=== PATIENT | male | born 1960 | race Caucasian/White ===

== ENCOUNTER 2017-04-18 15:44 | Outpatient (CLI) | payer MEDICAID | END 2017-04-18 15:45 | disposition critical access hospital (66) | LOC: EMS 15:44 | PROVIDERS: ATTEND Surgery | DX: R41.82 Altered mental status, unspecified (principal); R26.81 Unsteadiness on feet; R47.81 Slurred speech; W18.39XA Other fall on same level, initial encounter; Y92.480 Sidewalk as the place of occurrence of the external cause | CPT/HCPCS: A0425; A0429 ==

== ENCOUNTER 2017-04-18 16:00 | Emergency (ER) | payer MEDICAID ==
--- NOTE | 2017-04-18 16:19 | ED Physician Documentation ---
History of Present Illness - Stated complaint Stated Complaint: FALL/ HEAD INJURY - Chief complaint Chief Complaint: General - History obtained from History obtained from: Patient, EMS, Police - History of Present Illness Timing: Today Pain level max: 0 Pain level now: 0 Improved by: nothing Worsened by: nothing - Additonal information Additional information: Patient was talking to police today and reportedly fell backwards striking his head. He denies any injury at this time and states that his head doesn't hurt. States his buttocks is sore from his new wallet. Drank a 6 pack of beer today. States no nausea or vomiting. HR noted to be 140 with EMS, possible afib. States history of COPD. Patient states that he does have a history of atrial fibrillation in the past. Review of Systems Ten Systems: 10 systems reviewed and negative Constitutional: denies: Fever, Chills Ears: denies: Ear pain Nose: denies: Rhinorrhea / runny nose, Congestion Throat: denies: Sore throat Cardiac: denies: Chest pain / pressure Respiratory: denies: Cough GI: denies: Nausea, Vomiting, Diarrhea Skin: denies: Rash Musculoskeletal: denies: Neck pain, Back pain Neurologic: denies: Headache PD PAST MEDICAL HISTORY - Past Medical History Cardiovascular: Atrial fibrillation Respiratory: Shortness of breath Endocrine/Autoimmune: None GI: None : None Psych: Depression Musculoskeletal: None Derm: None - Past Surgical History HEENT: Tonsil/Adenoidectomy - Present Medications Home Medications: Ambulatory Orders Medication Instructions Recorded Confirmed Citalopram [CeleXA] 20 mg ORAL DAILY 07/11/13 07/11/13 - Allergies Allergies/Adverse Reactions: Allergies Allergy/AdvReac Type Severity Reaction Status Date / Time No Known Drug Allergies Allergy Verified 04/18/17 16:10 PD ED PE NORMAL - Vitals Vital signs reviewed: Yes - General General: Alert and oriented X 3, No acute distress - HEENT HEENT: Atraumatic, PERRL, EOMI, Ears normal, Moist mucous membranes, Other ( glossy eyes) - Neck Neck: Supple, no meningeal sign, No bony TTP - Cardiac Cardiac: Other (tachycardic) - Respiratory Respiratory: No respiratory distress, Other (B wheezing) - Abdomen Abdomen: Soft, Non tender, Non distended - Back Back: No spinal TTP - Derm Derm: Warm and dry - Extremities Extremities: Normal ROM s pain, Other (Normal gait) - Neuro Neuro: Alert and oriented X 3 - Psych Psych: Normal mood, Normal affect Results - Vitals Vitals: Vital Signs - 24 hr 04/18/17 04/18/17 04/18/17 16:08 17:34 17:40 Temperature 36.7 C 37.5 C Heart Rate 66 130 H Respiratory 18 22 Rate Blood Pressure 98/73 127/83 H O2 Saturation 96 94 88 L 04/18/17 04/18/17 17:44 18:40 Temperature 36.5 C Heart Rate 87 91 Respiratory 17 19 Rate Blood Pressure 107/72 100/77 O2 Saturation 95 99 Oxygen O2 Source Nasal cannula - EKG (time done) 1610 Rate: Rate (enter#) (135) Rhythm: Atrial fibrillation [place]: LAD, Anterior hemiblock (LAFB) QRS: Normal - Labs Labs: Laboratory Tests 04/18/17 04/18/17 04/18/17 16:30 16:30 16:30 WBC 11.2 H RBC 4.16 L Hgb 14.4 Hct 41.4 L MCV 99.7 H MCH 34.7 H MCHC 34.8 RDW 14.1 Plt Count 224 MPV 8.7 Neut # 9.0 H Lymph # 1.3 L [place] # 0.9 Eos # 0.1 Baso # 0.0 Absolute Nucleated RBC 0.00 Nucleated RBC % 0.0 Sodium 136 Potassium 3.6 Chloride 99 L Carbon Dioxide 24 Anion Gap 13.0 BUN 13 Creatinine 0.8 Estimated GFR (MDRD) 100 Glucose 100 Calcium 8.2 L Total Bilirubin 0.7 AST 53 H ALT 54 Alkaline Phosphatase 64 Troponin I 0.07 Total Protein 7.4 Albumin 4.1 Globulin 3.3 Albumin/Globulin Ratio 1.2 Lipase 40 Urine Opiates Screen Ur Oxycodone Screen Urine Methadone Screen Ur Propoxyphene Screen Ur Barbiturates Screen Ur Tricyclics Screen Ur Phencyclidine Scrn Ur Amphetamine Screen U Methamphetamines Scrn U Benzodiazepines Scrn Urine Cocaine Screen U Cannabinoids Screen Ethyl Alcohol 408.0 04/18/17 17:53 WBC RBC Hgb Hct MCV MCH MCHC RDW Plt Count MPV Neut # Lymph # [place] # Eos # Baso # Absolute Nucleated RBC Nucleated RBC % Sodium Potassium Chloride Carbon Dioxide Anion Gap BUN Creatinine Estimated GFR (MDRD) Glucose Calcium Total Bilirubin AST ALT Alkaline Phosphatase Troponin I Total Protein Albumin Globulin Albumin/Globulin Ratio Lipase Urine Opiates Screen NEGATIVE Ur Oxycodone Screen NEGATIVE Urine Methadone Screen NEGATIVE Ur Propoxyphene Screen NEGATIVE Ur Barbiturates Screen NEGATIVE Ur Tricyclics Screen NEGATIVE Ur Phencyclidine Scrn NEGATIVE Ur Amphetamine Screen NEGATIVE U Methamphetamines Scrn NEGATIVE U Benzodiazepines Scrn NEGATIVE Urine Cocaine Screen NEGATIVE U Cannabinoids Screen POSITIVE H Ethyl Alcohol PD MEDICAL DECISION MAKING - ED course Complexity details: reviewed results, re-evaluated patient, considered differential, d/w patient, d/w family ED course: Patient is a 57-year-old male who presents to the emergency department after a possible fall earlier today. No scalp hematomas. No headache. No vomiting. GCS 15. He is intoxicated. However he ambulates with a steady gait. He is a chronic alcoholic. Found to be in atrial fibrillation with rapid ventricular response. Symptoms resolved with a dose of Cardizem.Patient states that he will follow-up with his doctor for further care. Does not want to be observed any further and wants to go home at this time. Patient counseled regarding signs and symptoms for which I believe and urgent re-evaluation would be necessary. Patient with good understanding of and agreement to plan and is comfortable going home at this time This document was made in part using voice recognition software. While efforts are made to proofread this document, sound alike and grammatical errors may occur. Departure - Departure Disposition: 01 Home, Self Care Clinical Impression: Alcohol intoxication Qualifiers: Complication of substance-induced condition: uncomplicated Qualified Code(s): F10.920 - Alcohol use, unspecified with intoxication, uncomplicated Afib Qualifiers: Atrial fibrillation type: chronic Qualified Code(s): I48.2 - Chronic atrial fibrillation Condition: Good Instructions: ED Afib, ED Alcohol Intoxication Follow-Up: your,doctor in 1 week [Other] Comments: Return if you worsen. Discharge Date/Time: 04/18/17 18:47
[2017-04-18] MEDS ORDERED: SODIUM CHLORIDE 0.9% 1,000 ML IV ONE (16:20)
[2017-04-18] MEDS ORDERED: diltiaZEM INJ 5 MG/ML VIAL IVP STA (16:44)
[2017-04-18 16:49] LABS: ALBUMIN 4.1 g/dL (3.2-5.5); ALBUMIN/GLOBULIN RATIO 1.2 (1.0-2.2); BILIRUBIN,TOTAL 0.7 mg/dL (0.2-1.0); CALCIUM 8.2 mg/dL (8.5-10.3); CREATININE 0.8 mg/dL (0.6-1.2); TOTAL PROTEIN 7.4 g/dL (6.7-8.2)
[2017-04-18 16:52] LABS: BASOPHILS % (AUTO) 0.4 %; EOSINOPHILS # (AUTO) 0.1 10^3/uL (0.0-0.7); EOSINOPHILS % (AUTO) 0.6 %; HGB - HEMOGLOBIN 14.4 g/dL (14.0-18.0); LYMPHOCYTES # (AUTO) 1.3 10^3/uL (1.5-3.5); LYMPHOCYTES % (AUTO) 11.2 %; MEAN CORPUSCULAR HEMOGLOBIN 34.7 pg (27.0-31.0); MEAN CORPUSCULAR HGB CONC 34.8 g/dL (32.0-36.0); MEAN CORPUSCULAR VOLUME 99.7 fL (80.0-94.0); MEAN PLATELET VOLUME 8.7 fL (7.4-11.4); MONOCYTES # (AUTO) 0.9 10^3/uL (0.0-1.0); MONOCYTES % (AUTO) 7.7 %; NEUTROPHILS % (AUTO) 80.1 %; PLT - PLATELET COUNT 224 10^3/uL (130-450); RED BLOOD COUNT 4.16 10^6/uL (4.70-6.10); RED CELL DISTRIBUTION WIDTH 14.1 % (12.0-15.0); WHITE BLOOD COUNT 11.2 x10^3/uL (4.8-10.8)
[2017-04-18 18:11] LABS: MUDS CUTOFF CONCENTRATIONS CUTOFF CONC BELOW:
[2017-04-18 18:32] LABS: AMPHETAMINE SCREEN,URINE NEGATIVE (NEGATIVE); BENZODIAZEPINES SCREEN, URINE NEGATIVE (NEGATIVE); COCAINE SCREEN URINE NEGATIVE (NEGATIVE); METHADONE SCREEN, URINE NEGATIVE (NEGATIVE); METHAMPHETAMINES SCREEN, URINE NEGATIVE (NEGATIVE); OPIATE SCREEN, URINE NEGATIVE (NEGATIVE); OXYCODONE SCREEN, URINE NEGATIVE (NEGATIVE); PROPOXYPHENE SCREEN, URINE NEGATIVE (NEGATIVE); TRICYCLIC ANTIDEPRESSANT,URINE NEGATIVE (NEGATIVE)
[2017-04-18 18:41] VITALS: BP 100/77
== END 2017-04-18 18:47 | disposition home or self-care (01) ==
LOC: EDUNIT# → ED 16:00
DX: F10.229 Alcohol dependence with intoxication, unspecified (principal); I48.2 Chronic atrial fibrillation
CPT/HCPCS: 36415; 80053; 80306; 80307; 80320; 80329; 83690; 84484; 85025; 93005; 96361; 96374; 99284

== ENCOUNTER 2017-04-22 04:26 | Outpatient (CLI) | payer MEDICAID | END 2017-04-22 04:27 | disposition critical access hospital (66) | LOC: EMS 04:26 | PROVIDERS: ATTEND Surgery | DX: R06.02 Shortness of breath (principal); R05 Cough | CPT/HCPCS: A0425; A0427 ==

== ENCOUNTER 2017-04-22 04:43 | Inpatient (IN) | payer MEDICAID ==
[2017-04-22] MEDS ORDERED: ALBUTEROL NEB 2.5 MG/3 ML INH STA (04:51)
--- NOTE | 2017-04-22 05:55 | ED Physician Documentation ---
PD HPI DYSPNEA - Stated complaint Stated Complaint: RESP DISTRESS - Chief complaint Chief Complaint: Resp - History obtained from History obtained from: Patient, EMS - History of Present Illness Timing - onset: Enter time (01:00), Today Timing - onset during: Rest Timing - details: Abrupt onset Pain level max: 0 Pain level now: 0 Improved by: Rest Worsened by: Exertion, Laying flat, Coughing Associated symptoms: Cough, Bilateral edema, Anxiety. No: Chest pain / discomfort Similar symptoms before: Has not had sx before Recently seen: Emergency Dept (T+R from this ED few days ago for head injury, intoxicated, found to be in [facility] tx. with cardizem) - Additional information Additional information: staying at homeless residential, c/o rapid onset dyspnea at rest but worse with exertion and laying flat, onset 1 AM. denies h/o same Review of Systems Constitutional: reports: Reviewed and negative Eyes: reports: Reviewed and negative Ears: reports: Reviewed and negative Nose: reports: Reviewed and negative Throat: reports: Reviewed and negative Cardiac: reports: Pedal edema. denies: Chest pain / pressure, Palpitations Respiratory: reports: Dyspnea, Cough. denies: Hemoptysis, Wheezing GI: reports: Reviewed and negative : denies: Dysuria, Frequency Skin: reports: Reviewed and negative Musculoskeletal: reports: Extremity swelling. denies: Extremity pain Neurologic: reports: Reviewed and negative PD PAST MEDICAL HISTORY - Past Medical History Cardiovascular: Atrial fibrillation Respiratory: Shortness of breath Endocrine/Autoimmune: None GI: None : None Psych: Depression Musculoskeletal: None Derm: None - Past Surgical History HEENT: Tonsil/Adenoidectomy - Present Medications Home Medications: Ambulatory Orders Medication Instructions Recorded Confirmed Citalopram [CeleXA] 40 mg ORAL DAILY 07/11/13 04/22/17 Albuterol Sulfate [Proair Hfa 2 puffs INH Q4H 04/22/17 04/22/17 Inhaler] - Allergies Allergies/Adverse Reactions: Allergies Allergy/AdvReac Type Severity Reaction Status Date / Time No Known Drug Allergies Allergy Verified 04/22/17 04:50 - Social History Does the pt smoke?: Yes Smoking Status: Current every day smoker Does the pt drink ETOH?: Yes PD ED PE NORMAL - Vitals Vital signs reviewed: Yes - General General: Alert and oriented X 3, Well developed/nourished, Other (appears to be mildly dyspneic, abbreviated sentences in conversing) - HEENT HEENT: PERRL, EOMI, Moist mucous membranes - Neck Neck: Supple, no meningeal sign - Cardiac Cardiac: RRR, No murmur - Abdomen Abdomen: Soft, Non tender - Back Back: No CVA TTP - Derm Derm: No rash - Neuro Neuro: Alert and oriented X 3 PD ED PE EXPANDED - Respiratory Respiratory: Rales, Decreased breath sounds, Other (tachypneic) - Extremities Extremities: Pedal edema bilateral Results - Vitals Vitals: Oxygen O2 Source Nasal cannula Oxygen Flow Rate 3 - EKG (time done) No standard instances Rate: Rate (enter#) (132), Tachy Rhythm: Sinus tachycardia [place]: LAD Intervals: Normal ID QRS: Normal Ischemia: Normal ST segments, Q waves (inferior leads, V1-V4) Other comments: Other comments (1 waves noted on previous visit EKG (new in V4, although this could be due to lead placement)) - Labs Labs: Laboratory Tests 04/22/17 04/22/17 04/22/17 06:35 06:59 06:59 WBC 8.3 RBC 4.35 L Hgb 14.5 Hct 43.9 MCV 100.8 H MCH 33.3 H MCHC 33.0 RDW 13.9 Plt Count 222 MPV 8.5 Neut # 7.0 H Lymph # 0.7 L [place] # 0.6 Eos # 0.0 Baso # 0.1 Absolute Nucleated RBC 0.01 Nucleated RBC % 0.1 Sodium 137 Potassium 4.1 Chloride 102 Carbon Dioxide 23 Anion Gap 12.0 BUN 13 Creatinine 0.7 Estimated GFR (MDRD) 117 Glucose 111 H Calcium 8.6 Troponin I B-Natriuretic Peptide Influenza A (Rapid) Negative Influenza B (Rapid) Negative Influenza Types A,B Ag - 04/22/17 04/22/17 06:59 06:59 WBC RBC Hgb Hct MCV MCH MCHC RDW Plt Count MPV Neut # Lymph # [place] # Eos # Baso # Absolute Nucleated RBC Nucleated RBC % Sodium Potassium Chloride Carbon Dioxide Anion Gap BUN Creatinine Estimated GFR (MDRD) Glucose Calcium Troponin I 0.11 B-Natriuretic Peptide 1629 H Influenza A (Rapid) Influenza B (Rapid) Influenza Types A,B Ag - Rads (name of study) chest xray Radiology: Prelim report reviewed, See rad report PD MEDICAL DECISION MAKING - ED course Complexity details: reviewed results, re-evaluated patient, considered differential, d/w patient Departure - Departure Disposition: 66 [facility] DC/Xfer Clinical Impression: Congestive heart failure Qualifiers: Congestive heart failure type: unspecified Congestive heart failure chronicity : acute Qualified Code(s): I50.9 - Heart failure, unspecified Condition: Stable Discharge Date/Time: 04/22/17 10:35
--- NOTE | 2017-04-22 06:38 | XRAY Report ---
EXAM: CHEST RADIOGRAPHY EXAM DATE: 04/22/2017 06:31 AM. CLINICAL HISTORY: Cough, dyspnea. COMPARISON: None. TECHNIQUE: 2 views. FINDINGS: Lungs/Pleura: Large lung volumes consistent with emphysema. Pulmonary vascular congestion and interst itial edema. No definite pleural effusion. No pneumothorax. Mediastinum: Mild cardiomegaly. Aortic atherosclerosis. Other: None. IMPRESSION: 1. Emphysema and cardiomegaly. 2. Pulmonary vascular congestion and interstitial edema. [facility] Referring Provider Line: [phone] SITE ID: [id number]
--- NOTE | 2017-04-22 06:38 | XRAY Preliminary Report ---
Exam: XR CHEST 2 VIEW X-RAY IMPRESSION: 1. Emphysema and cardiomegaly. 2. Pulmonary vascular congestion and interstitial edema. [facility] SITE ID: [id number]
[2017-04-22 07:04] LABS: BASOPHILS # (AUTO) 0.1 10^3/uL (0.0-0.1); BASOPHILS % (AUTO) 0.6 %; EOSINOPHILS % (AUTO) 0.3 %; HGB - HEMOGLOBIN 14.5 g/dL (14.0-18.0); LYMPHOCYTES # (AUTO) 0.7 10^3/uL (1.5-3.5); LYMPHOCYTES % (AUTO) 7.9 %; MEAN CORPUSCULAR HEMOGLOBIN 33.3 pg (27.0-31.0); MEAN CORPUSCULAR VOLUME 100.8 fL (80.0-94.0); MEAN PLATELET VOLUME 8.5 fL (7.4-11.4); MONOCYTES # (AUTO) 0.6 10^3/uL (0.0-1.0); NEUTROPHILS % (AUTO) 84.2 %; PLT - PLATELET COUNT 222 10^3/uL (130-450); RED BLOOD COUNT 4.35 10^6/uL (4.70-6.10); RED CELL DISTRIBUTION WIDTH 13.9 % (12.0-15.0); WHITE BLOOD COUNT 8.3 x10^3/uL (4.8-10.8)
[2017-04-22 07:12] LABS: CALCIUM 8.6 mg/dL (8.5-10.3); CREATININE 0.7 mg/dL (0.6-1.2)
[2017-04-22] MEDS ORDERED: SODIUM CHLORIDE 0.9% 1,000 ML IV ONE (07:16)
[2017-04-22] MEDS ORDERED: LORazepam 2 MG/ML VIAL IVP STA (07:22)
[2017-04-22] MEDS ORDERED: FUROSEMIDE 40 MG/4 ML VIAL IVP STA (08:00)
[2017-04-22] MEDS ORDERED: TEMAZEPAM 15 MG CAPSULE PO PRN (08:16)
[2017-04-22] MEDS ORDERED: oxyCODONE 5 MG TABLET PO PRN (08:16)
[2017-04-22] MEDS ORDERED: PROCHLORPERAZINE 10 MG/2 ML VIAL IVP PRN (08:16)
[2017-04-22] MEDS ORDERED: NITROGLYCERIN 2% PASTE TOP STA (08:17)
--- NOTE | 2017-04-22 10:32 | HISTORY & PHYSICAL EXAMINATION ---
Chief Complaint - Chief Complaint Chief Complaint: Shortness of breath History of Present Illness - Admitted From Admitted From:: Outside (Pt is homeless) - History Obtained From Records Reviewed: yes History obtained from: Patient, Dr. Harley - History of Present Illness HPI Comment/Other: Mr. João Berry is a 57-year-old gentleman who presented to the [facility] emergency department early this morning with complaints of shortness of breath. He was at the emergency department for 5 days days previously with complaints of shortness of breath and chest pain and was found to be in atrial fibrillation. He was discharged home but unfortunately he has continued to get worse and now is back with severe shortness of breath at rest. At the emergency department a chest x-ray found pulmonary vascular congestion, cardiomegaly, and emphysematous changes. A BNP was found to be 1600 and his initial troponin was 0.11. The patient was given bronchodilators and steroids however remains dyspneic on room air and his oxygen saturation has been able to be raised to the low 90s on 3 L. He is also significantly tachycardic and tachypneic with crackles three quarters of the way up through his lungs.He will therefore be admitted to telemetry bed with the diagnosis of congestive heart failure. History - Past Medical History Cardiovascular: reports: Atrial fibrillation Respiratory: reports: COPD, Shortness of breath Endocrine/Autoimmune: reports: None GI: reports: None : reports: None Psych: reports: Depression Musculoskeletal: reports: None Derm: reports: None - Past Surgical History HEENT: reports: Tonsil/Adenoidectomy - Family & Social History Family History: Other family: Alive and Well (The patient was adopted and has no knowledge of his family's medical history.) Family History Comment/Other: Patient was adopted and has no idea of his family's medical history. Living arrangement: Homeless - Substance History Use: Uses substance without health or social issues: Cannabis Abuse: Recurrent use of substance despite neg consequences: Alcohol Abuse Issues: Intoxication Dependence: Experiences withdrawal or developed tolerances: Tobacco Tobacco Details: Cigarettes - POLST Patient has POLST: No POLST Status: Full Code Meds/Allgy - Home Medications Home Medications: Ambulatory Orders Medication Instructions Recorded Confirmed Citalopram [CeleXA] 40 mg ORAL DAILY 07/11/13 04/22/17 Albuterol Sulfate [Proair Hfa 2 puffs INH Q4H 03/14/18 03/14/18 Inhaler] - Allergies Allergies/Adverse Reactions: Allergies Allergy/AdvReac Type Severity Reaction Status Date / Time No Known Drug Allergies Allergy Verified 04/22/17 04:50 Review of Systems - Constitutional Constitutional: reports: Weakness - Eyes Eyes: denies: Pain, Irritation, Blurred vision, Dipolpia - Ears, Nose & Throat Ears, Nose & Throat: denies: Ear pain, Hearing loss, Hearing aids, Tinnitus, Vertigo, Nasal pain, Nasal discharge - Cardiovascular Cariovascular: reports: Irregular heart rate. denies: Palpitations, Chest pain , Edema, Syncope - Respiratory Respiratory: reports: Cough, Sputum production, Wheezing, SOB at rest, SOB with exertion. denies: Snoring, Hemoptysis, Orthopnea - Gastrointestinal Gastrointestinal: denies: Abdominal pain, Abdominal distention, Constipation, Diarrhea, Change in bowel habits, Rectal bleeding - Genitourinary Genitourinary: denies: Dysuria, Frequency, Urgency, Hematuria - Musculoskeletal Musculoskeletal: denies: Muscle pain, Back pain, Muscle aches, Stiffness - Integumentary Integumentary: denies: Rash, Pruritis, Lesions, Dryness - Neurological Neurological: denies: General weakness, Focal weakness, Headache, Dizziness - Psychiatric Psychiatric: denies: Depression, Anxiety, Suicidal, Hallucinations - Endocrine Endocrine: denies: Polyuria, Polydypsia, Polyphagia - Hematologic/Lymphatic Hematologic/Lymphatic: denies: Anemia, Bruising, Petechiae, Lymphadenopathy - All Other Systems All Other Systems: reports: Reviewed and negative Exam - Vital Signs Reviewed Vital Signs: Yes - Physical Exam General Appearance: positive: No acute distress, Alert Eyes Bilateral: positive: Normal inspection, PERRL, EOMI, No lid inflammation, Conjunctivae nml, No scleral icterus ENT: positive: ENT inspection nml, Pharynx nml, No signs of dehydration Neck: positive: Nml inspection, Thyroid nml, No JVD, Trachea midline. negative : Thyromegaly Respiratory: positive: Chest non-tender, No respiratory distress, Breath sounds nml. negative: Wheezes, Rales, Rhonchi Cardiovascular: positive: Regular rate & rhythm, No murmur, No gallop Peripheral Pulses: positive: 2+ Abdomen: positive: Non-tender, No organomegaly, Nml bowel sounds, No distention. negative: Guarding, Rebound Back: positive: Nml inspection. negative: CVA tenderness (R), CVA tenderness (L ) Skin: positive: Color nml, No rash, Warm, Dry. negative: Cyanosis Extremities: positive: Non-tender, Full ROM, Nml appearance, Pedal edema Neurologic/Psychiatric: positive: Oriented x3, CN's nml (2-12), Motor nml, Sensation nml, Mood/affect nml Conclusion/Plan - Problem List (1) Congestive heart failure Conclusion/Plan: New diagnosis, the patient was recently diagnosed with atrial fibrillation and part of this may be the last of his atrial kick. The patient's BNP is elevated , greater than 1600, and chest x-ray shows pulmonary vascular congestion. We will diurese the patient with Lasix and spironolactone and monitor his troponins and BNP. We will start him on cardizem and a beta-cayden for his tachycardia and CHF. Echocardiogram is ordered. Qualifiers: Congestive heart failure type: unspecified Congestive heart failure chronicity: acute Qualified Code(s): I50.9 - Heart failure, unspecified (2) COPD (chronic obstructive pulmonary disease) with emphysema Conclusion/Plan: The patient has a long history of emphysema, greater than 7 years. This particular hospitalization appears to be more cardiac related however. We will start the patient on bronchodilators and supplemental oxygen as needed. (3) Afib Conclusion/Plan: Newly diagnosed several days ago, will give the patient a dose of Cardizem IV and start him on metoprolol for rate control. Qualifiers: Atrial fibrillation type: chronic Qualified Code(s): I48.2 - Chronic atrial fibrillation - Lab Results Lab results reviewed: Yes [place]: 04/22/17 06:59 04/22/17 06:59 - Diagnostic Imaging Results Diagnostic Imaging Results: positive: Final report reviewed Diagnostic Imaging Results Comments: EXAM: CHEST RADIOGRAPHY EXAM DATE: 04/22/2017 06:31 AM. CLINICAL HISTORY: Cough, dyspnea. COMPARISON: None. TECHNIQUE: 2 views. FINDINGS: Lungs/Pleura: Large lung volumes consistent with emphysema. Pulmonary vascular congestion and interstitial edema. No definite pleural effusion. No pneumothorax. Mediastinum: Mild cardiomegaly. Aortic atherosclerosis. Other: None. IMPRESSION: 1. Emphysema and cardiomegaly. 2. Pulmonary vascular congestion and interstitial edema. - EKG Results EKG Interpreted Independently: Yes Core Measures - Anticipated LOS I expect patient to be DC'd or transferred within 96 hours.: Yes - DVT/VTE - Prophylaxis VTE/DVT Device ordered at admit?: Yes
[2017-04-22] MEDS ORDERED: diltiaZEM INJ 5 MG/ML VIAL IVP STA (11:06)
[2017-04-22] MEDS: POLYETHYLENE GLYCOL 3350 17 GM PACKET PO SCH (11:06)
[2017-04-22] MEDS: CITALOPRAM 10 MG TABLET PO SCH (11:41)
[2017-04-22] MEDS: METOPROLOL TARTRATE 50 MG TABLET PO SCH ×2 (11:42→21:19)
[2017-04-22] MEDS: SODIUM CHLORIDE FLUSH 0.9% 10 ML SYRINGE IVP SCH ×3 (11:43→21:20)
[2017-04-22] MEDS: SPIRONOLACTONE 25 MG TABLET PO SCH (11:43)
[2017-04-22] MEDS: FUROSEMIDE 20 MG TABLET PO SCH (12:08)
[2017-04-22] MEDS: IPRATROPIUM/ALBUTEROL 3 ML NEB INH SCH ×3 (12:38→21:35)
[2017-04-23] MEDS: SODIUM CHLORIDE FLUSH 0.9% 10 ML SYRINGE IVP SCH ×4 (01:00→23:04)
[2017-04-23 05:21] LABS: HGB - HEMOGLOBIN 14.4 g/dL (14.0-18.0); MEAN CORPUSCULAR HEMOGLOBIN 33.3 pg (27.0-31.0); MEAN CORPUSCULAR HGB CONC 33.1 g/dL (32.0-36.0); MEAN CORPUSCULAR VOLUME 100.6 fL (80.0-94.0); RED BLOOD COUNT 4.33 10^6/uL (4.70-6.10); RED CELL DISTRIBUTION WIDTH 14.1 % (12.0-15.0); WHITE BLOOD COUNT 9.3 x10^3/uL (4.8-10.8)
[2017-04-23 05:25] LABS: CALCIUM 8.4 mg/dL (8.5-10.3); CREATININE 0.8 mg/dL (0.6-1.2)
[2017-04-23] MEDS: IPRATROPIUM/ALBUTEROL 3 ML NEB INH SCH ×4 (07:46→20:21)
[2017-04-23] MEDS: CITALOPRAM 10 MG TABLET PO SCH (09:53)
[2017-04-23] MEDS: FUROSEMIDE 20 MG TABLET PO SCH (09:53)
[2017-04-23] MEDS: SPIRONOLACTONE 25 MG TABLET PO SCH (09:54)
[2017-04-23] MEDS: METOPROLOL TARTRATE 50 MG TABLET PO SCH ×2 (09:54→20:18)
[2017-04-23] MEDS: POLYETHYLENE GLYCOL 3350 17 GM PACKET PO SCH (09:56)
--- NOTE | 2017-04-23 12:43 | PROVIDER PROGRESS NOTE ---
Subjective - Prog Note Date Prog Note Date: 04/23/17 Prog Note Time: 11:00 - Subjective Pt reports feeling: Improved (Patient is less short of breath but still does have some chest achiness. He has been eating and moving his bowels, denies any fever or chills.He says he slept poorly last night.) Current Medications - Current Medications Current Medications: Citalopram, furosemide, DuoNeb, metoprolol, oxycodone, polyethylene glycol, Compazine, sodium chloride, spironolactone, temazepam Objective - Vital Signs/Intake & Output Reviewed Vital Signs: Yes Vital Signs: Vital Signs x48h Temp Pulse Pulse Resp BP BP Pulse Ox 04/23/17 11:23 108 H 20 04/23/17 09:54 122/86 H 04/23/17 08:00 36.6 C 95 18 122/86 H 99 04/23/17 07:46 102 H 18 04/23/17 04:44 36.8 C 100 20 117/88 H 98 Intake & Output: Intake & Output 04/20/17 04/21/17 04/22/17 04/23/17 23:59 23:59 23:59 23:59 Intake Total 1120 420 Output Total 1300 Balance -180 420 - Objective General Appearance: positive: No acute distress, Alert Eyes Bilateral: positive: Normal inspection, PERRL, EOMI, No lid inflammation, Conjunctivae nml, No scleral icterus ENT: positive: ENT inspection nml, Pharynx nml, No signs of dehydration Neck: positive: Nml inspection, Thyroid nml, No JVD, Trachea midline. negative : Thyromegaly Respiratory: positive: Chest non-tender, No respiratory distress, Breath sounds nml. negative: Wheezes, Rales, Rhonchi Cardiovascular: positive: Regular rate & rhythm, No murmur, No gallop Abdomen: positive: Non-tender, No organomegaly, Nml bowel sounds, No distention. negative: Guarding, Rebound Back: positive: Nml inspection. negative: CVA tenderness (R), CVA tenderness (L ) Skin: positive: Color nml, No rash, Warm, Dry. negative: Cyanosis Extremities: positive: Non-tender, Full ROM, Nml appearance, No pedal edema Neurologic/Psychiatric: positive: Oriented x3, CN's nml (2-12), Motor nml, Sensation nml, Mood/affect nml - Lab Results [place]: 04/23/17 04:38 04/23/17 04:38 Other Labs: Lab Results x24hrs 04/23/17 04/23/17 04/23/17 Range/Units 04:38 04:38 04:38 WBC 9.3 (4.8-10.8) x10^3/uL RBC 4.33 L (4.70-6.10) 10^6/uL Hgb 14.4 (14.0-18.0) g/dL Hct 43.6 (42.0-52.0) % MCV 100.6 H (80.0-94.0) fL MCH 33.3 H (27.0-31.0) pg MCHC 33.1 (32.0-36.0) g/dL RDW 14.1 (12.0-15.0) % Plt Count 196 (130-450) 10^3/uL MPV 9.0 (7.4-11.4) fL Sodium 135 (135-145) mmol/L Potassium 3.9 (3.5-5.0) mmol/L Chloride 99 L (101-111) mmol/L Carbon Dioxide 25 (21-32) mmol/L Anion Gap 11.0 (6-13) BUN 19 (6-20) mg/dL Creatinine 0.8 (0.6-1.2) mg/dL Estimated GFR (MDRD) 100 (>89) Glucose 105 H (70-100) mg/dL Calcium 8.4 L (8.5-10.3) mg/dL Troponin I (<0.49) ng/mL B-Natriuretic Peptide 6027.0 H (5-100) pg/mL 04/22/17 Range/Units 12:58 WBC (4.8-10.8) x10^3/uL RBC (4.70-6.10) 10^6/uL Hgb (14.0-18.0) g/dL Hct (42.0-52.0) % MCV (80.0-94.0) fL MCH (27.0-31.0) pg MCHC (32.0-36.0) g/dL RDW (12.0-15.0) % Plt Count (130-450) 10^3/uL MPV (7.4-11.4) fL Sodium (135-145) mmol/L Potassium (3.5-5.0) mmol/L Chloride (101-111) mmol/L Carbon Dioxide (21-32) mmol/L Anion Gap (6-13) BUN (6-20) mg/dL Creatinine (0.6-1.2) mg/dL Estimated GFR (MDRD) (>89) Glucose (70-100) mg/dL Calcium (8.5-10.3) mg/dL Troponin I 0.12 (<0.49) ng/mL B-Natriuretic Peptide (5-100) pg/mL - Diagnostic Imaging Diagnostic Imaging Results: positive: Final report reviewed Diagnostic Imaging Comments: EXAM: CHEST RADIOGRAPHY EXAM DATE: 04/22/2017 06:31 AM. CLINICAL HISTORY: Cough, dyspnea. COMPARISON: None. TECHNIQUE: 2 views. FINDINGS: Lungs/Pleura: Large lung volumes consistent with emphysema. Pulmonary vascular congestion and interstitial edema. No definite pleural effusion. No pneumothorax. Mediastinum: Mild cardiomegaly. Aortic atherosclerosis. Other: None. IMPRESSION: 1. Emphysema and cardiomegaly. 2. Pulmonary vascular congestion and interstitial edema. Assessment/Plan - Problem List (1) Congestive heart failure Impression: Newly diagnosed, The patient's BNP went from [id number] overnight. This is most likely due to the patient's significant tachycardia. Troponins were negative. Continue diuresis, await results of echocardiogram. Qualifiers: Congestive heart failure type: unspecified Congestive heart failure chronicity: acute Qualified Code(s): I50.9 - Heart failure, unspecified (2) COPD (chronic obstructive pulmonary disease) with emphysema Impression: Well-managed, no evidence of acute exacerbation at this time. We will give the patient bronchodilators as needed and address any other issues as they arise. Continue supplemental oxygen. (3) Afib Impression: The patient was diagnosed with atrial fibrillation last week in the emergency department. At that time he converted with a dose of diltiazem. He also had atrial fibrillation on presentation to the emergency department during this admission. At this time the patient has converted back to normal sinus rhythm and has not had any new issues on his EKG. Qualifiers: Atrial fibrillation type: chronic Qualified Code(s): I48.2 - Chronic atrial fibrillation
--- NOTE | 2017-04-23 13:29 | XRAY Report ---
TWO VIEW CHEST: 04/23/2017 COMPARISON: Two view chest 04/22/2017. INDICATION: CHF and COPD. TECHNIQUE: Two views. FINDINGS: There are large lung volumes. Stable cardiomegaly. Mild unchanged pulmonary vascular congestion and interstitial edema. No pneumothorax or pleural effusion. IMPRESSION: UNCHANGED APPEARANCE OF THE CHEST. COPD AND MILD CHF. TD: 04/23/2017 13:29 MTDD
[2017-04-23] MEDS: ASPIRIN 325 MG TABLET PO SCH (23:03)
[2017-04-23] MEDS: LISINOPRIL 5 MG TABLET PO SCH (23:04)
[2017-04-23] MEDS: FUROSEMIDE 40 MG/4 ML VIAL IVP SCH (23:04)
[2017-04-24] MEDS: SODIUM CHLORIDE FLUSH 0.9% 10 ML SYRINGE IVP SCH ×3 (00:01→21:44)
[2017-04-24 01:57] LABS: CALCIUM 8.6 mg/dL (8.5-10.3); CREATININE 0.9 mg/dL (0.6-1.2); MAGNESIUM 1.5 mg/dL (1.7-2.8)
[2017-04-24] MEDS ORDERED: MAGNESIUM SULFATE 2 GRAM 2 GM/50 ML BAG IV ONE ×2 (03:07→04:10)
[2017-04-24] MEDS: SODIUM CHLORIDE FLUSH 0.9% 10 ML SYRINGE IVP PRN ×4 (03:38→15:14)
[2017-04-24] MEDS: FUROSEMIDE 40 MG/4 ML VIAL IVP SCH ×2 (05:58→15:12)
[2017-04-24 06:06] LABS: HGB - HEMOGLOBIN 14.6 g/dL (14.0-18.0); MEAN CORPUSCULAR HEMOGLOBIN 33.8 pg (27.0-31.0); MEAN CORPUSCULAR HGB CONC 33.4 g/dL (32.0-36.0); MEAN CORPUSCULAR VOLUME 101.1 fL (80.0-94.0); MEAN PLATELET VOLUME 9.2 fL (7.4-11.4); RED BLOOD COUNT 4.32 10^6/uL (4.70-6.10); RED CELL DISTRIBUTION WIDTH 13.8 % (12.0-15.0); WHITE BLOOD COUNT 9.6 x10^3/uL (4.8-10.8)
[2017-04-24 06:09] LABS: CALCIUM 8.6 mg/dL (8.5-10.3); CREATININE 0.8 mg/dL (0.6-1.2)
[2017-04-24 06:16] LABS: CHOLESTEROL 159 mg/dL; HDL CHOLESTEROL 79 mg/dL; LDL CHOLESTEROL,CALCULATED 64 mg/dL; LDL/HDL RATIO 0.8 (<3.6); VLDL CHOLESTEROL 16 mg/dL
[2017-04-24] MEDS: ASPIRIN 325 MG TABLET PO SCH (11:15)
[2017-04-24] MEDS: CITALOPRAM 10 MG TABLET PO SCH (11:16)
[2017-04-24] MEDS: METOPROLOL TARTRATE 50 MG TABLET PO SCH (11:18)
[2017-04-24] MEDS: LISINOPRIL 5 MG TABLET PO SCH (11:18)
[2017-04-24] MEDS: SPIRONOLACTONE 25 MG TABLET PO SCH (11:19)
[2017-04-24] MEDS: POLYETHYLENE GLYCOL 3350 17 GM PACKET PO SCH (11:20)
[2017-04-24] MEDS: IPRATROPIUM/ALBUTEROL 3 ML NEB INH SCH ×4 (11:41→20:30)
--- NOTE | 2017-04-24 13:07 | PROVIDER PROGRESS NOTE ---
Subjective - Prog Note Date Prog Note Date: 04/24/17 Prog Note Time: 11:20 - Subjective Pt reports feeling: No change (The patient is still having difficulty with breathing off of supplemental oxygen. He needs to go up from 2 L to 4 L yesterday but is back down to 2 L today.He has difficult time sleeping in the hospital because he is interrupted constantly and denies any pain. He also denies any fevers or chills. He has been eating small amounts of food throughout the day and cannot eat a large meal at one sitting.) Current Medications - Current Medications Current Medications: Citalopram, furosemide, DuoNeb, metoprolol, oxycodone, polyethylene glycol, Compazine, sodium chloride, spironolactone, temazepam, Aspirin, magnesium, lisinopril Objective - Vital Signs/Intake & Output Reviewed Vital Signs: Yes Vital Signs: Vital Signs x48h Temp Pulse Pulse Resp BP BP Pulse Ox 04/24/17 11:43 88 18 04/24/17 11:18 107/86 H 04/24/17 08:53 36.5 C 92 18 107/86 H 99 Intake & Output: Intake & Output 04/21/17 04/22/17 04/23/17 04/24/17 23:59 23:59 23:59 23:59 Intake Total 1120 620 220 Output Total 1300 400 500 Balance -180 220 -280 - Objective General Appearance: positive: Alert, Mild distress Eyes Bilateral: positive: Normal inspection, PERRL, EOMI, No lid inflammation, Conjunctivae nml, No scleral icterus ENT: positive: ENT inspection nml, Pharynx nml, No signs of dehydration Neck: positive: Nml inspection, Thyroid nml, No JVD, Trachea midline. negative : Thyromegaly Respiratory: positive: Chest non-tender, No respiratory distress, Breath sounds nml. negative: Wheezes, Rales, Rhonchi Cardiovascular: positive: Regular rate & rhythm, No murmur, No gallop Abdomen: positive: Non-tender, No organomegaly, Nml bowel sounds, No distention. negative: Guarding, Rebound Back: positive: Nml inspection. negative: CVA tenderness (R), CVA tenderness (L ) Skin: positive: Color nml, No rash, Warm, Dry. negative: Cyanosis Extremities: positive: Non-tender, Full ROM, Nml appearance Neurologic/Psychiatric: positive: Oriented x3, CN's nml (2-12), Motor nml, Sensation nml, Mood/affect nml - Lab Results Fish Bones: 04/24/17 05:23 04/24/17 05:23 Other Labs: Lab Results x24hrs 04/24/17 04/24/17 04/24/17 Range/Units 05:23 05:23 05:23 WBC (4.8-10.8) x10^3/uL RBC (4.70-6.10) 10^6/uL Hgb (14.0-18.0) g/dL Hct (42.0-52.0) % MCV (80.0-94.0) fL MCH (27.0-31.0) pg MCHC (32.0-36.0) g/dL RDW (12.0-15.0) % Plt Count (130-450) 10^3/uL MPV (7.4-11.4) fL Sodium 132 L (135-145) mmol/L Potassium 3.5 (3.5-5.0) mmol/L Chloride 93 L (101-111) mmol/L Carbon Dioxide 24 (21-32) mmol/L Anion Gap 15.0 H (6-13) BUN 24 H (6-20) mg/dL Creatinine 0.8 (0.6-1.2) mg/dL Estimated GFR (MDRD) 100 (>89) Glucose 149 H (70-100) mg/dL Calcium 8.6 (8.5-10.3) mg/dL Magnesium (1.7-2.8) mg/dL B-Natriuretic Peptide 6489.0 H (5-100) pg/mL Triglycerides 78 ( - 149) mg/dL Cholesterol 159 ( - 199) mg/dL LDL Cholesterol, Calc 64 ( - 129) mg/dL VLDL Cholesterol 16 mg/dL HDL Cholesterol 79 (60 - ) mg/dL LDL/HDL Ratio 0.8 (<3.6) Cholesterol/HDL Ratio 2.0 (<5.0) 04/24/17 04/24/17 Range/Units 05:23 01:40 WBC 9.6 (4.8-10.8) x10^3/uL RBC 4.32 L (4.70-6.10) 10^6/uL Hgb 14.6 (14.0-18.0) g/dL Hct 43.7 (42.0-52.0) % MCV 101.1 H (80.0-94.0) fL MCH 33.8 H (27.0-31.0) pg MCHC 33.4 (32.0-36.0) g/dL RDW 13.8 (12.0-15.0) % Plt Count 187 (130-450) 10^3/uL MPV 9.2 (7.4-11.4) fL Sodium 133 L (135-145) mmol/L Potassium 3.8 (3.5-5.0) mmol/L Chloride 93 L (101-111) mmol/L Carbon Dioxide 27 (21-32) mmol/L Anion Gap 13.0 (6-13) BUN 24 H (6-20) mg/dL Creatinine 0.9 (0.6-1.2) mg/dL Estimated GFR (MDRD) 87 L (>89) Glucose 170 H (70-100) mg/dL Calcium 8.6 (8.5-10.3) mg/dL Magnesium 1.5 L (1.7-2.8) mg/dL B-Natriuretic Peptide (5-100) pg/mL Triglycerides ( - 149) mg/dL Cholesterol ( - 199) mg/dL LDL Cholesterol, Calc ( - 129) mg/dL VLDL Cholesterol mg/dL HDL Cholesterol (60 - ) mg/dL LDL/HDL Ratio (<3.6) Cholesterol/HDL Ratio (<5.0) - Diagnostic Imaging Diagnostic Imaging Results: positive: Final report reviewed Diagnostic Imaging Comments: EXAM: CHEST RADIOGRAPHY EXAM DATE: 04/22/2017 06:31 AM. CLINICAL HISTORY: Cough, dyspnea. COMPARISON: None. TECHNIQUE: 2 views. FINDINGS: Lungs/Pleura: Large lung volumes consistent with emphysema. Pulmonary vascular congestion and interstitial edema. No definite pleural effusion. No pneumothorax. Mediastinum: Mild cardiomegaly. Aortic atherosclerosis. Other: None. IMPRESSION: 1. Emphysema and cardiomegaly. 2. Pulmonary vascular congestion and interstitial edema. Assessment/Plan - Problem List (1) Congestive heart failure Impression: Newly diagnosed, unsure of etiology but the patient does have a long-standing history of COPD so cor pulmonale may be a component. An echocardiogram showed severe hypokinesis with an ejection fraction estimated to be less than 20%. The patient's BNP continues to rise and is at 6400 today. We have added lisinopril and aspirin to his medication regimen and are correcting his hypomagnesemia but otherwise are monitoring the patient and diuresing him at this time. Qualifiers: Congestive heart failure type: unspecified Congestive heart failure chronicity: acute Qualified Code(s): I50.9 - Heart failure, unspecified (2) COPD (chronic obstructive pulmonary disease) with emphysema Impression: There does not appear to be a COPD component to the patient's current medical issues. Continue duonebs as needed. (3) Afib Impression: The patient was diagnosed with atrial fibrillation last week in the emergency department. At that time he converted with a dose of diltiazem. He also had atrial fibrillation on presentation to the emergency department during this admission. At this time the patient has converted back to normal sinus rhythm and has not had any new issues on his EKG. Qualifiers: Atrial fibrillation type: chronic Qualified Code(s): I48.2 - Chronic atrial fibrillation
[2017-04-24] MEDS: IBUPROFEN 600 MG TABLET PO PRN (21:54)
[2017-04-25] MEDS: FUROSEMIDE 40 MG/4 ML VIAL IVP SCH ×2 (05:37→13:07)
[2017-04-25] MEDS: SODIUM CHLORIDE FLUSH 0.9% 10 ML SYRINGE IVP SCH ×4 (05:38→19:52)
[2017-04-25 06:31] LABS: HGB - HEMOGLOBIN 14.8 g/dL (14.0-18.0); MEAN CORPUSCULAR HEMOGLOBIN 33.4 pg (27.0-31.0); MEAN CORPUSCULAR VOLUME 101.2 fL (80.0-94.0); MEAN PLATELET VOLUME 10.1 fL (7.4-11.4); RED BLOOD COUNT 4.43 10^6/uL (4.70-6.10); RED CELL DISTRIBUTION WIDTH 13.9 % (12.0-15.0); WHITE BLOOD COUNT 13.1 x10^3/uL (4.8-10.8)
[2017-04-25 06:37] LABS: CALCIUM 8.6 mg/dL (8.5-10.3); CREATININE 1.1 mg/dL (0.6-1.2)
[2017-04-25] MEDS: IPRATROPIUM/ALBUTEROL 3 ML NEB INH SCH ×4 (08:25→20:30)
[2017-04-25] MEDS: ASPIRIN 325 MG TABLET PO SCH (08:33)
[2017-04-25] MEDS: CITALOPRAM 10 MG TABLET PO SCH (08:34)
[2017-04-25] MEDS: METOPROLOL SUCCINATE 25 MG TABLET PO SCH (08:34)
[2017-04-25] MEDS: LISINOPRIL 5 MG TABLET PO SCH (08:35)
[2017-04-25] MEDS: POLYETHYLENE GLYCOL 3350 17 GM PACKET PO SCH (08:35)
[2017-04-25] MEDS: SPIRONOLACTONE 25 MG TABLET PO SCH (09:42)
--- NOTE | 2017-04-25 12:21 | PROVIDER PROGRESS NOTE ---
Subjective - Prog Note Date Prog Note Date: 04/25/17 Prog Note Time: 11:00 - Subjective Pt reports feeling: No change (The patient still dyspneic with exertion and requires oxygen at rest. He denies any fevers, chills, new pain, diarrhea or constipation. He is eating small amounts of food with each meal.) Current Medications - Current Medications Current Medications: Citalopram, furosemide, DuoNeb, metoprolol, oxycodone, polyethylene glycol, Compazine, sodium chloride, spironolactone, temazepam, Aspirin, magnesium, lisinopril Objective - Vital Signs/Intake & Output Reviewed Vital Signs: Yes Vital Signs: Vital Signs x48h Temp Pulse Pulse Resp BP Pulse Ox 04/25/17 11:46 36.6 C 72 18 113/79 99 04/25/17 08:25 99 16 04/25/17 08:00 36.7 C 77 16 99/81 H 100 Intake & Output: Intake & Output 04/22/17 04/23/17 04/24/17 04/25/17 23:59 23:59 23:59 23:59 Intake Total 1120 620 745 360 Output Total 4795 212 8709 325 Balance -180 220 -545 35 - Objective General Appearance: positive: No acute distress, Alert Eyes Bilateral: positive: Normal inspection, PERRL, EOMI, No lid inflammation, Conjunctivae nml, No scleral icterus ENT: positive: ENT inspection nml, Pharynx nml, No signs of dehydration Neck: positive: Nml inspection, Thyroid nml, No JVD, Trachea midline. negative : Thyromegaly Respiratory: positive: Chest non-tender, No respiratory distress, Breath sounds nml, Other (Lung sounds are very diminished in all cuello). negative: Wheezes, Rales, Rhonchi Cardiovascular: positive: Regular rate & rhythm, No murmur, No gallop Abdomen: positive: Non-tender, No organomegaly, Nml bowel sounds, No distention. negative: Guarding, Rebound Back: positive: Nml inspection. negative: CVA tenderness (R), CVA tenderness (L ) Skin: positive: Color nml, No rash, Warm, Dry. negative: Cyanosis Extremities: positive: Non-tender, Full ROM, Nml appearance, No pedal edema Neurologic/Psychiatric: positive: Oriented x3, CN's nml (2-12), Motor nml, Sensation nml, Mood/affect nml - Lab Results Fish Bones: 04/25/17 05:41 04/25/17 05:41 Other Labs: Lab Results x24hrs 04/25/17 04/25/17 04/25/17 Range/Units 05:41 05:41 05:41 WBC 13.1 H (4.8-10.8) x10^3/uL RBC 4.43 L (4.70-6.10) 10^6/uL Hgb 14.8 (14.0-18.0) g/dL Hct 44.8 (42.0-52.0) % MCV 101.2 H (80.0-94.0) fL MCH 33.4 H (27.0-31.0) pg MCHC 33.0 (32.0-36.0) g/dL RDW 13.9 (12.0-15.0) % Plt Count 189 (130-450) 10^3/uL MPV 10.1 (7.4-11.4) fL Sodium 131 L (135-145) mmol/L Potassium 3.9 (3.5-5.0) mmol/L Chloride 92 L (101-111) mmol/L Carbon Dioxide 28 (21-32) mmol/L Anion Gap 11.0 (6-13) BUN 35 H (6-20) mg/dL Creatinine 1.1 (0.6-1.2) mg/dL Estimated GFR (MDRD) 69 L (>89) Glucose 104 H (70-100) mg/dL Calcium 8.6 (8.5-10.3) mg/dL B-Natriuretic Peptide 3805 H (5-100) pg/mL - Diagnostic Imaging Diagnostic Imaging Results: positive: Final report reviewed Diagnostic Imaging Comments: EXAM: CHEST RADIOGRAPHY EXAM DATE: 04/22/2017 06:31 AM. CLINICAL HISTORY: Cough, dyspnea. COMPARISON: None. TECHNIQUE: 2 views. FINDINGS: Lungs/Pleura: Large lung volumes consistent with emphysema. Pulmonary vascular congestion and interstitial edema. No definite pleural effusion. No pneumothorax. Mediastinum: Mild cardiomegaly. Aortic atherosclerosis. Other: None. IMPRESSION: 1. Emphysema and cardiomegaly. 2. Pulmonary vascular congestion and interstitial edema. Assessment/Plan - Problem List (1) Congestive heart failure Impression: Newly diagnosed, unsure of etiology but the patient does have a long-standing history of COPD so cor pulmonale may be a component. An echocardiogram showed severe hypokinesis with an ejection fraction estimated to be less than 20%. The patient's BNP Is finally starting to drop and is gone from 6400 yesterday to 3805 today. We have added lisinopril and aspirin to his medication regimen and are correcting his hypomagnesemia but otherwise are monitoring the patient and diuresing him at this time. Qualifiers: Congestive heart failure type: unspecified Congestive heart failure chronicity: acute Qualified Code(s): I50.9 - Heart failure, unspecified (2) COPD (chronic obstructive pulmonary disease) with emphysema Impression: There does not appear to be a COPD component to the patient's current medical issues. Continue duonebs as needed. (3) Afib Impression: The patient was diagnosed with atrial fibrillation last week in the emergency department. At that time he converted with a dose of diltiazem. He also had atrial fibrillation on presentation to the emergency department during this admission. At this time the patient has converted back to normal sinus rhythm and has not had any new episodes of atrial fibrillation. Qualifiers: Atrial fibrillation type: chronic Qualified Code(s): I48.2 - Chronic atrial fibrillation
[2017-04-25] MEDS: IBUPROFEN 600 MG TABLET PO PRN (19:49)
--- NOTE | 2017-04-25 19:55 | XRAY Preliminary Report ---
Exam: XR CHEST 1 VIEW X-RAY IMPRESSION: Moderate cardiomegaly. [facility] SITE ID: [id number]
--- NOTE | 2017-04-25 19:56 | XRAY Report ---
EXAM: CHEST RADIOGRAPHY EXAM DATE: 04/25/2017 01:44 PM. CLINICAL HISTORY: Difficulty breathing, cough, hypoxia COMPARISON: 04/23/2017. TECHNIQUE: 1 view. FINDINGS: Lungs/Pleura: No focal opacities evident. No pleural effusion. No pneumothorax. Mediastinum: Moderate cardiomegaly is present. The mediastinal contour is otherwise normal. Other: None. IMPRESSION: Moderate cardiomegaly. [facility] Referring Provider Line: [phone] SITE ID: [id number]
[2017-04-26] MEDS: SODIUM CHLORIDE FLUSH 0.9% 10 ML SYRINGE IVP SCH ×3 (06:21→18:52)
[2017-04-26 06:48] LABS: HGB - HEMOGLOBIN 14.2 g/dL (14.0-18.0); MEAN CORPUSCULAR HEMOGLOBIN 33.8 pg (27.0-31.0); MEAN CORPUSCULAR HGB CONC 33.5 g/dL (32.0-36.0); MEAN CORPUSCULAR VOLUME 100.8 fL (80.0-94.0); MEAN PLATELET VOLUME 9.8 fL (7.4-11.4); RED BLOOD COUNT 4.21 10^6/uL (4.70-6.10); RED CELL DISTRIBUTION WIDTH 13.6 % (12.0-15.0); WHITE BLOOD COUNT 8.7 x10^3/uL (4.8-10.8)
[2017-04-26 06:55] LABS: CALCIUM 8.4 mg/dL (8.5-10.3); CREATININE 0.7 mg/dL (0.6-1.2); MAGNESIUM 2.1 mg/dL (1.7-2.8)
[2017-04-26] MEDS: IPRATROPIUM/ALBUTEROL 3 ML NEB INH SCH ×4 (08:00→19:50)
[2017-04-26] MEDS: IBUPROFEN 600 MG TABLET PO PRN ×2 (08:41→18:51)
[2017-04-26] MEDS: FUROSEMIDE 20 MG TABLET PO SCH ×2 (08:41→13:17)
[2017-04-26] MEDS: ASPIRIN 325 MG TABLET PO SCH (08:41)
[2017-04-26] MEDS: LISINOPRIL 5 MG TABLET PO SCH (08:41)
[2017-04-26] MEDS: SPIRONOLACTONE 25 MG TABLET PO SCH (08:42)
[2017-04-26] MEDS: CITALOPRAM 10 MG TABLET PO SCH (08:42)
[2017-04-26] MEDS: METOPROLOL SUCCINATE 25 MG TABLET PO SCH (08:42)
[2017-04-26] MEDS: POLYETHYLENE GLYCOL 3350 17 GM PACKET PO SCH (08:44)
--- NOTE | 2017-04-26 10:54 | PROVIDER PROGRESS NOTE ---
Subjective - Prog Note Date Prog Note Date: 04/26/17 Prog Note Time: 10:20 - Subjective Pt reports feeling: Improved (The patient has come off of supplemental oxygen for the first time this morning and his oxygen saturation is in the mid 90s on room air. He is feeling a little more energy but also notes that he gets very dyspneic with exertion. He is eating and moving his bowels, and denies any fever or chills.) Current Medications - Current Medications Current Medications: Citalopram, furosemide, DuoNeb, metoprolol, oxycodone, polyethylene glycol, Compazine, sodium chloride, spironolactone, temazepam, Aspirin, magnesium, lisinopril Objective - Vital Signs/Intake & Output Reviewed Vital Signs: Yes Vital Signs: Vital Signs x48h Temp Pulse Pulse Resp BP Pulse Ox 04/26/17 08:00 36.7 C 78 62 20 118/97 H 99 04/26/17 04:00 36.6 C 95 16 94/79 99 Intake & Output: Intake & Output 04/23/17 04/24/17 04/25/17 04/26/17 23:59 23:59 23:59 23:59 Intake Total 546 222 7743 120 Output Total 400 1290 325 325 Balance 220 -032 945 -205 - Objective General Appearance: positive: No acute distress Eyes Bilateral: positive: Normal inspection, PERRL, EOMI, No lid inflammation, Conjunctivae nml, No scleral icterus ENT: positive: ENT inspection nml, Pharynx nml, No signs of dehydration Neck: positive: Nml inspection, Thyroid nml, No JVD, Trachea midline. negative : Thyromegaly Respiratory: positive: Chest non-tender, No respiratory distress, Breath sounds nml. negative: Wheezes, Rales, Rhonchi Cardiovascular: positive: Regular rate & rhythm, No murmur, No gallop Abdomen: positive: Non-tender, No organomegaly, Nml bowel sounds, No distention. negative: Guarding, Rebound Back: positive: Nml inspection. negative: CVA tenderness (R), CVA tenderness (L ) Skin: positive: Color nml, No rash, Warm, Dry. negative: Cyanosis Extremities: positive: Non-tender, Full ROM, Nml appearance, No pedal edema Neurologic/Psychiatric: positive: Oriented x3, CN's nml (2-12), Motor nml, Sensation nml, Mood/affect nml - Lab Results Fish Bones: 04/26/17 06:05 04/26/17 06:05 Other Labs: Lab Results x24hrs 04/26/17 04/26/17 04/26/17 Range/Units 06:05 06:05 06:05 WBC 8.7 (4.8-10.8) x10^3/uL RBC 4.21 L (4.70-6.10) 10^6/uL Hgb 14.2 (14.0-18.0) g/dL Hct 42.5 (42.0-52.0) % MCV 100.8 H (80.0-94.0) fL MCH 33.8 H (27.0-31.0) pg MCHC 33.5 (32.0-36.0) g/dL RDW 13.6 (12.0-15.0) % Plt Count 174 (130-450) 10^3/uL MPV 9.8 (7.4-11.4) fL Sodium 133 L (135-145) mmol/L Potassium 3.3 L (3.5-5.0) mmol/L Chloride 93 L (101-111) mmol/L Carbon Dioxide 30 (21-32) mmol/L Anion Gap 10.0 (6-13) BUN 35 H (6-20) mg/dL Creatinine 0.7 (0.6-1.2) mg/dL Estimated GFR (MDRD) 117 (>89) Glucose 103 H (70-100) mg/dL Calcium 8.4 L (8.5-10.3) mg/dL Magnesium 2.1 (1.7-2.8) mg/dL B-Natriuretic Peptide 2161 H (5-100) pg/mL - Diagnostic Imaging Diagnostic Imaging Results: positive: Final report reviewed Diagnostic Imaging Comments: EXAM: CHEST RADIOGRAPHY EXAM DATE: 04/25/2017 01:44 PM. CLINICAL HISTORY: Difficulty breathing, cough, hypoxia COMPARISON: 04/23/2017. TECHNIQUE: 1 view. FINDINGS: Lungs/Pleura: No focal opacities evident. No pleural effusion. No pneumothorax. Mediastinum: Moderate cardiomegaly is present. The mediastinal contour is otherwise normal. Other: None. IMPRESSION: Moderate cardiomegaly. Assessment/Plan - Problem List (1) Congestive heart failure Impression: Newly diagnosed, unsure of etiology but the patient does have a long-standing history of COPD so cor pulmonale may be a component. An echocardiogram showed severe hypokinesis with an ejection fraction estimated to be less than 20%. The patient's BNP Is finally starting to drop and is gone from 6489 at its highest to 3805 yesterday to 2161 today. We have added lisinopril and aspirin to his medication regimen and are correcting his hypomagnesemia but otherwise are monitoring the patient and diuresing him at this time. If he remains stable over the next 24 hours we will consider discharge tomorrow. Qualifiers: Congestive heart failure type: unspecified Congestive heart failure chronicity: acute Qualified Code(s): I50.9 - Heart failure, unspecified (2) COPD (chronic obstructive pulmonary disease) with emphysema Impression: There does not appear to be a COPD component to the patient's current medical hospitalization. Continue duo nebs as needed. (3) Afib Impression: The patient was diagnosed with atrial fibrillation last week in the emergency department. At that time he converted with a dose of diltiazem. He also had atrial fibrillation on presentation to the emergency department during this admission. At this time the patient has converted back to normal sinus rhythm and has not had any new episodes of atrial fibrillation. Qualifiers: Atrial fibrillation type: chronic Qualified Code(s): I48.2 - Chronic atrial fibrillation
[2017-04-27] MEDS: SODIUM CHLORIDE FLUSH 0.9% 10 ML SYRINGE IVP SCH ×3 (01:51→17:51)
[2017-04-27] MEDS: IBUPROFEN 600 MG TABLET PO PRN ×3 (02:22→20:56)
[2017-04-27] MEDS: FUROSEMIDE 20 MG TABLET PO SCH ×2 (05:38→13:09)
[2017-04-27] MEDS: POLYETHYLENE GLYCOL 3350 17 GM PACKET PO SCH (08:30)
[2017-04-27 08:34] LABS: HGB - HEMOGLOBIN 15.1 g/dL (14.0-18.0); MEAN CORPUSCULAR HEMOGLOBIN 34.5 pg (27.0-31.0); MEAN CORPUSCULAR HGB CONC 34.1 g/dL (32.0-36.0); MEAN CORPUSCULAR VOLUME 101.4 fL (80.0-94.0); MEAN PLATELET VOLUME 9.6 fL (7.4-11.4); RED BLOOD COUNT 4.36 10^6/uL (4.70-6.10); RED CELL DISTRIBUTION WIDTH 13.9 % (12.0-15.0); WHITE BLOOD COUNT 9.8 x10^3/uL (4.8-10.8)
[2017-04-27] MEDS: LISINOPRIL 5 MG TABLET PO SCH (08:40)
[2017-04-27] MEDS: ASPIRIN 325 MG TABLET PO SCH (08:40)
[2017-04-27] MEDS: CITALOPRAM 10 MG TABLET PO SCH (08:40)
[2017-04-27 08:41] LABS: CALCIUM 8.8 mg/dL (8.5-10.3); CREATININE 0.8 mg/dL (0.6-1.2)
[2017-04-27] MEDS: SPIRONOLACTONE 25 MG TABLET PO SCH (08:41)
[2017-04-27] MEDS: METOPROLOL SUCCINATE 25 MG TABLET PO SCH (08:41)
[2017-04-27] MEDS: IPRATROPIUM/ALBUTEROL 3 ML NEB INH SCH ×5 (09:10→19:07)
--- NOTE | 2017-04-27 14:39 | PROVIDER PROGRESS NOTE ---
Subjective - Prog Note Date Prog Note Date: 04/27/17 Prog Note Time: 12:20 - Subjective Pt reports feeling: Improved Subjective: The patient remains on room air. He is ambulating more and is experiencing more exercise tolerance. He denies any fever or chills. He is eating and moving his bowels. Current Medications - Current Medications Current Medications: Citalopram, furosemide, DuoNeb, metoprolol, oxycodone, polyethylene glycol, Compazine, sodium chloride, spironolactone, temazepam, Aspirin, magnesium, lisinopril Objective - Vital Signs/Intake & Output Reviewed Vital Signs: Yes Vital Signs: Vital Signs x48h Temp Pulse Pulse Resp BP Pulse Ox 04/27/17 13:35 36.5 C 89 19 96/81 H 100 04/27/17 09:10 95 18 04/27/17 08:00 36.7 C 66 18 90/76 100 Intake & Output: Intake & Output 04/24/17 04/25/17 04/26/17 04/27/17 23:59 23:59 23:59 23:59 Intake Total 745 1070 840 836 Output Total 1290 325 325 Balance -545 745 515 836 - Objective General Appearance: positive: No acute distress, Alert Eyes Bilateral: positive: Normal inspection, PERRL, EOMI, No lid inflammation, Conjunctivae nml, No scleral icterus ENT: positive: ENT inspection nml, Pharynx nml, No signs of dehydration Neck: positive: Nml inspection, Thyroid nml, No JVD, Trachea midline. negative : Thyromegaly Respiratory: positive: Chest non-tender, No respiratory distress, Breath sounds nml. negative: Wheezes, Rales, Rhonchi Cardiovascular: positive: Regular rate & rhythm, No murmur, No gallop Abdomen: positive: Non-tender, No organomegaly, Nml bowel sounds, No distention. negative: Guarding, Rebound Back: positive: Nml inspection. negative: CVA tenderness (R), CVA tenderness (L ) Skin: positive: Color nml, No rash, Warm, Dry. negative: Cyanosis Extremities: positive: Non-tender, Full ROM, Nml appearance, No pedal edema Neurologic/Psychiatric: positive: Oriented x3, CN's nml (2-12), Motor nml, Sensation nml, Mood/affect nml - Lab Results Fish Bones: 04/27/17 08:27 04/27/17 08:27 Other Labs: Lab Results x24hrs 04/27/17 04/27/17 04/27/17 Range/Units 08:27 08:27 08:27 WBC 9.8 (4.8-10.8) x10^3/uL RBC 4.36 L (4.70-6.10) 10^6/uL Hgb 15.1 (14.0-18.0) g/dL Hct 44.2 (42.0-52.0) % MCV 101.4 H (80.0-94.0) fL MCH 34.5 H (27.0-31.0) pg MCHC 34.1 (32.0-36.0) g/dL RDW 13.9 (12.0-15.0) % Plt Count 195 (130-450) 10^3/uL MPV 9.6 (7.4-11.4) fL Sodium 133 L (135-145) mmol/L Potassium 4.1 (3.5-5.0) mmol/L Chloride 92 L (101-111) mmol/L Carbon Dioxide 31 (21-32) mmol/L Anion Gap 10.0 (6-13) BUN 31 H (6-20) mg/dL Creatinine 0.8 (0.6-1.2) mg/dL Estimated GFR (MDRD) 100 (>89) Glucose 120 H (70-100) mg/dL Calcium 8.8 (8.5-10.3) mg/dL B-Natriuretic Peptide 2045 H (5-100) pg/mL - Diagnostic Imaging Diagnostic Imaging Results: positive: Final report reviewed Diagnostic Imaging Comments: EXAM: CHEST RADIOGRAPHY EXAM DATE: 04/25/2017 01:44 PM. CLINICAL HISTORY: Difficulty breathing, cough, hypoxia COMPARISON: 04/23/2017. TECHNIQUE: 1 view. FINDINGS: Lungs/Pleura: No focal opacities evident. No pleural effusion. No pneumothorax. Mediastinum: Moderate cardiomegaly is present. The mediastinal contour is otherwise normal. Other: None. IMPRESSION: Moderate cardiomegaly. Assessment/Plan - Problem List (1) Congestive heart failure Impression: Newly diagnosed, unsure of etiology but the patient does have a long-standing history of COPD so cor pulmonale may be a component. An echocardiogram showed severe hypokinesis with an ejection fraction estimated to be less than 20%. The patient's BNP Is finally starting to drop and is gone from 6489 at its highest to 3805 Thursday to 2045 today. We have added lisinopril and aspirin to his medication regimen and are correcting his hypomagnesemia but otherwise are monitoring the patient and diuresing him at this time. If he remains stable over the next 24 hours we will consider discharge tomorrow. Qualifiers: Congestive heart failure type: unspecified Congestive heart failure chronicity: acute Qualified Code(s): I50.9 - Heart failure, unspecified (2) COPD (chronic obstructive pulmonary disease) with emphysema Impression: There does not appear to be a COPD component to the patient's current medical hospitalization. Continue duo nebs as needed. (3) Afib Impression: The patient was diagnosed with atrial fibrillation last week in the emergency department. At that time he converted with a dose of diltiazem. He also had atrial fibrillation on presentation to the emergency department during this admission. At this time the patient has converted back to normal sinus rhythm and has not had any new episodes of atrial fibrillation. Qualifiers: Atrial fibrillation type: chronic Qualified Code(s): I48.2 - Chronic atrial fibrillation
[2017-04-28] MEDS: SODIUM CHLORIDE FLUSH 0.9% 10 ML SYRINGE IVP SCH ×2 (01:16→08:34)
[2017-04-28] MEDS: FUROSEMIDE 20 MG TABLET PO SCH (05:35)
[2017-04-28] MEDS: SPIRONOLACTONE 25 MG TABLET PO SCH (08:33)
[2017-04-28] MEDS: CITALOPRAM 10 MG TABLET PO SCH (08:33)
[2017-04-28] MEDS: LISINOPRIL 5 MG TABLET PO SCH (08:33)
[2017-04-28] MEDS: ASPIRIN 325 MG TABLET PO SCH (08:34)
[2017-04-28] MEDS: POLYETHYLENE GLYCOL 3350 17 GM PACKET PO SCH (08:34)
[2017-04-28] MEDS: METOPROLOL SUCCINATE 25 MG TABLET PO SCH (08:34)
[2017-04-28] MEDS: IPRATROPIUM/ALBUTEROL 3 ML NEB INH SCH (09:10)
--- NOTE | 2017-04-28 10:29 | Discharge Plan ---
Discharge Plan Disposition: Home, Self Care Condition: Fair Prescriptions: Albuterol Sulfate [Proair Hfa Inhaler] 2 puffs INH Q4H #1 hfa.aer.ad Aspirin [Aspirin EC] 81 mg PO DAILY #30 tablet. Citalopram [CeleXA] 40 mg ORAL DAILY #30 tablet Furosemide [Lasix] 20 mg PO BIDDIURETIC #30 tablet Lisinopril [Zestril] 2.5 mg PO DAILY #30 tablet Metoprolol Succinate [Toprol Xl] 25 mg PO DAILY #30 tablet Spironolactone [Aldactone] 50 mg PO DAILY #30 tablet Diet: Low Sodium (Restrict to 2 grams of sodium and 2L of fluid daily) Activity Restrictions: Activity as Tolerated Shower Restrictions: No Driving Restrictions: No Weight Bearing: Full Weight Additional Instructions or Follow Up instructions: Please make an appointment to follow up with Dr Canas within the next week. Please take all medications as prescribed to you. You have a new diagnosis of congestive heart failure and will need a referral to a transportation operations manager. No Smoking: If you smoke, Please STOP! Call for help. Follow-up with: Basilio Canas MD [Credentialed Staff Provider] -
--- NOTE | 2017-04-28 10:37 | DISCHARGE SUMMARY ---
Discharge Summary Admit Date: 04/22/17 Discharge Date: 04/28/17 Discharging Provider: Kevin Shin MD Primary Care Provider: Basilio Canas MD Condition at Discharge: Fair Discharge Disposition: 01 Home, Self Care - DIAGNOSES Admission Diagnoses: 1. Acute congestive heart failure, unspecified 2. Chronic obstructive pulmonary disease with emphysema 3. Atrial fibrillation Discharge Diagnoses with Status of Each Condition: 1. Acute systolic heart failure: Stable 2. Exacerbation of chronic obstructive pulmonary disease with emphysema: Stable 3. Paroxysmal atrial fibrillation: Stable 4. Tobacco abuse: Stable - HPI History of Present Illness: Mr. João Berry is a 57-year-old gentleman who presented to the [facility] emergency department early this morning with complaints of shortness of breath. He was at the emergency department for 5 days days previously with complaints of shortness of breath and chest pain and was found to be in atrial fibrillation. He was discharged home but unfortunately he has continued to get worse and now is back with severe shortness of breath at rest. At the emergency department a chest x-ray found pulmonary vascular congestion, cardiomegaly, and emphysematous changes. A BNP was found to be 1600 and his initial troponin was 0.11. The patient was given bronchodilators and steroids however remains dyspneic on room air and his oxygen saturation has been able to be raised to the low 90s on 3 L. He is also significantly tachycardic and tachypneic with crackles three quarters of the way up through his lungs.He will therefore be admitted to telemetry bed with the diagnosis of congestive heart failure. - HOSPITAL COURSE Hospital Course: On admission to the hospital the patient was started on IV Lasix, spironolactone , Cardizem and metoprolol. The patient's echocardiogram revealed overall left ventricular systolic function of less than 20%. Over the course of the next several days the patient's pulmonary edema improved significantly. The patient' s oxygen requirement decreased and he was back onto room air. Patient was able to ambulate 30-40 feet without any shortness of air. The patient's Lasix was changed to oral and he appeared stable from a congestive heart failure standpoint. Patient was given education on congestive heart failure and advised to follow a low-salt diet with a fluid restriction. The patient's heart rhythm converted to sinus rhythm with IV Cardizem. For the remainder of the hospitalization the patient's heart rate was controlled and he remained in sinus rhythm. Patients rate remained controlled with metoprolol alone and he was started on aspirin for prevention of CVA. He was not placed on anticoagulation as his CHADS2 score was only 1. At the time of discharge the patient was optimized on medical treatment for congestive heart failure with metoprolol, lisinopril, spironolactone and Lasix. The patient appeared stable from a respiratory standpoint. The patient's breathing also seemed to improve with the use of nebulizer treatments. Patient had no further wheezing or crackles on examination. The patient appeared euvolemic at the time of discharge. The patient was advised to follow-up with his primary care physician Dr. Canas within the next week. The patient will also need referral for cardiology as he does need an ischemic workup for his newly diagnosed congestive heart failure. The patient was advised to quit smoking. The patient was given prescriptions for all his new medications as well as for an albuterol inhaler. The patient is homeless and was given resources from social work. The patient was discharged in stable condition. - ALLERGIES Allergies/Adverse Reactions: Allergies Allergy/AdvReac Type Severity Reaction Status Date / Time No Known Drug Allergies Allergy Verified 04/22/17 04:50 - MEDICATIONS Home Medications: Ambulatory Orders Medication Instructions Recorded Confirmed Albuterol Sulfate [Proair Hfa 2 puffs INH Q4H #1 hfa.aer.ad 04/28/17 Inhaler] Aspirin [Aspirin EC] 81 mg PO DAILY #30 tablet. 04/28/17 Citalopram [CeleXA] 40 mg ORAL DAILY #30 tablet 04/28/17 Furosemide [Lasix] 20 mg PO BIDDIURETIC #30 tablet 04/28/17 Lisinopril [Zestril] 2.5 mg PO DAILY #30 tablet 04/28/17 Metoprolol Succinate [Toprol Xl] 25 mg PO DAILY #30 tablet 04/28/17 Spironolactone [Aldactone] 50 mg PO DAILY #30 tablet 04/28/17 - PHYSICAL EXAM AT DISCHARGE General Appearance: positive: No acute distress, Alert Eyes Bilateral: positive: Normal inspection, PERRL, EOMI, No lid inflammation, Conjunctivae nml, No scleral icterus ENT: positive: ENT inspection nml, Pharynx nml, No signs of dehydration. negative: Purulent nasal drainage, Pharyngeal erythema, Oral lesions Neck: positive: Nml inspection, Thyroid nml, No JVD, Trachea midline. negative : Lymphadenopathy (R), Lymphadenopathy (L), Carotid bruit, Tracheal deviation Respiratory: positive: Chest non-tender, No respiratory distress, Wheezes (Mild , scattered). negative: Rales, Rhonchi Cardiovascular: positive: Regular rate & rhythm, No murmur, No gallop, Systolic murmur Peripheral Pulses: positive: 2+ Abdomen: positive: Non-tender, No organomegaly, Nml bowel sounds, No distention. negative: Guarding, Rebound, Hepatomegaly Back: positive: Nml inspection. negative: CVA tenderness (R), CVA tenderness (L ) Skin: positive: Color nml, No rash, Warm Extremities: positive: Non-tender, Full ROM, Nml appearance, No pedal edema Neurologic/Psychiatric: positive: Oriented x3, CN's nml (2-12), Motor nml, Sensation nml, Mood/affect nml - LABS Result Diagrams: 04/27/17 08:27 04/27/17 08:27 Other Lab Results: Laboratory Results WBC 9.8 x10^3/uL (4.8-10.8) 04/27/17 08:27 RBC 4.36 10^6/uL (4.70-6.10) L 04/27/17 08:27 Hgb 15.1 g/dL (14.0-18.0) 04/27/17 08:27 Hct 44.2 % (42.0-52.0) 04/27/17 08:27 MCV 101.4 fL (80.0-94.0) H 04/27/17 08:27 MCH 34.5 pg (27.0-31.0) H 04/27/17 08:27 MCHC 34.1 g/dL (32.0-36.0) 04/27/17 08:27 RDW 13.9 % (12.0-15.0) 04/27/17 08:27 Plt Count 195 10^3/uL (130-450) 04/27/17 08:27 MPV 9.6 fL (7.4-11.4) 04/27/17 08:27 Neut # 7.0 10^3/uL (1.5-6.6) H 04/22/17 06:59 Lymph # 0.7 10^3/uL (1.5-3.5) L 04/22/17 06:59 [place] # 0.6 10^3/uL (0.0-1.0) 04/22/17 06:59 Eos # 0.0 10^3/uL (0.0-0.7) 04/22/17 06:59 Baso # 0.1 10^3/uL (0.0-0.1) 04/22/17 06:59 Absolute Nucleated RBC 0.01 x10^3/uL 04/22/17 06:59 Nucleated RBC % 0.1 /100WBC 04/22/17 06:59 Sodium 133 mmol/L (135-145) L 04/27/17 08:27 Potassium 4.1 mmol/L (3.5-5.0) 04/27/17 08:27 Chloride 92 mmol/L (101-111) L 04/27/17 08:27 Carbon Dioxide 31 mmol/L (21-32) 04/27/17 08:27 Anion Gap 10.0 (6-13) 04/27/17 08:27 BUN 31 mg/dL (6-20) H 04/27/17 08:27 Creatinine 0.8 mg/dL (0.6-1.2) 04/27/17 08:27 Estimated GFR (MDRD) 100 (>89) 04/27/17 08:27 Glucose 120 mg/dL (70-100) H 04/27/17 08:27 Calcium 8.8 mg/dL (8.5-10.3) 04/27/17 08:27 Magnesium 2.1 mg/dL (1.7-2.8) 04/26/17 06:05 Troponin I 0.12 ng/mL (<0.49) 04/22/17 12:58 B-Natriuretic Peptide 2045 pg/mL (5-100) H 04/27/17 08:27 Triglycerides 78 mg/dL (-149) 04/24/17 05:23 Cholesterol 159 mg/dL (-199) 04/24/17 05:23 LDL Cholesterol, Calc 64 mg/dL (-129) 04/24/17 05:23 VLDL Cholesterol 16 mg/dL 04/24/17 05:23 HDL Cholesterol 79 mg/dL (60-) 04/24/17 05:23 LDL/HDL Ratio 0.8 (<3.6) 04/24/17 05:23 Cholesterol/HDL Ratio 2.0 (<5.0) 04/24/17 05:23 Influenza A (Rapid) Negative (Negative) 04/22/17 06:35 Influenza B (Rapid) Negative (Negative) 04/22/17 06:35 Influenza Types A,B Ag - 04/22/17 06:35 - DIAGNOSTIC IMAGING Diagnostic Imaging Results: Final report reviewed Diagnostic Imaging Results Comments: EXAM: CHEST RADIOGRAPHY EXAM DATE: 04/25/2017 01:44 PM. CLINICAL HISTORY: Difficulty breathing, cough, hypoxia COMPARISON: 04/23/2017. TECHNIQUE: 1 view. FINDINGS: Lungs/Pleura: No focal opacities evident. No pleural effusion. No pneumothorax. Mediastinum: Moderate cardiomegaly is present. The mediastinal contour is otherwise normal. Other: None. IMPRESSION: Moderate cardiomegaly. EXAM: [id number] XR/CXR2VW ([id number]) TWO VIEW CHEST: 04/23/2017 COMPARISON: Two view chest 04/22/2017. INDICATION: CHF and COPD. TECHNIQUE: Two views. FINDINGS: There are large lung volumes. Stable cardiomegaly. Mild unchanged pulmonary vascular congestion and interstitial edema. No pneumothorax or pleural effusion. IMPRESSION: UNCHANGED APPEARANCE OF THE CHEST. COPD AND MILD CHF. EXAM: CHEST RADIOGRAPHY EXAM DATE: 04/22/2017 06:31 AM. CLINICAL HISTORY: Cough, dyspnea. COMPARISON: None. TECHNIQUE: 2 views. FINDINGS: Lungs/Pleura: Large lung volumes consistent with emphysema. Pulmonary vascular congestion and interstitial edema. No definite pleural effusion. No pneumothorax. Mediastinum: Mild cardiomegaly. Aortic atherosclerosis. Other: None. IMPRESSION: 1. Emphysema and cardiomegaly. 2. Pulmonary vascular congestion and interstitial edema. Echocardiogram Conclusions: 1. Moderate left ventricular enlargement 2. Overall left ventricular systolic function is severely impaired with an ejection fraction of less than 20% 3. Severe increase in the left atrial volume index 4. Moderate right atrial enlargement 5. There is moderate mitral regurgitation 6. Mild to moderate tricuspid regurgitation 7. Mild abnormal right heart pressures - FOLLOW UP Follow Up: Patient is being discharged with optimal treatment for congestive heart failure including metoprolol, lisinopril, spironolactone and Lasix. The patient was given education on diet and fluid restriction and need for medication compliance and follow-up. Patient was advised to quit smoking. The patient will follow up with his primary care physician in the next week and will need a referral to cardiology for further workup for his congestive heart failure. The patient converted back to sinus rhythm from atrial fibrillation and will be continued on metoprolol for rate control and aspirin but was not started on anticoagulation due to a chads2 score of only 1. - TIME SPENT Time Spent in Discharge (Minutes): 75
[2017-04-28 11:14] VITALS: BP 136/73
== END 2017-04-28 12:00 | disposition home or self-care (01) | DRG 293 ==
LOC: EDUNIT# → ED 04:43 → MS2 08:17
PROVIDERS: ADMIT Hospitalist; ATTEND Internal Medicine
DX: I50.21 Acute systolic (congestive) heart failure (principal); I48.0 Paroxysmal atrial fibrillation; J43.9 Emphysema, unspecified; E83.42 Hypomagnesemia; F17.210 Nicotine dependence, cigarettes, uncomplicated; F10.129 Alcohol abuse with intoxication, unspecified; Z59.0 Homelessness
CPT/HCPCS: 36415; 71045; 71046; 80048; 80061; 83721; 83735; 83880; 84484; 85025; 87275; 87276; 93005; 93306; 94640; 96361; 96374; 99283; 99284; 99285

== ENCOUNTER 2017-04-29 00:14 | Emergency (ER) | payer MEDICAID ==
[2017-04-29] MEDS ORDERED: IPRATROPIUM/ALBUTEROL 3 ML NEB INH STA (00:24)
--- NOTE | 2017-04-29 00:30 | ED Physician Documentation ---
PD HPI DYSPNEA - Stated complaint Stated Complaint: SHORTNESS OF BREATH - History obtained from History obtained from: Patient - History of Present Illness Timing - onset: Today Timing - onset during: Light activity, Exertion Timing - details: Gradual onset, Still present Inciting event(s): Exposure (ie smoke) Improved by: Rest Worsened by: Exertion Associated symptoms: No: Fever, Cough, Hemoptysis, Wheezing Similar symptoms before: Work up / diagnostics, Treatment Recently seen: Admitted - Additional information Additional information: Patient is a 57 year old male with a history of copd and chf (ef 20%) who is presenting to the emergency department for shortness of breath. patient was admitted to the hospital about a week ago for shortness of breath. patient was optimized and discharged today. patient states that he filled his medications [facility] the [facility] because he would not sign a medical release form. Patient states that he got short of breath walking here from the bus stop. Patient did not use his inhaler but he did smoke cigarettes today. Review of Systems Constitutional: denies: Fever, Chills Eyes: reports: Reviewed and negative Ears: reports: Reviewed and negative Nose: reports: Reviewed and negative Throat: reports: Reviewed and negative Cardiac: denies: Chest pain / pressure, Palpitations Respiratory: reports: Dyspnea, Cough, Wheezing GI: denies: Nausea, Vomiting : reports: Reviewed and negative Skin: denies: Rash, Lesions Musculoskeletal: denies: Back pain Neurologic: reports: Reviewed and negative PD PAST MEDICAL HISTORY - Past Medical History Cardiovascular: Atrial fibrillation Respiratory: Shortness of breath Neuro: None Endocrine/Autoimmune: None GI: None : None Psych: Depression Musculoskeletal: None Derm: None - Past Surgical History Past Surgical History: Yes HEENT: Tonsil/Adenoidectomy - Present Medications Home Medications: Ambulatory Orders Medication Instructions Recorded Confirmed Albuterol Sulfate [Proair Hfa 2 puffs INH Q4H #1 hfa.aer.ad 04/28/17 Inhaler] Aspirin [Aspirin EC] 81 mg PO DAILY #30 tablet. 04/28/17 Citalopram [CeleXA] 40 mg ORAL DAILY #30 tablet 04/28/17 Furosemide [Lasix] 20 mg PO BIDDIURETIC #30 tablet 04/28/17 Lisinopril [Zestril] 2.5 mg PO DAILY #30 tablet 04/28/17 Metoprolol Succinate [Toprol Xl] 25 mg PO DAILY #30 tablet 04/28/17 Spironolactone [Aldactone] 50 mg PO DAILY #30 tablet 04/28/17 - Allergies Allergies/Adverse Reactions: Allergies Allergy/AdvReac Type Severity Reaction Status Date / Time No Known Drug Allergies Allergy Verified 04/22/17 04:50 - Social History Does the pt smoke?: Yes Smoking Status: Current every day smoker Does the pt drink ETOH?: Yes Does the pt have substance abuse?: Yes - POLST Patient has POLST: No POLST Status: Full Code PD ED PE NORMAL - Vitals Vital signs reviewed: Yes - General General: Alert and oriented X 3 - HEENT HEENT: Atraumatic - Cardiac Cardiac: RRR, No murmur - Abdomen Abdomen: Soft - Derm Derm: Normal color - Extremities Extremities: No deformity, No edema - Neuro Neuro: Alert and oriented X 3, No motor deficit, Normal speech Eye Opening: Spontaneous Motor: Obeys Commands Verbal: Oriented GCS Score: 15 PD ED PE EXPANDED - General General: Disheveled, poorly kept - HEENT HEENT: Dry mucous membranes - Respiratory Respiratory: Wheezing (minimal wheezing). No: Accessory mm use Results - Vitals Vitals: Vital Signs - 24 hr 04/29/17 04/29/17 04/29/17 00:15 00:43 01:18 Temperature 35.8 C L Heart Rate 93 92 93 Respiratory 17 16 18 Rate Blood Pressure 132/93 H 108/91 H O2 Saturation 100 96 Oxygen O2 Source Room air - EKG (time done) 0029 Rate: Rate (enter#) (90) Rhythm: NSR [place]: LAD QRS: LVH Ischemia: Q waves Compare to prior EKG: Old EKG unavailable - Labs Labs: Laboratory Tests 04/29/17 04/29/17 04/29/17 00:30 00:30 00:30 WBC 11.1 H RBC 4.35 L Hgb 14.8 Hct 43.8 MCV 100.8 H MCH 34.2 H MCHC 33.9 RDW 13.8 Plt Count 248 MPV 9.7 Neut # 8.1 H Lymph # 1.4 L [place] # 1.4 H Eos # 0.1 Baso # 0.1 Absolute Nucleated RBC 0.00 Nucleated RBC % 0.0 Sodium 129 L Potassium 3.9 Chloride 91 L Carbon Dioxide 25 Anion Gap 13.0 BUN 25 H Creatinine 0.8 Estimated GFR (MDRD) 100 Glucose 85 Calcium 8.8 Phosphorus 4.0 Magnesium 2.1 Total Bilirubin 0.3 AST 30 ALT 45 Alkaline Phosphatase 63 Troponin I 0.06 B-Natriuretic Peptide Total Protein 7.8 Albumin 4.2 Globulin 3.6 Albumin/Globulin Ratio 1.2 Lipase 46 Ethyl Alcohol 119.9 04/29/17 00:30 WBC RBC Hgb Hct MCV MCH MCHC RDW Plt Count MPV Neut # Lymph # [place] # Eos # Baso # Absolute Nucleated RBC Nucleated RBC % Sodium Potassium Chloride Carbon Dioxide Anion Gap BUN Creatinine Estimated GFR (MDRD) Glucose Calcium Phosphorus Magnesium Total Bilirubin AST ALT Alkaline Phosphatase Troponin I B-Natriuretic Peptide 2129 H Total Protein Albumin Globulin Albumin/Globulin Ratio Lipase Ethyl Alcohol - Rads (name of study) chest x-ray Radiology: Final report received, EMP read contemporaneously (large lung volumes , peribronchial thickening, possible edema, stable) PD MEDICAL DECISION MAKING - ED course Complexity details: reviewed old records, reviewed results, re-evaluated patient , considered differential, d/w patient ED course: Patient was seen and examined at bedside. patient was minimally short of breath but he had just walked a significant distance. ekg was performed and was unchanged. IV access was gained and labs were drawn. patient was treated with a nebulizer treatment. chest x-ray was performed and showed no signs of overt failure. while patient has many comorbities there was no acute decompensation. patient's presentation was likely more social than medical. patient required no admission at this time and was stable for discharge in the morning when he could take a bus. Departure - Departure Disposition: 01 Home, Self Care Clinical Impression: Congestive heart failure Condition: Good Instructions: Heart Failure Dc Follow-Up: Ranulfo Mccormick PA-C [Primary Care Provider] - Comments: Your diagnostics today, showed no new acute findings. Your multiple conditions seem to be stable. it is important to stay on your medication management as a decompensation of any of your conditions could lead to serious negative outcome. You should follow up with your doctor. you may return to the emergency department at any time for new worsening or uncontrollable symptoms.
[2017-04-29 00:48] LABS: BASOPHILS # (AUTO) 0.1 10^3/uL (0.0-0.1); BASOPHILS % (AUTO) 0.7 %; EOSINOPHILS # (AUTO) 0.1 10^3/uL (0.0-0.7); EOSINOPHILS % (AUTO) 1.3 %; HGB - HEMOGLOBIN 14.8 g/dL (14.0-18.0); LYMPHOCYTES # (AUTO) 1.4 10^3/uL (1.5-3.5); LYMPHOCYTES % (AUTO) 12.6 %; MEAN CORPUSCULAR HEMOGLOBIN 34.2 pg (27.0-31.0); MEAN CORPUSCULAR HGB CONC 33.9 g/dL (32.0-36.0); MEAN CORPUSCULAR VOLUME 100.8 fL (80.0-94.0); MEAN PLATELET VOLUME 9.7 fL (7.4-11.4); MONOCYTES # (AUTO) 1.4 10^3/uL (0.0-1.0); MONOCYTES % (AUTO) 12.2 %; NEUTROPHILS # (AUTO) 8.1 10^3/uL (1.5-6.6); NEUTROPHILS % (AUTO) 73.2 %; PLT - PLATELET COUNT 248 10^3/uL (130-450); RED BLOOD COUNT 4.35 10^6/uL (4.70-6.10); RED CELL DISTRIBUTION WIDTH 13.8 % (12.0-15.0); WHITE BLOOD COUNT 11.1 x10^3/uL (4.8-10.8)
[2017-04-29 00:53] LABS: ALBUMIN 4.2 g/dL (3.2-5.5); ALBUMIN/GLOBULIN RATIO 1.2 (1.0-2.2); BILIRUBIN,TOTAL 0.3 mg/dL (0.2-1.0); CALCIUM 8.8 mg/dL (8.5-10.3); CREATININE 0.8 mg/dL (0.6-1.2); MAGNESIUM 2.1 mg/dL (1.7-2.8); TOTAL PROTEIN 7.8 g/dL (6.7-8.2)
[2017-04-29 01:20] VITALS: BP 108/91
--- NOTE | 2017-04-29 01:26 | XRAY Report ---
EXAM: CHEST RADIOGRAPHY EXAM DATE: 04/29/2017 01:07 AM. CLINICAL HISTORY: Shortness of breath, history of heart failure. COMPARISON: 04/25/2017. TECHNIQUE: 2 views. FINDINGS: Lungs/Pleura: Large lung volumes. Bronchial wall thickening. Possible pulmonary vascular congestion. No pleural effusion seen. No pneumothorax. Mediastinum: Mild to moderate cardiomegaly. Other: None. IMPRESSION: 1. Cardiomegaly with large lung volumes and possible pulmonary vascular congestion. 2. Bronchial wall thickening. This can be seen with bronchitis or reactive airways disease. [facility] Referring Provider Line: [phone] SITE ID: [id number]
--- NOTE | 2017-04-29 01:26 | XRAY Preliminary Report ---
Exam: XR CHEST 2 VIEW X-RAY IMPRESSION: 1. Cardiomegaly with large lung volumes and possible pulmonary vascular congestion. 2. Bronchial wall thickening. This can be seen with bronchitis or reactive airways disease. [facility] SITE ID: [id number]
== END 2017-04-29 01:50 | disposition home or self-care (01) ==
LOC: ED 00:14
DX: I50.9 Heart failure, unspecified (principal); J44.9 Chronic obstructive pulmonary disease, unspecified; R94.31 Abnormal electrocardiogram [ECG] [EKG]; F17.200 Nicotine dependence, unspecified, uncomplicated; Z79.82 Long term (current) use of aspirin; Z59.0 Homelessness
CPT/HCPCS: 36415; 71046; 80053; 80320; 83690; 83735; 83880; 84100; 84484; 85025; 93005; 94640; 99283; 99284

== ENCOUNTER 2017-09-03 09:58 | Outpatient (CLI) | payer MEDICAID | END 2017-09-03 09:59 | LOC: LAB.N 09:58 | PROVIDERS: ATTEND Physician Assistant Medical | DX: Z79.01 Long term (current) use of anticoagulants (principal) | CPT/HCPCS: 85610 ==

== ENCOUNTER 2017-09-08 08:00 | Outpatient (CLI) | payer MEDICAID | END 2017-09-08 08:01 | disposition home or self-care (01) | LOC: LAB.N 08:00 | PROVIDERS: ATTEND Nurse Practitioner Gerontology | DX: Z79.01 Long term (current) use of anticoagulants (principal) | CPT/HCPCS: 85610 ==

== ENCOUNTER 2017-09-11 09:16 | Outpatient (CLI) | payer MEDICAID | END 2017-09-11 09:17 | disposition home or self-care (01) | LOC: LAB.N 09:16 | PROVIDERS: ATTEND Physician Assistant Medical | DX: Z79.01 Long term (current) use of anticoagulants (principal) | CPT/HCPCS: 85610 ==

== ENCOUNTER 2017-09-14 08:00 | Outpatient (CLI) | payer MEDICAID | END 2017-09-14 08:01 | disposition home or self-care (01) | LOC: LAB.N 08:00 | PROVIDERS: ATTEND Physician Assistant Medical | DX: Z79.01 Long term (current) use of anticoagulants (principal) | CPT/HCPCS: 85610 ==

== ENCOUNTER 2017-09-18 08:45 | Outpatient (CLI) | payer MEDICAID | END 2017-09-18 08:46 | disposition home or self-care (01) | LOC: LAB.N 08:45 | PROVIDERS: ATTEND Physician Assistant Medical | DX: Z79.01 Long term (current) use of anticoagulants (principal) | CPT/HCPCS: 85610 ==

== ENCOUNTER 2017-10-04 13:56 | Outpatient (CLI) | payer MEDICAID | END 2017-10-04 13:57 | disposition critical access hospital (66) | LOC: EMS 13:56 | PROVIDERS: ATTEND Surgery | DX: S06.9X1A Unspecified intracranial injury with loss of consciousness of 30 minutes or less, initial encounter (principal); S01.81XA Laceration without foreign body of other part of head, initial encounter; W10.1XXA Fall (on)(from) sidewalk curb, initial encounter; Y93.01 Activity, walking, marching and hiking; Y92.414 Local residential or business street as the place of occurrence of the external cause; Z79.01 Long term (current) use of anticoagulants | CPT/HCPCS: A0425; A0427; A0999 ==

== ENCOUNTER 2017-10-04 14:18 | Inpatient (IN) | payer MEDICAID ==
--- NOTE | 2017-10-04 14:30 | ED Physician Documentation ---
PD HPI MAJOR TRAUMA - Stated complaint Stated Complaint: GLF- LAC - Chief complaint Chief Complaint: Trauma Marc - History obtained from History obtained from: Patient, EMS - History of Present Illness Mechanism of injury: Fell Where injury occurred: Street Timing - onset: How many hours ago (1) Injury(ies) location: Head, Face, Neck Pain level max: 3 Pain level now: 3 Quality of pain: Pain, Aching, Dull Associated symptoms: LOC, Neck pain. No: AMS, Amnesia, Weakness, Paresthesias, Dyspnea, Nausea / vomiting, Hematemesis, Abdominal distension Symptoms improve with: Rest Worsens with: Movement, Palpation Contributing factors: Intoxicated (has been drinking etoh today) Recently seen: Not recently seen - Additional information Additional information: Patient is a 57-year-old male, homeless and a chronic alcoholic. States that he stood up too quickly today he lost his balance and fell, landing on his face. Bystanders state he was unconscious for approximately 30 seconds. He does take warfarin for atrial fibrillation. Also has a history of congestive heart failure and states that his legs are more swollen than they usually are. Denies any chest pain or shortness of breath. Denies any vomiting, abdominal pain, low back pain. No numbness or tingling. Patient states that he had one beer today, but it was "fully loaded". Review of Systems Ten Systems: 10 systems reviewed and negative Constitutional: denies: Fever, Chills Ears: denies: Ear pain Nose: denies: Rhinorrhea / runny nose, Congestion Throat: denies: Sore throat Cardiac: denies: Chest pain / pressure Respiratory: denies: Cough, Wheezing GI: denies: Abdominal Pain, Vomiting, Diarrhea Skin: denies: Rash Musculoskeletal: denies: Back pain Neurologic: denies: Focal weakness, Numbness, Confused, Altered mental status PD PAST MEDICAL HISTORY - Past Medical History Cardiovascular: Atrial fibrillation Respiratory: Shortness of breath Endocrine/Autoimmune: None GI: None : None Psych: Depression Musculoskeletal: None Derm: None - Past Surgical History Past Surgical History: Yes HEENT: Tonsil/Adenoidectomy - Present Medications Home Medications: Ambulatory Orders Medication Instructions Recorded Confirmed Albuterol Sulfate [Proair Hfa 2 puffs INH Q4H #1 hfa.aer.ad 04/28/17 10/04/17 Inhaler] Aspirin [Aspirin EC] 81 mg PO DAILY #30 tablet. 04/28/17 10/04/17 Citalopram [CeleXA] 40 mg ORAL DAILY #30 tablet 04/28/17 Furosemide [Lasix] 20 mg PO BIDDIURETIC #30 tablet 04/28/17 10/04/17 Lisinopril [Zestril] 2.5 mg PO DAILY #30 tablet 04/28/17 10/04/17 Metoprolol Succinate [Toprol Xl] 25 mg PO DAILY #30 tablet 04/28/17 10/04/17 Spironolactone [Aldactone] 50 mg PO DAILY #30 tablet 04/28/17 10/04/17 Warfarin [Coumadin] 5 mg PO DAILY 10/04/17 10/04/17 - Allergies Allergies/Adverse Reactions: Allergies Allergy/AdvReac Type Severity Reaction Status Date / Time No Known Drug Allergies Allergy Verified 10/04/17 14:42 - Social History Does the pt smoke?: Yes Smoking Status: Current every day smoker Does the pt drink ETOH?: Yes Does the pt have substance abuse?: Yes - POLST Patient has POLST: No POLST Status: Full Code PD ED PE NORMAL - Vitals Vital signs reviewed: Yes - General General: Alert and oriented X 3, No acute distress, Well developed/nourished - HEENT HEENT: PERRL, Ears normal, Moist mucous membranes, Pharynx benign, Other ( Abrasions to the forehead and above the left eyebrow. No acute abnormalities in his dentition. Has poor dentition at baseline. No facial tenderness.) - Neck Neck: Other (Mild mid cervical spine tenderness to palpation. No step-off or deformity) - Cardiac Cardiac: Other (Tachycardic) - Respiratory Respiratory: No respiratory distress, Clear bilaterally - Abdomen Abdomen: Soft, Non tender, Non distended - Back Back: No CVA TTP, No spinal TTP - Derm Derm: Warm and dry - Extremities Extremities: Other (2+ bilateral lower extremity edema, pitting) - Neuro Neuro: Alert and oriented X 3, supervisor general 2-12 intact, No motor deficit, No sensory deficit, Normal speech Eye Opening: Spontaneous Motor: Obeys Commands Verbal: Oriented GCS Score: 15 - Psych Psych: Normal mood, Normal affect Results - Vitals Vitals: Vital Signs - 24 hr 10/04/17 10/04/17 14:19 15:14 Temperature 35.8 C L Heart Rate 122 H 64 Respiratory 18 15 Rate Blood Pressure 109/89 H 103/81 H O2 Saturation 95 100 Oxygen O2 Source Room air - EKG (time done) 1425 Rate: Rate (enter#) (128) Rhythm: Sinus tachycardia [place]: Normal Intervals: Normal [place] QRS: Normal, LVH Ischemia: ST elevation c/w repol, Q waves (II, III, aVF, V1-4) - Labs Labs: Laboratory Tests 10/04/17 10/04/17 10/04/17 14:30 14:30 14:30 WBC 8.8 RBC 4.94 Hgb 17.6 Hct 51.6 MCV 104.6 H MCH 35.6 H MCHC 34.0 RDW 13.0 Plt Count 156 MPV 10.3 Neut # (Auto) 7.1 H Lymph # (Auto) 1.1 L [place] # (Auto) 0.6 Eos # (Auto) 0.0 Baso # (Auto) 0.0 Absolute Nucleated RBC 0.01 Nucleated RBC % 0.1 Manual Slide Review Indicated Platelet Estimate NORMAL (130-450,000) Platelet Morphology 1+ LARGE PLATELETS RBC Morph Micro Appear NORMAL APPEARANCE PT 13.9 H INR 1.2 Sodium 127 L Potassium 4.7 Chloride 93 L Carbon Dioxide 24 Anion Gap 10.0 BUN 24 H Creatinine 1.0 Estimated GFR (MDRD) 77 L Glucose 101 H Calcium 8.6 Total Bilirubin 1.8 H AST 27 ALT 25 Alkaline Phosphatase 98 Troponin I B-Natriuretic Peptide Total Protein 6.4 L Albumin 3.9 Globulin 2.5 Albumin/Globulin Ratio 1.6 Lipase 37 10/04/17 10/04/17 14:30 14:30 WBC RBC Hgb Hct MCV MCH MCHC RDW Plt Count MPV Neut # (Auto) Lymph # (Auto) [place] # (Auto) Eos # (Auto) Baso # (Auto) Absolute Nucleated RBC Nucleated RBC % Manual Slide Review Platelet Estimate Platelet Morphology RBC Morph Micro Appear PT INR Sodium Potassium Chloride Carbon Dioxide Anion Gap BUN Creatinine Estimated GFR (MDRD) Glucose Calcium Total Bilirubin AST ALT Alkaline Phosphatase Troponin I 0.05 B-Natriuretic Peptide 6363.00 H Total Protein Albumin Globulin Albumin/Globulin Ratio Lipase - Rads (name of study) cxr Radiology: Prelim report reviewed, EMP read contemporaneously, See rad report ( cardiomegaly, emphysema) Head CT Radiology: Prelim report reviewed, EMP read contemporaneously, See rad report ( no acute abnormality) cervical spine CT Radiology: Prelim report reviewed, EMP read contemporaneously PD MEDICAL DECISION MAKING - ED course Complexity details: reviewed results, re-evaluated patient, considered differential, d/w patient, d/w operational risk consultant ED course: Patient is a 57-year-old male who suffered a ground-level fall today. Has no acute traumatic injuries other than abrasions. Negative CT scans. He does become hypoxic with ambulation, down into the upper 80s. He does feel short of breath when this occurs. Has significant peripheral edema and his BNP is elevated from his baseline of 2000 over 6000 today. Also is more hyponatremic than normal. Given a 500 mL normal saline bolus and given IV Lasix. Discussed the case with the hospitalist, Dr. Shin who accepts. This document was made in part using voice recognition software. While efforts are made to proofread this document, sound alike and grammatical errors may occur. - Sepsis Event Vital Signs: Vital Signs - 24 hr 10/04/17 10/04/17 14:19 15:14 Temperature 35.8 C L Heart Rate 122 H 64 Respiratory 18 15 Rate Blood Pressure 109/89 H 103/81 H O2 Saturation 95 100 Oxygen O2 Source Room air Departure - Departure Disposition: 66 [facility] DC/Xfer Clinical Impression: Peripheral edema, Hypoxia, Hyponatremia CHF exacerbation Qualifiers: Heart failure type: unspecified Qualified Code(s): I50.9 - Heart failure, unspecified COPD (chronic obstructive pulmonary disease) with emphysema Qualifiers: Emphysema type: unspecified Qualified Code(s): J43.9 - Emphysema, unspecified Condition: Stable
[2017-10-04 14:39] LABS: BASOPHILS % (AUTO) 0.4 %; EOSINOPHILS % (AUTO) 0.4 %; HGB - HEMOGLOBIN 17.6 g/dL (14.0-18.0); LYMPHOCYTES # (AUTO) 1.1 10^3/uL (1.5-3.5); LYMPHOCYTES % (AUTO) 12.5 %; MEAN CORPUSCULAR HEMOGLOBIN 35.6 pg (27.0-31.0); MEAN CORPUSCULAR VOLUME 104.6 fL (80.0-94.0); MEAN PLATELET VOLUME 10.3 fL (7.4-11.4); MONOCYTES # (AUTO) 0.6 10^3/uL (0.0-1.0); MONOCYTES % (AUTO) 6.7 %; NEUTROPHILS # (AUTO) 7.1 10^3/uL (1.5-6.6); PLT - PLATELET COUNT 156 10^3/uL (130-450); RED BLOOD COUNT 4.94 10^6/uL (4.70-6.10); WHITE BLOOD COUNT 8.8 x10^3/uL (4.8-10.8)
[2017-10-04] MEDS ORDERED: TETANUS/DIPHTHERIA/PERTUSSIS 0.5 ML SYRINGE IM ONE (14:39)
[2017-10-04 14:51] LABS: ALBUMIN 3.9 g/dL (3.2-5.5); ALBUMIN/GLOBULIN RATIO 1.6 (1.0-2.2); BILIRUBIN,TOTAL 1.8 mg/dL (0.2-1.0); CALCIUM 8.6 mg/dL (8.5-10.3); TOTAL PROTEIN 6.4 g/dL (6.7-8.2)
[2017-10-04 14:52] LABS: INR 1.2 (0.8-1.2); PT - PROTHROMBIN TIME 13.9 secs (9.9-12.6)
[2017-10-04 15:00] LABS: PLATELET MORPHOLOGY 1+ LARGE PLATELETS (NORMAL)
[2017-10-04 15:01] LABS: PLATELET ESTIMATE, MANUAL NORMAL (130-450,000) (NORMAL); RBC MORPHOLOGY (MULTIPLE) NORMAL APPEARANCE (NORMAL)
[2017-10-04] MEDS ORDERED: SODIUM CHLORIDE 0.9% 500 ML IV ONE (15:01)
[2017-10-04] MEDS ORDERED: FUROSEMIDE 40 MG/4 ML VIAL IVP STA (15:01)
--- NOTE | 2017-10-04 15:12 | CT Report ---
Reason: fall, head injury Procedure Date: 10/04/2017 Accession Number: [id number] / [id number] Procedure: CT - Head W/O CPT Code: FULL RESULT: EXAM: CT HEAD EXAM DATE: 10/04/2017 02:54 PM. CLINICAL HISTORY: Trauma, fall, left eye abrasion COMPARISON: CERVICAL SPINE W/O 10/04/2017. TECHNIQUE: Multiaxial CT images were obtained from the foramen magnum to the vertex. Reformats: Sagittal and coronal. IV contrast: None. In accordance with CT protocol optimization, one or more of the following dose reduction techniques were utilized for this exam: automated exposure control, adjustment of mA and/or KV based on patient size, or use of iterative reconstructive technique. FINDINGS: Parenchyma: No intraparenchymal hemorrhage. No evidence of mass, midline shift, or CT findings of infarction. [place]-white differentiation is distinct. Extraaxial Spaces: Normal for age. No subdural or epidural collections identified. Ventricles: Normal in size and position. Sinuses and Orbits: Imaged paranasal sinuses, orbits, and mastoids show no significant abnormality. Bones: No evidence of fracture or calvarial defect. Other: None. IMPRESSION: No acute intracranial abnormality. RADIA
--- NOTE | 2017-10-04 15:13 | XRAY Report ---
Reason: dyspnea Procedure Date: 10/04/2017 Accession Number: [id number] / [id number] Procedure: XR - Chest 1 View X-Ray CPT Code: 16322 FULL RESULT: EXAM: CHEST RADIOGRAPHY EXAM DATE: 10/04/2017 02:58 PM. CLINICAL HISTORY: Loss of consciousness after standing up COMPARISON: CHEST 2 VIEW 04/29/2017 CERVICAL SPINE W/O 10/04/2017. TECHNIQUE: 1 view. FINDINGS: Lungs/Pleura: Hypoventilatory changes at the right lung base. The lungs are otherwise clear. No pleural effusion or pneumothorax. Hyperlucent upper lobes with paucity of vascular markings. Mediastinum: Enlarged cardiac silhouette. Other: None. IMPRESSION: 1. Cardiomegaly. 2. Emphysema. RADIA
--- NOTE | 2017-10-04 15:21 | CT Report ---
Reason: fall, neck pain Procedure Date: 10/04/2017 Accession Number: [id number] / [id number] Procedure: CT - Cervical Spine W/O CPT Code: FULL RESULT: EXAM: CT CERVICAL SPINE WITHOUT CONTRAST DATE: 10/04/2017 02:54 PM. HISTORY: Trauma, fall, left eye abrasion. COMPARISONS: CERVICAL SPINE W/O 10/04/2017. TECHNIQUE: Thin-section axial images were acquired of the cervical spine without contrast. Post-processing: Coronal and sagittal reformats. Other: None. In accordance with CT protocol optimization, one or more of the following dose reduction techniques were utilized for this exam: automated exposure control, adjustment of mA and/or KV based on patient size, or use of iterative reconstructive technique. FINDINGS: Alignment: No scoliosis or spondylolisthesis. Bones: No fracture or bone lesion. Interspace Levels/Facets: C1-C2: Unremarkable. C2-C3: Fusion of the right facet joint. C3-C4: Degenerative bulging disk osteophyte complex resulting in mild left neural foraminal stenosis. C4-C5: Circumferential posterior disk bulging indenting the ventral thecal sac. No significant neural foraminal stenosis. C5-C6: Moderate to severe loss of disk height with posterior bulging disk osteophyte complex in the left facet joint arthropathy resulting in moderate bilateral neural foraminal stenosis. C6-C7: Posterior degenerative disk bulging. C7-T1: Posterior degenerative disk bulging. Musculature: Normal. No fatty atrophy. Other: The paravertebral and prevertebral soft tissues are unremarkable. Emphysematous changes seen at the lung apices. IMPRESSION: 1. No cervical spine fracture or malalignment. 2. Multilevel disk and facet joint related gender changes resulting in variable degrees of neural foraminal stenosis most significant at C5-C6 as detailed above. 3. Emphysema. RADIA
--- NOTE | 2017-10-04 17:29 | HISTORY & PHYSICAL EXAMINATION ---
Chief Complaint - Chief Complaint Chief Complaint: fall with injury History of Present Illness - Admitted From Admitted From:: ED - History Obtained From Records Reviewed: yes History obtained from: chart review, patient Exam Limitations: none - History of Present Illness HPI Comment/Other: João Berry is a 57-year old unkept, male with an extensive past medical history including alcoholism, tobacco dependence, marijuana dependence, depression, homelessness, chronic atrial fibrillation, shortness of breath, COPD, chronic lower extremity edema, CHF, [place], and falls. He presented to the ED today after he stumbled off of a curb while walking on the street via EMS. He states that he has been having a very difficult time finding a place to side down during the day as his energy is very poor due to his legs becoming very heavy and full of fluid. He told the ED staff that he got up too quickly, lost his balance, and fell. He states that he did not become dizzy or diaphoretic prior to the fall and can remember hitting the pavement, but nothing after that until he was in the ambulance. Upon arrival to the ED he is found to have an abrasion to his left upper eye brow, and scattered lacerations to his bilateral hands. He denies recent illness, chest pain, nausea, vomiting, or an increased cough. He states that he has found it more difficult to catch his breath with ambulation or if he goes to lie flat for at least the past week. He also believes that his BLE edema has become worse. Lab results show an astonishing elevation in BNP at 6363, although he has been greater than 6400 in past hospital stays. He is found to have a high MCV at 104.6, normal WBC count, elevated PT at 13.9, sub therapeutic INR at 1.2, low sodium at 127, elevated BUN at 24, normal creatinine at 1.0, decreased GFR at 77, elevated bilirubin at 1.8, a troponin of 0.05. His EKG appears to be unchanged from previous, and is tachycardic with rates in the 130's. He is afebrile, appears hypoxic, but oxygen readings are greater than 92% on room air. Imaging showed no acute fractures or bleeding and a chest xray showed cardiomegaly. He will be admitted to inpatient for further diuresis, and medical management of his RVR. History - Past Medical History Cardiovascular: reports: Congestive heart failure, Hypertension, High cholesterol, Coronary artery disease, Peripheral Vascular Disease, [place], Atrial fibrillation, Murmur, Arrhythmia, Valve disorder Respiratory: reports: COPD, Emphysema, Shortness of breath Neuro: reports: Dementia (mild dementia, short term memory loss), Head injury, Headaches, Peripheral neuropathy Endocrine/Autoimmune: reports: None GI: reports: GERD ADOLESCENT COUNSELOR: reports: None : reports: Benign prostate hypertrophy, Nocturia, Frequency HEENT: reports: Chronic vision loss, Chronic sinusitis Psych: reports: Depression, Anxiety Musculoskeletal: reports: Chronic back pain Derm: reports: None MRSA Hx?: No - Past Surgical History HEENT: reports: Tonsil/Adenoidectomy - Family & Social History Family History: Other family: Alive and Well (The patient was adopted and has no knowledge of his family's medical history.) Family History Comment/Other: Patient was adopted and has no idea of his family's medical history. 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 He has been homeless for the past year as his landlord raised his rent to exceed what his disability check would cover. He appears unkept upon admission and states that he has a difficult time finding food, or a place to clean up or shower daily. He states that he usually has a place to sleep at night using community resources, but struggles during the day to find a place to sit and things to do. He continues to consume around 24 ounces of beer per day, 3-4 "hits of marijuana" daily, and continues to use cigarettes. He states that he has cut back in his use from like long use of 2 PPD, now down to around 1 PPD. He states that he is not ready to , and wishes to be a FULL code. - Substance History Use: Uses substance without health or social issues: Tobacco, Alcohol, Cannabis Use Issues: Anxiety Disorder Abuse: Recurrent use of substance despite neg consequences: Alcohol, Cannabis Abuse Issues: Anxiety Disorder, Mood Disorder Dependence: Experiences withdrawal or developed tolerances: Tobacco, Alcohol, Cannabis Dependence Issues: Intoxication, Anxiety Disorder, Mood Disorder, Dementia Tobacco Details: Cigarettes - POLST Patient has POLST: No POLST Status: Full Code Meds/Allgy - Home Medications Home Medications: Ambulatory Orders Medication Instructions Recorded Confirmed Albuterol Sulfate [Proair Hfa 2 puffs INH Q4H #1 hfa.[email or web address] 04/28/17 10/05/17 Inhaler] Aspirin [Aspirin EC] 81 mg PO DAILY #30 tablet.dr 04/28/17 10/05/17 Citalopram [CeleXA] 40 mg ORAL DAILY #30 tablet 04/28/17 10/05/17 Furosemide [Lasix] 20 mg PO BIDDIURETIC #30 tablet 04/28/17 10/05/17 Lisinopril [Zestril] 2.5 mg PO DAILY #30 tablet 04/28/17 10/05/17 Metoprolol Succinate [Toprol Xl] 25 mg PO DAILY #30 tablet 04/28/17 10/05/17 Spironolactone [Aldactone] 50 mg PO DAILY #30 tablet 04/28/17 10/05/17 Warfarin [Coumadin] 5 mg PO DAILY 10/04/17 10/05/17 - Allergies Allergies/Adverse Reactions: Allergies Allergy/AdvReac Type Severity Reaction Status Date / Time No Known Drug Allergies Allergy Verified 10/04/17 14:42 Review of Systems - Constitutional Constitutional: reports: Fatigue, Weakness, Poor appetite - Eyes Eyes: reports: Vision loss - Ears, Nose & Throat Ears, Nose & Throat: reports: Hearing loss, Nasal discharge, Postnasal drainage - Cardiovascular Cariovascular: reports: Irregular heart rate, Palpitations, Edema, Lightheadedness, Syncope, Decr. exercise tolerance, Orthopnea - Respiratory Respiratory: reports: Cough, Orthopnea, SOB at rest, SOB with exertion - Gastrointestinal Gastrointestinal: reports: Reflux/heartburn, Poor appetite - Genitourinary Genitourinary: reports: Dysuria, Frequency, Nocturia - Musculoskeletal Musculoskeletal: reports: Limited range of motion, Joint swelling - Integumentary Integumentary: reports: Dryness - Neurological Neurological: reports: General weakness, Dizziness, Memory problems, Pre- existing deficit, Abnormal gait, Incoordination - Psychiatric Psychiatric: reports: Depression, Anxiety - Hematologic/Lymphatic Hematologic/Lymphatic: reports: Bruising - All Other Systems All Other Systems: reports: Reviewed and negative Exam - Vital Signs Reviewed Vital Signs: Yes Vital Signs: Vital Signs x48h Pulse Resp BP Pulse Ox 10/04/17 17:16 64 18 102/90 H 98 - Physical Exam General Appearance: positive: Alert, Moderate distress Eyes Bilateral: positive: PERRL, Other (bilateral scleral icterus) ENT: positive: Pharyngeal erythema, Dry mucous membranes Neck: positive: No JVD, Trachea midline, Stiff neck Respiratory: positive: Chest non-tender, No respiratory distress, Rhonchi ( diminished to absent to bilateral lower lobes.) Cardiovascular: positive: Irregularly irregular, Tachycardia, PMI displaced laterally, Systolic murmur, Diastolic murmur, Decreased pulse(s) Peripheral Pulses: positive: 0 Abdomen: positive: Non-tender, No organomegaly, Nml bowel sounds, No distention Back: positive: Nml inspection Skin: positive: No rash, Warm, Dry, Cyanosis, Pallor, Laceration (cm) (1-2 cm, superfiscial. Left eye brow) Extremities: positive: Pedal edema, Joint swelling, Other (profound BLE edema at least +3-4 pitting. Poor sensation, cyanotic, cool.) Neurologic/Psychiatric: positive: Oriented x3, Weakness, Sensory loss, Depressed mood/affect Reflexes: Bicep (R): 2+, Bicep (L): 2+ Conclusion/Plan - Problem List (1) CHF exacerbation Conclusion/Plan: The patient is found to have a remarkable BNP of 6363, and likely has a baseline BNP of ~2000. In April of 2017, his BNP was elevated to over 6400. He was given a one time dose of IV lasix in the ED, but after arriving on the nursing floor has been somewhat hypotensive, so further diuresis is questionable. He has profound pitting BLE edema that appear cyanotic with loss of sensation. His extremities are cool upon exam. He has coarse crackles/ absent lung sound in his bilateral lung bases. Imaging of his lungs do not show pulmonary edema or infiltrates. He has known reduced EF ~20% in April of 2017, but I suspect this may be worsened given his current state. He is very tachycardic with heart rates in the 130's. I have resumed his home metoprolol with parameters, started IV digoxin to hopefully improve his blood pressure by reducing his heart rate. An echocardiogram will be completed in the AM. Expected length of stay is 2-4 days. Plan: Continue to monitor overnight, provide supplemental oxygen, monitor fluid status and consider an indwelling quiles in order to keep good track of I/ Os. Qualifiers: Heart failure type: unspecified Qualified Code(s): I50.9 - Heart failure, unspecified (2) Peripheral edema Conclusion/Plan: The patient has been struggling with increased BLE edema and this has caused him more difficulty with ambulating. He states that since he is homeless, he just tries to find a place to sit down all day since having such profound leg weakness. Upon exam, his bilateral knee caps appear cyanotic and very cool to the touch. He has very little sensation using sharp stimuli. He is prescribed lasix 20 mg PO BID, and states that he has been taking this all at once in the morning. At least +3 pitting edema is appreciated. The patient states that ever since December, this has become much worse and understands it is directly related to his worsening heart function. Plan: SCDs, elevated feet and use AUDELIA wrap for improved circulation. (3) Facial trauma Conclusion/Plan: The patient fell prior to EMS bringing him to the ED. Head imaging notes no acute abnormalities, and he is found to have more superficial abrasions noted above his left eye which did not require stitches and appears to have minimal bloody drainage. Plan: Continue to monitor and keep area clean. Qualifiers: Encounter type: initial encounter Qualified Code(s): S09.93XA - Unspecified injury of face, initial encounter (4) Fall Conclusion/Plan: The patient states that he falls, but usually does not get injured. He is a daily beer drinker, admits to "3 or 4 hits of marijuana" daily, and continues to smoke cigarettes. He states that his fall was caused by his legs becoming too heavy from increased swelling, and as he was attempting to step up onto a curb. He lost his footing leading to a sudden accidental fall in which he reportedly became unconscious, hit his left forehead and bilateral hands on the pavement. The patient states that the next thing he remembers is being in the ambulance. Imaging in the ED was negative for head bleeding, or other abnormalities. Plan: Treat CHF, obtain an echo, and rule out other possible causes. Consider further head imaging for neuro changes. Qualifiers: Encounter type: subsequent encounter Qualified Code(s): W19.XXXD - Unspecified fall, subsequent encounter (5) Alcoholism Conclusion/Plan: The patient admits to years of alcoholism. He reports that his current usage is about 24 ounces of beer daily. He did not appear to be in withdrawal upon exam. Plan: BEER PRN to avoid alcohol withdrawal. (6) Nicotine dependence Conclusion/Plan: The patient states that he began smoking at age 15 and has been a life long smoker. He states that he has cut back to just one PPD, as he has always smoked 2 PPD. He refuses a nicotine patch. 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 Plan: Nicotine patch daily, PRN. Qualifiers: Nicotine product type: cigarettes (7) Homelessness Conclusion/Plan: The patient states that he has been homeless for at least the past year as his landlord raised the rent so much, that his disability would no longer support this. He has community help at [facility] by shelters who allow a soft bed to sleep in each night, and he tries to stay busy during the day. He admits that finding enough to each day is a challenge. Certainly with all of his medical problems this is not a great situation. He states, "I am not ready to ". He request a social service consult. Plan: Consult healthcare social worker for support. (8) Cannabis dependence Conclusion/Plan: The patient admits to "3-4 hits per day of marijuana". Plan: Continue to encourage cessation. (9) COPD (chronic obstructive pulmonary disease) with emphysema Conclusion/Plan: The patient is found to have a barrel shaped chest upon exam. He states that he is not prescribed any inhalers out patient. A chest x-ray showed hypoventilatory changes in the right lung base. He has been a life long tobacco user. He does not appear to be having an exacerbation, and does not require oxygen. Plan: Continue to monitor respiratory status and offer nebulizers if needed. Qualifiers: Emphysema type: unspecified Qualified Code(s): J43.9 - Emphysema, unspecified - Lab Results Lab results reviewed: Yes Fish Bones: 10/05/17 04:50 10/05/17 04:50 - Diagnostic Imaging Results Diagnostic Imaging Results: positive: Prelim report reviewed, Final report reviewed Diagnostic Imaging Results Comments: EXAM: CT HEAD EXAM DATE: 10/04/2017 02:54 PM. IMPRESSION: No acute intracranial abnormality. EXAM: CT CERVICAL SPINE WITHOUT CONTRAST DATE: 10/04/2017 02:54 PM. IMPRESSION: 1. No cervical spine fracture or malalignment. 2. Multilevel disk and facet joint related gender changes resulting in variable degrees of neural foraminal stenosis most significant at C5-C6 as detailed above. 3. Emphysema. EXAM: CHEST RADIOGRAPHY EXAM DATE: 10/04/2017 02:58 PM. IMPRESSION: 1. Cardiomegaly. 2. Emphysema. - EKG Results EKG Interpreted Independently: Yes Core Measures - Anticipated LOS I expect patient to be DC'd or transferred within 96 hours.: Yes - DVT/VTE - Prophylaxis VTE/DVT Device ordered at admit?: Yes VTE/DVT Prophylaxis med ordered at admit?: Yes - Stroke - Rehab Assessment Rehab services assessment to be ordered?: Yes - AMI - Statin at Admit Aspirin Prescribed on Admit: Yes
[2017-10-04] MEDS: SODIUM CHLORIDE FLUSH 0.9% 10 ML SYRINGE IVP SCH (18:05)
[2017-10-04] MEDS ORDERED: BEER 355 ML BOTTLE PO PRN (18:23)
[2017-10-04] MEDS ORDERED: DIGOXIN 500 MCG/2 ML AMP IVP SCH (18:32)
[2017-10-04] MEDS: METOPROLOL SUCCINATE 50 MG TABLET PO SCH (18:40)
[2017-10-04] MEDS: WARFARIN 5 MG TABLET PO SCH (19:04)
[2017-10-04] MEDS: FUROSEMIDE 40 MG/4 ML VIAL IVP SCH (21:18)
[2017-10-05] MEDS: SODIUM CHLORIDE FLUSH 0.9% 10 ML SYRINGE IVP SCH ×4 (00:27→18:01)
[2017-10-05] MEDS ORDERED: DIGOXIN 500 MCG/2 ML AMP IVP SCH (01:00)
[2017-10-05 05:16] LABS: BASOPHILS # (AUTO) 0.1 10^3/uL (0.0-0.1); BASOPHILS % (AUTO) 0.7 %; EOSINOPHILS % (AUTO) 0.5 %; HGB - HEMOGLOBIN 16.1 g/dL (14.0-18.0); LYMPHOCYTES # (AUTO) 0.6 10^3/uL (1.5-3.5); LYMPHOCYTES % (AUTO) 6.6 %; MEAN CORPUSCULAR HEMOGLOBIN 35.5 pg (27.0-31.0); MEAN CORPUSCULAR HGB CONC 34.1 g/dL (32.0-36.0); MEAN CORPUSCULAR VOLUME 104.2 fL (80.0-94.0); MEAN PLATELET VOLUME 10.2 fL (7.4-11.4); MONOCYTES # (AUTO) 0.6 10^3/uL (0.0-1.0); MONOCYTES % (AUTO) 7.1 %; NEUTROPHILS # (AUTO) 7.7 10^3/uL (1.5-6.6); NEUTROPHILS % (AUTO) 85.1 %; PLT - PLATELET COUNT 140 10^3/uL (130-450); RED BLOOD COUNT 4.53 10^6/uL (4.70-6.10); RED CELL DISTRIBUTION WIDTH 13.1 % (12.0-15.0)
[2017-10-05 05:27] LABS: ALBUMIN 3.5 g/dL (3.2-5.5); ALBUMIN/GLOBULIN RATIO 1.5 (1.0-2.2); BILIRUBIN,TOTAL 1.6 mg/dL (0.2-1.0); CALCIUM 8.5 mg/dL (8.5-10.3); TOTAL PROTEIN 5.9 g/dL (6.7-8.2)
[2017-10-05 05:28] LABS: INR 1.3 (0.8-1.2); PT - PROTHROMBIN TIME 14.6 secs (9.9-12.6)
[2017-10-05] MEDS: FUROSEMIDE 40 MG/4 ML VIAL IVP SCH ×2 (05:58→13:27)
[2017-10-05] MEDS ORDERED: BEER 480 ML CAN PO PRN (07:19)
[2017-10-05] MEDS: METOPROLOL SUCCINATE 50 MG TABLET PO SCH ×2 (08:27→22:13)
[2017-10-05] MEDS: SPIRONOLACTONE 25 MG TABLET PO SCH (08:30)
[2017-10-05] MEDS: ASPIRIN EC 81 MG TABLET PO SCH (08:30)
[2017-10-05] MEDS: POLYETHYLENE GLYCOL 3350 17 GM PACKET PO SCH (08:32)
[2017-10-05] MEDS ORDERED: WARFARIN 5 MG TABLET PO SCH (09:00)
--- NOTE | 2017-10-05 11:57 | PROVIDER PROGRESS NOTE ---
Subjective - Prog Note Date Prog Note Date: 10/05/17 Prog Note Time: 11:57 - Subjective Pt reports feeling: Improved Subjective: João complains of mild shortness of breath and is dangling at the time of this exam. He denies any new symptoms such as increased sputum production, nausea, vomiting, or rashes. Objective - Vital Signs/Intake & Output Reviewed Vital Signs: Yes Vital Signs: Vital Signs x48h Temp Pulse Resp BP BP Pulse Ox 10/05/17 08:00 37.1 C 95 20 114/82 H 97 10/05/17 06:00 81 94/75 101/82 H 10/05/17 04:00 36.7 C 87 16 117/89 H 100 Intake & Output: Intake & Output 10/02/17 10/03/17 10/04/17 10/05/17 23:59 23:59 23:59 23:59 Intake Total 600 120 Output Total 100 Balance 600 20 - Objective General Appearance: positive: Alert, Moderate distress, Lethargic Eyes Bilateral: positive: PERRL Eyes: OU Conjunctivae pale, OU Scleral icterus ENT: positive: Purulent nasal drainage, Pharyngeal erythema, 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) Neck: positive: Thyroid nml, No JVD, Stiff neck Respiratory: positive: Chest non-tender, Rhonchi Cardiovascular: positive: No gallop, Irregularly irregular, Systolic murmur, Decreased pulse(s) Peripheral Pulses: 1+ Radial (R), 1+ Radial (L) Abdomen: positive: Non-tender, Nml bowel sounds, No distention Back: positive: Nml inspection Skin: positive: No rash, Warm, Dry, Cyanosis Extremities: positive: Pedal edema (+4 pitting edema), Joint swelling Neurologic/Psychiatric: positive: Oriented x3, CN's nml (2-12), Weakness, Sensory loss, Slurred/abnml speech (sluggish speech), Depressed mood/affect Reflexes: Bicep (R): 2+, Bicep (L): 2+ - Lab Results Fish Bones: 10/06/17 04:51 10/06/17 04:51 Other Labs: Lab Results x24hrs 10/05/17 10/05/17 10/05/17 Range/Units 04:50 04:50 04:50 WBC (4.8-10.8) x10^3/uL RBC (4.70-6.10) 10^6/uL Hgb (14.0-18.0) g/dL Hct (42.0-52.0) % MCV (80.0-94.0) fL MCH (27.0-31.0) pg MCHC (32.0-36.0) g/dL RDW (12.0-15.0) % Plt Count (130-450) 10^3/uL MPV (7.4-11.4) fL Neut # (Auto) (1.5-6.6) 10^3/uL Lymph # (Auto) (1.5-3.5) 10^3/uL Griggs # (Auto) (0.0-1.0) 10^3/uL Eos # (Auto) (0.0-0.7) 10^3/uL Baso # (Auto) (0.0-0.1) 10^3/uL Absolute Nucleated RBC x10^3/uL Nucleated RBC % /100WBC PT 14.6 H (9.9-12.6) secs INR 1.3 H (0.8-1.2) Sodium (135-145) mmol/L Potassium (3.5-5.0) mmol/L Chloride (101-111) mmol/L Carbon Dioxide (21-32) mmol/L Anion Gap (6-13) BUN (6-20) mg/dL Creatinine (0.6-1.2) mg/dL Estimated GFR (MDRD) (>89) Glucose (70-100) mg/dL Calcium (8.5-10.3) mg/dL Total Bilirubin (0.2-1.0) mg/dL AST (10-42) IU/L ALT (10-60) IU/L Alkaline Phosphatase (42-121) IU/L Troponin I 0.05 (<0.49) ng/mL B-Natriuretic Peptide 6752.00 H (5-100) pg/mL Total Protein (6.7-8.2) g/dL Albumin (3.2-5.5) g/dL Globulin (2.1-4.2) g/dL Albumin/Globulin Ratio (1.0-2.2) 10/05/17 10/05/17 Range/Units 04:50 04:50 WBC 9.0 (4.8-10.8) x10^3/uL RBC 4.53 L (4.70-6.10) 10^6/uL Hgb 16.1 (14.0-18.0) g/dL Hct 47.2 (42.0-52.0) % MCV 104.2 H (80.0-94.0) fL MCH 35.5 H (27.0-31.0) pg MCHC 34.1 (32.0-36.0) g/dL RDW 13.1 (12.0-15.0) % Plt Count 140 (130-450) 10^3/uL MPV 10.2 (7.4-11.4) fL Neut # (Auto) 7.7 H (1.5-6.6) 10^3/uL Lymph # (Auto) 0.6 L (1.5-3.5) 10^3/uL Griggs # (Auto) 0.6 (0.0-1.0) 10^3/uL Eos # (Auto) 0.0 (0.0-0.7) 10^3/uL Baso # (Auto) 0.1 (0.0-0.1) 10^3/uL Absolute Nucleated RBC 0.00 x10^3/uL Nucleated RBC % 0.1 /100WBC PT (9.9-12.6) secs INR (0.8-1.2) Sodium 132 L (135-145) mmol/L Potassium 4.3 (3.5-5.0) mmol/L Chloride 96 L (101-111) mmol/L Carbon Dioxide 23 (21-32) mmol/L Anion Gap 13.0 (6-13) BUN 25 H (6-20) mg/dL Creatinine 1.0 (0.6-1.2) mg/dL Estimated GFR (MDRD) 77 L (>89) Glucose 77 (70-100) mg/dL Calcium 8.5 (8.5-10.3) mg/dL Total Bilirubin 1.6 H (0.2-1.0) mg/dL AST 25 (10-42) IU/L ALT 21 (10-60) IU/L Alkaline Phosphatase 87 (42-121) IU/L Troponin I (<0.49) ng/mL B-Natriuretic Peptide (5-100) pg/mL Total Protein 5.9 L (6.7-8.2) g/dL Albumin 3.5 (3.2-5.5) g/dL Globulin 2.4 (2.1-4.2) g/dL Albumin/Globulin Ratio 1.5 (1.0-2.2) ABX Reporting Has patient been on IV antibiotics over the past 48 hours?: No Assessment/Plan - Problem List (1) CHF exacerbation Impression: Today the patient's BNP continues to increase and is 6752. His GFR is fair at 77 toay, so he continues on BID lasix IV. He has profound pitting BLE edema that appear cyanotic with loss of sensation. His extremities are cool upon exam. He has coarse crackles/absent lung sound in his bilateral lung bases. Imaging of his lungs do not show pulmonary edema or infiltrates. An echocardiogram shows a worsening overall heart function with an estimated EF of <20%. Plan: Continue to monitor, provide supplemental oxygen as needed, monitor fluid status. Continue IV lasix providing kidney function remains stable. Qualifiers: Heart failure type: unspecified Qualified Code(s): I50.9 - Heart failure, unspecified (2) Peripheral edema Impression: The patient has been struggling with increased BLE edema and this has caused him more difficulty with ambulating. He states that since he is homeless, he just tries to find a place to sit down all day since having such profound leg weakness. Upon exam, his bilateral knee caps appear cyanotic and very cool to the touch. He has very little sensation using sharp stimuli. At least +3 pitting edema is appreciated. The patient states that ever since December, this has become much worse and understands it is directly related to his worsening heart function. Plan: SCDs, elevated feet and use AUDELIA wrap for improved circulation. (3) Facial trauma Impression: The patient fell prior to EMS bringing him to the ED. Head imaging notes no acute abnormalities, and he is found to have more superficial abrasions noted above his left eye which did not require stitches and appears to have minimal bloody drainage. Plan: Continue to monitor and keep area clean. Qualifiers: Encounter type: initial encounter Qualified Code(s): S09.93XA - Unspecified injury of face, initial encounter (4) Fall Impression: The patient states that he falls, but usually does not get injured. He is a daily beer drinker, admits to "3 or 4 hits of marijuana" daily, and continues to smoke cigarettes. He states that his fall was caused by his legs becoming too heavy from increased swelling, and as he was attempting to step up onto a curb. He lost his footing leading to a sudden accidental fall in which he reportedly became unconscious, hit his left forehead and bilateral hands on the pavement. The patient states that the next thing he remembers is being in the ambulance. Imaging in the ED was negative for head bleeding, or other abnormalities. Plan: Treat CHF, continue daily PT. Consider further head imaging for neuro changes. Qualifiers: Encounter type: subsequent encounter Qualified Code(s): W19.XXXD - Unspecified fall, subsequent encounter (5) Alcoholism Impression: The patient admits to years of alcoholism. He reports that his current usage is about 24 ounces of beer daily. He did not appear to be in withdrawal upon exam. He states that he does not need any BEER while here. Plan: BEER PRN to avoid alcohol withdrawal. (6) Nicotine dependence Impression: The patient states that he began smoking at age 15 and has been a life long smoker. He states that he has cut back to just one PPD, as he has always smoked 2 PPD. He refuses a nicotine patch. His MCV is noted to be elevated at greater than 104, an expected finding of care home tobacco dependence. Plan: Nicotine patch daily, PRN. Qualifiers: Nicotine product type: cigarettes (7) Homelessness Impression: The patient states that he has been homeless for at least the past year as his landlord raised the rent so much, that his disability would no longer support this. He has community help at [facility] by shelters who allow a soft bed to sleep in each night, and he tries to stay busy during the day. He admits that finding enough to each day is a challenge. Certainly with all of his medical problems this is not a great situation. He states, "I am not ready to ". He request a social service consult. Plan: Consult psychiatric social worker supervisor for support. (8) Cannabis dependence Impression: The patient admits to "3-4 hits per day of marijuana". Plan: Continue to encourage cessation. 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 He states that he is not prescribed any inhalers out patient. A chest x-ray showed hypoventilatory changes in the right lung base. He has been a life long tobacco user. He does not appear to be having an exacerbation, and does not require oxygen. Plan: Continue to monitor respiratory status and offer nebulizers if needed. Qualifiers: Emphysema type: unspecified Qualified Code(s): J43.9 - Emphysema, unspecified
[2017-10-05] MEDS: CITALOPRAM 10 MG TABLET PO SCH (13:19)
[2017-10-05] MEDS: WARFARIN 5 MG TABLET PO SCH (13:27)
[2017-10-05] MEDS: ENOXAPARIN 80 MG/0.8 ML SYRINGE SUBQ SCH ×2 (18:01→22:13)
[2017-10-06] MEDS: SODIUM CHLORIDE FLUSH 0.9% 10 ML SYRINGE IVP SCH ×3 (00:14→18:14)
[2017-10-06] MEDS ORDERED: KETOROLAC 15 MG/ML VIAL IVP PRN (03:30)
[2017-10-06] MEDS ORDERED: ACETAMINOPHEN 325 MG TABLET PO PRN (03:30)
[2017-10-06 05:27] LABS: BASOPHILS # (AUTO) 0.1 10^3/uL (0.0-0.1); BASOPHILS % (AUTO) 0.8 %; EOSINOPHILS % (AUTO) 0.5 %; HGB - HEMOGLOBIN 15.6 g/dL (14.0-18.0); LYMPHOCYTES # (AUTO) 0.7 10^3/uL (1.5-3.5); LYMPHOCYTES % (AUTO) 10.2 %; MEAN CORPUSCULAR HEMOGLOBIN 35.7 pg (27.0-31.0); MEAN CORPUSCULAR HGB CONC 34.1 g/dL (32.0-36.0); MEAN CORPUSCULAR VOLUME 104.7 fL (80.0-94.0); MEAN PLATELET VOLUME 9.8 fL (7.4-11.4); MONOCYTES # (AUTO) 0.9 10^3/uL (0.0-1.0); MONOCYTES % (AUTO) 12.9 %; NEUTROPHILS # (AUTO) 5.4 10^3/uL (1.5-6.6); NEUTROPHILS % (AUTO) 75.6 %; PLT - PLATELET COUNT 124 10^3/uL (130-450); RED BLOOD COUNT 4.36 10^6/uL (4.70-6.10); WHITE BLOOD COUNT 7.1 x10^3/uL (4.8-10.8)
[2017-10-06 05:31] LABS: INR 1.5 (0.8-1.2); PT - PROTHROMBIN TIME 16.9 secs (9.9-12.6)
[2017-10-06 05:39] LABS: ALBUMIN 3.1 g/dL (3.2-5.5); ALBUMIN/GLOBULIN RATIO 1.3 (1.0-2.2); BILIRUBIN,TOTAL 2.1 mg/dL (0.2-1.0); CALCIUM 8.2 mg/dL (8.5-10.3); TOTAL PROTEIN 5.4 g/dL (6.7-8.2)
[2017-10-06] MEDS: FUROSEMIDE 40 MG/4 ML VIAL IVP SCH ×3 (06:47→20:45)
[2017-10-06] MEDS: SODIUM CHLORIDE FLUSH 0.9% 10 ML SYRINGE IVP PRN ×3 (06:48→20:59)
[2017-10-06] MEDS: POLYETHYLENE GLYCOL 3350 17 GM PACKET PO SCH (08:53)
[2017-10-06] MEDS: METOPROLOL SUCCINATE 50 MG TABLET PO SCH (09:53)
[2017-10-06] MEDS: CITALOPRAM 10 MG TABLET PO SCH (10:24)
[2017-10-06] MEDS: ASPIRIN EC 81 MG TABLET PO SCH (10:24)
[2017-10-06] MEDS: SPIRONOLACTONE 25 MG TABLET PO SCH (10:24)
[2017-10-06] MEDS: ENOXAPARIN 80 MG/0.8 ML SYRINGE SUBQ SCH ×2 (10:24→20:45)
--- NOTE | 2017-10-06 11:27 | PROVIDER PROGRESS NOTE ---
Subjective - Prog Note Date Prog Note Date: 10/06/17 Prog Note Time: 11:26 - Subjective Pt reports feeling: No change Subjective: João states that he is mostly concerned about us, "kicking him to the curb too soon", and complains about ongoing shortness of breath, especially with exertion. He denies any new headaches, chest pain, nausea, vomiting, or a productive cough. In fact, he states that he is unable to cough anything up, and thinks his lungs feel too full. Objective - Vital Signs/Intake & Output Reviewed Vital Signs: Yes Vital Signs: Vital Signs x48h Temp Pulse Resp BP Pulse Ox 10/06/17 09:03 36.6 C 66 18 101/64 93 10/06/17 06:40 67 102/69 97 Intake & Output: Intake & Output 10/03/17 10/04/17 10/05/17 10/06/17 23:59 23:59 23:59 23:59 Intake Total 600 840 300 Output Total 100 250 Balance 600 740 50 - Objective General Appearance: positive: Alert, Moderate distress, Lethargic Eyes Bilateral: positive: Normal inspection, PERRL Eyes: OU Conjunctivae pale, OU Scleral icterus ENT: positive: ENT inspection nml, Pharyngeal erythema, Oral lesions (very poor dentitian), Dry mucous membranes Neck: positive: Nml inspection, Thyroid nml, No JVD, Trachea midline, Lymphadenopathy (R), Lymphadenopathy (L), Stiff neck Respiratory: positive: Chest non-tender, Rhonchi, Other (tripod positions at time for ease of breathing.) Cardiovascular: positive: No gallop, Irregularly irregular, Systolic murmur, Decreased pulse(s) Peripheral Pulses: 1+ Radial (R), 1+ Radial (L) Abdomen: positive: Non-tender, No organomegaly, Nml bowel sounds Back: positive: Nml inspection Skin: positive: No rash, Warm, Dry, Cyanosis, Pallor, Other Extremities: positive: Pedal edema (+3-4 pitting, with loss of sensation), Joint swelling Neurologic/Psychiatric: positive: Oriented x3, CN's nml (2-12), Weakness, Sensory loss, Slurred/abnml speech (sluggish speech), Depressed mood/affect Reflexes: Bicep (R): 2+, Bicep (L): 2+ - Lab Results Fish Bones: 10/07/17 05:50 10/07/17 05:50 Other Labs: Lab Results x24hrs 10/06/17 10/06/17 10/06/17 Range/Units 04:51 04:51 04:51 WBC (4.8-10.8) x10^3/uL RBC (4.70-6.10) 10^6/uL Hgb (14.0-18.0) g/dL Hct (42.0-52.0) % MCV (80.0-94.0) fL MCH (27.0-31.0) pg MCHC (32.0-36.0) g/dL RDW (12.0-15.0) % Plt Count (130-450) 10^3/uL MPV (7.4-11.4) fL Neut # (Auto) (1.5-6.6) 10^3/uL Lymph # (Auto) (1.5-3.5) 10^3/uL Sawyer # (Auto) (0.0-1.0) 10^3/uL Eos # (Auto) (0.0-0.7) 10^3/uL Baso # (Auto) (0.0-0.1) 10^3/uL Absolute Nucleated RBC x10^3/uL Nucleated RBC % /100WBC PT 16.9 H (9.9-12.6) secs INR 1.5 H (0.8-1.2) Sodium 132 L (135-145) mmol/L Potassium 3.9 (3.5-5.0) mmol/L Chloride 97 L (101-111) mmol/L Carbon Dioxide 27 (21-32) mmol/L Anion Gap 8.0 (6-13) BUN 25 H (6-20) mg/dL Creatinine 1.0 (0.6-1.2) mg/dL Estimated GFR (MDRD) 77 L (>89) Glucose 94 (70-100) mg/dL Calcium 8.2 L (8.5-10.3) mg/dL Total Bilirubin 2.1 H (0.2-1.0) mg/dL AST 21 (10-42) IU/L ALT 18 (10-60) IU/L Alkaline Phosphatase 71 (42-121) IU/L B-Natriuretic Peptide 8241.00 H (5-100) pg/mL Total Protein 5.4 L (6.7-8.2) g/dL Albumin 3.1 L (3.2-5.5) g/dL Globulin 2.3 (2.1-4.2) g/dL Albumin/Globulin Ratio 1.3 (1.0-2.2) 10/06/17 Range/Units 04:51 WBC 7.1 (4.8-10.8) x10^3/uL RBC 4.36 L (4.70-6.10) 10^6/uL Hgb 15.6 (14.0-18.0) g/dL Hct 45.7 (42.0-52.0) % MCV 104.7 H (80.0-94.0) fL MCH 35.7 H (27.0-31.0) pg MCHC 34.1 (32.0-36.0) g/dL RDW 13.0 (12.0-15.0) % Plt Count 124 L (130-450) 10^3/uL MPV 9.8 (7.4-11.4) fL Neut # (Auto) 5.4 (1.5-6.6) 10^3/uL Lymph # (Auto) 0.7 L (1.5-3.5) 10^3/uL Sawyer # (Auto) 0.9 (0.0-1.0) 10^3/uL Eos # (Auto) 0.0 (0.0-0.7) 10^3/uL Baso # (Auto) 0.1 (0.0-0.1) 10^3/uL Absolute Nucleated RBC 0.00 x10^3/uL Nucleated RBC % 0.1 /100WBC PT (9.9-12.6) secs INR (0.8-1.2) Sodium (135-145) mmol/L Potassium (3.5-5.0) mmol/L Chloride (101-111) mmol/L Carbon Dioxide (21-32) mmol/L Anion Gap (6-13) BUN (6-20) mg/dL Creatinine (0.6-1.2) mg/dL Estimated GFR (MDRD) (>89) Glucose (70-100) mg/dL Calcium (8.5-10.3) mg/dL Total Bilirubin (0.2-1.0) mg/dL AST (10-42) IU/L ALT (10-60) IU/L Alkaline Phosphatase (42-121) IU/L B-Natriuretic Peptide (5-100) pg/mL Total Protein (6.7-8.2) g/dL Albumin (3.2-5.5) g/dL Globulin (2.1-4.2) g/dL Albumin/Globulin Ratio (1.0-2.2) ABX Reporting Has patient been on IV antibiotics over the past 48 hours?: No Assessment/Plan - Problem List (1) CHF exacerbation Impression: The patient does not seem to be improving both clinically, and based on I/O weights and most recent labs in which the BNP is now >8700. He has been on IV lasix at 40 mg IV BID, which will be changed to TID. Plan: Insert quiles for more accurate I/Os. Qualifiers: Heart failure type: unspecified Qualified Code(s): I50.9 - Heart failure, unspecified (2) Peripheral edema Impression: The patient has been struggling with increased BLE edema and this has caused him more difficulty with ambulating. He states that since he is homeless, he just tries to find a place to sit down all day since having such profound leg weakness. Upon exam, his bilateral knee caps appear cyanotic and very cool to the touch. He has very little sensation using sharp stimuli. At least +3 pitting edema is appreciated. The patient states that ever since December, this has become much worse and understands it is directly related to his worsening heart function. Plan: SCDs, elevated feet and use AUDELIA wrap for improved circulation. (3) Facial trauma Impression: The patient fell prior to EMS bringing him to the ED. Head imaging notes no acute abnormalities, and he is found to have more superficial abrasions noted above his left eye which did not require stitches and appears to have minimal bloody drainage. Plan: Continue to monitor and keep area clean. Qualifiers: Encounter type: initial encounter Qualified Code(s): S09.93XA - Unspecified injury of face, initial encounter (4) Fall Impression: The patient states that he falls, but usually does not get injured. He is a daily beer drinker, admits to "3 or 4 hits of marijuana" daily, and continues to smoke cigarettes. He states that his fall was caused by his legs becoming too heavy from increased swelling, and as he was attempting to step up onto a curb. He lost his footing leading to a sudden accidental fall in which he reportedly became unconscious, hit his left forehead and bilateral hands on the pavement. The patient states that the next thing he remembers is being in the ambulance. Imaging in the ED was negative for head bleeding, or other abnormalities. Plan: Treat CHF, continue daily PT. Consider further head imaging for neuro changes. Qualifiers: Encounter type: subsequent encounter Qualified Code(s): W19.XXXD - Unspecified fall, subsequent encounter (5) Alcoholism Impression: The patient admits to years of alcoholism. He reports that his current usage is about 24 ounces of beer daily. He did not appear to be in withdrawal upon exam. He states that he does not need any BEER while here. I will discontinue this as it seems to be irritating as the nursing staff asks him periodically. Plan: Monitor for withdrawal. (6) Nicotine dependence Impression: The patient states that he began smoking at age 15 and has been a life long smoker. He states that he has cut back to just one PPD, as he has always smoked 2 PPD. He refuses a nicotine patch. His MCV is noted to be elevated at greater than 104, an expected finding of ratings analyst tobacco dependence. Plan: Nicotine patch daily, PRN. Qualifiers: Nicotine product type: cigarettes (7) Homelessness Impression: The patient states that he has been homeless for at least the past year as his landlord raised the rent so much, that his disability would no longer support this. He has community help at [facility] by shelters who allow a soft bed to sleep in each night, and he tries to stay busy during the day. He admits that finding enough to each day is a challenge. Certainly with all of his medical problems this is not a great situation. He states, "I am not ready to ". He request a social service consult. Plan: Consult social services designee for support. (8) Cannabis dependence Impression: The patient admits to "3-4 hits per day of marijuana". Plan: Continue to encourage cessation. 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 He states that he is not prescribed any inhalers out patient. A chest x-ray showed hypoventilatory changes in the right lung base. He has been a life long tobacco user. He does not appear to be having an exacerbation, and does not require oxygen. The patient continues to be very congested upon exam today with continued bilateral crackles. A follow up x-ray is pending. I have added xopenex nebs and an expectorant in the event this is progressing to pneumonia. Plan: Continue to monitor respiratory status and offer nebulizers if needed. Qualifiers: Emphysema type: unspecified Qualified Code(s): J43.9 - Emphysema, unspecified
[2017-10-06] MEDS ORDERED: LIDOCAINE 2% URO-JET 5 ML SYRINGE UR PRN (12:17)
[2017-10-06] MEDS: WARFARIN 5 MG TABLET PO SCH (14:54)
[2017-10-06] MEDS ORDERED: FUROSEMIDE 40 MG/4 ML VIAL IVP SCH (15:25)
[2017-10-06] MEDS ORDERED: LEVALBUTEROL 1.25 MG/3 ML NEB INH PRN (19:04)
[2017-10-06] MEDS: METOPROLOL SUCCINATE 25 MG TABLET PO SCH (20:45)
[2017-10-06] MEDS: guaiFENesin 600 MG TABLET PO SCH (20:45)
[2017-10-06] MEDS: LEVALBUTEROL 1.25 MG/3 ML NEB INH SCH (20:50)
--- NOTE | 2017-10-06 23:10 | XRAY Report ---
Reason: coarse crackles, shortness of breath Procedure Date: 10/06/2017 Accession Number: [id number] / [id number] Procedure: XR - Chest 1 View X-Ray CPT Code: 30282 FULL RESULT: EXAM: CHEST RADIOGRAPHY EXAM DATE: 10/06/2017 07:46 PM. CLINICAL HISTORY: Crackles, shortness of breath. COMPARISON: Chest 10/04/2017. TECHNIQUE: 1 view. FINDINGS: Stable cardiomegaly. New moderate right lower lung opacification. No pneumothorax. IMPRESSION: Stable cardiomegaly. New moderate right lower lung opacification, could represent consolidated pneumonia. RADIA
[2017-10-07] MEDS: SODIUM CHLORIDE FLUSH 0.9% 10 ML SYRINGE IVP SCH ×3 (00:54→17:54)
[2017-10-07] MEDS: SODIUM CHLORIDE FLUSH 0.9% 10 ML SYRINGE IVP PRN ×4 (05:42→11:42)
[2017-10-07] MEDS: FUROSEMIDE 40 MG/4 ML VIAL IVP SCH ×3 (05:42→17:53)
[2017-10-07 06:06] LABS: INR 1.5 (0.8-1.2); PT - PROTHROMBIN TIME 16.5 secs (9.9-12.6)
[2017-10-07 06:09] LABS: BASOPHILS % (AUTO) 0.5 %; EOSINOPHILS # (AUTO) 0.1 10^3/uL (0.0-0.7); EOSINOPHILS % (AUTO) 0.9 %; HGB - HEMOGLOBIN 15.8 g/dL (14.0-18.0); LYMPHOCYTES # (AUTO) 0.9 10^3/uL (1.5-3.5); LYMPHOCYTES % (AUTO) 13.7 %; MEAN CORPUSCULAR HEMOGLOBIN 35.5 pg (27.0-31.0); MEAN CORPUSCULAR HGB CONC 34.2 g/dL (32.0-36.0); MEAN CORPUSCULAR VOLUME 103.9 fL (80.0-94.0); MEAN PLATELET VOLUME 9.4 fL (7.4-11.4); MONOCYTES # (AUTO) 0.7 10^3/uL (0.0-1.0); MONOCYTES % (AUTO) 11.6 %; NEUTROPHILS # (AUTO) 4.7 10^3/uL (1.5-6.6); NEUTROPHILS % (AUTO) 73.3 %; PLT - PLATELET COUNT 122 10^3/uL (130-450); RED BLOOD COUNT 4.44 10^6/uL (4.70-6.10); RED CELL DISTRIBUTION WIDTH 12.8 % (12.0-15.0); WHITE BLOOD COUNT 6.4 x10^3/uL (4.8-10.8)
[2017-10-07 06:20] LABS: ALBUMIN 3.1 g/dL (3.2-5.5); ALBUMIN/GLOBULIN RATIO 1.3 (1.0-2.2); BILIRUBIN,TOTAL 1.5 mg/dL (0.2-1.0); CALCIUM 7.9 mg/dL (8.5-10.3); CREATININE 0.9 mg/dL (0.6-1.2); TOTAL PROTEIN 5.4 g/dL (6.7-8.2)
[2017-10-07] MEDS: SPIRONOLACTONE 25 MG TABLET PO SCH (08:09)
[2017-10-07] MEDS: ASPIRIN EC 81 MG TABLET PO SCH (08:10)
[2017-10-07] MEDS: METOPROLOL SUCCINATE 25 MG TABLET PO SCH ×2 (08:10→21:59)
[2017-10-07] MEDS: guaiFENesin 600 MG TABLET PO SCH ×2 (08:10→22:36)
[2017-10-07] MEDS: CITALOPRAM 10 MG TABLET PO SCH (08:10)
[2017-10-07] MEDS: POLYETHYLENE GLYCOL 3350 17 GM PACKET PO SCH (08:14)
[2017-10-07] MEDS: ENOXAPARIN 80 MG/0.8 ML SYRINGE SUBQ SCH ×2 (08:17→22:36)
--- NOTE | 2017-10-07 10:14 | PROVIDER PROGRESS NOTE ---
Subjective - Prog Note Date Prog Note Date: 10/07/17 Prog Note Time: 10:15 - Subjective Pt reports feeling: No change Subjective: João complains of ongoing shortness of breath that becomes worse with exertion. He states that his previous chills are only slightly improved. He denies dizziness, nausea, vomiting, or diarrhea. Current Medications - Current Medications Current Medications: Active Medications Acetaminophen (Tylenol) 650 mg PO Q4HR PRN PRN Reason: Pain or Fever > 38C (100.4F) Last Admin: 10/06/17 04:00 Dose: 650 mg Aspirin (Ecotrin) 81 mg PO DAILY [facility] Last Admin: 10/07/17 08:10 Dose: 81 mg Citalopram Hydrobromide (Celexa) 40 mg PO DAILY [facility] Last Admin: 10/07/17 08:10 Dose: 40 mg Enoxaparin Sodium (Lovenox) 80 mg SUBQ BID [facility] Last Admin: 10/07/17 08:17 Dose: 80 mg Furosemide (Lasix Inj 40 Mg Vial) 40 mg IVP 0600,1200,1800 [facility] Last Admin: 10/07/17 05:42 Dose: 40 mg Guaifenesin (Mucinex) 600 mg PO BID [facility] Last Admin: 10/07/17 08:10 Dose: 600 mg Azithromycin 500 mg/ Sodium (Chloride) 250 mls @ 250 mls/hr IV DAILY [facility] Ceftriaxone Sodium 2 gm/ (Sodium Chloride) 100 mls @ 200 mls/hr IV DAILY [facility] Ketorolac Tromethamine (Toradol Inj (15mg)) 15 mg IVP Q6HR PRN PRN Reason: PAIN Stop: 10/11/17 03:29 Levalbuterol HCl (Xopenex) 1.25 mg INH Q4H PRN PRN Reason: Shortness of Air/Wheezing Lidocaine HCl (Xylocaine Uro-Jet 2%) 2.5 ml UR Q6H PRN PRN Reason: PAIN Metoprolol Succinate (Toprol Xl) 12.5 mg PO BID [facility] Last Admin: 10/07/17 08:10 Dose: 12.5 mg Polyethylene Glycol (Miralax) 17 gm PO DAILY [facility] Last Admin: 10/07/17 08:14 Dose: Not Given Sodium Chloride (Normal Saline Flush 0.9%) 10 ml IVP PRN PRN PRN Reason: NEEDED PER PROVIDER ORDERS Last Admin: 10/07/17 05:42 Dose: 10 ml Sodium Chloride (Normal Saline Flush 0.9%) 10 ml IVP 0100,0900,1700 [facility] Last Admin: 10/07/17 08:14 Dose: 10 ml Spironolactone (Aldactone) 50 mg PO DAILY [facility] Last Admin: 10/07/17 08:09 Dose: 50 mg Warfarin Sodium (Coumadin) 5 mg PO QDWARFARIN [facility] Last Admin: 10/06/17 14:54 Dose: 5 mg Warfarin [Coumadin] 5 mg PO DAILY 10/04/17 Objective - Vital Signs/Intake & Output Reviewed Vital Signs: Yes Vital Signs: Vital Signs x48h Temp Pulse Pulse Resp BP BP Pulse Ox 10/07/17 09:27 68 18 10/07/17 08:00 37.0 C 73 16 109/83 H 96 10/07/17 05:41 69 107/73 Intake & Output: Intake & Output 10/04/17 10/05/17 10/06/17 10/07/17 23:59 23:59 23:59 23:59 Intake Total 509 563 3217 610 Output Total 100 2525 1620 Balance 600 740 -975 -1010 - Objective General Appearance: positive: Alert, Moderate distress, Anxious Eyes Bilateral: positive: Normal inspection Eyes: OU Conjunctivae pale, OU Scleral icterus ENT: positive: ENT inspection nml, Pharyngeal erythema, Dry mucous membranes Neck: positive: Nml inspection, Thyroid nml, No JVD Respiratory: positive: Chest non-tender, Rhonchi Cardiovascular: positive: No gallop, Irregularly irregular, Systolic murmur Peripheral Pulses: 1+ Radial (R), 1+ Radial (L) Abdomen: positive: Non-tender, No organomegaly, Nml bowel sounds, No distention Back: positive: Nml inspection, CVA tenderness (R), CVA tenderness (L) Skin: positive: No rash, Warm, Dry, Cyanosis, Pallor Extremities: positive: Non-tender, Pedal edema, Joint swelling, Other (chronic BLE edema-pitting with loss of sensation and discoloration.) Neurologic/Psychiatric: positive: Oriented x3, CN's nml (2-12), Weakness, Sensory loss, Slurred/abnml speech (chronic sluggish speech), Depressed mood/ affect Reflexes: Bicep (R): 2+, Bicep (L): 2+ - Lab Results Fish Bones: 10/07/17 05:50 10/07/17 05:50 Other Labs: Lab Results x24hrs 10/07/17 10/07/17 10/07/17 Range/Units 05:50 05:50 05:50 WBC (4.8-10.8) x10^3/uL RBC (4.70-6.10) 10^6/uL Hgb (14.0-18.0) g/dL Hct (42.0-52.0) % MCV (80.0-94.0) fL MCH (27.0-31.0) pg MCHC (32.0-36.0) g/dL RDW (12.0-15.0) % Plt Count (130-450) 10^3/uL MPV (7.4-11.4) fL Neut # (Auto) (1.5-6.6) 10^3/uL Lymph # (Auto) (1.5-3.5) 10^3/uL Kaufman # (Auto) (0.0-1.0) 10^3/uL Eos # (Auto) (0.0-0.7) 10^3/uL Baso # (Auto) (0.0-0.1) 10^3/uL Absolute Nucleated RBC x10^3/uL Nucleated RBC % /100WBC PT 16.5 H (9.9-12.6) secs INR 1.5 H (0.8-1.2) Sodium 132 L (135-145) mmol/L Potassium 3.3 L (3.5-5.0) mmol/L Chloride 94 L (101-111) mmol/L Carbon Dioxide 29 (21-32) mmol/L Anion Gap 9.0 (6-13) BUN 20 (6-20) mg/dL Creatinine 0.9 (0.6-1.2) mg/dL Estimated GFR (MDRD) 87 L (>89) Glucose 90 (70-100) mg/dL Calcium 7.9 L (8.5-10.3) mg/dL Total Bilirubin 1.5 H (0.2-1.0) mg/dL AST 19 (10-42) IU/L ALT 17 (10-60) IU/L Alkaline Phosphatase 68 (42-121) IU/L B-Natriuretic Peptide 7795.00 H (5-100) pg/mL Total Protein 5.4 L (6.7-8.2) g/dL Albumin 3.1 L (3.2-5.5) g/dL Globulin 2.3 (2.1-4.2) g/dL Albumin/Globulin Ratio 1.3 (1.0-2.2) 10/07/17 Range/Units 05:50 WBC 6.4 (4.8-10.8) x10^3/uL RBC 4.44 L (4.70-6.10) 10^6/uL Hgb 15.8 (14.0-18.0) g/dL Hct 46.2 (42.0-52.0) % MCV 103.9 H (80.0-94.0) fL MCH 35.5 H (27.0-31.0) pg MCHC 34.2 (32.0-36.0) g/dL RDW 12.8 (12.0-15.0) % Plt Count 122 L (130-450) 10^3/uL MPV 9.4 (7.4-11.4) fL Neut # (Auto) 4.7 (1.5-6.6) 10^3/uL Lymph # (Auto) 0.9 L (1.5-3.5) 10^3/uL Kaufman # (Auto) 0.7 (0.0-1.0) 10^3/uL Eos # (Auto) 0.1 (0.0-0.7) 10^3/uL Baso # (Auto) 0.0 (0.0-0.1) 10^3/uL Absolute Nucleated RBC 0.00 x10^3/uL Nucleated RBC % 0.1 /100WBC PT (9.9-12.6) secs INR (0.8-1.2) Sodium (135-145) mmol/L Potassium (3.5-5.0) mmol/L Chloride (101-111) mmol/L Carbon Dioxide (21-32) mmol/L Anion Gap (6-13) BUN (6-20) mg/dL Creatinine (0.6-1.2) mg/dL Estimated GFR (MDRD) (>89) Glucose (70-100) mg/dL Calcium (8.5-10.3) mg/dL Total Bilirubin (0.2-1.0) mg/dL AST (10-42) IU/L ALT (10-60) IU/L Alkaline Phosphatase (42-121) IU/L B-Natriuretic Peptide (5-100) pg/mL Total Protein (6.7-8.2) g/dL Albumin (3.2-5.5) g/dL Globulin (2.1-4.2) g/dL Albumin/Globulin Ratio (1.0-2.2) ABX Reporting Has patient been on IV antibiotics over the past 48 hours?: Yes Assessment/Plan - Problem List (1) CHF exacerbation Impression: The patient does not seem to be improving both clinically, and based on I/O weights and most recent labs in which the BNP is now 7795. He has been on IV lasix at 40 mg IV TID, which continues. He continues to have profound BLE pitting edema which causes difficulty with walking. Plan: Continue aggressive diuresis, monitor daily labs including BNP Qualifiers: Heart failure type: unspecified Qualified Code(s): I50.9 - Heart failure, unspecified (2) Left lower lobe pneumonia Impression: A chest x-ray was obtained last evening due to complaints of chills, and ongoing coarse crackles to bilateral lung cuello. The patient states that he feels as if he just can't cough anything up. Imaging confirms a new left low lobe infiltrate that resembles pneumonia. WBC count is normal today, and there are no reported fevers. I have prescribed xopenex nebs, scheduled and PRN, an expectorant and incentive spirometry. Plan: Start Rocephin and Azithromycin for this illness, continue respiratory care and vital signs. (3) Peripheral edema Impression: The patient has been struggling with increased BLE edema and this has caused him more difficulty with ambulating. He admit to this being a long standing problem for the past several years. He states that since he is homeless, he just tries to find a place to sit down all day since having such profound leg weakness. His BLE appear cyanotic and very cool to the touch. He has very little sensation using sharp stimuli. At least +3-4 pitting edema is appreciated. The patient states that ever since December, this has become much worse and understands it is directly related to his worsening heart function. Plan: SCDs, elevated feet and use AUDELIA wrap for improved circulation. (4) Facial trauma Impression: The patient's facial trauma was superficial and the lesion above his left eye. Plan: Continue to monitor. Qualifiers: Encounter type: initial encounter Qualified Code(s): S09.93XA - Unspecified injury of face, initial encounter (5) Fall Impression: The patient states that he falls, but usually does not get injured. Prior to this admission he admits to being a daily beer drinker, and admits to "3 or 4 hits of marijuana" daily, and continues to smoke cigarettes. He states that his fall was caused by his legs becoming too heavy from increased swelling, and as he was attempting to step up onto a curb. He lost his footing leading to a sudden accidental fall in which he reportedly became unconscious, hit his left forehead and bilateral hands on the pavement. The patient states that the next thing he remembers is being in the ambulance. Imaging in the ED was negative for head bleeding, or other abnormalities. He has no other apparent injuries. While inpatient, he continues to struggle with ambulation and stamina. Physical therapy evaluated and signed of as he is not thought to be at an increased risk for falls. Plan: Treat CHF, continue to encourage ambulation. Consider further head imaging for neuro changes. Qualifiers: Encounter type: subsequent encounter Qualified Code(s): W19.XXXD - Unspecified fall, subsequent encounter (6) Alcoholism Impression: The patient admits to years of alcoholism. He reports that his current usage is about 24 ounces of beer daily. He did not appear to be in withdrawal upon exam. He states that he does not need any BEER while here. I will discontinue this as it seems to be irritating as the nursing staff asks him periodically. Plan: Monitor for withdrawal. (7) Nicotine dependence Impression: The patient states that he began smoking at age 15 and has been a life long smoker. He states that he has cut back to just one PPD, as he has always smoked 2 PPD. He refuses a nicotine patch. His MCV is noted to be elevated at greater than 104, an expected finding of halfway tobacco dependence. Plan: Nicotine patch daily, PRN. Qualifiers: Nicotine product type: cigarettes (8) Homelessness Impression: The patient states that he has been homeless for at least the past year as his landlord raised the rent so much, that his disability would no longer support this. He has community help at [facility] by shelters who allow a soft bed to sleep in each night, and he tries to stay busy during the day. He admits that finding enough to each day is a challenge. Certainly with all of his medical problems this is not a great situation. He states, "I am not ready to ". He request a social service consult. Plan: Consult manager social work for support. (9) Cannabis dependence Impression: The patient admits to "3-4 hits per day of marijuana". Plan: Continue to encourage cessation. 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 He states that he is not prescribed any inhalers out patient. A chest x-ray showed hypoventilatory changes in the right lung base. He has been a life long tobacco user. He does not appear to be having an exacerbation, and does not require oxygen. The patient continues to be very congested upon exam today with continued bilateral crackles. A follow up x-ray shows pneumonia. He continues on xopenex nebs and an expectorant to treat pneumonia. Plan: Continue to monitor respiratory status and offer nebulizers if needed. Qualifiers: Emphysema type: unspecified Qualified Code(s): J43.9 - Emphysema, unspecified
[2017-10-07] MEDS: cefTRIAXone 2 GM in SODIUM CHLORIDE 0.9% MINIBAG 100 ML IV SCH (11:05)
[2017-10-07] MEDS: AZITHROMYCIN INJ 500 MG in SODIUM CHLORIDE 0.9% 250 ML IV SCH (11:36)
[2017-10-07] MEDS: WARFARIN 5 MG TABLET PO SCH (14:07)
[2017-10-08] MEDS: SODIUM CHLORIDE FLUSH 0.9% 10 ML SYRINGE IVP SCH ×3 (01:45→17:42)
[2017-10-08] MEDS: FUROSEMIDE 40 MG/4 ML VIAL IVP SCH ×3 (06:05→17:42)
[2017-10-08] MEDS: SODIUM CHLORIDE FLUSH 0.9% 10 ML SYRINGE IVP PRN ×2 (06:05→11:22)
--- NOTE | 2017-10-08 07:50 | PROVIDER PROGRESS NOTE ---
Subjective - Prog Note Date Prog Note Date: 10/08/17 Prog Note Time: 07:50 - Subjective Pt reports feeling: Improved Subjective: João has no complaints except for some mild left rib pain as he landed on this side when he fell on the pavement prior to EMS. He denies new symptoms such as fever, nausea, vomiting, dizziness, or increased shortness of breath. Current Medications - Current Medications Current Medications: Active Medications Acetaminophen (Tylenol) 650 mg PO Q4HR PRN PRN Reason: Pain or Fever > 38C (100.4F) Last Admin: 10/06/17 04:00 Dose: 650 mg Aspirin (Ecotrin) 81 mg PO DAILY [facility] Last Admin: 10/08/17 09:09 Dose: 81 mg Citalopram Hydrobromide (Celexa) 40 mg PO DAILY [facility] Last Admin: 10/08/17 09:09 Dose: 40 mg Enoxaparin Sodium (Lovenox) 60 mg SUBQ BID [facility] Furosemide (Lasix Inj 40 Mg Vial) 40 mg IVP 0600,1200,1800 [facility] Last Admin: 10/08/17 11:53 Dose: 40 mg Guaifenesin (Mucinex) 600 mg PO BID [facility] Last Admin: 10/08/17 09:09 Dose: 600 mg Azithromycin 500 mg/ Sodium (Chloride) 250 mls @ 250 mls/hr IV Q24H [facility] Last Infusion: 10/08/17 13:05 Dose: Infused Ceftriaxone Sodium 2 gm/ (Sodium Chloride) 100 mls @ 200 mls/hr IV Q24H [facility] Last Infusion: 10/08/17 12:01 Dose: Infused Ketorolac Tromethamine (Toradol Inj (15mg)) 15 mg IVP Q6HR PRN PRN Reason: PAIN Stop: 10/11/17 03:29 Levalbuterol HCl (Xopenex) 1.25 mg INH Q4H PRN PRN Reason: Shortness of Air/Wheezing Lidocaine HCl (Xylocaine Uro-Jet 2%) 2.5 ml UR Q6H PRN PRN Reason: PAIN Magnesium Oxide (Mag Ox) 400 mg PO BIDWM [facility] Metoprolol Succinate (Toprol Xl) 12.5 mg PO BID [facility] Last Admin: 10/08/17 09:09 Dose: 12.5 mg Polyethylene Glycol (Miralax) 17 gm PO DAILY [facility] Last Admin: 10/08/17 09:09 Dose: Not Given Sodium Chloride (Normal Saline Flush 0.9%) 10 ml IVP PRN PRN PRN Reason: NEEDED PER PROVIDER ORDERS Last Admin: 10/08/17 11:22 Dose: 10 ml Sodium Chloride (Normal Saline Flush 0.9%) 10 ml IVP 0100,0900,1700 [facility] Last Admin: 10/08/17 09:09 Dose: 10 ml Spironolactone (Aldactone) 50 mg PO DAILY [facility] Last Admin: 10/08/17 09:09 Dose: 50 mg Warfarin Sodium (Coumadin) 5 mg PO QDWARFARIN [facility] Last Admin: 10/08/17 14:06 Dose: 5 mg Warfarin [Coumadin] 5 mg PO DAILY 10/04/17 Objective - Vital Signs/Intake & Output Reviewed Vital Signs: Yes Vital Signs: Vital Signs x48h Temp Pulse Resp BP Pulse Ox 10/08/17 06:04 36.6 C 73 16 106/62 95 10/07/17 23:59 36.6 C 68 16 100/75 95 Intake & Output: Intake & Output 10/05/17 10/06/17 10/07/17 10/08/17 23:59 23:59 23:59 23:59 Intake Total 840 1550 1680 100 Output Total 100 2525 2295 275 Balance 740 -975 -615 -175 - Objective General Appearance: positive: No acute distress, Alert Eyes Bilateral: positive: Normal inspection, PERRL, No lid inflammation Eyes: OU Other (redness to bilateral conjuctivae) ENT: positive: ENT inspection nml, Pharyngeal erythema, Dry mucous membranes Neck: positive: Nml inspection, Thyroid nml, No JVD, Trachea midline Respiratory: positive: Chest non-tender, No respiratory distress, Rhonchi Cardiovascular: positive: No gallop, Irregularly irregular, Systolic murmur Peripheral Pulses: 2+ Radial (R), 2+ Radial (L) Abdomen: positive: Non-tender, No organomegaly, Nml bowel sounds, No distention Skin: positive: No rash, Warm, Dry, Cyanosis (to BLE) Extremities: positive: Pedal edema (chronic, now worsened BLE, but improved since admission.), Joint swelling Neurologic/Psychiatric: positive: Oriented x3, CN's nml (2-12), Motor nml, Weakness, Sensory loss (loss of sensation to BLEs), Depressed mood/affect Reflexes: Bicep (R): 3+, Bicep (L): 3+ - Lab Results Fish Bones: 10/08/17 11:00 10/08/17 11:00 ABX Reporting Has patient been on IV antibiotics over the past 48 hours?: Yes Assessment/Plan - Problem List (1) CHF exacerbation Impression: The patient is overall improving both clinically, and based on I/O weights and most recent labs in which the BNP is now 7001. He has been on IV lasix at 40 mg IV TID, which continues. He continues to have profound BLE pitting edema which causes difficulty with walking that he states is due to "being weak". Plan: Continue aggressive diuresis, monitor daily labs including BNP Qualifiers: Heart failure type: unspecified Qualified Code(s): I50.9 - Heart failure, unspecified (2) Left lower lobe pneumonia Impression: A repeat chest x-ray was obtained due to complaints of chills, and ongoing coarse crackles to bilateral lung cuello. Imaging confirms a new left low lobe infiltrate that resembles pneumonia. WBC count is normal today, and there are no reported fevers. He continues on xopenex nebs, scheduled and PRN, an expectorant and incentive spirometry, with an added flutter valve today. Plan: Contiue Rocephin and Azithromycin for this illness, continue respiratory care, await a sputum sample, and monitor vital signs. (3) Peripheral edema Impression: The patient has been struggling with increased BLE edema and this has caused him more difficulty with ambulating. He admits to this being a long standing problem for the past several years. He states that since he is homeless, he just tries to find a place to sit down all day since having such profound leg weakness. His BLE appear cyanotic and very cool to the touch. He has very little sensation using sharp stimuli. At least +3-4 pitting edema is appreciated. The patient states that ever since December, this has become much worse and understands it is directly related to his worsening heart function. Plan: SCDs, elevated feet and use AUDELIA wrap for improved circulation. (4) Facial trauma Impression: The patient's facial trauma was superficial and the lesion above his left eye. Today, some discoloration around the left eye is appearing and this is likely related to his original injury (fall). He has bilateral redness noted in his eyes, that is chronic. Plan: Continue to monitor. Qualifiers: Encounter type: initial encounter Qualified Code(s): S09.93XA - Unspecified injury of face, initial encounter (5) Fall Impression: The patient states that he falls, but usually does not get injured. Prior to this admission he admits to being a daily beer drinker, and admits to "3 or 4 hits of marijuana" daily, and continues to smoke cigarettes. He states that his fall was caused by his legs becoming too heavy from increased swelling, and as he was attempting to step up onto a curb. He lost his footing leading to a sudden accidental fall in which he reportedly became unconscious, hit his left forehead and bilateral hands on the pavement. The patient states that the next thing he remembers is being in the ambulance. Imaging in the ED was negative for head bleeding, or other abnormalities. He has no other apparent injuries. While inpatient, he continues to struggle with ambulation and stamina. Physical therapy evaluated and signed of as he is not thought to be at an increased risk for falls. A walker was ordered and the patient is happy as it has been delivered to his room. He has been using it for ambulating to the bathroom and in the halls. Plan: Treat CHF, continue to encourage ambulation. Consider further head imaging for neuro changes. Qualifiers: Encounter type: subsequent encounter Qualified Code(s): W19.XXXD - Unspecified fall, subsequent encounter (6) Alcoholism Impression: The patient admits to years of alcoholism. He reports that his current usage is about 24 ounces of beer daily. He did not appear to be in withdrawal upon exam. He states that he does not need any BEER while here. I will discontinue this as it seems to be irritating as the nursing staff asks him periodically. Plan: Monitor for withdrawal. (7) Nicotine dependence Impression: The patient states that he began smoking at age 15 and has been a life long smoker. He states that he has cut back to just one PPD, as he has always smoked 2 PPD. He refuses a nicotine patch. His MCV is noted to be elevated at greater than 104, an expected finding of halfway tobacco dependence. Plan: Nicotine patch daily, PRN. Qualifiers: Nicotine product type: cigarettes (8) Homelessness Impression: The patient states that he has been homeless for at least the past year as his landlord raised the rent so much, that his disability would no longer support this. He has community help at near by shelters who allow a soft bed to sleep in each night, and he tries to stay busy during the day. He admits that finding enough to each day is a challenge. Certainly with all of his medical problems this is not a great situation. He states, "I am not ready to ". He request a social service consult. Plan: Consult director social welfare for support. (9) Cannabis dependence Impression: The patient admits to "3-4 hits per day of marijuana". Plan: Continue to encourage cessation. 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 He states that he is not prescribed any inhalers out patient. A chest x-ray showed hypoventilatory changes in the right lung base. He has been a life long tobacco user. He does not appear to be having an exacerbation, and does not require oxygen. The patient continues to be very congested upon exam with continued bilateral crackles. A follow up x-ray shows pneumonia. He continues on xopenex nebs, IV antibiotics, and an expectorant to treat pneumonia. Plan: Continue to monitor respiratory status and offer nebulizers if needed. Qualifiers: Emphysema type: unspecified Qualified Code(s): J43.9 - Emphysema, unspecified
[2017-10-08] MEDS: SPIRONOLACTONE 25 MG TABLET PO SCH (09:09)
[2017-10-08] MEDS: CITALOPRAM 10 MG TABLET PO SCH (09:09)
[2017-10-08] MEDS: guaiFENesin 600 MG TABLET PO SCH ×2 (09:09→21:40)
[2017-10-08] MEDS: ASPIRIN EC 81 MG TABLET PO SCH (09:09)
[2017-10-08] MEDS: POLYETHYLENE GLYCOL 3350 17 GM PACKET PO SCH (09:09)
[2017-10-08] MEDS: METOPROLOL SUCCINATE 25 MG TABLET PO SCH ×2 (09:09→21:33)
[2017-10-08] MEDS: ENOXAPARIN 80 MG/0.8 ML SYRINGE SUBQ SCH (10:16)
[2017-10-08 11:12] LABS: BASOPHILS % (AUTO) 0.6 %; EOSINOPHILS % (AUTO) 0.6 %; HGB - HEMOGLOBIN 16.2 g/dL (14.0-18.0); LYMPHOCYTES # (AUTO) 0.9 10^3/uL (1.5-3.5); LYMPHOCYTES % (AUTO) 12.4 %; MEAN CORPUSCULAR HEMOGLOBIN 35.3 pg (27.0-31.0); MEAN CORPUSCULAR HGB CONC 34.2 g/dL (32.0-36.0); MEAN CORPUSCULAR VOLUME 103.3 fL (80.0-94.0); MEAN PLATELET VOLUME 9.5 fL (7.4-11.4); MONOCYTES # (AUTO) 0.7 10^3/uL (0.0-1.0); MONOCYTES % (AUTO) 9.7 %; NEUTROPHILS # (AUTO) 5.6 10^3/uL (1.5-6.6); NEUTROPHILS % (AUTO) 76.7 %; PLT - PLATELET COUNT 149 10^3/uL (130-450); RED BLOOD COUNT 4.59 10^6/uL (4.70-6.10); RED CELL DISTRIBUTION WIDTH 13.1 % (12.0-15.0); WHITE BLOOD COUNT 7.3 x10^3/uL (4.8-10.8)
[2017-10-08] MEDS: cefTRIAXone 2 GM in SODIUM CHLORIDE 0.9% MINIBAG 100 ML IV SCH (11:23)
[2017-10-08 11:25] LABS: ALBUMIN 3.4 g/dL (3.2-5.5); ALBUMIN/GLOBULIN RATIO 1.2 (1.0-2.2); BILIRUBIN,TOTAL 1.3 mg/dL (0.2-1.0); CALCIUM 8.4 mg/dL (8.5-10.3); CREATININE 0.8 mg/dL (0.6-1.2); TOTAL PROTEIN 6.2 g/dL (6.7-8.2)
[2017-10-08 11:27] LABS: INR 1.4 (0.8-1.2); PT - PROTHROMBIN TIME 15.5 secs (9.9-12.6)
[2017-10-08] MEDS: AZITHROMYCIN INJ 500 MG in SODIUM CHLORIDE 0.9% 250 ML IV SCH (11:54)
[2017-10-08] MEDS: WARFARIN 5 MG TABLET PO SCH (14:06)
[2017-10-08] MEDS: MAGNESIUM OXIDE 400 MG TABLET PO SCH (17:41)
[2017-10-08] MEDS: ENOXAPARIN 60 MG/0.6 ML SYRINGE SUBQ SCH (21:40)
[2017-10-09] MEDS: SODIUM CHLORIDE FLUSH 0.9% 10 ML SYRINGE IVP SCH ×3 (01:47→17:12)
[2017-10-09 06:10] LABS: INR 1.4 (0.8-1.2); PT - PROTHROMBIN TIME 16.1 secs (9.9-12.6)
[2017-10-09 06:12] LABS: BASOPHILS # (AUTO) 0.1 10^3/uL (0.0-0.1); BASOPHILS % (AUTO) 0.9 %; EOSINOPHILS # (AUTO) 0.1 10^3/uL (0.0-0.7); EOSINOPHILS % (AUTO) 1.4 %; HGB - HEMOGLOBIN 15.4 g/dL (14.0-18.0); LYMPHOCYTES # (AUTO) 1.1 10^3/uL (1.5-3.5); LYMPHOCYTES % (AUTO) 18.2 %; MEAN CORPUSCULAR HGB CONC 33.6 g/dL (32.0-36.0); MEAN CORPUSCULAR VOLUME 104.1 fL (80.0-94.0); MEAN PLATELET VOLUME 9.6 fL (7.4-11.4); MONOCYTES # (AUTO) 0.7 10^3/uL (0.0-1.0); MONOCYTES % (AUTO) 11.8 %; NEUTROPHILS % (AUTO) 67.7 %; PLT - PLATELET COUNT 135 10^3/uL (130-450); RED BLOOD COUNT 4.39 10^6/uL (4.70-6.10); RED CELL DISTRIBUTION WIDTH 13.2 % (12.0-15.0); WHITE BLOOD COUNT 5.9 x10^3/uL (4.8-10.8)
[2017-10-09 06:17] LABS: ALBUMIN 3.4 g/dL (3.2-5.5); ALBUMIN/GLOBULIN RATIO 1.3 (1.0-2.2); CALCIUM 8.4 mg/dL (8.5-10.3); CREATININE 0.9 mg/dL (0.6-1.2); TOTAL PROTEIN 6.1 g/dL (6.7-8.2)
[2017-10-09] MEDS: FUROSEMIDE 40 MG/4 ML VIAL IVP SCH ×3 (06:20→17:14)
[2017-10-09] MEDS: POLYETHYLENE GLYCOL 3350 17 GM PACKET PO SCH (08:14)
[2017-10-09] MEDS: CITALOPRAM 10 MG TABLET PO SCH (08:46)
[2017-10-09] MEDS: SPIRONOLACTONE 25 MG TABLET PO SCH (08:46)
[2017-10-09] MEDS: guaiFENesin 600 MG TABLET PO SCH ×2 (08:49→22:11)
[2017-10-09] MEDS: ASPIRIN EC 81 MG TABLET PO SCH (08:50)
[2017-10-09] MEDS: METOPROLOL SUCCINATE 25 MG TABLET PO SCH ×2 (08:50→22:11)
[2017-10-09] MEDS: MAGNESIUM OXIDE 400 MG TABLET PO SCH ×2 (08:51→17:12)
[2017-10-09] MEDS: ENOXAPARIN 60 MG/0.6 ML SYRINGE SUBQ SCH (08:51)
[2017-10-09] MEDS ORDERED: cefTRIAXone 2 GM VIAL ONE (11:35)
[2017-10-09] MEDS ORDERED: WARFARIN 5 MG TABLET PO ONE (11:36)
--- NOTE | 2017-10-09 11:38 | PROVIDER PROGRESS NOTE ---
Subjective - Prog Note Date Prog Note Date: 10/09/17 Prog Note Time: 09:00 - Subjective Pt reports feeling: Improved Subjective: João states that he had some mild dizziness with palpitations while in the bathroom. He denies any new symptoms such as nausea, vomiting, increased shortness of breath, an increased cough or headaches. He admits to an overall improvement of his leg edema. Objective - Vital Signs/Intake & Output Reviewed Vital Signs: Yes Vital Signs: Vital Signs x48h Temp Pulse Pulse Resp BP Pulse Ox 10/09/17 10:50 96 20 10/09/17 08:00 36.3 C L 141 H 22 104/80 96 10/09/17 06:05 68 109/85 H Intake & Output: Intake & Output 10/06/17 10/07/17 10/08/17 10/09/17 23:59 23:59 23:59 23:59 Intake Total 1550 1680 1940 720 Output Total 2525 2295 2650 850 Balance -975 -615 -710 -130 - Objective General Appearance: positive: No acute distress, Alert Eyes Bilateral: positive: Normal inspection, PERRL Eyes: OU Conjunctivae pale, OU Scleral icterus ENT: positive: ENT inspection nml, Pharynx nml, Dry mucous membranes Neck: positive: Nml inspection, Thyroid nml, No JVD, Trachea midline Respiratory: positive: Chest non-tender, No respiratory distress, Rhonchi Cardiovascular: positive: No gallop, Irregularly irregular, Tachycardia, Systolic murmur, Decreased pulse(s) Peripheral Pulses: 1+ Radial (R), 1+ Radial (L), 1+ Popliteal (R), 1+ Popliteal (L) (faint) Abdomen: positive: Non-tender, No organomegaly, Nml bowel sounds, No distention Back: positive: Nml inspection Skin: positive: No rash, Warm, Dry, Cyanosis, Other (dusky skin tone at times) Extremities: positive: Non-tender, Pedal edema (reduced by 1/2 since the time of admission.), Joint swelling Neurologic/Psychiatric: positive: Oriented x3, CN's nml (2-12), Motor nml, Sensation nml, Depressed mood/affect Reflexes: Bicep (R): 3+, Bicep (L): 3+ - Lab Results Fish Bones: 10/10/17 05:40 10/10/17 05:40 Other Labs: Lab Results x24hrs 10/09/17 10/09/17 10/09/17 Range/Units 05:15 05:15 05:15 WBC (4.8-10.8) x10^3/uL RBC (4.70-6.10) 10^6/uL Hgb (14.0-18.0) g/dL Hct (42.0-52.0) % MCV (80.0-94.0) fL MCH (27.0-31.0) pg MCHC (32.0-36.0) g/dL RDW (12.0-15.0) % Plt Count (130-450) 10^3/uL MPV (7.4-11.4) fL Neut # (Auto) (1.5-6.6) 10^3/uL Lymph # (Auto) (1.5-3.5) 10^3/uL [place] # (Auto) (0.0-1.0) 10^3/uL Eos # (Auto) (0.0-0.7) 10^3/uL Baso # (Auto) (0.0-0.1) 10^3/uL Absolute Nucleated RBC x10^3/uL Nucleated RBC % /100WBC PT 16.1 H (9.9-12.6) secs INR 1.4 H (0.8-1.2) Sodium 132 L (135-145) mmol/L Potassium 4.0 (3.5-5.0) mmol/L Chloride 93 L (101-111) mmol/L Carbon Dioxide 30 (21-32) mmol/L Anion Gap 9.0 (6-13) BUN 20 (6-20) mg/dL Creatinine 0.9 (0.6-1.2) mg/dL Estimated GFR (MDRD) 87 L (>89) Glucose 94 (70-100) mg/dL Calcium 8.4 L (8.5-10.3) mg/dL Total Bilirubin 1.0 (0.2-1.0) mg/dL AST 24 (10-42) IU/L ALT 21 (10-60) IU/L Alkaline Phosphatase 72 (42-121) IU/L B-Natriuretic Peptide 6963.00 H (5-100) pg/mL Total Protein 6.1 L (6.7-8.2) g/dL Albumin 3.4 (3.2-5.5) g/dL Globulin 2.7 (2.1-4.2) g/dL Albumin/Globulin Ratio 1.3 (1.0-2.2) 10/09/17 10/08/17 Range/Units 05:15 11:00 WBC 5.9 (4.8-10.8) x10^3/uL RBC 4.39 L (4.70-6.10) 10^6/uL Hgb 15.4 (14.0-18.0) g/dL Hct 45.7 (42.0-52.0) % MCV 104.1 H (80.0-94.0) fL MCH 35.0 H (27.0-31.0) pg MCHC 33.6 (32.0-36.0) g/dL RDW 13.2 (12.0-15.0) % Plt Count 135 (130-450) 10^3/uL MPV 9.6 (7.4-11.4) fL Neut # (Auto) 4.0 (1.5-6.6) 10^3/uL Lymph # (Auto) 1.1 L (1.5-3.5) 10^3/uL [place] # (Auto) 0.7 (0.0-1.0) 10^3/uL Eos # (Auto) 0.1 (0.0-0.7) 10^3/uL Baso # (Auto) 0.1 (0.0-0.1) 10^3/uL Absolute Nucleated RBC 0.01 x10^3/uL Nucleated RBC % 0.1 /100WBC PT (9.9-12.6) secs INR (0.8-1.2) Sodium (135-145) mmol/L Potassium (3.5-5.0) mmol/L Chloride (101-111) mmol/L Carbon Dioxide (21-32) mmol/L Anion Gap (6-13) BUN (6-20) mg/dL Creatinine (0.6-1.2) mg/dL Estimated GFR (MDRD) (>89) Glucose (70-100) mg/dL Calcium (8.5-10.3) mg/dL Total Bilirubin (0.2-1.0) mg/dL AST (10-42) IU/L ALT (10-60) IU/L Alkaline Phosphatase (42-121) IU/L B-Natriuretic Peptide 7001.00 H (5-100) pg/mL Total Protein (6.7-8.2) g/dL Albumin (3.2-5.5) g/dL Globulin (2.1-4.2) g/dL Albumin/Globulin Ratio (1.0-2.2) ABX Reporting Has patient been on IV antibiotics over the past 48 hours?: Yes Assessment/Plan - Problem List (1) CHF exacerbation Impression: The patient is overall improving both clinically, and based on I/O weights and most recent labs in which the BNP is now 6963. He has been on IV lasix at 40 mg IV TID, and this will only be given twice today due to RVR. He continues to have BLE pitting edema that is improving slightly each day. The swelling is thought to cause difficulty. He is using AUDELIA wraps rather than FAIZAN hose for comfort. Plan: Start oral lasix in the AM, monitor daily labs including BNP Qualifiers: Heart failure type: unspecified Qualified Code(s): I50.9 - Heart failure, unspecified (2) Left lower lobe pneumonia Impression: A repeat chest x-ray was obtained due to complaints of chills, and ongoing coarse crackles to bilateral lung cuello. Imaging confirms a new left low lobe infiltrate that resembles pneumonia. WBC count is normal today, and there are no reported fevers. He continues on xopenex nebs, scheduled, PRN, an expectorant and incentive spirometry, with an added flutter valve. The Azithromycin has been stopped due to the Warfarin possibly being ineffective. Plan: Continue Rocephin, continue respiratory care, await a sputum sample, and monitor vital signs. (3) Peripheral edema Impression: The patient has been struggling with increased BLE edema and this has caused him more difficulty with ambulating. He admits to this being a long standing problem for the past several years. He states that since he is homeless, he just tries to find a place to sit down all day since having such profound leg weakness. He has very little sensation using sharp stimuli. The patient states that ever since December, this has become much worse and understands it is directly related to his worsening heart function. Today upon exam, the patient has marked improvement with much less edema to his BLE with improved ambulation. Plan: SCDs, elevated feet and use AUDELIA wrap for improved circulation. (4) Facial trauma Impression: The patient's facial trauma was superficial and the lesion above his left eye. Today, some discoloration around the left eye is appearing and this is likely related to his original injury (fall). He has bilateral redness noted in his eyes, that is chronic. Plan: Continue to monitor. Qualifiers: Encounter type: initial encounter Qualified Code(s): S09.93XA - Unspecified injury of face, initial encounter (5) Fall Impression: The patient states that he falls, but usually does not get injured. Prior to this admission he admits to being a daily beer drinker, and admits to "3 or 4 hits of marijuana" daily, and continues to smoke cigarettes. He states that his fall was caused by his legs becoming too heavy from increased swelling, and as he was attempting to step up onto a curb. He lost his footing leading to a sudden accidental fall in which he reportedly became unconscious, hit his left forehead and bilateral hands on the pavement. The patient states that the next thing he remembers is being in the ambulance. Imaging in the ED was negative for head bleeding, or other abnormalities. He has no other apparent injuries. While inpatient, he continues to struggle with ambulation and stamina. Physical therapy evaluated and signed of as he is not thought to be at an increased risk for falls. A walker was ordered and the patient is happy as it has been delivered to his room. He has been using it for ambulating to the bathroom and in the halls. Plan: Treat CHF, continue to encourage ambulation. Consider further head imaging for neuro changes. Qualifiers: Encounter type: subsequent encounter Qualified Code(s): W19.XXXD - Unspecified fall, subsequent encounter (6) Alcoholism Impression: The patient admits to years of alcoholism. He reports that his current usage is about 24 ounces of beer daily. He did not appear to be in withdrawal upon exam. He states that he does not need any BEER while here. I will discontinue this as it seems to be irritating as the nursing staff asks him periodically. Plan: Monitor for withdrawal. (7) Nicotine dependence Impression: The patient states that he began smoking at age 15 and has been a life long smoker. He states that he has cut back to just one PPD, as he has always smoked 2 PPD. He refuses a nicotine patch. 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 Plan: Nicotine patch daily, PRN. Qualifiers: Nicotine product type: cigarettes (8) Homelessness Impression: The patient states that he has been homeless for at least the past year as his landlord raised the rent so much, that his disability would no longer support this. He has community help at near by shelters who allow a soft bed to sleep in each night, and he tries to stay busy during the day. He admits that finding enough to each day is a challenge. Certainly with all of his medical problems this is not a great situation. He states, "I am not ready to ". He request a social service consult. Plan: Consult manager social work for support. (9) Cannabis dependence Impression: The patient admits to "3-4 hits per day of marijuana". Plan: Continue to encourage cessation. 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 He states that he is not prescribed any inhalers out patient. A chest x-ray showed hypoventilatory changes in the right lung base. He has been a life long tobacco user. He does not appear to be having an exacerbation, and does not require oxygen. The patient continues to be very congested upon exam with continued bilateral crackles. A follow up x-ray shows pneumonia. He continues on xopenex nebs, IV antibiotics, and an expectorant to treat pneumonia. Plan: Continue to monitor respiratory status and offer nebulizers if needed. Qualifiers: Emphysema type: unspecified Qualified Code(s): J43.9 - Emphysema, unspecified
[2017-10-09] MEDS: cefTRIAXone 2 GM in SODIUM CHLORIDE 0.9% MINIBAG 100 ML IV SCH (11:49)
[2017-10-09] MEDS ORDERED: SODIUM CHLORIDE FLUSH 0.9% 10 ML SYRINGE ONE (12:14)
[2017-10-09] MEDS: AZITHROMYCIN INJ 500 MG in SODIUM CHLORIDE 0.9% 250 ML IV SCH (12:38)
[2017-10-09] MEDS: PRENATAL VITAMIN TABLET PO SCH (12:42)
[2017-10-09] MEDS: WARFARIN 1 MG TABLET PO SCH (12:44)
[2017-10-09] MEDS: WARFARIN 5 MG TABLET PO SCH (12:46)
[2017-10-09] MEDS: DIGOXIN 500 MCG/2 ML AMP IVP SCH (14:39)
[2017-10-10] MEDS: SODIUM CHLORIDE FLUSH 0.9% 10 ML SYRINGE IVP SCH ×3 (00:57→16:13)
[2017-10-10] MEDS: FUROSEMIDE 40 MG TABLET PO SCH ×2 (05:29→14:17)
[2017-10-10 06:12] LABS: BASOPHILS # (AUTO) 0.1 10^3/uL (0.0-0.1); EOSINOPHILS # (AUTO) 0.1 10^3/uL (0.0-0.7); EOSINOPHILS % (AUTO) 1.4 %; HGB - HEMOGLOBIN 15.1 g/dL (14.0-18.0); LYMPHOCYTES # (AUTO) 1.1 10^3/uL (1.5-3.5); LYMPHOCYTES % (AUTO) 20.2 %; MEAN CORPUSCULAR HEMOGLOBIN 35.2 pg (27.0-31.0); MEAN CORPUSCULAR HGB CONC 33.8 g/dL (32.0-36.0); MEAN PLATELET VOLUME 9.5 fL (7.4-11.4); MONOCYTES # (AUTO) 0.6 10^3/uL (0.0-1.0); MONOCYTES % (AUTO) 11.6 %; NEUTROPHILS # (AUTO) 3.6 10^3/uL (1.5-6.6); NEUTROPHILS % (AUTO) 65.8 %; PLT - PLATELET COUNT 135 10^3/uL (130-450); RED CELL DISTRIBUTION WIDTH 13.1 % (12.0-15.0); WHITE BLOOD COUNT 5.5 x10^3/uL (4.8-10.8)
[2017-10-10 06:22] LABS: ALBUMIN 3.4 g/dL (3.2-5.5); ALBUMIN/GLOBULIN RATIO 1.3 (1.0-2.2); BILIRUBIN,TOTAL 0.9 mg/dL (0.2-1.0); CALCIUM 8.7 mg/dL (8.5-10.3); CREATININE 0.9 mg/dL (0.6-1.2); TOTAL PROTEIN 6.1 g/dL (6.7-8.2)
[2017-10-10 06:40] LABS: INR 1.3 (0.8-1.2); PT - PROTHROMBIN TIME 14.8 secs (9.9-12.6)
[2017-10-10] MEDS: WARFARIN 5 MG TABLET PO SCH (08:23)
[2017-10-10] MEDS: PRENATAL VITAMIN TABLET PO SCH (08:23)
[2017-10-10] MEDS: guaiFENesin 600 MG TABLET PO SCH ×2 (08:24→20:54)
[2017-10-10] MEDS: CITALOPRAM 10 MG TABLET PO SCH (08:24)
[2017-10-10] MEDS: ASPIRIN EC 81 MG TABLET PO SCH (08:24)
[2017-10-10] MEDS: METOPROLOL SUCCINATE 25 MG TABLET PO SCH ×2 (08:24→20:54)
[2017-10-10] MEDS: SPIRONOLACTONE 25 MG TABLET PO SCH (08:24)
[2017-10-10] MEDS: DIGOXIN 500 MCG/2 ML AMP IVP SCH (08:24)
[2017-10-10] MEDS: WARFARIN 1 MG TABLET PO SCH (08:24)
[2017-10-10] MEDS: MAGNESIUM OXIDE 400 MG TABLET PO SCH ×2 (08:24→16:13)
[2017-10-10] MEDS: POLYETHYLENE GLYCOL 3350 17 GM PACKET PO SCH (08:27)
[2017-10-10] MEDS ORDERED: WARFARIN 5 MG TABLET PO SCH (10:00)
--- NOTE | 2017-10-10 10:06 | PROVIDER PROGRESS NOTE ---
Subjective - Prog Note Date Prog Note Date: 10/10/17 Prog Note Time: 10:05 - Subjective Pt reports feeling: Improved Subjective: João has no complaints and is enjoying his food. He denies any new symptoms and is sleeping well. Current Medications - Current Medications Current Medications: Active Medications Acetaminophen (Tylenol) 650 mg PO Q4HR PRN PRN Reason: Pain or Fever > 38C (100.4F) Last Admin: 10/06/17 04:00 Dose: 650 mg Aspirin (Ecotrin) 81 mg PO DAILY [facility] Last Admin: 10/10/17 08:24 Dose: 81 mg Citalopram Hydrobromide (Celexa) 40 mg PO DAILY [facility] Last Admin: 10/10/17 08:24 Dose: 40 mg Furosemide (Lasix) 40 mg PO BIDDIURETIC [facility] Last Admin: 10/10/17 05:29 Dose: 40 mg Guaifenesin (Mucinex) 600 mg PO BID [facility] Last Admin: 10/10/17 08:24 Dose: 600 mg Ceftriaxone Sodium 2 gm/ (Sodium Chloride) 100 mls @ 200 mls/hr IV Q24H [facility] Last Infusion: 10/09/17 12:20 Dose: Infused Ketorolac Tromethamine (Toradol Inj (15mg)) 15 mg IVP Q6HR PRN PRN Reason: PAIN Stop: 10/11/17 03:29 Levalbuterol HCl (Xopenex) 1.25 mg INH Q4H PRN PRN Reason: Shortness of Air/Wheezing Lidocaine HCl (Xylocaine Uro-Jet 2%) 2.5 ml UR Q6H PRN PRN Reason: PAIN Magnesium Oxide (Mag Ox) 400 mg PO BIDWM [facility] Last Admin: 10/10/17 08:24 Dose: 400 mg Metoprolol Succinate (Toprol Xl) 12.5 mg PO BID [facility] Last Admin: 10/10/17 08:24 Dose: 12.5 mg Polyethylene Glycol (Miralax) 17 gm PO DAILY [facility] Last Admin: 10/10/17 08:27 Dose: Not Given Multivit/Folic Acid/Iron (Trinatal Rx 1) 1 tab PO DAILYWM [facility] Last Admin: 10/10/17 08:23 Dose: 1 tab Sodium Chloride (Normal Saline Flush 0.9%) 10 ml IVP PRN PRN PRN Reason: NEEDED PER PROVIDER ORDERS Last Admin: 10/08/17 11:22 Dose: 10 ml Sodium Chloride (Normal Saline Flush 0.9%) 10 ml IVP 0100,0900,1700 [facility] Last Admin: 10/10/17 08:23 Dose: 10 ml Spironolactone (Aldactone) 50 mg PO DAILY [facility] Last Admin: 10/10/17 08:24 Dose: 50 mg Warfarin Sodium (Coumadin) 5 mg PO DAILY [facility] Last Admin: 10/10/17 08:23 Dose: 5 mg Warfarin Sodium (Coumadin) 2 mg PO DAILY [facility] Last Admin: 10/10/17 08:24 Dose: 2 mg Warfarin Sodium (Coumadin) 5 mg PO ONCE ONE Stop: 10/10/17 10:04 Warfarin [Coumadin] 5 mg PO DAILY 10/04/17 Objective - Vital Signs/Intake & Output Reviewed Vital Signs: Yes Vital Signs: Vital Signs x48h Temp Pulse Pulse Pulse Resp BP Pulse Ox 10/10/17 08:24 136 H 10/10/17 07:50 36.9 C 102 H 18 101/76 97 10/10/17 05:00 36.4 C L 90 18 103/76 97 Intake & Output: Intake & Output 10/07/17 10/08/17 10/09/17 10/10/17 23:59 23:59 23:59 23:59 Intake Total 1680 1940 1610 350 Output Total 2295 2650 1925 200 [facility] -[phone] 150 - Objective General Appearance: positive: No acute distress, Alert Eyes Bilateral: positive: Normal inspection, PERRL Eyes: OU Other (bilateral eye redness.) ENT: positive: Pharyngeal erythema, 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), Dry mucous membranes Neck: positive: Thyroid nml, No JVD, Stiff neck Respiratory: positive: Chest non-tender, No respiratory distress, Other ( scattered crackles, shallow breathing) Cardiovascular: positive: No gallop, Irregularly irregular, Systolic murmur Peripheral Pulses: 1+ Radial (R), 1+ Radial (L) Abdomen: positive: Non-tender, No organomegaly, Nml bowel sounds, No distention Back: positive: Nml inspection Skin: positive: No rash, Warm, Dry Extremities: positive: Non-tender, Pedal edema (chronic BLE-improved.), Joint swelling Neurologic/Psychiatric: positive: Oriented x3, CN's nml (2-12), Motor nml, Sensation nml, Weakness, Depressed mood/affect Reflexes: Bicep (R): 3+, Bicep (L): 3+ - Lab Results Fish Bones: 10/10/17 05:40 10/10/17 05:40 Other Labs: Lab Results x24hrs 10/10/17 10/10/17 10/10/17 Range/Units 05:40 05:40 05:40 WBC (4.8-10.8) x10^3/uL RBC (4.70-6.10) 10^6/uL Hgb (14.0-18.0) g/dL Hct (42.0-52.0) % MCV (80.0-94.0) fL MCH (27.0-31.0) pg MCHC (32.0-36.0) g/dL RDW (12.0-15.0) % Plt Count (130-450) 10^3/uL MPV (7.4-11.4) fL Neut # (Auto) (1.5-6.6) 10^3/uL Lymph # (Auto) (1.5-3.5) 10^3/uL [place] # (Auto) (0.0-1.0) 10^3/uL Eos # (Auto) (0.0-0.7) 10^3/uL Baso # (Auto) (0.0-0.1) 10^3/uL Absolute Nucleated RBC x10^3/uL Nucleated RBC % /100WBC PT 14.8 H (9.9-12.6) secs INR 1.3 H (0.8-1.2) Sodium 134 L (135-145) mmol/L Potassium 4.0 (3.5-5.0) mmol/L Chloride 95 L (101-111) mmol/L Carbon Dioxide 29 (21-32) mmol/L Anion Gap 10.0 (6-13) BUN 21 H (6-20) mg/dL Creatinine 0.9 (0.6-1.2) mg/dL Estimated GFR (MDRD) 87 L (>89) Glucose 92 (70-100) mg/dL Calcium 8.7 (8.5-10.3) mg/dL Total Bilirubin 0.9 (0.2-1.0) mg/dL AST 29 (10-42) IU/L ALT 30 (10-60) IU/L Alkaline Phosphatase 81 (42-121) IU/L B-Natriuretic Peptide 6801.00 H (5-100) pg/mL Total Protein 6.1 L (6.7-8.2) g/dL Albumin 3.4 (3.2-5.5) g/dL Globulin 2.7 (2.1-4.2) g/dL Albumin/Globulin Ratio 1.3 (1.0-2.2) 10/10/17 Range/Units 05:40 WBC 5.5 (4.8-10.8) x10^3/uL RBC 4.30 L (4.70-6.10) 10^6/uL Hgb 15.1 (14.0-18.0) g/dL Hct 44.8 (42.0-52.0) % MCV 104.0 H (80.0-94.0) fL MCH 35.2 H (27.0-31.0) pg MCHC 33.8 (32.0-36.0) g/dL RDW 13.1 (12.0-15.0) % Plt Count 135 (130-450) 10^3/uL MPV 9.5 (7.4-11.4) fL Neut # (Auto) 3.6 (1.5-6.6) 10^3/uL Lymph # (Auto) 1.1 L (1.5-3.5) 10^3/uL [place] # (Auto) 0.6 (0.0-1.0) 10^3/uL Eos # (Auto) 0.1 (0.0-0.7) 10^3/uL Baso # (Auto) 0.1 (0.0-0.1) 10^3/uL Absolute Nucleated RBC 0.00 x10^3/uL Nucleated RBC % 0.1 /100WBC PT (9.9-12.6) secs INR (0.8-1.2) Sodium (135-145) mmol/L Potassium (3.5-5.0) mmol/L Chloride (101-111) mmol/L Carbon Dioxide (21-32) mmol/L Anion Gap (6-13) BUN (6-20) mg/dL Creatinine (0.6-1.2) mg/dL Estimated GFR (MDRD) (>89) Glucose (70-100) mg/dL Calcium (8.5-10.3) mg/dL Total Bilirubin (0.2-1.0) mg/dL AST (10-42) IU/L ALT (10-60) IU/L Alkaline Phosphatase (42-121) IU/L B-Natriuretic Peptide (5-100) pg/mL Total Protein (6.7-8.2) g/dL Albumin (3.2-5.5) g/dL Globulin (2.1-4.2) g/dL Albumin/Globulin Ratio (1.0-2.2) ABX Reporting Has patient been on IV antibiotics over the past 48 hours?: Yes Assessment/Plan - Problem List (1) CHF exacerbation Impression: The patient is overall improving both clinically, and based on I/O weights and most recent labs in which the BNP is now 6963. The lasix was changed to an oral form today. He continues to have BLE pitting edema that is improving slightly each day. The swelling is thought to cause difficulty. He is using AUDELIA wraps rather than FAIZAN hose for comfort. Plan: Continue oral lasix, monitor daily labs including BNP. Qualifiers: Heart failure type: unspecified Qualified Code(s): I50.9 - Heart failure, unspecified (2) Left lower lobe pneumonia Impression: A repeat chest x-ray was obtained due to complaints of chills, and ongoing coarse crackles to bilateral lung cuello. Imaging confirms a new left low lobe infiltrate that resembles pneumonia. WBC count is normal today, and there are no reported fevers. He continues on xopenex nebs, scheduled, PRN, an expectorant and incentive spirometry, with an added flutter valve. The Azithromycin has been stopped due to the Warfarin possibly being ineffective. Plan: Continue Rocephin, continue respiratory care, await a sputum sample, and monitor vital signs. (3) Peripheral edema Impression: The patient has been struggling with increased BLE edema and this has caused him more difficulty with ambulating. He admits to this being a long standing problem for the past several years. He states that since he is homeless, he just tries to find a place to sit down all day since having such profound leg weakness. He has very little sensation using sharp stimuli. The patient states that ever since December, this has become much worse and understands it is directly related to his worsening heart function. Today upon exam, the patient has marked improvement with much less edema to his BLE with improved ambulation. Plan: SCDs, elevated feet and use AUDELIA wrap for improved circulation. (4) Facial trauma Impression: The patient's facial trauma was superficial and the lesion above his left eye. There is still some discoloration around the left eye is appearing and this is likely related to his original injury (fall). He has bilateral redness noted in his eyes, that is chronic. Plan: Continue to monitor. Qualifiers: Encounter type: initial encounter Qualified Code(s): S09.93XA - Unspecified injury of face, initial encounter (5) Fall Impression: The patient states that he falls, but usually does not get injured. Prior to this admission he admits to being a daily beer drinker, and admits to "3 or 4 hits of marijuana" daily, and continues to smoke cigarettes. He states that his fall was caused by his legs becoming too heavy from increased swelling, and as he was attempting to step up onto a curb. He lost his footing leading to a sudden accidental fall in which he reportedly became unconscious, hit his left forehead and bilateral hands on the pavement. The patient states that the next thing he remembers is being in the ambulance. Imaging in the ED was negative for head bleeding, or other abnormalities. He has no other apparent injuries. While inpatient, he continues to struggle with ambulation and stamina. Physical therapy evaluated and signed of as he is not thought to be at an increased risk for falls. A walker was ordered and the patient is happy as it has been delivered to his room. He has been using it for ambulating to the bathroom and in the halls. Social work is reaching out to the [employer] for a possible 4-wheeled walker. Plan: Treat CHF, continue to encourage ambulation. Consider further head imaging for neuro changes. Qualifiers: Encounter type: subsequent encounter Qualified Code(s): W19.XXXD - Unspecified fall, subsequent encounter (6) Alcoholism Impression: The patient admits to years of alcoholism. He reports that his current usage is about 24 ounces of beer daily. He did not appear to be in withdrawal upon exam. He states that he does not need any BEER while here. I will discontinue this as it seems to be irritating as the nursing staff asks him periodically. Plan: Monitor for withdrawal. (7) Nicotine dependence Impression: The patient states that he began smoking at age 15 and has been a life long smoker. He states that he has cut back to just one PPD, as he has always smoked 2 PPD. He refuses a nicotine patch. His MCV is noted to be elevated at greater than 104, an expected finding of senior care tobacco dependence. Plan: Nicotine patch daily, PRN Qualifiers: Nicotine product type: cigarettes (8) Homelessness Impression: The patient states that he has been homeless for at least the past year as his landlord raised the rent so much, that his disability would no longer support this. He has community help at [facility] by shelters who allow a soft bed to sleep in each night, and he tries to stay busy during the day. He admits that finding enough to each day is a challenge. Certainly with all of his medical problems this is not a great situation. He states, "I am not ready to ". He request a social service consult. Plan: Consult geriatric social work professor for support. (9) Cannabis dependence Impression: The patient admits to "3-4 hits per day of marijuana". Plan: Continue to encourage cessation. 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 He states that he is not prescribed any inhalers out patient. A chest x-ray showed hypoventilatory changes in the right lung base. He has been a life long tobacco user. He does not appear to be having an exacerbation, and does not require oxygen. The patient continues to be very congested upon exam with continued bilateral crackles. A follow up x-ray shows pneumonia. He continues on xopenex nebs, IV antibiotics, and an expectorant to treat pneumonia. Plan: Continue to monitor respiratory status and offer nebulizers if needed. Qualifiers: Emphysema type: unspecified Qualified Code(s): J43.9 - Emphysema, unspecified
[2017-10-10] MEDS: cefTRIAXone 2 GM in SODIUM CHLORIDE 0.9% MINIBAG 100 ML IV SCH (10:45)
--- NOTE | 2017-10-10 12:19 | XRAY Report ---
Reason: left rib pain, cough Procedure Date: 10/10/2017 Accession Number: [id number] / [id number] Procedure: XR - Chest 1 View X-Ray CPT Code: 39302 FULL RESULT: EXAM: CHEST RADIOGRAPHY EXAM DATE: 10/10/2017 11:59 AM. CLINICAL HISTORY: Left rib pain, cough. COMPARISON: 09/28/2017. TECHNIQUE: Right AP view. FINDINGS: Lungs/Pleura: Mild right basilar lung consolidation, decreased. Left lung clear. No pneumothorax or gross pleural fluid. Mediastinum: Mild cardiomegaly, as before. Other: Bones grossly unremarkable. IMPRESSION: 1. Improved mild right basilar lung consolidation. 2. Left lung clear. 3. Mild cardiomegaly, as before. RADIA
[2017-10-11] MEDS: SODIUM CHLORIDE FLUSH 0.9% 10 ML SYRINGE IVP SCH ×3 (00:43→17:10)
[2017-10-11] MEDS: FUROSEMIDE 40 MG TABLET PO SCH ×2 (05:31→14:49)
--- NOTE | 2017-10-11 08:33 | PROVIDER PROGRESS NOTE ---
Subjective - Prog Note Date Prog Note Date: 10/11/17 Prog Note Time: 08:33 - Subjective Pt reports feeling: Improved Subjective: João states he wishes that he would have skinny legs again. He admits to nausea today and being extra sleepy. He denies new symptoms such as vomiting, dizziness, increased shortness of breath, or a new cough. Objective - Vital Signs/Intake & Output Reviewed Vital Signs: Yes Vital Signs: Vital Signs x48h Temp Pulse Resp BP Pulse Ox 10/11/17 08:24 36.5 C 59 L 18 121/79 97 10/11/17 05:00 36.3 C L 88 16 104/82 H 99 10/11/17 00:43 36.8 C 67 16 92/74 96 Intake & Output: Intake & Output 10/08/17 10/09/17 10/10/17 10/11/17 23:59 23:59 23:59 23:59 Intake Total 1940 1610 1790 Output Total 2650 1925 1100 400 Balance -710 -315 690 -400 - Objective General Appearance: positive: No acute distress, Alert Eyes Bilateral: positive: Normal inspection, PERRL Eyes: OU Conjunctivae pale ENT: positive: ENT inspection nml, Pharyngeal erythema, Dry mucous membranes Neck: positive: Nml inspection, Thyroid nml, No JVD, Trachea midline, Stiff neck Respiratory: positive: Chest non-tender, No respiratory distress, Rhonchi Cardiovascular: positive: No gallop, Irregularly irregular, Tachycardia, Systolic murmur, Decreased pulse(s) Peripheral Pulses: 1+ Radial (R), 1+ Radial (L) Abdomen: positive: Non-tender, No organomegaly, Nml bowel sounds, No distention Back: positive: Nml inspection Skin: positive: No rash, Warm, Dry Extremities: positive: Pedal edema (stable BLE, pitting.), Joint swelling Neurologic/Psychiatric: positive: Oriented x3, CN's nml (2-12), Motor nml, Weakness, Sensory loss, Depressed mood/affect Reflexes: Bicep (R): 2+, Bicep (L): 2+ - Lab Results Fish Bones: 10/12/17 05:40 10/12/17 05:40 ABX Reporting Has patient been on IV antibiotics over the past 48 hours?: Yes Assessment/Plan - Problem List (1) CHF exacerbation Impression: The patient is overall improving both clinically, and based on I/O weights and most recent labs in which the BNP is now worsened at >8000. The lasix was changed to an oral form today. He continues to have BLE pitting edema that is improving slightly each day. The swelling is thought to cause difficulty. He is using AUDELIA wraps rather than FAIZAN hose for comfort. Plan: Continue IV lasix, monitor daily labs including BNP. Qualifiers: Heart failure type: unspecified Qualified Code(s): I50.9 - Heart failure, unspecified (2) Left lower lobe pneumonia Impression: A repeat chest x-ray was obtained due to complaints of chills, and ongoing coarse crackles to bilateral lung cuello. Imaging confirms a new left low lobe infiltrate that resembles pneumonia. WBC count is normal today, and there are no reported fevers. He continues on xopenex nebs, scheduled, PRN, an expectorant and incentive spirometry, with an added flutter valve. The Azithromycin has been stopped due to the Warfarin possibly being ineffective. Plan: Continue Rocephin, continue respiratory care, await a sputum sample, and monitor vital signs. (3) Peripheral edema Impression: The patient has been struggling with increased BLE edema and this has caused him more difficulty with ambulating. He admits to this being a long standing problem for the past several years. He states that since he is homeless, he just tries to find a place to sit down all day since having such profound leg weakness. He has very little sensation using sharp stimuli. The patient states that ever since December, this has become much worse and understands it is directly related to his worsening heart function. Plan: SCDs, elevated feet and use AUDELIA wrap for improved circulation. (4) Facial trauma Impression: The patient's facial trauma was superficial and the lesion above his left eye. There is still some discoloration around the left eye is appearing and this is likely related to his original injury (fall). He has bilateral redness noted in his eyes, that is chronic. Plan: Continue to monitor. Qualifiers: Encounter type: initial encounter Qualified Code(s): S09.93XA - Unspecified injury of face, initial encounter (5) Fall Impression: The patient states that he falls, but usually does not get injured. Prior to this admission he admits to being a daily beer drinker, and admits to "3 or 4 hits of marijuana" daily, and continues to smoke cigarettes. He states that his fall was caused by his legs becoming too heavy from increased swelling, and as he was attempting to step up onto a curb. He lost his footing leading to a sudden accidental fall in which he reportedly became unconscious, hit his left forehead and bilateral hands on the pavement. The patient states that the next thing he remembers is being in the ambulance. Imaging in the ED was negative for head bleeding, or other abnormalities. He has no other apparent injuries. While inpatient, he continues to struggle with ambulation and stamina. Physical therapy evaluated and signed of as he is not thought to be at an increased risk for falls. The patient has been using a -wheeled walker for ambulating to the bathroom and in the halls. Plan: Treat CHF, continue to encourage ambulation. Consider further head imaging for neuro changes. Qualifiers: Encounter type: subsequent encounter Qualified Code(s): W19.XXXD - Unspecified fall, subsequent encounter (6) Alcoholism Impression: The patient admits to years of alcoholism. He reports that his current usage is about 24 ounces of beer daily. He did not appear to be in withdrawal upon exam. He states that he does not need any BEER while here. I will discontinue this as it seems to be irritating as the nursing staff asks him periodically. Plan: Monitor for withdrawal. (7) Nicotine dependence Impression: The patient states that he began smoking at age 15 and has been a life long smoker. He states that he has cut back to just one PPD, as he has always smoked 2 PPD. He refuses a nicotine patch. His MCV is noted to be elevated at greater than 104, an expected finding of [facility] tobacco dependence. Plan: Nicotine patch daily, PRN Qualifiers: Nicotine product type: cigarettes (8) Homelessness Impression: The patient states that he has been homeless for at least the past year as his landlord raised the rent so much, that his disability would no longer support this. He has community help at [facility] by shelters who allow a soft bed to sleep in each night, and he tries to stay busy during the day. He admits that finding enough to each day is a challenge. Certainly with all of his medical problems this is not a great situation. Plan: Consult social worker masters for support. (9) Cannabis dependence Impression: The patient admits to "3-4 hits per day of marijuana". Plan: Continue to encourage cessation. 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 He states that he is not prescribed any inhalers out patient. A chest x-ray showed hypoventilatory changes in the right lung base. He has been a life long tobacco user. He does not appear to be having an exacerbation, and does not require oxygen. The patient continues to be very congested upon exam with continued bilateral crackles. A follow up x-ray shows pneumonia. He continues on xopenex nebs, IV antibiotics, and an expectorant to treat pneumonia. Plan: Continue to monitor respiratory status and offer nebulizers if needed. Qualifiers: Emphysema type: unspecified Qualified Code(s): J43.9 - Emphysema, unspecified
[2017-10-11] MEDS: CITALOPRAM 10 MG TABLET PO SCH (09:00)
[2017-10-11] MEDS: WARFARIN 5 MG TABLET PO SCH (09:00)
[2017-10-11] MEDS: ASPIRIN EC 81 MG TABLET PO SCH (09:00)
[2017-10-11] MEDS: SPIRONOLACTONE 25 MG TABLET PO SCH (09:00)
[2017-10-11] MEDS: METOPROLOL SUCCINATE 25 MG TABLET PO SCH ×3 (09:00→21:11)
[2017-10-11] MEDS: PRENATAL VITAMIN TABLET PO SCH (09:01)
[2017-10-11] MEDS: POLYETHYLENE GLYCOL 3350 17 GM PACKET PO SCH (09:01)
[2017-10-11] MEDS: MAGNESIUM OXIDE 400 MG TABLET PO SCH ×2 (09:01→17:09)
[2017-10-11] MEDS: guaiFENesin 600 MG TABLET PO SCH ×2 (09:01→21:11)
[2017-10-11] MEDS: WARFARIN 1 MG TABLET PO SCH (09:01)
[2017-10-11] MEDS: cefTRIAXone 2 GM in SODIUM CHLORIDE 0.9% MINIBAG 100 ML IV SCH (11:21)
[2017-10-11] MEDS ORDERED: ONDANSETRON ODT 4 MG TABLET TL PRN (16:21)
[2017-10-11 16:38] LABS: BASOPHILS # (AUTO) 0.1 10^3/uL (0.0-0.1); BASOPHILS % (AUTO) 1.2 %; EOSINOPHILS # (AUTO) 0.1 10^3/uL (0.0-0.7); EOSINOPHILS % (AUTO) 1.2 %; HGB - HEMOGLOBIN 15.5 g/dL (14.0-18.0); LYMPHOCYTES # (AUTO) 1.3 10^3/uL (1.5-3.5); LYMPHOCYTES % (AUTO) 17.7 %; MEAN CORPUSCULAR HEMOGLOBIN 35.8 pg (27.0-31.0); MEAN CORPUSCULAR HGB CONC 34.5 g/dL (32.0-36.0); MEAN CORPUSCULAR VOLUME 103.9 fL (80.0-94.0); MEAN PLATELET VOLUME 9.6 fL (7.4-11.4); MONOCYTES # (AUTO) 0.6 10^3/uL (0.0-1.0); MONOCYTES % (AUTO) 8.5 %; NEUTROPHILS # (AUTO) 5.3 10^3/uL (1.5-6.6); NEUTROPHILS % (AUTO) 71.4 %; PLT - PLATELET COUNT 158 10^3/uL (130-450); RED BLOOD COUNT 4.31 10^6/uL (4.70-6.10); RED CELL DISTRIBUTION WIDTH 13.2 % (12.0-15.0); WHITE BLOOD COUNT 7.4 x10^3/uL (4.8-10.8)
[2017-10-11 16:48] LABS: INR 1.7 (0.8-1.2); PT - PROTHROMBIN TIME 18.5 secs (9.9-12.6)
[2017-10-11 16:51] LABS: ALBUMIN 3.6 g/dL (3.2-5.5); ALBUMIN/GLOBULIN RATIO 1.3 (1.0-2.2); BILIRUBIN,TOTAL 0.7 mg/dL (0.2-1.0); CALCIUM 8.7 mg/dL (8.5-10.3); CREATININE 0.9 mg/dL (0.6-1.2); TOTAL PROTEIN 6.4 g/dL (6.7-8.2)
[2017-10-11] MEDS: METOCLOPRAMIDE 10 MG TABLET PO SCH ×2 (17:09→21:11)
[2017-10-11] MEDS: FUROSEMIDE 40 MG/4 ML VIAL IVP SCH (19:35)
[2017-10-11] MEDS: SODIUM CHLORIDE FLUSH 0.9% 10 ML SYRINGE IVP PRN (19:35)
[2017-10-11] MEDS ORDERED: BACITRACIN OINT TOP PRN (21:00)
[2017-10-12] MEDS: SODIUM CHLORIDE FLUSH 0.9% 10 ML SYRINGE IVP SCH ×4 (00:33→16:30)
[2017-10-12] MEDS: METOCLOPRAMIDE 10 MG TABLET PO SCH ×4 (06:08→21:37)
[2017-10-12] MEDS: FUROSEMIDE 40 MG/4 ML VIAL IVP SCH ×2 (06:08→13:41)
[2017-10-12] MEDS: SODIUM CHLORIDE FLUSH 0.9% 10 ML SYRINGE IVP PRN ×2 (06:09→11:38)
[2017-10-12 06:29] LABS: BASOPHILS # (AUTO) 0.1 10^3/uL (0.0-0.1); BASOPHILS % (AUTO) 1.1 %; EOSINOPHILS # (AUTO) 0.1 10^3/uL (0.0-0.7); EOSINOPHILS % (AUTO) 1.1 %; HGB - HEMOGLOBIN 15.9 g/dL (14.0-18.0); LYMPHOCYTES # (AUTO) 1.3 10^3/uL (1.5-3.5); LYMPHOCYTES % (AUTO) 18.5 %; MEAN CORPUSCULAR HEMOGLOBIN 35.2 pg (27.0-31.0); MEAN CORPUSCULAR HGB CONC 33.8 g/dL (32.0-36.0); MEAN CORPUSCULAR VOLUME 104.3 fL (80.0-94.0); MEAN PLATELET VOLUME 9.6 fL (7.4-11.4); MONOCYTES # (AUTO) 0.8 10^3/uL (0.0-1.0); MONOCYTES % (AUTO) 11.3 %; NEUTROPHILS # (AUTO) 4.7 10^3/uL (1.5-6.6); PLT - PLATELET COUNT 135 10^3/uL (130-450); RED BLOOD COUNT 4.52 10^6/uL (4.70-6.10)
[2017-10-12 06:44] LABS: ALBUMIN 3.7 g/dL (3.2-5.5); ALBUMIN/GLOBULIN RATIO 1.3 (1.0-2.2); BILIRUBIN,TOTAL 0.8 mg/dL (0.2-1.0); CALCIUM 8.9 mg/dL (8.5-10.3); TOTAL PROTEIN 6.5 g/dL (6.7-8.2)
[2017-10-12 06:53] LABS: INR 1.6 (0.8-1.2); PT - PROTHROMBIN TIME 18.2 secs (9.9-12.6)
[2017-10-12] MEDS: PRENATAL VITAMIN TABLET PO SCH (08:42)
[2017-10-12] MEDS: METOPROLOL SUCCINATE 25 MG TABLET PO SCH ×2 (08:42→21:37)
[2017-10-12] MEDS: WARFARIN 5 MG TABLET PO SCH (08:43)
[2017-10-12] MEDS: WARFARIN 1 MG TABLET PO SCH (08:43)
[2017-10-12] MEDS: SPIRONOLACTONE 25 MG TABLET PO SCH (08:43)
[2017-10-12] MEDS: MAGNESIUM OXIDE 400 MG TABLET PO SCH ×2 (08:43→16:29)
[2017-10-12] MEDS: ASPIRIN EC 81 MG TABLET PO SCH (08:43)
[2017-10-12] MEDS: CITALOPRAM 10 MG TABLET PO SCH (08:44)
[2017-10-12] MEDS: guaiFENesin 600 MG TABLET PO SCH ×2 (08:44→21:37)
[2017-10-12] MEDS: POLYETHYLENE GLYCOL 3350 17 GM PACKET PO SCH (08:47)
[2017-10-12] MEDS: cefTRIAXone 2 GM in SODIUM CHLORIDE 0.9% MINIBAG 100 ML IV SCH (11:35)
[2017-10-12] MEDS ORDERED: LISINOPRIL 5 MG TABLET PO SCH (16:33)
--- NOTE | 2017-10-12 16:37 | PROVIDER PROGRESS NOTE ---
Subjective - Prog Note Date Prog Note Date: 10/12/17 Prog Note Time: 08:00 - Subjective Pt reports feeling: Improved Subjective: João states that he is sleeping well, eating well and feels generally improved. He has no complaints. He denies increased shortness of breath, nausea, vomiting, dizziness, or chest pain. Current Medications - Current Medications Current Medications: Active Medications Acetaminophen (Tylenol) 650 mg PO Q4HR PRN PRN Reason: Pain or Fever > 38C (100.4F) Last Admin: 10/06/17 04:00 Dose: 650 mg Aspirin (Ecotrin) 81 mg PO DAILY [facility] Last Admin: 10/12/17 08:43 Dose: 81 mg Bacitracin (Bacitracin) 1 packet TOP Q2H PRN PRN Reason: PER PROVIDER ORDERS Last Admin: 10/11/17 21:21 Dose: 1 packet Citalopram Hydrobromide (Celexa) 40 mg PO DAILY [facility] Last Admin: 10/12/17 08:44 Dose: 40 mg Clindamycin HCl (Cleocin) 300 mg PO Q6HR [facility] Furosemide (Lasix Inj 40 Mg Vial) 40 mg IVP BIDDIURETIC [facility] Last Admin: 10/12/17 13:41 Dose: 40 mg Guaifenesin (Mucinex) 600 mg PO BID [facility] Last Admin: 10/12/17 08:44 Dose: 600 mg Levalbuterol HCl (Xopenex) 1.25 mg INH Q4H PRN PRN Reason: Shortness of Air/Wheezing Lidocaine HCl (Xylocaine Uro-Jet 2%) 2.5 ml UR Q6H PRN PRN Reason: PAIN Lisinopril (Zestril) 2.5 mg PO DAILY [facility] Lisinopril (Zestril) 2.5 mg PO ONCE ONE Stop: 10/12/17 16:34 Metoclopramide HCl (Reglan) 10 mg PO ACHS [facility] Last Admin: 10/12/17 16:29 Dose: 10 mg Metoprolol Succinate (Toprol Xl) 25 mg PO BID [facility] Last Admin: 10/12/17 08:42 Dose: 25 mg Ondansetron HCl (Zofran Odt) 4 mg TL Q6HR PRN PRN Reason: Nausea / Vomiting Polyethylene Glycol (Miralax) 17 gm PO DAILY [facility] Last Admin: 10/12/17 08:47 Dose: Not Given Multivit/Folic Acid/Iron (Trinatal Rx 1) 1 tab PO DAILYWM [facility] Last Admin: 10/12/17 08:42 Dose: 1 tab Sodium Chloride (Normal Saline Flush 0.9%) 10 ml IVP PRN PRN PRN Reason: NEEDED PER PROVIDER ORDERS Last Admin: 10/12/17 11:38 Dose: 10 ml Sodium Chloride (Normal Saline Flush 0.9%) 10 ml IVP 0100,0900,1700 [facility] Last Admin: 10/12/17 16:30 Dose: 10 ml Spironolactone (Aldactone) 50 mg PO DAILY [facility] Last Admin: 10/12/17 08:43 Dose: 50 mg Warfarin Sodium (Coumadin) 5 mg PO DAILY [facility] Last Admin: 10/12/17 08:43 Dose: 5 mg Warfarin Sodium (Coumadin) 2 mg PO DAILY [facility] Last Admin: 10/12/17 08:43 Dose: 2 mg Warfarin [Coumadin] 5 mg PO DAILY 10/04/17 Objective - Vital Signs/Intake & Output Reviewed Vital Signs: Yes Vital Signs: Vital Signs x48h Temp Pulse Resp BP Pulse Ox 10/12/17 16:06 36.6 C 91 18 104/79 98 10/12/17 12:56 36.9 C 68 18 101/81 H 95 Intake & Output: Intake & Output 10/09/17 10/10/17 10/11/17 10/12/17 23:59 23:59 23:59 23:59 Intake Total 1610 1790 1760 1340 Output Total 1925 1100 1570 1650 Balance -315 690 190 -310 - Objective General Appearance: positive: No acute distress, Alert Eyes Bilateral: positive: Normal inspection Eyes: OU Conjunctivae pale, OU Scleral icterus, OU Other (bilateral scleral redness) ENT: positive: ENT inspection nml, Pharyngeal erythema, Dry mucous membranes Neck: positive: Nml inspection, Thyroid nml, No JVD, Stiff neck Respiratory: positive: Chest non-tender, No respiratory distress, Other ( shallow breath sounds coarse crackles at times.) Cardiovascular: positive: No gallop, Irregularly irregular, Systolic murmur, Decreased pulse(s) Peripheral Pulses: 1+ Radial (R), 1+ Radial (L) Abdomen: positive: Non-tender, No organomegaly, Nml bowel sounds, No distention Back: positive: Nml inspection Skin: positive: No rash, Warm, Dry, Cyanosis, Pallor Extremities: positive: Non-tender, Pedal edema (moderate BLE edema), Joint swelling Neurologic/Psychiatric: positive: Oriented x3, CN's nml (2-12), Motor nml, Weakness, Sensory loss, Slurred/abnml speech, Depressed mood/affect Reflexes: Bicep (R): 3+, Bicep (L): 3+ - Lab Results Fish Bones: 10/12/17 05:40 10/12/17 05:40 Other Labs: Lab Results x24hrs 10/12/17 10/12/17 10/12/17 Range/Units 05:40 05:40 05:40 WBC (4.8-10.8) x10^3/uL RBC (4.70-6.10) 10^6/uL Hgb (14.0-18.0) g/dL Hct (42.0-52.0) % MCV (80.0-94.0) fL MCH (27.0-31.0) pg MCHC (32.0-36.0) g/dL RDW (12.0-15.0) % Plt Count (130-450) 10^3/uL MPV (7.4-11.4) fL Neut # (Auto) (1.5-6.6) 10^3/uL Lymph # (Auto) (1.5-3.5) 10^3/uL [place] # (Auto) (0.0-1.0) 10^3/uL Eos # (Auto) (0.0-0.7) 10^3/uL Baso # (Auto) (0.0-0.1) 10^3/uL Absolute Nucleated RBC x10^3/uL Nucleated RBC % /100WBC PT 18.2 H (9.9-12.6) secs INR 1.6 H (0.8-1.2) Sodium 134 L (135-145) mmol/L Potassium 4.4 (3.5-5.0) mmol/L Chloride 95 L (101-111) mmol/L Carbon Dioxide 30 (21-32) mmol/L Anion Gap 9.0 (6-13) BUN 21 H (6-20) mg/dL Creatinine 1.0 (0.6-1.2) mg/dL Estimated GFR (MDRD) 77 L (>89) Glucose 92 (70-100) mg/dL Calcium 8.9 (8.5-10.3) mg/dL Magnesium (1.7-2.8) mg/dL Total Bilirubin 0.8 (0.2-1.0) mg/dL AST 28 (10-42) IU/L ALT 32 (10-60) IU/L Alkaline Phosphatase 97 (42-121) IU/L B-Natriuretic Peptide 9001.00 H (5-100) pg/mL Total Protein 6.5 L (6.7-8.2) g/dL Albumin 3.7 (3.2-5.5) g/dL Globulin 2.8 (2.1-4.2) g/dL Albumin/Globulin Ratio 1.3 (1.0-2.2) 10/12/17 10/11/17 10/11/17 Range/Units 05:40 16:32 16:32 WBC 7.0 (4.8-10.8) x10^3/uL RBC 4.52 L (4.70-6.10) 10^6/uL Hgb 15.9 (14.0-18.0) g/dL Hct 47.1 (42.0-52.0) % MCV 104.3 H (80.0-94.0) fL MCH 35.2 H (27.0-31.0) pg MCHC 33.8 (32.0-36.0) g/dL RDW 13.0 (12.0-15.0) % Plt Count 135 (130-450) 10^3/uL MPV 9.6 (7.4-11.4) fL Neut # (Auto) 4.7 (1.5-6.6) 10^3/uL Lymph # (Auto) 1.3 L (1.5-3.5) 10^3/uL [place] # (Auto) 0.8 (0.0-1.0) 10^3/uL Eos # (Auto) 0.1 (0.0-0.7) 10^3/uL Baso # (Auto) 0.1 (0.0-0.1) 10^3/uL Absolute Nucleated RBC 0.00 x10^3/uL Nucleated RBC % 0.0 /100WBC PT 18.5 H (9.9-12.6) secs INR 1.7 H (0.8-1.2) Sodium (135-145) mmol/L Potassium (3.5-5.0) mmol/L Chloride (101-111) mmol/L Carbon Dioxide (21-32) mmol/L Anion Gap (6-13) BUN (6-20) mg/dL Creatinine (0.6-1.2) mg/dL Estimated GFR (MDRD) (>89) Glucose (70-100) mg/dL Calcium (8.5-10.3) mg/dL Magnesium 2.3 (1.7-2.8) mg/dL Total Bilirubin (0.2-1.0) mg/dL AST (10-42) IU/L ALT (10-60) IU/L Alkaline Phosphatase (42-121) IU/L B-Natriuretic Peptide (5-100) pg/mL Total Protein (6.7-8.2) g/dL Albumin (3.2-5.5) g/dL Globulin (2.1-4.2) g/dL Albumin/Globulin Ratio (1.0-2.2) 10/11/17 10/11/17 10/11/17 Range/Units 16:32 16:32 16:32 WBC 7.4 (4.8-10.8) x10^3/uL RBC 4.31 L (4.70-6.10) 10^6/uL Hgb 15.5 (14.0-18.0) g/dL Hct 44.8 (42.0-52.0) % MCV 103.9 H (80.0-94.0) fL MCH 35.8 H (27.0-31.0) pg MCHC 34.5 (32.0-36.0) g/dL RDW 13.2 (12.0-15.0) % Plt Count 158 (130-450) 10^3/uL MPV 9.6 (7.4-11.4) fL Neut # (Auto) 5.3 (1.5-6.6) 10^3/uL Lymph # (Auto) 1.3 L (1.5-3.5) 10^3/uL [place] # (Auto) 0.6 (0.0-1.0) 10^3/uL Eos # (Auto) 0.1 (0.0-0.7) 10^3/uL Baso # (Auto) 0.1 (0.0-0.1) 10^3/uL Absolute Nucleated RBC 0.01 x10^3/uL Nucleated RBC % 0.1 /100WBC PT (9.9-12.6) secs INR (0.8-1.2) Sodium 132 L (135-145) mmol/L Potassium 3.9 (3.5-5.0) mmol/L Chloride 97 L (101-111) mmol/L Carbon Dioxide 23 (21-32) mmol/L Anion Gap 12.0 (6-13) BUN 22 H (6-20) mg/dL Creatinine 0.9 (0.6-1.2) mg/dL Estimated GFR (MDRD) 87 L (>89) Glucose 121 H (70-100) mg/dL Calcium 8.7 (8.5-10.3) mg/dL Magnesium (1.7-2.8) mg/dL Total Bilirubin 0.7 (0.2-1.0) mg/dL AST 32 (10-42) IU/L ALT 31 (10-60) IU/L Alkaline Phosphatase 87 (42-121) IU/L B-Natriuretic Peptide 8067.00 H (5-100) pg/mL Total Protein 6.4 L (6.7-8.2) g/dL Albumin 3.6 (3.2-5.5) g/dL Globulin 2.8 (2.1-4.2) g/dL Albumin/Globulin Ratio 1.3 (1.0-2.2) ABX Reporting Has patient been on IV antibiotics over the past 48 hours?: No Assessment/Plan - Problem List (1) CHF exacerbation Impression: The patient has good reason to be in this condition based on preliminary echo results showing all 4 chamber with severe dysfunction/enlargement and an EF of < 20%. The patient is overall improving both clinically, and based on I/O weights , but despite this has a climbing BNP at 9001 today. He is down about 4KG since admission. Since starting the Rocephin, he has had less noticeable improvement and this may be due to the salt content of the IV antibiotic solution. The lasix is now back to an IV form at 40 mg BID. He continues to have BLE pitting edema that is improving slightly each day. The swelling is thought to cause difficulty. He is using AUDELIA wraps rather than FAIZAN hose for comfort. I have resumed his lisinopril at 2.5 mg PO to help with his overall poor heart function. Plan: Continue IV lasix, monitor daily labs including BNP. Qualifiers: Heart failure type: combined systolic and diastolic Qualified Code(s): I50.43 - Acute on chronic combined systolic (congestive) and diastolic ( congestive) heart failure (2) Left lower lobe pneumonia Impression: A repeat chest x-ray was obtained due to complaints of chills, and ongoing coarse crackles to bilateral lung cuello. Imaging confirms a new left low lobe infiltrate that resembles pneumonia. WBC count is normal today, and there are no reported fevers. He continues on xopenex nebs, scheduled, PRN, an expectorant and incentive spirometry, with an added flutter valve. He will start clindamycin today as he had enough days with IV coverage. He has not been able to produce a sputum sample. Plan: Continue oral antibiotic, continue respiratory care, await a sputum sample , and monitor vital signs. (3) Peripheral edema Impression: The patient has been struggling with increased BLE edema and this has caused him more difficulty with ambulating. He admits to this being a long standing problem for the past several years. He states that since he is homeless, he just tries to find a place to sit down all day since having such profound leg weakness. He has very little sensation using sharp stimuli. The patient states that ever since December, this has become much worse and understands it is directly related to his worsening heart function. Plan: SCDs, elevated feet and use AUDELIA wrap for improved circulation. (4) Facial trauma Impression: The patient's facial trauma was superficial and the lesion above his left eye. There is still some discoloration around the left eye is appearing and this is likely related to his original injury (fall). He has bilateral redness noted in his eyes, that is chronic. Plan: Continue to monitor. Qualifiers: Encounter type: initial encounter Qualified Code(s): S09.93XA - Unspecified injury of face, initial encounter (5) Fall Impression: The patient states that he falls, but usually does not get injured. Prior to this admission he admits to being a daily beer drinker, and admits to "3 or 4 hits of marijuana" daily, and continues to smoke cigarettes. He states that his fall was caused by his legs becoming too heavy from increased swelling, and as he was attempting to step up onto a curb. He lost his footing leading to a sudden accidental fall in which he reportedly became unconscious, hit his left forehead and bilateral hands on the pavement. The patient states that the next thing he remembers is being in the ambulance. Imaging in the ED was negative for head bleeding, or other abnormalities. He has no other apparent injuries. While inpatient, he continues to struggle with ambulation and stamina. Physical therapy evaluated and signed of as he is not thought to be at an increased risk for falls. The patient has been using a -wheeled walker for ambulating to the bathroom and in the halls. Plan: Treat CHF, continue to encourage ambulation. Consider further head imaging for neuro changes. Qualifiers: Encounter type: subsequent encounter Qualified Code(s): W19.XXXD - Unspecified fall, subsequent encounter (6) Alcoholism Impression: The patient admits to years of alcoholism. He reports that his current usage is about 24 ounces of beer daily. He did not appear to be in withdrawal upon exam. He states that he does not need any BEER while here. I will discontinue this as it seems to be irritating as the nursing staff asks him periodically. Plan: Monitor for withdrawal. (7) Nicotine dependence Impression: The patient states that he began smoking at age 15 and has been a life long smoker. He states that he has cut back to just one PPD, as he has always smoked 2 PPD. He refuses a nicotine patch. 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 Plan: Nicotine patch daily, PRN Qualifiers: Nicotine product type: cigarettes (8) Homelessness Impression: The patient states that he has been homeless for at least the past year as his landlord raised the rent so much, that his disability would no longer support this. He has community help at [facility] by shelters who allow a soft bed to sleep in each night, and he tries to stay busy during the day. He admits that finding enough to each day is a challenge. Certainly with all of his medical problems this is not a great situation. Plan: Consult manager social for support. (9) Cannabis dependence Impression: The patient admits to "3-4 hits per day of marijuana". Plan: Continue to encourage cessation. 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 He states that he is not prescribed any inhalers out patient. A chest x-ray showed hypoventilatory changes in the right lung base. He has been a life long tobacco user. He does not appear to be having an exacerbation, and does not require oxygen. The patient continues to be very congested upon exam with continued bilateral crackles. A follow up x-ray shows pneumonia. He continues on xopenex nebs, oral antibiotics, and an expectorant to treat pneumonia. Plan: Continue to monitor respiratory status and offer nebulizers if needed. Qualifiers: Emphysema type: unspecified Qualified Code(s): J43.9 - Emphysema, unspecified
[2017-10-12] MEDS: CLINDAMYCIN 150 MG CAPSULE PO SCH ×2 (18:19→18:20)
[2017-10-13] MEDS: CLINDAMYCIN 150 MG CAPSULE PO SCH ×2 (00:15→06:55)
[2017-10-13] MEDS: SODIUM CHLORIDE FLUSH 0.9% 10 ML SYRINGE IVP SCH ×3 (00:16→16:14)
[2017-10-13 06:20] LABS: INR 1.8 (0.8-1.2); PT - PROTHROMBIN TIME 19.8 secs (9.9-12.6)
[2017-10-13 06:24] LABS: BASOPHILS # (AUTO) 0.2 10^3/uL (0.0-0.1); BASOPHILS % (AUTO) 2.5 %; EOSINOPHILS # (AUTO) 0.1 10^3/uL (0.0-0.7); EOSINOPHILS % (AUTO) 1.5 %; HGB - HEMOGLOBIN 15.3 g/dL (14.0-18.0); MEAN CORPUSCULAR HEMOGLOBIN 35.3 pg (27.0-31.0); MEAN CORPUSCULAR VOLUME 103.8 fL (80.0-94.0); MEAN PLATELET VOLUME 9.3 fL (7.4-11.4); MONOCYTES # (AUTO) 0.7 10^3/uL (0.0-1.0); PLT - PLATELET COUNT 126 10^3/uL (130-450); RED BLOOD COUNT 4.33 10^6/uL (4.70-6.10); RED CELL DISTRIBUTION WIDTH 12.7 % (12.0-15.0)
[2017-10-13 06:28] LABS: ALBUMIN 3.3 g/dL (3.2-5.5); ALBUMIN/GLOBULIN RATIO 1.2 (1.0-2.2); BILIRUBIN,TOTAL 0.8 mg/dL (0.2-1.0); CALCIUM 8.6 mg/dL (8.5-10.3)
[2017-10-13] MEDS: SODIUM CHLORIDE FLUSH 0.9% 10 ML SYRINGE IVP PRN ×2 (06:52→14:43)
[2017-10-13] MEDS: FUROSEMIDE 40 MG/4 ML VIAL IVP SCH ×2 (06:52→14:25)
[2017-10-13] MEDS: METOCLOPRAMIDE 10 MG TABLET PO SCH ×4 (06:52→20:33)
[2017-10-13] MEDS: CITALOPRAM 10 MG TABLET PO SCH (08:42)
[2017-10-13] MEDS: SACCHAROMYCES BOULARDII 250 MG CAPSULE PO SCH ×2 (08:43→16:14)
[2017-10-13] MEDS: POLYETHYLENE GLYCOL 3350 17 GM PACKET PO SCH (08:44)
[2017-10-13] MEDS: WARFARIN 1 MG TABLET PO SCH (08:44)
[2017-10-13] MEDS: WARFARIN 5 MG TABLET PO SCH (08:44)
[2017-10-13] MEDS: SPIRONOLACTONE 25 MG TABLET PO SCH (08:45)
[2017-10-13] MEDS: guaiFENesin 600 MG TABLET PO SCH ×2 (08:45→20:33)
[2017-10-13] MEDS: ASPIRIN EC 81 MG TABLET PO SCH (08:45)
[2017-10-13] MEDS: PRENATAL VITAMIN TABLET PO SCH (08:45)
[2017-10-13] MEDS: METOPROLOL SUCCINATE 25 MG TABLET PO SCH ×2 (08:46→20:33)
[2017-10-13] MEDS ORDERED: LISINOPRIL 5 MG TABLET PO SCH (09:00)
--- NOTE | 2017-10-13 12:40 | PROVIDER PROGRESS NOTE ---
Subjective - Prog Note Date Prog Note Date: 10/13/17 - Subjective Pt reports feeling: Improved Subjective: pt report he feel ok, his leg edema is resolved. pt denies dizziness, palpitation, chest pain, shortness of breath, fever, chill, cough. pt's BP is lower at the morning. Nurse report he had once of four pulse of VT. pt is asymptomatic. pt is on Coumadin, beta-cayden. discuss d/c plan with pt. pt agree to be d/c tomorrow if continue improved Current Medications - Current Medications Current Medications: Active Medications Acetaminophen (Tylenol) 650 mg PO Q4HR PRN PRN Reason: Pain or Fever > 38C (100.4F) Last Admin: 10/06/17 04:00 Dose: 650 mg Aspirin (Ecotrin) 81 mg PO DAILY [facility] Last Admin: 10/13/17 08:45 Dose: 81 mg Bacitracin (Bacitracin) 1 packet TOP Q2H PRN PRN Reason: PER PROVIDER ORDERS Last Admin: 10/11/17 21:21 Dose: 1 packet Cephalexin (Keflex) 250 mg PO Q6HR [facility] Citalopram Hydrobromide (Celexa) 40 mg PO DAILY [facility] Last Admin: 10/13/17 08:42 Dose: 40 mg Furosemide (Lasix Inj 40 Mg Vial) 40 mg IVP BIDDIURETIC [facility] Last Admin: 10/13/17 06:52 Dose: 40 mg Guaifenesin (Mucinex) 600 mg PO BID [facility] Last Admin: 10/13/17 08:45 Dose: 600 mg Levalbuterol HCl (Xopenex) 1.25 mg INH Q4H PRN PRN Reason: Shortness of Air/Wheezing Lidocaine HCl (Xylocaine Uro-Jet 2%) 2.5 ml UR Q6H PRN PRN Reason: PAIN Lisinopril (Zestril) 2.5 mg PO DAILY [facility] Last Admin: 10/13/17 09:27 Dose: Not Given Metoclopramide HCl (Reglan) 10 mg PO ACHS [facility] Last Admin: 10/13/17 11:11 Dose: 10 mg Metoprolol Succinate (Toprol Xl) 25 mg PO BID [facility] Last Admin: 10/13/17 08:46 Dose: 25 mg Ondansetron HCl (Zofran Odt) 4 mg TL Q6HR PRN PRN Reason: Nausea / Vomiting Polyethylene Glycol (Miralax) 17 gm PO DAILY [facility] Last Admin: 10/13/17 08:44 Dose: Not Given Multivit/Folic Acid/Iron (Trinatal Rx 1) 1 tab PO DAILYWM [facility] Last Admin: 10/13/17 08:45 Dose: 1 tab Saccharomyces Boulardii (Florastor) 250 mg PO BIDWM [facility] Last Admin: 10/13/17 08:43 Dose: 250 mg Sodium Chloride (Normal Saline Flush 0.9%) 10 ml IVP PRN PRN PRN Reason: NEEDED PER PROVIDER ORDERS Last Admin: 10/13/17 06:52 Dose: 20 ml Sodium Chloride (Normal Saline Flush 0.9%) 10 ml IVP 0100,0900,1700 [facility] Last Admin: 10/13/17 08:53 Dose: 10 ml Spironolactone (Aldactone) 50 mg PO DAILY [facility] Last Admin: 10/13/17 08:45 Dose: 50 mg Warfarin Sodium (Coumadin) 5 mg PO DAILY [facility] Last Admin: 10/13/17 08:44 Dose: 5 mg Warfarin Sodium (Coumadin) 2 mg PO DAILY [facility] Last Admin: 10/13/17 08:44 Dose: 2 mg Warfarin [Coumadin] 5 mg PO DAILY 10/04/17 Objective - Vital Signs/Intake & Output Reviewed Vital Signs: Yes Vital Signs: Vital Signs x48h Temp Pulse Pulse Resp BP Pulse Ox 10/13/17 08:59 89 100/83 H 10/13/17 07:46 36.6 C 86 18 99/74 100 10/13/17 05:00 36.7 C 71 18 98/75 97 Intake & Output: Intake & Output 10/10/17 10/11/17 10/12/17 10/13/17 23:59 23:59 23:59 23:59 Intake Total 1790 1760 1880 390 Output Total 1100 1570 1850 550 Balance 690 190 30 -160 - Objective General Appearance: positive: No acute distress, Alert. negative: Lethargic Eyes Bilateral: positive: Normal inspection, PERRL, No lid inflammation, Conjunctivae nml ENT: positive: ENT inspection nml, Pharynx nml, No signs of dehydration. negative: Purulent nasal drainage, Pharyngeal erythema, Oral lesions Neck: positive: Nml inspection, Thyroid nml, No JVD, Trachea midline. negative : Thyromegaly, Lymphadenopathy (R), Lymphadenopathy (L), Stiff neck, Swelling/ bruising, Tracheal deviation Respiratory: positive: Chest non-tender, No respiratory distress. negative: Wheezes, Rales, Rhonchi Cardiovascular: positive: Regular rate & rhythm, No murmur, No gallop. negative : Irregularly irregular, Extrasystoles, Tachycardia, Bradycardia, JVD present, Systolic murmur, Diastolic murmur Peripheral Pulses: 2+ Radial (R), 2+ Radial (L), 2+ Dorsalis pedis (R), 2+ Dorsalis pedis (L) Abdomen: positive: Non-tender, No organomegaly, Nml bowel sounds, No distention. negative: Tenderness, Guarding, Rebound Back: positive: Nml inspection. negative: CVA tenderness (R), CVA tenderness (L ) Skin: positive: Color nml, No rash, Warm, Dry. negative: Cyanosis, Diaphoresis , Pallor Extremities: positive: Non-tender, Full ROM, Nml appearance. negative: Calf tenderness, Joint swelling, Tahira's sign/cords Neurologic/Psychiatric: positive: Oriented x3, Motor nml, Sensation nml, Mood/ affect nml. negative: Weakness, Sensory loss, Facial droop, Slurred/abnml speech, Depressed mood/affect - Lab Results Fish Bones: 10/13/17 05:45 10/13/17 05:45 Other Labs: Lab Results x24hrs 10/13/17 10/13/17 10/13/17 Range/Units 05:45 05:45 05:45 WBC 7.0 (4.8-10.8) x10^3/uL RBC 4.33 L (4.70-6.10) 10^6/uL Hgb 15.3 (14.0-18.0) g/dL Hct 45.0 (42.0-52.0) % MCV 103.8 H (80.0-94.0) fL MCH 35.3 H (27.0-31.0) pg MCHC 34.0 (32.0-36.0) g/dL RDW 12.7 (12.0-15.0) % Plt Count 126 L (130-450) 10^3/uL MPV 9.3 (7.4-11.4) fL Neut # (Auto) 5.0 (1.5-6.6) 10^3/uL Lymph # (Auto) 1.0 L (1.5-3.5) 10^3/uL Dunn # (Auto) 0.7 (0.0-1.0) 10^3/uL Eos # (Auto) 0.1 (0.0-0.7) 10^3/uL Baso # (Auto) 0.2 H (0.0-0.1) 10^3/uL Absolute Nucleated RBC 0.00 x10^3/uL Nucleated RBC % 0.1 /100WBC PT 19.8 H (9.9-12.6) secs INR 1.8 H (0.8-1.2) Sodium (135-145) mmol/L Potassium (3.5-5.0) mmol/L Chloride (101-111) mmol/L Carbon Dioxide (21-32) mmol/L Anion Gap (6-13) BUN (6-20) mg/dL Creatinine (0.6-1.2) mg/dL Estimated GFR (MDRD) (>89) Glucose (70-100) mg/dL Calcium (8.5-10.3) mg/dL Total Bilirubin (0.2-1.0) mg/dL AST (10-42) IU/L ALT (10-60) IU/L Alkaline Phosphatase (42-121) IU/L B-Natriuretic Peptide 6607.00 H (5-100) pg/mL Total Protein (6.7-8.2) g/dL Albumin (3.2-5.5) g/dL Globulin (2.1-4.2) g/dL Albumin/Globulin Ratio (1.0-2.2) 10/13/17 Range/Units 05:45 WBC (4.8-10.8) x10^3/uL RBC (4.70-6.10) 10^6/uL Hgb (14.0-18.0) g/dL Hct (42.0-52.0) % MCV (80.0-94.0) fL MCH (27.0-31.0) pg MCHC (32.0-36.0) g/dL RDW (12.0-15.0) % Plt Count (130-450) 10^3/uL MPV (7.4-11.4) fL Neut # (Auto) (1.5-6.6) 10^3/uL Lymph # (Auto) (1.5-3.5) 10^3/uL Dunn # (Auto) (0.0-1.0) 10^3/uL Eos # (Auto) (0.0-0.7) 10^3/uL Baso # (Auto) (0.0-0.1) 10^3/uL Absolute Nucleated RBC x10^3/uL Nucleated RBC % /100WBC PT (9.9-12.6) secs INR (0.8-1.2) Sodium 132 L (135-145) mmol/L Potassium 4.1 (3.5-5.0) mmol/L Chloride 95 L (101-111) mmol/L Carbon Dioxide 29 (21-32) mmol/L Anion Gap 8.0 (6-13) BUN 29 H (6-20) mg/dL Creatinine 1.0 (0.6-1.2) mg/dL Estimated GFR (MDRD) 77 L (>89) Glucose 95 (70-100) mg/dL Calcium 8.6 (8.5-10.3) mg/dL Total Bilirubin 0.8 (0.2-1.0) mg/dL AST 24 (10-42) IU/L ALT 27 (10-60) IU/L Alkaline Phosphatase 87 (42-121) IU/L B-Natriuretic Peptide (5-100) pg/mL Total Protein 6.0 L (6.7-8.2) g/dL Albumin 3.3 (3.2-5.5) g/dL Globulin 2.7 (2.1-4.2) g/dL Albumin/Globulin Ratio 1.2 (1.0-2.2) ABX Reporting Has patient been on IV antibiotics over the past 48 hours?: Yes Assessment/Plan - Problem List (1) CHF exacerbation Impression: Impression: 10/13 fluid restriction daily weight cardiac diet with reduced salt continue Lasix monitor Lab continue tele, monitor order once troponin, since pt had once four pulse of vt, pt is asymptomatic, no chest pain, no cardiac distress. pt has been on Coumadin, and beta-cayden. The patient has good reason to be in this condition based on preliminary echo results showing all 4 chamber with severe dysfunction/enlargement and an EF of < 20%. The patient is overall improving both clinically, and based on I/O weights , but despite this has a climbing BNP at 9001 today. He is down about 4KG since admission. Since starting the Rocephin, he has had less noticeable improvement and this may be due to the salt content of the IV antibiotic solution. The lasix is now back to an IV form at 40 mg BID. He continues to have BLE pitting edema that is improving slightly each day. The swelling is thought to cause difficulty. He is using AUDELIA wraps rather than FAIZAN hose for comfort. I have resumed his lisinopril at 2.5 mg PO to help with his overall poor heart function. Plan: Continue IV lasix, monitor daily labs including BNP. (2) Left lower lobe pneumonia Impression: 10/13 98% Sat on room air, no fever, chill. Normal WBC continue to finish antibiotics course, change to PO antibiotic Keflex A repeat chest x-ray was obtained due to complaints of chills, and ongoing coarse crackles to bilateral lung cuello. Imaging confirms a new left low lobe infiltrate that resembles pneumonia. WBC count is normal today, and there are no reported fevers. He continues on xopenex nebs, scheduled, PRN, an expectorant and incentive spirometry, with an added flutter valve. He will start clindamycin today as he had enough days with IV coverage. He has not been able to produce a sputum sample. Plan: Continue oral antibiotic, continue respiratory care, await a sputum sample , and monitor vital signs. (3) Peripheral edema Impression: resolved as pt's baseline The patient has been struggling with increased BLE edema and this has caused him more difficulty with ambulating. He admits to this being a long standing problem for the past several years. He states that since he is homeless, he just tries to find a place to sit down all day since having such profound leg weakness. He has very little sensation using sharp stimuli. The patient states that ever since December, this has become much worse and understands it is directly related to his worsening heart function. Plan: SCDs, elevated feet and use AUDELIA wrap for improved circulation. (4) Facial trauma Impression: The patient's facial trauma was superficial and the lesion above his left eye. There is still some discoloration around the left eye is appearing and this is likely related to his original injury (fall). He has bilateral redness noted in his eyes, that is chronic. Plan: Continue to monitor. (5) Fall Impression: The patient states that he falls, but usually does not get injured. Prior to this admission he admits to being a daily beer drinker, and admits to "3 or 4 hits of marijuana" daily, and continues to smoke cigarettes. He states that his fall was caused by his legs becoming too heavy from increased swelling, and as he was attempting to step up onto a curb. He lost his footing leading to a sudden accidental fall in which he reportedly became unconscious, hit his left forehead and bilateral hands on the pavement. The patient states that the next thing he remembers is being in the ambulance. Imaging in the ED was negative for head bleeding, or other abnormalities. He has no other apparent injuries. While inpatient, he continues to struggle with ambulation and stamina. Physical therapy evaluated and signed of as he is not thought to be at an increased risk for falls. The patient has been using a -wheeled walker for ambulating to the bathroom and in the halls. Plan: Treat CHF, continue to encourage ambulation. Consider further head imaging for neuro changes. (6) Alcoholism Impression: 10/13 pt state he will quit alcohol The patient admits to years of alcoholism. He reports that his current usage is about 24 ounces of beer daily. He did not appear to be in withdrawal upon exam. He states that he does not need any BEER while here. I will discontinue this as it seems to be irritating as the nursing staff asks him periodically. Plan: Monitor for withdrawal. (7) Nicotine dependence Impression: 10/13 pt state he will quit cigarette smoking. The patient states that he began smoking at age 15 and has been a life long smoker. He states that he has cut back to just one PPD, as he has always smoked 2 PPD. He refuses a nicotine patch. His MCV is noted to be elevated at greater than 104, an expected finding of shelter tobacco dependence. Plan: Nicotine patch daily, PRN (8) Homelessness Impression: The patient states that he has been homeless for at least the past year as his landlord raised the rent so much, that his disability would no longer support this. He has community help at near by shelters who allow a soft bed to sleep in each night, and he tries to stay busy during the day. He admits that finding enough to each day is a challenge. Certainly with all of his medical problems this is not a great situation. Plan: Consult elementary school social worker for support. (9) Cannabis dependence Impression: The patient admits to "3-4 hits per day of marijuana". Plan: Continue to encourage cessation. (10) COPD (chronic obstructive pulmonary disease) with emphysema Impression: 10/13 stable, 98% Sat on room air continue RT treatment The patient is found to have a barrel shaped chest upon exam. He states that he is not prescribed any inhalers out patient. A chest x-ray showed hypoventilatory changes in the right lung base. He has been a life long tobacco user. He does not appear to be having an exacerbation, and does not require oxygen. The patient continues to be very congested upon exam with continued bilateral crackles. A follow up x-ray shows pneumonia. He continues on xopenex nebs, oral antibiotics, and an expectorant to treat pneumonia. Plan: Continue to monitor respiratory status and offer nebulizers if needed. Qualifiers: Heart failure type: combined systolic and diastolic Qualified Code(s): I50.43 - Acute on chronic combined systolic (congestive) and diastolic ( congestive) heart failure
[2017-10-13] MEDS: cephALEXin 250 MG CAPSULE PO SCH (17:32)
[2017-10-14] MEDS: SODIUM CHLORIDE FLUSH 0.9% 10 ML SYRINGE IVP SCH ×2 (01:08→08:29)
[2017-10-14] MEDS: cephALEXin 250 MG CAPSULE PO SCH ×3 (01:11→11:06)
[2017-10-14] MEDS: METOCLOPRAMIDE 10 MG TABLET PO SCH ×2 (06:16→11:06)
[2017-10-14] MEDS: FUROSEMIDE 40 MG/4 ML VIAL IVP SCH (06:16)
[2017-10-14 06:25] LABS: ALBUMIN 3.5 g/dL (3.2-5.5); ALBUMIN/GLOBULIN RATIO 1.3 (1.0-2.2); BILIRUBIN,TOTAL 1.1 mg/dL (0.2-1.0); CALCIUM 9.2 mg/dL (8.5-10.3); CREATININE 0.9 mg/dL (0.6-1.2); INR 1.7 (0.8-1.2); PT - PROTHROMBIN TIME 18.9 secs (9.9-12.6); TOTAL PROTEIN 6.2 g/dL (6.7-8.2)
[2017-10-14] MEDS: WARFARIN 5 MG TABLET PO SCH (08:28)
[2017-10-14] MEDS: CITALOPRAM 10 MG TABLET PO SCH (08:28)
[2017-10-14] MEDS: METOPROLOL SUCCINATE 25 MG TABLET PO SCH (08:28)
[2017-10-14] MEDS: PRENATAL VITAMIN TABLET PO SCH (08:28)
[2017-10-14] MEDS: guaiFENesin 600 MG TABLET PO SCH (08:28)
[2017-10-14] MEDS: WARFARIN 1 MG TABLET PO SCH (08:28)
[2017-10-14] MEDS: SPIRONOLACTONE 25 MG TABLET PO SCH (08:28)
[2017-10-14] MEDS: SACCHAROMYCES BOULARDII 250 MG CAPSULE PO SCH (08:28)
[2017-10-14] MEDS: ASPIRIN EC 81 MG TABLET PO SCH (08:28)
[2017-10-14] MEDS: POLYETHYLENE GLYCOL 3350 17 GM PACKET PO SCH (08:29)
--- NOTE | 2017-10-14 11:19 | Discharge Plan ---
Discharge Plan Disposition: Home, Self Care Condition: Poor Prescriptions: cephALEXin [Keflex] 500 mg PO BID #16 capsule Vitamin [Trinatal Rx 1] 1 tab PO DAILYWM #15 tablet Saccharomyces Boulardii [Florastor] 250 mg PO BID #8 capsule Diet: Cardiac Activity Restrictions: Activity as Tolerated Shower Restrictions: No (fall precaution) Instruction Topics: Heart Failure, Pneumonia, Cephalexin tablets or capsules Additional Instructions or Follow Up instructions: You may follow up your PCP in 3-4 days, follow up your property claim rep in one week. Should your symptoms return or worsen, you may present ER or call 911 for help. No Smoking: If you smoke, Please STOP! Call for help. Follow-up with: Ranulfo Mccormick PA-C [Primary Care Provider] -
--- NOTE | 2017-10-14 11:25 | DISCHARGE SUMMARY ---
Discharge Summary Discharge Date: 10/14/17 Discharging Provider: CALDERÓN Primary Care Provider: debby Ruiz Condition at Discharge: Good Discharge Disposition: 01 Home, Self Care Discharge Facility Name: home - DIAGNOSES Admission Diagnoses: (1) CHF exacerbation (2) Peripheral edema (3) Facial trauma (4) Fall (5) Alcoholism (6) Nicotine dependence (7) Homelessness (8) Cannabis dependence (9) COPD (chronic obstructive pulmonary disease) with emphysema Discharge Diagnoses with Status of Each Condition: (1) CHF exacerbation 98% sats on room air, pt denies SOB when pt walk with his walker. educate pt for med-compliant, and continue home Lasix, bete-cayden, ACEs, Spironolactine. follow up ed transporter as out-pt in one week (2) Left lower lobe pneumonia 98% sats on room air, no cough, fever, chill. Normal WBC. continue to finish the antibiotics course (3) Peripheral edema resolved (4) Facial trauma resolved (5) Fall educate pt for prevention of fall (6) Alcoholism advise pt quit (7) Nicotine dependence advise pt quit, pt state he will quit (8) Homelessness social consult and support (9) Cannabis dependence pt state he will quit (10) COPD (chronic obstructive pulmonary disease) with emphysema stable, 98% sats on room air, no cough (11) Weakness great improvement, after PT/OT evaluation and treatment (12) medical non-compliant pt report he has issue for medical non-compliant. educate pt for medical compliant - HPI History of Present Illness: refer from Ms. Ash's HPI as the following: João Berry is a 57-year old unkept, male with an extensive past medical history including alcoholism, tobacco dependence, marijuana dependence, depression, homelessness, chronic atrial fibrillation, shortness of breath, COPD, chronic lower extremity edema, CHF, LA, and falls. He presented to the ED today after he stumbled off of a curb while walking on the street via EMS. He states that he has been having a very difficult time finding a place to side down during the day as his energy is very poor due to his legs becoming very heavy and full of fluid. He told the ED staff that he got up too quickly, lost his balance, and fell. He states that he did not become dizzy or diaphoretic prior to the fall and can remember hitting the pavement, but nothing after that until he was in the ambulance. Upon arrival to the ED he is found to have an abrasion to his left upper eye brow, and scattered lacerations to his bilateral hands. He denies recent illness, chest pain, nausea, vomiting, or an increased cough. He states that he has found it more difficult to catch his breath with ambulation or if he goes to lie flat for at least the past week. He also believes that his BLE edema has become worse. Lab results show an astonishing elevation in BNP at 6363, although he has been greater than 6400 in past hospital stays. He is found to have a high MCV at 104.6, normal WBC count, elevated PT at 13.9, sub therapeutic INR at 1.2, low sodium at 127, elevated BUN at 24, normal creatinine at 1.0, decreased GFR at 77, elevated bilirubin at 1.8, a troponin of 0.05. His EKG appears to be unchanged from previous, and is tachycardic with rates in the 130's. He is afebrile, appears hypoxic, but oxygen readings are greater than 92% on room air. Imaging showed no acute fractures or bleeding and a chest xray showed cardiomegaly. He will be admitted to inpatient for further diuresis, and medical management of his RVR. - ALLERGIES Allergies/Adverse Reactions: Allergies Allergy/AdvReac Type Severity Reaction Status Date / Time No Known Drug Allergies Allergy Verified 10/04/17 14:42 - MEDICATIONS Home Medications: Ambulatory Orders Medication Instructions Recorded Confirmed Albuterol Sulfate [Proair Hfa 2 puffs INH Q4H #1 hfa.aer.ad 04/28/17 10/05/17 Inhaler] Aspirin [Aspirin EC] 81 mg PO DAILY #30 tablet. 04/28/17 10/05/17 Citalopram [CeleXA] 40 mg ORAL DAILY #30 tablet 04/28/17 10/05/17 Furosemide [Lasix] 20 mg PO BIDDIURETIC #30 tablet 04/28/17 10/05/17 Lisinopril [Zestril] 2.5 mg PO DAILY #30 tablet 04/28/17 10/05/17 Metoprolol Succinate [Toprol Xl] 25 mg PO DAILY #30 tablet 04/28/17 10/05/17 Spironolactone [Aldactone] 50 mg PO DAILY #30 tablet 04/28/17 10/05/17 Warfarin [Coumadin] 5 mg PO DAILY 10/04/17 10/05/17 Vitamin [Trinatal Rx 1] 1 tab PO DAILYWM #15 tablet 10/14/17 Saccharomyces Boulardii [Florastor] 250 mg PO BID #8 capsule 10/14/17 cephALEXin [Keflex] 500 mg PO BID #16 capsule 10/14/17 - PHYSICAL EXAM AT DISCHARGE General Appearance: positive: No acute distress, Alert. negative: Lethargic Eyes Bilateral: positive: Normal inspection, PERRL, No lid inflammation, Conjunctivae nml ENT: positive: ENT inspection nml, Pharynx nml, No signs of dehydration. negative: Purulent nasal drainage, Pharyngeal erythema, Oral lesions Neck: positive: Nml inspection, Thyroid nml, No JVD, Trachea midline. negative : Thyromegaly, Lymphadenopathy (R), Lymphadenopathy (L), Stiff neck, Carotid bruit, Swelling/bruising, Tracheal deviation Respiratory: positive: Chest non-tender, No respiratory distress. negative: Wheezes, Rales, Rhonchi Cardiovascular: positive: Regular rate & rhythm, No murmur, No gallop. negative : Irregularly irregular, Extrasystoles, Tachycardia, Bradycardia, JVD present, Systolic murmur, Diastolic murmur Peripheral Pulses: positive: 2+ Abdomen: positive: Non-tender, No organomegaly, Nml bowel sounds, No distention. negative: Tenderness, Guarding, Rebound Back: positive: Nml inspection. negative: CVA tenderness (R), CVA tenderness (L ) Skin: positive: Color nml, No rash, Warm, Dry. negative: Cyanosis, Diaphoresis , Pallor Extremities: positive: Non-tender, Full ROM, Nml appearance. negative: Calf tenderness, Joint swelling, Tahira's sign/cords Neurologic/Psychiatric: positive: Oriented x3, Motor nml, Sensation nml, Mood/ affect nml. negative: Weakness, Sensory loss, Facial droop, Slurred/abnml speech, Depressed mood/affect - LABS Result Diagrams: 10/13/17 05:45 10/14/17 06:00 - FOLLOW UP Follow Up: You may follow up your PCP in 3-4 days, follow up your ed transporter in one week. Should your symptoms return or worsen, you may present ER or call 911 for help. - TIME SPENT Time Spent in Discharge (Minutes): 55
[2017-10-14 11:42] VITALS: BP 100/87
== END 2017-10-14 14:25 | disposition home or self-care (01) | DRG 291 ==
LOC: ED 14:18 → MS2 16:50
PROVIDERS: ADMIT Nurse Practitioner; ATTEND Nurse Practitioner
DX: I11.0 Hypertensive heart disease with heart failure (principal); J18.1 Lobar pneumonia, unspecified organism; E87.1 Hypo-osmolality and hyponatremia; I50.43 Acute on chronic combined systolic (congestive) and diastolic (congestive) heart failure; F10.229 Alcohol dependence with intoxication, unspecified; F12.20 Cannabis dependence, uncomplicated; F17.210 Nicotine dependence, cigarettes, uncomplicated; J43.9 Emphysema, unspecified; F32.9 Major depressive disorder, single episode, unspecified; Z59.0 Homelessness; I48.2 Chronic atrial fibrillation; S00.212A Abrasion of left eyelid and periocular area, initial encounter; S61.412A Laceration without foreign body of left hand, initial encounter; S61.411A Laceration without foreign body of right hand, initial encounter; W01.0XXA Fall on same level from slipping, tripping and stumbling without subsequent striking against object, initial encounter; E78.00 Pure hypercholesterolemia, unspecified; F03.90 Unspecified dementia, unspecified severity, without behavioral disturbance, psychotic disturbance, mood disturbance, and anxiety; F41.9 Anxiety disorder, unspecified; I73.9 Peripheral vascular disease, unspecified; G62.9 Polyneuropathy, unspecified; N40.1 Benign prostatic hyperplasia with lower urinary tract symptoms; R35.0 Frequency of micturition; R35.1 Nocturia; J32.9 Chronic sinusitis, unspecified; G89.29 Other chronic pain; M54.9 Dorsalgia, unspecified; H91.90 Unspecified hearing loss, unspecified ear; H54.7 Unspecified visual loss; Y92.410 Unspecified street and highway as the place of occurrence of the external cause; Z79.51 Long term (current) use of inhaled steroids; Z79.82 Long term (current) use of aspirin; Z79.01 Long term (current) use of anticoagulants; Z91.19 Patient's noncompliance with other medical treatment and regimen; I25.2 Old myocardial infarction
CPT/HCPCS: 36415; 70450; 71045; 72125; 80053; 83690; 83735; 83880; 84484; 85025; 85610; 90471; 93005; 93306; 96361; 96374; 99284; 99285

== ENCOUNTER 2017-10-26 10:50 | Outpatient (CLI) | payer MEDICAID | END 2017-10-26 10:51 | disposition home or self-care (01) | LOC: LAB.N 10:50 | PROVIDERS: ATTEND Physician Assistant Medical | DX: Z79.01 Long term (current) use of anticoagulants (principal) | CPT/HCPCS: 85610 ==

== ENCOUNTER 2017-10-30 10:06 | Outpatient (CLI) | payer MEDICAID | END 2017-10-30 10:07 | disposition home or self-care (01) | LOC: LAB.N 10:06 | PROVIDERS: ATTEND Physician Assistant Medical | DX: Z79.01 Long term (current) use of anticoagulants (principal) | CPT/HCPCS: 85610 ==

== ENCOUNTER 2017-11-05 01:51 | Outpatient (CLI) | payer MEDICAID | END 2017-11-05 01:52 | disposition critical access hospital (66) | LOC: EMS 01:51 | PROVIDERS: ATTEND Surgery | DX: R06.02 Shortness of breath (principal) | CPT/HCPCS: A0425; A0429; A0999 ==

== ENCOUNTER 2017-11-05 02:10 | Inpatient (IN) | payer MEDICAID ==
[2017-11-05] MEDS ORDERED: FUROSEMIDE 100 MG/10 ML VIAL IVP STA (02:25)
[2017-11-05] MEDS ORDERED: FUROSEMIDE 40 MG/4 ML VIAL ONE (02:33)
--- NOTE | 2017-11-05 02:37 | ED Physician Documentation ---
PD HPI DYSPNEA - Stated complaint Stated Complaint: SOA - Chief complaint Chief Complaint: Resp - History obtained from History obtained from: Patient, EMS - History of Present Illness Timing - onset: Today Timing - onset during: Rest Timing - duration: Hours, Days Timing - details: Gradual onset, Still present, Waxing and waning Inciting event(s): Other Improved by: Sitting up Worsened by: Exertion, Laying flat Associated symptoms: Bilateral edema. No: Fever, Cough, Hemoptysis, Chest pain / discomfort, Palpitations, Diaphoresis Similar symptoms before: Diagnosis (CHF COPD) Recently seen: Admitted - Additional information Additional information: 57 y/o male with a history of CHF, COPD and alcoholism has had 2 admissions this year for CHF and comes to the ED this morning with the chief complaint of shortness of breath that is bad enough that he has not been able to sleep. He reports that he is taking his medications and has profound exertional dyspnea and orthopnea. He reports that his legs are always swollen. He has been anticoagulated with coumadin in anticipation of a cardioversion for aflutter. He was discharged from the hospital 2 weeks ago after a 10 day stay with improvement in all parameters. On this most recent admission his EF was 20% with markedly elevated right heart pressures. Review of Systems Constitutional: denies: Fever Eyes: denies: Decreased vision Ears: denies: Ear pain Nose: denies: Congestion Throat: denies: Sore throat Cardiac: reports: Pedal edema. denies: Chest pain / pressure, Palpitations Respiratory: reports: Dyspnea. denies: Hemoptysis GI: denies: Abdominal Pain, Nausea, Vomiting, Diarrhea : reports: Frequency. denies: Dysuria Skin: denies: Rash Musculoskeletal: reports: Extremity swelling. 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 04/28/17 10/05/17 Citalopram [CeleXA] 40 mg ORAL DAILY #30 tablet 04/28/17 10/05/17 Furosemide [Lasix] 20 mg PO BIDDIURETIC #30 tablet 04/28/17 10/05/17 Lisinopril [Zestril] 2.5 mg PO DAILY #30 tablet 04/28/17 10/05/17 Metoprolol Succinate [Toprol Xl] 25 mg PO DAILY #30 tablet 04/28/17 10/05/17 Spironolactone [Aldactone] 50 mg PO DAILY #30 tablet 04/28/17 11/05/17 Warfarin [Coumadin] 5 mg PO DAILY 10/04/17 11/05/17 - Allergies Allergies/Adverse Reactions: Allergies Allergy/AdvReac Type Severity Reaction Status Date / Time No Known Drug Allergies Allergy Verified 11/05/17 02:16 - Social History Does the pt smoke?: Yes Smoking Status: Current every day smoker Does the pt drink ETOH?: Yes Does the pt have substance abuse?: Yes - Immunizations Immunizations are current?: Yes - POLST Patient has POLST: No POLST Status: Full Code PD ED PE NORMAL - Vitals Vital signs reviewed: Yes (tachy and diastolic hypertension ) - General General: Alert and oriented X 3, Well developed/nourished, Other (tachypnea at rest with O2 in place. ) - HEENT HEENT: Atraumatic, PERRL, EOMI - Neck Neck: Supple, no meningeal sign, No bony TTP - Cardiac Cardiac: Other (tachy to 110 with 2/6 holosytolic murmer at LSB) - Respiratory Respiratory: Other (tachypneic at rest with tiny crackles in the right base ) - Abdomen Abdomen: Soft, Non tender - Back Back: No CVA TTP, No spinal TTP - Derm Derm: Normal color, Warm and dry, No rash - Extremities Extremities: No deformity, Other (There is pitting edema to both LE to the knee) - Neuro Neuro: Alert and oriented X 3, shingle catcher 2-12 intact, No motor deficit, No sensory deficit, Normal speech Eye Opening: Spontaneous Motor: Obeys Commands Verbal: Oriented GCS Score: 15 - Psych Psych: Normal mood, Normal affect Results - Vitals Vitals: Vital Signs - 24 hr 11/05/17 11/05/17 11/05/17 02:12 03:12 04:09 Temperature 36.7 C Heart Rate 121 H 97 100 Respiratory 22 13 19 Rate Blood Pressure 116/92 H 132/103 H 112/91 H O2 Saturation 95 96 99 Oxygen O2 Source Nasal cannula Oxygen Flow Rate 4 - EKG (time done) 0216 Rate: Rate (enter#) (123) Rhythm: Sinus tachycardia [place]: LAD Intervals: Prolonged QT Ischemia: Q waves Compare to prior EKG: Unchanged from prior EKG (SPT 10-04-17 no significant change. ) Computer interpretation: Agree with computer - Labs Labs: Laboratory Tests 11/05/17 11/05/17 11/05/17 02:30 02:30 02:30 WBC 8.3 RBC 4.70 Hgb 16.4 Hct 48.8 MCV 103.8 H MCH 34.9 H MCHC 33.6 RDW 14.7 Plt Count 174 MPV 9.9 Neut # (Auto) 6.5 Lymph # (Auto) 0.9 L [place] # (Auto) 0.8 Eos # (Auto) 0.1 Baso # (Auto) 0.0 Absolute Nucleated RBC 0.01 Nucleated RBC % 0.2 PT 25.9 H INR 2.4 H Sodium 127 L Potassium 4.3 Chloride 91 L Carbon Dioxide 24 Anion Gap 12.0 BUN 35 H Creatinine 1.4 H Estimated GFR (MDRD) 52 L Glucose 120 H Calcium 9.2 Total Bilirubin 1.3 H AST 81 H ALT 128 H Alkaline Phosphatase 181 H Troponin I B-Natriuretic Peptide Total Protein 6.8 Albumin 3.9 Globulin 2.9 Albumin/Globulin Ratio 1.3 Lipase 53 H Urine Color Urine Clarity Urine pH Ur Specific [place] Urine Protein Urine Glucose (UA) Urine Ketones Urine Occult Blood Urine Nitrite Urine Bilirubin Urine Urobilinogen Ur Leukocyte Esterase Ur Microscopic Review Urine Culture Comments Ethyl Alcohol 11/05/17 11/05/17 11/05/17 02:30 02:30 02:35 WBC RBC Hgb Hct MCV MCH MCHC RDW Plt Count MPV Neut # (Auto) Lymph # (Auto) [place] # (Auto) Eos # (Auto) Baso # (Auto) Absolute Nucleated RBC Nucleated RBC % PT INR Sodium Potassium Chloride Carbon Dioxide Anion Gap BUN Creatinine Estimated GFR (MDRD) Glucose Calcium Total Bilirubin AST ALT Alkaline Phosphatase Troponin I 0.07 B-Natriuretic Peptide 4683.00 H Total Protein Albumin Globulin Albumin/Globulin Ratio Lipase Urine Color Urine Clarity Urine pH Ur Specific [place] Urine Protein Urine Glucose (UA) Urine Ketones Urine Occult Blood Urine Nitrite Urine Bilirubin Urine Urobilinogen Ur Leukocyte Esterase Ur Microscopic Review Urine Culture Comments Ethyl Alcohol < 5.0 11/05/17 03:30 WBC RBC Hgb Hct MCV MCH MCHC RDW Plt Count MPV Neut # (Auto) Lymph # (Auto) [place] # (Auto) Eos # (Auto) Baso # (Auto) Absolute Nucleated RBC Nucleated RBC % PT INR Sodium Potassium Chloride Carbon Dioxide Anion Gap BUN Creatinine Estimated GFR (MDRD) Glucose Calcium Total Bilirubin AST ALT Alkaline Phosphatase Troponin I B-Natriuretic Peptide Total Protein Albumin Globulin Albumin/Globulin Ratio Lipase Urine Color YELLOW Urine Clarity CLEAR Urine pH 6.0 Ur Specific [place] 1.015 Urine Protein NEGATIVE Urine Glucose (UA) NEGATIVE Urine Ketones NEGATIVE Urine Occult Blood NEGATIVE Urine Nitrite NEGATIVE Urine Bilirubin NEGATIVE Urine Urobilinogen 0.2 (NORMAL) Ur Leukocyte Esterase NEGATIVE Ur Microscopic Review NOT INDICATED Urine Culture Comments NOT INDICATED Ethyl Alcohol - Rads (name of study) 2 view chest Radiology: Prelim report reviewed (Impression: New small right pleural effusion. Stable cardiomegaly and right basilar airspace disease.), EMP read indepedently, See rad report Procedures - IVC sono (time) 0220 Bedside IVC sono: IVC measures (cm) (2.26), IVC collapsed c insp (cm) (2.26), Collapsibility index (0), High CVP, Fluid overload PD MEDICAL DECISION MAKING - ED course Complexity details: reviewed old records, reviewed results, re-evaluated patient, considered differential, d/w patient ED course: 57 y/o homeless male with a history of CHF and COPD has arrived to the ED early this morning with shortness of breath worse when he tries to lay back. He has adequate O2 sat at rest and clear lungs on exam and his IVC is plethoric and dilated consistent with CHF. He is administered lasix 80mg IVP while his diagnostics are being run. His diagnostics reveal hponatremia and elevation of LFT's consistent with passive liver congestion and this is new for the patient. His BNP is 4683 and the CXR is without evidence of overt failure, with improvement in right lower lobe consolidation but new small pleural effusion. He is decompensated and has progression of disease. Admission is sought. - Sepsis Event Vital Signs: Vital Signs - 24 hr 11/05/17 11/05/17 11/05/17 02:12 03:12 04:09 Temperature 36.7 C Heart Rate 121 H 97 100 Respiratory 22 13 19 Rate Blood Pressure 116/92 H 132/103 H 112/91 H O2 Saturation 95 96 99 Oxygen O2 Source Nasal cannula Oxygen Flow Rate 4 Departure - Departure Disposition: 66 [facility] DC/Xfer Clinical Impression: Hyponatremia Congestive heart failure Qualifiers: Heart failure type: right heart failure due to left heart failure Qualified Code(s): I50.814 - Right heart failure due to left heart failure
[2017-11-05 02:45] LABS: BASOPHILS % (AUTO) 0.2 %; EOSINOPHILS # (AUTO) 0.1 10^3/uL (0.0-0.7); EOSINOPHILS % (AUTO) 0.7 %; HGB - HEMOGLOBIN 16.4 g/dL (14.0-18.0); LYMPHOCYTES # (AUTO) 0.9 10^3/uL (1.5-3.5); LYMPHOCYTES % (AUTO) 11.1 %; MEAN CORPUSCULAR HEMOGLOBIN 34.9 pg (27.0-31.0); MEAN CORPUSCULAR HGB CONC 33.6 g/dL (32.0-36.0); MEAN CORPUSCULAR VOLUME 103.8 fL (80.0-94.0); MEAN PLATELET VOLUME 9.9 fL (7.4-11.4); MONOCYTES # (AUTO) 0.8 10^3/uL (0.0-1.0); MONOCYTES % (AUTO) 9.5 %; NEUTROPHILS # (AUTO) 6.5 10^3/uL (1.5-6.6); NEUTROPHILS % (AUTO) 78.5 %; PLT - PLATELET COUNT 174 10^3/uL (130-450); RED CELL DISTRIBUTION WIDTH 14.7 % (12.0-15.0); WHITE BLOOD COUNT 8.3 x10^3/uL (4.8-10.8)
[2017-11-05 02:48] LABS: INR 2.4 (0.8-1.2); PT - PROTHROMBIN TIME 25.9 secs (9.9-12.6)
[2017-11-05 02:56] LABS: ALBUMIN 3.9 g/dL (3.2-5.5); ALBUMIN/GLOBULIN RATIO 1.3 (1.0-2.2); BILIRUBIN,TOTAL 1.3 mg/dL (0.2-1.0); CALCIUM 9.2 mg/dL (8.5-10.3); CREATININE 1.4 mg/dL (0.6-1.2); TOTAL PROTEIN 6.8 g/dL (6.7-8.2)
--- NOTE | 2017-11-05 03:06 | XRAY Report ---
Reason: soa Procedure Date: 11/05/2017 Accession Number: [id number] / [id number] Procedure: XR - Chest 2 View X-Ray CPT Code: 22294 FULL RESULT: EXAM: CHEST RADIOGRAPHY EXAM DATE: 11/05/2017 02:55 AM. CLINICAL HISTORY: Soa. COMPARISON: CHEST 1 VIEW 10/10/2017 11:52 AM. TECHNIQUE: 2 views. FINDINGS: Lungs/Pleura: Small right effusion, new from previous. Stable right basilar airspace disease. Left lung remains clear. No pneumothorax. Mediastinum: Stable cardiomegaly. Other: None. IMPRESSION: New small right pleural effusion. Stable cardiomegaly and right basilar airspace disease. RADIA
[2017-11-05 03:47] LABS: BILIRUBIN,URINE NEGATIVE (NEGATIVE); GLUCOSE, URINE (UA) NEGATIVE (NEGATIVE); KETONES,URINE (UA) NEGATIVE (NEGATIVE); LEUKOCYTE ESTERASE, URINE NEGATIVE (NEGATIVE); NITRITE,URINE NEGATIVE (NEGATIVE); OCCULT BLOOD,URINE NEGATIVE (NEGATIVE); PROTEIN,URINE NEGATIVE (NEGATIVE); UROBILINOGEN,URINE 0.2 (NORMAL) E.U./dL (NORMAL)
[2017-11-05 04:01] LABS: CLARITY,URINE CLEAR (CLEAR)
[2017-11-05] MEDS ORDERED: ONDANSETRON ODT 4 MG TABLET TL PRN (04:41)
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
[2017-11-05] MEDS: FUROSEMIDE 40 MG/4 ML VIAL IVP SCH ×2 (08:18→14:07)
[2017-11-05] MEDS ORDERED: LISINOPRIL 5 MG TABLET PO SCH (09:00)
[2017-11-05] MEDS ORDERED: SPIRONOLACTONE 25 MG TABLET PO SCH (09:00)
[2017-11-05] MEDS ORDERED: METOPROLOL SUCCINATE 25 MG TABLET PO SCH (09:00)
[2017-11-05] MEDS: ASPIRIN EC 81 MG TABLET PO SCH (09:02)
[2017-11-05 09:04] LABS: MUDS CUTOFF CONCENTRATIONS CUTOFF CONC BELOW:
[2017-11-05] MEDS: CITALOPRAM 10 MG TABLET PO SCH (09:04)
[2017-11-05] MEDS: SODIUM CHLORIDE FLUSH 0.9% 10 ML SYRINGE IVP SCH ×2 (09:04→16:42)
[2017-11-05] MEDS: POLYETHYLENE GLYCOL 3350 17 GM PACKET PO SCH (09:04)
[2017-11-05 09:23] LABS: AMPHETAMINE SCREEN,URINE NEGATIVE (NEGATIVE); BENZODIAZEPINES SCREEN, URINE NEGATIVE (NEGATIVE); COCAINE SCREEN URINE NEGATIVE (NEGATIVE); METHADONE SCREEN, URINE NEGATIVE (NEGATIVE); METHAMPHETAMINES SCREEN, URINE NEGATIVE (NEGATIVE); OPIATE SCREEN, URINE NEGATIVE (NEGATIVE); OXYCODONE SCREEN, URINE NEGATIVE (NEGATIVE); PROPOXYPHENE SCREEN, URINE NEGATIVE (NEGATIVE); TRICYCLIC ANTIDEPRESSANT,URINE NEGATIVE (NEGATIVE)
[2017-11-05] MEDS: AMIODARONE 200 MG TABLET PO SCH (13:05)
[2017-11-05] MEDS: GI COCKTAIL 120 ML BOTTLE PO SCH ×2 (13:05→21:20)
[2017-11-05 13:33] LABS: CREATININE 1.2 mg/dL (0.6-1.2)
[2017-11-05] MEDS: WARFARIN 5 MG TABLET PO SCH (14:07)
[2017-11-05] MEDS: SODIUM CHLORIDE FLUSH 0.9% 10 ML SYRINGE IVP PRN (14:08)
[2017-11-05] MEDS ORDERED: LORazepam 0.5 MG TABLET PO PRN (14:10)
[2017-11-05] MEDS ORDERED: LEVALBUTEROL 1.25 MG/3 ML NEB INH PRN (19:00)
[2017-11-06] MEDS: SODIUM CHLORIDE FLUSH 0.9% 10 ML SYRINGE IVP SCH ×3 (00:03→20:54)
[2017-11-06 05:18] LABS: INR 2.3 (0.8-1.2); PT - PROTHROMBIN TIME 25.1 secs (9.9-12.6)
[2017-11-06 05:22] LABS: ALBUMIN 3.5 g/dL (3.2-5.5); ALBUMIN/GLOBULIN RATIO 1.4 (1.0-2.2); BILIRUBIN,TOTAL 1.9 mg/dL (0.2-1.0); CALCIUM 8.8 mg/dL (8.5-10.3); CREATININE 1.3 mg/dL (0.6-1.2)
[2017-11-06] MEDS: FUROSEMIDE 40 MG/4 ML VIAL IVP SCH ×2 (05:40→16:11)
[2017-11-06] MEDS: SODIUM CHLORIDE FLUSH 0.9% 10 ML SYRINGE IVP PRN ×2 (05:44→05:45)
--- NOTE | 2017-11-06 07:36 | PROVIDER PROGRESS NOTE ---
Subjective - Prog Note Date Prog Note Date: 11/06/17 Prog Note Time: 07:36 - Subjective Pt reports feeling: Improved Subjective: João complains of ongoing activity intolerance. He denies any new symptoms such as headaches, nausea, vomiting, rashes, a productive cough, or diarrhea. Current Medications - Current Medications Current Medications: Active Medications Amiodarone HCl (Pacerone) 200 mg PO DAILY [facility] Last Admin: 11/06/17 09:50 Dose: 200 mg Aspirin (Ecotrin) 81 mg PO DAILY [facility] Last Admin: 11/06/17 09:50 Dose: 81 mg Citalopram Hydrobromide (Celexa) 40 mg PO DAILY [facility] Last Admin: 11/06/17 09:50 Dose: 40 mg Furosemide (Lasix Inj 40 Mg Vial) 40 mg IVP BIDDIURETIC [facility] Last Admin: 11/06/17 16:11 Dose: Not Given Levalbuterol HCl (Xopenex) 1.25 mg INH RTQ4H PRN PRN Reason: Wheezing Levalbuterol HCl (Xopenex) 1.25 mg INH RTTID [facility] Last Admin: 11/06/17 17:12 Dose: 1.25 mg Lisinopril (Zestril) 2.5 mg PO DAILY [facility] Last Admin: 11/06/17 09:51 Dose: 2.5 mg Lorazepam (Ativan) 0.5 mg PO Q6H PRN PRN Reason: Anxiety Metoprolol Succinate (Toprol Xl) 25 mg PO DAILY [facility] Last Admin: 11/06/17 09:50 Dose: 25 mg Morphine Sulfate (Morphine (Carpuject)) 2 mg IVP Q2HR PRN PRN Reason: PAIN Multi-Ingredient Mouthwash/Gargle () 30 ml PO Q6H PRN PRN Reason: Heartburn Multivitamins (Theragran) 1 tab PO DAILY [facility] Last Admin: 11/06/17 09:50 Dose: 1 tab Ondansetron HCl (Zofran Inj) 4 mg IVP Q6HR PRN PRN Reason: Nausea / Vomiting Ondansetron HCl (Zofran Odt) 4 mg TL Q6HR PRN PRN Reason: Nausea / Vomiting Oxycodone HCl (Roxicodone) 5 mg PO Q4HR PRN PRN Reason: Pain 5 to 7 Polyethylene Glycol (Miralax) 17 gm PO DAILY [facility] Last Admin: 11/06/17 09:51 Dose: Not Given Sodium Chloride (Normal Saline Flush 0.9%) 10 ml IVP PRN PRN PRN Reason: NEEDED PER PROVIDER ORDERS Last Admin: 11/06/17 05:45 Dose: 10 ml Sodium Chloride (Normal Saline Flush 0.9%) 10 ml IVP 0100,0900,1700 [facility] Last Admin: 11/06/17 09:51 Dose: 10 ml Spironolactone (Aldactone) 50 mg PO DAILY [facility] Last Admin: 11/06/17 09:50 Dose: 50 mg Warfarin Sodium (Coumadin) 5 mg PO QDWARFARIN [facility] Last Admin: 11/06/17 14:33 Dose: 5 mg Warfarin [Coumadin] 5 mg PO DAILY 10/04/17 Amiodarone HCl 200 mg PO DAILY 11/05/17 Multivitamin [Theragran] 1 tab PO DAILY 11/05/17 Objective - Vital Signs/Intake & Output Reviewed Vital Signs: Yes Vital Signs: Vital Signs x48h Temp Pulse Resp BP BP Pulse Ox 11/06/17 05:47 102/81 H 11/06/17 05:41 98/72 11/06/17 04:39 36.5 C 88 20 108/76 98 11/06/17 00:00 36.3 C L 93 20 91/59 L 98 Intake & Output: Intake & Output 11/03/17 11/04/17 11/05/17 11/06/17 23:59 23:59 23:59 23:59 Intake Total 530 100 Output Total 1450 450 Balance -920 -350 - Objective General Appearance: positive: Alert, Moderate distress Eyes Bilateral: positive: Normal inspection Eyes: OU Conjunctivae pale ENT: positive: Pharyngeal erythema, Dry mucous membranes Neck: positive: Thyroid nml, No JVD, Trachea midline Respiratory: positive: Chest non-tender, No respiratory distress Cardiovascular: positive: No gallop, Irregularly irregular, Tachycardia, Systolic murmur, Diastolic murmur, Decreased pulse(s) Peripheral Pulses: 1+ Radial (R), 1+ Radial (L) Abdomen: positive: Non-tender, Nml bowel sounds Back: positive: Nml inspection Skin: positive: No rash, Warm, Dry Extremities: positive: Pedal edema, Joint swelling Neurologic/Psychiatric: positive: Oriented x3, CN's nml (2-12), Weakness, Se nsory loss, Depressed mood/affect Reflexes: Bicep (R): 3+, Bicep (L): 3+ - Lab Results Fish Bones: 11/05/17 02:30 11/06/17 04:30 Other Labs: Lab Results x24hrs 11/06/17 11/06/17 11/06/17 Range/Units 04:30 04:30 04:30 PT 25.1 H (9.9-12.6) secs INR 2.3 H (0.8-1.2) Sodium 128 L (135-145) mmol/L Potassium 4.8 (3.5-5.0) mmol/L Chloride 92 L (101-111) mmol/L Carbon Dioxide 25 (21-32) mmol/L Anion Gap 11.0 (6-13) BUN 34 H (6-20) mg/dL Creatinine 1.3 H (0.6-1.2) mg/dL Estimated GFR (MDRD) 57 L (>89) Glucose 106 H (70-100) mg/dL Calcium 8.8 (8.5-10.3) mg/dL Magnesium 2.0 (1.7-2.8) mg/dL Total Bilirubin 1.9 H (0.2-1.0) mg/dL AST 64 H (10-42) IU/L ALT 104 H (10-60) IU/L Alkaline Phosphatase 153 H (42-121) IU/L Troponin I (<0.49) ng/mL B-Natriuretic Peptide 7868.00 H (5-100) pg/mL Total Protein 6.0 L (6.7-8.2) g/dL Albumin 3.5 (3.2-5.5) g/dL Globulin 2.5 (2.1-4.2) g/dL Albumin/Globulin Ratio 1.4 (1.0-2.2) Urine Opiates Screen (NEGATIVE) Ur Oxycodone Screen (NEGATIVE) Urine Methadone Screen (NEGATIVE) Ur Propoxyphene Screen (NEGATIVE) Ur Barbiturates Screen (NEGATIVE) Ur Tricyclics Screen (NEGATIVE) Ur Phencyclidine Scrn (NEGATIVE) Ur Amphetamine Screen (NEGATIVE) U Methamphetamines Scrn (NEGATIVE) U Benzodiazepines Scrn (NEGATIVE) Urine Cocaine Screen (NEGATIVE) U Cannabinoids Screen (NEGATIVE) 11/05/17 11/05/17 11/05/17 Range/Units 13:02 13:02 08:35 PT (9.9-12.6) secs INR (0.8-1.2) Sodium 128 L (135-145) mmol/L Potassium 4.1 (3.5-5.0) mmol/L Chloride 91 L (101-111) mmol/L Carbon Dioxide 27 (21-32) mmol/L Anion Gap 10.0 (6-13) BUN 32 H (6-20) mg/dL Creatinine 1.2 (0.6-1.2) mg/dL Estimated GFR (MDRD) 63 L (>89) Glucose 106 H (70-100) mg/dL Calcium 9.0 (8.5-10.3) mg/dL Magnesium (1.7-2.8) mg/dL Total Bilirubin (0.2-1.0) mg/dL AST (10-42) IU/L ALT (10-60) IU/L Alkaline Phosphatase (42-121) IU/L Troponin I 0.07 (<0.49) ng/mL B-Natriuretic Peptide (5-100) pg/mL Total Protein (6.7-8.2) g/dL Albumin (3.2-5.5) g/dL Globulin (2.1-4.2) g/dL Albumin/Globulin Ratio (1.0-2.2) Urine Opiates Screen NEGATIVE (NEGATIVE) Ur Oxycodone Screen NEGATIVE (NEGATIVE) Urine Methadone Screen NEGATIVE (NEGATIVE) Ur Propoxyphene Screen NEGATIVE (NEGATIVE) Ur Barbiturates Screen NEGATIVE (NEGATIVE) Ur Tricyclics Screen NEGATIVE (NEGATIVE) Ur Phencyclidine Scrn NEGATIVE (NEGATIVE) Ur Amphetamine Screen NEGATIVE (NEGATIVE) U Methamphetamines Scrn NEGATIVE (NEGATIVE) U Benzodiazepines Scrn NEGATIVE (NEGATIVE) Urine Cocaine Screen NEGATIVE (NEGATIVE) U Cannabinoids Screen POSITIVE H (NEGATIVE) ABX Reporting Has patient been on IV antibiotics over the past 48 hours?: No Assessment/Plan - Problem List (1) Acute combined systolic and diastolic CHF, NYHA class 3 Impression: The patient's BNP on admission was elevated at 4683, and today continues to climb at 7868. This abnormality is influenced by his kidney function, so it is somewhat expected with the IV lasix that he has been given during this stay. Clinically, the patient appears improved as his BLE edema is reduced, but remains with abdominal edema. He complains of an increasing cough today, but I cannot appreciated crackles upon exam. He has received BID IV lasix at 40mg, bu t today his blood pressure will not allow the second dose. Since his edema is overall less, I recommend holding this. He continues on amioderone and metoprolol. Plan: Continue to monitor fluid status, monitor urine out put, and daily weights. (2) ESTEVAN (acute kidney injury) Impression: The patient has had a steady decline in his kidney function and upon admission was found to have an elevated creatinine of 1.4, that was improved at 1.2 and today is 1.3. The GFR was reduced at 52 upon admission, improved to 63, and is now 57. He is on IV lasix with BID dosing, and his leg edema is much improved today. He appears to be making urine, but I am unsure about the charting. I will write a communication note about Strict I/O charting. Plan: Continue daily labs, weights, and strict I/Os. (3) Atrial fibrillation with RVR Impression: The patient has been in this rhythm for at least the past 2 admissions. His r ates reach 120-150's at times. He recently had a cardiology consult with Dr. Pickett in [place] who plans to do a cardioversion after the patient is anticoagulated for a while. The patient denies palpitations, chest pain or tightness, or profound dizziness. He remains on telemetry and is mildly tach ycardic with heart rates ~90. Plan: Continue rate control meds and monitor on telemetry. (4) Do not resuscitate Impression: The patient states that his admitting MD talked with him about end of life plans and he believes that he may only have 3-5 years left to live. The patient more likely has less than one year to live based on his multi-organ dysfunction and his extremely poor heart function. Plan: Continue DNR code status, and have ongoing conversations, consider palliative care consult. (5) Homelessness Impression: The patient frequently reminds the medical team of this fact and has been set up with community resources when he is not in the hospital. He states that he has been homeless for at least the past year due to rent amounts going too high. Plan: Continue to treat this acute illness, and social work support for upcoming discharge. (6) Elevated LFTs Impression: The patient had very elevated LFTs with an AST/ALT of 128/181, that have improved only slightly today to 104/153. This abnormality was likely a result of CHF congestion. The patient also has an elevated bili of 1.9, up from 1.3, but does not appear jaundice. Plan: Continue to monitor and avoid liver toxic meds. (7) Hyponatremia Impression: The patient was found to have a low sodium level of 127, that is only slightly improved today at 128. This is likely a consequence of his fluid imbalance. The patient is not thought to have altered mental status as compared to previous admissions. Plan: Continue to monitor daily labs.
[2017-11-06] MEDS: CITALOPRAM 10 MG TABLET PO SCH (09:50)
[2017-11-06] MEDS: AMIODARONE 200 MG TABLET PO SCH (09:50)
[2017-11-06] MEDS: MULTIVITAMIN TABLET PO SCH (09:50)
[2017-11-06] MEDS: METOPROLOL SUCCINATE 25 MG TABLET PO SCH (09:50)
[2017-11-06] MEDS: ASPIRIN EC 81 MG TABLET PO SCH (09:50)
[2017-11-06] MEDS: SPIRONOLACTONE 25 MG TABLET PO SCH (09:50)
[2017-11-06] MEDS: POLYETHYLENE GLYCOL 3350 17 GM PACKET PO SCH (09:51)
[2017-11-06] MEDS: LISINOPRIL 5 MG TABLET PO SCH (09:51)
[2017-11-06 13:56] LABS: HEPATITIS A IGM NON-REACTIVE (NON-REACTIVE); HEPATITIS B CORE ANTIBODY IGM NON-REACTIVE (NON-REACTIVE); HEPATITIS B SURFACE ANTIGEN NON-REACTIVE (NON-REACTIVE); HEPATITIS C ANTIBODY REACTIVE (NON-REACTIVE)
[2017-11-06] MEDS: WARFARIN 5 MG TABLET PO SCH (14:33)
[2017-11-06] MEDS: LEVALBUTEROL 1.25 MG/3 ML NEB INH SCH ×2 (17:12→19:58)
[2017-11-07] MEDS: SODIUM CHLORIDE FLUSH 0.9% 10 ML SYRINGE IVP SCH ×3 (01:09→17:25)
[2017-11-07 06:41] LABS: BASOPHILS % (AUTO) 0.2 %; EOSINOPHILS % (AUTO) 0.3 %; HGB - HEMOGLOBIN 15.8 g/dL (14.0-18.0); INR 2.5 (0.8-1.2); LYMPHOCYTES % (AUTO) 13.7 %; MEAN CORPUSCULAR HEMOGLOBIN 34.5 pg (27.0-31.0); MEAN CORPUSCULAR HGB CONC 33.9 g/dL (32.0-36.0); MEAN CORPUSCULAR VOLUME 101.8 fL (80.0-94.0); MEAN PLATELET VOLUME 10.2 fL (7.4-11.4); MONOCYTES # (AUTO) 0.8 10^3/uL (0.0-1.0); MONOCYTES % (AUTO) 10.2 %; NEUTROPHILS # (AUTO) 5.8 10^3/uL (1.5-6.6); NEUTROPHILS % (AUTO) 75.6 %; PLT - PLATELET COUNT 170 10^3/uL (130-450); PT - PROTHROMBIN TIME 27.3 secs (9.9-12.6); RED BLOOD COUNT 4.58 10^6/uL (4.70-6.10); RED CELL DISTRIBUTION WIDTH 14.5 % (12.0-15.0); WHITE BLOOD COUNT 7.6 x10^3/uL (4.8-10.8)
[2017-11-07 06:50] LABS: ALBUMIN 3.5 g/dL (3.2-5.5); ALBUMIN/GLOBULIN RATIO 1.5 (1.0-2.2); BILIRUBIN,TOTAL 1.6 mg/dL (0.2-1.0); CALCIUM 8.5 mg/dL (8.5-10.3); CREATININE 1.3 mg/dL (0.6-1.2); TOTAL PROTEIN 5.8 g/dL (6.7-8.2)
[2017-11-07] MEDS: FUROSEMIDE 40 MG/4 ML VIAL IVP SCH ×2 (07:19→17:25)
[2017-11-07] MEDS: AMIODARONE 200 MG TABLET PO SCH (09:00)
[2017-11-07] MEDS: SPIRONOLACTONE 25 MG TABLET PO SCH (09:00)
[2017-11-07] MEDS: ASPIRIN EC 81 MG TABLET PO SCH (09:00)
[2017-11-07] MEDS: MULTIVITAMIN TABLET PO SCH (09:00)
[2017-11-07] MEDS: LISINOPRIL 5 MG TABLET PO SCH (09:00)
[2017-11-07] MEDS: CITALOPRAM 10 MG TABLET PO SCH (09:00)
[2017-11-07] MEDS: METOPROLOL SUCCINATE 25 MG TABLET PO SCH ×2 (09:00→21:12)
[2017-11-07] MEDS: POLYETHYLENE GLYCOL 3350 17 GM PACKET PO SCH (09:01)
[2017-11-07] MEDS: LEVALBUTEROL 1.25 MG/3 ML NEB INH SCH ×3 (09:15→19:11)
--- NOTE | 2017-11-07 11:58 | PROVIDER PROGRESS NOTE ---
Subjective - Prog Note Date Prog Note Date: 11/07/17 Prog Note Time: 11:57 - Subjective Pt reports feeling: Improved Subjective: João complains of his lack of energy and states that he can only make it to the bathroom and back before becoming short of breath and exhausted. He denies any new symptoms such as headaches, productive cough, rashes, nausea, vomiting or chest pain. Current Medications - Current Medications Current Medications: Active Medications Amiodarone HCl (Pacerone) 200 mg PO DAILY [facility] Last Admin: 11/07/17 09:00 Dose: 200 mg Aspirin (Ecotrin) 81 mg PO DAILY [facility] Last Admin: 11/07/17 09:00 Dose: 81 mg Citalopram Hydrobromide (Celexa) 40 mg PO DAILY [facility] Last Admin: 11/07/17 09:00 Dose: 40 mg Furosemide (Lasix Inj 40 Mg Vial) 40 mg IVP BIDDIURETIC [facility] Last Admin: 11/07/17 07:19 Dose: 40 mg Levalbuterol HCl (Xopenex) 1.25 mg INH RTQ4H PRN PRN Reason: Wheezing Levalbuterol HCl (Xopenex) 1.25 mg INH RTTID [facility] Last Admin: 11/07/17 09:15 Dose: 1.25 mg Lisinopril (Zestril) 2.5 mg PO DAILY [facility] Last Admin: 11/07/17 09:00 Dose: 2.5 mg Lorazepam (Ativan) 0.5 mg PO Q6H PRN PRN Reason: Anxiety Metoprolol Succinate (Toprol Xl) 25 mg PO DAILY [facility] Last Admin: 11/07/17 09:00 Dose: 25 mg Morphine Sulfate (Morphine (Carpuject)) 2 mg IVP Q2HR PRN PRN Reason: PAIN Multi-Ingredient Mouthwash/Gargle () 30 ml PO Q6H PRN PRN Reason: Heartburn Multivitamins (Theragran) 1 tab PO DAILY [facility] Last Admin: 11/07/17 09:00 Dose: 1 tab Ondansetron HCl (Zofran Inj) 4 mg IVP Q6HR PRN PRN Reason: Nausea / Vomiting Ondansetron HCl (Zofran Odt) 4 mg TL Q6HR PRN PRN Reason: Nausea / Vomiting Oxycodone HCl (Roxicodone) 5 mg PO Q4HR PRN PRN Reason: Pain 5 to 7 Polyethylene Glycol (Miralax) 17 gm PO DAILY [facility] Last Admin: 11/07/17 09:01 Dose: Not Given Sodium Chloride (Normal Saline Flush 0.9%) 10 ml IVP PRN PRN PRN Reason: NEEDED PER PROVIDER ORDERS Last Admin: 11/06/17 05:45 Dose: 10 ml Sodium Chloride (Normal Saline Flush 0.9%) 10 ml IVP 0100,0900,1700 [facility] Last Admin: 11/07/17 09:01 Dose: 10 ml Spironolactone (Aldactone) 50 mg PO DAILY [facility] Last Admin: 11/07/17 09:00 Dose: 50 mg Warfarin Sodium (Coumadin) 5 mg PO QDWARFARIN [facility] Last Admin: 11/06/17 14:33 Dose: 5 mg Warfarin [Coumadin] 5 mg PO DAILY 10/04/17 Amiodarone HCl 200 mg PO DAILY 11/05/17 Multivitamin [Theragran] 1 tab PO DAILY 11/05/17 Objective - Vital Signs/Intake & Output Reviewed Vital Signs: Yes Vital Signs: Vital Signs x48h Temp Pulse Pulse Resp BP Pulse Ox 11/07/17 09:15 52 L 16 11/07/17 08:12 36.5 C 117 H 18 94/76 98 11/07/17 05:00 36.3 C L 96 16 92/69 97 Intake & Output: Intake & Output 11/04/17 11/05/17 11/06/17 11/07/17 23:59 23:59 23:59 23:59 Intake Total 530 1230 Output Total 1450 1065 450 Balance -920 165 -450 - Objective General Appearance: positive: Alert, Moderate distress, Anxious Eyes Bilateral: positive: PERRL Eyes: OU Conjunctivae pale, OU Scleral icterus ENT: positive: ENT inspection nml, Pharyngeal erythema, Dry mucous membranes Neck: positive: Thyroid nml, No JVD, Trachea midline, Stiff neck Respiratory: positive: Chest non-tender, No respiratory distress, Other (crackles, diminished throughout both lung bases.) Cardiovascular: positive: No gallop, Irregularly irregular, Tachycardia, Systolic murmur Peripheral Pulses: 1+ Radial (R), 1+ Radial (L) Abdomen: positive: Non-tender, Nml bowel sounds Back: positive: Nml inspection Skin: positive: No rash, Warm, Dry, Other (multiple scattered bruises.) Extremities: positive: Non-tender, Pedal edema (reduced from admission, but still has pitting edema about FAIZAN hose, BLE), Joint swelling Neurologic/Psychiatric: positive: Oriented x3, CN's nml (2-12), Motor nml, Sensation nml, Weakness, Depressed mood/affect Reflexes: Bicep (R): 3+, Bicep (L): 3+ - Lab Results Fish Bones: 11/07/17 05:48 11/07/17 05:48 Other Labs: Lab Results x24hrs 11/07/17 11/07/17 11/07/17 Range/Units 05:48 05:48 05:48 WBC 7.6 (4.8-10.8) x10^3/uL RBC 4.58 L (4.70-6.10) 10^6/uL Hgb 15.8 (14.0-18.0) g/dL Hct 46.6 (42.0-52.0) % MCV 101.8 H (80.0-94.0) fL MCH 34.5 H (27.0-31.0) pg MCHC 33.9 (32.0-36.0) g/dL RDW 14.5 (12.0-15.0) % Plt Count 170 (130-450) 10^3/uL MPV 10.2 (7.4-11.4) fL Neut # (Auto) 5.8 (1.5-6.6) 10^3/uL Lymph # (Auto) 1.0 L (1.5-3.5) 10^3/uL Harris # (Auto) 0.8 (0.0-1.0) 10^3/uL Eos # (Auto) 0.0 (0.0-0.7) 10^3/uL Baso # (Auto) 0.0 (0.0-0.1) 10^3/uL Absolute Nucleated RBC 0.02 x10^3/uL Nucleated RBC % 0.3 /100WBC PT 27.3 H (9.9-12.6) secs INR 2.5 H (0.8-1.2) Sodium (135-145) mmol/L Potassium (3.5-5.0) mmol/L Chloride (101-111) mmol/L Carbon Dioxide (21-32) mmol/L Anion Gap (6-13) BUN (6-20) mg/dL Creatinine (0.6-1.2) mg/dL Estimated GFR (MDRD) (>89) Glucose (70-100) mg/dL Calcium (8.5-10.3) mg/dL Magnesium (1.7-2.8) mg/dL Total Bilirubin (0.2-1.0) mg/dL AST (10-42) IU/L ALT (10-60) IU/L Alkaline Phosphatase (42-121) IU/L B-Natriuretic Peptide 7399.00 H (5-100) pg/mL Total Protein (6.7-8.2) g/dL Albumin (3.2-5.5) g/dL Globulin (2.1-4.2) g/dL Albumin/Globulin Ratio (1.0-2.2) Hepatitis A IgM Ab (NON-REACTIVE) Hep Bs Antigen (NON-REACTIVE) Hep B Core IgM Ab (NON-REACTIVE) Hepatitis C Antibody (NON-REACTIVE) Hep C Ab Signal/Cutoff (<1.00) 11/07/17 11/05/17 Range/Units 05:48 13:02 WBC (4.8-10.8) x10^3/uL RBC (4.70-6.10) 10^6/uL Hgb (14.0-18.0) g/dL Hct (42.0-52.0) % MCV (80.0-94.0) fL MCH (27.0-31.0) pg MCHC (32.0-36.0) g/dL RDW (12.0-15.0) % Plt Count (130-450) 10^3/uL MPV (7.4-11.4) fL Neut # (Auto) (1.5-6.6) 10^3/uL Lymph # (Auto) (1.5-3.5) 10^3/uL Harris # (Auto) (0.0-1.0) 10^3/uL Eos # (Auto) (0.0-0.7) 10^3/uL Baso # (Auto) (0.0-0.1) 10^3/uL Absolute Nucleated RBC x10^3/uL Nucleated RBC % /100WBC PT (9.9-12.6) secs INR (0.8-1.2) Sodium 124 L (135-145) mmol/L Potassium 4.2 (3.5-5.0) mmol/L Chloride 91 L (101-111) mmol/L Carbon Dioxide 22 (21-32) mmol/L Anion Gap 11.0 (6-13) BUN 36 H (6-20) mg/dL Creatinine 1.3 H (0.6-1.2) mg/dL Estimated GFR (MDRD) 57 L (>89) Glucose 107 H (70-100) mg/dL Calcium 8.5 (8.5-10.3) mg/dL Magnesium 2.0 (1.7-2.8) mg/dL Total Bilirubin 1.6 H (0.2-1.0) mg/dL AST 48 H (10-42) IU/L ALT 86 H (10-60) IU/L Alkaline Phosphatase 139 H (42-121) IU/L B-Natriuretic Peptide (5-100) pg/mL Total Protein 5.8 L (6.7-8.2) g/dL Albumin 3.5 (3.2-5.5) g/dL Globulin 2.3 (2.1-4.2) g/dL Albumin/Globulin Ratio 1.5 (1.0-2.2) Hepatitis A IgM Ab NON-REACTIVE (NON-REACTIVE) Hep Bs Antigen NON-REACTIVE (NON-REACTIVE) Hep B Core IgM Ab NON-REACTIVE (NON-REACTIVE) Hepatitis C Antibody REACTIVE A (NON-REACTIVE) Hep C Ab Signal/Cutoff 10.00 H (<1.00) ABX Reporting Has patient been on IV antibiotics over the past 48 hours?: No Assessment/Plan - Problem List (1) Acute combined systolic and diastolic CHF, NYHA class 3 Impression: The patient's BNP on admission was elevated at 4683, and remains elevated at 7399. This abnormality is influenced by his kidney function, so it is somewhat expected with the IV lasix that he has been given during this stay. Clinically, the patient appears improved as his BLE edema is reduced, but remains with abdominal edema and crackles in his lungs with oxygen requirements. He states that his cough is improved from yesterday after adding scheduled nebs. He continues on BID IV lasix at 40mg. He continues on amioderone and metoprolol. Plan: Continue to monitor fluid status, monitor urine out put, and daily weig hts. (2) ESTEVAN (acute kidney injury) Impression: The patient has had a steady decline in his kidney function and upon admission was found to have an elevated creatinine of 1.4, that was improved at 1.2 and is now 1.3. The GFR was reduced at 52 upon admission, improved to 63, and is now 57. He continues on IV lasix with BID dosing, and his leg edema is much improved. Urine output has been charted today at 450ml. Plan: Continue daily labs, weights, and strict I/Os. (3) Atrial fibrillation with RVR Impression: The patient has been in this rhythm for at least the past 2 admissions. His rates reach 120-150's at times. He recently had a cardiology consult with Dr. Pickett in [place] who plans to do a cardioversion after the patient is anticoagulated for a while. The patient denies palpitations, chest pain or ti ghtness, or profound dizziness. He remains on telemetry and is tachycardic with heart rates in the 100's. Plan: Continue rate control meds and monitor on telemetry. (4) Do not resuscitate Impression: The patient states that his admitting MD talked with him about end of life plans and he believes that he may only have 3-5 years left to live. The patient more likely has less than one year to live based on his multi-organ dysfunction and his extremely poor heart function. Plan: Continue DNR code status, and have ongoing conversations, consider palliative care consult. (5) Homelessness Impression: The patient frequently reminds the medical team of this fact and has been set up with community resources when he is not in the hospital. He states that he has been homeless for at least the past year due to rent amounts going too high. Plan: Continue to treat this acute illness, and social work support for upcoming discharge. (6) Elevated LFTs Impression: The patient had very elevated LFTs with an AST/ALT of 128/181, that have improved to 48/86 today. This abnormality was likely a result of CHF congestion. The patient also has an elevated bili of 1.9, up from 1.3, but does not appear jaundice. I have ordered an abdominal US, and he is found to be Hep C+. Plan: Continue to monitor, await abdominal US, and avoid liver toxic meds. (7) Hyponatremia Impression: The patient was found to have a low sodium level of 127, that is now worse at 124. This is likely a consequence of his fluid imbalance. The patient is not thought to have altered mental status as compared to previous admissions. Plan: Continue to monitor daily labs. (8) Chronic anticoagulation Impression: The patient is on Warfarin at 5mg PO daily. Today his INR is 2.5, which is within the range of therapy needed. The patient believes if he stays on anticoagulation, he will get a cardioversion for his atrial fibrillation as per Dr. Pickett who has recently had a clinic visit with him. Plan: Continue daily INRs, daily Coumadin. (9) Hepatitis C Impression: Blood testing including Hep C antibody and AB signal cutoff, show +disease. The patient had very elevated LFTs upon admission, which are gradually improved each day. It is recommended that if someone tests positive for Hep C, they should also undergo testing for HIV. The patient was surprised to hear that he is Hep C positive and states that he has never injected drugs and has not had a sexual partner in several years. I will recommend that the patient be referred for further hepatology testing via PCP. I have ordered an abdominal US. Plan: Provide education, await abdominal US results, and monitor LFTs. Qualifiers: Viral hepatitis chronicity: chronic
[2017-11-07] MEDS: WARFARIN 5 MG TABLET PO SCH (14:34)
[2017-11-08] MEDS: SODIUM CHLORIDE FLUSH 0.9% 10 ML SYRINGE IVP SCH ×3 (01:01→16:23)
[2017-11-08] MEDS: SODIUM CHLORIDE FLUSH 0.9% 10 ML SYRINGE IVP PRN (06:39)
[2017-11-08] MEDS: FUROSEMIDE 40 MG/4 ML VIAL IVP SCH ×2 (06:39→14:07)
[2017-11-08 06:44] LABS: INR 2.4 (0.8-1.2); PT - PROTHROMBIN TIME 26.7 secs (9.9-12.6)
[2017-11-08 06:45] LABS: BASOPHILS % (AUTO) 0.5 %; EOSINOPHILS % (AUTO) 0.5 %; LYMPHOCYTES # (AUTO) 1.1 10^3/uL (1.5-3.5); LYMPHOCYTES % (AUTO) 13.8 %; MEAN CORPUSCULAR HEMOGLOBIN 34.5 pg (27.0-31.0); MEAN CORPUSCULAR HGB CONC 34.2 g/dL (32.0-36.0); MEAN PLATELET VOLUME 10.1 fL (7.4-11.4); MONOCYTES # (AUTO) 0.8 10^3/uL (0.0-1.0); MONOCYTES % (AUTO) 10.4 %; NEUTROPHILS # (AUTO) 5.9 10^3/uL (1.5-6.6); NEUTROPHILS % (AUTO) 74.8 %; PLT - PLATELET COUNT 169 10^3/uL (130-450); RED BLOOD COUNT 4.64 10^6/uL (4.70-6.10); RED CELL DISTRIBUTION WIDTH 14.4 % (12.0-15.0); WHITE BLOOD COUNT 7.9 x10^3/uL (4.8-10.8)
[2017-11-08 06:58] LABS: ALBUMIN 3.4 g/dL (3.2-5.5); ALBUMIN/GLOBULIN RATIO 1.4 (1.0-2.2); BILIRUBIN,TOTAL 1.5 mg/dL (0.2-1.0); CALCIUM 8.6 mg/dL (8.5-10.3); CREATININE 1.2 mg/dL (0.6-1.2); TOTAL PROTEIN 5.9 g/dL (6.7-8.2)
--- NOTE | 2017-11-08 07:40 | PROVIDER PROGRESS NOTE ---
Subjective - Prog Note Date Prog Note Date: 11/08/17 Prog Note Time: 07:39 - Subjective Pt reports feeling: No change Subjective: João complains of very poor energy today, continues to have increased shortness of breath, and now has mid abdominal pain. He denies chest pain, rashes, syncope, or a new productive cough. Current Medications - Current Medications Current Medications: Active Medications Amiodarone HCl (Pacerone) 200 mg PO DAILY [facility] Last Admin: 11/08/17 09:42 Dose: 200 mg Aspirin (Ecotrin) 81 mg PO DAILY [facility] Last Admin: 11/08/17 09:42 Dose: 81 mg Citalopram Hydrobromide (Celexa) 40 mg PO DAILY [facility] Last Admin: 11/08/17 09:42 Dose: 40 mg Furosemide (Lasix) 40 mg PO DAILY [facility] Piperacillin Sod/Tazobactam (Sod 4.5 gm/ Sodium Chloride) 100 mls @ 200 mls/hr IV Q6H [facility] Last Admin: 11/08/17 17:35 Dose: 200 mls/hr Levalbuterol HCl (Xopenex) 1.25 mg INH RTQ4H PRN PRN Reason: Wheezing Levalbuterol HCl (Xopenex) 1.25 mg INH RTTID [facility] Last Admin: 11/08/17 14:30 Dose: 1.25 mg Lisinopril (Zestril) 1.25 mg PO DAILY [facility] Lorazepam (Ativan) 0.5 mg PO Q6H PRN PRN Reason: Anxiety Metoprolol Succinate (Toprol Xl) 50 mg PO BID [facility] Last Admin: 11/08/17 09:42 Dose: 50 mg Midodrine () 2.5 mg PO TIDWM [facility] Last Admin: 11/08/17 16:23 Dose: 2.5 mg Morphine Sulfate (Morphine (Carpuject)) 2 mg IVP Q2HR PRN PRN Reason: PAIN Multi-Ingredient Mouthwash/Gargle () 30 ml PO Q6H PRN PRN Reason: Heartburn Multivitamins (Theragran) 1 tab PO DAILY [facility] Last Admin: 11/08/17 09:42 Dose: 1 tab Ondansetron HCl (Zofran Inj) 4 mg IVP Q6HR PRN PRN Reason: Nausea / Vomiting Ondansetron HCl (Zofran Odt) 4 mg TL Q6HR PRN PRN Reason: Nausea / Vomiting Oxycodone HCl (Roxicodone) 5 mg PO Q4HR PRN PRN Reason: Pain 5 to 7 Polyethylene Glycol (Miralax) 17 gm PO DAILY [facility] Last Admin: 11/08/17 07:43 Dose: Not Given Pred[facility] ([facility]eltasone) [facility] [place]odium Chloride (Normal Saline Flush 0.9%) 10 ml IVP PRN PRN PRN Reason: NEEDED PER PROVIDER ORDERS Last Admin: 11/08/17 06:39 Dose: 10 ml Sodium Chloride (Normal Saline Flush 0.9%) 10 ml IVP 0100,0900,1700 [facility] Last Admin: 11/08/17 16:23 Dose: 10 ml Spironolactone (Aldactone) 50 mg PO DAILY [facility] Last Admin: 11/08/17 08:18 Dose: Not Given Warfarin Sodium (Coumadin) 5 mg PO QDWARFARIN [facility] Last Admin: 11/08/17 14:12 Dose: 5 mg Warfarin [Coumadin] 5 mg PO DAILY 10/04/17 Amiodarone HCl 200 mg PO DAILY 11/05/17 Multivitamin [Theragran] 1 tab PO DAILY 11/05/17 Objective - Vital Signs/Intake & Output Reviewed Vital Signs: Yes Vital Signs: Vital Signs x48h Temp Pulse Pulse Resp BP BP Pulse Ox 11/08/17 06:28 60 92/70 11/08/17 05:34 92 84/46 L 11/08/17 00:00 36.3 C L 100 16 101/65 97 Intake & Output: Intake & Output 11/05/17 11/06/17 11/07/17 11/08/17 23:59 23:59 23:59 23:59 Intake Total 530 1230 520 150 Output Total 1450 1065 670 150 Balance -920 165 -150 0 - Objective General Appearance: positive: Alert, Moderate distress Eyes Bilateral: positive: PERRL Eyes: OU Conjunctivae pale, OU Scleral icterus ENT: positive: Pharyngeal erythema, Dry mucous membranes Neck: positive: No JVD, Stiff neck Respiratory: positive: Other (coarse crackles throughout, bilaterally) Cardiovascular: positive: Irregularly irregular, Tachycardia, Systolic murmur, Diastolic murmur Peripheral Pulses: 1+ Radial (R), 1+ Radial (L) Abdomen: positive: Nml bowel sounds, Tenderness, Hepatomegaly, Other (rounded, increased abdominal girth) Back: positive: Nml inspection Skin: positive: No rash, Warm, Dry, Pallor, Other (darkened skin tone.) Extremities: positive: Non-tender, Pedal edema, Joint swelling Neurologic/Psychiatric: positive: Oriented x3, CN's nml (2-12), Weakness, Sensory loss, Depressed mood/affect Reflexes: Bicep (R): 2+, Bicep (L): 2+ - Lab Results Fish Bones: 11/08/17 06:15 11/08/17 06:15 Other Labs: Lab Results x24hrs 11/08/17 11/08/17 11/08/17 Range/Units 06:15 06:15 06:15 WBC 7.9 (4.8-10.8) x10^3/uL RBC 4.64 L (4.70-6.10) 10^6/uL Hgb 16.0 (14.0-18.0) g/dL Hct 46.8 (42.0-52.0) % MCV 101.0 H (80.0-94.0) fL MCH 34.5 H (27.0-31.0) pg MCHC 34.2 (32.0-36.0) g/dL RDW 14.4 (12.0-15.0) % Plt Count 169 (130-450) 10^3/uL MPV 10.1 (7.4-11.4) fL Neut # (Auto) 5.9 (1.5-6.6) 10^3/uL Lymph # (Auto) 1.1 L (1.5-3.5) 10^3/uL Mills # (Auto) 0.8 (0.0-1.0) 10^3/uL Eos # (Auto) 0.0 (0.0-0.7) 10^3/uL Baso # (Auto) 0.0 (0.0-0.1) 10^3/uL Absolute Nucleated RBC 0.02 x10^3/uL Nucleated RBC % 0.2 /100WBC PT 26.7 H (9.9-12.6) secs INR 2.4 H (0.8-1.2) Sodium (135-145) mmol/L Potassium (3.5-5.0) mmol/L Chloride (101-111) mmol/L Carbon Dioxide (21-32) mmol/L Anion Gap (6-13) BUN (6-20) mg/dL Creatinine (0.6-1.2) mg/dL Estimated GFR (MDRD) (>89) Glucose (70-100) mg/dL Calcium (8.5-10.3) mg/dL Magnesium (1.7-2.8) mg/dL Total Bilirubin (0.2-1.0) mg/dL AST (10-42) IU/L ALT (10-60) IU/L Alkaline Phosphatase (42-121) IU/L B-Natriuretic Peptide 6998.00 H (5-100) pg/mL Total Protein (6.7-8.2) g/dL Albumin (3.2-5.5) g/dL Globulin (2.1-4.2) g/dL Albumin/Globulin Ratio (1.0-2.2) 11/08/17 Range/Units 06:15 WBC (4.8-10.8) x10^3/uL RBC (4.70-6.10) 10^6/uL Hgb (14.0-18.0) g/dL Hct (42.0-52.0) % MCV (80.0-94.0) fL MCH (27.0-31.0) pg MCHC (32.0-36.0) g/dL RDW (12.0-15.0) % Plt Count (130-450) 10^3/uL MPV (7.4-11.4) fL Neut # (Auto) (1.5-6.6) 10^3/uL Lymph # (Auto) (1.5-3.5) 10^3/uL Mills # (Auto) (0.0-1.0) 10^3/uL Eos # (Auto) (0.0-0.7) 10^3/uL Baso # (Auto) (0.0-0.1) 10^3/uL Absolute Nucleated RBC x10^3/uL Nucleated RBC % /100WBC PT (9.9-12.6) secs INR (0.8-1.2) Sodium 126 L (135-145) mmol/L Potassium 4.1 (3.5-5.0) mmol/L Chloride 92 L (101-111) mmol/L Carbon Dioxide 22 (21-32) mmol/L Anion Gap 12.0 (6-13) BUN 39 H (6-20) mg/dL Creatinine 1.2 (0.6-1.2) mg/dL Estimated GFR (MDRD) 63 L (>89) Glucose 105 H (70-100) mg/dL Calcium 8.6 (8.5-10.3) mg/dL Magnesium 2.0 (1.7-2.8) mg/dL Total Bilirubin 1.5 H (0.2-1.0) mg/dL AST 37 (10-42) IU/L ALT 72 H (10-60) IU/L Alkaline Phosphatase 135 H (42-121) IU/L B-Natriuretic Peptide (5-100) pg/mL Total Protein 5.9 L (6.7-8.2) g/dL Albumin 3.4 (3.2-5.5) g/dL Globulin 2.5 (2.1-4.2) g/dL Albumin/Globulin Ratio 1.4 (1.0-2.2) - Diagnostic Imaging Diagnostic Imaging Results: positive: Final report reviewed Diagnostic Imaging Comments: EXAM: CHEST RADIOGRAPHY EXAM DATE: 11/08/2017 03:56 PM. IMPRESSION: 1. Unchanged cardiomegaly. 2. Interval slightly increased size of small right pleural effusion with increased adjacent right basilar airspace opacity representing worsening infection and/or atelectasis. ABX Reporting Has patient been on IV antibiotics over the past 48 hours?: Yes Assessment/Plan - Problem List (1) Right lower lobe pneumonia Impression: The patient began at least 24 hours ago with a cough, increased breathing efforts, and overall fatigue. Today on exam, the patient complained of slight nausea and dizziness. He continues to have coarse crackles that are not clearing with incentive spirometer or new xopenex nebs, despite being on BID IV lasix. Imaging was ordered and confirms a new right low lobe pneumonia with pleural effusions. He has been afebrile, but certainly is feeling worse dary red to 24 hours ago. Plan: Continue respiratory care, start Zosyn IV, and monitor for improvement. (2) Hypotension Impression: The patient is now symptomatic with his hypotension and has a baseline systolic blood pressure in the 90's. After a further review of his chart and medications, we will add Midodrine 2.5mg TID with meals to help with this. I anne ve ordered a chest x-ray to rule out infection and his IV furosemide has been changed to oral starting in the AM and no further doses today. Plan: Continue to monitor vital signs and await chest x-ray. Qualifiers: Hypotension type: other hypotension type Qualified Code(s): I95.89 - Other hypotension (3) Acute combined systolic and diastolic CHF, NYHA class 3 Impression: The patient's BNP on admission was elevated at 4683, and remains elevated at 6998. This abnormality is influenced by his kidney function, so it is somewhat expected with the IV lasix that he has been given during this stay. Clinically, the patient appears improved as his BLE edema is reduced, but remains with abdominal edema and crackles in his lungs with oxygen requirements. Today, his abdominal edema is slightly worse. He is more hypoxic, has increased breathing efforts, mildly nauseated and has increased fatigue. He continues on BID IV lasix at 40mg. He continues on amioderone and metoprolol, which was increased from 25 to 50mg. Plan: Continue to monitor fluid status, monitor urine out put, and daily devon ghts. Await chest x-ray results. (4) ESTEVAN (acute kidney injury) Impression: The patient has had a steady decline in his kidney function and upon admission was found to have an elevated creatinine of 1.4, that was improved at 1.2. The GFR was reduced at 52 upon admission, improved to 63. He continues on IV lasix with BID dosing, and his leg edema is much improved. Urine output has been charted today at 350ml since midnight. Plan: Continue daily labs, weights, and strict I/Os. (5) Atrial fibrillation with RVR Impression: The patient has been in this rhythm for at least the past 2 admissions. His rates reach 120-150's at times. He recently had a cardiology consult with Dr. Pickett in [place] who plans to do a cardioversion after the patient is anticoagulated for a while. The patient denies palpitations, chest pain or tightness. He remains on telemetry and is tachycardic with heart rates in the 90's. His metoprolol dose was increased from 20 to 50mg, and now the patient has symptomatic hypotension. Plan: Continue rate control meds and monitor on telemetry. (6) Do not resuscitate Impression: The patient states that his admitting MD talked with him about end of life plans and he believes that he may only have 3-5 years left to live. The patient more likely has less than one year to live based on his multi-organ dysfunction and his extremely poor heart function. Plan: Continue DNR code status, and have ongoing conversations, consider palliative care consult. (7) Homelessness Impression: The patient frequently reminds the medical team of this fact and has been set up with community resources when he is not in the hospital. He states that he has been homeless for at least the past year due to rent amounts going too high. Plan: Continue to treat this acute illness, and social work support for upcoming discharge. (8) Elevated LFTs Impression: The patient had very elevated LFTs with an AST/ALT of 128/181, that have improved to 37/72, a bili of 1.5 today. This abnormality was likely a result of CHF congestion. The patient does not appear jaundice. An abdominal US was ordered yesterday and shows moderate ascities, hepatomegaly with mildly contour and imhomogeneous echotexture, without any focal liver lesions. Plan: Continue to monitor, and avoid liver toxic meds. HIV test is pending. (9) Hyponatremia Impression: The patient was found to have a low sodium level of 127, that is now worse at 126. This is likely a consequence of his fluid imbalance. The patient is not thought to have altered mental status as compared to previous admissions. He continues on his IV lasix BID. Plan: Continue to monitor daily labs. (10) Chronic anticoagulation Impression: The patient is on Warfarin at 5mg PO daily. Today his INR is 2.4, which is within the range of therapy needed. The patient believes if he stays on anticoagulation, he will get a cardioversion for his atrial fibrillation as per Dr. Pickett who has recently had a clinic visit with him. Plan: Continue daily INRs, daily Coumadin. (11) Hepatitis C Impression: Blood testing including Hep C antibody and AB signal cutoff, show +disease. The patient had very elevated LFTs upon admission, which are gradually improved each day. It is recommended that if someone tests positive for Hep C, they should also undergo testing for HIV. The patient was surprised to hear that he is Hep C positive and states that he has never injected drugs and has not had a sexual partner in several years. I will recommend that the patient be referred for further hepatology testing via PCP. Plan: Provide education, await HIV lab in the morning, and monitor LFTs. Qualifiers: Viral hepatitis chronicity: chronic
[2017-11-08] MEDS: POLYETHYLENE GLYCOL 3350 17 GM PACKET PO SCH (07:43)
[2017-11-08] MEDS: SPIRONOLACTONE 25 MG TABLET PO SCH (08:18)
--- NOTE | 2017-11-08 08:25 | Ultrasound Report ---
Reason: elevated LFTs, Hep C Procedure Date: 11/08/2017 Accession Number: [id number] / [id number] Procedure: US - Abdomen Complete CPT Code: FULL RESULT: EXAM: ABDOMEN ULTRASOUND EXAM DATE: 11/08/2017 08:14 AM. CLINICAL HISTORY: Elevated LFTs, Hep C. COMPARISON: Abdominal ultrasound 06/07/2013. TECHNIQUE: Real-time scanning was performed with static images obtained. FINDINGS: Liver: Mildly inhomogeneous, increased echogenicity with mildly nodular contour.No focal lesion. Liver measures 18.2 cm craniocaudally. Main portal vein flow: Hepatopetal. Gallbladder: Gallbladder wall thickness is normal.There is a 2 mm mobile gallstone.Sonographic Shah sign is absent, per technologist's notes. Biliary System: Common bile duct measures 3.9 mm. No intrahepatic ductal dilatation. Pancreas: Visualized portion is unremarkable. Kidneys: Right: 9.6 cm longitudinally. Mildly echogenic.No hydronephrosis.No contour-deforming mass.No calculus. Left: 9.5 cm longitudinally. Mildly echogenic.No hydronephrosis.No contour-deforming mass.No calculus. Small renal cortical cyst. Spleen: 7.8 cm. No focal lesion. Aorta and Inferior Vena Cava: Unremarkable. Moderate ascites. Bilateral pleural effusions. IMPRESSION: 1. Hepatomegaly with mildly nodular contour and inhomogeneous echotexture. No focal liver lesion. 2. Moderate ascites. Bilateral pleural effusions. 3. Echogenic kidneys may reflect medical renal disease. 4. Cholelithiasis. RADIA
[2017-11-08] MEDS: LEVALBUTEROL 1.25 MG/3 ML NEB INH SCH ×3 (08:29→20:05)
[2017-11-08] MEDS ORDERED: FUROSEMIDE 40 MG/4 ML VIAL IVP SCH (09:00)
[2017-11-08] MEDS ORDERED: AMIODARONE 200 MG TABLET PO SCH (09:00)
[2017-11-08] MEDS ORDERED: LISINOPRIL 5 MG TABLET PO SCH (09:00)
[2017-11-08] MEDS: METOPROLOL SUCCINATE 25 MG TABLET PO SCH ×2 (09:42→21:37)
[2017-11-08] MEDS: MULTIVITAMIN TABLET PO SCH (09:42)
[2017-11-08] MEDS: CITALOPRAM 10 MG TABLET PO SCH (09:42)
[2017-11-08] MEDS: ASPIRIN EC 81 MG TABLET PO SCH (09:42)
[2017-11-08] MEDS: WARFARIN 5 MG TABLET PO SCH (14:12)
--- NOTE | 2017-11-08 16:16 | XRAY Report ---
Reason: shortness of breath, hypoxia Procedure Date: 11/08/2017 Accession Number: [id number] / [id number] Procedure: XR - Chest 1 View X-Ray CPT Code: 88972 FULL RESULT: EXAM: CHEST RADIOGRAPHY EXAM DATE: 11/08/2017 03:56 PM. CLINICAL HISTORY: Shortness of breath. Hypoxia. COMPARISON: CHEST 2 VIEW 11/05/2017 2:44 AM. TECHNIQUE: 1 view. FINDINGS: Lungs/Pleura: Interval slightly increased size of small right pleural effusion with increased adjacent right basilar airspace opacity. Mediastinum: Unchanged cardiomegaly. Other: None. IMPRESSION: 1. Unchanged cardiomegaly. 2. Interval slightly increased size of small right pleural effusion with increased adjacent right basilar airspace opacity representing worsening infection and/or atelectasis. RADIA
[2017-11-08] MEDS: MIDODRINE 2.5 MG TABLET PO SCH (16:23)
[2017-11-08] MEDS: PIPERACILLIN/TAZOBACTAM 4.5 GM in SODIUM CHLORIDE 0.9% MINIBAG 100 ML IV SCH ×2 (17:35→23:04)
[2017-11-08] MEDS: predniSONE 20 MG TABLET PO SCH (18:08)
[2017-11-09] MEDS: SODIUM CHLORIDE FLUSH 0.9% 10 ML SYRINGE IVP SCH ×3 (01:57→16:56)
[2017-11-09] MEDS: PIPERACILLIN/TAZOBACTAM 4.5 GM in SODIUM CHLORIDE 0.9% MINIBAG 100 ML IV SCH ×2 (05:47→11:26)
[2017-11-09] MEDS: SODIUM CHLORIDE FLUSH 0.9% 10 ML SYRINGE IVP PRN ×3 (05:51→13:12)
[2017-11-09 06:09] LABS: BASOPHILS % (AUTO) 0.5 %; HGB - HEMOGLOBIN 16.8 g/dL (14.0-18.0); LYMPHOCYTES # (AUTO) 0.8 10^3/uL (1.5-3.5); LYMPHOCYTES % (AUTO) 10.4 %; MEAN CORPUSCULAR HEMOGLOBIN 34.9 pg (27.0-31.0); MEAN CORPUSCULAR HGB CONC 34.3 g/dL (32.0-36.0); MEAN CORPUSCULAR VOLUME 101.8 fL (80.0-94.0); MEAN PLATELET VOLUME 10.1 fL (7.4-11.4); MONOCYTES # (AUTO) 0.4 10^3/uL (0.0-1.0); MONOCYTES % (AUTO) 5.2 %; NEUTROPHILS # (AUTO) 6.8 10^3/uL (1.5-6.6); NEUTROPHILS % (AUTO) 83.9 %; PLT - PLATELET COUNT 183 10^3/uL (130-450); RED CELL DISTRIBUTION WIDTH 14.2 % (12.0-15.0); WHITE BLOOD COUNT 8.1 x10^3/uL (4.8-10.8)
[2017-11-09 06:13] LABS: INR 3.3 (0.8-1.2); PT - PROTHROMBIN TIME 35.5 secs (9.9-12.6)
[2017-11-09 06:18] LABS: ALBUMIN 3.6 g/dL (3.2-5.5); ALBUMIN/GLOBULIN RATIO 1.4 (1.0-2.2); BILIRUBIN,TOTAL 1.8 mg/dL (0.2-1.0); CALCIUM 8.8 mg/dL (8.5-10.3); CREATININE 1.4 mg/dL (0.6-1.2); TOTAL PROTEIN 6.2 g/dL (6.7-8.2)
[2017-11-09] MEDS: LEVALBUTEROL 1.25 MG/3 ML NEB INH SCH ×3 (07:30→19:53)
[2017-11-09] MEDS: METOPROLOL SUCCINATE 25 MG TABLET PO SCH ×2 (08:54→22:48)
[2017-11-09] MEDS: FUROSEMIDE 40 MG/4 ML VIAL IVP SCH ×2 (08:54→13:55)
[2017-11-09] MEDS: predniSONE 20 MG TABLET PO SCH (08:55)
[2017-11-09] MEDS: LISINOPRIL 5 MG TABLET PO SCH (08:55)
[2017-11-09] MEDS: MULTIVITAMIN TABLET PO SCH (08:55)
[2017-11-09] MEDS: CITALOPRAM 10 MG TABLET PO SCH (08:55)
[2017-11-09] MEDS: POLYETHYLENE GLYCOL 3350 17 GM PACKET PO SCH (08:56)
[2017-11-09] MEDS: SPIRONOLACTONE 25 MG TABLET PO SCH (08:56)
[2017-11-09] MEDS: MIDODRINE 2.5 MG TABLET PO SCH ×3 (08:57→16:56)
[2017-11-09] MEDS ORDERED: FUROSEMIDE 40 MG TABLET PO SCH (09:00)
[2017-11-09] MEDS: ASPIRIN EC 81 MG TABLET PO SCH (09:02)
--- NOTE | 2017-11-09 11:05 | ADVANCE CARE PLANNING NOTE ---
Advance Care Planning - Date/Time Date: 11/09/17 Time: 11:04 - Purpose of encounter Text: Life expectancy being 6 months to 1 year at the most. - Parties in attendance Parties in attendance: João Berry, and myself, MARIA ELENA Bella - Decisional capacity Decisional capacity of: Fully capable of making own choices. - Subjective/Patient's story Subjective/Patient's story: The patient was surprised to hear that his life expectancy is now less than first predicted. He states that he does not have a as his girlfriend of 12 years a few years ago from alcoholism. He states that he has never had any children. He was very close to his mother, [place] Her 1/2 brother, Esteban Finch who lives in [facility] took over her estate and the patient states that he just "got shut out". His last wish is to make contact with his uncle, Esteban as this would be his only living relative remaining. He states that at the end of his life he just wants to be alone and "smoke pot". He believes that he has a plot already at [facility]. He understands that he has liver disease, but his advanced heart disease will be his demise. He wants to attend an upcoming cardiology appointment with Dr. Pickett in [facility] the cardioversion will work, despite my efforts of explaining how diseased his heart really is. - Objective/Medical story Objective/Medical Story: The patient has an EF of less than 20%, which will be the reason that he will in the next 6 months to 1 year. He has decreased liver function and was found to be hepatitis C positive, which is new for him. He has little success with maintaining his fluid levels due to multi-organ system failure. He has a recurrent pneumonia, and his activity tolerance is very poor. He has chronic kidney disease as a consequence of his life long alcoholism and advanced heart failure. He is currently dependent on oxygen, which is a new problem on this admission. His heart rates have been very difficult to manage because of his blood pressure being low, so we are trying to maintain a higher pressure using a new medication, Midodrine, to achieve better heart rate control. He has social difficulties with being homeless, making these illnesses nearly impossible to manage, thus leading to repeat hospital/ED stays. He was agreeable to being a DNR on this stay, and is willing to have a Palliative care consult. - Goals of Care Goals of care determinations: Keep heart rates low with the right combination of medications. Maintain fluid balance using diuretics to prevent BLE gross edema. Treat acute pneumonia. Obtain home oxygen. Control ongoing abdominal discomfort/pain. Find a place to live so that these medical treatments are possible. Palliative care. - Plan Plan: Treat this PNA Continue to monitor labs, I/O's, and medications Palliative care consult Placement - Code Status Code Status: Do Not Attempt Resuscitation - Time Spent on Advance Care Planning Time spent on advance care plannin
--- NOTE | 2017-11-09 11:05 | PROVIDER PROGRESS NOTE ---
Subjective - Prog Note Date Prog Note Date: 11/09/17 Prog Note Time: 11:05 - Subjective Pt reports feeling: No change Subjective: João continues to complain of very low tolerance of any activity and has mid abdominal fullness and pain. He complains of a poor appetite, poor sleep. He denies any new chest pain, fevers, chills, vomiting, rashes, or an increased cough. Current Medications - Current Medications Current Medications: Active Medications Aspirin (Ecotrin) 81 mg PO DAILY [facility] Last Admin: 11/09/17 09:02 Dose: 81 mg Citalopram Hydrobromide (Celexa) 40 mg PO DAILY [facility] Last Admin: 11/09/17 08:55 Dose: 40 mg Furosemide (Lasix Inj 40 Mg Vial) 40 mg IVP BIDDIURETIC [facility] Last Admin: 11/09/17 13:55 Dose: 40 mg Ceftriaxone Sodium 2 gm/ (Sodium Chloride) 100 mls @ 200 mls/hr IV Q24H [facility] Last Admin: 11/09/17 13:11 Dose: 200 mls/hr Levalbuterol HCl (Xopenex) 1.25 mg INH RTQ4H PRN PRN Reason: Wheezing Levalbuterol HCl (Xopenex) 1.25 mg INH RTTID [facility] Last Admin: 11/09/17 13:05 Dose: 1.25 mg Lisinopril (Zestril) 1.25 mg PO DAILY [facility] Last Admin: 11/09/17 08:55 Dose: 1.25 mg Lorazepam (Ativan) 1 mg PO Q4H PRN PRN Reason: Anxiety Metoprolol Succinate (Toprol Xl) 50 mg PO BID [facility] Last Admin: 11/09/17 08:54 Dose: Not Given Midodrine () 2.5 mg PO TIDWM [facility] Last Admin: 11/09/17 11:37 Dose: 2.5 mg Morphine Sulfate (Morphine (Carpuject)) 2 mg IVP Q2HR PRN PRN Reason: PAIN Morphine Sulfate (Roxanol) 10 mg PO Q2HR PRN PRN Reason: PAIN Last Admin: 11/09/17 11:45 Dose: 10 mg Multi-Ingredient Mouthwash/Gargle () 30 ml PO Q6H PRN PRN Reason: Heartburn Multivitamins (Theragran) 1 tab PO DAILY [facility] Last Admin: 11/09/17 08:55 Dose: 1 tab Ondansetron HCl (Zofran Inj) 4 mg IVP Q6HR PRN PRN Reason: Nausea / Vomiting Ondansetron HCl (Zofran Odt) 4 mg TL Q6HR PRN PRN Reason: Nausea / Vomiting Oxycodone HCl (Roxicodone) 5 mg PO Q4HR PRN PRN Reason: Pain 5 to 7 Polyethylene Glycol (Miralax) 17 gm PO DAILY [facility] Last Admin: 11/09/17 08:56 Dose: Not Given Prednisone (Deltasone) 20 mg PO DAILYWM [facility] Last Admin: 11/09/17 08:55 Dose: 20 mg Sodium Chloride (Normal Saline Flush 0.9%) 10 ml IVP PRN PRN PRN Reason: NEEDED PER PROVIDER ORDERS Last Admin: 11/09/17 13:12 Dose: 10 ml Sodium Chloride (Normal Saline Flush 0.9%) 10 ml IVP 0100,0900,1700 [facility] Last Admin: 11/09/17 08:56 Dose: 10 ml Spironolactone (Aldactone) 50 mg PO DAILY [facility] Last Admin: 11/09/17 08:56 Dose: 50 mg Warfarin [Coumadin] 5 mg PO DAILY 10/04/17 Amiodarone HCl 200 mg PO DAILY 11/05/17 Multivitamin [Theragran] 1 tab PO DAILY 11/05/17 Objective - Vital Signs/Intake & Output Reviewed Vital Signs: Yes Vital Signs: Vital Signs x48h Temp Pulse Pulse Resp BP Pulse Ox 11/09/17 08:50 109 H 93/68 11/09/17 07:34 36.5 C 52 L 18 92/71 100 11/09/17 05:00 36.1 C L 94 16 97/77 97 Intake & Output: Intake & Output 11/06/17 11/07/17 11/08/17 11/09/17 23:59 23:59 23:59 23:59 Intake Total 1230 520 970 100 Output Total 1065 670 550 Balance 165 -150 420 100 - Objective General Appearance: positive: Alert, Moderate distress, Anxious Eyes Bilateral: positive: PERRL Eyes: OU Conjunctivae pale, OU Scleral icterus ENT: positive: Pharyngeal erythema, Dry mucous membranes Neck: positive: Thyroid nml, No JVD, Stiff neck Respiratory: positive: Chest non-tender, No respiratory distress, Rhonchi, Other Cardiovascular: positive: Irregularly irregular, Tachycardia, Systolic murmur, Diastolic murmur, Decreased pulse(s) Peripheral Pulses: 1+ Radial (R), 1+ Radial (L) Abdomen: positive: Tenderness, Guarding, Hepatomegaly, Abnml bowel sounds Back: positive: Nml inspection Skin: positive: No rash, Warm, Dry, Cyanosis, Laceration (cm), Other (bronze appearance to skin, scattered bruises and scabbed areas.) Extremities: positive: Pedal edema, Joint swelling Neurologic/Psychiatric: positive: Oriented x3, CN's nml (2-12), Weakness, Sensory loss, Slurred/abnml speech, Depressed mood/affect Reflexes: Bicep (R): 2+, Bicep (L): 2+ - Lab Results Fish Bones: 11/09/17 05:30 11/09/17 05:30 Other Labs: Lab Results x24hrs 11/09/17 11/09/17 11/09/17 Range/Units 05:30 05:30 05:30 WBC (4.8-10.8) x10^3/uL RBC (4.70-6.10) 10^6/uL Hgb (14.0-18.0) g/dL Hct (42.0-52.0) % MCV (80.0-94.0) fL MCH (27.0-31.0) pg MCHC (32.0-36.0) g/dL RDW (12.0-15.0) % Plt Count (130-450) 10^3/uL MPV (7.4-11.4) fL Neut # (Auto) (1.5-6.6) 10^3/uL Lymph # (Auto) (1.5-3.5) 10^3/uL [place] # (Auto) (0.0-1.0) 10^3/uL Eos # (Auto) (0.0-0.7) 10^3/uL Baso # (Auto) (0.0-0.1) 10^3/uL Absolute Nucleated RBC x10^3/uL Nucleated RBC % /100WBC PT 35.5 H (9.9-12.6) secs INR 3.3 H (0.8-1.2) Sodium 126 L (135-145) mmol/L Potassium 4.6 (3.5-5.0) mmol/L Chloride 91 L (101-111) mmol/L Carbon Dioxide 20 L (21-32) mmol/L Anion Gap 15.0 H (6-13) BUN 42 H (6-20) mg/dL Creatinine 1.4 H (0.6-1.2) mg/dL Estimated GFR (MDRD) 52 L (>89) Glucose 138 H (70-100) mg/dL Calcium 8.8 (8.5-10.3) mg/dL Total Bilirubin 1.8 H (0.2-1.0) mg/dL AST 44 H (10-42) IU/L ALT 72 H (10-60) IU/L Alkaline Phosphatase 159 H (42-121) IU/L B-Natriuretic Peptide 8966.00 H (5-100) pg/mL Total Protein 6.2 L (6.7-8.2) g/dL Albumin 3.6 (3.2-5.5) g/dL Globulin 2.6 (2.1-4.2) g/dL Albumin/Globulin Ratio 1.4 (1.0-2.2) 11/09/17 Range/Units 05:30 WBC 8.1 (4.8-10.8) x10^3/uL RBC 4.80 (4.70-6.10) 10^6/uL Hgb 16.8 (14.0-18.0) g/dL Hct 48.9 (42.0-52.0) % MCV 101.8 H (80.0-94.0) fL MCH 34.9 H (27.0-31.0) pg MCHC 34.3 (32.0-36.0) g/dL RDW 14.2 (12.0-15.0) % Plt Count 183 (130-450) 10^3/uL MPV 10.1 (7.4-11.4) fL Neut # (Auto) 6.8 H (1.5-6.6) 10^3/uL Lymph # (Auto) 0.8 L (1.5-3.5) 10^3/uL [place] # (Auto) 0.4 (0.0-1.0) 10^3/uL Eos # (Auto) 0.0 (0.0-0.7) 10^3/uL Baso # (Auto) 0.0 (0.0-0.1) 10^3/uL Absolute Nucleated RBC 0.00 x10^3/uL Nucleated RBC % 0.0 /100WBC PT (9.9-12.6) secs INR (0.8-1.2) Sodium (135-145) mmol/L Potassium (3.5-5.0) mmol/L Chloride (101-111) mmol/L Carbon Dioxide (21-32) mmol/L Anion Gap (6-13) BUN (6-20) mg/dL Creatinine (0.6-1.2) mg/dL Estimated GFR (MDRD) (>89) Glucose (70-100) mg/dL Calcium (8.5-10.3) mg/dL Total Bilirubin (0.2-1.0) mg/dL AST (10-42) IU/L ALT (10-60) IU/L Alkaline Phosphatase (42-121) IU/L B-Natriuretic Peptide (5-100) pg/mL Total Protein (6.7-8.2) g/dL Albumin (3.2-5.5) g/dL Globulin (2.1-4.2) g/dL Albumin/Globulin Ratio (1.0-2.2) ABX Reporting Has patient been on IV antibiotics over the past 48 hours?: Yes Assessment/Plan - Problem List (1) Right lower lobe pneumonia Impression: The patient began at least 48 hours ago with a cough, increased breathing efforts, and overall fatigue. The patient complained of slight nausea and dizziness. He continues to have coarse crackles that are not clearing with incentive spirometer or new xopenex nebs, despite being on BID IV lasix. Imaging was ordered and confirms a new right low lobe pneumonia with pleural effusions. He has been afebrile, but certainly is feeling worse, which is only slightly improved today. Due to his worsening ESTEVAN, the patient was changed from Zosyn to Rocephin. Plan: Continue respiratory care, start Rocephin IV, and monitor for improvement. (2) Hypotension Impression: The patient is now symptomatic with his hypotension and has a baseline systolic blood pressure in the 90's. After a further review of his chart and medications, we have added Midodrine 2.5mg TID with meals to help with this. Plan: Continue to monitor vital signs and await chest x-ray. Qualifiers: Hypotension type: other hypotension type Qualified Code(s): I95.89 - Other hypotension (3) Acute combined systolic and diastolic CHF, NYHA class 3 Impression: The patient's BNP on admission was elevated at 4683, and remains elevated at ~8966. This abnormality is influenced by his kidney function, so it is somewhat expected with the IV lasix that he has been given during this stay. Clinically, the patient appears improved as his BLE edema is reduced, but remains with abdominal edema and crackles in his lungs with oxygen requirements. His abdominal edema is slightly worse each day. He is more hypoxic, has increased breathing efforts, mildly nauseated and has increased fatigue. He continues on BID IV lasix at 40mg. He continues on metoprolol, which was increased from 25 to 50mg. Amioderone was discontinued as this would be useful to keep him in a sinus rhythm, but not to attempt to convert him out of atrial fibrillation. Plan: Continue to monitor fluid status, monitor urine out put, and daily weights. (4) ESTEVAN (acute kidney injury) Impression: The patient has had a steady decline in his kidney function and upon admission was found to have an elevated creatinine of 1.4, that is worse at 1.4. The GFR was reduced at 52. He continues on IV lasix with BID dosing, and his leg edema is much improved. Urine output has been charted today at 700ml since midnight. Antibiotic choice was changed to avoid further ESTEVAN. Plan: Continue daily labs, weights, and strict I/Os. (5) Atrial fibrillation with RVR Impression: The patient has been in this rhythm for at least the past 2 admissions. His rates reach 120-150's at times. He recently had a cardiology consult with Dr. Pickett in [place] who plans to do a cardioversion after the patient is anticoagulated for a while. The patient denies palpitations, chest pain or tightness. He remains on telemetry and is tachycardic with heart rates in the 90's. His metoprolol dose was increased from 20 to 50mg, and the patient had symptomatic hypotension and was started on Midodrine. Despite my advanced care planning talk with the patient, he still wishes for us to call Dr. Pickett prior to discharge to see about his upcoming cardioversion. Plan: Continue rate control meds. (6) Do not resuscitate Impression: The patient was informed today that he more likely has less than one year to live based on his multi-organ dysfunction and his extremely poor heart function. Plan: Continue DNR code status, and have ongoing conversations, consider palliative care consult. (7) Homelessness Impression: The patient frequently reminds the medical team of this fact and has been set up with community resources when he is not in the hospital. He states that he has been homeless for at least the past year due to rent amounts going too high. Plan: Continue to treat this acute illness, and social work support for upcom ing discharge. (8) Elevated LFTs Impression: The patient had very elevated LFTs with an AST/ALT of 128/181, that have improved. This abnormality was likely a result of his newly diagnosed Hep C. The patient does not appear jaundice, but does have bronze skin tone. An abdominal US was ordered and shows moderate ascities, hepatomegaly with mildly contour and imhomogeneous echotexture, without any focal liver lesions. Plan: Continue to monitor, and avoid liver toxic meds. HIV test is pending. (9) Hyponatremia Impression: The patient was found to have a low sodium level of 127, that remains the same at 126. This is likely a consequence of his fluid imbalance. The patient is not thought to have altered mental status as compared to previous admissions. He continues on his IV lasix BID. Plan: Continue to monitor daily labs. (10) Chronic anticoagulation Impression: The patient is on Warfarin at 5mg PO daily, but was placed on hold today for an INR of 3.3. The patient believes if he stays on anticoagulation, he will get a cardioversion for his atrial fibrillation as per Dr. Pickett who has recently had a clinic visit with him. Plan: Continue daily INRs, and resume daily Coumadin as per daily INR results. (11) Hepatitis C Impression: Blood testing including Hep C antibody and AB signal cutoff, show +disease. The patient had very elevated LFTs upon admission, which are gradually improved each day. It is recommended that if someone tests positive for Hep C, they should also undergo testing for HIV. The patient was surprised to hear that he is Hep C positive and states that he has never injected drugs and has not had a sexual partner in several years. I will recommend that the patient be referred for further hepatology testing via PCP, unless he chooses a path of Palliative/Hospice care. Plan: Provide education, await HIV lab, and monitor LFTs. Qualifiers: Viral hepatitis chronicity: chronic
[2017-11-09] MEDS: MORPHINE SOL 10 MG/0.5 ML SYRINGE PO PRN (11:45)
[2017-11-09] MEDS ORDERED: LORazepam 0.5 MG TABLET PO PRN (12:18)
[2017-11-09] MEDS ORDERED: cefTRIAXone 2 GM VIAL IVP SCH (13:00)
[2017-11-09] MEDS: cefTRIAXone 2 GM in SODIUM CHLORIDE 0.9% MINIBAG 100 ML IV SCH (13:11)
[2017-11-10] MEDS: SODIUM CHLORIDE FLUSH 0.9% 10 ML SYRINGE IVP SCH ×3 (01:31→16:34)
[2017-11-10] MEDS: SODIUM CHLORIDE FLUSH 0.9% 10 ML SYRINGE IVP PRN ×3 (05:31→13:04)
[2017-11-10] MEDS: FUROSEMIDE 40 MG/4 ML VIAL IVP SCH ×2 (05:31→13:04)
[2017-11-10 06:58] LABS: ALBUMIN 3.6 g/dL (3.2-5.5); ALBUMIN/GLOBULIN RATIO 1.3 (1.0-2.2); BILIRUBIN,TOTAL 1.7 mg/dL (0.2-1.0); CREATININE 1.6 mg/dL (0.6-1.2); TOTAL PROTEIN 6.3 g/dL (6.7-8.2)
[2017-11-10 07:00] LABS: INR 4.3 (0.8-1.2); PT - PROTHROMBIN TIME 45.6 secs (9.9-12.6)
[2017-11-10] MEDS: LEVALBUTEROL 1.25 MG/3 ML NEB INH SCH ×2 (08:29→19:45)
[2017-11-10] MEDS: CITALOPRAM 10 MG TABLET PO SCH (08:33)
[2017-11-10] MEDS: predniSONE 20 MG TABLET PO SCH (08:34)
[2017-11-10] MEDS: POLYETHYLENE GLYCOL 3350 17 GM PACKET PO SCH (08:34)
[2017-11-10] MEDS: SPIRONOLACTONE 25 MG TABLET PO SCH (08:34)
[2017-11-10] MEDS: ASPIRIN EC 81 MG TABLET PO SCH (08:35)
[2017-11-10] MEDS: LISINOPRIL 5 MG TABLET PO SCH (08:35)
[2017-11-10] MEDS: MULTIVITAMIN TABLET PO SCH (08:35)
[2017-11-10] MEDS: METOPROLOL SUCCINATE 25 MG TABLET PO SCH ×2 (08:35→20:49)
[2017-11-10] MEDS: MIDODRINE 2.5 MG TABLET PO SCH ×3 (08:37→16:34)
[2017-11-10] MEDS: cefTRIAXone 2 GM in SODIUM CHLORIDE 0.9% MINIBAG 100 ML IV SCH (12:31)
[2017-11-10 14:22] LABS: HIV AG/AB 4TH GEN NON-REACTIVE (NON-REACTIVE)
--- NOTE | 2017-11-10 14:27 | PROVIDER PROGRESS NOTE ---
Subjective - Prog Note Date Prog Note Date: 11/10/17 - Subjective Pt reports feeling: No change Subjective: pt denies fever, chill, chest pain. pt did report he recognize his severe illness and request palliative, possible hospice care as well " I am open mind to accept the any discharge plan, hope to pass through this cold winter." Current Medications - Current Medications Current Medications: Active Medications Aspirin (Ecotrin) 81 mg PO DAILY [facility] Last Admin: 11/10/17 08:35 Dose: 81 mg Citalopram Hydrobromide (Celexa) 40 mg PO DAILY [facility] Last Admin: 11/10/17 08:33 Dose: 40 mg Furosemide (Lasix Inj 40 Mg Vial) 40 mg IVP BIDDIURETIC [facility] Last Admin: 11/10/17 13:04 Dose: 40 mg Ceftriaxone Sodium 2 gm/ (Sodium Chloride) 100 mls @ 200 mls/hr IV Q24H [facility] Last Admin: 11/10/17 12:31 Dose: 200 mls/hr Levalbuterol HCl (Xopenex) 1.25 mg INH RTQ4H PRN PRN Reason: Wheezing Levalbuterol HCl (Xopenex) 1.25 mg INH RTTID [facility] Last Admin: 11/10/17 08:29 Dose: 1.25 mg Lisinopril (Zestril) 1.25 mg PO DAILY [facility] Last Admin: 11/10/17 08:35 Dose: 1.25 mg Lorazepam (Ativan) 1 mg PO Q4H PRN PRN Reason: Anxiety Metoprolol Succinate (Toprol Xl) 50 mg PO BID [facility] Last Admin: 11/10/17 08:35 Dose: Not Given Midodrine () 2.5 mg PO TIDWM [facility] Last Admin: 11/10/17 12:31 Dose: 2.5 mg Morphine Sulfate (Morphine (Carpuject)) 2 mg IVP Q2HR PRN PRN Reason: PAIN Morphine Sulfate (Roxanol) 10 mg PO Q2HR PRN PRN Reason: PAIN Last Admin: 11/09/17 11:45 Dose: 10 mg Multi-Ingredient Mouthwash/Gargle () 30 ml PO Q6H PRN PRN Reason: Heartburn Multivitamins (Theragran) 1 tab PO DAILY [facility] Last Admin: 11/10/17 08:35 Dose: 1 tab Ondansetron HCl (Zofran Inj) 4 mg IVP Q6HR PRN PRN Reason: Nausea / Vomiting Ondansetron HCl (Zofran Odt) 4 mg TL Q6HR PRN PRN Reason: Nausea / Vomiting Oxycodone HCl (Roxicodone) 5 mg PO Q4HR PRN PRN Reason: Pain 5 to 7 Polyethylene Glycol (Miralax) 17 gm PO DAILY [facility] Last Admin: 11/10/17 08:34 Dose: Not Given Prednisone (Deltasone) 20 mg PO DAILYWM [facility] Last Admin: 11/10/17 08:34 Dose: 20 mg Sodium Chloride (Normal Saline Flush 0.9%) 10 ml IVP PRN PRN PRN Reason: NEEDED PER PROVIDER ORDERS Last Admin: 11/10/17 13:04 Dose: 10 ml Sodium Chloride (Normal Saline Flush 0.9%) 10 ml IVP 0100,0900,1700 [facility] Last Admin: 11/10/17 08:36 Dose: 10 ml Spironolactone (Aldactone) 50 mg PO DAILY [facility] Last Admin: 11/10/17 08:34 Dose: 50 mg Warfarin [Coumadin] 5 mg PO DAILY 10/04/17 Amiodarone HCl 200 mg PO DAILY 11/05/17 Multivitamin [Theragran] 1 tab PO DAILY 11/05/17 Objective - Vital Signs/Intake & Output Reviewed Vital Signs: Yes Vital Signs: Vital Signs x48h Temp Pulse Pulse Resp BP Pulse Ox 11/10/17 13:13 110 H 20 11/10/17 13:00 36.4 C L 45 L 19 87/68 L 98 11/10/17 08:31 36.2 C L 106 H 20 90/76 99 11/10/17 08:29 114 H 24 11/10/17 08:01 36.4 C L 91 18 85/68 L 100 Intake & Output: Intake & Output 11/07/17 11/08/17 11/09/17 11/10/17 23:59 23:59 23:59 23:59 Intake Total 520 970 740 495 Output Total 742 132 7512 1000 Balance -150 420 -410 -505 - Objective General Appearance: positive: No acute distress, Alert. negative: Lethargic Eyes Bilateral: positive: Normal inspection, PERRL, No lid inflammation, Conjunctivae nml ENT: positive: ENT inspection nml, Pharynx nml, No signs of dehydration. negative: Purulent nasal drainage, Pharyngeal erythema, Oral lesions, Dry mucous membranes Neck: positive: Nml inspection, Thyroid nml, No JVD, Trachea midline. negative: Thyromegaly, Lymphadenopathy (R), Lymphadenopathy (L), Stiff neck, Swelling/bruising, Tracheal deviation Respiratory: positive: Chest non-tender, No respiratory distress, Breath sounds nml. negative: Wheezes, Rales, Rhonchi Cardiovascular: positive: Regular rate & rhythm, No murmur, No gallop, Tachycardia. negative: Irregularly irregular, Extrasystoles, Bradycardia, JVD present, Systolic murmur, Diastolic murmur Peripheral Pulses: 2+ Radial (R), 2+ Radial (L), 2+ Dorsalis pedis (R), 2+ Dorsalis pedis (L) Abdomen: positive: Non-tender, No organomegaly, Nml bowel sounds, No distention. negative: Tenderness, Guarding, Rebound Back: positive: Nml inspection. negative: CVA tenderness (R), CVA tenderness (L) Skin: positive: Color nml, No rash, Warm, Dry. negative: Cyanosis, Diaphoresis, Pallor Extremities: positive: Non-tender, Full ROM, Nml appearance. negative: Calf tenderness, Joint swelling, Tahira's sign/cords Neurologic/Psychiatric: positive: Sensation nml, Mood/affect nml. negative: Weakness, Sensory loss, Facial droop, Slurred/abnml speech, Depressed mood/affect - Lab Results Fish Bones: 11/09/17 05:30 11/10/17 06:00 Other Labs: Lab Results x24hrs 11/10/17 11/10/17 11/10/17 Range/Units 06:48 06:00 06:00 PT 45.6 H (9.9-12.6) secs INR 4.3 H (0.8-1.2) Sodium 128 L (135-145) mmol/L Potassium 4.5 (3.5-5.0) mmol/L Chloride 90 L (101-111) mmol/L Carbon Dioxide 21 (21-32) mmol/L Anion Gap 17.0 H (6-13) BUN 43 H (6-20) mg/dL Creatinine 1.6 H (0.6-1.2) mg/dL Estimated GFR (MDRD) 45 L (>89) Glucose 118 H (70-100) mg/dL Calcium 9.0 (8.5-10.3) mg/dL Total Bilirubin 1.7 H (0.2-1.0) mg/dL AST 51 H (10-42) IU/L ALT 77 H (10-60) IU/L Alkaline Phosphatase 132 H (42-121) IU/L B-Natriuretic Peptide 8591.00 H (5-100) pg/mL Total Protein 6.3 L (6.7-8.2) g/dL Albumin 3.6 (3.2-5.5) g/dL Globulin 2.7 (2.1-4.2) g/dL Albumin/Globulin Ratio 1.3 (1.0-2.2) HIV 1&2 Ag/Ab, 4th Gen (NON-REACTIVE) 11/09/17 Range/Units 05:30 PT (9.9-12.6) secs INR (0.8-1.2) Sodium (135-145) mmol/L Potassium (3.5-5.0) mmol/L Chloride (101-111) mmol/L Carbon Dioxide (21-32) mmol/L Anion Gap (6-13) BUN (6-20) mg/dL Creatinine (0.6-1.2) mg/dL Estimated GFR (MDRD) (>89) Glucose (70-100) mg/dL Calcium (8.5-10.3) mg/dL Total Bilirubin (0.2-1.0) mg/dL AST (10-42) IU/L ALT (10-60) IU/L Alkaline Phosphatase (42-121) IU/L B-Natriuretic Peptide (5-100) pg/mL Total Protein (6.7-8.2) g/dL Albumin (3.2-5.5) g/dL Globulin (2.1-4.2) g/dL Albumin/Globulin Ratio (1.0-2.2) HIV 1&2 Ag/Ab, 4th Gen NON-REACTIVE (NON-REACTIVE) ABX Reporting Has patient been on IV antibiotics over the past 48 hours?: Yes Assessment/Plan - Problem List (1) Right lower lobe pneumonia Impression: Impression: 11/10 pt's WBC is normal, 98% sats at 1 liter of O2, no fever, chill, cough. may switch to PO antibiotics, if continue improved The patient began at least 48 hours ago with a cough, increased breathing efforts, and overall fatigue. The patient complained of slight nausea and dizziness. He continues to have coarse crackles that are not clearing with i ncentive spirometer or new xopenex nebs, despite being on BID IV lasix. Imaging was ordered and confirms a new right low lobe pneumonia with pleural effusions. He has been afebrile, but certainly is feeling worse, which is only slightly improved today. Due to his worsening ESTEVAN, the patient was changed from Zosyn to Rocephin. Plan: Continue respiratory care, start Rocephin IV, and monitor for improvement. (2) Hypotension Impression: pt's EF <20%, SBP is around at 90 as his baseline The patient is now symptomatic with his hypotension and has a baseline systolic blood pressure in the 90's. After a further review of his chart and medications, we have added Midodrine 2.5mg TID with meals to help with this. Plan: Continue to monitor vital signs and await chest x-ray. (3) Acute combined systolic and diastolic CHF, NYHA class 3 Impression: 11/10 EF less 20%, poor response to diuretic and other treatment treatment, and with acute on chronic renal insufficiency. pt seek palliative care, will support The patient's BNP on admission was elevated at 4683, and remains elevated at ~8966. This abnormality is influenced by his kidney function, so it is somewhat expected with the IV lasix that he has been given during this stay. Clinically, the patient appears improved as his BLE edema is reduced, but remains with abdominal edema and crackles in his lungs with oxygen requirements. His abdominal edema is slightly worse each day. He is more hypoxic, has increased breathing efforts, mildly nauseated and has increased fatigue. He continues on BID IV lasix at 40mg. He continues on metoprolol, which was increased from 25 to 50mg. Amioderone was discontinued as this would be useful to keep him in a sinus rhythm, but not to attempt to convert him out of atrial fibrillation. Plan: Continue to monitor fluid status, monitor urine out put, and daily weights. (4) ESTEVAN (acute kidney injury) Impression: slight increase of creatinine because of the distress of diuretics. will hold diuretics as pt's fluid overload is controlled. The patient has had a steady decline in his kidney function and upon admission was found to have an elevated creatinine of 1.4, that is worse at 1.4. The GFR was reduced at 52. He continues on IV lasix with BID dosing, and his leg edema is much improved. Urine output has been charted today at 700ml since midnight. Antibiotic choice was changed to avoid further ESTEVAN. Plan: Continue daily labs, weights, and strict I/Os. (5) Atrial fibrillation with RVR Impression: on and off, intermittent afib with RVR. continue beta-cayden, continue monitor The patient has been in this rhythm for at least the past 2 admissions. His rates reach 120-150's at times. He recently had a cardiology consult with Dr. Pickett in [place] who plans to do a cardioversion after the patient is anti coagulated for a while. The patient denies palpitations, chest pain or tightness. He remains on telemetry and is tachycardic with heart rates in the 90's. His metoprolol dose was increased from 20 to 50mg, and the patient had symptomatic hypotension and was started on Midodrine. Despite my advanced care planning talk with the patient, he still wishes for us to call Dr. Pickett prior to discharge to see about his upcoming cardioversion. Plan: Continue rate control meds. (6) Do not resuscitate Impression: The patient was informed today that he more likely has less than one year to live based on his multi-organ dysfunction and his extremely poor heart function. Plan: Continue DNR code status, and have ongoing conversations, consider palliative care consult. (7) Homelessness Impression: The patient frequently reminds the medical team of this fact and has been set up with community resources when he is not in the hospital. He states that he has been homeless for at least the past year due to rent amounts going too high. Plan: Continue to treat this acute illness, and social work support for upcoming discharge. (8) Elevated LFTs Impression: The patient had very elevated LFTs with an AST/ALT of 128/181, that have improved. This abnormality was likely a result of his newly diagnosed Hep C. The patient does not appear jaundice, but does have bronze skin tone. An abdominal US was ordered and shows moderate ascities, hepatomegaly with mildly contour and imhomogeneous echotexture, without any focal liver lesions. Plan: Continue to monitor, and avoid liver toxic meds. HIV test is pending. (9) Hyponatremia Impression: 11/10, chronic lower of Na, continue to support. chronic hyponatremia indicates poor prognosis as well. The patient was found to have a low sodium level of 127, that remains the same at 126. This is likely a consequence of his fluid imbalance. The patient is not thought to have altered mental status as compared to previous admissions. He continues on his IV lasix BID. Plan: Continue to monitor daily labs. (10) Chronic anticoagulation Impression: 11/10 hold Coumadin now. INR is 4.3 today. Hold coumadin The patient is on Warfarin at 5mg PO daily, but was placed on hold today for an INR of 3.3. The patient believes if he stays on anticoagulation, he will get a cardioversion for his atrial fibrillation as per Dr. Pickett who has recently had a [facility]] visit with him. Plan: Continue daily INRs, and resume daily Coumadin as per daily INR results. (11) Hepatitis C Impression: continue support Blood testing including Hep C antibody and AB signal cutoff, show +disease. The patient had very elevated LFTs upon admission, which are gradually improved each day. It is recommended that if someone tests positive for Hep C, they should also undergo testing for HIV. The patient was surprised to hear that he is Hep C positive and states that he has never injected drugs and has not had a sexual partner in several years. I will recommend that the patient be referred for further hepatology testing via PCP, unless he chooses a path of Palliative/Hospice care. Plan: Provide education, await HIV lab, and monitor LFTs.
[2017-11-11] MEDS: LEVALBUTEROL 1.25 MG/3 ML NEB INH SCH ×2 (00:19→05:33)
[2017-11-11] MEDS: SODIUM CHLORIDE FLUSH 0.9% 10 ML SYRINGE IVP SCH ×3 (00:22→17:39)
[2017-11-11] MEDS: SODIUM CHLORIDE FLUSH 0.9% 10 ML SYRINGE IVP PRN ×2 (05:30→14:16)
[2017-11-11] MEDS: FUROSEMIDE 40 MG/4 ML VIAL IVP SCH ×2 (05:30→14:16)
[2017-11-11 05:45] LABS: INR 3.3 (0.8-1.2); PT - PROTHROMBIN TIME 35.2 secs (9.9-12.6)
[2017-11-11 05:47] LABS: BASOPHILS % (AUTO) 0.2 %; EOSINOPHILS % (AUTO) 0.2 %; HGB - HEMOGLOBIN 16.1 g/dL (14.0-18.0); LYMPHOCYTES # (AUTO) 0.8 10^3/uL (1.5-3.5); LYMPHOCYTES % (AUTO) 9.2 %; MEAN CORPUSCULAR HEMOGLOBIN 34.5 pg (27.0-31.0); MEAN CORPUSCULAR HGB CONC 33.6 g/dL (32.0-36.0); MEAN CORPUSCULAR VOLUME 102.4 fL (80.0-94.0); MEAN PLATELET VOLUME 10.2 fL (7.4-11.4); MONOCYTES % (AUTO) 10.7 %; NEUTROPHILS # (AUTO) 7.2 10^3/uL (1.5-6.6); NEUTROPHILS % (AUTO) 79.7 %; PLT - PLATELET COUNT 192 10^3/uL (130-450); RED BLOOD COUNT 4.67 10^6/uL (4.70-6.10); RED CELL DISTRIBUTION WIDTH 14.7 % (12.0-15.0)
[2017-11-11 05:56] LABS: ALBUMIN 3.4 g/dL (3.2-5.5); ALBUMIN/GLOBULIN RATIO 1.3 (1.0-2.2); BILIRUBIN,TOTAL 1.2 mg/dL (0.2-1.0); CALCIUM 8.7 mg/dL (8.5-10.3); CREATININE 1.4 mg/dL (0.6-1.2)
[2017-11-11] MEDS: MIDODRINE 2.5 MG TABLET PO SCH ×3 (09:23→17:37)
[2017-11-11] MEDS: LISINOPRIL 5 MG TABLET PO SCH (09:23)
[2017-11-11] MEDS: MULTIVITAMIN TABLET PO SCH (09:24)
[2017-11-11] MEDS: ASPIRIN EC 81 MG TABLET PO SCH (09:24)
[2017-11-11] MEDS: METOPROLOL SUCCINATE 25 MG TABLET PO SCH ×2 (09:24→21:22)
[2017-11-11] MEDS: CITALOPRAM 10 MG TABLET PO SCH (09:25)
[2017-11-11] MEDS: predniSONE 20 MG TABLET PO SCH (09:25)
[2017-11-11] MEDS: POLYETHYLENE GLYCOL 3350 17 GM PACKET PO SCH (09:25)
[2017-11-11] MEDS: SPIRONOLACTONE 25 MG TABLET PO SCH (09:25)
[2017-11-11] MEDS: cefTRIAXone 2 GM in SODIUM CHLORIDE 0.9% MINIBAG 100 ML IV SCH (12:43)
--- NOTE | 2017-11-11 13:55 | CONSULTATION NOTE ---
Palliative Care Consultation - Referral Referring Provider: Hong ARREDONDO Time of Visit: [id number] Referral setting: Hospitalized patient Referral Reason: Heart failure/Failure to thrive/Goals of Care - Information Sources Records reviewed: RN notes reviewed, Previous records reviewed History/Review of Systems obtained from: Patient Exam limitations: Clinical condition (patient with some recall with ROS/History; able to converse and be in the moment) - History of Present Illness Brief History of Present Illness: This is a 57-year-old gentleman who presents with a fairly complex history influenced by multiple factors. Patient currently homeless, this is added to the complexity of his care, he was originally diagnosed with congestive heart failure actually in April of this year on his initial admit to [facility], at that point in time also noted to have atrial fib, has been followed by the [facility], as well as his cdl instructor who first met him in August, Farhana Sadler MD, in [facility]. He had another admission 10/04- 10/14 for acute chronic systolic heart failure, with ejection fraction at that time of found to be 20%, and bilateral valve regurgitation. He has continue to struggle with ongoing progressive shortness of breath, intermittent exacerbations, and increased lower extremity swelling and weight gain. He was admitted 11/05 this most recent admit now worth worse sitting heart failure, with ejection fraction of less than 20%, moderate left ventricular enlargement and severe right ventricular enlargement. Is continued to struggle to find a balance with his m edications, and in this context also developed liver congestion, which further explored has shown he is positive for hepatitis C. Currently his lower extremity edema has improved, he has diuresed, he continues difficulty with hypotension, but his BNP is finally improving. He has very poor activity tolerance, is unable to lay flat secondary to orthopnea, has severe GERD with intermittent gagging, has breathlessness with any kind of activity though does not present with hypoxia, and most significant symptom is actually his overwhelming fatigue.He reports he has been client compliant with his m edications, he has some understanding of his disease, has been told the severity of his illness gives him limited prognosis. He reports his understanding of his last stay it was 3-5 years, his understands currently it may be 6 [id number]. He has found this somewhat overwhelming to absorb this information. Has minimal social support, nor financial resources. In the context of this. Patient has some understanding of his disease process, does recognize he is seriously ill, but is most overwhelmed by his current situation of homelessness particularly in the face of his high symptom burden. Palliative care has been asked to meet with patient regarding goals of care, and evaluate for hospice appropriateness. 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 Is estranged from what other family he may have. He was raised in the area, lived on mother's estate until about a year ago, she of "old age" about 5 years ago. 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 Reports has had a fairly complicated life, including drug and alcoholism, and has alienated most of his friends and/or support network. Family History - Family History Family History: Mother: (adopted), Father: Medications/Allergies - Medications Active Medication List: Active Medications Aspirin (Ecotrin) 81 mg PO DAILY [facility] Last Admin: 11/11/17 09:24 Dose: 81 mg Citalopram Hydrobromide (Celexa) 40 mg PO DAILY [facility] Last Admin: 11/11/17 09:25 Dose: 40 mg Furosemide (Lasix Inj 40 Mg Vial) 40 mg IVP BIDDIURETIC [facility] Last Admin: 11/11/17 05:30 Dose: 40 mg Ceftriaxone Sodium 2 gm/ (Sodium Chloride) 100 mls @ 200 mls/hr IV Q24H [facility] Last Infusion: 11/11/17 13:15 Dose: Infused Levalbuterol HCl (Xopenex) 1.25 mg INH RTQ4H PRN PRN Reason: Wheezing Lisinopril (Zestril) 1.25 mg PO DAILY [facility] Last Admin: 11/11/17 09:23 Dose: 1.25 mg Lorazepam (Ativan) 1 mg PO Q4H PRN PRN Reason: Anxiety Metoprolol Succinate (Toprol Xl) 50 mg PO BID [facility] Last Admin: 11/11/17 09:24 Dose: 50 mg Midodrine () 2.5 mg PO TIDWM [facility] Last Admin: 11/11/17 12:42 Dose: 2.5 mg Morphine Sulfate (Morphine (Carpuject)) 2 mg IVP Q2HR PRN PRN Reason: PAIN Morphine Sulfate (Roxanol) 10 mg PO Q2HR PRN PRN Reason: PAIN Last Admin: 11/09/17 11:45 Dose: 10 mg Multi-Ingredient Mouthwash/Gargle () 30 ml PO Q6H PRN PRN Reason: Heartburn Multivitamins (Theragran) 1 tab PO DAILY [facility] Last Admin: 11/11/17 09:24 Dose: 1 tab Ondansetron HCl (Zofran Inj) 4 mg IVP Q6HR PRN PRN Reason: Nausea / Vomiting Ondansetron HCl (Zofran Odt) 4 mg TL Q6HR PRN PRN Reason: Nausea / Vomiting Last Admin: 11/10/17 16:34 Dose: 4 mg Oxycodone HCl (Roxicodone) 5 mg PO Q4HR PRN PRN Reason: Pain 5 to 7 Polyethylene Glycol (Miralax) 17 gm PO DAILY [facility] Last Admin: 11/11/17 09:25 Dose: Not Given Prednisone (Deltasone) 20 mg PO DAILYWM [facility] Last Admin: 11/11/17 09:25 Dose: 20 mg Sodium Chloride (Normal Saline Flush 0.9%) 10 ml IVP PRN PRN PRN Reason: NEEDED PER PROVIDER ORDERS Last Admin: 11/11/17 05:30 Dose: 10 ml Sodium Chloride (Normal Saline Flush 0.9%) 10 ml IVP 0100,0900,1700 [facility] Last Admin: 11/11/17 09:25 Dose: 10 ml Spironolactone (Aldactone) 50 mg PO DAILY [facility] Last Admin: 11/11/17 09:25 Dose: 50 mg Warfarin [Coumadin] 5 mg PO DAILY 10/04/17 Amiodarone HCl 200 mg PO DAILY 11/05/17 Multivitamin [Theragran] 1 tab PO DAILY 11/05/17 - Allergies Allergies/Adverse Reactions: Allergies Allergy/AdvReac Type Severity Reaction Status Date / Time No Known Drug Allergies Allergy Verified 11/05/17 02:16 Review of Systems - Constitutional Constitutional: reports: Fatigue (reports this continues to escalate and most impactful on QOL), Weight gain (fluid; appears cachetic) - Eyes Eyes: reports: Vision loss - Ears, Nose & Throat Ears, Nose & Throat: reports: Hearing loss, Vertigo, Nasal congestion, Dental decay - Cardiovascular Cardiovascular: reports: Irregular heart rate, Edema, Exertional dyspnea, Decr. exercise tolerance, Orthopnea - Respiratory Respiratory: reports: Cough, Sputum production, Orthopnea, SOB at rest, SOB with exertion - Gastrointestinal Gastrointestinal: reports: Nausea, Reflux/heartburn, Bloating, Poor appetite, Early satiety, Other (severe hiccups) - Genitourinary Genitourinary: reports: Frequency, Urgency - Musculoskeletal Musculoskeletal: reports: Muscle pain, Back pain, Muscle aches, Stiffness, Limited range of motion, Muscle weakness - Integumentary Integumentary: reports: Dryness - Neurological Neurological: reports: General weakness, Memory problems, Incoordination - Psychiatric Psychiatric: reports: Depression, Anxiety - Endocrine Endocrine: reports: Intolerance to cold - Hematologic/Lymphatic Hematologic/Lymphatic: reports: Anemia, Bruising, Recurrent infections - All Other Systems All Other Systems: reports: Reviewed and negative Physical Exam - Vital Signs Vital Signs: Vital Signs x48h Temp Pulse Pulse Resp BP BP Pulse Ox 11/11/17 12:39 36.5 C 86 16 78/54 L 95 11/11/17 08:56 36.6 C 76 18 89/65 L 95 - Physical Exam General Appearance: positive: Moderate distress (abdominal discomfort with burping/air trapping) Eyes Bilateral: positive: Other (conjuntivae reddened) ENT: positive: Other (poor dentition) Neck: positive: No JVD, Trachea midline Cardiovascular: positive: Irregularly irregular Respiratory: positive: Diminished in bases, Rhonchi (scattered /clear with coughing) Abdomen: positive: Soft, Abnml bowel sounds (distant), Distended, Taut Skin: positive: Mottled, Pallor, Dryness, Bruising Extremities: positive: Pedal edema (has FAIZAN on 1-2+) Neurologic/Psychiatric: positive: Disoriented to time, Weakness, Depressed mood/ affect, Flat affect Palliative Care - POLST Patient has POLST: Yes POLST Status: DNR, Selective Treatment (completed at visit) Pain: Pain worsening, Location (Patient complains of most severe as gastric, reports hiccups exacerbate pain, has severe sharp shooting pains in his abdomen particularly with eating. Patient also complains of overall pain related to his osteoarthritis, reports he has been hard on his body, has joint pain muscle pain and back pain. Has "beaten himself up". Patient reports he always lives with some level of discomfort.) Tiredness/Fatigue: Severe (7-10) (Patient reports most overwhelming symptom is actually his fatigue, his poor activity tolerance, breathless with any kind of activity. Needs to pace himself, has been quite limiting, and this is been most progressive over the last several days to weeks) Drowsiness/Sedation: Moderate (4-6) Nausea: Moderate (4-6), With vomiting (dry heaves "mostly") Depression: Moderate (4-6) Anxiety: Severe (7-10), Comment (He is overwhelmed at the thought of returning back to the streets, managing with his current high symptom burden, and his level of discomfort. Is hoping to be able to find a place to be safe) Dyspnea: Severe (7-10) Anorexia: Moderate (4-6) Sleep: Variable sleep pattern Performance Status: Patient only able to ambulate short distances secondary to dyspnea and usually lower extremity edema. He reports it is like "walking with a couple of hands" when his edema exacerbates. He has been unable to find a place to be able to elevate his legs, this is made his situation worsened. He is hopeful to find a place where he can elevate his legs, and just relax. - Palliative Care Discussion: Patient is quite cooperative, able to converse, making good eye contact. Patient is very pleasant in demeanor during visit, when discussed what his goals are met things that are most important to him regarding the seriousness of his illness, is he would just "not like to be living on the streets". His idea of the ideal end-of-life situation, is just having a place to put his feet up, be able to watch TV, and feel safe and less anxious. In discussing the context of how he is feeling related to this. He feels like he is definitely overwhelmed, he is quite surprised at the rapid decline in his health he has experienced over the last few months. He describes high symptom burden of fatigue, anxiety, depression, pain, and anorexia. He does report he has been compliant with his meds, though the severity of his exacerbations certainly brings this into question. He does understand he has a serious illness, that his life is limited, but is somewhat perseverative on this "cardioversion", with the hope that would improve his quantity and quality of life. I suspect that this point he may not even be a candidate, and review of his records his last visit with Dr. Kamara on 10/23 was to be anticoagulated for a month then schedule procedure, this was done with the reference point of unknown point of dx of atrial flutter, but in his records shows had atrial fib on 04/28/2017 admit. In reviewing the continuum of care, including hospice, as far as a layer of support, and not a place. He currently would still continue to look at interventions including rehospitalization. He does want to be comfortable, is definitely clear he does not want to be ventilated or resuscitated, but is not at a place to consider no treatment or comfort measures only. He would most likely meet hospice criteria, given his ejection fraction of less than 20%, maximally managed on his cardiac meds, and fairly rapid decline regarding his multiorgan failure. He also functionally is dyspneic at rest, has severe fatigue, and particularly if does not change his current living situation most likely is unlikely to improve his cardiac status. [facility] form was reviewed and completed. Discussed the need to have patient's goals documented in his medical record particularly since he is unable to identify a durable power of Cashier Host/Hostess for healthcare. He would want not to be more dependent, who is an awake decisions for himself he would want to focus on comfort unless there were a chance he might come out of this to be able to be independent again. He does not want to have extended suffering and is hopeful to have an end-of-life event outside of the hospital. The reality of congestive heart failure is that it does have an unpredictable course, it is difficult to prognosticate, but known with NYHA Class IV with severe symptoms, based on the [facility] study 1 year mortality estimates are 30-40%. General predictors of shorter prognosis include cardiac hospitalizations, elevated BUN greater or equal to 1.4 mg, systolic Blood pressure less than 100, decreased left ventricular ejection fraction, hyponatremia less than 135, cachexia, reduced functional capacity, and comorbidities of COPD, cirrhosis, and depression. Results - Lab Results Lab results reviewed: Yes Fish Bones: 11/11/17 05:10 11/11/17 05:10 Lab and Imaging Results: Lab Results x24hrs 11/11/17 11/11/17 11/11/17 Range/Units 05:10 05:10 05:10 WBC 9.0 (4.8-10.8) x10^3/uL RBC 4.67 L (4.70-6.10) 10^6/uL Hgb 16.1 (14.0-18.0) g/dL Hct 47.8 (42.0-52.0) % MCV 102.4 H (80.0-94.0) fL MCH 34.5 H (27.0-31.0) pg MCHC 33.6 (32.0-36.0) g/dL RDW 14.7 (12.0-15.0) % Plt Count 192 (130-450) 10^3/uL MPV 10.2 (7.4-11.4) fL Neut # (Auto) 7.2 H (1.5-6.6) 10^3/uL Lymph # (Auto) 0.8 L (1.5-3.5) 10^3/uL [place] # (Auto) 1.0 (0.0-1.0) 10^3/uL Eos # (Auto) 0.0 (0.0-0.7) 10^3/uL Baso # (Auto) 0.0 (0.0-0.1) 10^3/uL Absolute Nucleated RBC 0.01 x10^3/uL Nucleated RBC % 0.1 /100WBC PT 35.2 H (9.9-12.6) secs INR 3.3 H (0.8-1.2) Sodium (135-145) mmol/L Potassium (3.5-5.0) mmol/L Chloride (101-111) mmol/L Carbon Dioxide (21-32) mmol/L Anion Gap (6-13) BUN (6-20) mg/dL Creatinine (0.6-1.2) mg/dL Estimated GFR (MDRD) (>89) Glucose (70-100) mg/dL Calcium (8.5-10.3) mg/dL Total Bilirubin (0.2-1.0) mg/dL AST (10-42) IU/L ALT (10-60) IU/L Alkaline Phosphatase (42-121) IU/L B-Natriuretic Peptide 6479.00 H (5-100) pg/mL Total Protein (6.7-8.2) g/dL Albumin (3.2-5.5) g/dL Globulin (2.1-4.2) g/dL Albumin/Globulin Ratio (1.0-2.2) HIV 1&2 Ag/Ab, 4th Gen (NON-REACTIVE) 11/11/17 11/09/17 Range/Units 05:10 05:30 WBC (4.8-10.8) x10^3/uL RBC (4.70-6.10) 10^6/uL Hgb (14.0-18.0) g/dL Hct (42.0-52.0) % MCV (80.0-94.0) fL MCH (27.0-31.0) pg MCHC (32.0-36.0) g/dL RDW (12.0-15.0) % Plt Count (130-450) 10^3/uL MPV (7.4-11.4) fL Neut # (Auto) (1.5-6.6) 10^3/uL Lymph # (Auto) (1.5-3.5) 10^3/uL [place] # (Auto) (0.0-1.0) 10^3/uL Eos # (Auto) (0.0-0.7) 10^3/uL Baso # (Auto) (0.0-0.1) 10^3/uL Absolute Nucleated RBC x10^3/uL Nucleated RBC % /100WBC PT (9.9-12.6) secs INR (0.8-1.2) Sodium 127 L (135-145) mmol/L Potassium 4.1 (3.5-5.0) mmol/L Chloride 90 L (101-111) mmol/L Carbon Dioxide 24 (21-32) mmol/L Anion Gap 13.0 (6-13) BUN 41 H (6-20) mg/dL Creatinine 1.4 H (0.6-1.2) mg/dL Estimated GFR (MDRD) 52 L (>89) Glucose 107 H (70-100) mg/dL Calcium 8.7 (8.5-10.3) mg/dL Total Bilirubin 1.2 H (0.2-1.0) mg/dL AST 39 (10-42) IU/L ALT 66 H (10-60) IU/L Alkaline Phosphatase 138 H (42-121) IU/L B-Natriuretic Peptide (5-100) pg/mL Total Protein 6.0 L (6.7-8.2) g/dL Albumin 3.4 (3.2-5.5) g/dL Globulin 2.6 (2.1-4.2) g/dL Albumin/Globulin Ratio 1.3 (1.0-2.2) HIV 1&2 Ag/Ab, 4th Gen NON-REACTIVE (NON-REACTIVE) Impression and Recommendations - Palliative Care Impression: This is a 57-year-old gentleman with NYHA Class IV Heart Failure, ejection fraction Less than 20, functional decline, now on third hospitalization for CHF and complications, and newly with elevated hepatic enzymes, high symptom burden, and complicated social situation, facing serious illness with with little social support and hx of substance abuse disorders. Patient's current quality of life significantly impacted by social situation, has had rapid decline was cornell lara influenced by this is well, and very much wants to focus on quality of life recognizing his quantity of life is limited. Palliative care providing support regarding defining goals of care, and support for serious illness. Recommendations/Counseling Done: 1. GI distress. Patient does have some effectiveness with his GI cocktail, would recommend though longer term intervention of H2 cayden or PPI. Patient's most distressful symptom on outpatient side has been nausea/GERD as well as hiccups. Has limited ability to eat and tolerate increase caloric intake. Has stopped drinking because of the severity of his GI distress with ETOH consumption. 2.Congestive heart failure. Patient is working with hospitalist to maximize medication management, patient is quite focused on cardioversion. If this is not realistic or of benefit at this point, might be of help to have this information for advanced care planning. In records from Dr. Kamara, was planned for one month after 10/23 appointment. No prognostic information included in note. Would recommend hospitalist follow up if this is patient's goal to move forward with more aggressive intervention to consult [facility] numbers listed [phone]. 3. Advanced care planning. [facility] was reviewed and filled out as a DNAR/Allow natural , Is able to recount understanding that he would have a poor prognosis if he were to have an arrest. He is also not interested in having ventilation or ventilatory support and intubation. At this point though he understands his prognosis is poor, he would accept rehospitalization, antibiotics and further intervention to improve both his quality and quantity of life. He does understand unless he finds a stable situation, and makes better choices as far as being compliant with his medication regimen and decrease his substance abuse at this possibility of further quantity of life will be limited. It is also unclear given his increased liver enzymes and new hep C positive, what implications these are going to have for his long-term prognostic variables. Patient's greatest goal is to find stabilization in a safe place, and his homelessness situation. Depending on where he is finally placed, he would benefit from ongoing palliative care support to assist with negotiating his serious illness and concern for his poor prognosis and trajectory Time Spent: 60 minutes with greater than 50% of this done in counseling regarding goals of care, advanced care planning. Review of current understanding of the illness. Coordination of care with psychosocial rehabilitation counselor and hospitalist. Provided 5 wishes, completed [facility] form, and recommended considering if there is any when his support network her for DPO A, form provided.
[2017-11-11] MEDS: GI COCKTAIL 120 ML BOTTLE PO PRN (15:22)
--- NOTE | 2017-11-11 15:23 | PROVIDER PROGRESS NOTE ---
Subjective - Prog Note Date Prog Note Date: 11/11/17 - Subjective Pt reports feeling: No change Subjective: pt report he feels the same, no acute complaints. discussed with Ms. Lashawn Acevedolly for pt's advance care plan. pt report he did see his internal communications writer in [facility] about two weeks ago. his internal communications writer plan to do cardiac conversion to him for his afib per pt's report. I tried to reach pt's internal communications writer at [phone] but nobody picked up the phone. Current Medications - Current Medications Current Medications: Active Medications Aspirin (Ecotrin) 81 mg PO DAILY [facility] Last Admin: 11/11/17 09:24 Dose: 81 mg Citalopram Hydrobromide (Celexa) 40 mg PO DAILY [facility] Last Admin: 11/11/17 09:25 Dose: 40 mg Furosemide (Lasix Inj 40 Mg Vial) 40 mg IVP DAILY [facility] Ceftriaxone Sodium 2 gm/ (Sodium Chloride) 100 mls @ 200 mls/hr IV Q24H [facility] Last Infusion: 11/11/17 13:15 Dose: Infused Levalbuterol HCl (Xopenex) 1.25 mg INH RTQ4H PRN PRN Reason: Wheezing Lorazepam (Ativan) 1 mg PO Q4H PRN PRN Reason: Anxiety Metoprolol Succinate (Toprol Xl) 50 mg PO BID [facility] Last Admin: 11/11/17 09:24 Dose: 50 mg Midodrine () 2.5 mg PO TIDWM [facility] Last Admin: 11/11/17 12:42 Dose: 2.5 mg Morphine Sulfate (Morphine (Carpuject)) 2 mg IVP Q2HR PRN PRN Reason: PAIN Morphine Sulfate (Roxanol) 10 mg PO Q2HR PRN PRN Reason: PAIN Last Admin: 11/09/17 11:45 Dose: 10 mg Multi-Ingredient Mouthwash/Gargle () 30 ml PO Q6H PRN PRN Reason: Heartburn Last Admin: 11/11/17 15:22 Dose: 30 ml Multivitamins (Theragran) 1 tab PO DAILY [facility] Last Admin: 11/11/17 09:24 Dose: 1 tab Ondansetron HCl (Zofran Inj) 4 mg IVP Q6HR PRN PRN Reason: Nausea / Vomiting Ondansetron HCl (Zofran Odt) 4 mg TL Q6HR PRN PRN Reason: Nausea / Vomiting Last Admin: 11/10/17 16:34 Dose: 4 mg Oxycodone HCl (Roxicodone) 5 mg PO Q4HR PRN PRN Reason: Pain 5 to 7 Polyethylene Glycol (Miralax) 17 gm PO DAILY [facility] Last Admin: 11/11/17 09:25 Dose: Not Given Prednisone (Deltasone) 20 mg PO DAILYWM [facility] Last Admin: 11/11/17 09:25 Dose: 20 mg Sodium Chloride (Normal Saline Flush 0.9%) 10 ml IVP PRN PRN PRN Reason: NEEDED PER PROVIDER ORDERS Last Admin: 11/11/17 14:16 Dose: 10 ml Sodium Chloride (Normal Saline Flush 0.9%) 10 ml IVP 0100,0900,1700 [facility] Last Admin: 11/11/17 09:25 Dose: 10 ml Spironolactone (Aldactone) 50 mg PO DAILY [facility] Last Admin: 11/11/17 09:25 Dose: 50 mg Warfarin [Coumadin] 5 mg PO DAILY 10/04/17 Amiodarone HCl 200 mg PO DAILY 11/05/17 Multivitamin [Theragran] 1 tab PO DAILY 11/05/17 Objective - Vital Signs/Intake & Output Reviewed Vital Signs: Yes Vital Signs: Vital Signs x48h Temp Pulse Pulse Resp BP BP Pulse Ox 11/11/17 13:00 36.5 C 95 16 78/64 L 92 11/11/17 12:39 36.5 C 86 16 78/54 L 95 11/11/17 08:56 36.6 C 76 18 89/65 L 95 Intake & Output: Intake & Output 11/08/17 11/09/17 11/10/17 11/11/17 23:59 23:59 23:59 23:59 Intake Total 129 082 7336 520 Output Total 550 1150 1600 1350 Balance 085 -410 -375 -830 - Objective General Appearance: positive: No acute distress, Alert. negative: Lethargic Eyes Bilateral: positive: Normal inspection, PERRL, No lid inflammation, Conjunctivae nml ENT: positive: ENT inspection nml, Pharynx nml, No signs of dehydration. negative: Purulent nasal drainage, Pharyngeal erythema, Oral lesions Neck: positive: Nml inspection, Thyroid nml, No JVD, Trachea midline. negative: Thyromegaly, Lymphadenopathy (R), Lymphadenopathy (L), Stiff neck, Swelling/bruising, Tracheal deviation Respiratory: positive: Chest non-tender, No respiratory distress, Breath sounds nml. negative: Wheezes, Rales, Rhonchi Cardiovascular: positive: Regular rate & rhythm, No murmur, No gallop. negative: Irregularly irregular, Extrasystoles, Tachycardia, Bradycardia, Systolic murmur, Diastolic murmur Peripheral Pulses: 2+ Radial (R), 2+ Radial (L), 2+ Dorsalis pedis (R), 2+ Dorsalis pedis (L) Abdomen: positive: Non-tender, No organomegaly, Nml bowel sounds, No distention. negative: Tenderness, Guarding, Rebound Back: positive: Nml inspection. negative: CVA tenderness (R), CVA tenderness (L) Skin: positive: Color nml, No rash, Warm, Dry. negative: Cyanosis, Diaphoresis, Pallor Extremities: positive: Non-tender, Full ROM, Nml appearance. negative: Calf tenderness, Joint swelling, Tahira's sign/cords Neurologic/Psychiatric: positive: Oriented x3, Motor nml, Sensation nml, Mood/affect nml. negative: Weakness, Sensory loss, Facial droop, Slurred/abnml speech, Depressed mood/affect - Lab Results Fish Bones: 11/11/17 05:10 11/11/17 05:10 Other Labs: Lab Results x24hrs 11/11/17 11/11/17 11/11/17 Range/Units 05:10 05:10 05:10 WBC 9.0 (4.8-10.8) x10^3/uL RBC 4.67 L (4.70-6.10) 10^6/uL Hgb 16.1 (14.0-18.0) g/dL Hct 47.8 (42.0-52.0) % MCV 102.4 H (80.0-94.0) fL MCH 34.5 H (27.0-31.0) pg MCHC 33.6 (32.0-36.0) g/dL RDW 14.7 (12.0-15.0) % Plt Count 192 (130-450) 10^3/uL MPV 10.2 (7.4-11.4) fL Neut # (Auto) 7.2 H (1.5-6.6) 10^3/uL Lymph # (Auto) 0.8 L (1.5-3.5) 10^3/uL Blaine # (Auto) 1.0 (0.0-1.0) 10^3/uL Eos # (Auto) 0.0 (0.0-0.7) 10^3/uL Baso # (Auto) 0.0 (0.0-0.1) 10^3/uL Absolute Nucleated RBC 0.01 x10^3/uL Nucleated RBC % 0.1 /100WBC PT 35.2 H (9.9-12.6) secs INR 3.3 H (0.8-1.2) Sodium (135-145) mmol/L Potassium (3.5-5.0) mmol/L Chloride (101-111) mmol/L Carbon Dioxide (21-32) mmol/L Anion Gap (6-13) BUN (6-20) mg/dL Creatinine (0.6-1.2) mg/dL Estimated GFR (MDRD) (>89) Glucose (70-100) mg/dL Calcium (8.5-10.3) mg/dL Total Bilirubin (0.2-1.0) mg/dL AST (10-42) IU/L ALT (10-60) IU/L Alkaline Phosphatase (42-121) IU/L B-Natriuretic Peptide 6479.00 H (5-100) pg/mL Total Protein (6.7-8.2) g/dL Albumin (3.2-5.5) g/dL Globulin (2.1-4.2) g/dL Albumin/Globulin Ratio (1.0-2.2) 11/11/17 Range/Units 05:10 WBC (4.8-10.8) x10^3/uL RBC (4.70-6.10) 10^6/uL Hgb (14.0-18.0) g/dL Hct (42.0-52.0) % MCV (80.0-94.0) fL MCH (27.0-31.0) pg MCHC (32.0-36.0) g/dL RDW (12.0-15.0) % Plt Count (130-450) 10^3/uL MPV (7.4-11.4) fL Neut # (Auto) (1.5-6.6) 10^3/uL Lymph # (Auto) (1.5-3.5) 10^3/uL Blaine # (Auto) (0.0-1.0) 10^3/uL Eos # (Auto) (0.0-0.7) 10^3/uL Baso # (Auto) (0.0-0.1) 10^3/uL Absolute Nucleated RBC x10^3/uL Nucleated RBC % /100WBC PT (9.9-12.6) secs INR (0.8-1.2) Sodium 127 L (135-145) mmol/L Potassium 4.1 (3.5-5.0) mmol/L Chloride 90 L (101-111) mmol/L Carbon Dioxide 24 (21-32) mmol/L Anion Gap 13.0 (6-13) BUN 41 H (6-20) mg/dL Creatinine 1.4 H (0.6-1.2) mg/dL Estimated GFR (MDRD) 52 L (>89) Glucose 107 H (70-100) mg/dL Calcium 8.7 (8.5-10.3) mg/dL Total Bilirubin 1.2 H (0.2-1.0) mg/dL AST 39 (10-42) IU/L ALT 66 H (10-60) IU/L Alkaline Phosphatase 138 H (42-121) IU/L B-Natriuretic Peptide (5-100) pg/mL Total Protein 6.0 L (6.7-8.2) g/dL Albumin 3.4 (3.2-5.5) g/dL Globulin 2.6 (2.1-4.2) g/dL Albumin/Globulin Ratio 1.3 (1.0-2.2) ABX Reporting Has patient been on IV antibiotics over the past 48 hours?: Yes Assessment/Plan - Problem List (1) Right lower lobe pneumonia Impression: 11/11 95% sat on room air, no fever, chill, WBC is normal. continue antibiotics 11/10 pt's WBC is normal, 98% sats at 1 liter of O2, no fever, chill, cough. may switch to PO antibiotics, if continue improved The patient began at least 48 hours ago with a cough, increased breathing efforts, and overall fatigue. The patient complained of slight nausea and dizziness. He continues to have coarse crackles that are not clearing with incentive spirometer or new xopenex nebs, despite being on BID IV lasix. Imaging was ordered and confirms a new right low lobe pneumonia with pleural effusions. He has been afebrile, but certainly is feeling worse, which is only slightly improved today. Due to his worsening ESTEVAN, the patient was changed from Zosyn to Rocephin. Plan: Continue respiratory care, start Rocephin IV, and monitor for improvement. (2) Hypotension Impression: 11/11, pt's EF <20%, SBP is at 82, SBP around 80-90 are still acceptable as pt is asymptomatic. will hold Lisinopril, and reduce Lasix to 40 mg daily continue vital, tele monitor pt's EF <20%, SBP is around at 90 as his baseline The patient is now symptomatic with his hypotension and has a baseline systolic blood pressure in the 90's. After a further review of his chart and medicat ions, we have added Midodrine 2.5mg TID with meals to help with this. Plan: Continue to monitor vital signs and await chest x-ray. (3) Acute combined systolic and diastolic CHF, NYHA class 3 Impression: tried to reach pt's internal communications writer for advance care plan but could not reach. consult with palliative care per pt's request, will followup 11/10 EF less 20%, poor response to diuretic and other treatment treatment, and with acute on chronic renal insufficiency. pt seek palliative care, will support The patient's BNP on admission was elevated at 4683, and remains elevated at ~8966. This abnormality is influenced by his kidney function, so it is somewhat expected with the IV lasix that he has been given during this stay. Clinically, the patient appears improved as his BLE edema is reduced, but remains with abdominal edema and crackles in his lungs with oxygen requirements. His abdominal edema is slightly worse each day. He is more hypoxic, has increased breathing efforts, mildly nauseated and has increased fatigue. He continues on BID IV lasix at 40mg. He continues on metoprolol, which was increased from 25 to 50mg. Amioderone was discontinued as this would be useful to keep him in a sinus rhythm, but not to attempt to convert him out of atrial fibrillation. Plan: Continue to monitor fluid status, monitor urine out put, and daily weights. (4) ESTEVAN (acute kidney injury) Impression: stable now as the baseline continue lab monitor slight increase of creatinine because of the distress of diuretics. will hold diuretics as pt's fluid overload is controlled. The patient has had a steady decline in his kidney function and upon admission was found to have an elevated creatinine of 1.4, that is worse at 1.4. The GFR was reduced at 52. He continues on IV lasix with BID dosing, and his leg edema is much improved. Urine output has been charted today at 700ml since midnight. Antibiotic choice was changed to avoid further ESTEVAN. Plan: Continue daily labs, weights, and strict I/Os. (5) Atrial fibrillation with RVR Impression: stable on and off, intermittent afib with RVR. continue beta-cayden, continue monitor The patient has been in this rhythm for at least the past 2 admissions. His rates reach 120-150's at times. He recently had a cardiology consult with Dr. Pickett in [place] who plans to do a cardioversion after the patient is anticoagulated for a while. The patient denies palpitations, chest pain or tightness. He remains on telemetry and is tachycardic with heart rates in the 90's. His metoprolol dose was increased from 20 to 50mg, and the patient had symptomatic hypotension and was started on Midodrine. Despite my advanced care planning talk with the patient, he still wishes for us to call Dr. Pickett prior to discharge to see about his upcoming cardioversion. Plan: Continue rate control meds. (6) Do not resuscitate Impression: The patient was informed today that he more likely has less than one year to live based on his multi-organ dysfunction and his extremely poor heart function. Plan: Continue DNR code status, and have ongoing conversations, consider palliative care consult. (7) Homelessness Impression: The patient frequently reminds the medical team of this fact and has been set up with community resources when he is not in the hospital. He states that he has been homeless for at least the past year due to rent amounts going too high. Plan: Continue to treat this acute illness, and social work support for upva sadi discharge. (8) Elevated LFTs Impression: 11/11 stable, pt is Hep C positive, which can cause elevated LFTs The patient had very elevated LFTs with an AST/ALT of 128/181, that have improved. This abnormality was likely a result of his newly diagnosed Hep C. The patient does not appear jaundice, but does have bronze skin tone. An abdominal US was ordered and shows moderate ascities, hepatomegaly with mildly contour and imhomogeneous echotexture, without any focal liver lesions. Plan: Continue to monitor, and avoid liver toxic meds. HIV test is pending. (9) Hyponatremia Impression: 11/10, chronic lower of Na, continue to support. chronic hyponatremia indicates poor prognosis as well. The patient was found to have a low sodium level of 127, that remains the same at 126. This is likely a consequence of his fluid imbalance. The patient is not thought to have altered mental status as compared to previous admissions. He continues on his IV lasix BID. Plan: Continue to monitor daily labs. (10) Chronic anticoagulation Impression: 11/10 hold Coumadin now. INR is 4.3 today. Hold coumadin The patient is on Warfarin at 5mg PO daily, but was placed on hold today for an INR of 3.3. The patient believes if he stays on anticoagulation, he will get a cardioversion for his atrial fibrillation as per Dr. Pickett who has recently had a clinic visit with him. Plan: Continue daily INRs, and resume daily Coumadin as per daily INR results. (11) Hepatitis C Impression: continue support Blood testing including Hep C antibody and AB signal cutoff, show +disease. The patient had very elevated LFTs upon admission, which are gradually improved each day. It is recommended that if someone tests positive for Hep C, they shou ld also undergo testing for HIV. The patient was surprised to hear that he is Hep C positive and states that he has never injected drugs and has not had a sexual partner in several years. I will recommend that the patient be referred for further hepatology testing via PCP, unless he chooses a path of Palliative/Hospice care. Plan: Provide education, await HIV lab, and monitor LFTs.
[2017-11-11] MEDS: MORPHINE SOL 10 MG/0.5 ML SYRINGE PO PRN (21:29)
[2017-11-12] MEDS: SODIUM CHLORIDE FLUSH 0.9% 10 ML SYRINGE IVP SCH ×4 (00:33→23:50)
[2017-11-12 05:24] LABS: BASOPHILS % (AUTO) 0.4 %; EOSINOPHILS % (AUTO) 0.1 %; LYMPHOCYTES # (AUTO) 0.8 10^3/uL (1.5-3.5); LYMPHOCYTES % (AUTO) 10.8 %; MEAN CORPUSCULAR HEMOGLOBIN 34.4 pg (27.0-31.0); MEAN CORPUSCULAR HGB CONC 33.9 g/dL (32.0-36.0); MEAN CORPUSCULAR VOLUME 101.4 fL (80.0-94.0); MONOCYTES # (AUTO) 0.7 10^3/uL (0.0-1.0); MONOCYTES % (AUTO) 9.8 %; NEUTROPHILS # (AUTO) 5.9 10^3/uL (1.5-6.6); NEUTROPHILS % (AUTO) 78.9 %; PLT - PLATELET COUNT 185 10^3/uL (130-450); RED BLOOD COUNT 4.94 10^6/uL (4.70-6.10); RED CELL DISTRIBUTION WIDTH 14.6 % (12.0-15.0); WHITE BLOOD COUNT 7.4 x10^3/uL (4.8-10.8)
[2017-11-12 05:53] LABS: PLATELET ESTIMATE, MANUAL NORMAL (130-450,000) (NORMAL); PLATELET MORPHOLOGY 1+ GIANT PLATELETS (NORMAL)
[2017-11-12] MEDS: ONDANSETRON 4 MG/2 ML VIAL IVP PRN ×2 (08:14→23:50)
[2017-11-12] MEDS: predniSONE 20 MG TABLET PO SCH (08:15)
[2017-11-12] MEDS: CITALOPRAM 10 MG TABLET PO SCH (08:15)
[2017-11-12] MEDS: MIDODRINE 2.5 MG TABLET PO SCH ×3 (08:15→16:22)
[2017-11-12] MEDS: METOPROLOL SUCCINATE 25 MG TABLET PO SCH ×2 (08:15→21:02)
[2017-11-12] MEDS: ASPIRIN EC 81 MG TABLET PO SCH (08:15)
[2017-11-12] MEDS: SPIRONOLACTONE 25 MG TABLET PO SCH (08:15)
[2017-11-12] MEDS: MULTIVITAMIN TABLET PO SCH (08:15)
[2017-11-12] MEDS: POLYETHYLENE GLYCOL 3350 17 GM PACKET PO SCH (08:16)
[2017-11-12 08:23] LABS: ALBUMIN 3.6 g/dL (3.2-5.5); ALBUMIN/GLOBULIN RATIO 1.4 (1.0-2.2); BILIRUBIN,TOTAL 1.4 mg/dL (0.2-1.0); CALCIUM 8.8 mg/dL (8.5-10.3); CREATININE 1.4 mg/dL (0.6-1.2); TOTAL PROTEIN 6.2 g/dL (6.7-8.2)
[2017-11-12] MEDS ORDERED: FUROSEMIDE 40 MG/4 ML VIAL IVP SCH (09:00)
[2017-11-12] MEDS: PANTOPRAZOLE 40 MG TABLET PO SCH (10:38)
[2017-11-12 11:05] LABS: INR 2.5 (0.8-1.2); PT - PROTHROMBIN TIME 27.1 secs (9.9-12.6)
[2017-11-12] MEDS: cefTRIAXone 2 GM in SODIUM CHLORIDE 0.9% MINIBAG 100 ML IV SCH (13:44)
--- NOTE | 2017-11-12 14:22 | PROVIDER PROGRESS NOTE ---
Subjective - Prog Note Date Prog Note Date: 11/12/17 - Subjective Pt reports feeling: Worse Subjective: pt feel some worsening symptoms today, complains of nausea and vomiting, feels fatigue. He denies chest pain, fever, chill. pt is waiting for replacement Current Medications - Current Medications Current Medications: Active Medications Aspirin (Ecotrin) 81 mg PO DAILY [facility] Last Admin: 11/12/17 08:15 Dose: 81 mg Citalopram Hydrobromide (Celexa) 40 mg PO DAILY [facility] Last Admin: 11/12/17 08:15 Dose: 40 mg Furosemide (Lasix Inj 40 Mg Vial) 40 mg IVP BIDDIURETIC [facility] Ceftriaxone Sodium 2 gm/ (Sodium Chloride) 100 mls @ 200 mls/hr IV Q24H [facility] Last Admin: 11/12/17 13:44 Dose: 200 mls/hr Levalbuterol HCl (Xopenex) 1.25 mg INH RTQ4H PRN PRN Reason: Wheezing Lorazepam (Ativan) 1 mg PO Q4H PRN PRN Reason: Anxiety Metoprolol Succinate (Toprol Xl) 50 mg PO BID [facility] Last Admin: 11/12/17 08:15 Dose: 50 mg Midodrine () 2.5 mg PO TIDWM [facility] Last Admin: 11/12/17 11:47 Dose: 2.5 mg Morphine Sulfate (Morphine (Carpuject)) 2 mg IVP Q2HR PRN PRN Reason: PAIN Morphine Sulfate (Roxanol) 10 mg PO Q2HR PRN PRN Reason: PAIN Last Admin: 11/11/17 21:29 Dose: 10 mg Multi-Ingredient Mouthwash/Gargle () 30 ml PO Q6H PRN PRN Reason: Heartburn Last Admin: 11/11/17 15:22 Dose: 30 ml Multivitamins (Theragran) 1 tab PO DAILY [facility] Last Admin: 11/12/17 08:15 Dose: 1 tab Ondansetron HCl (Zofran Inj) 4 mg IVP Q6HR PRN PRN Reason: Nausea / Vomiting Last Admin: 11/12/17 08:14 Dose: 4 mg Ondansetron HCl (Zofran Odt) 4 mg TL Q6HR PRN PRN Reason: Nausea / Vomiting Last Admin: 11/10/17 16:34 Dose: 4 mg Oxycodone HCl (Roxicodone) 5 mg PO Q4HR PRN PRN Reason: Pain 5 to 7 Pantoprazole Sodium (Protonix) 40 mg PO QDAC [facility] Last Admin: 11/12/17 10:38 Dose: 40 mg Polyethylene Glycol (Miralax) 17 gm PO DAILY [facility] Last Admin: 11/12/17 08:16 Dose: Not Given Prednisone (Deltasone) 20 mg PO DAILYWM [facility] Last Admin: 11/12/17 08:15 Dose: 20 mg Sodium Chloride (Normal Saline Flush 0.9%) 10 ml IVP PRN PRN PRN Reason: NEEDED PER PROVIDER ORDERS Last Admin: 11/11/17 14:16 Dose: 10 ml Sodium Chloride (Normal Saline Flush 0.9%) 10 ml IVP 0100,0900,1700 [facility] Last Admin: 11/12/17 08:16 Dose: 10 ml Spironolactone (Aldactone) 50 mg PO DAILY [facility] Last Admin: 11/12/17 08:15 Dose: 50 mg Warfarin [Coumadin] 5 mg PO DAILY 10/04/17 Amiodarone HCl 200 mg PO DAILY 11/05/17 Multivitamin [Theragran] 1 tab PO DAILY 11/05/17 Objective - Vital Signs/Intake & Output Vital Signs: Vital Signs x48h Temp Pulse Pulse Resp BP Pulse Ox 11/12/17 11:10 81 14 11/12/17 08:11 36.2 C L 85 16 93/78 97 Intake & Output: Intake & Output 11/09/17 11/10/17 11/11/17 11/12/17 23:59 23:59 23:59 23:59 Intake Total 740 1225 920 220 Output Total 1150 1600 1750 1180 Balance -410 -375 -830 -960 - Objective General Appearance: positive: Alert, Mild distress. negative: Lethargic Eyes Bilateral: positive: Normal inspection, PERRL, No lid inflammation, Conj unctivae nml ENT: positive: ENT inspection nml, Pharynx nml, No signs of dehydration. negative: Purulent nasal drainage, Pharyngeal erythema, Oral lesions Neck: positive: Nml inspection, Thyroid nml, No JVD, Trachea midline. negative: Thyromegaly, Lymphadenopathy (R), Lymphadenopathy (L), Swelling/bruising, Tracheal deviation Respiratory: positive: Chest non-tender, No respiratory distress, Breath sounds nml. negative: Wheezes, Rales, Rhonchi Cardiovascular: positive: Regular rate & rhythm, No murmur, No gallop. negative: Irregularly irregular, Extrasystoles, Tachycardia, Bradycardia, Syst olic murmur, Diastolic murmur Peripheral Pulses: 2+ Radial (R), 2+ Radial (L), 2+ Dorsalis pedis (R), 2+ Dorsalis pedis (L) Abdomen: positive: Non-tender, No organomegaly, Nml bowel sounds, No distention. negative: Tenderness, Guarding, Rebound Back: positive: Nml inspection. negative: CVA tenderness (R), CVA tenderness ( L) Skin: positive: Color nml, No rash, Warm, Dry. negative: Cyanosis, Diaphoresis, Pallor Extremities: positive: Non-tender, Full ROM, Nml appearance. negative: Calf tenderness, Joint swelling, Tahira's sign/cords Neurologic/Psychiatric: positive: Oriented x3, Motor nml, Sensation nml, Mood/affect nml. negative: Weakness, Sensory loss, Facial droop, Slurred/abnml speech, Depressed mood/affect - Lab Results Fish Bones: 11/12/17 04:45 11/12/17 04:45 Other Labs: Lab Results x24hrs 11/12/17 11/12/17 11/12/17 Range/Units 10:35 04:45 04:45 WBC (4.8-10.8) x10^3/uL RBC (4.70-6.10) 10^6/uL Hgb (14.0-18.0) g/dL Hct (42.0-52.0) % MCV (80.0-94.0) fL MCH (27.0-31.0) pg MCHC (32.0-36.0) g/dL RDW (12.0-15.0) % Plt Count (130-450) 10^3/uL MPV (7.4-11.4) fL Neut # (Auto) (1.5-6.6) 10^3/uL Lymph # (Auto) (1.5-3.5) 10^3/uL [place] # (Auto) (0.0-1.0) 10^3/uL Eos # (Auto) (0.0-0.7) 10^3/uL Baso # (Auto) (0.0-0.1) 10^3/uL Absolute Nucleated RBC x10^3/uL Nucleated RBC % /100WBC Platelet Estimate (NORMAL) Platelet Morphology (NORMAL) PT 27.1 H (9.9-12.6) secs INR 2.5 H (0.8-1.2) Sodium 124 L (135-145) mmol/L Potassium 4.4 (3.5-5.0) mmol/L Chloride 89 L (101-111) mmol/L Carbon Dioxide 23 (21-32) mmol/L Anion Gap 12.0 (6-13) BUN 43 H (6-20) mg/dL Creatinine 1.4 H (0.6-1.2) mg/dL Estimated GFR (MDRD) 52 L (>89) Glucose 107 H (70-100) mg/dL Calcium 8.8 (8.5-10.3) mg/dL Total Bilirubin 1.4 H (0.2-1.0) mg/dL AST 45 H (10-42) IU/L ALT 70 H (10-60) IU/L Alkaline Phosphatase 153 H (42-121) IU/L B-Natriuretic Peptide 9001.00 H (5-100) pg/mL Total Protein 6.2 L (6.7-8.2) g/dL Albumin 3.6 (3.2-5.5) g/dL Globulin 2.6 (2.1-4.2) g/dL Albumin/Globulin Ratio 1.4 (1.0-2.2) 11/12/17 Range/Units 04:45 WBC 7.4 (4.8-10.8) x10^3/uL RBC 4.94 (4.70-6.10) 10^6/uL Hgb 17.0 (14.0-18.0) g/dL Hct 50.1 (42.0-52.0) % MCV 101.4 H (80.0-94.0) fL MCH 34.4 H (27.0-31.0) pg MCHC 33.9 (32.0-36.0) g/dL RDW 14.6 (12.0-15.0) % Plt Count 185 (130-450) 10^3/uL MPV 10.0 (7.4-11.4) fL Neut # (Auto) 5.9 (1.5-6.6) 10^3/uL Lymph # (Auto) 0.8 L (1.5-3.5) 10^3/uL [place] # (Auto) 0.7 (0.0-1.0) 10^3/uL Eos # (Auto) 0.0 (0.0-0.7) 10^3/uL Baso # (Auto) 0.0 (0.0-0.1) 10^3/uL Absolute Nucleated RBC 0.01 x10^3/uL Nucleated RBC % 0.1 /100WBC Platelet Estimate NORMAL (130-450,000) (NORMAL) Platelet Morphology 1+ GIANT PLATELETS (NORMAL) PT (9.9-12.6) secs INR (0.8-1.2) Sodium (135-145) mmol/L Potassium (3.5-5.0) mmol/L Chloride (101-111) mmol/L Carbon Dioxide (21-32) mmol/L Anion Gap (6-13) BUN (6-20) mg/dL Creatinine (0.6-1.2) mg/dL Estimated GFR (MDRD) (>89) Glucose (70-100) mg/dL Calcium (8.5-10.3) mg/dL Total Bilirubin (0.2-1.0) mg/dL AST (10-42) IU/L ALT (10-60) IU/L Alkaline Phosphatase (42-121) IU/L B-Natriuretic Peptide (5-100) pg/mL Total Protein (6.7-8.2) g/dL Albumin (3.2-5.5) g/dL Globulin (2.1-4.2) g/dL Albumin/Globulin Ratio (1.0-2.2) ABX Reporting Has patient been on IV antibiotics over the past 48 hours?: Yes Assessment/Plan - Problem List (1) Right lower lobe pneumonia Impression: 1) Right lower lobe pneumonia Impression: 11/12 continue IV of Rocephin. No fever, chill, WBC is normal 11/11 95% sat on room air, no fever, chill, WBC is normal. continue antibiotics 11/10 pt's WBC is normal, 98% sats at 1 liter of O2, no fever, chill, cough. may switch to PO antibiotics, if continue improved The patient began at least 48 hours ago with a cough, increased breathing efforts, and overall fatigue. The patient complained of slight nausea and dizziness. He continues to have coarse crackles that are not clearing with incentive spirometer or new xopenex nebs, despite being on BID IV lasix. Imaging was ordered and confirms a new right low lobe pneumonia with pleural effusions. He has been afebrile, but certainly is feeling worse, which is only slightly improved today. Due to his worsening ESTEVAN, the patient was changed from Zosyn to Rocephin. Plan: Continue respiratory care, start Rocephin IV, and monitor for improvement. pt is waiting for replacement. It is reason why pt is extended to stay in the hospital. (2) Hypotension Impression: 11/12, a little better, SBP is more than 90 continue vital monitor, hold Lisinopril 11/11, pt's EF <20%, SBP is at 82, SBP around 80-90 are still acceptable as pt is asymptomatic. will hold Lisinopril, and reduce Lasix to 40 mg daily continue vital, tele monitor pt's EF <20%, SBP is around at 90 as his baseline The patient is now symptomatic with his hypotension and has a baseline systolic blood pressure in the 90's. After a further review of his chart and medi cations, we have added Midodrine 2.5mg TID with meals to help with this. Plan: Continue to monitor vital signs and await chest x-ray. 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 consult with palliative care per pt's request, will followup 11/10 EF less 20%, poor response to diuretic and other treatment treatment, and with acute on chronic renal insufficiency. pt seek palliative care, will support The patient's BNP on admission was elevated at 4683, and remains elevated at ~8966. This abnormality is influenced by his kidney function, so it is somewhat expected with the IV lasix that he has been given during this stay. Clinically, the patient appears improved as his BLE edema is reduced, but remains with abdominal edema and crackles in his lungs with oxygen requirements. His abdominal edema is slightly worse each day. He is more hypoxic, has increased breathing efforts, mildly nauseated and has increased fatigue. He continues on BID IV lasix at 40mg. He continues on metoprolol, which was increased from 25 to 50mg. Amioderone was discontinued as this would be useful to keep him in a sinus rhythm, but not to attempt to convert him out of atrial fibrillation. Plan: Continue to monitor fluid status, monitor urine out put, and daily weights. (4) ESTEVAN (acute kidney injury) Impression: improved as base line stable now as the baseline continue lab monitor slight increase of creatinine because of the distress of diuretics. will hold diuretics as pt's fluid overload is controlled. The patient has had a steady decline in his kidney function and upon admission was found to have an elevated creatinine of 1.4, that is worse at 1.4. The GFR was reduced at 52. He continues on IV lasix with BID dosing, and his leg edema is much improved. Urine output has been charted today at 700ml since midnight. Antibiotic choice was changed to avoid further ESTEVAN. Plan: Continue daily labs, weights, and strict I/Os. (5) Atrial fibrillation with RVR Impression: stable on and off, intermittent afib with RVR. continue beta-cayden, continue monitor The patient has been in this rhythm for at least the past 2 admissions. His rates reach 120-150's at times. He recently had a cardiology consult with Dr. Pickett in [place] who plans to do a cardioversion after the patient is anticoagulated for a while. The patient denies palpitations, chest pain or tightness. He remains on telemetry and is tachycardic with heart rates in the 90's. His metoprolol dose was increased from 20 to 50mg, and the patient had symptomatic hypotension and was started on Midodrine. Despite my advanced care planning talk with the patient, he still wishes for us to call Dr. Pickett prior to discharge to see about his upcoming cardioversion. Plan: Continue rate control meds. (6) Do not resuscitate Impression: The patient was informed today that he more likely has less than one year to live based on his multi-organ dysfunction and his extremely poor heart function. Plan: Continue DNR code status, and have ongoing conversations, consider palliative care consult. (7) Homelessness Impression: The patient frequently reminds the medical team of this fact and has been set up with community resources when he is not in the hospital. He states that he has been homeless for at least the past year due to rent amounts going too high. Plan: Continue to treat this acute illness, and social work support for u pcoming discharge. (8) Elevated LFTs Impression: 11/11 stable, pt is Hep C positive, which can cause elevated LFTs The patient had very elevated LFTs with an AST/ALT of 128/181, that have improved. This abnormality was likely a result of his newly diagnosed Hep C. The patient does not appear jaundice, but does have bronze skin tone. An abdominal US was ordered and shows moderate ascities, hepatomegaly with mildly contour and imhomogeneous echotexture, without any focal liver lesions. Plan: Continue to monitor, and avoid liver toxic meds. HIV test is pending. (9) Hyponatremia Impression: 11/10, chronic lower of Na, continue to support. chronic hyponatremia indicates poor prognosis as well. The patient was found to have a low sodium level of 127, that remains the same at 126. This is likely a consequence of his fluid imbalance. The patient is not thought to have altered mental status as compared to previous admissions. He continues on his IV lasix BID. Plan: Continue to monitor daily labs. (10) Chronic anticoagulation Impression: 11/10 hold Coumadin now. INR is 4.3 today. Hold coumadin The patient is on Warfarin at 5mg PO daily, but was placed on hold today for an INR of 3.3. The patient believes if he stays on anticoagulation, he will get a cardioversion for his atrial fibrillation as per Dr. Pickett who has recently had a clinic visit with him. Plan: Continue daily INRs, and resume daily Coumadin as per daily INR results. (11) Hepatitis C Impression: continue support Blood testing including Hep C antibody and AB signal cutoff, show +disease. The patient had very elevated LFTs upon admission, which are gradually improved each day. It is recommended that if someone tests positive for Hep C, they s hould also undergo testing for HIV. The patient was surprised to hear that he is Hep C positive and states that he has never injected drugs and has not had a sexual partner in several years. I will recommend that the patient be referred for further hepatology testing via PCP, unless he chooses a path of Palliative/Hospice care. Plan: Provide education, await HIV lab, and monitor LFTs.
[2017-11-12 14:57] LABS: HCV RNA QNT <1.18 NOT DETECTED Log IU/mL (NOT DETECTED); HCV RNA QUANT RT PCR <15 NOT DETECTED IU/mL (NOT DETECTED)
[2017-11-12] MEDS: FUROSEMIDE 40 MG/4 ML VIAL IVP SCH (16:22)
[2017-11-12] MEDS: MORPHINE 2 MG/ML CARPUJECT IVP PRN ×2 (16:29→23:51)
[2017-11-12] MEDS: SODIUM CHLORIDE FLUSH 0.9% 10 ML SYRINGE IVP PRN ×2 (16:30→23:50)
[2017-11-12] MEDS ORDERED: cephALEXin 250 MG CAPSULE PO SCH (21:00)
[2017-11-13 06:11] LABS: BASOPHILS % (AUTO) 0.3 %; HGB - HEMOGLOBIN 16.8 g/dL (14.0-18.0); LYMPHOCYTES # (AUTO) 1.1 10^3/uL (1.5-3.5); LYMPHOCYTES % (AUTO) 13.6 %; MEAN CORPUSCULAR HEMOGLOBIN 34.2 pg (27.0-31.0); MEAN CORPUSCULAR HGB CONC 33.3 g/dL (32.0-36.0); MEAN CORPUSCULAR VOLUME 102.7 fL (80.0-94.0); MEAN PLATELET VOLUME 10.4 fL (7.4-11.4); MONOCYTES # (AUTO) 0.9 10^3/uL (0.0-1.0); MONOCYTES % (AUTO) 10.5 %; NEUTROPHILS # (AUTO) 6.1 10^3/uL (1.5-6.6); NEUTROPHILS % (AUTO) 75.6 %; PLT - PLATELET COUNT 175 10^3/uL (130-450); RED BLOOD COUNT 4.92 10^6/uL (4.70-6.10); RED CELL DISTRIBUTION WIDTH 14.7 % (12.0-15.0); WHITE BLOOD COUNT 8.1 x10^3/uL (4.8-10.8)
[2017-11-13 06:12] LABS: INR 2.8 (0.8-1.2); PT - PROTHROMBIN TIME 30.4 secs (9.9-12.6)
[2017-11-13] MEDS: FUROSEMIDE 40 MG/4 ML VIAL IVP SCH ×2 (06:16→14:05)
[2017-11-13] MEDS: MORPHINE SOL 10 MG/0.5 ML SYRINGE PO PRN (06:16)
[2017-11-13] MEDS: SODIUM CHLORIDE FLUSH 0.9% 10 ML SYRINGE IVP PRN ×4 (06:16→20:33)
[2017-11-13] MEDS: PANTOPRAZOLE 40 MG TABLET PO SCH (06:16)
[2017-11-13 06:19] LABS: ALBUMIN 3.4 g/dL (3.2-5.5); ALBUMIN/GLOBULIN RATIO 1.4 (1.0-2.2); BILIRUBIN,TOTAL 1.8 mg/dL (0.2-1.0); CALCIUM 8.9 mg/dL (8.5-10.3); CREATININE 1.5 mg/dL (0.6-1.2); TOTAL PROTEIN 5.8 g/dL (6.7-8.2)
[2017-11-13 06:30] LABS: PLATELET ESTIMATE, MANUAL NORMAL (130-450,000) (NORMAL); PLATELET MORPHOLOGY 1+ GIANT PLATELETS (NORMAL)
[2017-11-13] MEDS: MULTIVITAMIN TABLET PO SCH (08:24)
[2017-11-13] MEDS: ASPIRIN EC 81 MG TABLET PO SCH (08:24)
[2017-11-13] MEDS: MIDODRINE 2.5 MG TABLET PO SCH ×3 (08:24→16:52)
[2017-11-13] MEDS: CITALOPRAM 10 MG TABLET PO SCH (08:25)
[2017-11-13] MEDS: DOCUSATE SODIUM 250 MG CAPSULE PO SCH (08:25)
[2017-11-13] MEDS: SPIRONOLACTONE 25 MG TABLET PO SCH (08:25)
[2017-11-13] MEDS: predniSONE 20 MG TABLET PO SCH (08:25)
[2017-11-13] MEDS: SODIUM CHLORIDE FLUSH 0.9% 10 ML SYRINGE IVP SCH ×2 (08:25→15:39)
[2017-11-13] MEDS: POLYETHYLENE GLYCOL 3350 17 GM PACKET PO SCH (08:25)
[2017-11-13] MEDS: METOPROLOL SUCCINATE 25 MG TABLET PO SCH ×3 (08:25→21:43)
[2017-11-13] MEDS: SENNA 8.6 MG TABLET PO SCH (08:25)
[2017-11-13] MEDS: MORPHINE 2 MG/ML CARPUJECT IVP PRN ×3 (11:38→18:56)
[2017-11-13] MEDS: cefTRIAXone 2 GM in SODIUM CHLORIDE 0.9% MINIBAG 100 ML IV SCH (14:00)
--- NOTE | 2017-11-13 14:09 | PROVIDER PROGRESS NOTE ---
Subjective - Prog Note Date Prog Note Date: 11/13/17 - Subjective Pt reports feeling: No change Subjective: pt is waiting for replacement. pt state he feels the same, very fatigue, feel SOB at exertion. pt recognize the severity of his heart medical condition. He denies fever, chill, chest pain. Current Medications - Current Medications Current Medications: Active Medications Aspirin (Ecotrin) 81 mg PO DAILY [facility] Last Admin: 11/13/17 08:24 Dose: 81 mg Citalopram Hydrobromide (Celexa) 40 mg PO DAILY [facility] Last Admin: 11/13/17 08:25 Dose: 40 mg Docusate Sodium (Colace 250mg Capsule) 250 - 500 mg PO DAILY [facility] Last Admin: 11/13/17 08:25 Dose: 500 mg Furosemide (Lasix Inj 40 Mg Vial) 40 mg IVP BIDDIURETIC [facility] Last Admin: 11/13/17 14:05 Dose: 40 mg Ceftriaxone Sodium 2 gm/ (Sodium Chloride) 100 mls @ 200 mls/hr IV Q24H [facility] Last Infusion: 11/13/17 14:05 Dose: Infused Levalbuterol HCl (Xopenex) 1.25 mg INH RTQ4H PRN PRN Reason: Wheezing Lorazepam (Ativan) 1 mg PO Q4H PRN PRN Reason: Anxiety Metoprolol Succinate (Toprol Xl) 50 mg PO BID [facility] Last Admin: 11/13/17 08:25 Dose: 50 mg Midodrine () 2.5 mg PO TIDWM [facility] Last Admin: 11/13/17 11:34 Dose: 2.5 mg Morphine Sulfate (Morphine (Carpuject)) 2 mg IVP Q2HR PRN PRN Reason: PAIN Last Admin: 11/13/17 11:38 Dose: 2 mg Morphine Sulfate (Roxanol) 10 mg PO Q2HR PRN PRN Reason: PAIN Last Admin: 11/13/17 06:16 Dose: 10 mg Multi-Ingredient Mouthwash/Gargle () 30 ml PO Q6H PRN PRN Reason: Heartburn Last Admin: 11/11/17 15:22 Dose: 30 ml Multivitamins (Theragran) 1 tab PO DAILY [facility] Last Admin: 11/13/17 08:24 Dose: 1 tab Ondansetron HCl (Zofran Inj) 4 mg IVP Q6HR PRN PRN Reason: Nausea / Vomiting Last Admin: 11/12/17 23:50 Dose: 4 mg Ondansetron HCl (Zofran Odt) 4 mg TL Q6HR PRN PRN Reason: Nausea / Vomiting Last Admin: 11/10/17 16:34 Dose: 4 mg Oxycodone HCl (Roxicodone) 5 mg PO Q4HR PRN PRN Reason: Pain 5 to 7 Pantoprazole Sodium (Protonix) 40 mg PO QDAC [facility] Last Admin: 11/13/17 06:16 Dose: 40 mg Polyethylene Glycol (Miralax) 17 gm PO DAILY [facility] Last Admin: 11/13/17 08:25 Dose: Not Given Prednisone (Deltasone) 20 mg PO DAILYWM [facility] Last Admin: 11/13/17 08:25 Dose: 20 mg Senna (Senokot) 8.6 - 17.2 mg PO DAILY [facility] Last Admin: 11/13/17 08:25 Dose: 17.2 mg Sodium Chloride (Normal Saline Flush 0.9%) 10 ml IVP PRN PRN PRN Reason: NEEDED PER PROVIDER ORDERS Last Admin: 11/13/17 06:17 Dose: 10 ml Sodium Chloride (Normal Saline Flush 0.9%) 10 ml IVP 0100,0900,1700 [facility] Last Admin: 11/13/17 08:25 Dose: 10 ml Spironolactone (Aldactone) 50 mg PO DAILY [facility] Last Admin: 11/13/17 08:25 Dose: 50 mg Warfarin [Coumadin] 5 mg PO DAILY 10/04/17 Amiodarone HCl 200 mg PO DAILY 11/05/17 Multivitamin [Theragran] 1 tab PO DAILY 11/05/17 Objective - Vital Signs/Intake & Output Reviewed Vital Signs: Yes Vital Signs: Vital Signs x48h Temp Pulse Resp BP Pulse Ox 11/13/17 13:00 36.3 C L 91 20 84/67 L 94 11/13/17 07:53 36.2 C L 84 18 83/63 L 90 L Intake & Output: Intake & Output 11/10/17 11/11/17 11/12/17 11/13/17 23:59 23:59 23:59 23:59 Intake Total 1225 920 670 400 Output Total 1600 1750 1280 550 Balance -375 -830 -610 -150 - Objective General Appearance: positive: No acute distress, Alert. negative: Lethargic Eyes Bilateral: positive: Normal inspection, PERRL, No lid inflammation, Conjunctivae nml ENT: positive: ENT inspection nml, Pharynx nml, No signs of dehydration. nega tive: Purulent nasal drainage Neck: positive: Nml inspection, Thyroid nml, No JVD, Trachea midline. negative: Thyromegaly, Lymphadenopathy (R), Lymphadenopathy (L), Stiff neck, Swelling/bruising, Tracheal deviation Respiratory: positive: Chest non-tender, No respiratory distress, Breath sounds nml. negative: Wheezes, Rales, Rhonchi Cardiovascular: positive: Regular rate & rhythm, No murmur, No gallop. negative: Irregularly irregular, Extrasystoles, Tachycardia, Bradycardia, JVD present, Systolic murmur, Diastolic murmur Peripheral Pulses: 2+ Radial (R), 2+ Radial (L), 2+ Dorsalis pedis (R), 2+ Dorsalis pedis (L) Abdomen: positive: Non-tender, No organomegaly, Nml bowel sounds, No distention. negative: Tenderness, Guarding, Rebound Back: positive: Nml inspection. negative: CVA tenderness (R), CVA tenderness (L) Skin: positive: Color nml, No rash, Warm, Dry. negative: Cyanosis, Diaphoresis, Pallor Extremities: positive: Non-tender, Full ROM, Nml appearance. negative: Calf tenderness, Joint swelling, Tahira's sign/cords Neurologic/Psychiatric: positive: Oriented x3, Motor nml, Sensation nml, Mood/affect nml. negative: Sensory loss, Facial droop, Slurred/abnml speech, Depressed mood/affect - Lab Results Fish Bones: 11/13/17 04:35 11/13/17 04:35 Other Labs: Lab Results x24hrs 11/13/17 11/13/17 11/13/17 Range/Units 04:35 04:35 04:35 WBC (4.8-10.8) x10^3/uL RBC (4.70-6.10) 10^6/uL Hgb (14.0-18.0) g/dL Hct (42.0-52.0) % MCV (80.0-94.0) fL MCH (27.0-31.0) pg MCHC (32.0-36.0) g/dL RDW (12.0-15.0) % Plt Count (130-450) 10^3/uL MPV (7.4-11.4) fL Neut # (Auto) (1.5-6.6) 10^3/uL Lymph # (Auto) (1.5-3.5) 10^3/uL [place] # (Auto) (0.0-1.0) 10^3/uL Eos # (Auto) (0.0-0.7) 10^3/uL Baso # (Auto) (0.0-0.1) 10^3/uL Absolute Nucleated RBC x10^3/uL Nucleated RBC % /100WBC Platelet Estimate (NORMAL) Platelet Morphology (NORMAL) PT 30.4 H (9.9-12.6) secs INR 2.8 H (0.8-1.2) Sodium 127 L (135-145) mmol/L Potassium 4.7 (3.5-5.0) mmol/L Chloride 89 L (101-111) mmol/L Carbon Dioxide 24 (21-32) mmol/L Anion Gap 14.0 H (6-13) BUN 45 H (6-20) mg/dL Creatinine 1.5 H (0.6-1.2) mg/dL Estimated GFR (MDRD) 48 L (>89) Glucose 120 H (70-100) mg/dL Calcium 8.9 (8.5-10.3) mg/dL Total Bilirubin 1.8 H (0.2-1.0) mg/dL AST 45 H (10-42) IU/L ALT 70 H (10-60) IU/L Alkaline Phosphatase 132 H (42-121) IU/L B-Natriuretic Peptide 9001.00 H (5-100) pg/mL Total Protein 5.8 L (6.7-8.2) g/dL Albumin 3.4 (3.2-5.5) g/dL Globulin 2.4 (2.1-4.2) g/dL Albumin/Globulin Ratio 1.4 (1.0-2.2) HCV RNA (PCR) IUs/ml (NOT DETECTED) IU/mL HCV RNA PCR log IUs/ml (NOT DETECTED) Log IU/mL Hepatitis C RNA Comment 11/13/17 11/10/17 Range/Units 04:35 06:00 WBC 8.1 (4.8-10.8) x10^3/uL RBC 4.92 (4.70-6.10) 10^6/uL Hgb 16.8 (14.0-18.0) g/dL Hct 50.6 (42.0-52.0) % MCV 102.7 H (80.0-94.0) fL MCH 34.2 H (27.0-31.0) pg MCHC 33.3 (32.0-36.0) g/dL RDW 14.7 (12.0-15.0) % Plt Count 175 (130-450) 10^3/uL MPV 10.4 (7.4-11.4) fL Neut # (Auto) 6.1 (1.5-6.6) 10^3/uL Lymph # (Auto) 1.1 L (1.5-3.5) 10^3/uL [place] # (Auto) 0.9 (0.0-1.0) 10^3/uL Eos # (Auto) 0.0 (0.0-0.7) 10^3/uL Baso # (Auto) 0.0 (0.0-0.1) 10^3/uL Absolute Nucleated RBC 0.01 x10^3/uL Nucleated RBC % 0.2 /100WBC Platelet Estimate NORMAL (130-450,000) (NORMAL) Platelet Morphology 1+ GIANT PLATELETS (NORMAL) PT (9.9-12.6) secs INR (0.8-1.2) Sodium (135-145) mmol/L Potassium (3.5-5.0) mmol/L Chloride (101-111) mmol/L Carbon Dioxide (21-32) mmol/L Anion Gap (6-13) BUN (6-20) mg/dL Creatinine (0.6-1.2) mg/dL Estimated GFR (MDRD) (>89) Glucose (70-100) mg/dL Calcium (8.5-10.3) mg/dL Total Bilirubin (0.2-1.0) mg/dL AST (10-42) IU/L ALT (10-60) IU/L Alkaline Phosphatase (42-121) IU/L B-Natriuretic Peptide (5-100) pg/mL Total Protein (6.7-8.2) g/dL Albumin (3.2-5.5) g/dL Globulin (2.1-4.2) g/dL Albumin/Globulin Ratio (1.0-2.2) HCV RNA (PCR) IUs/ml <15 NOT DETECTED (NOT DETECTED) IU/mL HCV RNA PCR log IUs/ml <1.18 NOT DETECTED (NOT DETECTED) Log IU/mL Hepatitis C RNA Comment SEE NOTE ABX Reporting Has patient been on IV antibiotics over the past 48 hours?: Yes Assessment/Plan - Problem List (1) Right lower lobe pneumonia Impression: 11/13, CXR indicate right lung pneumonia, un-change change to cefepime 11/12 continue IV of Rocephin. No fever, chill, WBC is normal 11/11 95% sat on room air, no fever, chill, WBC is normal. continue antibiotics 11/10 pt's WBC is normal, 98% sats at 1 liter of O2, no fever, chill, cough. may switch to PO antibiotics, if continue improved The patient began at least 48 hours ago with a cough, increased breathing efforts, and overall fatigue. The patient complained of slight nausea and dizziness. He continues to have coarse crackles that are not clearing with incentive spirometer or new xopenex nebs, despite being on BID IV lasix. Imaging was ordered and confirms a new right low lobe pneumonia with pleural effusions. He has been afebrile, but certainly is feeling worse, which is only slightly improved today. Due to his worsening ESTEVAN, the patient was changed from Zosyn to Rocephin. Plan: Continue respiratory care, start Rocephin IV, and monitor for improvement. pt is waiting for replacement. It is reason why pt is extended to stay in the hospital. (2) Hypotension Impression: 11/13 pt is asymptomatic, pt's SBP is between 80-90. but pt had EF <20% 11/12, a little better, SBP is more than 90 continue vital monitor, hold Lisinopril 11/11, pt's EF <20%, SBP is at 82, SBP around 80-90 are still acceptable as pt is asymptomatic. will hold Lisinopril, and reduce Lasix to 40 mg daily continue vital, tele monitor pt's EF <20%, SBP is around at 90 as his baseline The patient is now symptomatic with his hypotension and has a baseline systolic blood pressure in the 90's. After a further review of his chart and medications, we have added Midodrine 2.5mg TID with meals to help with this. Plan: Continue to monitor vital signs and await chest x-ray. (3) Acute combined systolic and diastolic CHF, NYHA class 3 Impression: 11/13, continue fluid restriction, low sodium diet, daily weight continue lasix IV bid 11/12 BNP increase, continue diuretics Lasic IV 40 mg bid, daily lab monitor tried to reach pt's stopboard assembler for advance care plan but could not reach. consult with palliative care per pt's request, will followup 11/10 EF less 20%, poor response to diuretic and other treatment treatment, and with acute on chronic renal insufficiency. pt seek palliative care, will support The patient's BNP on admission was elevated at 4683, and remains elevated at ~8966. This abnormality is influenced by his kidney function, so it is somewhat expected with the IV lasix that he has been given during this stay. Clinically, the patient appears improved as his BLE edema is reduced, but remains with abdominal edema and crackles in his lungs with oxygen requirements. His abdominal edema is slightly worse each day. He is more hypoxic, has increased breathing efforts, mildly nauseated and has increased fatigue. He continues on BID IV lasix at 40mg. He continues on metoprolol, which was increased from 25 to 50mg. Amioderone was discontinued as this would be useful to keep him in a sinus rhythm, but not to attempt to convert him out of atrial fibrillation. Plan: Continue to monitor fluid status, monitor urine out put, and daily weights. (4) ESTEVAN (acute kidney injury) Impression: improved as base line stable now as the baseline continue lab monitor slight increase of creatinine because of the distress of diuretics. will hold diuretics as pt's fluid overload is controlled. The patient has had a steady decline in his kidney function and upon admission was found to have an elevated creatinine of 1.4, that is worse at 1.4. The GFR was reduced at 52. He continues on IV lasix with BID dosing, and his leg edema is much improved. Urine output has been charted today at 700ml since midnight. Antibiotic choice was changed to avoid further ESTEVAN. Plan: Continue daily labs, weights, and strict I/Os. (5) Atrial fibrillation with RVR Impression: stable on and off, intermittent afib with RVR. continue beta-cayden, continue monitor The patient has been in this rhythm for at least the past 2 admissions. His rates reach 120-150's at times. He recently had a cardiology consult with Dr. Pickett in [place] who plans to do a cardioversion after the patient is a nticoagulated for a while. The patient denies palpitations, chest pain or tightness. He remains on telemetry and is tachycardic with heart rates in the 90's. His metoprolol dose was increased from 20 to 50mg, and the patient had symptomatic hypotension and was started on Midodrine. Despite my advanced care planning talk with the patient, he still wishes for us to call Dr. Pickett prior to discharge to see about his upcoming cardioversion. Plan: Continue rate control meds. (6) Do not resuscitate Impression: The patient was informed today that he more likely has less than one year to live based on his multi-organ dysfunction and his extremely poor heart function. Plan: Continue DNR code status, and have ongoing conversations, consider palliative care consult. (7) Homelessness Impression: The patient frequently reminds the medical team of this fact and has been set up with community resources when he is not in the hospital. He states that he has been homeless for at least the past year due to rent amounts going too high. Plan: Continue to treat this acute illness, and [place] [facility] (8) Elevated LFTs Impression: 11/11 stable, pt is Hep C positive, which can cause elevated LFTs The patient had very elevated LFTs with an AST/ALT of 128/181, that have improved. This abnormality was likely a result of his newly diagnosed Hep C. The patient does not appear jaundice, but does have bronze skin tone. An abdominal US was ordered and shows moderate ascities, hepatomegaly with mildly contour and imhomogeneous echotexture, without any focal liver lesions. Plan: Continue to monitor, and avoid liver toxic meds. HIV test is pending. (9) Hyponatremia Impression: 11/13 Na 127, chronic closely to his baseline 10/2, chronic lower of Na, continue to support. chronic hyponatremia indicates poor prognosis as well. The patient was found to have a low sodium level of 127, that remains the same at 126. This is likely a consequence of his fluid imbalance. The patient is not thought to have altered mental status as compared to previous admissions. He continues on his IV lasix BID. Plan: Continue to monitor daily labs. (10) Chronic anticoagulation Impression: 11/13 daily lab monitor, today INR 2.8, still hold coumadin check daily 11/10 hold Coumadin now. INR is 4.3 today. Hold coumadin The patient is on Warfarin at 5mg PO daily, but was placed on hold today for an INR of 3.3. The patient believes if he stays on anticoagulation, he will get a cardioversion for his atrial fibrillation as per Dr. Pickett who has recently had a clinic visit with him. Plan: Continue daily INRs, and resume daily Coumadin as per daily INR results. (11) Hepatitis C Impression: continue support Blood testing including Hep C antibody and AB signal cutoff, show +disease. The patient had very elevated LFTs upon admission, which are gradually improved each day. It is recommended that if someone tests positive for Hep C, they should also undergo testing for HIV. The patient was surprised to hear that he is Hep C positive and states that he has never injected drugs and has not had a sexual partner in several years. I will recommend that the patient be referred for further hepatology testing via PCP, unless he chooses a path of Palliative/Hospice care. Plan: Provide education, await HIV lab, and monitor LFTs.
--- NOTE | 2017-11-13 14:21 | XRAY Report ---
Reason: SOB Procedure Date: 11/13/2017 Accession Number: [id number] / [id number] Procedure: XR - Chest 1 View X-Ray CPT Code: 47725 FULL RESULT: EXAM: CHEST RADIOGRAPHY EXAM DATE: 11/13/2017 09:38 AM. CLINICAL HISTORY: Shortness of breath. COMPARISON: CHEST 1 VIEW 11/08/2017 3:45 PM. TECHNIQUE: 1 view. FINDINGS: Lungs/Pleura: Redemonstration of right basilar opacities with a component of pleural effusion suspected, accounting for differences in technique similar to 11/08/2017. Mediastinum: Cardiomegaly is redemonstrated, essentially unchanged. Other: None. IMPRESSION: Overall essentially unchanged radiographic appearance. Right lower lung findings are compatible with pneumonia with effusion but not specific for this. [facility]
[2017-11-13] MEDS: CEFEPIME 2 GM in SODIUM CHLORIDE 0.9% MINIBAG 100 ML IV SCH (20:33)
[2017-11-13] MEDS: GI COCKTAIL 120 ML BOTTLE PO PRN (20:34)
[2017-11-14] MEDS: SODIUM CHLORIDE FLUSH 0.9% 10 ML SYRINGE IVP SCH ×4 (00:48→22:07)
[2017-11-14] MEDS: FUROSEMIDE 40 MG/4 ML VIAL IVP SCH (05:49)
[2017-11-14 06:11] LABS: BASOPHILS % (AUTO) 0.2 %; EOSINOPHILS % (AUTO) 0.1 %; HGB - HEMOGLOBIN 17.7 g/dL (14.0-18.0); LYMPHOCYTES # (AUTO) 0.9 10^3/uL (1.5-3.5); LYMPHOCYTES % (AUTO) 10.4 %; MEAN CORPUSCULAR HEMOGLOBIN 34.5 pg (27.0-31.0); MEAN CORPUSCULAR HGB CONC 33.5 g/dL (32.0-36.0); MEAN CORPUSCULAR VOLUME 103.1 fL (80.0-94.0); MEAN PLATELET VOLUME 10.1 fL (7.4-11.4); MONOCYTES # (AUTO) 0.8 10^3/uL (0.0-1.0); MONOCYTES % (AUTO) 8.7 %; NEUTROPHILS % (AUTO) 80.6 %; PLT - PLATELET COUNT 173 10^3/uL (130-450); RED BLOOD COUNT 5.12 10^6/uL (4.70-6.10); RED CELL DISTRIBUTION WIDTH 14.6 % (12.0-15.0); WHITE BLOOD COUNT 8.7 x10^3/uL (4.8-10.8)
[2017-11-14 06:20] LABS: ALBUMIN 3.8 g/dL (3.2-5.5); ALBUMIN/GLOBULIN RATIO 1.4 (1.0-2.2); CALCIUM 9.1 mg/dL (8.5-10.3); CREATININE 1.8 mg/dL (0.6-1.2); TOTAL PROTEIN 6.6 g/dL (6.7-8.2)
[2017-11-14] MEDS: PANTOPRAZOLE 40 MG TABLET PO SCH (06:31)
[2017-11-14] MEDS: MIDODRINE 2.5 MG TABLET PO SCH ×3 (07:58→17:08)
[2017-11-14] MEDS: predniSONE 20 MG TABLET PO SCH (07:59)
[2017-11-14] MEDS ORDERED: FUROSEMIDE 40 MG/4 ML VIAL IVP SCH (09:00)
[2017-11-14] MEDS: MULTIVITAMIN TABLET PO SCH (09:42)
[2017-11-14] MEDS: ASPIRIN EC 81 MG TABLET PO SCH (09:42)
[2017-11-14] MEDS: CITALOPRAM 10 MG TABLET PO SCH (09:42)
[2017-11-14] MEDS: POLYETHYLENE GLYCOL 3350 17 GM PACKET PO SCH (09:43)
[2017-11-14] MEDS: CEFEPIME 2 GM in SODIUM CHLORIDE 0.9% MINIBAG 100 ML IV SCH ×2 (09:43→22:08)
[2017-11-14] MEDS: SENNA 8.6 MG TABLET PO SCH (09:43)
[2017-11-14] MEDS: DOCUSATE SODIUM 250 MG CAPSULE PO SCH (09:43)
[2017-11-14] MEDS: MORPHINE 2 MG/ML CARPUJECT IVP PRN ×2 (10:00→22:56)
[2017-11-14] MEDS: SODIUM CHLORIDE FLUSH 0.9% 10 ML SYRINGE IVP PRN ×3 (10:01→22:56)
[2017-11-14] MEDS: METOPROLOL SUCCINATE 25 MG TABLET PO SCH ×2 (10:17→14:37)
[2017-11-14] MEDS: SPIRONOLACTONE 25 MG TABLET PO SCH (10:17)
--- NOTE | 2017-11-14 13:00 | PROVIDER PROGRESS NOTE ---
Subjective - Prog Note Date Prog Note Date: 11/14/17 - Subjective Pt reports feeling: No change Subjective: pt still complains of SOB on exertion, but the swelling on his bilateral lower extremities were much improved. pt denies fever, chill, CP pt's replacement is still pending. Current Medications - Current Medications Current Medications: Active Medications Aspirin (Ecotrin) 81 mg PO DAILY [facility] Last Admin: 11/14/17 09:42 Dose: 81 mg Citalopram Hydrobromide (Celexa) 40 mg PO DAILY [facility] Last Admin: 11/14/17 09:42 Dose: 40 mg Docusate Sodium (Colace 250mg Capsule) 250 - 500 mg PO DAILY [facility] Last Admin: 11/14/17 09:43 Dose: Not Given Furosemide (Lasix Inj 40 Mg Vial) 40 mg IVP DAILY [facility] Cefepime HCl 2 gm/ Sodium (Chloride) 100 mls @ 200 mls/hr IV BID [facility] Last Infusion: 11/14/17 10:58 Dose: Infused Levalbuterol HCl (Xopenex) 1.25 mg INH RTQ4H PRN PRN Reason: Wheezing Lorazepam (Ativan) 1 mg PO Q4H PRN PRN Reason: Anxiety Metoprolol Succinate (Toprol Xl) 50 mg PO 1400,2200 [facility] Midodrine () 2.5 mg PO TIDWM [facility] Last Admin: 11/14/17 11:46 Dose: 2.5 mg Morphine Sulfate (Morphine (Carpuject)) 2 mg IVP Q2HR PRN PRN Reason: PAIN Last Admin: 11/14/17 10:00 Dose: 2 mg Multi-Ingredient Mouthwash/Gargle () 30 ml PO Q6H PRN PRN Reason: Heartburn Last Admin: 11/13/17 20:34 Dose: 30 ml Multivitamins (Theragran) 1 tab PO DAILY [facility] Last Admin: 11/14/17 09:42 Dose: 1 tab Ondansetron HCl (Zofran Inj) 4 mg IVP Q6HR PRN PRN Reason: Nausea / Vomiting Last Admin: 11/12/17 23:50 Dose: 4 mg Ondansetron HCl (Zofran Odt) 4 mg TL Q6HR PRN PRN Reason: Nausea / Vomiting Last Admin: 11/10/17 16:34 Dose: 4 mg Oxycodone HCl (Roxicodone) 5 mg PO Q4HR PRN PRN Reason: Pain 5 to 7 Pantoprazole Sodium (Protonix) 40 mg PO QDAC [facility] Last Admin: 11/14/17 06:31 Dose: 40 mg Polyethylene Glycol (Miralax) 17 gm PO DAILY [facility] Last Admin: 11/14/17 09:43 Dose: Not Given Prednisone (Deltasone) 20 mg PO DAILYWM [facility] Last Admin: 11/14/17 07:59 Dose: 20 mg Senna (Senokot) 8.6 - 17.2 mg PO DAILY [facility] Last Admin: 11/14/17 09:43 Dose: Not Given Sodium Chloride (Normal Saline Flush 0.9%) 10 ml IVP PRN PRN PRN Reason: NEEDED PER PROVIDER ORDERS Last Admin: 11/14/17 10:01 Dose: 10 ml Sodium Chloride (Normal Saline Flush 0.9%) 10 ml IVP 0100,0900,1700 [facility] Last Admin: 11/14/17 05:51 Dose: 10 ml Spironolactone (Aldactone) 50 mg PO DAILY [facility] Last Admin: 11/14/17 10:17 Dose: 50 mg Torsemide (Torsemide) 20 mg PO DAILY [facility] Warfarin [Coumadin] 5 mg PO DAILY 10/04/17 Amiodarone HCl 200 mg PO DAILY 11/05/17 Multivitamin [Theragran] 1 tab PO DAILY 11/05/17 Objective - Vital Signs/Intake & Output Reviewed Vital Signs: Yes Vital Signs: Vital Signs x48h Temp Pulse Pulse Resp BP BP Pulse Ox 11/14/17 07:56 36.2 C L 87 16 85/60 L 90 L 11/14/17 07:23 78 16 11/14/17 05:48 90/67 11/14/17 05:00 36.2 C L 88 18 91/67 96 Intake & Output: Intake & Output 11/11/17 11/12/17 11/13/17 11/14/17 23:59 23:59 23:59 23:59 Intake Total 920 670 700 400 Output Total 1750 1280 850 200 Balance -830 -610 -150 200 - Objective General Appearance: positive: No acute distress, Alert. negative: Lethargic Eyes Bilateral: positive: Normal inspection, PERRL, Conjunctivae nml ENT: positive: ENT inspection nml, Pharynx nml, No signs of dehydration. negative: Purulent nasal drainage, Pharyngeal erythema, Oral lesions Neck: positive: Nml inspection, Thyroid nml, No JVD, Trachea midline. negative: Thyromegaly, Lymphadenopathy (R), Lymphadenopathy (L), Stiff neck, Swelling/bruising, Tracheal deviation Respiratory: positive: Chest non-tender, No respiratory distress. negative: Wheezes, Rales, Rhonchi Cardiovascular: positive: Irregularly irregular. negative: Regular rate & rhythm, No murmur, Extrasystoles, Tachycardia, Bradycardia, JVD present, Systolic murmur, Diastolic murmur Peripheral Pulses: 2+ Radial (R), 2+ Radial (L), 2+ Dorsalis pedis (R), 2+ Dorsa lis pedis (L) Abdomen: positive: Non-tender, No organomegaly, Nml bowel sounds, No distention. negative: Tenderness, Guarding, Rebound Back: positive: Nml inspection. negative: CVA tenderness (R), CVA tenderness (L) Skin: positive: Color nml, No rash, Warm, Dry. negative: Cyanosis, Diaphoresis, Pallor Extremities: positive: Non-tender, Full ROM, Nml appearance. negative: Calf tenderness, Joint swelling, Tahira's sign/cords Neurologic/Psychiatric: positive: Oriented x3, Motor nml, Sensation nml, Mood/affect nml. negative: Weakness, Sensory loss, Facial droop, Slurred/abnml speech, Depressed mood/affect - Lab Results Fish Bones: 11/14/17 05:40 11/14/17 05:40 Other Labs: Lab Results x24hrs 11/14/17 11/14/17 11/14/17 Range/Units 05:40 05:40 05:40 WBC (4.8-10.8) x10^3/uL RBC (4.70-6.10) 10^6/uL Hgb (14.0-18.0) g/dL Hct (42.0-52.0) % MCV (80.0-94.0) fL MCH (27.0-31.0) pg MCHC (32.0-36.0) g/dL RDW (12.0-15.0) % Plt Count (130-450) 10^3/uL MPV (7.4-11.4) fL Neut # (Auto) (1.5-6.6) 10^3/uL Lymph # (Auto) (1.5-3.5) 10^3/uL Webb # (Auto) (0.0-1.0) 10^3/uL Eos # (Auto) (0.0-0.7) 10^3/uL Baso # (Auto) (0.0-0.1) 10^3/uL Absolute Nucleated RBC x10^3/uL Nucleated RBC % /100WBC PT 33.0 H (9.9-12.6) secs INR 3.0 H (0.8-1.2) Sodium 127 L (135-145) mmol/L Potassium 4.9 (3.5-5.0) mmol/L Chloride 87 L (101-111) mmol/L Carbon Dioxide 28 (21-32) mmol/L Anion Gap 12.0 (6-13) BUN 55 H (6-20) mg/dL Creatinine 1.8 H (0.6-1.2) mg/dL Estimated GFR (MDRD) 39 L (>89) Glucose 96 (70-100) mg/dL Calcium 9.1 (8.5-10.3) mg/dL Total Bilirubin 2.0 H (0.2-1.0) mg/dL AST 51 H (10-42) IU/L ALT 78 H (10-60) IU/L Alkaline Phosphatase 139 H (42-121) IU/L B-Natriuretic Peptide 9001.00 H (5-100) pg/mL Total Protein 6.6 L (6.7-8.2) g/dL Albumin 3.8 (3.2-5.5) g/dL Globulin 2.8 (2.1-4.2) g/dL Albumin/Globulin Ratio 1.4 (1.0-2.2) 11/14/17 Range/Units 05:40 WBC 8.7 (4.8-10.8) x10^3/uL RBC 5.12 (4.70-6.10) 10^6/uL Hgb 17.7 (14.0-18.0) g/dL Hct 52.8 H (42.0-52.0) % MCV 103.1 H (80.0-94.0) fL MCH 34.5 H (27.0-31.0) pg MCHC 33.5 (32.0-36.0) g/dL RDW 14.6 (12.0-15.0) % Plt Count 173 (130-450) 10^3/uL MPV 10.1 (7.4-11.4) fL Neut # (Auto) 7.0 H (1.5-6.6) 10^3/uL Lymph # (Auto) 0.9 L (1.5-3.5) 10^3/uL Webb # (Auto) 0.8 (0.0-1.0) 10^3/uL Eos # (Auto) 0.0 (0.0-0.7) 10^3/uL Baso # (Auto) 0.0 (0.0-0.1) 10^3/uL Absolute Nucleated RBC 0.01 x10^3/uL Nucleated RBC % 0.1 /100WBC PT (9.9-12.6) secs INR (0.8-1.2) Sodium (135-145) mmol/L Potassium (3.5-5.0) mmol/L Chloride (101-111) mmol/L Carbon Dioxide (21-32) mmol/L Anion Gap (6-13) BUN (6-20) mg/dL Creatinine (0.6-1.2) mg/dL Estimated GFR (MDRD) (>89) Glucose (70-100) mg/dL Calcium (8.5-10.3) mg/dL Total Bilirubin (0.2-1.0) mg/dL AST (10-42) IU/L ALT (10-60) IU/L Alkaline Phosphatase (42-121) IU/L B-Natriuretic Peptide (5-100) pg/mL Total Protein (6.7-8.2) g/dL Albumin (3.2-5.5) g/dL Globulin (2.1-4.2) g/dL Albumin/Globulin Ratio (1.0-2.2) ABX Reporting Has patient been on IV antibiotics over the past 48 hours?: Yes Assessment/Plan - Problem List (1) Right lower lobe pneumonia Impression: Impression: 11/14 continue cefepime, yesterday CXR indicates pt still has pneumonia, pt present O2-dependent, cough, SOB 11/13, CXR indicate right lung pneumonia, un-change change to cefepime 11/12 continue IV of Rocephin. No fever, chill, WBC is normal 11/11 95% sat on room air, no fever, chill, WBC is normal. continue antibiotics 11/10 pt's WBC is normal, 98% sats at 1 liter of O2, no fever, chill, cough. may switch to PO antibiotics, if continue improved The patient began at least 48 hours ago with a cough, increased breathing efforts, and overall fatigue. The patient complained of slight nausea and dizziness. He continues to have coarse crackles that are not clearing with incentive spirometer or new xopenex nebs, despite being on BID IV lasix. Imaging was ordered and confirms a new right low lobe pneumonia with pleural effusions. He has been afebrile, but certainly is feeling worse, which is only slightly improved today. Due to his worsening ESTEVAN, the patient was changed from Zosyn to Rocephin. Plan: Continue respiratory care, start Rocephin IV, and monitor for improvement. pt is waiting for replacement. It is reason why pt's d/c is delayed. (2) Hypotension Impression: 11/14 pt's SBP has been around 80--100, pt had Midodrive. but pt has severe sys tolic heart failure. closely monitor his BP, tele monitor. 11/13 pt is asymptomatic, pt's SBP is between 80-90. but pt had EF <20% 11/12, a little better, SBP is more than 90 continue vital monitor, hold Lisinopril 11/11, pt's EF <20%, SBP is at 82, SBP around 80-90 are still acceptable as pt is asymptomatic. will hold Lisinopril, and reduce Lasix to 40 mg daily continue vital, tele monitor pt's EF <20%, SBP is around at 90 as his baseline The patient is now symptomatic with his hypotension and has a baseline systolic blood pressure in the 90's. After a further review of his chart and me dications, we have added Midodrine 2.5mg TID with meals to help with this. Plan: Continue to monitor vital signs and await chest x-ray. (3) Acute combined systolic and diastolic CHF, NYHA class 3 Impression: 11/14 leg edema is much reduced, but SOB at exertion is still present. elevated BNP to 9000 pt has been Lasix for over week, it seems not well pt to response to Lasix, switch to Torsemide, closely monitor pt's BP, and lab monitor follow up palliative and hospice consult 11/13, continue fluid restriction, low sodium diet, daily weight continue lasix IV bid 11/12 BNP increase, continue diuretics Lasic IV 40 mg bid, daily lab monitor tried to reach pt's dragline engineer for advance care plan but could not reach. consult with palliative care per pt's request, will followup 11/10 EF less 20%, poor response to diuretic and other treatment treatment, and with acute on chronic renal insufficiency. pt seek palliative care, will support The patient's BNP on admission was elevated at 4683, and remains elevated at ~8966. This abnormality is influenced by his kidney function, so it is somewhat expected with the IV lasix that he has been given during this stay. Clinically, the patient appears improved as his BLE edema is reduced, but remains with abdominal edema and crackles in his lungs with oxygen requirements. His abdominal edema is slightly worse each day. He is more hypoxic, has increased breathing efforts, mildly nauseated and has increased fatigue. He continues on BID IV lasix at 40mg. He continues on metoprolol, which was incre ased from 25 to 50mg. Amioderone was discontinued as this would be useful to keep him in a sinus rhythm, but not to attempt to convert him out of atrial fibrillation. Plan: Continue to monitor fluid status, monitor urine out put, and daily weights. (4) ESTEVAN (acute kidney injury) Impression: 11/14 worsening than before, but pt is vascular congestion, it is difficult to manage this condition. lab monitor, vital monitor follow up palliative and hospice consult improved as base line stable now as the baseline continue lab monitor slight increase of creatinine because of the distress of diuretics. will hold diuretics as pt's fluid overload is controlled. The patient has had a steady decline in his kidney function and upon admission was found to have an elevated creatinine of 1.4, that is worse at 1.4. The GFR was reduced at 52. He continues on IV lasix with BID dosing, and his leg edema is much improved. Urine output has been charted today at 700ml since midnight. Antibiotic choice was changed to avoid further ESTEVAN. Plan: Continue daily labs, weights, and strict I/Os. (5) Atrial fibrillation with RVR Impression: stable on and off, intermittent afib with RVR. continue beta-cayden, continue monitor The patient has been in this rhythm for at least the past 2 admissions. His rates reach 120-150's at times. He recently had a cardiology consult with Dr. Pickett in [place] who plans to do a cardioversion after the patient is anticoagulated for a while. The patient denies palpitations, chest pain or tightness. He remains on telemetry and is tachycardic with heart rates in the 90's. His metoprolol dose was increased from 20 to 50mg, and the patient had symptomatic hypotension and was started on Midodrine. Despite my advanced care planning talk with the patient, he still wishes for us to call Dr. Pickett prior to discharge to see about his upcoming cardioversion. Plan: Continue rate control meds. (6) Do not resuscitate Impression: The patient was informed today that he more likely has less than one year to live based on his multi-organ dysfunction and his extremely poor heart function. Plan: Continue DNR code status, and have ongoing conversations, consider palliative care consult. (7) Homelessness Impression: 11/14 replacement is pending, social and case management were consulted, follow up The patient frequently reminds the medical team of this fact and has been set up with community resources when he is not in the hospital. He states that he has been homeless for at least the past year due to rent amounts going too high. Plan: Continue to treat this acute illness, and social work support for upcoming discharge. (8) Elevated LFTs Impression: 11/11 stable, pt is Hep C positive, which can cause elevated LFTs The patient had very elevated LFTs with an AST/ALT of 128/181, that have improved. This abnormality was likely a result of his newly diagnosed Hep C. The patient does not appear jaundice, but does have bronze skin tone. An abdom inal US was ordered and shows moderate ascities, hepatomegaly with mildly contour and imhomogeneous echotexture, without any focal liver lesions. Plan: Continue to monitor, and avoid liver toxic meds. HIV test is pending. (9) Hyponatremia Impression: 11/13 Na 127, chronic closely to his baseline 11/10, chronic lower of Na, continue to support. chronic hyponatremia indicates poor prognosis as well. The patient was found to have a low sodium level of 127, that remains the same at 126. This is likely a consequence of his fluid imbalance. The patient is not thought to have altered mental status as compared to previous admissions. He continues on his IV lasix BID. Plan: Continue to monitor daily labs. (10) Chronic anticoagulation Impression: 11/13 daily lab monitor, today INR 2.8, still hold coumadin check daily 11/10 hold Coumadin now. INR is 4.3 today. Hold coumadin The patient is on Warfarin at 5mg PO daily, but was placed on hold today for an INR of 3.3. The patient believes if he stays on anticoagulation, he will get a cardioversion for his atrial fibrillation as per Dr. Pickett who has recently had a clinic visit with him. Plan: Continue daily INRs, and resume daily Coumadin as per daily INR results. (11) Hepatitis C Impression: continue support Blood testing including Hep C antibody and AB signal cutoff, show +disease. The patient had very elevated LFTs upon admission, which are gradually improved each day. It is recommended that if someone tests positive for Hep C, they should also undergo testing for HIV. The patient was surprised to hear that he is Hep C positive and states that he has never injected drugs and has not had a sexual partner in several years. I will recommend that the patient be referred for further hepatology testing via PCP, unless he chooses a path of Palliative/Hospice care. Plan: Provide education, await HIV lab, and monitor LFTs.
[2017-11-14] MEDS: TORSEMIDE 20 MG TABLET PO SCH (13:25)
[2017-11-14] MEDS ORDERED: FUROSEMIDE 40 MG/4 ML VIAL IVP STA (20:24)
[2017-11-15] MEDS: SODIUM CHLORIDE FLUSH 0.9% 10 ML SYRINGE IVP SCH ×3 (01:09→21:19)
[2017-11-15] MEDS: METOPROLOL SUCCINATE 25 MG TABLET PO SCH ×3 (01:16→21:52)
[2017-11-15 05:14] LABS: BASOPHILS % (AUTO) 0.1 %; EOSINOPHILS % (AUTO) 0.1 %; HGB - HEMOGLOBIN 17.7 g/dL (14.0-18.0); LYMPHOCYTES # (AUTO) 0.7 10^3/uL (1.5-3.5); LYMPHOCYTES % (AUTO) 6.4 %; MEAN CORPUSCULAR HEMOGLOBIN 33.9 pg (27.0-31.0); MEAN CORPUSCULAR HGB CONC 33.1 g/dL (32.0-36.0); MEAN CORPUSCULAR VOLUME 102.5 fL (80.0-94.0); MEAN PLATELET VOLUME 10.6 fL (7.4-11.4); MONOCYTES % (AUTO) 8.7 %; NEUTROPHILS # (AUTO) 9.3 10^3/uL (1.5-6.6); NEUTROPHILS % (AUTO) 84.7 %; PLT - PLATELET COUNT 154 10^3/uL (130-450); RED BLOOD COUNT 5.21 10^6/uL (4.70-6.10); RED CELL DISTRIBUTION WIDTH 14.7 % (12.0-15.0)
[2017-11-15 05:23] LABS: ALBUMIN 3.7 g/dL (3.2-5.5); ALBUMIN/GLOBULIN RATIO 1.4 (1.0-2.2); BILIRUBIN,TOTAL 2.4 mg/dL (0.2-1.0); CALCIUM 9.1 mg/dL (8.5-10.3); TOTAL PROTEIN 6.3 g/dL (6.7-8.2)
[2017-11-15 05:26] LABS: PT - PROTHROMBIN TIME 48.6 secs (9.9-12.6)
[2017-11-15 05:33] LABS: INR 4.6 (0.8-1.2)
[2017-11-15] MEDS: PANTOPRAZOLE 40 MG TABLET PO SCH (06:27)
[2017-11-15] MEDS: MULTIVITAMIN TABLET PO SCH (08:36)
[2017-11-15] MEDS: CITALOPRAM 10 MG TABLET PO SCH (08:36)
[2017-11-15] MEDS: MIDODRINE 2.5 MG TABLET PO SCH ×3 (08:36→17:34)
[2017-11-15] MEDS: ASPIRIN EC 81 MG TABLET PO SCH (08:36)
[2017-11-15] MEDS: TORSEMIDE 20 MG TABLET PO SCH (08:36)
[2017-11-15] MEDS: SPIRONOLACTONE 25 MG TABLET PO SCH (08:36)
[2017-11-15] MEDS: POLYETHYLENE GLYCOL 3350 17 GM PACKET PO SCH (08:36)
[2017-11-15] MEDS: SENNA 8.6 MG TABLET PO SCH (08:36)
[2017-11-15] MEDS: DOCUSATE SODIUM 250 MG CAPSULE PO SCH (08:36)
[2017-11-15] MEDS: predniSONE 20 MG TABLET PO SCH (08:36)
[2017-11-15] MEDS ORDERED: FUROSEMIDE 40 MG/4 ML VIAL IVP SCH (09:00)
[2017-11-15] MEDS: CEFEPIME 1 GM in SODIUM CHLORIDE 0.9% MINIBAG 100 ML IV SCH ×2 (09:54→21:18)
--- NOTE | 2017-11-15 12:06 | PROVIDER PROGRESS NOTE ---
Subjective - Prog Note Date Prog Note Date: 11/15/17 - Subjective Pt reports feeling: No change Subjective: pt report he feel the similar, still SOB on exertion. Denies fever, chill, chest pain pt is waiting for replacement. will call pt's geometrician on tomorrow, today is Thursday. After that, if pt change his mind, may contact palliative care and possible hospice care. Current Medications - Current Medications Current Medications: Active Medications Aspirin (Ecotrin) 81 mg PO DAILY [facility] Last Admin: 11/15/17 08:36 Dose: 81 mg Citalopram Hydrobromide (Celexa) 40 mg PO DAILY [facility] Last Admin: 11/15/17 08:36 Dose: 40 mg Docusate Sodium (Colace 250mg Capsule) 250 - 500 mg PO DAILY [facility] Last Admin: 11/15/17 08:36 Dose: 250 mg Cefepime HCl 1 gm/ Sodium (Chloride) 100 mls @ 200 mls/hr IV BID [facility] Last Infusion: 11/15/17 10:25 Dose: Infused Levalbuterol HCl (Xopenex) 1.25 mg INH RTQ4H PRN PRN Reason: Wheezing Lorazepam (Ativan) 1 mg PO Q4H PRN PRN Reason: Anxiety Metoprolol Succinate (Toprol Xl) 25 mg PO 1400,2200 [facility] Midodrine () 2.5 mg PO TIDWM [facility] Last Admin: 11/15/17 08:36 Dose: 2.5 mg Morphine Sulfate (Morphine (Carpuject)) 2 mg IVP Q2HR PRN PRN Reason: PAIN Last Admin: 11/14/17 22:56 Dose: 2 mg Multi-Ingredient Mouthwash/Gargle () 30 ml PO Q6H PRN PRN Reason: Heartburn Last Admin: 11/13/17 20:34 Dose: 30 ml Multivitamins (Theragran) 1 tab PO DAILY [facility] Last Admin: 11/15/17 08:36 Dose: 1 tab Ondansetron HCl (Zofran Inj) 4 mg IVP Q6HR PRN PRN Reason: Nausea / Vomiting Last Admin: 11/12/17 23:50 Dose: 4 mg Ondansetron HCl (Zofran Odt) 4 mg TL Q6HR PRN PRN Reason: Nausea / Vomiting Last Admin: 11/10/17 16:34 Dose: 4 mg Oxycodone HCl (Roxicodone) 5 mg PO Q4HR PRN PRN Reason: Pain 5 to 7 Pantoprazole Sodium (Protonix) 40 mg PO QDAC [facility] Last Admin: 11/15/17 06:27 Dose: 40 mg Polyethylene Glycol (Miralax) 17 gm PO DAILY [facility] Last Admin: 11/15/17 08:36 Dose: 17 gm Prednisone (Deltasone) 20 mg PO DAILYWM [facility] Last Admin: 11/15/17 08:36 Dose: 20 mg Senna (Senokot) 8.6 - 17.2 mg PO DAILY [facility] Last Admin: 11/15/17 08:36 Dose: 8.6 mg Sodium Chloride (Normal Saline Flush 0.9%) 10 ml IVP PRN PRN PRN Reason: NEEDED PER PROVIDER ORDERS Last Admin: 11/14/17 22:56 Dose: 10 ml Sodium Chloride (Normal Saline Flush 0.9%) 10 ml IVP 0100,0900,1700 [facility] Last Admin: 11/15/17 05:34 Dose: 10 ml Spironolactone (Aldactone) 50 mg PO DAILY [facility] Last Admin: 11/15/17 08:36 Dose: 50 mg Torsemide (Torsemide) 20 mg PO DAILY [facility] Last Admin: 11/15/17 08:36 Dose: 20 mg Warfarin [Coumadin] 5 mg PO DAILY 10/04/17 Amiodarone HCl 200 mg PO DAILY 11/05/17 Multivitamin [Theragran] 1 tab PO DAILY 11/05/17 Objective - Vital Signs/Intake & Output Reviewed Vital Signs: Yes Vital Signs: Vital Signs x48h Temp Pulse Pulse Resp BP Pulse Ox 11/15/17 08:04 36.2 C L 85 19 84/53 L 90 L 11/15/17 07:22 73 16 11/15/17 05:00 36.3 C L 68 18 85/71 L 97 Intake & Output: Intake & Output 11/12/17 11/13/17 11/14/17 11/15/17 23:59 23:59 23:59 23:59 Intake Total 670 700 900 350 Output Total 1280 850 600 200 Balance -610 -150 300 150 - Objective General Appearance: positive: No acute distress, Alert. negative: Lethargic Eyes Bilateral: positive: Normal inspection, PERRL, No lid inflammation, Conjunctivae nml ENT: positive: ENT inspection nml, Pharynx nml, No signs of dehydration. negative: Purulent nasal drainage, Pharyngeal erythema, Oral lesions Neck: positive: Nml inspection, Thyroid nml, No JVD, Trachea midline. negative: Thyromegaly, Lymphadenopathy (R), Lymphadenopathy (L), Stiff neck, Swelling/bruising, Tracheal deviation Respiratory: positive: Chest non-tender, No respiratory distress, Breath sounds nml. negative: Wheezes, Rales, Rhonchi Cardiovascular: positive: Regular rate & rhythm, No murmur, No gallop. negative: Irregularly irregular, Extrasystoles, Tachycardia, Bradycardia, JVD present, Systolic murmur, Diastolic murmur Peripheral Pulses: 2+ Radial (R), 2+ Radial (L), 2+ Dorsalis pedis (R), 2+ Dorsalis pedis (L) Abdomen: positive: Non-tender, No organomegaly, Nml bowel sounds, No distention. negative: Tenderness, Guarding, Rebound Back: positive: Nml inspection. negative: CVA tenderness (R), CVA tenderness (L) Skin: positive: Color nml, No rash, Warm, Dry. negative: Cyanosis, Diaphoresis, Pallor Extremities: positive: Non-tender, Full ROM, Nml appearance. negative: Calf tenderness, Joint swelling, Tahira's sign/cords Neurologic/Psychiatric: positive: Oriented x3, Motor nml, Sensation nml, Mood/affect nml. negative: Weakness, Sensory loss, Facial droop, Slurred/abnml speech, Depressed mood/affect - Lab Results Fish Bones: 11/15/17 04:50 11/15/17 04:50 Other Labs: Lab Results x24hrs 11/15/17 11/15/17 11/15/17 Range/Units 04:50 04:50 04:50 WBC 11.0 H (4.8-10.8) x10^3/uL RBC 5.21 (4.70-6.10) 10^6/uL Hgb 17.7 (14.0-18.0) g/dL Hct 53.4 H (42.0-52.0) % MCV 102.5 H (80.0-94.0) fL MCH 33.9 H (27.0-31.0) pg MCHC 33.1 (32.0-36.0) g/dL RDW 14.7 (12.0-15.0) % Plt Count 154 (130-450) 10^3/uL MPV 10.6 (7.4-11.4) fL Neut # (Auto) 9.3 H (1.5-6.6) 10^3/uL Lymph # (Auto) 0.7 L (1.5-3.5) 10^3/uL [place] # (Auto) 1.0 (0.0-1.0) 10^3/uL Eos # (Auto) 0.0 (0.0-0.7) 10^3/uL Baso # (Auto) 0.0 (0.0-0.1) 10^3/uL Absolute Nucleated RBC 0.02 x10^3/uL Nucleated RBC % 0.2 /100WBC PT 48.6 H (9.9-12.6) secs INR 4.6 H* (0.8-1.2) Sodium (135-145) mmol/L Potassium (3.5-5.0) mmol/L Chloride (101-111) mmol/L Carbon Dioxide (21-32) mmol/L Anion Gap (6-13) BUN (6-20) mg/dL Creatinine (0.6-1.2) mg/dL Estimated GFR (MDRD) (>89) Glucose (70-100) mg/dL Calcium (8.5-10.3) mg/dL Total Bilirubin (0.2-1.0) mg/dL AST (10-42) IU/L ALT (10-60) IU/L Alkaline Phosphatase (42-121) IU/L B-Natriuretic Peptide 9001.00 H (5-100) pg/mL Total Protein (6.7-8.2) g/dL Albumin (3.2-5.5) g/dL Globulin (2.1-4.2) g/dL Albumin/Globulin Ratio (1.0-2.2) 11/15/17 Range/Units 04:50 WBC (4.8-10.8) x10^3/uL RBC (4.70-6.10) 10^6/uL Hgb (14.0-18.0) g/dL Hct (42.0-52.0) % MCV (80.0-94.0) fL MCH (27.0-31.0) pg MCHC (32.0-36.0) g/dL RDW (12.0-15.0) % Plt Count (130-450) 10^3/uL MPV (7.4-11.4) fL Neut # (Auto) (1.5-6.6) 10^3/uL Lymph # (Auto) (1.5-3.5) 10^3/uL [place] # (Auto) (0.0-1.0) 10^3/uL Eos # (Auto) (0.0-0.7) 10^3/uL Baso # (Auto) (0.0-0.1) 10^3/uL Absolute Nucleated RBC x10^3/uL Nucleated RBC % /100WBC PT (9.9-12.6) secs INR (0.8-1.2) Sodium 124 L (135-145) mmol/L Potassium 4.9 (3.5-5.0) mmol/L Chloride 84 L (101-111) mmol/L Carbon Dioxide 27 (21-32) mmol/L Anion Gap 13.0 (6-13) BUN 67 H (6-20) mg/dL Creatinine 2.0 H (0.6-1.2) mg/dL Estimated GFR (MDRD) 35 L (>89) Glucose 102 H (70-100) mg/dL Calcium 9.1 (8.5-10.3) mg/dL Total Bilirubin 2.4 H (0.2-1.0) mg/dL AST 95 H (10-42) IU/L ALT 107 H (10-60) IU/L Alkaline Phosphatase 124 H (42-121) IU/L B-Natriuretic Peptide (5-100) pg/mL Total Protein 6.3 L (6.7-8.2) g/dL Albumin 3.7 (3.2-5.5) g/dL Globulin 2.6 (2.1-4.2) g/dL Albumin/Globulin Ratio 1.4 (1.0-2.2) ABX Reporting Has patient been on IV antibiotics over the past 48 hours?: Yes Assessment/Plan - Problem List (1) Right lower lobe pneumonia Impression: Impression: 11/15, pt has slight elevated WBC at 11, but there is no fever/chill, cough or no other clinic symptoms support worsening pneumonia. recently CXR indicate the similar. continue Cefepime continue O2 supplement as needed continue vital and lab monitor 11/14 continue cefepime, yesterday CXR indicates pt still has pneumonia, pt present O2-dependent, cough, SOB 11/13, CXR indicate right lung pneumonia, un-change change to cefepime 11/12 continue IV of Rocephin. No fever, chill, WBC is normal 11/11 95% sat on room air, no fever, chill, WBC is normal. continue antibiotics 11/10 pt's WBC is normal, 98% sats at 1 liter of O2, no fever, chill, cough. may switch to PO antibiotics, if continue improved The patient began at least 48 hours ago with a cough, increased breathing efforts, and overall fatigue. The patient complained of slight nausea and dizziness. He continues to have coarse crackles that are not clearing with incentive spirometer or new xopenex nebs, despite being on BID IV lasix. Imaging was ordered and confirms a new right low lobe pneumonia with pleural effusions. He has been afebrile, but certainly is feeling worse, which is only slightly improved today. Due to his worsening ESTEVAN, the patient was changed from Zosyn to Rocephin. Plan: Continue respiratory care, start Rocephin IV, and monitor for improvement. pt is waiting for replacement. It is reason why pt's d/c is delayed. (2) Hypotension Impression: 11/15 pt still present low BP, reduce metoprolol to 25 mg bid from 50 mg bid, since pt's HR is around 60-70 continue vital monitor 11/14 pt's SBP has been around 80--100, pt had Midodrive. but pt has severe syst olic heart failure. closely monitor his BP, tele monitor. 11/13 pt is asymptomatic, pt's SBP is between 80-90. but pt had EF <20% 11/12, a little better, SBP is more than 90 continue vital monitor, hold Lisinopril 11/11, pt's EF <20%, SBP is at 82, SBP around 80-90 are still acceptable as pt is asymptomatic. will hold Lisinopril, and reduce Lasix to 40 mg daily continue vital, tele monitor pt's EF <20%, SBP is around at 90 as his baseline The patient is now symptomatic with his hypotension and has a baseline systolic blood pressure in the 90's. After a further review of his chart and med ications, we have added Midodrine 2.5mg TID with meals to help with this. Plan: Continue to monitor vital signs and await chest x-ray. (3) Acute combined systolic and diastolic CHF, NYHA class 3 Impression: 11/15 continue metoprolol, spironolactine, hold Lisinopril for his low BP continue Torsemide, since pt is desensitized to other Loop diuretics continue lab and vital monitor 11/14 leg edema is much reduced, but SOB at exertion is still present. elevated BNP to 9000 pt has been Lasix for over week, it seems not well pt to response to Lasix, switch to Torsemide, closely monitor pt's BP, and lab monitor follow up palliative and hospice consult 11/13, continue fluid restriction, low sodium diet, daily weight continue lasix IV bid 11/12 BNP increase, continue diuretics Lasic IV 40 mg bid, daily lab monitor tried to reach pt's geometrician for advance care plan but could not reach. consult with palliative care per pt's request, will followup 11/10 EF less 20%, poor response to diuretic and other treatment treatment, and with acute on chronic renal insufficiency. pt seek palliative care, will support The patient's BNP on admission was elevated at 4683, and remains elevated at ~8966. This abnormality is influenced by his kidney function, so it is somewhat expected with the IV lasix that he has been given during this stay. Clinically, the patient appears improved as his BLE edema is reduced, but remains with abdominal edema and crackles in his lungs with oxygen requirements. His abdominal edema is slightly worse each day. He is more hypoxic, has increased breathing efforts, mildly nauseated and has increased fatigue. He continues on BID IV lasix at 40mg. He continues on metoprolol, which was increased from 25 to 50mg. Amioderone was discontinued as this would be useful to keep him in a sinus rhythm, but not to attempt to convert him out of atrial fibrillation. Plan: Continue to monitor fluid status, monitor urine out put, and daily weights. (4) ESTEVAN (acute kidney injury) Impression: 11/15 slow worsening creatinine slight increase. it is very difficult to manage this condition, cardiorenal syndrom. pt need fluid restrict for cardiac fluid retention but renal need hydration. will balance 11/14 worsening than before, but pt is vascular congestion, it is difficult to manage this condition. lab monitor, vital monitor follow up palliative and hospice consult improved as base line stable now as the baseline continue lab monitor slight increase of creatinine because of the distress of diuretics. will hold diuretics as pt's fluid overload is controlled. The patient has had a steady decline in his kidney function and upon admission was found to have an elevated creatinine of 1.4, that is worse at 1.4. The GFR was reduced at 52. He continues on IV lasix with BID dosing, and his leg edema is much improved. Urine output has been charted today at 700ml since midnight. Antibiotic choice was changed to avoid further ESTEVAN. Plan: Continue daily labs, weights, and strict I/Os. (5) Atrial fibrillation with RVR Impression: 11/15 slight elevated INR even pt did not take Coumadin but pt is on antibiotics and renal function declining some, daily monitor PT/INR, hold coumadin if overtherapeutic INR exist on and off, intermittent afib with RVR. continue beta-cayden, continue monitor The patient has been in this rhythm for at least the past 2 admissions. His rates reach 120-150's at times. He recently had a cardiology consult with Dr. Pickett in [place] who plans to do a cardioversion after the patient is anticoagula marquis for a while. The patient denies palpitations, chest pain or tightness. He remains on telemetry and is tachycardic with heart rates in the 90's. His metoprolol dose was increased from 20 to 50mg, and the patient had symptomatic hypotension and was started on Midodrine. Despite my advanced care planning talk with the patient, he still wishes for us to call Dr. Pickett prior to discharge to see about his upcoming cardioversion. Plan: Continue rate control meds. (6) Do not resuscitate Impression: The patient was informed today that he more likely has less than one year to live based on his multi-organ dysfunction and his extremely poor heart function. Plan: Continue DNR code status, and have ongoing conversations, consider palliative care consult. (7) Homelessness Impression: 11/14 replacement is pending, social and case management were consulted, follow up The patient frequently reminds the medical team of this fact and has been set up with community resources when he is not in the hospital. He states that he has been homeless for at least the past year due to rent amounts going too high. Plan: Continue to treat this acute illness, and social work support for upcoming discharge. (8) Elevated LFTs Impression: 11/15 slight elevated total bili, slight elevated liver enzyme, pt is positive Hep C continue monitor and support hold hepatic toxical agent 11/11 stable, pt is Hep C positive, which can cause elevated LFTs The patient had very elevated LFTs with an AST/ALT of 128/181, that have improved. This abnormality was likely a result of his newly diagnosed Hep C. The patient does not appear jaundice, but does have bronze skin tone. An abdominal US was ordered and shows moderate ascities, hepatomegaly with mildly contour and imhomogeneous echotexture, without any focal liver lesions. Plan: Continue to monitor, and avoid liver toxic meds. HIV test is pending. (9) Hyponatremia Impression: 11/13 Na 127, chronic closely to his baseline 11/10, chronic lower of Na, continue to support. chronic hyponatremia indicates poor prognosis as well. The patient was found to have a low sodium level of 127, that remains the same at 126. This is likely a consequence of his fluid imbalance. The patient is n ot thought to have altered mental status as compared to previous admissions. He continues on his IV lasix BID. Plan: Continue to monitor daily labs. (10) Chronic anticoagulation Impression: 11/13 daily lab monitor, today INR 2.8, still hold coumadin check daily 11/10 hold Coumadin now. INR is 4.3 today. Hold coumadin The patient is on Warfarin at 5mg PO daily, but was placed on hold today for an INR of 3.3. The patient believes if he stays on anticoagulation, he will get a cardioversion for his atrial fibrillation as per Dr. Pickett who has recently had a clinic visit with him. Plan: Continue daily INRs, and resume daily Coumadin as per daily INR results. (11) Hepatitis C Impression: continue support Blood testing including Hep C antibody and AB signal cutoff, show +disease. The patient had very elevated LFTs upon admission, which are gradually improved each day. It is recommended that if someone tests positive for Hep C, they should also undergo testing for HIV. The patient was surprised to hear that he is Hep C positive and states that he has never injected drugs and has not had a sexual partner in several years. I will recommend that the patient be referred for further hepatology testing via PCP, unless he chooses a path of Palliative/Hospice care. Plan: Provide education, await HIV lab, and monitor LFTs.
[2017-11-15] MEDS ORDERED: CEFEPIME 1 GM in SODIUM CHLORIDE 0.9% MINIBAG 100 ML IV SCH (14:00)
[2017-11-15] MEDS ORDERED: SODIUM CHLORIDE FLUSH 0.9% 10 ML SYRINGE ONE (21:14)
[2017-11-15] MEDS: MORPHINE 2 MG/ML CARPUJECT IVP PRN (21:53)
[2017-11-16] MEDS: SODIUM CHLORIDE FLUSH 0.9% 10 ML SYRINGE IVP SCH ×4 (00:02→23:38)
[2017-11-16 05:10] LABS: INR 2.5 (0.8-1.2)
[2017-11-16 05:11] LABS: BASOPHILS % (AUTO) 0.1 %; EOSINOPHILS % (AUTO) 0.1 %; HGB - HEMOGLOBIN 17.1 g/dL (14.0-18.0); LYMPHOCYTES # (AUTO) 0.7 10^3/uL (1.5-3.5); LYMPHOCYTES % (AUTO) 5.7 %; MEAN CORPUSCULAR HEMOGLOBIN 33.9 pg (27.0-31.0); MEAN CORPUSCULAR HGB CONC 33.4 g/dL (32.0-36.0); MEAN CORPUSCULAR VOLUME 101.6 fL (80.0-94.0); MEAN PLATELET VOLUME 10.7 fL (7.4-11.4); MONOCYTES # (AUTO) 0.7 10^3/uL (0.0-1.0); MONOCYTES % (AUTO) 5.7 %; NEUTROPHILS # (AUTO) 10.7 10^3/uL (1.5-6.6); NEUTROPHILS % (AUTO) 88.4 %; PLT - PLATELET COUNT 148 10^3/uL (130-450); RED BLOOD COUNT 5.03 10^6/uL (4.70-6.10); RED CELL DISTRIBUTION WIDTH 14.5 % (12.0-15.0); WHITE BLOOD COUNT 12.1 x10^3/uL (4.8-10.8)
[2017-11-16 05:19] LABS: ALBUMIN 3.4 g/dL (3.2-5.5); ALBUMIN/GLOBULIN RATIO 1.3 (1.0-2.2); BILIRUBIN,TOTAL 2.2 mg/dL (0.2-1.0); CALCIUM 8.7 mg/dL (8.5-10.3); TOTAL PROTEIN 6.1 g/dL (6.7-8.2)
[2017-11-16] MEDS: PANTOPRAZOLE 40 MG TABLET PO SCH (06:30)
[2017-11-16] MEDS: CEFEPIME 2 GM in SODIUM CHLORIDE 0.9% MINIBAG 100 ML IV SCH ×2 (08:57→21:31)
[2017-11-16] MEDS: SPIRONOLACTONE 25 MG TABLET PO SCH (08:58)
[2017-11-16] MEDS: MULTIVITAMIN TABLET PO SCH (08:58)
[2017-11-16] MEDS: POLYETHYLENE GLYCOL 3350 17 GM PACKET PO SCH (08:59)
[2017-11-16] MEDS: ASPIRIN EC 81 MG TABLET PO SCH (08:59)
[2017-11-16] MEDS: SENNA 8.6 MG TABLET PO SCH (08:59)
[2017-11-16] MEDS: MIDODRINE 2.5 MG TABLET PO SCH ×3 (08:59→16:50)
[2017-11-16] MEDS: CITALOPRAM 10 MG TABLET PO SCH (08:59)
[2017-11-16] MEDS: DOCUSATE SODIUM 250 MG CAPSULE PO SCH (08:59)
[2017-11-16] MEDS: oxyCODONE 5 MG TABLET PO PRN (09:10)
[2017-11-16] MEDS: TORSEMIDE 20 MG TABLET PO SCH ×2 (11:05→11:42)
[2017-11-16] MEDS ORDERED: NYSTATIN 500000 UNITS/5 ML UDC PO PRN (13:10)
[2017-11-16] MEDS ORDERED: CEFEPIME 1 GM in SODIUM CHLORIDE 0.9% MINIBAG 100 ML IV SCH (14:00)
[2017-11-16] MEDS: METOPROLOL SUCCINATE 25 MG TABLET PO SCH ×2 (14:49→22:11)
--- NOTE | 2017-11-16 20:35 | CONSULTATION NOTE ---
Palliative Care Follow Up - Referral Referring Provider: Hong ARREDONDO Time of Visit: [id number] Referral setting: Hospitalized patient Referral Reason: CHF/Goals of Care - Information Sources Records reviewed: RN notes reviewed, Previous records reviewed History/Review of Systems obtained from: Patient Exam limitations: Clinical condition (patient more difficulty tracking; poor STM; more confused today) - History of Present Illness Update Brief HPI Update: Please see initial HPI with palliative care on 11/11. This is a 57-year-old gentleman who presents with a very complex history influenced by multiple fact ors, including homelessness, and progressive acute on congestive heart failure. He continues to decline with an ejection fraction of less than 20%, he is continue with hypotension, hyponatremia, progressive functional decline, and today with increased cognitive decline. He has both poor liver and kidney function, poor activity tolerance, and is feeling overwhelmed by his current situation. There is been little forward movement though he has been evaluated by home and community services in finding placement, He has no durable power of health attorney lawyer, has filled out a [facility] with the focus on weighing benefits and burdens of future treatments, and DNA R/allow natural . Social History - Living Situation Living arrangement: Homeless Support System: Patient still awaiting placement, have not been able to find anything locally, will have to per STORY WRITER extend into the [facility]. Patient does appear somewhat despondent. Is not able to identify any persons of support, patient reports he is unable to return to the care home secondary to his immobility and his doing poorly. Medications/Allergies - Medications Active Medication List: Active Medications Aspirin (Ecotrin) 81 mg PO DAILY [facility] Last Admin: 11/16/17 08:59 Dose: 81 mg Citalopram Hydrobromide (Celexa) 40 mg PO DAILY [facility] Last Admin: 11/16/17 08:59 Dose: 40 mg Docusate Sodium (Colace 250mg Capsule) 250 - 500 mg PO DAILY [facility] Last Admin: 11/16/17 08:59 Dose: 250 mg Cefepime HCl 2 gm/ Sodium (Chloride) 100 mls @ 200 mls/hr IV BID [facility] Last Infusion: 11/16/17 10:05 Dose: Infused Levalbuterol HCl (Xopenex) 1.25 mg INH RTQ4H PRN PRN Reason: Wheezing Lorazepam (Ativan) 1 mg PO Q4H PRN PRN Reason: Anxiety Metoprolol Succinate (Toprol Xl) 25 mg PO 1400,2200 [facility] Last Admin: 11/16/17 14:49 Dose: Not Given Midodrine () 2.5 mg PO TIDWM [facility] Last Admin: 11/16/17 16:50 Dose: 2.5 mg Morphine Sulfate (Morphine (Carpuject)) 2 mg IVP Q2HR PRN PRN Reason: PAIN Last Admin: 11/15/17 21:53 Dose: 2 mg Multi-Ingredient Mouthwash/Gargle () 30 ml PO Q6H PRN PRN Reason: Heartburn Last Admin: 11/13/17 20:34 Dose: 30 ml Multivitamins (Theragran) 1 tab PO DAILY [facility] Last Admin: 11/16/17 08:58 Dose: 1 tab Nystatin (Mycostatin) 5 ml PO QID PRN PRN Reason: oral thrush Ondansetron HCl (Zofran Inj) 4 mg IVP Q6HR PRN PRN Reason: Nausea / Vomiting Last Admin: 11/12/17 23:50 Dose: 4 mg Ondansetron HCl (Zofran Odt) 4 mg TL Q6HR PRN PRN Reason: Nausea / Vomiting Last Admin: 11/10/17 16:34 Dose: 4 mg Oxycodone HCl (Roxicodone) 5 mg PO Q4HR PRN PRN Reason: Pain 5 to 7 Last Admin: 11/16/17 09:10 Dose: 5 mg Pantoprazole Sodium (Protonix) 40 mg PO QDAC [facility] Last Admin: 11/16/17 06:30 Dose: 40 mg Polyethylene Glycol (Miralax) 17 gm PO DAILY [facility] Last Admin: 11/16/17 08:59 Dose: 17 gm Senna (Senokot) 8.6 - 17.2 mg PO DAILY [facility] Last Admin: 11/16/17 08:59 Dose: 8.6 mg Sodium Chloride (Normal Saline Flush 0.9%) 10 ml IVP PRN PRN PRN Reason: NEEDED PER PROVIDER ORDERS Last Admin: 11/14/17 22:56 Dose: 10 ml Sodium Chloride (Normal Saline Flush 0.9%) 10 ml IVP 0100,0900,1700 [facility] Last Admin: 11/16/17 16:50 Dose: 10 ml Spironolactone (Aldactone) 50 mg PO DAILY [facility] Last Admin: 11/16/17 08:58 Dose: Not Given Torsemide (Torsemide) 20 mg PO DAILY [facility] Last Admin: 11/16/17 11:42 Dose: 20 mg Warfarin [Coumadin] 5 mg PO DAILY 10/04/17 Amiodarone HCl 200 mg PO DAILY 11/05/17 Multivitamin [Theragran] 1 tab PO DAILY 11/05/17 - Allergies Allergies/Adverse Reactions: Allergies Allergy/AdvReac Type Severity Reaction Status Date / Time No Known Drug Allergies Allergy Verified 11/05/17 02:16 Review of Systems - Constitutional Constitutional: reports: Fatigue, Poor appetite - Ears, Nose & Throat Ears, Nose & Throat: reports: Other (c/o "cotton mouth") - Cardiovascular Cardiovascular: reports: Edema, Lightheadedness, Exertional dyspnea, Decr. exercise tolerance - Respiratory Respiratory: reports: Cough, SOB at rest, SOB with exertion - Gastrointestinal Gastrointestinal: reports: Nausea, Reflux/heartburn, Poor appetite, Early satiety, Other (hiccups) - Genitourinary Genitourinary: reports: Frequency, Urgency - Musculoskeletal Musculoskeletal: reports: Muscle pain, Back pain, Muscle aches, Stiffness, Muscle weakness, Assistive devices (uses walker when remembers) - Integumentary Integumentary: reports: Dryness - Neurological Neurological: reports: General weakness, Dizziness, Memory problems - Psychiatric Psychiatric: reports: Depression, Anxiety - Endocrine Endocrine: reports: Intolerance to cold - Hematologic/Lymphatic Hematologic/Lymphatic: reports: Recurrent infections (currently being treated for pneumonia with increasing WBC) - All Other Systems All Other Systems: reports: Reviewed and negative Physical Exam - Vital Signs Vital Signs: Vital Signs x48h Temp Pulse Pulse Resp BP BP Pulse Ox 11/16/17 19:21 35.6 C L 63 16 88/52 L 11/16/17 15:55 36.3 C L 68 18 87/71 L 95 11/16/17 14:49 109 H 87/51 L - Physical Exam General Appearance: positive: Moderate distress, Anxious, Lethargic, Cachetic Eyes Bilateral: positive: Normal inspection ENT: positive: Other (patient with white patches on tongue / buccal) Neck: positive: Trachea midline (JVD noted) Cardiovascular: positive: Irregular Respiratory: positive: Rales (crackles in bases), Other (moist cough) Abdomen: positive: Soft Skin: positive: Dryness, Bruising Extremities: positive: Pedal edema (2-3 + up to knees with FAIZAN hose on) Neurologic/Psychiatric: positive: Disoriented to place, Disoriented to time, Weakness, Slurred/abnml speech, Depressed mood/affect, Flat affect Palliative Care - POLST Patient has POLST: Yes POLST Status: DNR, Selective Treatment Pain: Location ("all over" most severe in "gut" worsens with eating and hiccups) Tiredness/Fatigue: Severe (7-10) Drowsiness/Sedation: Severe (7-10) Nausea: Mild (1-3) Depression: Severe (7-10) Anxiety: Severe (7-10) Dyspnea: Moderate (4-6) Anorexia: Severe (7-10) Sleep: Variable sleep pattern Feelings of wellbeing/Perceived Quality of Life: Poor, Worsening Performance Status: Patient able to ambulate short distances but has poor activity tolerance able to ambulate to the bathroom with walker and standby assist for safety. Does have some difficulty getting from sitting to standing, has had no recent falls. - Palliative Care Discussion: Patient's perception is he is not "doing good". Having difficulty secondary to he is feeling worse, does admit to increased confusion, more difficulty tracking and is feeling quite exhausted and worried. He is feeling quite hopeless, is never been this sick before, does not know how to "straighten it out". He was hoping to start feeling better, just does not know what to say, is very worried about what is going to happen to him particularly in the context of his declining status. Results - Lab Results Lab results reviewed: Yes Fish Bones: 11/16/17 04:51 11/16/17 04:51 Lab and Imaging Results: Lab Results x24hrs 11/16/17 11/16/17 11/16/17 Range/Units 04:51 04:51 04:51 WBC 12.1 H (4.8-10.8) x10^3/uL RBC 5.03 (4.70-6.10) 10^6/uL Hgb 17.1 (14.0-18.0) g/dL Hct 51.1 (42.0-52.0) % MCV 101.6 H (80.0-94.0) fL MCH 33.9 H (27.0-31.0) pg MCHC 33.4 (32.0-36.0) g/dL RDW 14.5 (12.0-15.0) % Plt Count 148 (130-450) 10^3/uL MPV 10.7 (7.4-11.4) fL Neut # (Auto) 10.7 H (1.5-6.6) 10^3/uL Lymph # (Auto) 0.7 L (1.5-3.5) 10^3/uL [place] # (Auto) 0.7 (0.0-1.0) 10^3/uL Eos # (Auto) 0.0 (0.0-0.7) 10^3/uL Baso # (Auto) 0.0 (0.0-0.1) 10^3/uL Absolute Nucleated RBC 0.01 x10^3/uL Nucleated RBC % 0.1 /100WBC PT 27.0 H (9.9-12.6) secs INR 2.5 H (0.8-1.2) Sodium (135-145) mmol/L Potassium (3.5-5.0) mmol/L Chloride (101-111) mmol/L Carbon Dioxide (21-32) mmol/L Anion Gap (6-13) BUN (6-20) mg/dL Creatinine (0.6-1.2) mg/dL Estimated GFR (MDRD) (>89) Glucose (70-100) mg/dL Calcium (8.5-10.3) mg/dL Total Bilirubin (0.2-1.0) mg/dL AST (10-42) IU/L ALT (10-60) IU/L Alkaline Phosphatase (42-121) IU/L B-Natriuretic Peptide 9001.00 H (5-100) pg/mL Total Protein (6.7-8.2) g/dL Albumin (3.2-5.5) g/dL Globulin (2.1-4.2) g/dL Albumin/Globulin Ratio (1.0-2.2) 11/16/17 Range/Units 04:51 WBC (4.8-10.8) x10^3/uL RBC (4.70-6.10) 10^6/uL Hgb (14.0-18.0) g/dL Hct (42.0-52.0) % MCV (80.0-94.0) fL MCH (27.0-31.0) pg MCHC (32.0-36.0) g/dL RDW (12.0-15.0) % Plt Count (130-450) 10^3/uL MPV (7.4-11.4) fL Neut # (Auto) (1.5-6.6) 10^3/uL Lymph # (Auto) (1.5-3.5) 10^3/uL [place] # (Auto) (0.0-1.0) 10^3/uL Eos # (Auto) (0.0-0.7) 10^3/uL Baso # (Auto) (0.0-0.1) 10^3/uL Absolute Nucleated RBC x10^3/uL Nucleated RBC % /100WBC PT (9.9-12.6) secs INR (0.8-1.2) Sodium 123 L (135-145) mmol/L Potassium 4.3 (3.5-5.0) mmol/L Chloride 84 L (101-111) mmol/L Carbon Dioxide 27 (21-32) mmol/L Anion Gap 12.0 (6-13) BUN 69 H (6-20) mg/dL Creatinine 2.0 H (0.6-1.2) mg/dL Estimated GFR (MDRD) 35 L (>89) Glucose 88 (70-100) mg/dL Calcium 8.7 (8.5-10.3) mg/dL Total Bilirubin 2.2 H (0.2-1.0) mg/dL AST 60 H (10-42) IU/L ALT 94 H (10-60) IU/L Alkaline Phosphatase 128 H (42-121) IU/L B-Natriuretic Peptide (5-100) pg/mL Total Protein 6.1 L (6.7-8.2) g/dL Albumin 3.4 (3.2-5.5) g/dL Globulin 2.7 (2.1-4.2) g/dL Albumin/Globulin Ratio 1.3 (1.0-2.2) Impression and Recommendations - Palliative Care Impression: This is a 57-year-old gentleman who presents with acute on chronic congestive heart failure, with continued high symptom burden and ongoing functional and cognitive decline. Currently adding to patient's complexity is his homelessness, currently awaiting placement. Given patient's his ongoing hypotension, kidney failure, hyponatremia, poor ejection fraction, multiple co- morbidities, with functional and cognitive decline would meet hospice criteria i f it were in alignment of patient's goals. Patient currently more worried about his homelessness, presents with some increased confusion, and does not present with ability to make this decision or focus on this goal at this time to weigh the implications of this decision for the future. Palliative care to continue to follow patient, awaiting final disposition, to assist with ongoing definition of goals. Recommendations/Counseling Done: 1. Oral candidiasis. Would recommend patient be started on nystatin 100,000 units per male 5 mils 4 times daily swish and swallow. Patient on antibiotics/prednisone recently depressed immune system at high risk for occurence. 2. Acute on chronic congestive heart failure. Patient continue to work with hospitalist to maximize medication management. Feeling quite overwhelmed and discouraged as his continued decline, does understand he is getting worse, he is quite exhausted and worried. 3. Advanced care planning. Patient would in discussion with Hospital medical billing and coding instructor, meet current Hospice criteria, but would need to be in alignment with goals of care. Patient's feeling quite overwhelmed and most focused on finding a safe place for him to "land". He does appear much more confused today, unable to further explore goals of care or consider hospice support.Patient at high risk for continued decline, fortunately has made known that he is to be a do not attempt resuscitation, will need to continue to weigh benefits of burdens interventions and treatment decisions of moving forward, if patient unable to participate further in decision-making. His ultimate goal is to find a safe place, where he can live about the last of his days watching TV and comfortable Time Spent: 30 minutes with greater than 50% of this done in counseling and coordination of care with hospitalist, spanish medical interpreter, am concerned patient continues to decline how further to define decision-making moving forward in the context of goals of care if patient not able to participate.
[2017-11-17 05:53] LABS: BASOPHILS % (AUTO) 0.1 %; EOSINOPHILS # (AUTO) 0.1 10^3/uL (0.0-0.7); EOSINOPHILS % (AUTO) 0.6 %; HGB - HEMOGLOBIN 16.6 g/dL (14.0-18.0); LYMPHOCYTES # (AUTO) 0.7 10^3/uL (1.5-3.5); LYMPHOCYTES % (AUTO) 6.7 %; MEAN CORPUSCULAR HGB CONC 33.7 g/dL (32.0-36.0); MEAN CORPUSCULAR VOLUME 100.9 fL (80.0-94.0); MEAN PLATELET VOLUME 9.9 fL (7.4-11.4); MONOCYTES # (AUTO) 0.7 10^3/uL (0.0-1.0); NEUTROPHILS # (AUTO) 8.8 10^3/uL (1.5-6.6); NEUTROPHILS % (AUTO) 85.6 %; PLT - PLATELET COUNT 138 10^3/uL (130-450); RED BLOOD COUNT 4.88 10^6/uL (4.70-6.10); RED CELL DISTRIBUTION WIDTH 14.8 % (12.0-15.0); WHITE BLOOD COUNT 10.3 x10^3/uL (4.8-10.8)
[2017-11-17 05:59] LABS: INR 1.9 (0.8-1.2); PT - PROTHROMBIN TIME 20.8 secs (9.9-12.6)
[2017-11-17] MEDS: PANTOPRAZOLE 40 MG TABLET PO SCH (06:08)
[2017-11-17 06:10] LABS: ALBUMIN 3.1 g/dL (3.2-5.5); ALBUMIN/GLOBULIN RATIO 1.2 (1.0-2.2); BILIRUBIN,TOTAL 2.1 mg/dL (0.2-1.0); CALCIUM 8.4 mg/dL (8.5-10.3); CREATININE 1.6 mg/dL (0.6-1.2); TOTAL PROTEIN 5.6 g/dL (6.7-8.2)
[2017-11-17] MEDS: CEFEPIME 2 GM in SODIUM CHLORIDE 0.9% MINIBAG 100 ML IV SCH ×2 (08:30→21:42)
[2017-11-17] MEDS: SODIUM CHLORIDE FLUSH 0.9% 10 ML SYRINGE IVP SCH ×3 (08:31→16:01)
[2017-11-17] MEDS: TORSEMIDE 20 MG TABLET PO SCH (09:18)
[2017-11-17] MEDS: DOCUSATE SODIUM 250 MG CAPSULE PO SCH (09:18)
[2017-11-17] MEDS: ASPIRIN EC 81 MG TABLET PO SCH (09:18)
[2017-11-17] MEDS: CITALOPRAM 10 MG TABLET PO SCH (09:18)
[2017-11-17] MEDS: SENNA 8.6 MG TABLET PO SCH (09:19)
[2017-11-17] MEDS: SPIRONOLACTONE 25 MG TABLET PO SCH (09:19)
[2017-11-17] MEDS: MIDODRINE 2.5 MG TABLET PO SCH ×3 (09:19→15:57)
[2017-11-17] MEDS: MULTIVITAMIN TABLET PO SCH (09:19)
[2017-11-17] MEDS: POLYETHYLENE GLYCOL 3350 17 GM PACKET PO SCH (09:20)
[2017-11-17] MEDS: METOPROLOL SUCCINATE 25 MG TABLET PO SCH ×2 (14:16→21:47)
[2017-11-17] MEDS: MORPHINE 2 MG/ML CARPUJECT IVP PRN (16:01)
--- NOTE | 2017-11-17 16:03 | PROVIDER PROGRESS NOTE ---
Subjective - Prog Note Date Prog Note Date: 11/17/17 Prog Note Time: 16:00 - Subjective Pt reports feeling: No change Subjective: The patient complains of "low energy" and believes that he will never be able to live alone or carry his heavy back pack again. He denies any new symptoms such as chest pain, nausea, vomiting, rashes, a new cough or new dizziness. Current Medications - Current Medications Current Medications: Active Medications Aspirin (Ecotrin) 81 mg PO DAILY [facility] Last Admin: 11/17/17 09:18 Dose: 81 mg Citalopram Hydrobromide (Celexa) 40 mg PO DAILY [facility] Last Admin: 11/17/17 09:18 Dose: 40 mg Docusate Sodium (Colace 250mg Capsule) 250 - 500 mg PO DAILY [facility] Last Admin: 11/17/17 09:18 Dose: 250 mg Cefepime HCl 2 gm/ Sodium (Chloride) 100 mls @ 200 mls/hr IV BID [facility] Last Infusion: 11/17/17 22:12 Dose: Infused Levalbuterol HCl (Xopenex) 1.25 mg INH RTQ4H PRN PRN Reason: Wheezing Lorazepam (Ativan) 1 mg PO Q4H PRN PRN Reason: Anxiety Metoprolol Succinate (Toprol Xl) 25 mg PO 1400,2200 [facility] Last Admin: 11/17/17 21:47 Dose: Not Given Midodrine () 2.5 mg PO TIDWM [facility] Last Admin: 11/17/17 15:57 Dose: 2.5 mg Morphine Sulfate (Morphine (Carpuject)) 2 mg IVP Q2HR PRN PRN Reason: PAIN Last Admin: 11/17/17 16:01 Dose: 2 mg Multi-Ingredient Mouthwash/Gargle () 30 ml PO Q6H PRN PRN Reason: Heartburn Last Admin: 11/13/17 20:34 Dose: 30 ml Multivitamins (Theragran) 1 tab PO DAILY [facility] Last Admin: 11/17/17 09:19 Dose: 1 tab Nystatin (Mycostatin) 5 ml PO QID PRN PRN Reason: oral thrush Ondansetron HCl (Zofran Inj) 4 mg IVP Q6HR PRN PRN Reason: Nausea / Vomiting Last Admin: 11/12/17 23:50 Dose: 4 mg Ondansetron HCl (Zofran Odt) 4 mg TL Q6HR PRN PRN Reason: Nausea / Vomiting Last Admin: 11/10/17 16:34 Dose: 4 mg Oxycodone HCl (Roxicodone) 5 mg PO Q4HR PRN PRN Reason: Pain 5 to 7 Last Admin: 11/18/17 06:12 Dose: 5 mg Pantoprazole Sodium (Protonix) 40 mg PO QDAC [facility] Last Admin: 11/18/17 06:06 Dose: 40 mg Polyethylene Glycol (Miralax) 17 gm PO DAILY [facility] Last Admin: 11/17/17 09:20 Dose: 17 gm Senna (Senokot) 8.6 - 17.2 mg PO DAILY [facility] Last Admin: 11/17/17 09:19 Dose: 8.6 mg Sodium Chloride (Normal Saline Flush 0.9%) 10 ml IVP PRN PRN PRN Reason: NEEDED PER PROVIDER ORDERS Last Admin: 11/14/17 22:56 Dose: 10 ml Sodium Chloride (Normal Saline Flush 0.9%) 10 ml IVP 0100,0900,1700 [facility] Last Admin: 11/18/17 01:22 Dose: 10 ml Spironolactone (Aldactone) 50 mg PO DAILY [facility] Last Admin: 11/17/17 09:19 Dose: 50 mg Torsemide (Torsemide) 20 mg PO DAILY [facility] Last Admin: 11/17/17 09:18 Dose: 20 mg Warfarin [Coumadin] 5 mg PO DAILY 10/04/17 Amiodarone HCl 200 mg PO DAILY 11/05/17 Multivitamin [Theragran] 1 tab PO DAILY 11/05/17 Objective - Vital Signs/Intake & Output Reviewed Vital Signs: Yes Vital Signs: Vital Signs x48h Temp Pulse Pulse Resp BP Pulse Ox 11/17/17 15:52 36.1 C L 45 L 16 91/65 11/17/17 14:11 72 93/68 11/17/17 12:04 36.5 C 94 16 91/73 93 11/17/17 08:37 36.3 C L 98 16 86/67 L 97 Intake & Output: Intake & Output 11/14/17 11/15/17 11/16/17 11/17/17 23:59 23:59 23:59 23:59 Intake Total 900 1000 1095 600 Output Total 600 6291 136 5422 Balance 300 -350 295 -1450 - Objective General Appearance: positive: Alert, Moderate distress, Anxious Eyes Bilateral: positive: PERRL Eyes: OU Conjunctivae pale, OU Scleral icterus ENT: positive: Pharyngeal erythema, Dry mucous membranes Neck: positive: Thyroid nml, No JVD, Trachea midline, Lymphadenopathy (R), Lymphadenopathy (L), Stiff neck Respiratory: positive: Chest non-tender, No respiratory distress, Other (bilateral scattered crackles.) Cardiovascular: positive: Irregularly irregular, Systolic murmur, Diastolic murmur, Decreased pulse(s) Peripheral Pulses: 1+ Radial (R), 1+ Radial (L) Abdomen: positive: Non-tender, Nml bowel sounds, Other (rounded, soft) Back: positive: Nml inspection Skin: positive: No rash, Warm, Dry Extremities: positive: Pedal edema Neurologic/Psychiatric: positive: Oriented x3, Weakness, Sensory loss, Slurred/abnml speech Reflexes: Bicep (R): 2+, Bicep (L): 2+ - Lab Results Fish Bones: 11/18/17 05:34 11/17/17 05:35 Other Labs: Lab Results x24hrs 11/17/17 11/17/17 11/17/17 Range/Units 06:40 05:35 05:35 WBC 10.3 (4.8-10.8) x10^3/uL RBC 4.88 (4.70-6.10) 10^6/uL Hgb 16.6 (14.0-18.0) g/dL Hct 49.2 (42.0-52.0) % MCV 100.9 H (80.0-94.0) fL MCH 34.0 H (27.0-31.0) pg MCHC 33.7 (32.0-36.0) g/dL RDW 14.8 (12.0-15.0) % Plt Count 138 (130-450) 10^3/uL MPV 9.9 (7.4-11.4) fL Neut # (Auto) 8.8 H (1.5-6.6) 10^3/uL Lymph # (Auto) 0.7 L (1.5-3.5) 10^3/uL [place] # (Auto) 0.7 (0.0-1.0) 10^3/uL Eos # (Auto) 0.1 (0.0-0.7) 10^3/uL Baso # (Auto) 0.0 (0.0-0.1) 10^3/uL Absolute Nucleated RBC 0.01 x10^3/uL Nucleated RBC % 0.1 /100WBC PT (9.9-12.6) secs INR (0.8-1.2) Sodium (135-145) mmol/L Potassium (3.5-5.0) mmol/L Chloride (101-111) mmol/L Carbon Dioxide (21-32) mmol/L Anion Gap (6-13) BUN (6-20) mg/dL Creatinine (0.6-1.2) mg/dL Estimated GFR (MDRD) (>89) Glucose (70-100) mg/dL POC Whole Bld Glucose 111 H (70 - 100) mg/dL Calcium (8.5-10.3) mg/dL Total Bilirubin (0.2-1.0) mg/dL AST (10-42) IU/L ALT (10-60) IU/L Alkaline Phosphatase (42-121) IU/L Ammonia < 10.0 (7-35) umol/L B-Natriuretic Peptide (5-100) pg/mL Total Protein (6.7-8.2) g/dL Albumin (3.2-5.5) g/dL Globulin (2.1-4.2) g/dL Albumin/Globulin Ratio (1.0-2.2) 11/17/17 11/17/17 11/17/17 Range/Units 05:35 05:35 05:35 WBC (4.8-10.8) x10^3/uL RBC (4.70-6.10) 10^6/uL Hgb (14.0-18.0) g/dL Hct (42.0-52.0) % MCV (80.0-94.0) fL MCH (27.0-31.0) pg MCHC (32.0-36.0) g/dL RDW (12.0-15.0) % Plt Count (130-450) 10^3/uL MPV (7.4-11.4) fL Neut # (Auto) (1.5-6.6) 10^3/uL Lymph # (Auto) (1.5-3.5) 10^3/uL [place] # (Auto) (0.0-1.0) 10^3/uL Eos # (Auto) (0.0-0.7) 10^3/uL Baso # (Auto) (0.0-0.1) 10^3/uL Absolute Nucleated RBC x10^3/uL Nucleated RBC % /100WBC PT 20.8 H (9.9-12.6) secs INR 1.9 H (0.8-1.2) Sodium 127 L (135-145) mmol/L Potassium 3.5 (3.5-5.0) mmol/L Chloride 84 L (101-111) mmol/L Carbon Dioxide 30 (21-32) mmol/L Anion Gap 13.0 (6-13) BUN 66 H (6-20) mg/dL Creatinine 1.6 H (0.6-1.2) mg/dL Estimated GFR (MDRD) 45 L (>89) Glucose 60 L* (70-100) mg/dL POC Whole Bld Glucose (70 - 100) mg/dL Calcium 8.4 L (8.5-10.3) mg/dL Total Bilirubin 2.1 H (0.2-1.0) mg/dL AST 54 H (10-42) IU/L ALT 76 H (10-60) IU/L Alkaline Phosphatase 116 (42-121) IU/L Ammonia (7-35) umol/L B-Natriuretic Peptide 7952.00 H (5-100) pg/mL Total Protein 5.6 L (6.7-8.2) g/dL Albumin 3.1 L (3.2-5.5) g/dL Globulin 2.5 (2.1-4.2) g/dL Albumin/Globulin Ratio 1.2 (1.0-2.2) ABX Reporting Has patient been on IV antibiotics over the past 48 hours?: No Assessment/Plan - Problem List (1) Acute on chronic systolic and diastolic heart failure, NYHA class 4 Impression: The patient's BNP today continues to be elevated at 7952, down from a few days ago when it was 9001. This abnormality may be influenced by his kidney function, so it is somewhat expected with the IV lasix that he has been given during this stay. Clinically, the patient appears stable, but has dependent BLE pitting edema, discolored, cyanotic BLEs, less abdominal girth. The patient complains of ongoing fatigue. He continues on torsemide and daily spironolactone, on metoprolol at 25mg. Admission weight was 70.3kg and today his weight has been recorded as 70.5kg. Plan: Continue to monitor fluid status, monitor urine out put, and daily weights. (2) ESTEVAN (acute kidney injury) Impression: The patient has had a steady decline in his kidney function and upon admission was found to have an elevated creatinine of 1.4, that soon worsened to over 2.0, and today is much improved after switching from lasix to torsemide. Plan: Continue daily labs, weights, and strict I/Os. (3) Atrial fibrillation with RVR Impression: The patient has been in this rhythm for at least the past 2 admissions. His rates reach 120-150's at times. He recently had a cardiology consult with Dr. Pickett in [place] who plans to do a cardioversion after the patient is anti coagulated for a while. The patient denies palpitations, chest pain or tightness. He remains on telemetry and is tachycardic with heart rates in the 90's. His metoprolol dose remains at 25mg, and the patient continues to have symptomatic hypotension so was started on Midodrine. Despite my advanced care planning talk with the patient, he still wishes for us to call Dr. Pickett prior to discharge to see about his upcoming cardioversion. Plan: Continue rate control meds. (4) Chronic anticoagulation Impression: The patient is on Warfarin at 5mg PO daily, but was placed on hold for an elevated INR of 4.6, and today it was reduced to 1.9. The patient remains on anticoagulation in hopes to get a cardioversion for his atrial fibrillation as per Dr. Pickett who has recently had a clinic visit with him. Plan: Continue daily INRs, and resume daily Coumadin as per daily INR results. (5) Hypotension Impression: The patient is now symptomatic with his hypotension and has a baseline systolic blood pressure in the 90's. He continues on Midodrine 2.5mg TID with meals to help with this. Plan: Continue to monitor vital signs. Qualifiers: Hypotension type: other hypotension type Qualified Code(s): I95.89 - Other hypotension (6) Elevated LFTs Impression: The patient had very elevated LFTs with an AST/ALT of 128/181, that have improved. The patient does not appear jaundice, but does have bronze skin tone. An abdominal US was ordered and shows moderate ascities, hepatomegaly with mildly contour and imhomogeneous echotexture, without any focal liver lesions. Plan: Continue to monitor, and avoid liver toxic meds. (7) Hepatitis C Impression: Blood testing including Hep C antibody and AB signal cutoff, show +disease. The patient had very elevated LFTs upon admission, which are gradually improved each day. An HIV test was negative. The patient was surprised to hear that he is Hep C positive and states that he has never injected drugs and has not had a sexual partner in several years. Continue advancement toward Palliative/Hospice care. Plan: Provide education and monitor LFTs. Qualifiers: Viral hepatitis chronicity: chronic (8) Do not resuscitate Impression: The patient was informed that he more likely has less than one year to live based on his multi-organ dysfunction and his extremely poor heart function. Plan: Continue DNR code status, and have ongoing conversations, consider palliative care consult. (9) Homelessness Impression: He states that he has been homeless for at least the past year due to rent amounts going too high. Plan: Continue care and await placement.
[2017-11-18] MEDS: oxyCODONE 5 MG TABLET PO PRN ×4 (01:12→17:23)
[2017-11-18] MEDS: SODIUM CHLORIDE FLUSH 0.9% 10 ML SYRINGE IVP SCH ×4 (01:22→23:57)
[2017-11-18 06:01] LABS: BASOPHILS % (AUTO) 0.1 %; EOSINOPHILS # (AUTO) 0.1 10^3/uL (0.0-0.7); EOSINOPHILS % (AUTO) 0.6 %; HGB - HEMOGLOBIN 17.2 g/dL (14.0-18.0); LYMPHOCYTES # (AUTO) 0.7 10^3/uL (1.5-3.5); LYMPHOCYTES % (AUTO) 6.9 %; MEAN CORPUSCULAR HGB CONC 33.5 g/dL (32.0-36.0); MEAN CORPUSCULAR VOLUME 101.7 fL (80.0-94.0); MEAN PLATELET VOLUME 9.7 fL (7.4-11.4); MONOCYTES # (AUTO) 0.6 10^3/uL (0.0-1.0); MONOCYTES % (AUTO) 5.7 %; NEUTROPHILS # (AUTO) 8.7 10^3/uL (1.5-6.6); NEUTROPHILS % (AUTO) 86.7 %; PLT - PLATELET COUNT 154 10^3/uL (130-450); RED BLOOD COUNT 5.04 10^6/uL (4.70-6.10); RED CELL DISTRIBUTION WIDTH 14.5 % (12.0-15.0)
[2017-11-18] MEDS: PANTOPRAZOLE 40 MG TABLET PO SCH (06:06)
[2017-11-18] MEDS: MORPHINE 2 MG/ML CARPUJECT IVP PRN ×2 (08:51→12:34)
[2017-11-18] MEDS: CEFEPIME 2 GM in SODIUM CHLORIDE 0.9% MINIBAG 100 ML IV SCH ×2 (08:56→20:10)
[2017-11-18] MEDS: SPIRONOLACTONE 25 MG TABLET PO SCH (08:56)
[2017-11-18] MEDS: ASPIRIN EC 81 MG TABLET PO SCH (08:57)
[2017-11-18] MEDS: MIDODRINE 2.5 MG TABLET PO SCH ×3 (08:57→17:23)
[2017-11-18] MEDS: TORSEMIDE 20 MG TABLET PO SCH (08:57)
[2017-11-18] MEDS: CITALOPRAM 10 MG TABLET PO SCH (08:57)
[2017-11-18] MEDS: DOCUSATE SODIUM 250 MG CAPSULE PO SCH (08:57)
[2017-11-18] MEDS: MULTIVITAMIN TABLET PO SCH (08:57)
[2017-11-18] MEDS: POLYETHYLENE GLYCOL 3350 17 GM PACKET PO SCH (08:57)
[2017-11-18] MEDS: SENNA 8.6 MG TABLET PO SCH (08:58)
[2017-11-18] MEDS: SACCHAROMYCES BOULARDII 250 MG CAPSULE PO SCH ×2 (09:33→17:23)
[2017-11-18] MEDS: SODIUM CHLORIDE FLUSH 0.9% 10 ML SYRINGE IVP PRN ×2 (12:36→20:10)
[2017-11-18] MEDS: GABAPENTIN 100 MG CAPSULE PO SCH ×2 (13:59→21:48)
[2017-11-18] MEDS: METOPROLOL SUCCINATE 25 MG TABLET PO SCH ×2 (13:59→21:33)
[2017-11-18] MEDS ORDERED: WARFARIN 5 MG TABLET PO SCH (19:18)
--- NOTE | 2017-11-18 19:18 | PROVIDER PROGRESS NOTE ---
Subjective - Prog Note Date Prog Note Date: 11/18/17 Prog Note Time: 19:17 - Subjective Pt reports feeling: No change Subjective: João complains of BLE pain in his feet due to increased edema. He denies chest pain, nausea, vomiting, rashes, problems breathing or a new cough. He continues to struggle with a poor appetite and very poor activity tolerance. Current Medications - Current Medications Current Medications: Active Medications Aspirin (Ecotrin) 81 mg PO DAILY [facility] Last Admin: 11/18/17 08:57 Dose: 81 mg Citalopram Hydrobromide (Celexa) 40 mg PO DAILY [facility] Last Admin: 11/18/17 08:57 Dose: 40 mg Docusate Sodium (Colace 250mg Capsule) 250 - 500 mg PO DAILY [facility] Last Admin: 11/18/17 08:57 Dose: 250 mg Gabapentin (Neurontin) 100 mg PO TID [facility] Last Admin: 11/18/17 13:59 Dose: 100 mg Cefepime HCl 2 gm/ Sodium (Chloride) 100 mls @ 200 mls/hr IV BID [facility] Last Infusion: 11/18/17 09:30 Dose: Infused Levalbuterol HCl (Xopenex) 1.25 mg INH RTQ4H PRN PRN Reason: Wheezing Lorazepam (Ativan) 1 mg PO Q4H PRN PRN Reason: Anxiety Metoprolol Succinate (Toprol Xl) 25 mg PO 1400,2200 [facility] Last Admin: 11/18/17 13:59 Dose: 25 mg Midodrine () 2.5 mg PO TIDWM [facility] Last Admin: 11/18/17 17:23 Dose: 2.5 mg Morphine Sulfate (Morphine (Carpuject)) 2 mg IVP Q2HR PRN PRN Reason: PAIN Last Admin: 11/18/17 12:34 Dose: 2 mg Multi-Ingredient Mouthwash/Gargle () 30 ml PO Q6H PRN PRN Reason: Heartburn Last Admin: 11/13/17 20:34 Dose: 30 ml Multivitamins (Theragran) 1 tab PO DAILY [facility] Last Admin: 11/18/17 08:57 Dose: 1 tab Nystatin (Mycostatin) 5 ml PO QID PRN PRN Reason: oral thrush Ondansetron HCl (Zofran Inj) 4 mg IVP Q6HR PRN PRN Reason: Nausea / Vomiting Last Admin: 11/12/17 23:50 Dose: 4 mg Ondansetron HCl (Zofran Odt) 4 mg TL Q6HR PRN PRN Reason: Nausea / Vomiting Last Admin: 11/10/17 16:34 Dose: 4 mg Oxycodone HCl (Roxicodone) 5 mg PO Q4HR PRN PRN Reason: Pain 5 to 7 Last Admin: 11/18/17 17:23 Dose: 5 mg Pantoprazole Sodium (Protonix) 40 mg PO QDAC [facility] Last Admin: 11/18/17 06:06 Dose: 40 mg Polyethylene Glycol (Miralax) 17 gm PO DAILY [facility] Last Admin: 11/18/17 08:57 Dose: Not Given Saccharomyces Boulardii (Florastor) 250 mg PO BIDWM [facility] Last Admin: 11/18/17 17:23 Dose: 250 mg Senna (Senokot) 8.6 - 17.2 mg PO DAILY [facility] Last Admin: 11/18/17 08:58 Dose: Not Given Sodium Chloride (Normal Saline Flush 0.9%) 10 ml IVP PRN PRN PRN Reason: NEEDED PER PROVIDER ORDERS Last Admin: 11/18/17 12:36 Dose: 10 ml Sodium Chloride (Normal Saline Flush 0.9%) 10 ml IVP 0100,0900,1700 [facility] Last Admin: 11/18/17 17:24 Dose: Not Given Spironolactone (Aldactone) 50 mg PO DAILY [facility] Last Admin: 11/18/17 08:56 Dose: 50 mg Torsemide (Torsemide) 20 mg PO DAILY [facility] Last Admin: 11/18/17 08:57 Dose: 20 mg Warfarin Sodium (Coumadin) 5 mg PO ONCE ONE Stop: 11/18/17 19:19 Warfarin Sodium (Coumadin) 5 mg PO QDWARFARIN [facility] Warfarin [Coumadin] 5 mg PO DAILY 10/04/17 Amiodarone HCl 200 mg PO DAILY 11/05/17 Multivitamin [Theragran] 1 tab PO DAILY 11/05/17 Objective - Vital Signs/Intake & Output Reviewed Vital Signs: Yes Vital Signs: Vital Signs x48h Temp Pulse Resp BP Pulse Ox 11/18/17 16:31 36.5 C 119 H 15 91/73 94 11/18/17 12:48 35.7 C L 71 16 98/87 H 96 Intake & Output: Intake & Output 11/15/17 11/16/17 11/17/17 11/18/17 23:59 23:59 23:59 23:59 Intake Total 1000 1095 960 440 Output Total 6963 021 9422 500 Balance -350 077 -9620 -60 - Objective General Appearance: positive: Alert, Moderate distress, Anxious, Lethargic Eyes: OU Conjunctivae pale, OU Scleral icterus ENT: positive: Dry mucous membranes Neck: positive: No JVD, Trachea midline, Stiff neck Respiratory: positive: Chest non-tender, No respiratory distress, Rhonchi Cardiovascular: positive: Irregularly irregular, Systolic murmur, Diastolic murmur, Decreased pulse(s) Peripheral Pulses: 1+ Radial (R), 1+ Radial (L) Abdomen: positive: Non-tender, Nml bowel sounds Back: positive: Nml inspection Skin: positive: No rash, Warm, Dry, Cyanosis, Pallor Extremities: positive: Pedal edema, Joint swelling Neurologic/Psychiatric: positive: Sensory loss, Slurred/abnml speech, Depressed mood/affect, Other (slight confusion at times today.) Reflexes: Bicep (R): 2+, Bicep (L): 2+ - Lab Results Fish Bones: 11/19/17 04:40 11/19/17 04:40 Other Labs: Lab Results x24hrs 11/18/17 11/18/17 11/18/17 Range/Units 11:13 07:50 05:34 WBC 10.0 (4.8-10.8) x10^3/uL RBC 5.04 (4.70-6.10) 10^6/uL Hgb 17.2 (14.0-18.0) g/dL Hct 51.3 (42.0-52.0) % MCV 101.7 H (80.0-94.0) fL MCH 34.0 H (27.0-31.0) pg MCHC 33.5 (32.0-36.0) g/dL RDW 14.5 (12.0-15.0) % Plt Count 154 (130-450) 10^3/uL MPV 9.7 (7.4-11.4) fL Neut # (Auto) 8.7 H (1.5-6.6) 10^3/uL Lymph # (Auto) 0.7 L (1.5-3.5) 10^3/uL Richardson # (Auto) 0.6 (0.0-1.0) 10^3/uL Eos # (Auto) 0.1 (0.0-0.7) 10^3/uL Baso # (Auto) 0.0 (0.0-0.1) 10^3/uL Absolute Nucleated RBC 0.01 x10^3/uL Nucleated RBC % 0.1 /100WBC POC Whole Bld Glucose 93 82 (70 - 100) mg/dL B-Natriuretic Peptide (5-100) pg/mL 11/18/17 Range/Units 05:34 WBC (4.8-10.8) x10^3/uL RBC (4.70-6.10) 10^6/uL Hgb (14.0-18.0) g/dL Hct (42.0-52.0) % MCV (80.0-94.0) fL MCH (27.0-31.0) pg MCHC (32.0-36.0) g/dL RDW (12.0-15.0) % Plt Count (130-450) 10^3/uL MPV (7.4-11.4) fL Neut # (Auto) (1.5-6.6) 10^3/uL Lymph # (Auto) (1.5-3.5) 10^3/uL Richardson # (Auto) (0.0-1.0) 10^3/uL Eos # (Auto) (0.0-0.7) 10^3/uL Baso # (Auto) (0.0-0.1) 10^3/uL Absolute Nucleated RBC x10^3/uL Nucleated RBC % /100WBC POC Whole Bld Glucose (70 - 100) mg/dL B-Natriuretic Peptide 7687.00 H (5-100) pg/mL ABX Reporting Has patient been on IV antibiotics over the past 48 hours?: No Assessment/Plan - Problem List (1) Acute on chronic systolic and diastolic heart failure, NYHA class 4 Impression: The patient's BNP today continues to be elevated at 7952, down from a few days ago when it was 9001. This abnormality may be influenced by his kidney function, so it is somewhat expected with the IV lasix that he has been given during this stay. Clinically, the patient appears stable, but has dependent BLE pitting edema, discolored, cyanotic BLEs, less abdominal girth. The patient complains of ongoing fatigue. He continues on torsemide and daily spironolactone, on metoprolol at 25mg. Admission weight was 70.3kg and today his weight has been recorded as 68.5kg. A wound consult was made to assist with management of his chronic BLE edema. Plan: Continue to monitor fluid status, monitor urine out put, and daily weights. (2) ESTEVAN (acute kidney injury) Impression: The patient has had a steady decline in his kidney function and upon admission was found to have an elevated creatinine of 1.4, that soon worsened to over 2.0, and is much improved after switching from lasix to torsemide. No chemistry labs were checked today, so I will add them for the AM. Plan: Continue daily labs, weights, and strict I/Os. (3) Atrial fibrillation with RVR Impression: The patient has been in this rhythm for at least the past 2 admissions. His rates reach 120-150's at times. He recently had a cardiology consult with Dr. Pickett in [place] who plans to do a cardioversion after the patient is anticoagulated for a while. The patient denies palpitations, chest pain or tightness. He remains on telemetry and is tachycardic with heart rates in the 90's. His metoprolol dose remains at 25mg, and the patient continues to have symptomatic hypotension so was started on Midodrine. Despite my advanced care planning talk with the patient, he still wishes for us to call Dr. Pickett prior to discharge to see about his upcoming cardioversion. Plan: Continue rate control meds. (4) Chronic anticoagulation Impression: The patient is on Warfarin at 5mg PO daily, but was placed on hold for an elevated INR of 4.6, and today it was reduced to 1.9. The patient remains on anticoagulation in hopes to get a cardioversion for his atrial fibrillation as per Dr. Pickett who has recently had a clinic visit with him. I have added an INR as a daily lab and resumed his daily coumadin at 5mg PO. Plan: Continue daily INRs, and continue daily Coumadin as per daily INR results. (5) Hypotension Impression: The patient is now symptomatic with his hypotension and has a baseline systolic blood pressure in the 90's. He continues on Midodrine 2.5mg TID with meals to help with this. Plan: Continue to monitor vital signs. Qualifiers: Hypotension type: other hypotension type Qualified Code(s): I95.89 - Other hypotension (6) Elevated LFTs Impression: The patient had very elevated LFTs with an AST/ALT of 128/181, that have improved. The patient does not appear jaundice, but does have bronze skin tone. An abdominal US was ordered and shows moderate ascities, hepatomegaly with mildly contour and imhomogeneous echotexture, without any focal liver lesions. Plan: Continue to monitor, and avoid liver toxic meds. (7) Hepatitis C Impression: Blood testing including Hep C antibody and AB signal cutoff, show +disease. The patient had very elevated LFTs upon admission, which are gradually improved each day. An HIV test was negative. The patient was surprised to hear that he is Hep C positive and states that he has never injected drugs and has not had a sexual partner in several years. Continue advancement toward Palliative/Hospice care. Plan: Provide education and monitor LFTs. Qualifiers: Viral hepatitis chronicity: chronic (8) Do not resuscitate Impression: The patient was informed that he more likely has less than one year to live based on his multi-organ dysfunction and his extremely poor heart function. Plan: Continue DNR code status, and have ongoing conversations, consider palliative care consult. (9) Homelessness Impression: He states that he has been homeless for at least the past year due to rent amounts going too high. Plan: Continue care and await placement.
[2017-11-19] MEDS: oxyCODONE 5 MG TABLET PO PRN ×3 (04:37→23:41)
[2017-11-19 05:13] LABS: BASOPHILS % (AUTO) 0.3 %; EOSINOPHILS # (AUTO) 0.1 10^3/uL (0.0-0.7); EOSINOPHILS % (AUTO) 0.9 %; HGB - HEMOGLOBIN 16.7 g/dL (14.0-18.0); LYMPHOCYTES # (AUTO) 0.5 10^3/uL (1.5-3.5); LYMPHOCYTES % (AUTO) 4.7 %; MEAN CORPUSCULAR HEMOGLOBIN 33.8 pg (27.0-31.0); MEAN CORPUSCULAR HGB CONC 33.4 g/dL (32.0-36.0); MEAN CORPUSCULAR VOLUME 101.2 fL (80.0-94.0); MEAN PLATELET VOLUME 9.7 fL (7.4-11.4); MONOCYTES # (AUTO) 0.7 10^3/uL (0.0-1.0); MONOCYTES % (AUTO) 6.8 %; NEUTROPHILS # (AUTO) 9.1 10^3/uL (1.5-6.6); NEUTROPHILS % (AUTO) 87.3 %; PLT - PLATELET COUNT 132 10^3/uL (130-450); RED BLOOD COUNT 4.94 10^6/uL (4.70-6.10); RED CELL DISTRIBUTION WIDTH 14.9 % (12.0-15.0); WHITE BLOOD COUNT 10.4 x10^3/uL (4.8-10.8)
[2017-11-19 05:19] LABS: INR 1.3 (0.8-1.2); PT - PROTHROMBIN TIME 14.4 secs (9.9-12.6)
[2017-11-19 05:42] LABS: ALBUMIN 3.5 g/dL (3.2-5.5); ALBUMIN/GLOBULIN RATIO 1.3 (1.0-2.2); BILIRUBIN,TOTAL 2.6 mg/dL (0.2-1.0); CALCIUM 8.3 mg/dL (8.5-10.3); CREATININE 1.1 mg/dL (0.6-1.2); TOTAL PROTEIN 6.3 g/dL (6.7-8.2)
[2017-11-19] MEDS: GABAPENTIN 100 MG CAPSULE PO SCH ×2 (06:56→14:05)
[2017-11-19] MEDS: PANTOPRAZOLE 40 MG TABLET PO SCH (07:02)
[2017-11-19] MEDS: SPIRONOLACTONE 25 MG TABLET PO SCH (08:58)
[2017-11-19] MEDS: CITALOPRAM 10 MG TABLET PO SCH (08:58)
[2017-11-19] MEDS: POLYETHYLENE GLYCOL 3350 17 GM PACKET PO SCH (08:58)
[2017-11-19] MEDS: MULTIVITAMIN TABLET PO SCH (08:58)
[2017-11-19] MEDS: ASPIRIN EC 81 MG TABLET PO SCH (08:58)
[2017-11-19] MEDS: TORSEMIDE 20 MG TABLET PO SCH (08:58)
[2017-11-19] MEDS: SACCHAROMYCES BOULARDII 250 MG CAPSULE PO SCH ×2 (08:58→18:02)
[2017-11-19] MEDS: MIDODRINE 2.5 MG TABLET PO SCH ×3 (08:58→18:02)
[2017-11-19] MEDS: DOCUSATE SODIUM 250 MG CAPSULE PO SCH (08:58)
[2017-11-19] MEDS: SENNA 8.6 MG TABLET PO SCH (08:59)
[2017-11-19] MEDS: SODIUM CHLORIDE FLUSH 0.9% 10 ML SYRINGE IVP SCH ×3 (08:59→23:41)
[2017-11-19] MEDS: CEFEPIME 2 GM in SODIUM CHLORIDE 0.9% MINIBAG 100 ML IV SCH (08:59)
[2017-11-19] MEDS ORDERED: WARFARIN 1 MG TABLET PO SCH (09:10)
[2017-11-19] MEDS ORDERED: WARFARIN 5 MG TABLET PO SCH (14:00)
[2017-11-19] MEDS: METOPROLOL SUCCINATE 25 MG TABLET PO SCH ×3 (14:05→20:32)
--- NOTE | 2017-11-19 15:13 | PROVIDER PROGRESS NOTE ---
Subjective - Prog Note Date Prog Note Date: 11/19/17 Prog Note Time: 15:21 - Subjective Pt reports feeling: No change Subjective: João appears confused and complains of "just wanting a cigarette", otherwise still complains of BLE pain. He denies chest pain, nausea, vomiting, rashes, bleeding, or a new cough. Current Medications - Current Medications Current Medications: Active Medications Aspirin (Ecotrin) 81 mg PO DAILY [facility] Last Admin: 11/19/17 08:58 Dose: 81 mg Citalopram Hydrobromide (Celexa) 40 mg PO DAILY [facility] Last Admin: 11/19/17 08:58 Dose: 40 mg Levalbuterol HCl (Xopenex) 1.25 mg INH RTQ4H PRN PRN Reason: Wheezing Levofloxacin (Levaquin) 750 mg PO DAILY [facility] Lorazepam (Ativan) 1 mg PO Q4H PRN PRN Reason: Anxiety Metoprolol Succinate (Toprol Xl) 25 mg PO 0800,1700 [facility] Midodrine () 2.5 mg PO TIDWM [facility] Last Admin: 11/19/17 14:04 Dose: 2.5 mg Morphine Sulfate (Roxanol) 10 mg PO Q2HR PRN PRN Reason: PAIN Multi-Ingredient Mouthwash/Gargle () 30 ml PO Q6H PRN PRN Reason: Heartburn Last Admin: 11/13/17 20:34 Dose: 30 ml Multivitamins (Theragran) 1 tab PO DAILY [facility] Last Admin: 11/19/17 08:58 Dose: 1 tab Nicotine (Nicoderm) 1 patch TOP DAILY [facility] Nystatin (Mycostatin) 5 ml PO QID PRN PRN Reason: oral thrush Ondansetron HCl (Zofran Odt) 4 mg TL Q6HR PRN PRN Reason: Nausea / Vomiting Last Admin: 11/10/17 16:34 Dose: 4 mg Oxycodone HCl (Roxicodone) 5 mg PO Q4HR PRN PRN Reason: Pain 5 to 7 Last Admin: 11/19/17 10:19 Dose: 5 mg Pantoprazole Sodium (Protonix) 40 mg PO QDAC [facility] Last Admin: 11/19/17 07:02 Dose: 40 mg Polyethylene Glycol (Miralax) 17 gm PO DAILY [facility] Last Admin: 11/19/17 08:58 Dose: Not Given Saccharomyces Boulardii (Florastor) 250 mg PO BIDWM [facility] Last Admin: 11/19/17 08:58 Dose: 250 mg Senna (Senokot) 8.6 - 17.2 mg PO DAILY [facility] Last Admin: 11/19/17 08:59 Dose: Not Given Sodium Chloride (Normal Saline Flush 0.9%) 10 ml IVP PRN PRN PRN Reason: NEEDED PER PROVIDER ORDERS Last Admin: 11/18/17 20:10 Dose: 10 ml Sodium Chloride (Normal Saline Flush 0.9%) 10 ml IVP 0100,0900,1700 [facility] Last Admin: 11/19/17 08:59 Dose: 10 ml Spironolactone (Aldactone) 50 mg PO DAILY [facility] Last Admin: 11/19/17 08:58 Dose: 50 mg Torsemide (Torsemide) 20 mg PO DAILY [facility] Last Admin: 11/19/17 08:58 Dose: 20 mg Warfarin [Coumadin] 5 mg PO DAILY 10/04/17 Amiodarone HCl 200 mg PO DAILY 11/05/17 Multivitamin [Theragran] 1 tab PO DAILY 11/05/17 Objective - Vital Signs/Intake & Output Reviewed Vital Signs: Yes Vital Signs: Vital Signs x48h Temp Pulse Resp BP Pulse Ox 11/19/17 13:00 36.3 C L 63 19 76/59 L 89 L 11/19/17 07:40 36.2 C L 64 19 93/72 90 L Intake & Output: Intake & Output 11/16/17 11/17/17 11/18/17 11/19/17 23:59 23:59 23:59 23:59 Intake Total 1466 996 0655 1300 Output Total 800 2450 500 1300 Balance 295 -1490 580 0 - Objective General Appearance: positive: Alert, Moderate distress, Anxious Eyes Bilateral: positive: No lid inflammation Eyes: OU Conjunctivae pale, OU Scleral icterus ENT: positive: Pharyngeal erythema, Dry mucous membranes Neck: positive: No JVD, Lymphadenopathy (R), Lymphadenopathy (L), Stiff neck Respiratory: positive: Chest non-tender, Wheezes, Rhonchi Cardiovascular: positive: Tachycardia, Systolic murmur, Diastolic murmur, Decreased pulse(s) Peripheral Pulses: 1+ Radial (R), 1+ Radial (L) Abdomen: positive: Non-tender, Nml bowel sounds, Other (rounded, firm) Back: positive: Nml inspection Skin: positive: No rash, Warm, Dry, Cyanosis, Pallor Extremities: positive: Pedal edema, Joint swelling, Other (BLEs with pitting edema, discoloration, and cyanosis.) Neurologic/Psychiatric: positive: Disoriented to time, Weakness, Sensory loss, Slurred/abnml speech, Depressed mood/affect Reflexes: Bicep (R): 2+, Bicep (L): 2+ - Lab Results Fish Bones: 11/19/17 04:40 11/19/17 04:40 Other Labs: Lab Results x24hrs 11/19/17 11/19/17 11/19/17 Range/Units 07:27 04:40 04:40 WBC (4.8-10.8) x10^3/uL RBC (4.70-6.10) 10^6/uL Hgb (14.0-18.0) g/dL Hct (42.0-52.0) % MCV (80.0-94.0) fL MCH (27.0-31.0) pg MCHC (32.0-36.0) g/dL RDW (12.0-15.0) % Plt Count (130-450) 10^3/uL MPV (7.4-11.4) fL Neut # (Auto) (1.5-6.6) 10^3/uL Lymph # (Auto) (1.5-3.5) 10^3/uL Stone # (Auto) (0.0-1.0) 10^3/uL Eos # (Auto) (0.0-0.7) 10^3/uL Baso # (Auto) (0.0-0.1) 10^3/uL Absolute Nucleated RBC x10^3/uL Nucleated RBC % /100WBC PT 14.4 H (9.9-12.6) secs INR 1.3 H (0.8-1.2) Sodium 127 L (135-145) mmol/L Potassium 3.1 L (3.5-5.0) mmol/L Chloride 83 L (101-111) mmol/L Carbon Dioxide 31 (21-32) mmol/L Anion Gap 13.0 (6-13) BUN 45 H (6-20) mg/dL Creatinine 1.1 (0.6-1.2) mg/dL Estimated GFR (MDRD) 69 L (>89) Glucose 89 (70-100) mg/dL POC Whole Bld Glucose 70 (70 - 100) mg/dL Calcium 8.3 L (8.5-10.3) mg/dL Total Bilirubin 2.6 H (0.2-1.0) mg/dL AST 43 H (10-42) IU/L ALT 62 H (10-60) IU/L Alkaline Phosphatase 115 (42-121) IU/L B-Natriuretic Peptide (5-100) pg/mL Total Protein 6.3 L (6.7-8.2) g/dL Albumin 3.5 (3.2-5.5) g/dL Globulin 2.8 (2.1-4.2) g/dL Albumin/Globulin Ratio 1.3 (1.0-2.2) 11/19/17 11/19/17 Range/Units 04:40 04:40 WBC 10.4 (4.8-10.8) x10^3/uL RBC 4.94 (4.70-6.10) 10^6/uL Hgb 16.7 (14.0-18.0) g/dL Hct 50.0 (42.0-52.0) % MCV 101.2 H (80.0-94.0) fL MCH 33.8 H (27.0-31.0) pg MCHC 33.4 (32.0-36.0) g/dL RDW 14.9 (12.0-15.0) % Plt Count 132 (130-450) 10^3/uL MPV 9.7 (7.4-11.4) fL Neut # (Auto) 9.1 H (1.5-6.6) 10^3/uL Lymph # (Auto) 0.5 L (1.5-3.5) 10^3/uL Stone # (Auto) 0.7 (0.0-1.0) 10^3/uL Eos # (Auto) 0.1 (0.0-0.7) 10^3/uL Baso # (Auto) 0.0 (0.0-0.1) 10^3/uL Absolute Nucleated RBC 0.00 x10^3/uL Nucleated RBC % 0.0 /100WBC PT (9.9-12.6) secs INR (0.8-1.2) Sodium (135-145) mmol/L Potassium (3.5-5.0) mmol/L Chloride (101-111) mmol/L Carbon Dioxide (21-32) mmol/L Anion Gap (6-13) BUN (6-20) mg/dL Creatinine (0.6-1.2) mg/dL Estimated GFR (MDRD) (>89) Glucose (70-100) mg/dL POC Whole Bld Glucose (70 - 100) mg/dL Calcium (8.5-10.3) mg/dL Total Bilirubin (0.2-1.0) mg/dL AST (10-42) IU/L ALT (10-60) IU/L Alkaline Phosphatase (42-121) IU/L B-Natriuretic Peptide 8843.00 H (5-100) pg/mL Total Protein (6.7-8.2) g/dL Albumin (3.2-5.5) g/dL Globulin (2.1-4.2) g/dL Albumin/Globulin Ratio (1.0-2.2) ABX Reporting Has patient been on IV antibiotics over the past 48 hours?: Yes Assessment/Plan - Problem List (1) Confusion Impression: João had been very sharp without evidence of memory impairment, but for the past several days has been notably more confused and is found without his oxygen. He continues to be treated for his pneumonia with IV cefepime, and yesterday was started on gabapentin for his BLE foot pain. Today, in attempts to update him on his Cardioversion question, he claims that he was just at [facility] yesterday to see Dr. Hughes. There are several reasons that he could be more confused including the addition of gabapentin, prolonged electrolyte abnormalities or hypoxia. Plan: Continue to monitor, d/c gabapentin, change IV antibiotic to oral. (2) Hypoxia Impression: The patient has dusky, bronze skin tone with cyanotic areas to all of his extremities, to his nose, around his mouth and his nail beds upon exam. He is encouraged to continue to wear his oxygen, but is found without it. I have asked nursing to please ensure that João wears his oxygen for comfort and to reduce his confusion. Plan: Orders for continuous oxygen, respiratory care. (3) Acute on chronic systolic and diastolic heart failure, NYHA class 4 Impression: The patient's BNP today is up to 8843 from 7952 yesterday. His weight is recorded as 66kg down from 68.5kg yesterday. He continues on a fluid restriction of 1800ml/day. Clinically, the patient appears stable, but has dependent BLE pitting edema, discolored, cyanotic BLEs, stable abdominal girth. The patient complains of ongoing fatigue and is now showing signs of increased confusion. He continues on torsemide, spironolactone, on metoprolol at 25mg. Plan: Continue to monitor fluid status, monitor urine out put, and daily weig hts. (4) ESTEVAN (acute kidney injury) Impression: The patient has had a steady decline in his kidney function and upon admission was found to have an elevated creatinine of 1.4, that soon worsened to over 2.0, and is much improved after switching from lasix to torsemide. Today the patient's creatinine is the best that it has been for quite some time at 1.1. Plan: Continue daily labs, weights, and strict I/Os. (5) Atrial fibrillation with RVR Impression: The patient has been in this rhythm for at least the past 2 admissions. His rates reach 120-150's at times. He recently had a cardiology consult with Dr. San, which I spoke with today. He states that the cardioversion was really a "last ditch effort", as he had nothing else to offer him due to his profoundly poor heart function. This was relayed to João today, and I also left him a note to remind him that the Cardioversion is no longer an option. The patient denies palpitations, chest pain or tightness. His metoprolol dose remains at 25mg, and the patient continues to have symptomatic hypotension so he continues on Midodrine. Plan: Continue rate control meds, and discontinue Warfarin as a cardioversion will not be done. (6) Chronic anticoagulation Impression: The patient was on Warfarin at 5mg PO daily, but today, this was discontinued after a discussion with Dr. San, Cardiology. There is no longer a need to keep him anticoagulated as it will not prolong his life and is likely adding to his discomfort. After today, this diagnosis is resolved. Plan: Monitor for bleeding. (7) Hypotension Impression: The patient is now symptomatic with his hypotension and has a baseline systolic blood pressure in the 90's. He continues on Midodrine 2.5mg TID with meals to help with this. Plan: Continue to monitor vital signs. Qualifiers: Hypotension type: other hypotension type Qualified Code(s): I95.89 - Other hypotension (8) Do not resuscitate Impression: The patient was informed that he more likely has less than one year to live ba sed on his multi-organ dysfunction and his extremely poor heart function. Palliative care is following and we are awaiting placement with Hospice care. Plan: Continue DNR code status, and have ongoing conversations, consider palliative care consult.
--- NOTE | 2017-11-19 17:16 | CONSULTATION NOTE ---
Palliative Care Follow Up - Referral Referring Provider: Hong ARREDONDO Time of Visit: [id number] Referral setting: Hospitalized patient Referral Reason: CHF/Goals of care - Information Sources Records reviewed: RN notes reviewed, Previous records reviewed History/Review of Systems obtained from: Patient, Nursing Exam limitations: Clinical condition (patient with fluctuating mental status) - History of Present Illness Update Brief HPI Update: This is a 57-year-old gentleman who presents with a fairly complex history influenced by multiple factors. Patient is currently homeless, this is added to the complexity of his care, he was actually originally diagnosed with congestive heart failure in April 2017, on his initial admit was noted to have atrial fib, followed by the [facility] as well as new bottle tester. He had another admission 10/04-10/14 for acute on chronic systolic heart failure, with an ejection fraction at that time found to be 20%, bilateral valve regurgitation. He has continued to struggle with ongoing progressive shortness of breath, intermittent exacerbations and increased lower extremity swelling. He was admitted this episode 11/05 with yet again worsening heart failure, with an ejection fraction of less than 20%, it has been very complicated to find balance for him as far as diuretics, kidney failure, liver congestion, found positive for hepatitis C, and has continued to have fluctuating BNP as well as severe hypotension. Patient also was treated for pneumonia, now transitioned over to oral antibiotics. Palliative care meeting with patient regarding goals of care, patient is getting somewhat impatient with the process. He does understand the seriousness of his illness, limited life expectancy, and does not want to " on the streets". Was assessed by [facility], but unable to find placement through Medicaid, currently awaiting to see if "friends" able to find placement for private pay and funding. Social History - Living Situation Living arrangement: Homeless Living Situation: Alone Medications/Allergies - Medications Active Medication List: Active Medications Aspirin (Ecotrin) 81 mg PO DAILY [facility] Last Admin: 11/19/17 08:58 Dose: 81 mg Citalopram Hydrobromide (Celexa) 40 mg PO DAILY [facility] Last Admin: 11/19/17 08:58 Dose: 40 mg Levalbuterol HCl (Xopenex) 1.25 mg INH RTQ4H PRN PRN Reason: Wheezing Levofloxacin (Levaquin) 750 mg PO DAILY [facility] Lorazepam (Ativan) 1 mg PO Q4H PRN PRN Reason: Anxiety Metoprolol Succinate (Toprol Xl) 25 mg PO 0800,1700 [facility] Midodrine () 2.5 mg PO TIDWM [facility] Last Admin: 11/19/17 14:04 Dose: 2.5 mg Morphine Sulfate (Roxanol) 10 mg PO Q2HR PRN PRN Reason: PAIN Multi-Ingredient Mouthwash/Gargle () 30 ml PO Q6H PRN PRN Reason: Heartburn Last Admin: 11/13/17 20:34 Dose: 30 ml Multivitamins (Theragran) 1 tab PO DAILY [facility] Last Admin: 11/19/17 08:58 Dose: 1 tab Nicotine (Nicoderm) 1 patch TOP DAILY [facility] Nystatin (Mycostatin) 5 ml PO QID PRN PRN Reason: oral thrush Ondansetron HCl (Zofran Odt) 4 mg TL Q6HR PRN PRN Reason: Nausea / Vomiting Last Admin: 11/10/17 16:34 Dose: 4 mg Oxycodone HCl (Roxicodone) 5 mg PO Q4HR PRN PRN Reason: Pain 5 to 7 Last Admin: 11/19/17 10:19 Dose: 5 mg Pantoprazole Sodium (Protonix) 40 mg PO QDAC [facility] Last Admin: 11/19/17 07:02 Dose: 40 mg Polyethylene Glycol (Miralax) 17 gm PO DAILY [facility] Last Admin: 11/19/17 08:58 Dose: Not Given Saccharomyces Boulardii (Florastor) 250 mg PO BIDWM [facility] Last Admin: 11/19/17 08:58 Dose: 250 mg Senna (Senokot) 8.6 - 17.2 mg PO DAILY [facility] Last Admin: 11/19/17 08:59 Dose: Not Given Sodium Chloride (Normal Saline Flush 0.9%) 10 ml IVP PRN PRN PRN Reason: NEEDED PER PROVIDER ORDERS Last Admin: 11/18/17 20:10 Dose: 10 ml Sodium Chloride (Normal Saline Flush 0.9%) 10 ml IVP 0100,0900,1700 [facility] Last Admin: 11/19/17 08:59 Dose: 10 ml Spironolactone (Aldactone) 50 mg PO DAILY [facility] Last Admin: 11/19/17 08:58 Dose: 50 mg Torsemide (Torsemide) 20 mg PO DAILY [facility] Last Admin: 11/19/17 08:58 Dose: 20 mg Warfarin [Coumadin] 5 mg PO DAILY 10/04/17 Amiodarone HCl 200 mg PO DAILY 11/05/17 Multivitamin [Theragran] 1 tab PO DAILY 11/05/17 - Allergies Allergies/Adverse Reactions: Allergies Allergy/AdvReac Type Severity Reaction Status Date / Time No Known Drug Allergies Allergy Verified 11/05/17 02:16 Review of Systems - Constitutional Constitutional: reports: Fatigue, Chills, Poor appetite, Weight loss - Eyes Eyes: reports: Vision loss - Ears, Nose & Throat Ears, Nose & Throat: reports: Hearing loss (mild), Postnasal drainage, Other (poor dentition) - Cardiovascular Cardiovascular: reports: Edema, Exertional dyspnea, Decr. exercise tolerance, Orthopnea. denies: Chest pain - Respiratory Respiratory: reports: Cough, Orthopnea, SOB at rest, SOB with exertion, Other (hypoxic) - Gastrointestinal Gastrointestinal: reports: Abdominal distention, Nausea, Reflux/heartburn, Bloating, Poor appetite, Early satiety, Other (hiccups) - Genitourinary Genitourinary: reports: Frequency, Urgency - Musculoskeletal Musculoskeletal: reports: Muscle pain, Muscle aches, Stiffness, Limited range of motion, Muscle weakness, Assistive devices (has 4WW; not always compliant) - Integumentary Integumentary: reports: Dryness, Other (wounds on feet) - Neurological Neurological: reports: General weakness, Dizziness, Memory problems, Abnormal gait - Psychiatric Psychiatric: reports: Depression, Anxiety. denies: Suicidal - Endocrine Endocrine: reports: Intolerance to cold - Hematologic/Lymphatic Hematologic/Lymphatic: reports: Bruising, Bleeding tendencies - All Other Systems All Other Systems: reports: Reviewed and negative Physical Exam - Vital Signs Vital Signs: Vital Signs x48h Temp Pulse Resp BP BP Pulse Ox 11/19/17 16:24 36.8 C 107 H 18 70/50 L 89 L 11/19/17 13:00 36.3 C L 63 19 76/59 L 89 L - Physical Exam General Appearance: positive: Mild distress, Anxious ENT: negative: Oral lesions Neck: positive: No JVD, Trachea midline Cardiovascular: positive: Tachycardia Respiratory: positive: Diminished throughout Abdomen: positive: Soft, Distended Skin: positive: Wound (with dressings on feet), Other (feet bright red with dependence; toes on left foot dusky;) Extremities: positive: Pedal edema (bilat 2-3+ up to knees; improved from baseline) Neurologic/Psychiatric: positive: Disoriented to time, Weakness, Depressed m ood/affect, Flat affect Palliative Care - POLST Patient has POLST: Yes POLST Status: DNR, Selective Treatment (Discussed transitioning goals to comfort focused; patient in agreement for hospice support) Pain: Pain worsening, Location (LE; overall general aches/pains from living the "hard life"; started on gabapentin for sharp shooting LE pain) Tiredness/Fatigue: Severe (7-10) Drowsiness/Sedation: Moderate (4-6) Nausea: Mild (1-3) Depression: Moderate (4-6) Anxiety: Severe (7-10) Dyspnea: Severe (7-10) Anorexia: Moderate (4-6) Sleep: Variable sleep pattern Constipation: No Feelings of wellbeing/Perceived Quality of Life: Poor, Worsening Performance Status: Patient spending most of his time in bed and/or recliner. Able to walk short distance to the bathroom, reports severe dyspnea with this and difficulty with lower extremity weakness and activity intolerance. Would put him at a PPS of 50% - Palliative Care Discussion: Patient in our previous meetings, had expressed his goals were to have a safe place, able to keep his feet up, and watch TV. He did not want anything fancy. One of the barriers to moving on to hospice, was he was holding on to the hope of cardioversion was going to provide him extended quantity of life. Caroline ARREDONDO, did make contact with the bottle tester, at this point in time with his continued deterioration and long-term atrial fib, it would not be recommended to proceed and was in agreement for hospice care and support. 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 Ebenezer Palomo [phone] first and Rosemary Pierre [phone] second. The story he relays his they did find his uncle, who has since last month. But there are some resources/trust available to be able to access to pay for placement. This is all via patient, there was some family drama at the time of his parents . Given his substance abuse, he had to leave the setting. Patient still somewhat unclear on details, is somewhat curious about how and where estate has gone, does express regret for not having pursued this earlier. This does sound like a process over several years. I have agreed to be his medical DURABLE POWER OF ACADEMIC SUPPORT ASSISTANT, he feels quite competent in their ability to speak or act on his behalf. Will obtain document both for hospice and medical record. Patient does present with understanding he is not going to get better, that he has was told he has "6 months to live". He though under the best circumstances here has continued to deteriorate, presents with hypotension, fluctuating cognitive status, severe dyspnea with any activity, and oxygen dependence which is new. He has expressed goals to want to just focus on comfort, no further hospitalizations, and find some place to "end of story". Patient cannot i dentify anything else as far as end-of-life needs, contacts, or follow-up feels urgently needs to address. He is getting bored here at the hospital, is hoping to find a place soon, understands as he left now #1 he probably cannot leave on his own steam and #2 he would probably on the streets within a couple days. Results - Lab Results Lab results reviewed: Yes Fish Bones: 11/19/17 04:40 11/19/17 04:40 Lab and Imaging Results: Lab Results x24hrs 11/19/17 11/19/17 11/19/17 Range/Units 07:27 04:40 04:40 WBC (4.8-10.8) x10^3/uL RBC (4.70-6.10) 10^6/uL Hgb (14.0-18.0) g/dL Hct (42.0-52.0) % MCV (80.0-94.0) fL MCH (27.0-31.0) pg MCHC (32.0-36.0) g/dL RDW (12.0-15.0) % Plt Count (130-450) 10^3/uL MPV (7.4-11.4) fL Neut # (Auto) (1.5-6.6) 10^3/uL Lymph # (Auto) (1.5-3.5) 10^3/uL Garfield # (Auto) (0.0-1.0) 10^3/uL Eos # (Auto) (0.0-0.7) 10^3/uL Baso # (Auto) (0.0-0.1) 10^3/uL Absolute Nucleated RBC x10^3/uL Nucleated RBC % /100WBC PT 14.4 H (9.9-12.6) secs INR 1.3 H (0.8-1.2) Sodium 127 L (135-145) mmol/L Potassium 3.1 L (3.5-5.0) mmol/L Chloride 83 L (101-111) mmol/L Carbon Dioxide 31 (21-32) mmol/L Anion Gap 13.0 (6-13) BUN 45 H (6-20) mg/dL Creatinine 1.1 (0.6-1.2) mg/dL Estimated GFR (MDRD) 69 L (>89) Glucose 89 (70-100) mg/dL POC Whole Bld Glucose 70 (70 - 100) mg/dL Calcium 8.3 L (8.5-10.3) mg/dL Total Bilirubin 2.6 H (0.2-1.0) mg/dL AST 43 H (10-42) IU/L ALT 62 H (10-60) IU/L Alkaline Phosphatase 115 (42-121) IU/L B-Natriuretic Peptide (5-100) pg/mL Total Protein 6.3 L (6.7-8.2) g/dL Albumin 3.5 (3.2-5.5) g/dL Globulin 2.8 (2.1-4.2) g/dL Albumin/Globulin Ratio 1.3 (1.0-2.2) 11/19/17 11/19/17 Range/Units 04:40 04:40 WBC 10.4 (4.8-10.8) x10^3/uL RBC 4.94 (4.70-6.10) 10^6/uL Hgb 16.7 (14.0-18.0) g/dL Hct 50.0 (42.0-52.0) % MCV 101.2 H (80.0-94.0) fL MCH 33.8 H (27.0-31.0) pg MCHC 33.4 (32.0-36.0) g/dL RDW 14.9 (12.0-15.0) % Plt Count 132 (130-450) 10^3/uL MPV 9.7 (7.4-11.4) fL Neut # (Auto) 9.1 H (1.5-6.6) 10^3/uL Lymph # (Auto) 0.5 L (1.5-3.5) 10^3/uL Garfield # (Auto) 0.7 (0.0-1.0) 10^3/uL Eos # (Auto) 0.1 (0.0-0.7) 10^3/uL Baso # (Auto) 0.0 (0.0-0.1) 10^3/uL Absolute Nucleated RBC 0.00 x10^3/uL Nucleated RBC % 0.0 /100WBC PT (9.9-12.6) secs INR (0.8-1.2) Sodium (135-145) mmol/L Potassium (3.5-5.0) mmol/L Chloride (101-111) mmol/L Carbon Dioxide (21-32) mmol/L Anion Gap (6-13) BUN (6-20) mg/dL Creatinine (0.6-1.2) mg/dL Estimated GFR (MDRD) (>89) Glucose (70-100) mg/dL POC Whole Bld Glucose (70 - 100) mg/dL Calcium (8.5-10.3) mg/dL Total Bilirubin (0.2-1.0) mg/dL AST (10-42) IU/L ALT (10-60) IU/L Alkaline Phosphatase (42-121) IU/L B-Natriuretic Peptide 8843.00 H (5-100) pg/mL Total Protein (6.7-8.2) g/dL Albumin (3.2-5.5) g/dL Globulin (2.1-4.2) g/dL Albumin/Globulin Ratio (1.0-2.2) Impression and Recommendations - Palliative Care Impression: This is a 57-year-old gentleman with NYHA class IV heart failure, severe symptoms, with breathlessness at rest. Patient continues with hypotension, hypoxia, hyponatremia, fluctuating cognitive status, declining functional status, and comorbidities of atrial fib with RVR, hep C, COPD, BPH, depression, and chronic back pain. He remains quite fragile, has been waiting for placement, even with frequent medical oversight has not made significant improvements, and has continued to deteriorate. His underlying history of substance abuse disorder, depression, anxiety, and homelessness have added to the complexity of his overall picture. Palliative care providing support regarding transition to hospice and anticipatory guidance through this process. Recommendations/Counseling Done: 1. Acute on chronic heart failure NYHA class IV, ejection fraction less than 20. Patient does meet hospice criteria, given patient's ongoing decline, has come to the understanding given his current declining health and goals to focus on comfort, finding a safe place to live out his final days, hospice would be a good option to help meet these goals and to support his friends who are supporting him. 2.Depression. Patient expressing normal feelings of grief and loss, fears about dying, feeling very much alone in the context of minimal social support. Counseling provided regarding resources of the hospice team, including aids social worker and medical secretary as well as the goals to provide a layer of support. 3. Advanced care planning. Patient at this point has no final discharge disposition. Would suggest in the context of patient's complex history, friends who are serving as D POA, schedule family meeting to review goals of care, hospice support, anticipatory guidance, as well as set parameters for new setting.. Time Spent: 45 minutes with greater than 50% Done in counseling regarding goals of care, hospice and hospice support, normalizing fears and feelings regarding impending decline, as well as coordination of care with hospice and hospitalist
[2017-11-19] MEDS: NICOTINE 14 MG PATCH TOP SCH (18:02)
[2017-11-19] MEDS: MORPHINE SOL 10 MG/0.5 ML SYRINGE PO PRN (18:03)
[2017-11-20] MEDS: oxyCODONE 5 MG TABLET PO PRN ×2 (05:35→19:29)
[2017-11-20 06:02] LABS: ALBUMIN 3.4 g/dL (3.2-5.5); ALBUMIN/GLOBULIN RATIO 1.3 (1.0-2.2); BILIRUBIN,TOTAL 1.6 mg/dL (0.2-1.0); CALCIUM 8.5 mg/dL (8.5-10.3); CREATININE 1.2 mg/dL (0.6-1.2); TOTAL PROTEIN 6.1 g/dL (6.7-8.2)
[2017-11-20] MEDS: PANTOPRAZOLE 40 MG TABLET PO SCH (06:34)
[2017-11-20] MEDS: SACCHAROMYCES BOULARDII 250 MG CAPSULE PO SCH ×2 (08:59→16:55)
[2017-11-20] MEDS: POLYETHYLENE GLYCOL 3350 17 GM PACKET PO SCH (09:00)
[2017-11-20] MEDS: SENNA 8.6 MG TABLET PO SCH (09:00)
[2017-11-20] MEDS: ASPIRIN EC 81 MG TABLET PO SCH (09:00)
[2017-11-20] MEDS: MIDODRINE 2.5 MG TABLET PO SCH ×3 (09:00→16:55)
[2017-11-20] MEDS: SPIRONOLACTONE 25 MG TABLET PO SCH (09:00)
[2017-11-20] MEDS: TORSEMIDE 20 MG TABLET PO SCH (09:00)
[2017-11-20] MEDS: METOPROLOL SUCCINATE 25 MG TABLET PO SCH ×2 (09:00→18:54)
[2017-11-20] MEDS: levoFLOXacin 250 MG TABLET PO SCH (09:00)
[2017-11-20] MEDS: MULTIVITAMIN TABLET PO SCH (09:00)
[2017-11-20] MEDS: CITALOPRAM 10 MG TABLET PO SCH (09:00)
[2017-11-20] MEDS: MORPHINE SOL 10 MG/0.5 ML SYRINGE PO PRN ×2 (09:01→16:52)
[2017-11-20] MEDS: SODIUM CHLORIDE FLUSH 0.9% 10 ML SYRINGE IVP SCH (09:01)
[2017-11-20] MEDS: NICOTINE 14 MG PATCH TOP SCH (09:02)
--- NOTE | 2017-11-20 11:01 | PROVIDER PROGRESS NOTE ---
Subjective - Prog Note Date Prog Note Date: 11/20/17 Prog Note Time: 10:58 - Subjective Pt reports feeling: No change Subjective: João complains of "I'm sick and tired of being sick and tired". He states that wishes not be be poked with needles any longer. He denies any new symptoms such as chest pain or pressure, vomiting, rashes, or a new, productive cough. Current Medications - Current Medications Current Medications: Active Medications Aspirin (Ecotrin) 81 mg PO DAILY [facility] Last Admin: 11/20/17 09:00 Dose: 81 mg Citalopram Hydrobromide (Celexa) 40 mg PO DAILY [facility] Last Admin: 11/20/17 09:00 Dose: 40 mg Levalbuterol HCl (Xopenex) 1.25 mg INH RTQ4H PRN PRN Reason: Wheezing Levofloxacin (Levaquin) 750 mg PO DAILY [facility] Last Admin: 11/20/17 09:00 Dose: 750 mg Lorazepam (Ativan) 1 mg PO Q4H PRN PRN Reason: Anxiety Metoprolol Succinate (Toprol Xl) 25 mg PO 0800,1700 [facility] Last Admin: 11/20/17 09:00 Dose: 25 mg Midodrine () 2.5 mg PO TIDWM [facility] Last Admin: 11/20/17 09:00 Dose: 2.5 mg Morphine Sulfate (Roxanol) 10 mg PO Q2HR PRN PRN Reason: PAIN Last Admin: 11/20/17 09:01 Dose: 10 mg Multi-Ingredient Mouthwash/Gargle () 30 ml PO Q6H PRN PRN Reason: Heartburn Last Admin: 11/13/17 20:34 Dose: 30 ml Nicotine (Nicoderm) 1 patch TOP DAILY [facility] Last Admin: 11/20/17 09:02 Dose: 1 patch Nystatin (Mycostatin) 5 ml PO QID PRN PRN Reason: oral thrush Ondansetron HCl (Zofran Odt) 4 mg TL Q6HR PRN PRN Reason: Nausea / Vomiting Last Admin: 11/10/17 16:34 Dose: 4 mg Oxycodone HCl (Roxicodone) 5 mg PO Q4HR PRN PRN Reason: Pain 5 to 7 Last Admin: 11/20/17 05:35 Dose: 5 mg Pantoprazole Sodium (Protonix) 40 mg PO QDAC [facility] Last Admin: 11/20/17 06:34 Dose: 40 mg Polyethylene Glycol (Miralax) 17 gm PO DAILY [facility] Last Admin: 11/20/17 09:00 Dose: Not Given Saccharomyces Boulardii (Florastor) 250 mg PO BIDWM [facility] Last Admin: 11/20/17 08:59 Dose: 250 mg Senna (Senokot) 8.6 - 17.2 mg PO DAILY [facility] Last Admin: 11/20/17 09:00 Dose: 8.6 mg Spironolactone (Aldactone) 50 mg PO DAILY [facility] Last Admin: 11/20/17 09:00 Dose: 50 mg Torsemide (Torsemide) 20 mg PO DAILY [facility] Last Admin: 11/20/17 09:00 Dose: 20 mg Warfarin [Coumadin] 5 mg PO DAILY 10/04/17 Amiodarone HCl 200 mg PO DAILY 11/05/17 Multivitamin [Theragran] 1 tab PO DAILY 11/05/17 Objective - Vital Signs/Intake & Output Reviewed Vital Signs: Yes Vital Signs: Vital Signs x48h Temp Pulse Resp BP Pulse Ox 11/20/17 08:11 36.4 C L 94 18 86/64 L 91 L Intake & Output: Intake & Output 11/17/17 11/18/17 11/19/17 11/20/17 23:59 23:59 23:59 23:59 Intake Total 960 1080 1500 Output Total 2450 500 1300 Balance -1490 580 200 - Objective General Appearance: positive: Alert, Mild distress Eyes Bilateral: positive: No lid inflammation Eyes: OU Conjunctivae pale, OU Scleral icterus ENT: positive: Pharynx nml, Dry mucous membranes Neck: positive: Thyroid nml, No JVD, Trachea midline Respiratory: positive: Chest non-tender, Rhonchi Cardiovascular: positive: Regular rate & rhythm, Systolic murmur, Diastolic murmur, Decreased pulse(s) Peripheral Pulses: 1+ Radial (R), 1+ Radial (L) Abdomen: positive: Non-tender, Nml bowel sounds, Other (rounded, soft) Back: positive: Nml inspection Skin: positive: No rash, Warm, Dry, Other (overall bronze appearance to the skin.) Extremities: positive: Pedal edema, Joint swelling, Other (discoloration, cynaotic BLE, chronic dependent edema with BLE wounds.) Neurologic/Psychiatric: positive: Oriented x3, CN's nml (2-12), Motor nml, Weakness, Sensory loss, Depressed mood/affect Reflexes: Bicep (R): 3+, Bicep (L): 3+ - Lab Results Fish Bones: 11/19/17 04:40 11/20/17 05:37 Other Labs: Lab Results x24hrs 11/20/17 Range/Units 05:37 Sodium 130 L (135-145) mmol/L Potassium 3.6 (3.5-5.0) mmol/L Chloride 88 L (101-111) mmol/L Carbon Dioxide 31 (21-32) mmol/L Anion Gap 11.0 (6-13) BUN 43 H (6-20) mg/dL Creatinine 1.2 (0.6-1.2) mg/dL Estimated GFR (MDRD) 63 L (>89) Glucose 73 (70-100) mg/dL Calcium 8.5 (8.5-10.3) mg/dL Total Bilirubin 1.6 H (0.2-1.0) mg/dL AST 36 (10-42) IU/L ALT 49 (10-60) IU/L Alkaline Phosphatase 99 (42-121) IU/L Total Protein 6.1 L (6.7-8.2) g/dL Albumin 3.4 (3.2-5.5) g/dL Globulin 2.7 (2.1-4.2) g/dL Albumin/Globulin Ratio 1.3 (1.0-2.2) ABX Reporting Has patient been on IV antibiotics over the past 48 hours?: No Assessment/Plan - Problem List (1) Confusion Impression: João had been very sharp without evidence of memory impairment, but for the past several days has been notably more confused and is found without his oxygen at times. He states that he feels depressed today and admits to not being "as sharp" as he used to be. Plan: Continue to monitor and continue fall precautions. (2) Hypoxia Impression: The patient has dusky, bronze skin tone with cyanotic areas to all of his extremities, to his nose, around his mouth and his nail beds upon exam. He is encouraged to continue to wear his oxygen, but is found without it. He has continuous oxygen ordered for comfort and to reduce his confusion. Plan: Orders for continuous oxygen, respiratory care. (3) Acute on chronic systolic and diastolic heart failure, NYHA class 4 Impression: The patient's last BNP was 8843. His weight is recorded as 67kg today. He is no longer on a fluid restriction. Clinically, the patient appears stable, but has dependent BLE pitting edema, discolored, cyanotic BLEs, stable abdominal girth. The patient complains of ongoing fatigue and is now showing signs of increased confusion at times. He continues on torsemide, spironolactone, and metoprolol at 25mg. Plan: Continue medications, stop all labs, daily weights and his diet has been changed to a regular diet with NO fluid restriction for comfort. (4) ESTEVAN (acute kidney injury) Impression: The patient has had a steady decline in his kidney function and upon admission was found to have an elevated creatinine of 1.4, that soon worsened to over 2.0, and is much improved after switching from lasix to torsemide. Today the patient's creatinine is the best that it has been for quite some time at 1.2. Plan: Continue to monitor based on clinical appearance. Stop all labs, and invasive testing. (5) Atrial fibrillation with RVR Impression: The patient has been in this rhythm for at least the past [address] San, cardiology has signed off as the patient is seeking Hospice care. His metoprolol dose remains at 25mg, and the patient continues to have symptomatic hypotension so he continues on Midodrine. Plan: Continue rate control meds, and discontinue Warfarin as a cardioversion will not be done. (6) Chronic anticoagulation Impression: The patient was on Warfarin at 5mg PO daily, but this was discontinued after a discussion with Dr. San, Cardiology. There is no longer a need to keep him anticoagulated as it will not prolong his life and is likely adding to his discomfort. This diagnosis is resolved. Plan: Monitor for bleeding. (7) Hypotension Impression: The patient is now symptomatic with his hypotension and has a baseline systolic blood pressure in the 90's. He continues on Midodrine 2.5mg TID with meals to help with this. Plan: Continue to monitor vital signs. Qualifiers: Hypotension type: other hypotension type Qualified Code(s): I95.89 - Other hypotension (8) Do not resuscitate Impression: The patient was informed that he more likely has less than one year to live based on his multi-organ dysfunction and his extremely poor heart function. Palliative care is following and we are awaiting placement with Hospice care. Plan: Continue DNR code status, and have ongoing conversations, await Hospice consult.
[2017-11-21] MEDS: oxyCODONE 5 MG TABLET PO PRN ×4 (00:58→23:49)
[2017-11-21] MEDS: MORPHINE SOL 10 MG/0.5 ML SYRINGE PO PRN ×6 (02:00→20:06)
[2017-11-21] MEDS: PANTOPRAZOLE 40 MG TABLET PO SCH (06:43)
[2017-11-21] MEDS: NICOTINE 14 MG PATCH TOP SCH (09:04)
[2017-11-21] MEDS: SACCHAROMYCES BOULARDII 250 MG CAPSULE PO SCH ×2 (09:05→17:43)
[2017-11-21] MEDS: METOPROLOL SUCCINATE 25 MG TABLET PO SCH ×2 (09:05→17:49)
[2017-11-21] MEDS: ASPIRIN EC 81 MG TABLET PO SCH (09:05)
[2017-11-21] MEDS: SENNA 8.6 MG TABLET PO SCH (09:05)
[2017-11-21] MEDS: MIDODRINE 2.5 MG TABLET PO SCH ×3 (09:05→17:43)
[2017-11-21] MEDS: POLYETHYLENE GLYCOL 3350 17 GM PACKET PO SCH (09:06)
[2017-11-21] MEDS: CITALOPRAM 10 MG TABLET PO SCH (09:06)
[2017-11-21] MEDS: levoFLOXacin 250 MG TABLET PO SCH (09:06)
[2017-11-21] MEDS: TORSEMIDE 20 MG TABLET PO SCH (09:06)
[2017-11-21] MEDS: SPIRONOLACTONE 25 MG TABLET PO SCH (09:06)
--- NOTE | 2017-11-21 13:28 | PROVIDER PROGRESS NOTE ---
Subjective - Prog Note Date Prog Note Date: 11/21/17 Prog Note Time: 13:26 - Subjective Pt reports feeling: No change Subjective: João states that he has found happiness in all of his visitors today. He states that he is encouraged that he may have a place to stay in the near future. He states that he loves his food and his appetite is much improved. He denies any new symptoms such as chest pain, increased shortness of breath, rashes, or a new cough. He points out that his feet have started to "leak" and there is liquid u nder his feet on exam. Current Medications - Current Medications Current Medications: Active Medications Aspirin (Ecotrin) 81 mg PO DAILY [facility] Last Admin: 11/21/17 09:05 Dose: 81 mg Citalopram Hydrobromide (Celexa) 40 mg PO DAILY [facility] Last Admin: 11/21/17 09:06 Dose: 40 mg Levalbuterol HCl (Xopenex) 1.25 mg INH RTQ4H PRN PRN Reason: Wheezing Levofloxacin (Levaquin) 750 mg PO DAILY [facility] Last Admin: 11/21/17 09:06 Dose: 750 mg Lorazepam (Ativan) 1 mg PO Q4H PRN PRN Reason: Anxiety Metoprolol Succinate (Toprol Xl) 25 mg PO 0800,1700 [facility] Last Admin: 11/21/17 09:05 Dose: 25 mg Midodrine () 2.5 mg PO TIDWM [facility] Last Admin: 11/21/17 12:05 Dose: 2.5 mg Morphine Sulfate (Roxanol) 10 mg PO Q2HR PRN PRN Reason: PAIN Last Admin: 11/21/17 13:18 Dose: 10 mg Multi-Ingredient Mouthwash/Gargle () 30 ml PO Q6H PRN PRN Reason: Heartburn Last Admin: 11/13/17 20:34 Dose: 30 ml Nicotine (Nicoderm) 1 patch TOP DAILY [facility] Last Admin: 11/21/17 09:04 Dose: 1 patch Nystatin (Mycostatin) 5 ml PO QID PRN PRN Reason: oral thrush Ondansetron HCl (Zofran Odt) 4 mg TL Q6HR PRN PRN Reason: Nausea / Vomiting Last Admin: 11/10/17 16:34 Dose: 4 mg Oxycodone HCl (Roxicodone) 5 mg PO Q4HR PRN PRN Reason: Pain 5 to 7 Last Admin: 11/21/17 06:43 Dose: 5 mg Pantoprazole Sodium (Protonix) 40 mg PO QDAC [facility] Last Admin: 11/21/17 06:43 Dose: 40 mg Polyethylene Glycol (Miralax) 17 gm PO DAILY [facility] Last Admin: 11/21/17 09:06 Dose: Not Given Saccharomyces Boulardii (Florastor) 250 mg PO BIDWM [facility] Last Admin: 11/21/17 09:05 Dose: 250 mg Senna (Senokot) 8.6 - 17.2 mg PO DAILY [facility] Last Admin: 11/21/17 09:05 Dose: 8.6 mg Spironolactone (Aldactone) 50 mg PO DAILY [facility] Last Admin: 11/21/17 09:06 Dose: 50 mg Torsemide (Torsemide) 20 mg PO DAILY [facility] Last Admin: 11/21/17 09:06 Dose: 20 mg Warfarin [Coumadin] 5 mg PO DAILY 10/04/17 Amiodarone HCl 200 mg PO DAILY 11/05/17 Multivitamin [Theragran] 1 tab PO DAILY 11/05/17 Objective - Vital Signs/Intake & Output Reviewed Vital Signs: Yes Intake & Output: Intake & Output 11/18/17 11/19/17 11/20/17 11/21/17 23:59 23:59 23:59 23:59 Intake Total 1080 1500 450 550 Output Total 500 1300 Balance 580 200 450 550 - Objective General Appearance: positive: Alert, Mild distress, Anxious Eyes Bilateral: positive: PERRL Eyes: OU Conjunctivae pale, OU Scleral icterus ENT: positive: No signs of dehydration, Pharyngeal erythema Neck: positive: Thyroid nml, No JVD, Trachea midline Respiratory: positive: Chest non-tender, No respiratory distress, Wheezes, Rhon chi Cardiovascular: positive: Irregularly irregular, Systolic murmur, Diastolic murmur, Decreased pulse(s) Peripheral Pulses: 1+ Radial (R), 1+ Radial (L) Abdomen: positive: Nml bowel sounds, Tenderness, Guarding, Other (rounded, soft) Back: positive: Nml inspection Skin: positive: No rash, Warm, Dry, Cyanosis, Pallor Extremities: positive: Pedal edema, Joint swelling, Other (cyanotic BLEs) Neurologic/Psychiatric: positive: Oriented x3, CN's nml (2-12), Motor nml, Weakness, Sensory loss, Depressed mood/affect Reflexes: Bicep (R): 2+, Bicep (L): 2+ - Lab Results Fish Bones: 11/19/17 04:40 11/20/17 05:37 ABX Reporting Has patient been on IV antibiotics over the past 48 hours?: No Assessment/Plan - Problem List (1) Confusion Impression: João shows some improvement from his previous confusion and describes his condition accurately. He states that he has ongoing depressed and admits to not being "as sharp" as he used to be. His confusion and sluggish speech becomes worse without oxygen. Plan: Continue to monitor and continue fall precautions. (2) Hypoxia Impression: The patient has dusky, bronze skin tone with cyanotic areas to all of his extremities, to his nose, around his mouth and his nail beds upon exam. He is encouraged to continue to wear his oxygen, but is found without it. He has continuous oxygen ordered for comfort and to reduce his confusion. Plan: Orders for continuous oxygen, respiratory care. (3) Acute on chronic systolic and diastolic heart failure, NYHA class 4 Impression: The patient's last BNP was 8843, but all labs have been discontinued. He is no longer on a fluid restriction. Clinically, the patient appears stable, but has dependent BLE pitting edema with weeping noted, discolored, cyanotic BLEs, st able abdominal girth. The patient complains of ongoing fatigue and is now showing signs of increased confusion at times depending on his oxygen use. He continues on torsemide, spironolactone, and metoprolol at 25mg. Plan: Continue medications, stop all labs, daily weights and his diet has been changed to a regular diet with NO fluid restriction for comfort. (4) ESTEVAN (acute kidney injury) Impression: The patient has had a steady decline in his kidney function and is much improved after switching from lasix to torsemide. Labs are no longer ordered, but yesterday, the patient's creatinine was stable at 1.2. Plan: Continue to monitor based on clinical appearance. Stop all labs, and invasive testing. (5) Atrial fibrillation with RVR Impression: Dr. San, cardiology has signed off as the patient is seeking Hospice care. His metoprolol dose remains at 25mg, and Midodrine for symptomatic hypot ension. Plan: Continue rate control meds and take vital signs for symptoms or for change of status. (6) Chronic anticoagulation Impression: The patient was on Warfarin, but this was discontinued after a discussion with Dr. San, Cardiology. There is no longer a need to keep him anticoagulated as it will not prolong his life and is likely adding to his discomfort. This diagnosis is resolved. Plan: Monitor for bleeding. (7) Hypotension Impression: The patient is now symptomatic at times with his hypotension and has a baseline systolic blood pressure in the 90's. He continues on Midodrine 2.5mg TID with meals to help with this. Plan: Continue to monitor vital signs for a change in status or as needed. Qualifiers: Hypotension type: other hypotension type Qualified Code(s): I95.89 - Other hypotension (8) Do not resuscitate Impression: The patient was informed that he more likely has less than one year to live based on his multi-organ dysfunction and his extremely poor heart function. Pal liative care is following and we are awaiting placement with Hospice care. Plan: Continue DNR code status, and have ongoing conversations, await Hospice consult.
[2017-11-22] MEDS: MORPHINE SOL 10 MG/0.5 ML SYRINGE PO PRN ×5 (02:32→16:02)
[2017-11-22] MEDS: PANTOPRAZOLE 40 MG TABLET PO SCH (06:06)
[2017-11-22] MEDS: SACCHAROMYCES BOULARDII 250 MG CAPSULE PO SCH ×2 (09:03→19:28)
[2017-11-22] MEDS: MIDODRINE 2.5 MG TABLET PO SCH ×3 (09:03→19:28)
[2017-11-22] MEDS: SPIRONOLACTONE 25 MG TABLET PO SCH (09:03)
[2017-11-22] MEDS: TORSEMIDE 20 MG TABLET PO SCH (09:03)
[2017-11-22] MEDS: oxyCODONE 5 MG TABLET PO PRN ×3 (09:03→20:45)
[2017-11-22] MEDS: SENNA 8.6 MG TABLET PO SCH (09:03)
[2017-11-22] MEDS: ASPIRIN EC 81 MG TABLET PO SCH (09:03)
[2017-11-22] MEDS: CITALOPRAM 10 MG TABLET PO SCH (09:03)
[2017-11-22] MEDS: levoFLOXacin 250 MG TABLET PO SCH (09:03)
[2017-11-22] MEDS: METOPROLOL SUCCINATE 25 MG TABLET PO SCH ×2 (09:03→19:28)
[2017-11-22] MEDS: NICOTINE 14 MG PATCH TOP SCH (09:10)
[2017-11-22] MEDS: POLYETHYLENE GLYCOL 3350 17 GM PACKET PO SCH (09:11)
--- NOTE | 2017-11-22 14:07 | PROVIDER PROGRESS NOTE ---
Subjective - Prog Note Date Prog Note Date: 11/22/17 Prog Note Time: 13:58 - Subjective Pt reports feeling: No change Subjective: João was able to take a shower today and complains of ongoing BLE pain. He denies increased SOB, chest pain, a new productive cough or a rash. He continues to enjoy his food since being changed to a regular diet without a fluid restriction. Placement is still the barrier to discharge. Current Medications - Current Medications Current Medications: Active Medications Aspirin (Ecotrin) 81 mg PO DAILY [facility] Last Admin: 11/22/17 09:03 Dose: 81 mg Citalopram Hydrobromide (Celexa) 40 mg PO DAILY [facility] Last Admin: 11/22/17 09:03 Dose: 40 mg Levalbuterol HCl (Xopenex) 1.25 mg INH RTQ4H PRN PRN Reason: Wheezing Levofloxacin (Levaquin) 750 mg PO DAILY [facility] Last Admin: 11/22/17 09:03 Dose: 750 mg Lorazepam (Ativan) 1 mg PO Q4H PRN PRN Reason: Anxiety Metoprolol Succinate (Toprol Xl) 25 mg PO 0800,1700 [facility] Last Admin: 11/22/17 09:03 Dose: 25 mg Midodrine () 2.5 mg PO TIDWM [facility] Last Admin: 11/22/17 13:40 Dose: 2.5 mg Morphine Sulfate (Roxanol) 10 mg PO Q2HR PRN PRN Reason: PAIN Last Admin: 11/22/17 13:40 Dose: 10 mg Multi-Ingredient Mouthwash/Gargle () 30 ml PO Q6H PRN PRN Reason: Heartburn Last Admin: 11/13/17 20:34 Dose: 30 ml Nicotine (Nicoderm) 1 patch TOP DAILY [facility] Last Admin: 11/22/17 09:10 Dose: 1 patch Nystatin (Mycostatin) 5 ml PO QID PRN PRN Reason: oral thrush Ondansetron HCl (Zofran Odt) 4 mg TL Q6HR PRN PRN Reason: Nausea / Vomiting Last Admin: 11/10/17 16:34 Dose: 4 mg Oxycodone HCl (Roxicodone) 5 mg PO Q4HR PRN PRN Reason: Pain 5 to 7 Last Admin: 11/22/17 09:03 Dose: 5 mg Pantoprazole Sodium (Protonix) 40 mg PO QDAC [facility] Last Admin: 11/22/17 06:06 Dose: 40 mg Polyethylene Glycol (Miralax) 17 gm PO DAILY [facility] Last Admin: 11/22/17 09:11 Dose: Not Given Saccharomyces Boulardii (Florastor) 250 mg PO BIDWM [facility] Last Admin: 11/22/17 09:03 Dose: 250 mg Senna (Senokot) 8.6 - 17.2 mg PO DAILY [facility] Last Admin: 11/22/17 09:03 Dose: 8.6 mg Spironolactone (Aldactone) 50 mg PO DAILY [facility] Last Admin: 11/22/17 09:03 Dose: 50 mg Torsemide (Torsemide) 20 mg PO DAILY [facility] Last Admin: 11/22/17 09:03 Dose: 20 mg Warfarin [Coumadin] 5 mg PO DAILY 10/04/17 Amiodarone HCl 200 mg PO DAILY 11/05/17 Multivitamin [Theragran] 1 tab PO DAILY 11/05/17 Objective - Vital Signs/Intake & Output Reviewed Vital Signs: Yes Vital Signs: Vital Signs x48h Pulse Resp 11/22/17 13:15 56 L 16 Intake & Output: Intake & Output 11/19/17 11/20/17 11/21/17 11/22/17 23:59 23:59 23:59 23:59 Intake Total 3040 354 6926 450 Output Total 1300 Balance 038 819 9713 450 - Objective General Appearance: positive: Alert, Moderate distress Eyes: OU Conjunctivae pale, OU Scleral icterus ENT: positive: Pharynx nml, Dry mucous membranes Neck: positive: Thyroid nml, No JVD, Trachea midline Respiratory: positive: Chest non-tender, No respiratory distress, Rhonchi Cardiovascular: positive: Irregularly irregular, Systolic murmur Peripheral Pulses: 1+ Radial (R), 1+ Radial (L) Abdomen: positive: Non-tender, Nml bowel sounds, Other (rounded, soft) Back: positive: Nml inspection Skin: positive: No rash, Warm, Dry Extremities: positive: Pedal edema, Joint swelling, Other (weeping edema with BLE blisters, cyanotic) Neurologic/Psychiatric: positive: Oriented x3, Motor nml, Weakness, Sensory loss, Slurred/abnml speech, Depressed mood/affect, Other (less confusion) Reflexes: Bicep (R): 2+, Bicep (L): 2+ - Lab Results Fish Bones: 11/19/17 04:40 11/20/17 05:37 ABX Reporting Has patient been on IV antibiotics over the past 48 hours?: No Assessment/Plan - Problem List (1) Confusion Impression: João shows some improvement from his previous confusion and describes his condition accurately. He states that he has ongoing depressed and admits to not being "as sharp" as he used to be. His confusion and sluggish speech becomes worse without oxygen. He was in the shower today without oxygen, became weak, disorientated, and had a fall without injury. Plan: Continue to monitor and continue fall precautions. (2) Fall Impression: The patient had an accidental fall today while in the shower. He was not wearing his oxygen as per his choice. He denies any injuries, and it appears as though he did not hit his head. He has been off the blood thinner for at least the past 4 days. His BLEs appear to be in good alignment. Plan: Continue fall precautions. Qualifiers: Encounter type: subsequent encounter Qualified Code(s): W19.XXXD - Unspecified fall, subsequent encounter (3) Hypoxia Impression: The patient has dusky, bronze skin tone with cyanotic areas to all of his extremities, to his nose, around his mouth and his nail beds upon exam. He is encouraged to continue to wear his oxygen, but is found without it. He has continuous oxygen ordered for comfort and to reduce his confusion. Plan: Orders for continuous oxygen, respiratory care. (4) Chronic atrial fibrillation Impression: Dr. San, cardiology has signed off as the patient is seeking Hospice care. His metoprolol dose remains at 25mg, and Midodrine for symptomatic hypotension. Plan: Continue rate control meds and take vital signs for symptoms or for change of status. (5) Acute on chronic systolic and diastolic heart failure, NYHA class 4 Impression: The patient's last BNP was 8843, but all labs have been discontinued. He is no longer on a fluid restriction. Clinically, the patient appears stable, but has dependent BLE pitting edema with weeping noted, discolored, cyanotic BLEs, stable abdominal girth. The patient complains of ongoing fatigue and is now showing signs of increased confusion at times depending on his oxygen use. He continues on torsemide, spironolactone, and metoprolol at 25mg. Plan: Continue medications, stop all labs, daily weights and his diet has been changed to a regular diet with NO fluid restriction for comfort. (6) ESTEVAN (acute kidney injury) Impression: The patient has had a steady decline in his kidney function and is much improved after switching from lasix to torsemide. Labs are no longer ordered, but the patient's creatinine was last stable at 1.2. Plan: Continue to monitor based on clinical appearance. Stop all labs, and invasive testing. (7) Hypotension Impression: The patient is now symptomatic at times with his hypotension and has a baseline systolic blood pressure in the 90's. He continues on Midodrine 2.5mg TID with meals to help with this. Plan: Continue to monitor vital signs for a change in status or as needed. Qualifiers: Hypotension type: other hypotension type Qualified Code(s): I95.89 - Other hypotension (8) Do not resuscitate Impression: The patient was informed that he more likely has less than one year to live based on his multi-organ dysfunction and his extremely poor heart function. Palliative care is following and we are awaiting placement with Hospice care. The cardioversion has been taken out of this equation. Plan: Continue DNR code status, and have ongoing conversations, await Hospice consult.
[2017-11-23] MEDS: MORPHINE SOL 10 MG/0.5 ML SYRINGE PO PRN ×6 (00:43→20:14)
[2017-11-23] MEDS: PANTOPRAZOLE 40 MG TABLET PO SCH (06:38)
[2017-11-23] MEDS: SACCHAROMYCES BOULARDII 250 MG CAPSULE PO SCH ×2 (07:46→16:20)
[2017-11-23] MEDS: METOPROLOL SUCCINATE 25 MG TABLET PO SCH ×2 (07:46→16:20)
[2017-11-23] MEDS: MIDODRINE 2.5 MG TABLET PO SCH ×3 (07:47→16:20)
[2017-11-23] MEDS: levoFLOXacin 250 MG TABLET PO SCH (09:44)
[2017-11-23] MEDS: NICOTINE 14 MG PATCH TOP SCH (09:44)
[2017-11-23] MEDS: CITALOPRAM 10 MG TABLET PO SCH (09:44)
[2017-11-23] MEDS: SPIRONOLACTONE 25 MG TABLET PO SCH (09:44)
[2017-11-23] MEDS: TORSEMIDE 20 MG TABLET PO SCH (09:44)
[2017-11-23] MEDS: POLYETHYLENE GLYCOL 3350 17 GM PACKET PO SCH ×2 (09:46→09:54)
[2017-11-23] MEDS: ASPIRIN EC 81 MG TABLET PO SCH (09:50)
[2017-11-23] MEDS: SENNA 8.6 MG TABLET PO SCH (09:55)
--- NOTE | 2017-11-23 11:14 | PROVIDER PROGRESS NOTE ---
Subjective - Prog Note Date Prog Note Date: 11/23/17 Prog Note Time: 11:12 - Subjective Pt reports feeling: Worse Subjective: João complains of new left wrist pain that began hurting after his fall in the bathroom yesterday. He continues to have BLE foot pain, swelling, nausea, weakness, ongoing shortness of breath, and dizziness at times. He denies chest pain. His discharge is delayed due to lack of placement. Current Medications - Current Medications Current Medications: Active Medications Aspirin (Ecotrin) 81 mg PO DAILY [facility] Last Admin: 11/23/17 09:50 Dose: 81 mg Citalopram Hydrobromide (Celexa) 40 mg PO DAILY [facility] Last Admin: 11/23/17 09:44 Dose: 40 mg Levalbuterol HCl (Xopenex) 1.25 mg INH RTQ4H PRN PRN Reason: Wheezing Levofloxacin (Levaquin) 750 mg PO DAILY [facility] Last Admin: 11/23/17 09:44 Dose: 750 mg Lorazepam (Ativan) 1 mg PO Q4H PRN PRN Reason: Anxiety Metoprolol Succinate (Toprol Xl) 25 mg PO 0800,1700 [facility] Last Admin: 11/23/17 07:46 Dose: 25 mg Midodrine () 2.5 mg PO TIDWM [facility] Last Admin: 11/23/17 07:47 Dose: 2.5 mg Morphine Sulfate (Roxanol) 10 mg PO Q2HR PRN PRN Reason: PAIN Last Admin: 11/23/17 10:24 Dose: 10 mg Multi-Ingredient Mouthwash/Gargle () 30 ml PO Q6H PRN PRN Reason: Heartburn Last Admin: 11/13/17 20:34 Dose: 30 ml Nicotine (Nicoderm) 1 patch TOP DAILY [facility] Last Admin: 11/23/17 09:44 Dose: 1 patch Nystatin (Mycostatin) 5 ml PO QID PRN PRN Reason: oral thrush Ondansetron HCl (Zofran Odt) 4 mg TL Q6HR PRN PRN Reason: Nausea / Vomiting Last Admin: 11/10/17 16:34 Dose: 4 mg Oxycodone HCl (Roxicodone) 5 mg PO Q4HR PRN PRN Reason: Pain 5 to 7 Last Admin: 11/22/17 20:45 Dose: 5 mg Pantoprazole Sodium (Protonix) 40 mg PO QDAC [facility] Last Admin: 11/23/17 06:38 Dose: 40 mg Polyethylene Glycol (Miralax) 17 gm PO DAILY [facility] Last Admin: 11/23/17 09:54 Dose: Not Given Saccharomyces Boulardii (Florastor) 250 mg PO BIDWM [facility] Last Admin: 11/23/17 07:46 Dose: 250 mg Senna (Senokot) 8.6 - 17.2 mg PO DAILY [facility] Last Admin: 11/23/17 09:55 Dose: Not Given Spironolactone (Aldactone) 50 mg PO DAILY [facility] Last Admin: 11/23/17 09:44 Dose: 50 mg Torsemide (Torsemide) 20 mg PO DAILY [facility] Last Admin: 11/23/17 09:44 Dose: 20 mg Warfarin [Coumadin] 5 mg PO DAILY 10/04/17 Amiodarone HCl 200 mg PO DAILY 11/05/17 Multivitamin [Theragran] 1 tab PO DAILY 11/05/17 Objective - Vital Signs/Intake & Output Reviewed Vital Signs: Yes Vital Signs: Vital Signs x48h Temp Pulse Pulse Resp BP Pulse Ox 11/23/17 08:10 79 18 11/23/17 07:51 36.7 C 85 19 99/70 93 Intake & Output: Intake & Output 11/20/17 11/21/17 11/22/17 11/23/17 23:59 23:59 23:59 23:59 Intake Total 450 1390 550 Output Total 300 Balance 450 1390 250 - Objective General Appearance: positive: Alert, Moderate distress, Anxious Eyes: OU Conjunctivae pale, OU Scleral icterus ENT: positive: Pharyngeal erythema, Dry mucous membranes Neck: positive: Thyroid nml, No JVD, Trachea midline Respiratory: positive: Chest non-tender, No respiratory distress, Rhonchi Cardiovascular: positive: Irregularly irregular, Systolic murmur, Diastolic mur mur, Decreased pulse(s) Peripheral Pulses: 1+ Radial (R), 1+ Radial (L) Abdomen: positive: Non-tender, Nml bowel sounds, Other (rounded, soft) Back: positive: Nml inspection Skin: positive: No rash, Warm, Dry, Cyanosis, Pallor, Other (bronze tone) Extremities: positive: Pedal edema, Joint swelling, Other (weeping, cynanotic BLEs, scattered brusing covering much of his body. New left wrist swelling, redness and tenderness-imaging confirms no fracture.) Neurologic/Psychiatric: positive: Disoriented to time, Weakness, Sensory loss, Slurred/abnml speech, Depressed mood/affect Reflexes: Bicep (R): 2+, Bicep (L): 2+ - Lab Results Fish Bones: 11/19/17 04:40 11/20/17 05:37 ABX Reporting Has patient been on IV antibiotics over the past 48 hours?: No Assessment/Plan - Problem List (1) Left wrist pain Impression: The patient noticed left wrist pain sometime overnight and on exam he has an inability to use it, swelling, and increased redness. Left wrist 3-view shows no fractures. Plan: AUDELIA wrap for comfort, give plenty of morphine in the meantime. Possible ortho consult if there is a fracture. (2) Confusion Impression: João shows some improvement from his previous confusion and describes his condition accurately. He states that he has ongoing depressed and admits to not being "as sharp" as he used to be. His confusion and sluggish speech becomes worse without oxygen. Yesterday he had a fall in the shower with injury to his left wrist, that is not fractured. Plan: Continue to monitor and continue fall precautions. (3) Fall Impression: The patient had an accidental fall yesterday while in the shower, and sustained a left wrist injury without fracture. He was not wearing his oxygen as per his choice. It appears as though he did not hit his head. He has been off the blood thinner for the past week. His BLEs appear to be in good alignment. Plan: Continue fall precautions. Qualifiers: Encounter type: subsequent encounter Qualified Code(s): W19.XXXD - Unspecified fall, subsequent encounter (4) Hypoxia Impression: The patient has dusky, bronze skin tone with cyanotic areas to all of his extremities, to his nose, around his mouth and his nail beds upon exam. He is encouraged to continue to wear his oxygen, but is found without it. He has continuous oxygen ordered for comfort and to reduce his confusion. Plan: Orders for continuous oxygen, respiratory care. (5) Chronic atrial fibrillation Impression: Dr. San, cardiology has signed off as the patient is seeking Hospice care. His metoprolol dose remains at 25mg, and Midodrine for symptomatic hypotension. Plan: Continue rate control meds and take vital signs ONLY for symptoms or for change of status. (6) Acute on chronic systolic and diastolic heart failure, NYHA class 4 Impression: The patient's last BNP was 8843, but all labs have been discontinued. He is no longer on a fluid restriction. Clinically, the patient appears stable, but has dependent BLE pitting edema with weeping noted, discolored, cyanotic BLEs, stable abdominal girth. He had a very impressive fluid filled blister on his left anterior foot, that has burst. The patient complains of ongoing fatigue and is now showing signs of increased confusion at times depending on his oxygen use. He continues on torsemide, spironolactone, and metoprolol at 25mg. Plan: Continue medications, stop all labs, daily weights and his diet has been changed to a regular diet with NO fluid restriction for comfort. (7) ESTEVAN (acute kidney injury) Impression: The patient has had a steady decline in his kidney function and is much improved after switching from lasix to torsemide. Labs are no longer ordered, but the patient's creatinine was last stable at 1.2. As per nursing, he continues to urinate. Plan: Continue to monitor based on clinical appearance. Stop all labs, and invasive testing. (8) Hypotension Impression: The patient is now symptomatic at times with his hypotension and has a baseline systolic blood pressure in the 90's. He continues on Midodrine 2.5mg TID with meals to help with this. Plan: Continue to monitor vital signs for a change in status or as needed. Qualifiers: Hypotension type: other hypotension type Qualified Code(s): I95.89 - Other hypotension (9) Do not resuscitate Impression: The patient was informed that he more likely has less than one year to live based on his multi-organ dysfunction and his extremely poor heart function. Palliative care is following and we are awaiting placement with Hospice care. The cardioversion has been taken out of this equation. Plan: Continue DNR code status, and have ongoing conversations, await Hospice consult.
--- NOTE | 2017-11-23 12:17 | XRAY Report ---
Reason: fall, left wrist pain Procedure Date: 11/23/2017 Accession Number: [id number] / [id number] Procedure: XR - Wrist 3 View LT CPT Code: FULL RESULT: EXAM: LEFT WRIST RADIOGRAPHY EXAM DATE: 11/23/2017 11:57 AM. CLINICAL HISTORY: Fall, left wrist pain. COMPARISON: None. TECHNIQUE: 3 views. FINDINGS: Bones: Scaphoid cyst. No fractures or bone lesions. Joints: Normal. No subluxations. Soft Tissues: Soft tissue swelling. IMPRESSION: Normal wrist radiography. [facility]
[2017-11-23] MEDS: oxyCODONE 5 MG TABLET PO PRN ×2 (16:20→20:18)
[2017-11-24] MEDS: oxyCODONE 5 MG TABLET PO PRN ×2 (00:16→21:06)
[2017-11-24] MEDS: MORPHINE SOL 10 MG/0.5 ML SYRINGE PO PRN ×5 (05:30→21:06)
[2017-11-24] MEDS: PANTOPRAZOLE 40 MG TABLET PO SCH (06:14)
[2017-11-24] MEDS: SENNA 8.6 MG TABLET PO SCH (08:57)
[2017-11-24] MEDS: MIDODRINE 2.5 MG TABLET PO SCH ×3 (08:57→17:03)
[2017-11-24] MEDS: SPIRONOLACTONE 25 MG TABLET PO SCH ×2 (08:59→15:30)
[2017-11-24] MEDS: METOPROLOL SUCCINATE 25 MG TABLET PO SCH ×2 (08:59→17:03)
[2017-11-24] MEDS: TORSEMIDE 20 MG TABLET PO SCH (08:59)
[2017-11-24] MEDS: SACCHAROMYCES BOULARDII 250 MG CAPSULE PO SCH ×2 (08:59→17:03)
[2017-11-24] MEDS: levoFLOXacin 250 MG TABLET PO SCH (08:59)
[2017-11-24] MEDS: CITALOPRAM 10 MG TABLET PO SCH (09:01)
--- NOTE | 2017-11-24 12:45 | PROVIDER PROGRESS NOTE ---
Subjective - Prog Note Date Prog Note Date: 11/24/17 - Subjective Pt reports feeling: Improved Subjective: pt state he feel fine, ate his breakfast comfortably. pt is alert and better oriented. Current Medications - Current Medications Current Medications: Active Medications Citalopram Hydrobromide (Celexa) 40 mg PO DAILY [facility] Last Admin: 11/24/17 09:01 Dose: 40 mg Levalbuterol HCl (Xopenex) 1.25 mg INH RTQ4H PRN PRN Reason: Wheezing Last Admin: 11/24/17 09:30 Dose: 1.25 mg Levofloxacin (Levaquin) 750 mg PO DAILY [facility] Last Admin: 11/24/17 08:59 Dose: 750 mg Lorazepam (Ativan) 1 mg PO Q4H PRN PRN Reason: Anxiety Metoprolol Succinate (Toprol Xl) 25 mg PO 0800,1700 [facility] Last Admin: 11/24/17 08:59 Dose: Not Given Midodrine () 2.5 mg PO TIDWM [facility] Last Admin: 11/24/17 08:57 Dose: 2.5 mg Morphine Sulfate (Roxanol) 10 mg PO Q2HR PRN PRN Reason: PAIN Last Admin: 11/24/17 10:46 Dose: 10 mg Multi-Ingredient Mouthwash/Gargle () 30 ml PO Q6H PRN PRN Reason: Heartburn Last Admin: 11/13/17 20:34 Dose: 30 ml Nystatin (Mycostatin) 5 ml PO QID PRN PRN Reason: oral thrush Ondansetron HCl (Zofran Odt) 4 mg TL Q6HR PRN PRN Reason: Nausea / Vomiting Last Admin: 11/10/17 16:34 Dose: 4 mg Oxycodone HCl (Roxicodone) 5 mg PO Q4HR PRN PRN Reason: Pain 5 to 7 Last Admin: 11/24/17 00:16 Dose: 5 mg Pantoprazole Sodium (Protonix) 40 mg PO QDAC [facility] Last Admin: 11/24/17 06:14 Dose: 40 mg Saccharomyces Boulardii (Florastor) 250 mg PO BIDWM [facility] Last Admin: 11/24/17 08:59 Dose: 250 mg Senna (Senokot) 8.6 - 17.2 mg PO DAILY [facility] Last Admin: 11/24/17 08:57 Dose: 8.6 mg Spironolactone (Aldactone) 50 mg PO DAILY [facility] Last Admin: 11/24/17 08:59 Dose: 50 mg Torsemide (Torsemide) 20 mg PO DAILY [facility] Last Admin: 11/24/17 08:59 Dose: 20 mg Warfarin [Coumadin] 5 mg PO DAILY 10/04/17 Amiodarone HCl 200 mg PO DAILY 11/05/17 Multivitamin [Theragran] 1 tab PO DAILY 11/05/17 Objective - Vital Signs/Intake & Output Reviewed Vital Signs: Yes Vital Signs: Vital Signs x48h Temp Pulse Pulse Resp BP Pulse Ox 11/24/17 09:30 56 L 16 11/24/17 09:28 36.8 C 78 18 82/58 L 96 Intake & Output: Intake & Output 11/21/17 11/22/17 11/23/17 11/24/17 23:59 23:59 23:59 23:59 Intake Total 1390 550 750 440 Output Total 300 100 300 Balance 1390 250 650 140 - Objective General Appearance: positive: No acute distress, Alert. negative: Lethargic Eyes Bilateral: positive: Normal inspection, PERRL, No lid inflammation, Conjunctivae nml ENT: positive: ENT inspection nml, Pharynx nml, No signs of dehydration. negative: Purulent nasal drainage, Pharyngeal erythema, Oral lesions Neck: positive: Nml inspection, Thyroid nml, No JVD, Trachea midline. negative: Thyromegaly, Lymphadenopathy (R), Lymphadenopathy (L), Stiff neck Respiratory: positive: Chest non-tender, No respiratory distress, Breath sounds nml. negative: Wheezes, Rales, Rhonchi Cardiovascular: positive: Irregularly irregular, JVD present, Systolic murmur. negative: Extrasystoles, Bradycardia, Diastolic murmur Peripheral Pulses: 2+ Radial (R), 2+ Radial (L) Abdomen: positive: Non-tender, No organomegaly, Nml bowel sounds, No distention. negative: Tenderness, Guarding, Rebound Back: positive: Nml inspection. negative: CVA tenderness (R), CVA tenderness (L) Skin: positive: Skin rash, Other (blaster located bilateral lower extremities) Extremities: negative: Calf tenderness, Joint swelling, Tahira's sign/cords Neurologic/Psychiatric: positive: Oriented x3, Sensation nml, Mood/affect nml, Weakness. negative: Sensory loss, Facial droop, Slurred/abnml speech, Depressed mood/affect - Lab Results Fish Bones: 11/19/17 04:40 11/20/17 05:37 ABX Reporting Has patient been on IV antibiotics over the past 48 hours?: Yes Assessment/Plan - Problem List (1) Confusion Impression: (1) Confusion Impression: 11/24 pt is alert and oriented today continue support and orient to pt continue fall precaution João shows some improvement from his previous confusion and describes his condition accurately. He states that he has ongoing depressed and admits to not being "as sharp" as he used to be. His confusion and sluggish speech becomes worse without oxygen. He was in the shower today without oxygen, became weak, disorientated, and had a fall without injury. Plan: Continue to monitor and continue fall precautions. (2) Fall Impression: 11/24 stable, continue fall precaution The patient had an accidental fall today while in the shower. He was not wearing his oxygen as per his choice. He denies any injuries, and it appears as though he did not hit his head. He has been off the blood thinner for at least the past 4 days. His BLEs appear to be in good alignment. Plan: Continue fall precautions. (3) Hypoxia Impression: 11/24 stable, 96% sats on 2 liter of O2 continue O2 supplement as needed The patient has dusky, bronze skin tone with cyanotic areas to all of his extremities, to his nose, around his mouth and his nail beds upon exam. He is encouraged to continue to wear his oxygen, but is found without it. He has continuous oxygen ordered for comfort and to reduce his confusion. Plan: Orders for continuous oxygen, respiratory care. (4) Chronic atrial fibrillation Impression: 11/24 HR 78 stable, continue monitor pt and current regime for pt Dr. San, cardiology has signed off as the patient is seeking Hospice care. His metoprolol dose remains at 25mg, and Midodrine for symptomatic hypotension. Plan: Continue rate control meds and take vital signs for symptoms or for change of status. (5) Acute on chronic systolic and diastolic heart failure, NYHA class 4 Impression: 11/24 continue support and monitor pt, pt was consulted with palliative care, and plan to be d/c to hospice care per pt request. The patient's last BNP was 8843, but all labs have been discontinued. He is no longer on a fluid restriction. Clinically, the patient appears stable, but has dependent BLE pitting edema with weeping noted, discolored, cyanotic BLEs, stable abdominal girth. The patient complains of ongoing fatigue and is now showing signs of increased confusion at times depending on his oxygen use. He continues on torsemide, spironolactone, and metoprolol at 25mg. Plan: Continue medications, stop all labs, daily weights and his diet has been changed to a regular diet with NO fluid restriction for comfort. (6) ESTEVAN (acute kidney injury) Impression: stable, continue support The patient has had a steady decline in his kidney function and is much improved after switching from lasix to torsemide. Labs are no longer ordered, but the patient's creatinine was last stable at 1.2. Plan: Continue to monitor based on clinical appearance. Stop all labs, and invasive testing. (7) Hypotension Impression: 11/24 pt's SBP is around 80, continue midodrine and monitor, plan to d/c with hospice care when replacement is found for pt The patient is now symptomatic at times with his hypotension and has a baseline systolic blood pressure in the 90's. He continues on Midodrine 2.5mg TID with meals to help with this. Plan: Continue to monitor vital signs for a change in status or as needed. (8) bilateral lower extremities edema with infection 11/24 bilateral lower extremities edema, drainage and infection elevate lower extremities continue MAC wound care continue antibiotics Levaquin continue support, plan to d/c with palliative and hospice care per pt request (9) Do not resuscitate Impression: The patient was informed that he more likely has less than one year to live based on his multi-organ dysfunction and his extremely poor heart function. Palliative care is following and we are awaiting placement with Hospice care. The cardioversion has been taken out of this equation. Plan: Continue DNR code status, and have ongoing conversations, await Hospice consult.
[2017-11-25] MEDS: MORPHINE SOL 10 MG/0.5 ML SYRINGE PO PRN ×6 (00:16→22:58)
[2017-11-25] MEDS: oxyCODONE 5 MG TABLET PO PRN ×3 (04:48→23:42)
[2017-11-25] MEDS: PANTOPRAZOLE 40 MG TABLET PO SCH (06:18)
[2017-11-25] MEDS: SACCHAROMYCES BOULARDII 250 MG CAPSULE PO SCH ×2 (08:29→16:33)
[2017-11-25] MEDS: TORSEMIDE 20 MG TABLET PO SCH (08:29)
[2017-11-25] MEDS: CITALOPRAM 10 MG TABLET PO SCH (08:30)
[2017-11-25] MEDS: MIDODRINE 2.5 MG TABLET PO SCH ×3 (08:30→16:33)
[2017-11-25] MEDS: SENNA 8.6 MG TABLET PO SCH (08:30)
[2017-11-25] MEDS: levoFLOXacin 250 MG TABLET PO SCH (08:30)
[2017-11-25] MEDS: METOPROLOL SUCCINATE 25 MG TABLET PO SCH ×2 (08:31→16:34)
[2017-11-25] MEDS: SPIRONOLACTONE 25 MG TABLET PO SCH (08:31)
[2017-11-25] MEDS ORDERED: SPIRONOLACTONE 25 MG TABLET PO SCH (14:20)
--- NOTE | 2017-11-25 14:38 | PROVIDER PROGRESS NOTE ---
Subjective - Prog Note Date Prog Note Date: 11/25/17 - Subjective Pt reports feeling: No change Subjective: pt report he feels fatigue all the time, denies fever, chill, chest pain. pt report he ate his whole breakfast as well. Current Medications - Current Medications Current Medications: Active Medications Citalopram Hydrobromide (Celexa) 40 mg PO DAILY [facility] Last Admin: 11/25/17 08:30 Dose: 40 mg Levalbuterol HCl (Xopenex) 1.25 mg INH RTQ4H PRN PRN Reason: Wheezing Last Admin: 11/24/17 09:30 Dose: 1.25 mg Levofloxacin (Levaquin) 750 mg PO DAILY [facility] Last Admin: 11/25/17 08:30 Dose: 750 mg Lorazepam (Ativan) 1 mg PO Q4H PRN PRN Reason: Anxiety Metoprolol Succinate (Toprol Xl) 25 mg PO 0800,1700 [facility] Last Admin: 11/25/17 08:31 Dose: Not Given Midodrine () 2.5 mg PO TIDWM [facility] Last Admin: 11/25/17 12:33 Dose: 2.5 mg Morphine Sulfate (Roxanol) 10 mg PO Q2HR PRN PRN Reason: PAIN Last Admin: 11/25/17 12:33 Dose: 10 mg Multi-Ingredient Mouthwash/Gargle () 30 ml PO Q6H PRN PRN Reason: Heartburn Last Admin: 11/13/17 20:34 Dose: 30 ml Nystatin (Mycostatin) 5 ml PO QID PRN PRN Reason: oral thrush Ondansetron HCl (Zofran Odt) 4 mg TL Q6HR PRN PRN Reason: Nausea / Vomiting Last Admin: 11/10/17 16:34 Dose: 4 mg Oxycodone HCl (Roxicodone) 5 mg PO Q4HR PRN PRN Reason: Pain 5 to 7 Last Admin: 11/25/17 04:48 Dose: 5 mg Pantoprazole Sodium (Protonix) 40 mg PO QDAC [facility] Last Admin: 11/25/17 06:18 Dose: 40 mg Saccharomyces Boulardii (Florastor) 250 mg PO BIDWM [facility] Last Admin: 11/25/17 08:29 Dose: 250 mg Senna (Senokot) 8.6 - 17.2 mg PO DAILY [facility] Last Admin: 11/25/17 08:30 Dose: 8.6 mg Spironolactone (Aldactone) 50 mg PO DAILY [facility] Torsemide (Torsemide) 20 mg PO DAILY [facility] Last Admin: 11/25/17 08:29 Dose: 20 mg Warfarin [Coumadin] 5 mg PO DAILY 10/04/17 Amiodarone HCl 200 mg PO DAILY 11/05/17 Multivitamin [Theragran] 1 tab PO DAILY 11/05/17 Objective - Vital Signs/Intake & Output Reviewed Vital Signs: Yes Vital Signs: Vital Signs x48h Temp Pulse Resp BP Pulse Ox 11/25/17 10:00 36.5 C 52 L 16 80/64 L 94 Intake & Output: Intake & Output 11/22/17 11/23/17 11/24/17 11/25/17 23:59 23:59 23:59 23:59 Intake Total 583 413 9764 890 Output Total 300 100 300 Balance 905 451 9861 890 - Objective General Appearance: positive: No acute distress, Alert. negative: Lethargic Eyes Bilateral: positive: Normal inspection, PERRL, No lid inflammation, Conjunctivae nml ENT: positive: ENT inspection nml, Pharynx nml, No signs of dehydration. negative: Purulent nasal drainage, Pharyngeal erythema, Oral lesions Neck: positive: Nml inspection, Thyroid nml, No JVD, Trachea midline. negative: Thyromegaly, Lymphadenopathy (R), Lymphadenopathy (L), Stiff neck, Swelling/bruising, Tracheal deviation Respiratory: positive: Chest non-tender, No respiratory distress, Breath sounds nml. negative: Wheezes, Rales, Rhonchi Cardiovascular: positive: Regular rate & rhythm, No murmur, No gallop, Irr egularly irregular. negative: Extrasystoles, Tachycardia, Bradycardia, JVD present, Systolic murmur, Diastolic murmur Peripheral Pulses: 2+ Radial (R), 2+ Radial (L), 2+ Popliteal (R), 2+ Popliteal (L) Abdomen: positive: Non-tender, No organomegaly, Nml bowel sounds, No distention. negative: Tenderness, Guarding, Rebound Back: positive: Nml inspection. negative: CVA tenderness (R), CVA tenderness (L) Skin: positive: Dry. negative: Cyanosis, Diaphoresis, Pallor Extremities: negative: Calf tenderness, Joint swelling, Tahira's sign/cords Neurologic/Psychiatric: positive: Oriented x3, Sensation nml, Mood/affect nml. negative: Sensory loss, Facial droop, Slurred/abnml speech, Depressed mood/affect - Lab Results Fish Bones: 11/19/17 04:40 11/20/17 05:37 ABX Reporting Has patient been on IV antibiotics over the past 48 hours?: Yes Assessment/Plan - Problem List (1) Confusion Impression: Impression: 11/25 resolved 11/24 pt is alert and oriented today continue support and orient to pt continue fall precaution PT IS WAITING FOR REPLACEMENT, PT IS EXTENDED INPT. (2) Fall Impression: 11/25 resolved, continue fall precaution 11/24 stable, continue fall precaution (3) Hypoxia Impression: 11/25, stable 94% sats on room air continue RT treatment PRN 11/24 stable, 96% sats on 2 liter of O2 continue O2 supplement as needed (4) Chronic atrial fibrillation Impression: 11/25 stable 11/24 HR 78 stable, continue monitor pt and current regime for pt (5) Acute on chronic systolic and diastolic heart failure, NYHA class 4 Impression: 11/25, stable, continue support 11/24 continue support and monitor pt, pt was consulted with palliative care, and plan to be d/c to hospice care per pt request. (6) ESTEVAN (acute kidney injury) Impression: stable, continue support (7) Hypotension Impression: 11/25 continue midodrine and monitor vital, 11/24 pt's SBP is around 80, continue midodrine and monitor, plan to d/c with hospice care when replacement is found for pt (8) bilateral lower extremities edema with infection 11/25 stable, continue elevate lower extremities continue MAC wound care continue antibiotics Levaquin continue forsemide and spironolactine 11/24 bilateral lower extremities edema, drainage and infection elevate lower extremities continue MAC wound care continue antibiotics Levaquin continue support, plan to d/c with palliative and hospice care per pt request (9) Do not resuscitate pt request
[2017-11-26] MEDS: MORPHINE SOL 10 MG/0.5 ML SYRINGE PO PRN ×4 (01:35→12:08)
[2017-11-26] MEDS: oxyCODONE 5 MG TABLET PO PRN ×2 (07:01→13:13)
[2017-11-26] MEDS: PANTOPRAZOLE 40 MG TABLET PO SCH (07:02)
[2017-11-26] MEDS: SACCHAROMYCES BOULARDII 250 MG CAPSULE PO SCH (08:00)
[2017-11-26] MEDS: levoFLOXacin 250 MG TABLET PO SCH (08:00)
[2017-11-26] MEDS: SENNA 8.6 MG TABLET PO SCH (08:00)
[2017-11-26] MEDS: TORSEMIDE 20 MG TABLET PO SCH (08:01)
[2017-11-26] MEDS: MIDODRINE 2.5 MG TABLET PO SCH ×2 (08:01→12:07)
[2017-11-26] MEDS: CITALOPRAM 10 MG TABLET PO SCH (08:01)
[2017-11-26] MEDS: METOPROLOL SUCCINATE 25 MG TABLET PO SCH (08:02)
[2017-11-26 08:26] VITALS: BP 82/56
--- NOTE | 2017-11-26 11:11 | Discharge Plan ---
"Discharge Plan for SNF / [facility] - Discharge Plan And Transition Orders Disposition: 50 Hospice/Home DC/Xfer Condition: Poor Allergies and Adverse Reactions: Allergies Allergy/AdvReac Type Severity Reaction Status Date / Time No Known Drug Allergies Allergy Verified 11/05/17 02:16 - SNF / [facility] Transition Orders Admit to (Facility): [facility] Under the care of (Name): hospice team, Dr. Ott Discharge Diagnosis: systolic heart fail, stage4, bilateral edema with drainage, hypotension, CKD, home O2 dependence, malnutrition. Medicare Certification Statement: I do not certify that [facility] is medically necessary on a continuing basis for any of the conditions for which she/he is receiving care during hospitalization. Notify PCP of admission and forward orders to primary provider for signature. Other Notification Orders: Call PCP immediately if patient develops dyspnea, chest pain/tightness or edema. Additional Bowel Program Orders: If no BM after 2 days, nurse may give M.O.M. 30ml PO PRN and/or ducolax Supp 1 SD and/or SOO 250mg P.O., and/or senna 1-2 tabs PO. On day 3 nurse may give repeat above order until residents constipation is resolved. Treatments & Other Orders: pt may follow up hospice team care after pt is arrival to [facility] Medication Orders: PLEASE REFER TO THE DISCHARGE MEDICATION LIST. Insulin Orders?: No - Medications New Prescriptions: LORazepam [Ativan] 0.5 mg PO Q6H PRN #15 tablet PRN Reason: Anxiety Midodrine 2.5 mg PO TIDWM #15 tablet Morphine Sulfate [Morphine Sulf Oral (Roxanol)] 5 mg PO Q4H PRN #30 ml PRN Reason: Pain/Dyspnea Pantoprazole [Protonix] 40 mg PO QDAC #10 tablet Torsemide 20 mg PO DAILY #5 tablet - Diet Type: Geriatric Texture: Regular Liquids: Thin May have monthly special meal: Yes - Therapies | Activity Additional Instructions: followup hospice care Follow Up: followup hospice care"
--- NOTE | 2017-11-26 11:43 | DISCHARGE SUMMARY ---
"Discharge Summary Discharge Date: 11/26/17 Discharging Provider: CALDERÓN Primary Care Provider: Ranulfo Kelley Condition at Discharge: Poor Discharge Disposition: 50 Hospice/Home DC/Xfer Discharge Facility Name: [facility] - DIAGNOSES Admission Diagnoses: (1) Acute on chronic systolic and diastolic heart failure, NYHA class 4 (2) ESTEVAN (acute kidney injury) (3) COPD (chronic obstructive pulmonary disease) with emphysema (4) Atrial fibrillation with RVR (5) Homelessness (6) Hyponatremia (7) Elevated LFTs Discharge Diagnoses with Status of Each Condition: (1) Acute on chronic systolic and diastolic heart failure, NYHA class 4 pt's EF is less than 20%, pt desires to have hospice care, follow up hospice care (2) ESTEVAN (acute kidney injury) improved, follow up hospice care (3) COPD (chronic obstructive pulmonary disease) with emphysema stable, (4) Atrial fibrillation with RVR stable (5) Homelessness d/c to [facility] with hospice care (6) Hyponatremia chronic and stable (7) Elevated LFTs positive HepC, stable, follow up hospice care (8) bilateral edema with drainage follow up hospice care - HPI History of Present Illness: refer from Dr. Thomason's HPI on 11/05/17 for pt as the following: He is an unfortunate man with an EF of 20% and atrial fib on anticoagulation. He was just admitted 10/04-10/14 for acute chronic systolic CHF with an EF of 20% and bilateral valve regurgitation, and severe right ventricular dysfunction. He came in 65.5 Kg of weight and after diuresis left at 63 Kg. He was able to walk from here to the bus stop in front of the hospital with his walker. He has been compliant with his medications. No recreational substance abuse. [facility] but during the day goes to [employer] or rides the bus. At first he was stable but over the last few days more and more garibay on already shorted endurance was creeping in. He can't walk 5 feet and is sob at rest, talking. His advocate says he turns harris and ashen with walking and has to sit down for 15-20 minutes before he recovers but he can't go far once he gets up. His legs are not as bad as they can usually get but edema is worse. He could lay down uncomfortably bc of orthopnea when he got out of the hospital but in the last week, has to sit upright. One of the [facility] advocates brings him in tonight and Dr. Dobbs finds clear lungs, but orthopnea, garibay (talking), passive liver congestion, and 2+ leg edema (left >right). O2 sat is 93% RA. He will now be admitted for progression of his heart failure with more symptoms of right than left. - CONSULTS | PROCEDURES Consultations: palliative and hospice care - ALLERGIES Allergies/Adverse Reactions: Allergies Allergy/AdvReac Type Severity Reaction Status Date / Time No Known Drug Allergies Allergy Verified 11/05/17 02:16 - MEDICATIONS Home Medications: Ambulatory Orders Medication Instructions Recorded Confirmed Albuterol Sulfate [Proair Hfa 2 puffs INH Q4H #1 hfa.aer.ad 04/28/17 11/05/17 Inhaler] Aspirin [Aspirin EC] 81 mg PO DAILY #30 tablet. 04/28/17 11/05/17 Citalopram [CeleXA] 40 mg ORAL DAILY #30 tablet 04/28/17 11/05/17 Metoprolol Succinate [Toprol Xl] 25 mg PO DAILY #30 tablet 04/28/17 11/05/17 Spironolactone [Aldactone] 50 mg PO DAILY #30 tablet 04/28/17 11/05/17 Amiodarone HCl 200 mg PO DAILY 11/05/17 11/05/17 Multivitamin [Theragran] 1 tab PO DAILY 11/05/17 11/05/17 LORazepam [Ativan] 0.5 mg PO Q6H PRN #15 tablet 11/26/17 Midodrine 2.5 mg PO TIDWM #15 tablet 11/26/17 Morphine Sulfate [Morphine Sulf 5 mg PO Q4H PRN #30 ml 11/26/17 Oral (Roxanol)] Pantoprazole [Protonix] 40 mg PO QDAC #10 tablet 11/26/17 Torsemide 20 mg PO DAILY #5 tablet 11/26/17 - PHYSICAL EXAM AT DISCHARGE General Appearance: positive: No acute distress, Alert. negative: Lethargic Eyes Bilateral: positive: Normal inspection, PERRL, No lid inflammation, Conjunctivae nml ENT: positive: ENT inspection nml, Pharynx nml, No signs of dehydration. negative: Purulent nasal drainage, Pharyngeal erythema, Oral lesions Neck: positive: Nml inspection, Thyroid nml, No JVD, Trachea midline. negative: Thyromegaly, Lymphadenopathy (R), Lymphadenopathy (L), Stiff neck, Swelling/br uising, Tracheal deviation Respiratory: positive: Chest non-tender, No respiratory distress, Breath sounds nml. negative: Wheezes, Rales, Rhonchi Cardiovascular: positive: Regular rate & rhythm, No murmur, No gallop. negative: Irregularly irregular, Extrasystoles, Tachycardia, Bradycardia, JVD present, Systolic murmur, Diastolic murmur Peripheral Pulses: positive: 2+ Abdomen: positive: Non-tender, No organomegaly, Nml bowel sounds, No distention. negative: Tenderness, Guarding, Rebound Back: positive: Nml inspection. negative: CVA tenderness (R), CVA tenderness (L) Skin: positive: Dry, Skin rash Extremities: negative: Tahira's sign/cords Neurologic/Psychiatric: positive: Oriented x3, Mood/affect nml, Weakness. negative: Sensory loss, Facial droop, Slurred/abnml speech, Depressed mood/a ffect - LABS Result Diagrams: 11/19/17 04:40 11/20/17 05:37 - FOLLOW UP Follow Up: follow up hospice care after arrival to [facility] - TIME SPENT Time Spent in Discharge (Minutes): 50"
== END 2017-11-26 13:30 | disposition hospice, home (50) | DRG 291 ==
LOC: EDUNIT# → ED 02:10 → MS2 04:41 → MS3 11-12 00:01 → UNDODISIN 11-26 13:30
PROVIDERS: ADMIT Specialist; ATTEND Nurse Practitioner
DX: I11.0 Hypertensive heart disease with heart failure (principal); J18.1 Lobar pneumonia, unspecified organism; N17.9 Acute kidney failure, unspecified; E87.1 Hypo-osmolality and hyponatremia; B37.0 Candidal stomatitis; I50.43 Acute on chronic combined systolic (congestive) and diastolic (congestive) heart failure; I48.2 Chronic atrial fibrillation; I95.89 Other hypotension; B19.20 Unspecified viral hepatitis C without hepatic coma; F10.11 Alcohol abuse, in remission; R09.02 Hypoxemia; J43.9 Emphysema, unspecified; Z59.0 Homelessness; F32.9 Major depressive disorder, single episode, unspecified; F41.9 Anxiety disorder, unspecified; E78.00 Pure hypercholesterolemia, unspecified; I25.10 Atherosclerotic heart disease of native coronary artery without angina pectoris; I73.9 Peripheral vascular disease, unspecified; Z99.81 Dependence on supplemental oxygen; F17.210 Nicotine dependence, cigarettes, uncomplicated; F03.90 Unspecified dementia, unspecified severity, without behavioral disturbance, psychotic disturbance, mood disturbance, and anxiety; K21.9 Gastro-esophageal reflux disease without esophagitis; N40.1 Benign prostatic hyperplasia with lower urinary tract symptoms; R35.0 Frequency of micturition; R35.1 Nocturia; H54.7 Unspecified visual loss; J32.9 Chronic sinusitis, unspecified; G89.29 Other chronic pain; M54.9 Dorsalgia, unspecified; Z66 Do not resuscitate; Z51.5 Encounter for palliative care; R41.0 Disorientation, unspecified; Z74.2 Need for assistance at home and no other household member able to render care; M25.532 Pain in left wrist; W18.30XA Fall on same level, unspecified, initial encounter; Y93.E1 Activity, personal bathing and showering; Y92.231 Patient bathroom in hospital as the place of occurrence of the external cause; Z91.19 Patient's noncompliance with other medical treatment and regimen; Z72.89 Other problems related to lifestyle; Z79.01 Long term (current) use of anticoagulants; Z79.51 Long term (current) use of inhaled steroids; Z79.82 Long term (current) use of aspirin; Z79.891 Long term (current) use of opiate analgesic; Z79.899 Other long term (current) drug therapy; I25.2 Old myocardial infarction; Z91.81 History of falling
CPT/HCPCS: 36415; 71045; 71046; 76700; 80048; 80053; 80074; 80306; 80320; 81001; 81003; 82140; 83690; 83735; 83880; 84484; 85025; 85610; 87070; 87086; 87205; 87389; 87522; 93005; 93306; 94640; 96374; 99222; 99232; 99233; 99283; 99284

== ENCOUNTER 2017-11-26 13:26 | Outpatient (CLI) | payer MEDICAID | END 2017-11-26 13:27 | disposition home or self-care (01) | LOC: EMS 13:26 | PROVIDERS: ATTEND Surgery | DX: I50.9 Heart failure, unspecified (principal); I48.91 Unspecified atrial fibrillation; R60.0 Localized edema; Z74.01 Bed confinement status | CPT/HCPCS: A0425; A0428; A0999 ==

== ENCOUNTER 2018-03-20 12:29 | Outpatient (CLI) | payer MEDICAID | END 2018-03-20 12:30 | disposition critical access hospital (66) | LOC: EMS 12:29 | PROVIDERS: ATTEND Surgery | DX: S69.90XA Unspecified injury of unspecified wrist, hand and finger(s), initial encounter (principal); W18.30XA Fall on same level, unspecified, initial encounter; Y93.01 Activity, walking, marching and hiking; Y92.199 Unspecified place in other specified residential institution as the place of occurrence of the external cause | CPT/HCPCS: A0425; A0429; A0999 ==

== ENCOUNTER 2018-03-20 12:47 | Emergency (ER) | payer MEDICAID ==
--- NOTE | 2018-03-20 12:54 | ED Physician Documentation ---
PD HPI Fall - Stated complaint Stated Complaint: GLF - History obtained from History obtained from: Patient, EMS - History of Present Illness Mechanism of injury: Lost balance (This is a 57-year-old gentleman who is a resident of a local assisted living center. He is on hospice for end-stage CHF and alcoholism. He had a dizzy episode today and fell and suffered a skin tear on the back of the left hand and a puncture wound on the left forehead. No other injuries. He denies headache. There is no pain anywhere. Hospice nurse called me prior to arrival and recommended against advanced imaging or anything other than wound care given his goals of care.) Review of Systems Constitutional: denies: Fever, Chills, Fatigue Respiratory: denies: Dyspnea, Cough GI: denies: Abdominal Pain, Nausea, Vomiting PD PAST MEDICAL HISTORY - Past Medical History Cardiovascular: Congestive heart failure, Hypertension, High cholesterol, Coronary artery disease, Peripheral Vascular Disease, [place], Atrial fibrillation, Murmur, Arrhythmia, Valve disorder Respiratory: COPD, Emphysema, Shortness of breath Neuro: Head injury, Headaches, Peripheral neuropathy Endocrine/Autoimmune: None GI: GERD 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 04/28/17 11/05/17 Citalopram [CeleXA] 40 mg ORAL DAILY #30 tablet 04/28/17 11/05/17 Metoprolol Succinate [Toprol Xl] 25 mg PO DAILY #30 tablet 04/28/17 11/05/17 Spironolactone [Aldactone] 50 mg PO DAILY #30 tablet 04/28/17 11/05/17 Amiodarone HCl 200 mg PO DAILY 11/05/17 11/05/17 Multivitamin [Theragran] 1 tab PO DAILY 11/05/17 11/05/17 LORazepam [Ativan] 0.5 mg PO Q6H PRN #15 tablet 11/26/17 Pantoprazole [Protonix] 40 mg PO QDAC #10 tablet 11/26/17 Morphine Sulfate [Morphine Sulf 10 mg PO Q4H PRN 03/20/18 Oral (Roxanol)] - Allergies Allergies/Adverse Reactions: Allergies Allergy/AdvReac Type Severity Reaction Status Date / Time No Known Drug Allergies Allergy Verified 03/20/18 12:55 - Social History Does the pt smoke?: Yes Smoking Status: Current every day smoker Does the pt drink ETOH?: Yes Does the pt have substance abuse?: Yes - Immunizations Immunizations are current?: Yes - POLST Patient has POLST: Yes POLST Status: DNR PD ED PE NORMAL - Vitals Vital signs reviewed: Yes - General General: Alert and oriented X 3, No acute distress - HEENT HEENT: PERRL, EOMI - Neck Neck: Supple, no meningeal sign, No bony TTP, Other (Tiny lac Left synagogue, shallow) - Back Back: No CVA TTP, No spinal TTP - Derm Derm: No rash - Extremities Extremities: No edema, No calf tenderness / cord, Other (Lg but shallow skin tear sorsal Left Hand, without TTP or limited ROM) - Neuro Neuro: Alert and oriented X 3, Normal speech Eye Opening: Spontaneous Motor: Obeys Commands Verbal: Oriented GCS Score: 15 Results - Vitals Vitals: Vital Signs - 24 hr 03/20/18 12:49 Temperature 36.2 C L Heart Rate 72 Respiratory 15 Rate Blood Pressure 108/88 H Oxygen O2 Source Room air Procedures - Laceration (location) Left hand Length in cm: 3 Wound type: Flap, Superficial Wound Preparation: Irrigated copiously NS Skin layer closure: Steri strips Other: Tetanus UTD Complexity: Simple Left forehead Length in cm: 0.3 Wound Preparation: Irrigated copiously NS Skin layer closure: Dermabond Complexity: Simple Departure - Departure Disposition: 01 Home, Self Care Clinical Impression: Fall, Skin tear of hand without complication, Facial laceration Condition: Stable Record reviewed to determine appropriate education?: Yes Instructions: ED Laceration Hand Comments: Call your doctor to arrange a follow-up appointment, make the next available appointment. In the interim, return anytime if worse or if new symptoms develop.
[2018-03-20 12:56] VITALS: BP 108/88
[2018-03-20] MEDS ORDERED: MORPHINE SOL 10 MG/0.5 ML SYRINGE PO STA (13:44)
== END 2018-03-20 14:35 | disposition home or self-care (01) ==
LOC: EDUNIT# → EDBD → ED 12:47
DX: S01.81XA Laceration without foreign body of other part of head, initial encounter (principal); S61.412A Laceration without foreign body of left hand, initial encounter; W18.30XA Fall on same level, unspecified, initial encounter; Y92.099 Unspecified place in other non-institutional residence as the place of occurrence of the external cause; I11.0 Hypertensive heart disease with heart failure; I50.9 Heart failure, unspecified; I25.10 Atherosclerotic heart disease of native coronary artery without angina pectoris; E78.00 Pure hypercholesterolemia, unspecified; I25.2 Old myocardial infarction; I73.9 Peripheral vascular disease, unspecified; Z79.82 Long term (current) use of aspirin; F17.200 Nicotine dependence, unspecified, uncomplicated
CPT/HCPCS: 12002; 12011; 99282; 99283; A9270; 12013; 12055

== ENCOUNTER 2018-08-07 09:05 | Outpatient (CLI) | payer MEDICAID | END 2018-08-07 09:06 | disposition critical access hospital (66) | LOC: EMS 09:05 | PROVIDERS: ATTEND Surgery | DX: S51.811A Laceration without foreign body of right forearm, initial encounter (principal); W01.0XXA Fall on same level from slipping, tripping and stumbling without subsequent striking against object, initial encounter; Y92.008 Other place in unspecified non-institutional (private) residence as the place of occurrence of the external cause | CPT/HCPCS: A0425; A0429; A0999 ==

== ENCOUNTER 2018-08-07 10:01 | Emergency (ER) | payer MEDICAID ==
[2018-08-07 10:09] VITALS: BP 119/85
--- NOTE | 2018-08-07 10:34 | ED Physician Documentation ---
PD HPI UPPER EXT INJURY - Stated complaint Stated Complaint: HBD - Chief complaint Chief Complaint: Laceration - History obtained from History obtained from: Patient - History of Present Illness Location: Right, Forearm Type of injury: Fall Where injury occurred: Street Timing - onset: Today Timing - duration: Minutes Timing - details: Abrupt onset, Still present Improved by: Rest, Immobilization Worsened by: Moving, Palpating Similar symptoms before: Diagnosis (laceration) Recently seen: Not recently seen - Additonal information Additional information: 58-year-old male who is intoxicated had a fall today in town and was brought to the emergency department for evaluation of skin tears. He does not otherwise have injuries. 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 : Benign prostate hypertrophy, Nocturia, Frequency HEENT: Chronic vision loss, Chronic sinusitis Psych: Depression, Anxiety, Other Musculoskeletal: Chronic back pain Derm: None - Past Surgical History Past Surgical History: Yes HEENT: Tonsil/Adenoidectomy - Present Medications Home Medications: Ambulatory Orders Medication Instructions Recorded Confirmed Albuterol Sulfate [Proair Hfa 2 puffs INH Q4H #1 hfa.aer.ad 04/28/17 11/05/17 Inhaler] Citalopram [CeleXA] 40 mg ORAL DAILY #30 tablet 04/28/17 03/20/18 Metoprolol Succinate [Toprol Xl] 25 mg PO DAILY #30 tablet 04/28/17 03/20/18 Spironolactone [Aldactone] 50 mg PO DAILY #30 tablet 04/28/17 03/20/18 Multivitamin [Theragran] 1 tab PO DAILY 11/05/17 11/05/17 Pantoprazole [Protonix] 40 mg PO QDAC #10 tablet 11/26/17 03/20/18 Acetaminophen 650 mg RC Q6HR PRN 03/20/18 03/20/18 Bisacodyl Supp [Dulcolax Supp] 1 supp MD AC PRN 03/20/18 03/20/18 Haloperidol Oral Soln [Haldol Oral 1 mg PO DAILY PM 03/20/18 03/20/18 Soln] Hyoscyamine Sulfate 0.25 mg PO Q4H 03/20/18 03/20/18 LORazepam [Ativan] 1 tab PO Q6H PRN 03/20/18 03/20/18 Lactulose 10 gm PO DAILY 03/20/18 03/20/18 Morphine Sulfate [Morphine Sulf 5 mg PO Q4H PRN 03/20/18 03/20/18 Oral (Roxanol)] Morphine Sulfate [Morphine Sulf 10 mg PO Q4H PRN 03/20/18 03/20/18 Oral (Roxanol)] Senna [Senokot] 8.6 mg PO BID 03/20/18 03/20/18 - Allergies Allergies/Adverse Reactions: Allergies Allergy/AdvReac Type Severity Reaction Status Date / Time No Known Drug Allergies Allergy Verified 08/07/18 10:09 - Social History Does the pt smoke?: Yes Smoking Status: Current every day smoker Does the pt drink ETOH?: Yes Does the pt have substance abuse?: Yes - Immunizations Immunizations are current?: Yes - POLST Patient has POLST: Yes POLST Status: DNR PD ED PE NORMAL - Vitals Vital signs reviewed: Yes (hypertensive) - General General: Alert and oriented X 3, No acute distress, Well developed/nourished - HEENT HEENT: Atraumatic, PERRL, EOMI - Neck Neck: Supple, no meningeal sign - Respiratory Respiratory: No respiratory distress - Derm Derm: Normal color, Warm and dry, No rash - Extremities Extremities: Other (over the dorsal surface of the right forearm there are 2 thin skin flaps that cover the defect. ) - Neuro Neuro: Alert and oriented X 3, transcription coordinator 2-12 intact, No motor deficit, No sensory deficit, Normal speech Eye Opening: Spontaneous Motor: Obeys Commands Verbal: Oriented GCS Score: 15 - Psych Psych: Normal mood, Normal affect Results - Vitals Vitals: Vital Signs - 24 hr 08/07/18 10:07 Temperature 36.7 C Heart Rate 86 Respiratory 20 Rate Blood Pressure 119/85 H O2 Saturation 98 Oxygen O2 Source Room air PD MEDICAL DECISION MAKING - ED course Complexity details: considered differential, d/w patient ED course: 58-year-old male with thin skin flaps that are cleaned and closed with Steri- Strips and dressing. Departure - Departure Disposition: 01 Home, Self Care Clinical Impression: Alcohol intoxication Qualifiers: Complication of substance-induced condition: uncomplicated Qualified Code(s): F10.920 - Alcohol use, unspecified with intoxication, uncomplicated Avulsion of skin of forearm Qualifiers: Encounter type: initial encounter Laterality: right Qualified Code(s): S51.801A - Unspecified open wound of right forearm, initial encounter Condition: Stable Instructions: ED Laceration Ext Sutr Stap Tape, ED Avulsion Dermal Follow-Up: Ranulfo Mccormick PA-C [Primary Care Provider] - Discharge Date/Time: 08/07/18 10:44
== END 2018-08-07 10:44 | disposition home or self-care (01) ==
LOC: EDUNIT# → ED 10:01
DX: S51.811A Laceration without foreign body of right forearm, initial encounter (principal); W18.30XA Fall on same level, unspecified, initial encounter; Y92.410 Unspecified street and highway as the place of occurrence of the external cause; F10.920 Alcohol use, unspecified with intoxication, uncomplicated; I10 Essential (primary) hypertension; F17.200 Nicotine dependence, unspecified, uncomplicated; Z66 Do not resuscitate
CPT/HCPCS: 99283

== ENCOUNTER 2018-08-10 18:19 | Emergency (ER) | payer MEDICAID ==
[2018-08-10 18:27] VITALS: BP 138/91
[2018-08-10] MEDS ORDERED: BACITRACIN OINT TOP STA (18:49)
--- NOTE | 2018-08-10 18:51 | ED Physician Documentation ---
History of Present Illness - Stated complaint Stated Complaint: DRESSING CHANGE R ARM - Chief complaint Chief Complaint: General - History obtained from History obtained from: Patient - History of Present Illness Timing: How many weeks ago (1) Pain level max: 0 Pain level now: 0 - Additonal information Additional information: Skin tear to the right forearm a week ago. Repaired with Steri-Strips and Tegaderm. Has not changed the bandage. Here for repeat evaluation. No fevers. No redness. No swelling. 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 : Benign prostate hypertrophy, Nocturia, Frequency HEENT: Chronic vision loss, Chronic sinusitis Psych: Depression, Anxiety, Other Musculoskeletal: Chronic back pain Derm: None - Past Surgical History Past Surgical History: Yes HEENT: Tonsil/Adenoidectomy - Present Medications Home Medications: Ambulatory Orders Medication Instructions Recorded Confirmed Albuterol Sulfate [Proair Hfa 2 puffs INH Q4H #1 hfa.aer.ad 04/28/17 11/05/17 Inhaler] Citalopram [CeleXA] 40 mg ORAL DAILY #30 tablet 04/28/17 03/20/18 Metoprolol Succinate [Toprol Xl] 25 mg PO DAILY #30 tablet 04/28/17 03/20/18 Spironolactone [Aldactone] 50 mg PO DAILY #30 tablet 04/28/17 03/20/18 Multivitamin [Theragran] 1 tab PO DAILY 11/05/17 11/05/17 Pantoprazole [Protonix] 40 mg PO QDAC #10 tablet 11/26/17 03/20/18 Acetaminophen 650 mg RC Q6HR PRN 03/20/18 03/20/18 Bisacodyl Supp [Dulcolax Supp] 1 supp [place] AC PRN 03/20/18 03/20/18 Haloperidol Oral Soln [Haldol Oral 1 mg PO DAILY PM 03/20/18 03/20/18 Soln] Hyoscyamine Sulfate 0.25 mg PO Q4H 03/20/18 03/20/18 LORazepam [Ativan] 1 tab PO Q6H PRN 03/20/18 03/20/18 Lactulose 10 gm PO DAILY 03/20/18 03/20/18 Morphine Sulfate [Morphine Sulf 5 mg PO Q4H PRN 03/20/18 03/20/18 Oral (Roxanol)] Morphine Sulfate [Morphine Sulf 10 mg PO Q4H PRN 03/20/18 03/20/18 Oral (Roxanol)] Senna [Senokot] 8.6 mg PO BID 03/20/18 03/20/18 - Allergies Allergies/Adverse Reactions: Allergies Allergy/AdvReac Type Severity Reaction Status Date / Time No Known Drug Allergies Allergy Verified 08/10/18 18:25 - Social History Does the pt smoke?: Yes Smoking Status: Current every day smoker Does the pt drink ETOH?: Yes Does the pt have substance abuse?: Yes Substance Use and Type: Marijuana - Immunizations Immunizations are current?: Yes - POLST Patient has POLST: Yes POLST Status: DNR PD ED PE NORMAL - Vitals Vital signs reviewed: Yes - General General: Alert and oriented X 3 - HEENT HEENT: Moist mucous membranes - Derm Derm: Warm and dry - Extremities Extremities: Other (2 small skin tears to the right forearm. No signs of infection. Neurovascular intact) - Neuro Neuro: Alert and oriented X 3 Results - Vitals Vitals: Vital Signs - 24 hr 08/10/18 18:21 Temperature 37.2 C Heart Rate 115 H Respiratory 14 Rate Blood Pressure 138/91 H O2 Saturation 98 Oxygen O2 Source Room air PD MEDICAL DECISION MAKING - ED course Complexity details: considered differential, d/w patient ED course: Old dressing was removed. Mepitel was placed and Kerlix lightly wrapped around it. No evidence of infection. Warnings of infection and instructions on wound care given at bedside. Also counseled on how to minimize scarring. Patient counseled regarding signs and symptoms for which I believe and urgent re- evaluation would be necessary. Patient with good understanding of and agreement to plan and is comfortable going home at this time This document was made in part using voice recognition software. While efforts are made to proofread this document, sound alike and grammatical errors may occur. Departure - Departure Disposition: 01 Home, Self Care Clinical Impression: Skin tear Condition: Good Instructions: ED Laceration All Follow-Up: Ranulfo Mccormick PA-C [Primary Care Provider] - Within 1 week Comments: Leave the Mepitel in place for approximately 10 to 14 days. It can be removed after that time. This should allow the wound times to heal. You can cover it with gauze to keep it clean. You can remove the Kerlix tomorrow. You can apply antibiotic ointment over the Mepitel as well. Return if you notice redness, swelling or drainage from the wound Discharge Date/Time: 08/10/18 18:57
== END 2018-08-10 18:57 | disposition home or self-care (01) ==
LOC: ED 18:19
DX: S51.811A Laceration without foreign body of right forearm, initial encounter (principal); W19.XXXA Unspecified fall, initial encounter; Z48.00 Encounter for change or removal of nonsurgical wound dressing; I10 Essential (primary) hypertension; F17.200 Nicotine dependence, unspecified, uncomplicated
CPT/HCPCS: 99282; 99283; A9270

== ENCOUNTER 2019-01-21 13:02 | Outpatient (CLI) | payer MEDICAID | END 2019-01-21 13:03 | disposition short-term general hospital (02) | LOC: EMS 13:02 | PROVIDERS: ATTEND Surgery | DX: F10.129 Alcohol abuse with intoxication, unspecified (principal) | CPT/HCPCS: A0425; A0429 ==

== ENCOUNTER 2019-01-21 13:18 | Emergency (ER) | payer MEDICAID ==
--- NOTE | 2019-01-21 13:44 | ED Physician Documentation ---
PD HPI ALTERED MENTAL STATUS - Stated complaint Stated Complaint: ETOH - Chief complaint Chief Complaint: General - History obtained from History obtained from: Patient, EMS - History of Present Illness Timing - onset: Today (Paramedics were called to a hotel room because of another person's trauma, he was there and just drunk. He has no complaints, [place] [employer] wanted him to come to the emergency department. He declines any medical evaluation. Admits to drinking today.) Review of Systems Constitutional: denies: Fever, Chills Nose: denies: Rhinorrhea / runny nose, Congestion Throat: denies: Sore throat Cardiac: denies: Chest pain / pressure, Palpitations Respiratory: denies: Dyspnea PD PAST MEDICAL HISTORY - Past Medical History Cardiovascular: Congestive heart failure, Hypertension, High cholesterol, Coronary artery disease, Peripheral Vascular Disease, [place], Atrial fibrillation, Murmur, Arrhythmia, Valve disorder Respiratory: COPD, Emphysema, Shortness of breath Neuro: Head injury, Headaches, Peripheral neuropathy Endocrine/Autoimmune: None GI: GERD 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 : Benign prostate hypertrophy, Nocturia, Frequency HEENT: Chronic vision loss, Chronic sinusitis Psych: Depression, Anxiety, Other Musculoskeletal: Chronic back pain Derm: None - Past Surgical History Past Surgical History: Yes HEENT: Tonsil/Adenoidectomy - Present Medications Home Medications: Ambulatory Orders Medication Instructions Recorded Confirmed Albuterol Sulfate [Proair Hfa 2 puffs INH Q4H #1 hfa.aer.ad 04/28/17 11/05/17 Inhaler] Citalopram [CeleXA] 40 mg ORAL DAILY #30 tablet 04/28/17 03/20/18 Metoprolol Succinate [Toprol Xl] 25 mg PO DAILY #30 tablet 04/28/17 03/20/18 Spironolactone [Aldactone] 50 mg PO DAILY #30 tablet 04/28/17 03/20/18 Multivitamin [Theragran] 1 tab PO DAILY 11/05/17 11/05/17 Pantoprazole [Protonix] 40 mg PO QDAC #10 tablet 11/26/17 03/20/18 Acetaminophen 650 mg RC Q6HR PRN 03/20/18 03/20/18 Bisacodyl Supp [Dulcolax Supp] 1 supp [place] AC PRN 03/20/18 03/20/18 Haloperidol Oral Soln [Haldol Oral 1 mg PO DAILY PM 03/20/18 03/20/18 Soln] Hyoscyamine Sulfate 0.25 mg PO Q4H 03/20/18 03/20/18 LORazepam [Ativan] 1 tab PO Q6H PRN 03/20/18 03/20/18 Lactulose 10 gm PO DAILY 03/20/18 03/20/18 Morphine Sulfate [Morphine Sulf 5 mg PO Q4H PRN 03/20/18 03/20/18 Oral (Roxanol)] Morphine Sulfate [Morphine Sulf 10 mg PO Q4H PRN 03/20/18 03/20/18 Oral (Roxanol)] Senna [Senokot] 8.6 mg PO BID 03/20/18 03/20/18 - Allergies Allergies/Adverse Reactions: Allergies Allergy/AdvReac Type Severity Reaction Status Date / Time No Known Drug Allergies Allergy Verified 01/21/19 13:21 - Social History Does the pt smoke?: Yes Smoking Status: Current every day smoker Does the pt drink ETOH?: Yes Does the pt have substance abuse?: Yes - Immunizations Immunizations are current?: Yes - POLST Patient has POLST: Yes POLST Status: DNR PD ED PE NORMAL - Vitals Vital signs reviewed: Yes - General General: Alert and oriented X 3, No acute distress, Other (Slow slurred speech but pleasant and cooperative) - HEENT HEENT: PERRL - Neck Neck: Supple, no meningeal sign, No bony TTP - Cardiac Cardiac: RRR, No murmur - Respiratory Respiratory: No respiratory distress, Clear bilaterally - Abdomen Abdomen: Non tender - Back Back: No spinal TTP - Derm Derm: Normal color, Warm and dry - Extremities Extremities: No deformity, No tenderness to palpate - Neuro Neuro: Alert and oriented X 3, Normal speech Results - Vitals Vitals: Vital Signs - 24 hr 01/21/19 01/21/19 01/21/19 13:21 13:54 14:40 Temperature 36.2 C L Heart Rate 78 84 85 Respiratory 18 18 18 Rate Blood Pressure 140/99 H 149/96 H 129/71 O2 Saturation 96 95 92 01/21/19 15:16 Temperature Heart Rate 88 Respiratory 18 Rate Blood Pressure 127/89 H O2 Saturation 94 Oxygen O2 Source Room air PD MEDICAL DECISION MAKING - ED course ED course: This is a 58-year-old gentleman who [facility] He has no medical complaints and declines evaluation. He does seem drunk. We will observe him until it is appropriate to discharge him. He was checked on several times over the next few hours with clinical improvement. Steady gait and ambulatory in the [place] and requesting discharge to the bus. Departure - Departure Disposition: 01 Home, Self Care Clinical Impression: Alcohol intoxication Qualifiers: Complication of substance-induced condition: uncomplicated Qualified Code(s): F10.920 - Alcohol use, unspecified with intoxication, uncomplicated Condition: Good Record reviewed to determine appropriate education?: Yes Instructions: ED Alcohol Intoxication Comments: Try to cut back on your alcohol intake. Return for new or worsening symptoms. Follow-up with your primary care physician, next available appointment.
[2019-01-21 15:17] VITALS: BP 127/89
== END 2019-01-21 16:25 | disposition home or self-care (01) ==
LOC: EDUNIT# → ED 13:18
DX: F10.920 Alcohol use, unspecified with intoxication, uncomplicated (principal); F17.200 Nicotine dependence, unspecified, uncomplicated; I10 Essential (primary) hypertension
CPT/HCPCS: 99283

== ENCOUNTER 2019-02-12 18:58 | Outpatient (CLI) | payer MEDICAID | END 2019-02-12 18:59 | disposition critical access hospital (66) | LOC: EMS 18:58 | PROVIDERS: ATTEND Surgery | DX: R06.02 Shortness of breath (principal); R07.9 Chest pain, unspecified; R53.1 Weakness | CPT/HCPCS: A0425; A0429; A0999 ==

== ENCOUNTER 2019-02-12 19:15 | Emergency (ER) | payer MEDICAID ==
[2019-02-12] MEDS ORDERED: IPRATROPIUM/ALBUTEROL 3 ML NEB INH STA (19:22)
--- NOTE | 2019-02-12 19:31 | ED Physician Documentation ---
History of Present Illness - Stated complaint Stated Complaint: SOA - Chief complaint Chief Complaint: Resp - History obtained from History obtained from: Patient, EMS - History of Present Illness Timing: Today Pain level max: 0 Pain level now: 0 - Additonal information Additional information: 58-year-old male has not been taking his medications for the past several days. He was walking outside in the cold today when he began to feel short of breath. Has not used his inhaler for several days. Called 911 and EMS gave him an albuterol nebulizer treatment. This resolved his symptoms and he now feels normal. No fevers. Mild dry cough. No chest pain. Worse with walking and better with rest. Review of Systems Ten Systems: 10 systems reviewed and negative Constitutional: denies: Fever, Chills Throat: denies: Sore throat Cardiac: denies: Chest pain / pressure Respiratory: reports: Dyspnea, Cough, Wheezing GI: denies: Nausea, Vomiting, Diarrhea Skin: denies: Rash Musculoskeletal: denies: Neck pain, Back pain Neurologic: denies: Focal weakness, Numbness, Headache PD PAST MEDICAL HISTORY - Past Medical History Cardiovascular: Congestive heart failure, Hypertension, High cholesterol, Coronary artery disease, Peripheral Vascular Disease, [place], Atrial fibrillation, Murmur, Arrhythmia, Valve disorder Respiratory: COPD, Emphysema, Shortness of breath Neuro: Head injury, Headaches, Peripheral neuropathy Endocrine/Autoimmune: None GI: GERD 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 : Benign prostate hypertrophy, Nocturia, Frequency HEENT: Chronic vision loss, Chronic sinusitis Psych: Depression, Anxiety, Other Musculoskeletal: Chronic back pain Derm: None - Past Surgical History Past Surgical History: Yes HEENT: Tonsil/Adenoidectomy - Present Medications Home Medications: Ambulatory Orders Medication Instructions Recorded Confirmed Citalopram [CeleXA] 40 mg ORAL DAILY #30 tablet 04/28/17 02/12/19 Metoprolol Succinate [Toprol Xl] 25 mg PO DAILY #30 tablet 04/28/17 02/12/19 Spironolactone [Aldactone] 50 mg PO DAILY #30 tablet 04/28/17 02/12/19 Pantoprazole [Protonix] 40 mg PO QDAC #10 tablet 11/26/17 02/12/19 Haloperidol Oral Soln [Haldol Oral 1 mg PO DAILY PM 03/20/18 02/12/19 Soln] Hyoscyamine Sulfate 0.25 mg PO Q4H 03/20/18 03/20/18 Albuterol Sulf [Ventolin Hfa 1 - 2 puffs INH Q4HR PRN #1 inhaler 02/12/19 Inhaler] Torsemide 20 mg PO DAILY 02/12/19 02/12/19 hydrOXYzine HCL [Hydroxyzine HCl] 50 mg PO QPM 02/12/19 02/12/19 predniSONE [Deltasone] 10 mg PO [id number] #42 tab 02/12/19 - Allergies Allergies/Adverse Reactions: Allergies Allergy/AdvReac Type Severity Reaction Status Date / Time No Known Drug Allergies Allergy Verified 02/12/19 20:38 - Social History Does the pt smoke?: Yes Smoking Status: Current every day smoker Does the pt drink ETOH?: Yes Does the pt have substance abuse?: Yes - Immunizations Immunizations are current?: Yes - POLST Patient has POLST: Yes POLST Status: DNR PD ED PE NORMAL - Vitals Vital signs reviewed: Yes - General General: Alert and oriented X 3, No acute distress - HEENT HEENT: PERRL, Ears normal, Moist mucous membranes, Pharynx benign - Neck Neck: Supple, no meningeal sign, No adenopathy - Cardiac Cardiac: RRR - Respiratory Respiratory: No respiratory distress, Other (Very diminished breath sounds bilaterally with wheezing.) - Abdomen Abdomen: Soft, Non tender, Non distended - Derm Derm: Warm and dry - Extremities Extremities: No edema - Neuro Neuro: Alert and oriented X 3 - Psych Psych: Normal mood, Normal affect Results - Vitals Vitals: Vital Signs - 24 hr 02/12/19 02/12/19 02/12/19 19:15 19:36 19:43 Temperature 36.7 C Heart Rate 99 88 82 Respiratory 16 19 16 Rate Blood Pressure 151/88 H 151/90 H O2 Saturation 97 97 02/12/19 02/12/19 02/12/19 20:07 20:37 22:08 Temperature 98.6 C H Heart Rate 100 98 111 H Respiratory 20 19 16 Rate Blood Pressure 136/100 H 140/75 H 130/73 O2 Saturation 99 96 94 02/12/19 02/12/19 22:17 22:20 Temperature 36.9 C Heart Rate 110 H 107 H Respiratory 24 18 Rate Blood Pressure 130/73 O2 Saturation 94 Oxygen O2 Source Room air - EKG (time done) 192 Rate: Rate (enter#) (84) Rhythm: NSR [place]: Anterior hemiblock (LAFB) Intervals: Normal SD QRS: Normal Ischemia: Normal ST segments, Q waves (V1-3) - Labs Labs: Laboratory Tests 02/12/19 02/12/19 02/12/19 19:30 19:30 19:30 WBC 11.7 H RBC 3.99 L Hgb 13.8 L Hct 40.8 L MCV 102.3 H MCH 34.6 H MCHC 33.8 RDW 14.1 Plt Count 326 MPV 9.3 Neut # (Auto) 8.8 H Lymph # (Auto) 1.7 Barren # (Auto) 1.0 Eos # (Auto) 0.1 Baso # (Auto) 0.1 Absolute Nucleated RBC 0.00 Nucleated RBC % 0.0 Sodium 149 H Potassium 3.8 Chloride 108 Carbon Dioxide 31 Anion Gap 10.0 BUN 9 Creatinine 0.9 Estimated GFR (MDRD) 87 L Glucose 110 H Calcium 8.5 Total Bilirubin 0.6 AST 26 ALT 15 Alkaline Phosphatase 67 Troponin I High Sens 25.4 H* Total Protein 7.2 Albumin 3.9 Globulin 3.3 Albumin/Globulin Ratio 1.2 Lipase 42 02/12/19 21:30 WBC RBC Hgb Hct MCV MCH MCHC RDW Plt Count MPV Neut # (Auto) Lymph # (Auto) Bar[place] # (Auto) Eos # (Auto) Baso # (Auto) Absolute Nucleated RBC Nucleated RBC % Sodium Potassium Chloride Carbon Dioxide Anion Gap BUN Creatinine Estimated GFR (MDRD) Glucose Calcium Total Bilirubin AST ALT Alkaline Phosphatase Troponin I High Sens 27.6 H* Total Protein Albumin Globulin Albumin/Globulin Ratio Lipase - Rads (name of study) cxr Radiology: Prelim report reviewed, EMP read contemporaneously, See rad report (1. Atelectatic changes. 2. No acute pulmonary process. ) PD MEDICAL DECISION MAKING - ED course Complexity details: reviewed results, re-evaluated patient, considered differential, d/w patient ED course: 58-year-old male with what appears to be a COPD exacerbation. Feels better after nebulizer treatment. He is well-appearing, nontoxic. Afebrile. No evidence of acute CO. No change in the delta troponin. He is well-appearing, nontoxic. No acute findings on EKG or chest x-ray. We will prescribe steroids for home. Patient counseled regarding signs and symptoms for which I believe and urgent re-evaluation would be necessary. Patient with good understanding of and agreement to plan and is comfortable going home at this time This document was made in part using voice recognition software. While efforts are made to proofread this document, sound alike and grammatical errors may occur. Departure - Departure Disposition: Home, Self Care Clinical Impression: COPD (chronic obstructive pulmonary disease) with emphysema Qualifiers: Emphysema type: unspecified Qualified Code(s): J43.9 - Emphysema, unspecified Condition: Good Instructions: ED COPD Flare Follow-Up: Ranulfo Mccormick PA-C [Primary Care Provider] - Within 1 week Prescriptions: Albuterol Sulf [Ventolin Hfa Inhaler] 1 - 2 puffs INH Q4HR PRN #1 inhaler PRN Reason: Shortness Of Air/Wheezing predniSONE [Deltasone] 10 mg PO [id number] #42 tab Comments: Return if you worsen. continue your medications at home.
[2019-02-12 19:35] LABS: BASOPHILS # (AUTO) 0.1 10^3/uL (0.0-0.1); BASOPHILS % (AUTO) 0.7 %; EOSINOPHILS # (AUTO) 0.1 10^3/uL (0.0-0.7); EOSINOPHILS % (AUTO) 0.8 %; HGB - HEMOGLOBIN 13.8 g/dL (14.0-18.0); LYMPHOCYTES # (AUTO) 1.7 10^3/uL (1.5-3.5); LYMPHOCYTES % (AUTO) 14.2 %; MEAN CORPUSCULAR HEMOGLOBIN 34.6 pg (27.0-31.0); MEAN CORPUSCULAR HGB CONC 33.8 g/dL (32.0-36.0); MEAN CORPUSCULAR VOLUME 102.3 fL (80.0-94.0); MEAN PLATELET VOLUME 9.3 fL (7.4-11.4); MONOCYTES % (AUTO) 8.5 %; NEUTROPHILS # (AUTO) 8.8 10^3/uL (1.5-6.6); NEUTROPHILS % (AUTO) 75.3 %; PLT - PLATELET COUNT 326 10^3/uL (130-450); RED BLOOD COUNT 3.99 10^6/uL (4.70-6.10); RED CELL DISTRIBUTION WIDTH 14.1 % (12.0-15.0); WHITE BLOOD COUNT 11.7 x10^3/uL (4.8-10.8)
[2019-02-12 19:50] LABS: ALBUMIN 3.9 g/dL (3.2-5.5); ALBUMIN/GLOBULIN RATIO 1.2 (1.0-2.2); BILIRUBIN,TOTAL 0.6 mg/dL (0.2-1.0); CALCIUM 8.5 mg/dL (8.5-10.3); CREATININE 0.9 mg/dL (0.6-1.2); TOTAL PROTEIN 7.2 g/dL (6.7-8.2)
--- NOTE | 2019-02-12 20:28 | XRAY Report ---
Reason: Chest Pain Procedure Date: 02/12/2019 Accession Number: [id number] / [id number] Procedure: XR - Chest 1 View X-Ray CPT Code: 51183 Final Report FULL RESULT: EXAM: CHEST RADIOGRAPHY EXAM DATE: 02/12/2019 07:36 PM. CLINICAL HISTORY: Chest Pain. COMPARISON: CHEST 1 VIEW 11/13/2017 9:26 AM. TECHNIQUE: 1 view. FINDINGS: Lungs/Pleura: Mildly elevated right hemidiaphragm with patchy right basilar opacities. No effusions or pneumothorax. Mediastinum: Stable cardiomediastinal silhouette. Atheromatous disease is noted in the thoracic aorta. EKG leads overlie the chest. Other: None. IMPRESSION: 1. Atelectatic changes. 2. No acute pulmonary process. RADIA
[2019-02-12] MEDS ORDERED: ALBUTEROL NEB 2.5 MG/3 ML INH STA (22:01)
[2019-02-12 23:16] VITALS: BP 138/86
== END 2019-02-12 22:40 | disposition home or self-care (01) ==
LOC: EDUNIT# → ED 19:15
DX: J43.9 Emphysema, unspecified (principal); I10 Essential (primary) hypertension; F17.200 Nicotine dependence, unspecified, uncomplicated
CPT/HCPCS: 36415; 71045; 80053; 83690; 84484; 85025; 93005; 94640; 99284

== ENCOUNTER 2019-02-21 09:08 | Emergency (ER) | payer MEDICAID ==
[2019-02-21 09:18] VITALS: BP 143/87
[2019-02-21] MEDS ORDERED: CLINDAMYCIN 150 MG CAPSULE PO STA (10:06)
--- NOTE | 2019-02-21 10:12 | ED Physician Documentation ---
History of Present Illness - Stated complaint Stated Complaint: SORES ALL OVER - Chief complaint Chief Complaint: Wound - History obtained from History obtained from: Patient - History of Present Illness Timing: How many weeks ago (1) Pain level max: 0 Pain level now: 0 - Additonal information Additional information: 58-year-old male presents the emergency department stating that he has sores all over his body. This been ongoing for the past week or so. No fevers. No vomiting. Has a history of MRSA. Nothing makes it better or worse. 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 : Benign prostate hypertrophy, Nocturia, Frequency HEENT: Chronic vision loss, Chronic sinusitis Psych: Depression, Anxiety, Other Musculoskeletal: Chronic back pain Derm: None - Past Surgical History Past Surgical History: Yes HEENT: Tonsil/Adenoidectomy - Present Medications Home Medications: Ambulatory Orders Medication Instructions Recorded Confirmed Citalopram [CeleXA] 40 mg ORAL DAILY #30 tablet 04/28/17 02/12/19 Metoprolol Succinate [Toprol Xl] 25 mg PO DAILY #30 tablet 04/28/17 02/12/19 Spironolactone [Aldactone] 50 mg PO DAILY #30 tablet 04/28/17 02/12/19 Pantoprazole [Protonix] 40 mg PO QDAC #10 tablet 11/26/17 02/12/19 Haloperidol Oral Soln [Haldol Oral 1 mg PO DAILY PM 03/20/18 02/12/19 Soln] Hyoscyamine Sulfate 0.25 mg PO Q4H 03/20/18 03/20/18 Albuterol Sulf [Ventolin Hfa 1 - 2 puffs INH Q4HR PRN #1 inhaler 02/12/19 Inhaler] Torsemide 20 mg PO DAILY 02/12/19 02/12/19 hydrOXYzine HCL [Hydroxyzine HCl] 50 mg PO QPM 02/12/19 02/12/19 predniSONE [Deltasone] 10 mg PO [id number] #42 tab 02/12/19 Clindamycin HCl [Clindamycin 300MG 300 mg PO Q6H #40 capsule 02/21/19 CAP] - Allergies Allergies/Adverse Reactions: Allergies Allergy/AdvReac Type Severity Reaction Status Date / Time No Known Drug Allergies Allergy Verified 02/21/19 09:18 - Social History Does the pt smoke?: Yes Smoking Status: Current every day smoker Does the pt drink ETOH?: Yes Does the pt have substance abuse?: Yes - Immunizations Immunizations are current?: Yes - POLST Patient has POLST: Yes POLST Status: DNR PD ED PE NORMAL - Vitals Vital signs reviewed: Yes - General General: Alert and oriented X 3, No acute distress - HEENT HEENT: Moist mucous membranes - Neck Neck: Supple, no meningeal sign - Cardiac Cardiac: RRR - Respiratory Respiratory: No respiratory distress, Clear bilaterally - Derm Derm: Warm and dry, Other (Small areas of open sores on the left upper back and bilateral thighs. No drainable abscesses.) - Neuro Neuro: Alert and oriented X 3 Results - Vitals Vitals: Vital Signs - 24 hr 02/21/19 09:16 Temperature 36.7 C Heart Rate 57 L Respiratory 20 Rate Blood Pressure 143/87 H O2 Saturation 95 Oxygen O2 Source Room air PD MEDICAL DECISION MAKING - ED course Complexity details: considered differential, d/w patient ED course: Patient appears to have a staph infection of the skin in multiple areas. We will place on antibiotics for home. No drainable abscesses. No fevers. No evidence of sepsis. Patient counseled regarding signs and symptoms for which I believe and urgent re-evaluation would be necessary. Patient with good understanding of and agreement to plan and is comfortable going home at this time This document was made in part using voice recognition software. While efforts are made to proofread this document, sound alike and grammatical errors may occur. Departure - Departure Disposition: 01 Home, Self Care Clinical Impression: Cellulitis Qualifiers: Site of cellulitis: unspecified site Qualified Code(s): L03.90 - Cellulitis, unspecified Condition: Good Instructions: ED Infec Skin Cellulitis Follow-Up: Ranulfo Mccormick PA-C [Primary Care Provider] - Within 1 week Prescriptions: Clindamycin HCl [Clindamycin 300MG CAP] 300 mg PO Q6H #40 capsule Comments: Take all antibiotics until gone. Return if you worsen. Follow-up with your doctor for repeat evaluation within the next week.
== END 2019-02-21 10:33 | disposition home or self-care (01) ==
LOC: ED 09:08
DX: L03.312 Cellulitis of back [any part except buttock and flank] (principal); L03.116 Cellulitis of left lower limb; L03.115 Cellulitis of right lower limb; Z86.14 Personal history of Methicillin resistant Staphylococcus aureus infection; I10 Essential (primary) hypertension; J43.9 Emphysema, unspecified; F17.200 Nicotine dependence, unspecified, uncomplicated; Z66 Do not resuscitate
CPT/HCPCS: 99283; 99284; A9270

== ENCOUNTER 2019-03-29 09:22 | Outpatient (CLI) | payer MEDICAID ==
[2019-03-29 11:54] LABS: BASOPHILS # (AUTO) 0.1 10^3/uL (0.0-0.1); BASOPHILS % (AUTO) 0.6 %; EOSINOPHILS # (AUTO) 0.3 10^3/uL (0.0-0.7); EOSINOPHILS % (AUTO) 3.9 %; HGB - HEMOGLOBIN 13.2 g/dL (14.0-18.0); LYMPHOCYTES # (AUTO) 0.9 10^3/uL (1.5-3.5); LYMPHOCYTES % (AUTO) 11.6 %; MEAN CORPUSCULAR HGB CONC 33.2 g/dL (32.0-36.0); MEAN CORPUSCULAR VOLUME 102.3 fL (80.0-94.0); MEAN PLATELET VOLUME 10.2 fL (7.4-11.4); MONOCYTES # (AUTO) 1.1 10^3/uL (0.0-1.0); MONOCYTES % (AUTO) 13.9 %; NEUTROPHILS # (AUTO) 5.4 10^3/uL (1.5-6.6); NEUTROPHILS % (AUTO) 69.5 %; PLT - PLATELET COUNT 225 10^3/uL (130-450); RED BLOOD COUNT 3.88 10^6/uL (4.70-6.10); RED CELL DISTRIBUTION WIDTH 13.8 % (12.0-15.0); WHITE BLOOD COUNT 7.8 x10^3/uL (4.8-10.8)
[2019-03-29 12:07] LABS: ALBUMIN 4.1 g/dL (3.2-5.5); ALBUMIN/GLOBULIN RATIO 1.2 (1.0-2.2); CALCIUM 8.5 mg/dL (8.5-10.3); CREATININE 0.9 mg/dL (0.6-1.2); TOTAL PROTEIN 7.4 g/dL (6.7-8.2)
== END 2019-03-29 23:59 | disposition home or self-care (01) ==
LOC: LAB.N 09:22
PROVIDERS: ATTEND Physician Assistant Medical
DX: F10.10 Alcohol abuse, uncomplicated (principal)
CPT/HCPCS: 36415; 80053; 85025

== ENCOUNTER 2019-03-31 09:58 | Outpatient (CLI) | payer MEDICAID ==
--- NOTE | 2019-04-01 01:06 | XRAY Report ---
Reason: PAIN IN RIGHT HAND Procedure Date: 03/31/2019 Accession Number: [id number] / [id number] Procedure: XR - Hand 3 View RT CPT Code: Final Report FULL RESULT: EXAM: RIGHT HAND RADIOGRAPHY EXAM DATE: 03/31/2019 10:16 AM. CLINICAL HISTORY: PAIN IN RIGHT HAND. COMPARISON: WRIST 3 VIEW LT 11/23/2017 11:41 AM. TECHNIQUE: 3 views. FINDINGS: Bones: Angulated, intra-articular fracture of the base of the proximal phalanx of the fifth finger. 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 Soft Tissues: Soft tissue swelling. IMPRESSION: Angulated intra-articular fracture of the base of the proximal phalanx of the fifth finger. RADIA
== END 2019-03-31 09:59 | disposition home or self-care (01) ==
LOC: DI 09:58
PROVIDERS: ATTEND Physician Assistant Medical
DX: S62.616A Displaced fracture of proximal phalanx of right little finger, initial encounter for closed fracture (principal)

== ENCOUNTER 2019-04-22 08:50 | Outpatient (CLI) | payer MEDICAID ==
[2019-04-22 12:45] LABS: CALCIUM 8.5 mg/dL (8.5-10.3); CREATININE 0.8 mg/dL (0.6-1.2)
== END 2019-04-22 23:59 | disposition home or self-care (01) ==
LOC: LAB.N 08:50
PROVIDERS: ATTEND Physician Assistant Medical
DX: E87.6 Hypokalemia (principal)
CPT/HCPCS: 36415; 80048

== ENCOUNTER 2019-05-14 18:50 | Outpatient (CLI) | payer MEDICAID | END 2019-05-14 18:51 | disposition critical access hospital (66) | LOC: EMS 18:50 | PROVIDERS: ATTEND Surgery | DX: R05 Cough (principal); R50.9 Fever, unspecified; R06.02 Shortness of breath; R07.9 Chest pain, unspecified; Z59.0 Homelessness | CPT/HCPCS: A0425; A0427; A0999 ==

== ENCOUNTER 2019-05-14 19:06 | Inpatient (IN) | payer MEDICAID ==
[2019-05-14] MEDS ORDERED: ACETAMINOPHEN 325 MG TABLET PO STA (19:16)
--- NOTE | 2019-05-14 19:18 | ED Physician Documentation ---
PD HPI CHEST PAIN - Stated complaint Stated Complaint: SOA, FEVER - History obtained from History obtained from: Patient, EMS - History of Present Illness Timing - onset: Other (59-year-old gentleman with history of alcoholic cirrhosis, CHF, and I think COPD presents with 3 days of a productive cough and today has fever and some shortness of breath and some high right-sided chest pain. Temp was 101 for the paramedics. Sat was 94% on room air. He comes from a homeless nursing home. 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 : Benign prostate hypertrophy, Nocturia, Frequency HEENT: Chronic vision loss, Chronic sinusitis Psych: Depression, Anxiety, Other Musculoskeletal: Chronic back pain Derm: None - Past Surgical History Past Surgical History: Yes HEENT: Tonsil/Adenoidectomy - Present Medications Home Medications: Ambulatory Orders Medication Instructions Recorded Confirmed Citalopram [CeleXA] 40 mg ORAL DAILY #30 tablet 04/28/17 02/12/19 Metoprolol Succinate [Toprol Xl] 25 mg PO DAILY #30 tablet 04/28/17 02/12/19 Spironolactone [Aldactone] 50 mg PO DAILY #30 tablet 04/28/17 02/12/19 Pantoprazole [Protonix] 40 mg PO QDAC #10 tablet 11/26/17 02/12/19 Haloperidol Oral Soln [Haldol Oral 1 mg PO DAILY PM 03/20/18 02/12/19 Soln] Hyoscyamine Sulfate 0.25 mg PO Q4H 03/20/18 03/20/18 Albuterol Sulf [Ventolin Hfa 1 - 2 puffs INH Q4HR PRN #1 inhaler 02/12/19 Inhaler] Torsemide 20 mg PO DAILY 02/12/19 02/12/19 hydrOXYzine HCL [Hydroxyzine HCl] 50 mg PO QPM 02/12/19 02/12/19 predniSONE [Deltasone] 10 mg PO [id number] #42 tab 02/12/19 Clindamycin HCl [Clindamycin 300MG 300 mg PO Q6H #40 capsule 02/21/19 CAP] - Allergies Allergies/Adverse Reactions: Allergies Allergy/AdvReac Type Severity Reaction Status Date / Time No Known Drug Allergies Allergy Verified 02/21/19 09:18 - Social History Does the pt smoke?: Yes Smoking Status: Current every day smoker Does the pt drink ETOH?: Yes Does the pt have substance abuse?: Yes - Immunizations Immunizations are current?: Yes - POLST Patient has POLST: Yes POLST Status: DNR PD ED PE NORMAL - Vitals Vital signs reviewed: Yes - General General: Alert and oriented X 3, No acute distress - HEENT HEENT: PERRL, Pharynx benign - Neck Neck: Supple, no meningeal sign, No bony TTP - Cardiac Cardiac: No murmur, Other (Modest tachycardia) - Respiratory Respiratory: No respiratory distress, Clear bilaterally - Abdomen Abdomen: Normal bowel sounds, Soft, Non tender - Derm Derm: Normal color, Warm and dry, No rash - Extremities Extremities: No edema, No calf tenderness / cord - Neuro Neuro: Alert and oriented X 3, Normal speech, Other (No clinical evidence of intoxication) Results - Vitals Vitals: Vital Signs - 24 hr 05/14/19 05/14/19 19:25 20:47 Temperature 37.7 C H 36.6 C Heart Rate 107 H 109 H Respiratory 22 20 Rate Blood Pressure 107/83 H 110/75 O2 Saturation 94 95 Oxygen O2 Source Room air - Labs Labs: Laboratory Tests 05/14/19 05/14/19 05/14/19 19:30 19:30 19:30 WBC 17.8 H RBC 3.83 L Hgb 13.4 L Hct 38.5 L MCV 100.5 H MCH 35.0 H MCHC 34.8 RDW 13.5 Plt Count 227 MPV 10.6 Neut # (Auto) Not Reportable Lymph # (Auto) Not Reportable [place] # (Auto) Not Reportable Eos # (Auto) Not Reportable Baso # (Auto) Not Reportable Absolute Nucleated RBC Not Reportable Total Counted 100 Band Neuts % (Manual) 3 Abnorm Lymph % (Manual) 0 Nucleated RBC % Not Reportable Neutrophils # (Manual) 16.7 H Lymphocytes # (Manual) 0.4 L Monocytes # (Manual) 0.7 Eosinophils # (Manual) 0.0 Basophils # (Manual) 0.0 Differential Comment MANUAL DIFFERENTIAL Manual Slide Review Indicated WBC Morphology NORMAL APPEARANCE Platelet Estimate NORMAL (130-450,000) Platelet Morphology NORMAL APPEARANCE RBC Morph Micro Appear 1+ MACROCYTOSIS Sodium 132 L Potassium 3.7 Chloride 98 L Carbon Dioxide 21 Anion Gap 13.0 BUN 15 Creatinine 0.7 Estimated GFR (MDRD) 116 Glucose 83 Lactic Acid 2.3 H Calcium 8.2 L Total Bilirubin 1.4 H AST 21 ALT 16 Alkaline Phosphatase 61 Total Protein 7.0 Albumin 3.3 Globulin 3.7 Albumin/Globulin Ratio 0.9 L Lipase 23 PD MEDICAL DECISION MAKING - ED course ED course: 59-year-old gentleman presents from homeless nursing home. His comorbidities include CHF COPD and alcoholic cirrhosis. He does have an atypical pneumonia but also significant leukocytosis with lymphopenia. He was administered Rocephin and Zithromax after blood cultures. Coronavirus testing is pending. His pneumonia severity index score is [address] Samsonsef will observe him. Departure - Departure Disposition: ED Place in Observation Clinical Impression: Pneumonia Qualifiers: Pneumonia type: due to unspecified organism Laterality: bilateral Lung location: unspecified part of lung Qualified Code(s): J18.9 - Pneumonia, unspecified organism Condition: Serious Discharge Date/Time: 05/14/19 22:10
[2019-05-14 19:44] LABS: BASOPHILS % (AUTO) 0.2 %; HGB - HEMOGLOBIN 13.4 g/dL (14.0-18.0); MEAN CORPUSCULAR HGB CONC 34.8 g/dL (32.0-36.0); MEAN CORPUSCULAR VOLUME 100.5 fL (80.0-94.0); MEAN PLATELET VOLUME 10.6 fL (7.4-11.4); MONOCYTES % (AUTO) 6.4 %; NEUTROPHILS % (AUTO) 89.3 %; PLT - PLATELET COUNT 227 10^3/uL (130-450); RED BLOOD COUNT 3.83 10^6/uL (4.70-6.10); RED CELL DISTRIBUTION WIDTH 13.5 % (12.0-15.0); WHITE BLOOD COUNT 17.8 x10^3/uL (4.8-10.8)
[2019-05-14 19:48] LABS: ABNORMAL LYMPHS % (MANUAL) 0 %
[2019-05-14 19:54] LABS: ALBUMIN 3.3 g/dL (3.2-5.5); ALBUMIN/GLOBULIN RATIO 0.9 (1.0-2.2); BILIRUBIN,TOTAL 1.4 mg/dL (0.2-1.0); CALCIUM 8.2 mg/dL (8.5-10.3); CREATININE 0.7 mg/dL (0.6-1.2)
[2019-05-14 20:04] LABS: BAND NEUTROPHILS % (MANUAL) 3 %; DIFFERENTIAL COMMENT MANUAL DIFFERENTIAL; LYMPHOCYTES # (MANUAL) 0.4 10^3/uL (1.5-3.5); LYMPHOCYTES % (MANUAL) 2 %; MONOCYTES # (MANUAL) 0.7 10^3/uL (0.0-1.0); PLATELET ESTIMATE, MANUAL NORMAL (130-450,000) (NORMAL); PLATELET MORPHOLOGY NORMAL APPEARANCE (NORMAL); RBC MORPHOLOGY (MULTIPLE) 1+ MACROCYTOSIS (NORMAL)
--- NOTE | 2019-05-14 20:41 | XRAY Report ---
Reason: cough fever Procedure Date: 05/14/2019 Accession Number: [id number] / [id number] Procedure: XR - Chest 1 View X-Ray CPT Code: 83520 Final Report FULL RESULT: EXAM: CHEST RADIOGRAPHY EXAM DATE: 05/14/2019 08:05 PM. CLINICAL HISTORY: Cough and fever. COMPARISON: CHEST 1 VIEW 02/12/2019 7:20 PM. TECHNIQUE: 1 view. FINDINGS: Lungs/Pleura: Mildly prominent interstitial opacities in the mid and lower lung cuello bilaterally. No lobar consolidation. No pleural effusions or pneumothorax. Mediastinum: Heart size within normal limits. No pulmonary vascular congestion. Osseous structures: No significant focal osseous lesions. IMPRESSION: 1. Mildly prominent interstitial opacities in the mid and lower lung cuello bilaterally concerning for atypical infection. 2. No other acute cardiopulmonary process identified radiographically. RADIA
[2019-05-14] MEDS ORDERED: AZITHROMYCIN INJ 500 MG in SODIUM CHLORIDE 0.9% 250 ML IV STA (20:43)
[2019-05-14] MEDS ORDERED: cefTRIAXone 2 GM in SODIUM CHLORIDE 0.9% MINIBAG 100 ML IV STA (20:43)
--- NOTE | 2019-05-14 21:07 | HISTORY & PHYSICAL EXAMINATION ---
Chief Complaint - Chief Complaint Chief Complaint: Shortness of breath and fever History of Present Illness - Admitted From Admitted From:: [facility] - History Obtained From Records Reviewed: Yes History obtained from: Patient, ER Physician, EMR - History of Present Illness HPI Comment/Other: This is a 59-year-old gentleman with a past medical history significant for chronic systolic heart failure with an ejection fraction less than 20%, COPD not on home oxygen, paroxysmal atrial fibrillation, history of alcoholism and possible liver disease who presents today from a homeless senior care complaining of worsening shortness of breath, cough, and fever for the past week to week and a half. He states his symptoms have progressed. He has had chills, malaise, myalgias and a productive cough. He also reported pleuritic chest pain that is most prominent when he coughs and takes deep breaths. Is located on the right side of his chest. The pain is sharp in nature. He reports no nausea, vomiting, abdominal pain. He denies hematuria, dysuria, urgency. He reports numbness in his lower extremities which is chronic. He denies any headache or blurry vision. He did not have a flu vaccine this year. He reports that people at the homeless senior care have been coughing and there have been cases of bronchitis over the past few weeks otherwise he reports no sick contacts. He denies any history of IV drug use. He no longer drinks alcohol. With regards to his cardiac history, he states he is compliant with his home medications. He does not have a defibrillator in place. He states he no longer follows up with a lens inserter. He states the plan in the past was to cardiovert him but they cannot get his blood thin enough. Upon EMS arrival, he had a temperature of 101 F. He did receive 500 cc normal saline in route to the emergency department. In the emerge department, he had a temperature of 37.7 C. He was tachycardic with a heart rate in the 100s. Pressure was 107/83. He was tachypneic in the low 20s but saturating mid 90s on room air. Labs are significant for a white count of 17.8 with a left shift and 3% bands. Sodium was decreased at 132. Lactic acid was slightly elevated at 2.3. Influenza was negative. He was screened for novel coronavirus. Chest x-ray showed mild bilateral mid and lower lung opacities concerning for atypical infection. Given his pneumonia severity index score of 88 and the concern for sepsis possibly worsening decline his respiratory status given his heart failure, Medicine was consulted for observation. I did discuss goals of care with the patient and he would like to be a DNR. He would not want to be intubated if his respiratory status were to decline. History - Past Medical History Cardiovascular: reports: Congestive heart failure, Hypertension, High cholesterol, Coronary artery disease, Peripheral Vascular Disease, ID, Atrial fibrillation, Murmur, Arrhythmia, Valve disorder Respiratory: reports: COPD, Emphysema Neuro: reports: Head injury, Headaches, Peripheral neuropathy Endocrine/Autoimmune: reports: None GI: reports: GERD OFFICE AIDE: reports: None : reports: Benign prostate hypertrophy, Nocturia, Frequency HEENT: reports: Chronic vision loss, Chronic sinusitis Psych: reports: Depression, Anxiety Musculoskeletal: reports: Chronic back pain Derm: reports: None MRSA Hx?: No - Past Surgical History HEENT: reports: Tonsil/Adenoidectomy - Family & Social History Family History Comment/Other: Patient is adopted and so he does not know his family history. 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 He is now living at a homeless senior care. States his alcohol consumption is decreased he now drinks a couple of beers 2-3 times a week compared to heavy alcohol use is on a daily basis in the past. He denies any drug use. He continues to smoke a pack per day and has been smoking for 30 years. - Substance History Use: Uses substance without health or social issues: Tobacco, Alcohol - POLST Patient has POLST: Yes POLST Status: DNR Meds/Allgy - Home Medications Home Medications: Ambulatory Orders Medication Instructions Recorded Confirmed Citalopram [CeleXA] 40 mg ORAL DAILY #30 tablet 04/28/17 02/12/19 Metoprolol Succinate [Toprol Xl] 25 mg PO DAILY #30 tablet 04/28/17 02/12/19 Spironolactone [Aldactone] 50 mg PO DAILY #30 tablet 04/28/17 02/12/19 Pantoprazole [Protonix] 40 mg PO QDAC #10 tablet 11/26/17 02/12/19 Haloperidol Oral Soln [Haldol Oral 1 mg PO DAILY PM 02/09/19 01/04/20 Soln] Hyoscyamine Sulfate 0.25 mg PO Q4H 03/20/18 03/20/18 Albuterol Sulf [Ventolin Hfa 1 - 2 puffs INH Q4HR PRN #1 inhaler 02/12/19 Inhaler] Torsemide 20 mg PO DAILY 02/12/19 02/12/19 hydrOXYzine HCL [Hydroxyzine HCl] 50 mg PO QPM 02/12/19 02/12/19 predniSONE [Deltasone] 10 mg PO [id number] #42 tab 02/12/19 Clindamycin HCl [Clindamycin 300MG 300 mg PO Q6H #40 capsule 02/21/19 CAP] - Allergies Allergies/Adverse Reactions: Allergies Allergy/AdvReac Type Severity Reaction Status Date / Time No Known Drug Allergies Allergy Verified 02/21/19 09:18 Review of Systems - Constitutional Constitutional: reports: Fatigue, Fever, Weakness - Eyes Eyes: denies: Blurred vision - Cardiovascular Cariovascular: reports: Chest pain, Exertional dyspnea, Decr. exercise tolerance. denies: Edema - Respiratory Respiratory: reports: Cough, Sputum production, SOB at rest, SOB with exertion - Gastrointestinal Gastrointestinal: denies: Abdominal pain, Nausea, Vomiting - Genitourinary Genitourinary: denies: Dysuria, Frequency, Urgency - Musculoskeletal Musculoskeletal: reports: Muscle aches. denies: Muscle weakness - Integumentary Integumentary: denies: Rash - Neurological Neurological: reports: General weakness, Numbness. denies: Focal weakness, Headache - All Other Systems All Other Systems: reports: Reviewed and negative Prior Level of Functionality: He is independent with his ADLs. Exam - Vital Signs Reviewed Vital Signs: Yes Vital Signs: Vital Signs x48h Temp Pulse Resp BP Pulse Ox 05/14/19 20:47 36.6 C 109 H 20 110/75 95 05/14/19 19:25 37.7 C H 107 H 22 107/83 H 94 - Physical Exam General Appearance: positive: No acute distress, Alert Eyes Bilateral: positive: Normal inspection, Conjunctivae nml ENT: positive: ENT inspection nml Neck: positive: Nml inspection Respiratory: positive: No respiratory distress, Other (Diminished breath sounds bilaterally). negative: Wheezes, Rales Cardiovascular: positive: Regular rate & rhythm. negative: Tachycardia, B radycardia, Systolic murmur Abdomen: positive: Non-tender, No distention. negative: Tenderness, Guarding, Rebound Skin: positive: No rash, Warm, Dry Extremities: positive: Full ROM, No pedal edema Neurologic/Psychiatric: positive: Oriented x3, Motor nml. negative: Disoriented to person, Disoriented to place, Disoriented to time Sepsis Event Note (H) - Evaluation Current Stage of Sepsis: Sepsis Possible source of Sepsis: positive: Pulmonary - Sepsis Criteria Sepsis Criteria: Recorded Temperature greater than 38.3C or Less than 36C, Recorded Heart Rate greater than 90 bpm, Recorded Respiratory Rate greater than 20, WBC count greater than 12,000 or less than 4000, Metabolic: lactate > 2 mmol/L Conclusion/Plan - Problem List (1) Sepsis Conclusion/Plan: This appears secondary to community-acquired pneumonia. He has a fever with elevated white count and a left shift. Also has slightly elevated bands and lactic acid of 2.3. Wound to be ruled out for novel coronavirus. Influenza is negative. Will place him on IV antibiotics for community-acquired pneumonia. Follow-up blood cultures. Trend white count. Recheck lactic acid. We will gently hydrate him given his history of heart failure. (2) Community acquired pneumonia Conclusion/Plan: He has bilateral opacities on chest x-ray in the mid and lower lungs concerning for atypical infection and suspected pneumonia. This appears to be a cause of his sepsis. We will place him on doxycycline and ceftriaxone IV while he is hospitalized. His pneumonia severity index is 88. Fortunately is not hypoxic but he is slightly tachypneic. We will monitor him overnight. Rule out novel coronavirus. Obtain lower respiratory cultures. (3) Chronic HFrEF (heart failure with reduced ejection fraction) Conclusion/Plan: Last echocardiogram revealed ejection fraction of 20%. He has significant valvular disease as well as and right heart failure. He is on appropriate medical therapy present have an ICD in place. He states he no longer follows with a lens inserter. We will resume his Toprol but hold Aldactone and Torsemide as we will gently hydrate him given the sepsis. Monitor on telemetry. (4) Paroxysmal atrial fibrillation Conclusion/Plan: She tachycardic but is now rate controlled. We will resume his home Toprol. Monitor on telemetry. He is on anticoagulation for unclear reasons. (5) Homelessness Conclusion/Plan: Is currently homeless and is staying at a senior care. If he is positive for novel coronavirus, this may make his disposition difficult. - Lab Results Lab results reviewed: Yes Fish Bones: 05/14/19 19:30 05/14/19 19:30 - Diagnostic Imaging Results Diagnostic Imaging Results: positive: Final report reviewed Core Measures - Anticipated LOS I expect patient to be DC'd or transferred within 96 hours.: Yes - Issues Hospital Issues and Management Plan: 59-year-old male admitted for sepsis secondary to pneumonia. We will rule him out for novel coronavirus. He is not hypoxic and slightly tachypneic. Will place in observation for IV antibiotics given his pneumonia severity index score and his comorbidities. - DVT/VTE - Prophylaxis VTE/DVT Device ordered at admit?: Yes VTE/DVT Prophylaxis med ordered at admit?: Yes
[2019-05-14] MEDS ORDERED: LACTATED RINGERS 1,000 ML IV SCH (23:45)
[2019-05-15] MEDS: SODIUM CHLORIDE FLUSH 0.9% 10 ML SYRINGE IVP SCH ×3 (01:26→16:08)
[2019-05-15 06:18] LABS: BASOPHILS # (AUTO) 0.1 10^3/uL (0.0-0.1); BASOPHILS % (AUTO) 0.3 %; HGB - HEMOGLOBIN 14.1 g/dL (14.0-18.0); LYMPHOCYTES # (AUTO) 0.5 10^3/uL (1.5-3.5); LYMPHOCYTES % (AUTO) 2.7 %; MEAN CORPUSCULAR HEMOGLOBIN 33.6 pg (27.0-31.0); MEAN CORPUSCULAR HGB CONC 33.7 g/dL (32.0-36.0); MEAN CORPUSCULAR VOLUME 99.5 fL (80.0-94.0); MONOCYTES # (AUTO) 1.4 10^3/uL (0.0-1.0); NEUTROPHILS # (AUTO) 17.6 10^3/uL (1.5-6.6); NEUTROPHILS % (AUTO) 86.8 %; PLT - PLATELET COUNT 244 10^3/uL (130-450); RED CELL DISTRIBUTION WIDTH 13.4 % (12.0-15.0); WHITE BLOOD COUNT 20.3 x10^3/uL (4.8-10.8)
[2019-05-15 06:31] LABS: CALCIUM 8.1 mg/dL (8.5-10.3); CREATININE 0.7 mg/dL (0.6-1.2); MAGNESIUM 1.6 mg/dL (1.7-2.8); PHOSPHORUS 2.9 mg/dL (2.5-4.6)
[2019-05-15] MEDS: PANTOPRAZOLE 40 MG TABLET PO SCH (07:03)
--- NOTE | 2019-05-15 07:15 | PHARMACY PROGRESS NOTE ---
- Best Possible Medication History Admit Date and Time: 05/14/192051 Processed by: Pharmacy Medication History completed: Yes Secondary Source(s): Physician records, Pharmacy records, Insurance records As the person ultimately responsible for medication therapy, providers are able to order a medication from an existing home medication list in [facility] via the "Reconcile Routine" prior to Confirmation of that medication by sales support rep. Such practice is discouraged except when the physician, in their clinical judgment, deems that a medical need exists for a medication without regard to previous use.
[2019-05-15] MEDS ORDERED: LACTATED RINGERS 1,000 ML IV SCH (07:54)
[2019-05-15] MEDS ORDERED: MAGNESIUM OXIDE 400 MG TABLET PO ONE (08:00)
[2019-05-15] MEDS: polyethylene glycoL 3350 17 GM PACKET PO SCH (08:21)
[2019-05-15] MEDS: METOPROLOL SUCCINATE 25 MG TABLET PO SCH (08:21)
[2019-05-15] MEDS: CITALOPRAM HYDROBROMIDE 20 MG TABLET PO SCH (08:22)
[2019-05-15] MEDS: ENOXAPARIN 40 MG/0.4 ML SYRINGE SUBQ SCH (08:23)
[2019-05-15] MEDS ORDERED: cefTRIAXone 1 GM in SODIUM CHLORIDE 0.9% MINIBAG 100 ML IV SCH (09:00)
[2019-05-15] MEDS: DOXYCYCLINE INJ 100 MG in SODIUM CHLORIDE 0.9% MINIBAG 100 ML IV SCH ×2 (10:00→21:13)
[2019-05-15] MEDS: cefTRIAXone 2 GM in SODIUM CHLORIDE 0.9% MINIBAG 100 ML IV SCH (12:16)
[2019-05-15] MEDS: SODIUM CHLORIDE FLUSH 0.9% 10 ML SYRINGE IVP PRN (13:10)
[2019-05-15] MEDS: MORPHINE 2 MG/ML CARPUJECT IVP PRN ×2 (16:06→21:11)
[2019-05-15] MEDS ORDERED: ONDANSETRON 4 MG/2 ML VIAL IVP PRN (16:07)
[2019-05-15] MEDS ORDERED: LORazepam 2 MG/ML VIAL IVP PRN (16:10)
--- NOTE | 2019-05-15 16:13 | PROVIDER PROGRESS NOTE ---
Assessment/Plan - Problem List (1) Sepsis Assessment/Plan: 4/5 pt's WBC is running up to 20 from 18 on yesterday. pt has 94% sats on room air now. today he is no fever. blood culture is pending. COVID 19 test is pending. Lactic acid is normal now. continue Doxycycline and Rocephin continue supplement of O2 as needed. continue gently IVF due to pt's severe systolic heart failure (2) Community acquired pneumonia Conclusion/Plan: 4/5 pt's CXR reveals bilateral opacities on chest x-ray in the mid and lower lungs concerning for atypical infection and suspected pneumonia. continue doxycycline and ceftriaxone IV while he is hospitalized. Rule out novel coronavirus. (3) Chronic HFrEF (heart failure with reduced ejection fraction) Conclusion/Plan: 4/5 pt's Last echocardiogram revealed ejection fraction less than 20% and He has significant valvular disease as well as and right heart failure. He is on appropriate medical therapy present have an ICD in place. continue Toprol but hold Aldactone given the sepsis. Monitor on telemetry. (4) Paroxysmal atrial fibrillation Conclusion/Plan: 4/5 HR rate controlled at 100-110. continue Toprol. Monitor on telemetry. (5) Homelessness 4/5 consult with social sciences department chair for safely d/c plan, and support (6)hx of alcohol abuse 4/5 pt hs hx of alcohol. add CIWA, and and Vitamin B1 - Current Meds Current Meds: Current Medications Generic Name Dose Route Start Last Admin Trade Name Freq PRN Reason Stop Dose Admin Citalopram Hydrobromide 40 mg 05/15/19 09:00 05/15/19 08:22 Celexa PO 40 mg DAILY YONATHAN Administration Enoxaparin Sodium 40 mg 05/15/19 09:00 05/15/19 08:23 Lovenox SUBQ 40 mg DAILY YONATHAN Administration Doxycycline Hyclate 100 mg/ 100 mls @ 100 mls/hr 05/15/19 09:00 05/15/19 13:11 Sodium Chloride IV Infused BID YONATHAN Infusion Ceftriaxone Sodium 2 gm/ 100 mls @ 200 mls/hr 05/15/19 10:00 05/15/19 13:09 Sodium Chloride IV 05/18/19 10:29 Infused Q24H YONATHAN Infusion Lactated Ringer's 1,000 mls @ 75 mls/hr 05/15/19 07:54 05/15/19 15:42 Lr IV 05/15/19 21:13 75 mls/hr .[id number] YONATHAN Infusion Metoprolol Succinate 25 mg 05/15/19 09:00 05/15/19 08:21 Toprol Xl PO 25 mg DAILY YONATHAN Administration Morphine Sulfate 0.5 mg 05/15/19 07:26 05/15/19 16:06 Morphine (Carpuject) IVP 0.5 mg Q2HR PRN Administration PAIN Pantoprazole Sodium 40 mg 05/15/19 07:00 05/15/19 07:03 Protonix PO 40 mg QDAC YONATHAN Administration Polyethylene Glycol 17 gm 05/15/19 09:00 05/15/19 08:21 Miralax PO 17 gm DAILY YONATHAN Administration Sodium Chloride 10 ml 05/14/19 20:52 05/15/19 13:10 Normal Saline Flush 0.9% IVP 10 ml PRN PRN Administration NEEDED PER PROVIDER ORDERS Sodium Chloride 10 ml 05/15/19 01:00 05/15/19 16:08 Normal Saline Flush 0.9% IVP 10 ml 0100,0900,1700 YONATHAN Administration - Lab Result Fish Bone Diagrams: 05/15/19 05:18 05/15/19 05:18 - Additional Planning My Orders: My Active Orders 05/15/19 MUDDS [DRUG SCREEN MEDICAL (MUDS)] [URIN] Urgent 05/15/19 07:54 Lactated Ringers [Lr] 1,000 ml IV 75 mls/hr 05/15/19 10:00 cefTRIAXone [Rocephin] 2 gm Sodium Chloride 0.9% Minibag [Normal Saline 0.9% Minibag] 100 ml IV Q24H 05/15/19 16:07 Ondansetron Inj [Zofran Inj] 4 mg IVP Q4HR PRN 05/15/19 16:10 CIWA - AR Score Card [RC] Routine Routine Neuro Check [RC] Routine Routine Social Work Consult [CONS] Routine LORazepam INJ [Ativan Inj (Vial)] 0.5 mg IVP Q2H PRN 05/16/19 05:00 PT WITH INR [COAG] DAILYLAB 05/16/19 09:00 Vitamin [Trinatal Rx 1] 1 tab PO DAILY Thiamine [Vitamin B-1] 100 mg PO DAILY Subjective - Subjective Patient Reports: Feeling Better Objective Vital Signs: Vital Signs - 24 hr 05/14/19 05/14/19 05/14/19 19:25 20:47 22:03 Temperature 37.7 C H 36.6 C 36.7 C Heart Rate 107 H 109 H Heart Rate [ 55 L Brachial] Respiratory 22 20 24 Rate Blood Pressure 107/83 H 110/75 Blood Pressure 115/91 H [Right Brachial artery] O2 Saturation 94 95 99 05/15/19 05/15/19 05/15/19 01:20 01:30 05:00 Temperature 37.9 C H 37.3 C Heart Rate Heart Rate [ 124 H 119 H Brachial] Respiratory 28 H 24 24 Rate Blood Pressure Blood Pressure 159/93 H 120/68 106/71 [Right Brachial artery] O2 Saturation 94 95 95 05/15/19 05/15/19 05/15/19 08:33 13:00 16:00 Temperature 36.7 C 36.7 C 36.8 C Heart Rate Heart Rate [ 108 H 106 H 107 H Brachial] Respiratory 22 18 18 Rate Blood Pressure Blood Pressure 118/83 H 116/75 139/94 H [Right Brachial artery] O2 Saturation 95 97 94 Oxygen O2 Source Room air I&O (Last 24 Hrs): Intake and Output Totals x24h 05/13/19 05/14/19 05/15/19 23:59 23:59 23:59 Intake Total 350 1505.55 Output Total 100 Balance 350 1405.55 General: Alert, Mild distress HEENT: Atraumatic Neck: Supple Lymphatic: no adenopathy Neuro: Alert, Non Focal Cardiovascular: Regular rate, Normal S1, Normal S2 Respiratory: Chest non-tender Abdomen: Normal bowel sounds, Soft Extremities: Normal pulses - Results Results: Laboratory Results WBC 20.3 x10^3/uL (4.8-10.8) H 05/15/19 05:18 RBC 4.20 10^6/uL (4.70-6.10) L 05/15/19 05:18 Hgb 14.1 g/dL (14.0-18.0) 05/15/19 05:18 Hct 41.8 % (42.0-52.0) L 05/15/19 05:18 MCV 99.5 fL (80.0-94.0) H 05/15/19 05:18 MCH 33.6 pg (27.0-31.0) H 05/15/19 05:18 MCHC 33.7 g/dL (32.0-36.0) 05/15/19 05:18 RDW 13.4 % (12.0-15.0) 05/15/19 05:18 Plt Count 244 10^3/uL (130-450) 05/15/19 05:18 MPV 11.0 fL (7.4-11.4) 05/15/19 05:18 Neut # (Auto) 17.6 10^3/uL (1.5-6.6) H 05/15/19 05:18 Lymph # (Auto) 0.5 10^3/uL (1.5-3.5) L 05/15/19 05:18 [place] # (Auto) 1.4 10^3/uL (0.0-1.0) H 05/15/19 05:18 Eos # (Auto) 0.0 10^3/uL (0.0-0.7) 05/15/19 05:18 Baso # (Auto) 0.1 10^3/uL (0.0-0.1) 05/15/19 05:18 Absolute Nucleated RBC 0.00 x10^3/uL 05/15/19 05:18 Total Counted 100 05/14/19 19:30 Band Neuts % (Manual) 3 % (0-10) 05/14/19 19:30 Abnorm Lymph % (Manual) 0 % 05/14/19 19:30 Nucleated RBC % 0.0 /100WBC 05/15/19 05:18 Neutrophils # (Manual) 16.7 10^3/uL (1.5-6.6) H 05/14/19 19:30 Lymphocytes # (Manual) 0.4 10^3/uL (1.5-3.5) L 05/14/19 19:30 Monocytes # (Manual) 0.7 10^3/uL (0.0-1.0) 05/14/19 19:30 Eosinophils # (Manual) 0.0 10^3/uL (0-0.7) 05/14/19 19:30 Basophils # (Manual) 0.0 10^3/uL (0-0.1) 05/14/19 19:30 Differential Comment MANUAL DIFFERENTIAL 05/14/19 19:30 Manual Slide Review Indicated 05/14/19 19:30 WBC Morphology NORMAL APPEARANCE (NORMAL) 05/14/19 19:30 Platelet Estimate NORMAL (130-450,000) (NORMAL) 05/14/19 19:30 Platelet Morphology NORMAL APPEARANCE (NORMAL) 05/14/19 19:30 RBC Morph Micro Appear 1+ MACROCYTOSIS (NORMAL) 05/14/19 19:30 Sodium 134 mmol/L (135-145) L 05/15/19 05:18 Potassium 3.8 mmol/L (3.5-5.0) 05/15/19 05:18 Chloride 99 mmol/L (101-111) L 05/15/19 05:18 Carbon Dioxide 23 mmol/L (21-32) 05/15/19 05:18 Anion Gap 12.0 (6-13) 05/15/19 05:18 BUN 13 mg/dL (6-20) 05/15/19 05:18 Creatinine 0.7 mg/dL (0.6-1.2) 05/15/19 05:18 Estimated GFR (MDRD) 116 (>89) 05/15/19 05:18 Glucose 74 mg/dL (70-100) 05/15/19 05:18 Lactic Acid 2.0 mmol/L (0.5-2.2) 05/15/19 08:02 Calcium 8.1 mg/dL (8.5-10.3) L 05/15/19 05:18 Phosphorus 2.9 mg/dL (2.5-4.6) 05/15/19 05:18 Magnesium 1.6 mg/dL (1.7-2.8) L 05/15/19 05:18 Total Bilirubin 1.4 mg/dL (0.2-1.0) H 05/14/19 19:30 AST 21 IU/L (10-42) 05/14/19 19:30 ALT 16 IU/L (10-60) 05/14/19 19:30 Alkaline Phosphatase 61 IU/L (42-121) 05/14/19 19:30 Total Protein 7.0 g/dL (6.7-8.2) 05/14/19 19:30 Albumin 3.3 g/dL (3.2-5.5) 05/14/19 19:30 Globulin 3.7 g/dL (2.1-4.2) 05/14/19 19:30 Albumin/Globulin Ratio 0.9 (1.0-2.2) L 05/14/19 19:30 Lipase 23 U/L (22-51) 05/14/19 19:30 Influenza A (Rapid) Negative (Negative) 05/14/19 22:00 Influenza B (Rapid) Negative (Negative) 05/14/19 22:00 - Procedures Procedures: Procedures COLONOSCOPY (08/16/13) Sepsis Event Note (H) - Evaluation Current Stage of Sepsis: Sepsis Possible source of Sepsis: positive: Pulmonary - Sepsis Criteria Sepsis Criteria: Recorded Temperature greater than 38.3C or Less than 36C, Recorded Heart Rate greater than 90 bpm, Recorded Respiratory Rate greater than 20, WBC count greater than 12,000 or less than 4000, Metabolic: lactate > 2 mmol/L ABX Reporting Has patient been on IV antibiotics over the past 48 hours?: Yes Current Medications - Current Medications Current Medications: Active Medications Acetaminophen (Tylenol) 650 mg PO Q6HR PRN PRN Reason: Pain or Fever > 38C (100.4F) Benzonatate (Tessalon) 100 mg PO TID PRN PRN Reason: Cough Last Admin: 05/15/19 16:16 Dose: 100 mg Citalopram Hydrobromide (Celexa) 40 mg PO DAILY [facility] Last Admin: 05/15/19 08:22 Dose: 40 mg Enoxaparin Sodium (Lovenox) 40 mg SUBQ DAILY [facility] Last Admin: 05/15/19 08:23 Dose: 40 mg Doxycycline Hyclate 100 mg/ (Sodium Chloride) 100 mls @ 100 mls/hr IV BID [facility] Last Infusion: 05/15/19 13:11 Dose: Infused Ceftriaxone Sodium 2 gm/ (Sodium Chloride) 100 mls @ 200 mls/hr IV Q24H [facility] Stop: 05/18/19 10:29 Last Infusion: 05/15/19 13:09 Dose: Infused Lactated Ringer's (Lr) 1,000 mls @ 75 mls/hr IV .[id number] [facility] Stop: 05/15/19 21:13 Last Infusion: 05/15/19 15:42 Dose: 75 mls/hr Lorazepam (Ativan Inj (Vial)) 0.5 mg IVP Q2H PRN; Protocol PRN Reason: CIWA >8 Metoprolol Succinate (Toprol Xl) 25 mg PO DAILY [facility] Last Admin: 05/15/19 08:21 Dose: 25 mg Morphine Sulfate (Morphine (Carpuject)) 0.5 mg IVP Q2HR PRN PRN Reason: PAIN Last Admin: 05/15/19 16:06 Dose: 0.5 mg Non-Formulary Medication (Hydroxyzine Hcl [Hydroxyzine Hcl]) 50 mg PO QPM [facility] Ondansetron HCl (Zofran Inj) 4 mg IVP Q4HR PRN PRN Reason: Nausea / Vomiting Last Admin: 05/15/19 16:18 Dose: 4 mg Pantoprazole Sodium (Protonix) 40 mg PO QDAC [facility] Last Admin: 05/15/19 07:03 Dose: 40 mg Polyethylene Glycol (Miralax) 17 gm PO DAILY [facility] Last Admin: 05/15/19 08:21 Dose: 17 gm Multivit/Folic Acid/Iron (Trinatal Rx 1) 1 tab PO DAILY [facility] Sodium Chloride (Normal Saline Flush 0.9%) 10 ml IVP PRN PRN PRN Reason: NEEDED PER PROVIDER ORDERS Last Admin: 05/15/19 13:10 Dose: 10 ml Sodium Chloride (Normal Saline Flush 0.9%) 10 ml IVP 0100,0900,1700 [facility] Last Admin: 05/15/19 16:08 Dose: 10 ml Thiamine HCl (Vitamin B-1) 100 mg PO DAILY [facility] hydrOXYzine HCL [Hydroxyzine HCl] 50 mg PO QPM 02/12/19 Potassium Chloride 10 meq PO DAILY 05/15/19
[2019-05-15] MEDS: BENZONATATE 100 MG CAPSULE PO PRN (16:16)
[2019-05-15 16:31] LABS: MUDS CUTOFF CONCENTRATIONS CUTOFF CONC BELOW:
[2019-05-15] MEDS ORDERED: CITALOPRAM 10 MG TABLET PO SCH (16:37)
[2019-05-15 16:46] LABS: AMPHETAMINE SCREEN,URINE NEGATIVE (NEGATIVE); BENZODIAZEPINES SCREEN, URINE NEGATIVE (NEGATIVE); COCAINE SCREEN URINE NEGATIVE (NEGATIVE); METHADONE SCREEN, URINE NEGATIVE (NEGATIVE); METHAMPHETAMINES SCREEN, URINE NEGATIVE (NEGATIVE); OPIATE SCREEN, URINE NEGATIVE (NEGATIVE); OXYCODONE SCREEN, URINE NEGATIVE (NEGATIVE); PROPOXYPHENE SCREEN, URINE NEGATIVE (NEGATIVE); TRICYCLIC ANTIDEPRESSANT,URINE NEGATIVE (NEGATIVE)
[2019-05-15] MEDS: hydrOXYzine PAMOATE 25 MG CAPSULE PO SCH (21:13)
[2019-05-16] MEDS: MORPHINE 2 MG/ML CARPUJECT IVP PRN ×3 (01:42→11:35)
[2019-05-16] MEDS: BENZONATATE 100 MG CAPSULE PO PRN (01:42)
[2019-05-16] MEDS: SODIUM CHLORIDE FLUSH 0.9% 10 ML SYRINGE IVP PRN ×3 (01:45→11:35)
[2019-05-16] MEDS: SODIUM CHLORIDE FLUSH 0.9% 10 ML SYRINGE IVP SCH ×3 (01:45→16:46)
[2019-05-16 05:23] LABS: BASOPHILS % (AUTO) 0.3 %; EOSINOPHILS # (AUTO) 0.2 10^3/uL (0.0-0.7); EOSINOPHILS % (AUTO) 1.6 %; HGB - HEMOGLOBIN 12.9 g/dL (14.0-18.0); LYMPHOCYTES # (AUTO) 0.9 10^3/uL (1.5-3.5); LYMPHOCYTES % (AUTO) 8.9 %; MEAN CORPUSCULAR HEMOGLOBIN 34.8 pg (27.0-31.0); MEAN CORPUSCULAR HGB CONC 34.3 g/dL (32.0-36.0); MEAN CORPUSCULAR VOLUME 101.3 fL (80.0-94.0); MEAN PLATELET VOLUME 10.6 fL (7.4-11.4); MONOCYTES % (AUTO) 9.9 %; NEUTROPHILS # (AUTO) 8.3 10^3/uL (1.5-6.6); NEUTROPHILS % (AUTO) 78.6 %; PLT - PLATELET COUNT 217 10^3/uL (130-450); RED BLOOD COUNT 3.71 10^6/uL (4.70-6.10); RED CELL DISTRIBUTION WIDTH 13.4 % (12.0-15.0); WHITE BLOOD COUNT 10.5 x10^3/uL (4.8-10.8)
[2019-05-16 05:31] LABS: PT - PROTHROMBIN TIME 11.7 secs (9.9-12.6)
[2019-05-16 05:41] LABS: CREATININE 0.7 mg/dL (0.6-1.2); MAGNESIUM 1.7 mg/dL (1.7-2.8)
[2019-05-16] MEDS: PANTOPRAZOLE 40 MG TABLET PO SCH (06:20)
[2019-05-16] MEDS ORDERED: POTASSIUM CHLORIDE 20 MEQ TABLET PO ONE (06:55)
[2019-05-16] MEDS ORDERED: PRENATAL VITAMIN TABLET PO SCH (09:00)
[2019-05-16] MEDS: THIAMINE 100 MG TABLET PO SCH (10:30)
[2019-05-16] MEDS: CITALOPRAM HYDROBROMIDE 20 MG TABLET PO SCH (10:30)
[2019-05-16] MEDS: METOPROLOL SUCCINATE 25 MG TABLET PO SCH (10:31)
[2019-05-16] MEDS: ENOXAPARIN 40 MG/0.4 ML SYRINGE SUBQ SCH (10:31)
[2019-05-16] MEDS: polyethylene glycoL 3350 17 GM PACKET PO SCH (10:32)
[2019-05-16] MEDS: DOXYCYCLINE INJ 100 MG in SODIUM CHLORIDE 0.9% MINIBAG 100 ML IV SCH (10:32)
[2019-05-16] MEDS: cefTRIAXone 2 GM in SODIUM CHLORIDE 0.9% MINIBAG 100 ML IV SCH (11:34)
[2019-05-16] MEDS ORDERED: oxyCODONE 5 MG TABLET PO PRN (12:10)
[2019-05-16] MEDS ORDERED: LORazepam 0.5 MG TABLET PO PRN (12:11)
[2019-05-16] MEDS ORDERED: ONDANSETRON ODT 4 MG TABLET TL PRN (12:14)
--- NOTE | 2019-05-16 12:17 | PROVIDER PROGRESS NOTE ---
Subjective - Prog Note Date Prog Note Date: 05/16/19 Prog Note Time: 12:15 - Subjective Pt reports feeling: Improved (Denies chest pain, SOB improved. Still c/o leg pain, which is chronic) Current Medications - Current Medications Current Medications: Active Medications Acetaminophen (Tylenol) 650 mg PO Q6HR PRN PRN Reason: Pain or Fever > 38C (100.4F) Benzonatate (Tessalon) 100 mg PO TID PRN PRN Reason: Cough Last Admin: 05/16/19 01:42 Dose: 100 mg Cefuroxime Axetil (Vantin) 100 mg PO BID [facility] Citalopram Hydrobromide (Celexa) 40 mg PO DAILY [facility] Last Admin: 05/16/19 10:30 Dose: 40 mg Doxycycline Hyclate (Vibramycin) 100 mg PO BID [facility] Enoxaparin Sodium (Lovenox) 40 mg SUBQ DAILY [facility] Last Admin: 05/16/19 10:31 Dose: 40 mg Gabapentin (Neurontin) 300 mg PO BID [facility] Hydroxyzine Pamoate (Vistaril) 50 mg PO QPM [facility] Last Admin: 05/15/19 21:13 Dose: 50 mg Lorazepam (Ativan) 0.5 mg PO Q6H PRN PRN Reason: Anxiety Metoprolol Succinate (Toprol Xl) 25 mg PO DAILY [facility] Last Admin: 05/16/19 10:31 Dose: 25 mg Ondansetron HCl (Zofran Odt) 4 mg TL Q6HR PRN PRN Reason: Nausea / Vomiting Oxycodone HCl (Roxicodone) 0 mg PO Q4HR PRN PRN Reason: PAIN Pantoprazole Sodium (Protonix) 40 mg PO QDAC [facility] Last Admin: 05/16/19 06:20 Dose: 40 mg Polyethylene Glycol (Miralax) 17 gm PO DAILY [facility] Last Admin: 05/16/19 10:32 Dose: Not Given Multivit/Folic Acid/Iron (Trinatal Rx 1) 1 tab PO DAILY [facility] Last Admin: 05/16/19 10:30 Dose: 1 tab Sodium Chloride (Normal Saline Flush 0.9%) 10 ml IVP PRN PRN PRN Reason: NEEDED PER PROVIDER ORDERS Last Admin: 05/16/19 11:35 Dose: 10 ml Sodium Chloride (Normal Saline Flush 0.9%) 10 ml IVP 0100,0900,1700 [facility] Last Admin: 05/16/19 10:31 Dose: 10 ml Thiamine HCl (Vitamin B-1) 100 mg PO DAILY [facility] Last Admin: 05/16/19 10:30 Dose: 100 mg hydrOXYzine HCL [Hydroxyzine HCl] 50 mg PO QPM 02/12/19 Potassium Chloride 10 meq PO DAILY 05/15/19 Objective - Vital Signs/Intake & Output Reviewed Vital Signs: Yes Vital Signs: Vital Signs x48h Temp Pulse Resp BP Pulse Ox 05/16/19 07:58 36.6 C 88 16 135/94 H 94 05/16/19 05:00 36.9 C 83 16 130/90 H 93 Intake & Output: Intake & Output 05/13/19 05/14/19 05/15/19 05/16/19 23:59 23:59 23:59 23:59 Intake Total 350 2511.80 656.25 Output Total 400 125 Balance 350 2111.80 531.25 - Objective General Appearance: positive: No acute distress Eyes Bilateral: positive: Normal inspection ENT: positive: ENT inspection nml, No signs of dehydration Neck: positive: Nml inspection Respiratory: positive: Chest non-tender, No respiratory distress, Breath sounds nml Cardiovascular: positive: Regular rate & rhythm, No murmur, No gallop Peripheral Pulses: 2+ Radial (R), 2+ Radial (L) Abdomen: positive: Non-tender, No organomegaly, Nml bowel sounds, No distention. negative: Hepatomegaly, Splenomegaly Skin: positive: Other (Few excoriated lesions over the abdomen) Extremities: positive: No pedal edema Neurologic/Psychiatric: positive: Oriented x3, CN's nml (2-12), Motor nml, Other (No tremor or asterexis) - Lab Results Fish Bones: 05/16/19 05:14 05/16/19 05:14 Other Labs: Lab Results x24hrs 05/16/19 05/16/19 05/16/19 Range/Units 05:14 05:14 05:14 WBC 10.5 (4.8-10.8) x10^3/uL RBC 3.71 L (4.70-6.10) 10^6/uL Hgb 12.9 L (14.0-18.0) g/dL Hct 37.6 L (42.0-52.0) % MCV 101.3 H (80.0-94.0) fL MCH 34.8 H (27.0-31.0) pg MCHC 34.3 (32.0-36.0) g/dL RDW 13.4 (12.0-15.0) % Plt Count 217 (130-450) 10^3/uL MPV 10.6 (7.4-11.4) fL Neut # (Auto) 8.3 H (1.5-6.6) 10^3/uL Lymph # (Auto) 0.9 L (1.5-3.5) 10^3/uL [place] # (Auto) 1.0 (0.0-1.0) 10^3/uL Eos # (Auto) 0.2 (0.0-0.7) 10^3/uL Baso # (Auto) 0.0 (0.0-0.1) 10^3/uL Absolute Nucleated RBC 0.00 x10^3/uL Nucleated RBC % 0.0 /100WBC PT 11.7 (9.9-12.6) secs INR 1.0 (0.8-1.2) Sodium 135 (135-145) mmol/L Potassium 3.5 (3.5-5.0) mmol/L Chloride 102 (101-111) mmol/L Carbon Dioxide 25 (21-32) mmol/L Anion Gap 8.0 (6-13) BUN 18 (6-20) mg/dL Creatinine 0.7 (0.6-1.2) mg/dL Estimated GFR (MDRD) 116 (>89) Glucose 95 (70-100) mg/dL Calcium 8.0 L (8.5-10.3) mg/dL Phosphorus 3.0 (2.5-4.6) mg/dL Magnesium 1.7 (1.7-2.8) mg/dL Urine Opiates Screen (NEGATIVE) Ur Oxycodone Screen (NEGATIVE) Urine Methadone Screen (NEGATIVE) Ur Propoxyphene Screen (NEGATIVE) Ur Barbiturates Screen (NEGATIVE) Ur Tricyclics Screen (NEGATIVE) Ur Phencyclidine Scrn (NEGATIVE) Ur Amphetamine Screen (NEGATIVE) U Methamphetamines Scrn (NEGATIVE) U Benzodiazepines Scrn (NEGATIVE) Urine Cocaine Screen (NEGATIVE) U Cannabinoids Screen (NEGATIVE) 05/15/19 Range/Units 16:20 WBC (4.8-10.8) x10^3/uL RBC (4.70-6.10) 10^6/uL Hgb (14.0-18.0) g/dL Hct (42.0-52.0) % MCV (80.0-94.0) fL MCH (27.0-31.0) pg MCHC (32.0-36.0) g/dL RDW (12.0-15.0) % Plt Count (130-450) 10^3/uL MPV (7.4-11.4) fL Neut # (Auto) (1.5-6.6) 10^3/uL Lymph # (Auto) (1.5-3.5) 10^3/uL [place] # (Auto) (0.0-1.0) 10^3/uL Eos # (Auto) (0.0-0.7) 10^3/uL Baso # (Auto) (0.0-0.1) 10^3/uL Absolute Nucleated RBC x10^3/uL Nucleated RBC % /100WBC PT (9.9-12.6) secs INR (0.8-1.2) Sodium (135-145) mmol/L Potassium (3.5-5.0) mmol/L Chloride (101-111) mmol/L Carbon Dioxide (21-32) mmol/L Anion Gap (6-13) BUN (6-20) mg/dL Creatinine (0.6-1.2) mg/dL Estimated GFR (MDRD) (>89) Glucose (70-100) mg/dL Calcium (8.5-10.3) mg/dL Phosphorus (2.5-4.6) mg/dL Magnesium (1.7-2.8) mg/dL Urine Opiates Screen NEGATIVE (NEGATIVE) Ur Oxycodone Screen NEGATIVE (NEGATIVE) Urine Methadone Screen NEGATIVE (NEGATIVE) Ur Propoxyphene Screen NEGATIVE (NEGATIVE) Ur Barbiturates Screen NEGATIVE (NEGATIVE) Ur Tricyclics Screen NEGATIVE (NEGATIVE) Ur Phencyclidine Scrn NEGATIVE (NEGATIVE) Ur Amphetamine Screen NEGATIVE (NEGATIVE) U Methamphetamines Scrn NEGATIVE (NEGATIVE) U Benzodiazepines Scrn NEGATIVE (NEGATIVE) Urine Cocaine Screen NEGATIVE (NEGATIVE) U Cannabinoids Screen POSITIVE H (NEGATIVE) - Diagnostic Imaging Diagnostic Imaging Results: positive: Final report reviewed ABX Reporting Has patient been on IV antibiotics over the past 48 hours?: Yes Sepsis Event Note (H) - Evaluation Current Stage of Sepsis: Resolved Possible source of Sepsis: positive: Pulmonary - Sepsis Criteria Sepsis Criteria: Recorded Temperature greater than 38.3C or Less than 36C, Recorded Heart Rate greater than 90 bpm, Recorded Respiratory Rate greater than 20, WBC count greater than 12,000 or less than 4000, Metabolic: lactate > 2 mmol/L Assessment/Plan - Problem List (1) Sepsis Impression: Present on admission, 2/ to presumed community acquired PNA - final respiratory culture pending. * On Room air * Afebrile * WBC improved from 20k to 10k Qualifiers: Sepsis type: sepsis due to unspecified organism Sepsis acute organ dysfunction status: without acute organ dysfunction Qualified Code(s): A41.9 - Sepsis, unspecified organism (2) Community acquired pneumonia Impression: Improving * Sepsis resolved * Resp Cx prelim shows gram + cocci, few gram - rods * Switch IV meds to oral doxycycline and vantin * If WBC normal and afebrile tomorrow, likely can d/c on 05/16 * Covid-19 testing is pending, but as long as pt is stable, no hypoxic, can d/c regardess of outcome but may need isolation, and given homeless status could complicate picture (3) Paroxysmal atrial fibrillation Impression: Rate controlled Not anticoagulated prior to admit, likely due to poor ability to f/u and fall risk Cont tele monitoring (4) ESTEVAN (acute kidney injury) Impression: Resolved (5) Acute combined systolic and diastolic CHF, NYHA class 3 Impression: Stable, no edema, no hypoxia. Cont home meds (6) Alcoholism Impression: No Si of W/D at this point. However, last drink was 2-3 days ago now, so will watch for W/D and start CIWA protocol if appropriate.
[2019-05-16] MEDS: GABAPENTIN 300 MG CAPSULE PO SCH (16:47)
[2019-05-16] MEDS: hydrOXYzine PAMOATE 25 MG CAPSULE PO SCH (20:52)
[2019-05-16] MEDS: DOXYCYCLINE 100 MG TABLET PO SCH (20:53)
[2019-05-16] MEDS: CEFPODOXIME PROXETIL 100 MG TABLET PO SCH (20:53)
[2019-05-16] MEDS: oxyCODONE 5 MG TABLET PO PRN (22:15)
[2019-05-17] MEDS: SODIUM CHLORIDE FLUSH 0.9% 10 ML SYRINGE IVP SCH ×3 (01:10→16:44)
[2019-05-17 06:03] LABS: BASOPHILS % (AUTO) 0.4 %; EOSINOPHILS # (AUTO) 0.3 10^3/uL (0.0-0.7); EOSINOPHILS % (AUTO) 3.8 %; HGB - HEMOGLOBIN 14.1 g/dL (14.0-18.0); LYMPHOCYTES % (AUTO) 12.2 %; MEAN CORPUSCULAR HEMOGLOBIN 34.6 pg (27.0-31.0); MEAN CORPUSCULAR HGB CONC 34.1 g/dL (32.0-36.0); MEAN CORPUSCULAR VOLUME 101.7 fL (80.0-94.0); MEAN PLATELET VOLUME 10.7 fL (7.4-11.4); MONOCYTES # (AUTO) 0.9 10^3/uL (0.0-1.0); MONOCYTES % (AUTO) 10.6 %; NEUTROPHILS # (AUTO) 5.9 10^3/uL (1.5-6.6); NEUTROPHILS % (AUTO) 71.9 %; PLT - PLATELET COUNT 232 10^3/uL (130-450); RED BLOOD COUNT 4.07 10^6/uL (4.70-6.10); RED CELL DISTRIBUTION WIDTH 13.2 % (12.0-15.0); WHITE BLOOD COUNT 8.1 x10^3/uL (4.8-10.8)
[2019-05-17 06:11] LABS: CALCIUM 8.2 mg/dL (8.5-10.3); CREATININE 0.7 mg/dL (0.6-1.2)
[2019-05-17] MEDS: oxyCODONE 5 MG TABLET PO PRN ×3 (06:17→21:20)
[2019-05-17] MEDS: PANTOPRAZOLE 40 MG TABLET PO SCH (06:18)
[2019-05-17] MEDS: CITALOPRAM HYDROBROMIDE 20 MG TABLET PO SCH (08:46)
[2019-05-17] MEDS: THIAMINE 100 MG TABLET PO SCH (08:46)
[2019-05-17] MEDS: DOXYCYCLINE 100 MG TABLET PO SCH ×2 (08:46→21:19)
[2019-05-17] MEDS: GABAPENTIN 300 MG CAPSULE PO SCH ×2 (08:46→16:46)
[2019-05-17] MEDS: CEFPODOXIME PROXETIL 100 MG TABLET PO SCH ×2 (08:46→21:20)
[2019-05-17] MEDS: ENOXAPARIN 40 MG/0.4 ML SYRINGE SUBQ SCH (08:47)
[2019-05-17] MEDS: polyethylene glycoL 3350 17 GM PACKET PO SCH (08:47)
[2019-05-17] MEDS: METOPROLOL SUCCINATE 25 MG TABLET PO SCH ×2 (10:18→16:45)
[2019-05-17] MEDS: PRENATAL VITAMIN TABLET PO SCH (11:58)
--- NOTE | 2019-05-17 12:03 | PROVIDER PROGRESS NOTE ---
Subjective - Prog Note Date Prog Note Date: 05/17/19 Prog Note Time: 11:59 - Subjective Pt reports feeling: No change Subjective: João states that he has had a rough time being homeless lately, with having to sleep out in the cold for several nights for different reasons out of his control. He states that his cough makes his whole chest burn and when he just walks across the room, he becomes quickly short of breath forcing him to stop and catch his breath. He states that his thighs have cellultitis, and have been insanely itchy for the past 1-month. I explained to João, that cellulitis would be where your skin is very red and painful, not as much itchy. He states he has never had scabies before, and does not think he would have any bugs. He denies worsening of his symptoms including chest pain, nausea, vomiting, other rashes, confusion, or shortness of breath at rest. He states that if he goes home today, he knows the cough would just bring him back to the ED. Current Medications - Current Medications Current Medications: Active Medications: Acetaminophen (Tylenol) 650 mg PO Q6HR PRN Benzonatate (Tessalon) 100 mg PO TID PRN Cefuroxime Axetil (Vantin) 200 mg PO BID [facility] Citalopram Hydrobromide (Celexa) 40 mg PO DAILY [facility] Doxycycline Hyclate (Vibramycin) 100 mg PO BID [facility] Enoxaparin Sodium (Lovenox) 40 mg SUBQ DAILY [facility] Gabapentin (Neurontin) 300 mg PO 0900,1700 [facility] Hydroxyzine Pamoate (Vistaril) 50 mg PO QPM [facility] Lorazepam (Ativan) 0.5 mg PO Q6H PRN Metoprolol Succinate (Toprol Xl) 25 mg PO BIDWM [facility] Ondansetron HCl (Zofran Odt) 4 mg TL Q6HR PRN Oxycodone HCl (Roxicodone) 5 - 10 mg PO Q4HR PRN Pantoprazole Sodium (Protonix) 40 mg PO QDAC [facility] Permethrin 60 applic TOP ONCE ONE Polyethylene Glycol (Miralax) 17 gm PO DAILY [facility] Multivit/Folic Acid/Iron (Trinatal Rx 1) 1 tab PO 1200 [facility] Thiamine HCl (Vitamin B-1) 100 mg PO DAILY [facility] Objective - Vital Signs/Intake & Output Reviewed Vital Signs: Yes Vital Signs: Vital Signs x48h Temp Pulse Resp BP BP Pulse Ox 05/17/19 10:16 106 H 145/89 H 05/17/19 08:27 36.6 C 103 H 20 120/99 H 95 05/17/19 05:00 36.6 C 91 20 124/76 94 Intake & Output: Intake & Output 05/14/19 05/15/19 05/16/19 05/17/19 23:59 23:59 23:59 23:59 Intake Total 350 2511.80 1756.25 820 Output Total 400 375 200 Balance 350 2111.80 1381.25 620 - Objective General Appearance: positive: Alert, Moderate distress, Anxious Eyes Bilateral: positive: No lid inflammation Eyes: OU Scleral icterus ENT: positive: Pharyngeal erythema, Dry mucous membranes Neck: positive: No JVD, Trachea midline, Lymphadenopathy (R), Lymphadenopathy (L), Stiff neck Respiratory: positive: Chest non-tender, Rhonchi, Other (coughing, use of accessory muscles) Cardiovascular: positive: No gallop, Irregularly irregular, Systolic murmur, Decreased pulse(s) Peripheral Pulses: 1+ Radial (R), 1+ Radial (L) Abdomen: positive: Non-tender, Guarding, Other (rounded, soft) Back: positive: Nml inspection Skin: positive: No rash, Warm, Dry, Other (bronze toned, early jaundice, upper thigh lesions (scabies), itching) Extremities: positive: Non-tender, No pedal edema, Joint swelling Neurologic/Psychiatric: positive: Oriented x3, CN's nml (2-12), Motor nml, Sensation nml, Weakness, Depressed mood/affect Reflexes: Bicep (R): 3+, Bicep (L): 3+ - Lab Results Fish Bones: 05/17/19 05:41 05/17/19 05:41 Other Labs: Lab Results x24hrs 05/17/19 05/17/19 05/16/19 Range/Units 05:41 05:41 07:56 WBC 8.1 (4.8-10.8) x10^3/uL RBC 4.07 L (4.70-6.10) 10^6/uL Hgb 14.1 (14.0-18.0) g/dL Hct 41.4 L (42.0-52.0) % MCV 101.7 H (80.0-94.0) fL MCH 34.6 H (27.0-31.0) pg MCHC 34.1 (32.0-36.0) g/dL RDW 13.2 (12.0-15.0) % Plt Count 232 (130-450) 10^3/uL MPV 10.7 (7.4-11.4) fL Neut # (Auto) 5.9 (1.5-6.6) 10^3/uL Lymph # (Auto) 1.0 L (1.5-3.5) 10^3/uL [place] # (Auto) 0.9 (0.0-1.0) 10^3/uL Eos # (Auto) 0.3 (0.0-0.7) 10^3/uL Baso # (Auto) 0.0 (0.0-0.1) 10^3/uL Absolute Nucleated RBC 0.00 x10^3/uL Nucleated RBC % 0.0 /100WBC Sodium 136 (135-145) mmol/L Potassium 3.6 (3.5-5.0) mmol/L Chloride 103 (101-111) mmol/L Carbon Dioxide 25 (21-32) mmol/L Anion Gap 8.0 (6-13) BUN 14 (6-20) mg/dL Creatinine 0.7 (0.6-1.2) mg/dL Estimated GFR (MDRD) 116 (>89) Glucose 102 H (70-100) mg/dL POC Whole Bld Glucose 98 (70 - 100) mg/dL Calcium 8.2 L (8.5-10.3) mg/dL Coronavirus (PCR) 05/14/19 Range/Units 19:35 WBC (4.8-10.8) x10^3/uL RBC (4.70-6.10) 10^6/uL Hgb (14.0-18.0) g/dL Hct (42.0-52.0) % MCV (80.0-94.0) fL MCH (27.0-31.0) pg MCHC (32.0-36.0) g/dL RDW (12.0-15.0) % Plt Count (130-450) 10^3/uL MPV (7.4-11.4) fL Neut # (Auto) (1.5-6.6) 10^3/uL Lymph # (Auto) (1.5-3.5) 10^3/uL [place] # (Auto) (0.0-1.0) 10^3/uL Eos # (Auto) (0.0-0.7) 10^3/uL Baso # (Auto) (0.0-0.1) 10^3/uL Absolute Nucleated RBC x10^3/uL Nucleated RBC % /100WBC Sodium (135-145) mmol/L Potassium (3.5-5.0) mmol/L Chloride (101-111) mmol/L Carbon Dioxide (21-32) mmol/L Anion Gap (6-13) BUN (6-20) mg/dL Creatinine (0.6-1.2) mg/dL Estimated GFR (MDRD) (>89) Glucose (70-100) mg/dL POC Whole Bld Glucose (70 - 100) mg/dL Calcium (8.5-10.3) mg/dL Coronavirus (PCR) NEGATIVE ABX Reporting Has patient been on IV antibiotics over the past 48 hours?: No Sepsis Event Note (H) - Evaluation Current Stage of Sepsis: Resolved Assessment/Plan - Problem List (1) Community acquired pneumonia Impression: -Patient initially presented with sepsis, which as resolved -WBC improved from 20k to 10k -Resp Cx prelim shows gram + cocci, few gram - rods -Switched IV meds to oral doxycycline and vantin -Covid-19 testing is negative -Ongoing productive cough, with chest burning Paroxysmal atrial fibrillation -Rate controlled -Not anticoagulated prior to admit, likely due to poor ability to f/u and fall risk -Repeat echo today, results are pending ESTEVAN (acute kidney injury) -Resolved -Serum creatinine stable today at 0.7 -Continue routine labs, resume diuretics later today COPD -Life long tobacco dependence, continues to smoke -No home inhalers, likely due to lack of regular health care -No interest in quitting -Monitor breathing, RT treatments, nebulizers for wheezing, treat this acute illness Acute combined systolic and diastolic CHF, NYHA class 3 -Stable, no edema, baseline dizziness, shortness of breath with exertion -New echo today, last echo showed a very poor EF of 20% -Enlarged abdominal girth, crippling COPD with ongoing tobacco dependence is playing a role in the progression of the RV failure -Cont home meds, treat symptoms, provide O2 with ambulation Alcoholism -No Si of W/D at this point. -Last drink was several days ago -Encourage cessation Scabies -Patient states, I have had a lot of itching from this cellulitis on my upper legs -Upon exam, appears intensely pruritic, 1-2 mm erythematous papules lesions on bilateral upper legs extending to the groin region -Causing great discomfort -Lives intermittently in a homeless fpc, making his high risk -Permethrin cream x1, should be applied after the shower today and left on for 8-14 hours -Repeat in 7 days (05/23) -Contact isolation
[2019-05-17] MEDS ORDERED: PERMETHRIN 5% CREAM 60 GM TUBE TOP ONE (12:45)
[2019-05-17] MEDS: SPIRONOLACTONE 25 MG TABLET PO SCH (16:46)
[2019-05-17] MEDS: hydrOXYzine PAMOATE 25 MG CAPSULE PO SCH (21:19)
[2019-05-18] MEDS: oxyCODONE 5 MG TABLET PO PRN ×3 (00:48→20:53)
[2019-05-18] MEDS: ACETAMINOPHEN 325 MG TABLET PO PRN ×2 (00:48→06:34)
[2019-05-18] MEDS: SODIUM CHLORIDE FLUSH 0.9% 10 ML SYRINGE IVP SCH ×3 (00:50→16:49)
[2019-05-18] MEDS: PANTOPRAZOLE 40 MG TABLET PO SCH (06:35)
[2019-05-18] MEDS: CEFPODOXIME PROXETIL 100 MG TABLET PO SCH ×2 (08:47→20:54)
[2019-05-18] MEDS: DOXYCYCLINE 100 MG TABLET PO SCH ×2 (08:48→20:54)
[2019-05-18] MEDS: SPIRONOLACTONE 25 MG TABLET PO SCH (08:48)
[2019-05-18] MEDS: CITALOPRAM HYDROBROMIDE 20 MG TABLET PO SCH (08:48)
[2019-05-18] MEDS: GABAPENTIN 300 MG CAPSULE PO SCH ×2 (08:48→16:48)
[2019-05-18] MEDS: METOPROLOL SUCCINATE 25 MG TABLET PO SCH ×2 (08:48→16:48)
[2019-05-18] MEDS: polyethylene glycoL 3350 17 GM PACKET PO SCH (08:48)
[2019-05-18] MEDS: ENOXAPARIN 40 MG/0.4 ML SYRINGE SUBQ SCH (08:49)
[2019-05-18] MEDS: THIAMINE 100 MG TABLET PO SCH (08:49)
--- NOTE | 2019-05-18 11:31 | PROVIDER PROGRESS NOTE ---
Subjective - Prog Note Date Prog Note Date: 05/18/19 Prog Note Time: 11:31 - Subjective Pt reports feeling: Improved Subjective: João complains of ongoing shortness of breath when attempting to get to the bathroom and while in the shower. He has difficulty with his travels and states that if he had to go home, he would have no way to walk and carry his belongings given how he is feeling with the activity intolerance. He has improved communication as he can speak in full sentences. He denies chest pain, nausea, vomiting, diarrhea, or a new productive cough. He states that since getting his cream for his skin lesions, he has a full resolution of the itching. He notes that he was covered head to toe with the cream. He may likely qualify for home oxygen which will be ordered for the AM prior to his discharge. Current Medications - Current Medications Current Medications: Active Medications: Acetaminophen (Tylenol) 650 mg PO Q6HR PRN Benzonatate (Tessalon) 100 mg PO TID PRN Cefuroxime Axetil (Vantin) 200 mg PO BID [facility] Citalopram Hydrobromide (Celexa) 40 mg PO DAILY [facility] Doxycycline Hyclate (Vibramycin) 100 mg PO BID [facility] Enoxaparin Sodium (Lovenox) 40 mg SUBQ DAILY [facility] Gabapentin (Neurontin) 300 mg PO 0900,1700 [facility] Hydroxyzine Pamoate (Vistaril) 50 mg PO QPM [facility] Lorazepam (Ativan) 0.5 mg PO Q6H PRN Metoprolol Succinate (Toprol Xl) 25 mg PO BIDWM [facility] Ondansetron HCl (Zofran Odt) 4 mg TL Q6HR PRN Oxycodone HCl (Roxicodone) 5 - 10 mg PO Q4HR PRN Pantoprazole Sodium (Protonix) 40 mg PO QDAC [facility] Polyethylene Glycol (Miralax) 17 gm PO DAILY [facility] Multivit/Folic Acid/Iron (Trinatal Rx 1) 1 tab PO 1200 [facility] Spironolactone (Aldactone) 25 mg PO DAILY [facility] Thiamine HCl (Vitamin B-1) 100 mg PO DAILY [facility] Objective - Vital Signs/Intake & Output Reviewed Vital Signs: Yes Vital Signs: Vital Signs x48h Temp Pulse Resp BP Pulse Ox 05/18/19 08:45 36.6 C 76 17 121/69 98 Intake & Output: Intake & Output 05/15/19 05/16/19 05/17/19 05/18/19 23:59 23:59 23:59 23:59 Intake Total 2511.80 1756.25 1260 1110 Output Total 400 375 500 Balance 2111.80 1381.25 760 1110 - Objective General Appearance: positive: No acute distress, Alert Eyes Bilateral: positive: PERRL ENT: positive: Pharynx nml, No signs of dehydration Neck: positive: No JVD, Trachea midline Respiratory: positive: Chest non-tender, No respiratory distress, Breath sounds nml, Other (scattered crackles, bilaterally, poor lung space) Cardiovascular: positive: No gallop, Irregularly irregular, Systolic murmur, Decreased pulse(s) Peripheral Pulses: 1+ Radial (R), 1+ Radial (L) Abdomen: positive: Non-tender, Nml bowel sounds, Other (flat) Back: positive: Nml inspection Skin: positive: Color nml, No rash, Warm, Dry, Other (scabies lesions are much improved, no redness today) Extremities: positive: Non-tender, Joint swelling, Other (chronic longstanding v enous insufficiency to BLEs) Neurologic/Psychiatric: positive: Oriented x3, CN's nml (2-12), Motor nml, Sensation nml, Weakness, Depressed mood/affect (flat) Reflexes: Bicep (R): 3+, Bicep (L): 3+ - Lab Results Fish Bones: 05/17/19 05:41 05/17/19 05:41 ABX Reporting Has patient been on IV antibiotics over the past 48 hours?: No Sepsis Event Note (H) - Evaluation Current Stage of Sepsis: Resolved Assessment/Plan - Problem List (1) Community acquired pneumonia Impression: -Patient initially presented with sepsis, which as resolved -WBC improved from 20k to 10k -Resp Cx prelim shows gram + cocci, few gram - rods -Switched IV meds to oral doxycycline and vantin -Covid-19 testing is negative -Ongoing productive cough, with chest burning Paroxysmal atrial fibrillation -Rate controlled -Not anticoagulated prior to admit, likely due to poor ability to f/u and fall risk ESTEVAN (acute kidney injury) -Resolved -Serum creatinine stable today at 0.7 -Continue routine labs, resume diuretics later today COPD -Life long tobacco dependence, continues to smoke -No home inhalers, likely due to lack of regular health care -No interest in quitting -Monitor breathing, RT treatments, nebulizers for wheezing, treat this acute illness Acute combined systolic and diastolic CHF, NYHA class 3 -Stable, no edema, baseline dizziness, shortness of breath with exertion -New echo today, last echo showed a very poor EF of <20%, now improved to 20-25% -Enlarged abdominal girth, crippling COPD with ongoing tobacco dependence is playing a role in the progression of the RV failure -Echo also shows a smaller RV -Cont home meds, treat symptoms, provide O2 with ambulation 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 -Last drink was several days ago -Encourage cessation Scabies -Patient states, I have had a lot of itching from this cellulitis on my upper legs -Upon exam, appears intensely pruritic, 1-2 mm erythematous papules lesions on bilateral upper legs extending to the groin region, none on the scrotum -A complete resolution of itching since applying the cream -Lives intermittently in a homeless nursing home, making his high risk -Permethrin cream will be prescribed upon discharge, repeat in 7 days (05/23) -Avoid wearing the same clothes, recommend doing laundry to prevent re- infestation -Contact isolation
[2019-05-18] MEDS: PRENATAL VITAMIN TABLET PO SCH (11:54)
[2019-05-18] MEDS: hydrOXYzine PAMOATE 25 MG CAPSULE PO SCH (20:53)
[2019-05-19] MEDS: SODIUM CHLORIDE FLUSH 0.9% 10 ML SYRINGE IVP SCH ×2 (01:20→11:26)
[2019-05-19 05:40] LABS: BASOPHILS # (AUTO) 0.1 10^3/uL (0.0-0.1); BASOPHILS % (AUTO) 0.8 %; EOSINOPHILS # (AUTO) 0.4 10^3/uL (0.0-0.7); EOSINOPHILS % (AUTO) 5.8 %; HGB - HEMOGLOBIN 13.6 g/dL (14.0-18.0); LYMPHOCYTES # (AUTO) 1.3 10^3/uL (1.5-3.5); MEAN CORPUSCULAR HEMOGLOBIN 35.1 pg (27.0-31.0); MEAN CORPUSCULAR HGB CONC 33.7 g/dL (32.0-36.0); MEAN CORPUSCULAR VOLUME 103.9 fL (80.0-94.0); MEAN PLATELET VOLUME 10.3 fL (7.4-11.4); MONOCYTES # (AUTO) 1.3 10^3/uL (0.0-1.0); MONOCYTES % (AUTO) 17.4 %; NEUTROPHILS # (AUTO) 4.2 10^3/uL (1.5-6.6); NEUTROPHILS % (AUTO) 57.2 %; PLT - PLATELET COUNT 260 10^3/uL (130-450); RED BLOOD COUNT 3.88 10^6/uL (4.70-6.10); RED CELL DISTRIBUTION WIDTH 13.2 % (12.0-15.0); WHITE BLOOD COUNT 7.4 x10^3/uL (4.8-10.8)
[2019-05-19 05:48] LABS: ALBUMIN 2.9 g/dL (3.2-5.5); BILIRUBIN,TOTAL 0.6 mg/dL (0.2-1.0); CALCIUM 8.3 mg/dL (8.5-10.3); CREATININE 0.9 mg/dL (0.6-1.2); MAGNESIUM 1.7 mg/dL (1.7-2.8); TOTAL PROTEIN 5.9 g/dL (6.7-8.2)
[2019-05-19] MEDS: PANTOPRAZOLE 40 MG TABLET PO SCH (06:05)
[2019-05-19] MEDS: oxyCODONE 5 MG TABLET PO PRN (06:05)
--- NOTE | 2019-05-19 09:02 | Discharge Plan ---
Discharge Plan Problem Reviewed?: Yes Disposition: Home, Self Care Condition: Good Prescriptions: Benzonatate [Tessalon] 100 mg PO TID PRN #30 capsule PRN Reason: Cough Cefpodoxime Proxetil [Vantin] 200 mg PO Q12H #10 tablet Doxycycline Hyclate 100 mg PO BID #10 capsule Gabapentin [Neurontin] 300 mg PO 0900,1700 #60 capsule Permethrin 5% Cream 60 applic TOP ONCE #1 tube Potassium Chloride 10 meq PO DAILY #60 capsule.er Vitamin [Trinatal Rx 1] 1 tab PO 1200 #30 tablet Thiamine [Vitamin B-1] 100 mg PO DAILY #30 tablet Diet: Cardiac Activity Restrictions: Activity as Tolerated Shower Restrictions: No Assistance Devices: Cane Instruction Topics: Gabapentin capsules or tablets, Thiamine Vitamin B1 tablets, Citalopram tablets, Hydroxyzine capsules or tablets, Metoprolol tablets, Benzonatate capsules, Pantoprazole tablets Health Concerns: Pneumonia Scabies Heart failure Low oxygen while walking Plan of Treatment: Continue the antibiotics for the next 5 days Repeat the scabies cream to cover all skin on your body in one week from 05/16 (05/23) An oxygen walking test is pending Care Goals: Prevent heart failure symptoms such as swelling in your legs or abdomen, shortness of breath, cough Prevent falls Maintain a steady place to stay Prevent ED visits or hospital stays Assessment: You were admitted to the hospital for pneumonia, also with concerns initially for COVID-19, which is NEGATIVE. You complained of skin itching, and on further exam, were found to have a little bug called scabies, which was successfully treated with cream to be repeated in 7 days. Your symptoms of pneumonia improved and you will be undergoing an oxygen walking study to make sure you do not need home oxygen. You are medically stable and social work and helped with arranging a place for your to go today. Additional Instructions or Follow Up instructions: Please wash all of your clothes in hot water before you wear them again to prevent the scabies from coming back. No Smoking: If you smoke, Please STOP! Call for help.
--- NOTE | 2019-05-19 09:11 | DISCHARGE SUMMARY ---
Discharge Summary Admit Date: 05/14/19 Discharge Date: 05/19/19 Discharging Provider: MARIA ELENA Bella Primary Care Provider: Ranulfo Mccormick PA-C Code Status: Do Not Attempt Resuscitation Condition at Discharge: Good Discharge Disposition: 01 Home, Self Care - DIAGNOSES Discharge Diagnoses with Status of Each Condition: Community acquired pneumonia-Present on admit, ruled out for COVID-19, testing was NEGATIVE, treatment to continue with PO Vantin, PO doxycycline, stable, no oxygen requirements Paroxysmal atrial fibrillation-Chronic, stable on meds ESTEVAN (acute kidney injury)-Present on admission, now resolved Chronic obstructive pulmonary disease (COPD)-Chronic, no interest in stopping smoking, stable Acute on chronic combined systolic and diastolic CHF, NYHA class 3-Chronic, mild acute CHF during first part of pneumonia treatment, NOT present on admission, stable, continues on home medications Cor pulmonale-Chronic, no issues, continues on home spironolactone, stable Peripheral neuropathy-Chronic, more problematic, continued on gabapentin to be taken outpatient, stable and improved Alcoholism-Chronic, stable Scabies-Present on admit, itchy for the past 2-3 months, repeat cream in 7 days, sent to the pharmacy, hot laundry for all clothes, stable - HPI History of Present Illness: HPI per Dr. Colilnsf: This is a 59-year-old gentleman with a past medical history significant for chronic systolic heart failure with an ejection fraction less than 20%, COPD not on home oxygen, paroxysmal atrial fibrillation, history of alcoholism and possible liver disease who presents today from a homeless senior living complaining of worsening shortness of breath, cough, and fever for the past week to week and a half. He states his symptoms have progressed. He has had chills, malaise, myalgias and a productive cough. He also reported pleuritic chest pain that is most prominent when he coughs and takes deep breaths. Is located on the right side of his chest. The pain is sharp in nature. He reports no nausea, vomiting, abdominal pain. He denies hematuria, dysuria, urgency. He reports numbness in his lower extremities which is chronic. He denies any headache or blurry vision. He did not have a flu vaccine this year. He reports that people at the homeless senior living have been coughing and there have been cases of bronchitis over the past few weeks otherwise he reports no sick contacts. He denies any history of IV drug use. He no longer drinks alcohol. With regards to his cardiac history, he states he is compliant with his home medications. He does not have a defibrillator in place. He states he no longer follows up with a video manager. He states the plan in the past was to cardiovert him but they cannot get his blood thin enough. Upon EMS arrival, he had a temperature of 101 F. He did receive 500 cc normal saline in route to the emergency department. In the emerge department, he had a temperature of 37.7 C. He was tachycardic with a heart rate in the 100s. Pressure was 107/83. He was tachypneic in the low 20s but saturating mid 90s on room air. Labs are significant for a white count of 17.8 with a left shift and 3% bands. Sodium was decreased at 132. Lactic acid was slightly elevated at 2.3. Influenza was negative. He was s creened for novel coronavirus. Chest x-ray showed mild bilateral mid and lower lung opacities concerning for atypical infection. Given his pneumonia severity index score of 88 and the concern for sepsis possibly worsening decline his respiratory status given his heart failure, Medicine was consulted for observation. I did discuss goals of care with the patient and he would like to be a DNR. He would not want to be intubated if his respiratory status were to decline. - HOSPITAL COURSE Hospital Course: The patient was admitted to the hospital for pneumonia, also with concerns initially for COVID-19, which is NEGATIVE. He had ongoing complaints of skin itching, and on further exam, were found to have scabies infestation, which was successfully treated with Permethrin cream to be repeated in 7 days. His symptoms of pneumonia improved and he passed an oxygen walking study, disqualifying him for home oxygen. He is medically stable and social work has helped with arranging post-discharge destination. - ALLERGIES Allergies/Adverse Reactions: Allergies Allergy/AdvReac Type Severity Reaction Status Date / Time No Known Drug Allergies Allergy Verified 02/21/19 09:18 - MEDICATIONS Home Medications: Ambulatory Orders Medication Instructions Recorded Confirmed Citalopram [CeleXA] 40 mg ORAL DAILY #30 tablet 04/28/17 05/15/19 Metoprolol Succinate [Toprol Xl] 25 mg PO DAILY #30 tablet 04/28/17 05/15/19 Spironolactone [Aldactone] 50 mg PO DAILY #30 tablet 04/28/17 05/15/19 hydrOXYzine HCL [Hydroxyzine HCl] 50 mg PO QPM 02/12/19 05/15/19 Benzonatate [Tessalon] 100 mg PO TID PRN #30 capsule 05/19/19 Cefpodoxime Proxetil [Vantin] 200 mg PO Q12H #10 tablet 05/19/19 Doxycycline Hyclate 100 mg PO BID #10 capsule 05/19/19 Gabapentin [Neurontin] 300 mg PO 0900,1700 #60 capsule 05/19/19 Permethrin 5% Cream 60 applic TOP ONCE #1 tube 05/19/19 Potassium Chloride 10 meq PO DAILY #60 capsule.er 05/19/19 Vitamin [Trinatal Rx 1] 1 tab PO 1200 #30 tablet 05/19/19 Thiamine [Vitamin B-1] 100 mg PO DAILY #30 tablet 05/19/19 - PHYSICAL EXAM AT DISCHARGE General Appearance: positive: No acute distress, Alert Eyes Bilateral: positive: PERRL, No lid inflammation ENT: positive: Pharynx nml, No signs of dehydration Neck: positive: No JVD, Trachea midline, Stiff neck Respiratory: positive: Chest non-tender, No respiratory distress, Breath sounds nml Cardiovascular: positive: Regular rate & rhythm, No gallop, Systolic murmur, Decreased pulse(s) Peripheral Pulses: positive: 1+ Abdomen: positive: Non-tender, Nml bowel sounds Back: positive: Nml inspection Skin: positive: Color nml, No rash, Warm, Dry Extremities: positive: Non-tender, Other (chronically discoloration to BLEs, cool at times) Neurologic/Psychiatric: positive: Oriented x3, CN's nml (2-12), Motor nml, Weakness, Sensory loss, Depressed mood/affect (flat) Reflexes: Bicep (R): 3+, Bicep (L): 3+ - LABS Result Diagrams: 05/19/19 05:20 05/19/19 05:20 - SEPSIS Current Stage of Sepsis: Resolved - FOLLOW UP Follow Up: See your PCP within one week Repeat cream for scabies on 05/23 - TIME SPENT Time Spent in Discharge (Minutes): 55
[2019-05-19 09:31] VITALS: BP 113/92
[2019-05-19] MEDS: DOXYCYCLINE 100 MG TABLET PO SCH (09:56)
[2019-05-19] MEDS: CEFPODOXIME PROXETIL 100 MG TABLET PO SCH (09:56)
[2019-05-19] MEDS: CITALOPRAM HYDROBROMIDE 20 MG TABLET PO SCH (09:57)
[2019-05-19] MEDS: SPIRONOLACTONE 25 MG TABLET PO SCH (09:57)
[2019-05-19] MEDS: METOPROLOL SUCCINATE 25 MG TABLET PO SCH (09:58)
[2019-05-19] MEDS: ENOXAPARIN 40 MG/0.4 ML SYRINGE SUBQ SCH (09:58)
[2019-05-19] MEDS: polyethylene glycoL 3350 17 GM PACKET PO SCH (09:58)
[2019-05-19] MEDS: GABAPENTIN 300 MG CAPSULE PO SCH (09:59)
[2019-05-19] MEDS: THIAMINE 100 MG TABLET PO SCH (10:03)
[2019-05-19] MEDS: PRENATAL VITAMIN TABLET PO SCH (12:02)
== END 2019-05-19 15:15 | disposition home or self-care (01) | DRG 871 ==
LOC: EDUNIT# → ED 19:06 → MS2 20:52 → OBSVTOIN 05-16 14:53
PROVIDERS: ADMIT Internal Medicine; ATTEND Nurse Practitioner
DX: A41.9 Sepsis, unspecified organism (principal); J18.9 Pneumonia, unspecified organism; I50.43 Acute on chronic combined systolic (congestive) and diastolic (congestive) heart failure; N17.9 Acute kidney failure, unspecified; J44.0 Chronic obstructive pulmonary disease with (acute) lower respiratory infection; I38 Endocarditis, valve unspecified; I48.0 Paroxysmal atrial fibrillation; F10.20 Alcohol dependence, uncomplicated; F17.210 Nicotine dependence, cigarettes, uncomplicated; I27.81 Cor pulmonale (chronic); G62.9 Polyneuropathy, unspecified; B86 Scabies; I25.10 Atherosclerotic heart disease of native coronary artery without angina pectoris; E78.00 Pure hypercholesterolemia, unspecified; J32.9 Chronic sinusitis, unspecified; F32.9 Major depressive disorder, single episode, unspecified; I73.9 Peripheral vascular disease, unspecified; K21.9 Gastro-esophageal reflux disease without esophagitis; N40.1 Benign prostatic hyperplasia with lower urinary tract symptoms; R35.0 Frequency of micturition; R35.1 Nocturia; H54.7 Unspecified visual loss; G89.29 Other chronic pain; M54.9 Dorsalgia, unspecified; Z66 Do not resuscitate; Z79.51 Long term (current) use of inhaled steroids; Z79.52 Long term (current) use of systemic steroids; Z79.899 Other long term (current) drug therapy; I25.2 Old myocardial infarction; Z59.0 Homelessness
CPT/HCPCS: 36415; 71045; 80048; 80053; 80306; 83605; 83690; 83735; 84100; 85025; 85610; 87040; 87070; 87205; 87275; 87276; 87635; 93005; 93306; 96361; 96365; 96366; 96367; 96368; 96372; 96375; 96376; 99284; 99285; A9270; G0378; J1650; J7120; J8499; 80320; 81599

== ENCOUNTER 2019-07-07 11:35 | Outpatient (CLI) | payer MEDICAID | END 2019-07-07 11:36 | disposition critical access hospital (66) | LOC: EMS 11:35 | PROVIDERS: ATTEND Surgery | DX: R06.89 Other abnormalities of breathing (principal); R05 Cough | CPT/HCPCS: A0425; A0427; A0999 ==

== ENCOUNTER 2020-05-15 07:47 | Outpatient (CLI) | payer MEDICAID ==
[2020-05-15 11:31] LABS: BASOPHILS # (AUTO) 0.1 10^3/uL (0.0-0.1); BASOPHILS % (AUTO) 0.8 %; EOSINOPHILS # (AUTO) 0.2 10^3/uL (0.0-0.7); EOSINOPHILS % (AUTO) 1.6 %; HCT - HEMATOCRIT 47.4 % (42.0-52.0); HGB - HEMOGLOBIN 15.7 g/dL (14.0-18.0); LYMPHOCYTES # (AUTO) 1.3 10^3/uL (1.5-3.5); LYMPHOCYTES % (AUTO) 10.9 %; MEAN CORPUSCULAR HEMOGLOBIN 32.1 pg (27.0-31.0); MEAN CORPUSCULAR HGB CONC 33.1 g/dL (32.0-36.0); MEAN CORPUSCULAR VOLUME 96.9 fL (80.0-94.0); MEAN PLATELET VOLUME 10.7 fL (7.4-11.4); MONOCYTES % (AUTO) 8.3 %; NEUTROPHILS # (AUTO) 9.3 10^3/uL (1.5-6.6); NEUTROPHILS % (AUTO) 77.7 %; PLT - PLATELET COUNT 440 10^3/uL (130-450); RED BLOOD COUNT 4.89 10^6/uL (4.70-6.10); RED CELL DISTRIBUTION WIDTH 14.7 % (12.0-15.0)
[2020-05-15 11:48] LABS: ALBUMIN/GLOBULIN RATIO 1.3 (1.0-2.2); ALKALINE PHOSPHATASE 72 IU/L (42-121); ALT ALANINE AMINOTRANSFERASE < 10 IU/L (10-60); AST ASPARTATE AMINOTRANSFERASE 15 IU/L (10-42); BILIRUBIN,TOTAL 0.6 mg/dL (0.2-1.0); BUN - BLOOD UREA NITROGEN 14 mg/dL (6-20); CARBON DIOXIDE - CO2 26 mmol/L (21-32); CHLORIDE 104 mmol/L (101-111); CREATININE 0.9 mg/dL (0.6-1.2); GFR - MDRD 86 (>89); GLUCOSE 106 mg/dL (70-100); POTASSIUM 3.5 mmol/L (3.5-5.0); SODIUM 139 mmol/L (135-145); TOTAL PROTEIN 7.2 g/dL (6.7-8.2)
[2020-05-15 12:04] LABS: THYROID STIMULATING HORMONE 3.32 uIU/mL (0.34-5.60)
== END 2020-05-15 07:48 | disposition home or self-care (01) ==
LOC: LAB.N 07:47
PROVIDERS: ATTEND Family Medicine
DX: E87.6 Hypokalemia (principal); F10.10 Alcohol abuse, uncomplicated; I48.0 Paroxysmal atrial fibrillation; J44.9 Chronic obstructive pulmonary disease, unspecified
CPT/HCPCS: 36415; 80050

== ENCOUNTER 2020-07-09 00:11 | Outpatient (CLI) | payer MEDICAID | END 2020-07-09 00:12 | disposition critical access hospital (66) | LOC: EMS 00:11 | DX: S01.81XA Laceration without foreign body of other part of head, initial encounter (principal); W22.01XA Walked into wall, initial encounter; Y93.9 Activity, unspecified | CPT/HCPCS: A0425; A0429; A0999 ==

== ENCOUNTER 2020-07-09 00:25 | Emergency (ER) | payer MEDICAID ==
--- OUTSIDE RECORDS SUMMARY | 2020-07-09 00:47 | EXTERNAL MEDICAL SUMMARY RPT | Continuity of Care Document ---
:1960 Demographics Phone Unavailable Preferred Language Unknown Marital Status Unknown Syn[employer] Affiliation Unknown Race Unknown Ethnic Group Unknown Author Organization [facility] Address [address] [place] [address] Phone Allergies Encounters Medications Problems Results
--- NOTE | 2020-07-09 03:24 | ED Physician Documentation ---
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 No: Anticoagulated Recently seen: Not recently seen - Additional information Additional information: patient has been drinking alcohol tonight. Presents by ambulance after a fall. Patient tripped over his friend, causing him to fall and struck his face against a wall. Patient denies loss of consciousness. Patient complains of generalized headache. He sustained right right eyebrow laceration. Review of Systems Eyes: reports: Reviewed and negative Cardiac: reports: Reviewed and negative Respiratory: reports: Reviewed and negative GI: reports: Reviewed and negative Skin: reports: Laceration (s) Musculoskeletal: denies: Neck pain, Back pain Neurologic: reports: Headache, Head injury. denies: Generalized weakness, Focal weakness, Numbness, Altered mental status, LOC PD PAST MEDICAL HISTORY - Past Medical History Past Medical History: Yes Cardiovascular: Congestive heart failure, Hypertension, High cholesterol, Coronary artery disease, Peripheral Vascular Disease, [place], Atrial fibrillation, Murmur, Arrhythmia, Valve disorder Respiratory: COPD, Emphysema Neuro: Head injury, Headaches, Peripheral neuropathy Endocrine/Autoimmune: None GI: GERD DIRECTOR INTERNATIONAL: None : Benign prostate hypertrophy, Nocturia, Frequency HEENT: Chronic vision loss, Chronic sinusitis Psych: Depression, Anxiety Musculoskeletal: Chronic back pain Derm: None - Past Surgical History Past Surgical History: Yes HEENT: Tonsil/Adenoidectomy - Present Medications Home Medications: Ambulatory Orders Medication Instructions Recorded Confirmed Citalopram [CeleXA] 40 mg ORAL DAILY #30 tablet 04/28/17 07/09/20 Metoprolol Succinate [Toprol Xl] 25 mg PO DAILY #30 tablet 04/28/17 07/09/20 Gabapentin [Neurontin] 300 mg PO 0900,1700 #60 capsule 05/19/19 Albuterol Sulf [Ventolin Hfa 1 - 2 puffs INH Q4HR PRN #1 inhaler 07/07/19 07/09/20 Inhaler] Gabapentin [Neurontin] 300 mg PO TID PRN #20 capsule 07/07/19 07/09/20 - Allergies Allergies/Adverse Reactions: Allergies Allergy/AdvReac Type Severity Reaction Status Date / Time No Known Drug Allergies Allergy Verified 07/09/20 01:04 - Social History Does the pt smoke?: Yes Smoking Status: Current every day smoker Does the pt drink ETOH?: Yes Does the pt have substance abuse?: Yes - Immunizations Immunizations are current?: Yes - POLST Patient has POLST: Yes POLST Status: DNR PD ED PE NORMAL - Vitals Vital signs reviewed: Yes - General General: Alert and oriented X 3, No acute distress, Well developed/nourished - HEENT HEENT: PERRL, EOMI, Moist mucous membranes PD ED PE EXPANDED - HEENT HEENT Visual: 1 - laceration (1.5 cm length) 2 - laceration (0.5 cm length) 3 - bruising, swelling, tenderness Results - Vitals Vitals: Oxygen O2 Source Room air - Rads (name of study) CT head Radiology: Prelim report reviewed, See rad report CT facial bones Radiology: Prelim report reviewed, See rad report CT cervical spine Radiology: Prelim report reviewed, See rad report Procedures - Laceration (location) Face right Length in cm: 1.5 Wound type: Linear, Into subcut fat, Clean Neurovascular status: Sensory intact, Motor intact Anesthesia: Lidocaine 1% Wound preparation: Hibiclens, Wound explored. No: FB identified Skin layer closure: Nylon, Size #-0 - enter number (5-0) Other: Patient tolerated well, No complications, Neurovascular intact Eyelid right Length in cm: 0.5 Wound type: Linear, Into subcut fat Skin layer closure: Dermabond Other: Patient tolerated well, No complications PD MEDICAL DECISION MAKING - ED course Complexity details: reviewed results, re-evaluated patient, considered differential, d/w patient Departure - Departure Disposition: 01 Home, Self Care Clinical Impression: Laceration Fall Qualifiers: Encounter type: initial encounter Qualified Code(s): W19.XXXA - Unspecified fall, initial encounter Instructions: ED Mechanical Fall, ED Laceration Facial Skin Glue, ED Laceration Facial Sutr Tape Follow-Up: IZZY ALVARADO PA-C [Physician No Access] - Comments: Follow up in 7-10 days for removal of the stitches Discharge Date/Time: 07/09/20 06:54
[2020-07-09] MEDS ORDERED: BUFFERED LIDOCAINE 10 ML SYRINGE SUBQ STA (04:17)
[2020-07-09 06:07] VITALS: BP 124/75
--- NOTE | 2020-07-09 10:04 | CT Report ---
PROCEDURE: CERVICAL SPINE WO INDICATIONS: fall, neck pain TECHNIQUE: Noncontrast 3 mm thick sections acquired from the skull base to the T4 level. Sagittal and coronal r eformats were then constructed. For radiation dose reduction, the following was used: automated exp osure control, adjustment of mA and/or kV according to patient size. COMPARISON: 10/04/2017. Correlation is also made with the accompanying CT examinations. FINDINGS: Image quality: Excellent. Bones: No fractures or dislocations. Visualized superior ribs are intact. At the C3-C4, C5-C6, and C6-C7 levels, there is moderate to severe loss of disc height. Endplate irre gularity and sclerosis can be seen at these levels. Milder degenerative changes are seen elsewhere. Soft tissues: Prevertebral soft tissues are normal in thickness. No paravertebral hematomas. No ap ical pneumothoraces. Emphysematous changes can be seen at the lung apices. 1.4 cm right thyroid nodu le incidentally noted. Atherosclerotic calcification is seen. IMPRESSION: Negative for acute fracture. Cervical spine degenerative changes are seen, which have progressed compared to 2018, particularly at the C6-C7 level. Incidental note is made of: 1.4 cm right thyroid nodule Emphysematous change at the lung apices Note: No significant discrepancy from the preliminary report. Reviewed by: Aden Weiss MD on 07/09/2020 9:03 AM KALEB Approved by: Aden Weiss MD on 07/09/2020 9:03 AM KALEB Station ID: [id number]
--- NOTE | 2020-07-09 10:09 | CT Report ---
PROCEDURE: MAXILLOFACIAL WO INDICATIONS: fall, facial swelling, bruising, lacerations TECHNIQUE: Noncontrast 1.5 mm thick axial images acquired from the mandible through the frontal sinuses, with co selina and sagittal reformatting. For radiation dose reduction, the following was used: automated ex posure control, adjustment of mA and/or kV according to patient size. COMPARISON: Correlation is made with the accompanying CT examinations, 07/09/2020. FINDINGS: Image quality: Excellent. Bones and teeth: Orbital redding are intact. Sinus redding show no fracture or deformity. Remote appear ing nasal bone fractures can be seen. No nasal septal fracture is seen. Minimal rightward nasal septa l deviation is noted. Visualized portions of the mandible demonstrate no fractures or subluxation. Z ygomatic arches are intact. Pterygoid plates are intact. Visualized portions of the skull base and auditory canals are intact. Poor dentition can be seen, with numerous caries and areas of periapical lucency. Sinuses: Moderate mucosal thickening is seen within the ethmoid air cells and the maxillary sinuses. The osteochondral complexes are highly narrowed by soft tissue thickening. Demineralization can be se en of the medial redding of the maxillary sinuses and the uncinate processes. Mastoid air cells are aer ated. Soft tissues: Mild right forehead soft tissue hematoma can be seen. No enlarged lymph nodes. No sof t tissue lacerations or debris. Vascular: Visualized vascular structures appear normal in the absence of contrast. Bony vascular fo ramina and canals are intact. IMPRESSION: No acute fracture can be seen. Mild right forehead soft tissue hematoma. Incidental note is made of: Paranasal sinus disease, with a chronic appearance Remote nasal bone fractures Poor dentition, with numerous caries and areas of periapical lucency Note: No significant discrepancy from the preliminary report. Reviewed by: Aden Weiss MD on 07/09/2020 9:08 AM KALEB Approved by: Aden Weiss MD on 07/09/2020 9:08 AM KALEB Station ID: [id number]
--- NOTE | 2020-07-09 10:10 | CT Report ---
PROCEDURE: HEAD WO INDICATIONS: fall facial and head lacerations TECHNIQUE: Noncontrast 4.5 mm thick angled axial sections acquired from the foramen magnum to the vertex. For r adiation dose reduction, the following was used: automated exposure control, adjustment of mA and/or kV according to patient size. COMPARISON: 10/04/2017. Correlation is also made with the accompanying CT examinations. FINDINGS: Image quality: Excellent. CSF spaces: Basal cisterns are patent. No extra-axial fluid collections. Ventricles are normal in size and shape. Brain: No midline shift. No intracranial masses or hemorrhage. Salcido-white matter interface is norm al. Skull and face: There is a mild right forehead/periorbital soft tissue hematoma seen, without an und erlying fracture. Calvarium and visualized facial bones are intact, without suspicious lesions. Sinuses: Visualized sinuses and mastoids are clear. IMPRESSION: No intracranial hemorrhage is seen. No significant intracranial abnormality is seen. Right forehead/periorbital soft tissue hematoma is seen, without an underlying fracture. Note: No significant discrepancy from the preliminary report. Reviewed by: Aden Weiss MD on 07/09/2020 9:09 AM KALEB Approved by: Aden Weiss MD on 07/09/2020 9:09 AM KALEB Station ID: [id number]
== END 2020-07-09 06:54 | disposition home or self-care (01) ==
LOC: EDUNIT# → ED 00:25
DX: S01.111A Laceration without foreign body of right eyelid and periocular area, initial encounter (principal); S00.83XA Contusion of other part of head, initial encounter; W01.198A Fall on same level from slipping, tripping and stumbling with subsequent striking against other object, initial encounter; Y92.410 Unspecified street and highway as the place of occurrence of the external cause; Z72.89 Other problems related to lifestyle; I10 Essential (primary) hypertension; M47.812 Spondylosis without myelopathy or radiculopathy, cervical region; E04.1 Nontoxic single thyroid nodule; J43.9 Emphysema, unspecified; F17.200 Nicotine dependence, unspecified, uncomplicated; Z66 Do not resuscitate
CPT/HCPCS: 12011; 99282; 99284

== ENCOUNTER 2020-08-07 08:01 | Emergency (ER) | payer MEDICAID ==
--- NOTE | 2020-08-07 08:18 | ED Physician Documentation ---
History of Present Illness - Stated complaint Stated Complaint: STITCHES REMOVAL - Chief complaint Chief Complaint: General - History obtained from History obtained from: Patient - Additonal information Additional information: 60-year-old man presents for suture removal of 4 stitches in the right eyebrow. He states that he had been placed about a month ago but was unable to get into see a doctor until now. No other concerns at this time. 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: None : Benign prostate hypertrophy, Nocturia, Frequency HEENT: Chronic vision loss, Chronic sinusitis Psych: Depression, Anxiety Musculoskeletal: Chronic back pain Derm: None - Past Surgical History Past Surgical History: Yes HEENT: Tonsil/Adenoidectomy - Present Medications Home Medications: Ambulatory Orders Medication Instructions Recorded Confirmed Citalopram [CeleXA] 40 mg ORAL DAILY #30 tablet 04/28/17 07/09/20 Metoprolol Succinate [Toprol Xl] 25 mg PO DAILY #30 tablet 04/28/17 07/09/20 Gabapentin [Neurontin] 300 mg PO 0900,1700 #60 capsule 05/19/19 Albuterol Sulf [Ventolin Hfa 1 - 2 puffs INH Q4HR PRN #1 inhaler 07/07/19 07/09/20 Inhaler] Gabapentin [Neurontin] 300 mg PO TID PRN #20 capsule 07/07/19 07/09/20 - Allergies Allergies/Adverse Reactions: Allergies Allergy/AdvReac Type Severity Reaction Status Date / Time No Known Drug Allergies Allergy Verified 08/07/20 08:09 - Social History Does the pt smoke?: Yes Smoking Status: Current every day smoker Does the pt drink ETOH?: No Does the pt have substance abuse?: Yes Substance Use and Type: Marijuana - Immunizations Immunizations are current?: Yes - POLST Patient has POLST: Yes POLST Status: DNR PD ED PE NORMAL - Vitals Vital signs reviewed: Yes - General General: Alert and oriented X 3, No acute distress, Well developed/nourished - HEENT HEENT: Atraumatic, PERRL, EOMI, Other (Right brow line with [address] lac well healed. no infection) - Neuro Neuro: Alert and oriented X 3 - Psych Psych: Normal mood, Normal affect Results - Vitals Vitals: Vital Signs - 24 hr 08/07/20 08:09 Temperature 36.6 C Oxygen O2 Source Room air Procedures - General procedure General procedure: Right eyebrow suture removal completed. 4 stitches removed without incident. EBL 0. Patient tolerated well PD MEDICAL DECISION MAKING - ED course ED course: 60-year-old man presented for suture removal. Completed uncomplicated. No signs of infection. Return precautions given. Departure - Departure Disposition: 01 Home, Self Care Clinical Impression: Visit for suture removal Condition: Good Instructions: ED Wound Check Sutr Remove No Infec Comments: You are seen in the emergency department for suture removal. 4 stitches were taken out without issues. Return to the emergency department if you have any other concerns.
== END 2020-08-07 08:25 | disposition home or self-care (01) ==
LOC: ED 08:01
DX: S01.111D Laceration without foreign body of right eyelid and periocular area, subsequent encounter (principal); X58.XXXD Exposure to other specified factors, subsequent encounter; I10 Essential (primary) hypertension; F17.200 Nicotine dependence, unspecified, uncomplicated; Z66 Do not resuscitate
CPT/HCPCS: 99282

== ENCOUNTER 2020-08-11 18:19 | Outpatient (CLI) | payer MEDICAID | END 2020-08-11 18:20 | disposition EMS.NT | LOC: EMS 18:19 | DX: R04.0 Epistaxis (principal) ==

== ENCOUNTER 2020-09-15 15:16 | Outpatient (CLI) | payer MEDICAID | END 2020-09-15 15:17 | disposition critical access hospital (66) | LOC: EMS 15:16 | DX: F41.9 Anxiety disorder, unspecified (principal); Z59.0 Homelessness | CPT/HCPCS: A0425; A0427; A0999 ==

== ENCOUNTER 2020-09-15 15:34 | Emergency (ER) | payer MEDICAID ==
--- NOTE | 2020-09-15 15:41 | ED Physician Documentation ---
PD HPI DYSPNEA - Stated complaint Stated Complaint: AFIB/ANXIETY - History obtained from History obtained from: Patient, EMS - History of Present Illness Timing - onset: Today Timing - onset during: Light activity (he feels that his heart is going fast, feels some dyspnea with some wheezing. Anxious. Did not have his metoprolol dose today as it is at [employer] and not with him. Has regular alcohol use and declines desire to do alcohol treatment/detox.) Timing - details: Gradual onset, Still present, Waxing and waning Inciting event(s): No: Out of meds, URI Improved by: Rest Worsened by: Coughing Associated symptoms: Cough (chronic), Wheezing, Palpitations (feeling heart is going fast today, he feels he is in atrial fib, which he gets periodically.). No: Fever, Chest pain / discomfort, Bilateral edema Similar symptoms before: Diagnosis (atrial fib and asthma.) Recently seen: Not recently seen Review of Systems Constitutional: denies: Fever, Chills Nose: denies: Rhinorrhea / runny nose, Congestion Throat: denies: Sore throat Cardiac: reports: Palpitations. denies: Chest pain / pressure, Pedal edema, Calf pain Respiratory: reports: Dyspnea, Cough. denies: Wheezing GI: denies: Abdominal Pain, Nausea, Vomiting, Diarrhea Skin: denies: Rash, Lesions Neurologic: reports: Generalized weakness. 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 : Benign prostate hypertrophy, Nocturia, Frequency HEENT: Chronic vision loss, Chronic sinusitis Psych: Depression, Anxiety Musculoskeletal: Chronic back pain Derm: None - Past Surgical History Past Surgical History: Yes HEENT: Tonsil/Adenoidectomy - Present Medications Home Medications: Ambulatory Orders Medication Instructions Recorded Confirmed Gabapentin [Neurontin] 300 mg PO 0900,1700 #60 capsule 05/19/19 Albuterol Sulf [Ventolin Hfa 1 - 2 puffs INH Q4HR PRN #1 inhaler 07/07/19 09/15/20 Inhaler] Gabapentin [Neurontin] 300 mg PO TID PRN #20 capsule 07/07/19 07/09/20 Citalopram [CeleXA] 30 mg ORAL TID 09/15/20 09/15/20 LORazepam [Ativan] 1 mg PO BID PRN #12 tablet 09/15/20 Metoprolol Succinate [Toprol Xl] 20 mg PO BID 09/15/20 09/15/20 Metoprolol Succinate [Toprol Xl] 25 mg PO BID #20 tablet 09/15/20 Ondansetron Odt [Zofran] 4 mg TL Q6H PRN #10 tablet 09/15/20 - Allergies Allergies/Adverse Reactions: Allergies Allergy/AdvReac Type Severity Reaction Status Date / Time No Known Drug Allergies Allergy Verified 09/15/20 15:50 - Social History Does the pt smoke?: Yes Smoking Status: Current every day smoker Does the pt drink ETOH?: No Does the pt have substance abuse?: Yes - Immunizations Immunizations are current?: Yes - POLST Patient has POLST: Yes POLST Status: DNR PD ED PE NORMAL - Vitals Vital signs reviewed: Yes - General General: Alert and oriented X 3, No acute distress. No: Well developed/nourished (unkempt, ungroomed owens. dirty clothing. Smell of alcohol and cigarettes on breath. ) - HEENT HEENT: Atraumatic, Pharynx benign - Neck Neck: Supple, no meningeal sign, No adenopathy - Cardiac Cardiac: No murmur. No: RRR (regular but tachycardic. ) - Respiratory Respiratory: No respiratory distress, Clear bilaterally - Abdomen Abdomen: Soft, Non tender - Derm Derm: Normal color, Warm and dry - Extremities Extremities: No tenderness to palpate, Normal ROM s pain, No edema, No calf tenderness / cord - Neuro Neuro: Alert and oriented X 3, No motor deficit, No sensory deficit, Normal speech Results - Vitals Vitals: Vital Signs - 24 hr 09/15/20 09/15/20 09/15/20 15:36 15:55 16:19 Temperature 37.2 C Heart Rate 125 H 126 H Respiratory 30 H 25 H Rate Blood Pressure 111/98 H 136/93 H O2 Saturation 82 L 94 09/15/20 09/15/20 17:26 17:47 Temperature Heart Rate 94 100 Respiratory 28 H 27 H Rate Blood Pressure 133/81 H 116/84 H O2 Saturation 96 92 Oxygen O2 Source Nasal cannula - EKG (time done) 16:30 Rate: Rate (enter#) (94) Rhythm: NSR [place]: Normal Intervals: Normal NC QRS: Normal Ischemia: Normal ST segments. No: ST elevation c/w ischemia, ST depression Compare to prior EKG: Unchanged from prior EKG - Labs Labs: Laboratory Tests 09/15/20 09/15/20 09/15/20 16:22 16:22 16:24 WBC 14.7 H RBC 4.24 L Hgb 14.3 Hct 42.5 MCV 100.2 H MCH 33.7 H MCHC 33.6 RDW 14.1 Plt Count 206 MPV 9.4 Neut # (Auto) 13.7 H Lymph # (Auto) 0.3 L [place] # (Auto) 0.6 Eos # (Auto) 0.0 Baso # (Auto) 0.1 Absolute Nucleated RBC 0.00 Nucleated RBC % 0.0 Sodium 143 Potassium 3.4 L Chloride 105 Carbon Dioxide 24 Anion Gap 14.0 H BUN 11 Creatinine 0.6 Estimated GFR (MDRD) 138 Glucose 88 Calcium 8.1 L Magnesium 1.4 L Total Bilirubin 1.0 AST 34 ALT 23 Alkaline Phosphatase 64 Total Protein 7.3 Albumin 4.5 Globulin 2.8 Albumin/Globulin Ratio 1.6 Lipase 25 Salicylates < 6.0 Urine Opiates Screen NEGATIVE Ur Oxycodone Screen NEGATIVE Urine Methadone Screen NEGATIVE Ur Propoxyphene Screen NEGATIVE Acetaminophen < 10 L Ur Barbiturates Screen NEGATIVE Ur Tricyclics Screen NEGATIVE Ur Phencyclidine Scrn NEGATIVE Ur Amphetamine Screen NEGATIVE U Methamphetamines Scrn NEGATIVE U Benzodiazepines Scrn NEGATIVE Urine Cocaine Screen NEGATIVE U Cannabinoids Screen POSITIVE H Ethyl Alcohol 261.6 PD MEDICAL DECISION MAKING - ED course Complexity details: re-evaluated patient (he is feeling better with Metoprolol and Ativan. ), considered differential (is not in afib for EMS but is tachycardic. Also anxious. Has some shakiness, but would be less likely to be in withdrawal as BA likely still higher from drinking today. Consider co-ingestion but he denies other drugs.), d/w patient Departure - Departure Disposition: 01 Home, Self Care Clinical Impression: Alcoholism, Anxiety, Tachycardia Condition: Stable Record reviewed to determine appropriate education?: Yes Prescriptions: LORazepam [Ativan] 1 mg PO BID PRN #12 tablet PRN Reason: Anxiety Metoprolol Succinate [Toprol Xl] 25 mg PO BID #20 tablet Ondansetron Odt [Zofran] 4 mg TL Q6H PRN #10 tablet PRN Reason: Nausea / Vomiting Comments: You are not in A. fib at this point here in the ER. Your heart rate was a bit fast. You may have had an episode prior to arrival but is normal rhythm now. Continue with your metoprolol twice daily. Stay well-hydrated. Decrease alcohol use. Use lorazepam if needed for withdrawal symptoms and ondansetron if needed for nausea. Follow-up with detox in [place] if you so desire. Follow-up with your primary care. Discharge Date/Time: 09/15/20 18:27
[2020-09-15] MEDS ORDERED: METOPROLOL SUCCINATE 25 MG TABLET PO STA (16:11)
[2020-09-15] MEDS ORDERED: SODIUM CHLORIDE 0.9% 1,000 ML IV STA (16:12)
[2020-09-15] MEDS ORDERED: MAGNESIUM SULFATE 2 GRAM 2 GM/50 ML BAG IV ONE (16:12)
[2020-09-15] MEDS ORDERED: LORazepam 2 MG/ML VIAL IVP STA (16:12)
[2020-09-15] MEDS: METOPROLOL 5 MG/5 ML VIAL IVP STA ×2 (16:19→16:22)
[2020-09-15 16:26] LABS: BASOPHILS # (AUTO) 0.1 10^3/uL (0.0-0.1); BASOPHILS % (AUTO) 0.5 %; EOSINOPHILS % (AUTO) 0.1 %; HCT - HEMATOCRIT 42.5 % (42.0-52.0); HGB - HEMOGLOBIN 14.3 g/dL (14.0-18.0); LYMPHOCYTES # (AUTO) 0.3 10^3/uL (1.5-3.5); MEAN CORPUSCULAR HEMOGLOBIN 33.7 pg (27.0-31.0); MEAN CORPUSCULAR HGB CONC 33.6 g/dL (32.0-36.0); MEAN CORPUSCULAR VOLUME 100.2 fL (80.0-94.0); MEAN PLATELET VOLUME 9.4 fL (7.4-11.4); MONOCYTES # (AUTO) 0.6 10^3/uL (0.0-1.0); MONOCYTES % (AUTO) 3.7 %; NEUTROPHILS # (AUTO) 13.7 10^3/uL (1.5-6.6); NEUTROPHILS % (AUTO) 93.4 %; PLT - PLATELET COUNT 206 10^3/uL (130-450); RED BLOOD COUNT 4.24 10^6/uL (4.70-6.10); RED CELL DISTRIBUTION WIDTH 14.1 % (12.0-15.0); WHITE BLOOD COUNT 14.7 x10^3/uL (4.8-10.8)
[2020-09-15 16:40] LABS: ACETAMINOPHEN < 10 ug/mL (10-30); ALBUMIN 4.5 g/dL (3.2-5.5); ALBUMIN/GLOBULIN RATIO 1.6 (1.0-2.2); ALKALINE PHOSPHATASE 64 IU/L (42-121); ALT ALANINE AMINOTRANSFERASE 23 IU/L (10-60); AST ASPARTATE AMINOTRANSFERASE 34 IU/L (10-42); BUN - BLOOD UREA NITROGEN 11 mg/dL (6-20); CALCIUM 8.1 mg/dL (8.5-10.3); CARBON DIOXIDE - CO2 24 mmol/L (21-32); CHLORIDE 105 mmol/L (101-111); CREATININE 0.6 mg/dL (0.6-1.2); ETOH - ETHANOL 261.6 mg/dL; GFR - MDRD 138 (>89); GLUCOSE 88 mg/dL (70-100); LIPASE 25 U/L (22-51); MAGNESIUM 1.4 mg/dL (1.7-2.8); POTASSIUM 3.4 mmol/L (3.5-5.0); SALICYLATE < 6.0 mg/dL; SODIUM 143 mmol/L (135-145); TOTAL PROTEIN 7.3 g/dL (6.7-8.2)
[2020-09-15 16:52] LABS: MUDS CUTOFF CONCENTRATIONS CUTOFF CONC BELOW:
[2020-09-15 17:04] LABS: AMPHETAMINE SCREEN,URINE NEGATIVE (NEGATIVE); BARBITURATE SCREEN,UR NEGATIVE (NEGATIVE); BENZODIAZEPINES SCREEN, URINE NEGATIVE (NEGATIVE); COCAINE SCREEN URINE NEGATIVE (NEGATIVE); METHADONE SCREEN, URINE NEGATIVE (NEGATIVE); METHAMPHETAMINES SCREEN, URINE NEGATIVE (NEGATIVE); OPIATE SCREEN, URINE NEGATIVE (NEGATIVE); OXYCODONE SCREEN, URINE NEGATIVE (NEGATIVE); PROPOXYPHENE SCREEN, URINE NEGATIVE (NEGATIVE); THC CANNABINOID SCREEN, URINE POSITIVE (NEGATIVE); TRICYCLIC ANTIDEPRESSANT,URINE NEGATIVE (NEGATIVE)
[2020-09-15 17:47] VITALS: BP 116/84
== END 2020-09-15 18:27 | disposition home or self-care (01) ==
LOC: EDUNIT# → ED 15:34
DX: F10.20 Alcohol dependence, uncomplicated (principal); F41.9 Anxiety disorder, unspecified; R00.0 Tachycardia, unspecified; F17.200 Nicotine dependence, unspecified, uncomplicated; Z66 Do not resuscitate
CPT/HCPCS: 36415; 80053; 80306; 80307; 80320; 80329; 83690; 83735; 85025; 93005; 96365; 96375; 99284; A9270; J2060

== ENCOUNTER 2020-10-11 16:37 | Outpatient (CLI) | payer MEDICAID | END 2020-10-11 16:38 | disposition critical access hospital (66) | LOC: EMS 16:37 | DX: R53.1 Weakness (principal); R46.4 Slowness and poor responsiveness | CPT/HCPCS: A0425; A0429; A0999 ==

== ENCOUNTER 2020-10-11 17:03 | Emergency (ER) | payer MEDICAID ==
--- NOTE | 2020-10-11 17:34 | ED Physician Documentation ---
History of Present Illness - Stated complaint Stated Complaint: ETOH - Chief complaint Chief Complaint: General - Additonal information Additional information: 60-year-old male is brought to the emergency department via EMS after falling at the [facility]. He arrives smelling heavily of alcohol. He is quite disheveled and has poor hygiene. As patient appears intoxicated he is not a good historian but it does seem that he has had multiple falls recently. This being caf was closing and he [facility] [place] [facility] thus 911 was summoned and he arrives here. 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 : Benign prostate hypertrophy, Nocturia, Frequency HEENT: Chronic vision loss, Chronic sinusitis Psych: Depression, Anxiety Musculoskeletal: Chronic back pain Derm: None - Past Surgical History Past Surgical History: Yes HEENT: Tonsil/Adenoidectomy - Present Medications Home Medications: Ambulatory Orders Medication Instructions Recorded Confirmed Gabapentin [Neurontin] 300 mg PO 0900,1700 #60 capsule 05/19/19 Albuterol Sulf [Ventolin Hfa 1 - 2 puffs INH Q4HR PRN #1 inhaler 07/07/19 09/15/20 Inhaler] Gabapentin [Neurontin] 300 mg PO TID PRN #20 capsule 07/07/19 07/09/20 Citalopram [CeleXA] 30 mg ORAL TID 09/15/20 09/15/20 LORazepam [Ativan] 1 mg PO BID PRN #12 tablet 09/15/20 Metoprolol Succinate [Toprol Xl] 20 mg PO BID 09/15/20 09/15/20 Metoprolol Succinate [Toprol Xl] 25 mg PO BID #20 tablet 09/15/20 Ondansetron Odt [Zofran] 4 mg TL Q6H PRN #10 tablet 09/15/20 - Allergies Allergies/Adverse Reactions: Allergies Allergy/AdvReac Type Severity Reaction Status Date / Time No Known Drug Allergies Allergy Verified 10/11/20 17:16 - Social History Does the pt smoke?: Yes Smoking Status: Current every day smoker Does the pt drink ETOH?: No Does the pt have substance abuse?: Yes - Immunizations Immunizations are current?: Yes - POLST Patient has POLST: Yes POLST Status: DNR PD ED PE EXPANDED - General General: Alert, Other (disheveled) - Cardiac Cardiac: Regular Rate, Radial strong equal, Pedal strong equal, Cap refill < 2 sec - Respiratory Respiratory: Clear to ausultation marie. No: Distress, Labored - Abdomen Abdomen: Normal Bowel sounds. No: Tender to palpation - Derm Derm: Normal color, Warm and dry. No: Rash - Extremities Extremities: Normal. No: Deformity, Tenderness - Neuro Neuro: CNII-XII intact - GCS Eye Opening: Spontaneous Motor: Obeys Commands Verbal: Oriented Total: 15 Results - Vitals Vitals: Vital Signs - 24 hr 10/11/20 10/11/20 10/11/20 17:10 18:28 20:53 Temperature 36.2 C L 36.9 C Heart Rate 80 89 92 Respiratory 16 17 18 Rate Blood Pressure 129/93 H 98/69 119/66 O2 Saturation 95 94 92 Oxygen O2 Source Room air - Labs Labs: Laboratory Tests 10/11/20 10/11/20 17:27 17:27 WBC 7.3 RBC 3.68 L Hgb 12.4 L Hct 37.0 L MCV 100.5 H MCH 33.7 H MCHC 33.5 RDW 13.3 Plt Count 297 MPV 9.8 Neut # (Auto) 4.8 Lymph # (Auto) 1.6 [place] # (Auto) 0.7 Eos # (Auto) 0.1 Baso # (Auto) 0.1 Absolute Nucleated RBC 0.00 Nucleated RBC % 0.0 Sodium 142 Potassium 3.6 Chloride 105 Carbon Dioxide 25 Anion Gap 12.0 BUN 10 Creatinine 0.8 Estimated GFR (MDRD) 99 Glucose 115 H Calcium 8.1 L Total Bilirubin 0.6 AST 32 ALT 17 Alkaline Phosphatase 53 Total Protein 6.7 Albumin 3.5 Globulin 3.2 Albumin/Globulin Ratio 1.1 Lipase 36 - Rads (name of study) CT head Radiology: Final report received (No acute intracranial process) PD MEDICAL DECISION MAKING - ED course Complexity details: reviewed old records, re-evaluated patient, d/w patient ED course: 60-year-old homeless gentleman who has a longstanding history of alcohol abuse arrives to the emergency department after a fall [facility] [employer]. He does arrive smelling heavily of alcohol and does appear intoxicated. He has a superficial abrasion above his left forehead. However his history is difficult to obtain we will obtain a CT of the head rule out an intracranial process as well as some screening labs. It is likely that this gentleman needs time to metabolize and then reassess. 2200: Patient remains in the emergency department. He has been clinically stable and sleeping throughout the shift. Head CT is completed shows no acute process. Patient is waking up and is requesting something to drink. At this time he may require a little more time to metabolize before he is able to be discharged home. Given the late hour of the evening he need to remain until the a.m. He will be signed out to my colleague Dr. Hope for further evaluation overnight. Departure - Departure Clinical Impression: Alcohol intoxication Qualifiers: Complication of substance-induced condition: uncomplicated Qualified Code(s): F10.920 - Alcohol use, unspecified with intoxication, uncomplicated Falls Qualifiers: Encounter type: initial encounter Qualified Code(s): W19.XXXA - Unspecified fall, initial encounter Condition: Stable
[2020-10-11 17:37] LABS: BASOPHILS # (AUTO) 0.1 10^3/uL (0.0-0.1); EOSINOPHILS # (AUTO) 0.1 10^3/uL (0.0-0.7); EOSINOPHILS % (AUTO) 1.5 %; HGB - HEMOGLOBIN 12.4 g/dL (14.0-18.0); LYMPHOCYTES # (AUTO) 1.6 10^3/uL (1.5-3.5); LYMPHOCYTES % (AUTO) 21.7 %; MEAN CORPUSCULAR HEMOGLOBIN 33.7 pg (27.0-31.0); MEAN CORPUSCULAR HGB CONC 33.5 g/dL (32.0-36.0); MEAN CORPUSCULAR VOLUME 100.5 fL (80.0-94.0); MEAN PLATELET VOLUME 9.8 fL (7.4-11.4); MONOCYTES # (AUTO) 0.7 10^3/uL (0.0-1.0); MONOCYTES % (AUTO) 9.5 %; NEUTROPHILS # (AUTO) 4.8 10^3/uL (1.5-6.6); NEUTROPHILS % (AUTO) 65.9 %; PLT - PLATELET COUNT 297 10^3/uL (130-450); RED BLOOD COUNT 3.68 10^6/uL (4.70-6.10); RED CELL DISTRIBUTION WIDTH 13.3 % (12.0-15.0); WHITE BLOOD COUNT 7.3 x10^3/uL (4.8-10.8)
[2020-10-11 17:44] LABS: ALBUMIN 3.5 g/dL (3.2-5.5); ALBUMIN/GLOBULIN RATIO 1.1 (1.0-2.2); BILIRUBIN,TOTAL 0.6 mg/dL (0.2-1.0); CALCIUM 8.1 mg/dL (8.5-10.3); CREATININE 0.8 mg/dL (0.6-1.2); POTASSIUM 3.6 mmol/L (3.5-5.0); TOTAL PROTEIN 6.7 g/dL (6.7-8.2)
--- NOTE | 2020-10-11 17:55 | CT Report ---
PROCEDURE: HEAD WO INDICATIONS: etoh, fell TECHNIQUE: Noncontrast 4.5 mm thick angled axial sections acquired from the foramen magnum to the vertex. For r adiation dose reduction, the following was used: automated exposure control, adjustment of mA and/or kV according to patient size. COMPARISON: 05/09/2020 FINDINGS: Image quality: There is streak artifact seen through the skull base. CSF spaces: Basal cisterns are patent. No extra-axial fluid collections. Ventricles are normal in size and shape. Brain: No midline shift. No intracranial masses or hemorrhage. [place]-white matter interface is norm al. Skull and face: Apparent minimal left forehead hematoma can be seen. No underlying calvarial fracture can be seen. Calvarium and visualized facial bones are intact, without suspicious lesions. Sinuses: Visualized sinuses and mastoids are clear. IMPRESSION: No intracranial hemorrhage is seen. No significant intracranial abnormality is seen. Reviewed by: Aden Weiss MD on 10/11/2020 4:53 PM AKDT Approved by: Aden Weiss MD on 10/11/2020 4:53 PM AKDT Station ID: [id number]
--- NOTE | 2020-10-12 00:06 | ED Physician Documentation ---
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 He is resting comfortably in bed and states that he has no place to go tonight since [facility]. will continue to observe. 10/12/20 00:04 Patient with low O2 sat on monitor, in NAD. dyspneic when lying flat, stating this is c/w his copd. placed on 2 L nc with improvement. will obtain CXR given his history of falling today. 10/12/20 02:57 No acute findings on CXR. patient resting comfortably in bed in NAD. 10/12/20 03:24 10/12/20 04:27 Patient now awake, alert, clinically sober. planning bus transport. Impression 1. alcohol abuse 2. fall from standing 3. COPD
[2020-10-12 04:07] VITALS: BP 136/94
--- NOTE | 2020-10-12 07:55 | XRAY Report ---
PROCEDURE: Chest 1 View X-Ray INDICATIONS: fall from standing, copd TECHNIQUE: One view of the chest was acquired. COMPARISON: 09/15/2019 and 07/07/2019 FINDINGS: Surgical changes and devices: None. Lungs and pleura: No pleural effusions or pneumothorax. Lungs are clear. Lungs are hyperinflated s hifting COPD. Mediastinum: Mediastinal contours appear normal. Heart size is normal. Bones and chest wall: No suspicious bony lesions. Overlying soft tissues appear unremarkable. IMPRESSION: No acute cardiopulmonary disease process. Reviewed by: Coretta Carrera MD, PhD on 10/12/2020 7:54 AM PDT Approved by: Coretta Carrera MD, PhD on 10/12/2020 7:54 AM PDT Station ID: [id number]
== END 2020-10-12 04:35 | disposition home or self-care (01) ==
LOC: EDUNIT# → ED 17:03
DX: S00.81XA Abrasion of other part of head, initial encounter (principal); W19.XXXA Unspecified fall, initial encounter; F10.920 Alcohol use, unspecified with intoxication, uncomplicated; Z91.81 History of falling; Y92.511 Restaurant or cafe as the place of occurrence of the external cause; F17.200 Nicotine dependence, unspecified, uncomplicated; J44.9 Chronic obstructive pulmonary disease, unspecified
CPT/HCPCS: 36415; 80053; 80320; 83690; 85025; 99281; 99285

== ENCOUNTER 2020-11-10 17:20 | Outpatient (CLI) | payer MEDICAID | END 2020-11-10 17:21 | disposition EMS.NT | LOC: EMS 17:20 | DX: Z03.89 Encounter for observation for other suspected diseases and conditions ruled out (principal) ==

== ENCOUNTER 2020-12-08 18:47 | Outpatient (CLI) | payer MEDICAID | END 2020-12-08 18:48 | disposition EMS.NT | LOC: EMS 18:47 | DX: Z03.89 Encounter for observation for other suspected diseases and conditions ruled out (principal); Z59.01 Sheltered homelessness ==

== ENCOUNTER 2021-01-18 16:05 | Outpatient (CLI) | payer MEDICAID | END 2021-01-18 16:06 | disposition critical access hospital (66) | LOC: EMS 16:05 | DX: M79.605 Pain in left leg (principal); M79.604 Pain in right leg; R60.0 Localized edema | CPT/HCPCS: A0425; A0429; A0999 ==

== ENCOUNTER 2021-01-18 16:36 | Inpatient (IN) | payer MEDICAID ==
--- NOTE | 2021-01-18 16:41 | ED Physician Documentation ---
History of Present Illness - Stated complaint Stated Complaint: EDEMA/LEGS - History obtained from History obtained from: Patient - Additonal information Additional information: 60-year-old gentleman who has a complicated medical history, he has a history of CHF and his last echocardiogram which was May 2019 showed an EF of 20 to 25% with right ventricular systolic dysfunction. He also has a history of COPD, alcoholism, homelessness, paroxysmal A. fib. He presents by ambulance today for painful symmetric pedal edema of both legs for about 4 to 5 days. He is not currently on any diuretics. He denies chest pain. He denies acute shortness of breath but has some chronic shortness of breath. Review of Systems Ten Systems: 10 systems reviewed and negative Constitutional: denies: Fever, Chills, Fatigue Cardiac: reports: Pedal edema. denies: Chest pain / pressure, Palpitations, Calf pain Respiratory: reports: Dyspnea. 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 : Benign prostate hypertrophy, Nocturia, Frequency HEENT: Chronic vision loss, Chronic sinusitis Psych: Depression, Anxiety Musculoskeletal: Chronic back pain Derm: None - Past Surgical History Past Surgical History: Yes HEENT: Tonsil/Adenoidectomy - Present Medications Home Medications: Ambulatory Orders Medication Instructions Recorded Confirmed Gabapentin [Neurontin] 300 mg PO 0900,1700 #60 capsule 05/19/19 Albuterol Sulf [Ventolin Hfa 1 - 2 puffs INH Q4HR PRN #1 inhaler 07/07/19 09/15/20 Inhaler] Gabapentin [Neurontin] 300 mg PO TID PRN #20 capsule 07/07/19 07/09/20 Citalopram [CeleXA] 30 mg ORAL TID 09/15/20 09/15/20 LORazepam [Ativan] 1 mg PO BID PRN #12 tablet 09/15/20 Metoprolol Succinate [Toprol Xl] 20 mg PO BID 09/15/20 09/15/20 Metoprolol Succinate [Toprol Xl] 25 mg PO BID #20 tablet 09/15/20 Ondansetron Odt [Zofran] 4 mg TL Q6H PRN #10 tablet 09/15/20 - Allergies Allergies/Adverse Reactions: Allergies Allergy/AdvReac Type Severity Reaction Status Date / Time No Known Drug Allergies Allergy Verified 01/18/21 16:44 - Social History Does the pt smoke?: Yes Smoking Status: Current every day smoker Does the pt drink ETOH?: No Does the pt have substance abuse?: Yes - Immunizations Immunizations are current?: Yes - POLST Patient has POLST: Yes POLST Status: DNR PD ED PE NORMAL - Vitals Vital signs reviewed: Yes - General General: Alert and oriented X 3, No acute distress - HEENT HEENT: PERRL, EOMI, Other (Anicteric) - Neck Neck: Supple, no meningeal sign, No bony TTP - Cardiac Cardiac: RRR, No murmur - Respiratory Respiratory: No respiratory distress, Other (Slightly diminished at both bases, but relatively clear and nonlabored) - Abdomen Abdomen: Soft, Non tender - Back Back: No CVA TTP, No spinal TTP - Derm Derm: Normal color, Warm and dry - Extremities Extremities: Other (3-4+ pedal edema, to upper calf, symmetric) - Neuro Neuro: Alert and oriented X 3, Normal speech Results - Vitals Vitals: Vital Signs - 24 hr 01/18/21 16:33 Temperature 36.5 C Heart Rate 88 Respiratory 14 Rate Blood Pressure 105/84 H O2 Saturation 100 Oxygen O2 Source Room air - Labs Labs: Laboratory Tests 01/18/21 01/18/21 01/18/21 16:51 16:51 16:51 WBC 13.2 H RBC 4.00 L Hgb 13.4 L Hct 40.1 L MCV 100.3 H MCH 33.5 H MCHC 33.4 RDW 14.6 Plt Count 162 MPV 12.3 H Neut # (Auto) Not Reportable Lymph # (Auto) Not Reportable [place] # (Auto) Not Reportable Eos # (Auto) Not Reportable Baso # (Auto) Not Reportable Absolute Nucleated RBC Not Reportable Total Counted 100 Band Neuts % (Manual) 3 Reactive Lymphs % (Man) 3 Abnorm Lymph % (Manual) 0 Nucleated RBC % Not Reportable Neutrophils # (Manual) 10.6 H Lymphocytes # (Manual) 1.5 Monocytes # (Manual) 1.1 H Eosinophils # (Manual) 0.1 Basophils # (Manual) 0.0 Differential Comment MANUAL DIFFERENTIAL Platelet Estimate NORMAL (130-450,000) Platelet Morphology NORMAL APPEARANCE RBC Morph Micro Appear NORMAL APPEARANCE PT 28.5 H INR 2.6 H Sodium 128 L Potassium 5.3 H Chloride 90 L Carbon Dioxide 20 L Anion Gap 18.0 H BUN 61 H Creatinine 2.4 H Estimated GFR (MDRD) 28 L Glucose 77 Calcium 8.6 Phosphorus 6.3 H Magnesium 2.0 Total Bilirubin 3.8 H AST 4614 H ALT 2122 H Alkaline Phosphatase 301 H B-Natriuretic Peptide Total Protein 6.7 Albumin 3.8 Globulin 2.9 Albumin/Globulin Ratio 1.3 Ethyl Alcohol < 5.0 01/18/21 16:51 WBC RBC Hgb Hct MCV MCH MCHC RDW Plt Count MPV Neut # (Auto) Lymph # (Auto) [place] # (Auto) Eos # (Auto) Baso # (Auto) Absolute Nucleated RBC Total Counted Band Neuts % (Manual) Reactive Lymphs % (Man) Abnorm Lymph % (Manual) Nucleated RBC % Neutrophils # (Manual) Lymphocytes # (Manual) Monocytes # (Manual) Eosinophils # (Manual) Basophils # (Manual) Differential Comment Platelet Estimate Platelet Morphology RBC Morph Micro Appear PT INR Sodium Potassium Chloride Carbon Dioxide Anion Gap BUN Creatinine Estimated GFR (MDRD) Glucose Calcium Phosphorus Magnesium Total Bilirubin AST ALT Alkaline Phosphatase B-Natriuretic Peptide 3878 H Total Protein Albumin Globulin Albumin/Globulin Ratio Ethyl Alcohol - Rads (name of study) Single view chest x-ray demonstrates cardiomegaly and mild pulmonary edema Radiology: EMP read contemporaneously PD MEDICAL DECISION MAKING - ED course ED course: 60-year-old gentleman presents with pedal edema of both legs, given the findings I think it is most likely related to right heart failure, less likely would be cirrhosis. It is not consistent with DVT given the symmetric nature of it. He is not currently on any diuretics. 60-year-old gentleman presents with pedal edema which based on history is likely due to right-sided. He has suggestive significant hepatopathy which is likely a combination of alcoholic, history of hep C, and congestive hepatopathy as well as renal insufficiency. Looks like he had a similar admission where he was here for about a week in November 2 years ago. He appears well though and is not hypoxic. Given the above findings he was presented to Dr. Thomason for admission at 6:17 PM. Departure - Departure Disposition: 66 [facility] DC/Xfer Clinical Impression: Acute on chronic systolic and diastolic heart failure, NYHA class 4, Nicotine dependence, Elevated LFTs, ESTEVAN (acute kidney injury), Hepatitis C Condition: Serious
[2021-01-18 16:56] LABS: BASOPHILS % (AUTO) 0.4 %; EOSINOPHILS % (AUTO) 0.3 %; HCT - HEMATOCRIT 40.1 % (42.0-52.0); HGB - HEMOGLOBIN 13.4 g/dL (14.0-18.0); LYMPHOCYTES % (AUTO) 12.1 %; MEAN CORPUSCULAR HEMOGLOBIN 33.5 pg (27.0-31.0); MEAN CORPUSCULAR HGB CONC 33.4 g/dL (32.0-36.0); MEAN CORPUSCULAR VOLUME 100.3 fL (80.0-94.0); MEAN PLATELET VOLUME 12.3 fL (7.4-11.4); MONOCYTES % (AUTO) 11.6 %; NEUTROPHILS % (AUTO) 74.7 %; PLT - PLATELET COUNT 162 10^3/uL (130-450); RED CELL DISTRIBUTION WIDTH 14.6 % (12.0-15.0); WHITE BLOOD COUNT 13.2 x10^3/uL (4.8-10.8)
[2021-01-18 16:57] LABS: ABNORMAL LYMPHS % (MANUAL) 0 %
[2021-01-18 17:08] LABS: INR 2.6 (0.8-1.2); PT - PROTHROMBIN TIME 28.5 secs (9.9-12.6)
--- NOTE | 2021-01-18 17:13 | XRAY Report ---
PROCEDURE: Chest 1 View X-Ray INDICATIONS: Pedal edema TECHNIQUE: One view of the chest was acquired. COMPARISON: 10/12/2020 FINDINGS: Enlarged cardiac mediastinal silhouette. Mildly increased pulmonary vascular markings. No focal airsp helena opacity. No pleural effusion or pneumothorax. IMPRESSION: Cardiomegaly with increased pulmonary vascular markings suggestive of pulmonary edema. Reviewed by: Kamran Lam MD on 01/18/2021 5:12 PM PST Approved by: Kamran Lam MD on 01/18/2021 5:12 PM PST Station ID: [id number]
[2021-01-18 17:14] LABS: BAND NEUTROPHILS % (MANUAL) 3 %; EOSINOPHILS # (MANUAL) 0.1 10^3/uL (0-0.7); LYMPHOCYTES # (MANUAL) 1.5 10^3/uL (1.5-3.5); LYMPHOCYTES % (MANUAL) 8 %; MONOCYTES # (MANUAL) 1.1 10^3/uL (0.0-1.0); NEUTROPHILS # (MANUAL) 10.6 10^3/uL (1.5-6.6); PLATELET ESTIMATE, MANUAL NORMAL (130-450,000) (NORMAL); PLATELET MORPHOLOGY NORMAL APPEARANCE (NORMAL); RBC MORPHOLOGY (MULTIPLE) NORMAL APPEARANCE (NORMAL); REACTIVE LYMPHS % (MANUAL) 3 %
[2021-01-18 17:15] LABS: DIFFERENTIAL COMMENT MANUAL DIFFERENTIAL
[2021-01-18 18:06] LABS: ALBUMIN 3.8 g/dL (3.2-5.5); ALBUMIN/GLOBULIN RATIO 1.3 (1.0-2.2); ALKALINE PHOSPHATASE 301 IU/L (42-121); ALT ALANINE AMINOTRANSFERASE 2122 IU/L (10-60); AST ASPARTATE AMINOTRANSFERASE 4614 IU/L (10-42); BILIRUBIN,TOTAL 3.8 mg/dL (0.2-1.0); BUN - BLOOD UREA NITROGEN 61 mg/dL (6-20); CALCIUM 8.6 mg/dL (8.5-10.3); CARBON DIOXIDE - CO2 20 mmol/L (21-32); CHLORIDE 90 mmol/L (101-111); CREATININE 2.4 mg/dL (0.6-1.2); ETOH - ETHANOL < 5.0 mg/dL; GFR - MDRD 28 (>89); GLUCOSE 77 mg/dL (70-100); PHOSPHORUS 6.3 mg/dL (2.5-4.6); POTASSIUM 5.3 mmol/L (3.5-5.0); SODIUM 128 mmol/L (135-145); TOTAL PROTEIN 6.7 g/dL (6.7-8.2)
[2021-01-18] MEDS ORDERED: FUROSEMIDE 40 MG/4 ML VIAL IVP STA (18:12)
[2021-01-18] MEDS ORDERED: MORPHINE 2 MG/ML CARPUJECT IVP STA (18:12)
[2021-01-18] MEDS ORDERED: IBUPROFEN 400 MG TABLET PO PRN (18:18)
[2021-01-18] MEDS ORDERED: ONDANSETRON ODT 4 MG TABLET TL PRN (18:18)
[2021-01-18] MEDS ORDERED: ALBUTEROL NEB 2.5 MG/3 ML INH PRN (18:31)
[2021-01-18] MEDS ORDERED: FUROSEMIDE 20 MG/2 ML VIAL IVP SCH (19:00)
[2021-01-18] MEDS: SODIUM CHLORIDE FLUSH 0.9% 10 ML SYRINGE IVP PRN ×2 (19:20→22:19)
[2021-01-18] MEDS: oxyCODONE 5 MG TABLET PO PRN (19:20)
--- NOTE | 2021-01-18 19:37 | HISTORY & PHYSICAL EXAMINATION ---
Chief Complaint - Chief Complaint Chief Complaint: Leg pain and edema History of Present Illness - Admitted From Admitted From:: ER - History Obtained From Records Reviewed: Yes History obtained from: Patient, EMR - History of Present Illness HPI Comment/Other: This 60-year-old male with a past medical history significant for chronic systolic heart failure, peripheral neuropathy, paroxysmal atrial ablation who presents today complaining of worsening leg pain and edema for the past 3 days. He reports he had been doing well up until 3 days ago when his leg started to become edematous and then he started to have pain in his legs and feet. He re ports having chronic neuropathy for which he takes gabapentin but his pain is much worse since the edema began. He reports having no edema at baseline and that this is new over just the past 3 days. He states he is not on Lasix at home and his only medications are metoprolol, Celexa, gabapentin. He has not seen a primary care physician in over 1 year and has not seen a funeral home associate in even longer period of time. He currently lives at a homeless residential. He has had exertional dyspnea over the past few days but denies chest pain, orthopnea. He has had a nonproductive cough but he attributes this to bronchitis that he had a couple of weeks ago. He continues to smoke a pack a day. He also drinks almost 1/5 of liquor each day but has not drank for the past week. He reports no changes in his medications and denies any herbal supplements. He denies ever being told he has a history of hepatitis B or C. He also denies any history of IV drug use. His states that his legs have become purple over the past day or 2 and only began after the edema started. We discussed goals of care and he confirmed that he is a DNR but he is okay with mechanical ventilation if necessary. 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 He currently lives at a homeless residential. He consumes nearly 1/5 of liquor each day but has not drank for the past week and he has been doing this for many decades now. He denies any drug use. He continues to smoke a pack per day and has been smoking for 30+ years. - Substance History Use: Uses substance without health or social issues: Tobacco, Alcohol - POLST Patient has POLST: Yes POLST Status: DNR Meds/Allgy - Home Medications Home Medications: Ambulatory Orders Medication Instructions Recorded Confirmed Gabapentin [Neurontin] 300 mg PO 0900,1700 #60 capsule 05/19/19 Albuterol Sulf [Ventolin Hfa 1 - 2 puffs INH Q4HR PRN #1 inhaler 07/07/19 09/15/20 Inhaler] Gabapentin [Neurontin] 300 mg PO TID PRN #20 capsule 07/07/19 07/09/20 Citalopram [CeleXA] 30 mg ORAL TID 09/15/20 09/15/20 LORazepam [Ativan] 1 mg PO BID PRN #12 tablet 09/15/20 Metoprolol Succinate [Toprol Xl] 20 mg PO BID 09/15/20 09/15/20 Metoprolol Succinate [Toprol Xl] 25 mg PO BID #20 tablet 09/15/20 Ondansetron Odt [Zofran] 4 mg TL Q6H PRN #10 tablet 09/15/20 - Allergies Allergies/Adverse Reactions: Allergies Allergy/AdvReac Type Severity Reaction Status Date / Time No Known Drug Allergies Allergy Verified 01/18/21 16:44 Review of Systems - Constitutional Constitutional: denies: Fatigue, Fever, Chills, Poor appetite - Ears, Nose & Throat Ears, Nose & Throat: denies: Nasal discharge, Nasal congestion, Sore throat - Cardiovascular Cariovascular: reports: Edema, Lightheadedness, Exertional dyspnea, Decr. exercise tolerance. denies: Chest pain - Respiratory Respiratory: reports: Cough, SOB with exertion. denies: Sputum production, Orthopnea, SOB at rest - Gastrointestinal Gastrointestinal: denies: Abdominal pain, Diarrhea, Nausea, Vomiting - Genitourinary Genitourinary: denies: Dysuria, Frequency, Urgency, Hematuria - Integumentary Integumentary: denies: Rash - Neurological Neurological: reports: Dizziness, Numbness. denies: Focal weakness, Headache - Hematologic/Lymphatic Hematologic/Lymphatic: denies: Bleeding tendencies - All Other Systems All Other Systems: reports: Reviewed and negative Prior Level of Functionality: He is homeless but independent with his ADLs. Exam - Vital Signs Reviewed Vital Signs: Yes Vital Signs: Vital Signs x48h Temp Pulse Resp BP Pulse Ox 01/18/21 18:43 87 19 92/72 99 01/18/21 16:33 36.5 C 88 14 105/84 H 100 - Physical Exam General Appearance: positive: No acute distress, Alert Eyes Bilateral: negative: No scleral icterus ENT: positive: ENT inspection nml Neck: positive: Nml inspection Respiratory: positive: No respiratory distress, Other (Crackels bilaterally and diminished breath sounds.) Abdomen: positive: Non-tender, No distention. negative: Tenderness Skin: positive: Warm, Dry Extremities: positive: Pedal edema (+3 pitting edema in bilateral lower extremities.), Other (His extremities are cool to touch distally with diminished pulses. Sensation intact.) Neurologic/Psychiatric: positive: Motor nml. negative: Disoriented to person, Disoriented to place Conclusion/Plan - Problem List (1) Acute on chronic systolic and diastolic heart failure, NYHA class 4 Conclusion/Plan: He is in acute congestive heart failure. Last echocardiogram available revealed an ejection fraction less than 20%. His BNP is nearly 4000 and he has lower extremity edema as well as pulmonary vascular congestion on imaging. We will place him on 60 mg of IV Lasix daily. Fluid restriction. Low-sodium diet. Daily weights and strict I's and O's. We will repeat an echocardiogram on Thursday. We will also order an arterial duplex given his lower extremities are cool to touch with diminished pulses. (2) Hepatitis Conclusion/Plan: His LFTs are significantly elevated and his INR is 2.5. This could be multifact orial secondary to alcohol use, congestive hepatopathy, or hepatitis. His mattress discriminant function is 77 points. We will hold off on prednisone at this time until we ensure there is no evidence of chronic hepatitis C or B infection. We will trend his LFTs daily. (3) ESTEVAN (acute kidney injury) Conclusion/Plan: His creatinine is elevated at 2.4 compared to his baseline of 0.8. This is likely secondary to acute on chronic congestive heart failure. We will begin to diurese him with Lasix 60 mg IV daily. Avoid nephrotoxins. Monitor urine output and renal function closely. I am expecting that his renal function will improve with diuresis. (4) Hyponatremia Conclusion/Plan: This is hypervolemic hyponatremia secondary to his congestive heart failure. His sodium is decreased at 128. This should improve with diuresis. Recheck BMP in the morning. Fluid restriction. (5) COPD (chronic obstructive pulmonary disease) Conclusion/Plan: Stable and not in exacerbation. Continue with albuterol as needed. (6) Paroxysmal atrial fibrillation Conclusion/Plan: He is currently in a sinus rhythm. He is not on anticoagulation at home. We will continue his home metoprolol. - Lab Results Lab results reviewed: Yes Gonzalo Bones: 01/18/21 16:51 01/18/21 21:59 - Diagnostic Imaging Results Diagnostic Imaging Results: positive: Final report reviewed - EKG Results EKG Interpreted Independently: Yes EKG Comparison: Unchanged from prior EKG EKG Findings: EKG shows a sinus rhythm with PACs and a prolonged QT interval. Core Measures - Anticipated LOS I expect patient to be DC'd or transferred within 96 hours.: Yes - Issues Hospital Issues and Management Plan: 60-year-old male with history of chronic systolic heart failure presents with dyspnea and lower extremity edema found to be in congestive heart failure and he also has acute kidney injury as well as acute otitis. We will admit him for IV diuresis. - DVT/VTE - Prophylaxis VTE/DVT Device ordered at admit?: Yes VTE/DVT Prophylaxis med ordered at admit?: No
[2021-01-18 19:43] LABS: B. PARAPERTUSSIS- RESP PCR PAN NOT DETECTED; B. PERTUSSIS- RESP PCR PANEL NOT DETECTED; C. PNEUMONIAE- RESP PCR PANEL NOT DETECTED; CORONAVIRUS 229E-RESP PCR NOT DETECTED; CORONAVIRUS HKU1-RESP PCR NOT DETECTED; CORONAVIRUS NL63-RESP PCR NOT DETECTED; CORONAVIRUS OC43-RESP PCR NOT DETECTED; HUMAN METAPNEUMOVIRUS NOT DETECTED; INFLUENZA A- RESP PCR PANEL NOT DETECTED; INFLUENZA B - RESP PCR PANEL NOT DETECTED; M. PNEUMONIAE- RESP PCR PANEL NOT DETECTED; PARAINFLUENZA VIRUS 1 NOT DETECTED; PARAINFLUENZA VIRUS 2 NOT DETECTED; PARAINFLUENZA VIRUS 3 NOT DETECTED; PARAINFLUENZA VIRUS 4 NOT DETECTED; RHINOVIRUS/ENTEROVIRUS NOT DETECTED; RSV- RESP PCR PANEL NOT DETECTED; SARS-CoV-2 -RESP PCR PANEL NOT DETECTED
--- NOTE | 2021-01-18 20:39 | ADVANCE CARE PLANNING NOTE ---
Advance Care Planning - Planning Encounter Date: 01/18/21 Time: 19:45 Purpose: To discuss goals of care. Parties in Attendance: The patient and myself. Decisional Capacity of the Patient: He has the capacity to make his own medical decisions. - Diagnosis for Encounter (1) Acute on chronic systolic and diastolic heart failure, NYHA class 4 Summary: He is admitted with acute on chronic systolic heart failure. He is significantly volume overloaded and will need extensive diuresis. This is compounded by his acute hepatitis and acute kidney injury. 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 He currently resides at homeless [facility] ([facility]) where he has been now for a couple of years. Objective/Medical Story: He presents now with worsening lower extremity edema and pain and found to be in acute heart failure. He has known history of heart failure with reduced ejection fraction EF 20%. He is not on any diuretics at home. He will be admitted for this and treated with IV Lasix. He also has acute kidney injury and hepatitis given his elevated LFTs and INR. Goals of Care: He would like to be a DNR but is okay with mechanical ventilation. He is agreeable to any treatment necessary but does not ever want to be resuscitated. He is also agreeable to palliative care consult. He states that he was on hospice in the past but is not sure if he was followed by palliative care. Plan: The plan is to diurese him with IV Lasix in hopes that his dyspnea will improve as well as acute kidney injury. His hepatitis may be secondary to congestive hepatopathy but we will evaluate this further with hepatitis panel. If this is from his alcohol use then he will need prednisone given his elevated discriminant factor score. We will consult palliative care. Additional Discussion: We discussed what entails of CPR or mechanical ventilation. We also discussed the role of palliative care and how it differs compared to hospice. Code Status: Do Not Attempt Resuscitation Time spent on advance care plannin
[2021-01-18] MEDS ORDERED: METOPROLOL TARTRATE 25 MG TABLET PO SCH (21:00)
[2021-01-18 22:15] LABS: CALCIUM 8.2 mg/dL (8.5-10.3); CREATININE 2.4 mg/dL (0.6-1.2); POTASSIUM 4.9 mmol/L (3.5-5.0)
[2021-01-18] MEDS: MORPHINE 2 MG/ML CARPUJECT IVP PRN (22:19)
[2021-01-18] MEDS: GABAPENTIN 300 MG CAPSULE PO SCH (22:54)
[2021-01-19] MEDS: oxyCODONE 5 MG TABLET PO PRN ×4 (00:28→23:43)
[2021-01-19] MEDS: SODIUM CHLORIDE FLUSH 0.9% 10 ML SYRINGE IVP SCH ×3 (00:30→16:52)
--- NOTE | 2021-01-19 01:13 | Ultrasound Report ---
PROCEDURE: Duplex Lwr Ext Arterial Bilat INDICATIONS: Diminished pulses. Edema. TECHNIQUE: Color and pulse Doppler interrogation was performed of both lower extremity arterial systems, with im age documentation. COMPARISON: None FINDINGS: Right lower extremity: Common femoral artery: 54 cm/sec, with triphasic flow. Deep femoral artery: 51.8 cm/sec, with monophasic flow. Proximal superficial femoral artery: 61.9 cm/sec, with triphasic flow. Mid superficial femoral artery: 91.9 cm/sec, with triphasic flow. Distal superficial femoral artery: 37.4 cm/sec, with triphasic flow. Popliteal artery: 39.1 cm/sec, with triphasic flow. Posterior tibial artery: 32.7 cm/sec, with biphasic flow. Anterior tibial artery/dorsalis pedis: 19/110 cm/sec, with biphasic/monophasic flow. Salcido-scale imaging description: Scattered calcified plaques. Left lower extremity: Common femoral artery: 52.6 cm/sec, with triphasic flow. Deep femoral artery: 20 cm/sec, with biphasic flow. Proximal superficial femoral artery: 50.9 cm/sec, with triphasic flow. Mid superficial femoral artery: 36 cm/sec, with triphasic flow. Distal superficial femoral artery: 107 cm/sec, with triphasic flow. Popliteal artery: 27.9 cm/sec, with biphasic flow. Posterior tibial artery: 144.9 cm/sec, with biphasic flow. Anterior tibial artery/dorsalis pedis: 14.3/13.7 cm/sec, with biphasic/biphasic flow. Salcido-scale imaging description: Scattered calcified plaque. IMPRESSION: 1. No acute thrombosis. 2. Elevated velocities in the left distal SFA and left REPORT DEVELOPER suggest stenosis. 3. There is flow to the ankles and feet bilaterally with biphasic waveforms. Reviewed by: Edward Amaya on 01/19/2021 1:12 AM PST Approved by: Edward Amaya on 01/19/2021 1:12 AM PST Station ID: [id number]
[2021-01-19] MEDS: MORPHINE 2 MG/ML CARPUJECT IVP PRN ×4 (03:29→20:36)
[2021-01-19 06:39] LABS: BASOPHILS # (AUTO) 0.1 10^3/uL (0.0-0.1); BASOPHILS % (AUTO) 0.9 %; EOSINOPHILS # (AUTO) 0.2 10^3/uL (0.0-0.7); EOSINOPHILS % (AUTO) 1.6 %; HCT - HEMATOCRIT 39.1 % (42.0-52.0); HGB - HEMOGLOBIN 13.1 g/dL (14.0-18.0); LYMPHOCYTES # (AUTO) 1.6 10^3/uL (1.5-3.5); LYMPHOCYTES % (AUTO) 15.7 %; MEAN CORPUSCULAR HEMOGLOBIN 33.9 pg (27.0-31.0); MEAN CORPUSCULAR HGB CONC 33.5 g/dL (32.0-36.0); MEAN PLATELET VOLUME 12.9 fL (7.4-11.4); MONOCYTES # (AUTO) 1.5 10^3/uL (0.0-1.0); MONOCYTES % (AUTO) 14.3 %; NEUTROPHILS # (AUTO) 6.9 10^3/uL (1.5-6.6); NEUTROPHILS % (AUTO) 66.5 %; PLT - PLATELET COUNT 133 10^3/uL (130-450); RED BLOOD COUNT 3.87 10^6/uL (4.70-6.10); RED CELL DISTRIBUTION WIDTH 14.7 % (12.0-15.0); WHITE BLOOD COUNT 10.4 x10^3/uL (4.8-10.8)
[2021-01-19 06:58] LABS: ALBUMIN 3.4 g/dL (3.2-5.5); BILIRUBIN,DIRECT 1.4 mg/dL (0.1-0.5); BILIRUBIN,TOTAL 2.8 mg/dL (0.2-1.0); CALCIUM 8.1 mg/dL (8.5-10.3); CREATININE 2.3 mg/dL (0.6-1.2); POTASSIUM 5.3 mmol/L (3.5-5.0)
[2021-01-19] MEDS: FUROSEMIDE 40 MG/4 ML VIAL IVP SCH (09:16)
[2021-01-19] MEDS: MULTIVITAMIN TABLET PO SCH (09:19)
[2021-01-19] MEDS: THIAMINE 100 MG TABLET PO SCH (09:19)
[2021-01-19] MEDS: METOPROLOL SUCCINATE 25 MG TABLET PO SCH ×2 (10:29→20:34)
--- NOTE | 2021-01-19 11:07 | PHARMACY PROGRESS NOTE ---
- Best Possible Medication History Admit Date and Time: 01/18/211817 Processed by: Pharmacy Medication History completed: Yes Patient Interview: Completed Secondary Source(s): Prescription bottles, Pharmacy records As the person ultimately responsible for medication therapy, providers are able to order a medication from an existing home medication list in [facility] via the "Reconcile Routine" prior to Confirmation of that medication by network desktop support specialist. Such practice is discouraged except when the physician, in their clinical judgment, deems that a medical need exists for a medication without regard to previous use.
[2021-01-19] MEDS: ONDANSETRON 4 MG/2 ML VIAL IVP PRN ×2 (16:52→23:45)
--- NOTE | 2021-01-19 17:09 | PROVIDER PROGRESS NOTE ---
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 Homeless. Has difficulty accessing medications and regular care but he does see a primary care provider when he can. He states that his legs really hurt. He would like to have increased opioids for that. In the outpatient setting he takes gabapentin. Drinks regularly. While here he has been getting morphine IV push as needed and he is also asking for his oxycodone as needed. I explained to him that he already has an at risk lifestyle. And combining opiates to control his pain is probably not a good idea considering he will be getting this in the outpatient setting. Current Medications - Current Medications Current Medications: Active Medications Albuterol (Albuterol Neb 2.5 Mg/3 Ml) 2.5 mg INH RTQ4H PRN PRN Reason: Wheezing Furosemide (Furosemide 40 Mg/4 Ml Vial) 60 mg IVP DAILY [facility] Last Admin: 01/19/21 09:16 Dose: 60 mg Documented by: Gabapentin (Gabapentin 300 Mg Capsule) 600 mg PO QPM [facility] Last Admin: 01/18/21 22:54 Dose: 600 mg Documented by: Metoprolol Succinate (Metoprolol Succinate 25 Mg Tablet) 12.5 mg PO BID [facility] Last Admin: 01/19/21 10:29 Dose: 12.5 mg Documented by: Morphine Sulfate (Morphine 2 Mg/Ml Carpuject) 1 mg IVP Q4HR PRN PRN Reason: PAIN Last Admin: 01/19/21 16:52 Dose: 1 mg Documented by: Multivitamins (Multivitamin Tablet) 1 tab PO DAILYWM [facility] Last Admin: 01/19/21 09:19 Dose: 1 tab Documented by: Ondansetron HCl (Ondansetron Odt 4 Mg Tablet) 4 mg TL Q6HR PRN PRN Reason: Nausea / Vomiting Ondansetron HCl (Ondansetron 4 Mg/2 Ml Vial) 4 mg IVP Q6HR PRN PRN Reason: Nausea / Vomiting Last Admin: 01/19/21 16:52 Dose: 4 mg Documented by: Oxycodone HCl (Oxycodone 5 Mg Tablet) 5 mg PO Q4HR PRN PRN Reason: Pain 5 to 7 Last Admin: 01/19/21 05:42 Dose: 5 mg Documented by: Sodium Chloride (Sodium Chloride Flush 0.9% 10 Ml Syringe) 10 ml IVP PRN PRN PRN Reason: NEEDED PER PROVIDER ORDERS Last Admin: 01/18/21 22:19 Dose: 10 ml Documented by: Sodium Chloride (Sodium Chloride Flush 0.9% 10 Ml Syringe) 10 ml IVP 0100,0900,1700 [facility] Last Admin: 01/19/21 16:52 Dose: 10 ml Documented by: Thiamine HCl (Thiamine 100 Mg Tablet) 100 mg PO DAILY [facility] Last Admin: 01/19/21 09:19 Dose: 100 mg Documented by: Citalopram [CeleXA] 10 mg ORAL DAILY 09/15/20 Gabapentin [Neurontin] 300 mg PO 0800,1400 PRN 01/19/21 Gabapentin [Neurontin] 600 mg PO QPM 01/19/21 Metoprolol Succinate [Toprol Xl] 25 mg PO DAILY 01/19/21 Objective - Vital Signs/Intake & Output Reviewed Vital Signs: Yes Vital Signs: Vital Signs x48h Temp Pulse Resp BP Pulse Ox 01/19/21 15:57 97 16 103/86 H 95 01/19/21 12:56 36.3 C L 84 17 94/67 95 Intake & Output: Intake & Output 01/16/21 01/17/21 01/18/21 01/19/21 23:59 23:59 23:59 23:59 Intake Total 130 630 Output Total 200 1850 Balance -70 -1220 - Objective General Appearance: positive: No acute distress, Alert, Other (Disheveled white male who looks older than stated age, hair is quite long, owens. Mustache. But very grateful to be here. Says it is warm, he can get good food and he likes it) Eyes Bilateral: positive: PERRL, EOMI ENT: positive: Other (Oral mucosa is starting to improve. But lips are still quite dry and cracked) Neck: positive: No JVD, Lymphadenopathy (R), Lymphadenopathy (L). negative: Stiff neck Respiratory: positive: No respiratory distress, Rales. negative: Wheezes, Rhonchi Cardiovascular: positive: Regular rate & rhythm, Systolic murmur. negative: Gallop/S4, Friction rub Abdomen: positive: Non-tender, No organomegaly, Nml bowel sounds, No distention Extremities: positive: Pedal edema, Calf tenderness (Bilateral from dense woody muscle edema) Neurologic/Psychiatric: positive: Oriented x3, CN's nml (2-12), Motor nml - Lab Results Fish Bones: 01/19/21 06:19 01/19/21 06:19 Other Labs: Lab Results x24hrs 01/19/21 01/19/21 01/19/21 Range/Units 06:19 06:19 06:19 WBC 10.4 (4.8-10.8) x10^3/uL RBC 3.87 L (4.70-6.10) 10^6/uL Hgb 13.1 L (14.0-18.0) g/dL Hct 39.1 L (42.0-52.0) % MCV 101.0 H (80.0-94.0) fL MCH 33.9 H (27.0-31.0) pg MCHC 33.5 (32.0-36.0) g/dL RDW 14.7 (12.0-15.0) % Plt Count 133 (130-450) 10^3/uL MPV 12.9 H (7.4-11.4) fL Neut # (Auto) 6.9 H Lymph # (Auto) 1.6 [place] # (Auto) 1.5 H Eos # (Auto) 0.2 Baso # (Auto) 0.1 Absolute Nucleated RBC 0.00 Total Counted Band Neuts % (Manual) (0 - 10) % Reactive Lymphs % (Man) % Abnorm Lymph % (Manual) % Nucleated RBC % 0.0 Neutrophils # (Manual) (1.5-6.6) 10^3/uL Lymphocytes # (Manual) (1.5-3.5) 10^3/uL Monocytes # (Manual) (0.0-1.0) 10^3/uL Eosinophils # (Manual) (0-0.7) 10^3/uL Basophils # (Manual) (0-0.1) 10^3/uL Differential Comment Platelet Estimate (NORMAL) Platelet Morphology (NORMAL) RBC Morph Micro Appear (NORMAL) PT (9.9-12.6) secs INR (0.8-1.2) Sodium 130 L (135-145) mmol/L Potassium 5.3 H (3.5-5.0) mmol/L Chloride 93 L (101-111) mmol/L Carbon Dioxide 24 (21-32) mmol/L Anion Gap 13.0 (6-13) BUN 66 H (6-20) mg/dL Creatinine 2.3 H (0.6-1.2) mg/dL Estimated GFR (MDRD) 29 L (>89) Glucose 75 (70-100) mg/dL Calcium 8.1 L (8.5-10.3) mg/dL Phosphorus (2.5-4.6) mg/dL Magnesium (1.7-2.8) mg/dL Total Bilirubin 2.8 H (0.2-1.0) mg/dL Direct Bilirubin 1.4 H (0.1-0.5) mg/dL AST 2488 H (10-42) IU/L ALT 1748 H (10-60) IU/L Alkaline Phosphatase 247 H (42-121) IU/L B-Natriuretic Peptide 4192 H (5-100) pg/mL Total Protein 6.0 L (6.7-8.2) g/dL Albumin 3.4 (3.2-5.5) g/dL Globulin 2.6 (2.1-4.2) g/dL Albumin/Globulin Ratio (1.0-2.2) Nasal Adenovirus (PCR) Nasal B. parapertussis DNA (PCR) Nasal Coronavir 229E PCR Nasal Coronavir HKU1 PCR Nasal Coronavir NL63 PCR Nasal Coronavir OC43 PCR Nasal Enterovir/Rhinovir PCR Nasal Influenza B PCR Nasal Influenza A PCR Nasal Parainfluen 1 PCR Nasal Parainfluen 2 PCR Nasal Parainfluen 3 PCR Nasal Parainfluen 4 PCR Nasal RSV (PCR) Nasal B.pertussis DNA PCR Nasal C.pneumoniae (PCR) [place] Human Metapneumo PCR Nasal M.pneumoniae (PCR) Nasal SARS-CoV-2 (PCR) Ethyl Alcohol mg/dL 01/18/21 01/18/21 01/18/21 Range/Units 21:59 18:22 16:51 WBC (4.8-10.8) x10^3/uL RBC (4.70-6.10) 10^6/uL Hgb (14.0-18.0) g/dL Hct (42.0-52.0) % MCV (80.0-94.0) fL MCH (27.0-31.0) pg MCHC (32.0-36.0) g/dL RDW (12.0-15.0) % Plt Count (130-450) 10^3/uL MPV (7.4-11.4) fL Neut # (Auto) Lymph # (Auto) [place] # (Auto) Eos # (Auto) Baso # (Auto) Absolute Nucleated RBC Total Counted Band Neuts % (Manual) (0 - 10) % Reactive Lymphs % (Man) % Abnorm Lymph % (Manual) % Nucleated RBC % Neutrophils # (Manual) (1.5-6.6) 10^3/uL Lymphocytes # (Manual) (1.5-3.5) 10^3/uL Monocytes # (Manual) (0.0-1.0) 10^3/uL Eosinophils # (Manual) (0-0.7) 10^3/uL Basophils # (Manual) (0-0.1) 10^3/uL Differential Comment Platelet Estimate (NORMAL) Platelet Morphology (NORMAL) RBC Morph Micro Appear (NORMAL) PT (9.9-12.6) secs INR (0.8-1.2) Sodium 129 L (135-145) mmol/L Potassium 4.9 (3.5-5.0) mmol/L Chloride 93 L (101-111) mmol/L Carbon Dioxide 20 L (21-32) mmol/L Anion Gap 16.0 H (6-13) BUN 62 H (6-20) mg/dL Creatinine 2.4 H (0.6-1.2) mg/dL Estimated GFR (MDRD) 28 L (>89) Glucose 75 (70-100) mg/dL Calcium 8.2 L (8.5-10.3) mg/dL Phosphorus (2.5-4.6) mg/dL Magnesium (1.7-2.8) mg/dL Total Bilirubin (0.2-1.0) mg/dL Direct Bilirubin (0.1-0.5) mg/dL AST (10-42) IU/L ALT (10-60) IU/L Alkaline Phosphatase (42-121) IU/L B-Natriuretic Peptide 3878 H (5-100) pg/mL Total Protein (6.7-8.2) g/dL Albumin (3.2-5.5) g/dL Globulin (2.1-4.2) g/dL Albumin/Globulin Ratio (1.0-2.2) Nasal Adenovirus (PCR) NOT DETECTED Nasal B. parapertussis DNA (PCR) NOT DETECTED Nasal Coronavir 229E PCR NOT DETECTED Nasal Coronavir HKU1 PCR NOT DETECTED Nasal Coronavir NL63 PCR NOT DETECTED Nasal Coronavir OC43 PCR NOT DETECTED Nasal Enterovir/Rhinovir PCR NOT DETECTED Nasal Influenza B PCR NOT DETECTED Nasal Influenza A PCR NOT DETECTED Nasal Parainfluen 1 PCR NOT DETECTED Nasal Parainfluen 2 PCR NOT DETECTED Nasal Parainfluen 3 PCR NOT DETECTED Nasal Parainfluen 4 PCR NOT DETECTED Nasal RSV (PCR) NOT DETECTED Nasal B.pertussis DNA PCR NOT DETECTED Nasal C.pneumoniae (PCR) NOT DETECTED [place] Human Metapneumo PCR NOT DETECTED Nasal M.pneumoniae (PCR) NOT DETECTED Nasal SARS-CoV-2 (PCR) NOT DETECTED Ethyl Alcohol mg/dL 01/18/21 01/18/21 01/18/21 Range/Units 16:51 16:51 16:51 WBC (4.8-10.8) x10^3/uL RBC (4.70-6.10) 10^6/uL Hgb (14.0-18.0) g/dL Hct (42.0-52.0) % MCV (80.0-94.0) fL MCH (27.0-31.0) pg MCHC (32.0-36.0) g/dL RDW (12.0-15.0) % Plt Count (130-450) 10^3/uL MPV (7.4-11.4) fL Neut # (Auto) Not Reportable Lymph # (Auto) Not Reportable [place] # (Auto) Not Reportable Eos # (Auto) Not Reportable Baso # (Auto) Not Reportable Absolute Nucleated RBC Not Reportable Total Counted 100 Band Neuts % (Manual) 3 (0 - 10) % Reactive Lymphs % (Man) 3 % Abnorm Lymph % (Manual) 0 % Nucleated RBC % Not Reportable Neutrophils # (Manual) 10.6 H (1.5-6.6) 10^3/uL Lymphocytes # (Manual) 1.5 (1.5-3.5) 10^3/uL Monocytes # (Manual) 1.1 H (0.0-1.0) 10^3/uL Eosinophils # (Manual) 0.1 (0-0.7) 10^3/uL Basophils # (Manual) 0.0 (0-0.1) 10^3/uL Differential Comment MANUAL DIFFERENTIAL Platelet Estimate NORMAL (130-450,000) (NORMAL) Platelet Morphology NORMAL APPEARANCE (NORMAL) RBC Morph Micro Appear NORMAL APPEARANCE (NORMAL) PT 28.5 H (9.9-12.6) secs INR 2.6 H (0.8-1.2) Sodium 128 L (135-145) mmol/L Potassium 5.3 H (3.5-5.0) mmol/L Chloride 90 L (101-111) mmol/L Carbon Dioxide 20 L (21-32) mmol/L Anion Gap 18.0 H (6-13) BUN 61 H (6-20) mg/dL Creatinine 2.4 H (0.6-1.2) mg/dL Estimated GFR (MDRD) 28 L (>89) Glucose 77 (70-100) mg/dL Calcium 8.6 (8.5-10.3) mg/dL Phosphorus 6.3 H (2.5-4.6) mg/dL Magnesium 2.0 (1.7-2.8) mg/dL Total Bilirubin 3.8 H (0.2-1.0) mg/dL Direct Bilirubin (0.1-0.5) mg/dL AST 4614 H (10-42) IU/L ALT 2122 H (10-60) IU/L Alkaline Phosphatase 301 H (42-121) IU/L B-Natriuretic Peptide (5-100) pg/mL Total Protein 6.7 (6.7-8.2) g/dL Albumin 3.8 (3.2-5.5) g/dL Globulin 2.9 (2.1-4.2) g/dL Albumin/Globulin Ratio 1.3 (1.0-2.2) Nasal Adenovirus (PCR) Nasal B. parapertussis DNA (PCR) Nasal Coronavir 229E PCR Nasal Coronavir HKU1 PCR Nasal Coronavir NL63 PCR Nasal Coronavir OC43 PCR Nasal Enterovir/Rhinovir PCR Nasal Influenza B PCR Nasal Influenza A PCR Nasal Parainfluen 1 PCR Nasal Parainfluen 2 PCR Nasal Parainfluen 3 PCR Nasal Parainfluen 4 PCR Nasal RSV (PCR) Nasal B.pertussis DNA PCR Nasal C.pneumoniae (PCR) [place] Human Metapneumo PCR Nasal M.pneumoniae (PCR) Nasal SARS-CoV-2 (PCR) Ethyl Alcohol < 5.0 mg/dL ABX Reporting Has patient been on IV antibiotics over the past 48 hours?: No Assessment/Plan - Problem List (1) Acute on chronic systolic and diastolic heart failure, NYHA class 4 Impression: He is in acute congestive heart failure on admission. Last echocardiogram available revealed an ejection fraction less than 20%. His BNP is nearly 4000 and he has lower extremity edema as well as pulmonary vascular congestion on imaging. We placed him on 60 mg of IV Lasix daily. Fluid restriction. Low-sod ium diet. Daily weights and strict I's and O's. We will repeat an echocardiogram on Thursday. We will also order an arterial duplex given his lower extremities are cool to touch with diminished pulses.Because his lower extremities were so cyanotic and purple, we thought about leg ischemia. His main complaint is leg pain. We ordered an arterial duplex given his lower extremities and it is not significantly impacted.He his main concern was the leg pain, not so much the congestive heart failure. He has improved but still has a ways to go. BUN slightly kyrie to 66. Creatinine slightly improved to 2.3. BNP this morning is 4192. Plan: Increase Lasix to twice daily.24 hours. Check daily weights. Those were not ordered. Continue oxycodone as needed and avoid IV morphine (2) Hepatitis Conclusion/Plan: His LFTs are significantly elevated and his INR is 2.5. This could be multifactorial secondary to alcohol use, congestive hepatopathy, or hepatitis. His mattress discriminant function is 77 points. We will hold off on prednisone at this time until we ensure there is no evidence of chronic hepatitis C or B infection. Hepatitis panel was supposed to been drawn today. Not clear on looking on the EMR if this is worse done or not. Will check with lab. Laboratory Tests 01/18/21 01/19/21 16:51 06:19 Total Bilirubin 3.8 H 2.8 H Direct Bilirubin 1.4 H AST 4614 H 2488 H ALT 2122 H 1748 H (3) ESTEVAN (acute kidney injury) Conclusion/Plan: His creatinine is elevated at 2.4 compared to his baseline of 0.8. This is likely secondary to acute on chronic congestive heart failure. We diuresed him with Lasix 60 mg IV daily. Avoid nephrotoxins. Monitor urine output and renal function closely. His renal function did slightly improve with diuresis. But I am still worried about nephrotoxins, and worsening creatinine. I am going to increase Lasix to twice daily for the next day. (4) Hyponatremia Conclusion/Plan: This is hypervolemic hyponatremia secondary to his congestive heart failure. His sodium is decreased at 128. Repeat BMP went to 129 last night, and 130 this morning.Continue fluid restriction. (5) COPD (chronic obstructive pulmonary disease) Conclusion/Plan: Stable and not in exacerbation. Continue with albuterol as needed. (6) Paroxysmal atrial fibrillation Conclusion/Plan: He is currently in a sinus rhythm. He is not on anticoagulation at home. We will continue his home metoprolol.
[2021-01-19] MEDS: GABAPENTIN 300 MG CAPSULE PO SCH (20:35)
[2021-01-20] MEDS: SODIUM CHLORIDE FLUSH 0.9% 10 ML SYRINGE IVP SCH ×4 (01:15→17:51)
[2021-01-20] MEDS: oxyCODONE 5 MG TABLET PO PRN ×4 (04:22→21:36)
[2021-01-20 05:51] LABS: BASOPHILS % (AUTO) 0.3 %; EOSINOPHILS # (AUTO) 0.2 10^3/uL (0.0-0.7); EOSINOPHILS % (AUTO) 1.8 %; HCT - HEMATOCRIT 43.2 % (42.0-52.0); HGB - HEMOGLOBIN 14.4 g/dL (14.0-18.0); LYMPHOCYTES % (AUTO) 10.9 %; MEAN CORPUSCULAR HEMOGLOBIN 33.9 pg (27.0-31.0); MEAN CORPUSCULAR HGB CONC 33.3 g/dL (32.0-36.0); MEAN CORPUSCULAR VOLUME 101.6 fL (80.0-94.0); MEAN PLATELET VOLUME 12.4 fL (7.4-11.4); MONOCYTES % (AUTO) 10.4 %; NEUTROPHILS % (AUTO) 76.1 %; PLT - PLATELET COUNT 122 10^3/uL (130-450); RED BLOOD COUNT 4.25 10^6/uL (4.70-6.10); RED CELL DISTRIBUTION WIDTH 14.8 % (12.0-15.0); WHITE BLOOD COUNT 9.3 x10^3/uL (4.8-10.8)
[2021-01-20 06:10] LABS: ALBUMIN 3.3 g/dL (3.2-5.5); BILIRUBIN,TOTAL 2.3 mg/dL (0.2-1.0); CALCIUM 8.1 mg/dL (8.5-10.3); CREATININE 1.7 mg/dL (0.6-1.2); POTASSIUM 4.1 mmol/L (3.5-5.0); TOTAL PROTEIN 6.2 g/dL (6.7-8.2)
[2021-01-20] MEDS: MORPHINE 2 MG/ML CARPUJECT IVP PRN ×3 (06:39→17:52)
--- NOTE | 2021-01-20 08:01 | PROVIDER PROGRESS NOTE ---
Subjective - Prog Note Date Prog Note Date: 01/20/21 Prog Note Time: 16:02 - Subjective Subjective: He feels better. Less shortness of breath. His main complaint, overall, is bilateral foot pain. Weightbearing is tremendously painful for him because of peripheral neuropathy. His feet are always chronically purplish, swollen because of CHF. He actually feels that that is not the cause of his pain that it is strictly neuropathy. When he is off of his feet, and his legs are shrunken, he is comfortable. Eating well. Diuresing well. His liver enzymes are coming down and his BNP is staying elevated in the face of some renal failure. Creatinine is responding. Later this afternoon he developed a cold left foot and a hot right foot. From a pain perspective he says the pain is no different than it usually is. Current Medications - Current Medications Current Medications: Active Medications Albuterol (Albuterol Neb 2.5 Mg/3 Ml) 2.5 mg INH RTQ4H PRN PRN Reason: Wheezing Furosemide (Furosemide 40 Mg/4 Ml Vial) 60 mg IVP DAILY [facility] Last Admin: 01/19/21 09:16 Dose: 60 mg Documented by: Gabapentin (Gabapentin 300 Mg Capsule) 600 mg PO QPM [facility] Last Admin: 01/19/21 20:35 Dose: 600 mg Documented by: Metoprolol Succinate (Metoprolol Succinate 25 Mg Tablet) 12.5 mg PO BID [facility] Last Admin: 01/19/21 20:34 Dose: 12.5 mg Documented by: Morphine Sulfate (Morphine 2 Mg/Ml Carpuject) 1 mg IVP Q4HR PRN PRN Reason: PAIN Last Admin: 01/20/21 06:39 Dose: 1 mg Documented by: Multivitamins (Multivitamin Tablet) 1 tab PO DAILYWM [facility] Last Admin: 01/19/21 09:19 Dose: 1 tab Documented by: Ondansetron HCl (Ondansetron Odt 4 Mg Tablet) 4 mg TL Q6HR PRN PRN Reason: Nausea / Vomiting Ondansetron HCl (Ondansetron 4 Mg/2 Ml Vial) 4 mg IVP Q6HR PRN PRN Reason: Nausea / Vomiting Last Admin: 01/19/21 23:45 Dose: 4 mg Documented by: Oxycodone HCl (Oxycodone 5 Mg Tablet) 5 mg PO Q4HR PRN PRN Reason: Pain 5 to 7 Last Admin: 01/20/21 04:22 Dose: 5 mg Documented by: Sodium Chloride (Sodium Chloride Flush 0.9% 10 Ml Syringe) 10 ml IVP PRN PRN PRN Reason: NEEDED PER PROVIDER ORDERS Last Admin: 01/18/21 22:19 Dose: 10 ml Documented by: Sodium Chloride (Sodium Chloride Flush 0.9% 10 Ml Syringe) 10 ml IVP 0100,0900,1700 [facility] Last Admin: 01/20/21 01:15 Dose: 10 ml Documented by: Thiamine HCl (Thiamine 100 Mg Tablet) 100 mg PO DAILY [facility] Last Admin: 01/19/21 09:19 Dose: 100 mg Documented by: Citalopram [CeleXA] 10 mg ORAL DAILY 09/15/20 Gabapentin [Neurontin] 300 mg PO 0800,1400 PRN 01/19/21 Gabapentin [Neurontin] 600 mg PO QPM 01/19/21 Metoprolol Succinate [Toprol Xl] 25 mg PO DAILY 01/19/21 Objective - Vital Signs/Intake & Output Reviewed Vital Signs: Yes Vital Signs: Vital Signs x48h Temp Pulse Resp BP Pulse Ox 01/20/21 04:33 36.3 C L 66 18 96/78 95 Intake & Output: Intake & Output 01/17/21 01/18/21 01/19/21 01/20/21 23:59 23:59 23:59 23:59 Intake Total 130 710 190 Output Total 200 2855 250 Balance -70 -2145 -60 - Objective General Appearance: positive: No acute distress, Alert, Other (Disheveled white male who looks much older than stated age. Very pleasant. Cooperative.) Eyes Bilateral: positive: PERRL, EOMI ENT: positive: No signs of dehydration Neck: positive: No JVD. negative: Stiff neck Respiratory: positive: No respiratory distress. negative: Wheezes, Rales, Rhonchi Cardiovascular: positive: Regular rate & rhythm, No gallop, Systolic murmur, Other (Really do not hear an S3 and PMI is not palpable) Abdomen: positive: Nml bowel sounds, No distention, Tenderness (Minimal, right upper quadrant.), Hepatomegaly Skin: positive: Warm, Dry Extremities: positive: Full ROM, Pedal edema, Other (The left foot is cold, purple. Even when it is raised and not dependent. The right foot is hot, and more edematous than the left foot. Toes are particularly blue. Again, there is no pain that is worse with this. He says is about the same as always.) Neurologic/Psychiatric: positive: Oriented x3, CN's nml (2-12), Motor nml - Lab Results Fish Bones: 01/20/21 04:30 01/20/21 04:30 Other Labs: Lab Results x24hrs 01/20/21 01/20/21 01/20/21 Range/Units 04:30 04:30 04:30 WBC 9.3 (4.8-10.8) x10^3/uL RBC 4.25 L (4.70-6.10) 10^6/uL Hgb 14.4 (14.0-18.0) g/dL Hct 43.2 (42.0-52.0) % MCV 101.6 H (80.0-94.0) fL MCH 33.9 H (27.0-31.0) pg MCHC 33.3 (32.0-36.0) g/dL RDW 14.8 (12.0-15.0) % Plt Count 122 L (130-450) 10^3/uL MPV 12.4 H (7.4-11.4) fL Neut # (Auto) 7.0 H (1.5-6.6) 10^3/uL Lymph # (Auto) 1.0 L (1.5-3.5) 10^3/uL [place] # (Auto) 1.0 (0.0-1.0) 10^3/uL Eos # (Auto) 0.2 (0.0-0.7) 10^3/uL Baso # (Auto) 0.0 (0.0-0.1) 10^3/uL Absolute Nucleated RBC 0.00 x10^3/uL Nucleated RBC % 0.0 /100WBC Sodium 131 L (135-145) mmol/L Potassium 4.1 (3.5-5.0) mmol/L Chloride 92 L (101-111) mmol/L Carbon Dioxide 27 (21-32) mmol/L Anion Gap 12.0 (6-13) BUN 57 H (6-20) mg/dL Creatinine 1.7 H (0.6-1.2) mg/dL Estimated GFR (MDRD) 41 L (>89) Glucose 72 (70-100) mg/dL Calcium 8.1 L (8.5-10.3) mg/dL Total Bilirubin 2.3 H (0.2-1.0) mg/dL Direct Bilirubin 1.0 H (0.1-0.5) mg/dL AST 1045 H (10-42) IU/L ALT 1339 H (10-60) IU/L Alkaline Phosphatase 232 H (42-121) IU/L B-Natriuretic Peptide 3405 H (5-100) pg/mL Total Protein 6.2 L (6.7-8.2) g/dL Albumin 3.3 (3.2-5.5) g/dL Globulin 2.9 (2.1-4.2) g/dL Assessment/Plan - Problem List (1) Acute on chronic systolic and diastolic heart failure, NYHA class 4 Impression: He is in acute congestive heart failure on admission. Last echocardiogram available revealed an ejection fraction less than 20%. His BNP is nearly 4000 and he has lower extremity edema as well as pulmonary vascular congestion on imaging. We placed him on 60 mg of IV Lasix daily. Fluid restriction. Low- sodium diet. Daily weights and strict I's and O's. We will repeat an echocardiogram on 01/21. His main complaint is leg pain. We did think about leg ischemia on admission. And duplex arterial studies showed no acute thrombosis. Elevated velocities in the left distal SFA and left DOOR LINER suggesting stenosis. Flow to the ankles and feet bilaterally with biphasic waveforms. Weight on admission was 69 kg. He is 66.5 today. He has improved but still has a ways to go. Creatinine started at 2.4 and is 1.7 today. BNP was 3878 on admission and is 3405 today. Plan: Increase Lasix to twice daily for just a day. I get worried about his cre atinine. Check daily weights.Weights have improved from admission to today and will continue to monitor. Continue oxycodone as needed and avoid IV morphine Repeat arterial Dopplers since the foot is now frankly cyanotic. I cannot feel a pulse. Once he does a dry weight, I can carefully add an AUDELIA inhibitor or ARB. Right now and focusing on diuresis, the beta-cayden. Blood pressure can occasionally go into the 90s with him. (2) Hepatitis Conclusion/Plan: His LFTs are significantly elevated and his INR is 2.5. This could be multifactorial secondary to alcohol use, congestive hepatopathy, or hepatitis. His mattress discriminant function is 77 points. We will hold off on prednisone at this time until we ensure there is no evidence of chronic hepatitis C or B infection. Hepatitis panel was supposed to been drawn today. Not clear on looking on the EMR if this is worse done or not. Lab states that this is a send out. It was done on January 19 and will get reported out soon. Laboratory Tests 01/18/21 01/19/21 16:51 06:19 Total Bilirubin 3.8 H 2.8 H Direct Bilirubin 1.4 H AST 4614 H 2488 H ALT 2122 H 1748 H Laboratory Tests 01/20/21 04:30 Total Bilirubin 2.3 H Direct Bilirubin 1.0 H AST 1045 H ALT 1339 H Alkaline Phosphatase 232 H (3) ESTEVAN (acute kidney injury) Conclusion/Plan: His creatinine is elevated at 2.4 compared to his baseline of 0.8. It has gone down 2.3>1.7 today. This is likely secondary to acute on chronic congestive heart failure. We diuresed him with Lasix 60 mg IV daily. Avoid nephrotoxins. Monitor urine output and renal function closely. His renal function did slightly improve with diuresis. But I am still worried about nephrotoxins, and worsening creatinine. Lasix to twice a day temporarily, but he is back to once a day now. Doing well with that. Trying to balance perfusion to the kidney without increasing prerenal azotemia in the face of an ejection fraction of 20%. So far it is working with a creatinine that is going down, weight is going down. (4) Hyponatremia Conclusion/Plan: This is hypervolemic hyponatremia secondary to his congestive heart failure. His sodium is decreased at 128. Repeat BMP went to 129 > 130 > 131 today. Continue fluid restriction. (5) COPD (chronic obstructive pulmonary disease) Conclusion/Plan: Stable and not in exacerbation. Continue with albuterol as needed. (6) Paroxysmal atrial fibrillation Conclusion/Plan: He is currently in a sinus rhythm. He is not on anticoagulation at home. We will continue his home metoprolol.
[2021-01-20] MEDS: MULTIVITAMIN TABLET PO SCH (10:54)
[2021-01-20] MEDS: METOPROLOL SUCCINATE 25 MG TABLET PO SCH ×2 (10:54→21:36)
[2021-01-20] MEDS: THIAMINE 100 MG TABLET PO SCH (10:55)
[2021-01-20] MEDS: FUROSEMIDE 40 MG/4 ML VIAL IVP SCH (10:56)
--- NOTE | 2021-01-20 19:13 | Ultrasound Report ---
PROCEDURE: Duplex Lwr Ext Arterial LT INDICATIONS: blue, cold, left foot TECHNIQUE: Color and pulse Doppler interrogation was performed of the left lower extremity arterial system, with image documentation. COMPARISON: 01/18/2021 FINDINGS: Common femoral artery: 49 cm/sec, with triphasic flow. Deep femoral artery: 26 cm/sec, with triphasic flow. Proximal superficial femoral artery: 47 cm/sec, with triphasic flow. Mid superficial femoral artery: 44 cm/sec, with triphasic flow. Distal superficial femoral artery: 142 cm/sec, with triphasic flow. Popliteal artery: 45 cm/sec, with biphasic flow. Posterior tibial artery: 300 cm/sec, with monophasic flow. Anterior tibial artery/dorsalis pedis: 220 cm/sec, with flow. Salcido-scale imaging description: High-grade stenosis in the distal left SFA and anterior tibial arter y and posterior tibial artery IMPRESSION: High-grade stenosis in the left distal SFA and left EM[employer]OYEE [employer]ACEMENT [employer]IST and left HPI. Monophasic waveforms in the pos terior and anterior tibial arteries suggesting critical stenosis and flow limitation Reviewed by: Kamran Lam MD on 01/20/2021 7:12 PM PST Approved by: Kamran Lam MD on 01/20/2021 7:12 PM PST Station ID: [id number]
[2021-01-20] MEDS: GABAPENTIN 300 MG CAPSULE PO SCH (21:37)
[2021-01-21] MEDS: MORPHINE 2 MG/ML CARPUJECT IVP PRN (01:30)
[2021-01-21] MEDS: SODIUM CHLORIDE FLUSH 0.9% 10 ML SYRINGE IVP SCH ×3 (01:30→16:36)
[2021-01-21 05:55] LABS: BASOPHILS % (AUTO) 0.3 %; EOSINOPHILS % (AUTO) 0.3 %; HCT - HEMATOCRIT 40.9 % (42.0-52.0); HGB - HEMOGLOBIN 13.4 g/dL (14.0-18.0); LYMPHOCYTES # (AUTO) 0.7 10^3/uL (1.5-3.5); LYMPHOCYTES % (AUTO) 6.5 %; MEAN CORPUSCULAR HGB CONC 32.8 g/dL (32.0-36.0); MEAN CORPUSCULAR VOLUME 100.7 fL (80.0-94.0); MEAN PLATELET VOLUME 12.1 fL (7.4-11.4); MONOCYTES # (AUTO) 1.2 10^3/uL (0.0-1.0); MONOCYTES % (AUTO) 11.1 %; NEUTROPHILS # (AUTO) 8.6 10^3/uL (1.5-6.6); PLT - PLATELET COUNT 91 10^3/uL (130-450); RED BLOOD COUNT 4.06 10^6/uL (4.70-6.10); RED CELL DISTRIBUTION WIDTH 14.9 % (12.0-15.0); WHITE BLOOD COUNT 10.6 x10^3/uL (4.8-10.8)
[2021-01-21 06:19] LABS: ALBUMIN 3.4 g/dL (3.2-5.5); BILIRUBIN,DIRECT 0.8 mg/dL (0.1-0.5); CALCIUM 8.3 mg/dL (8.5-10.3); CREATININE 1.5 mg/dL (0.6-1.2); POTASSIUM 4.3 mmol/L (3.5-5.0); TOTAL PROTEIN 6.1 g/dL (6.7-8.2)
--- NOTE | 2021-01-21 08:39 | PROVIDER PROGRESS NOTE ---
Assessment/Plan - Problem List (1) Acute on chronic systolic and diastolic heart failure, NYHA class 4 Assessment/Plan: 2D echocardiogram done today showed moderate left ventricular enlargement. Left ventricular wall thickness was normal. Overall left ventricular Systolic function is severely globally impaired with an ejection fraction less than 20%. There is a decrease in the ejection fraction compared to the previous echocardiogram done in 2019. At that time the patient's EF was about 25%. There was also moderate right ventricular enlargement. There was severe impairment in the right ventricular systolic function. Severe right atrial enlargement. There was no evidence of aortic stenosis or aortic regurgitation. Patient had been on Lasix 60 mg IV daily. This was held today because the rachel ent's systolic blood pressure was as low as 70s and he was tachycardic with a heart rate as high as the 120s. He was given 500 mL of normal saline over 2 hours. and a dose of albumin On metoprolol succinate 12.5 mg p.o. twice daily. He was moved to the ICU. Attempting to transfer the patient to another facility for higher level of care. Initial troponin was 89. Will trend x3 more. (2) Acute respiratory failure with hypoxemia Assessment/Plan: Suspect this is secondary to cardiac cause. Patient's oxygen saturation dropped to the 60s. On a nonrebreather his oxygen saturation is about 92%. Will check CT angiogram of the chest to rule out PE (3) Peripheral vascular disease Assessment/Plan: His lower extremities appeared dusky with diminished pulses. Patient denied any pain Dopplers of the lower extremities done on 01/20/2021 showed high-grade stenosis in the left distal Superficial femoral artery and left posterior tibial artery. (4) Hepatitis Assessment/Plan: Likely multifactorial secondary to alcohol use, ischemic hepatopathy or viral hepatitis. Discriminant factor was 77. Hepatitis panel pending. AST 683<--1045 ALT 1031<--1339 Alk Phos 188<--232 (5) ESTEVAN (acute kidney injury) Assessment/Plan: Likely secondary to to CHF exacerbation. Creatinine at admission was 2.4. Creatinine today was 1.5. Continue diuresing with Lasix at 40 mg IV daily starting tomorrow - Current Meds Current Meds: Current Medications Generic Name Dose Route Start Last Admin Trade Name Freq PRN Reason Stop Dose Admin Furosemide 60 mg 01/19/21 09:00 01/20/21 10:56 Furosemide 40 Mg/4 Ml Vial IVP 60 mg DAILY YONATHAN Administration Gabapentin 600 mg 01/18/21 21:00 01/20/21 21:37 Gabapentin 300 Mg Capsule PO 600 mg QPM YONATHAN Administration Metoprolol Succinate 12.5 mg 01/19/21 09:00 01/20/21 21:36 Metoprolol Succinate 25 Mg Tablet PO 12.5 mg BID YONATHAN Administration Morphine Sulfate 1 mg 01/18/21 21:45 01/21/21 01:30 Morphine 2 Mg/Ml Carpuject IVP 1 mg Q4HR PRN Administration PAIN Multivitamins 1 tab 01/19/21 08:00 01/20/21 10:54 Multivitamin Tablet PO 1 tab DAILYWM YONATHAN Administration Ondansetron HCl 4 mg 01/18/21 18:18 01/19/21 23:45 Ondansetron 4 Mg/2 Ml Vial IVP 4 mg Q6HR PRN Administration Nausea / Vomiting Oxycodone HCl 5 mg 01/18/21 18:18 01/20/21 21:36 Oxycodone 5 Mg Tablet PO 5 mg Q4HR PRN Administration Pain 5 to 7 Sodium Chloride 10 ml 01/18/21 18:18 01/18/21 22:19 Sodium Chloride Flush 0.9% 10 Ml Syringe IVP 10 ml PRN PRN Administration NEEDED PER PROVIDER ORDERS Sodium Chloride 10 ml 01/19/21 01:00 01/21/21 01:30 Sodium Chloride Flush 0.9% 10 Ml Syringe IVP 10 ml 0100,0900,1700 YONATHAN Administration Thiamine HCl 100 mg 01/19/21 09:00 01/20/21 10:55 Thiamine 100 Mg Tablet PO 100 mg DAILY YONATHAN Administration - Lab Result Fish Bone Diagrams: 01/21/21 05:08 01/21/21 05:08 Subjective - Subjective Patient Reports: Other (Patient was very hypotensive with SBP as low as 70's and complained of dizziness. Face appears dusky. Has 2+ edema, dusky appearing lower extremities with diminished pulses. He was also tachycardic and hypoxic) Objective Vital Signs: Vital Signs - 24 hr 01/20/21 01/20/21 01/20/21 12:26 15:37 21:00 Temperature 36.5 C 36.5 C 36.1 C L Heart Rate [ 96 100 83 Brachial] Respiratory 16 16 16 Rate Blood Pressure 94/66 99/87 H 94/79 [Right Brachial artery] O2 Saturation 92 94 95 01/20/21 01/21/21 01/21/21 22:23 01:01 06:00 Temperature 36.5 C 36.7 C 36.6 C Heart Rate [ 97 63 Brachial] Respiratory 18 16 Rate Blood Pressure 84/67 L 92/66 [Right Brachial artery] O2 Saturation 93 94 Oxygen O2 Source Room air I&O (Last 24 Hrs): Intake and Output Totals x24h 01/19/21 01/20/21 01/21/21 23:59 23:59 23:59 Intake Total 710 826 280 Output Total 2855 1550 175 Balance -2145 -724 105 General: Alert, Oriented x3, Mild distress, Other (Disheveled, face appears dusky) HEENT: PERRLA, EOMI Neck: No JVD Neuro: Alert, Oriented Times 3 Cardiovascular: Other (sinus tachycardic) Respiratory: Chest non-tender, Other (moderate respiratory distress, hypoxic. No wheezing, rhonchi or crackles) Abdomen: Normal bowel sounds, Soft, No tenderness, No masses Extremities: Other (2+ edema, cyanotic, diminished pulses) Comments/Notes: petechial rash bilaterally - Results Results: Laboratory Results WBC 10.6 x10^3/uL (4.8-10.8) 01/21/21 05:08 RBC 4.06 10^6/uL (4.70-6.10) L 01/21/21 05:08 Hgb 13.4 g/dL (14.0-18.0) L 01/21/21 05:08 Hct 40.9 % (42.0-52.0) L 01/21/21 05:08 MCV 100.7 fL (80.0-94.0) H 01/21/21 05:08 MCH 33.0 pg (27.0-31.0) H 01/21/21 05:08 MCHC 32.8 g/dL (32.0-36.0) 01/21/21 05:08 RDW 14.9 % (12.0-15.0) 01/21/21 05:08 Plt Count 91 10^3/uL (130-450) L 01/21/21 05:08 MPV 12.1 fL (7.4-11.4) H 01/21/21 05:08 Neut # (Auto) 8.6 10^3/uL (1.5-6.6) H 01/21/21 05:08 Lymph # (Auto) 0.7 10^3/uL (1.5-3.5) L 01/21/21 05:08 Pratt # (Auto) 1.2 10^3/uL (0.0-1.0) H 01/21/21 05:08 Eos # (Auto) 0.0 10^3/uL (0.0-0.7) 01/21/21 05:08 Baso # (Auto) 0.0 10^3/uL (0.0-0.1) 01/21/21 05:08 Absolute Nucleated RBC 0.00 x10^3/uL 01/21/21 05:08 Total Counted 100 01/18/21 16:51 Band Neuts % (Manual) 3 % (0-10) 01/18/21 16:51 Reactive Lymphs % (Man) 3 % 01/18/21 16:51 Abnorm Lymph % (Manual) 0 % 01/18/21 16:51 Nucleated RBC % 0.0 /100WBC 01/21/21 05:08 Neutrophils # (Manual) 10.6 10^3/uL (1.5-6.6) H 01/18/21 16:51 Lymphocytes # (Manual) 1.5 10^3/uL (1.5-3.5) 01/18/21 16:51 Monocytes # (Manual) 1.1 10^3/uL (0.0-1.0) H 01/18/21 16:51 Eosinophils # (Manual) 0.1 10^3/uL (0-0.7) 01/18/21 16:51 Basophils # (Manual) 0.0 10^3/uL (0-0.1) 01/18/21 16:51 Differential Comment MANUAL DIFFERENTIAL 01/18/21 16:51 Platelet Estimate NORMAL (130-450,000) (NORMAL) 01/18/21 16:51 Platelet Morphology NORMAL APPEARANCE (NORMAL) 01/18/21 16:51 RBC Morph Micro Appear NORMAL APPEARANCE (NORMAL) 01/18/21 16:51 PT 28.5 secs (9.9-12.6) H 01/18/21 16:51 INR 2.6 (0.8-1.2) H 01/18/21 16:51 Sodium 130 mmol/L (135-145) L 01/21/21 05:08 Potassium 4.3 mmol/L (3.5-5.0) 01/21/21 05:08 Chloride 89 mmol/L (101-111) L 01/21/21 05:08 Carbon Dioxide 31 mmol/L (21-32) 01/21/21 05:08 Anion Gap 10.0 (6-13) 01/21/21 05:08 BUN 52 mg/dL (6-20) H 01/21/21 05:08 Creatinine 1.5 mg/dL (0.6-1.2) H 01/21/21 05:08 Estimated GFR (MDRD) 48 (>89) L 01/21/21 05:08 Glucose 133 mg/dL (70-100) H 01/21/21 05:08 Calcium 8.3 mg/dL (8.5-10.3) L 01/21/21 05:08 Phosphorus 6.3 mg/dL (2.5-4.6) H 01/18/21 16:51 Magnesium 2.0 mg/dL (1.7-2.8) 01/18/21 16:51 Total Bilirubin 2.0 mg/dL (0.2-1.0) H 01/21/21 05:08 Direct Bilirubin 0.8 mg/dL (0.1-0.5) H 01/21/21 05:08 AST 683 IU/L (10-42) H 01/21/21 05:08 ALT 1031 IU/L (10-60) H 01/21/21 05:08 Alkaline Phosphatase 188 IU/L (42-121) H 01/21/21 05:08 B-Natriuretic Peptide 4660 pg/mL (5-100) H 01/21/21 05:08 Total Protein 6.1 g/dL (6.7-8.2) L 01/21/21 05:08 Albumin 3.4 g/dL (3.2-5.5) 01/21/21 05:08 Globulin 2.7 g/dL (2.1-4.2) 12/13/21 05:08 Albumin/Globulin Ratio 1.3 (1.0-2.2) 01/18/21 16:51 Nasal Adenovirus (PCR) NOT DETECTED 01/18/21 18:22 Nasal B. parapertussis DNA (PCR) NOT DETECTED 01/18/21 18:22 Nasal Coronavir 229E PCR NOT DETECTED 01/18/21 18:22 Nasal Coronavir HKU1 PCR NOT DETECTED 12 18:22 Nasal Coronavir NL63 PCR NOT DETECTED 01/18/21 18:22 Nasal Coronavir OC43 PCR NOT DETECTED 12 18:22 Nasal Enterovir/Rhinovir PCR NOT DETECTED 01/18/21 18:22 Nasal Influenza B PCR NOT DETECTED 01/18/21 18:22 Nasal Influenza A PCR NOT DETECTED 01/18/21 18:22 Nasal Parainfluen 1 PCR NOT DETECTED 01/18/21 18:22 Nasal Parainfluen 2 PCR NOT DETECTED 01/18/21 18:22 Nasal Parainfluen 3 PCR NOT DETECTED 01/18/21 18:22 Nasal Parainfluen 4 PCR NOT DETECTED 01/18/21 18:22 Nasal RSV (PCR) NOT DETECTED 01/18/21 18:22 Nasal B.pertussis DNA PCR NOT DETECTED 01/18/21 18:22 Nasal C.pneumoniae (PCR) NOT DETECTED 01/18/21 18:22 Keon Human Metapneumo PCR NOT DETECTED 01/18/21 18:22 Nasal M.pneumoniae (PCR) NOT DETECTED 01/18/21 18:22 Nasal SARS-CoV-2 (PCR) NOT DETECTED 01/18/21 18:22 Ethyl Alcohol < 5.0 mg/dL 01/18/21 16:51 - Procedures Procedures: Procedures COLONOSCOPY (08/16/13) ABX Reporting Has patient been on IV antibiotics over the past 48 hours?: No
[2021-01-21] MEDS: MULTIVITAMIN TABLET PO SCH (08:45)
[2021-01-21] MEDS: THIAMINE 100 MG TABLET PO SCH (08:45)
[2021-01-21] MEDS: oxyCODONE 5 MG TABLET PO PRN ×2 (08:45→16:36)
[2021-01-21] MEDS ORDERED: ALBUMIN 25% 12.5 GM/50 ML VIAL IV STA (09:07)
[2021-01-21] MEDS: FUROSEMIDE 40 MG/4 ML VIAL IVP SCH (10:23)
[2021-01-21] MEDS ORDERED: SODIUM CHLORIDE 0.9% 500 ML IV ONE (10:57)
[2021-01-21] MEDS: METOPROLOL SUCCINATE 25 MG TABLET PO SCH (11:12)
[2021-01-21 13:28] LABS: ABG BASE EXCESS -3.4 mmol/L (-2.0-3.0); ABG HCO3 19.6 mmol/L (22.0-26.0); ABG OXYGEN SATURATION 97 % (94-98); ABG PCO2 30 mmHg (34-45); ABG PH 7.44 (7.35-7.45); ABG PO2 92 mmHg (80-100); ABG TCO2 20.5 MMOL/L (21.0-29.0); ALLEN TEST POSITIVE
[2021-01-21 15:07] LABS: INR 1.9 (0.8-1.2); PT - PROTHROMBIN TIME 21.2 secs (9.9-12.6)
[2021-01-21] MEDS ORDERED: IOPAMIDOL-300 100 ML VIAL ONE (15:34)
--- NOTE | 2021-01-21 16:27 | CT Report ---
PROCEDURE: ANGIO CHEST W/WO INDICATIONS: Hypoxia and tachycardia CONTRAST: IV CONTRAST: Isovue 300 ml: 80 PO CONTRAST: *NO PO CONTRAST TECHNIQUE: After the administration of intravenous contrast, 2 mm axial images were acquired from the pulmonary apices to the posterior costophrenic angles during the arterial phase. In addition, 1 mm lung kernel and 5 mm soft tissue kernel reconstructions were performed. 3-dimensional coronal oblique maximum int ensity projection (MIP) reformats, 8 mm axial MIP, and 5 mm coronal and sagittal MPR reformats were t hen performed through the thorax. For radiation dose reduction, the following was used: automated exp osure control, adjustment of mA and/or kV according to patient size. COMPARISON: None. FINDINGS: Thyroid: Not well delineated. Systemic arterial Vasculature: No aneurysmal dilatation of the thoracic aorta. The aorta is not well opacified. Minimal calcified atheromatous change of the aorta. Pulmonary arterial vasculature: Normal opacification of the pulmonary arterial vasculature to the seg mental level. No filling defect is appreciated to suggest pulmonary embolism. Heart: Cardiomegaly with reflux of contrast into hepatic veins. No significant cardiomegaly. Coronary artery calcification. Mediastinum/rui: No pathologic lymphadenopathy. Lungs/pleura: Centrilobular and paraseptal emphysematous changes of the lungs. Bilateral areas of ple ural thickening/scarring are seen. Small bilateral pleural effusions with adjacent atelectasis. 5 mm noncalcified nodule in the right middle lobe (6-199). 1.4 cm noncalcified nodule in the left upper lobe, pleural-based (6-93). No pneumothorax. Tracheobronchial tree: Patent. Upper abdomen: Thickening of the bilateral adrenal glands, which may reflect hyperplasia. Perihepatic ascites. Bones: No significant osseous abnormalities are noted. Chest wall: The chest wall and axilla are within normal limits. IMPRESSION: 1.No CT evidence of pulmonary embolism. 2.Cardiomegaly with evidence of right heart strain. 3.Centrilobular and paraseptal emphysematous changes. 4.1.4 mm noncalcified nodule in the left upper lobe. Consider PET/CT, image guided biopsy, or 3 month follow-up. Reviewed by: Joe Tse MD on 01/21/2021 4:26 PM PST Approved by: Joe Tse MD on 01/21/2021 4:26 PM PST Station ID: [id number]
[2021-01-21] MEDS ORDERED: IOPAMIDOL-300 100 ML VIAL IVP ONE (18:59)
[2021-01-21 20:14] LABS: CALCIUM 7.9 mg/dL (8.5-10.3); CREATININE 1.7 mg/dL (0.6-1.2); POTASSIUM 4.5 mmol/L (3.5-5.0)
[2021-01-21] MEDS: GABAPENTIN 300 MG CAPSULE PO SCH (20:40)
[2021-01-21] MEDS ORDERED: SODIUM CHLORIDE 0.9% 1,000 ML IV ONE (20:43)
--- NOTE | 2021-01-21 21:17 | PROVIDER PROGRESS NOTE ---
Director Paid Media Note - Director Paid Media Note Director Paid Media Note: The patient is coming hypotensive this evening with systolic in the 70s. I check lactic acid and BMP and his lactic was elevated at 3.7 and his renal function was declining his creatinine was now 1.7 compared to 1.5. Given his heart failure, the concern is for cardiogenic shock. I started him on norepinephrine and asked anesthesia to place a central line and arterial line. At that time he was on a nonrebreather but we will able to wean him down to 2 L of oxygen via nasal cannula. I spoke with cardiology at the [facility] regarding transfer. While they agreed he was quite ill with multiorgan failure, they did not feel he would be a good candidate for transfer. This was because he has end-stage heart failure and would likely either need an LVAD or heart transplant and given he is an alcoholic that is homeless with history of noncompliance, he would not be a candidate for either of those therapies. Early on in the day, the patient had wanted to become a full code. I discussed with him that he would not be a candidate for transfer to [facility] and that I was concerned about his heart failure and that he is actively dying. He understood that if he were to have a cardiac arrest that it would be due to his underlying heart failure and the likelihood of return of spontaneous circulation was quite slim. He therefore agreed to being a DNR. We did agree to obtain a palliative care consult and to continue medical therapy with norepinephrine and diuresis in hopes of him stabilizing and eventually being able to go home. He did express understanding of how ill he is.
[2021-01-21 21:21] LABS: ALBUMIN 3.1 g/dL (3.2-5.5); BILIRUBIN,TOTAL 2.2 mg/dL (0.2-1.0); TOTAL PROTEIN 5.8 g/dL (6.7-8.2)
--- NOTE | 2021-01-21 22:02 | XRAY Report ---
PROCEDURE: Chest 1 View X-Ray INDICATIONS: Hypoxia. CHF. TECHNIQUE: One view of the chest was acquired. COMPARISON: 01/18/2021. FINDINGS: Surgical changes and devices: Central venous catheter tip projects over the distal SVC via right IJ a pproach. Lungs and pleura: No pleural effusions or pneumothorax. Lungs are clear. Mediastinum: Mediastinal contours appear normal. Heart is enlarged. Bones and chest wall: No suspicious bony lesions. Overlying soft tissues appear unremarkable. IMPRESSION: No acute disease process. Cardiomegaly. Reviewed by: Coretta Carrera MD, PhD on 01/21/2021 10:00 PM PST Approved by: Coretta Carrera MD, PhD on 01/21/2021 10:00 PM PST Station ID: [id number]
--- NOTE | 2021-01-21 22:08 | ANESTHESIA PROCEDURE NOTE ---
Anesth Central Line Template - Central Line Central Line Preparation: Consent Obtained, Time out completed, Ultrasound used, Sterile prep and drape Central line location: Right IJ Central line type: Triple lumen Central line catheter tip site resides: Superior vena cava (SVC) Central line aftercare: Chlorhexidine disc placed, Secured (sutured), Placement confirmed, No complications, Bundle checklist complete, Pt tolerated well
--- NOTE | 2021-01-21 22:09 | ANESTHESIA PROCEDURE NOTE ---
Diagnosis: CHF Procedure: arterial line Consent for Procedure(s) Verified and Reviewed: Yes Height and Weight: Height 6 ft Weight (kg) 68 kg Body Mass Index 20.6 Vital Signs: Temp Pulse Resp BP Pulse Ox 36.7 C 95 21 77/67 L 84 L 01/21/21 20:00 01/21/21 20:00 01/21/21 20:00 01/21/21 20:00 01/21/21 20:00 Allergies No Known Drug Allergies Allergy (Verified 01/18/21 16:44) Requesting Provider: Marie Location: ICU ASA classification: 4-Incapacitating disease Is this case an emergency?: Yes Anes. Monitoring and Equipment: Non-invasive BP, Pulse oximetery, Sterile prep and drape Anes. Procedure Start Time: 21:40 (2153)
[2021-01-22 06:00] LABS: BASOPHILS % (AUTO) 0.2 %; EOSINOPHILS % (AUTO) 0.1 %; HCT - HEMATOCRIT 39.7 % (42.0-52.0); HGB - HEMOGLOBIN 13.4 g/dL (14.0-18.0); MEAN CORPUSCULAR HEMOGLOBIN 33.7 pg (27.0-31.0); MEAN CORPUSCULAR HGB CONC 33.8 g/dL (32.0-36.0); MEAN CORPUSCULAR VOLUME 99.7 fL (80.0-94.0); NEUTROPHILS % (AUTO) 72.9 %; PLT - PLATELET COUNT 81 10^3/uL (130-450); RED BLOOD COUNT 3.98 10^6/uL (4.70-6.10); RED CELL DISTRIBUTION WIDTH 14.6 % (12.0-15.0); WHITE BLOOD COUNT 13.5 x10^3/uL (4.8-10.8)
[2021-01-22 06:02] LABS: ABNORMAL LYMPHS % (MANUAL) 0 %; BAND NEUTROPHILS % (MANUAL) 0 %
[2021-01-22 06:13] LABS: ALBUMIN 3.2 g/dL (3.2-5.5); BILIRUBIN,DIRECT 1.2 mg/dL (0.1-0.5); BILIRUBIN,TOTAL 2.5 mg/dL (0.2-1.0); CALCIUM 8.2 mg/dL (8.5-10.3); CREATININE 1.7 mg/dL (0.6-1.2); POTASSIUM 4.6 mmol/L (3.5-5.0); TOTAL PROTEIN 5.5 g/dL (6.7-8.2)
[2021-01-22] MEDS: SODIUM CHLORIDE FLUSH 0.9% 10 ML SYRINGE IVP SCH ×3 (06:17→18:12)
[2021-01-22 06:21] LABS: DIFFERENTIAL COMMENT MANUAL DIFFERENTIAL; LYMPHOCYTES # (MANUAL) 1.4 10^3/uL (1.5-3.5); LYMPHOCYTES % (MANUAL) 10 %; MONOCYTES # (MANUAL) 2.4 10^3/uL (0.0-1.0); NEUTROPHILS # (MANUAL) 9.7 10^3/uL (1.5-6.6); PLATELET ESTIMATE, MANUAL DECREASED (<130,000) (NORMAL); PLATELET MORPHOLOGY NORMAL APPEARANCE (NORMAL); RBC MORPHOLOGY (MULTIPLE) NORMAL APPEARANCE (NORMAL); WBC MORPHOLOGY (MULTIPLE) NORMAL APPEARANCE (NORMAL)
[2021-01-22 07:17] LABS: CALCIUM, IONIZED 1.02 mmol/L (1.15-1.33); VBG PH 7.363 (7.31-7.41)
[2021-01-22] MEDS: oxyCODONE 5 MG TABLET PO PRN ×2 (08:03→18:14)
[2021-01-22] MEDS: THIAMINE 100 MG TABLET PO SCH (08:03)
[2021-01-22] MEDS: MULTIVITAMIN TABLET PO SCH (08:03)
--- NOTE | 2021-01-22 08:14 | PROVIDER PROGRESS NOTE ---
Assessment/Plan - Problem List (1) Cardiogenic shock Assessment/Plan: 2D echocardiogram done today showed moderate left ventricular enlargement. Left ventricular wall thickness was normal. Overall left ventricular Systolic function is severely globally impaired with an ejection fraction less than 20%. There is a decrease in the ejection fraction compared to the previous echocardiogram done in 2019. At that time the patient's EF was about 25%. There was also moderate right ventricular enlargement. There was severe impairment in the right ventricular systolic function. Severe right atrial enlargement. There was no evidence of aortic stenosis or aortic regurgitation. Patient was started on Levophed. Systolic blood pressure has been in the low 100s with heart rate between 80 and 90. Metoprolol succinate has been held due to hypotension. Likewise patient's Lasix was held. Patient's case was presented to cardiology at [facility]. Cardiology stated that the patient will either need an LVAD or heart transplant. However given that he is homeless and has a history of alcohol abuse he is not a candidate. I discussed the patient's condition with him highlighting that he was in end-sta ge heart failure which would likely lead to his demise. He expressed understanding. He had been on hospice in the past but was discharged when he seemed to be maintaining his clinical condition for a long time. Palliative care consult was ordered. He was seen by Lashawn Mark. We will discuss his care further in the following day. (2) Acute on chronic systolic and diastolic heart failure, NYHA class 4 Assessment/Plan: 2D echocardiogram done today showed moderate left ventricular enlargement. Left ventricular wall thickness was normal. Overall left ventricular Systolic function is severely globally impaired with an ejection fraction less than 20%. There is a decrease in the ejection fraction compared to the previous echocardiogram done in 2019. At that time the patient's EF was about 25%. There was also moderate right ventricular enlargement. There was severe impairment in the right ventricular systolic function. Severe right atrial enlargement. There was no evidence of aortic stenosis or aortic regurgitation. Patient was started on Levophed. Systolic blood pressure has been in the low 100s with heart rate between 80 and 90. Metoprolol succinate has been held due to hypotension. Likewise patient's Lasix was held. Patient's case was presented to cardiology at [facility]. Cardiology stated that the patient will either need an LVAD or heart transplant. However given that he is homeless and has a history of alcohol abuse he is not a candidate. (3) Acute respiratory failure with hypoxemia Assessment/Plan: Secondary to end-stage heart failure/cardiogenic shock. Patient's oxygenation dropped to the 60s on 01/21/2021. He was moved to the ICU yesterday 01/21/2021 and placed on a nonrebreather. His oxygen saturation improved to 92%. He is currently on 2 L oxygen with oxygen saturation at 98%. CT angiogram of the chest was negative for PE. (4) Peripheral vascular disease Assessment/Plan: His lower extremities appeared dusky with diminished pulses. Patient denied any pain Dopplers of the lower extremities done on 01/20/2021 showed high-grade stenosis in the left distal Superficial femoral artery and left posterior tibial artery. Coloration of lower extremity improved today 01/22/2021. Lactic acid yesterday was 3.8 with a repeat of 2.7. This is thought to be secondary to poor perfusion. Will trend X1 more Patient was placed on Levophed. (5) Hepatitis Assessment/Plan: Likely multifactorial secondary to alcohol use, ischemic hepatopathy or viral hepatitis. Discriminant factor was 77. Hepatitis panel pending. AST 840<--683<--1045 ALT 976<--1031<--1339 Alk Phos 159<--188<--232 (6) ESTEVAN (acute kidney injury) Assessment/Plan: Likely secondary to to Cardiogenic shock/End-stage CHF . Creatinine at admission was 2.4. Creatinine today was 1.7. Lasix held due to hypotension. Patient was rather started on Levophed yesterday (7) NSTEMI (non-ST elevated myocardial infarction) Assessment/Plan: Likely secondary to cardiogenic shock/ end-stage heart failure. Initial troponin was 89.1, then 82.6, then 202.7, then to 292.9. Will trend X1 He was not started on an antiplatelet due to platelet of 91. Last INR was 1.9. This is likely due to poor liver function with hepatitis. Metoprolol was held due to very low blood pressures requiring Levophed Patient was presented to cardiology at [place]. After considering his case stated that he patient would likely need an LVAD or heart transplant. However given that he has history of alcohol abuse and is homeless he would not be a candidate. Palliative consult in place. - Current Meds Current Meds: Current Medications Generic Name Dose Route Start Last Admin Trade Name Aminah PRN Reason Stop Dose Admin Norepinephrine Bitartrate 8 mg 250 mls @ 15 mls/hr 01/21/21 21:00 01/21/21 2 2:02 / Dextrose IV 8 mcg/min .[id number] YONATHAN 15 mls/hr Administration Protocol 8 MCG/MIN Morphine Sulfate 1 mg 01/18/21 21:45 01/21/21 01:30 Morphine 2 Mg/Ml Carpuject IVP 1 mg Q4HR PRN Administration PAIN Multivitamins 1 tab 01/19/21 08:00 01/22/21 08:03 Multivitamin Tablet PO 1 tab DAILYWM YONATHAN Administration Ondansetron HCl 4 mg 01/18/21 18:18 01/19/21 23:45 Ondansetron 4 Mg/2 Ml Vial IVP 4 mg Q6HR PRN Administration Nausea / Vomiting Oxycodone HCl 5 mg 01/18/21 18:18 01/22/21 08:03 Oxycodone 5 Mg Tablet PO 5 mg Q4HR PRN Administration Pain 5 to 7 Sodium Chloride 10 ml 01/18/21 18:18 01/18/21 22:19 Sodium Chloride Flush 0.9% 10 Ml Syringe IVP 10 ml PRN PRN Administration NEEDED PER PROVIDER ORDERS Sodium Chloride 10 ml 01/19/21 01:00 01/22/21 06:17 Sodium Chloride Flush 0.9% 10 Ml Syringe IVP 10 ml 0100,0900,1700 YONATHAN Administration Thiamine HCl 100 mg 01/19/21 09:00 01/22/21 08:03 Thiamine 100 Mg Tablet PO 100 mg DAILY YONATHAN Administration - Lab Result Fish Bone Diagrams: 01/22/21 05:32 01/23/21 04:35 - Additional Planning My Orders: My Active Orders 01/21/21 11:52 Initiate ICU Electrolyte Prot. [RC] .protocol Code Status [OTHERS] Routine 01/21/21 11:55 RT [Oxygen Therapy] [RC] .PRN 01/21/21 11:56 Telemetry- [RC] Q4HR 01/21/21 13:20 RT - Obtain Arterial Specimen [RC] .ONCE 01/22/21 09:00 FUROSEMIDE INJ 40mg VIAL [LASIX INJ 40 mg VIAL] 40 mg IVP DAILY Subjective - Subjective Patient Reports: Other (Patient was resting comfortably in bed at time of exam. He denied chest pain or dyspnea. He was on 2 L of oxygen via nasal cannula with oxygen saturation at 98%. His lower extremities are cool to touch with diminished pulses. There is improved coloration of his lower extremities.) Objective Vital Signs: Vital Signs - 24 hr 01/21/21 01/21/21 01/21/21 08:23 08:41 09:00 Temperature 36.6 C Heart Rate [ 114 H Brachial] Heart Rate [ Monitoring electrodes] Respiratory 16 Rate Blood Pressure 76/58 L 83/58 L [Left Brachial artery] Blood Pressure [Left Radial artery] Blood Pressure 73/60 L [Right Brachial artery] O2 Saturation 85 L 90 L 01/21/21 01/21/21 01/21/21 10:25 10:30 11:28 Temperature Heart Rate [ 125 H 130 H Brachial] Heart Rate [ Monitoring electrodes] Respiratory Rate Blood Pressure 74/56 L 93/59 L [Left Brachial artery] Blood Pressure [Left Radial artery] Blood Pressure [Right Brachial artery] O2 Saturation 77 L 01/21/21 01/21/21 01/21/21 11:29 11:55 12:35 Temperature 36.5 C Heart Rate [ 97 Brachial] Heart Rate [ 95 Monitoring electrodes] Respiratory Rate Blood Pressure 74/64 L [Left Brachial artery] Blood Pressure [Left Radial artery] Blood Pressure [Right Brachial artery] O2 Saturation 83 L 89 L 79 L 01/21/21 01/21/21 01/21/21 12:40 12:45 12:50 Temperature Heart Rate [ Brachial] Heart Rate [ 96 96 90 Monitoring electrodes] Respiratory 15 14 18 Rate Blood Pressure 85/70 L 80/67 L [Left Brachial artery] Blood Pressure [Left Radial artery] Blood Pressure [Right Brachial artery] O2 Saturation 77 L 69 L 79 L 01/21/21 01/21/21 01/21/21 12:55 13:00 13:05 Temperature 36.7 C Heart Rate [ Brachial] Heart Rate [ 94 95 95 Monitoring electrodes] Respiratory 15 13 18 Rate Blood Pressure 74/58 L 81/72 L 83/52 L [Left Brachial artery] Blood Pressure [Left Radial artery] Blood Pressure [Right Brachial artery] O2 Saturation 80 L 01/21/21 01/21/21 01/21/21 13:10 13:20 13:30 Temperature Heart Rate [ Brachial] Heart Rate [ 97 92 93 Monitoring electrodes] Respiratory 17 18 12 Rate Blood Pressure 76/49 L 97/76 97/76 [Left Brachial artery] Blood Pressure [Left Radial artery] Blood Pressure [Right Brachial artery] O2 Saturation 01/21/21 01/21/21 12 13:45 14:00 14:15 Temperature Heart Rate [ Brachial] Heart Rate [ 96 97 95 Monitoring electrodes] Respiratory 17 15 16 Rate Blood Pressure 103/88 H 96/71 87/74 L [Left Brachial artery] Blood Pressure [Left Radial artery] Blood Pressure [Right Brachial artery] O2 Saturation 89 L 01/21/21 01/21/21 01/21/21 14:30 14:45 15:00 Temperature Heart Rate [ Brachial] Heart Rate [ 94 98 93 Monitoring electrodes] Respiratory 14 12 16 Rate Blood Pressure 88/69 L 89/78 L 92/75 [Left Brachial artery] Blood Pressure [Left Radial artery] Blood Pressure [Right Brachial artery] O2 Saturation 88 L 92 98 01/21/21 01/21/21 01/21/21 15:30 16:00 16:30 Temperature 36.5 C Heart Rate [ Brachial] Heart Rate [ 97 94 90 Monitoring electrodes] Respiratory 13 14 12 Rate Blood Pressure 83/72 L 89/68 L 88/73 L [Left Brachial artery] Blood Pressure [Left Radial artery] Blood Pressure [Right Brachial artery] O2 Saturation 89 L 86 L 01/21/21 01/21/21 01/21/21 17:00 18:00 18:30 Temperature Heart Rate [ Brachial] Heart Rate [ 92 97 92 Monitoring electrodes] Respiratory 14 17 12 Rate Blood Pressure 94/68 95/33 L 86/74 L [Left Brachial artery] Blood Pressure [Left Radial artery] Blood Pressure [Right Brachial artery] O2 Saturation 90 L 88 L 90 L 01/21/21 01/21/21 01/21/21 19:00 20:00 21:00 Temperature 36.7 C Heart Rate [ Brachial] Heart Rate [ 94 95 104 H Monitoring electrodes] Respiratory 18 21 25 H Rate Blood Pressure 87/69 L 77/67 L 79/67 L [Left Brachial artery] Blood Pressure [Left Radial artery] Blood Pressure [Right Brachial artery] O2 Saturation 95 84 L 99 01/21/21 01/21/21 01/22/21 22:00 23:00 00:00 Temperature 36.7 C Heart Rate [ Brachial] Heart Rate [ 95 92 91 Monitoring electrodes] Respiratory 12 1 L 13 Rate Blood Pressure 90/73 91/70 [Left Brachial artery] Blood Pressure 89/73 L [Left Radial artery] Blood Pressure [Right Brachial artery] O2 Saturation 97 94 01/22/21 01/22/21 01/22/21 01:00 02:00 03:00 Temperature Heart Rate [ Brachial] Heart Rate [ 90 93 95 Monitoring electrodes] Respiratory 10 L 15 19 Rate Blood Pressure 107/73 89/65 L 95/67 [Left Brachial artery] Blood Pressure [Left Radial artery] Blood Pressure [Right Brachial artery] O2 Saturation 95 92 94 01/22/21 01/22/21 01/22/21 04:00 05:00 06:00 Temperature 36.8 C Heart Rate [ Brachial] Heart Rate [ 92 97 95 Monitoring electrodes] Respiratory 17 20 16 Rate Blood Pressure 98/73 94/63 90/71 [Left Brachial artery] Blood Pressure [Left Radial artery] Blood Pressure [Right Brachial artery] O2 Saturation 97 95 93 01/22/21 01/22/21 07:00 08:00 Temperature 37.0 C Heart Rate [ Brachial] Heart Rate [ 95 93 Monitoring electrodes] Respiratory 16 19 Rate Blood Pressure 99/75 [Left Brachial artery] Blood Pressure 98/75 [Left Radial artery] Blood Pressure 104/85 H [Right Brachial artery] O2 Saturation 99 99 Oxygen O2 Source Nasal cannula I&O (Last 24 Hrs): Intake and Output Totals x24h 01/20/21 01/21/21 01/22/21 23:59 23:59 23:59 Intake Total 826 1910 50 Output Total 1550 725 100 Balance -724 1185 -50 General: Alert, Oriented x3, No acute distress, Other (Disheveled) HEENT: PERRLA, EOMI Neck: Supple, No JVD Neuro: Alert Cardiovascular: Regular rate Respiratory: Chest non-tender, No respiratory distress, Breath sounds nml Abdomen: Normal bowel sounds, Soft, No tenderness Extremities: No cyanosis, Other (diminished pedal pulses bilaterally) Comments/Notes: petechial rash bilaterally - Results Results: Laboratory Results WBC 13.5 x10^3/uL (4.8-10.8) H 01/22/21 05:32 RBC 3.98 10^6/uL (4.70-6.10) L 01/22/21 05:32 Hgb 13.4 g/dL (14.0-18.0) L 01/22/21 05:32 Hct 39.7 % (42.0-52.0) L 01/22/21 05:32 MCV 99.7 fL (80.0-94.0) H 01/22/21 05:32 MCH 33.7 pg (27.0-31.0) H 01/22/21 05:32 MCHC 33.8 g/dL (32.0-36.0) 01/22/21 05:32 RDW 14.6 % (12.0-15.0) 01/22/21 05:32 Plt Count 81 10^3/uL (130-450) L 01/22/21 05:32 MPV 13.0 fL (7.4-11.4) H 01/22/21 05:32 Neut # (Auto) Not Reportable 01/22/21 05:32 Lymph # (Auto) Not Reportable 01/22/21 05:32 Lucas # (Auto) Not Reportable 01/22/21 05:32 Eos # (Auto) Not Reportable 01/22/21 05:32 Baso # (Auto) Not Reportable 01/22/21 05:32 Absolute Nucleated RBC Not Reportable 01/22/21 05:32 Total Counted 100 01/22/21 05:32 Band Neuts % (Manual) 0 % (0-10) 01/22/21 05:32 Reactive Lymphs % (Man) 3 % 01/18/21 16:51 Abnorm Lymph % (Manual) 0 % 01/22/21 05:32 Nucleated RBC % Not Reportable 01/22/21 05:32 Neutrophils # (Manual) 9.7 10^3/uL (1.5-6.6) H 01/22/21 05:32 Lymphocytes # (Manual) 1.4 10^3/uL (1.5-3.5) L 01/22/21 05:32 Monocytes # (Manual) 2.4 10^3/uL (0.0-1.0) H 01/22/21 05:32 Eosinophils # (Manual) 0.0 10^3/uL (0-0.7) 01/22/21 05:32 Basophils # (Manual) 0.0 10^3/uL (0-0.1) 01/22/21 05:32 Differential Comment MANUAL DIFFERENTIAL 01/22/21 05:32 WBC Morphology NORMAL APPEARANCE (NORMAL) 01/22/21 05:32 Platelet Estimate DECREASED (<130,000) (NORMAL) 01/22/21 05:32 Platelet Morphology NORMAL APPEARANCE (NORMAL) 01/22/21 05:32 RBC Morph Micro Appear NORMAL APPEARANCE (NORMAL) 01/22/21 05:32 PT 21.2 secs (9.9-12.6) H 01/21/21 14:51 INR 1.9 (0.8-1.2) H 01/21/21 14:51 Bld Gas Analysis Time 1311 01/21/21 13:06 Sample Site RIGHT RADIAL 01/21/21 13:06 ABG pH 7.44 (7.35-7.45) 01/21/21 13:06 ABG pCO2 30 mmHg (34-45) L 01/21/21 13:06 ABG pO2 92 mmHg (80-100) 01/21/21 13:06 ABG HCO3 19.6 mmol/L (22.0-26.0) L 01/21/21 13:06 ABG Total CO2 20.5 MMOL/L (21.0-29.0) L 01/21/21 13:06 ABG O2 Saturation 97 % (94-98) 01/21/21 13:06 ABG Base Excess -3.4 mmol/L (-2.0-3.0) L 01/21/21 13:06 Honorio Test POSITIVE 01/21/21 13:06 VBG pH 7.363 (7.31-7.41) 01/22/21 07:00 Ionized Calcium 1.02 mmol/L (1.15-1.33) L 01/22/21 07:00 O2 Delivery Device NON REBREATHER MASK 01/21/21 13:06 O2 Liters/Min 15.00 LPM 01/21/21 13:06 FiO2 100.00 01/21/21 13:06 Sodium 128 mmol/L (135-145) L 01/22/21 05:32 Potassium 4.6 mmol/L (3.5-5.0) 01/22/21 05:32 Chloride 89 mmol/L (101-111) L 01/22/21 05:32 Carbon Dioxide 27 mmol/L (21-32) 01/22/21 05:32 Anion Gap 12.0 (6-13) 01/22/21 05:32 BUN 59 mg/dL (6-20) H 01/22/21 05:32 Creatinine 1.7 mg/dL (0.6-1.2) H 01/22/21 05:32 Estimated GFR (MDRD) 41 (>89) L 01/22/21 05:32 Glucose 132 mg/dL (70-100) H 01/22/21 05:32 Lactic Acid 2.7 mmol/L (0.5-2.2) H 01/22/21 05:32 Calcium 8.2 mg/dL (8.5-10.3) L 01/22/21 05:32 Phosphorus 6.3 mg/dL (2.5-4.6) H 01/18/21 16:51 Magnesium 2.0 mg/dL (1.7-2.8) 01/18/21 16:51 Total Bilirubin 2.5 mg/dL (0.2-1.0) H 01/22/21 05:32 Direct Bilirubin 1.2 mg/dL (0.1-0.5) H 01/22/21 05:32 AST 840 IU/L (10-42) H 01/22/21 05:32 ALT 976 IU/L (10-60) H 01/22/21 05:32 Alkaline Phosphatase 159 IU/L (42-121) H 01/22/21 05:32 Troponin I High Sens 292.9 ng/L (2.3-19.7) H* 01/22/21 05:32 B-Natriuretic Peptide 4678 pg/mL (5-100) H 01/22/21 05:32 Total Protein 5.5 g/dL (6.7-8.2) L 01/22/21 05:32 Albumin 3.2 g/dL (3.2-5.5) 01/22/21 05:32 Globulin 2.3 g/dL (2.1-4.2) 01/22/21 05:32 Albumin/Globulin Ratio 1.3 (1.0-2.2) 01/18/21 16:51 Nasal Adenovirus (PCR) NOT DETECTED 01/18/21 18:22 Nasal B. parapertussis DNA (PCR) NOT DETECTED 01/18/21 18:22 Nasal Coronavir 229E PCR NOT DETECTED 01/18/21 18:22 Nasal Coronavir HKU1 PCR NOT DETECTED 01/18/21 18:22 Nasal Coronavir NL63 PCR NOT DETECTED 12 18:22 Nasal Coronavir OC43 PCR NOT DETECTED 12 18:22 Nasal Enterovir/Rhinovir PCR NOT DETECTED 01/18/21 18:22 Nasal Influenza B PCR NOT DETECTED 01/18/21 18:22 Nasal Influenza A PCR NOT DETECTED 01/18/21 18:22 Nasal Parainfluen 1 PCR NOT DETECTED 01/18/21 18:22 Nasal Parainfluen 2 PCR NOT DETECTED 01/18/21 18:22 Nasal Parainfluen 3 PCR NOT DETECTED 01/18/21 18:22 Nasal Parainfluen 4 PCR NOT DETECTED 01/18/21 18:22 Nasal RSV (PCR) NOT DETECTED 01/18/21 18:22 Nasal Screen MRSA (PCR) NEGATIVE (NEGATIVE) 01/21/21 12:45 Nasal B.pertussis DNA PCR NOT DETECTED 01/18/21 18:22 Nasal C.pneumoniae (PCR) NOT DETECTED 01/18/21 18:22 [place] Human Metapneumo PCR NOT DETECTED 01/18/21 18:22 Nasal M.pneumoniae (PCR) NOT DETECTED 01/18/21 18:22 Nasal SARS-CoV-2 (PCR) NOT DETECTED 01/18/21 18:22 Ethyl Alcohol < 5.0 mg/dL 01/18/21 16:51 - Procedures Procedures: Procedures COLONOSCOPY (08/16/13) ABX Reporting Has patient been on IV antibiotics over the past 48 hours?: No
[2021-01-22] MEDS: polyethylene glycoL 3350 17 GM PACKET PO SCH (09:10)
[2021-01-22] MEDS: FUROSEMIDE 40 MG/4 ML VIAL IVP SCH (09:22)
[2021-01-22] MEDS: CALCIUM CARBONATE CHEW 500 MG TABLET PO SCH ×2 (09:25→13:02)
--- NOTE | 2021-01-22 12:55 | CONSULTATION NOTE ---
Palliative Care Consultation - Referral Referring Provider: Dr. London Rodríguez Time of Visit: 11:00-12:00; 12:45 -1300 Referral setting: Hospitalized patient Referral Reason: Acute on Chronic Systolic and diastolic heart failure NYHA 4 - Information Sources Records reviewed: Previous records reviewed History/Review of Systems obtained from: Patient Exam limitations: Clinical condition (patient with mild STM deficits noted through conversation; patient hx of drinking with poor recall) - History of Present Illness Brief History of Present Illness: This is a 60-year-old gentleman who presents with a fairly complex history influenced by multiple factors. Patient is currently homeless, adding to the complexity of his care, he is been hospitalized with acute on chronic systolic and diastolic heart failure NYHA class IV. He has had hx of ejection fraction of 20%. He was transition to the ICU last night with severe hypotension, and concern for cardiogenic shock. He is currently on pressors, is resting comforta marely, but is intermittently fading in and out cognitively. Patient is known to palliative care, from hospitalization in 11/26, where he had significant seriousness of illness, was discharged to hospice with severe lower extremity edema and blistering, and poorly controlled CHF. Patient reports he continues to struggle with his health, most recently was treated for bronchitis, he quit drinking at that point in time for 2 to 3 weeks. He was hoping "to heal". He reports he has not been feeling good, with increased shortness of breath, he does have lower extremity peripheral neuropathy, and his feet are quite purple up to about mid calf, cold to touch, with edema and no palpable pulses. Patient other than the peripheral neuropathy, reports he is not in any significant pain or distress. He is feeling short of breath with activity, continues with cough, has been feeling quite fatigued overall. Currently though he is feeling quite comfortable in the context of comparison of being out on the streets, with no place to sleep, he is getting regular meals and feeling more comfortable. He still complains of severe persistent fatigue. Patient is quite fragile in his healthcare status, concern patient is a DN AR/DNI. Patient has been able to make his needs known, but does have designated DPOA's, who are Ebenezer and Maldonado'Me Gaines, Whom I did reach out to to give them an update. Please see palliative care conversation. Palliative care has been asked to consult with patient regarding goals of care, if patient continues to decline, consideration of transition to comfort measures or hospice care. Víctor had called [facility], given his end- stage heart failure, would need either an LVAD or heart transplant and given his status of homelessness, history of noncompliance, and an alcoholic would not be a candidate for either of those therapies. Patient does recall somewhat this conversation, though does admit it was 3 or 4 AM, but does understand at some level the seriousness of his illness. Medical/Surgical History - Past Medical History Cardiovascular: reports: Congestive heart failure, Hypertension, High cholesterol, Peripheral Vascular Disease, CO, Atrial fibrillation, Arrhythmia, Valve disorder Respiratory: reports: COPD, Emphysema, Shortness of breath Neuro: Head injury, Headaches, Peripheral neuropathy Endocrine/Autoimmune: reports: None GI: reports: GERD, Hepatitis (Hx of hepatitis C) CARPENTER INSPECTOR: reports: None : reports: Benign prostate hypertrophy, Nocturia, Frequency HEENT: reports: Chronic vision loss, Chronic sinusitis Psych: reports: Depression, Anxiety Musculoskeletal: reports: Chronic back pain Derm: reports: None MRSA Hx?: No - Past Surgical History HEENT: reports: Tonsil/Adenoidectomy - Substance History Use: Uses substance without health or social issues: Tobacco, Alcohol Social History - Living Situation Living arrangement: Homeless Support System: Patient has been experiencing homelessness for persistent amount of time, staying at [facility] in [place]. He reports he [facility], and nights that [facility] halfway. He was adopted, reports he has no siblings, or family. He reports there is a trust, but is unable to access it as he is mostly drinking. He reports he has been walking home before, and found this acceptable, but reports he had not been compliant with the drinking rules, and also was distressed when they "took all his money". But he was there I believe undermedicated of stay. This is where he was discharged in 2018 for support with hospice. Patient reports he is never been , but did have a partner who about 5 years ago, they have been together about 12 years. He reports there is some kids he raised out there, but does not have any children of his own. He shares that he continues to smoke, has not been drinking for 2 or 3 weeks, but reports he has not been able to stay sober. He has been drinking since he was 17. He has been here on [facility], where he came with his father who is in the and retired from [employer]. He does stay in contact with his friends Ebenezer and Bal who are his DPOA. Family History - Family History Family History: Mother: (father of CHF, but patient was adopted. mother in 2011), Father: Medications/Allergies - Medications Active Medication List: Active Medications Albuterol (Albuterol Neb 2.5 Mg/3 Ml) 2.5 mg INH RTQ4H PRN PRN Reason: Wheezing Calcium Carbonate/Glycine (Calcium Carbonate Chew 500 Mg Tablet) 1,250 mg PO Q4H [facility]; Protocol Stop: 01/22/21 13:01 Last Admin: 01/22/21 09:25 Dose: 1,250 mg Documented by: Furosemide (Furosemide 40 Mg/4 Ml Vial) 40 mg IVP DAILY [facility] Last Admin: 01/22/21 09:22 Dose: Not Given Documented by: Norepinephrine Bitartrate 8 mg (/ Dextrose) 250 mls @ 15 mls/hr IV .[id number] [facility]; Protocol Last Titration: 01/22/21 09:00 Dose: 10 mcg/min, 18.75 mls/hr Documented by: Morphine Sulfate (Morphine 2 Mg/Ml Carpuject) 1 mg IVP Q4HR PRN PRN Reason: PAIN Last Admin: 01/21/21 01:30 Dose: 1 mg Documented by: Multivitamins (Multivitamin Tablet) 1 tab PO DAILYWM [facility] Last Admin: 01/22/21 08:03 Dose: 1 tab Documented by: Ondansetron HCl (Ondansetron Odt 4 Mg Tablet) 4 mg TL Q6HR PRN PRN Reason: Nausea / Vomiting Ondansetron HCl (Ondansetron 4 Mg/2 Ml Vial) 4 mg IVP Q6HR PRN PRN Reason: Nausea / Vomiting Last Admin: 01/19/21 23:45 Dose: 4 mg Documented by: Oxycodone HCl (Oxycodone 5 Mg Tablet) 5 mg PO Q4HR PRN PRN Reason: Pain 5 to 7 Last Admin: 01/22/21 08:03 Dose: 5 mg Documented by: Polyethylene Glycol (Polyethylene Glycol 3350 17 Gm Packet) 17 gm PO DAILY [facility] Last Admin: 01/22/21 09:10 Dose: 17 gm Documented by: Sodium Chloride (Sodium Chloride Flush 0.9% 10 Ml Syringe) 10 ml IVP PRN PRN PRN Reason: NEEDED PER PROVIDER ORDERS Last Admin: 01/18/21 22:19 Dose: 10 ml Documented by: Sodium Chloride (Sodium Chloride Flush 0.9% 10 Ml Syringe) 10 ml IVP 0100,0900,1700 [facility] Last Admin: 01/22/21 09:26 Dose: 10 ml Documented by: Thiamine HCl (Thiamine 100 Mg Tablet) 100 mg PO DAILY [facility] Last Admin: 01/22/21 08:03 Dose: 100 mg Documented by: Citalopram [CeleXA] 10 mg ORAL DAILY 09/15/20 Gabapentin [Neurontin] 300 mg PO 0800,1400 PRN 01/19/21 Gabapentin [Neurontin] 600 mg PO QPM 01/19/21 Metoprolol Succinate [Toprol Xl] 25 mg PO DAILY 01/19/21 - Allergies Allergies/Adverse Reactions: Allergies Allergy/AdvReac Type Severity Reaction Status Date / Time No Known Drug Allergies Allergy Verified 01/18/21 16:44 Review of Systems - Constitutional Constitutional: reports: Fatigue, Weakness, Weight loss. denies: Fever, Chills - Eyes Eyes: reports: Vision loss - Ears, Nose & Throat Ears, Nose & Throat: reports: Hearing loss, Dental decay - Cardiovascular Cardiovascular: reports: Edema (reports this is a new symptom for him), Lightheadedness, Exertional dyspnea. denies: Chest pain - Respiratory Respiratory: reports: Cough, SOB at rest, SOB with exertion - Gastrointestinal Gastrointestinal: reports: Early satiety. denies: Constipation, Diarrhea - Musculoskeletal Musculoskeletal: reports: Muscle aches, Stiffness, Muscle weakness - Integumentary Integumentary: reports: Dryness - Neurological Neurological: reports: General weakness, Dizziness, Numbness, Memory problems - Psychiatric Psychiatric: reports: Depression, Anxiety. denies: Suicidal - Endocrine Endocrine: reports: Intolerance to cold - Hematologic/Lymphatic Hematologic/Lymph: reports: Recurrent infections (recent bronchitis) - All Other Systems All Other Systems: reports: Other (limited ROS regarding recall of patient) Physical Exam - Vital Signs Vital Signs: Vital Signs x48h Temp Pulse Resp BP BP BP Pulse Ox 01/22/21 12:00 37.0 C 89 12 90/71 98 01/22/21 11:00 91 19 98/73 96 01/22/21 10:00 94 16 91/66 97 01/22/21 09:00 95 22 91/68 98 01/22/21 08:00 37.0 C 93 19 98/75 104/85 H 99 01/22/21 07:00 95 16 99/75 99 01/22/21 06:00 95 16 90/71 93 01/22/21 05:00 97 20 94/63 95 - Physical Exam General Appearance: positive: No acute distress, Lethargic Eyes Bilateral: positive: Normal inspection, No scleral icterus ENT: positive: Other (poor dental) Neck: positive: Trachea midline Cardiovascular: positive: Tachycardia Respiratory: positive: Diminished in bases. negative: Wheezes Abdomen: positive: Non-tender, Soft, Nml bowel sounds Skin: positive: Pallor Extremities: positive: Pedal edema, Other (feet very cold to touch; no pulses) Neurologic/Psychiatric: positive: Disoriented to time, Weakness, Depressed mood/affect Palliative Care - POLST Patient has POLST: Yes POLST Status: DNR, Selective Treatment (reviewed POLST from 2018; Still consistent with current goals) Pain: Pain unchanged, Location (severe peripheral neuropathy in feet), Severity (7/10), Comment (taken off gabapentin last night) Tiredness/Fatigue: Severe (7-10) Drowsiness/Sedation: Moderate (4-6) Nausea: None Anorexia: Moderate (4-6), Weight loss Dyspnea: Moderate (4-6) Depression: Moderate (4-6) Anxiety: Moderate (4-6) Feelings of wellbeing/Perceived Quality of Life: Poor, Worsening Sleep: Sleeps poorly Constipation: No Performance Status: Did not observe patient, though reported he has been independent in his ADLs and able to walk. Though when asked he reports he is quite weak and has been mostly bedbound. - Palliative Care Discussion: Patient became hypotensive last night, he does remember having conversation with Dr. Duron, reports he understands that this may be his end-of-life event. He reports he is not feeling good, but is not afraid, just somewhat curious. He does remember previously when he was significantly ill, and transitioned to hospice. He does understand that hospice is focus on comfort and no further interventions. He reports he is just had a very difficult life, always has been drinking, does have regrets regarding this, has not been able to control this. Reports he has been drinking since he was 17 years old. He does admit to depression, but denies anxiety. He reports he has had somewhat of a hard life particularly his last few years with his homelessness, and is feeling quite safe here with the kindness of the nurses, and feeling comfortable. He reports he has been somewhat of a "dork" with his medications, has not followed up with any of the doctors. We did address his goals of care, he is fairly consistent and that he does understand he has a do not attempt resuscitation, he does not want any tubes or intubation, medications and current support which he is receiving to keep his blood pressure up is okay. We did discuss this may not be sustainable, given his heart failure and continuing to have more complications. He is unable to really reflect back that he does understand this may lead to an end-of-life event, though he is hoping for some improvement. He would return back to the streets. When asked how he would like his to go, he would like to be someplace where he could sleep and is safe and is comfortable. He is hoping to stay on [facility]. He does not identify anybody who could take on his caregiving needs, he does trust his durable power of medical health care if needed to make a decision for him.He reports he does understand that they may be asked to make a decision, and does feel comfortable with this. We discussed this may eventually transition to hospice, he is okay with this as well. He is not at a place at this moment to "pull the plug", but does understand there may be more conversations coming regarding what may or may not be possible given the seriousness of his illness. Call to Maldonado'Me Turner, she is very familiar with the patient. Reports he does understand the seriousness of his illness, and that he has been fairly consistent in his communications about not wanting resuscitation, nor prolong suffering. Did update that patient is doing quite poorly, and may transition to a point where he is unable to make decisions. She does understand that they may be called upon to transition to comfort measures, she is wondering about coming in and seeing him. He has no family, but has been in touch with them on a regular basis. We discussed I can see how he is doing in the next 24 hours and see if we can make this possible, they may get a call in the meantime though around decision making and they are prepared for this. She is hoping to call and talk to him, will call the ICU nurse and facilitate a call for checking in on him. Provided my information if needed further assistance or had questions. - Other Findings/Comments Additional Discussion: Patient does have on record POLST done 11/12/2007 with myself previously that at that point was do not attempt resuscitation/DN AR and selective treatments. Use antibiotics for prolongation of life, and medically assisted nutrition for comfort only if needed. 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 with [facility] [phone] and Lucina [facility] [phone] Results - Lab Results Lab results reviewed: Yes Fish Bones: 01/22/21 05:32 01/22/21 05:32 Lab and Imaging Results: Lab Results x24hrs 01/22/21 01/22/21 01/22/21 Range/Units 07:00 05:32 05:32 WBC (4.8-10.8) x10^3/uL RBC (4.70-6.10) 10^6/uL Hgb (14.0-18.0) g/dL Hct (42.0-52.0) % MCV (80.0-94.0) fL MCH (27.0-31.0) pg MCHC (32.0-36.0) g/dL RDW (12.0-15.0) % Plt Count (130-450) 10^3/uL MPV (7.4-11.4) fL Neut # (Auto) Lymph # (Auto) [place] # (Auto) Eos # (Auto) Baso # (Auto) Absolute Nucleated RBC Total Counted Band Neuts % (Manual) (0 - 10) % Abnorm Lymph % (Manual) % Nucleated RBC % Neutrophils # (Manual) (1.5-6.6) 10^3/uL Lymphocytes # (Manual) (1.5-3.5) 10^3/uL Monocytes # (Manual) (0.0-1.0) 10^3/uL Eosinophils # (Manual) (0-0.7) 10^3/uL Basophils # (Manual) (0-0.1) 10^3/uL Differential Comment WBC Morphology (NORMAL) Platelet Estimate (NORMAL) Platelet Morphology (NORMAL) RBC Morph Micro Appear (NORMAL) PT (9.9-12.6) secs INR (0.8-1.2) Bld Gas Analysis Time Sample Site ABG pH (7.35-7.45) ABG pCO2 (34-45) mmHg ABG pO2 (80-100) mmHg ABG HCO3 (22.0-26.0) mmol/L ABG Total CO2 (21.0-29.0) MMOL/L ABG O2 Saturation (94-98) % ABG Base Excess (-2.0-3.0) mmol/L Honorio Test VBG pH 7.363 (7.31-7.41) Ionized Calcium 1.02 L (1.15-1.33) mmol/L O2 Delivery Device O2 Liters/Min LPM FiO2 Sodium (135-145) mmol/L Potassium (3.5-5.0) mmol/L Chloride (101-111) mmol/L Carbon Dioxide (21-32) mmol/L Anion Gap (6-13) BUN (6-20) mg/dL Creatinine (0.6-1.2) mg/dL Estimated GFR (MDRD) (>89) Glucose (70-100) mg/dL Lactic Acid 2.7 H (0.5-2.2) mmol/L Calcium (8.5-10.3) mg/dL Total Bilirubin (0.2-1.0) mg/dL Direct Bilirubin (0.1-0.5) mg/dL AST (10-42) IU/L ALT (10-60) IU/L Alkaline Phosphatase (42-121) IU/L Troponin I High Sens 292.9 H* (2.3-19.7) ng/L B-Natriuretic Peptide (5-100) pg/mL Total Protein (6.7-8.2) g/dL Albumin (3.2-5.5) g/dL Globulin (2.1-4.2) g/dL Nasal Screen MRSA (PCR) (NEGATIVE) 01/22/21 01/22/21 01/22/21 Range/Units 05:32 05:32 05:32 WBC 13.5 H (4.8-10.8) x10^3/uL RBC 3.98 L (4.70-6.10) 10^6/uL Hgb 13.4 L (14.0-18.0) g/dL Hct 39.7 L (42.0-52.0) % MCV 99.7 H (80.0-94.0) fL MCH 33.7 H (27.0-31.0) pg MCHC 33.8 (32.0-36.0) g/dL RDW 14.6 (12.0-15.0) % Plt Count 81 L (130-450) 10^3/uL MPV 13.0 H (7.4-11.4) fL Neut # (Auto) Not Reportable Lymph # (Auto) Not Reportable [place] # (Auto) Not Reportable Eos # (Auto) Not Reportable Baso # (Auto) Not Reportable Absolute Nucleated RBC Not Reportable Total Counted 100 Band Neuts % (Manual) 0 (0 - 10) % Abnorm Lymph % (Manual) 0 % Nucleated RBC % Not Reportable Neutrophils # (Manual) 9.7 H (1.5-6.6) 10^3/uL Lymphocytes # (Manual) 1.4 L (1.5-3.5) 10^3/uL Monocytes # (Manual) 2.4 H (0.0-1.0) 10^3/uL Eosinophils # (Manual) 0.0 (0-0.7) 10^3/uL Basophils # (Manual) 0.0 (0-0.1) 10^3/uL Differential Comment MANUAL DIFFERENTIAL WBC Morphology NORMAL APPEARANCE (NORMAL) Platelet Estimate DECREASED (<130,000) (NORMAL) Platelet Morphology NORMAL APPEARANCE (NORMAL) RBC Morph Micro Appear NORMAL APPEARANCE (NORMAL) PT (9.9-12.6) secs INR (0.8-1.2) Bld Gas Analysis Time Sample Site ABG pH (7.35-7.45) ABG pCO2 (34-45) mmHg ABG pO2 (80-100) mmHg ABG HCO3 (22.0-26.0) mmol/L ABG Total CO2 (21.0-29.0) MMOL/L ABG O2 Saturation (94-98) % ABG Base Excess (-2.0-3.0) mmol/L Honorio Test VBG pH (7.31-7.41) Ionized Calcium (1.15-1.33) mmol/L O2 Delivery Device O2 Liters/Min LPM FiO2 Sodium 128 L (135-145) mmol/L Potassium 4.6 (3.5-5.0) mmol/L Chloride 89 L (101-111) mmol/L Carbon Dioxide 27 (21-32) mmol/L Anion Gap 12.0 (6-13) BUN 59 H (6-20) mg/dL Creatinine 1.7 H (0.6-1.2) mg/dL Estimated GFR (MDRD) 41 L (>89) Glucose 132 H (70-100) mg/dL Lactic Acid (0.5-2.2) mmol/L Calcium 8.2 L (8.5-10.3) mg/dL Total Bilirubin 2.5 H (0.2-1.0) mg/dL Direct Bilirubin 1.2 H (0.1-0.5) mg/dL AST 840 H (10-42) IU/L ALT 976 H (10-60) IU/L Alkaline Phosphatase 159 H (42-121) IU/L Troponin I High Sens (2.3-19.7) ng/L B-Natriuretic Peptide 4678 H (5-100) pg/mL Total Protein 5.5 L (6.7-8.2) g/dL Albumin 3.2 (3.2-5.5) g/dL Globulin 2.3 (2.1-4.2) g/dL Nasal Screen MRSA (PCR) (NEGATIVE) 01/22/21 01/21/21 01/21/21 Range/Units 01:18 23:24 19:56 WBC (4.8-10.8) x10^3/uL RBC (4.70-6.10) 10^6/uL Hgb (14.0-18.0) g/dL Hct (42.0-52.0) % MCV (80.0-94.0) fL MCH (27.0-31.0) pg MCHC (32.0-36.0) g/dL RDW (12.0-15.0) % Plt Count (130-450) 10^3/uL MPV (7.4-11.4) fL Neut # (Auto) Lymph # (Auto) [place] # (Auto) Eos # (Auto) Baso # (Auto) Absolute Nucleated RBC Total Counted Band Neuts % (Manual) (0 - 10) % Abnorm Lymph % (Manual) % Nucleated RBC % Neutrophils # (Manual) (1.5-6.6) 10^3/uL Lymphocytes # (Manual) (1.5-3.5) 10^3/uL Monocytes # (Manual) (0.0-1.0) 10^3/uL Eosinophils # (Manual) (0-0.7) 10^3/uL Basophils # (Manual) (0-0.1) 10^3/uL Differential Comment WBC Morphology (NORMAL) Platelet Estimate (NORMAL) Platelet Morphology (NORMAL) RBC Morph Micro Appear (NORMAL) PT (9.9-12.6) secs INR (0.8-1.2) Bld Gas Analysis Time Sample Site ABG pH (7.35-7.45) ABG pCO2 (34-45) mmHg ABG pO2 (80-100) mmHg ABG HCO3 (22.0-26.0) mmol/L ABG Total CO2 (21.0-29.0) MMOL/L ABG O2 Saturation (94-98) % ABG Base Excess (-2.0-3.0) mmol/L Honorio Test VBG pH (7.31-7.41) Ionized Calcium (1.15-1.33) mmol/L O2 Delivery Device O2 Liters/Min LPM FiO2 Sodium (135-145) mmol/L Potassium (3.5-5.0) mmol/L Chloride (101-111) mmol/L Carbon Dioxide (21-32) mmol/L Anion Gap (6-13) BUN (6-20) mg/dL Creatinine (0.6-1.2) mg/dL Estimated GFR (MDRD) (>89) Glucose (70-100) mg/dL Lactic Acid 3.8 H* (0.5-2.2) mmol/L Calcium (8.5-10.3) mg/dL Total Bilirubin 2.2 H (0.2-1.0) mg/dL Direct Bilirubin 1.0 H (0.1-0.5) mg/dL AST 586 H (10-42) IU/L ALT 860 H (10-60) IU/L Alkaline Phosphatase 161 H (42-121) IU/L Troponin I High Sens 202.7 H* (2.3-19.7) ng/L B-Natriuretic Peptide (5-100) pg/mL Total Protein 5.8 L (6.7-8.2) g/dL Albumin 3.1 L (3.2-5.5) g/dL Globulin 2.7 (2.1-4.2) g/dL Nasal Screen MRSA (PCR) (NEGATIVE) 01/21/21 01/21/21 01/21/21 Range/Units 19:56 19:56 18:53 WBC (4.8-10.8) x10^3/uL RBC (4.70-6.10) 10^6/uL Hgb (14.0-18.0) g/dL Hct (42.0-52.0) % MCV (80.0-94.0) fL MCH (27.0-31.0) pg MCHC (32.0-36.0) g/dL RDW (12.0-15.0) % Plt Count (130-450) 10^3/uL MPV (7.4-11.4) fL Neut # (Auto) Lymph # (Auto) [place] # (Auto) Eos # (Auto) Baso # (Auto) Absolute Nucleated RBC Total Counted Band Neuts % (Manual) (0 - 10) % Abnorm Lymph % (Manual) % Nucleated RBC % Neutrophils # (Manual) (1.5-6.6) 10^3/uL Lymphocytes # (Manual) (1.5-3.5) 10^3/uL Monocytes # (Manual) (0.0-1.0) 10^3/uL Eosinophils # (Manual) (0-0.7) 10^3/uL Basophils # (Manual) (0-0.1) 10^3/uL Differential Comment WBC Morphology (NORMAL) Platelet Estimate (NORMAL) Platelet Morphology (NORMAL) RBC Morph Micro Appear (NORMAL) PT (9.9-12.6) secs INR (0.8-1.2) Bld Gas Analysis Time Sample Site ABG pH (7.35-7.45) ABG pCO2 (34-45) mmHg ABG pO2 (80-100) mmHg ABG HCO3 (22.0-26.0) mmol/L ABG Total CO2 (21.0-29.0) MMOL/L ABG O2 Saturation (94-98) % ABG Base Excess (-2.0-3.0) mmol/L Honorio Test VBG pH (7.31-7.41) Ionized Calcium (1.15-1.33) mmol/L O2 Delivery Device O2 Liters/Min LPM FiO2 Sodium 126 L (135-145) mmol/L Potassium 4.5 (3.5-5.0) mmol/L Chloride 89 L (101-111) mmol/L Carbon Dioxide 24 (21-32) mmol/L Anion Gap 13.0 (6-13) BUN 57 H (6-20) mg/dL Creatinine 1.7 H (0.6-1.2) mg/dL Estimated GFR (MDRD) 41 L (>89) Glucose 139 H (70-100) mg/dL Lactic Acid 3.7 H* (0.5-2.2) mmol/L Calcium 7.9 L (8.5-10.3) mg/dL Total Bilirubin (0.2-1.0) mg/dL Direct Bilirubin (0.1-0.5) mg/dL AST (10-42) IU/L ALT (10-60) IU/L Alkaline Phosphatase (42-121) IU/L Troponin I High Sens 82.6 H* (2.3-19.7) ng/L B-Natriuretic Peptide (5-100) pg/mL Total Protein (6.7-8.2) g/dL Albumin (3.2-5.5) g/dL Globulin (2.1-4.2) g/dL Nasal Screen MRSA (PCR) (NEGATIVE) 01/21/21 01/21/21 01/21/21 Range/Units 14:51 13:06 12:45 WBC (4.8-10.8) x10^3/uL RBC (4.70-6.10) 10^6/uL Hgb (14.0-18.0) g/dL Hct (42.0-52.0) % MCV (80.0-94.0) fL MCH (27.0-31.0) pg MCHC (32.0-36.0) g/dL RDW (12.0-15.0) % Plt Count (130-450) 10^3/uL MPV (7.4-11.4) fL Neut # (Auto) Lymph # (Auto) [place] # (Auto) Eos # (Auto) Baso # (Auto) Absolute Nucleated RBC Total Counted Band Neuts % (Manual) (0 - 10) % Abnorm Lymph % (Manual) % Nucleated RBC % Neutrophils # (Manual) (1.5-6.6) 10^3/uL Lymphocytes # (Manual) (1.5-3.5) 10^3/uL Monocytes # (Manual) (0.0-1.0) 10^3/uL Eosinophils # (Manual) (0-0.7) 10^3/uL Basophils # (Manual) (0-0.1) 10^3/uL Differential Comment WBC Morphology (NORMAL) Platelet Estimate (NORMAL) Platelet Morphology (NORMAL) RBC Morph Micro Appear (NORMAL) PT 21.2 H (9.9-12.6) secs INR 1.9 H (0.8-1.2) Bld Gas Analysis Time 1311 Sample Site RIGHT RADIAL ABG pH 7.44 (7.35-7.45) ABG pCO2 30 L (34-45) mmHg ABG pO2 92 (80-100) mmHg ABG HCO3 19.6 L (22.0-26.0) mmol/L ABG Total CO2 20.5 L (21.0-29.0) MMOL/L ABG O2 Saturation 97 (94-98) % ABG Base Excess -3.4 L (-2.0-3.0) mmol/L Honorio Test POSITIVE VBG pH (7.31-7.41) Ionized Calcium (1.15-1.33) mmol/L O2 Delivery Device NON REBREATHER MASK O2 Liters/Min 15.00 LPM FiO2 100.00 Sodium (135-145) mmol/L Potassium (3.5-5.0) mmol/L Chloride (101-111) mmol/L Carbon Dioxide (21-32) mmol/L Anion Gap (6-13) BUN (6-20) mg/dL Creatinine (0.6-1.2) mg/dL Estimated GFR (MDRD) (>89) Glucose (70-100) mg/dL Lactic Acid (0.5-2.2) mmol/L Calcium (8.5-10.3) mg/dL Total Bilirubin (0.2-1.0) mg/dL Direct Bilirubin (0.1-0.5) mg/dL AST (10-42) IU/L ALT (10-60) IU/L Alkaline Phosphatase (42-121) IU/L Troponin I High Sens (2.3-19.7) ng/L B-Natriuretic Peptide (5-100) pg/mL Total Protein (6.7-8.2) g/dL Albumin (3.2-5.5) g/dL Globulin (2.1-4.2) g/dL Nasal Screen MRSA (PCR) NEGATIVE (NEGATIVE) 01/21/21 Range/Units 12:43 WBC (4.8-10.8) x10^3/uL RBC (4.70-6.10) 10^6/uL Hgb (14.0-18.0) g/dL Hct (42.0-52.0) % MCV (80.0-94.0) fL MCH (27.0-31.0) pg MCHC (32.0-36.0) g/dL RDW (12.0-15.0) % Plt Count (130-450) 10^3/uL MPV (7.4-11.4) fL Neut # (Auto) Lymph # (Auto) [place] # (Auto) Eos # (Auto) Baso # (Auto) Absolute Nucleated RBC Total Counted Band Neuts % (Manual) (0 - 10) % Abnorm Lymph % (Manual) % Nucleated RBC % Neutrophils # (Manual) (1.5-6.6) 10^3/uL Lymphocytes # (Manual) (1.5-3.5) 10^3/uL Monocytes # (Manual) (0.0-1.0) 10^3/uL Eosinophils # (Manual) (0-0.7) 10^3/uL Basophils # (Manual) (0-0.1) 10^3/uL Differential Comment WBC Morphology (NORMAL) Platelet Estimate (NORMAL) Platelet Morphology (NORMAL) RBC Morph Micro Appear (NORMAL) PT (9.9-12.6) secs INR (0.8-1.2) Bld Gas Analysis Time Sample Site ABG pH (7.35-7.45) ABG pCO2 (34-45) mmHg ABG pO2 (80-100) mmHg ABG HCO3 (22.0-26.0) mmol/L ABG Total CO2 (21.0-29.0) MMOL/L ABG O2 Saturation (94-98) % ABG Base Excess (-2.0-3.0) mmol/L Honorio Test VBG pH (7.31-7.41) Ionized Calcium (1.15-1.33) mmol/L O2 Delivery Device O2 Liters/Min LPM FiO2 Sodium (135-145) mmol/L Potassium (3.5-5.0) mmol/L Chloride (101-111) mmol/L Carbon Dioxide (21-32) mmol/L Anion Gap (6-13) BUN (6-20) mg/dL Creatinine (0.6-1.2) mg/dL Estimated GFR (MDRD) (>89) Glucose (70-100) mg/dL Lactic Acid (0.5-2.2) mmol/L Calcium (8.5-10.3) mg/dL Total Bilirubin (0.2-1.0) mg/dL Direct Bilirubin (0.1-0.5) mg/dL AST (10-42) IU/L ALT (10-60) IU/L Alkaline Phosphatase (42-121) IU/L Troponin I High Sens 89.1 H* (2.3-19.7) ng/L B-Natriuretic Peptide (5-100) pg/mL Total Protein (6.7-8.2) g/dL Albumin (3.2-5.5) g/dL Globulin (2.1-4.2) g/dL Nasal Screen MRSA (PCR) (NEGATIVE) Impression and Recommendations - Palliative Care Impression: This is a 60-year-old gentleman who has multiple comorbidities, but currently has been hospitalized most acutely for 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 He does now present with hypotension, is in the ICU. He also has severe PVD with severe peripheral neuropathy. Patient's complex social situation as to the complexity of creating a transition plan, patient is aware of the seriousness of his illness. Palliative care providing support for advanced care planning, and transition plan. Recommendations/Counseling Done: 1. Peripheral neuropathy. Patient does report 7 out of 10 pain, gabapentin has been discontinued I suspect related to ESTEVAN and hypotension. Would restart when appropriate in the context of comfort, at 50% of his 600 mg. Patient does have opioids available if needed, has not followed through on trialing this. 2. Advanced care planning. Patient does understand the seriousness of his illness, continues to be quite fragile currently in ICU on pressors. Patient is hoping to have some improvement, though does understand may be revisiting for further end-of-life planning. Patient has been on hospice before, so this would be his second hospice benefit. Patient would need a safe discharge plan though, as would not be able to receive hospice support or services if he were to be returned to his previous homelessness situation. 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 And have been updated on situation. If patient is transitioning for end-of-life, they would like to come in and provide emotional/psychosocial support. 75 minutes with greater than 50% of this done in counseling regarding goals of care, anticipatory guidance, coordination of care with hospital team.
[2021-01-22 15:31] LABS: HEPATITIS A IGM NON-REACTIVE (NON-REACTIVE); HEPATITIS B CORE ANTIBODY IGM NON-REACTIVE (NON-REACTIVE); HEPATITIS B SURFACE ANTIGEN NON-REACTIVE (NON-REACTIVE); HEPATITIS C ANTIBODY REACTIVE (NON-REACTIVE)
[2021-01-23] MEDS ORDERED: LEVALBUTEROL 1.25 MG/3 ML NEB INH PRN (00:27)
[2021-01-23 05:29] LABS: MAGNESIUM 1.9 mg/dL (1.7-2.8); PHOSPHORUS 3.2 mg/dL (2.5-4.6)
[2021-01-23 05:34] LABS: ALBUMIN 3.2 g/dL (3.2-5.5); BILIRUBIN,DIRECT 0.9 mg/dL (0.1-0.5); BILIRUBIN,TOTAL 2.1 mg/dL (0.2-1.0); CALCIUM 8.3 mg/dL (8.5-10.3); CREATININE 1.3 mg/dL (0.6-1.2); POTASSIUM 4.2 mmol/L (3.5-5.0); TOTAL PROTEIN 5.6 g/dL (6.7-8.2)
[2021-01-23] MEDS: SODIUM CHLORIDE FLUSH 0.9% 10 ML SYRINGE IVP SCH ×3 (07:02→17:15)
--- NOTE | 2021-01-23 08:16 | PROVIDER PROGRESS NOTE ---
Assessment/Plan - Problem List (1) Cardiogenic shock Assessment/Plan: 01/23 Patient appeared improved clinically today. He was breathing comfortably on room air with oxygen saturation in the mid 90s. Weaning patient off Levophed as blood pressure to permit Midodrine 2.5 mg p.o. 3 times daily with meals 01/22 2D echocardiogram done today showed moderate left ventricular enlargement. Left ventricular wall thickness was normal. Overall left ventricular Systolic function is severely globally impaired with an ejection fraction less than 20%. There is a decrease in the ejection fraction compared to the previous echocardiogram done in 2019. At that time the patient's EF was about 25%. There was also moderate right ventricular enlargement. There was severe impairment in the right ventricular systolic function. Severe right atrial enlargement. There was no evidence of aortic stenosis or aortic regurgitation. Patient was started on Levophed. Systolic blood pressure has been in the low 100s with heart rate between 80 and 90. Metoprolol succinate has been held due to hypotension. Likewise patient's Lasix was held. Patient's case was presented to cardiology at [facility]. Cardiology stated that the patient will either need an LVAD or heart transplant. However given that he is homeless and has a history of alcohol abuse he is not a candidate. I discussed the patient's condition with him highlighting that he was in end- stage heart failure which would likely lead to his demise. He expressed understanding. He had been on hospice in the past but was discharged when he seemed to be maintaining his clinical condition for a long time. Palliative care consult was ordered. He was seen by Lashawn Mark. We will discuss his care further in the following day. (2) Acute on chronic systolic and diastolic heart failure, NYHA class 4 Assessment/Plan: 01/23 On digoxin 125 mcg p.o. daily. We will check digoxin level in the morning on 01/24/2021 Carvedilol 3.125 mg p.o. twice daily Lasix 40 mg IV given today. We will decrease to Lasix 20 mg IV daily tomorrow 01/24/2021. 01/22 2D echocardiogram done today showed moderate left ventricular enlargement. Left ventricular wall thickness was normal. Overall left ventricular Systolic function is severely globally impaired with an ejection fraction less than 20%. There is a decrease in the ejection fraction compared to the previous echocardiogram done in 2019. At that time the patient's EF was about 25%. There was also moderate right ventricular enlargement. There was severe impairment in the right ventricular systolic function. Severe right atrial enlargement. There was no evidence of aortic stenosis or aortic regurgitation. (3) Acute respiratory failure with hypoxemia Assessment/Plan: Improved. Secondary to end-stage heart failure/cardiogenic shock. Breathing comfortably on room air with oxygen saturation in the mid 90s. CT angiogram of the chest was negative for PE. (4) Peripheral vascular disease Assessment/Plan: His lower extremities appeared dusky with diminished pulses. Patient denied any pain Dopplers of the lower extremities done on 01/20/2021 showed high-grade stenosis in the left distal Superficial femoral artery and left posterior tibial artery. Coloration of lower extremity continues to be improved today 01/23/2021. Repeat lactic acid was 2.0. Currently weaning patient off Levophed. (5) Hepatitis Assessment/Plan: Likely multifactorial secondary to alcohol use, ischemic hepatopathy or viral hepatitis. Discriminant factor was 77. Hepatitis panel pending. AST 507<--840<--683<--1045 ALT 792<--976<--1031<--1339 Alk Phos 173<--159<--188<--232 (6) ESTEVAN (acute kidney injury) Assessment/Plan: Likely secondary to to Cardiogenic shock/End-stage CHF . Creatinine at admission was 2.4. Creatinine today was 1.7. On 01/23/2021 creatinine was 1.3, BUN 55, estimated GFR 57. Lasix decreased to 20mg IV daily. (7) NSTEMI (non-ST elevated myocardial infarction) Assessment/Plan: Likely secondary to cardiogenic shock/ end-stage heart failure. Initial troponin was 89.1, then 82.6, then 202.7, then 292.9, then 234.5 He was not started on an antiplatelet due to platelet of 91. Last INR was 1.9. This is likely due to poor liver function with hepatitis. on Coreg 3.125mg po bid Patient was presented to cardiology at [place]. After considering his case stated that he patient would likely need an LVAD or heart transplant. However given that he has history of alcohol abuse and is homeless he would not be a candidate. Palliative consult in place. - Current Meds Current Meds: Current Medications Generic Name Dose Route Start Last Admin Trade Name Freq PRN Reason Stop Dose Admin Furosemide 40 mg 01/22/21 09:00 01/22/21 09:22 Furosemide 40 Mg/4 Ml Vial IVP Not Given DAILY YONATHAN Norepinephrine Bitartrate 8 mg 250 mls @ 15 mls/hr 01/21/21 21:00 01/23/21 07:19 / Dextrose IV 2 mcg/min .[id number] YONATHAN 3.75 mls/hr Titration Protocol 8 MCG/MIN Morphine Sulfate 1 mg 01/18/21 21:45 01/21/21 01:30 Morphine 2 Mg/Ml Carpuject IVP 1 mg Q4HR PRN Administration PAIN Multivitamins 1 tab 01/19/21 08:00 01/22/21 08:03 Multivitamin Tablet PO 1 tab DAILYWM YONATHAN Administration Ondansetron HCl 4 mg 01/18/21 18:18 01/19/21 23:45 Ondansetron 4 Mg/2 Ml Vial IVP 4 mg Q6HR PRN Administration Nausea / Vomiting Oxycodone HCl 5 mg 01/18/21 18:18 01/22/21 18:14 Oxycodone 5 Mg Tablet PO 5 mg Q4HR PRN Administration Pain 5 to 7 Polyethylene Glycol 17 gm 01/22/21 09:00 01/22/21 09:10 Polyethylene Glycol 3350 17 Gm Packet PO 17 gm DAILY YONATHAN Administration Sodium Chloride 10 ml 01/18/21 18:18 01/18/21 22:19 Sodium Chloride Flush 0.9% 10 Ml Syringe IVP 10 ml PRN PRN Administration NEEDED PER PROVIDER ORDERS Sodium Chloride 10 ml 01/19/21 01:00 01/23/21 07:02 Sodium Chloride Flush 0.9% 10 Ml Syringe IVP 10 ml 0100,0900,1700 YONATHAN Administration Thiamine HCl 100 mg 01/19/21 09:00 01/22/21 08:03 Thiamine 100 Mg Tablet PO 100 mg DAILY YONATHAN Administration - Lab Result Fish Bone Diagrams: 01/23/21 08:40 01/23/21 04:35 - Additional Planning My Orders: My Active Orders 01/22/21 08:17 Palliative Care Consult [CONS] Routine 01/22/21 09:00 FUROSEMIDE INJ 40mg VIAL [LASIX INJ 40 mg VIAL] 40 mg IVP DAILY 01/23/21 08:12 CBC - COMP BLD CT W/AUTO DIFF [HEME] Routine 01/24/21 05:00 CBC - COMP BLD CT W/AUTO DIFF [HEME] DAILYLAB COMPREHENSIVE METABOLIC PANEL [CHEM] DAILYLAB 01/25/21 05:00 CBC - COMP BLD CT W/AUTO DIFF [HEME] DAILYLAB COMPREHENSIVE METABOLIC PANEL [CHEM] DAILYLAB 01/26/21 05:00 CBC - COMP BLD CT W/AUTO DIFF [HEME] DAILYLAB COMPREHENSIVE METABOLIC PANEL [CHEM] DAILYLAB 01/27/21 05:00 CBC - COMP BLD CT W/AUTO DIFF [HEME] DAILYLAB COMPREHENSIVE METABOLIC PANEL [CHEM] DAILYLAB 01/28/21 05:00 CBC - COMP BLD CT W/AUTO DIFF [HEME] DAILYLAB COMPREHENSIVE METABOLIC PANEL [CHEM] DAILYLAB Subjective - Subjective Patient Reports: Other (Appeared significantly improved clinically today. Denied chest pain or difficulty in breathing. Was able to converse at room air with no difficulties. Oxygen saturation was in the mid 90s.) Objective Vital Signs: Vital Signs - 24 hr 01/22/21 01/22/21 01/22/21 09:00 10:00 11:00 Temperature Heart Rate [ 95 94 91 Monitoring electrodes] Respiratory 22 16 19 Rate Blood Pressure 91/68 91/66 98/73 [Left Radial artery] Blood Pressure [Right Brachial artery] O2 Saturation 98 97 96 01/22/21 01/22/21 01/22/21 12:00 13:00 14:00 Temperature 37.0 C Heart Rate [ 89 88 84 Monitoring electrodes] Respiratory 12 16 13 Rate Blood Pressure 90/71 109/79 104/68 [Left Radial artery] Blood Pressure [Right Brachial artery] O2 Saturation 98 100 98 01/22/21 01/22/21 01/22/21 15:00 16:00 17:00 Temperature 36.8 C Heart Rate [ 92 90 85 Monitoring electrodes] Respiratory 16 13 15 Rate Blood Pressure 101/80 106/77 108/74 [Left Radial artery] Blood Pressure [Right Brachial artery] O2 Saturation 97 98 97 01/22/21 01/22/21 01/22/21 18:00 19:00 19:59 Temperature 36.8 C Heart Rate [ 87 90 89 Monitoring electrodes] Respiratory 12 15 18 Rate Blood Pressure 109/79 118/80 104/72 [Left Radial artery] Blood Pressure [Right Brachial artery] O2 Saturation 95 97 96 01/22/21 01/22/21 01/22/21 20:57 22:00 23:00 Temperature Heart Rate [ 86 85 88 Monitoring electrodes] Respiratory 16 18 7 L Rate Blood Pressure 110/74 110/74 107/80 [Left Radial artery] Blood Pressure [Right Brachial artery] O2 Saturation 96 96 98 01/22/21 01/23/21 01/23/21 23:58 01:00 02:00 Temperature 36.8 C Heart Rate [ 85 90 88 Monitoring electrodes] Respiratory 17 17 14 Rate Blood Pressure 114/73 106/75 113/84 H [Left Radial artery] Blood Pressure [Right Brachial artery] O2 Saturation 96 93 94 01/23/21 01/23/21 01/23/21 03:00 04:00 05:00 Temperature 36.7 C Heart Rate [ 91 85 91 Monitoring electrodes] Respiratory 9 L 14 14 Rate Blood Pressure 100/77 [Left Radial artery] Blood Pressure 92/80 101/84 H [Right Brachial artery] O2 Saturation 97 99 96 01/23/21 01/23/21 01/23/21 06:00 07:00 07:53 Temperature 36.8 C Heart Rate [ 92 87 95 Monitoring electrodes] Respiratory 16 23 12 Rate Blood Pressure [Left Radial artery] Blood Pressure 139/95 H 107/88 H 99/71 [Right Brachial artery] O2 Saturation 96 97 94 Oxygen O2 Source Room air I&O (Last 24 Hrs): Intake and Output Totals x24h 01/21/21 01/22/21 01/23/21 23:59 23:59 23:59 Intake Total 1910 1160.750 208.875 Output Total 725 875 725 Balance 1185 285.750 -516.125 Comments/Notes: General: Alert, Oriented x3, No acute distress, Other (Disheveled) HEENT: PERRLA, EOMI Neck: Supple, No JVD Neuro: Alert Cardiovascular: Regular rate Respiratory: Chest non-tender, No respiratory distress, Breath sounds nml Abdomen: Normal bowel sounds, Soft, No tenderness Extremities: No cyanosis, Other (diminished pedal pulses bilaterally) Comments/Notes: - Results Results: Laboratory Results WBC 13.5 x10^3/uL (4.8-10.8) H 01/22/21 05:32 RBC 3.98 10^6/uL (4.70-6.10) L 01/22/21 05:32 Hgb 13.4 g/dL (14.0-18.0) L 01/22/21 05:32 Hct 39.7 % (42.0-52.0) L 01/22/21 05:32 MCV 99.7 fL (80.0-94.0) H 01/22/21 05:32 MCH 33.7 pg (27.0-31.0) H 01/22/21 05:32 MCHC 33.8 g/dL (32.0-36.0) 01/22/21 05:32 RDW 14.6 % (12.0-15.0) 01/22/21 05:32 Plt Count 81 10^3/uL (130-450) L 01/22/21 05:32 MPV 13.0 fL (7.4-11.4) H 01/22/21 05:32 Neut # (Auto) Not Reportable 01/22/21 05:32 Lymph # (Auto) Not Reportable 01/22/21 05:32 [place] # (Auto) Not Reportable 01/22/21 05:32 Eos # (Auto) Not Reportable 01/22/21 05:32 Baso # (Auto) Not Reportable 01/22/21 05:32 Absolute Nucleated RBC Not Reportable 01/22/21 05:32 Total Counted 100 01/22/21 05:32 Band Neuts % (Manual) 0 % (0-10) 01/22/21 05:32 Reactive Lymphs % (Man) 3 % 01/18/21 16:51 Abnorm Lymph % (Manual) 0 % 01/22/21 05:32 Nucleated RBC % Not Reportable 01/22/21 05:32 Neutrophils # (Manual) 9.7 10^3/uL (1.5-6.6) H 01/22/21 05:32 Lymphocytes # (Manual) 1.4 10^3/uL (1.5-3.5) L 01/22/21 05:32 Monocytes # (Manual) 2.4 10^3/uL (0.0-1.0) H 01/22/21 05:32 Eosinophils # (Manual) 0.0 10^3/uL (0-0.7) 01/22/21 05:32 Basophils # (Manual) 0.0 10^3/uL (0-0.1) 01/22/21 05:32 Differential Comment MANUAL DIFFERENTIAL 01/22/21 05:32 WBC Morphology NORMAL APPEARANCE (NORMAL) 01/22/21 05:32 Platelet Estimate DECREASED (<130,000) (NORMAL) 01/22/21 05:32 Platelet Morphology NORMAL APPEARANCE (NORMAL) 01/22/21 05:32 RBC Morph Micro Appear NORMAL APPEARANCE (NORMAL) 01/22/21 05:32 PT 21.2 secs (9.9-12.6) H 01/21/21 14:51 INR 1.9 (0.8-1.2) H 01/21/21 14:51 Bld Gas Analysis Time 1311 01/21/21 13:06 Sample Site RIGHT RADIAL 01/21/21 13:06 ABG pH 7.44 (7.35-7.45) 01/21/21 13:06 ABG pCO2 30 mmHg (34-45) L 01/21/21 13:06 ABG pO2 92 mmHg (80-100) 01/21/21 13:06 ABG HCO3 19.6 mmol/L (22.0-26.0) L 01/21/21 13:06 ABG Total CO2 20.5 MMOL/L (21.0-29.0) L 01/21/21 13:06 ABG O2 Saturation 97 % (94-98) 01/21/21 13:06 ABG Base Excess -3.4 mmol/L (-2.0-3.0) L 01/21/21 13:06 Honorio Test POSITIVE 01/21/21 13:06 VBG pH 7.363 (7.31-7.41) 01/22/21 07:00 Ionized Calcium 1.02 mmol/L (1.15-1.33) L 01/22/21 07:00 O2 Delivery Device NON REBREATHER MASK 01/21/21 13:06 O2 Liters/Min 15.00 LPM 01/21/21 13:06 FiO2 100.00 01/21/21 13:06 Sodium 128 mmol/L (135-145) L 01/23/21 04:35 Potassium 4.2 mmol/L (3.5-5.0) 01/23/21 04:35 Chloride 89 mmol/L (101-111) L 01/23/21 04:35 Carbon Dioxide 30 mmol/L (21-32) 01/23/21 04:35 Anion Gap 9.0 (6-13) 01/23/21 04:35 BUN 55 mg/dL (6-20) H 01/23/21 04:35 Creatinine 1.3 mg/dL (0.6-1.2) H 01/23/21 04:35 Estimated GFR (MDRD) 57 (>89) L 01/23/21 04:35 Glucose 122 mg/dL (70-100) H 01/23/21 04:35 Lactic Acid 2.0 mmol/L (0.5-2.2) 01/22/21 19:02 Calcium 8.3 mg/dL (8.5-10.3) L 01/23/21 04:35 Phosphorus 3.2 mg/dL (2.5-4.6) 01/23/21 04:35 Magnesium 1.9 mg/dL (1.7-2.8) 01/23/21 04:35 Total Bilirubin 2.1 mg/dL (0.2-1.0) H 01/23/21 04:35 Direct Bilirubin 0.9 mg/dL (0.1-0.5) H 01/23/21 04:35 AST 507 IU/L (10-42) H 01/23/21 04:35 ALT 792 IU/L (10-60) H 01/23/21 04:35 Alkaline Phosphatase 173 IU/L (42-121) H 01/23/21 04:35 Troponin I High Sens 234.5 ng/L (2.3-19.7) H* 01/22/21 19:02 B-Natriuretic Peptide 6781.00 pg/mL (5-100) H 01/23/21 04:35 Total Protein 5.6 g/dL (6.7-8.2) L 01/23/21 04:35 Albumin 3.2 g/dL (3.2-5.5) 01/23/21 04:35 Globulin 2.4 g/dL (2.1-4.2) 01/23/21 04:35 Albumin/Globulin Ratio 1.3 (1.0-2.2) 01/18/21 16:51 TSH 7.65 uIU/mL (0.34-5.60) H 01/23/21 04:35 Nasal Adenovirus (PCR) NOT DETECTED 01/18/21 18:22 Nasal B. parapertussis DNA (PCR) NOT DETECTED 01/18/21 18:22 Nasal Coronavir 229E PCR NOT DETECTED 01/18/21 18:22 Nasal Coronavir HKU1 PCR NOT DETECTED 01/18/21 18:22 Nasal Coronavir NL63 PCR NOT DETECTED 01/18/21 18:22 Nasal Coronavir OC43 PCR NOT DETECTED 01/18/21 18:22 Nasal Enterovir/Rhinovir PCR NOT DETECTED 01/18/21 18:22 Nasal Influenza B PCR NOT DETECTED 01/18/21 18:22 Nasal Influenza A PCR NOT DETECTED 01/18/21 18:22 Nasal Parainfluen 1 PCR NOT DETECTED 01/18/21 18:22 Nasal Parainfluen 2 PCR NOT DETECTED 01/18/21 18:22 Nasal Parainfluen 3 PCR NOT DETECTED 01/18/21 18:22 Nasal Parainfluen 4 PCR NOT DETECTED 01/18/21 18:22 Nasal RSV (PCR) NOT DETECTED 01/18/21 18:22 Nasal Screen MRSA (PCR) NEGATIVE (NEGATIVE) 01/21/21 12:45 Nasal B.pertussis DNA PCR NOT DETECTED 01/18/21 18:22 Nasal C.pneumoniae (PCR) NOT DETECTED 01/18/21 18:22 [place] Human Metapneumo PCR NOT DETECTED 01/18/21 18:22 Nasal M.pneumoniae (PCR) NOT DETECTED 01/18/21 18:22 Nasal SARS-CoV-2 (PCR) NOT DETECTED 01/18/21 18:22 Ethyl Alcohol < 5.0 mg/dL 01/18/21 16:51 Hepatitis A IgM Ab NON-REACTIVE (NON-REACTIVE) 01/19/21 06:19 Hep Bs Antigen NON-REACTIVE (NON-REACTIVE) 01/19/21 06:19 Hep B Core IgM Ab NON-REACTIVE (NON-REACTIVE) 01/19/21 06:19 Hepatitis C Antibody REACTIVE (NON-REACTIVE) A 01/19/21 06:19 Hep C Ab Signal/Cutoff 6.50 (<1.00) H 01/19/21 06:19 - Procedures Procedures: Procedures COLONOSCOPY (08/16/13) ABX Reporting Has patient been on IV antibiotics over the past 48 hours?: No
[2021-01-23] MEDS: polyethylene glycoL 3350 17 GM PACKET PO SCH (08:19)
[2021-01-23] MEDS: carvediloL 3.125 MG TABLET PO SCH ×2 (08:20→21:27)
[2021-01-23] MEDS: MIDODRINE 2.5 MG TABLET PO SCH ×3 (08:20→17:15)
[2021-01-23] MEDS: DIGOXIN 125 MCG TABLET PO SCH (08:20)
[2021-01-23] MEDS: MULTIVITAMIN TABLET PO SCH (08:20)
[2021-01-23] MEDS: THIAMINE 100 MG TABLET PO SCH (08:22)
[2021-01-23] MEDS: FUROSEMIDE 40 MG/4 ML VIAL IVP SCH ×2 (08:23→11:21)
[2021-01-23 09:00] LABS: BASOPHILS % (AUTO) 0.3 %; EOSINOPHILS # (AUTO) 0.1 10^3/uL (0.0-0.7); EOSINOPHILS % (AUTO) 0.9 %; HCT - HEMATOCRIT 38.7 % (42.0-52.0); LYMPHOCYTES # (AUTO) 1.1 10^3/uL (1.5-3.5); LYMPHOCYTES % (AUTO) 10.9 %; MEAN CORPUSCULAR HEMOGLOBIN 33.2 pg (27.0-31.0); MEAN CORPUSCULAR HGB CONC 33.6 g/dL (32.0-36.0); MEAN CORPUSCULAR VOLUME 98.7 fL (80.0-94.0); MEAN PLATELET VOLUME 12.5 fL (7.4-11.4); MONOCYTES # (AUTO) 1.8 10^3/uL (0.0-1.0); MONOCYTES % (AUTO) 18.6 %; NEUTROPHILS # (AUTO) 6.7 10^3/uL (1.5-6.6); NEUTROPHILS % (AUTO) 68.6 %; PLT - PLATELET COUNT 88 10^3/uL (130-450); RED BLOOD COUNT 3.92 10^6/uL (4.70-6.10); RED CELL DISTRIBUTION WIDTH 14.6 % (12.0-15.0); WHITE BLOOD COUNT 9.7 x10^3/uL (4.8-10.8)
[2021-01-23 09:05] LABS: SLIDE REVIEW? Indicated
[2021-01-23 10:10] LABS: PLATELET ESTIMATE, MANUAL DECREASED (<130,000) (NORMAL); PLATELET MORPHOLOGY NORMAL APPEARANCE (NORMAL); RBC MORPHOLOGY (MULTIPLE) NORMAL APPEARANCE (NORMAL); WBC MORPHOLOGY (MULTIPLE) NORMAL APPEARANCE (NORMAL)
[2021-01-23] MEDS: CALCIUM CARBONATE CHEW 500 MG TABLET PO SCH ×2 (12:20→17:15)
[2021-01-23] MEDS: oxyCODONE 5 MG TABLET PO PRN ×2 (17:15→21:27)
[2021-01-24] MEDS: MORPHINE 2 MG/ML CARPUJECT IVP PRN (04:15)
[2021-01-24 05:30] LABS: ALKALINE PHOSPHATASE 153 IU/L (42-121); ALT ALANINE AMINOTRANSFERASE 589 IU/L (10-60); AST ASPARTATE AMINOTRANSFERASE 328 IU/L (10-42); BILIRUBIN,TOTAL 1.9 mg/dL (0.2-1.0); BUN - BLOOD UREA NITROGEN 44 mg/dL (6-20); CALCIUM 8.2 mg/dL (8.5-10.3); CARBON DIOXIDE - CO2 32 mmol/L (21-32); CHLORIDE 90 mmol/L (101-111); CREATININE 1.1 mg/dL (0.6-1.2); GFR - MDRD 69 (>89); GLUCOSE 106 mg/dL (70-100); POTASSIUM 4.1 mmol/L (3.5-5.0); SODIUM 130 mmol/L (135-145); TOTAL PROTEIN 5.3 g/dL (6.7-8.2)
[2021-01-24 05:31] LABS: ALBUMIN 2.9 g/dL (3.2-5.5); ALBUMIN/GLOBULIN RATIO 1.2 (1.0-2.2); DIGOXIN < 0.2 ng/mL
--- NOTE | 2021-01-24 07:30 | PROVIDER PROGRESS NOTE ---
Assessment/Plan - Problem List (1) Cardiogenic shock Assessment/Plan: 01/24 Midodrine increased to 5 mg p.o. 3 times daily with meals. Attempts to wean patient off Levophed resulted in a systolic blood pressure of 80. Dr. Ott with the hospice service was consulted. 01/23 Patient appeared improved clinically today. He was breathing comfortably on room air with oxygen saturation in the mid 90s. Weaning patient off Levophed as blood pressure to permit Midodrine 2.5 mg p.o. 3 times daily with meals 01/22 2D echocardiogram done today showed moderate left ventricular enlargement. Left ventricular wall thickness was normal. Overall left ventricular Systolic function is severely globally impaired with an ejection fraction less than 20%. There is a decrease in the ejection fraction compared to the previous echocardiogram done in 2019. At that time the patient's EF was about 25%. There was also moderate right ventricular enlargement. There was severe impairment in the right ventricular systolic function. Severe right atrial enlargement. There was no evidence of aortic stenosis or aortic regurgitation. Patient was started on Levophed. Systolic blood pressure has been in the low 100s with heart rate between 80 and 90. Metoprolol succinate has been held due to hypotension. Likewise patient's Lasix was held. Patient's case was presented to cardiology at [facility]. Cardiology stated that the patient will either need an LVAD or heart transplant. However given that he is homeless and has a history of alcohol abuse he is not a candidate. I discussed the patient's condition with him highlighting that he was in end- stage heart failure which would likely lead to his demise. He expressed understanding. He had been on hospice in the past but was discharged when he seemed to be maintaining his clinical condition for a long time. Palliative care consult was ordered. He was seen by Lashawn Mark. We will discuss his care further in the following day. (2) Acute on chronic systolic and diastolic heart failure, NYHA class 4 Assessment/Plan: 01/24 Midodrine increased to 5 mg p.o. 3 times daily with meals. Attempts to wean patient off Levophed resulted in a systolic blood pressure of 80. Dr. Ott with the hospice service was consulted. 01/23 On digoxin 125 mcg p.o. daily. We will check digoxin level in the morning on 01/24/2021 Carvedilol 3.125 mg p.o. twice daily Lasix 40 mg IV given today. We will decrease to Lasix 20 mg IV daily tomorrow 01/24/2021. 01/22 2D echocardiogram done today showed moderate left ventricular enlargement. Left ventricular wall thickness was normal. Overall left ventricular Systolic functi on is severely globally impaired with an ejection fraction less than 20%. There is a decrease in the ejection fraction compared to the previous echocardiogram done in 2019. At that time the patient's EF was about 25%. There was also moderate right ventricular enlargement. There was severe impairment in the right ventricular systolic function. Severe right atrial enlargement. There was no evidence of aortic stenosis or aortic regurgitation. (3) Acute respiratory failure with hypoxemia Assessment/Plan: Stable Secondary to end-stage heart failure/cardiogenic shock. Breathing comfortably on room air with oxygen saturation in the mid 90s. CT angiogram of the chest was negative for PE. (4) Peripheral vascular disease Assessment/Plan: His lower extremities appeared dusky with diminished pulses. Patient denied any pain Dopplers of the lower extremities done on 01/20/2021 showed high-grade stenosis in the left distal Superficial femoral artery and left posterior tibial artery. Coloration of lower extremity continues to be improved today 01/23/2021. Repeat lactic acid was 2.0. Currently weaning patient off Levophed. (5) Hepatitis Assessment/Plan: Likely multifactorial secondary to alcohol use, ischemic hepatopathy or viral hepatitis. Discriminant factor was 77. Hepatitis panel pending. AST 328<--507<--840<--683<--1045 ALT 589<--792<--976<--1031<--1339 Alk Phos 153<--173<--159<--188<--232 (6) ESTEVAN (acute kidney injury) Assessment/Plan: Improved/Resolved Likely secondary to to Cardiogenic shock/End-stage CHF . Creatinine at admission was 2.4. On 01/24/2021 creatinine was 1.1, BUN 44, estimated GFR 69. Lasix decreased to 20mg IV daily. (7) NSTEMI (non-ST elevated myocardial infarction) Assessment/Plan: Likely secondary to cardiogenic shock/ end-stage heart failure. Initial troponin was 89.1, then 82.6, then 202.7, then 292.9, then 234.5 He was not started on an antiplatelet due to platelet of 91. Last INR was 1.9. This is likely due to poor liver function with hepatitis. On Coreg 3.125mg po bid Patient was presented to cardiology at [facility]. After considering his case stated that he patient would likely need an LVAD or heart transplant. However given that he has history of alcohol abuse and is homeless he would not be a candidate. Palliative consult in place. - Current Meds Current Meds: Current Medications Generic Name Dose Route Start Last Admin Trade Name Freq PRN Reason Stop Dose Admin Carvedilol 3.125 mg 01/23/21 09:00 01/23/21 21:27 Carvedilol 3.125 Mg Tablet PO 3.125 mg BID YONATHAN Administration Digoxin 125 mcg 01/23/21 09:00 01/23/21 08:20 Digoxin 125 Mcg Tablet PO 125 mcg DAILY YONATHAN Administration Furosemide 20 mg 01/23/21 09:00 01/23/21 11:21 Furosemide 40 Mg/4 Ml Vial IVP Not Given DAILY YONATHAN Norepinephrine Bitartrate 8 mg 250 mls @ 15 mls/hr 01/21/21 21:00 01/24/21 07:05 / Dextrose IV 0 mcg/min .[id number] YONATHAN 0 mls/hr Titration Protocol 8 MCG/MIN Midodrine 2.5 mg 01/23/21 08:00 01/23/21 17:15 Midodrine 2.5 Mg Tablet PO 2.5 mg TIDWM YONATHAN Administration Morphine Sulfate 1 mg 01/18/21 21:45 01/24/21 04:15 Morphine 2 Mg/Ml Carpuject IVP 1 mg Q4HR PRN Administration PAIN Multivitamins 1 tab 01/19/21 08:00 01/23/21 08:20 Multivitamin Tablet PO 1 tab DAILYWM YONATHAN Administration Ondansetron HCl 4 mg 01/18/21 18:18 01/19/21 23:45 Ondansetron 4 Mg/2 Ml Vial IVP 4 mg Q6HR PRN Administration Nausea / Vomiting Oxycodone HCl 5 mg 01/18/21 18:18 01/23/21 21:27 Oxycodone 5 Mg Tablet PO 5 mg Q4HR PRN Administration Pain 5 to 7 Polyethylene Glycol 17 gm 01/22/21 09:00 01/23/21 08:19 Polyethylene Glycol 3350 17 Gm Packet PO 17 gm DAILY YONATHAN Administration Sodium Chloride 10 ml 01/18/21 18:18 01/18/21 22:19 Sodium Chloride Flush 0.9% 10 Ml Syringe IVP 10 ml PRN PRN Administration NEEDED PER PROVIDER ORDERS Sodium Chloride 10 ml 01/19/21 01:00 01/23/21 17:15 Sodium Chloride Flush 0.9% 10 Ml Syringe IVP 10 ml 0100,0900,1700 YONATHAN Administration Thiamine HCl 100 mg 01/19/21 09:00 01/23/21 08:22 Thiamine 100 Mg Tablet PO 100 mg DAILY YONATHAN Administration - Lab Result Fish Bone Diagrams: 01/24/21 04:26 01/24/21 04:26 - Additional Planning My Orders: My Active Orders 01/23/21 09:00 FUROSEMIDE INJ 40mg VIAL [LASIX INJ 40 mg VIAL] 20 mg IVP DAILY 01/24/21 04:26 CBC - COMP BLD CT W/AUTO DIFF [HEME] DAILYLAB 01/25/21 05:00 CBC - COMP BLD CT W/AUTO DIFF [HEME] DAILYLAB COMPREHENSIVE METABOLIC PANEL [CHEM] DAILYLAB 01/26/21 05:00 CBC - COMP BLD CT W/AUTO DIFF [HEME] DAILYLAB COMPREHENSIVE METABOLIC PANEL [CHEM] DAILYLAB 01/27/21 05:00 CBC - COMP BLD CT W/AUTO DIFF [HEME] DAILYLAB COMPREHENSIVE METABOLIC PANEL [CHEM] DAILYLAB 01/28/21 05:00 CBC - COMP BLD CT W/AUTO DIFF [HEME] DAILYLAB COMPREHENSIVE METABOLIC PANEL [CHEM] DAILYLAB Subjective - Subjective Patient Reports: Other (Patient was resting comfortably in bed at time of exam. He denied chest pain or difficulty breathing. Attempts to wean off his Levophed resulted in a systolic blood pressure in the eighties. Oxygen saturation is in the mid nineties on room air.) Objective Vital Signs: Vital Signs - 24 hr 01/23/21 01/23/21 01/23/21 07:53 09:00 10:00 Temperature 36.8 C Heart Rate [ 95 96 91 Monitoring electrodes] Respiratory 12 14 22 Rate Blood Pressure 99/71 100/84 H 116/83 H [Right Brachial artery] O2 Saturation 94 96 90 L 01/23/21 01/23/21 01/23/21 11:00 12:00 13:00 Temperature 36.6 C Heart Rate [ 91 90 84 Monitoring electrodes] Respiratory 22 16 12 Rate Blood Pressure 96/71 98/67 103/75 [Right Brachial artery] O2 Saturation 90 L 92 96 01/23/21 01/23/21 01/23/21 14:43 16:00 17:00 Temperature 96.7 C H Heart Rate [ 84 80 80 Monitoring electrodes] Respiratory 16 15 15 Rate Blood Pressure 90/71 98/67 98/67 [Right Brachial artery] O2 Saturation 94 90 L 95 01/23/21 01/23/21 01/23/21 18:00 19:00 20:00 Temperature 36.7 C Heart Rate [ 84 84 84 Monitoring electrodes] Respiratory 13 14 11 L Rate Blood Pressure 81/69 L 90/70 86/67 L [Right Brachial artery] O2 Saturation 93 95 91 L 01/23/21 01/23/21 01/23/21 21:00 22:00 23:00 Temperature Heart Rate [ 83 80 83 Monitoring electrodes] Respiratory 18 14 24 Rate Blood Pressure 92/60 69/52 L 109/95 H [Right Brachial artery] O2 Saturation 95 94 90 L 01/24/21 01/24/21 01/24/21 00:00 01:00 01:57 Temperature 36.7 C Heart Rate [ 82 83 83 Monitoring electrodes] Respiratory 12 12 12 Rate Blood Pressure 91/76 77/63 L 77/63 L [Right Brachial artery] O2 Saturation 94 89 L 96 01/24/21 01/24/21 01/24/21 04:00 05:00 06:00 Temperature 36.7 C Heart Rate [ 80 81 77 Monitoring electrodes] Respiratory 14 8 L 10 L Rate Blood Pressure 125/96 H 89/79 L 100/84 H [Right Brachial artery] O2 Saturation 98 95 94 01/24/21 06:54 Temperature Heart Rate [ 76 Monitoring electrodes] Respiratory 11 L Rate Blood Pressure 101/81 H [Right Brachial artery] O2 Saturation 92 Oxygen O2 Source Room air I&O (Last 24 Hrs): Intake and Output Totals x24h 01/22/21 01/23/21 01/24/21 23:59 23:59 23:59 Intake Total 0891.132 7117.937 149.062 Output Total 875 1825 Balance 285.750 -756.063 149.062 Comments/Notes: General: Alert, Oriented x3, No acute distress, Other (Disheveled) HEENT: PERRLA, EOMI Neck: Supple, No JVD Neuro: Alert Cardiovascular: Regular rate Respiratory: Chest non-tender, No respiratory distress, Breath sounds nml Abdomen: Normal bowel sounds, Soft, No tenderness Extremities: No cyanosis, Other (diminished pedal pulses bilaterally) - Results Results: Laboratory Results WBC 9.7 x10^3/uL (4.8-10.8) 01/23/21 08:40 RBC 3.92 10^6/uL (4.70-6.10) L 01/23/21 08:40 Hgb 13.0 g/dL (14.0-18.0) L 01/23/21 08:40 Hct 38.7 % (42.0-52.0) L 01/23/21 08:40 MCV 98.7 fL (80.0-94.0) H 01/23/21 08:40 MCH 33.2 pg (27.0-31.0) H 01/23/21 08:40 MCHC 33.6 g/dL (32.0-36.0) 01/23/21 08:40 RDW 14.6 % (12.0-15.0) 01/23/21 08:40 Plt Count 88 10^3/uL (130-450) L 01/23/21 08:40 MPV 12.5 fL (7.4-11.4) H 01/23/21 08:40 Neut # (Auto) 6.7 10^3/uL (1.5-6.6) H 01/23/21 08:40 Lymph # (Auto) 1.1 10^3/uL (1.5-3.5) L 01/23/21 08:40 Mathews # (Auto) 1.8 10^3/uL (0.0-1.0) H 01/23/21 08:40 Eos # (Auto) 0.1 10^3/uL (0.0-0.7) 01/23/21 08:40 Baso # (Auto) 0.0 10^3/uL (0.0-0.1) 01/23/21 08:40 Absolute Nucleated RBC 0.00 x10^3/uL 01/23/21 08:40 Total Counted 100 01/22/21 05:32 Band Neuts % (Manual) 0 % (0-10) 01/22/21 05:32 Reactive Lymphs % (Man) 3 % 01/18/21 16:51 Abnorm Lymph % (Manual) 0 % 01/22/21 05:32 Nucleated RBC % 0.0 /100WBC 01/23/21 08:40 Neutrophils # (Manual) 9.7 10^3/uL (1.5-6.6) H 01/22/21 05:32 Lymphocytes # (Manual) 1.4 10^3/uL (1.5-3.5) L 01/22/21 05:32 Monocytes # (Manual) 2.4 10^3/uL (0.0-1.0) H 01/22/21 05:32 Eosinophils # (Manual) 0.0 10^3/uL (0-0.7) 01/22/21 05:32 Basophils # (Manual) 0.0 10^3/uL (0-0.1) 01/22/21 05:32 Differential Comment MANUAL DIFFERENTIAL 01/22/21 05:32 Manual Slide Review Indicated 01/23/21 08:40 WBC Morphology NORMAL APPEARANCE (NORMAL) 01/23/21 08:40 Platelet Estimate DECREASED (<130,000) (NORMAL) 01/23/21 08:40 Platelet Morphology NORMAL APPEARANCE (NORMAL) 01/23/21 08:40 RBC Morph Micro Appear NORMAL APPEARANCE (NORMAL) 01/23/21 08:40 PT 21.2 secs (9.9-12.6) H 01/21/21 14:51 INR 1.9 (0.8-1.2) H 01/21/21 14:51 Bld Gas Analysis Time 1311 01/21/21 13:06 Sample Site RIGHT RADIAL 01/21/21 13:06 ABG pH 7.44 (7.35-7.45) 01/21/21 13:06 ABG pCO2 30 mmHg (34-45) L 01/21/21 13:06 ABG pO2 92 mmHg (80-100) 01/21/21 13:06 ABG HCO3 19.6 mmol/L (22.0-26.0) L 01/21/21 13:06 ABG Total CO2 20.5 MMOL/L (21.0-29.0) L 01/21/21 13:06 ABG O2 Saturation 97 % (94-98) 01/21/21 13:06 ABG Base Excess -3.4 mmol/L (-2.0-3.0) L 01/21/21 13:06 Honorio Test POSITIVE 01/21/21 13:06 VBG pH 7.363 (7.31-7.41) 01/22/21 07:00 Ionized Calcium 1.02 mmol/L (1.15-1.33) L 01/22/21 07:00 O2 Delivery Device NON REBREATHER MASK 01/21/21 13:06 O2 Liters/Min 15.00 LPM 01/21/21 13:06 FiO2 100.00 01/21/21 13:06 Sodium 130 mmol/L (135-145) L 01/24/21 04:26 Potassium 4.1 mmol/L (3.5-5.0) 01/24/21 04:26 Chloride 90 mmol/L (101-111) L 01/24/21 04:26 Carbon Dioxide 32 mmol/L (21-32) 01/24/21 04:26 Anion Gap 8.0 (6-13) 01/24/21 04:26 BUN 44 mg/dL (6-20) H 01/24/21 04:26 Creatinine 1.1 mg/dL (0.6-1.2) 01/24/21 04:26 Estimated GFR (MDRD) 69 (>89) L 01/24/21 04:26 Glucose 106 mg/dL (70-100) H 01/24/21 04:26 Lactic Acid 2.0 mmol/L (0.5-2.2) 01/22/21 19:02 Calcium 8.2 mg/dL (8.5-10.3) L 01/24/21 04:26 Phosphorus 3.2 mg/dL (2.5-4.6) 01/23/21 04:35 Magnesium 1.9 mg/dL (1.7-2.8) 01/23/21 04:35 Total Bilirubin 1.9 mg/dL (0.2-1.0) H 01/24/21 04:26 Direct Bilirubin 0.9 mg/dL (0.1-0.5) H 01/23/21 04:35 AST 328 IU/L (10-42) H 01/24/21 04:26 ALT 589 IU/L (10-60) H 01/24/21 04:26 Alkaline Phosphatase 153 IU/L (42-121) H 01/24/21 04:26 Troponin I High Sens 234.5 ng/L (2.3-19.7) H* 01/22/21 19:02 B-Natriuretic Peptide 5101 pg/mL (5-100) H 01/24/21 04:26 Total Protein 5.3 g/dL (6.7-8.2) L 01/24/21 04:26 Albumin 2.9 g/dL (3.2-5.5) L 01/24/21 04:26 Globulin 2.4 g/dL (2.1-4.2) 01/24/21 04:26 Albumin/Globulin Ratio 1.2 (1.0-2.2) 01/24/21 04:26 TSH 7.65 uIU/mL (0.34-5.60) H 01/23/21 04:35 Nasal Adenovirus (PCR) NOT DETECTED 01/18/21 18:22 Nasal B. parapertussis DNA (PCR) NOT DETECTED 01/18/21 18:22 Nasal Coronavir 229E PCR NOT DETECTED 01/18/21 18:22 Nasal Coronavir HKU1 PCR NOT DETECTED 01/18/21 18:22 Nasal Coronavir NL63 PCR NOT DETECTED 01/18/21 18:22 Nasal Coronavir OC43 PCR NOT DETECTED 01/18/21 18:22 Nasal Enterovir/Rhinovir PCR NOT DETECTED 01/18/21 18:22 Nasal Influenza B PCR NOT DETECTED 01/18/21 18:22 Nasal Influenza A PCR NOT DETECTED 01/18/21 18:22 Nasal Parainfluen 1 PCR NOT DETECTED 01/18/21 18:22 Nasal Parainfluen 2 PCR NOT DETECTED 01/18/21 18:22 Nasal Parainfluen 3 PCR NOT DETECTED 01/18/21 18:22 Nasal Parainfluen 4 PCR NOT DETECTED 01/18/21 18:22 Nasal RSV (PCR) NOT DETECTED 01/18/21 18:22 Nasal Screen MRSA (PCR) NEGATIVE (NEGATIVE) 01/21/21 12:45 Nasal B.pertussis DNA PCR NOT DETECTED 01/18/21 18:22 Nasal C.pneumoniae (PCR) NOT DETECTED 01/18/21 18:22 [place] Human Metapneumo PCR NOT DETECTED 01/18/21 18:22 Nasal M.pneumoniae (PCR) NOT DETECTED 01/18/21 18:22 Nasal SARS-CoV-2 (PCR) NOT DETECTED 01/18/21 18:22 Last Dose Date UNKNOWN 01/24/21 04:26 Last Dose Time UNKNOWN 01/24/21 04:26 Digoxin < 0.2 ng/mL 01/24/21 04:26 Ethyl Alcohol < 5.0 mg/dL 01/18/21 16:51 Hepatitis A IgM Ab NON-REACTIVE (NON-REACTIVE) 01/19/21 06:19 Hep Bs Antigen NON-REACTIVE (NON-REACTIVE) 01/19/21 06:19 Hep B Core IgM Ab NON-REACTIVE (NON-REACTIVE) 01/19/21 06:19 Hepatitis C Antibody REACTIVE (NON-REACTIVE) A 01/19/21 06:19 Hep C Ab Signal/Cutoff 6.50 (<1.00) H 01/19/21 06:19 - Procedures Procedures: Procedures COLONOSCOPY (08/16/13) ABX Reporting Has patient been on IV antibiotics over the past 48 hours?: No
[2021-01-24 07:43] LABS: MAGNESIUM 1.8 mg/dL (1.7-2.8); PHOSPHORUS 3.3 mg/dL (2.5-4.6)
[2021-01-24 08:06] LABS: CALCIUM, IONIZED 1.06 mmol/L (1.15-1.33); VBG PH 7.406 (7.31-7.41)
[2021-01-24] MEDS ORDERED: MAGNESIUM SULFATE 2 GRAM 2 GM/50 ML BAG IV ONE (08:17)
[2021-01-24] MEDS: SODIUM CHLORIDE FLUSH 0.9% 10 ML SYRINGE IVP SCH ×4 (08:43→23:38)
[2021-01-24] MEDS: MIDODRINE 2.5 MG TABLET PO SCH ×3 (08:44→17:00)
[2021-01-24] MEDS: MULTIVITAMIN TABLET PO SCH (08:45)
[2021-01-24] MEDS: CALCIUM CARBONATE CHEW 500 MG TABLET PO SCH ×2 (08:45→12:10)
[2021-01-24] MEDS: THIAMINE 100 MG TABLET PO SCH (08:45)
[2021-01-24] MEDS: DIGOXIN 125 MCG TABLET PO SCH (08:46)
[2021-01-24] MEDS: carvediloL 3.125 MG TABLET PO SCH ×2 (08:46→20:53)
[2021-01-24] MEDS: FUROSEMIDE 40 MG/4 ML VIAL IVP SCH (08:48)
[2021-01-24] MEDS: oxyCODONE 5 MG TABLET PO PRN ×3 (08:55→20:59)
[2021-01-24] MEDS: polyethylene glycoL 3350 17 GM PACKET PO SCH (09:00)
[2021-01-24 09:19] LABS: RED BLOOD COUNT 3.69 10^6/uL (4.70-6.10)
[2021-01-24 09:20] LABS: BASOPHILS % (AUTO) 0.3 %; EOSINOPHILS % (AUTO) 1.8 %; HCT - HEMATOCRIT 36.3 % (42.0-52.0); HGB - HEMOGLOBIN 12.2 g/dL (14.0-18.0); LYMPHOCYTES % (AUTO) 8.8 %; MEAN CORPUSCULAR HEMOGLOBIN 33.1 pg (27.0-31.0); MEAN CORPUSCULAR HGB CONC 33.6 g/dL (32.0-36.0); MEAN CORPUSCULAR VOLUME 98.4 fL (80.0-94.0); MEAN PLATELET VOLUME 12.5 fL (7.4-11.4); NEUTROPHILS % (AUTO) 71.5 %; PLT - PLATELET COUNT 104 10^3/uL (130-450); RED CELL DISTRIBUTION WIDTH 14.6 % (12.0-15.0)
[2021-01-24 09:21] LABS: SLIDE REVIEW? Indicated
[2021-01-24 09:23] LABS: ABNORMAL LYMPHS % (MANUAL) 0 %
[2021-01-24 09:24] LABS: BAND NEUTROPHILS % (MANUAL) 1 %; DIFFERENTIAL COMMENT MANUAL DIFFERENTIAL; LYMPHOCYTES # (MANUAL) 0.5 10^3/uL (1.5-3.5); LYMPHOCYTES % (MANUAL) 6 %; MONOCYTES # (MANUAL) 1.5 10^3/uL (0.0-1.0); NEUTROPHILS # (MANUAL) 6.9 10^3/uL (1.5-6.6); PLATELET ESTIMATE, MANUAL DECREASED (<130,000) (NORMAL)
[2021-01-24] MEDS: SODIUM CHLORIDE FLUSH 0.9% 10 ML SYRINGE IVP PRN (21:18)
[2021-01-25] MEDS: oxyCODONE 5 MG TABLET PO PRN ×2 (02:26→21:56)
--- NOTE | 2021-01-25 07:21 | PROVIDER PROGRESS NOTE ---
Assessment/Plan - Problem List (1) Cardiogenic shock Assessment/Plan: 01/25 Patient continues to improve clinically. Patient was downgraded to MedSurg status last evening. Systolic blood pressure has been maintaining in the 100s Patient's medical care is currently optimized. Social work to help facilitate placement. 01/24 Midodrine increased to 5 mg p.o. 3 times daily with meals. Attempts to wean patient off Levophed resulted in a systolic blood pressure of 80. Dr. Ott with the hospice service was consulted. 01/23 Patient appeared improved clinically today. He was breathing comfortably on room air with oxygen saturation in the mid 90s. Weaning patient off Levophed as blood pressure to permit Midodrine 2.5 mg p.o. 3 times daily with meals 01/22 2D echocardiogram done today showed moderate left ventricular enlargement. Left ventricular wall thickness was normal. Overall left ventricular Systolic function is severely globally impaired with an ejection fraction less than 20%. There is a decrease in the ejection fraction compared to the previous echocardiogram done in 2019. At that time the patient's EF was about 25%. There was also moderate right ventricular enlargement. There was severe impairment in the right ventricular systolic function. Severe right atrial enlargement. There was no evidence of aortic stenosis or aortic regurgitation. Patient was started on Levophed. Systolic blood pressure has been in the low 100s with heart rate between 80 and 90. Metoprolol succinate has been held due to hypotension. Likewise patient's Lasix was held. Patient's case was presented to cardiology at [facility]. Cardiology stated that the patient will either need an LVAD or heart transplant. However given that he is homeless and has a history of alcohol abuse he is not a candidate. I discussed the patient's condition with him highlighting that he was in end- stage heart failure which would likely lead to his demise. He expressed understanding. He had been on hospice in the past but was discharged when he seemed to be maintaining his clinical condition for a long ti me. Palliative care consult was ordered. He was seen by Lashawn Mark. We will discuss his care further in the following day. (2) Acute on chronic systolic and diastolic heart failure, NYHA class 4 Assessment/Plan: 01/25 Patient continues to improve clinically. On midodrine 5 mg p.o. 3 times daily with meals. Systolic blood pressure sustaining greater than 100. Patient is currently medically optimized. Social work to assist with placement. 01/24 Midodrine increased to 5 mg p.o. 3 times daily with meals. Attempts to wean patient off Levophed resulted in a systolic blood pressure of 80. Dr. Ott with the hospice service was consulted. 01/23 On digoxin 125 mcg p.o. daily. We will check digoxin level in the morning on 01/24/2021 Carvedilol 3.125 mg p.o. twice daily Lasix 40 mg IV given today. We will decrease to Lasix 20 mg IV daily tomorrow 01/24/2021. 01/22 2D echocardiogram done today showed moderate left ventricular enlargement. Left ventricular wall thickness was normal. Overall left ventricular Systolic function is severely globally impaired with an ejection fraction less than 20%. There is a decrease in the ejection fraction compared to the previous echocardiogram done in 2019. At that time the patient's EF was about 25%. There was also moderate right ventricular enlargement. There was severe impairment in the right ventricular systolic function. Severe right atrial enlargement. There was no evidence of aortic stenosis or aortic regurgitation. (3) Acute respiratory failure with hypoxemia Assessment/Plan: Stable Secondary to end-stage heart failure/cardiogenic shock. Breathing comfortably on room air with oxygen saturation in the mid 90s. CT angiogram of the chest was negative for PE. (4) Peripheral vascular disease Assessment/Plan: 01/25 There is improved coloration and temperature of patient's lower extremities. However 3+ lower extremity edema noted which is likely secondary to his end- stage CHF. 01/24 His lower extremities appeared dusky with diminished pulses. Patient denied any pain Dopplers of the lower extremities done on 01/20/2021 showed high-grade stenosis in the left distal Superficial femoral artery and left posterior tibial artery. Coloration of lower extremity continues to be improved today 01/23/2021. Repeat lactic acid was 2.0. Currently weaning patient off Levophed. (5) Hepatitis Assessment/Plan: Likely multifactorial secondary to alcohol use, ischemic hepatopathy or viral hepatitis. Discriminant factor was 77. Hepatitis panel pending. AST 249<-- 328<--507<--840<--683<--1045 ALT 449<--589<--792<--976<--1031<--1339 Alk Phos 129<--153<--173<--159<--188<--232 (6) ESTEVAN (acute kidney injury) Assessment/Plan: Improved/Resolved Likely secondary to to Cardiogenic shock/End-stage CHF . Creatinine at admission was 2.4. On 01/24/2021 creatinine was 1.1, BUN 44, estimated GFR 69. Lasix decreased to 20mg IV daily. (7) NSTEMI (non-ST elevated myocardial infarction) Assessment/Plan: Likely secondary to cardiogenic shock/ end-stage heart failure. Initial troponin was 89.1, then 82.6, then 202.7, then 292.9, then 234.5 He was not started on an antiplatelet due to platelet of 91. Last INR was 1.9. This is likely due to poor liver function with hepatitis. On Coreg 3.125mg po bid Patient was presented to cardiology at [place]. After considering his case stated that he patient would likely need an LVAD or heart transplant. However given that he has history of alcohol abuse and is homeless he would not be a candidate. Palliative consult in place. - Current Meds Current Meds: Current Medications Generic Name Dose Route Start Last Admin Trade Name Freq PRN Reason Stop Dose Admin Carvedilol 3.125 mg 01/23/21 09:00 01/24/21 20:53 Carvedilol 3.125 Mg Tablet PO 3.125 mg BID YONATHAN Administration Digoxin 125 mcg 01/23/21 09:00 01/24/21 08:46 Digoxin 125 Mcg Tablet PO 125 mcg DAILY YONATHAN Administration Furosemide 20 mg 01/23/21 09:00 01/24/21 08:48 Furosemide 40 Mg/4 Ml Vial IVP 20 mg DAILY YONATHAN Administration Midodrine 5 mg 01/24/21 17:00 01/24/21 17:00 Midodrine 2.5 Mg Tablet PO 5 mg TIDWM YONATHAN Administration Morphine Sulfate 1 mg 01/18/21 21:45 01/24/21 04:15 Morphine 2 Mg/Ml Carpuject IVP 1 mg Q4HR PRN Administration PAIN Multivitamins 1 tab 01/19/21 08:00 01/24/21 08:45 Multivitamin Tablet PO 1 tab DAILYWM YONATHAN Administration Ondansetron HCl 4 mg 01/18/21 18:18 01/19/21 23:45 Ondansetron 4 Mg/2 Ml Vial IVP 4 mg Q6HR PRN Administration Nausea / Vomiting Oxycodone HCl 5 mg 01/18/21 18:18 01/25/21 02:26 Oxycodone 5 Mg Tablet PO 5 mg Q4HR PRN Administration Pain 5 to 7 Polyethylene Glycol 17 gm 01/22/21 09:00 01/24/21 09:00 Polyethylene Glycol 3350 17 Gm Packet PO Not Given DAILY YONATHAN Sodium Chloride 10 ml 01/18/21 18:18 01/24/21 21:18 Sodium Chloride Flush 0.9% 10 Ml Syringe IVP 30 ml PRN PRN Administration NEEDED PER PROVIDER ORDERS Sodium Chloride 10 ml 01/19/21 01:00 01/24/21 23:38 Sodium Chloride Flush 0.9% 10 Ml Syringe IVP 10 ml 0100,0900,1700 YONATHAN Administration Thiamine HCl 100 mg 01/19/21 09:00 01/24/21 08:45 Thiamine 100 Mg Tablet PO 100 mg DAILY YONATHAN Administration - Lab Result Fish Bone Diagrams: 01/25/21 07:55 01/25/21 07:55 - Additional Planning My Orders: My Active Orders 01/24/21 15:57 Hospice It Program Manager Consult [CONS] Routine 01/24/21 17:00 Midodrine [ProAmatine] 5 mg PO TIDWM 01/25/21 06:00 CBC - COMP BLD CT W/AUTO DIFF [HEME] DAILYLAB COMPREHENSIVE METABOLIC PANEL [CHEM] DAILYLAB 01/26/21 05:00 CBC - COMP BLD CT W/AUTO DIFF [HEME] DAILYLAB COMPREHENSIVE METABOLIC PANEL [CHEM] DAILYLAB 01/27/21 05:00 CBC - COMP BLD CT W/AUTO DIFF [HEME] DAILYLAB COMPREHENSIVE METABOLIC PANEL [CHEM] DAILYLAB 01/28/21 05:00 CBC - COMP BLD CT W/AUTO DIFF [HEME] DAILYLAB COMPREHENSIVE METABOLIC PANEL [CHEM] DAILYLAB Objective Vital Signs: Vital Signs - 24 hr 01/24/21 01/24/21 01/24/21 08:00 09:00 10:00 Temperature 36.6 C Heart Rate [ Brachial] Heart Rate [ 89 82 83 Monitoring electrodes] Respiratory 14 13 21 Rate Blood Pressure 82/69 L 98/85 H 97/79 [Right Brachial artery] O2 Saturation 90 L 96 94 01/24/21 01/24/21 01/24/21 11:00 12:00 13:00 Temperature Heart Rate [ Brachial] Heart Rate [ 79 77 71 Monitoring electrodes] Respiratory 12 16 12 Rate Blood Pressure 92/75 78/69 L 93/79 [Right Brachial artery] O2 Saturation 92 90 L 90 L 01/24/21 01/24/21 01/24/21 14:00 15:00 16:00 Temperature Heart Rate [ Brachial] Heart Rate [ 77 76 79 Monitoring electrodes] Respiratory 14 14 14 Rate Blood Pressure 88/65 L 80/62 L 97/86 H [Right Brachial artery] O2 Saturation 95 92 92 01/24/21 01/24/21 01/24/21 18:00 19:00 20:49 Temperature 36.4 C L Heart Rate [ Brachial] Heart Rate [ 79 73 70 Monitoring electrodes] Respiratory 21 20 18 Rate Blood Pressure 87/69 L 104/69 99/80 [Right Brachial artery] O2 Saturation 97 100 100 01/24/21 01/25/21 23:34 06:28 Temperature 36.4 C L 36.4 C L Heart Rate [ 52 L Brachial] Heart Rate [ 72 Monitoring electrodes] Respiratory 19 19 Rate Blood Pressure 96/64 136/111 H [Right Brachial artery] O2 Saturation 98 93 Oxygen O2 Source Room air I&O (Last 24 Hrs): Intake and Output Totals x24h 01/23/21 01/24/21 01/25/21 23:59 23:59 23:59 Intake Total 1068.937 739.875 330 Output Total 1825 1625 400 Balance -756.063 -885.125 -70 - Results Results: Laboratory Results WBC 9.0 x10^3/uL (4.8-10.8) 01/24/21 04:26 RBC 3.69 10^6/uL (4.70-6.10) L 01/24/21 04:26 Hgb 12.2 g/dL (14.0-18.0) L 01/24/21 04:26 Hct 36.3 % (42.0-52.0) L 01/24/21 04:26 MCV 98.4 fL (80.0-94.0) H 01/24/21 04:26 MCH 33.1 pg (27.0-31.0) H 01/24/21 04:26 MCHC 33.6 g/dL (32.0-36.0) 01/24/21 04:26 RDW 14.6 % (12.0-15.0) 01/24/21 04:26 Plt Count 104 10^3/uL (130-450) L 01/24/21 04:26 MPV 12.5 fL (7.4-11.4) H 01/24/21 04:26 Neut # (Auto) Not Reportable 01/24/21 04:26 Lymph # (Auto) Not Reportable 01/24/21 04:26 Hardin # (Auto) Not Reportable 01/24/21 04:26 Eos # (Auto) Not Reportable 01/24/21 04:26 Baso # (Auto) Not Reportable 01/24/21 04:26 Absolute Nucleated RBC Not Reportable 01/24/21 04:26 Total Counted 100 01/24/21 04:26 Band Neuts % (Manual) 1 % (0-10) 01/24/21 04:26 Reactive Lymphs % (Man) 3 % 01/18/21 16:51 Abnorm Lymph % (Manual) 0 % 01/24/21 04:26 Nucleated RBC % Not Reportable 01/24/21 04:26 Neutrophils # (Manual) 6.9 10^3/uL (1.5-6.6) H 01/24/21 04:26 Lymphocytes # (Manual) 0.5 10^3/uL (1.5-3.5) L 01/24/21 04:26 Monocytes # (Manual) 1.5 10^3/uL (0.0-1.0) H 01/24/21 04:26 Eosinophils # (Manual) 0.0 10^3/uL (0-0.7) 01/24/21 04:26 Basophils # (Manual) 0.0 10^3/uL (0-0.1) 01/24/21 04:26 Differential Comment MANUAL DIFFERENTIAL 01/24/21 04:26 Manual Slide Review Indicated 01/24/21 04:26 WBC Morphology NORMAL APPEARANCE (NORMAL) 01/23/21 08:40 Platelet Estimate DECREASED (<130,000) (NORMAL) 01/24/21 04:26 Platelet Morphology NORMAL APPEARANCE (NORMAL) 01/23/21 08:40 RBC Morph Micro Appear NORMAL APPEARANCE (NORMAL) 01/23/21 08:40 PT 21.2 secs (9.9-12.6) H 01/21/21 14:51 INR 1.9 (0.8-1.2) H 01/21/21 14:51 Bld Gas Analysis Time 1311 01/21/21 13:06 Sample Site RIGHT RADIAL 01/21/21 13:06 ABG pH 7.44 (7.35-7.45) 01/21/21 13:06 ABG pCO2 30 mmHg (34-45) L 01/21/21 13:06 ABG pO2 92 mmHg (80-100) 01/21/21 13:06 ABG HCO3 19.6 mmol/L (22.0-26.0) L 01/21/21 13:06 ABG Total CO2 20.5 MMOL/L (21.0-29.0) L 01/21/21 13:06 ABG O2 Saturation 97 % (94-98) 01/21/21 13:06 ABG Base Excess -3.4 mmol/L (-2.0-3.0) L 01/21/21 13:06 Honorio Test POSITIVE 01/21/21 13:06 VBG pH 7.406 (7.31-7.41) 01/24/21 07:51 Ionized Calcium 1.06 mmol/L (1.15-1.33) L 01/24/21 07:51 O2 Delivery Device NON REBREATHER MASK 01/21/21 13:06 O2 Liters/Min 15.00 LPM 01/21/21 13:06 FiO2 100.00 01/21/21 13:06 Sodium 130 mmol/L (135-145) L 01/24/21 04:26 Potassium 4.1 mmol/L (3.5-5.0) 01/24/21 04:26 Chloride 90 mmol/L (101-111) L 01/24/21 04:26 Carbon Dioxide 32 mmol/L (21-32) 01/24/21 04:26 Anion Gap 8.0 (6-13) 01/24/21 04:26 BUN 44 mg/dL (6-20) H 01/24/21 04:26 Creatinine 1.1 mg/dL (0.6-1.2) 01/24/21 04:26 Estimated GFR (MDRD) 69 (>89) L 01/24/21 04:26 Glucose 106 mg/dL (70-100) H 01/24/21 04:26 Lactic Acid 2.0 mmol/L (0.5-2.2) 01/22/21 19:02 Calcium 8.2 mg/dL (8.5-10.3) L 01/24/21 04:26 Phosphorus 3.3 mg/dL (2.5-4.6) 01/24/21 04:26 Magnesium 1.8 mg/dL (1.7-2.8) 01/24/21 04:26 Total Bilirubin 1.9 mg/dL (0.2-1.0) H 01/24/21 04:26 Direct Bilirubin 0.9 mg/dL (0.1-0.5) H 01/23/21 04:35 AST 328 IU/L (10-42) H 01/24/21 04:26 ALT 589 IU/L (10-60) H 01/24/21 04:26 Alkaline Phosphatase 153 IU/L (42-121) H 01/24/21 04:26 Troponin I High Sens 234.5 ng/L (2.3-19.7) H* 01/22/21 19:02 B-Natriuretic Peptide 5101 pg/mL (5-100) H 01/24/21 04:26 Total Protein 5.3 g/dL (6.7-8.2) L 01/24/21 04:26 Albumin 2.9 g/dL (3.2-5.5) L 01/24/21 04:26 Globulin 2.4 g/dL (2.1-4.2) 01/24/21 04:26 Albumin/Globulin Ratio 1.2 (1.0-2.2) 01/24/21 04:26 TSH 7.65 uIU/mL (0.34-5.60) H 01/23/21 04:35 Nasal Adenovirus (PCR) NOT DETECTED 01/18/21 18:22 Nasal B. parapertussis DNA (PCR) NOT DETECTED 01/18/21 18:22 Nasal Coronavir 229E PCR NOT DETECTED 01/18/21 18:22 Nasal Coronavir HKU1 PCR NOT DETECTED 01/18/21 18:22 Nasal Coronavir NL63 PCR NOT DETECTED 01/18/21 18:22 Nasal Coronavir OC43 PCR NOT DETECTED 01/18/21 18:22 Nasal Enterovir/Rhinovir PCR NOT DETECTED 01/18/21 18:22 Nasal Influenza B PCR NOT DETECTED 01/18/21 18:22 Nasal Influenza A PCR NOT DETECTED 01/18/21 18:22 Nasal Parainfluen 1 PCR NOT DETECTED 01/18/21 18:22 Nasal Parainfluen 2 PCR NOT DETECTED 01/18/21 18:22 Nasal Parainfluen 3 PCR NOT DETECTED 01/18/21 18:22 Nasal Parainfluen 4 PCR NOT DETECTED 01/18/21 18:22 Nasal RSV (PCR) NOT DETECTED 01/18/21 18:22 Nasal Screen MRSA (PCR) NEGATIVE (NEGATIVE) 01/21/21 12:45 Nasal B.pertussis DNA PCR NOT DETECTED 01/18/21 18:22 Nasal C.pneumoniae (PCR) NOT DETECTED 01/18/21 18:22 [place] Human Metapneumo PCR NOT DETECTED 01/18/21 18:22 Nasal M.pneumoniae (PCR) NOT DETECTED 01/18/21 18:22 Nasal SARS-CoV-2 (PCR) NOT DETECTED 01/18/21 18:22 Last Dose Date UNKNOWN 01/24/21 04:26 Last Dose Time UNKNOWN 01/24/21 04:26 Digoxin < 0.2 ng/mL 01/24/21 04:26 Ethyl Alcohol < 5.0 mg/dL 01/18/21 16:51 Hepatitis A IgM Ab NON-REACTIVE (NON-REACTIVE) 01/19/21 06:19 Hep Bs Antigen NON-REACTIVE (NON-REACTIVE) 01/19/21 06:19 Hep B Core IgM Ab NON-REACTIVE (NON-REACTIVE) 01/19/21 06:19 Hepatitis C Antibody REACTIVE (NON-REACTIVE) A 01/19/21 06:19 Hep C Ab Signal/Cutoff 6.50 (<1.00) H 01/19/21 06:19 - Procedures Procedures: Procedures COLONOSCOPY (08/16/13) ABX Reporting Has patient been on IV antibiotics over the past 48 hours?: No
[2021-01-25 08:27] LABS: BASOPHILS % (AUTO) 0.5 %; EOSINOPHILS # (AUTO) 0.2 10^3/uL (0.0-0.7); EOSINOPHILS % (AUTO) 2.4 %; HCT - HEMATOCRIT 38.2 % (42.0-52.0); HGB - HEMOGLOBIN 12.5 g/dL (14.0-18.0); LYMPHOCYTES # (AUTO) 0.9 10^3/uL (1.5-3.5); LYMPHOCYTES % (AUTO) 11.3 %; MEAN CORPUSCULAR HEMOGLOBIN 32.6 pg (27.0-31.0); MEAN CORPUSCULAR HGB CONC 32.7 g/dL (32.0-36.0); MEAN CORPUSCULAR VOLUME 99.5 fL (80.0-94.0); MEAN PLATELET VOLUME 11.8 fL (7.4-11.4); MONOCYTES # (AUTO) 1.3 10^3/uL (0.0-1.0); MONOCYTES % (AUTO) 16.6 %; NEUTROPHILS # (AUTO) 5.3 10^3/uL (1.5-6.6); NEUTROPHILS % (AUTO) 68.6 %; PLT - PLATELET COUNT 138 10^3/uL (130-450); RED BLOOD COUNT 3.84 10^6/uL (4.70-6.10); RED CELL DISTRIBUTION WIDTH 14.6 % (12.0-15.0); WHITE BLOOD COUNT 7.8 x10^3/uL (4.8-10.8)
[2021-01-25 08:44] LABS: ALBUMIN 2.8 g/dL (3.2-5.5); ALBUMIN/GLOBULIN RATIO 1.1 (1.0-2.2); BILIRUBIN,TOTAL 2.2 mg/dL (0.2-1.0); POTASSIUM 3.5 mmol/L (3.5-5.0); TOTAL PROTEIN 5.3 g/dL (6.7-8.2)
[2021-01-25] MEDS: MIDODRINE 2.5 MG TABLET PO SCH ×3 (09:13→16:23)
[2021-01-25] MEDS: THIAMINE 100 MG TABLET PO SCH (09:14)
[2021-01-25] MEDS: DIGOXIN 125 MCG TABLET PO SCH (09:14)
[2021-01-25] MEDS: carvediloL 3.125 MG TABLET PO SCH ×2 (09:17→21:56)
[2021-01-25] MEDS: FUROSEMIDE 40 MG/4 ML VIAL IVP SCH (09:19)
[2021-01-25] MEDS: MORPHINE 2 MG/ML CARPUJECT IVP PRN ×2 (09:36→16:32)
[2021-01-25] MEDS: MULTIVITAMIN TABLET PO SCH (09:38)
[2021-01-25] MEDS: SODIUM CHLORIDE FLUSH 0.9% 10 ML SYRINGE IVP SCH ×2 (09:39→15:31)
[2021-01-25] MEDS: polyethylene glycoL 3350 17 GM PACKET PO SCH (09:42)
[2021-01-26] MEDS: MORPHINE 2 MG/ML CARPUJECT IVP PRN ×2 (00:03→08:00)
[2021-01-26] MEDS: SODIUM CHLORIDE FLUSH 0.9% 10 ML SYRINGE IVP SCH ×4 (00:03→22:32)
[2021-01-26 05:13] LABS: BASOPHILS # (AUTO) 0.1 10^3/uL (0.0-0.1); BASOPHILS % (AUTO) 0.7 %; EOSINOPHILS # (AUTO) 0.2 10^3/uL (0.0-0.7); EOSINOPHILS % (AUTO) 2.5 %; HCT - HEMATOCRIT 39.3 % (42.0-52.0); HGB - HEMOGLOBIN 12.8 g/dL (14.0-18.0); LYMPHOCYTES % (AUTO) 12.6 %; MEAN CORPUSCULAR HEMOGLOBIN 32.2 pg (27.0-31.0); MEAN CORPUSCULAR HGB CONC 32.6 g/dL (32.0-36.0); MEAN CORPUSCULAR VOLUME 98.7 fL (80.0-94.0); MEAN PLATELET VOLUME 11.5 fL (7.4-11.4); MONOCYTES # (AUTO) 1.2 10^3/uL (0.0-1.0); MONOCYTES % (AUTO) 14.3 %; NEUTROPHILS # (AUTO) 5.7 10^3/uL (1.5-6.6); NEUTROPHILS % (AUTO) 69.1 %; PLT - PLATELET COUNT 165 10^3/uL (130-450); RED BLOOD COUNT 3.98 10^6/uL (4.70-6.10); RED CELL DISTRIBUTION WIDTH 14.6 % (12.0-15.0); WHITE BLOOD COUNT 8.3 x10^3/uL (4.8-10.8)
[2021-01-26 05:25] LABS: ALBUMIN 2.9 g/dL (3.2-5.5); ALBUMIN/GLOBULIN RATIO 1.2 (1.0-2.2); BILIRUBIN,TOTAL 2.4 mg/dL (0.2-1.0); CALCIUM 8.1 mg/dL (8.5-10.3); POTASSIUM 3.8 mmol/L (3.5-5.0); TOTAL PROTEIN 5.4 g/dL (6.7-8.2)
--- NOTE | 2021-01-26 07:16 | PROVIDER PROGRESS NOTE ---
Assessment/Plan - Problem List (1) Cardiogenic shock Assessment/Plan: 01/26 Patient is medically optimized Seen by Dr Ott with the hospice team yesterday. He stated that the patient will be eligible for hospice care in the short term However , it will be necessary for him to have a stable living condition Social work working to facilitate the process. The patient was on hospice care in the past but graduated from the service. Continuing medical management as listed below 01/25 Patient continues to improve clinically. Patient was downgraded to MedSurg status last evening. Systolic blood pressure has been maintaining in the 100s Patient's medical care is currently optimized. Social work to help facilitate placement. 01/24 Midodrine increased to 5 mg p.o. 3 times daily with meals. Attempts to wean patient off Levophed resulted in a systolic blood pressure of 80. Dr. Ott with the hospice service was consulted. 01/23 Patient appeared improved clinically today. He was breathing comfortably on room air with oxygen saturation in the mid 90s. Weaning patient off Levophed as blood pressure to permit Midodrine 2.5 mg p.o. 3 times daily with meals 01/22 2D echocardiogram done today showed moderate left ventricular enlargement. Left ventricular wall thickness was normal. Overall left ventricular Systolic function is severely globally impaired with an ejection fraction less than 20%. There is a decrease in the ejection fraction compared to the previous echocardiogram done in 2019. At that time the patient's EF was about 25%. There was also moderate right ventricular enlargement. There was severe impairment in the right ventricular systolic function. Severe right atrial enlargement. There was no evidence of aortic stenosis or aortic regurgitation. Patient was started on Levophed. Systolic blood pressure has been in the low 100s with heart rate between 80 and 90. Metoprolol succinate has been held due to hypotension. Likewise patient's Lasix was held. Patient's case was presented to cardiology at [facility]. Cardiology stated that the patient will either need an LVAD or heart transplant. However given that he is homeless and has a history of alcohol abuse he is not a candidate. I discussed the patient's condition with him highlighting that he was in end- stage heart failure which would likely lead to his demise. He expressed understanding. He had been on hospice in the past but was discharged when he seemed to be maintaining his clinical condition for a long time. Palliative care consult was ordered. He was seen by Lashawn Mark. We will discuss his care further in the following day. (2) Acute on chronic systolic and diastolic heart failure, NYHA class 4 Assessment/Plan: 01/26 Patient is medically optimized Seen by Dr Ott with the hospice team yesterday. He stated that the patient will be eligible for hospice care in the short term However , it will be necessary for him to have a stable living condition Social work working to facilitate the process. The patient was on hospice care in the past but graduated from the service. Continuing medical management as listed below 01/25 Patient continues to improve clinically. On midodrine 5 mg p.o. 3 times daily with meals. Systolic blood pressure sustaining greater than 100. Patient is currently medically optimized. Social work to assist with placement. 01/24 Midodrine increased to 5 mg p.o. 3 times daily with meals. Attempts to wean patient off Levophed resulted in a systolic blood pressure of 80. Dr. Ott with the hospice service was consulted. 01/23 On digoxin 125 mcg p.o. daily. We will check digoxin level in the morning on 01/24/2021 Carvedilol 3.125 mg p.o. twice daily Lasix 40 mg IV given today. We will decrease to Lasix 20 mg IV daily tomorrow 01/24/2021. 01/22 2D echocardiogram done today showed moderate left ventricular enlargement. Left ventricular wall thickness was normal. Overall left ventricular Systolic funct ion is severely globally impaired with an ejection fraction less than 20%. There is a decrease in the ejection fraction compared to the previous echocardiogram done in 2019. At that time the patient's EF was about 25%. There was also moderate right ventricular enlargement. There was severe impairm ent in the right ventricular systolic function. Severe right atrial enlargement. There was no evidence of aortic stenosis or aortic regurgitation. (3) Acute respiratory failure with hypoxemia Assessment/Plan: Stable Secondary to end-stage heart failure/cardiogenic shock. Breathing comfortably on room air with oxygen saturation in the mid 90s. CT angiogram of the chest was negative for PE. (4) Peripheral vascular disease Assessment/Plan: 01/26 No change from previous day 01/25 There is improved coloration and temperature of patient's lower extremities. However 3+ lower extremity edema noted which is likely secondary to his end- stage CHF. 01/24 His lower extremities appeared dusky with diminished pulses. Patient denied any pain Dopplers of the lower extremities done on 01/20/2021 showed high-grade stenosis in the left distal Superficial femoral artery and left posterior tibial artery. Coloration of lower extremity continues to be improved today 01/23/2021. Repeat lactic acid was 2.0. Currently weaning patient off Levophed. (5) Hepatitis Assessment/Plan: Likely multifactorial secondary to alcohol use, ischemic hepatopathy or viral hepatitis. Discriminant factor at time of admission was 77. Hepatitis panel pending. AST 237<-- 249<-- 328<--507<--840<--683<--1045 ALT 374<--449<--589<--792<--976<--1031<--1339 Alk Phos 118<--129<--153<--173<--159<--188<--232 (6) ESTEVAN (acute kidney injury) Assessment/Plan: Improved/Resolved Likely secondary to to Cardiogenic shock/End-stage CHF . Creatinine at admission was 2.4. On 01/26/2021 creatinine was 1.0, BUN 23, estimated GFR 76. Lasix decreased to 20mg IV daily. (7) NSTEMI (non-ST elevated myocardial infarction) Assessment/Plan: Likely secondary to cardiogenic shock/ end-stage heart failure. Initial troponin was 89.1, then 82.6, then 202.7, then 292.9, then 234.5 He was not started on an antiplatelet due to platelet of 91. Last INR was 1.9. This is likely due to poor liver function with hepatitis. On Coreg 3.125mg po bid Patient was presented to cardiology at [place]. After considering his case stated that he patient would likely need an LVAD or heart transplant. However given that he has history of alcohol abuse and is homeless he would not be a candidate. Seen by Dr Ott with the hospice team on 01/25/21. He stated that the patient will be eligible for hospice care in the short term However, it will be necessary for him to have a stable living condition Social work working to facilitate the process. The patient was on hospice care in the past but graduated from the service. - Current Meds Current Meds: Current Medications Generic Name Dose Route Start Last Admin Trade Name Freq PRN Reason Stop Dose Admin Carvedilol 3.125 mg 01/23/21 09:00 01/25/21 21:56 Carvedilol 3.125 Mg Tablet PO 3.125 mg BID YONATHAN Administration Digoxin 125 mcg 01/23/21 09:00 01/25/21 09:14 Digoxin 125 Mcg Tablet PO 125 mcg DAILY YONATHAN Administration Furosemide 20 mg 01/23/21 09:00 01/25/21 09:19 Furosemide 40 Mg/4 Ml Vial IVP 20 mg DAILY YONATHAN Administration Midodrine 5 mg 01/24/21 17:00 01/25/21 16:23 Midodrine 2.5 Mg Tablet PO 5 mg TIDWM YONATHAN Administration Morphine Sulfate 1 mg 01/18/21 21:45 01/26/21 00:03 Morphine 2 Mg/Ml Carpuject IVP 1 mg Q4HR PRN Administration PAIN Multivitamins 1 tab 01/19/21 08:00 01/25/21 09:38 Multivitamin Tablet PO 1 tab DAILYWM YONATHAN Administration Ondansetron HCl 4 mg 01/18/21 18:18 01/19/21 23:45 Ondansetron 4 Mg/2 Ml Vial IVP 4 mg Q6HR PRN Administration Nausea / Vomiting Oxycodone HCl 5 mg 01/18/21 18:18 01/25/21 21:56 Oxycodone 5 Mg Tablet PO 5 mg Q4HR PRN Administration Pain 5 to 7 Polyethylene Glycol 17 gm 01/22/21 09:00 01/25/21 09:42 Polyethylene Glycol 3350 17 Gm Packet PO Not Given DAILY YONATHAN Sodium Chloride 10 ml 01/18/21 18:18 01/24/21 21:18 Sodium Chloride Flush 0.9% 10 Ml Syringe IVP 30 ml PRN PRN Administration NEEDED PER PROVIDER ORDERS Sodium Chloride 10 ml 01/19/21 01:00 01/26/21 00:03 Sodium Chloride Flush 0.9% 10 Ml Syringe IVP 10 ml 0100,0900,1700 YONATHAN Administration Thiamine HCl 100 mg 01/19/21 09:00 01/25/21 09:14 Thiamine 100 Mg Tablet PO 100 mg DAILY YONATHAN Administration - Lab Result Fish Bone Diagrams: 01/26/21 04:55 01/26/21 04:55 - Additional Planning My Orders: My Active Orders 01/25/21 17:34 Telemetry-Discontinue [RC] .ONCE 01/27/21 05:00 CBC - COMP BLD CT W/AUTO DIFF [HEME] DAILYLAB COMPREHENSIVE METABOLIC PANEL [CHEM] DAILYLAB 01/28/21 05:00 CBC - COMP BLD CT W/AUTO DIFF [HEME] DAILYLAB COMPREHENSIVE METABOLIC PANEL [CHEM] DAILYLAB Subjective - Subjective Patient Reports: Other (Resting comfortably in bed. Denied any complains) Objective Vital Signs: Vital Signs - 24 hr 01/25/21 01/25/21 01/25/21 07:46 11:08 16:09 Temperature 36.4 C L 36.7 C 36.9 C Heart Rate [ 76 78 69 Brachial] Respiratory 14 18 16 Rate Blood Pressure 95/66 [Left Brachial artery] Blood Pressure 102/80 91/69 [Right Brachial artery] O2 Saturation 97 97 97 01/25/21 01/26/21 01/26/21 21:00 00:50 06:44 Temperature 36.7 C 36.8 C 36.5 C Heart Rate [ 71 84 69 Brachial] Respiratory 16 18 17 Rate Blood Pressure [Left Brachial artery] Blood Pressure 104/89 H 92/66 106/70 [Right Brachial artery] O2 Saturation 97 92 Oxygen O2 Source Room air I&O (Last 24 Hrs): Intake and Output Totals x24h 01/24/21 01/25/21 01/26/21 23:59 23:59 23:59 Intake Total 273.509 8052 Output Total 1625 500 150 Balance -885.125 630 -150 Comments/Notes: General: Alert, Oriented x3, No acute distress, Other (Disheveled) HEENT: PERRLA, EOMI Neck: Supple, No JVD Neuro: Alert Cardiovascular: Regular rate Respiratory: Chest non-tender, No respiratory distress, Breath sounds nml Abdomen: Normal bowel sounds, Soft, No tenderness Extremities: No cyanosis, Other (diminished pedal pulses bilaterally), Warm. Improved coloration, 3+ edema - Results Results: Laboratory Results WBC 8.3 x10^3/uL (4.8-10.8) 01/26/21 04:55 RBC 3.98 10^6/uL (4.70-6.10) L 01/26/21 04:55 Hgb 12.8 g/dL (14.0-18.0) L 01/26/21 04:55 Hct 39.3 % (42.0-52.0) L 01/26/21 04:55 MCV 98.7 fL (80.0-94.0) H 01/26/21 04:55 MCH 32.2 pg (27.0-31.0) H 01/26/21 04:55 MCHC 32.6 g/dL (32.0-36.0) 01/26/21 04:55 RDW 14.6 % (12.0-15.0) 01/26/21 04:55 Plt Count 165 10^3/uL (130-450) 01/26/21 04:55 MPV 11.5 fL (7.4-11.4) H 01/26/21 04:55 Neut # (Auto) 5.7 10^3/uL (1.5-6.6) 01/26/21 04:55 Lymph # (Auto) 1.0 10^3/uL (1.5-3.5) L 01/26/21 04:55 Steele # (Auto) 1.2 10^3/uL (0.0-1.0) H 01/26/21 04:55 Eos # (Auto) 0.2 10^3/uL (0.0-0.7) 01/26/21 04:55 Baso # (Auto) 0.1 10^3/uL (0.0-0.1) 01/26/21 04:55 Absolute Nucleated RBC 0.00 x10^3/uL 01/26/21 04:55 Total Counted 100 01/24/21 04:26 Band Neuts % (Manual) 1 % (0-10) 01/24/21 04:26 Reactive Lymphs % (Man) 3 % 01/18/21 16:51 Abnorm Lymph % (Manual) 0 % 01/24/21 04:26 Nucleated RBC % 0.0 /100WBC 01/26/21 04:55 Neutrophils # (Manual) 6.9 10^3/uL (1.5-6.6) H 01/24/21 04:26 Lymphocytes # (Manual) 0.5 10^3/uL (1.5-3.5) L 01/24/21 04:26 Monocytes # (Manual) 1.5 10^3/uL (0.0-1.0) H 01/24/21 04:26 Eosinophils # (Manual) 0.0 10^3/uL (0-0.7) 01/24/21 04:26 Basophils # (Manual) 0.0 10^3/uL (0-0.1) 01/24/21 04:26 Differential Comment MANUAL DIFFERENTIAL 01/24/21 04:26 Manual Slide Review Indicated 01/24/21 04:26 WBC Morphology NORMAL APPEARANCE (NORMAL) 01/23/21 08:40 Platelet Estimate DECREASED (<130,000) (NORMAL) 01/24/21 04:26 Platelet Morphology NORMAL APPEARANCE (NORMAL) 01/23/21 08:40 RBC Morph Micro Appear NORMAL APPEARANCE (NORMAL) 01/23/21 08:40 PT 21.2 secs (9.9-12.6) H 01/21/21 14:51 INR 1.9 (0.8-1.2) H 01/21/21 14:51 Bld Gas Analysis Time 1311 01/21/21 13:06 Sample Site RIGHT RADIAL 01/21/21 13:06 ABG pH 7.44 (7.35-7.45) 01/21/21 13:06 ABG pCO2 30 mmHg (34-45) L 01/21/21 13:06 ABG pO2 92 mmHg (80-100) 01/21/21 13:06 ABG HCO3 19.6 mmol/L (22.0-26.0) L 01/21/21 13:06 ABG Total CO2 20.5 MMOL/L (21.0-29.0) L 01/21/21 13:06 ABG O2 Saturation 97 % (94-98) 01/21/21 13:06 ABG Base Excess -3.4 mmol/L (-2.0-3.0) L 01/21/21 13:06 Honorio Test POSITIVE 01/21/21 13:06 VBG pH 7.406 (7.31-7.41) 01/24/21 07:51 Ionized Calcium 1.06 mmol/L (1.15-1.33) L 01/24/21 07:51 O2 Delivery Device NON REBREATHER MASK 01/21/21 13:06 O2 Liters/Min 15.00 LPM 01/21/21 13:06 FiO2 100.00 01/21/21 13:06 Sodium 131 mmol/L (135-145) L 01/26/21 04:55 Potassium 3.8 mmol/L (3.5-5.0) 01/26/21 04:55 Chloride 90 mmol/L (101-111) L 01/26/21 04:55 Carbon Dioxide 32 mmol/L (21-32) 01/26/21 04:55 Anion Gap 9.0 (6-13) 01/26/21 04:55 BUN 23 mg/dL (6-20) H 01/26/21 04:55 Creatinine 1.0 mg/dL (0.6-1.2) 01/26/21 04:55 Estimated GFR (MDRD) 76 (>89) L 01/26/21 04:55 Glucose 82 mg/dL (70-100) 01/26/21 04:55 Lactic Acid 2.0 mmol/L (0.5-2.2) 01/22/21 19:02 Calcium 8.1 mg/dL (8.5-10.3) L 01/26/21 04:55 Phosphorus 3.3 mg/dL (2.5-4.6) 01/24/21 04:26 Magnesium 1.8 mg/dL (1.7-2.8) 01/24/21 04:26 Total Bilirubin 2.4 mg/dL (0.2-1.0) H 01/26/21 04:55 Direct Bilirubin 0.9 mg/dL (0.1-0.5) H 01/23/21 04:35 AST 237 IU/L (10-42) H 01/26/21 04:55 ALT 374 IU/L (10-60) H 01/26/21 04:55 Alkaline Phosphatase 118 IU/L (42-121) 01/26/21 04:55 Troponin I High Sens 234.5 ng/L (2.3-19.7) H* 01/22/21 19:02 B-Natriuretic Peptide 4949.00 pg/mL (5-100) H 01/25/21 07:55 Total Protein 5.4 g/dL (6.7-8.2) L 01/26/21 04:55 Albumin 2.9 g/dL (3.2-5.5) L 01/26/21 04:55 Globulin 2.5 g/dL (2.1-4.2) 01/26/21 04:55 Albumin/Globulin Ratio 1.2 (1.0-2.2) 01/26/21 04:55 TSH 7.65 uIU/mL (0.34-5.60) H 01/23/21 04:35 Nasal Adenovirus (PCR) NOT DETECTED 01/18/21 18:22 Nasal B. parapertussis DNA (PCR) NOT DETECTED 01/18/21 18:22 Nasal Coronavir 229E PCR NOT DETECTED 01/18/21 18:22 Nasal Coronavir HKU1 PCR NOT DETECTED 01/18/21 18:22 Nasal Coronavir NL63 PCR NOT DETECTED 01/18/21 18:22 Nasal Coronavir OC43 PCR NOT DETECTED 01/18/21 18:22 Nasal Enterovir/Rhinovir PCR NOT DETECTED 01/18/21 18:22 Nasal Influenza B PCR NOT DETECTED 01/18/21 18:22 Nasal Influenza A PCR NOT DETECTED 01/18/21 18:22 Nasal Parainfluen 1 PCR NOT DETECTED 01/18/21 18:22 Nasal Parainfluen 2 PCR NOT DETECTED 01/18/21 18:22 Nasal Parainfluen 3 PCR NOT DETECTED 01/18/21 18:22 Nasal Parainfluen 4 PCR NOT DETECTED 01/18/21 18:22 Nasal RSV (PCR) NOT DETECTED 01/18/21 18:22 Nasal Screen MRSA (PCR) NEGATIVE (NEGATIVE) 01/21/21 12:45 Nasal B.pertussis DNA PCR NOT DETECTED 01/18/21 18:22 Nasal C.pneumoniae (PCR) NOT DETECTED 01/18/21 18:22 [place] Human Metapneumo PCR NOT DETECTED 01/18/21 18:22 Nasal M.pneumoniae (PCR) NOT DETECTED 01/18/21 18:22 Nasal SARS-CoV-2 (PCR) NOT DETECTED 01/18/21 18:22 Last Dose Date UNKNOWN 01/24/21 04:26 Last Dose Time UNKNOWN 01/24/21 04:26 Digoxin < 0.2 ng/mL 01/24/21 04:26 Ethyl Alcohol < 5.0 mg/dL 01/18/21 16:51 Hepatitis A IgM Ab NON-REACTIVE (NON-REACTIVE) 01/19/21 06:19 Hep Bs Antigen NON-REACTIVE (NON-REACTIVE) 01/19/21 06:19 Hep B Core IgM Ab NON-REACTIVE (NON-REACTIVE) 01/19/21 06:19 Hepatitis C Antibody REACTIVE (NON-REACTIVE) A 01/19/21 06:19 Hep C Ab Signal/Cutoff 6.50 (<1.00) H 01/19/21 06:19 - Procedures Procedures: Procedures COLONOSCOPY (08/16/13) ABX Reporting Has patient been on IV antibiotics over the past 48 hours?: No
[2021-01-26] MEDS: MULTIVITAMIN TABLET PO SCH (08:01)
[2021-01-26] MEDS: THIAMINE 100 MG TABLET PO SCH (08:01)
[2021-01-26] MEDS: MIDODRINE 2.5 MG TABLET PO SCH ×3 (08:01→16:43)
[2021-01-26] MEDS: polyethylene glycoL 3350 17 GM PACKET PO SCH (08:02)
[2021-01-26] MEDS: carvediloL 3.125 MG TABLET PO SCH ×2 (10:15→21:04)
[2021-01-26] MEDS: FUROSEMIDE 40 MG/4 ML VIAL IVP SCH (10:16)
[2021-01-26] MEDS: DIGOXIN 125 MCG TABLET PO SCH (10:16)
[2021-01-26] MEDS: oxyCODONE 5 MG TABLET PO PRN ×2 (16:44→22:32)
[2021-01-26] MEDS: SODIUM CHLORIDE FLUSH 0.9% 10 ML SYRINGE IVP PRN (22:32)
[2021-01-27] MEDS: oxyCODONE 5 MG TABLET PO PRN (05:51)
[2021-01-27 06:32] LABS: BASOPHILS # (AUTO) 0.1 10^3/uL (0.0-0.1); BASOPHILS % (AUTO) 1.1 %; EOSINOPHILS # (AUTO) 0.3 10^3/uL (0.0-0.7); EOSINOPHILS % (AUTO) 3.3 %; HCT - HEMATOCRIT 39.8 % (42.0-52.0); LYMPHOCYTES # (AUTO) 1.2 10^3/uL (1.5-3.5); LYMPHOCYTES % (AUTO) 15.1 %; MEAN CORPUSCULAR HEMOGLOBIN 32.2 pg (27.0-31.0); MEAN CORPUSCULAR HGB CONC 32.7 g/dL (32.0-36.0); MEAN CORPUSCULAR VOLUME 98.5 fL (80.0-94.0); MEAN PLATELET VOLUME 10.9 fL (7.4-11.4); MONOCYTES # (AUTO) 1.3 10^3/uL (0.0-1.0); MONOCYTES % (AUTO) 15.8 %; NEUTROPHILS # (AUTO) 5.1 10^3/uL (1.5-6.6); NEUTROPHILS % (AUTO) 64.1 %; PLT - PLATELET COUNT 164 10^3/uL (130-450); RED BLOOD COUNT 4.04 10^6/uL (4.70-6.10); RED CELL DISTRIBUTION WIDTH 14.8 % (12.0-15.0)
[2021-01-27 06:46] LABS: ALBUMIN 2.7 g/dL (3.2-5.5); ALBUMIN/GLOBULIN RATIO 1.1 (1.0-2.2); BILIRUBIN,TOTAL 2.1 mg/dL (0.2-1.0); CALCIUM 7.9 mg/dL (8.5-10.3); POTASSIUM 3.4 mmol/L (3.5-5.0); TOTAL PROTEIN 5.2 g/dL (6.7-8.2)
[2021-01-27 06:48] LABS: DIGOXIN 0.2 ng/mL
[2021-01-27] MEDS ORDERED: POTASSIUM CHLORIDE 20 MEQ TABLET PO ONE (07:34)
--- NOTE | 2021-01-27 07:34 | PROVIDER PROGRESS NOTE ---
Assessment/Plan - Problem List (1) Cardiogenic shock Assessment/Plan: 01/27 25 mg p.o. daily added to patient's regimen. Continue Coreg 3.125 mg p.o. twice daily. We will only hold Coreg if systolic blood pressure less than 85. Lasix held. Patient had declined Lasix yesterday due to frequent urination. Continue Midodrin 5 mg p.o. 3 times daily. Digoxin 125 mcg p.o. daily. Digoxin level was 0.2. 01/26 Patient is medically optimized Seen by Dr Ott with the hospice team yesterday. He stated that the patient will be eligible for hospice care in the short term However , it will be necessary for him to have a stable living condition Social work working to facilitate the process. The patient was on hospice care in the past but graduated from the service. Continuing medical management as listed below 01/25 Patient continues to improve clinically. On midodrine 5 mg p.o. 3 times daily with meals. Systolic blood pressure sustaining greater than 100. Patient is currently medically optimized. Social work to assist with placement. 01/24 Midodrine increased to 5 mg p.o. 3 times daily with meals. Attempts to wean patient off Levophed resulted in a systolic blood pressure of 80. Dr. Ott with the hospice service was consulted. 01/23 On digoxin 125 mcg p.o. daily. We will check digoxin level in the morning on 01/24/2021 Carvedilol 3.125 mg p.o. twice daily Lasix 40 mg IV given today. We will decrease to Lasix 20 mg IV daily tomorrow 01/24/2021. 01/22 2D echocardiogram done today showed moderate left ventricular enlargement. Left ventricular wall thickness was normal. Overall left ventricular Systolic function is severely globally impaired with an ejection fraction less than 20%. There is a decrease in the ejection fraction compared to the previous echocardiogram done in 2019. At that time the patient's EF was about 25%. There was also moderate right ventricular enlargement. There was severe impairment in the right ventricular systolic function. Severe right atrial enlargement. There was no evidence of aortic stenosis or aortic regurgitation. (2) Acute on chronic systolic and diastolic heart failure, NYHA class 4 Assessment/Plan: 01/27 25 mg p.o. daily added to patient's regimen. Continue Coreg 3.125 mg p.o. twice daily. We will only hold Coreg if systolic blood pressure less than 85. Lasix held. Patient had declined Lasix yesterday due to frequent urination. Continue Midodrin 5 mg p.o. 3 times daily. Digoxin 125 mcg p.o. daily. Digoxin level was 0.2. 01/26 Patient is medically optimized Seen by Dr Ott with the hospice team yesterday. He stated that the patient will be eligible for hospice care in the short term However , it will be necessary for him to have a stable living condition Social work working to facilitate the process. The patient was on hospice care in the past but graduated from the service. Continuing medical management as listed below 01/25 Patient continues to improve clinically. On midodrine 5 mg p.o. 3 times daily with meals. Systolic blood pressure sustaining greater than 100. Patient is currently medically optimized. Social work to assist with placement. 01/24 Midodrine increased to 5 mg p.o. 3 times daily with meals. Attempts to wean patient off Levophed resulted in a systolic blood pressure of 80. Dr. Ott with the hospice service was consulted. 01/23 On digoxin 125 mcg p.o. daily. We will check digoxin level in the morning on 01/24/2021 Carvedilol 3.125 mg p.o. twice daily Lasix 40 mg IV given today. We will decrease to Lasix 20 mg IV daily tomorrow 01/24/2021. 01/22 2D echocardiogram done today showed moderate left ventricular enlargement. Left ventricular wall thickness was normal. Overall left ventricular Systolic function is severely globally impaired with an ejection fraction less than 20%. There is a decrease in the ejection fraction compared to the previous echocardiogram done in 2019. At that time the patient's EF was about 25%. There was also moderate right ventricular enlargement. There was severe impairment in the right ventricular systolic function. Severe right atrial enlargement. There was no evidence of aortic stenosis or aortic regurgitation. (3) Acute respiratory failure with hypoxemia Assessment/Plan: Stable Secondary to end-stage heart failure/cardiogenic shock. Breathing comfortably on room air with oxygen saturation in the mid 90s. CT angiogram of the chest was negative for PE. (4) Peripheral vascular disease Assessment/Plan: 01/27 No change from previous day 01/26 No change from previous day 01/25 There is improved coloration and temperature of patient's lower extremities. However 3+ lower extremity edema noted which is likely secondary to his end- stage CHF. 01/24 His lower extremities appeared dusky with diminished pulses. Patient denied any pain Dopplers of the lower extremities done on 01/20/2021 showed high-grade stenosis in the left distal Superficial femoral artery and left posterior tibial artery. Coloration of lower extremity continues to be improved today 01/23/2021. Repeat lactic acid was 2.0. Currently weaning patient off Levophed. (5) Hepatitis Assessment/Plan: Likely multifactorial secondary to alcohol use, ischemic hepatopathy or viral hepatitis. Discriminant factor at time of admission was 77. Hepatitis panel pending. AST 183<--237<-- 249<-- 328<--507<--840<--683<--1045 ALT 298<--374<--449<--589<--792<--976<--1031<--1339 Alk Phos 109<--118<--129<--153<--173<--159<--188<--232 (6) ESTEVAN (acute kidney injury) Assessment/Plan: Improved/Resolved Likely secondary to to Cardiogenic shock/End-stage CHF . Creatinine at admission was 2.4. On 01/27/2021 creatinine was 1.0, BUN 18, estimated GFR 76. (7) NSTEMI (non-ST elevated myocardial infarction) Assessment/Plan: Likely secondary to cardiogenic shock/ end-stage heart failure. Initial troponin was 89.1, then 82.6, then 202.7, then 292.9, then 234.5 He was not started on an antiplatelet due to platelet of 91. Last INR was 1.9. This is likely due to poor liver function with hepatitis. On Coreg 3.125mg po bid Patient was presented to cardiology at [place]. After considering his case stated that he patient would likely need an LVAD or heart transplant. However given that he has history of alcohol abuse and is homeless he would not be a candidate. Seen by Dr Ott with the hospice team on 01/25/21. He stated that the patient will be eligible for hospice care in the short term However, it will be necessary for him to have a stable living condition Social work working to facilitate the process. The patient was on hospice care in the past but graduated from the service. - Current Meds Current Meds: Current Medications Generic Name Dose Route Start Last Admin Trade Name Amniah PRN Reason Stop Dose Admin Carvedilol 3.125 mg 01/26/21 21:00 01/26/21 21:04 Carvedilol 3.125 Mg Tablet PO 3.125 mg BID YONATHAN Administration Digoxin 125 mcg 01/23/21 09:00 01/26/21 10:16 Digoxin 125 Mcg Tablet PO 125 mcg DAILY YONATHAN Administration Midodrine 5 mg 01/24/21 17:00 01/26/21 16:43 Midodrine 2.5 Mg Tablet PO 5 mg TIDWM YONATHAN Administration Morphine Sulfate 1 mg 01/18/21 21:45 01/26/21 08:00 Morphine 2 Mg/Ml Carpuject IVP 1 mg Q4HR PRN Administration PAIN Multivitamins 1 tab 01/19/21 08:00 01/26/21 08:01 Multivitamin Tablet PO 1 tab DAILYWM YONATHAN Administration Ondansetron HCl 4 mg 01/18/21 18:18 01/19/21 23:45 Ondansetron 4 Mg/2 Ml Vial IVP 4 mg Q6HR PRN Administration Nausea / Vomiting Oxycodone HCl 5 mg 01/18/21 18:18 01/27/21 05:51 Oxycodone 5 Mg Tablet PO 5 mg Q4HR PRN Administration Pain 5 to 7 Polyethylene Glycol 17 gm 01/22/21 09:00 01/26/21 08:02 Polyethylene Glycol 3350 17 Gm Packet PO Not Given DAILY YONATHAN Sodium Chloride 10 ml 01/18/21 18:18 01/26/21 22:32 Sodium Chloride Flush 0.9% 10 Ml Syringe IVP 30 ml PRN PRN Administration NEEDED PER PROVIDER ORDERS Sodium Chloride 10 ml 01/19/21 01:00 01/26/21 22:32 Sodium Chloride Flush 0.9% 10 Ml Syringe IVP 10 ml 0100,0900,1700 YONATHAN Administration Thiamine HCl 100 mg 01/19/21 09:00 01/26/21 08:01 Thiamine 100 Mg Tablet PO 100 mg DAILY YONATHAN Administration - Lab Result Fish Bone Diagrams: 01/27/21 06:25 01/27/21 06:25 - Additional Planning My Orders: My Active Orders 01/28/21 05:00 CBC - COMP BLD CT W/AUTO DIFF [HEME] DAILYLAB COMPREHENSIVE METABOLIC PANEL [CHEM] DAILYLAB Subjective - Subjective Patient Reports: Other (Resting comfortably in bed. Denied any complains) Objective Vital Signs: Vital Signs - 24 hr 01/26/21 01/26/21 01/26/21 10:17 11:44 16:24 Temperature 36.7 C 37.1 C Heart Rate [ 78 92 71 Brachial] Respiratory 19 18 Rate Blood Pressure 86/56 L [Left Brachial artery] Blood Pressure 89/76 L 100/77 [Right Brachial artery] O2 Saturation 91 L 96 01/26/21 01/26/21 01/27/21 20:31 21:03 00:04 Temperature 36.7 C 36.6 C Heart Rate [ 92 92 85 Brachial] Respiratory 17 18 Rate Blood Pressure [Left Brachial artery] Blood Pressure 117/77 110/81 H 102/81 H [Right Brachial artery] O2 Saturation 98 97 01/27/21 05:29 Temperature 36.8 C Heart Rate [ 93 Brachial] Respiratory 19 Rate Blood Pressure [Left Brachial artery] Blood Pressure 103/83 H [Right Brachial artery] O2 Saturation 96 Oxygen O2 Source Room air I&O (Last 24 Hrs): Intake and Output Totals x24h 01/25/21 01/26/21 01/27/21 23:59 23:59 23:59 Intake Total 1130 1340 100 Output Total 500 400 200 Balance 630 940 -100 Comments/Notes: General: Alert, Oriented x3, No acute distress, Other (Disheveled) HEENT: PERRLA, EOMI Neck: Supple, No JVD Neuro: Alert Cardiovascular: Regular rate Respiratory: Chest non-tender, No respiratory distress, Mild crackles Abdomen: Normal bowel sounds, Soft, No tenderness Extremities: No cyanosis, Other (diminished pedal pulses bilaterally), Warm. Improved coloration, 3+ edema - Results Results: Laboratory Results WBC 8.0 x10^3/uL (4.8-10.8) 01/27/21 06:25 RBC 4.04 10^6/uL (4.70-6.10) L 01/27/21 06:25 Hgb 13.0 g/dL (14.0-18.0) L 01/27/21 06:25 Hct 39.8 % (42.0-52.0) L 01/27/21 06:25 MCV 98.5 fL (80.0-94.0) H 01/27/21 06:25 MCH 32.2 pg (27.0-31.0) H 01/27/21 06:25 MCHC 32.7 g/dL (32.0-36.0) 01/27/21 06:25 RDW 14.8 % (12.0-15.0) 01/27/21 06:25 Plt Count 164 10^3/uL (130-450) 01/27/21 06:25 MPV 10.9 fL (7.4-11.4) 01/27/21 06:25 Neut # (Auto) 5.1 10^3/uL (1.5-6.6) 01/27/21 06:25 Lymph # (Auto) 1.2 10^3/uL (1.5-3.5) L 01/27/21 06:25 Dewitt # (Auto) 1.3 10^3/uL (0.0-1.0) H 01/27/21 06:25 Eos # (Auto) 0.3 10^3/uL (0.0-0.7) 01/27/21 06:25 Baso # (Auto) 0.1 10^3/uL (0.0-0.1) 01/27/21 06:25 Absolute Nucleated RBC 0.00 x10^3/uL 01/27/21 06:25 Total Counted 100 01/24/21 04:26 Band Neuts % (Manual) 1 % (0-10) 01/24/21 04:26 Reactive Lymphs % (Man) 3 % 01/18/21 16:51 Abnorm Lymph % (Manual) 0 % 01/24/21 04:26 Nucleated RBC % 0.0 /100WBC 01/27/21 06:25 Neutrophils # (Manual) 6.9 10^3/uL (1.5-6.6) H 01/24/21 04:26 Lymphocytes # (Manual) 0.5 10^3/uL (1.5-3.5) L 01/24/21 04:26 Monocytes # (Manual) 1.5 10^3/uL (0.0-1.0) H 01/24/21 04:26 Eosinophils # (Manual) 0.0 10^3/uL (0-0.7) 01/24/21 04:26 Basophils # (Manual) 0.0 10^3/uL (0-0.1) 01/24/21 04:26 Differential Comment MANUAL DIFFERENTIAL 01/24/21 04:26 Manual Slide Review Indicated 01/24/21 04:26 WBC Morphology NORMAL APPEARANCE (NORMAL) 01/23/21 08:40 Platelet Estimate DECREASED (<130,000) (NORMAL) 01/24/21 04:26 Platelet Morphology NORMAL APPEARANCE (NORMAL) 01/23/21 08:40 RBC Morph Micro Appear NORMAL APPEARANCE (NORMAL) 01/23/21 08:40 PT 21.2 secs (9.9-12.6) H 01/21/21 14:51 INR 1.9 (0.8-1.2) H 01/21/21 14:51 Bld Gas Analysis Time 1311 01/21/21 13:06 Sample Site RIGHT RADIAL 01/21/21 13:06 ABG pH 7.44 (7.35-7.45) 01/21/21 13:06 ABG pCO2 30 mmHg (34-45) L 01/21/21 13:06 ABG pO2 92 mmHg (80-100) 01/21/21 13:06 ABG HCO3 19.6 mmol/L (22.0-26.0) L 01/21/21 13:06 ABG Total CO2 20.5 MMOL/L (21.0-29.0) L 01/21/21 13:06 ABG O2 Saturation 97 % (94-98) 01/21/21 13:06 ABG Base Excess -3.4 mmol/L (-2.0-3.0) L 01/21/21 13:06 Honorio Test POSITIVE 01/21/21 13:06 VBG pH 7.406 (7.31-7.41) 01/24/21 07:51 Ionized Calcium 1.06 mmol/L (1.15-1.33) L 01/24/21 07:51 O2 Delivery Device NON REBREATHER MASK 01/21/21 13:06 O2 Liters/Min 15.00 LPM 01/21/21 13:06 FiO2 100.00 01/21/21 13:06 Sodium 132 mmol/L (135-145) L 01/27/21 06:25 Potassium 3.4 mmol/L (3.5-5.0) L 01/27/21 06:25 Chloride 94 mmol/L (101-111) L 01/27/21 06:25 Carbon Dioxide 31 mmol/L (21-32) 01/27/21 06:25 Anion Gap 7.0 (6-13) 01/27/21 06:25 BUN 18 mg/dL (6-20) 01/27/21 06:25 Creatinine 1.0 mg/dL (0.6-1.2) 01/27/21 06:25 Estimated GFR (MDRD) 76 (>89) L 01/27/21 06:25 Glucose 76 mg/dL (70-100) 01/27/21 06:25 Lactic Acid 2.0 mmol/L (0.5-2.2) 01/22/21 19:02 Calcium 7.9 mg/dL (8.5-10.3) L 01/27/21 06:25 Phosphorus 3.3 mg/dL (2.5-4.6) 01/24/21 04:26 Magnesium 1.8 mg/dL (1.7-2.8) 01/24/21 04:26 Total Bilirubin 2.1 mg/dL (0.2-1.0) H 01/27/21 06:25 Direct Bilirubin 0.9 mg/dL (0.1-0.5) H 01/23/21 04:35 AST 183 IU/L (10-42) H 01/27/21 06:25 ALT 298 IU/L (10-60) H 01/27/21 06:25 Alkaline Phosphatase 109 IU/L (42-121) 01/27/21 06:25 Troponin I High Sens 234.5 ng/L (2.3-19.7) H* 01/22/21 19:02 B-Natriuretic Peptide 4949.00 pg/mL (5-100) H 01/25/21 07:55 Total Protein 5.2 g/dL (6.7-8.2) L 01/27/21 06:25 Albumin 2.7 g/dL (3.2-5.5) L 01/27/21 06:25 Globulin 2.5 g/dL (2.1-4.2) 01/27/21 06:25 Albumin/Globulin Ratio 1.1 (1.0-2.2) 01/27/21 06:25 TSH 7.65 uIU/mL (0.34-5.60) H 01/23/21 04:35 Nasal Adenovirus (PCR) NOT DETECTED 01/18/21 18:22 Nasal B. parapertussis DNA (PCR) NOT DETECTED 01/18/21 18:22 Nasal Coronavir 229E PCR NOT DETECTED 01/18/21 18:22 Nasal Coronavir HKU1 PCR NOT DETECTED 01/18/21 18:22 Nasal Coronavir NL63 PCR NOT DETECTED 01/18/21 18:22 Nasal Coronavir OC43 PCR NOT DETECTED 01/18/21 18:22 Nasal Enterovir/Rhinovir PCR NOT DETECTED 01/18/21 18:22 Nasal Influenza B PCR NOT DETECTED 01/18/21 18:22 Nasal Influenza A PCR NOT DETECTED 01/18/21 18:22 Nasal Parainfluen 1 PCR NOT DETECTED 01/18/21 18:22 Nasal Parainfluen 2 PCR NOT DETECTED 01/18/21 18:22 Nasal Parainfluen 3 PCR NOT DETECTED 01/18/21 18:22 Nasal Parainfluen 4 PCR NOT DETECTED 01/18/21 18:22 Nasal RSV (PCR) NOT DETECTED 01/18/21 18:22 Nasal Screen MRSA (PCR) NEGATIVE (NEGATIVE) 01/21/21 12:45 Nasal B.pertussis DNA PCR NOT DETECTED 01/18/21 18:22 Nasal C.pneumoniae (PCR) NOT DETECTED 01/18/21 18:22 [place] Human Metapneumo PCR NOT DETECTED 01/18/21 18:22 Nasal M.pneumoniae (PCR) NOT DETECTED 01/18/21 18:22 Nasal SARS-CoV-2 (PCR) NOT DETECTED 01/18/21 18:22 Last Dose Date 01/26/21 01/27/21 06:25 Last Dose Time 1016 01/27/21 06:25 Digoxin 0.2 ng/mL 01/27/21 06:25 Ethyl Alcohol < 5.0 mg/dL 01/18/21 16:51 Hepatitis A IgM Ab NON-REACTIVE (NON-REACTIVE) 01/19/21 06:19 Hep Bs Antigen NON-REACTIVE (NON-REACTIVE) 01/19/21 06:19 Hep B Core IgM Ab NON-REACTIVE (NON-REACTIVE) 01/19/21 06:19 Hepatitis C Antibody REACTIVE (NON-REACTIVE) A 01/19/21 06:19 Hep C Ab Signal/Cutoff 6.50 (<1.00) H 01/19/21 06:19 - Procedures Procedures: Procedures COLONOSCOPY (08/16/13) ABX Reporting Has patient been on IV antibiotics over the past 48 hours?: No
[2021-01-27] MEDS: MULTIVITAMIN TABLET PO SCH (08:23)
[2021-01-27] MEDS: SODIUM CHLORIDE FLUSH 0.9% 10 ML SYRINGE IVP SCH ×2 (08:23→17:08)
[2021-01-27] MEDS: THIAMINE 100 MG TABLET PO SCH (08:23)
[2021-01-27] MEDS: DIGOXIN 125 MCG TABLET PO SCH (08:23)
[2021-01-27] MEDS: carvediloL 3.125 MG TABLET PO SCH ×2 (08:23→21:47)
[2021-01-27] MEDS: SPIRONOLACTONE 25 MG TABLET PO SCH (08:23)
[2021-01-27] MEDS: MIDODRINE 2.5 MG TABLET PO SCH ×3 (08:23→17:06)
[2021-01-27] MEDS: polyethylene glycoL 3350 17 GM PACKET PO SCH (08:23)
[2021-01-27] MEDS: MORPHINE 2 MG/ML CARPUJECT IVP PRN (19:49)
[2021-01-27] MEDS: SODIUM CHLORIDE FLUSH 0.9% 10 ML SYRINGE IVP PRN (19:50)
[2021-01-28] MEDS: SODIUM CHLORIDE FLUSH 0.9% 10 ML SYRINGE IVP SCH ×3 (00:01→16:18)
[2021-01-28] MEDS: SODIUM CHLORIDE FLUSH 0.9% 10 ML SYRINGE IVP PRN (00:02)
[2021-01-28] MEDS: oxyCODONE 5 MG TABLET PO PRN ×2 (05:12→16:18)
[2021-01-28 05:31] LABS: BASOPHILS # (AUTO) 0.1 10^3/uL (0.0-0.1); BASOPHILS % (AUTO) 1.2 %; EOSINOPHILS # (AUTO) 0.2 10^3/uL (0.0-0.7); HCT - HEMATOCRIT 39.9 % (42.0-52.0); HGB - HEMOGLOBIN 13.1 g/dL (14.0-18.0); LYMPHOCYTES # (AUTO) 1.1 10^3/uL (1.5-3.5); LYMPHOCYTES % (AUTO) 14.2 %; MEAN CORPUSCULAR HEMOGLOBIN 32.6 pg (27.0-31.0); MEAN CORPUSCULAR HGB CONC 32.8 g/dL (32.0-36.0); MEAN CORPUSCULAR VOLUME 99.3 fL (80.0-94.0); MEAN PLATELET VOLUME 10.9 fL (7.4-11.4); MONOCYTES # (AUTO) 1.1 10^3/uL (0.0-1.0); MONOCYTES % (AUTO) 14.3 %; NEUTROPHILS # (AUTO) 5.2 10^3/uL (1.5-6.6); NEUTROPHILS % (AUTO) 66.8 %; PLT - PLATELET COUNT 199 10^3/uL (130-450); RED BLOOD COUNT 4.02 10^6/uL (4.70-6.10); RED CELL DISTRIBUTION WIDTH 14.8 % (12.0-15.0); WHITE BLOOD COUNT 7.8 x10^3/uL (4.8-10.8)
[2021-01-28 05:43] LABS: ALBUMIN 2.8 g/dL (3.2-5.5); ALBUMIN/GLOBULIN RATIO 1.2 (1.0-2.2); BILIRUBIN,TOTAL 2.1 mg/dL (0.2-1.0); CALCIUM 8.1 mg/dL (8.5-10.3); CREATININE 0.9 mg/dL (0.6-1.2); POTASSIUM 4.2 mmol/L (3.5-5.0); TOTAL PROTEIN 5.2 g/dL (6.7-8.2)
--- NOTE | 2021-01-28 07:56 | PROVIDER PROGRESS NOTE ---
Assessment/Plan - Problem List (1) Cardiogenic shock Assessment/Plan: 01/28 No changes today. Awaiting placement 01/27 25 mg p.o. daily added to patient's regimen. Continue Coreg 3.125 mg p.o. twice daily. We will only hold Coreg if systolic blood pressure less than 85. Lasix held. Patient had declined Lasix yesterday due to frequent urination. Continue Midodrin 5 mg p.o. 3 times daily. Digoxin 125 mcg p.o. daily. Digoxin level was 0.2. 01/26 Patient is medically optimized Seen by Dr Ott with the hospice team yesterday. He stated that the patient will be eligible for hospice care in the short term However , it will be necessary for him to have a stable living condition Social work working to facilitate the process. The patient was on hospice care in the past but graduated from the service. Continuing medical management as listed below 01/25 Patient continues to improve clinically. On midodrine 5 mg p.o. 3 times daily with meals. Systolic blood pressure sustaining greater than 100. Patient is currently medically optimized. Social work to assist with placement. 01/24 Midodrine increased to 5 mg p.o. 3 times daily with meals. Attempts to wean patient off Levophed resulted in a systolic blood pressure of 80. Dr. Ott with the hospice service was consulted. 01/23 On digoxin 125 mcg p.o. daily. We will check digoxin level in the morning on 01/24/2021 Carvedilol 3.125 mg p.o. twice daily Lasix 40 mg IV given today. We will decrease to Lasix 20 mg IV daily tomorrow 01/24/2021. 01/22 2D echocardiogram done today showed moderate left ventricular enlargement. Left ventricular wall thickness was normal. Overall left ventricular Systolic function is severely globally impaired with an ejection fraction less than 20%. There is a decrease in the ejection fraction compared to the previous echocardiogram done in 2019. At that time the patient's EF was about 25%. There was also moderate right ventricular enlargement. There was severe impairment in the right ventricular systolic function. Severe right atrial enlargement. There was no evidence of aortic stenosis or aortic regurgitation. (2) Acute on chronic systolic and diastolic heart failure, NYHA class 4 Assessment/Plan: 01/28 No changes today. Awaiting placement 01/27 25 mg p.o. daily added to patient's regimen. Continue Coreg 3.125 mg p.o. twice daily. We will only hold Coreg if systolic blood pressure less than 85. Lasix held. Patient had declined Lasix yesterday due to frequent urination. Continue Midodrin 5 mg p.o. 3 times daily. Digoxin 125 mcg p.o. daily. Digoxin level was 0.2. 01/26 Patient is medically optimized Seen by Dr Ott with the hospice team yesterday. He stated that the patient will be eligible for hospice care in the short term However , it will be necessary for him to have a stable living condition Social work working to facilitate the process. The patient was on hospice care in the past but graduated from the service. Continuing medical management as listed below 01/25 Patient continues to improve clinically. On midodrine 5 mg p.o. 3 times daily with meals. Systolic blood pressure sustaining greater than 100. Patient is currently medically optimized. Social work to assist with placement. 01/24 Midodrine increased to 5 mg p.o. 3 times daily with meals. Attempts to wean patient off Levophed resulted in a systolic blood pressure of 80. Dr. Ott with the hospice service was consulted. 01/23 On digoxin 125 mcg p.o. daily. We will check digoxin level in the morning on 01/24/2021 Carvedilol 3.125 mg p.o. twice daily Lasix 40 mg IV given today. We will decrease to Lasix 20 mg IV daily tomorrow 01/24/2021. 01/22 2D echocardiogram done today showed moderate left ventricular enlargement. Left ventricular wall thickness was normal. Overall left ventricular Systolic function is severely globally impaired with an ejection fraction less than 20%. There is a decrease in the ejection fraction compared to the previous echocardiogram done in 2019. At that time the patient's EF was about 25%. There was also moderate right ventricular enlargement. There was severe impairment in the right ventricular systolic function. Severe right atrial enlargement. There was no evidence of aortic stenosis or aortic regurgitation. (3) Acute respiratory failure with hypoxemia Assessment/Plan: Stable Secondary to end-stage heart failure/cardiogenic shock. Breathing comfortably on room air with oxygen saturation in the mid 90s. CT angiogram of the chest was negative for PE. (4) Peripheral vascular disease Assessment/Plan: 01/28 No significant change from previous day 01/27 No change from previous day 01/26 No change from previous day 01/25 There is improved coloration and temperature of patient's lower extremities. However 3+ lower extremity edema noted which is likely secondary to his end- stage CHF. 01/24 His lower extremities appeared dusky with diminished pulses. Patient denied any pain Dopplers of the lower extremities done on 01/20/2021 showed high-grade stenosis in the left distal Superficial femoral artery and left posterior tibial artery. Coloration of lower extremity continues to be improved today 01/23/2021. Repeat lactic acid was 2.0. Currently weaning patient off Levophed. (5) Hepatitis Assessment/Plan: Improving Likely multifactorial secondary to alcohol use, ischemic hepatopathy or viral hepatitis. Discriminant factor at time of admission was 77. Hepatitis panel pending. AST 144<--183<--237<-- 249<-- 328<--507<--840<--683<--1045 ALT 256<--298<--374<--449<--589<--792<--976<--1031<--1339 Alk Phos 103<--109<--118<--129<--153<--173<--159<--188<--232 (6) ESTEVAN (acute kidney injury) Assessment/Plan: Improved/Resolved Likely secondary to to Cardiogenic shock/End-stage CHF . Creatinine at admission was 2.4. On 01/27/2021 creatinine was 0.9, BUN 14, estimated GFR 86. (7) NSTEMI (non-ST elevated myocardial infarction) Assessment/Plan: Likely secondary to cardiogenic shock/ end-stage heart failure. Initial troponin was 89.1, then 82.6, then 202.7, then 292.9, then 234.5 He was not started on an antiplatelet due to platelet of 91. Last INR was 1.9. This is likely due to poor liver function with hepatitis. On Coreg 3.125mg po bid Patient was presented to cardiology at [facility]. After considering his case stated that he patient would likely need an LVAD or heart transplant. However given that he has history of alcohol abuse and is homeless he would not be a candidate. Seen by Dr Ott with the hospice team on 01/25/21. He stated that the patient will be eligible for hospice care in the short term However, it will be necessary for him to have a stable living condition Social work working to facilitate the process. The patient was on hospice care in the past but graduated from the service. - Current Meds Current Meds: Current Medications Generic Name Dose Route Start Last Admin Trade Name Freq PRN Reason Stop Dose Admin Carvedilol 3.125 mg 01/26/21 21:00 01/27/21 21:47 Carvedilol 3.125 Mg Tablet PO 3.125 mg BID YONATHAN Administration Digoxin 125 mcg 01/23/21 09:00 01/27/21 08:23 Digoxin 125 Mcg Tablet PO 125 mcg DAILY YONATHAN Administration Midodrine 5 mg 01/24/21 17:00 01/27/21 17:06 Midodrine 2.5 Mg Tablet PO 5 mg TIDWM YONATHAN Administration Morphine Sulfate 1 mg 01/18/21 21:45 01/27/21 19:49 Morphine 2 Mg/Ml Carpuject IVP 1 mg Q4HR PRN Administration PAIN Multivitamins 1 tab 01/19/21 08:00 01/27/21 08:23 Multivitamin Tablet PO 1 tab DAILYWM YONATHAN Administration Ondansetron HCl 4 mg 01/18/21 18:18 01/19/21 23:45 Ondansetron 4 Mg/2 Ml Vial IVP 4 mg Q6HR PRN Administration Nausea / Vomiting Oxycodone HCl 5 mg 01/18/21 18:18 01/28/21 05:12 Oxycodone 5 Mg Tablet PO 5 mg Q4HR PRN Administration Pain 5 to 7 Polyethylene Glycol 17 gm 01/22/21 09:00 01/27/21 08:23 Polyethylene Glycol 3350 17 Gm Packet PO Not Given DAILY YONATHAN Sodium Chloride 10 ml 01/18/21 18:18 01/28/21 00:02 Sodium Chloride Flush 0.9% 10 Ml Syringe IVP 30 ml PRN PRN Administration NEEDED PER PROVIDER ORDERS Sodium Chloride 10 ml 01/19/21 01:00 01/28/21 00:01 Sodium Chloride Flush 0.9% 10 Ml Syringe IVP 10 ml 0100,0900,1700 YONATHAN Administration Spironolactone 25 mg 01/27/21 09:00 01/27/21 08:23 Spironolactone 25 Mg Tablet PO 25 mg DAILY YONATHAN Administration Thiamine HCl 100 mg 01/19/21 09:00 01/27/21 08:23 Thiamine 100 Mg Tablet PO 100 mg DAILY YONATHAN Administration - Lab Result Fish Bone Diagrams: 01/28/21 05:15 01/28/21 05:15 - Additional Planning My Orders: My Active Orders 01/27/21 09:45 Heparin Flush [Heparin Sodium] 30 - 50 unit IVP PRN PRN Subjective - Subjective Patient Reports: Other (He was resting comfortably in bed at time of exam. He refused to take his spironolactone today because he did not want to be urinating as often. Breath sounds are coarse with mild crackles.) Objective Vital Signs: Vital Signs - 24 hr 01/27/21 01/27/21 01/27/21 11:09 16:07 20:19 Temperature 36.8 C 36.5 C 36.8 C Heart Rate [ 84 88 66 Brachial] Respiratory 17 18 17 Rate Blood Pressure [Left Brachial artery] Blood Pressure 96/67 108/81 H 107/75 [Right Brachial artery] O2 Saturation 93 97 100 01/27/21 01/28/21 23:57 05:20 Temperature 36.8 C 36.8 C Heart Rate [ 92 95 Brachial] Respiratory 20 16 Rate Blood Pressure 108/81 H [Left Brachial artery] Blood Pressure 95/67 [Right Brachial artery] O2 Saturation 98 95 Oxygen O2 Source Room air I&O (Last 24 Hrs): Intake and Output Totals x24h 01/26/21 01/27/21 01/28/21 23:59 23:59 23:59 Intake Total 1340 810 Output Total 400 980 125 Balance 940 -170 -125 Comments/Notes: General: Alert, Oriented x3, No acute distress, Other (Disheveled) HEENT: PERRLA, EOMI Neck: Supple, No JVD Neuro: Alert Cardiovascular: Regular rate Respiratory: Chest non-tender, No respiratory distress, Coarse breath sounds, Mild crackles Abdomen: Normal bowel sounds, Soft, No tenderness Extremities: No cyanosis, Other (diminished pedal pulses bilaterally), Warm. Improved coloration, 2+ edema - Results Results: Laboratory Results WBC 7.8 x10^3/uL (4.8-10.8) 01/28/21 05:15 RBC 4.02 10^6/uL (4.70-6.10) L 01/28/21 05:15 Hgb 13.1 g/dL (14.0-18.0) L 01/28/21 05:15 Hct 39.9 % (42.0-52.0) L 01/28/21 05:15 MCV 99.3 fL (80.0-94.0) H 01/28/21 05:15 MCH 32.6 pg (27.0-31.0) H 01/28/21 05:15 MCHC 32.8 g/dL (32.0-36.0) 01/28/21 05:15 RDW 14.8 % (12.0-15.0) 01/28/21 05:15 Plt Count 199 10^3/uL (130-450) 01/28/21 05:15 MPV 10.9 fL (7.4-11.4) 01/28/21 05:15 Neut # (Auto) 5.2 10^3/uL (1.5-6.6) 01/28/21 05:15 Lymph # (Auto) 1.1 10^3/uL (1.5-3.5) L 01/28/21 05:15 [place] # (Auto) 1.1 10^3/uL (0.0-1.0) H 01/28/21 05:15 Eos # (Auto) 0.2 10^3/uL (0.0-0.7) 01/28/21 05:15 Baso # (Auto) 0.1 10^3/uL (0.0-0.1) 01/28/21 05:15 Absolute Nucleated RBC 0.00 x10^3/uL 01/28/21 05:15 Total Counted 100 01/24/21 04:26 Band Neuts % (Manual) 1 % (0-10) 01/24/21 04:26 Reactive Lymphs % (Man) 3 % 01/18/21 16:51 Abnorm Lymph % (Manual) 0 % 01/24/21 04:26 Nucleated RBC % 0.0 /100WBC 01/28/21 05:15 Neutrophils # (Manual) 6.9 10^3/uL (1.5-6.6) H 01/24/21 04:26 Lymphocytes # (Manual) 0.5 10^3/uL (1.5-3.5) L 01/24/21 04:26 Monocytes # (Manual) 1.5 10^3/uL (0.0-1.0) H 01/24/21 04:26 Eosinophils # (Manual) 0.0 10^3/uL (0-0.7) 01/24/21 04:26 Basophils # (Manual) 0.0 10^3/uL (0-0.1) 01/24/21 04:26 Differential Comment MANUAL DIFFERENTIAL 01/24/21 04:26 Manual Slide Review Indicated 01/24/21 04:26 WBC Morphology NORMAL APPEARANCE (NORMAL) 01/23/21 08:40 Platelet Estimate DECREASED (<130,000) (NORMAL) 01/24/21 04:26 Platelet Morphology NORMAL APPEARANCE (NORMAL) 01/23/21 08:40 RBC Morph Micro Appear NORMAL APPEARANCE (NORMAL) 01/23/21 08:40 PT 21.2 secs (9.9-12.6) H 01/21/21 14:51 INR 1.9 (0.8-1.2) H 01/21/21 14:51 Bld Gas Analysis Time 1311 01/21/21 13:06 Sample Site RIGHT RADIAL 01/21/21 13:06 ABG pH 7.44 (7.35-7.45) 01/21/21 13:06 ABG pCO2 30 mmHg (34-45) L 01/21/21 13:06 ABG pO2 92 mmHg (80-100) 01/21/21 13:06 ABG HCO3 19.6 mmol/L (22.0-26.0) L 01/21/21 13:06 ABG Total CO2 20.5 MMOL/L (21.0-29.0) L 01/21/21 13:06 ABG O2 Saturation 97 % (94-98) 01/21/21 13:06 ABG Base Excess -3.4 mmol/L (-2.0-3.0) L 01/21/21 13:06 Honorio Test POSITIVE 01/21/21 13:06 VBG pH 7.406 (7.31-7.41) 01/24/21 07:51 Ionized Calcium 1.06 mmol/L (1.15-1.33) L 01/24/21 07:51 O2 Delivery Device NON REBREATHER MASK 01/21/21 13:06 O2 Liters/Min 15.00 LPM 01/21/21 13:06 FiO2 100.00 01/21/21 13:06 Sodium 134 mmol/L (135-145) L 01/28/21 05:15 Potassium 4.2 mmol/L (3.5-5.0) 01/28/21 05:15 Chloride 99 mmol/L (101-111) L 01/28/21 05:15 Carbon Dioxide 28 mmol/L (21-32) 01/28/21 05:15 Anion Gap 7.0 (6-13) 01/28/21 05:15 BUN 14 mg/dL (6-20) 01/28/21 05:15 Creatinine 0.9 mg/dL (0.6-1.2) 01/28/21 05:15 Estimated GFR (MDRD) 86 (>89) L 01/28/21 05:15 Glucose 83 mg/dL (70-100) 01/28/21 05:15 Lactic Acid 2.0 mmol/L (0.5-2.2) 01/22/21 19:02 Calcium 8.1 mg/dL (8.5-10.3) L 01/28/21 05:15 Phosphorus 3.3 mg/dL (2.5-4.6) 01/24/21 04:26 Magnesium 1.8 mg/dL (1.7-2.8) 01/24/21 04:26 Total Bilirubin 2.1 mg/dL (0.2-1.0) H 01/28/21 05:15 Direct Bilirubin 0.9 mg/dL (0.1-0.5) H 01/23/21 04:35 AST 144 IU/L (10-42) H 01/28/21 05:15 ALT 256 IU/L (10-60) H 01/28/21 05:15 Alkaline Phosphatase 103 IU/L (42-121) 01/28/21 05:15 Troponin I High Sens 234.5 ng/L (2.3-19.7) H* 01/22/21 19:02 B-Natriuretic Peptide 4949.00 pg/mL (5-100) H 01/25/21 07:55 Total Protein 5.2 g/dL (6.7-8.2) L 01/28/21 05:15 Albumin 2.8 g/dL (3.2-5.5) L 01/28/21 05:15 Globulin 2.4 g/dL (2.1-4.2) 01/28/21 05:15 Albumin/Globulin Ratio 1.2 (1.0-2.2) 01/28/21 05:15 TSH 7.65 uIU/mL (0.34-5.60) H 01/23/21 04:35 Nasal Adenovirus (PCR) NOT DETECTED 01/18/21 18:22 Nasal B. parapertussis DNA (PCR) NOT DETECTED 01/18/21 18:22 Nasal Coronavir 229E PCR NOT DETECTED 01/18/21 18:22 Nasal Coronavir HKU1 PCR NOT DETECTED 01/18/21 18:22 Nasal Coronavir NL63 PCR NOT DETECTED 01/18/21 18:22 Nasal Coronavir OC43 PCR NOT DETECTED 01/18/21 18:22 Nasal Enterovir/Rhinovir PCR NOT DETECTED 01/18/21 18:22 Nasal Influenza B PCR NOT DETECTED 01/18/21 18:22 Nasal Influenza A PCR NOT DETECTED 01/18/21 18:22 Nasal Parainfluen 1 PCR NOT DETECTED 01/18/21 18:22 Nasal Parainfluen 2 PCR NOT DETECTED 01/18/21 18:22 Nasal Parainfluen 3 PCR NOT DETECTED 01/18/21 18:22 Nasal Parainfluen 4 PCR NOT DETECTED 01/18/21 18:22 Nasal RSV (PCR) NOT DETECTED 01/18/21 18:22 Nasal Screen MRSA (PCR) NEGATIVE (NEGATIVE) 01/21/21 12:45 Nasal B.pertussis DNA PCR NOT DETECTED 01/18/21 18:22 Nasal C.pneumoniae (PCR) NOT DETECTED 01/18/21 18:22 [place] Human Metapneumo PCR NOT DETECTED 01/18/21 18:22 Nasal M.pneumoniae (PCR) NOT DETECTED 01/18/21 18:22 Nasal SARS-CoV-2 (PCR) NOT DETECTED 01/18/21 18:22 Last Dose Date 01/26/21 01/27/21 06:25 Last Dose Time 1016 01/27/21 06:25 Digoxin 0.2 ng/mL 01/27/21 06:25 Ethyl Alcohol < 5.0 mg/dL 01/18/21 16:51 Hepatitis A IgM Ab NON-REACTIVE (NON-REACTIVE) 01/19/21 06:19 Hep Bs Antigen NON-REACTIVE (NON-REACTIVE) 01/19/21 06:19 Hep B Core IgM Ab NON-REACTIVE (NON-REACTIVE) 01/19/21 06:19 Hepatitis C Antibody REACTIVE (NON-REACTIVE) A 01/19/21 06:19 Hep C Ab Signal/Cutoff 6.50 (<1.00) H 01/19/21 06:19 - Procedures Procedures: Procedures COLONOSCOPY (08/16/13) ABX Reporting Has patient been on IV antibiotics over the past 48 hours?: No
[2021-01-28] MEDS: polyethylene glycoL 3350 17 GM PACKET PO SCH (08:33)
[2021-01-28] MEDS: MIDODRINE 2.5 MG TABLET PO SCH ×3 (08:34→16:18)
[2021-01-28] MEDS: THIAMINE 100 MG TABLET PO SCH ×2 (08:36→11:28)
[2021-01-28] MEDS: carvediloL 3.125 MG TABLET PO SCH ×2 (08:37→21:28)
[2021-01-28] MEDS: DIGOXIN 125 MCG TABLET PO SCH (08:38)
[2021-01-28] MEDS: MULTIVITAMIN TABLET PO SCH (08:39)
[2021-01-28] MEDS: SPIRONOLACTONE 25 MG TABLET PO SCH (08:40)
[2021-01-29] MEDS: SODIUM CHLORIDE FLUSH 0.9% 10 ML SYRINGE IVP SCH ×4 (01:51→23:53)
--- NOTE | 2021-01-29 08:30 | PROVIDER PROGRESS NOTE ---
Subjective - Prog Note Date Prog Note Date: 01/29/21 - Subjective Subjective: He denies feeling short of breath. Lower extremity edema is much improved compared to admission but still present. He has not wanted to take Lasix as he already urinates quite a bit. He is agreeable to taking spironolactone. Current Medications - Current Medications Current Medications: Active Medications Digoxin (Digoxin 125 Mcg Tablet) 125 mcg PO DAILY [facility] Last Admin: 01/29/21 10:03 Dose: 125 mcg Documented by: Heparin Sodium (Beef Lung) (Heparin Flush 50 Units/5 Ml Syringe) 30 - 50 unit IVP PRN PRN PRN Reason: Port Protocol (<24 hours) Morphine Sulfate (Morphine 2 Mg/Ml Carpuject) 1 mg IVP Q4HR PRN PRN Reason: PAIN Last Admin: 01/27/21 19:49 Dose: 1 mg Documented by: Multivitamins (Multivitamin Tablet) 1 tab PO DAILYWM [facility] Last Admin: 01/29/21 10:02 Dose: 1 tab Documented by: Ondansetron HCl (Ondansetron 4 Mg/2 Ml Vial) 4 mg IVP Q6HR PRN PRN Reason: Nausea / Vomiting Last Admin: 01/19/21 23:45 Dose: 4 mg Documented by: Oxycodone HCl (Oxycodone 5 Mg Tablet) 5 mg PO Q4HR PRN PRN Reason: Pain 5 to 7 Last Admin: 01/29/21 10:18 Dose: 5 mg Documented by: Polyethylene Glycol (Polyethylene Glycol 3350 17 Gm Packet) 17 gm PO DAILY [facility] Last Admin: 01/29/21 10:02 Dose: Not Given Documented by: Sodium Chloride (Sodium Chloride Flush 0.9% 10 Ml Syringe) 10 ml IVP PRN PRN PRN Reason: NEEDED PER PROVIDER ORDERS Last Admin: 01/28/21 00:02 Dose: 30 ml Documented by: Sodium Chloride (Sodium Chloride Flush 0.9% 10 Ml Syringe) 10 ml IVP 0100,0900,1700 [facility] Last Admin: 01/29/21 10:03 Dose: 10 ml Documented by: Spironolactone (Spironolactone 25 Mg Tablet) 25 mg PO DAILY [facility] Last Admin: 01/29/21 10:03 Dose: 25 mg Documented by: Thiamine HCl (Thiamine 100 Mg Tablet) 100 mg PO DAILY [facility] Last Admin: 01/29/21 10:18 Dose: 100 mg Documented by: Citalopram [CeleXA] 10 mg ORAL DAILY 09/15/20 Gabapentin [Neurontin] 300 mg PO 0800,1400 PRN 01/19/21 Gabapentin [Neurontin] 600 mg PO QPM 01/19/21 Metoprolol Succinate [Toprol Xl] 25 mg PO DAILY 01/19/21 Objective - Vital Signs/Intake & Output Reviewed Vital Signs: Yes Vital Signs: Vital Signs x48h Temp Pulse Resp BP Pulse Ox 01/29/21 05:35 36.3 C L 102 H 18 104/79 100 01/29/21 00:38 36.3 C L 94 19 105/76 100 Intake & Output: Intake & Output 01/26/21 01/27/21 01/28/21 01/29/21 23:59 23:59 23:59 23:59 Intake Total 6219 374 0574 400 Output Total 400 980 125 450 Balance 940 -170 1075 -50 - Objective General Appearance: positive: No acute distress, Alert Eyes Bilateral: positive: Conjunctivae nml ENT: positive: ENT inspection nml Neck: positive: Nml inspection Respiratory: positive: No respiratory distress. negative: Wheezes, Rales Cardiovascular: positive: Regular rate & rhythm. negative: Tachycardia Skin: positive: Warm, Dry Extremities: positive: Pedal edema (+2 pitting edema in bilateral lower extr emities from the foot up to mid nelson) Neurologic/Psychiatric: negative: Disoriented to person, Disoriented to place - Lab Results Fish Bones: 01/28/21 05:15 01/28/21 05:15 Assessment/Plan - Problem List (1) Cardiogenic shock Impression: This appears to have resolved. He has been weaned off of norepinephrine and was started on midodrine. His blood pressure appears to be stable with systolics in the low 100s and so we will discontinue the midodrine and I hope we can start low-dose Toprol and lisinopril if his blood pressure can tolerate it as he would ideally be on appropriate heart failure therapy. (2) Acute on chronic systolic and diastolic heart failure, NYHA class 4 Impression: This is much improved. Although he still edematous, this is significantly improved. He had been on midodrine due to hypotension we will discontinue this today as his blood pressure appears to be stable. We will continue spironolactone but hold off on Lasix as he does not want further diuresis. If his blood pressure stable off midodrine we will initiate Toprol and low-dose lisinopril. I will discuss again with him regarding the need for furosemide. Ultimately, the plan is to discharge him to facility and have palliative/hospice follow-up with him on an outpatient basis. (3) Hyponatremia Impression: Improved but ongoing. This is secondary to the heart failure. He would ideally be diuresed but he is declining Lasix. We will continue to monitor. (4) Peripheral vascular disease Impression: Doppler showed high-grade stenosis in the left lower extremity at the distal superficial femoral artery and left posterior tibial artery. The plan is to continue medical management at this time. At times his lower extremity has been cool to touch but this has been related to poor perfusion. We did speak with cardiology at [facility] before and it was felt likely would not be a good candidate for intervention. (5) COPD (chronic obstructive pulmonary disease) Impression: Not in exacerbation. Albuterol as needed. (6) Paroxysmal atrial fibrillation Impression: He is rate controlled. We will start metoprolol if his blood pressure is stable off of midodrine (7) Hepatitis Impression: Likely multifactorial secondary to alcohol use as well as ischemic hepatitis secondary to cardiogenic shock. His LFTs have continued to improve on a daily basis, (8) ESTEVAN (acute kidney injury) Impression: This has resolved. His renal function is back to baseline. This was likely cardiorenal in nature.
[2021-01-29] MEDS: polyethylene glycoL 3350 17 GM PACKET PO SCH (10:02)
[2021-01-29] MEDS: MULTIVITAMIN TABLET PO SCH (10:02)
[2021-01-29] MEDS: DIGOXIN 125 MCG TABLET PO SCH (10:03)
[2021-01-29] MEDS: SPIRONOLACTONE 25 MG TABLET PO SCH (10:03)
[2021-01-29] MEDS: THIAMINE 100 MG TABLET PO SCH (10:18)
[2021-01-29] MEDS: oxyCODONE 5 MG TABLET PO PRN ×3 (10:18→23:52)
[2021-01-29] MEDS ORDERED: ALBUTEROL NEB 2.5 MG/3 ML INH PRN (16:00)
[2021-01-30] MEDS ORDERED: METOPROLOL SUCCINATE 25 MG TABLET PO SCH ×2 (09:00)
[2021-01-30] MEDS: DIGOXIN 125 MCG TABLET PO SCH (10:03)
[2021-01-30] MEDS: MULTIVITAMIN TABLET PO SCH (10:03)
[2021-01-30] MEDS: THIAMINE 100 MG TABLET PO SCH (10:04)
[2021-01-30] MEDS: SPIRONOLACTONE 25 MG TABLET PO SCH (10:04)
[2021-01-30] MEDS: SODIUM CHLORIDE FLUSH 0.9% 10 ML SYRINGE IVP SCH ×2 (10:04→18:18)
[2021-01-30] MEDS: polyethylene glycoL 3350 17 GM PACKET PO SCH (10:04)
--- NOTE | 2021-01-30 11:37 | PROVIDER PROGRESS NOTE ---
Subjective - Prog Note Date Prog Note Date: 01/30/21 - Subjective Subjective: He continues to report feeling well. Denies any dyspnea. His lower extremities are still edematous but improved. He is worried about going home to the homeless half-way given his heart failure. He is agreeable to hospice. Current Medications - Current Medications Current Medications: Active Medications Albuterol (Albuterol Neb 2.5 Mg/3 Ml) 2.5 mg INH RTQ4H PRN PRN Reason: Wheezing Digoxin (Digoxin 125 Mcg Tablet) 125 mcg PO DAILY [facility] Last Admin: 01/30/21 10:03 Dose: 125 mcg Documented by: Heparin Sodium (Beef Lung) (Heparin Flush 50 Units/5 Ml Syringe) 30 - 50 unit IVP PRN PRN PRN Reason: Port Protocol (<24 hours) Metoprolol Succinate (Metoprolol Succinate 25 Mg Tablet) 12.5 mg PO DAILY [facility] Last Admin: 01/30/21 10:09 Dose: 12.5 mg Documented by: Morphine Sulfate (Morphine 2 Mg/Ml Carpuject) 1 mg IVP Q4HR PRN PRN Reason: PAIN Last Admin: 01/27/21 19:49 Dose: 1 mg Documented by: Multivitamins (Multivitamin Tablet) 1 tab PO DAILYWM [facility] Last Admin: 01/30/21 10:03 Dose: 1 tab Documented by: Ondansetron HCl (Ondansetron 4 Mg/2 Ml Vial) 4 mg IVP Q6HR PRN PRN Reason: Nausea / Vomiting Last Admin: 01/19/21 23:45 Dose: 4 mg Documented by: Oxycodone HCl (Oxycodone 5 Mg Tablet) 5 mg PO Q4HR PRN PRN Reason: Pain 5 to 7 Last Admin: 01/29/21 23:52 Dose: 5 mg Documented by: Polyethylene Glycol (Polyethylene Glycol 3350 17 Gm Packet) 17 gm PO DAILY [facility] Last Admin: 01/30/21 10:04 Dose: Not Given Documented by: Sodium Chloride (Sodium Chloride Flush 0.9% 10 Ml Syringe) 10 ml IVP PRN PRN PRN Reason: NEEDED PER PROVIDER ORDERS Last Admin: 01/28/21 00:02 Dose: 30 ml Documented by: Sodium Chloride (Sodium Chloride Flush 0.9% 10 Ml Syringe) 10 ml IVP 0100,0900,1700 [facility] Last Admin: 01/30/21 10:04 Dose: 10 ml Documented by: Spironolactone (Spironolactone 25 Mg Tablet) 25 mg PO DAILY [facility] Last Admin: 01/30/21 10:04 Dose: 25 mg Documented by: Thiamine HCl (Thiamine 100 Mg Tablet) 100 mg PO DAILY [facility] Last Admin: 01/30/21 10:04 Dose: 100 mg Documented by: Citalopram [CeleXA] 10 mg ORAL DAILY 09/15/20 Gabapentin [Neurontin] 300 mg PO 0800,1400 PRN 01/19/21 Gabapentin [Neurontin] 600 mg PO QPM 01/19/21 Metoprolol Succinate [Toprol Xl] 25 mg PO DAILY 01/19/21 Objective - Vital Signs/Intake & Output Reviewed Vital Signs: Yes Vital Signs: Vital Signs x48h Temp Pulse Pulse Resp BP Pulse Ox 01/30/21 10:06 101 H 101/73 01/30/21 09:46 36.8 C 62 20 107/71 95 Intake & Output: Intake & Output 01/27/21 01/28/21 01/29/21 01/30/21 23:59 23:59 23:59 23:59 Intake Total 810 1200 1360 240 Output Total 980 125 725 Balance -170 1075 635 240 - Objective General Appearance: positive: No acute distress, Alert Eyes Bilateral: positive: Normal inspection, Conjunctivae nml ENT: positive: ENT inspection nml Neck: positive: Nml inspection Respiratory: positive: No respiratory distress. negative: Wheezes, Rales Cardiovascular: positive: Regular rate & rhythm, Tachycardia. negative: Irregularly irregular Abdomen: positive: Non-tender, No distention. negative: Tenderness Skin: positive: Warm, Dry Extremities: positive: Pedal edema (+2 pitting edema in bilateral lower extremities up to mid nelson.) Neurologic/Psychiatric: negative: Disoriented to person, Disoriented to place - Lab Results Fish Bones: 01/30/21 14:55 01/30/21 14:55 Assessment/Plan - Problem List (1) Acute on chronic systolic and diastolic heart failure, NYHA class 4 Impression: This is significantly improved. He still has lower extremity edema but he is not dyspneic or hypoxic. He is agreeable to resuming Lasix and we will resume this at 40 mg daily. We will continue spironolactone and Toprol. We will look to resume lisinopril if his blood pressure can tolerate it. I discussed with him today regarding hospice and he is agreeable to being discharged on hospice. We are now working with social work regarding disposition made hopeful we can get him to a SNF on hospice. (2) Cardiogenic shock Impression: This is resolved. His blood pressure has been stable off of norepinephrine and midodrine. We will resume appropriate heart failure therapy. (3) Hyponatremia Impression: This is resolved. This was secondary to the heart failure. (4) Peripheral vascular disease Impression: Doppler showed high-grade stenosis in the left lower extremity at the distal superficial femoral artery and left posterior tibial artery. The plan is to continue medical management at this time. At times his lower extremity has been cool to touch but this has been related to poor perfusion. We did speak with cardiology at [facility] before and it was felt likely would not be a good candidate for intervention. (5) COPD (chronic obstructive pulmonary disease) Impression: Not in exacerbation. Albuterol as needed. (6) Paroxysmal atrial fibrillation Impression: He is rate controlled. We have resumed metoprolol. (7) Hepatitis Impression: Likely multifactorial secondary to alcohol use as well as ischemic hepatitis secondary to cardiogenic shock. His LFTs have continued to improve on a daily basis. (8) ESTEVAN (acute kidney injury) Impression: This has resolved. His renal function is back to baseline. This was likely cardiorenal in nature.
[2021-01-30 15:14] LABS: BASOPHILS # (AUTO) 0.1 10^3/uL (0.0-0.1); BASOPHILS % (AUTO) 1.1 %; EOSINOPHILS # (AUTO) 0.2 10^3/uL (0.0-0.7); EOSINOPHILS % (AUTO) 2.1 %; HCT - HEMATOCRIT 40.3 % (42.0-52.0); LYMPHOCYTES # (AUTO) 1.4 10^3/uL (1.5-3.5); LYMPHOCYTES % (AUTO) 14.3 %; MEAN CORPUSCULAR HEMOGLOBIN 32.2 pg (27.0-31.0); MEAN CORPUSCULAR HGB CONC 32.3 g/dL (32.0-36.0); MEAN CORPUSCULAR VOLUME 99.8 fL (80.0-94.0); MEAN PLATELET VOLUME 10.9 fL (7.4-11.4); MONOCYTES # (AUTO) 0.9 10^3/uL (0.0-1.0); MONOCYTES % (AUTO) 9.1 %; NEUTROPHILS % (AUTO) 72.9 %; PLT - PLATELET COUNT 211 10^3/uL (130-450); RED BLOOD COUNT 4.04 10^6/uL (4.70-6.10); RED CELL DISTRIBUTION WIDTH 14.9 % (12.0-15.0); WHITE BLOOD COUNT 9.6 x10^3/uL (4.8-10.8)
[2021-01-30 15:16] LABS: CALCIUM 8.3 mg/dL (8.5-10.3); CREATININE 1.1 mg/dL (0.6-1.2); POTASSIUM 4.4 mmol/L (3.5-5.0)
[2021-01-30] MEDS: oxyCODONE 5 MG TABLET PO PRN ×2 (18:18→22:35)
[2021-01-31] MEDS: oxyCODONE 5 MG TABLET PO PRN (02:43)
[2021-01-31] MEDS: SODIUM CHLORIDE FLUSH 0.9% 10 ML SYRINGE IVP SCH ×3 (06:42→19:43)
[2021-01-31] MEDS: MULTIVITAMIN TABLET PO SCH (08:55)
[2021-01-31] MEDS: DIGOXIN 125 MCG TABLET PO SCH (09:01)
[2021-01-31] MEDS: FUROSEMIDE 40 MG TABLET PO SCH (09:01)
[2021-01-31] MEDS: THIAMINE 100 MG TABLET PO SCH (09:01)
[2021-01-31] MEDS: polyethylene glycoL 3350 17 GM PACKET PO SCH (09:02)
[2021-01-31] MEDS: METOPROLOL SUCCINATE 25 MG TABLET PO SCH (09:02)
[2021-01-31] MEDS: SPIRONOLACTONE 25 MG TABLET PO SCH (09:02)
--- NOTE | 2021-01-31 15:00 | PROVIDER PROGRESS NOTE ---
Subjective - Prog Note Date Prog Note Date: 01/31/21 - Subjective Subjective: He denies any dyspnea or chest pain. Still has lower extremity edema but improved overall. Current Medications - Current Medications Current Medications: Active Medications Albuterol (Albuterol Neb 2.5 Mg/3 Ml) 2.5 mg INH RTQ4H PRN PRN Reason: Wheezing Digoxin (Digoxin 125 Mcg Tablet) 125 mcg PO DAILY [facility] Last Admin: 01/31/21 09:01 Dose: 125 mcg Documented by: Furosemide (Furosemide 40 Mg Tablet) 40 mg PO DAILY [facility] Last Admin: 01/31/21 09:01 Dose: 40 mg Documented by: Gabapentin (Gabapentin 300 Mg Capsule) 300 mg PO 0800,1400 PRN PRN Reason: LEG PAIN OR ANXIETY Gabapentin (Gabapentin 300 Mg Capsule) 600 mg PO QPM [facility] Heparin Sodium (Beef Lung) (Heparin Flush 50 Units/5 Ml Syringe) 30 - 50 unit IVP PRN PRN PRN Reason: Port Protocol (<24 hours) Last Admin: 01/30/21 18:18 Dose: 150 unit Documented by: Metoprolol Succinate (Metoprolol Succinate 25 Mg Tablet) 25 mg PO DAILY [facility] Last Admin: 01/31/21 09:02 Dose: 25 mg Documented by: Morphine Sulfate (Morphine 2 Mg/Ml Carpuject) 1 mg IVP Q4HR PRN PRN Reason: PAIN Last Admin: 01/27/21 19:49 Dose: 1 mg Documented by: Multivitamins (Multivitamin Tablet) 1 tab PO DAILYWM [facility] Last Admin: 01/31/21 08:55 Dose: 1 tab Documented by: Ondansetron HCl (Ondansetron 4 Mg/2 Ml Vial) 4 mg IVP Q6HR PRN PRN Reason: Nausea / Vomiting Last Admin: 01/19/21 23:45 Dose: 4 mg Documented by: Oxycodone HCl (Oxycodone 5 Mg Tablet) 5 mg PO Q4HR PRN PRN Reason: Pain 5 to 7 Last Admin: 01/31/21 02:43 Dose: 5 mg Documented by: Polyethylene Glycol (Polyethylene Glycol 3350 17 Gm Packet) 17 gm PO DAILY [facility] Last Admin: 01/31/21 09:02 Dose: Not Given Documented by: Sodium Chloride (Sodium Chloride Flush 0.9% 10 Ml Syringe) 10 ml IVP PRN PRN PRN Reason: NEEDED PER PROVIDER ORDERS Last Admin: 01/28/21 00:02 Dose: 30 ml Documented by: Sodium Chloride (Sodium Chloride Flush 0.9% 10 Ml Syringe) 10 ml IVP 0100, 0900,1700 [facility] Last Admin: 01/31/21 09:02 Dose: 10 ml Documented by: Sodium Chloride (Sodium Chloride Flush 0.9% 10 Ml Syringe) 20 ml IVP PRN PRN PRN Reason: After Blood Draw Spironolactone (Spironolactone 25 Mg Tablet) 25 mg PO DAILY [facility] Last Admin: 01/31/21 09:02 Dose: 25 mg Documented by: Thiamine HCl (Thiamine 100 Mg Tablet) 100 mg PO DAILY [facility] Last Admin: 01/31/21 09:01 Dose: 100 mg Documented by: Citalopram [CeleXA] 10 mg ORAL DAILY 09/15/20 Gabapentin [Neurontin] 300 mg PO 0800,1400 PRN 01/19/21 Gabapentin [Neurontin] 600 mg PO QPM 01/19/21 Metoprolol Succinate [Toprol Xl] 25 mg PO DAILY 01/19/21 Objective - Vital Signs/Intake & Output Reviewed Vital Signs: Yes Vital Signs: Vital Signs x48h Temp Pulse Pulse Resp BP BP Pulse Ox 01/31/21 09:00 105 H 100/74 01/31/21 07:45 36.6 C 72 16 117/90 H 100 Intake & Output: Intake & Output 01/28/21 01/29/21 01/30/21 01/31/21 23:59 23:59 23:59 23:59 Intake Total 1200 1360 480 800 Output Total 565 580 9308 Balance 1075 635 480 -225 - Objective General Appearance: positive: No acute distress, Alert Eyes Bilateral: positive: Normal inspection, Conjunctivae nml ENT: positive: ENT inspection nml Neck: positive: Nml inspection Respiratory: positive: No respiratory distress. negative: Wheezes, Rales Cardiovascular: positive: Regular rate & rhythm. negative: Tachycardia Skin: positive: Warm, Dry Extremities: positive: Pedal edema (+2 edema in bilateral lower extremities.) Neurologic/Psychiatric: negative: Disoriented to person, Disoriented to place - Lab Results Fish Bones: 01/30/21 14:55 01/30/21 14:55 Other Labs: Lab Results x24hrs 01/30/21 01/30/21 Range/Units 14:55 14:55 WBC 9.6 (4.8-10.8) x10^3/uL RBC 4.04 L (4.70-6.10) 10^6/uL Hgb 13.0 L (14.0-18.0) g/dL Hct 40.3 L (42.0-52.0) % MCV 99.8 H (80.0-94.0) fL MCH 32.2 H (27.0-31.0) pg MCHC 32.3 (32.0-36.0) g/dL RDW 14.9 (12.0-15.0) % Plt Count 211 (130-450) 10^3/uL MPV 10.9 (7.4-11.4) fL Neut # (Auto) 7.0 H (1.5-6.6) 10^3/uL Lymph # (Auto) 1.4 L (1.5-3.5) 10^3/uL Mchenry # (Auto) 0.9 (0.0-1.0) 10^3/uL Eos # (Auto) 0.2 (0.0-0.7) 10^3/uL Baso # (Auto) 0.1 (0.0-0.1) 10^3/uL Absolute Nucleated RBC 0.00 x10^3/uL Nucleated RBC % 0.0 /100WBC Sodium 136 (135-145) mmol/L Potassium 4.4 (3.5-5.0) mmol/L Chloride 101 (101-111) mmol/L Carbon Dioxide 25 (21-32) mmol/L Anion Gap 10.0 (6-13) BUN 17 (6-20) mg/dL Creatinine 1.1 (0.6-1.2) mg/dL Estimated GFR (MDRD) 69 L (>89) Glucose 87 (70-100) mg/dL Calcium 8.3 L (8.5-10.3) mg/dL ABX Reporting Has patient been on IV antibiotics over the past 48 hours?: No Assessment/Plan - Problem List (1) Acute on chronic systolic and diastolic heart failure, NYHA class 4 Impression: He is much improved overall. Still has lower extremity edema but is not d yspneic or hypoxic. We have him now on metoprolol, spironolactone, Lasix. His blood pressure stable today we will add very low-dose lisinopril. He is agreeable to hospice and social work is working on finding SNF to discharge him to hospice. (2) Cardiogenic shock Impression: Resolved. His blood pressure stable on metoprolol and spironolactone as well as Lasix. We will continue to hold Midodrine. (3) Peripheral vascular disease Impression: Doppler showed high-grade stenosis in the left lower extremity at the distal superficial femoral artery and left posterior tibial artery. The plan is to continue medical management at this time. At times his lower extremity has been cool to touch but this has been related to poor perfusion. We did speak with cardiology at [facility] before and it was felt likely would not be a good candidate for intervention. He has also now decided to go back on hospice. (4) COPD (chronic obstructive pulmonary disease) Impression: Not in exacerbation. Albuterol as needed. (5) Paroxysmal atrial fibrillation Impression: He is rate controlled. We will continue metoprolol. (6) Hepatitis Impression: Likely multifactorial secondary to alcohol use as well as ischemic hepatitis secondary to cardiogenic shock. His LFTs have continued to improve on a daily basis. We are no longer trending them. (7) ESTEVAN (acute kidney injury) Impression: This has resolved. His renal function is back to baseline. This was likely cardiorenal in nature. (8) Hyponatremia Impression: This is resolved. This was secondary to the heart failure.
[2021-01-31] MEDS: GABAPENTIN 300 MG CAPSULE PO SCH (21:33)
[2021-02-01] MEDS: SODIUM CHLORIDE FLUSH 0.9% 10 ML SYRINGE IVP SCH ×4 (03:16→23:41)
[2021-02-01] MEDS: lisinopriL 5 MG TABLET PO SCH (08:09)
[2021-02-01] MEDS: THIAMINE 100 MG TABLET PO SCH (08:10)
[2021-02-01] MEDS: MULTIVITAMIN TABLET PO SCH (08:10)
[2021-02-01] MEDS: GABAPENTIN 300 MG CAPSULE PO PRN ×2 (08:10→14:08)
[2021-02-01] MEDS: METOPROLOL SUCCINATE 25 MG TABLET PO SCH (08:11)
[2021-02-01] MEDS: SPIRONOLACTONE 25 MG TABLET PO SCH (08:11)
[2021-02-01] MEDS: FUROSEMIDE 40 MG TABLET PO SCH (08:11)
[2021-02-01] MEDS: DIGOXIN 125 MCG TABLET PO SCH (08:11)
[2021-02-01] MEDS: polyethylene glycoL 3350 17 GM PACKET PO SCH (08:15)
--- NOTE | 2021-02-01 10:37 | PROVIDER PROGRESS NOTE ---
Subjective - Prog Note Date Prog Note Date: 02/01/21 - Subjective Subjective: Continues to do well. No dyspnea. Current Medications - Current Medications Current Medications: Active Medications Albuterol (Albuterol Neb 2.5 Mg/3 Ml) 2.5 mg INH RTQ4H PRN PRN Reason: Wheezing Digoxin (Digoxin 125 Mcg Tablet) 125 mcg PO DAILY [facility] Last Admin: 02/01/21 08:11 Dose: 125 mcg Documented by: Furosemide (Furosemide 40 Mg Tablet) 40 mg PO DAILY [facility] Last Admin: 02/01/21 08:11 Dose: 40 mg Documented by: Gabapentin (Gabapentin 300 Mg Capsule) 300 mg PO 0800,1400 PRN PRN Reason: LEG PAIN OR ANXIETY Last Admin: 02/01/21 08:10 Dose: 300 mg Documented by: Gabapentin (Gabapentin 300 Mg Capsule) 600 mg PO QPM [facility] Last Admin: 01/31/21 21:33 Dose: 600 mg Documented by: Heparin Sodium (Beef Lung) (Heparin Flush 50 Units/5 Ml Syringe) 30 - 50 unit IVP PRN PRN PRN Reason: Port Protocol (<24 hours) Last Admin: 01/30/21 18:18 Dose: 150 unit Documented by: Lisinopril (Lisinopril 5 Mg Tablet) 2.5 mg PO DAILY [facility] Last Admin: 02/01/21 08:09 Dose: 2.5 mg Documented by: Metoprolol Succinate (Metoprolol Succinate 25 Mg Tablet) 25 mg PO DAILY [facility] Last Admin: 02/01/21 08:11 Dose: 25 mg Documented by: Morphine Sulfate (Morphine 2 Mg/Ml Carpuject) 1 mg IVP Q4HR PRN PRN Reason: PAIN Last Admin: 01/27/21 19:49 Dose: 1 mg Documented by: Multivitamins (Multivitamin Tablet) 1 tab PO DAILYWM [facility] Last Admin: 02/01/21 08:10 Dose: 1 tab Documented by: Ondansetron HCl (Ondansetron 4 Mg/2 Ml Vial) 4 mg IVP Q6HR PRN PRN Reason: Nausea / Vomiting Last Admin: 01/19/21 23:45 Dose: 4 mg Documented by: Oxycodone HCl (Oxycodone 5 Mg Tablet) 5 mg PO Q4HR PRN PRN Reason: Pain 5 to 7 Last Admin: 01/31/21 02:43 Dose: 5 mg Documented by: Polyethylene Glycol (Polyethylene Glycol 3350 17 Gm Packet) 17 gm PO DAILY [facility] Last Admin: 02/01/21 08:15 Dose: Not Given Documented by: Sodium Chloride (Sodium Chloride Flush 0.9% 10 Ml Syringe) 10 ml IVP PRN PRN PRN Reason: NEEDED PER PROVIDER ORDERS Last Admin: 01/28/21 00:02 Dose: 30 ml Documented by: Sodium Chloride (Sodium Chloride Flush 0.9% 10 Ml Syringe) 10 ml IVP 0100,0900,1700 [facility] Last Admin: 02/01/21 08:12 Dose: 10 ml Documented by: Sodium Chloride (Sodium Chloride Flush 0.9% 10 Ml Syringe) 20 ml IVP PRN PRN PRN Reason: After Blood Draw Spironolactone (Spironolactone 25 Mg Tablet) 25 mg PO DAILY [facility] Last Admin: 02/01/21 08:11 Dose: 25 mg Documented by: Thiamine HCl (Thiamine 100 Mg Tablet) 100 mg PO DAILY [facility] Last Admin: 02/01/21 08:10 Dose: 100 mg Documented by: Citalopram [CeleXA] 10 mg ORAL DAILY 09/15/20 Gabapentin [Neurontin] 300 mg PO 0800,1400 PRN 01/19/21 Gabapentin [Neurontin] 600 mg PO QPM 01/19/21 Metoprolol Succinate [Toprol Xl] 25 mg PO DAILY 01/19/21 Objective - Vital Signs/Intake & Output Reviewed Vital Signs: Yes Vital Signs: Vital Signs x48h Temp Pulse Resp BP Pulse Ox 02/01/21 07:45 36.8 C 117 H 18 109/86 H 99 Intake & Output: Intake & Output 01/29/21 01/30/21 01/31/21 02/01/21 23:59 23:59 23:59 23:59 Intake Total 7907 606 8539 480 Output Total 725 2725 900 Balance 159 525 -779 -311 - Objective General Appearance: positive: No acute distress, Alert Eyes Bilateral: positive: Normal inspection, Conjunctivae nml ENT: positive: ENT inspection nml Neck: positive: Nml inspection Respiratory: positive: No respiratory distress Cardiovascular: positive: Regular rate & rhythm. negative: Irregularly irregular, Tachycardia Skin: positive: Warm, Dry Extremities: positive: Pedal edema (+1 to +2 edema in bilateral lower extremities up to mid nelson.) Neurologic/Psychiatric: negative: Disoriented to person, Disoriented to place - Lab Results Fish Bones: 01/30/21 14:55 01/30/21 14:55 Assessment/Plan - Problem List (1) Acute on chronic systolic and diastolic heart failure, NYHA class 4 Impression: He is no longer in acute heart failure. He is stable on metoprolol, spironolactone, Lasix and the lisinopril that was added yesterday. He is agreeable to hospice and we are working on disposition. He will likely be here through the weekend as we find a SNF. (2) Cardiogenic shock Impression: Resolved. His blood pressure stable and tolerating the heart failure therapy. (3) Peripheral vascular disease Impression: Doppler showed high-grade stenosis in the left lower extremity at the distal superficial femoral artery and left posterior tibial artery. The plan is to continue medical management at this time. At times his lower extremity has been cool to touch but this has been related to poor perfusion. We did speak with cardiology at [facility] before and it was felt likely would not be a good candidate for intervention. He has also now decided to go back on hospice. (4) COPD (chronic obstructive pulmonary disease) Impression: Not in exacerbation. Albuterol as needed. (5) Paroxysmal atrial fibrillation Impression: His heart rate is a little bit elevated today in the 110s. We will continue his current dose of metoprolol but if he remains a cardiac we will look to increase metoprolol if his blood pressure can tolerate it. (6) Hepatitis Impression: Likely multifactorial secondary to alcohol use as well as ischemic hepatitis secondary to cardiogenic shock. His LFTs have continued to improve on a daily basis. We are no longer trending them. (7) ESTEVAN (acute kidney injury) Impression: This has resolved. His renal function is back to baseline. This was likely cardiorenal in nature. (8) Hyponatremia Impression: This is resolved. This was secondary to the heart failure.
[2021-02-01] MEDS: oxyCODONE 5 MG TABLET PO PRN (16:59)
[2021-02-01] MEDS: SODIUM CHLORIDE FLUSH 0.9% 10 ML SYRINGE IVP PRN (17:58)
[2021-02-01] MEDS: NICOTINE 14 MG PATCH TOP SCH (18:51)
[2021-02-01] MEDS: GABAPENTIN 300 MG CAPSULE PO SCH (21:24)
[2021-02-02] MEDS: MORPHINE 2 MG/ML CARPUJECT IVP PRN ×2 (06:06→14:58)
[2021-02-02] MEDS: MULTIVITAMIN TABLET PO SCH (09:14)
[2021-02-02] MEDS: DIGOXIN 125 MCG TABLET PO SCH (09:14)
[2021-02-02] MEDS: FUROSEMIDE 40 MG TABLET PO SCH (09:15)
[2021-02-02] MEDS: SPIRONOLACTONE 25 MG TABLET PO SCH (09:15)
[2021-02-02] MEDS: THIAMINE 100 MG TABLET PO SCH (09:15)
[2021-02-02] MEDS: METOPROLOL SUCCINATE 25 MG TABLET PO SCH (09:15)
[2021-02-02] MEDS: lisinopriL 5 MG TABLET PO SCH (09:15)
[2021-02-02] MEDS: polyethylene glycoL 3350 17 GM PACKET PO SCH (09:16)
[2021-02-02] MEDS: SODIUM CHLORIDE FLUSH 0.9% 10 ML SYRINGE IVP SCH ×3 (09:16→23:53)
[2021-02-02] MEDS: NICOTINE 14 MG PATCH TOP SCH (09:16)
--- NOTE | 2021-02-02 11:03 | PROVIDER PROGRESS NOTE ---
Subjective - Prog Note Date Prog Note Date: 02/02/21 - Subjective Subjective: Continues to do well. He wants some strength with today and is requesting chips. Denies dyspnea. Current Medications - Current Medications Current Medications: Active Medications Albuterol (Albuterol Neb 2.5 Mg/3 Ml) 2.5 mg INH RTQ4H PRN PRN Reason: Wheezing Digoxin (Digoxin 125 Mcg Tablet) 125 mcg PO DAILY [facility] Last Admin: 02/02/21 09:14 Dose: 125 mcg Documented by: Furosemide (Furosemide 40 Mg Tablet) 40 mg PO DAILY [facility] Last Admin: 02/02/21 09:15 Dose: 40 mg Documented by: Gabapentin (Gabapentin 300 Mg Capsule) 300 mg PO 0800,1400 PRN PRN Reason: LEG PAIN OR ANXIETY Last Admin: 02/01/21 14:08 Dose: 300 mg Documented by: Gabapentin (Gabapentin 300 Mg Capsule) 600 mg PO QPM [facility] Last Admin: 02/01/21 21:24 Dose: 600 mg Documented by: Heparin Sodium (Beef Lung) (Heparin Flush 50 Units/5 Ml Syringe) 30 - 50 unit IVP PRN PRN PRN Reason: Port Protocol (<24 hours) Last Admin: 02/02/21 16:31 Dose: 150 unit Documented by: Lisinopril (Lisinopril 5 Mg Tablet) 2.5 mg PO DAILY [facility] Last Admin: 02/02/21 09:15 Dose: 2.5 mg Documented by: Metoprolol Succinate (Metoprolol Succinate 50 Mg Tablet) 50 mg PO DAILY [facility] Morphine Sulfate (Morphine 2 Mg/Ml Carpuject) 1 mg IVP Q4HR PRN PRN Reason: PAIN Last Admin: 02/02/21 14:58 Dose: 1 mg Documented by: Multivitamins (Multivitamin Tablet) 1 tab PO DAILYWM [facility] Last Admin: 02/02/21 09:14 Dose: 1 tab Documented by: Nicotine (Nicotine 14 Mg Patch) 1 patch TOP DAILY [facility] Last Admin: 02/02/21 09:16 Dose: 1 patch Documented by: Ondansetron HCl (Ondansetron 4 Mg/2 Ml Vial) 4 mg IVP Q6HR PRN PRN Reason: Nausea / Vomiting Last Admin: 01/19/21 23:45 Dose: 4 mg Documented by: Oxycodone HCl (Oxycodone 5 Mg Tablet) 5 mg PO Q4HR PRN PRN Reason: Pain 5 to 7 Last Admin: 02/02/21 16:30 Dose: 5 mg Documented by: Polyethylene Glycol (Polyethylene Glycol 3350 17 Gm Packet) 17 gm PO DAILY [facility] Last Admin: 02/02/21 09:16 Dose: Not Given Documented by: Sodium Chloride (Sodium Chloride Flush 0.9% 10 Ml Syringe) 10 ml IVP PRN PRN PRN Reason: NEEDED PER PROVIDER ORDERS Last Admin: 02/02/21 15:01 Dose: 10 ml Documented by: Sodium Chloride (Sodium Chloride Flush 0.9% 10 Ml Syringe) 10 ml IVP 0100,0 900,1700 [facility] Last Admin: 02/02/21 16:30 Dose: Not Given Documented by: Sodium Chloride (Sodium Chloride Flush 0.9% 10 Ml Syringe) 20 ml IVP PRN PRN PRN Reason: After Blood Draw Spironolactone (Spironolactone 25 Mg Tablet) 25 mg PO DAILY [facility] Last Admin: 02/02/21 09:15 Dose: 25 mg Documented by: Thiamine HCl (Thiamine 100 Mg Tablet) 100 mg PO DAILY [facility] Last Admin: 02/02/21 09:15 Dose: 100 mg Documented by: Citalopram [CeleXA] 10 mg ORAL DAILY 09/15/20 Gabapentin [Neurontin] 300 mg PO 0800,1400 PRN 01/19/21 Gabapentin [Neurontin] 600 mg PO QPM 01/19/21 Metoprolol Succinate [Toprol Xl] 25 mg PO DAILY 01/19/21 Objective - Vital Signs/Intake & Output Reviewed Vital Signs: Yes Vital Signs: Vital Signs x48h Pulse BP 02/02/21 09:20 103 H 106/73 Intake & Output: Intake & Output 01/30/21 01/31/21 02/01/21 02/02/21 23:59 23:59 23:59 23:59 Intake Total 480 1000 1520 755 Output Total 1325 8900 950 Balance 480 -325 -1080 -195 - Objective General Appearance: positive: No acute distress, Alert Eyes Bilateral: positive: Normal inspection, Conjunctivae nml ENT: positive: ENT inspection nml Neck: positive: Nml inspection Respiratory: positive: No respiratory distress. negative: Wheezes, Rales Cardiovascular: positive: Regular rate & rhythm, Tachycardia. negative: Systolic murmur Skin: positive: Warm, Dry Extremities: positive: Pedal edema (+1 to +2 pitting edema in bilateral lower extremities.) - Lab Results Fish Bones: 01/30/21 14:55 01/30/21 14:55 Assessment/Plan - Problem List (1) Acute on chronic systolic and diastolic heart failure, NYHA class 4 Impression: He is no longer in acute heart failure and is doing well on current medical therapy. He is agreeable to hospice and we are looking to discharge him to a SNF. Given he is focusing more on his comfort, we will let him eat what he would like including chips and there are no restrictions on his diet. (2) Cardiogenic shock Impression: Resolved. His blood pressure stable and tolerating the heart failure therapy. (3) Peripheral vascular disease Impression: Doppler showed high-grade stenosis in the left lower extremity at the distal s uperficial femoral artery and left posterior tibial artery. The plan is to continue medical management at this time. At times his lower extremity has been cool to touch but this has been related to poor perfusion. We did speak with cardiology at [facility] before and it was felt likely would not be a good candidate for intervention. He has also now decided to go back on hospice. (4) COPD (chronic obstructive pulmonary disease) Impression: Not in exacerbation. Albuterol as needed. (5) Paroxysmal atrial fibrillation Impression: His heart rate has been elevated in the 100s. Given his blood pressure has been stable, will increase metoprolol to 50 mg daily. (6) Hepatitis Impression: Likely multifactorial secondary to alcohol use as well as ischemic hepatitis secondary to cardiogenic shock. His LFTs have continued to improve on a daily basis. We are no longer trending them. (7) ESTEVAN (acute kidney injury) Impression: This has resolved. His renal function is back to baseline. This was likely cardiorenal in nature. (8) Hyponatremia Impression: This is resolved. This was secondary to the heart failure.
[2021-02-02] MEDS: SODIUM CHLORIDE FLUSH 0.9% 10 ML SYRINGE IVP PRN ×2 (15:01→23:53)
[2021-02-02] MEDS: oxyCODONE 5 MG TABLET PO PRN (16:30)
[2021-02-02] MEDS: GABAPENTIN 300 MG CAPSULE PO SCH (21:16)
--- NOTE | 2021-02-03 07:44 | PROVIDER PROGRESS NOTE ---
Subjective - Prog Note Date Prog Note Date: 02/03/21 - Subjective Subjective: Doing well. Would like albuterol inhaler instead of nebulizer when needed. No dyspnea with activity. Current Medications - Current Medications Current Medications: Active Medications Albuterol (Albuterol Neb 2.5 Mg/3 Ml) 2.5 mg INH RTQ4H PRN PRN Reason: Wheezing Digoxin (Digoxin 125 Mcg Tablet) 125 mcg PO DAILY [facility] Last Admin: 02/03/21 10:06 Dose: 125 mcg Documented by: Furosemide (Furosemide 40 Mg Tablet) 40 mg PO DAILY [facility] Last Admin: 02/03/21 10:05 Dose: 40 mg Documented by: Gabapentin (Gabapentin 300 Mg Capsule) 300 mg PO 0800,1400 PRN PRN Reason: LEG PAIN OR ANXIETY Last Admin: 02/01/21 14:08 Dose: 300 mg Documented by: Gabapentin (Gabapentin 300 Mg Capsule) 600 mg PO QPM [facility] Last Admin: 02/02/21 21:16 Dose: 600 mg Documented by: Heparin Sodium (Beef Lung) (Heparin Flush 50 Units/5 Ml Syringe) 30 - 50 unit IVP PRN PRN PRN Reason: Port Protocol (<24 hours) Last Admin: 02/02/21 16:31 Dose: 150 unit Documented by: Lisinopril (Lisinopril 5 Mg Tablet) 2.5 mg PO DAILY [facility] Last Admin: 02/03/21 10:05 Dose: 2.5 mg Documented by: Metoprolol Succinate (Metoprolol Succinate 50 Mg Tablet) 50 mg PO DAILY [facility] Last Admin: 02/03/21 10:05 Dose: 50 mg Documented by: Morphine Sulfate (Morphine 2 Mg/Ml Carpuject) 1 mg IVP Q4HR PRN PRN Reason: PAIN Last Admin: 02/02/21 14:58 Dose: 1 mg Documented by: Multivitamins (Multivitamin Tablet) 1 tab PO DAILYWM [facility] Last Admin: 02/03/21 10:06 Dose: 1 tab Documented by: Nicotine (Nicotine 14 Mg Patch) 1 patch TOP DAILY [facility] Last Admin: 02/03/21 10:08 Dose: 1 patch Documented by: Ondansetron HCl (Ondansetron 4 Mg/2 Ml Vial) 4 mg IVP Q6HR PRN PRN Reason: Nausea / Vomiting Last Admin: 01/19/21 23:45 Dose: 4 mg Documented by: Oxycodone HCl (Oxycodone 5 Mg Tablet) 5 mg PO Q4HR PRN PRN Reason: Pain 5 to 7 Last Admin: 02/02/21 16:30 Dose: 5 mg Documented by: Polyethylene Glycol (Polyethylene Glycol 3350 17 Gm Packet) 17 gm PO DAILY [facility] Last Admin: 02/03/21 10:07 Dose: Not Given Documented by: Sodium Chloride (Sodium Chloride Flush 0.9% 10 Ml Syringe) 10 ml IVP PRN PRN PRN Reason: NEEDED PER PROVIDER ORDERS Last Admin: 02/02/21 15:01 Dose: 10 ml Documented by: Sodium Chloride (Sodium Chloride Flush 0.9% 10 Ml Syringe) 10 ml IVP 0100,0900,1700 [facility] Last Admin: 02/03/21 10:10 Dose: 10 ml Documented by: Sodium Chloride (Sodium Chloride Flush 0.9% 10 Ml Syringe) 20 ml IVP PRN PRN PRN Reason: After Blood Draw Last Admin: 02/02/21 23:53 Dose: 20 ml Documented by: Spironolactone (Spironolactone 25 Mg Tablet) 25 mg PO DAILY [facility] Last Admin: 02/03/21 10:05 Dose: 25 mg Documented by: Thiamine HCl (Thiamine 100 Mg Tablet) 100 mg PO DAILY [facility] Last Admin: 02/03/21 10:05 Dose: 100 mg Documented by: Citalopram [CeleXA] 10 mg ORAL DAILY 09/15/20 Gabapentin [Neurontin] 300 mg PO 0800,1400 PRN 01/19/21 Gabapentin [Neurontin] 600 mg PO QPM 01/19/21 Metoprolol Succinate [Toprol Xl] 25 mg PO DAILY 01/19/21 Objective - Vital Signs/Intake & Output Reviewed Vital Signs: Yes Intake & Output: Intake & Output 01/31/21 02/01/21 02/02/21 02/03/21 23:59 23:59 23:59 23:59 Intake Total 1000 1520 1585 275 Output Total 1325 2600 950 Balance -325 -9804 645 275 - Objective General Appearance: positive: No acute distress, Alert Eyes Bilateral: positive: Normal inspection ENT: positive: ENT inspection nml Neck: positive: Nml inspection Respiratory: positive: No respiratory distress Extremities: positive: Pedal edema (+2 edema in bilateral lower extremities.) - Lab Results Fish Bones: 01/30/21 14:55 01/30/21 14:55 Assessment/Plan - Problem List (1) Acute on chronic systolic and diastolic heart failure, NYHA class 4 Impression: He is still edematous but no longer dyspneic and he is doing well on current medical therapy. The plan is to discharge him to a SNF on hospice. We will continue Lasix, spironolactone, lisinopril, metoprolol. There is no restriction on his diet given the goal is to focus on his comfort. (2) Cardiogenic shock Impression: Resolved. His blood pressure stable and tolerating the heart failure therapy. (3) Peripheral vascular disease Impression: Doppler showed high-grade stenosis in the left lower extremity at the distal superficial femoral artery and left posterior tibial artery. The plan is to continue medical management at this time. At times his lower extremity has been cool to touch but this has been related to poor perfusion. The goal is now to focus on his comfort. We will continue with medical management alone. (4) COPD (chronic obstructive pulmonary disease) Impression: Not in exacerbation. He prefers an inhaler compared to nebulizers we will switch to albuterol to just inhaler. (5) Paroxysmal atrial fibrillation Impression: His heart rate has varied from the 90s to 100s. We increased his metoprolol yesterday. We will continue the higher dose. (6) Hepatitis Impression: Likely multifactorial secondary to alcohol use as well as ischemic hepatitis secondary to cardiogenic shock. His LFTs have continued to improve on a daily basis. We are no longer trending them. (7) ESTEVAN (acute kidney injury) Impression: This has resolved. His renal function is back to baseline. This was likely cardiorenal in nature. (8) Hyponatremia Impression: This is resolved. This was secondary to the heart failure.
[2021-02-03] MEDS: METOPROLOL SUCCINATE 50 MG TABLET PO SCH ×2 (09:00→10:05)
[2021-02-03] MEDS: FUROSEMIDE 40 MG TABLET PO SCH ×2 (09:00→10:05)
[2021-02-03] MEDS: SPIRONOLACTONE 25 MG TABLET PO SCH ×2 (09:00→10:05)
[2021-02-03] MEDS: lisinopriL 5 MG TABLET PO SCH (10:05)
[2021-02-03] MEDS: THIAMINE 100 MG TABLET PO SCH (10:05)
[2021-02-03] MEDS: MULTIVITAMIN TABLET PO SCH (10:06)
[2021-02-03] MEDS: DIGOXIN 125 MCG TABLET PO SCH (10:06)
[2021-02-03] MEDS: polyethylene glycoL 3350 17 GM PACKET PO SCH (10:07)
[2021-02-03] MEDS: NICOTINE 14 MG PATCH TOP SCH (10:08)
[2021-02-03] MEDS: SODIUM CHLORIDE FLUSH 0.9% 10 ML SYRINGE IVP SCH ×3 (10:10→22:59)
[2021-02-03] MEDS: oxyCODONE 5 MG TABLET PO PRN ×2 (13:20→20:53)
[2021-02-03] MEDS ORDERED: ALBUTEROL 1 PUFF INH PRN (15:40)
[2021-02-03] MEDS: GABAPENTIN 300 MG CAPSULE PO SCH (20:53)
[2021-02-04] MEDS: MULTIVITAMIN TABLET PO SCH (10:05)
[2021-02-04] MEDS: polyethylene glycoL 3350 17 GM PACKET PO SCH (10:06)
[2021-02-04] MEDS: THIAMINE 100 MG TABLET PO SCH (10:06)
[2021-02-04] MEDS: SODIUM CHLORIDE FLUSH 0.9% 10 ML SYRINGE IVP SCH ×2 (10:06→21:14)
[2021-02-04] MEDS: NICOTINE 14 MG PATCH TOP SCH (10:06)
[2021-02-04] MEDS: oxyCODONE 5 MG TABLET PO PRN ×2 (10:19→21:13)
[2021-02-04] MEDS: DIGOXIN 125 MCG TABLET PO SCH (12:07)
[2021-02-04] MEDS: FUROSEMIDE 40 MG TABLET PO SCH ×2 (12:09→12:52)
[2021-02-04] MEDS: lisinopriL 5 MG TABLET PO SCH (12:10)
[2021-02-04] MEDS: METOPROLOL SUCCINATE 50 MG TABLET PO SCH ×2 (12:10→12:52)
[2021-02-04] MEDS: SPIRONOLACTONE 25 MG TABLET PO SCH ×2 (12:10→12:52)
--- NOTE | 2021-02-04 19:57 | PROVIDER PROGRESS NOTE ---
Subjective - Prog Note Date Prog Note Date: 02/04/21 - Subjective Subjective: He feels well. He has been walking the hallways. No dyspnea. Current Medications - Current Medications Current Medications: Active Medications Albuterol (Albuterol 1 Puff) 2 puffs INH Q4HR PRN PRN Reason: Dyspnea Digoxin (Digoxin 125 Mcg Tablet) 125 mcg PO DAILY [facility] BEDS AT [facility] Last Admin: 02/04/21 12:07 Dose: 125 mcg Documented by: Furosemide (Furosemide 40 Mg Tablet) 40 mg PO DAILY [facility] 234 BEDS AT [facility] Last Admin: 02/04/21 12:52 Dose: 40 mg Documented by: Gabapentin (Gabapentin 300 Mg Capsule) 300 mg PO 0800,1400 PRN PRN Reason: LEG PAIN OR ANXIETY Last Admin: 02/01/21 14:08 Dose: 300 mg Documented by: Gabapentin (Gabapentin 300 Mg Capsule) 600 mg PO QPM [facility]S [facility]CLUDE 234 BEDS AT [facility] Last Admin: 02/03/21 20:53 Dose: 600 mg Documented by: Heparin Sodium (Beef Lung) (Heparin Flush 50 Units/5 Ml Syringe) 30 - 50 unit IVP PRN PRN PRN Reason: Port Protocol (<24 hours) Last Admin: 02/03/21 17:59 Dose: 150 unit Documented by: Lisinopril (Lisinopril 5 Mg Tablet) 2.5 mg PO DAILY [facility] 234 BEDS AT [facility] Last Admin: 02/04/21 12:10 Dose: Not Given Documented by: Metoprolol Succinate (Metoprolol Succinate 50 Mg Tablet) 50 mg PO DAILY [facility]CLUDE 234 BEDS AT [facility] Last Admin: 02/04/21 12:52 Dose: 50 mg Documented by: Morphine Sulfate (Morphine 2 Mg/Ml Carpuject) 1 mg IVP Q4HR PRN PRN Reason: PAIN Last Admin: 02/02/21 14:58 Dose: 1 mg Documented by: Multivitamins (Multivitamin Tablet) 1 tab PO DAILYWM [facility]S INCLUDE 234 BEDS AT [facility] Last Admin: 02/04/21 10:05 Dose: 1 tab Documented by: Nicotine (Nicotine 14 Mg Patch) 1 patch TOP DAILY [facility]CLUDE 234 BEDS AT [facility] Last Admin: 02/04/21 10:06 Dose: 1 patch Documented by: Ondansetron HCl (Ondansetron 4 Mg/2 Ml Vial) 4 mg IVP Q6HR PRN PRN Reason: Nausea / Vomiting Last Admin: 01/19/21 23:45 Dose: 4 mg Documented by: Oxycodone HCl (Oxycodone 5 Mg Tablet) 5 mg PO Q4HR PRN PRN Reason: Pain 5 to 7 Last Admin: 02/04/21 10:19 Dose: 5 mg Documented by: Polyethylene Glycol (Polyethylene Glycol 3350 17 Gm Packet) 17 gm PO DAILY [facility] 234 BEDS AT [facility] Last Admin: 02/04/21 10:06 Dose: Not Given Documented by: Sodium Chloride (Sodium Chloride Flush 0.9% 10 Ml Syringe) 10 ml IVP PRN PRN PRN Reason: NEEDED PER PROVIDER ORDERS Last Admin: 02/02/21 15:01 Dose: 10 ml Documented by: Sodium Chloride (Sodium Chloride Flush 0.9% 10 Ml Syringe) 10 ml IVP 0100,0900,1700 [facility]S [facility]CLUDE 234 BEDS AT [facility] Last Admin: 02/04/21 10:06 Dose: 10 ml Documented by: Sodium Chloride (Sodium Chloride Flush 0.9% 10 Ml Syringe) 20 ml IVP PRN PRN PRN Reason: After Blood Draw Last Admin: 02/02/21 23:53 Dose: 20 ml Documented by: Spironolactone (Spironolactone 25 Mg Tablet) 25 mg PO DAILY [facility]CLUDE 234 BEDS AT [facility] Last Admin: 02/04/21 12:52 Dose: 25 mg Documented by: Thiamine HCl (Thiamine 100 Mg Tablet) 100 mg PO DAILY [facility] 234 BEDS AT [facility] Last Admin: 02/04/21 10:06 Dose: 100 mg Documented by: Citalopram [CeleXA] 10 mg ORAL DAILY 09/15/20 Gabapentin [Neurontin] 300 mg PO 0800,1400 PRN 01/19/21 Gabapentin [Neurontin] 600 mg PO QPM 01/19/21 Metoprolol Succinate [Toprol Xl] 25 mg PO DAILY 01/19/21 Objective - Vital Signs/Intake & Output Reviewed Vital Signs: Yes Vital Signs: Vital Signs x48h Temp Pulse Resp BP Pulse Ox 02/04/21 16:05 36.5 C 99 16 144/69 H 97 02/04/21 12:07 111 H 99/60 Intake & Output: Intake & Output 02/01/21 02/02/21 02/03/21 02/04/21 23:59 23:59 23:59 23:59 Intake Total 1520 1585 1355 1240 Output Total 2600 950 1850 2925 [facility] [phone] - Objective General Appearance: positive: No acute distress, Alert Eyes Bilateral: positive: Normal inspection, Conjunctivae nml ENT: positive: ENT inspection nml Neck: positive: Nml inspection Respiratory: positive: No respiratory distress Extremities: positive: Pedal edema (+2 edema in bilateral lower extremities.) Neurologic/Psychiatric: negative: Disoriented to person - Lab Results Fish Bones: 01/30/21 14:55 01/30/21 14:55 Assessment/Plan - Problem List (1) Acute on chronic systolic and diastolic heart failure, NYHA class 4 Impression: He is doing well overall. He still edematous but not in overt heart failure. He has been tolerating his heart failure therapy although his pressure was borderline this morning it has improved throughout the day. He is agreeable to hospice and we will plan to get him to a SNF on hospice. (2) Cardiogenic shock Impression: Resolved. His blood pressure stable and tolerating the heart failure therapy. (3) Peripheral vascular disease Impression: Doppler showed high-grade stenosis in the left lower extremity at the distal superficial femoral artery and left posterior tibial artery. The plan is to continue medical management at this time. At times his lower extremity has been cool to touch but this has been related to poor perfusion. The goal is now to focus on his comfort. We will continue with medical management alone. (4) COPD (chronic obstructive pulmonary disease) Impression: Not in exacerbation. Continue albuterol inhaler. (5) Paroxysmal atrial fibrillation Impression: His heart rate has varied from the 90s to 100s. We increased his metoprolol two days ago and we will continue to monitor. (6) Hepatitis Impression: Likely multifactorial secondary to alcohol use as well as ischemic hepatitis secondary to cardiogenic shock. His LFTs have continued to improve on a daily basis. We are no longer trending them. (7) ESETVAN (acute kidney injury) Impression: This has resolved. His renal function is back to baseline. This was likely cardiorenal in nature. (8) Hyponatremia Impression: This is resolved. This was secondary to the heart failure.
[2021-02-04] MEDS: GABAPENTIN 300 MG CAPSULE PO SCH (21:13)
[2021-02-05] MEDS: SODIUM CHLORIDE FLUSH 0.9% 10 ML SYRINGE IVP SCH ×3 (05:32→20:33)
[2021-02-05] MEDS: FUROSEMIDE 40 MG TABLET PO SCH (09:52)
[2021-02-05] MEDS: THIAMINE 100 MG TABLET PO SCH (09:52)
[2021-02-05] MEDS: NICOTINE 14 MG PATCH TOP SCH (09:52)
[2021-02-05] MEDS: SPIRONOLACTONE 25 MG TABLET PO SCH (09:52)
[2021-02-05] MEDS: lisinopriL 5 MG TABLET PO SCH (09:52)
[2021-02-05] MEDS: DIGOXIN 125 MCG TABLET PO SCH (09:52)
[2021-02-05] MEDS: MULTIVITAMIN TABLET PO SCH (09:52)
[2021-02-05] MEDS: polyethylene glycoL 3350 17 GM PACKET PO SCH (09:53)
[2021-02-05] MEDS: METOPROLOL SUCCINATE 50 MG TABLET PO SCH (09:54)
--- NOTE | 2021-02-05 18:49 | PROVIDER PROGRESS NOTE ---
Assessment/Plan - Problem List (1) Acute on chronic systolic and diastolic heart failure, NYHA class 4 Assessment/Plan: stable, eat nearly whole breakfast, pt still present edematous in his legs. ECHO study show EF less 20%. He is agreeable to hospice and we will plan to get him to a SNF on hospice, continue consult with social welfare research worker for placement. (2) Cardiogenic shock Impression: Resolved. (3) Peripheral vascular disease stable, pt is no complaints, The goal is now to focus on his comfort. We will continue with medical management alone. (4) COPD (chronic obstructive pulmonary disease) Impression: Not in exacerbation. Continue albuterol inhaler. (5) Paroxysmal atrial fibrillation Impression: stable, His heart rate has varied from the 90s to 100s. We increased his metoprolol two days ago and we will continue to monitor. (6) Hepatitis Impression: stable, continue comfortable care in the hospital (7) ESTEVAN (acute kidney injury) Impression: This has resolved. (8) Hyponatremia Impression: This is resolved. - Current Meds Current Meds: Current Medications Generic Name Dose Route Start Last Admin Trade Name Freq PRN Reason Stop Dose Admin Digoxin 125 mcg 01/23/21 09:00 02/05/21 09:52 Digoxin 125 Mcg Tablet PO 125 mcg DAILY YONATHAN Administration Furosemide 40 mg 01/31/21 09:00 02/05/21 09:52 Furosemide 40 Mg Tablet PO 40 mg DAILY YONATHAN Administration Gabapentin 300 mg 01/31/21 07:44 02/01/21 14:08 Gabapentin 300 Mg Capsule PO 300 mg 0800,1400 PRN Administration LEG PAIN OR ANXIETY Gabapentin 600 mg 01/31/21 21:00 02/04/21 21:13 Gabapentin 300 Mg Capsule PO 600 mg QPM YONATHAN Administration Heparin Sodium (Beef Lung) 30 - 50 unit 01/27/21 09:45 02/04/21 21:13 Heparin Flush 50 Units/5 Ml Syringe IVP 150 unit PRN PRN Administration Port Protocol (<24 hours) Lisinopril 2.5 mg 02/01/21 09:00 02/05/21 09:52 Lisinopril 5 Mg Tablet PO 2.5 mg DAILY YONATHAN Administration Metoprolol Succinate 50 mg 02/03/21 09:00 02/05/21 09:54 Metoprolol Succinate 50 Mg Tablet PO Not Given DAILY YONATHAN Morphine Sulfate 1 mg 01/18/21 21:45 02/02/21 14:58 Morphine 2 Mg/Ml Carpuject IVP 1 mg Q4HR PRN Administration PAIN Multivitamins 1 tab 01/19/21 08:00 02/05/21 09:52 Multivitamin Tablet PO 1 tab DAILYWM YONATHAN Administration Nicotine 1 patch 02/01/21 18:28 02/05/21 09:52 Nicotine 14 Mg Patch TOP 1 patch DAILY YONATHAN Administration Ondansetron HCl 4 mg 01/18/21 18:18 01/19/21 23:45 Ondansetron 4 Mg/2 Ml Vial IVP 4 mg Q6HR PRN Administration Nausea / Vomiting Oxycodone HCl 5 mg 01/18/21 18:18 02/04/21 21:13 Oxycodone 5 Mg Tablet PO 5 mg Q4HR PRN Administration Pain 5 to 7 Polyethylene Glycol 17 gm 01/22/21 09:00 02/05/21 09:53 Polyethylene Glycol 3350 17 Gm Packet PO Not Given DAILY YONATHAN Sodium Chloride 10 ml 01/18/21 18:18 02/02/21 15:01 Sodium Chloride Flush 0.9% 10 Ml Syringe IVP 10 ml PRN PRN Administration NEEDED PER PROVIDER ORDERS Sodium Chloride 10 ml 01/19/21 01:00 02/05/21 09:53 Sodium Chloride Flush 0.9% 10 Ml Syringe IVP 10 ml 0100,0900,1700 YONATHAN Administration Sodium Chloride 20 ml 01/31/21 09:19 02/02/21 23:53 Sodium Chloride Flush 0.9% 10 Ml Syringe IVP 20 ml PRN PRN Administration After Blood Draw Spironolactone 25 mg 01/27/21 09:00 02/05/21 09:52 Spironolactone 25 Mg Tablet PO 25 mg DAILY YONATHAN Administration Thiamine HCl 100 mg 01/29/21 10:30 02/05/21 09:52 Thiamine 100 Mg Tablet PO 100 mg DAILY YONATHAN Administration - Lab Result Fish Bone Diagrams: 01/30/21 14:55 01/30/21 14:55 Subjective - Subjective Patient Reports: Resting Comfortably Objective Vital Signs: Vital Signs - 24 hr 02/05/21 02/05/21 02/05/21 00:17 08:45 09:40 Temperature 36.5 C 36.7 C Heart Rate [ 94 106 H 100 Radial] Respiratory 18 18 Rate Blood Pressure 94/75 107/73 95/66 [Right Brachial artery] O2 Saturation 97 95 Oxygen O2 Source Room air I&O (Last 24 Hrs): Intake and Output Totals x24h 02/03/21 02/04/21 02/05/21 23:59 23:59 23:59 Intake Total 1355 1440 600 Output Total 1850 5335 1900 Balance -495 -6830 -5419 General: Alert, Oriented x3, Cooperative, No acute distress HEENT: Atraumatic Neck: Supple Lymphatic: no adenopathy Neuro: Alert, Non Focal, Oriented Times 3 Cardiovascular: Regular rate, Normal S1, Normal S2 Respiratory: Chest non-tender, No respiratory distress Abdomen: Normal bowel sounds, Soft Extremities: Normal pulses - Results Results: Laboratory Results WBC 9.6 x10^3/uL (4.8-10.8) 01/30/21 14:55 RBC 4.04 10^6/uL (4.70-6.10) L 01/30/21 14:55 Hgb 13.0 g/dL (14.0-18.0) L 01/30/21 14:55 Hct 40.3 % (42.0-52.0) L 01/30/21 14:55 MCV 99.8 fL (80.0-94.0) H 01/30/21 14:55 MCH 32.2 pg (27.0-31.0) H 01/30/21 14:55 MCHC 32.3 g/dL (32.0-36.0) 01/30/21 14:55 RDW 14.9 % (12.0-15.0) 01/30/21 14:55 Plt Count 211 10^3/uL (130-450) 01/30/21 14:55 MPV 10.9 fL (7.4-11.4) 01/30/21 14:55 Neut # (Auto) 7.0 10^3/uL (1.5-6.6) H 01/30/21 14:55 Lymph # (Auto) 1.4 10^3/uL (1.5-3.5) L 01/30/21 14:55 Butts # (Auto) 0.9 10^3/uL (0.0-1.0) 01/30/21 14:55 Eos # (Auto) 0.2 10^3/uL (0.0-0.7) 01/30/21 14:55 Baso # (Auto) 0.1 10^3/uL (0.0-0.1) 01/30/21 14:55 Absolute Nucleated RBC 0.00 x10^3/uL 01/30/21 14:55 Total Counted 100 01/24/21 04:26 Band Neuts % (Manual) 1 % (0-10) 01/24/21 04:26 Reactive Lymphs % (Man) 3 % 01/18/21 16:51 Abnorm Lymph % (Manual) 0 % 01/24/21 04:26 Nucleated RBC % 0.0 /100WBC 01/30/21 14:55 Neutrophils # (Manual) 6.9 10^3/uL (1.5-6.6) H 01/24/21 04:26 Lymphocytes # (Manual) 0.5 10^3/uL (1.5-3.5) L 01/24/21 04:26 Monocytes # (Manual) 1.5 10^3/uL (0.0-1.0) H 01/24/21 04:26 Eosinophils # (Manual) 0.0 10^3/uL (0-0.7) 01/24/21 04:26 Basophils # (Manual) 0.0 10^3/uL (0-0.1) 01/24/21 04:26 Differential Comment MANUAL DIFFERENTIAL 01/24/21 04:26 Manual Slide Review Indicated 01/24/21 04:26 WBC Morphology NORMAL APPEARANCE (NORMAL) 01/23/21 08:40 Platelet Estimate DECREASED (<130,000) (NORMAL) 01/24/21 04:26 Platelet Morphology NORMAL APPEARANCE (NORMAL) 01/23/21 08:40 RBC Morph Micro Appear NORMAL APPEARANCE (NORMAL) 01/23/21 08:40 PT 21.2 secs (9.9-12.6) H 01/21/21 14:51 INR 1.9 (0.8-1.2) H 01/21/21 14:51 Bld Gas Analysis Time 1311 01/21/21 13:06 Sample Site RIGHT RADIAL 01/21/21 13:06 ABG pH 7.44 (7.35-7.45) 01/21/21 13:06 ABG pCO2 30 mmHg (34-45) L 01/21/21 13:06 ABG pO2 92 mmHg (80-100) 01/21/21 13:06 ABG HCO3 19.6 mmol/L (22.0-26.0) L 01/21/21 13:06 ABG Total CO2 20.5 MMOL/L (21.0-29.0) L 01/21/21 13:06 ABG O2 Saturation 97 % (94-98) 01/21/21 13:06 ABG Base Excess -3.4 mmol/L (-2.0-3.0) L 01/21/21 13:06 Honorio Test POSITIVE 01/21/21 13:06 VBG pH 7.406 (7.31-7.41) 01/24/21 07:51 Ionized Calcium 1.06 mmol/L (1.15-1.33) L 01/24/21 07:51 O2 Delivery Device NON REBREATHER MASK 01/21/21 13:06 O2 Liters/Min 15.00 LPM 01/21/21 13:06 FiO2 100.00 01/21/21 13:06 Sodium 136 mmol/L (135-145) 01/30/21 14:55 Potassium 4.4 mmol/L (3.5-5.0) 01/30/21 14:55 Chloride 101 mmol/L (101-111) 01/30/21 14:55 Carbon Dioxide 25 mmol/L (21-32) 01/30/21 14:55 Anion Gap 10.0 (6-13) 01/30/21 14:55 BUN 17 mg/dL (6-20) 01/30/21 14:55 Creatinine 1.1 mg/dL (0.6-1.2) 01/30/21 14:55 Estimated GFR (MDRD) 69 (>89) L 01/30/21 14:55 Glucose 87 mg/dL (70-100) 01/30/21 14:55 Lactic Acid 2.0 mmol/L (0.5-2.2) 01/22/21 19:02 Calcium 8.3 mg/dL (8.5-10.3) L 01/30/21 14:55 Phosphorus 3.3 mg/dL (2.5-4.6) 01/24/21 04:26 Magnesium 1.8 mg/dL (1.7-2.8) 01/24/21 04:26 Total Bilirubin 2.1 mg/dL (0.2-1.0) H 01/28/21 05:15 Direct Bilirubin 0.9 mg/dL (0.1-0.5) H 01/23/21 04:35 AST 144 IU/L (10-42) H 01/28/21 05:15 ALT 256 IU/L (10-60) H 01/28/21 05:15 Alkaline Phosphatase 103 IU/L (42-121) 01/28/21 05:15 Troponin I High Sens 234.5 ng/L (2.3-19.7) H* 01/22/21 19:02 B-Natriuretic Peptide 4949.00 pg/mL (5-100) H 01/25/21 07:55 Total Protein 5.2 g/dL (6.7-8.2) L 01/28/21 05:15 Albumin 2.8 g/dL (3.2-5.5) L 01/28/21 05:15 Globulin 2.4 g/dL (2.1-4.2) 01/28/21 05:15 Albumin/Globulin Ratio 1.2 (1.0-2.2) 01/28/21 05:15 TSH 7.65 uIU/mL (0.34-5.60) H 01/23/21 04:35 Nasal Adenovirus (PCR) NOT DETECTED 01/18/21 18:22 Nasal B. parapertussis DNA (PCR) NOT DETECTED 01/18/21 18:22 Nasal Coronavir 229E PCR NOT DETECTED 01/18/21 18:22 Nasal Coronavir HKU1 PCR NOT DETECTED 01/18/21 18:22 Nasal Coronavir NL63 PCR NOT DETECTED 01/18/21 18:22 Nasal Coronavir OC43 PCR NOT DETECTED 01/18/21 18:22 Nasal Enterovir/Rhinovir PCR NOT DETECTED 01/18/21 18:22 Nasal Influenza B PCR NOT DETECTED 01/18/21 18:22 Nasal Influenza A PCR NOT DETECTED 01/18/21 18:22 Nasal Parainfluen 1 PCR NOT DETECTED 01/18/21 18:22 Nasal Parainfluen 2 PCR NOT DETECTED 01/18/21 18:22 Nasal Parainfluen 3 PCR NOT DETECTED 01/18/21 18:22 Nasal Parainfluen 4 PCR NOT DETECTED 01/18/21 18:22 Nasal RSV (PCR) NOT DETECTED 01/18/21 18:22 Nasal Screen MRSA (PCR) NEGATIVE (NEGATIVE) 01/21/21 12:45 Nasal B.pertussis DNA PCR NOT DETECTED 01/18/21 18:22 Nasal C.pneumoniae (PCR) NOT DETECTED 01/18/21 18:22 [place] Human Metapneumo PCR NOT DETECTED 01/18/21 18:22 Nasal M.pneumoniae (PCR) NOT DETECTED 01/18/21 18:22 Nasal SARS-CoV-2 (PCR) NOT DETECTED 01/18/21 18:22 Last Dose Date 01/26/21 01/27/21 06:25 Last Dose Time 1016 01/27/21 06:25 Digoxin 0.2 ng/mL 01/27/21 06:25 Ethyl Alcohol < 5.0 mg/dL 01/18/21 16:51 Hepatitis A IgM Ab NON-REACTIVE (NON-REACTIVE) 01/19/21 06:19 Hep Bs Antigen NON-REACTIVE (NON-REACTIVE) 01/19/21 06:19 Hep B Core IgM Ab NON-REACTIVE (NON-REACTIVE) 01/19/21 06:19 Hepatitis C Antibody REACTIVE (NON-REACTIVE) A 01/19/21 06:19 Hep C Ab Signal/Cutoff 6.50 (<1.00) H 01/19/21 06:19 - Procedures Procedures: Procedures COLONOSCOPY (08/16/13) ABX Reporting Has patient been on IV antibiotics over the past 48 hours?: No Current Medications - Current Medications Current Medications: Active Medications Albuterol (Albuterol 1 Puff) 2 puffs INH Q4HR PRN PRN Reason: Dyspnea Digoxin (Digoxin 125 Mcg Tablet) 125 mcg PO DAILY [facility] Last Admin: 02/06/21 11:18 Dose: 125 mcg Documented by: Furosemide (Furosemide 40 Mg Tablet) 40 mg PO DAILY YONATHAN Last Admin: 02/06/21 11:18 Dose: 40 mg Documented by: Gabapentin (Gabapentin 300 Mg Capsule) 300 mg PO 0800,1400 PRN PRN Reason: LEG PAIN OR ANXIETY Last Admin: 02/01/21 14:08 Dose: 300 mg Documented by: Gabapentin (Gabapentin 300 Mg Capsule) 600 mg PO QPM [facility] Last Admin: 02/05/21 20:32 Dose: 600 mg Documented by: Heparin Sodium (Beef Lung) (Heparin Flush 50 Units/5 Ml Syringe) 30 - 50 unit IVP PRN PRN PRN Reason: Port Protocol (<24 hours) Last Admin: 02/05/21 20:32 Dose: 150 unit Documented by: Lisinopril (Lisinopril 5 Mg Tablet) 2.5 mg PO DAILY [facility] Last Admin: 02/06/21 11:17 Dose: 2.5 mg Documented by: Metoprolol Succinate (Metoprolol Succinate 50 Mg Tablet) 50 mg PO DAILY [facility] Last Admin: 02/06/21 11:17 Dose: 50 mg Documented by: Morphine Sulfate (Morphine 2 Mg/Ml Carpuject) 1 mg IVP Q4HR PRN PRN Reason: PAIN Last Admin: 02/02/21 14:58 Dose: 1 mg Documented by: Multivitamins (Multivitamin Tablet) 1 tab PO DAILYWM [facility] Last Admin: 02/06/21 11:17 Dose: 1 tab Documented by: Nicotine (Nicotine 14 Mg Patch) 1 patch TOP DAILY [facility] Last Admin: 02/06/21 13:00 Dose: Not Given Documented by: Ondansetron HCl (Ondansetron 4 Mg/2 Ml Vial) 4 mg IVP Q6HR PRN PRN Reason: Nausea / Vomiting Last Admin: 01/19/21 23:45 Dose: 4 mg Documented by: Oxycodone HCl (Oxycodone 5 Mg Tablet) 5 mg PO Q4HR PRN PRN Reason: Pain 5 to 7 Last Admin: 02/06/21 11:18 Dose: 5 mg Documented by: Polyethylene Glycol (Polyethylene Glycol 3350 17 Gm Packet) 17 gm PO DAILY [facility] Last Admin: 02/06/21 13:00 Dose: Not Given Documented by: Sodium Chloride (Sodium Chloride Flush 0.9% 10 Ml Syringe) 10 ml IVP PRN PRN PRN Reason: NEEDED PER PROVIDER ORDERS Last Admin: 02/02/21 15:01 Dose: 10 ml Documented by: Sodium Chloride (Sodium Chloride Flush 0.9% 10 Ml Syringe) 10 ml IVP 0100,0900,1700 [facility] Last Admin: 02/06/21 13:10 Dose: 30 ml Documented by: Sodium Chloride (Sodium Chloride Flush 0.9% 10 Ml Syringe) 20 ml IVP PRN PRN PRN Reason: After Blood Draw Last Admin: 02/02/21 23:53 Dose: 20 ml Documented by: Spironolactone (Spironolactone 25 Mg Tablet) 25 mg PO DAILY YONATHAN Last Admin: 02/06/21 13:03 Dose: 25 mg Documented by: Thiamine HCl (Thiamine 100 Mg Tablet) 100 mg PO DAILY YONATHAN Last Admin: 02/06/21 13:04 Dose: 100 mg Documented by: Citalopram [CeleXA] 10 mg ORAL DAILY 09/15/20 Gabapentin [Neurontin] 300 mg PO 0800,1400 PRN 01/19/21 Gabapentin [Neurontin] 600 mg PO QPM 01/19/21 Metoprolol Succinate [Toprol Xl] 25 mg PO DAILY 01/19/21
[2021-02-05] MEDS: oxyCODONE 5 MG TABLET PO PRN (20:32)
[2021-02-05] MEDS: GABAPENTIN 300 MG CAPSULE PO SCH (20:32)
[2021-02-06] MEDS: SODIUM CHLORIDE FLUSH 0.9% 10 ML SYRINGE IVP SCH ×3 (05:18→16:07)
[2021-02-06] MEDS: METOPROLOL SUCCINATE 50 MG TABLET PO SCH (11:17)
[2021-02-06] MEDS: lisinopriL 5 MG TABLET PO SCH (11:17)
[2021-02-06] MEDS: MULTIVITAMIN TABLET PO SCH (11:17)
[2021-02-06] MEDS: FUROSEMIDE 40 MG TABLET PO SCH (11:18)
[2021-02-06] MEDS: DIGOXIN 125 MCG TABLET PO SCH (11:18)
[2021-02-06] MEDS: oxyCODONE 5 MG TABLET PO PRN ×2 (11:18→16:07)
[2021-02-06] MEDS: polyethylene glycoL 3350 17 GM PACKET PO SCH (13:00)
[2021-02-06] MEDS: NICOTINE 14 MG PATCH TOP SCH (13:00)
[2021-02-06] MEDS: SPIRONOLACTONE 25 MG TABLET PO SCH (13:03)
[2021-02-06] MEDS: THIAMINE 100 MG TABLET PO SCH (13:04)
--- NOTE | 2021-02-06 13:50 | PROVIDER PROGRESS NOTE ---
Assessment/Plan - Problem List (1) Acute on chronic systolic and diastolic heart failure, NYHA class 4 Assessment/Plan: 02/06 pt has no complaint, continue hospice care after d/c, and consult social media analyst for placement. stable, eat nearly whole breakfast, pt still present edematous in his legs. ECHO study show EF less 20%. He is agreeable to hospice and we will plan to get him to a SNF on hospice, continue consult with social media analyst for placement. (2) Cardiogenic shock Impression: Resolved. (3) Peripheral vascular disease stable, pt is no complaints, The goal is now to focus on his comfort. We will continue with medical management alone. (4) COPD (chronic obstructive pulmonary disease) Impression: Not in exacerbation. Continue albuterol inhaler. (5) Paroxysmal atrial fibrillation Impression: stable, His heart rate has varied from the 90s to 100s. We increased his metoprolol two days ago and we will continue to monitor. (6) Hepatitis Impression: stable, continue comfortable care in the hospital (7) ESTEVAN (acute kidney injury) Impression: This has resolved. (8) Hyponatremia Impression: This is resolved. - Current Meds Current Meds: Current Medications Generic Name Dose Route Start Last Admin Trade Name Freq PRN Reason Stop Dose Admin Digoxin 125 mcg 01/23/21 09:00 02/06/21 11:18 Digoxin 125 Mcg Tablet PO 125 mcg DAILY YONATHAN Administration Furosemide 40 mg 01/31/21 09:00 02/06/21 11:18 Furosemide 40 Mg Tablet PO 40 mg DAILY YONATHAN Administration Gabapentin 300 mg 01/31/21 07:44 02/01/21 14:08 Gabapentin 300 Mg Capsule PO 300 mg 0800,1400 PRN Administration LEG PAIN OR ANXIETY Gabapentin 600 mg 01/31/21 21:00 02/05/21 20:32 Gabapentin 300 Mg Capsule PO 600 mg QPM YONATHAN Administration Heparin Sodium (Beef Lung) 30 - 50 unit 01/27/21 09:45 02/05/21 20:32 Heparin Flush 50 Units/5 Ml Syringe IVP 150 unit PRN PRN Administration Port Protocol (<24 hours) Lisinopril 2.5 mg 02/01/21 09:00 02/06/21 11:17 Lisinopril 5 Mg Tablet PO 2.5 mg DAILY YONATHAN Administration Metoprolol Succinate 50 mg 02/03/21 09:00 02/06/21 11:17 Metoprolol Succinate 50 Mg Tablet PO 50 mg DAILY YONATHAN Administration Morphine Sulfate 1 mg 01/18/21 21:45 02/02/21 14:58 Morphine 2 Mg/Ml Carpuject IVP 1 mg Q4HR PRN Administration PAIN Multivitamins 1 tab 01/19/21 08:00 02/06/21 11:17 Multivitamin Tablet PO 1 tab DAILYWM YONATHAN Administration Nicotine 1 patch 02/01/21 18:28 02/06/21 13:00 Nicotine 14 Mg Patch TOP Not Given DAILY YONATHAN Ondansetron HCl 4 mg 01/18/21 18:18 01/19/21 23:45 Ondansetron 4 Mg/2 Ml Vial IVP 4 mg Q6HR PRN Administration Nausea / Vomiting Oxycodone HCl 5 mg 01/18/21 18:18 02/06/21 11:18 Oxycodone 5 Mg Tablet PO 5 mg Q4HR PRN Administration Pain 5 to 7 Polyethylene Glycol 17 gm 01/22/21 09:00 02/06/21 13:00 Polyethylene Glycol 3350 17 Gm Packet PO Not Given DAILY YONATHAN Sodium Chloride 10 ml 01/18/21 18:18 02/02/21 15:01 Sodium Chloride Flush 0.9% 10 Ml Syringe IVP 10 ml PRN PRN Administration NEEDED PER PROVIDER ORDERS Sodium Chloride 10 ml 01/19/21 01:00 02/06/21 13:10 Sodium Chloride Flush 0.9% 10 Ml Syringe IVP 30 ml 0100,0900,1700 YONATHAN Administration Sodium Chloride 20 ml 01/31/21 09:19 02/02/21 23:53 Sodium Chloride Flush 0.9% 10 Ml Syringe IVP 20 ml PRN PRN Administration After Blood Draw Spironolactone 25 mg 01/27/21 09:00 02/06/21 13:03 Spironolactone 25 Mg Tablet PO 25 mg DAILY YONATHAN Administration Thiamine HCl 100 mg 01/29/21 10:30 02/06/21 13:04 Thiamine 100 Mg Tablet PO 100 mg DAILY YONATHAN Administration - Lab Result Fish Bone Diagrams: 01/30/21 14:55 01/30/21 14:55 - Additional Planning My Orders: My Active Orders 02/06/21 10:57 CHF Education [RC] .ONCE Subjective - Subjective Patient Reports: Resting Comfortably Objective Vital Signs: Vital Signs - 24 hr 02/05/21 02/06/21 02/06/21 17:00 00:31 07:00 Temperature 36.5 C 36.6 C 36.7 C Heart Rate [ 100 105 H 97 Brachial] Respiratory 20 16 16 Rate Blood Pressure 102/78 [Left Brachial artery] Blood Pressure 96/69 108/78 [Right Brachial artery] O2 Saturation 99 97 99 Oxygen O2 Source Room air I&O (Last 24 Hrs): Intake and Output Totals x24h 02/04/21 02/05/21 02/06/21 23:59 23:59 23:59 Intake Total 1440 1080 1025 Output Total 3625 1900 1775 Balance -2185 -820 -750 General: Alert, Oriented x3, Cooperative, No acute distress HEENT: Atraumatic Neck: Supple Lymphatic: no adenopathy Neuro: Alert, Non Focal, Oriented Times 3 Cardiovascular: Regular rate, Normal S1, Normal S2 Respiratory: Chest non-tender, No respiratory distress Abdomen: Normal bowel sounds, Soft Extremities: Normal pulses - Results Results: Laboratory Results WBC 9.6 x10^3/uL (4.8-10.8) 01/30/21 14:55 RBC 4.04 10^6/uL (4.70-6.10) L 01/30/21 14:55 Hgb 13.0 g/dL (14.0-18.0) L 01/30/21 14:55 Hct 40.3 % (42.0-52.0) L 01/30/21 14:55 MCV 99.8 fL (80.0-94.0) H 01/30/21 14:55 MCH 32.2 pg (27.0-31.0) H 01/30/21 14:55 MCHC 32.3 g/dL (32.0-36.0) 01/30/21 14:55 RDW 14.9 % (12.0-15.0) 01/30/21 14:55 Plt Count 211 10^3/uL (130-450) 01/30/21 14:55 MPV 10.9 fL (7.4-11.4) 01/30/21 14:55 Neut # (Auto) 7.0 10^3/uL (1.5-6.6) H 01/30/21 14:55 Lymph # (Auto) 1.4 10^3/uL (1.5-3.5) L 01/30/21 14:55 [place] # (Auto) 0.9 10^3/uL (0.0-1.0) 01/30/21 14:55 Eos # (Auto) 0.2 10^3/uL (0.0-0.7) 01/30/21 14:55 Baso # (Auto) 0.1 10^3/uL (0.0-0.1) 01/30/21 14:55 Absolute Nucleated RBC 0.00 x10^3/uL 01/30/21 14:55 Total Counted 100 01/24/21 04:26 Band Neuts % (Manual) 1 % (0-10) 01/24/21 04:26 Reactive Lymphs % (Man) 3 % 01/18/21 16:51 Abnorm Lymph % (Manual) 0 % 01/24/21 04:26 Nucleated RBC % 0.0 /100WBC 01/30/21 14:55 Neutrophils # (Manual) 6.9 10^3/uL (1.5-6.6) H 01/24/21 04:26 Lymphocytes # (Manual) 0.5 10^3/uL (1.5-3.5) L 01/24/21 04:26 Monocytes # (Manual) 1.5 10^3/uL (0.0-1.0) H 01/24/21 04:26 Eosinophils # (Manual) 0.0 10^3/uL (0-0.7) 01/24/21 04:26 Basophils # (Manual) 0.0 10^3/uL (0-0.1) 01/24/21 04:26 Differential Comment MANUAL DIFFERENTIAL 01/24/21 04:26 Manual Slide Review Indicated 01/24/21 04:26 WBC Morphology NORMAL APPEARANCE (NORMAL) 01/23/21 08:40 Platelet Estimate DECREASED (<130,000) (NORMAL) 01/24/21 04:26 Platelet Morphology NORMAL APPEARANCE (NORMAL) 01/23/21 08:40 RBC Morph Micro Appear NORMAL APPEARANCE (NORMAL) 01/23/21 08:40 PT 21.2 secs (9.9-12.6) H 01/21/21 14:51 INR 1.9 (0.8-1.2) H 01/21/21 14:51 Bld Gas Analysis Time 1311 01/21/21 13:06 Sample Site RIGHT RADIAL 01/21/21 13:06 ABG pH 7.44 (7.35-7.45) 01/21/21 13:06 ABG pCO2 30 mmHg (34-45) L 01/21/21 13:06 ABG pO2 92 mmHg (80-100) 01/21/21 13:06 ABG HCO3 19.6 mmol/L (22.0-26.0) L 01/21/21 13:06 ABG Total CO2 20.5 MMOL/L (21.0-29.0) L 01/21/21 13:06 ABG O2 Saturation 97 % (94-98) 01/21/21 13:06 ABG Base Excess -3.4 mmol/L (-2.0-3.0) L 01/21/21 13:06 Honorio Test POSITIVE 01/21/21 13:06 VBG pH 7.406 (7.31-7.41) 01/24/21 07:51 Ionized Calcium 1.06 mmol/L (1.15-1.33) L 01/24/21 07:51 O2 Delivery Device NON REBREATHER MASK 01/21/21 13:06 O2 Liters/Min 15.00 LPM 01/21/21 13:06 FiO2 100.00 01/21/21 13:06 Sodium 136 mmol/L (135-145) 01/30/21 14:55 Potassium 4.4 mmol/L (3.5-5.0) 01/30/21 14:55 Chloride 101 mmol/L (101-111) 01/30/21 14:55 Carbon Dioxide 25 mmol/L (21-32) 01/30/21 14:55 Anion Gap 10.0 (6-13) 01/30/21 14:55 BUN 17 mg/dL (6-20) 01/30/21 14:55 Creatinine 1.1 mg/dL (0.6-1.2) 01/30/21 14:55 Estimated GFR (MDRD) 69 (>89) L 01/30/21 14:55 Glucose 87 mg/dL (70-100) 01/30/21 14:55 Lactic Acid 2.0 mmol/L (0.5-2.2) 01/22/21 19:02 Calcium 8.3 mg/dL (8.5-10.3) L 01/30/21 14:55 Phosphorus 3.3 mg/dL (2.5-4.6) 01/24/21 04:26 Magnesium 1.8 mg/dL (1.7-2.8) 01/24/21 04:26 Total Bilirubin 2.1 mg/dL (0.2-1.0) H 01/28/21 05:15 Direct Bilirubin 0.9 mg/dL (0.1-0.5) H 01/23/21 04:35 AST 144 IU/L (10-42) H 01/28/21 05:15 ALT 256 IU/L (10-60) H 01/28/21 05:15 Alkaline Phosphatase 103 IU/L (42-121) 01/28/21 05:15 Troponin I High Sens 234.5 ng/L (2.3-19.7) H* 01/22/21 19:02 B-Natriuretic Peptide 4949.00 pg/mL (5-100) H 01/25/21 07:55 Total Protein 5.2 g/dL (6.7-8.2) L 01/28/21 05:15 Albumin 2.8 g/dL (3.2-5.5) L 01/28/21 05:15 Globulin 2.4 g/dL (2.1-4.2) 01/28/21 05:15 Albumin/Globulin Ratio 1.2 (1.0-2.2) 01/28/21 05:15 TSH 7.65 uIU/mL (0.34-5.60) H 01/23/21 04:35 Nasal Adenovirus (PCR) NOT DETECTED 01/18/21 18:22 Nasal B. parapertussis DNA (PCR) NOT DETECTED 01/18/21 18:22 Nasal Coronavir 229E PCR NOT DETECTED 01/18/21 18:22 Nasal Coronavir HKU1 PCR NOT DETECTED 01/18/21 18:22 Nasal Coronavir NL63 PCR NOT DETECTED 01/18/21 18:22 Nasal Coronavir OC43 PCR NOT DETECTED 01/18/21 18:22 Nasal Enterovir/Rhinovir PCR NOT DETECTED 01/18/21 18:22 Nasal Influenza B PCR NOT DETECTED 01/18/21 18:22 Nasal Influenza A PCR NOT DETECTED 01/18/21 18:22 Nasal Parainfluen 1 PCR NOT DETECTED 01/18/21 18:22 Nasal Parainfluen 2 PCR NOT DETECTED 01/18/21 18:22 Nasal Parainfluen 3 PCR NOT DETECTED 01/18/21 18:22 Nasal Parainfluen 4 PCR NOT DETECTED 01/18/21 18:22 Nasal RSV (PCR) NOT DETECTED 01/18/21 18:22 Nasal Screen MRSA (PCR) NEGATIVE (NEGATIVE) 01/21/21 12:45 Nasal B.pertussis DNA PCR NOT DETECTED 01/18/21 18:22 Nasal C.pneumoniae (PCR) NOT DETECTED 01/18/21 18:22 [place] Human Metapneumo PCR NOT DETECTED 01/18/21 18:22 Nasal M.pneumoniae (PCR) NOT DETECTED 01/18/21 18:22 Nasal SARS-CoV-2 (PCR) NOT DETECTED 01/18/21 18:22 Last Dose Date 01/26/21 01/27/21 06:25 Last Dose Time 1016 01/27/21 06:25 Digoxin 0.2 ng/mL 01/27/21 06:25 Ethyl Alcohol < 5.0 mg/dL 01/18/21 16:51 Hepatitis A IgM Ab NON-REACTIVE (NON-REACTIVE) 01/19/21 06:19 Hep Bs Antigen NON-REACTIVE (NON-REACTIVE) 01/19/21 06:19 Hep B Core IgM Ab NON-REACTIVE (NON-REACTIVE) 01/19/21 06:19 Hepatitis C Antibody REACTIVE (NON-REACTIVE) A 01/19/21 06:19 Hep C Ab Signal/Cutoff 6.50 (<1.00) H 01/19/21 06:19 - Procedures Procedures: Procedures COLONOSCOPY (08/16/13) ABX Reporting Has patient been on IV antibiotics over the past 48 hours?: No Current Medications - Current Medications Current Medications: Active Medications Albuterol (Albuterol 1 Puff) 2 puffs INH Q4HR PRN PRN Reason: Dyspnea Digoxin (Digoxin 125 Mcg Tablet) 125 mcg PO DAILY [facility] Last Admin: 02/06/21 11:18 Dose: 125 mcg Documented by: Furosemide (Furosemide 40 Mg Tablet) 40 mg PO DAILY YONATHAN Last Admin: 02/06/21 11:18 Dose: 40 mg Documented by: Gabapentin (Gabapentin 300 Mg Capsule) 300 mg PO 0800,1400 PRN PRN Reason: LEG PAIN OR ANXIETY Last Admin: 02/01/21 14:08 Dose: 300 mg Documented by: Gabapentin (Gabapentin 300 Mg Capsule) 600 mg PO QPM [facility] Last Admin: 02/05/21 20:32 Dose: 600 mg Documented by: Heparin Sodium (Beef Lung) (Heparin Flush 50 Units/5 Ml Syringe) 30 - 50 unit IVP PRN PRN PRN Reason: Port Protocol (<24 hours) Last Admin: 02/05/21 20:32 Dose: 150 unit Documented by: Lisinopril (Lisinopril 5 Mg Tablet) 2.5 mg PO DAILY [facility] Last Admin: 02/06/21 11:17 Dose: 2.5 mg Documented by: Metoprolol Succinate (Metoprolol Succinate 50 Mg Tablet) 50 mg PO DAILY [facility] Last Admin: 02/06/21 11:17 Dose: 50 mg Documented by: Morphine Sulfate (Morphine 2 Mg/Ml Carpuject) 1 mg IVP Q4HR PRN PRN Reason: PAIN Last Admin: 02/02/21 14:58 Dose: 1 mg Documented by: Multivitamins (Multivitamin Tablet) 1 tab PO DAILYWM [facility] Last Admin: 02/06/21 11:17 Dose: 1 tab Documented by: Nicotine (Nicotine 14 Mg Patch) 1 patch TOP DAILY [facility] Last Admin: 02/06/21 13:00 Dose: Not Given Documented by: Ondansetron HCl (Ondansetron 4 Mg/2 Ml Vial) 4 mg IVP Q6HR PRN PRN Reason: Nausea / Vomiting Last Admin: 01/19/21 23:45 Dose: 4 mg Documented by: Oxycodone HCl (Oxycodone 5 Mg Tablet) 5 mg PO Q4HR PRN PRN Reason: Pain 5 to 7 Last Admin: 02/06/21 11:18 Dose: 5 mg Documented by: Polyethylene Glycol (Polyethylene Glycol 3350 17 Gm Packet) 17 gm PO DAILY [facility] Last Admin: 02/06/21 13:00 Dose: Not Given Documented by: Sodium Chloride (Sodium Chloride Flush 0.9% 10 Ml Syringe) 10 ml IVP PRN PRN PRN Reason: NEEDED PER PROVIDER ORDERS Last Admin: 02/02/21 15:01 Dose: 10 ml Documented by: Sodium Chloride (Sodium Chloride Flush 0.9% 10 Ml Syringe) 10 ml IVP 0100,0900,1700 [facility] Last Admin: 02/06/21 13:10 Dose: 30 ml Documented by: Sodium Chloride (Sodium Chloride Flush 0.9% 10 Ml Syringe) 20 ml IVP PRN PRN PRN Reason: After Blood Draw Last Admin: 02/02/21 23:53 Dose: 20 ml Documented by: Spironolactone (Spironolactone 25 Mg Tablet) 25 mg PO DAILY [facility] Last Admin: 02/06/21 13:03 Dose: 25 mg Documented by: Thiamine HCl (Thiamine 100 Mg Tablet) 100 mg PO DAILY [facility] Last Admin: 02/06/21 13:04 Dose: 100 mg Documented by: Citalopram [CeleXA] 10 mg ORAL DAILY 09/15/20 Gabapentin [Neurontin] 300 mg PO 0800,1400 PRN 01/19/21 Gabapentin [Neurontin] 600 mg PO QPM 01/19/21 Metoprolol Succinate [Toprol Xl] 25 mg PO DAILY 01/19/21
[2021-02-06] MEDS: GABAPENTIN 300 MG CAPSULE PO SCH (20:49)
[2021-02-07] MEDS: oxyCODONE 5 MG TABLET PO PRN ×2 (00:10→11:58)
[2021-02-07] MEDS: SODIUM CHLORIDE FLUSH 0.9% 10 ML SYRINGE IVP SCH ×3 (00:11→16:44)
[2021-02-07] MEDS: FUROSEMIDE 40 MG TABLET PO SCH (08:15)
[2021-02-07] MEDS: DIGOXIN 125 MCG TABLET PO SCH (08:15)
[2021-02-07] MEDS: lisinopriL 5 MG TABLET PO SCH (08:15)
[2021-02-07] MEDS: METOPROLOL SUCCINATE 50 MG TABLET PO SCH (08:15)
[2021-02-07] MEDS: NICOTINE 14 MG PATCH TOP SCH (08:19)
[2021-02-07] MEDS: MULTIVITAMIN TABLET PO SCH (08:23)
[2021-02-07] MEDS: GABAPENTIN 300 MG CAPSULE PO PRN (08:24)
[2021-02-07] MEDS: polyethylene glycoL 3350 17 GM PACKET PO SCH (08:24)
[2021-02-07] MEDS: SPIRONOLACTONE 25 MG TABLET PO SCH (08:24)
[2021-02-07] MEDS: THIAMINE 100 MG TABLET PO SCH (08:24)
--- NOTE | 2021-02-07 11:57 | PROVIDER PROGRESS NOTE ---
Assessment/Plan - Problem List (1) Acute on chronic systolic and diastolic heart failure, NYHA class 4 Assessment/Plan: 02/06 pt is stable, will continue current care at hospital, continue consult with social worker aide for placement for hospice care. 02/06 pt has no complaint, continue hospice care after d/c, and consult social worker aide for placement. stable, eat nearly whole breakfast, pt still present edematous in his legs. ECHO study show EF less 20%. He is agreeable to hospice and we will plan to get him to a SNF on hospice, continue consult with social worker aide for placement. (2) Cardiogenic shock Impression: Resolved. (3) Peripheral vascular disease stable, pt is no complaints, The goal is now to focus on his comfort. We will continue with medical management alone. (4) COPD (chronic obstructive pulmonary disease) Impression: Not in exacerbation. Continue albuterol inhaler. (5) Paroxysmal atrial fibrillation Impression: stable, His heart rate has varied from the 90s to 100s. We increased his metoprolol two days ago and we will continue to monitor. (6) Hepatitis Impression: stable, continue comfortable care in the hospital (7) ESTEVAN (acute kidney injury) Impression: This has resolved. (8) Hyponatremia Impression: This is resolved. - Current Meds Current Meds: Current Medications Generic Name Dose Route Start Last Admin Trade Name Aminah PRN Reason Stop Dose Admin Digoxin 125 mcg 01/23/21 09:00 02/07/21 08:15 Digoxin 125 Mcg Tablet PO 125 mcg DAILY YONATHAN Administration Furosemide 40 mg 01/31/21 09:00 02/07/21 08:15 Furosemide 40 Mg Tablet PO 40 mg DAILY YONATHAN Administration Gabapentin 300 mg 01/31/21 07:44 02/07/21 08:24 Gabapentin 300 Mg Capsule PO 300 mg 0800,1400 PRN Administration LEG PAIN OR ANXIETY Gabapentin 600 mg 01/31/21 21:00 02/06/21 20:49 Gabapentin 300 Mg Capsule PO 600 mg QPM YONATHAN Administration Heparin Sodium (Beef Lung) 30 - 50 unit 01/27/21 09:45 02/05/21 20:32 Heparin Flush 50 Units/5 Ml Syringe IVP 150 unit PRN PRN Administration Port Protocol (<24 hours) Lisinopril 2.5 mg 02/01/21 09:00 02/07/21 08:15 Lisinopril 5 Mg Tablet PO 2.5 mg DAILY YONATHAN Administration Metoprolol Succinate 50 mg 02/03/21 09:00 02/07/21 08:15 Metoprolol Succinate 50 Mg Tablet PO 50 mg DAILY YONATHAN Administration Morphine Sulfate 1 mg 01/18/21 21:45 02/02/21 14:58 Morphine 2 Mg/Ml Carpuject IVP 1 mg Q4HR PRN Administration PAIN Multivitamins 1 tab 01/19/21 08:00 02/07/21 08:23 Multivitamin Tablet PO 1 tab DAILYWM YONATHAN Administration Nicotine 1 patch 02/01/21 18:28 02/07/21 08:19 Nicotine 14 Mg Patch TOP Not Given DAILY YONATHAN Ondansetron HCl 4 mg 01/18/21 18:18 01/19/21 23:45 Ondansetron 4 Mg/2 Ml Vial IVP 4 mg Q6HR PRN Administration Nausea / Vomiting Oxycodone HCl 5 mg 01/18/21 18:18 02/07/21 00:10 Oxycodone 5 Mg Tablet PO 5 mg Q4HR PRN Administration Pain 5 to 7 Polyethylene Glycol 17 gm 01/22/21 09:00 02/07/21 08:24 Polyethylene Glycol 3350 17 Gm Packet PO Not Given DAILY YONATHAN Sodium Chloride 10 ml 01/18/21 18:18 02/02/21 15:01 Sodium Chloride Flush 0.9% 10 Ml Syringe IVP 10 ml PRN PRN Administration NEEDED PER PROVIDER ORDERS Sodium Chloride 10 ml 01/19/21 01:00 02/07/21 00:11 Sodium Chloride Flush 0.9% 10 Ml Syringe IVP 10 ml 0100,0900,1700 YONATHAN Administration Sodium Chloride 20 ml 01/31/21 09:19 02/02/21 23:53 Sodium Chloride Flush 0.9% 10 Ml Syringe IVP 20 ml PRN PRN Administration After Blood Draw Spironolactone 25 mg 01/27/21 09:00 02/07/21 08:24 Spironolactone 25 Mg Tablet PO 25 mg DAILY YONATHAN Administration Thiamine HCl 100 mg 01/29/21 10:30 02/07/21 08:24 Thiamine 100 Mg Tablet PO 100 mg DAILY YONATHAN Administration - Lab Result Fish Bone Diagrams: 01/30/21 14:55 01/30/21 14:55 - Additional Planning My Orders: My Active Orders 02/06/21 10:57 CHF Education [RC] .ONCE Subjective - Subjective Patient Reports: Resting Comfortably Nursing Reports: No Complaints Objective Vital Signs: Vital Signs - 24 hr 02/06/21 02/06/21 02/07/21 15:35 23:30 07:45 Temperature 36.8 C 36.7 C 36.8 C Heart Rate [ 85 100 90 Brachial] Respiratory 18 16 18 Rate Blood Pressure 96/73 99/71 100/67 [Right Brachial artery] O2 Saturation 98 98 96 Oxygen O2 Source Room air I&O (Last 24 Hrs): Intake and Output Totals x24h 02/05/21 02/06/21 02/07/21 23:59 23:59 23:59 Intake Total 1080 1665 595 Output Total 1900 2825 1375 Balance -820 -1160 -780 General: Alert, Oriented x3, Cooperative, No acute distress HEENT: Atraumatic Neck: Supple Lymphatic: no adenopathy Neuro: Alert, Non Focal, Oriented Times 3 Cardiovascular: Regular rate, Normal S1, Normal S2 Respiratory: Chest non-tender, No respiratory distress Abdomen: Normal bowel sounds, Soft Extremities: Normal pulses - Results Results: Laboratory Results WBC 9.6 x10^3/uL (4.8-10.8) 01/30/21 14:55 RBC 4.04 10^6/uL (4.70-6.10) L 01/30/21 14:55 Hgb 13.0 g/dL (14.0-18.0) L 01/30/21 14:55 Hct 40.3 % (42.0-52.0) L 01/30/21 14:55 MCV 99.8 fL (80.0-94.0) H 01/30/21 14:55 MCH 32.2 pg (27.0-31.0) H 01/30/21 14:55 MCHC 32.3 g/dL (32.0-36.0) 01/30/21 14:55 RDW 14.9 % (12.0-15.0) 01/30/21 14:55 Plt Count 211 10^3/uL (130-450) 01/30/21 14:55 MPV 10.9 fL (7.4-11.4) 01/30/21 14:55 Neut # (Auto) 7.0 10^3/uL (1.5-6.6) H 01/30/21 14:55 Lymph # (Auto) 1.4 10^3/uL (1.5-3.5) L 01/30/21 14:55 Swain # (Auto) 0.9 10^3/uL (0.0-1.0) 01/30/21 14:55 Eos # (Auto) 0.2 10^3/uL (0.0-0.7) 01/30/21 14:55 Baso # (Auto) 0.1 10^3/uL (0.0-0.1) 01/30/21 14:55 Absolute Nucleated RBC 0.00 x10^3/uL 01/30/21 14:55 Total Counted 100 01/24/21 04:26 Band Neuts % (Manual) 1 % (0-10) 01/24/21 04:26 Reactive Lymphs % (Man) 3 % 01/18/21 16:51 Abnorm Lymph % (Manual) 0 % 01/24/21 04:26 Nucleated RBC % 0.0 /100WBC 01/30/21 14:55 Neutrophils # (Manual) 6.9 10^3/uL (1.5-6.6) H 01/24/21 04:26 Lymphocytes # (Manual) 0.5 10^3/uL (1.5-3.5) L 01/24/21 04:26 Monocytes # (Manual) 1.5 10^3/uL (0.0-1.0) H 01/24/21 04:26 Eosinophils # (Manual) 0.0 10^3/uL (0-0.7) 01/24/21 04:26 Basophils # (Manual) 0.0 10^3/uL (0-0.1) 01/24/21 04:26 Differential Comment MANUAL DIFFERENTIAL 01/24/21 04:26 Manual Slide Review Indicated 01/24/21 04:26 WBC Morphology NORMAL APPEARANCE (NORMAL) 01/23/21 08:40 Platelet Estimate DECREASED (<130,000) (NORMAL) 01/24/21 04:26 Platelet Morphology NORMAL APPEARANCE (NORMAL) 01/23/21 08:40 RBC Morph Micro Appear NORMAL APPEARANCE (NORMAL) 01/23/21 08:40 PT 21.2 secs (9.9-12.6) H 01/21/21 14:51 INR 1.9 (0.8-1.2) H 01/21/21 14:51 Bld Gas Analysis Time 1311 01/21/21 13:06 Sample Site RIGHT RADIAL 01/21/21 13:06 ABG pH 7.44 (7.35-7.45) 01/21/21 13:06 ABG pCO2 30 mmHg (34-45) L 01/21/21 13:06 ABG pO2 92 mmHg (80-100) 01/21/21 13:06 ABG HCO3 19.6 mmol/L (22.0-26.0) L 01/21/21 13:06 ABG Total CO2 20.5 MMOL/L (21.0-29.0) L 01/21/21 13:06 ABG O2 Saturation 97 % (94-98) 01/21/21 13:06 ABG Base Excess -3.4 mmol/L (-2.0-3.0) L 01/21/21 13:06 Honorio Test POSITIVE 01/21/21 13:06 VBG pH 7.406 (7.31-7.41) 01/24/21 07:51 Ionized Calcium 1.06 mmol/L (1.15-1.33) L 01/24/21 07:51 O2 Delivery Device NON REBREATHER MASK 01/21/21 13:06 O2 Liters/Min 15.00 LPM 01/21/21 13:06 FiO2 100.00 01/21/21 13:06 Sodium 136 mmol/L (135-145) 01/30/21 14:55 Potassium 4.4 mmol/L (3.5-5.0) 01/30/21 14:55 Chloride 101 mmol/L (101-111) 01/30/21 14:55 Carbon Dioxide 25 mmol/L (21-32) 01/30/21 14:55 Anion Gap 10.0 (6-13) 01/30/21 14:55 BUN 17 mg/dL (6-20) 01/30/21 14:55 Creatinine 1.1 mg/dL (0.6-1.2) 01/30/21 14:55 Estimated GFR (MDRD) 69 (>89) L 01/30/21 14:55 Glucose 87 mg/dL (70-100) 01/30/21 14:55 Lactic Acid 2.0 mmol/L (0.5-2.2) 01/22/21 19:02 Calcium 8.3 mg/dL (8.5-10.3) L 01/30/21 14:55 Phosphorus 3.3 mg/dL (2.5-4.6) 01/24/21 04:26 Magnesium 1.8 mg/dL (1.7-2.8) 01/24/21 04:26 Total Bilirubin 2.1 mg/dL (0.2-1.0) H 01/28/21 05:15 Direct Bilirubin 0.9 mg/dL (0.1-0.5) H 01/23/21 04:35 AST 144 IU/L (10-42) H 01/28/21 05:15 ALT 256 IU/L (10-60) H 01/28/21 05:15 Alkaline Phosphatase 103 IU/L (42-121) 01/28/21 05:15 Troponin I High Sens 234.5 ng/L (2.3-19.7) H* 01/22/21 19:02 B-Natriuretic Peptide 4949.00 pg/mL (5-100) H 01/25/21 07:55 Total Protein 5.2 g/dL (6.7-8.2) L 01/28/21 05:15 Albumin 2.8 g/dL (3.2-5.5) L 01/28/21 05:15 Globulin 2.4 g/dL (2.1-4.2) 01/28/21 05:15 Albumin/Globulin Ratio 1.2 (1.0-2.2) 01/28/21 05:15 TSH 7.65 uIU/mL (0.34-5.60) H 01/23/21 04:35 Nasal Adenovirus (PCR) NOT DETECTED 01/18/21 18:22 Nasal B. parapertussis DNA (PCR) NOT DETECTED 01/18/21 18:22 Nasal Coronavir 229E PCR NOT DETECTED 01/18/21 18:22 Nasal Coronavir HKU1 PCR NOT DETECTED 01/18/21 18:22 Nasal Coronavir NL63 PCR NOT DETECTED 01/18/21 18:22 Nasal Coronavir OC43 PCR NOT DETECTED 01/18/21 18:22 Nasal Enterovir/Rhinovir PCR NOT DETECTED 01/18/21 18:22 Nasal Influenza B PCR NOT DETECTED 01/18/21 18:22 Nasal Influenza A PCR NOT DETECTED 01/18/21 18:22 Nasal Parainfluen 1 PCR NOT DETECTED 01/18/21 18:22 Nasal Parainfluen 2 PCR NOT DETECTED 01/18/21 18:22 Nasal Parainfluen 3 PCR NOT DETECTED 01/18/21 18:22 Nasal Parainfluen 4 PCR NOT DETECTED 01/18/21 18:22 Nasal RSV (PCR) NOT DETECTED 01/18/21 18:22 Nasal Screen MRSA (PCR) NEGATIVE (NEGATIVE) 01/21/21 12:45 Nasal B.pertussis DNA PCR NOT DETECTED 01/18/21 18:22 Nasal C.pneumoniae (PCR) NOT DETECTED 01/18/21 18:22 [place] Human Metapneumo PCR NOT DETECTED 01/18/21 18:22 Nasal M.pneumoniae (PCR) NOT DETECTED 01/18/21 18:22 Nasal SARS-CoV-2 (PCR) NOT DETECTED 01/18/21 18:22 Last Dose Date 01/26/21 01/27/21 06:25 Last Dose Time 1016 01/27/21 06:25 Digoxin 0.2 ng/mL 01/27/21 06:25 Ethyl Alcohol < 5.0 mg/dL 01/18/21 16:51 Hepatitis A IgM Ab NON-REACTIVE (NON-REACTIVE) 01/19/21 06:19 Hep Bs Antigen NON-REACTIVE (NON-REACTIVE) 01/19/21 06:19 Hep B Core IgM Ab NON-REACTIVE (NON-REACTIVE) 01/19/21 06:19 Hepatitis C Antibody REACTIVE (NON-REACTIVE) A 01/19/21 06:19 Hep C Ab Signal/Cutoff 6.50 (<1.00) H 01/19/21 06:19 - Procedures Procedures: Procedures COLONOSCOPY (08/16/13) ABX Reporting Has patient been on IV antibiotics over the past 48 hours?: No Current Medications - Current Medications Current Medications: Active Medications Albuterol (Albuterol 1 Puff) 2 puffs INH Q4HR PRN PRN Reason: Dyspnea Digoxin (Digoxin 125 Mcg Tablet) 125 mcg PO DAILY [facility] Last Admin: 02/07/21 08:15 Dose: 125 mcg Documented by: Furosemide (Furosemide 40 Mg Tablet) 40 mg PO DAILY [facility] Last Admin: 02/07/21 08:15 Dose: 40 mg Documented by: Gabapentin (Gabapentin 300 Mg Capsule) 300 mg PO 0800,1400 PRN PRN Reason: LEG PAIN OR ANXIETY Last Admin: 02/07/21 08:24 Dose: 300 mg Documented by: Gabapentin (Gabapentin 300 Mg Capsule) 600 mg PO QPM [facility] Last Admin: 02/06/21 20:49 Dose: 600 mg Documented by: Heparin Sodium (Beef Lung) (Heparin Flush 50 Units/5 Ml Syringe) 30 - 50 unit IVP PRN PRN PRN Reason: Port Protocol (<24 hours) Last Admin: 02/05/21 20:32 Dose: 150 unit Documented by: Lisinopril (Lisinopril 5 Mg Tablet) 2.5 mg PO DAILY [facility] Last Admin: 02/07/21 08:15 Dose: 2.5 mg Documented by: Metoprolol Succinate (Metoprolol Succinate 50 Mg Tablet) 50 mg PO DAILY [facility] Last Admin: 02/07/21 08:15 Dose: 50 mg Documented by: Morphine Sulfate (Morphine 2 Mg/Ml Carpuject) 1 mg IVP Q4HR PRN PRN Reason: PAIN Last Admin: 02/02/21 14:58 Dose: 1 mg Documented by: Multivitamins (Multivitamin Tablet) 1 tab PO DAILYWM [facility] Last Admin: 02/07/21 08:23 Dose: 1 tab Documented by: Nicotine (Nicotine 14 Mg Patch) 1 patch TOP DAILY [facility] Last Admin: 02/07/21 08:19 Dose: Not Given Documented by: Ondansetron HCl (Ondansetron 4 Mg/2 Ml Vial) 4 mg IVP Q6HR PRN PRN Reason: Nausea / Vomiting Last Admin: 01/19/21 23:45 Dose: 4 mg Documented by: Oxycodone HCl (Oxycodone 5 Mg Tablet) 5 mg PO Q4HR PRN PRN Reason: Pain 5 to 7 Last Admin: 02/07/21 00:10 Dose: 5 mg Documented by: Polyethylene Glycol (Polyethylene Glycol 3350 17 Gm Packet) 17 gm PO DAILY [facility] Last Admin: 02/07/21 08:24 Dose: Not Given Documented by: Sodium Chloride (Sodium Chloride Flush 0.9% 10 Ml Syringe) 10 ml IVP PRN PRN PRN Reason: NEEDED PER PROVIDER ORDERS Last Admin: 02/02/21 15:01 Dose: 10 ml Documented by: Sodium Chloride (Sodium Chloride Flush 0.9% 10 Ml Syringe) 10 ml IVP 0100,0900,1700 [facility] Last Admin: 02/07/21 00:11 Dose: 10 ml Documented by: Sodium Chloride (Sodium Chloride Flush 0.9% 10 Ml Syringe) 20 ml IVP PRN PRN PRN Reason: After Blood Draw Last Admin: 02/02/21 23:53 Dose: 20 ml Documented by: Spironolactone (Spironolactone 25 Mg Tablet) 25 mg PO DAILY [facility] Last Admin: 02/07/21 08:24 Dose: 25 mg Documented by: Thiamine HCl (Thiamine 100 Mg Tablet) 100 mg PO DAILY [facility] Last Admin: 02/07/21 08:24 Dose: 100 mg Documented by: Citalopram [CeleXA] 10 mg ORAL DAILY 09/15/20 Gabapentin [Neurontin] 300 mg PO 0800,1400 PRN 01/19/21 Gabapentin [Neurontin] 600 mg PO QPM 01/19/21 Metoprolol Succinate [Toprol Xl] 25 mg PO DAILY 01/19/21
[2021-02-07] MEDS: GABAPENTIN 300 MG CAPSULE PO SCH (21:06)
[2021-02-08] MEDS: SODIUM CHLORIDE FLUSH 0.9% 10 ML SYRINGE IVP SCH ×3 (00:21→17:11)
[2021-02-08] MEDS: oxyCODONE 5 MG TABLET PO PRN ×2 (05:41→20:07)
[2021-02-08] MEDS: MULTIVITAMIN TABLET PO SCH (08:34)
[2021-02-08] MEDS: THIAMINE 100 MG TABLET PO SCH (08:35)
[2021-02-08] MEDS: DIGOXIN 125 MCG TABLET PO SCH (08:36)
[2021-02-08] MEDS: lisinopriL 5 MG TABLET PO SCH (08:37)
[2021-02-08] MEDS: SPIRONOLACTONE 25 MG TABLET PO SCH (08:38)
[2021-02-08] MEDS: polyethylene glycoL 3350 17 GM PACKET PO SCH (08:40)
[2021-02-08] MEDS: FUROSEMIDE 40 MG TABLET PO SCH (08:40)
[2021-02-08] MEDS: METOPROLOL SUCCINATE 50 MG TABLET PO SCH (08:40)
[2021-02-08] MEDS: GABAPENTIN 300 MG CAPSULE PO PRN (08:41)
[2021-02-08] MEDS: NICOTINE 14 MG PATCH TOP SCH (08:42)
--- NOTE | 2021-02-08 09:18 | PROVIDER PROGRESS NOTE ---
Assessment/Plan - Problem List (1) Acute on chronic systolic and diastolic heart failure, NYHA class 4 Assessment/Plan: 02/08 pt is pleasant, stable and no distress, and know the progress of his hospice d/c plan, and happy to accept if [facility] could accept him. continue consult with social services director for disposition planning for d/c hospice care. 01/31 pt is stable, will continue current care at hospital, continue consult with social services director for placement for hospice care. 02/06 pt has no complaint, continue hospice care after d/c, and consult social services director for placement. stable, eat nearly whole breakfast, pt still present edematous in his legs. ECHO study show EF less 20%. He is agreeable to hospice and we will plan to get him to a SNF on hospice, continue consult with social services director for placement. (2) Cardiogenic shock Impression: Resolved. (3) Peripheral vascular disease stable, pt is no complaints, The goal is now to focus on his comfort. We will continue with medical management alone. (4) COPD (chronic obstructive pulmonary disease) Impression: Not in exacerbation. Continue albuterol inhaler. (5) Paroxysmal atrial fibrillation Impression: stable, His heart rate has varied from the 90s to 100s. We increased his me toprolol two days ago and we will continue to monitor. (6) Hepatitis Impression: stable, continue comfortable care in the hospital (7) ESTEVAN (acute kidney injury) Impression: This has resolved. (8) Hyponatremia Impression: This is resolved. - Current Meds Current Meds: Current Medications Generic Name Dose Route Start Last Admin Trade Name Freq PRN Reason Stop Dose Admin Digoxin 125 mcg 01/23/21 09:00 02/08/21 08:36 Digoxin 125 Mcg Tablet PO 125 mcg DAILY YONATHAN Administration Furosemide 40 mg 01/31/21 09:00 02/08/21 08:40 Furosemide 40 Mg Tablet PO 40 mg DAILY YONATHAN Administration Gabapentin 300 mg 01/31/21 07:44 02/08/21 08:41 Gabapentin 300 Mg Capsule PO 300 mg 0800,1400 PRN Administration LEG PAIN OR ANXIETY Gabapentin 600 mg 01/31/21 21:00 02/07/21 21:06 Gabapentin 300 Mg Capsule PO 600 mg QPM YONATHAN Administration Heparin Sodium (Beef Lung) 30 - 50 unit 01/27/21 09:45 02/05/21 20:32 Heparin Flush 50 Units/5 Ml Syringe IVP 150 unit PRN PRN Administration Port Protocol (<24 hours) Lisinopril 2.5 mg 02/01/21 09:00 02/08/21 08:37 Lisinopril 5 Mg Tablet PO 2.5 mg DAILY YONATHAN Administration Metoprolol Succinate 50 mg 02/03/21 09:00 02/08/21 08:40 Metoprolol Succinate 50 Mg Tablet PO 50 mg DAILY YONATHAN Administration Morphine Sulfate 1 mg 01/18/21 21:45 02/02/21 14:58 Morphine 2 Mg/Ml Carpuject IVP 1 mg Q4HR PRN Administration PAIN Multivitamins 1 tab 01/19/21 08:00 02/08/21 08:34 Multivitamin Tablet PO 1 tab DAILYWM YONATHAN Administration Nicotine 1 patch 02/01/21 18:28 02/08/21 08:42 Nicotine 14 Mg Patch TOP Not Given DAILY YONATAHN Ondansetron HCl 4 mg 01/18/21 18:18 01/19/21 23:45 Ondansetron 4 Mg/2 Ml Vial IVP 4 mg Q6HR PRN Administration Nausea / Vomiting Oxycodone HCl 5 mg 01/18/21 18:18 02/08/21 05:41 Oxycodone 5 Mg Tablet PO 5 mg Q4HR PRN Administration Pain 5 to 7 Polyethylene Glycol 17 gm 01/22/21 09:00 02/08/21 08:40 Polyethylene Glycol 3350 17 Gm Packet PO Not Given DAILY YONATHAN Sodium Chloride 10 ml 01/18/21 18:18 02/02/21 15:01 Sodium Chloride Flush 0.9% 10 Ml Syringe IVP 10 ml PRN PRN Administration NEEDED PER PROVIDER ORDERS Sodium Chloride 10 ml 01/19/21 01:00 02/08/21 00:21 Sodium Chloride Flush 0.9% 10 Ml Syringe IVP 30 ml 0100,0900,1700 YONATHAN Administration Sodium Chloride 20 ml 01/31/21 09:19 02/02/21 23:53 Sodium Chloride Flush 0.9% 10 Ml Syringe IVP 20 ml PRN PRN Administration After Blood Draw Spironolactone 25 mg 01/27/21 09:00 02/08/21 08:38 Spironolactone 25 Mg Tablet PO 25 mg DAILY YONATHAN Administration Thiamine HCl 100 mg 01/29/21 10:30 02/08/21 08:35 Thiamine 100 Mg Tablet PO 100 mg DAILY YONATHAN Administration - Lab Result Fish Bone Diagrams: 01/30/21 14:55 01/30/21 14:55 Subjective - Subjective Patient Reports: Resting Comfortably Objective Vital Signs: Vital Signs - 24 hr 02/07/21 02/08/21 02/08/21 16:05 01:05 08:15 Temperature 36.6 C 36.7 C 36.6 C Heart Rate [ 91 44 L 80 Brachial] Respiratory 16 20 18 Rate Blood Pressure 96/73 96/74 [Left Brachial artery] Blood Pressure 91/66 [Right Brachial artery] O2 Saturation 99 100 99 Oxygen O2 Source Room air I&O (Last 24 Hrs): Intake and Output Totals x24h 02/06/21 02/07/21 02/08/21 23:59 23:59 23:59 Intake Total 1665 1335 540 Output Total 2825 3100 1300 Balance -1160 -1765 -760 General: Alert, Oriented x3, Cooperative, No acute distress HEENT: Atraumatic Neck: Supple Lymphatic: no adenopathy Neuro: Alert, Non Focal, Oriented Times 3 Cardiovascular: Regular rate, Normal S1, Normal S2 Respiratory: Chest non-tender, No respiratory distress Abdomen: Normal bowel sounds, Soft Extremities: Normal pulses - Results Results: Laboratory Results WBC 9.6 x10^3/uL (4.8-10.8) 01/30/21 14:55 RBC 4.04 10^6/uL (4.70-6.10) L 01/30/21 14:55 Hgb 13.0 g/dL (14.0-18.0) L 01/30/21 14:55 Hct 40.3 % (42.0-52.0) L 01/30/21 14:55 MCV 99.8 fL (80.0-94.0) H 01/30/21 14:55 MCH 32.2 pg (27.0-31.0) H 01/30/21 14:55 MCHC 32.3 g/dL (32.0-36.0) 01/30/21 14:55 RDW 14.9 % (12.0-15.0) 01/30/21 14:55 Plt Count 211 10^3/uL (130-450) 01/30/21 14:55 MPV 10.9 fL (7.4-11.4) 01/30/21 14:55 Neut # (Auto) 7.0 10^3/uL (1.5-6.6) H 01/30/21 14:55 Lymph # (Auto) 1.4 10^3/uL (1.5-3.5) L 01/30/21 14:55 Bond # (Auto) 0.9 10^3/uL (0.0-1.0) 01/30/21 14:55 Eos # (Auto) 0.2 10^3/uL (0.0-0.7) 01/30/21 14:55 Baso # (Auto) 0.1 10^3/uL (0.0-0.1) 01/30/21 14:55 Absolute Nucleated RBC 0.00 x10^3/uL 01/30/21 14:55 Total Counted 100 01/24/21 04:26 Band Neuts % (Manual) 1 % (0-10) 01/24/21 04:26 Reactive Lymphs % (Man) 3 % 01/18/21 16:51 Abnorm Lymph % (Manual) 0 % 01/24/21 04:26 Nucleated RBC % 0.0 /100WBC 01/30/21 14:55 Neutrophils # (Manual) 6.9 10^3/uL (1.5-6.6) H 01/24/21 04:26 Lymphocytes # (Manual) 0.5 10^3/uL (1.5-3.5) L 01/24/21 04:26 Monocytes # (Manual) 1.5 10^3/uL (0.0-1.0) H 01/24/21 04:26 Eosinophils # (Manual) 0.0 10^3/uL (0-0.7) 01/24/21 04:26 Basophils # (Manual) 0.0 10^3/uL (0-0.1) 01/24/21 04:26 Differential Comment MANUAL DIFFERENTIAL 01/24/21 04:26 Manual Slide Review Indicated 01/24/21 04:26 WBC Morphology NORMAL APPEARANCE (NORMAL) 01/23/21 08:40 Platelet Estimate DECREASED (<130,000) (NORMAL) 01/24/21 04:26 Platelet Morphology NORMAL APPEARANCE (NORMAL) 01/23/21 08:40 RBC Morph Micro Appear NORMAL APPEARANCE (NORMAL) 01/23/21 08:40 PT 21.2 secs (9.9-12.6) H 01/21/21 14:51 INR 1.9 (0.8-1.2) H 01/21/21 14:51 Bld Gas Analysis Time 1311 01/21/21 13:06 Sample Site RIGHT RADIAL 01/21/21 13:06 ABG pH 7.44 (7.35-7.45) 01/21/21 13:06 ABG pCO2 30 mmHg (34-45) L 01/21/21 13:06 ABG pO2 92 mmHg (80-100) 01/21/21 13:06 ABG HCO3 19.6 mmol/L (22.0-26.0) L 01/21/21 13:06 ABG Total CO2 20.5 MMOL/L (21.0-29.0) L 01/21/21 13:06 ABG O2 Saturation 97 % (94-98) 01/21/21 13:06 ABG Base Excess -3.4 mmol/L (-2.0-3.0) L 01/21/21 13:06 Honorio Test POSITIVE 01/21/21 13:06 VBG pH 7.406 (7.31-7.41) 01/24/21 07:51 Ionized Calcium 1.06 mmol/L (1.15-1.33) L 01/24/21 07:51 O2 Delivery Device NON REBREATHER MASK 01/21/21 13:06 O2 Liters/Min 15.00 LPM 01/21/21 13:06 FiO2 100.00 01/21/21 13:06 Sodium 136 mmol/L (135-145) 01/30/21 14:55 Potassium 4.4 mmol/L (3.5-5.0) 01/30/21 14:55 Chloride 101 mmol/L (101-111) 01/30/21 14:55 Carbon Dioxide 25 mmol/L (21-32) 01/30/21 14:55 Anion Gap 10.0 (6-13) 01/30/21 14:55 BUN 17 mg/dL (6-20) 01/30/21 14:55 Creatinine 1.1 mg/dL (0.6-1.2) 01/30/21 14:55 Estimated GFR (MDRD) 69 (>89) L 01/30/21 14:55 Glucose 87 mg/dL (70-100) 01/30/21 14:55 Lactic Acid 2.0 mmol/L (0.5-2.2) 01/22/21 19:02 Calcium 8.3 mg/dL (8.5-10.3) L 01/30/21 14:55 Phosphorus 3.3 mg/dL (2.5-4.6) 01/24/21 04:26 Magnesium 1.8 mg/dL (1.7-2.8) 01/24/21 04:26 Total Bilirubin 2.1 mg/dL (0.2-1.0) H 01/28/21 05:15 Direct Bilirubin 0.9 mg/dL (0.1-0.5) H 01/23/21 04:35 AST 144 IU/L (10-42) H 01/28/21 05:15 ALT 256 IU/L (10-60) H 01/28/21 05:15 Alkaline Phosphatase 103 IU/L (42-121) 01/28/21 05:15 Troponin I High Sens 234.5 ng/L (2.3-19.7) H* 01/22/21 19:02 B-Natriuretic Peptide 4949.00 pg/mL (5-100) H 01/25/21 07:55 Total Protein 5.2 g/dL (6.7-8.2) L 01/28/21 05:15 Albumin 2.8 g/dL (3.2-5.5) L 01/28/21 05:15 Globulin 2.4 g/dL (2.1-4.2) 01/28/21 05:15 Albumin/Globulin Ratio 1.2 (1.0-2.2) 01/28/21 05:15 TSH 7.65 uIU/mL (0.34-5.60) H 01/23/21 04:35 Nasal Adenovirus (PCR) NOT DETECTED 01/18/21 18:22 Nasal B. parapertussis DNA (PCR) NOT DETECTED 01/18/21 18:22 Nasal Coronavir 229E PCR NOT DETECTED 01/18/21 18:22 Nasal Coronavir HKU1 PCR NOT DETECTED 01/18/21 18:22 Nasal Coronavir NL63 PCR NOT DETECTED 01/18/21 18:22 Nasal Coronavir OC43 PCR NOT DETECTED 01/18/21 18:22 Nasal Enterovir/Rhinovir PCR NOT DETECTED 01/18/21 18:22 Nasal Influenza B PCR NOT DETECTED 01/18/21 18:22 Nasal Influenza A PCR NOT DETECTED 01/18/21 18:22 Nasal Parainfluen 1 PCR NOT DETECTED 01/18/21 18:22 Nasal Parainfluen 2 PCR NOT DETECTED 01/18/21 18:22 Nasal Parainfluen 3 PCR NOT DETECTED 01/18/21 18:22 Nasal Parainfluen 4 PCR NOT DETECTED 01/18/21 18:22 Nasal RSV (PCR) NOT DETECTED 01/18/21 18:22 Nasal Screen MRSA (PCR) NEGATIVE (NEGATIVE) 01/21/21 12:45 Nasal B.pertussis DNA PCR NOT DETECTED 01/18/21 18:22 Nasal C.pneumoniae (PCR) NOT DETECTED 01/18/21 18:22 [place] Human Metapneumo PCR NOT DETECTED 01/18/21 18:22 Nasal M.pneumoniae (PCR) NOT DETECTED 01/18/21 18:22 Nasal SARS-CoV-2 (PCR) NOT DETECTED 01/18/21 18:22 Last Dose Date 01/26/21 01/27/21 06:25 Last Dose Time 1016 01/27/21 06:25 Digoxin 0.2 ng/mL 01/27/21 06:25 Ethyl Alcohol < 5.0 mg/dL 01/18/21 16:51 Hepatitis A IgM Ab NON-REACTIVE (NON-REACTIVE) 01/19/21 06:19 Hep Bs Antigen NON-REACTIVE (NON-REACTIVE) 01/19/21 06:19 Hep B Core IgM Ab NON-REACTIVE (NON-REACTIVE) 01/19/21 06:19 Hepatitis C Antibody REACTIVE (NON-REACTIVE) A 01/19/21 06:19 Hep C Ab Signal/Cutoff 6.50 (<1.00) H 01/19/21 06:19 - Procedures Procedures: Procedures COLONOSCOPY (08/16/13) Current Medications - Current Medications Current Medications: Active Medications Albuterol (Albuterol 1 Puff) 2 puffs INH Q4HR PRN PRN Reason: Dyspnea Digoxin (Digoxin 125 Mcg Tablet) 125 mcg PO DAILY [facility] Last Admin: 02/08/21 08:36 Dose: 125 mcg Documented by: Furosemide (Furosemide 40 Mg Tablet) 40 mg PO DAILY [facility] Last Admin: 02/08/21 08:40 Dose: 40 mg Documented by: Gabapentin (Gabapentin 300 Mg Capsule) 300 mg PO 0800,1400 PRN PRN Reason: LEG PAIN OR ANXIETY Last Admin: 02/08/21 08:41 Dose: 300 mg Documented by: Gabapentin (Gabapentin 300 Mg Capsule) 600 mg PO QPM [facility] Last Admin: 02/07/21 21:06 Dose: 600 mg Documented by: Heparin Sodium (Beef Lung) (Heparin Flush 50 Units/5 Ml Syringe) 30 - 50 unit IVP PRN PRN PRN Reason: Port Protocol (<24 hours) Last Admin: 02/05/21 20:32 Dose: 150 unit Documented by: Lisinopril (Lisinopril 5 Mg Tablet) 2.5 mg PO DAILY [facility] Last Admin: 02/08/21 08:37 Dose: 2.5 mg Documented by: Metoprolol Succinate (Metoprolol Succinate 50 Mg Tablet) 50 mg PO DAILY [facility] Last Admin: 02/08/21 08:40 Dose: 50 mg Documented by: Morphine Sulfate (Morphine 2 Mg/Ml Carpuject) 1 mg IVP Q4HR PRN PRN Reason: PAIN Last Admin: 02/02/21 14:58 Dose: 1 mg Documented by: Multivitamins (Multivitamin Tablet) 1 tab PO DAILYWM [facility] Last Admin: 02/08/21 08:34 Dose: 1 tab Documented by: Nicotine (Nicotine 14 Mg Patch) 1 patch TOP DAILY [facility] Last Admin: 02/08/21 08:42 Dose: Not Given Documented by: Ondansetron HCl (Ondansetron 4 Mg/2 Ml Vial) 4 mg IVP Q6HR PRN PRN Reason: Nausea / Vomiting Last Admin: 01/19/21 23:45 Dose: 4 mg Documented by: Oxycodone HCl (Oxycodone 5 Mg Tablet) 5 mg PO Q4HR PRN PRN Reason: Pain 5 to 7 Last Admin: 02/08/21 05:41 Dose: 5 mg Documented by: Polyethylene Glycol (Polyethylene Glycol 3350 17 Gm Packet) 17 gm PO DAILY [facility] Last Admin: 02/08/21 08:40 Dose: Not Given Documented by: Sodium Chloride (Sodium Chloride Flush 0.9% 10 Ml Syringe) 10 ml IVP PRN PRN PRN Reason: NEEDED PER PROVIDER ORDERS Last Admin: 02/02/21 15:01 Dose: 10 ml Documented by: Sodium Chloride (Sodium Chloride Flush 0.9% 10 Ml Syringe) 10 ml IVP 0100,0900,1700 [facility] Last Admin: 02/08/21 00:21 Dose: 30 ml Documented by: Sodium Chloride (Sodium Chloride Flush 0.9% 10 Ml Syringe) 20 ml IVP PRN PRN PRN Reason: After Blood Draw Last Admin: 02/02/21 23:53 Dose: 20 ml Documented by: Spironolactone (Spironolactone 25 Mg Tablet) 25 mg PO DAILY [facility] Last Admin: 02/08/21 08:38 Dose: 25 mg Documented by: Thiamine HCl (Thiamine 100 Mg Tablet) 100 mg PO DAILY [facility] Last Admin: 02/08/21 08:35 Dose: 100 mg Documented by: Citalopram [CeleXA] 10 mg ORAL DAILY 09/15/20 Gabapentin [Neurontin] 300 mg PO 0800,1400 PRN 01/19/21 Gabapentin [Neurontin] 600 mg PO QPM 01/19/21 Metoprolol Succinate [Toprol Xl] 25 mg PO DAILY 01/19/21
[2021-02-08] MEDS: SODIUM CHLORIDE FLUSH 0.9% 10 ML SYRINGE IVP PRN (15:01)
[2021-02-08] MEDS: GABAPENTIN 300 MG CAPSULE PO SCH (20:37)
[2021-02-09] MEDS: SODIUM CHLORIDE FLUSH 0.9% 10 ML SYRINGE IVP SCH ×3 (06:04→15:47)
[2021-02-09] MEDS: MULTIVITAMIN TABLET PO SCH (08:42)
[2021-02-09] MEDS: polyethylene glycoL 3350 17 GM PACKET PO SCH (08:43)
[2021-02-09] MEDS: SPIRONOLACTONE 25 MG TABLET PO SCH (08:43)
[2021-02-09] MEDS: FUROSEMIDE 40 MG TABLET PO SCH (08:43)
[2021-02-09] MEDS: METOPROLOL SUCCINATE 50 MG TABLET PO SCH (08:43)
[2021-02-09] MEDS: lisinopriL 5 MG TABLET PO SCH (08:43)
[2021-02-09] MEDS: THIAMINE 100 MG TABLET PO SCH (08:43)
[2021-02-09] MEDS: DIGOXIN 125 MCG TABLET PO SCH (08:43)
[2021-02-09] MEDS: NICOTINE 14 MG PATCH TOP SCH (08:45)
[2021-02-09] MEDS: SODIUM CHLORIDE FLUSH 0.9% 10 ML SYRINGE IVP PRN (08:47)
[2021-02-09] MEDS: oxyCODONE 5 MG TABLET PO PRN ×2 (08:51→15:48)
--- NOTE | 2021-02-09 09:05 | PROVIDER PROGRESS NOTE ---
Subjective - Prog Note Date Prog Note Date: 02/09/21 - Subjective Pt reports feeling: Improved Subjective: Pt reports feeling "fine" this morning, no nausea, chills or shortness of breath. Is complaining of bilateral foot pain related to his neuropathy but reports this is not new and unchanged. Stayed up to watch the 's [employer] at the [employer] on TV last night but then slept well. Hoping to DC to [facility] this week if they will take him. Denies any complaints or concerns today. Has been up ambulating in the hallway. Objective - Vital Signs/Intake & Output Reviewed Vital Signs: Yes Vital Signs: Vital Signs x48h Temp Pulse Resp BP Pulse Ox 02/09/21 08:39 36.6 C 95 16 91/63 97 Intake & Output: Intake & Output 02/06/21 02/07/21 02/08/21 02/09/21 23:59 23:59 23:59 23:59 Intake Total 1665 1335 880 360 Output Total 2825 3100 2950 925 Balance -1160 -1765 -2070 -565 - Objective General Appearance: positive: No acute distress, Alert Eyes Bilateral: positive: Normal inspection, PERRL, No lid inflammation ENT: positive: ENT inspection nml, Pharynx nml, No signs of dehydration Respiratory: positive: Chest non-tender, No respiratory distress Cardiovascular: positive: Irregularly irregular Peripheral Pulses: 2+ Dorsalis pedis (R), 2+ Dorsalis pedis (L) Abdomen: positive: Non-tender, No organomegaly, Nml bowel sounds, No distention Skin: positive: Dry, Other (Feet are dry and peeling, small hemorrhagic blisters noted on the distal left 3rd toe and distral right 2nd toe) Extremities: positive: Non-tender, Full ROM, Nml appearance, No pedal edema Neurologic/Psychiatric: positive: Oriented x3 - Lab Results Fish Bones: 01/30/21 14:55 01/30/21 14:55 ABX Reporting Has patient been on IV antibiotics over the past 48 hours?: No Assessment/Plan - Problem List (1) Acute on chronic systolic and diastolic heart failure, NYHA class 4 Impression: Stable. No acute distress today, no peripheral edema or dyspnea. He is hopeful he will be able to discharge to [facility] later this week if they accept him. Continue medical management. (2) Peripheral vascular disease Impression: Stable. DP pulses palpable, no lower extremity or pedal edema. Skin is dusky and cool, peeling on the plantar feet. C/o neuropathic pain in his feet, unchanged from baseline. Continue medical management. (3) COPD (chronic obstructive pulmonary disease) with emphysema Impression: Stable, no exacerbation currently. Denies dyspnea. Continue medical management. Qualifiers: Emphysema type: unspecified Qualified Code(s): J43.9 - Emphysema, unspecified (4) Paroxysmal atrial fibrillation Impression: Stable. HR has been 80s-90s. Continue current medication. (5) Hepatitis Impression: Stable. Continuing current medical management/comfort care. (6) ESTEVAN (acute kidney injury) Impression: Resolved. (7) Cardiogenic shock Impression: Resolved. (8) Hyponatremia Impression: Resolved.
[2021-02-09] MEDS: GABAPENTIN 300 MG CAPSULE PO SCH (22:24)
[2021-02-10] MEDS: SODIUM CHLORIDE FLUSH 0.9% 10 ML SYRINGE IVP SCH ×3 (00:28→16:03)
[2021-02-10] MEDS: SODIUM CHLORIDE FLUSH 0.9% 10 ML SYRINGE IVP PRN ×2 (00:28→08:43)
[2021-02-10] MEDS: FUROSEMIDE 40 MG TABLET PO SCH (08:42)
[2021-02-10] MEDS: DIGOXIN 125 MCG TABLET PO SCH (08:42)
[2021-02-10] MEDS: METOPROLOL SUCCINATE 50 MG TABLET PO SCH (08:42)
[2021-02-10] MEDS: oxyCODONE 5 MG TABLET PO PRN ×2 (08:42→16:52)
[2021-02-10] MEDS: SPIRONOLACTONE 25 MG TABLET PO SCH (08:42)
[2021-02-10] MEDS: MULTIVITAMIN TABLET PO SCH (08:42)
[2021-02-10] MEDS: polyethylene glycoL 3350 17 GM PACKET PO SCH (08:43)
[2021-02-10] MEDS: THIAMINE 100 MG TABLET PO SCH (08:43)
[2021-02-10] MEDS: lisinopriL 5 MG TABLET PO SCH (08:43)
[2021-02-10] MEDS: NICOTINE 14 MG PATCH TOP SCH (08:45)
--- NOTE | 2021-02-10 12:55 | PROVIDER PROGRESS NOTE ---
Subjective - Prog Note Date Prog Note Date: 02/10/21 - Subjective Pt reports feeling: No change Subjective: Pt reports he is feeling fine and looking forward to finding out if [facility] will be accepting him tomorrow. Denies pain, nausea, constipation or other concerns. Slept three hours overnight due to "watching late night TV". Objective - Vital Signs/Intake & Output Reviewed Vital Signs: Yes Vital Signs: Vital Signs x48h Temp Pulse Resp BP Pulse Ox 02/10/21 08:14 36.7 C 110 H 14 100/79 98 Intake & Output: Intake & Output 02/07/21 02/08/21 02/09/21 02/10/21 23:59 23:59 23:59 23:59 Intake Total 9997 463 9068 560 Output Total 3100 2950 2200 1525 Balance -1765 -2070 -750 -965 - Objective General Appearance: positive: No acute distress, Alert Eyes Bilateral: positive: Normal inspection, PERRL ENT: positive: ENT inspection nml, No signs of dehydration Neck: positive: Nml inspection Respiratory: positive: Chest non-tender, No respiratory distress, Breath sounds nml Cardiovascular: positive: Regular rate & rhythm Peripheral Pulses: 2+ Dorsalis pedis (R), 2+ Dorsalis pedis (L) Abdomen: positive: Non-tender, No organomegaly, Nml bowel sounds, No distention Skin: positive: Color nml Extremities: positive: Non-tender, Full ROM, Nml appearance Neurologic/Psychiatric: positive: Oriented x3 - Lab Results Fish Bones: 01/30/21 14:55 01/30/21 14:55 ABX Reporting Has patient been on IV antibiotics over the past 48 hours?: No Assessment/Plan - Problem List (1) Acute on chronic systolic and diastolic heart failure, NYHA class 4 Impression: Stable. No acute distress today, no peripheral edema or dyspnea. He is hopeful he will be able to discharge to [facility] later this week if they accept him. Continue medical management. (2) Peripheral vascular disease Impression: Stable. DP pulses palpable, no lower extremity or pedal edema. Skin is dusky and cool, peeling on the plantar feet. C/o neuropathic pain in his feet, unchanged from baseline. Continue medical management. (3) COPD (chronic obstructive pulmonary disease) with emphysema Impression: Stable, no exacerbation currently. Denies dyspnea. Continue medical management. Qualifiers: Emphysema type: unspecified Qualified Code(s): J43.9 - Emphysema, unspecified (4) Paroxysmal atrial fibrillation Impression: Stable. HR has been 90s-low 100s. Continue current medication. (5) Hepatitis Impression: Stable. Continuing current medical management/comfort care. (6) ESTEVAN (acute kidney injury) Impression: Resolved. (7) Cardiogenic shock Impression: Resolved. (8) Hyponatremia Impression: Resolved.
[2021-02-10] MEDS: GABAPENTIN 300 MG CAPSULE PO SCH (21:12)
[2021-02-11] MEDS: SODIUM CHLORIDE FLUSH 0.9% 10 ML SYRINGE IVP SCH ×3 (00:54→21:41)
[2021-02-11] MEDS: MULTIVITAMIN TABLET PO SCH (08:52)
[2021-02-11] MEDS: THIAMINE 100 MG TABLET PO SCH (09:58)
[2021-02-11] MEDS: SPIRONOLACTONE 25 MG TABLET PO SCH (09:58)
[2021-02-11] MEDS: DIGOXIN 125 MCG TABLET PO SCH (09:58)
[2021-02-11] MEDS: FUROSEMIDE 40 MG TABLET PO SCH (09:58)
[2021-02-11] MEDS: METOPROLOL SUCCINATE 50 MG TABLET PO SCH (09:59)
[2021-02-11] MEDS: lisinopriL 5 MG TABLET PO SCH (09:59)
[2021-02-11] MEDS: polyethylene glycoL 3350 17 GM PACKET PO SCH (10:03)
[2021-02-11] MEDS: NICOTINE 14 MG PATCH TOP SCH (10:03)
[2021-02-11] MEDS: oxyCODONE 5 MG TABLET PO PRN (10:08)
--- NOTE | 2021-02-11 16:12 | PROVIDER PROGRESS NOTE ---
Assessment/Plan - Problem List (1) Acute on chronic systolic and diastolic heart failure, NYHA class 4 Assessment/Plan: Stable. No acute distress today, no peripheral edema or dyspnea. He is hopeful he will be able to discharge to [facility] later this week if they accept him. Continue medical management. (2) Peripheral vascular disease Impression: Stable. DP pulses palpable, no lower extremity or pedal edema. Skin is dusky and cool, peeling on the plantar feet. C/o neuropathic pain in his feet, unchanged from baseline. Continue medical management. (3) COPD (chronic obstructive pulmonary disease) with emphysema Impression: Stable, no exacerbation currently. Denies dyspnea. Continue medical manageme nt. Qualifiers: Emphysema type: unspecified Qualified Code(s): J43.9 - Emphysema, unspecified (4) Paroxysmal atrial fibrillation Impression: Stable. HR has been 90s-low 100s. Continue current medication. (5) Hepatitis Impression: Stable. Continuing current medical management/comfort care. (6) ESTEVAN (acute kidney injury) Impression: Resolved. (7) Cardiogenic shock Impression: Resolved. (8) Hyponatremia Impression: Resolved. - Current Meds Current Meds: Current Medications Generic Name Dose Route Start Last Admin Trade Name Freq PRN Reason Stop Dose Admin Digoxin 125 mcg 01/23/21 09:00 02/11/21 09:58 Digoxin 125 Mcg Tablet PO 125 mcg DAILY YONATHAN Administration Furosemide 40 mg 01/31/21 09:00 02/11/21 09:58 Furosemide 40 Mg Tablet PO 40 mg DAILY YONATHAN Administration Gabapentin 300 mg 01/31/21 07:44 02/08/21 08:41 Gabapentin 300 Mg Capsule PO 300 mg 0800,1400 PRN Administration LEG PAIN OR ANXIETY Gabapentin 600 mg 01/31/21 21:00 02/10/21 21:12 Gabapentin 300 Mg Capsule PO 600 mg QPM YONATHAN Administration Heparin Sodium (Beef Lung) 30 - 50 unit 01/27/21 09:45 02/09/21 15:47 Heparin Flush 50 Units/5 Ml Syringe IVP 150 unit PRN PRN Administration Port Protocol (<24 hours) Lisinopril 2.5 mg 02/01/21 09:00 02/11/21 09:59 Lisinopril 5 Mg Tablet PO 2.5 mg DAILY YONATHAN Administration Metoprolol Succinate 50 mg 02/03/21 09:00 02/11/21 09:59 Metoprolol Succinate 50 Mg Tablet PO 50 mg DAILY YONATHAN Administration Morphine Sulfate 1 mg 01/18/21 21:45 02/02/21 14:58 Morphine 2 Mg/Ml Carpuject IVP 1 mg Q4HR PRN Administration PAIN Multivitamins 1 tab 01/19/21 08:00 02/11/21 08:52 Multivitamin Tablet PO 1 tab DAILYWM YONATHAN Administration Nicotine 1 patch 02/01/21 18:28 02/11/21 10:03 Nicotine 14 Mg Patch TOP Not Given DAILY YONATHAN Ondansetron HCl 4 mg 01/18/21 18:18 01/19/21 23:45 Ondansetron 4 Mg/2 Ml Vial IVP 4 mg Q6HR PRN Administration Nausea / Vomiting Oxycodone HCl 5 mg 01/18/21 18:18 02/11/21 10:08 Oxycodone 5 Mg Tablet PO 5 mg Q4HR PRN Administration Pain 5 to 7 Polyethylene Glycol 17 gm 01/22/21 09:00 02/11/21 10:03 Polyethylene Glycol 3350 17 Gm Packet PO Not Given DAILY YONATHAN Sodium Chloride 10 ml 01/18/21 18:18 02/10/21 08:43 Sodium Chloride Flush 0.9% 10 Ml Syringe IVP 10 ml PRN PRN Administration NEEDED PER PROVIDER ORDERS Sodium Chloride 10 ml 01/19/21 01:00 02/11/21 15:51 Sodium Chloride Flush 0.9% 10 Ml Syringe IVP Not Given 0100,0900,1700 YONATHAN Sodium Chloride 20 ml 01/31/21 09:19 02/02/21 23:53 Sodium Chloride Flush 0.9% 10 Ml Syringe IVP 20 ml PRN PRN Administration After Blood Draw Spironolactone 25 mg 01/27/21 09:00 02/11/21 09:58 Spironolactone 25 Mg Tablet PO 25 mg DAILY YONATHAN Administration Thiamine HCl 100 mg 01/29/21 10:30 02/11/21 09:58 Thiamine 100 Mg Tablet PO 100 mg DAILY YONATHAN Administration - Lab Result Fish Bone Diagrams: 01/30/21 14:55 01/30/21 14:55 Subjective - Subjective Patient Reports: Other (Resting comfortably in bed. Denies any complains. Lower extremity redness and edema is significantly improved.) Objective Vital Signs: Vital Signs - 24 hr 02/11/21 02/11/21 00:19 08:10 Temperature 36.3 C L 36.7 C Heart Rate [ 75 Brachial] Heart Rate [ 100 Radial] Respiratory 18 20 Rate Blood Pressure 102/78 [Left Brachial artery] Blood Pressure 99/63 [Right Brachial artery] O2 Saturation 100 98 Oxygen O2 Source Room air I&O (Last 24 Hrs): Intake and Output Totals x24h 02/09/21 02/10/21 02/11/21 23:59 23:59 23:59 Intake Total 1450 1520 360 Output Total 2200 2975 400 Balance -750 -1455 -40 General: Alert, Oriented x3, No acute distress HEENT: PERRLA, EOMI Neck: Supple, No JVD Neuro: Alert, Oriented Times 3 Cardiovascular: Regular rate Respiratory: Chest non-tender, No respiratory distress, Breath sounds nml Abdomen: Normal bowel sounds, Soft, No tenderness, No masses Extremities: No clubbing, No cyanosis, Other (Trace to +1 edema) - Results Results: Laboratory Results WBC 9.6 x10^3/uL (4.8-10.8) 01/30/21 14:55 RBC 4.04 10^6/uL (4.70-6.10) L 01/30/21 14:55 Hgb 13.0 g/dL (14.0-18.0) L 01/30/21 14:55 Hct 40.3 % (42.0-52.0) L 01/30/21 14:55 MCV 99.8 fL (80.0-94.0) H 01/30/21 14:55 MCH 32.2 pg (27.0-31.0) H 01/30/21 14:55 MCHC 32.3 g/dL (32.0-36.0) 01/30/21 14:55 RDW 14.9 % (12.0-15.0) 01/30/21 14:55 Plt Count 211 10^3/uL (130-450) 01/30/21 14:55 MPV 10.9 fL (7.4-11.4) 01/30/21 14:55 Neut # (Auto) 7.0 10^3/uL (1.5-6.6) H 01/30/21 14:55 Lymph # (Auto) 1.4 10^3/uL (1.5-3.5) L 01/30/21 14:55 [place] # (Auto) 0.9 10^3/uL (0.0-1.0) 01/30/21 14:55 Eos # (Auto) 0.2 10^3/uL (0.0-0.7) 01/30/21 14:55 Baso # (Auto) 0.1 10^3/uL (0.0-0.1) 01/30/21 14:55 Absolute Nucleated RBC 0.00 x10^3/uL 01/30/21 14:55 Total Counted 100 01/24/21 04:26 Band Neuts % (Manual) 1 % (0-10) 01/24/21 04:26 Reactive Lymphs % (Man) 3 % 01/18/21 16:51 Abnorm Lymph % (Manual) 0 % 01/24/21 04:26 Nucleated RBC % 0.0 /100WBC 01/30/21 14:55 Neutrophils # (Manual) 6.9 10^3/uL (1.5-6.6) H 01/24/21 04:26 Lymphocytes # (Manual) 0.5 10^3/uL (1.5-3.5) L 01/24/21 04:26 Monocytes # (Manual) 1.5 10^3/uL (0.0-1.0) H 01/24/21 04:26 Eosinophils # (Manual) 0.0 10^3/uL (0-0.7) 01/24/21 04:26 Basophils # (Manual) 0.0 10^3/uL (0-0.1) 01/24/21 04:26 Differential Comment MANUAL DIFFERENTIAL 01/24/21 04:26 Manual Slide Review Indicated 01/24/21 04:26 WBC Morphology NORMAL APPEARANCE (NORMAL) 01/23/21 08:40 Platelet Estimate DECREASED (<130,000) (NORMAL) 01/24/21 04:26 Platelet Morphology NORMAL APPEARANCE (NORMAL) 01/23/21 08:40 RBC Morph Micro Appear NORMAL APPEARANCE (NORMAL) 01/23/21 08:40 PT 21.2 secs (9.9-12.6) H 01/21/21 14:51 INR 1.9 (0.8-1.2) H 01/21/21 14:51 Bld Gas Analysis Time 1311 01/21/21 13:06 Sample Site RIGHT RADIAL 01/21/21 13:06 ABG pH 7.44 (7.35-7.45) 01/21/21 13:06 ABG pCO2 30 mmHg (34-45) L 01/21/21 13:06 ABG pO2 92 mmHg (80-100) 01/21/21 13:06 ABG HCO3 19.6 mmol/L (22.0-26.0) L 01/21/21 13:06 ABG Total CO2 20.5 MMOL/L (21.0-29.0) L 01/21/21 13:06 ABG O2 Saturation 97 % (94-98) 01/21/21 13:06 ABG Base Excess -3.4 mmol/L (-2.0-3.0) L 01/21/21 13:06 Honorio Test POSITIVE 01/21/21 13:06 VBG pH 7.406 (7.31-7.41) 01/24/21 07:51 Ionized Calcium 1.06 mmol/L (1.15-1.33) L 01/24/21 07:51 O2 Delivery Device NON REBREATHER MASK 01/21/21 13:06 O2 Liters/Min 15.00 LPM 01/21/21 13:06 FiO2 100.00 01/21/21 13:06 Sodium 136 mmol/L (135-145) 01/30/21 14:55 Potassium 4.4 mmol/L (3.5-5.0) 01/30/21 14:55 Chloride 101 mmol/L (101-111) 01/30/21 14:55 Carbon Dioxide 25 mmol/L (21-32) 01/30/21 14:55 Anion Gap 10.0 (6-13) 01/30/21 14:55 BUN 17 mg/dL (6-20) 01/30/21 14:55 Creatinine 1.1 mg/dL (0.6-1.2) 01/30/21 14:55 Estimated GFR (MDRD) 69 (>89) L 01/30/21 14:55 Glucose 87 mg/dL (70-100) 01/30/21 14:55 Lactic Acid 2.0 mmol/L (0.5-2.2) 01/22/21 19:02 Calcium 8.3 mg/dL (8.5-10.3) L 01/30/21 14:55 Phosphorus 3.3 mg/dL (2.5-4.6) 01/24/21 04:26 Magnesium 1.8 mg/dL (1.7-2.8) 01/24/21 04:26 Total Bilirubin 2.1 mg/dL (0.2-1.0) H 01/28/21 05:15 Direct Bilirubin 0.9 mg/dL (0.1-0.5) H 01/23/21 04:35 AST 144 IU/L (10-42) H 01/28/21 05:15 ALT 256 IU/L (10-60) H 01/28/21 05:15 Alkaline Phosphatase 103 IU/L (42-121) 01/28/21 05:15 Troponin I High Sens 234.5 ng/L (2.3-19.7) H* 01/22/21 19:02 B-Natriuretic Peptide 4949.00 pg/mL (5-100) H 01/25/21 07:55 Total Protein 5.2 g/dL (6.7-8.2) L 01/28/21 05:15 Albumin 2.8 g/dL (3.2-5.5) L 01/28/21 05:15 Globulin 2.4 g/dL (2.1-4.2) 01/28/21 05:15 Albumin/Globulin Ratio 1.2 (1.0-2.2) 01/28/21 05:15 TSH 7.65 uIU/mL (0.34-5.60) H 01/23/21 04:35 Nasal Adenovirus (PCR) NOT DETECTED 01/18/21 18:22 Nasal B. parapertussis DNA (PCR) NOT DETECTED 01/18/21 18:22 Nasal Coronavir 229E PCR NOT DETECTED 01/18/21 18:22 Nasal Coronavir HKU1 PCR NOT DETECTED 01/18/21 18:22 Nasal Coronavir NL63 PCR NOT DETECTED 01/18/21 18:22 Nasal Coronavir OC43 PCR NOT DETECTED 01/18/21 18:22 Nasal Enterovir/Rhinovir PCR NOT DETECTED 01/18/21 18:22 Nasal Influenza B PCR NOT DETECTED 01/18/21 18:22 Nasal Influenza A PCR NOT DETECTED 01/18/21 18:22 Nasal Parainfluen 1 PCR NOT DETECTED 01/18/21 18:22 Nasal Parainfluen 2 PCR NOT DETECTED 01/18/21 18:22 Nasal Parainfluen 3 PCR NOT DETECTED 01/18/21 18:22 Nasal Parainfluen 4 PCR NOT DETECTED 01/18/21 18:22 Nasal RSV (PCR) NOT DETECTED 01/18/21 18:22 Nasal Screen MRSA (PCR) NEGATIVE (NEGATIVE) 01/21/21 12:45 Nasal B.pertussis DNA PCR NOT DETECTED 01/18/21 18:22 Nasal C.pneumoniae (PCR) NOT DETECTED 01/18/21 18:22 [place] Human Metapneumo PCR NOT DETECTED 01/18/21 18:22 Nasal M.pneumoniae (PCR) NOT DETECTED 01/18/21 18:22 Nasal SARS-CoV-2 (PCR) NOT DETECTED 01/18/21 18:22 Last Dose Date 01/26/21 01/27/21 06:25 Last Dose Time 1016 01/27/21 06:25 Digoxin 0.2 ng/mL 01/27/21 06:25 Ethyl Alcohol < 5.0 mg/dL 01/18/21 16:51 Hepatitis A IgM Ab NON-REACTIVE (NON-REACTIVE) 01/19/21 06:19 Hep Bs Antigen NON-REACTIVE (NON-REACTIVE) 01/19/21 06:19 Hep B Core IgM Ab NON-REACTIVE (NON-REACTIVE) 01/19/21 06:19 Hepatitis C Antibody REACTIVE (NON-REACTIVE) A 01/19/21 06:19 Hep C Ab Signal/Cutoff 6.50 (<1.00) H 01/19/21 06:19 - Procedures Procedures: Procedures COLONOSCOPY (08/16/13) ABX Reporting Has patient been on IV antibiotics over the past 48 hours?: No
[2021-02-11] MEDS: GABAPENTIN 300 MG CAPSULE PO SCH (21:41)
[2021-02-12] MEDS: oxyCODONE 5 MG TABLET PO PRN ×4 (00:03→23:53)
[2021-02-12] MEDS: SODIUM CHLORIDE FLUSH 0.9% 10 ML SYRINGE IVP SCH ×4 (00:09→23:54)
[2021-02-12] MEDS: SODIUM CHLORIDE FLUSH 0.9% 10 ML SYRINGE IVP PRN ×6 (00:09→23:54)
[2021-02-12] MEDS: MULTIVITAMIN TABLET PO SCH (07:59)
[2021-02-12] MEDS: THIAMINE 100 MG TABLET PO SCH (09:31)
[2021-02-12] MEDS: SPIRONOLACTONE 25 MG TABLET PO SCH (09:31)
[2021-02-12] MEDS: DIGOXIN 125 MCG TABLET PO SCH (09:31)
[2021-02-12] MEDS: lisinopriL 5 MG TABLET PO SCH (09:32)
[2021-02-12] MEDS: polyethylene glycoL 3350 17 GM PACKET PO SCH (09:33)
[2021-02-12] MEDS: NICOTINE 14 MG PATCH TOP SCH (09:33)
[2021-02-12] MEDS: FUROSEMIDE 40 MG TABLET PO SCH (09:33)
[2021-02-12] MEDS: METOPROLOL SUCCINATE 50 MG TABLET PO SCH (09:34)
--- NOTE | 2021-02-12 11:46 | PROVIDER PROGRESS NOTE ---
Assessment/Plan - Problem List (1) Acute on chronic systolic and diastolic heart failure, NYHA class 4 Assessment/Plan: 02/12 pt is stable, he has no complaints. pending on placement (2)encounter of hospice care pt chose for hospice care. pt has hx of end stage of heart failure, COPD, hepatitis, homeless living status. hospice care will followup with pt after d/c from hospital. - Current Meds Current Meds: Current Medications Generic Name Dose Route Start Last Admin Trade Name Freq PRN Reason Stop Dose Admin Digoxin 125 mcg 01/23/21 09:00 02/12/21 09:31 Digoxin 125 Mcg Tablet PO 125 mcg DAILY YONATHAN Administration Furosemide 40 mg 01/31/21 09:00 02/12/21 09:33 Furosemide 40 Mg Tablet PO 40 mg DAILY YONATHAN Administration Gabapentin 300 mg 01/31/21 07:44 02/08/21 08:41 Gabapentin 300 Mg Capsule PO 300 mg 0800,1400 PRN Administration LEG PAIN OR ANXIETY Gabapentin 600 mg 01/31/21 21:00 02/11/21 21:41 Gabapentin 300 Mg Capsule PO 600 mg QPM YONATHAN Administration Heparin Sodium (Beef Lung) 30 - 50 unit 01/27/21 09:45 02/11/21 21:42 Heparin Flush 50 Units/5 Ml Syringe IVP 90 unit PRN PRN Administration Port Protocol (<24 hours) Lisinopril 2.5 mg 02/01/21 09:00 02/12/21 09:32 Lisinopril 5 Mg Tablet PO 2.5 mg DAILY YONATHAN Administration Metoprolol Succinate 50 mg 02/03/21 09:00 02/12/21 09:34 Metoprolol Succinate 50 Mg Tablet PO Not Given DAILY YONATHAN Morphine Sulfate 1 mg 01/18/21 21:45 02/02/21 14:58 Morphine 2 Mg/Ml Carpuject IVP 1 mg Q4HR PRN Administration PAIN Multivitamins 1 tab 01/19/21 08:00 02/12/21 07:59 Multivitamin Tablet PO 1 tab DAILYWM YONATHAN Administration Nicotine 1 patch 02/01/21 18:28 02/12/21 09:33 Nicotine 14 Mg Patch TOP Not Given DAILY YONATHAN Ondansetron HCl 4 mg 01/18/21 18:18 01/19/21 23:45 Ondansetron 4 Mg/2 Ml Vial IVP 4 mg Q6HR PRN Administration Nausea / Vomiting Oxycodone HCl 5 mg 01/18/21 18:18 02/12/21 09:32 Oxycodone 5 Mg Tablet PO 5 mg Q4HR PRN Administration Pain 5 to 7 Polyethylene Glycol 17 gm 01/22/21 09:00 02/12/21 09:33 Polyethylene Glycol 3350 17 Gm Packet PO Not Given DAILY YONATHAN Sodium Chloride 10 ml 01/18/21 18:18 02/10/21 08:43 Sodium Chloride Flush 0.9% 10 Ml Syringe IVP 10 ml PRN PRN Administration NEEDED PER PROVIDER ORDERS Sodium Chloride 10 ml 01/19/21 01:00 02/12/21 00:09 Sodium Chloride Flush 0.9% 10 Ml Syringe IVP 10 ml 0100,0900,1700 YONATHAN Administration Sodium Chloride 20 ml 01/31/21 09:19 02/12/21 00:09 Sodium Chloride Flush 0.9% 10 Ml Syringe IVP 20 ml PRN PRN Administration After Blood Draw Spironolactone 25 mg 01/27/21 09:00 02/12/21 09:31 Spironolactone 25 Mg Tablet PO 25 mg DAILY YONATHAN Administration Thiamine HCl 100 mg 01/29/21 10:30 02/12/21 09:31 Thiamine 100 Mg Tablet PO 100 mg DAILY YONATHAN Administration - Lab Result Fish Bone Diagrams: 01/30/21 14:55 01/30/21 14:55 Subjective - Subjective Patient Reports: Resting Comfortably Objective Vital Signs: Vital Signs - 24 hr 02/12/21 02/12/21 00:24 07:49 Temperature 36.6 C 36.8 C Heart Rate [ 84 Brachial] Heart Rate [ 93 Radial] Respiratory 19 20 Rate Blood Pressure 96/77 [Left Brachial artery] Blood Pressure 91/59 L [Right Brachial artery] O2 Saturation 100 100 Oxygen O2 Source Room air I&O (Last 24 Hrs): Intake and Output Totals x24h 02/10/21 02/11/21 02/12/21 23:59 23:59 23:59 Intake Total 1520 710 480 Output Total 2975 1400 1100 Balance -7911 -690 -027 General: Alert, Oriented x3, Cooperative, No acute distress HEENT: Atraumatic Neck: Supple Lymphatic: no adenopathy Neuro: Alert, Non Focal, Oriented Times 3 Cardiovascular: Regular rate, Normal S1, Normal S2 Respiratory: Chest non-tender, No respiratory distress Abdomen: Normal bowel sounds, Soft Extremities: Normal pulses - Results Results: Laboratory Results WBC 9.6 x10^3/uL (4.8-10.8) 01/30/21 14:55 RBC 4.04 10^6/uL (4.70-6.10) L 01/30/21 14:55 Hgb 13.0 g/dL (14.0-18.0) L 01/30/21 14:55 Hct 40.3 % (42.0-52.0) L 01/30/21 14:55 MCV 99.8 fL (80.0-94.0) H 01/30/21 14:55 MCH 32.2 pg (27.0-31.0) H 01/30/21 14:55 MCHC 32.3 g/dL (32.0-36.0) 01/30/21 14:55 RDW 14.9 % (12.0-15.0) 01/30/21 14:55 Plt Count 211 10^3/uL (130-450) 01/30/21 14:55 MPV 10.9 fL (7.4-11.4) 01/30/21 14:55 Neut # (Auto) 7.0 10^3/uL (1.5-6.6) H 01/30/21 14:55 Lymph # (Auto) 1.4 10^3/uL (1.5-3.5) L 01/30/21 14:55 [place] # (Auto) 0.9 10^3/uL (0.0-1.0) 01/30/21 14:55 Eos # (Auto) 0.2 10^3/uL (0.0-0.7) 01/30/21 14:55 Baso # (Auto) 0.1 10^3/uL (0.0-0.1) 01/30/21 14:55 Absolute Nucleated RBC 0.00 x10^3/uL 01/30/21 14:55 Total Counted 100 01/24/21 04:26 Band Neuts % (Manual) 1 % (0-10) 01/24/21 04:26 Reactive Lymphs % (Man) 3 % 01/18/21 16:51 Abnorm Lymph % (Manual) 0 % 01/24/21 04:26 Nucleated RBC % 0.0 /100WBC 01/30/21 14:55 Neutrophils # (Manual) 6.9 10^3/uL (1.5-6.6) H 01/24/21 04:26 Lymphocytes # (Manual) 0.5 10^3/uL (1.5-3.5) L 01/24/21 04:26 Monocytes # (Manual) 1.5 10^3/uL (0.0-1.0) H 01/24/21 04:26 Eosinophils # (Manual) 0.0 10^3/uL (0-0.7) 01/24/21 04:26 Basophils # (Manual) 0.0 10^3/uL (0-0.1) 01/24/21 04:26 Differential Comment MANUAL DIFFERENTIAL 01/24/21 04:26 Manual Slide Review Indicated 01/24/21 04:26 WBC Morphology NORMAL APPEARANCE (NORMAL) 01/23/21 08:40 Platelet Estimate DECREASED (<130,000) (NORMAL) 01/24/21 04:26 Platelet Morphology NORMAL APPEARANCE (NORMAL) 01/23/21 08:40 RBC Morph Micro Appear NORMAL APPEARANCE (NORMAL) 01/23/21 08:40 PT 21.2 secs (9.9-12.6) H 01/21/21 14:51 INR 1.9 (0.8-1.2) H 01/21/21 14:51 Bld Gas Analysis Time 1311 01/21/21 13:06 Sample Site RIGHT RADIAL 01/21/21 13:06 ABG pH 7.44 (7.35-7.45) 01/21/21 13:06 ABG pCO2 30 mmHg (34-45) L 01/21/21 13:06 ABG pO2 92 mmHg (80-100) 01/21/21 13:06 ABG HCO3 19.6 mmol/L (22.0-26.0) L 01/21/21 13:06 ABG Total CO2 20.5 MMOL/L (21.0-29.0) L 01/21/21 13:06 ABG O2 Saturation 97 % (94-98) 01/21/21 13:06 ABG Base Excess -3.4 mmol/L (-2.0-3.0) L 01/21/21 13:06 Honorio Test POSITIVE 01/21/21 13:06 VBG pH 7.406 (7.31-7.41) 01/24/21 07:51 Ionized Calcium 1.06 mmol/L (1.15-1.33) L 01/24/21 07:51 O2 Delivery Device NON REBREATHER MASK 01/21/21 13:06 O2 Liters/Min 15.00 LPM 01/21/21 13:06 FiO2 100.00 01/21/21 13:06 Sodium 136 mmol/L (135-145) 01/30/21 14:55 Potassium 4.4 mmol/L (3.5-5.0) 01/30/21 14:55 Chloride 101 mmol/L (101-111) 01/30/21 14:55 Carbon Dioxide 25 mmol/L (21-32) 01/30/21 14:55 Anion Gap 10.0 (6-13) 01/30/21 14:55 BUN 17 mg/dL (6-20) 01/30/21 14:55 Creatinine 1.1 mg/dL (0.6-1.2) 01/30/21 14:55 Estimated GFR (MDRD) 69 (>89) L 01/30/21 14:55 Glucose 87 mg/dL (70-100) 01/30/21 14:55 Lactic Acid 2.0 mmol/L (0.5-2.2) 01/22/21 19:02 Calcium 8.3 mg/dL (8.5-10.3) L 01/30/21 14:55 Phosphorus 3.3 mg/dL (2.5-4.6) 01/24/21 04:26 Magnesium 1.8 mg/dL (1.7-2.8) 01/24/21 04:26 Total Bilirubin 2.1 mg/dL (0.2-1.0) H 01/28/21 05:15 Direct Bilirubin 0.9 mg/dL (0.1-0.5) H 01/23/21 04:35 AST 144 IU/L (10-42) H 01/28/21 05:15 ALT 256 IU/L (10-60) H 01/28/21 05:15 Alkaline Phosphatase 103 IU/L (42-121) 01/28/21 05:15 Troponin I High Sens 234.5 ng/L (2.3-19.7) H* 01/22/21 19:02 B-Natriuretic Peptide 4949.00 pg/mL (5-100) H 01/25/21 07:55 Total Protein 5.2 g/dL (6.7-8.2) L 01/28/21 05:15 Albumin 2.8 g/dL (3.2-5.5) L 01/28/21 05:15 Globulin 2.4 g/dL (2.1-4.2) 01/28/21 05:15 Albumin/Globulin Ratio 1.2 (1.0-2.2) 01/28/21 05:15 TSH 7.65 uIU/mL (0.34-5.60) H 01/23/21 04:35 Nasal Adenovirus (PCR) NOT DETECTED 01/18/21 18:22 Nasal B. parapertussis DNA (PCR) NOT DETECTED 01/18/21 18:22 Nasal Coronavir 229E PCR NOT DETECTED 01/18/21 18:22 Nasal Coronavir HKU1 PCR NOT DETECTED 01/18/21 18:22 Nasal Coronavir NL63 PCR NOT DETECTED 01/18/21 18:22 Nasal Coronavir OC43 PCR NOT DETECTED 01/18/21 18:22 Nasal Enterovir/Rhinovir PCR NOT DETECTED 01/18/21 18:22 Nasal Influenza B PCR NOT DETECTED 01/18/21 18:22 Nasal Influenza A PCR NOT DETECTED 01/18/21 18:22 Nasal Parainfluen 1 PCR NOT DETECTED 01/18/21 18:22 Nasal Parainfluen 2 PCR NOT DETECTED 01/18/21 18:22 Nasal Parainfluen 3 PCR NOT DETECTED 01/18/21 18:22 Nasal Parainfluen 4 PCR NOT DETECTED 01/18/21 18:22 Nasal RSV (PCR) NOT DETECTED 01/18/21 18:22 Nasal Screen MRSA (PCR) NEGATIVE (NEGATIVE) 01/21/21 12:45 Nasal B.pertussis DNA PCR NOT DETECTED 01/18/21 18:22 Nasal C.pneumoniae (PCR) NOT DETECTED 01/18/21 18:22 [place] Human Metapneumo PCR NOT DETECTED 01/18/21 18:22 Nasal M.pneumoniae (PCR) NOT DETECTED 01/18/21 18:22 Nasal SARS-CoV-2 (PCR) NOT DETECTED 01/18/21 18:22 Last Dose Date 01/26/21 01/27/21 06:25 Last Dose Time 1016 01/27/21 06:25 Digoxin 0.2 ng/mL 01/27/21 06:25 Ethyl Alcohol < 5.0 mg/dL 01/18/21 16:51 Hepatitis A IgM Ab NON-REACTIVE (NON-REACTIVE) 01/19/21 06:19 Hep Bs Antigen NON-REACTIVE (NON-REACTIVE) 01/19/21 06:19 Hep B Core IgM Ab NON-REACTIVE (NON-REACTIVE) 01/19/21 06:19 Hepatitis C Antibody REACTIVE (NON-REACTIVE) A 01/19/21 06:19 Hep C Ab Signal/Cutoff 6.50 (<1.00) H 01/19/21 06:19 - Procedures Procedures: Procedures COLONOSCOPY (08/16/13) ABX Reporting Has patient been on IV antibiotics over the past 48 hours?: No Current Medications - Current Medications Current Medications: Active Medications Albuterol (Albuterol 1 Puff) 2 puffs INH Q4HR PRN PRN Reason: Dyspnea Digoxin (Digoxin 125 Mcg Tablet) 125 mcg PO DAILY [facility] Last Admin: 02/12/21 09:31 Dose: 125 mcg Documented by: Furosemide (Furosemide 40 Mg Tablet) 40 mg PO DAILY [facility] Last Admin: 02/12/21 09:33 Dose: 40 mg Documented by: Gabapentin (Gabapentin 300 Mg Capsule) 300 mg PO 0800,1400 PRN PRN Reason: LEG PAIN OR ANXIETY Last Admin: 02/08/21 08:41 Dose: 300 mg Documented by: Gabapentin (Gabapentin 300 Mg Capsule) 600 mg PO QPM [facility] Last Admin: 02/11/21 21:41 Dose: 600 mg Documented by: Heparin Sodium (Beef Lung) (Heparin Flush 50 Units/5 Ml Syringe) 30 - 50 unit IVP PRN PRN PRN Reason: Port Protocol (<24 hours) Last Admin: 02/11/21 21:42 Dose: 90 unit Documented by: Lisinopril (Lisinopril 5 Mg Tablet) 2.5 mg PO DAILY [facility] Last Admin: 02/12/21 09:32 Dose: 2.5 mg Documented by: Metoprolol Succinate (Metoprolol Succinate 50 Mg Tablet) 50 mg PO DAILY [facility] Last Admin: 02/12/21 09:34 Dose: Not Given Documented by: Morphine Sulfate (Morphine 2 Mg/Ml Carpuject) 1 mg IVP Q4HR PRN PRN Reason: PAIN Last Admin: 02/02/21 14:58 Dose: 1 mg Documented by: Multivitamins (Multivitamin Tablet) 1 tab PO DAILYWM [facility] Last Admin: 02/12/21 07:59 Dose: 1 tab Documented by: Nicotine (Nicotine 14 Mg Patch) 1 patch TOP DAILY [facility] Last Admin: 02/12/21 09:33 Dose: Not Given Documented by: Ondansetron HCl (Ondansetron 4 Mg/2 Ml Vial) 4 mg IVP Q6HR PRN PRN Reason: Nausea / Vomiting Last Admin: 01/19/21 23:45 Dose: 4 mg Documented by: Oxycodone HCl (Oxycodone 5 Mg Tablet) 5 mg PO Q4HR PRN PRN Reason: Pain 5 to 7 Last Admin: 02/12/21 09:32 Dose: 5 mg Documented by: Polyethylene Glycol (Polyethylene Glycol 3350 17 Gm Packet) 17 gm PO DAILY [facility] Last Admin: 02/12/21 09:33 Dose: Not Given Documented by: Sodium Chloride (Sodium Chloride Flush 0.9% 10 Ml Syringe) 10 ml IVP PRN PRN PRN Reason: NEEDED PER PROVIDER ORDERS Last Admin: 02/10/21 08:43 Dose: 10 ml Documented by: Sodium Chloride (Sodium Chloride Flush 0.9% 10 Ml Syringe) 10 ml IVP 0100,0900,1700 [facility] Last Admin: 02/12/21 00:09 Dose: 10 ml Documented by: Sodium Chloride (Sodium Chloride Flush 0.9% 10 Ml Syringe) 20 ml IVP PRN PRN PRN Reason: After Blood Draw Last Admin: 02/12/21 00:09 Dose: 20 ml Documented by: Spironolactone (Spironolactone 25 Mg Tablet) 25 mg PO DAILY [facility] Last Admin: 02/12/21 09:31 Dose: 25 mg Documented by: Thiamine HCl (Thiamine 100 Mg Tablet) 100 mg PO DAILY [facility] Last Admin: 02/12/21 09:31 Dose: 100 mg Documented by: Citalopram [CeleXA] 10 mg ORAL DAILY 09/15/20 Gabapentin [Neurontin] 300 mg PO 0800,1400 PRN 01/19/21 Gabapentin [Neurontin] 600 mg PO QPM 12/11/21 Metoprolol Succinate [Toprol Xl] 25 mg PO DAILY 01/19/21
[2021-02-12] MEDS: GABAPENTIN 300 MG CAPSULE PO SCH (21:07)
[2021-02-13] MEDS: oxyCODONE 5 MG TABLET PO PRN ×3 (04:52→22:39)
[2021-02-13] MEDS: polyethylene glycoL 3350 17 GM PACKET PO SCH (08:28)
[2021-02-13] MEDS: DIGOXIN 125 MCG TABLET PO SCH (08:28)
[2021-02-13] MEDS: GABAPENTIN 300 MG CAPSULE PO PRN (08:28)
[2021-02-13] MEDS: SPIRONOLACTONE 25 MG TABLET PO SCH (08:28)
[2021-02-13] MEDS: FUROSEMIDE 40 MG TABLET PO SCH (08:28)
[2021-02-13] MEDS: lisinopriL 5 MG TABLET PO SCH (08:28)
[2021-02-13] MEDS: THIAMINE 100 MG TABLET PO SCH (08:28)
[2021-02-13] MEDS: MULTIVITAMIN TABLET PO SCH (08:28)
[2021-02-13] MEDS: METOPROLOL SUCCINATE 50 MG TABLET PO SCH (08:29)
[2021-02-13] MEDS: NICOTINE 14 MG PATCH TOP SCH (08:29)
[2021-02-13] MEDS: SODIUM CHLORIDE FLUSH 0.9% 10 ML SYRINGE IVP PRN ×3 (08:31→22:40)
[2021-02-13] MEDS: SODIUM CHLORIDE FLUSH 0.9% 10 ML SYRINGE IVP SCH ×3 (08:31→22:39)
--- NOTE | 2021-02-13 10:55 | PROVIDER PROGRESS NOTE ---
Assessment/Plan - Problem List (1) Acute on chronic systolic and diastolic heart failure, NYHA class 4 Assessment/Plan: 02/13 pt is stable, has no complaints. case management social worker was consulted and wait for placement, 02/12 pt is stable, he has no complaints. pending on placement (2)encounter of hospice care pt chose for hospice care. pt has hx of end stage of heart failure, COPD, hep atitis, homeless living status. hospice care will followup with pt after d/c from hospital. - Current Meds Current Meds: Current Medications Generic Name Dose Route Start Last Admin Trade Name Freq PRN Reason Stop Dose Admin Digoxin 125 mcg 01/23/21 09:00 02/13/21 08:28 Digoxin 125 Mcg Tablet PO 125 mcg DAILY YONATHAN Administration Furosemide 40 mg 01/31/21 09:00 02/13/21 08:28 Furosemide 40 Mg Tablet PO 40 mg DAILY YONATHAN Administration Gabapentin 300 mg 01/31/21 07:44 02/13/21 08:28 Gabapentin 300 Mg Capsule PO 300 mg 0800,1400 PRN Administration LEG PAIN OR ANXIETY Gabapentin 600 mg 01/31/21 21:00 02/12/21 21:07 Gabapentin 300 Mg Capsule PO 600 mg QPM YONATHAN Administration Heparin Sodium (Beef Lung) 30 - 50 unit 01/27/21 09:45 02/11/21 21:42 Heparin Flush 50 Units/5 Ml Syringe IVP 90 unit PRN PRN Administration Port Protocol (<24 hours) Lisinopril 2.5 mg 02/01/21 09:00 02/13/21 08:28 Lisinopril 5 Mg Tablet PO 2.5 mg DAILY YONATHAN Administration Metoprolol Succinate 50 mg 02/03/21 09:00 02/13/21 08:29 Metoprolol Succinate 50 Mg Tablet PO Not Given DAILY YONATHAN Morphine Sulfate 1 mg 01/18/21 21:45 02/02/21 14:58 Morphine 2 Mg/Ml Carpuject IVP 1 mg Q4HR PRN Administration PAIN Multivitamins 1 tab 01/19/21 08:00 02/13/21 08:28 Multivitamin Tablet PO 1 tab DAILYWM YONATHAN Administration Nicotine 1 patch 02/01/21 18:28 02/13/21 08:29 Nicotine 14 Mg Patch TOP Not Given DAILY YONATHAN Ondansetron HCl 4 mg 01/18/21 18:18 01/19/21 23:45 Ondansetron 4 Mg/2 Ml Vial IVP 4 mg Q6HR PRN Administration Nausea / Vomiting Oxycodone HCl 5 mg 01/18/21 18:18 02/13/21 04:52 Oxycodone 5 Mg Tablet PO 5 mg Q4HR PRN Administration Pain 5 to 7 Polyethylene Glycol 17 gm 01/22/21 09:00 02/13/21 08:28 Polyethylene Glycol 3350 17 Gm Packet PO Not Given DAILY OYNATHAN Sodium Chloride 10 ml 01/18/21 18:18 02/12/21 23:54 Sodium Chloride Flush 0.9% 10 Ml Syringe IVP 10 ml PRN PRN Administration NEEDED PER PROVIDER ORDERS Sodium Chloride 10 ml 01/19/21 01:00 02/13/21 08:31 Sodium Chloride Flush 0.9% 10 Ml Syringe IVP 10 ml 0100,0900,1700 YONATHAN Administration Sodium Chloride 20 ml 01/31/21 09:19 02/13/21 08:31 Sodium Chloride Flush 0.9% 10 Ml Syringe IVP 20 ml PRN PRN Administration After Blood Draw Spironolactone 25 mg 01/27/21 09:00 02/13/21 08:28 Spironolactone 25 Mg Tablet PO 25 mg DAILY YONATHAN Administration Thiamine HCl 100 mg 01/29/21 10:30 02/13/21 08:28 Thiamine 100 Mg Tablet PO 100 mg DAILY YONATHAN Administration - Lab Result Fish Bone Diagrams: 01/30/21 14:55 01/30/21 14:55 - Additional Planning My Orders: My Active Orders 02/12/21 Dinner Regular Diet [DIET] Subjective - Subjective Patient Reports: Resting Comfortably Objective Vital Signs: Vital Signs - 24 hr 02/12/21 02/12/21 02/12/21 13:47 14:00 16:17 Temperature 36.7 C 36.7 C Heart Rate [ 83 50 L Brachial] Respiratory 23 20 16 Rate Blood Pressure [Left Brachial artery] Blood Pressure 102/75 101/58 L [Right Brachial artery] O2 Saturation 98 98 98 02/13/21 02/13/21 01:35 08:21 Temperature 36.5 C 36.7 C Heart Rate [ 45 L 50 L Brachial] Respiratory 17 17 Rate Blood Pressure 100/60 [Left Brachial artery] Blood Pressure 95/78 [Right Brachial artery] O2 Saturation 100 98 Oxygen O2 Source Room air I&O (Last 24 Hrs): Intake and Output Totals x24h 02/11/21 02/12/21 02/13/21 23:59 23:59 23:59 Intake Total 710 1420 240 Output Total 1400 1775 Balance -690 -355 240 General: Alert, Oriented x3, Cooperative, No acute distress HEENT: Atraumatic Neck: Supple Lymphatic: no adenopathy Neuro: Alert, Non Focal, Oriented Times 3 Cardiovascular: Regular rate, Normal S1, Normal S2 Respiratory: Chest non-tender, No respiratory distress Abdomen: Normal bowel sounds, Soft, No tenderness Extremities: Normal pulses - Results Results: Laboratory Results WBC 9.6 x10^3/uL (4.8-10.8) 01/30/21 14:55 RBC 4.04 10^6/uL (4.70-6.10) L 01/30/21 14:55 Hgb 13.0 g/dL (14.0-18.0) L 01/30/21 14:55 Hct 40.3 % (42.0-52.0) L 01/30/21 14:55 MCV 99.8 fL (80.0-94.0) H 01/30/21 14:55 MCH 32.2 pg (27.0-31.0) H 01/30/21 14:55 MCHC 32.3 g/dL (32.0-36.0) 01/30/21 14:55 RDW 14.9 % (12.0-15.0) 01/30/21 14:55 Plt Count 211 10^3/uL (130-450) 01/30/21 14:55 MPV 10.9 fL (7.4-11.4) 01/30/21 14:55 Neut # (Auto) 7.0 10^3/uL (1.5-6.6) H 01/30/21 14:55 Lymph # (Auto) 1.4 10^3/uL (1.5-3.5) L 01/30/21 14:55 Knott # (Auto) 0.9 10^3/uL (0.0-1.0) 01/30/21 14:55 Eos # (Auto) 0.2 10^3/uL (0.0-0.7) 01/30/21 14:55 Baso # (Auto) 0.1 10^3/uL (0.0-0.1) 01/30/21 14:55 Absolute Nucleated RBC 0.00 x10^3/uL 01/30/21 14:55 Total Counted 100 01/24/21 04:26 Band Neuts % (Manual) 1 % (0-10) 01/24/21 04:26 Reactive Lymphs % (Man) 3 % 01/18/21 16:51 Abnorm Lymph % (Manual) 0 % 01/24/21 04:26 Nucleated RBC % 0.0 /100WBC 01/30/21 14:55 Neutrophils # (Manual) 6.9 10^3/uL (1.5-6.6) H 01/24/21 04:26 Lymphocytes # (Manual) 0.5 10^3/uL (1.5-3.5) L 01/24/21 04:26 Monocytes # (Manual) 1.5 10^3/uL (0.0-1.0) H 01/24/21 04:26 Eosinophils # (Manual) 0.0 10^3/uL (0-0.7) 01/24/21 04:26 Basophils # (Manual) 0.0 10^3/uL (0-0.1) 01/24/21 04:26 Differential Comment MANUAL DIFFERENTIAL 01/24/21 04:26 Manual Slide Review Indicated 01/24/21 04:26 WBC Morphology NORMAL APPEARANCE (NORMAL) 01/23/21 08:40 Platelet Estimate DECREASED (<130,000) (NORMAL) 01/24/21 04:26 Platelet Morphology NORMAL APPEARANCE (NORMAL) 01/23/21 08:40 RBC Morph Micro Appear NORMAL APPEARANCE (NORMAL) 01/23/21 08:40 PT 21.2 secs (9.9-12.6) H 01/21/21 14:51 INR 1.9 (0.8-1.2) H 01/21/21 14:51 Bld Gas Analysis Time 1311 01/21/21 13:06 Sample Site RIGHT RADIAL 01/21/21 13:06 ABG pH 7.44 (7.35-7.45) 01/21/21 13:06 ABG pCO2 30 mmHg (34-45) L 01/21/21 13:06 ABG pO2 92 mmHg (80-100) 01/21/21 13:06 ABG HCO3 19.6 mmol/L (22.0-26.0) L 01/21/21 13:06 ABG Total CO2 20.5 MMOL/L (21.0-29.0) L 01/21/21 13:06 ABG O2 Saturation 97 % (94-98) 01/21/21 13:06 ABG Base Excess -3.4 mmol/L (-2.0-3.0) L 01/21/21 13:06 Honorio Test POSITIVE 01/21/21 13:06 VBG pH 7.406 (7.31-7.41) 01/24/21 07:51 Ionized Calcium 1.06 mmol/L (1.15-1.33) L 01/24/21 07:51 O2 Delivery Device NON REBREATHER MASK 01/21/21 13:06 O2 Liters/Min 15.00 LPM 01/21/21 13:06 FiO2 100.00 01/21/21 13:06 Sodium 136 mmol/L (135-145) 01/30/21 14:55 Potassium 4.4 mmol/L (3.5-5.0) 01/30/21 14:55 Chloride 101 mmol/L (101-111) 01/30/21 14:55 Carbon Dioxide 25 mmol/L (21-32) 01/30/21 14:55 Anion Gap 10.0 (6-13) 01/30/21 14:55 BUN 17 mg/dL (6-20) 01/30/21 14:55 Creatinine 1.1 mg/dL (0.6-1.2) 01/30/21 14:55 Estimated GFR (MDRD) 69 (>89) L 01/30/21 14:55 Glucose 87 mg/dL (70-100) 01/30/21 14:55 Lactic Acid 2.0 mmol/L (0.5-2.2) 01/22/21 19:02 Calcium 8.3 mg/dL (8.5-10.3) L 01/30/21 14:55 Phosphorus 3.3 mg/dL (2.5-4.6) 01/24/21 04:26 Magnesium 1.8 mg/dL (1.7-2.8) 01/24/21 04:26 Total Bilirubin 2.1 mg/dL (0.2-1.0) H 01/28/21 05:15 Direct Bilirubin 0.9 mg/dL (0.1-0.5) H 01/23/21 04:35 AST 144 IU/L (10-42) H 01/28/21 05:15 ALT 256 IU/L (10-60) H 01/28/21 05:15 Alkaline Phosphatase 103 IU/L (42-121) 01/28/21 05:15 Troponin I High Sens 234.5 ng/L (2.3-19.7) H* 01/22/21 19:02 B-Natriuretic Peptide 4949.00 pg/mL (5-100) H 01/25/21 07:55 Total Protein 5.2 g/dL (6.7-8.2) L 01/28/21 05:15 Albumin 2.8 g/dL (3.2-5.5) L 01/28/21 05:15 Globulin 2.4 g/dL (2.1-4.2) 01/28/21 05:15 Albumin/Globulin Ratio 1.2 (1.0-2.2) 01/28/21 05:15 TSH 7.65 uIU/mL (0.34-5.60) H 01/23/21 04:35 Nasal Adenovirus (PCR) NOT DETECTED 01/18/21 18:22 Nasal B. parapertussis DNA (PCR) NOT DETECTED 01/18/21 18:22 Nasal Coronavir 229E PCR NOT DETECTED 01/18/21 18:22 Nasal Coronavir HKU1 PCR NOT DETECTED 01/18/21 18:22 Nasal Coronavir NL63 PCR NOT DETECTED 01/18/21 18:22 Nasal Coronavir OC43 PCR NOT DETECTED 01/18/21 18:22 Nasal Enterovir/Rhinovir PCR NOT DETECTED 01/18/21 18:22 Nasal Influenza B PCR NOT DETECTED 01/18/21 18:22 Nasal Influenza A PCR NOT DETECTED 01/18/21 18:22 Nasal Parainfluen 1 PCR NOT DETECTED 01/18/21 18:22 Nasal Parainfluen 2 PCR NOT DETECTED 01/18/21 18:22 Nasal Parainfluen 3 PCR NOT DETECTED 01/18/21 18:22 Nasal Parainfluen 4 PCR NOT DETECTED 01/18/21 18:22 Nasal RSV (PCR) NOT DETECTED 01/18/21 18:22 Nasal Screen MRSA (PCR) NEGATIVE (NEGATIVE) 01/21/21 12:45 Nasal B.pertussis DNA PCR NOT DETECTED 01/18/21 18:22 Nasal C.pneumoniae (PCR) NOT DETECTED 01/18/21 18:22 [place] Human Metapneumo PCR NOT DETECTED 01/18/21 18:22 Nasal M.pneumoniae (PCR) NOT DETECTED 01/18/21 18:22 Nasal SARS-CoV-2 (PCR) NOT DETECTED 01/18/21 18:22 Last Dose Date 01/26/21 01/27/21 06:25 Last Dose Time 1016 01/27/21 06:25 Digoxin 0.2 ng/mL 01/27/21 06:25 Ethyl Alcohol < 5.0 mg/dL 01/18/21 16:51 Hepatitis A IgM Ab NON-REACTIVE (NON-REACTIVE) 01/19/21 06:19 Hep Bs Antigen NON-REACTIVE (NON-REACTIVE) 01/19/21 06:19 Hep B Core IgM Ab NON-REACTIVE (NON-REACTIVE) 01/19/21 06:19 Hepatitis C Antibody REACTIVE (NON-REACTIVE) A 01/19/21 06:19 Hep C Ab Signal/Cutoff 6.50 (<1.00) H 01/19/21 06:19 - Procedures Procedures: Procedures COLONOSCOPY (08/16/13) ABX Reporting Has patient been on IV antibiotics over the past 48 hours?: No Current Medications - Current Medications Current Medications: Active Medications Albuterol (Albuterol 1 Puff) 2 puffs INH Q4HR PRN PRN Reason: Dyspnea Digoxin (Digoxin 125 Mcg Tablet) 125 mcg PO DAILY [facility] Last Admin: 02/13/21 08:28 Dose: 125 mcg Documented by: Furosemide (Furosemide 40 Mg Tablet) 40 mg PO DAILY [facility] Last Admin: 02/13/21 08:28 Dose: 40 mg Documented by: Gabapentin (Gabapentin 300 Mg Capsule) 300 mg PO 0800,1400 PRN PRN Reason: LEG PAIN OR ANXIETY Last Admin: 02/13/21 08:28 Dose: 300 mg Documented by: Gabapentin (Gabapentin 300 Mg Capsule) 600 mg PO QPM [facility] Last Admin: 02/12/21 21:07 Dose: 600 mg Documented by: Heparin Sodium (Beef Lung) (Heparin Flush 50 Units/5 Ml Syringe) 30 - 50 unit IVP PRN PRN PRN Reason: Port Protocol (<24 hours) Last Admin: 02/11/21 21:42 Dose: 90 unit Documented by: Lisinopril (Lisinopril 5 Mg Tablet) 2.5 mg PO DAILY [facility] Last Admin: 02/13/21 08:28 Dose: 2.5 mg Documented by: Metoprolol Succinate (Metoprolol Succinate 50 Mg Tablet) 50 mg PO DAILY [facility] Last Admin: 02/13/21 08:29 Dose: Not Given Documented by: Morphine Sulfate (Morphine 2 Mg/Ml Carpuject) 1 mg IVP Q4HR PRN PRN Reason: PAIN Last Admin: 02/02/21 14:58 Dose: 1 mg Documented by: [facility]ivit[facility] ([facility]amin Tablet) [facility] Admin: 02/13/21 08:28 Dose: 1 tab Documented by: Nicotine (Nicotine 14 Mg Patch) 1 patch TOP DAILY [facility] Last Admin: 02/13/21 08:29 Dose: Not Given Documented by: Ondansetron HCl (Ondansetron 4 Mg/2 Ml Vial) 4 mg IVP Q6HR PRN PRN Reason: Nausea / Vomiting Last Admin: 01/19/21 23:45 Dose: 4 mg Documented by: Oxycodone HCl (Oxycodone 5 Mg Tablet) 5 mg PO Q4HR PRN PRN Reason: Pain 5 to 7 Last Admin: 02/13/21 04:52 Dose: 5 mg Documented by: Polyethylene Glycol (Polyethylene Glycol 3350 17 Gm Packet) 17 gm PO DAILY [facility] Last Admin: 02/13/21 08:28 Dose: Not Given Documented by: Sodium Chloride (Sodium Chloride Flush 0.9% 10 Ml Syringe) 10 ml IVP PRN PRN PRN Reason: NEEDED PER PROVIDER ORDERS Last Admin: 02/12/21 23:54 Dose: 10 ml Documented by: Sodium Chloride (Sodium Chloride Flush 0.9% 10 Ml Syringe) 10 ml IVP 0100,0900,1700 [facility] Last Admin: 02/13/21 08:31 Dose: 10 ml Documented by: Sodium Chloride (Sodium Chloride Flush 0.9% 10 Ml Syringe) 20 ml IVP PRN PRN PRN Reason: After Blood Draw Last Admin: 02/13/21 08:31 Dose: 20 ml Documented by: Spironolactone (Spironolactone 25 Mg Tablet) 25 mg PO DAILY [facility] Last Admin: 02/13/21 08:28 Dose: 25 mg Documented by: Thiamine HCl (Thiamine 100 Mg Tablet) 100 mg PO DAILY [facility] Last Admin: 02/13/21 08:28 Dose: 100 mg Documented by: Citalopram [CeleXA] 10 mg ORAL DAILY 09/15/20 Gabapentin [Neurontin] 300 mg PO 0800,1400 PRN 01/19/21 Gabapentin [Neurontin] 600 mg PO QPM 01/19/21 Metoprolol Succinate [Toprol Xl] 25 mg PO DAILY 01/19/21
[2021-02-13] MEDS: GABAPENTIN 300 MG CAPSULE PO SCH (20:20)
[2021-02-14] MEDS: FUROSEMIDE 40 MG TABLET PO SCH (07:58)
[2021-02-14] MEDS: SPIRONOLACTONE 25 MG TABLET PO SCH (07:58)
[2021-02-14] MEDS: MULTIVITAMIN TABLET PO SCH (07:58)
[2021-02-14] MEDS: THIAMINE 100 MG TABLET PO SCH (07:59)
[2021-02-14] MEDS: oxyCODONE 5 MG TABLET PO PRN ×3 (07:59→23:54)
[2021-02-14] MEDS: SODIUM CHLORIDE FLUSH 0.9% 10 ML SYRINGE IVP SCH ×3 (08:02→23:55)
[2021-02-14] MEDS: polyethylene glycoL 3350 17 GM PACKET PO SCH (08:02)
[2021-02-14] MEDS: NICOTINE 14 MG PATCH TOP SCH (08:03)
[2021-02-14] MEDS ORDERED: METOPROLOL SUCCINATE 25 MG TABLET PO SCH (09:00)
--- NOTE | 2021-02-14 10:55 | ADVANCE CARE PLANNING NOTE ---
Advance Care Planning - Planning Encounter Date: 02/14/21 Time: 10:48 Purpose: Advance care planning for patient Parties in Attendance: Patient and me Decisional Capacity of the Patient: Patient is alert, orientated plus 4, he has a full capacity to make his own medical decision - Encounter Subjective/Patient's Story: pt is willing to discuss his advance care plan today with me. pt report he does know he had "bad heart." But he garibay not worry about, "what I got, what I have." He wound like to have hospice care followup with him after d/c from hospital. He is clearly focus on his comfortable care and his quality of life. He sign new PLOST which state he is DNR code status, and comfort focus care. He rejected to have Covid 19 vaccine before but today he open to have Covid 19, "any way it is free for me." Objective/Medical Story: pt had acute on chronic congestive heart failure. Last echocardiogram available revealed an ejection fraction less than 20%. His BNP is nearly 4000 and he has lower extremity edema as well as pulmonary vascular congestion on imaging. His LFTs are significantly elevated and his INR is 2.6. This could be mu ltifactorial secondary to alcohol use, congestive hepatopathy, or history of hepatitis. His mattress discriminant function is 77 points. pt also has hx of COPD and paroxysmal atrial fibrillation. pt also is homeless status. pt was consulted by hospice care provider and he hope to have hospice care to be followup after d/c from hospital. Goals of Care: comfortable and quality of life, followup with hospice care Plan: 1, pt signed new PLOST forum with DNR code status and Comfortable-focus care 2, pt is willing to have Covid 19 vaccine 3, referral to hospice care followup Code Status: Do Not Attempt Resuscitation Time spent on advance care plannin
--- NOTE | 2021-02-14 11:21 | PROVIDER PROGRESS NOTE ---
Assessment/Plan - Problem List (1) Acute on chronic systolic and diastolic heart failure, NYHA class 4 Assessment/Plan: 02/14 pt's HR is down to 41 and low blood pressure. we will try to reduce Digoxin and metoprolol dosage and vital monitor. will continue Lasix, spironolactone and low dosage of Lisinopril. pt has EF<20% and congestive pulmonary edema. continue comfortable focus care and followup with hospice care after d/c (2) Peripheral vascular disease Impression: Stable. pt report Gabapentin and oxycodon are at good control to his peripheral neuropathy. continue comfortable focus care and followup with hospice care after d/c (3) COPD (chronic obstructive pulmonary disease) with emphysema Stable, no exacerbation currently. (4) Paroxysmal atrial fibrillation Impression: pt has bradycardia, HR is down to 41. reduce his digoxin and metoprolol dosage and keep vital monitor, focus on comfortable care. (5) Hepatitis Impression: Stable. Continuing current medical management/comfort care. (6) ESTEVAN (acute kidney injury) Impression: Resolved. (7) Cardiogenic shock Impression: Resolved. (8) Hyponatremia Impression: Resolved. - Current Meds Current Meds: Current Medications Generic Name Dose Route Start Last Admin Trade Name Freq PRN Reason Stop Dose Admin Furosemide 40 mg 01/31/21 09:00 02/14/21 07:58 Furosemide 40 Mg Tablet PO 40 mg DAILY YONATHAN Administration Gabapentin 300 mg 01/31/21 07:44 02/13/21 08:28 Gabapentin 300 Mg Capsule PO 300 mg 0800,1400 PRN Administration LEG PAIN OR ANXIETY Gabapentin 600 mg 01/31/21 21:00 02/13/21 20:20 Gabapentin 300 Mg Capsule PO 600 mg QPM YONATHAN Administration Heparin Sodium (Beef Lung) 30 - 50 unit 01/27/21 09:45 02/13/21 17:24 Heparin Flush 50 Units/5 Ml Syringe IVP 150 unit PRN PRN Administration Port Protocol (<24 hours) Lisinopril 2.5 mg 02/01/21 09:00 02/13/21 08:28 Lisinopril 5 Mg Tablet PO 2.5 mg DAILY YONATHAN Administration Morphine Sulfate 1 mg 01/18/21 21:45 02/02/21 14:58 Morphine 2 Mg/Ml Carpuject IVP 1 mg Q4HR PRN Administration PAIN Multivitamins 1 tab 01/19/21 08:00 02/14/21 07:58 Multivitamin Tablet PO 1 tab DAILYWM YONATHAN Administration Nicotine 1 patch 02/01/21 18:28 02/14/21 08:03 Nicotine 14 Mg Patch TOP Not Given DAILY YONATHAN Ondansetron HCl 4 mg 01/18/21 18:18 01/19/21 23:45 Ondansetron 4 Mg/2 Ml Vial IVP 4 mg Q6HR PRN Administration Nausea / Vomiting Oxycodone HCl 5 mg 01/18/21 18:18 02/14/21 07:59 Oxycodone 5 Mg Tablet PO 5 mg Q4HR PRN Administration Pain 5 to 7 Polyethylene Glycol 17 gm 01/22/21 09:00 02/14/21 08:02 Polyethylene Glycol 3350 17 Gm Packet PO Not Given DAILY YONATHAN Sodium Chloride 10 ml 01/18/21 18:18 02/13/21 22:40 Sodium Chloride Flush 0.9% 10 Ml Syringe IVP 10 ml PRN PRN Administration NEEDED PER PROVIDER ORDERS Sodium Chloride 10 ml 01/19/21 01:00 02/14/21 08:02 Sodium Chloride Flush 0.9% 10 Ml Syringe IVP 10 ml 0100,0900,1700 YONATHAN Administration Sodium Chloride 20 ml 01/31/21 09:19 02/13/21 08:31 Sodium Chloride Flush 0.9% 10 Ml Syringe IVP 20 ml PRN PRN Administration After Blood Draw Spironolactone 25 mg 01/27/21 09:00 02/14/21 07:58 Spironolactone 25 Mg Tablet PO 25 mg DAILY YONATHAN Administration Thiamine HCl 100 mg 01/29/21 10:30 02/14/21 07:59 Thiamine 100 Mg Tablet PO 100 mg DAILY YONATHAN Administration - Lab Result Fish Bone Diagrams: 01/30/21 14:55 01/30/21 14:55 - Additional Planning My Orders: My Active Orders 02/14/21 10:35 Metoprolol Succinate [Toprol Xl] 25 mg PO DAILY 02/14/21 11:00 Digoxin [Lanoxin] 62.5 mcg PO DAILY Subjective - Subjective Patient Reports: Feeling Better, Resting Comfortably Objective Vital Signs: Vital Signs - 24 hr 02/13/21 02/13/21 02/14/21 15:44 22:49 07:55 Temperature 36.4 C L 36.4 C L 36.5 C Heart Rate [ 83 91 41 L Brachial] Heart Rate [ Radial] Respiratory 16 16 16 Rate Blood Pressure 102/74 [Left Brachial artery] Blood Pressure 114/62 99/82 H [Right Brachial artery] O2 Saturation 98 97 96 02/14/21 10:06 Temperature Heart Rate [ Brachial] Heart Rate [ 68 Radial] Respiratory Rate Blood Pressure [Left Brachial artery] Blood Pressure 117/71 [Right Brachial artery] O2 Saturation Oxygen O2 Source Room air I&O (Last 24 Hrs): Intake and Output Totals x24h 02/12/21 02/13/21 02/14/21 23:59 23:59 23:59 Intake Total 1420 960 600 Output Total 1775 7160 8515 Balance -355 -728 -037 General: Alert, Oriented x3, Cooperative, No acute distress HEENT: Atraumatic Neck: Supple Lymphatic: no adenopathy Neuro: Alert, Non Focal, Oriented Times 3 Cardiovascular: Normal S1, Normal S2 Respiratory: Chest non-tender, No respiratory distress Abdomen: Normal bowel sounds, Soft, No tenderness Extremities: Normal pulses - Results Results: Laboratory Results WBC 9.6 x10^3/uL (4.8-10.8) 01/30/21 14:55 RBC 4.04 10^6/uL (4.70-6.10) L 01/30/21 14:55 Hgb 13.0 g/dL (14.0-18.0) L 01/30/21 14:55 Hct 40.3 % (42.0-52.0) L 01/30/21 14:55 MCV 99.8 fL (80.0-94.0) H 01/30/21 14:55 MCH 32.2 pg (27.0-31.0) H 01/30/21 14:55 MCHC 32.3 g/dL (32.0-36.0) 01/30/21 14:55 RDW 14.9 % (12.0-15.0) 01/30/21 14:55 Plt Count 211 10^3/uL (130-450) 01/30/21 14:55 MPV 10.9 fL (7.4-11.4) 01/30/21 14:55 Neut # (Auto) 7.0 10^3/uL (1.5-6.6) H 01/30/21 14:55 Lymph # (Auto) 1.4 10^3/uL (1.5-3.5) L 01/30/21 14:55 Pine # (Auto) 0.9 10^3/uL (0.0-1.0) 01/30/21 14:55 Eos # (Auto) 0.2 10^3/uL (0.0-0.7) 01/30/21 14:55 Baso # (Auto) 0.1 10^3/uL (0.0-0.1) 01/30/21 14:55 Absolute Nucleated RBC 0.00 x10^3/uL 01/30/21 14:55 Total Counted 100 01/24/21 04:26 Band Neuts % (Manual) 1 % (0-10) 01/24/21 04:26 Reactive Lymphs % (Man) 3 % 01/18/21 16:51 Abnorm Lymph % (Manual) 0 % 01/24/21 04:26 Nucleated RBC % 0.0 /100WBC 01/30/21 14:55 Neutrophils # (Manual) 6.9 10^3/uL (1.5-6.6) H 01/24/21 04:26 Lymphocytes # (Manual) 0.5 10^3/uL (1.5-3.5) L 01/24/21 04:26 Monocytes # (Manual) 1.5 10^3/uL (0.0-1.0) H 01/24/21 04:26 Eosinophils # (Manual) 0.0 10^3/uL (0-0.7) 01/24/21 04:26 Basophils # (Manual) 0.0 10^3/uL (0-0.1) 01/24/21 04:26 Differential Comment MANUAL DIFFERENTIAL 01/24/21 04:26 Manual Slide Review Indicated 01/24/21 04:26 WBC Morphology NORMAL APPEARANCE (NORMAL) 01/23/21 08:40 Platelet Estimate DECREASED (<130,000) (NORMAL) 01/24/21 04:26 Platelet Morphology NORMAL APPEARANCE (NORMAL) 01/23/21 08:40 RBC Morph Micro Appear NORMAL APPEARANCE (NORMAL) 01/23/21 08:40 PT 21.2 secs (9.9-12.6) H 01/21/21 14:51 INR 1.9 (0.8-1.2) H 01/21/21 14:51 Bld Gas Analysis Time 1311 01/21/21 13:06 Sample Site RIGHT RADIAL 01/21/21 13:06 ABG pH 7.44 (7.35-7.45) 01/21/21 13:06 ABG pCO2 30 mmHg (34-45) L 01/21/21 13:06 ABG pO2 92 mmHg (80-100) 01/21/21 13:06 ABG HCO3 19.6 mmol/L (22.0-26.0) L 01/21/21 13:06 ABG Total CO2 20.5 MMOL/L (21.0-29.0) L 01/21/21 13:06 ABG O2 Saturation 97 % (94-98) 01/21/21 13:06 ABG Base Excess -3.4 mmol/L (-2.0-3.0) L 01/21/21 13:06 Honorio Test POSITIVE 01/21/21 13:06 VBG pH 7.406 (7.31-7.41) 01/24/21 07:51 Ionized Calcium 1.06 mmol/L (1.15-1.33) L 01/24/21 07:51 O2 Delivery Device NON REBREATHER MASK 01/21/21 13:06 O2 Liters/Min 15.00 LPM 01/21/21 13:06 FiO2 100.00 01/21/21 13:06 Sodium 136 mmol/L (135-145) 01/30/21 14:55 Potassium 4.4 mmol/L (3.5-5.0) 01/30/21 14:55 Chloride 101 mmol/L (101-111) 01/30/21 14:55 Carbon Dioxide 25 mmol/L (21-32) 01/30/21 14:55 Anion Gap 10.0 (6-13) 01/30/21 14:55 BUN 17 mg/dL (6-20) 01/30/21 14:55 Creatinine 1.1 mg/dL (0.6-1.2) 01/30/21 14:55 Estimated GFR (MDRD) 69 (>89) L 01/30/21 14:55 Glucose 87 mg/dL (70-100) 01/30/21 14:55 Lactic Acid 2.0 mmol/L (0.5-2.2) 01/22/21 19:02 Calcium 8.3 mg/dL (8.5-10.3) L 01/30/21 14:55 Phosphorus 3.3 mg/dL (2.5-4.6) 01/24/21 04:26 Magnesium 1.8 mg/dL (1.7-2.8) 01/24/21 04:26 Total Bilirubin 2.1 mg/dL (0.2-1.0) H 01/28/21 05:15 Direct Bilirubin 0.9 mg/dL (0.1-0.5) H 01/23/21 04:35 AST 144 IU/L (10-42) H 01/28/21 05:15 ALT 256 IU/L (10-60) H 01/28/21 05:15 Alkaline Phosphatase 103 IU/L (42-121) 01/28/21 05:15 Troponin I High Sens 234.5 ng/L (2.3-19.7) H* 01/22/21 19:02 B-Natriuretic Peptide 4949.00 pg/mL (5-100) H 01/25/21 07:55 Total Protein 5.2 g/dL (6.7-8.2) L 01/28/21 05:15 Albumin 2.8 g/dL (3.2-5.5) L 01/28/21 05:15 Globulin 2.4 g/dL (2.1-4.2) 01/28/21 05:15 Albumin/Globulin Ratio 1.2 (1.0-2.2) 01/28/21 05:15 TSH 7.65 uIU/mL (0.34-5.60) H 01/23/21 04:35 Nasal Adenovirus (PCR) NOT DETECTED 01/18/21 18:22 Nasal B. parapertussis DNA (PCR) NOT DETECTED 01/18/21 18:22 Nasal Coronavir 229E PCR NOT DETECTED 01/18/21 18:22 Nasal Coronavir HKU1 PCR NOT DETECTED 01/18/21 18:22 Nasal Coronavir NL63 PCR NOT DETECTED 01/18/21 18:22 Nasal Coronavir OC43 PCR NOT DETECTED 01/18/21 18:22 Nasal Enterovir/Rhinovir PCR NOT DETECTED 01/18/21 18:22 Nasal Influenza B PCR NOT DETECTED 01/18/21 18:22 Nasal Influenza A PCR NOT DETECTED 01/18/21 18:22 Nasal Parainfluen 1 PCR NOT DETECTED 01/18/21 18:22 Nasal Parainfluen 2 PCR NOT DETECTED 01/18/21 18:22 Nasal Parainfluen 3 PCR NOT DETECTED 01/18/21 18:22 Nasal Parainfluen 4 PCR NOT DETECTED 01/18/21 18:22 Nasal RSV (PCR) NOT DETECTED 01/18/21 18:22 Nasal Screen MRSA (PCR) NEGATIVE (NEGATIVE) 01/21/21 12:45 Nasal B.pertussis DNA PCR NOT DETECTED 01/18/21 18:22 Nasal C.pneumoniae (PCR) NOT DETECTED 01/18/21 18:22 [place] Human Metapneumo PCR NOT DETECTED 01/18/21 18:22 Nasal M.pneumoniae (PCR) NOT DETECTED 01/18/21 18:22 Nasal SARS-CoV-2 (PCR) NOT DETECTED 01/18/21 18:22 Last Dose Date 01/26/21 01/27/21 06:25 Last Dose Time 1016 01/27/21 06:25 Digoxin 0.2 ng/mL 01/27/21 06:25 Ethyl Alcohol < 5.0 mg/dL 01/18/21 16:51 Hepatitis A IgM Ab NON-REACTIVE (NON-REACTIVE) 01/19/21 06:19 Hep Bs Antigen NON-REACTIVE (NON-REACTIVE) 01/19/21 06:19 Hep B Core IgM Ab NON-REACTIVE (NON-REACTIVE) 01/19/21 06:19 Hepatitis C Antibody REACTIVE (NON-REACTIVE) A 01/19/21 06:19 Hep C Ab Signal/Cutoff 6.50 (<1.00) H 01/19/21 06:19 - Procedures Procedures: Procedures COLONOSCOPY (08/16/13) ABX Reporting Has patient been on IV antibiotics over the past 48 hours?: No Current Medications - Current Medications Current Medications: Active Medications Albuterol (Albuterol 1 Puff) 2 puffs INH Q4HR PRN PRN Reason: Dyspnea COVID-19 Vacc Ad26-S Recombinant (JSN) (PF) (Covid-19 Vac,Ad26(Mayte)/Pf 0.5 Ml Syringe) 0.5 ml IM .ONCE ONE Stop: 02/14/21 12:01 Digoxin (Digoxin 125 Mcg Tablet) 62.5 mcg PO DAILY [facility] Furosemide (Furosemide 40 Mg Tablet) 40 mg PO DAILY [facility] Last Admin: 02/14/21 07:58 Dose: 40 mg Gabapentin (Gabapentin 300 Mg Capsule) 300 mg PO 0800,1400 PRN PRN Reason: LEG PAIN OR ANXIETY Last Admin: 02/13/21 08:28 Dose: 300 mg Gabapentin (Gabapentin 300 Mg Capsule) 600 mg PO QPM [facility] Last Admin: 02/13/21 20:20 Dose: 600 mg Heparin Sodium (Beef Lung) (Heparin Flush 50 Units/5 Ml Syringe) 30 - 50 unit IVP PRN PRN PRN Reason: Port Protocol (<24 hours) Last Admin: 02/13/21 17:24 Dose: 150 unit Lisinopril (Lisinopril 5 Mg Tablet) 2.5 mg PO DAILY [facility] Last Admin: 02/13/21 08:28 Dose: 2.5 mg Metoprolol Succinate (Metoprolol Succinate 25 Mg Tablet) 25 mg PO DAILY [facility] Morphine Sulfate (Morphine 2 Mg/Ml Carpuject) 1 mg IVP Q4HR PRN PRN Reason: PAIN Last Admin: 02/02/21 14:58 Dose: 1 mg Multivitamins (Multivitamin Tablet) 1 tab PO DAILYWM [facility] Last Admin: 02/14/21 07:58 Dose: 1 tab Nicotine (Nicotine 14 Mg Patch) 1 patch TOP DAILY [facility] Last Admin: 02/14/21 08:03 Dose: Not Given Ondansetron HCl (Ondansetron 4 Mg/2 Ml Vial) 4 mg IVP Q6HR PRN PRN Reason: Nausea / Vomiting Last Admin: 01/19/21 23:45 Dose: 4 mg Oxycodone HCl (Oxycodone 5 Mg Tablet) 5 mg PO Q4HR PRN PRN Reason: Pain 5 to 7 Last Admin: 02/14/21 07:59 Dose: 5 mg Polyethylene Glycol (Polyethylene Glycol 3350 17 Gm Packet) 17 gm PO DAILY [facility] Last Admin: 02/14/21 08:02 Dose: Not Given Sodium Chloride (Sodium Chloride Flush 0.9% 10 Ml Syringe) 10 ml IVP PRN PRN PRN Reason: NEEDED PER PROVIDER ORDERS Last Admin: 02/13/21 22:40 Dose: 10 ml Sodium Chloride (Sodium Chloride Flush 0.9% 10 Ml Syringe) 10 ml IVP 0100,090 0,1700 [facility] Last Admin: 02/14/21 08:02 Dose: 10 ml Sodium Chloride (Sodium Chloride Flush 0.9% 10 Ml Syringe) 20 ml IVP PRN PRN PRN Reason: After Blood Draw Last Admin: 02/13/21 08:31 Dose: 20 ml Spironolactone (Spironolactone 25 Mg Tablet) 25 mg PO DAILY [facility] Last Admin: 02/14/21 07:58 Dose: 25 mg Thiamine HCl (Thiamine 100 Mg Tablet) 100 mg PO DAILY [facility] Last Admin: 02/14/21 07:59 Dose: 100 mg Citalopram [CeleXA] 10 mg ORAL DAILY 09/15/20 Gabapentin [Neurontin] 300 mg PO 0800,1400 PRN 01/19/21 Gabapentin [Neurontin] 600 mg PO QPM 01/19/21 Metoprolol Succinate [Toprol Xl] 25 mg PO DAILY 01/19/21
[2021-02-14] MEDS ORDERED: FUROSEMIDE 40 MG TABLET PO SCH (11:44)
[2021-02-14] MEDS ORDERED: COVID-19 VAC,AD26(JANSSEN)/PF 0.5 ML SYRINGE IM ONE (12:00)
[2021-02-14] MEDS: METOPROLOL SUCCINATE 25 MG TABLET PO SCH (14:46)
[2021-02-14] MEDS: DIGOXIN 125 MCG TABLET PO SCH (14:47)
[2021-02-14] MEDS: GABAPENTIN 300 MG CAPSULE PO SCH (21:10)
[2021-02-15] MEDS: oxyCODONE 5 MG TABLET PO PRN ×3 (06:56→20:19)
[2021-02-15] MEDS: DIGOXIN 125 MCG TABLET PO SCH (08:27)
[2021-02-15] MEDS: SPIRONOLACTONE 25 MG TABLET PO SCH (08:28)
[2021-02-15] MEDS: GABAPENTIN 300 MG CAPSULE PO PRN (08:29)
[2021-02-15] MEDS: THIAMINE 100 MG TABLET PO SCH (08:29)
[2021-02-15] MEDS: FUROSEMIDE 40 MG TABLET PO SCH (08:30)
[2021-02-15] MEDS: MULTIVITAMIN TABLET PO SCH (08:31)
[2021-02-15] MEDS: lisinopriL 5 MG TABLET PO SCH (08:31)
[2021-02-15] MEDS: METOPROLOL SUCCINATE 25 MG TABLET PO SCH (08:31)
[2021-02-15] MEDS: SODIUM CHLORIDE FLUSH 0.9% 10 ML SYRINGE IVP SCH ×3 (08:32→23:44)
[2021-02-15] MEDS: NICOTINE 14 MG PATCH TOP SCH (10:59)
[2021-02-15] MEDS: polyethylene glycoL 3350 17 GM PACKET PO SCH (11:00)
--- NOTE | 2021-02-15 12:14 | PROVIDER PROGRESS NOTE ---
Assessment/Plan - Problem List (1) Acute on chronic systolic and diastolic heart failure, NYHA class 4 Assessment/Plan: 02/15 HR is 73, BP is 102/76, improved and pt has No complaints, hemodynamic stable. Continue digoxin, metoprolol, Lasix, spironolactone and Lisinopril. 02/14 pt's HR is down to 41 and low blood pressure. we will try to reduce Digoxin and metoprolol dosage and vital monitor. will continue Lasix, spironolactone and low dosage of Lisinopril. pt has EF<20% and congestive pulmonary edema. continue comfortable focus care and followup with hospice care after d/c (2) Peripheral vascular disease Impression: Stable. pt report Gabapentin and oxycodon are at good control to his peripheral neuropathy. continue comfortable focus care and followup with hospice care after d/c (3) COPD (chronic obstructive pulmonary disease) with emphysema Stable, no exacerbation currently. (4) Paroxysmal atrial fibrillation Impression: pt has bradycardia, HR is down to 41. reduce his digoxin and metoprolol dosage and keep vital monitor, focus on comfortable care. (5) Hepatitis Impression: Stable. Continuing current medical management/comfort care. (6) ESTEVAN (acute kidney injury) Impression: Resolved. (7) Cardiogenic shock Impression: Resolved. (8) Hyponatremia Impression: Resolved. - Current Meds Current Meds: Current Medications Generic Name Dose Route Start Last Admin Trade Name Freq PRN Reason Stop Dose Admin Digoxin 62.5 mcg 02/14/21 11:00 02/15/21 08:27 Digoxin 125 Mcg Tablet PO 62.5 mcg DAILY YONATHAN Administration Furosemide 40 mg 02/14/21 11:44 02/15/21 08:30 Furosemide 40 Mg Tablet PO 40 mg DAILY YONATHAN Administration Gabapentin 300 mg 01/31/21 07:44 02/15/21 08:29 Gabapentin 300 Mg Capsule PO 300 mg 0800,1400 PRN Administration LEG PAIN OR ANXIETY Gabapentin 600 mg 01/31/21 21:00 02/14/21 21:10 Gabapentin 300 Mg Capsule PO 600 mg QPM YONATHAN Administration Heparin Sodium (Beef Lung) 30 - 50 unit 01/27/21 09:45 02/14/21 23:55 Heparin Flush 50 Units/5 Ml Syringe IVP 150 unit PRN PRN Administration Port Protocol (<24 hours) Lisinopril 2.5 mg 02/14/21 11:42 02/15/21 08:31 Lisinopril 5 Mg Tablet PO 2.5 mg DAILY YONATHAN Administration Metoprolol Succinate 25 mg 02/14/21 10:35 02/15/21 08:31 Metoprolol Succinate 25 Mg Tablet PO 25 mg DAILY YONATHAN Administration Morphine Sulfate 1 mg 01/18/21 21:45 02/02/21 14:58 Morphine 2 Mg/Ml Carpuject IVP 1 mg Q4HR PRN Administration PAIN Multivitamins 1 tab 01/19/21 08:00 02/15/21 08:31 Multivitamin Tablet PO 1 tab DAILYWM YONATHAN Administration Nicotine 1 patch 02/01/21 18:28 02/15/21 10:59 Nicotine 14 Mg Patch TOP Not Given DAILY YONATHAN Ondansetron HCl 4 mg 01/18/21 18:18 01/19/21 23:45 Ondansetron 4 Mg/2 Ml Vial IVP 4 mg Q6HR PRN Administration Nausea / Vomiting Oxycodone HCl 5 mg 01/18/21 18:18 02/15/21 06:56 Oxycodone 5 Mg Tablet PO 5 mg Q4HR PRN Administration Pain 5 to 7 Polyethylene Glycol 17 gm 01/22/21 09:00 02/15/21 11:00 Polyethylene Glycol 3350 17 Gm Packet PO Not Given DAILY YONATHAN Sodium Chloride 10 ml 01/18/21 18:18 02/13/21 22:40 Sodium Chloride Flush 0.9% 10 Ml Syringe IVP 10 ml PRN PRN Administration NEEDED PER PROVIDER ORDERS Sodium Chloride 10 ml 01/19/21 01:00 02/15/21 08:32 Sodium Chloride Flush 0.9% 10 Ml Syringe IVP 30 ml 0100,0900,1700 YONATHAN Administration Sodium Chloride 20 ml 01/31/21 09:19 02/13/21 08:31 Sodium Chloride Flush 0.9% 10 Ml Syringe IVP 20 ml PRN PRN Administration After Blood Draw Spironolactone 25 mg 02/14/21 11:44 02/15/21 08:28 Spironolactone 25 Mg Tablet PO 25 mg DAILY YONATHAN Administration Thiamine HCl 100 mg 01/29/21 10:30 02/15/21 08:29 Thiamine 100 Mg Tablet PO 100 mg DAILY YONATHAN Administration - Lab Result Fish Bone Diagrams: 01/30/21 14:55 01/30/21 14:55 - Additional Planning My Orders: My Active Orders 02/14/21 11:42 lisinopriL [Zestril] 2.5 mg PO DAILY 02/14/21 11:44 Furosemide [Lasix] 40 mg PO DAILY Spironolactone [Aldactone] 25 mg PO DAILY Subjective - Subjective Patient Reports: Feeling Better, Resting Comfortably Objective Vital Signs: Vital Signs - 24 hr 02/14/21 02/14/21 02/14/21 13:22 13:25 14:44 Temperature Heart Rate [ 45 L 62 Apical] Heart Rate [ 44 L Brachial] Heart Rate [ Radial] Respiratory 16 Rate Blood Pressure 101/74 122/73 [Right Brachial artery] O2 Saturation 97 02/14/21 02/14/21 02/15/21 15:33 23:52 07:41 Temperature 36.7 C 36.5 C 36.8 C Heart Rate [ Apical] Heart Rate [ Brachial] Heart Rate [ 84 86 73 Radial] Respiratory 16 17 16 Rate Blood Pressure 103/82 H 106/80 102/76 [Right Brachial artery] O2 Saturation 97 99 96 Oxygen O2 Source Room air I&O (Last 24 Hrs): Intake and Output Totals x24h 02/13/21 02/14/21 02/15/21 23:59 23:59 23:59 Intake Total 960 1330 800 Output Total 1850 2700 750 Balance -890 -1370 50 General: Alert, Oriented x3, Cooperative, No acute distress HEENT: Atraumatic, PERRLA Neck: Supple Lymphatic: no adenopathy Neuro: Alert, Non Focal, Oriented Times 3 Cardiovascular: Regular rate, Normal S1, Normal S2 Respiratory: Chest non-tender, No respiratory distress Abdomen: Normal bowel sounds, Soft Extremities: Normal pulses - Results Results: Laboratory Results WBC 9.6 x10^3/uL (4.8-10.8) 01/30/21 14:55 RBC 4.04 10^6/uL (4.70-6.10) L 01/30/21 14:55 Hgb 13.0 g/dL (14.0-18.0) L 01/30/21 14:55 Hct 40.3 % (42.0-52.0) L 01/30/21 14:55 MCV 99.8 fL (80.0-94.0) H 01/30/21 14:55 MCH 32.2 pg (27.0-31.0) H 01/30/21 14:55 MCHC 32.3 g/dL (32.0-36.0) 01/30/21 14:55 RDW 14.9 % (12.0-15.0) 01/30/21 14:55 Plt Count 211 10^3/uL (130-450) 01/30/21 14:55 MPV 10.9 fL (7.4-11.4) 01/30/21 14:55 Neut # (Auto) 7.0 10^3/uL (1.5-6.6) H 01/30/21 14:55 Lymph # (Auto) 1.4 10^3/uL (1.5-3.5) L 01/30/21 14:55 [place] # (Auto) 0.9 10^3/uL (0.0-1.0) 01/30/21 14:55 Eos # (Auto) 0.2 10^3/uL (0.0-0.7) 01/30/21 14:55 Baso # (Auto) 0.1 10^3/uL (0.0-0.1) 01/30/21 14:55 Absolute Nucleated RBC 0.00 x10^3/uL 01/30/21 14:55 Total Counted 100 01/24/21 04:26 Band Neuts % (Manual) 1 % (0-10) 01/24/21 04:26 Reactive Lymphs % (Man) 3 % 01/18/21 16:51 Abnorm Lymph % (Manual) 0 % 01/24/21 04:26 Nucleated RBC % 0.0 /100WBC 01/30/21 14:55 Neutrophils # (Manual) 6.9 10^3/uL (1.5-6.6) H 01/24/21 04:26 Lymphocytes # (Manual) 0.5 10^3/uL (1.5-3.5) L 01/24/21 04:26 Monocytes # (Manual) 1.5 10^3/uL (0.0-1.0) H 01/24/21 04:26 Eosinophils # (Manual) 0.0 10^3/uL (0-0.7) 01/24/21 04:26 Basophils # (Manual) 0.0 10^3/uL (0-0.1) 01/24/21 04:26 Differential Comment MANUAL DIFFERENTIAL 01/24/21 04:26 Manual Slide Review Indicated 01/24/21 04:26 WBC Morphology NORMAL APPEARANCE (NORMAL) 01/23/21 08:40 Platelet Estimate DECREASED (<130,000) (NORMAL) 01/24/21 04:26 Platelet Morphology NORMAL APPEARANCE (NORMAL) 01/23/21 08:40 RBC Morph Micro Appear NORMAL APPEARANCE (NORMAL) 01/23/21 08:40 PT 21.2 secs (9.9-12.6) H 01/21/21 14:51 INR 1.9 (0.8-1.2) H 01/21/21 14:51 Bld Gas Analysis Time 1311 01/21/21 13:06 Sample Site RIGHT RADIAL 01/21/21 13:06 ABG pH 7.44 (7.35-7.45) 01/21/21 13:06 ABG pCO2 30 mmHg (34-45) L 01/21/21 13:06 ABG pO2 92 mmHg (80-100) 01/21/21 13:06 ABG HCO3 19.6 mmol/L (22.0-26.0) L 01/21/21 13:06 ABG Total CO2 20.5 MMOL/L (21.0-29.0) L 01/21/21 13:06 ABG O2 Saturation 97 % (94-98) 01/21/21 13:06 ABG Base Excess -3.4 mmol/L (-2.0-3.0) L 01/21/21 13:06 Honorio Test POSITIVE 01/21/21 13:06 VBG pH 7.406 (7.31-7.41) 01/24/21 07:51 Ionized Calcium 1.06 mmol/L (1.15-1.33) L 01/24/21 07:51 O2 Delivery Device NON REBREATHER MASK 01/21/21 13:06 O2 Liters/Min 15.00 LPM 01/21/21 13:06 FiO2 100.00 01/21/21 13:06 Sodium 136 mmol/L (135-145) 01/30/21 14:55 Potassium 4.4 mmol/L (3.5-5.0) 01/30/21 14:55 Chloride 101 mmol/L (101-111) 01/30/21 14:55 Carbon Dioxide 25 mmol/L (21-32) 01/30/21 14:55 Anion Gap 10.0 (6-13) 01/30/21 14:55 BUN 17 mg/dL (6-20) 01/30/21 14:55 Creatinine 1.1 mg/dL (0.6-1.2) 01/30/21 14:55 Estimated GFR (MDRD) 69 (>89) L 01/30/21 14:55 Glucose 87 mg/dL (70-100) 01/30/21 14:55 Lactic Acid 2.0 mmol/L (0.5-2.2) 01/22/21 19:02 Calcium 8.3 mg/dL (8.5-10.3) L 01/30/21 14:55 Phosphorus 3.3 mg/dL (2.5-4.6) 01/24/21 04:26 Magnesium 1.8 mg/dL (1.7-2.8) 01/24/21 04:26 Total Bilirubin 2.1 mg/dL (0.2-1.0) H 01/28/21 05:15 Direct Bilirubin 0.9 mg/dL (0.1-0.5) H 01/23/21 04:35 AST 144 IU/L (10-42) H 01/28/21 05:15 ALT 256 IU/L (10-60) H 01/28/21 05:15 Alkaline Phosphatase 103 IU/L (42-121) 01/28/21 05:15 Troponin I High Sens 234.5 ng/L (2.3-19.7) H* 01/22/21 19:02 B-Natriuretic Peptide 4949.00 pg/mL (5-100) H 01/25/21 07:55 Total Protein 5.2 g/dL (6.7-8.2) L 01/28/21 05:15 Albumin 2.8 g/dL (3.2-5.5) L 01/28/21 05:15 Globulin 2.4 g/dL (2.1-4.2) 01/28/21 05:15 Albumin/Globulin Ratio 1.2 (1.0-2.2) 01/28/21 05:15 TSH 7.65 uIU/mL (0.34-5.60) H 01/23/21 04:35 Nasal Adenovirus (PCR) NOT DETECTED 01/18/21 18:22 Nasal B. parapertussis DNA (PCR) NOT DETECTED 01/18/21 18:22 Nasal Coronavir 229E PCR NOT DETECTED 01/18/21 18:22 Nasal Coronavir HKU1 PCR NOT DETECTED 01/18/21 18:22 Nasal Coronavir NL63 PCR NOT DETECTED 01/18/21 18:22 Nasal Coronavir OC43 PCR NOT DETECTED 01/18/21 18:22 Nasal Enterovir/Rhinovir PCR NOT DETECTED 01/18/21 18:22 Nasal Influenza B PCR NOT DETECTED 01/18/21 18:22 Nasal Influenza A PCR NOT DETECTED 01/18/21 18:22 Nasal Parainfluen 1 PCR NOT DETECTED 01/18/21 18:22 Nasal Parainfluen 2 PCR NOT DETECTED 01/18/21 18:22 Nasal Parainfluen 3 PCR NOT DETECTED 01/18/21 18:22 Nasal Parainfluen 4 PCR NOT DETECTED 01/18/21 18:22 Nasal RSV (PCR) NOT DETECTED 01/18/21 18:22 Nasal Screen MRSA (PCR) NEGATIVE (NEGATIVE) 01/21/21 12:45 Nasal B.pertussis DNA PCR NOT DETECTED 01/18/21 18:22 Nasal C.pneumoniae (PCR) NOT DETECTED 01/18/21 18:22 [place] Human Metapneumo PCR NOT DETECTED 01/18/21 18:22 Nasal M.pneumoniae (PCR) NOT DETECTED 01/18/21 18:22 Nasal SARS-CoV-2 (PCR) NOT DETECTED 01/18/21 18:22 Last Dose Date 01/26/21 01/27/21 06:25 Last Dose Time 1016 01/27/21 06:25 Digoxin 0.2 ng/mL 01/27/21 06:25 Ethyl Alcohol < 5.0 mg/dL 01/18/21 16:51 Hepatitis A IgM Ab NON-REACTIVE (NON-REACTIVE) 01/19/21 06:19 Hep Bs Antigen NON-REACTIVE (NON-REACTIVE) 01/19/21 06:19 Hep B Core IgM Ab NON-REACTIVE (NON-REACTIVE) 01/19/21 06:19 Hepatitis C Antibody REACTIVE (NON-REACTIVE) A 01/19/21 06:19 Hep C Ab Signal/Cutoff 6.50 (<1.00) H 01/19/21 06:19 - Procedures Procedures: Procedures COLONOSCOPY (08/16/13) ABX Reporting Has patient been on IV antibiotics over the past 48 hours?: No Current Medications - Current Medications Current Medications: Active Medications Albuterol (Albuterol 1 Puff) 2 puffs INH Q4HR PRN PRN Reason: Dyspnea Digoxin (Digoxin 125 Mcg Tablet) 62.5 mcg PO DAILY [facility] Last Admin: 02/15/21 08:27 Dose: 62.5 mcg Furosemide (Furosemide 40 Mg Tablet) 40 mg PO DAILY [facility] Last Admin: 02/15/21 08:30 Dose: 40 mg Gabapentin (Gabapentin 300 Mg Capsule) 300 mg PO 0800,1400 PRN PRN Reason: LEG PAIN OR ANXIETY Last Admin: 02/15/21 08:29 Dose: 300 mg Gabapentin (Gabapentin 300 Mg Capsule) 600 mg PO QPM [facility] Last Admin: 02/14/21 21:10 Dose: 600 mg Heparin Sodium (Beef Lung) (Heparin Flush 50 Units/5 Ml Syringe) 30 - 50 unit IVP PRN PRN PRN Reason: Port Protocol (<24 hours) Last Admin: 02/14/21 23:55 Dose: 150 unit Lisinopril (Lisinopril 5 Mg Tablet) 2.5 mg PO DAILY [facility] Last Admin: 02/15/21 08:31 Dose: 2.5 mg Metoprolol Succinate (Metoprolol Succinate 25 Mg Tablet) 25 mg PO DAILY [facility] Last Admin: 02/15/21 08:31 Dose: 25 mg Morphine Sulfate (Morphine 2 Mg/Ml Carpuject) 1 mg IVP Q4HR PRN PRN Reason: PAIN Last Admin: 02/02/21 14:58 Dose: 1 mg Multivitamins (Multivitamin Tablet) 1 tab PO DAILYWM [facility] Last Admin: 02/15/21 08:31 Dose: 1 tab Nicotine (Nicotine 14 Mg Patch) 1 patch TOP DAILY [facility] Last Admin: 02/15/21 10:59 Dose: Not Given Ondansetron HCl (Ondansetron 4 Mg/2 Ml Vial) 4 mg IVP Q6HR PRN PRN Reason: Nausea / Vomiting Last Admin: 01/19/21 23:45 Dose: 4 mg Oxycodone HCl (Oxycodone 5 Mg Tablet) 5 mg PO Q4HR PRN PRN Reason: Pain 5 to 7 Last Admin: 02/15/21 06:56 Dose: 5 mg Polyethylene Glycol (Polyethylene Glycol 3350 17 Gm Packet) 17 gm PO DAILY [facility] Last Admin: 02/15/21 11:00 Dose: Not Given Sodium Chloride (Sodium Chloride Flush 0.9% 10 Ml Syringe) 10 ml IVP PRN PRN PRN Reason: NEEDED PER PROVIDER ORDERS Last Admin: 02/13/21 22:40 Dose: 10 ml Sodium Chloride (Sodium Chloride Flush 0.9% 10 Ml Syringe) 10 ml IVP 0100,0900,1700 [facility] Last Admin: 02/15/21 08:32 Dose: 30 ml Sodium Chloride (Sodium Chloride Flush 0.9% 10 Ml Syringe) 20 ml IVP PRN PRN PRN Reason: After Blood Draw Last Admin: 02/13/21 08:31 Dose: 20 ml Spironolactone (Spironolactone 25 Mg Tablet) 25 mg PO DAILY [facility] Last Admin: 02/15/21 08:28 Dose: 25 mg Thiamine HCl (Thiamine 100 Mg Tablet) 100 mg PO DAILY [facility] Last Admin: 02/15/21 08:29 Dose: 100 mg Citalopram [CeleXA] 10 mg ORAL DAILY 09/15/20 Gabapentin [Neurontin] 300 mg PO 0800,1400 PRN 01/19/21 Gabapentin [Neurontin] 600 mg PO QPM 01/19/21 Metoprolol Succinate [Toprol Xl] 25 mg PO DAILY 01/19/21
[2021-02-15] MEDS: GABAPENTIN 300 MG CAPSULE PO SCH (20:19)
[2021-02-15] MEDS: SODIUM CHLORIDE FLUSH 0.9% 10 ML SYRINGE IVP PRN (23:44)
[2021-02-16] MEDS: METOPROLOL SUCCINATE 25 MG TABLET PO SCH (09:05)
[2021-02-16] MEDS: FUROSEMIDE 40 MG TABLET PO SCH (09:06)
[2021-02-16] MEDS: DIGOXIN 125 MCG TABLET PO SCH (09:06)
[2021-02-16] MEDS: lisinopriL 5 MG TABLET PO SCH (09:07)
[2021-02-16] MEDS: MULTIVITAMIN TABLET PO SCH (09:07)
[2021-02-16] MEDS: SPIRONOLACTONE 25 MG TABLET PO SCH (09:07)
[2021-02-16] MEDS: NICOTINE 14 MG PATCH TOP SCH (09:08)
[2021-02-16] MEDS: THIAMINE 100 MG TABLET PO SCH (09:08)
[2021-02-16] MEDS: SODIUM CHLORIDE FLUSH 0.9% 10 ML SYRINGE IVP SCH ×2 (09:09→16:22)
[2021-02-16] MEDS: polyethylene glycoL 3350 17 GM PACKET PO SCH (09:09)
[2021-02-16] MEDS: oxyCODONE 5 MG TABLET PO PRN ×3 (09:23→21:14)
--- NOTE | 2021-02-16 11:19 | PROVIDER PROGRESS NOTE ---
Subjective - Prog Note Date Prog Note Date: 02/16/21 - Subjective Pt reports feeling: No change Subjective: Pt reports feeling "fine" this morning with no complaints. Eating breakfast this morning, no nausea. Slept 3 hours last night and plans to take a nap this morning. Denies chest pain, palpitations, dizziness or dyspnea. Objective - Vital Signs/Intake & Output Reviewed Vital Signs: Yes Vital Signs: Vital Signs x48h Temp Pulse Pulse Resp BP BP Pulse Ox 02/16/21 09:11 65 17 124/98 H 96 02/16/21 08:19 37.3 C 47 L 16 91/64 87/71 L 98 Intake & Output: Intake & Output 02/13/21 02/14/21 02/15/21 02/16/21 23:59 23:59 23:59 23:59 Intake Total 960 1330 1280 540 Output Total 1850 2700 2350 700 Balance -890 -1370 -1070 -160 - Objective General Appearance: positive: No acute distress, Alert Eyes Bilateral: positive: Normal inspection, PERRL ENT: positive: ENT inspection nml, No signs of dehydration Cardiovascular: positive: Regular rate & rhythm Peripheral Pulses: 2+ Dorsalis pedis (R), 2+ Dorsalis pedis (L) Abdomen: positive: Non-tender, No organomegaly, Nml bowel sounds, No distention Skin: positive: Other (Skin peeling on the plantar feet, majority was able to be pulled off to reveal intact skin) Extremities: positive: Non-tender, Full ROM, Nml appearance Neurologic/Psychiatric: positive: Oriented x3 - Lab Results Fish Bones: 01/30/21 14:55 01/30/21 14:55 Assessment/Plan - Problem List (1) Acute on chronic systolic and diastolic heart failure, NYHA class 4 Impression: 02/16 Stable. HR 47 this morning, 63 on recheck. Denied chest pain, palpitations or dizziness. BP was 87/71 on the right and 91/64 on the left. On recheck it was 124/98. On chart review it looks like his Digoxin was decreased on 02/14 when similar bradycardia happened. He is now back up to the 60s with appropriate blood pressure so given the discharge plan of continuing comfort care will plan to continue to monitor. If he continues to have bradycardic episodes we may need to stop the Digoxin all together. Will continue to monitor. Pt has EF <20% and congestive pulmonary edema. Continue comfort focused care and follow up with hospice after DC. (2) Peripheral vascular disease Impression: Stable. He reports continued peripheral neuropathy but good control with his Gabapentin and Oxycodone. No change made to the current plan. (3) COPD (chronic obstructive pulmonary disease) with emphysema Impression: Stable, not currently in exacerbation. Qualifiers: Emphysema type: unspecified Qualified Code(s): J43.9 - Emphysema, unspecified (4) Paroxysmal atrial fibrillation Impression: Stable. He was bradycardic to 47 this morning but previous HRs yesterday and overnight were 70s-90. Regular rhythm on auscultation. Denies chest pain, palpitations, or dizziness. No change made to the current meds and will continue to monitor. (5) Hepatitis Impression: Stable. No change made to the current plan. (6) ESTEVAN (acute kidney injury) Impression: Resolved. (7) Cardiogenic shock Impression: Resolved. (8) Hyponatremia Impression: Resolved.
[2021-02-16] MEDS: GABAPENTIN 300 MG CAPSULE PO SCH (21:14)
[2021-02-17] MEDS: SODIUM CHLORIDE FLUSH 0.9% 10 ML SYRINGE IVP SCH ×3 (02:17→16:51)
[2021-02-17] MEDS: lisinopriL 5 MG TABLET PO SCH (07:57)
[2021-02-17] MEDS: oxyCODONE 5 MG TABLET PO PRN ×3 (07:57→20:11)
[2021-02-17] MEDS: METOPROLOL SUCCINATE 25 MG TABLET PO SCH (07:58)
[2021-02-17] MEDS: SPIRONOLACTONE 25 MG TABLET PO SCH (07:58)
[2021-02-17] MEDS: FUROSEMIDE 40 MG TABLET PO SCH (07:58)
[2021-02-17] MEDS: MULTIVITAMIN TABLET PO SCH (07:58)
[2021-02-17] MEDS: THIAMINE 100 MG TABLET PO SCH (07:59)
[2021-02-17] MEDS: NICOTINE 14 MG PATCH TOP SCH (07:59)
[2021-02-17] MEDS: DIGOXIN 125 MCG TABLET PO SCH (07:59)
--- NOTE | 2021-02-17 08:04 | PROVIDER PROGRESS NOTE ---
Subjective - Prog Note Date Prog Note Date: 02/17/21 - Subjective Pt reports feeling: No change Subjective: Pt again reports sleeping 3 hours overnight but feels well rested. Reports his peripheral neuropathy is unchanged in his feet, feels better after receiving his gabapentin and oxycodone. He is hoping to discharge with a prescription for both. Objective - Vital Signs/Intake & Output Reviewed Vital Signs: Yes Vital Signs: Vital Signs x48h Temp Pulse Resp BP Pulse Ox 02/17/21 07:53 36.7 C 88 17 111/81 H 99 02/17/21 00:48 36.5 C 80 17 88/67 L 98 Intake & Output: Intake & Output 02/14/21 02/15/21 02/16/21 02/17/21 23:59 23:59 23:59 23:59 Intake Total 1330 1280 1440 240 Output Total 2700 2350 2175 825 Balance -1370 -1070 -735 -585 - Objective General Appearance: positive: No acute distress, Alert Eyes Bilateral: positive: Normal inspection, PERRL ENT: positive: ENT inspection nml, No signs of dehydration Respiratory: positive: Chest non-tender, No respiratory distress, Breath sounds nml Cardiovascular: positive: Regular rate & rhythm Peripheral Pulses: 2+ Dorsalis pedis (R), 2+ Dorsalis pedis (L) Abdomen: positive: Non-tender, No organomegaly, Nml bowel sounds, No distention Skin: positive: Color nml Extremities: positive: Non-tender, Full ROM, Nml appearance Neurologic/Psychiatric: positive: Oriented x3 - Lab Results Fish Bones: 01/30/21 14:55 01/30/21 14:55 Assessment/Plan - Problem List (1) Acute on chronic systolic and diastolic heart failure, NYHA class 4 Impression: 02/17 Stable. No bradycardia overnight. HR 65-88 in the past 24 hours. One episode of hypotension at midnight, 88/67, back to 111/81 this morning. Continuing with comfort focused care. 02/16 Stable. HR 47 this morning, 63 on recheck. Denied chest pain, palpitations or dizziness. BP was 87/71 on the right and 91/64 on the left. On recheck it was 124/98. On chart review it looks like his Digoxin was decreased on 02/14 when similar bradycardia happened. He is now back up to the 60s with appropriate blood pressure so given the discharge plan of continuing comfort care will plan to continue to monitor. If he continues to have bradycardic episodes we may need to stop the Digoxin all together. Will continue to monitor. Pt has EF <20% and congestive pulmonary edema. Continue comfort focused care and follow up with hospice after DC. (2) Peripheral vascular disease Impression: Stable. He reports continued peripheral neuropathy but good control with his Gabapentin and Oxycodone. No change made to the current plan. (3) COPD (chronic obstructive pulmonary disease) with emphysema Impression: Stable, not currently in exacerbation. Qualifiers: Emphysema type: unspecified Qualified Code(s): J43.9 - Emphysema, unspecified (4) Paroxysmal atrial fibrillation Impression: Stable. Heart rates since a brief episode of 47 early yesterday have been 60s- 91. Regular rhythm on auscultation. Denies chest pain, palpitations, or dizziness. No change made to the current meds and will continue to monitor. (5) Hepatitis Impression: Stable. No change made to the current plan. (6) ESTEVAN (acute kidney injury) Impression: Resolved. (7) Cardiogenic shock Impression: Resolved. (8) Hyponatremia Impression: Resolved.
[2021-02-17] MEDS: GABAPENTIN 300 MG CAPSULE PO PRN ×2 (08:46→14:54)
[2021-02-17] MEDS: SODIUM CHLORIDE FLUSH 0.9% 10 ML SYRINGE IVP PRN (20:11)
[2021-02-17] MEDS: GABAPENTIN 300 MG CAPSULE PO SCH (20:11)
[2021-02-18] MEDS: SODIUM CHLORIDE FLUSH 0.9% 10 ML SYRINGE IVP SCH ×3 (02:44→21:07)
[2021-02-18] MEDS: oxyCODONE 5 MG TABLET PO PRN ×2 (04:54→09:14)
--- NOTE | 2021-02-18 06:01 | PROVIDER PROGRESS NOTE ---
Assessment/Plan - Problem List (1) Acute on chronic systolic and diastolic heart failure, NYHA class 4 Assessment/Plan: Stable. No acute distress today, no peripheral edema or dyspnea. He is hopeful he will be able to discharge to [facility] later this week if they accept him. Continue medical management. (2) Peripheral vascular disease Impression: Stable. DP pulses palpable, no lower extremity or pedal edema. Skin is dusky and cool, peeling on the plantar feet. C/o neuropathic pain in his feet, unchanged from baseline. Continue medical management. (3) COPD (chronic obstructive pulmonary disease) with emphysema Impression: Stable, no exacerbation currently. Denies dyspnea. Continue medical management. Qualifiers: Emphysema type: unspecified Qualified Code(s): J43.9 - Emphysema, unspecified (4) Paroxysmal atrial fibrillation Impression: Stable. HR has been 80s-low 90s. Continue current medication. (5) Hepatitis Impression: Stable. Continuing current medical management/comfort care. (6) ESTEVAN (acute kidney injury) Impression: Resolved. (7) Cardiogenic shock Impression: Resolved. (8) Hyponatremia Impression: Resolved. - Current Meds Current Meds: Current Medications Generic Name Dose Route Start Last Admin Trade Name Freq PRN Reason Stop Dose Admin Digoxin 62.5 mcg 02/14/21 11:00 02/17/21 07:59 Digoxin 125 Mcg Tablet PO 62.5 mcg DAILY YONATHAN Administration Furosemide 40 mg 02/14/21 11:44 02/17/21 07:58 Furosemide 40 Mg Tablet PO 40 mg DAILY YONATHAN Administration Gabapentin 300 mg 01/31/21 07:44 02/17/21 14:54 Gabapentin 300 Mg Capsule PO 300 mg 0800,1400 PRN Administration LEG PAIN OR ANXIETY Gabapentin 600 mg 01/31/21 21:00 02/17/21 20:11 Gabapentin 300 Mg Capsule PO 600 mg QPM YONATHAN Administration Heparin Sodium (Beef Lung) 30 - 50 unit 01/27/21 09:45 02/17/21 20:11 Heparin Flush 50 Units/5 Ml Syringe IVP 150 unit PRN PRN Administration Port Protocol (<24 hours) Lisinopril 2.5 mg 02/14/21 11:42 02/17/21 07:57 Lisinopril 5 Mg Tablet PO 2.5 mg DAILY YONATHAN Administration Metoprolol Succinate 25 mg 02/14/21 10:35 02/17/21 07:58 Metoprolol Succinate 25 Mg Tablet PO 25 mg DAILY YONATHAN Administration Morphine Sulfate 1 mg 01/18/21 21:45 02/02/21 14:58 Morphine 2 Mg/Ml Carpuject IVP 1 mg Q4HR PRN Administration PAIN Multivitamins 1 tab 01/19/21 08:00 02/17/21 07:58 Multivitamin Tablet PO 1 tab DAILYWM YONATHAN Administration Nicotine 1 patch 02/01/21 18:28 02/17/21 07:59 Nicotine 14 Mg Patch TOP Not Given DAILY YONATHAN Ondansetron HCl 4 mg 01/18/21 18:18 01/19/21 23:45 Ondansetron 4 Mg/2 Ml Vial IVP 4 mg Q6HR PRN Administration Nausea / Vomiting Oxycodone HCl 5 mg 01/18/21 18:18 02/18/21 04:54 Oxycodone 5 Mg Tablet PO 5 mg Q4HR PRN Administration Pain 5 to 7 Sodium Chloride 10 ml 01/18/21 18:18 02/17/21 20:11 Sodium Chloride Flush 0.9% 10 Ml Syringe IVP 10 ml PRN PRN Administration NEEDED PER PROVIDER ORDERS Sodium Chloride 10 ml 01/19/21 01:00 02/18/21 02:44 Sodium Chloride Flush 0.9% 10 Ml Syringe IVP 10 ml 0100,0900,1700 YONATHAN Administration Sodium Chloride 20 ml 01/31/21 09:19 02/15/21 23:44 Sodium Chloride Flush 0.9% 10 Ml Syringe IVP 20 ml PRN PRN Administration After Blood Draw Spironolactone 25 mg 02/14/21 11:44 02/17/21 07:58 Spironolactone 25 Mg Tablet PO 25 mg DAILY YONATHAN Administration Thiamine HCl 100 mg 01/29/21 10:30 02/17/21 07:59 Thiamine 100 Mg Tablet PO 100 mg DAILY YONATHAN Administration - Lab Result Fish Bone Diagrams: 01/30/21 14:55 01/30/21 14:55 Subjective - Subjective Patient Reports: Other (Resting comfortably in bed. Denied any complaints.) Objective Vital Signs: Vital Signs - 24 hr 02/17/21 02/17/21 02/17/21 07:53 14:00 16:08 Temperature 36.7 C 36.7 C 36.5 C Heart Rate [ 88 85 91 Brachial] Respiratory 17 18 20 Rate Blood Pressure 111/81 H 90/52 L 92/67 [Right Brachial artery] O2 Saturation 99 98 96 02/18/21 00:00 Temperature 36.4 C L Heart Rate [ 82 Brachial] Respiratory 17 Rate Blood Pressure 100/58 L [Right Brachial artery] O2 Saturation 95 Oxygen O2 Source Room air I&O (Last 24 Hrs): Intake and Output Totals x24h 02/16/21 02/17/21 02/18/21 23:59 23:59 23:59 Intake Total 1440 1040 300 Output Total 2172 8867 1100 Balance -297 -935 -800 Comments/Notes: General: Alert, Oriented x3, No acute distress HEENT: PERRLA, EOMI Neck: Supple, No JVD Neuro: Alert, Oriented Times 3 Cardiovascular: Regular rate Respiratory: Chest non-tender, No respiratory distress, Breath sounds nml Abdomen: Normal bowel sounds, Soft, No tenderness, No masses Extremities: No clubbing, No cyanosis, Other (Trace to +1 edema) - Results Results: Laboratory Results WBC 9.6 x10^3/uL (4.8-10.8) 01/30/21 14:55 RBC 4.04 10^6/uL (4.70-6.10) L 01/30/21 14:55 Hgb 13.0 g/dL (14.0-18.0) L 01/30/21 14:55 Hct 40.3 % (42.0-52.0) L 01/30/21 14:55 MCV 99.8 fL (80.0-94.0) H 01/30/21 14:55 MCH 32.2 pg (27.0-31.0) H 01/30/21 14:55 MCHC 32.3 g/dL (32.0-36.0) 01/30/21 14:55 RDW 14.9 % (12.0-15.0) 01/30/21 14:55 Plt Count 211 10^3/uL (130-450) 01/30/21 14:55 MPV 10.9 fL (7.4-11.4) 01/30/21 14:55 Neut # (Auto) 7.0 10^3/uL (1.5-6.6) H 01/30/21 14:55 Lymph # (Auto) 1.4 10^3/uL (1.5-3.5) L 01/30/21 14:55 [place] # (Auto) 0.9 10^3/uL (0.0-1.0) 01/30/21 14:55 Eos # (Auto) 0.2 10^3/uL (0.0-0.7) 01/30/21 14:55 Baso # (Auto) 0.1 10^3/uL (0.0-0.1) 01/30/21 14:55 Absolute Nucleated RBC 0.00 x10^3/uL 01/30/21 14:55 Total Counted 100 01/24/21 04:26 Band Neuts % (Manual) 1 % (0-10) 01/24/21 04:26 Reactive Lymphs % (Man) 3 % 01/18/21 16:51 Abnorm Lymph % (Manual) 0 % 01/24/21 04:26 Nucleated RBC % 0.0 /100WBC 01/30/21 14:55 Neutrophils # (Manual) 6.9 10^3/uL (1.5-6.6) H 01/24/21 04:26 Lymphocytes # (Manual) 0.5 10^3/uL (1.5-3.5) L 01/24/21 04:26 Monocytes # (Manual) 1.5 10^3/uL (0.0-1.0) H 01/24/21 04:26 Eosinophils # (Manual) 0.0 10^3/uL (0-0.7) 01/24/21 04:26 Basophils # (Manual) 0.0 10^3/uL (0-0.1) 01/24/21 04:26 Differential Comment MANUAL DIFFERENTIAL 01/24/21 04:26 Manual Slide Review Indicated 01/24/21 04:26 WBC Morphology NORMAL APPEARANCE (NORMAL) 01/23/21 08:40 Platelet Estimate DECREASED (<130,000) (NORMAL) 01/24/21 04:26 Platelet Morphology NORMAL APPEARANCE (NORMAL) 01/23/21 08:40 RBC Morph Micro Appear NORMAL APPEARANCE (NORMAL) 01/23/21 08:40 PT 21.2 secs (9.9-12.6) H 01/21/21 14:51 INR 1.9 (0.8-1.2) H 01/21/21 14:51 Bld Gas Analysis Time 1311 01/21/21 13:06 Sample Site RIGHT RADIAL 01/21/21 13:06 ABG pH 7.44 (7.35-7.45) 01/21/21 13:06 ABG pCO2 30 mmHg (34-45) L 01/21/21 13:06 ABG pO2 92 mmHg (80-100) 01/21/21 13:06 ABG HCO3 19.6 mmol/L (22.0-26.0) L 01/21/21 13:06 ABG Total CO2 20.5 MMOL/L (21.0-29.0) L 01/21/21 13:06 ABG O2 Saturation 97 % (94-98) 01/21/21 13:06 ABG Base Excess -3.4 mmol/L (-2.0-3.0) L 01/21/21 13:06 Honorio Test POSITIVE 01/21/21 13:06 VBG pH 7.406 (7.31-7.41) 01/24/21 07:51 Ionized Calcium 1.06 mmol/L (1.15-1.33) L 01/24/21 07:51 O2 Delivery Device NON REBREATHER MASK 01/21/21 13:06 O2 Liters/Min 15.00 LPM 01/21/21 13:06 FiO2 100.00 01/21/21 13:06 Sodium 136 mmol/L (135-145) 01/30/21 14:55 Potassium 4.4 mmol/L (3.5-5.0) 01/30/21 14:55 Chloride 101 mmol/L (101-111) 01/30/21 14:55 Carbon Dioxide 25 mmol/L (21-32) 01/30/21 14:55 Anion Gap 10.0 (6-13) 01/30/21 14:55 BUN 17 mg/dL (6-20) 01/30/21 14:55 Creatinine 1.1 mg/dL (0.6-1.2) 01/30/21 14:55 Estimated GFR (MDRD) 69 (>89) L 01/30/21 14:55 Glucose 87 mg/dL (70-100) 01/30/21 14:55 Lactic Acid 2.0 mmol/L (0.5-2.2) 01/22/21 19:02 Calcium 8.3 mg/dL (8.5-10.3) L 01/30/21 14:55 Phosphorus 3.3 mg/dL (2.5-4.6) 01/24/21 04:26 Magnesium 1.8 mg/dL (1.7-2.8) 01/24/21 04:26 Total Bilirubin 2.1 mg/dL (0.2-1.0) H 01/28/21 05:15 Direct Bilirubin 0.9 mg/dL (0.1-0.5) H 01/23/21 04:35 AST 144 IU/L (10-42) H 01/28/21 05:15 ALT 256 IU/L (10-60) H 01/28/21 05:15 Alkaline Phosphatase 103 IU/L (42-121) 01/28/21 05:15 Troponin I High Sens 234.5 ng/L (2.3-19.7) H* 01/22/21 19:02 B-Natriuretic Peptide 4949.00 pg/mL (5-100) H 01/25/21 07:55 Total Protein 5.2 g/dL (6.7-8.2) L 01/28/21 05:15 Albumin 2.8 g/dL (3.2-5.5) L 01/28/21 05:15 Globulin 2.4 g/dL (2.1-4.2) 01/28/21 05:15 Albumin/Globulin Ratio 1.2 (1.0-2.2) 01/28/21 05:15 TSH 7.65 uIU/mL (0.34-5.60) H 01/23/21 04:35 Nasal Adenovirus (PCR) NOT DETECTED 01/18/21 18:22 Nasal B. parapertussis DNA (PCR) NOT DETECTED 01/18/21 18:22 Nasal Coronavir 229E PCR NOT DETECTED 01/18/21 18:22 Nasal Coronavir HKU1 PCR NOT DETECTED 01/18/21 18:22 Nasal Coronavir NL63 PCR NOT DETECTED 01/18/21 18:22 Nasal Coronavir OC43 PCR NOT DETECTED 01/18/21 18:22 Nasal Enterovir/Rhinovir PCR NOT DETECTED 01/18/21 18:22 Nasal Influenza B PCR NOT DETECTED 01/18/21 18:22 Nasal Influenza A PCR NOT DETECTED 01/18/21 18:22 Nasal Parainfluen 1 PCR NOT DETECTED 01/18/21 18:22 Nasal Parainfluen 2 PCR NOT DETECTED 01/18/21 18:22 Nasal Parainfluen 3 PCR NOT DETECTED 12 18:22 Nasal Parainfluen 4 PCR NOT DETECTED 01/18/21 18:22 Nasal RSV (PCR) NOT DETECTED 01/18/21 18:22 Nasal Screen MRSA (PCR) NEGATIVE (NEGATIVE) 01/21/21 12:45 Nasal B.pertussis DNA PCR NOT DETECTED 01/18/21 18:22 Nasal C.pneumoniae (PCR) NOT DETECTED 01/18/21 18:22 [place] Human Metapneumo PCR NOT DETECTED 01/18/21 18:22 Nasal M.pneumoniae (PCR) NOT DETECTED 01/18/21 18:22 Nasal SARS-CoV-2 (PCR) NOT DETECTED 01/18/21 18:22 Last Dose Date 01/26/21 01/27/21 06:25 Last Dose Time 1016 01/27/21 06:25 Digoxin 0.2 ng/mL 01/27/21 06:25 Ethyl Alcohol < 5.0 mg/dL 01/18/21 16:51 Hepatitis A IgM Ab NON-REACTIVE (NON-REACTIVE) 01/19/21 06:19 Hep Bs Antigen NON-REACTIVE (NON-REACTIVE) 01/19/21 06:19 Hep B Core IgM Ab NON-REACTIVE (NON-REACTIVE) 01/19/21 06:19 Hepatitis C Antibody REACTIVE (NON-REACTIVE) A 01/19/21 06:19 Hep C Ab Signal/Cutoff 6.50 (<1.00) H 01/19/21 06:19 - Procedures Procedures: Procedures COLONOSCOPY (08/16/13)
[2021-02-18] MEDS: MULTIVITAMIN TABLET PO SCH (09:14)
[2021-02-18] MEDS: THIAMINE 100 MG TABLET PO SCH (09:15)
[2021-02-18] MEDS: GABAPENTIN 300 MG CAPSULE PO PRN (09:16)
[2021-02-18] MEDS: NICOTINE 14 MG PATCH TOP SCH (10:01)
[2021-02-18] MEDS: METOPROLOL SUCCINATE 25 MG TABLET PO SCH (10:01)
[2021-02-18] MEDS: DIGOXIN 125 MCG TABLET PO SCH (10:01)
[2021-02-18] MEDS: lisinopriL 5 MG TABLET PO SCH (10:01)
[2021-02-18] MEDS: SPIRONOLACTONE 25 MG TABLET PO SCH (10:04)
[2021-02-18] MEDS: FUROSEMIDE 40 MG TABLET PO SCH (10:04)
[2021-02-18] MEDS: GABAPENTIN 300 MG CAPSULE PO SCH (21:07)
[2021-02-19] MEDS: SODIUM CHLORIDE FLUSH 0.9% 10 ML SYRINGE IVP SCH ×3 (01:45→20:52)
[2021-02-19] MEDS: oxyCODONE 5 MG TABLET PO PRN ×2 (10:38→14:53)
[2021-02-19] MEDS: THIAMINE 100 MG TABLET PO SCH (10:38)
[2021-02-19] MEDS: GABAPENTIN 300 MG CAPSULE PO PRN ×2 (10:38→14:54)
[2021-02-19] MEDS: NICOTINE 14 MG PATCH TOP SCH (10:41)
[2021-02-19] MEDS: MULTIVITAMIN TABLET PO SCH (10:41)
[2021-02-19] MEDS: FUROSEMIDE 40 MG TABLET PO SCH (10:42)
[2021-02-19] MEDS: SPIRONOLACTONE 25 MG TABLET PO SCH (10:42)
[2021-02-19] MEDS: lisinopriL 5 MG TABLET PO SCH (10:51)
[2021-02-19] MEDS: METOPROLOL SUCCINATE 25 MG TABLET PO SCH (11:12)
[2021-02-19] MEDS: DIGOXIN 125 MCG TABLET PO SCH (11:12)
--- NOTE | 2021-02-19 11:34 | PROVIDER PROGRESS NOTE ---
Assessment/Plan - Problem List (1) Acute on chronic systolic and diastolic heart failure, NYHA class 4 Assessment/Plan: 02/19 stable, pt report he had albuterol INH PRN before, he hope to have it again. pt had vaccinated with Covid 19, plan to d/c to [facility] 02/28 for hospice care, per mental health social worker's report. 02/15 HR is 73, BP is 102/76, improved and pt has No complaints, hemodynamic stable. Continue digoxin, metoprolol, Lasix, spironolactone and Lisinopril. 02/14 pt's HR is down to 41 and low blood pressure. we will try to reduce Digoxin and metoprolol dosage and vital monitor. will continue Lasix, spironolactone and low dosage of Lisinopril. pt has EF<20% and congestive pulmonary edema. continue comfortable focus care and followup with hospice care after d/c (2) Peripheral vascular disease Impression: 02/19 pt report he has slight more pain on his bilateral feet, pt had PRN oxycodone and Gabapentin, will continue, will monitor closely Stable. pt report Gabapentin and oxycodon are at good control to his peripheral neuropathy. continue comfortable focus care and followup with hospice care after d/c (3) COPD (chronic obstructive pulmonary disease) with emphysema Stable, no exacerbation currently. (4) Paroxysmal atrial fibrillation Impression: pt has bradycardia, HR is down to 41. reduce his digoxin and metoprolol dosage and keep vital monitor, focus on comfortable care. (5) Hepatitis Impression: Stable. Continuing current medical management/comfort care. (6) ESTEVAN (acute kidney injury) Impression: Resolved. (7) Cardiogenic shock Impression: Resolved. (8) Hyponatremia Impression: Resolved. - Current Meds Current Meds: Current Medications Generic Name Dose Route Start Last Admin Trade Name Freq PRN Reason Stop Dose Admin Digoxin 62.5 mcg 02/14/21 11:00 02/19/21 11:12 Digoxin 125 Mcg Tablet PO Not Given DAILY YONATHAN Furosemide 40 mg 02/14/21 11:44 02/19/21 10:42 Furosemide 40 Mg Tablet PO 40 mg DAILY YONATHAN Administration Gabapentin 300 mg 01/31/21 07:44 02/19/21 10:38 Gabapentin 300 Mg Capsule PO 300 mg 0800,1400 PRN Administration LEG PAIN OR ANXIETY Gabapentin 600 mg 01/31/21 21:00 02/18/21 21:07 Gabapentin 300 Mg Capsule PO 600 mg QPM YONATHAN Administration Heparin Sodium (Beef Lung) 30 - 50 unit 01/27/21 09:45 02/17/21 20:11 Heparin Flush 50 Units/5 Ml Syringe IVP 150 unit PRN PRN Administration Port Protocol (<24 hours) Lisinopril 2.5 mg 02/14/21 11:42 02/19/21 10:51 Lisinopril 5 Mg Tablet PO 2.5 mg DAILY YONATHAN Administration Metoprolol Succinate 25 mg 02/14/21 10:35 02/19/21 11:12 Metoprolol Succinate 25 Mg Tablet PO Not Given DAILY YONATHAN Morphine Sulfate 1 mg 01/18/21 21:45 02/02/21 14:58 Morphine 2 Mg/Ml Carpuject IVP 1 mg Q4HR PRN Administration PAIN Multivitamins 1 tab 01/19/21 08:00 02/19/21 10:41 Multivitamin Tablet PO 1 tab DAILYWM YONATHAN Administration Nicotine 1 patch 02/01/21 18:28 02/19/21 10:41 Nicotine 14 Mg Patch TOP 1 patch DAILY YONATHAN Administration Ondansetron HCl 4 mg 01/18/21 18:18 01/19/21 23:45 Ondansetron 4 Mg/2 Ml Vial IVP 4 mg Q6HR PRN Administration Nausea / Vomiting Oxycodone HCl 5 mg 01/18/21 18:18 02/19/21 10:38 Oxycodone 5 Mg Tablet PO 5 mg Q4HR PRN Administration Pain 5 to 7 Sodium Chloride 10 ml 01/18/21 18:18 02/17/21 20:11 Sodium Chloride Flush 0.9% 10 Ml Syringe IVP 10 ml PRN PRN Administration NEEDED PER PROVIDER ORDERS Sodium Chloride 10 ml 01/19/21 01:00 02/19/21 10:42 Sodium Chloride Flush 0.9% 10 Ml Syringe IVP 10 ml 0100,0900,1700 YONATHAN Administration Sodium Chloride 20 ml 01/31/21 09:19 02/15/21 23:44 Sodium Chloride Flush 0.9% 10 Ml Syringe IVP 20 ml PRN PRN Administration After Blood Draw Spironolactone 25 mg 02/14/21 11:44 02/19/21 10:42 Spironolactone 25 Mg Tablet PO 25 mg DAILY YONATHAN Administration Thiamine HCl 100 mg 01/29/21 10:30 02/19/21 10:38 Thiamine 100 Mg Tablet PO 100 mg DAILY YONATHAN Administration - Lab Result Fish Bone Diagrams: 01/30/21 14:55 01/30/21 14:55 Subjective - Subjective Patient Reports: Resting Comfortably Objective Vital Signs: Vital Signs - 24 hr 02/18/21 02/18/21 02/19/21 15:36 23:45 07:25 Temperature 36.4 C L 36.4 C L 36.8 C Heart Rate [ 87 43 L 82 Brachial] Respiratory 16 16 18 Rate Blood Pressure 91/62 96/77 117/90 H [Right Brachial artery] O2 Saturation 97 96 02/19/21 10:45 Temperature Heart Rate [ 50 L Brachial] Respiratory Rate Blood Pressure 103/62 [Right Brachial artery] O2 Saturation Oxygen O2 Source Room air I&O (Last 24 Hrs): Intake and Output Totals x24h 02/17/21 02/18/21 02/19/21 23:59 23:59 23:59 Intake Total 1040 1300 635 Output Total 1925 3575 1300 Balance -885 -2275 -665 General: Alert, Oriented x3, Cooperative, No acute distress HEENT: Atraumatic Neck: Supple Lymphatic: no adenopathy Neuro: Alert, Non Focal, Oriented Times 3 Cardiovascular: Regular rate, Normal S1, Normal S2 Respiratory: Chest non-tender, No respiratory distress Abdomen: Normal bowel sounds, Soft Extremities: Normal pulses - Results Results: Laboratory Results WBC 9.6 x10^3/uL (4.8-10.8) 01/30/21 14:55 RBC 4.04 10^6/uL (4.70-6.10) L 01/30/21 14:55 Hgb 13.0 g/dL (14.0-18.0) L 01/30/21 14:55 Hct 40.3 % (42.0-52.0) L 01/30/21 14:55 MCV 99.8 fL (80.0-94.0) H 01/30/21 14:55 MCH 32.2 pg (27.0-31.0) H 01/30/21 14:55 MCHC 32.3 g/dL (32.0-36.0) 01/30/21 14:55 RDW 14.9 % (12.0-15.0) 01/30/21 14:55 Plt Count 211 10^3/uL (130-450) 01/30/21 14:55 MPV 10.9 fL (7.4-11.4) 01/30/21 14:55 Neut # (Auto) 7.0 10^3/uL (1.5-6.6) H 01/30/21 14:55 Lymph # (Auto) 1.4 10^3/uL (1.5-3.5) L 01/30/21 14:55 [place] # (Auto) 0.9 10^3/uL (0.0-1.0) 01/30/21 14:55 Eos # (Auto) 0.2 10^3/uL (0.0-0.7) 01/30/21 14:55 Baso # (Auto) 0.1 10^3/uL (0.0-0.1) 01/30/21 14:55 Absolute Nucleated RBC 0.00 x10^3/uL 01/30/21 14:55 Total Counted 100 01/24/21 04:26 Band Neuts % (Manual) 1 % (0-10) 01/24/21 04:26 Reactive Lymphs % (Man) 3 % 01/18/21 16:51 Abnorm Lymph % (Manual) 0 % 01/24/21 04:26 Nucleated RBC % 0.0 /100WBC 01/30/21 14:55 Neutrophils # (Manual) 6.9 10^3/uL (1.5-6.6) H 01/24/21 04:26 Lymphocytes # (Manual) 0.5 10^3/uL (1.5-3.5) L 01/24/21 04:26 Monocytes # (Manual) 1.5 10^3/uL (0.0-1.0) H 01/24/21 04:26 Eosinophils # (Manual) 0.0 10^3/uL (0-0.7) 01/24/21 04:26 Basophils # (Manual) 0.0 10^3/uL (0-0.1) 01/24/21 04:26 Differential Comment MANUAL DIFFERENTIAL 01/24/21 04:26 Manual Slide Review Indicated 01/24/21 04:26 WBC Morphology NORMAL APPEARANCE (NORMAL) 01/23/21 08:40 Platelet Estimate DECREASED (<130,000) (NORMAL) 01/24/21 04:26 Platelet Morphology NORMAL APPEARANCE (NORMAL) 01/23/21 08:40 RBC Morph Micro Appear NORMAL APPEARANCE (NORMAL) 01/23/21 08:40 PT 21.2 secs (9.9-12.6) H 01/21/21 14:51 INR 1.9 (0.8-1.2) H 01/21/21 14:51 Bld Gas Analysis Time 1311 01/21/21 13:06 Sample Site RIGHT RADIAL 01/21/21 13:06 ABG pH 7.44 (7.35-7.45) 01/21/21 13:06 ABG pCO2 30 mmHg (34-45) L 01/21/21 13:06 ABG pO2 92 mmHg (80-100) 01/21/21 13:06 ABG HCO3 19.6 mmol/L (22.0-26.0) L 01/21/21 13:06 ABG Total CO2 20.5 MMOL/L (21.0-29.0) L 01/21/21 13:06 ABG O2 Saturation 97 % (94-98) 01/21/21 13:06 ABG Base Excess -3.4 mmol/L (-2.0-3.0) L 01/21/21 13:06 Honorio Test POSITIVE 01/21/21 13:06 VBG pH 7.406 (7.31-7.41) 01/24/21 07:51 Ionized Calcium 1.06 mmol/L (1.15-1.33) L 01/24/21 07:51 O2 Delivery Device NON REBREATHER MASK 01/21/21 13:06 O2 Liters/Min 15.00 LPM 01/21/21 13:06 FiO2 100.00 01/21/21 13:06 Sodium 136 mmol/L (135-145) 01/30/21 14:55 Potassium 4.4 mmol/L (3.5-5.0) 01/30/21 14:55 Chloride 101 mmol/L (101-111) 01/30/21 14:55 Carbon Dioxide 25 mmol/L (21-32) 01/30/21 14:55 Anion Gap 10.0 (6-13) 01/30/21 14:55 BUN 17 mg/dL (6-20) 01/30/21 14:55 Creatinine 1.1 mg/dL (0.6-1.2) 01/30/21 14:55 Estimated GFR (MDRD) 69 (>89) L 01/30/21 14:55 Glucose 87 mg/dL (70-100) 01/30/21 14:55 Lactic Acid 2.0 mmol/L (0.5-2.2) 01/22/21 19:02 Calcium 8.3 mg/dL (8.5-10.3) L 01/30/21 14:55 Phosphorus 3.3 mg/dL (2.5-4.6) 01/24/21 04:26 Magnesium 1.8 mg/dL (1.7-2.8) 01/24/21 04:26 Total Bilirubin 2.1 mg/dL (0.2-1.0) H 01/28/21 05:15 Direct Bilirubin 0.9 mg/dL (0.1-0.5) H 01/23/21 04:35 AST 144 IU/L (10-42) H 01/28/21 05:15 ALT 256 IU/L (10-60) H 01/28/21 05:15 Alkaline Phosphatase 103 IU/L (42-121) 01/28/21 05:15 Troponin I High Sens 234.5 ng/L (2.3-19.7) H* 01/22/21 19:02 B-Natriuretic Peptide 4949.00 pg/mL (5-100) H 01/25/21 07:55 Total Protein 5.2 g/dL (6.7-8.2) L 01/28/21 05:15 Albumin 2.8 g/dL (3.2-5.5) L 01/28/21 05:15 Globulin 2.4 g/dL (2.1-4.2) 01/28/21 05:15 Albumin/Globulin Ratio 1.2 (1.0-2.2) 01/28/21 05:15 TSH 7.65 uIU/mL (0.34-5.60) H 01/23/21 04:35 Nasal Adenovirus (PCR) NOT DETECTED 01/18/21 18:22 Nasal B. parapertussis DNA (PCR) NOT DETECTED 01/18/21 18:22 Nasal Coronavir 229E PCR NOT DETECTED 01/18/21 18:22 Nasal Coronavir HKU1 PCR NOT DETECTED 01/18/21 18:22 Nasal Coronavir NL63 PCR NOT DETECTED 01/18/21 18:22 Nasal Coronavir OC43 PCR NOT DETECTED 01/18/21 18:22 Nasal Enterovir/Rhinovir PCR NOT DETECTED 01/18/21 18:22 Nasal Influenza B PCR NOT DETECTED 01/18/21 18:22 Nasal Influenza A PCR NOT DETECTED 01/18/21 18:22 Nasal Parainfluen 1 PCR NOT DETECTED 01/18/21 18:22 Nasal Parainfluen 2 PCR NOT DETECTED 01/18/21 18:22 Nasal Parainfluen 3 PCR NOT DETECTED 01/18/21 18:22 Nasal Parainfluen 4 PCR NOT DETECTED 01/18/21 18:22 Nasal RSV (PCR) NOT DETECTED 01/18/21 18:22 Nasal Screen MRSA (PCR) NEGATIVE (NEGATIVE) 01/21/21 12:45 Nasal B.pertussis DNA PCR NOT DETECTED 01/18/21 18:22 Nasal C.pneumoniae (PCR) NOT DETECTED 01/18/21 18:22 [place] Human Metapneumo PCR NOT DETECTED 01/18/21 18:22 Nasal M.pneumoniae (PCR) NOT DETECTED 01/18/21 18:22 Nasal SARS-CoV-2 (PCR) NOT DETECTED 01/18/21 18:22 Last Dose Date 01/26/21 01/27/21 06:25 Last Dose Time 1016 01/27/21 06:25 Digoxin 0.2 ng/mL 01/27/21 06:25 Ethyl Alcohol < 5.0 mg/dL 01/18/21 16:51 Hepatitis A IgM Ab NON-REACTIVE (NON-REACTIVE) 01/19/21 06:19 Hep Bs Antigen NON-REACTIVE (NON-REACTIVE) 01/19/21 06:19 Hep B Core IgM Ab NON-REACTIVE (NON-REACTIVE) 01/19/21 06:19 Hepatitis C Antibody REACTIVE (NON-REACTIVE) A 01/19/21 06:19 Hep C Ab Signal/Cutoff 6.50 (<1.00) H 01/19/21 06:19 - Procedures Procedures: Procedures COLONOSCOPY (08/16/13) ABX Reporting Has patient been on IV antibiotics over the past 48 hours?: No Current Medications - Current Medications Current Medications: Active Medications Albuterol (Albuterol Neb 2.5 Mg/3 Ml) 2.5 mg INH RTQ6H PRN PRN Reason: Shortness of Air/Wheezing Digoxin (Digoxin 125 Mcg Tablet) 62.5 mcg PO DAILY [facility] Last Admin: 02/19/21 11:12 Dose: Not Given Furosemide (Furosemide 40 Mg Tablet) 40 mg PO DAILY [facility] Last Admin: 02/19/21 10:42 Dose: 40 mg Gabapentin (Gabapentin 300 Mg Capsule) 300 mg PO 0800,1400 PRN PRN Reason: LEG PAIN OR ANXIETY Last Admin: 02/19/21 10:38 Dose: 300 mg Gabapentin (Gabapentin 300 Mg Capsule) 600 mg PO QPM [facility] Last Admin: 02/18/21 21:07 Dose: 600 mg Heparin Sodium (Beef Lung) (Heparin Flush 50 Units/5 Ml Syringe) 30 - 50 unit IVP PRN PRN PRN Reason: Port Protocol (<24 hours) Last Admin: 02/17/21 20:11 Dose: 150 unit Lisinopril (Lisinopril 5 Mg Tablet) 2.5 mg PO DAILY [facility] Last Admin: 02/19/21 10:51 Dose: 2.5 mg Metoprolol Succinate (Metoprolol Succinate 25 Mg Tablet) 25 mg PO DAILY [facility] Last Admin: 02/19/21 11:12 Dose: Not Given Morphine Sulfate (Morphine 2 Mg/Ml Carpuject) 1 mg IVP Q4HR PRN PRN Reason: PAIN Last Admin: 02/02/21 14:58 Dose: 1 mg Multivitamins (Multivitamin Tablet) 1 tab PO DAILYWM [facility] Last Admin: 02/19/21 10:41 Dose: 1 tab Nicotine (Nicotine 14 Mg Patch) 1 patch TOP DAILY [facility] Last Admin: 02/19/21 10:41 Dose: 1 patch Ondansetron HCl (Ondansetron 4 Mg/2 Ml Vial) 4 mg IVP Q6HR PRN PRN Reason: Nausea / Vomiting Last Admin: 01/19/21 23:45 Dose: 4 mg Oxycodone HCl (Oxycodone 5 Mg Tablet) 5 mg PO Q4HR PRN PRN Reason: Pain 5 to 7 Last Admin: 02/19/21 10:38 Dose: 5 mg Sodium Chloride (Sodium Chloride Flush 0.9% 10 Ml Syringe) 10 ml IVP PRN PRN PRN Reason: NEEDED PER PROVIDER ORDERS Last Admin: 02/17/21 20:11 Dose: 10 ml Sodium Chloride (Sodium Chloride Flush 0.9% 10 Ml Syringe) 10 ml IVP 0100,0900,1700 [facility] Last Admin: 02/19/21 10:42 Dose: 10 ml Sodium Chloride (Sodium Chloride Flush 0.9% 10 Ml Syringe) 20 ml IVP PRN PRN PRN Reason: After Blood Draw Last Admin: 02/15/21 23:44 Dose: 20 ml Spironolactone (Spironolactone 25 Mg Tablet) 25 mg PO DAILY [facility] Last Admin: 02/19/21 10:42 Dose: 25 mg Thiamine HCl (Thiamine 100 Mg Tablet) 100 mg PO DAILY [facility] Last Admin: 02/19/21 10:38 Dose: 100 mg Citalopram [CeleXA] 10 mg ORAL DAILY 09/15/20 Gabapentin [Neurontin] 300 mg PO 0800,1400 PRN 01/19/21 Gabapentin [Neurontin] 600 mg PO QPM 01/19/21 Metoprolol Succinate [Toprol Xl] 25 mg PO DAILY 01/19/21
[2021-02-19] MEDS ORDERED: ALBUTEROL NEB 2.5 MG/3 ML INH PRN (11:54)
[2021-02-19] MEDS ORDERED: ALBUTEROL NEB 2.5 MG/3 ML INH SCH (13:00)
[2021-02-19] MEDS: GABAPENTIN 300 MG CAPSULE PO SCH (20:52)
[2021-02-20] MEDS: SODIUM CHLORIDE FLUSH 0.9% 10 ML SYRINGE IVP SCH ×4 (01:11→23:57)
[2021-02-20 08:45] LABS: DIGOXIN < 0.2 ng/mL
[2021-02-20] MEDS: oxyCODONE 5 MG TABLET PO PRN ×3 (10:02→23:56)
[2021-02-20] MEDS: MULTIVITAMIN TABLET PO SCH (10:02)
[2021-02-20] MEDS: SPIRONOLACTONE 25 MG TABLET PO SCH (10:03)
[2021-02-20] MEDS: DIGOXIN 125 MCG TABLET PO SCH (10:03)
[2021-02-20] MEDS: GABAPENTIN 300 MG CAPSULE PO PRN (10:03)
[2021-02-20] MEDS: METOPROLOL SUCCINATE 25 MG TABLET PO SCH (10:03)
[2021-02-20] MEDS: FUROSEMIDE 40 MG TABLET PO SCH (10:04)
[2021-02-20] MEDS: NICOTINE 14 MG PATCH TOP SCH (10:04)
[2021-02-20] MEDS: lisinopriL 5 MG TABLET PO SCH (10:04)
[2021-02-20] MEDS: THIAMINE 100 MG TABLET PO SCH (10:04)
--- NOTE | 2021-02-20 10:46 | PROVIDER PROGRESS NOTE ---
Assessment/Plan - Problem List (1) Acute on chronic systolic and diastolic heart failure, NYHA class 4 Assessment/Plan: 02/20 pt report he feel good. his digoxin is less 0.2, pt has slight elevated HR, resume his full dosage of digoxin, continue metoprolol, Lasix, spironolactone and Lisinopril. consulted with social service agency director for placement 02/19 stable, pt report he had albuterol INH PRN before, he hope to have it again. pt had vaccinated with Covid 19, plan to d/c to [facility] for hospice care, per social service agency director's report. 02/15 HR is 73, BP is 102/76, improved and pt has No complaints, hemodynamic stable. Continue digoxin, metoprolol, Lasix, spironolactone and Lisinopril. 02/14 pt's HR is down to 41 and low blood pressure. we will try to reduce Digoxin and metoprolol dosage and vital monitor. will continue Lasix, spironolactone and low dosage of Lisinopril. pt has EF<20% and congestive pulmonary edema. continue comfortable focus care and followup with hospice care after d/c (2) Peripheral vascular disease Impression: 02/20, Patient has no complaints, his pain is under good control 02/19 pt report he has slight more pain on his bilateral feet, pt had PRN oxycodone and Gabapentin, will continue, will monitor closely Stable. pt report Gabapentin and oxycodon are at good control to his peripheral neuropathy. continue comfortable focus care and followup with hospice care after d/c (3) COPD (chronic obstructive pulmonary disease) with emphysema Stable, no exacerbation currently. (4) Paroxysmal atrial fibrillation Impression: pt has bradycardia, HR is down to 41. reduce his digoxin and metoprolol dosage and keep vital monitor, focus on comfortable care. (5) Hepatitis Impression: Stable and reactive, Continuing current medical management/comfort care. (6) ESTEVAN (acute kidney injury) Impression: Resolved. (7) Cardiogenic shock Impression: Resolved. (8) Hyponatremia Impression: Resolved. - Current Meds Current Meds: Current Medications Generic Name Dose Route Start Last Admin Trade Name Freq PRN Reason Stop Dose Admin Digoxin 125 mcg 02/20/21 09:00 02/20/21 10:03 Digoxin 125 Mcg Tablet PO 125 mcg DAILY YONATHAN Administration Furosemide 40 mg 02/14/21 11:44 02/20/21 10:04 Furosemide 40 Mg Tablet PO 40 mg DAILY YONATHAN Administration Gabapentin 300 mg 01/31/21 07:44 02/20/21 10:03 Gabapentin 300 Mg Capsule PO 300 mg 0800,1400 PRN Administration LEG PAIN OR ANXIETY Gabapentin 600 mg 01/31/21 21:00 02/19/21 20:52 Gabapentin 300 Mg Capsule PO 600 mg QPM YONATHAN Administration Heparin Sodium (Beef Lung) 30 - 50 unit 01/27/21 09:45 02/19/21 20:52 Heparin Flush 50 Units/5 Ml Syringe IVP 150 unit PRN PRN Administration Port Protocol (<24 hours) Lisinopril 2.5 mg 02/14/21 11:42 02/20/21 10:04 Lisinopril 5 Mg Tablet PO 2.5 mg DAILY YONATHAN Administration Metoprolol Succinate 25 mg 02/14/21 10:35 02/20/21 10:03 Metoprolol Succinate 25 Mg Tablet PO 25 mg DAILY YONATHAN Administration Morphine Sulfate 1 mg 01/18/21 21:45 02/02/21 14:58 Morphine 2 Mg/Ml Carpuject IVP 1 mg Q4HR PRN Administration PAIN Multivitamins 1 tab 01/19/21 08:00 02/20/21 10:02 Multivitamin Tablet PO 1 tab DAILYWM YONATHAN Administration Nicotine 1 patch 02/01/21 18:28 02/20/21 10:04 Nicotine 14 Mg Patch TOP Not Given DAILY YONATHAN Ondansetron HCl 4 mg 01/18/21 18:18 01/19/21 23:45 Ondansetron 4 Mg/2 Ml Vial IVP 4 mg Q6HR PRN Administration Nausea / Vomiting Oxycodone HCl 5 mg 01/18/21 18:18 02/20/21 10:02 Oxycodone 5 Mg Tablet PO 5 mg Q4HR PRN Administration Pain 5 to 7 Sodium Chloride 10 ml 01/18/21 18:18 02/17/21 20:11 Sodium Chloride Flush 0.9% 10 Ml Syringe IVP 10 ml PRN PRN Administration NEEDED PER PROVIDER ORDERS Sodium Chloride 10 ml 01/19/21 01:00 02/20/21 10:04 Sodium Chloride Flush 0.9% 10 Ml Syringe IVP 10 ml 0100,0900,1700 YONATHAN Administration Sodium Chloride 20 ml 01/31/21 09:19 02/15/21 23:44 Sodium Chloride Flush 0.9% 10 Ml Syringe IVP 20 ml PRN PRN Administration After Blood Draw Spironolactone 25 mg 02/14/21 11:44 02/20/21 10:03 Spironolactone 25 Mg Tablet PO 25 mg DAILY YONATHAN Administration Thiamine HCl 100 mg 01/29/21 10:30 02/20/21 10:04 Thiamine 100 Mg Tablet PO 100 mg DAILY YONATHAN Administration - Lab Result Fish Bone Diagrams: 01/30/21 14:55 01/30/21 14:55 - Additional Planning My Orders: My Active Orders 02/19/21 11:48 Nebulizer/MDI Tx. [RC] QID Resp Teach Nebulizer/MDI [RC] .ONCE 02/19/21 11:54 Albuterol 2.5 mg INH RTQ6H PRN 02/20/21 09:00 Digoxin [Lanoxin] 125 mcg PO DAILY Subjective - Subjective Patient Reports: Feeling Better, Resting Comfortably Objective Vital Signs: Vital Signs - 24 hr 02/19/21 02/19/21 02/19/21 10:45 20:39 23:25 Temperature 36.5 C 36.8 C Heart Rate [ Apical] Heart Rate [ 50 L 93 93 Brachial] Respiratory 17 16 Rate Blood Pressure 103/62 98/71 91/67 [Right Brachial artery] O2 Saturation 97 97 02/20/21 02/20/21 07:48 10:34 Temperature 36.8 C Heart Rate [ 65 Apical] Heart Rate [ 63 Brachial] Respiratory 18 18 Rate Blood Pressure 95/73 132/84 H [Right Brachial artery] O2 Saturation 98 97 Oxygen O2 Source Room air I&O (Last 24 Hrs): Intake and Output Totals x24h 02/18/21 02/19/21 02/20/21 23:59 23:59 23:59 Intake Total 1300 1585 540 Output Total 3575 2400 1275 Balance -2275 -815 -735 General: Alert, Oriented x3, Cooperative, No acute distress HEENT: Atraumatic Neck: Supple Lymphatic: no adenopathy Neuro: Alert, Non Focal, Oriented Times 3 Cardiovascular: Regular rate, Normal S1, Normal S2 Respiratory: Chest non-tender, No respiratory distress Abdomen: Normal bowel sounds, Soft Extremities: Normal pulses - Results Results: Laboratory Results WBC 9.6 x10^3/uL (4.8-10.8) 01/30/21 14:55 RBC 4.04 10^6/uL (4.70-6.10) L 01/30/21 14:55 Hgb 13.0 g/dL (14.0-18.0) L 01/30/21 14:55 Hct 40.3 % (42.0-52.0) L 01/30/21 14:55 MCV 99.8 fL (80.0-94.0) H 01/30/21 14:55 MCH 32.2 pg (27.0-31.0) H 01/30/21 14:55 MCHC 32.3 g/dL (32.0-36.0) 01/30/21 14:55 RDW 14.9 % (12.0-15.0) 01/30/21 14:55 Plt Count 211 10^3/uL (130-450) 01/30/21 14:55 MPV 10.9 fL (7.4-11.4) 01/30/21 14:55 Neut # (Auto) 7.0 10^3/uL (1.5-6.6) H 01/30/21 14:55 Lymph # (Auto) 1.4 10^3/uL (1.5-3.5) L 01/30/21 14:55 [place] # (Auto) 0.9 10^3/uL (0.0-1.0) 01/30/21 14:55 Eos # (Auto) 0.2 10^3/uL (0.0-0.7) 01/30/21 14:55 Baso # (Auto) 0.1 10^3/uL (0.0-0.1) 01/30/21 14:55 Absolute Nucleated RBC 0.00 x10^3/uL 01/30/21 14:55 Total Counted 100 01/24/21 04:26 Band Neuts % (Manual) 1 % (0-10) 01/24/21 04:26 Reactive Lymphs % (Man) 3 % 01/18/21 16:51 Abnorm Lymph % (Manual) 0 % 01/24/21 04:26 Nucleated RBC % 0.0 /100WBC 01/30/21 14:55 Neutrophils # (Manual) 6.9 10^3/uL (1.5-6.6) H 01/24/21 04:26 Lymphocytes # (Manual) 0.5 10^3/uL (1.5-3.5) L 01/24/21 04:26 Monocytes # (Manual) 1.5 10^3/uL (0.0-1.0) H 01/24/21 04:26 Eosinophils # (Manual) 0.0 10^3/uL (0-0.7) 01/24/21 04:26 Basophils # (Manual) 0.0 10^3/uL (0-0.1) 01/24/21 04:26 Differential Comment MANUAL DIFFERENTIAL 01/24/21 04:26 Manual Slide Review Indicated 01/24/21 04:26 WBC Morphology NORMAL APPEARANCE (NORMAL) 01/23/21 08:40 Platelet Estimate DECREASED (<130,000) (NORMAL) 01/24/21 04:26 Platelet Morphology NORMAL APPEARANCE (NORMAL) 01/23/21 08:40 RBC Morph Micro Appear NORMAL APPEARANCE (NORMAL) 01/23/21 08:40 PT 21.2 secs (9.9-12.6) H 01/21/21 14:51 INR 1.9 (0.8-1.2) H 01/21/21 14:51 Bld Gas Analysis Time 1311 01/21/21 13:06 Sample Site RIGHT RADIAL 01/21/21 13:06 ABG pH 7.44 (7.35-7.45) 01/21/21 13:06 ABG pCO2 30 mmHg (34-45) L 01/21/21 13:06 ABG pO2 92 mmHg (80-100) 01/21/21 13:06 ABG HCO3 19.6 mmol/L (22.0-26.0) L 01/21/21 13:06 ABG Total CO2 20.5 MMOL/L (21.0-29.0) L 01/21/21 13:06 ABG O2 Saturation 97 % (94-98) 01/21/21 13:06 ABG Base Excess -3.4 mmol/L (-2.0-3.0) L 01/21/21 13:06 Honorio Test POSITIVE 01/21/21 13:06 VBG pH 7.406 (7.31-7.41) 01/24/21 07:51 Ionized Calcium 1.06 mmol/L (1.15-1.33) L 01/24/21 07:51 O2 Delivery Device NON REBREATHER MASK 01/21/21 13:06 O2 Liters/Min 15.00 LPM 01/21/21 13:06 FiO2 100.00 01/21/21 13:06 Sodium 136 mmol/L (135-145) 01/30/21 14:55 Potassium 4.4 mmol/L (3.5-5.0) 01/30/21 14:55 Chloride 101 mmol/L (101-111) 01/30/21 14:55 Carbon Dioxide 25 mmol/L (21-32) 01/30/21 14:55 Anion Gap 10.0 (6-13) 01/30/21 14:55 BUN 17 mg/dL (6-20) 01/30/21 14:55 Creatinine 1.1 mg/dL (0.6-1.2) 01/30/21 14:55 Estimated GFR (MDRD) 69 (>89) L 01/30/21 14:55 Glucose 87 mg/dL (70-100) 01/30/21 14:55 Lactic Acid 2.0 mmol/L (0.5-2.2) 01/22/21 19:02 Calcium 8.3 mg/dL (8.5-10.3) L 01/30/21 14:55 Phosphorus 3.3 mg/dL (2.5-4.6) 01/24/21 04:26 Magnesium 1.8 mg/dL (1.7-2.8) 01/24/21 04:26 Total Bilirubin 2.1 mg/dL (0.2-1.0) H 01/28/21 05:15 Direct Bilirubin 0.9 mg/dL (0.1-0.5) H 01/23/21 04:35 AST 144 IU/L (10-42) H 01/28/21 05:15 ALT 256 IU/L (10-60) H 01/28/21 05:15 Alkaline Phosphatase 103 IU/L (42-121) 01/28/21 05:15 Troponin I High Sens 234.5 ng/L (2.3-19.7) H* 01/22/21 19:02 B-Natriuretic Peptide 4949.00 pg/mL (5-100) H 01/25/21 07:55 Total Protein 5.2 g/dL (6.7-8.2) L 01/28/21 05:15 Albumin 2.8 g/dL (3.2-5.5) L 01/28/21 05:15 Globulin 2.4 g/dL (2.1-4.2) 01/28/21 05:15 Albumin/Globulin Ratio 1.2 (1.0-2.2) 01/28/21 05:15 TSH 7.65 uIU/mL (0.34-5.60) H 01/23/21 04:35 Nasal Adenovirus (PCR) NOT DETECTED 01/18/21 18:22 Nasal B. parapertussis DNA (PCR) NOT DETECTED 01/18/21 18:22 Nasal Coronavir 229E PCR NOT DETECTED 01/18/21 18:22 Nasal Coronavir HKU1 PCR NOT DETECTED 01/18/21 18:22 Nasal Coronavir NL63 PCR NOT DETECTED 01/18/21 18:22 Nasal Coronavir OC43 PCR NOT DETECTED 01/18/21 18:22 Nasal Enterovir/Rhinovir PCR NOT DETECTED 01/18/21 18:22 Nasal Influenza B PCR NOT DETECTED 01/18/21 18:22 Nasal Influenza A PCR NOT DETECTED 01/18/21 18:22 Nasal Parainfluen 1 PCR NOT DETECTED 01/18/21 18:22 Nasal Parainfluen 2 PCR NOT DETECTED 01/18/21 18:22 Nasal Parainfluen 3 PCR NOT DETECTED 01/18/21 18:22 Nasal Parainfluen 4 PCR NOT DETECTED 01/18/21 18:22 Nasal RSV (PCR) NOT DETECTED 01/18/21 18:22 Nasal Screen MRSA (PCR) NEGATIVE (NEGATIVE) 01/21/21 12:45 Nasal B.pertussis DNA PCR NOT DETECTED 01/18/21 18:22 Nasal C.pneumoniae (PCR) NOT DETECTED 01/18/21 18:22 [place] Human Metapneumo PCR NOT DETECTED 01/18/21 18:22 Nasal M.pneumoniae (PCR) NOT DETECTED 01/18/21 18:22 Nasal SARS-CoV-2 (PCR) NOT DETECTED 01/18/21 18:22 Last Dose Date 02/19/21 02/20/21 08:15 Last Dose Time 10502/20/21 08:15 Digoxin < 0.2 ng/mL 02/20/21 08:15 Ethyl Alcohol < 5.0 mg/dL 01/18/21 16:51 Hepatitis A IgM Ab NON-REACTIVE (NON-REACTIVE) 01/19/21 06:19 Hep Bs Antigen NON-REACTIVE (NON-REACTIVE) 01/19/21 06:19 Hep B Core IgM Ab NON-REACTIVE (NON-REACTIVE) 01/19/21 06:19 Hepatitis C Antibody REACTIVE (NON-REACTIVE) A 01/19/21 06:19 Hep C Ab Signal/Cutoff 6.50 (<1.00) H 01/19/21 06:19 - Procedures Procedures: Procedures COLONOSCOPY (08/16/13) ABX Reporting Has patient been on IV antibiotics over the past 48 hours?: No Current Medications - Current Medications Current Medications: Active Medications Albuterol (Albuterol Neb 2.5 Mg/3 Ml) 2.5 mg INH RTQ6H PRN PRN Reason: Shortness of Air/Wheezing Digoxin (Digoxin 125 Mcg Tablet) 125 mcg PO DAILY [facility] Last Admin: 02/20/21 10:03 Dose: 125 mcg Furosemide (Furosemide 40 Mg Tablet) 40 mg PO DAILY [facility] Last Admin: 02/20/21 10:04 Dose: 40 mg Gabapentin (Gabapentin 300 Mg Capsule) 300 mg PO 0800,1400 PRN PRN Reason: LEG PAIN OR ANXIETY Last Admin: 02/20/21 10:03 Dose: 300 mg Gabapentin (Gabapentin 300 Mg Capsule) 600 mg PO QPM [facility] Last Admin: 02/19/21 20:52 Dose: 600 mg Heparin Sodium (Beef Lung) (Heparin Flush 50 Units/5 Ml Syringe) 30 - 50 unit IVP PRN PRN PRN Reason: Port Protocol (<24 hours) Last Admin: 02/19/21 20:52 Dose: 150 unit Lisinopril (Lisinopril 5 Mg Tablet) 2.5 mg PO DAILY [facility] Last Admin: 02/20/21 10:04 Dose: 2.5 mg Metoprolol Succinate (Metoprolol Succinate 25 Mg Tablet) 25 mg PO DAILY [facility] Last Admin: 02/20/21 10:03 Dose: 25 mg Morphine Sulfate (Morphine 2 Mg/Ml Carpuject) 1 mg IVP Q4HR PRN PRN Reason: PAIN Last Admin: 02/02/21 14:58 Dose: 1 mg Multivitamins (Multivitamin Tablet) 1 tab PO DAILYWM [facility] Last Admin: 02/20/21 10:02 Dose: 1 tab Nicotine (Nicotine 14 Mg Patch) 1 patch TOP DAILY [facility] Last Admin: 02/20/21 10:04 Dose: Not Given Ondansetron HCl (Ondansetron 4 Mg/2 Ml Vial) 4 mg IVP Q6HR PRN PRN Reason: Nausea / Vomiting Last Admin: 01/19/21 23:45 Dose: 4 mg Oxycodone HCl (Oxycodone 5 Mg Tablet) 5 mg PO Q4HR PRN PRN Reason: Pain 5 to 7 Last Admin: 02/20/21 10:02 Dose: 5 mg Sodium Chloride (Sodium Chloride Flush 0.9% 10 Ml Syringe) 10 ml IVP PRN PRN PRN Reason: NEEDED PER PROVIDER ORDERS Last Admin: 02/17/21 20:11 Dose: 10 ml Sodium Chloride (Sodium Chloride Flush 0.9% 10 Ml Syringe) 10 ml IVP 0100,0900,1700 [facility] Last Admin: 02/20/21 10:04 Dose: 10 ml Sodium Chloride (Sodium Chloride Flush 0.9% 10 Ml Syringe) 20 ml IVP PRN PRN PRN Reason: After Blood Draw Last Admin: 02/15/21 23:44 Dose: 20 ml Spironolactone (Spironolactone 25 Mg Tablet) 25 mg PO DAILY [facility] Last Admin: 02/20/21 10:03 Dose: 25 mg Thiamine HCl (Thiamine 100 Mg Tablet) 100 mg PO DAILY [facility] Last Admin: 02/20/21 10:04 Dose: 100 mg Citalopram [CeleXA] 10 mg ORAL DAILY 09/15/20 Gabapentin [Neurontin] 300 mg PO 0800,1400 PRN 01/19/21 Gabapentin [Neurontin] 600 mg PO QPM 01/19/21 Metoprolol Succinate [Toprol Xl] 25 mg PO DAILY 01/19/21
[2021-02-20] MEDS: GABAPENTIN 300 MG CAPSULE PO SCH (20:58)
--- NOTE | 2021-02-21 09:05 | PROVIDER PROGRESS NOTE ---
Assessment/Plan - Problem List (1) Acute on chronic systolic and diastolic heart failure, NYHA class 4 Assessment/Plan: 02/21 pt report he feel great. he ate all his breakfast. pt's central line was on a month, we will d/c and put new peripheral IV. continue metoprolol, Lasix, spironolactone and Lisinopril, digoxin, consult with psychotherapist social worker for placement. 02/20 pt report he feel good. his digoxin is less 0.2, pt has slight elevated HR, resume his full dosage of digoxin, continue metoprolol, Lasix, spironolactone and Lisinopril. consulted with psychotherapist social worker for placement 02/19 stable, pt report he had albuterol INH PRN before, he hope to have it again. pt had vaccinated with Covid 19, plan to d/c to [facility] for hosp[facility] care, per psychotherapist social worker's report. 02/15 HR is 73, BP is 102/76, improved and pt has No complaints, hemodynamic stable. Continue digoxin, metoprolol, Lasix, spironolactone and Lisinopril. 02/14 pt's HR is down to 41 and low blood pressure. we will try to reduce Digoxin and metoprolol dosage and vital monitor. will continue Lasix, spironolactone and low dosage of Lisinopril. pt has EF<20% and congestive pulmonary edema. continue comfortable focus care and followup with hospice care after d/c (2) Peripheral vascular disease Impression: 02/20, Patient has no complaints, his pain is under good control 02/19 pt report he has slight more pain on his bilateral feet, pt had PRN oxycodone and Gabapentin, will continue, will monitor closely Stable. pt report Gabapentin and oxycodon are at good control to his peripheral neuropathy. continue comfortable focus care and followup with hospice care after d/c (3) COPD (chronic obstructive pulmonary disease) with emphysema Stable, no exacerbation currently. (4) Paroxysmal atrial fibrillation Impression: pt has bradycardia, HR is down to 41. reduce his digoxin and metoprolol dosage and keep vital monitor, focus on comfortable care. (5) Hepatitis Impression: Stable and reactive, Continuing current medical management/comfort care. (6) ESTEVAN (acute kidney injury) Impression: Resolved. (7) Cardiogenic shock Impression: Resolved. (8) Hyponatremia Impression: Resolved. - Current Meds Current Meds: Current Medications Generic Name Dose Route Start Last Admin Trade Name Freq PRN Reason Stop Dose Admin Digoxin 125 mcg 02/20/21 09:00 02/20/21 10:03 Digoxin 125 Mcg Tablet PO 125 mcg DAILY YONATHAN Administration Furosemide 40 mg 02/14/21 11:44 02/20/21 10:04 Furosemide 40 Mg Tablet PO 40 mg DAILY YONATHAN Administration Gabapentin 300 mg 01/31/21 07:44 02/20/21 10:03 Gabapentin 300 Mg Capsule PO 300 mg 0800,1400 PRN Administration LEG PAIN OR ANXIETY Gabapentin 600 mg 01/31/21 21:00 02/20/21 20:58 Gabapentin 300 Mg Capsule PO 600 mg QPM YONATHAN Administration Heparin Sodium (Beef Lung) 30 - 50 unit 01/27/21 09:45 02/19/21 20:52 Heparin Flush 50 Units/5 Ml Syringe IVP 150 unit PRN PRN Administration Port Protocol (<24 hours) Lisinopril 2.5 mg 02/14/21 11:42 02/20/21 10:04 Lisinopril 5 Mg Tablet PO 2.5 mg DAILY YONATHAN Administration Metoprolol Succinate 25 mg 02/14/21 10:35 02/20/21 10:03 Metoprolol Succinate 25 Mg Tablet PO 25 mg DAILY YONATHAN Administration Morphine Sulfate 1 mg 01/18/21 21:45 02/02/21 14:58 Morphine 2 Mg/Ml Carpuject IVP 1 mg Q4HR PRN Administration PAIN Multivitamins 1 tab 01/19/21 08:00 02/20/21 10:02 Multivitamin Tablet PO 1 tab DAILYWM YONATHAN Administration Nicotine 1 patch 02/01/21 18:28 02/20/21 10:04 Nicotine 14 Mg Patch TOP Not Given DAILY YONATHAN Ondansetron HCl 4 mg 01/18/21 18:18 01/19/21 23:45 Ondansetron 4 Mg/2 Ml Vial IVP 4 mg Q6HR PRN Administration Nausea / Vomiting Oxycodone HCl 5 mg 01/18/21 18:18 02/20/21 23:56 Oxycodone 5 Mg Tablet PO 5 mg Q4HR PRN Administration Pain 5 to 7 Sodium Chloride 10 ml 01/18/21 18:18 02/17/21 20:11 Sodium Chloride Flush 0.9% 10 Ml Syringe IVP 10 ml PRN PRN Administration NEEDED PER PROVIDER ORDERS Sodium Chloride 10 ml 01/19/21 01:00 02/20/21 23:57 Sodium Chloride Flush 0.9% 10 Ml Syringe IVP 10 ml 0100,0900,1700 YONATHAN Administration Sodium Chloride 20 ml 01/31/21 09:19 02/15/21 23:44 Sodium Chloride Flush 0.9% 10 Ml Syringe IVP 20 ml PRN PRN Administration After Blood Draw Spironolactone 25 mg 02/14/21 11:44 02/20/21 10:03 Spironolactone 25 Mg Tablet PO 25 mg DAILY YONATHAN Administration Thiamine HCl 100 mg 01/29/21 10:30 02/20/21 10:04 Thiamine 100 Mg Tablet PO 100 mg DAILY YONATHAN Administration - Lab Result Fish Bone Diagrams: 01/30/21 14:55 01/30/21 14:55 - Additional Planning My Orders: My Active Orders 02/20/21 09:00 Digoxin [Lanoxin] 125 mcg PO DAILY 02/21/21 07:11 Miscellaenous Nursing Order [RC] ONCE Subjective - Subjective Patient Reports: Resting Comfortably Objective Vital Signs: Vital Signs - 24 hr 02/20/21 02/20/21 02/20/21 10:34 17:00 23:48 Temperature 36.5 C 36.6 C Heart Rate [ 65 84 Apical] Heart Rate [ 96 Brachial] Respiratory 18 20 16 Rate Blood Pressure 132/84 H 101/62 111/65 [Right Brachial artery] O2 Saturation 97 94 96 02/21/21 07:24 Temperature 36.7 C Heart Rate [ Apical] Heart Rate [ 90 Brachial] Respiratory 17 Rate Blood Pressure 100/77 [Right Brachial artery] O2 Saturation 98 Oxygen O2 Source Room air I&O (Last 24 Hrs): Intake and Output Totals x24h 02/19/21 02/20/21 02/21/21 23:59 23:59 23:59 Intake Total 1585 1690 360 Output Total 2400 2825 800 Balance -815 -1135 -440 General: Alert, Oriented x3, Cooperative, No acute distress HEENT: Atraumatic Neck: Supple Lymphatic: no adenopathy Neuro: Alert, Non Focal, Oriented Times 3 Cardiovascular: Normal S1, Normal S2, Other (irregular irregular rhythym) Respiratory: Chest non-tender, No respiratory distress Abdomen: Normal bowel sounds, Soft Extremities: Normal pulses - Results Results: Laboratory Results WBC 9.6 x10^3/uL (4.8-10.8) 01/30/21 14:55 RBC 4.04 10^6/uL (4.70-6.10) L 01/30/21 14:55 Hgb 13.0 g/dL (14.0-18.0) L 01/30/21 14:55 Hct 40.3 % (42.0-52.0) L 01/30/21 14:55 MCV 99.8 fL (80.0-94.0) H 01/30/21 14:55 MCH 32.2 pg (27.0-31.0) H 01/30/21 14:55 MCHC 32.3 g/dL (32.0-36.0) 01/30/21 14:55 RDW 14.9 % (12.0-15.0) 01/30/21 14:55 Plt Count 211 10^3/uL (130-450) 01/30/21 14:55 MPV 10.9 fL (7.4-11.4) 01/30/21 14:55 Neut # (Auto) 7.0 10^3/uL (1.5-6.6) H 01/30/21 14:55 Lymph # (Auto) 1.4 10^3/uL (1.5-3.5) L 01/30/21 14:55 [place] # (Auto) 0.9 10^3/uL (0.0-1.0) 01/30/21 14:55 Eos # (Auto) 0.2 10^3/uL (0.0-0.7) 01/30/21 14:55 Baso # (Auto) 0.1 10^3/uL (0.0-0.1) 01/30/21 14:55 Absolute Nucleated RBC 0.00 x10^3/uL 01/30/21 14:55 Total Counted 100 01/24/21 04:26 Band Neuts % (Manual) 1 % (0-10) 01/24/21 04:26 Reactive Lymphs % (Man) 3 % 01/18/21 16:51 Abnorm Lymph % (Manual) 0 % 01/24/21 04:26 Nucleated RBC % 0.0 /100WBC 01/30/21 14:55 Neutrophils # (Manual) 6.9 10^3/uL (1.5-6.6) H 01/24/21 04:26 Lymphocytes # (Manual) 0.5 10^3/uL (1.5-3.5) L 01/24/21 04:26 Monocytes # (Manual) 1.5 10^3/uL (0.0-1.0) H 01/24/21 04:26 Eosinophils # (Manual) 0.0 10^3/uL (0-0.7) 01/24/21 04:26 Basophils # (Manual) 0.0 10^3/uL (0-0.1) 01/24/21 04:26 Differential Comment MANUAL DIFFERENTIAL 01/24/21 04:26 Manual Slide Review Indicated 01/24/21 04:26 WBC Morphology NORMAL APPEARANCE (NORMAL) 01/23/21 08:40 Platelet Estimate DECREASED (<130,000) (NORMAL) 01/24/21 04:26 Platelet Morphology NORMAL APPEARANCE (NORMAL) 01/23/21 08:40 RBC Morph Micro Appear NORMAL APPEARANCE (NORMAL) 01/23/21 08:40 PT 21.2 secs (9.9-12.6) H 01/21/21 14:51 INR 1.9 (0.8-1.2) H 01/21/21 14:51 Bld Gas Analysis Time 1311 01/21/21 13:06 Sample Site RIGHT RADIAL 01/21/21 13:06 ABG pH 7.44 (7.35-7.45) 01/21/21 13:06 ABG pCO2 30 mmHg (34-45) L 01/21/21 13:06 ABG pO2 92 mmHg (80-100) 01/21/21 13:06 ABG HCO3 19.6 mmol/L (22.0-26.0) L 01/21/21 13:06 ABG Total CO2 20.5 MMOL/L (21.0-29.0) L 01/21/21 13:06 ABG O2 Saturation 97 % (94-98) 01/21/21 13:06 ABG Base Excess -3.4 mmol/L (-2.0-3.0) L 01/21/21 13:06 Honorio Test POSITIVE 01/21/21 13:06 VBG pH 7.406 (7.31-7.41) 01/24/21 07:51 Ionized Calcium 1.06 mmol/L (1.15-1.33) L 01/24/21 07:51 O2 Delivery Device NON REBREATHER MASK 01/21/21 13:06 O2 Liters/Min 15.00 LPM 01/21/21 13:06 FiO2 100.00 01/21/21 13:06 Sodium 136 mmol/L (135-145) 01/30/21 14:55 Potassium 4.4 mmol/L (3.5-5.0) 01/30/21 14:55 Chloride 101 mmol/L (101-111) 01/30/21 14:55 Carbon Dioxide 25 mmol/L (21-32) 01/30/21 14:55 Anion Gap 10.0 (6-13) 01/30/21 14:55 BUN 17 mg/dL (6-20) 01/30/21 14:55 Creatinine 1.1 mg/dL (0.6-1.2) 01/30/21 14:55 Estimated GFR (MDRD) 69 (>89) L 01/30/21 14:55 Glucose 87 mg/dL (70-100) 01/30/21 14:55 Lactic Acid 2.0 mmol/L (0.5-2.2) 01/22/21 19:02 Calcium 8.3 mg/dL (8.5-10.3) L 01/30/21 14:55 Phosphorus 3.3 mg/dL (2.5-4.6) 01/24/21 04:26 Magnesium 1.8 mg/dL (1.7-2.8) 01/24/21 04:26 Total Bilirubin 2.1 mg/dL (0.2-1.0) H 01/28/21 05:15 Direct Bilirubin 0.9 mg/dL (0.1-0.5) H 01/23/21 04:35 AST 144 IU/L (10-42) H 01/28/21 05:15 ALT 256 IU/L (10-60) H 01/28/21 05:15 Alkaline Phosphatase 103 IU/L (42-121) 01/28/21 05:15 Troponin I High Sens 234.5 ng/L (2.3-19.7) H* 01/22/21 19:02 B-Natriuretic Peptide 4949.00 pg/mL (5-100) H 01/25/21 07:55 Total Protein 5.2 g/dL (6.7-8.2) L 01/28/21 05:15 Albumin 2.8 g/dL (3.2-5.5) L 01/28/21 05:15 Globulin 2.4 g/dL (2.1-4.2) 01/28/21 05:15 Albumin/Globulin Ratio 1.2 (1.0-2.2) 01/28/21 05:15 TSH 7.65 uIU/mL (0.34-5.60) H 01/23/21 04:35 Nasal Adenovirus (PCR) NOT DETECTED 01/18/21 18:22 Nasal B. parapertussis DNA (PCR) NOT DETECTED 01/18/21 18:22 Nasal Coronavir 229E PCR NOT DETECTED 01/18/21 18:22 Nasal Coronavir HKU1 PCR NOT DETECTED 01/18/21 18:22 Nasal Coronavir NL63 PCR NOT DETECTED 01/18/21 18:22 Nasal Coronavir OC43 PCR NOT DETECTED 01/18/21 18:22 Nasal Enterovir/Rhinovir PCR NOT DETECTED 01/18/21 18:22 Nasal Influenza B PCR NOT DETECTED 01/18/21 18:22 Nasal Influenza A PCR NOT DETECTED 01/18/21 18:22 Nasal Parainfluen 1 PCR NOT DETECTED 01/18/21 18:22 Nasal Parainfluen 2 PCR NOT DETECTED 01/18/21 18:22 Nasal Parainfluen 3 PCR NOT DETECTED 01/18/21 18:22 Nasal Parainfluen 4 PCR NOT DETECTED 01/18/21 18:22 Nasal RSV (PCR) NOT DETECTED 01/18/21 18:22 Nasal Screen MRSA (PCR) NEGATIVE (NEGATIVE) 01/21/21 12:45 Nasal B.pertussis DNA PCR NOT DETECTED 01/18/21 18:22 Nasal C.pneumoniae (PCR) NOT DETECTED 01/18/21 18:22 [place] Human Metapneumo PCR NOT DETECTED 01/18/21 18:22 Nasal M.pneumoniae (PCR) NOT DETECTED 01/18/21 18:22 Nasal SARS-CoV-2 (PCR) NOT DETECTED 01/18/21 18: Last Dose Date 02/19/21 02/20/21 08:15 Last Dose Time 1059 02/20/21 08:15 Digoxin < 0.2 ng/mL 02/20/21 08:15 Ethyl Alcohol < 5.0 mg/dL 01/18/21 16:51 Hepatitis A IgM Ab NON-REACTIVE (NON-REACTIVE) 01/19/21 06:19 Hep Bs Antigen NON-REACTIVE (NON-REACTIVE) 01/19/21 06:19 Hep B Core IgM Ab NON-REACTIVE (NON-REACTIVE) 01/19/21 06:19 Hepatitis C Antibody REACTIVE (NON-REACTIVE) A 01/19/21 06:19 Hep C Ab Signal/Cutoff 6.50 (<1.00) H 01/19/21 06:19 - Procedures Procedures: Procedures COLONOSCOPY (08/16/13) ABX Reporting Has patient been on IV antibiotics over the past 48 hours?: No Current Medications - Current Medications Current Medications: Active Medications Albuterol (Albuterol Neb 2.5 Mg/3 Ml) 2.5 mg INH RTQ6H PRN PRN Reason: Shortness of Air/Wheezing Digoxin (Digoxin 125 Mcg Tablet) 125 mcg PO DAILY [facility] Last Admin: 02/20/21 10:03 Dose: 125 mcg Furosemide (Furosemide 40 Mg Tablet) 40 mg PO DAILY [facility] Last Admin: 02/20/21 10:04 Dose: 40 mg Gabapentin (Gabapentin 300 Mg Capsule) 300 mg PO 0800,1400 PRN PRN Reason: LEG PAIN OR ANXIETY Last Admin: 02/20/21 10:03 Dose: 300 mg Gabapentin (Gabapentin 300 Mg Capsule) 600 mg PO QPM [facility] Last Admin: 02/20/21 20:58 Dose: 600 mg Heparin Sodium (Beef Lung) (Heparin Flush 50 Units/5 Ml Syringe) 30 - 50 unit IVP PRN PRN PRN Reason: Port Protocol (<24 hours) Last Admin: 02/19/21 20:52 Dose: 150 unit Lisinopril (Lisinopril 5 Mg Tablet) 2.5 mg PO DAILY [facility] Last Admin: 02/20/21 10:04 Dose: 2.5 mg Metoprolol Succinate (Metoprolol Succinate 25 Mg Tablet) 25 mg PO DAILY [facility] Last Admin: 02/20/21 10:03 Dose: 25 mg Morphine Sulfate (Morphine 2 Mg/Ml Carpuject) 1 mg IVP Q4HR PRN PRN Reason: PAIN Last Admin: 02/02/21 14:58 Dose: 1 mg Multivitamins (Multivitamin Tablet) 1 tab PO DAILYWM [facility] Last Admin: 02/20/21 10:02 Dose: 1 tab Nicotine (Nicotine 14 Mg Patch) 1 patch TOP DAILY [facility] Last Admin: 02/20/21 10:04 Dose: Not Given Ondansetron HCl (Ondansetron 4 Mg/2 Ml Vial) 4 mg IVP Q6HR PRN PRN Reason: Nausea / Vomiting Last Admin: 01/19/21 23:45 Dose: 4 mg Oxycodone HCl (Oxycodone 5 Mg Tablet) 5 mg PO Q4HR PRN PRN Reason: Pain 5 to 7 Last Admin: 02/20/21 23:56 Dose: 5 mg Sodium Chloride (Sodium Chloride Flush 0.9% 10 Ml Syringe) 10 ml IVP PRN PRN PRN Reason: NEEDED PER PROVIDER ORDERS Last Admin: 02/17/21 20:11 Dose: 10 ml Sodium Chloride (Sodium Chloride Flush 0.9% 10 Ml Syringe) 10 ml IVP 0100,0900,1700 [facility] Last Admin: 02/20/21 23:57 Dose: 10 ml Sodium Chloride (Sodium Chloride Flush 0.9% 10 Ml Syringe) 20 ml IVP PRN PRN PRN Reason: After Blood Draw Last Admin: 02/15/21 23:44 Dose: 20 ml Spironolactone (Spironolactone 25 Mg Tablet) 25 mg PO DAILY [facility] Last Admin: 02/20/21 10:03 Dose: 25 mg Thiamine HCl (Thiamine 100 Mg Tablet) 100 mg PO DAILY [facility] Last Admin: 02/20/21 10:04 Dose: 100 mg Citalopram [CeleXA] 10 mg ORAL DAILY 09/15/20 Gabapentin [Neurontin] 300 mg PO 0800,1400 PRN 01/19/21 Gabapentin [Neurontin] 600 mg PO QPM 01/19/21 Metoprolol Succinate [Toprol Xl] 25 mg PO DAILY 01/19/21
[2021-02-21] MEDS: FUROSEMIDE 40 MG TABLET PO SCH (09:13)
[2021-02-21] MEDS: MULTIVITAMIN TABLET PO SCH (09:13)
[2021-02-21] MEDS: SPIRONOLACTONE 25 MG TABLET PO SCH (09:13)
[2021-02-21] MEDS: METOPROLOL SUCCINATE 25 MG TABLET PO SCH (09:13)
[2021-02-21] MEDS: GABAPENTIN 300 MG CAPSULE PO PRN (09:13)
[2021-02-21] MEDS: oxyCODONE 5 MG TABLET PO PRN ×2 (09:13→16:40)
[2021-02-21] MEDS: lisinopriL 5 MG TABLET PO SCH (09:14)
[2021-02-21] MEDS: DIGOXIN 125 MCG TABLET PO SCH (09:14)
[2021-02-21] MEDS: THIAMINE 100 MG TABLET PO SCH (09:14)
[2021-02-21] MEDS: NICOTINE 14 MG PATCH TOP SCH (09:15)
[2021-02-21] MEDS: SODIUM CHLORIDE FLUSH 0.9% 10 ML SYRINGE IVP PRN (16:40)
[2021-02-21] MEDS: GABAPENTIN 300 MG CAPSULE PO SCH (20:29)
[2021-02-22] MEDS: THIAMINE 100 MG TABLET PO SCH (09:28)
[2021-02-22] MEDS: DIGOXIN 125 MCG TABLET PO SCH (09:29)
[2021-02-22] MEDS: FUROSEMIDE 40 MG TABLET PO SCH (09:29)
[2021-02-22] MEDS: METOPROLOL SUCCINATE 25 MG TABLET PO SCH (09:29)
[2021-02-22] MEDS: SPIRONOLACTONE 25 MG TABLET PO SCH (09:30)
[2021-02-22] MEDS: lisinopriL 5 MG TABLET PO SCH (09:30)
[2021-02-22] MEDS: MULTIVITAMIN TABLET PO SCH (09:30)
[2021-02-22] MEDS: NICOTINE 14 MG PATCH TOP SCH (09:31)
[2021-02-22] MEDS: SODIUM CHLORIDE FLUSH 0.9% 10 ML SYRINGE IVP SCH ×3 (09:31→21:15)
[2021-02-22] MEDS: oxyCODONE 5 MG TABLET PO PRN ×4 (09:34→21:15)
[2021-02-22] MEDS: GABAPENTIN 300 MG CAPSULE PO PRN ×2 (09:35→15:09)
--- NOTE | 2021-02-22 10:42 | PROVIDER PROGRESS NOTE ---
Assessment/Plan - Problem List (1) Acute on chronic systolic and diastolic heart failure, NYHA class 4 Assessment/Plan: 02/22 pt is happy for his breakfast. he feel great, no complaints. pt is pending for placement. 02/21 pt report he feel great. he ate all his breakfast. pt's central line was on a month, we will d/c and put new peripheral IV. continue metoprolol, Lasix, spironolactone and Lisinopril, digoxin, consult with social services counselor for placement. 02/20 pt report he feel good. his digoxin is less 0.2, pt has slight elevated HR, resume his full dosage of digoxin, continue metoprolol, Lasix, spironolactone and Lisinopril. consulted with social services counselor for placement 02/19 stable, pt report he had albuterol INH PRN before, he hope to have it again. pt had vaccinated with Covid 19, plan to d/c to [facility] for hosp[facility] care, per social services counselor's report. 02/15 HR is 73, BP is 102/76, improved and pt has No complaints, hemodynamic stable. Continue digoxin, metoprolol, Lasix, spironolactone and Lisinopril. 02/14 pt's HR is down to 41 and low blood pressure. we will try to reduce Digoxin and metoprolol dosage and vital monitor. will continue Lasix, spironolactone and low dosage of Lisinopril. pt has EF<20% and congestive pulmonary edema. continue comfortable focus care and followup with hospice care after d/c (2) Peripheral vascular disease Impression: 02/20, Patient has no complaints, his pain is under good control 02/19 pt report he has slight more pain on his bilateral feet, pt had PRN oxycodone and Gabapentin, will continue, will monitor closely Stable. pt report Gabapentin and oxycodon are at good control to his peripheral neuropathy. continue comfortable focus care and followup with hospice care after d/c (3) COPD (chronic obstructive pulmonary disease) with emphysema Stable, no exacerbation currently. (4) Paroxysmal atrial fibrillation Impression: pt has bradycardia, HR is down to 41. reduce his digoxin and metoprolol dosage a nd keep vital monitor, focus on comfortable care. (5) Hepatitis Impression: Stable and reactive, Continuing current medical management/comfort care. (6) ESTEVAN (acute kidney injury) Impression: Resolved. (7) Cardiogenic shock Impression: Resolved. (8) Hyponatremia Impression: Resolved. - Current Meds Current Meds: Current Medications Generic Name Dose Route Start Last Admin Trade Name Freq PRN Reason Stop Dose Admin Digoxin 125 mcg 02/20/21 09:00 02/22/21 09:29 Digoxin 125 Mcg Tablet PO 125 mcg DAILY YONATHAN Administration Furosemide 40 mg 02/14/21 11:44 02/22/21 09:29 Furosemide 40 Mg Tablet PO 40 mg DAILY YONATHAN Administration Gabapentin 300 mg 01/31/21 07:44 02/22/21 09:35 Gabapentin 300 Mg Capsule PO 300 mg 0800,1400 PRN Administration LEG PAIN OR ANXIETY Gabapentin 600 mg 01/31/21 21:00 02/21/21 20:29 Gabapentin 300 Mg Capsule PO 600 mg QPM YONATHAN Administration Heparin Sodium (Beef Lung) 30 - 50 unit 01/27/21 09:45 02/19/21 20:52 Heparin Flush 50 Units/5 Ml Syringe IVP 150 unit PRN PRN Administration Port Protocol (<24 hours) Lisinopril 2.5 mg 02/14/21 11:42 02/22/21 09:30 Lisinopril 5 Mg Tablet PO 2.5 mg DAILY YONATHAN Administration Metoprolol Succinate 25 mg 02/14/21 10:35 02/22/21 09:29 Metoprolol Succinate 25 Mg Tablet PO 25 mg DAILY YONATHAN Administration Multivitamins 1 tab 01/19/21 08:00 02/22/21 09:30 Multivitamin Tablet PO 1 tab DAILYWM YONATHAN Administration Nicotine 1 patch 02/01/21 18:28 02/22/21 09:31 Nicotine 14 Mg Patch TOP Not Given DAILY YONATHAN Ondansetron HCl 4 mg 01/18/21 18:18 01/19/21 23:45 Ondansetron 4 Mg/2 Ml Vial IVP 4 mg Q6HR PRN Administration Nausea / Vomiting Oxycodone HCl 5 mg 01/18/21 18:18 02/22/21 09:34 Oxycodone 5 Mg Tablet PO 5 mg Q4HR PRN Administration Pain 5 to 7 Sodium Chloride 10 ml 01/18/21 18:18 02/21/21 16:40 Sodium Chloride Flush 0.9% 10 Ml Syringe IVP 10 ml PRN PRN Administration NEEDED PER PROVIDER ORDERS Sodium Chloride 10 ml 01/19/21 01:00 02/22/21 09:31 Sodium Chloride Flush 0.9% 10 Ml Syringe IVP 10 ml 0100,0900,1700 YONATHAN Administration Sodium Chloride 20 ml 01/31/21 09:19 02/15/21 23:44 Sodium Chloride Flush 0.9% 10 Ml Syringe IVP 20 ml PRN PRN Administration After Blood Draw Spironolactone 25 mg 02/14/21 11:44 02/22/21 09:30 Spironolactone 25 Mg Tablet PO 25 mg DAILY YONATHAN Administration Thiamine HCl 100 mg 01/29/21 10:30 02/22/21 09:28 Thiamine 100 Mg Tablet PO 100 mg DAILY YONATHAN Administration - Lab Result Fish Bone Diagrams: 01/30/21 14:55 01/30/21 14:55 Subjective - Subjective Patient Reports: Resting Comfortably Objective Vital Signs: Vital Signs - 24 hr 02/21/21 02/22/21 02/22/21 20:50 00:26 07:51 Temperature 36.5 C 36.5 C 36.7 C Heart Rate [ 81 41 L 75 Brachial] Respiratory 16 17 16 Rate Blood Pressure 118/72 115/99 H 106/77 [Right Brachial artery] O2 Saturation 95 95 96 Oxygen O2 Source Room air I&O (Last 24 Hrs): Intake and Output Totals x24h 02/20/21 02/21/21 02/22/21 23:59 23:59 23:59 Intake Total 1690 800 680 Output Total 2825 2600 750 Balance -1135 -1800 -70 General: Alert, Oriented x3, Cooperative, No acute distress HEENT: Atraumatic Neck: Supple Lymphatic: no adenopathy Neuro: Alert, Non Focal, Oriented Times 3 Cardiovascular: Normal S1, Normal S2, Other (irregular regular) Respiratory: Chest non-tender, No respiratory distress Abdomen: Normal bowel sounds, Soft Extremities: Normal pulses - Results Results: Laboratory Results WBC 9.6 x10^3/uL (4.8-10.8) 01/30/21 14:55 RBC 4.04 10^6/uL (4.70-6.10) L 01/30/21 14:55 Hgb 13.0 g/dL (14.0-18.0) L 01/30/21 14:55 Hct 40.3 % (42.0-52.0) L 01/30/21 14:55 MCV 99.8 fL (80.0-94.0) H 01/30/21 14:55 MCH 32.2 pg (27.0-31.0) H 01/30/21 14:55 MCHC 32.3 g/dL (32.0-36.0) 01/30/21 14:55 RDW 14.9 % (12.0-15.0) 01/30/21 14:55 Plt Count 211 10^3/uL (130-450) 01/30/21 14:55 MPV 10.9 fL (7.4-11.4) 01/30/21 14:55 Neut # (Auto) 7.0 10^3/uL (1.5-6.6) H 01/30/21 14:55 Lymph # (Auto) 1.4 10^3/uL (1.5-3.5) L 01/30/21 14:55 Park # (Auto) 0.9 10^3/uL (0.0-1.0) 01/30/21 14:55 Eos # (Auto) 0.2 10^3/uL (0.0-0.7) 01/30/21 14:55 Baso # (Auto) 0.1 10^3/uL (0.0-0.1) 01/30/21 14:55 Absolute Nucleated RBC 0.00 x10^3/uL 01/30/21 14:55 Total Counted 100 01/24/21 04:26 Band Neuts % (Manual) 1 % (0-10) 01/24/21 04:26 Reactive Lymphs % (Man) 3 % 01/18/21 16:51 Abnorm Lymph % (Manual) 0 % 01/24/21 04:26 Nucleated RBC % 0.0 /100WBC 01/30/21 14:55 Neutrophils # (Manual) 6.9 10^3/uL (1.5-6.6) H 01/24/21 04:26 Lymphocytes # (Manual) 0.5 10^3/uL (1.5-3.5) L 01/24/21 04:26 Monocytes # (Manual) 1.5 10^3/uL (0.0-1.0) H 01/24/21 04:26 Eosinophils # (Manual) 0.0 10^3/uL (0-0.7) 01/24/21 04:26 Basophils # (Manual) 0.0 10^3/uL (0-0.1) 01/24/21 04:26 Differential Comment MANUAL DIFFERENTIAL 01/24/21 04:26 Manual Slide Review Indicated 01/24/21 04:26 WBC Morphology NORMAL APPEARANCE (NORMAL) 01/23/21 08:40 Platelet Estimate DECREASED (<130,000) (NORMAL) 01/24/21 04:26 Platelet Morphology NORMAL APPEARANCE (NORMAL) 01/23/21 08:40 RBC Morph Micro Appear NORMAL APPEARANCE (NORMAL) 01/23/21 08:40 PT 21.2 secs (9.9-12.6) H 01/21/21 14:51 INR 1.9 (0.8-1.2) H 01/21/21 14:51 Bld Gas Analysis Time 1311 01/21/21 13:06 Sample Site RIGHT RADIAL 01/21/21 13:06 ABG pH 7.44 (7.35-7.45) 01/21/21 13:06 ABG pCO2 30 mmHg (34-45) L 01/21/21 13:06 ABG pO2 92 mmHg (80-100) 01/21/21 13:06 ABG HCO3 19.6 mmol/L (22.0-26.0) L 01/21/21 13:06 ABG Total CO2 20.5 MMOL/L (21.0-29.0) L 01/21/21 13:06 ABG O2 Saturation 97 % (94-98) 01/21/21 13:06 ABG Base Excess -3.4 mmol/L (-2.0-3.0) L 01/21/21 13:06 Honorio Test POSITIVE 01/21/21 13:06 VBG pH 7.406 (7.31-7.41) 01/24/21 07:51 Ionized Calcium 1.06 mmol/L (1.15-1.33) L 01/24/21 07:51 O2 Delivery Device NON REBREATHER MASK 01/21/21 13:06 O2 Liters/Min 15.00 LPM 01/21/21 13:06 FiO2 100.00 01/21/21 13:06 Sodium 136 mmol/L (135-145) 01/30/21 14:55 Potassium 4.4 mmol/L (3.5-5.0) 01/30/21 14:55 Chloride 101 mmol/L (101-111) 01/30/21 14:55 Carbon Dioxide 25 mmol/L (21-32) 01/30/21 14:55 Anion Gap 10.0 (6-13) 01/30/21 14:55 BUN 17 mg/dL (6-20) 01/30/21 14:55 Creatinine 1.1 mg/dL (0.6-1.2) 01/30/21 14:55 Estimated GFR (MDRD) 69 (>89) L 01/30/21 14:55 Glucose 87 mg/dL (70-100) 01/30/21 14:55 Lactic Acid 2.0 mmol/L (0.5-2.2) 01/22/21 19:02 Calcium 8.3 mg/dL (8.5-10.3) L 01/30/21 14:55 Phosphorus 3.3 mg/dL (2.5-4.6) 01/24/21 04:26 Magnesium 1.8 mg/dL (1.7-2.8) 01/24/21 04:26 Total Bilirubin 2.1 mg/dL (0.2-1.0) H 01/28/21 05:15 Direct Bilirubin 0.9 mg/dL (0.1-0.5) H 01/23/21 04:35 AST 144 IU/L (10-42) H 01/28/21 05:15 ALT 256 IU/L (10-60) H 01/28/21 05:15 Alkaline Phosphatase 103 IU/L (42-121) 01/28/21 05:15 Troponin I High Sens 234.5 ng/L (2.3-19.7) H* 01/22/21 19:02 B-Natriuretic Peptide 4949.00 pg/mL (5-100) H 01/25/21 07:55 Total Protein 5.2 g/dL (6.7-8.2) L 01/28/21 05:15 Albumin 2.8 g/dL (3.2-5.5) L 01/28/21 05:15 Globulin 2.4 g/dL (2.1-4.2) 01/28/21 05:15 Albumin/Globulin Ratio 1.2 (1.0-2.2) 01/28/21 05:15 TSH 7.65 uIU/mL (0.34-5.60) H 01/23/21 04:35 Nasal Adenovirus (PCR) NOT DETECTED 01/18/21 18:22 Nasal B. parapertussis DNA (PCR) NOT DETECTED 01/18/21 18:22 Nasal Coronavir 229E PCR NOT DETECTED 01/18/21 18:22 Nasal Coronavir HKU1 PCR NOT DETECTED 01/18/21 18:22 Nasal Coronavir NL63 PCR NOT DETECTED 01/18/21 18:22 Nasal Coronavir OC43 PCR NOT DETECTED 01/18/21 18:22 Nasal Enterovir/Rhinovir PCR NOT DETECTED 01/18/21 18:22 Nasal Influenza B PCR NOT DETECTED 01/18/21 18:22 Nasal Influenza A PCR NOT DETECTED 01/18/21 18:22 Nasal Parainfluen 1 PCR NOT DETECTED 01/18/21 18:22 Nasal Parainfluen 2 PCR NOT DETECTED 01/18/21 18:22 Nasal Parainfluen 3 PCR NOT DETECTED 01/18/21 18:22 Nasal Parainfluen 4 PCR NOT DETECTED 01/18/21 18:22 Nasal RSV (PCR) NOT DETECTED 01/18/21 18:22 Nasal Screen MRSA (PCR) NEGATIVE (NEGATIVE) 01/21/21 12:45 Nasal B.pertussis DNA PCR NOT DETECTED 01/18/21 18:22 Nasal C.pneumoniae (PCR) NOT DETECTED 01/18/21 18:22 [place] Human Metapneumo PCR NOT DETECTED 01/18/21 18:22 Nasal M.pneumoniae (PCR) NOT DETECTED 01/18/21 18:22 Nasal SARS-CoV-2 (PCR) NOT DETECTED 01/18/21 18:22 Last Dose Date 02/19/21 02/20/21 08:15 Last Dose Time 1059 02/20/21 08:15 Digoxin < 0.2 ng/mL 02/20/21 08:15 Ethyl Alcohol < 5.0 mg/dL 01/18/21 16:51 Hepatitis A IgM Ab NON-REACTIVE (NON-REACTIVE) 01/19/21 06:19 Hep Bs Antigen NON-REACTIVE (NON-REACTIVE) 01/19/21 06:19 Hep B Core IgM Ab NON-REACTIVE (NON-REACTIVE) 01/19/21 06:19 Hepatitis C Antibody REACTIVE (NON-REACTIVE) A 01/19/21 06:19 Hep C Ab Signal/Cutoff 6.50 (<1.00) H 01/19/21 06:19 - Procedures Procedures: Procedures COLONOSCOPY (08/16/13) ABX Reporting Has patient been on IV antibiotics over the past 48 hours?: No Current Medications - Current Medications Current Medications: Active Medications Albuterol (Albuterol Neb 2.5 Mg/3 Ml) 2.5 mg INH RTQ6H PRN PRN Reason: Shortness of Air/Wheezing Digoxin (Digoxin 125 Mcg Tablet) 125 mcg PO DAILY [facility] Last Admin: 02/22/21 09:29 Dose: 125 mcg Furosemide (Furosemide 40 Mg Tablet) 40 mg PO DAILY [facility] Last Admin: 02/22/21 09:29 Dose: 40 mg Gabapentin (Gabapentin 300 Mg Capsule) 300 mg PO 0800,1400 PRN PRN Reason: LEG PAIN OR ANXIETY Last Admin: 02/22/21 09:35 Dose: 300 mg Gabapentin (Gabapentin 300 Mg Capsule) 600 mg PO QPM [facility] Last Admin: 02/21/21 20:29 Dose: 600 mg Heparin Sodium (Beef Lung) (Heparin Flush 50 Units/5 Ml Syringe) 30 - 50 unit IVP PRN PRN PRN Reason: Port Protocol (<24 hours) Last Admin: 02/19/21 20:52 Dose: 150 unit Lisinopril (Lisinopril 5 Mg Tablet) 2.5 mg PO DAILY [facility] Last Admin: 02/22/21 09:30 Dose: 2.5 mg Metoprolol Succinate (Metoprolol Succinate 25 Mg Tablet) 25 mg PO DAILY [facility] Last Admin: 02/22/21 09:29 Dose: 25 mg Multivitamins (Multivitamin Tablet) 1 tab PO DAILYWM [facility] Last Admin: 02/22/21 09:30 Dose: 1 tab Nicotine (Nicotine 14 Mg Patch) 1 patch TOP DAILY [facility] Last Admin: 02/22/21 09:31 Dose: Not Given Ondansetron HCl (Ondansetron 4 Mg/2 Ml Vial) 4 mg IVP Q6HR PRN PRN Reason: Nausea / Vomiting Last Admin: 01/19/21 23:45 Dose: 4 mg Oxycodone HCl (Oxycodone 5 Mg Tablet) 5 mg PO Q4HR PRN PRN Reason: Pain 5 to 7 Last Admin: 02/22/21 09:34 Dose: 5 mg Sodium Chloride (Sodium Chloride Flush 0.9% 10 Ml Syringe) 10 ml IVP PRN PRN PRN Reason: NEEDED PER PROVIDER ORDERS Last Admin: 02/21/21 16:40 Dose: 10 ml Sodium Chloride (Sodium Chloride Flush 0.9% 10 Ml Syringe) 10 ml IVP 0100,0900,1700 [facility] Last Admin: 02/22/21 09:31 Dose: 10 ml Sodium Chloride (Sodium Chloride Flush 0.9% 10 Ml Syringe) 20 ml IVP PRN PRN PRN Reason: After Blood Draw Last Admin: 02/15/21 23:44 Dose: 20 ml Spironolactone (Spironolactone 25 Mg Tablet) 25 mg PO DAILY [facility] Last Admin: 02/22/21 09:30 Dose: 25 mg Thiamine HCl (Thiamine 100 Mg Tablet) 100 mg PO DAILY [facility] Last Admin: 02/22/21 09:28 Dose: 100 mg Citalopram [CeleXA] 10 mg ORAL DAILY 09/15/20 Gabapentin [Neurontin] 300 mg PO 0800,1400 PRN 01/19/21 Gabapentin [Neurontin] 600 mg PO QPM 01/19/21 Metoprolol Succinate [Toprol Xl] 25 mg PO DAILY 01/19/21
[2021-02-22] MEDS: GABAPENTIN 300 MG CAPSULE PO SCH (21:15)
[2021-02-23] MEDS: oxyCODONE 5 MG TABLET PO PRN ×4 (01:46→21:48)
[2021-02-23] MEDS: SODIUM CHLORIDE FLUSH 0.9% 10 ML SYRINGE IVP SCH ×3 (01:47→21:47)
[2021-02-23] MEDS: GABAPENTIN 300 MG CAPSULE PO PRN ×2 (09:02→14:50)
[2021-02-23] MEDS: MULTIVITAMIN TABLET PO SCH (09:02)
[2021-02-23] MEDS: THIAMINE 100 MG TABLET PO SCH (09:02)
[2021-02-23] MEDS: FUROSEMIDE 40 MG TABLET PO SCH (09:04)
[2021-02-23] MEDS: lisinopriL 5 MG TABLET PO SCH (09:05)
[2021-02-23] MEDS: SPIRONOLACTONE 25 MG TABLET PO SCH (09:06)
[2021-02-23] MEDS: DIGOXIN 125 MCG TABLET PO SCH (09:07)
[2021-02-23] MEDS: METOPROLOL SUCCINATE 25 MG TABLET PO SCH (09:07)
[2021-02-23] MEDS: NICOTINE 14 MG PATCH TOP SCH (10:28)
--- NOTE | 2021-02-23 11:30 | PROVIDER PROGRESS NOTE ---
Assessment/Plan - Problem List (1) Acute on chronic systolic and diastolic heart failure, NYHA class 4 Assessment/Plan: 02/23 pt is comfortable, and has no complaints. pt is pending for placement. manager social was consulted for placement. 02/22 pt is happy for his breakfast. he feel great, no complaints. pt is pending for placement. 02/21 pt report he feel great. he ate all his breakfast. pt's central line was on a month, we will d/c and put new peripheral IV. continue metoprolol, Lasix, spironolactone and Lisinopril, digoxin, consult with manager social for placement. 02/20 pt report he feel good. his digoxin is less 0.2, pt has slight elevated HR, resume his full dosage of digoxin, continue metoprolol, Lasix, spironolactone and Lisinopril. consulted with manager social for placement 02/19 stable, pt report he had albuterol INH PRN before, he hope to have it again. pt had vaccinated with Covid 19, plan to d/c to [facility] for hosp[facility] care, per manager social's report. 02/15 HR is 73, BP is 102/76, improved and pt has No complaints, hemodynamic stable. Continue digoxin, metoprolol, Lasix, spironolactone and Lisinopril. 02/14 pt's HR is down to 41 and low blood pressure. we will try to reduce Digoxin and metoprolol dosage and vital monitor. will continue Lasix, spironolactone and low dosage of Lisinopril. pt has EF<20% and congestive pulmonary edema. continue comfortable focus care and followup with hospice care after d/c (2) Peripheral vascular disease Impression: 02/20, Patient has no complaints, his pain is under good control 02/19 pt report he has slight more pain on his bilateral feet, pt had PRN oxycodone and Gabapentin, will continue, will monitor closely Stable. pt report Gabapentin and oxycodon are at good control to his peripheral neuropathy. continue comfortable focus care and followup with hospice care after d/c (3) COPD (chronic obstructive pulmonary disease) with emphysema Stable, no exacerbation currently. (4) Paroxysmal atrial fibrillation Impression: pt has bradycardia, HR is down to 41. reduce his digoxin and metoprolol dosage and keep vital monitor, focus on comfortable care. (5) Hepatitis Impression: Stable and reactive, Continuing current medical management/comfort care. (6) ESTEVAN (acute kidney injury) Impression: Resolved. (7) Cardiogenic shock Impression: Resolved. (8) Hyponatremia Impression: Resolved. - Current Meds Current Meds: Current Medications Generic Name Dose Route Start Last Admin Trade Name Freq PRN Reason Stop Dose Admin Digoxin 125 mcg 02/20/21 09:00 02/23/21 09:07 Digoxin 125 Mcg Tablet PO Not Given DAILY YONATHAN Furosemide 40 mg 02/14/21 11:44 02/23/21 09:04 Furosemide 40 Mg Tablet PO 40 mg DAILY YONATHAN Administration Gabapentin 300 mg 01/31/21 07:44 02/23/21 09:02 Gabapentin 300 Mg Capsule PO 300 mg 0800,1400 PRN Administration LEG PAIN OR ANXIETY Gabapentin 600 mg 01/31/21 21:00 02/22/21 21:15 Gabapentin 300 Mg Capsule PO 600 mg QPM YONATHAN Administration Heparin Sodium (Beef Lung) 30 - 50 unit 01/27/21 09:45 02/19/21 20:52 Heparin Flush 50 Units/5 Ml Syringe IVP 150 unit PRN PRN Administration Port Protocol (<24 hours) Lisinopril 2.5 mg 02/14/21 11:42 02/23/21 09:05 Lisinopril 5 Mg Tablet PO 2.5 mg DAILY YONATHAN Administration Metoprolol Succinate 25 mg 02/14/21 10:35 02/23/21 09:07 Metoprolol Succinate 25 Mg Tablet PO Not Given DAILY YONATHAN Multivitamins 1 tab 01/19/21 08:00 02/23/21 09:02 Multivitamin Tablet PO 1 tab DAILYWM YONATHAN Administration Nicotine 1 patch 02/01/21 18:28 02/23/21 10:28 Nicotine 14 Mg Patch TOP Not Given DAILY YONATHAN Ondansetron HCl 4 mg 01/18/21 18:18 01/19/21 23:45 Ondansetron 4 Mg/2 Ml Vial IVP 4 mg Q6HR PRN Administration Nausea / Vomiting Oxycodone HCl 5 mg 01/18/21 18:18 02/23/21 09:03 Oxycodone 5 Mg Tablet PO 5 mg Q4HR PRN Administration Pain 5 to 7 Sodium Chloride 10 ml 01/18/21 18:18 02/21/21 16:40 Sodium Chloride Flush 0.9% 10 Ml Syringe IVP 10 ml PRN PRN Administration NEEDED PER PROVIDER ORDERS Sodium Chloride 10 ml 01/19/21 01:00 02/23/21 10:28 Sodium Chloride Flush 0.9% 10 Ml Syringe IVP 10 ml 0100,0900,1700 YONATHAN Administration Sodium Chloride 20 ml 01/31/21 09:19 02/15/21 23:44 Sodium Chloride Flush 0.9% 10 Ml Syringe IVP 20 ml PRN PRN Administration After Blood Draw Spironolactone 25 mg 02/14/21 11:44 02/23/21 09:06 Spironolactone 25 Mg Tablet PO 25 mg DAILY YONATHAN Administration Thiamine HCl 100 mg 01/29/21 10:30 02/23/21 09:02 Thiamine 100 Mg Tablet PO 100 mg DAILY YONATHAN Administration - Lab Result Fish Bone Diagrams: 01/30/21 14:55 01/30/21 14:55 Subjective - Subjective Patient Reports: Resting Comfortably Objective Vital Signs: Vital Signs - 24 hr 02/22/21 02/23/21 02/23/21 16:44 01:14 07:30 Temperature 36.5 C 36.3 C L 36.4 C L Heart Rate [ 79 78 89 Brachial] Heart Rate [ Radial] Respiratory 16 17 16 Rate Blood Pressure 92/77 98/73 102/74 [Right Brachial artery] O2 Saturation 100 95 96 02/23/21 09:07 Temperature Heart Rate [ Brachial] Heart Rate [ 44 L Radial] Respiratory Rate Blood Pressure [Right Brachial artery] O2 Saturation Oxygen O2 Source Room air I&O (Last 24 Hrs): Intake and Output Totals x24h 02/21/21 02/22/21 02/23/21 23:59 23:59 23:59 Intake Total 800 1970 480 Output Total 7772 3118 6897 Balance -9371 -120 -920 General: Alert, Oriented x3, Cooperative, No acute distress HEENT: Atraumatic, EOMI Lymphatic: no adenopathy Neuro: Alert, Non Focal, Oriented Times 3 Cardiovascular: Regular rate, Normal S1, Normal S2 Respiratory: Chest non-tender, No respiratory distress Abdomen: Normal bowel sounds, Soft Extremities: Normal pulses - Results Results: Laboratory Results WBC 9.6 x10^3/uL (4.8-10.8) 01/30/21 14:55 RBC 4.04 10^6/uL (4.70-6.10) L 01/30/21 14:55 Hgb 13.0 g/dL (14.0-18.0) L 01/30/21 14:55 Hct 40.3 % (42.0-52.0) L 01/30/21 14:55 MCV 99.8 fL (80.0-94.0) H 01/30/21 14:55 MCH 32.2 pg (27.0-31.0) H 01/30/21 14:55 MCHC 32.3 g/dL (32.0-36.0) 01/30/21 14:55 RDW 14.9 % (12.0-15.0) 01/30/21 14:55 Plt Count 211 10^3/uL (130-450) 01/30/21 14:55 MPV 10.9 fL (7.4-11.4) 01/30/21 14:55 Neut # (Auto) 7.0 10^3/uL (1.5-6.6) H 01/30/21 14:55 Lymph # (Auto) 1.4 10^3/uL (1.5-3.5) L 01/30/21 14:55 Beaver # (Auto) 0.9 10^3/uL (0.0-1.0) 01/30/21 14:55 Eos # (Auto) 0.2 10^3/uL (0.0-0.7) 01/30/21 14:55 Baso # (Auto) 0.1 10^3/uL (0.0-0.1) 01/30/21 14:55 Absolute Nucleated RBC 0.00 x10^3/uL 01/30/21 14:55 Total Counted 100 01/24/21 04:26 Band Neuts % (Manual) 1 % (0-10) 01/24/21 04:26 Reactive Lymphs % (Man) 3 % 01/18/21 16:51 Abnorm Lymph % (Manual) 0 % 01/24/21 04:26 Nucleated RBC % 0.0 /100WBC 01/30/21 14:55 Neutrophils # (Manual) 6.9 10^3/uL (1.5-6.6) H 01/24/21 04:26 Lymphocytes # (Manual) 0.5 10^3/uL (1.5-3.5) L 01/24/21 04:26 Monocytes # (Manual) 1.5 10^3/uL (0.0-1.0) H 01/24/21 04:26 Eosinophils # (Manual) 0.0 10^3/uL (0-0.7) 01/24/21 04:26 Basophils # (Manual) 0.0 10^3/uL (0-0.1) 01/24/21 04:26 Differential Comment MANUAL DIFFERENTIAL 01/24/21 04:26 Manual Slide Review Indicated 01/24/21 04:26 WBC Morphology NORMAL APPEARANCE (NORMAL) 01/23/21 08:40 Platelet Estimate DECREASED (<130,000) (NORMAL) 01/24/21 04:26 Platelet Morphology NORMAL APPEARANCE (NORMAL) 01/23/21 08:40 RBC Morph Micro Appear NORMAL APPEARANCE (NORMAL) 01/23/21 08:40 PT 21.2 secs (9.9-12.6) H 01/21/21 14:51 INR 1.9 (0.8-1.2) H 01/21/21 14:51 Bld Gas Analysis Time 1311 01/21/21 13:06 Sample Site RIGHT RADIAL 01/21/21 13:06 ABG pH 7.44 (7.35-7.45) 01/21/21 13:06 ABG pCO2 30 mmHg (34-45) L 01/21/21 13:06 ABG pO2 92 mmHg (80-100) 01/21/21 13:06 ABG HCO3 19.6 mmol/L (22.0-26.0) L 01/21/21 13:06 ABG Total CO2 20.5 MMOL/L (21.0-29.0) L 01/21/21 13:06 ABG O2 Saturation 97 % (94-98) 01/21/21 13:06 ABG Base Excess -3.4 mmol/L (-2.0-3.0) L 01/21/21 13:06 Honorio Test POSITIVE 01/21/21 13:06 VBG pH 7.406 (7.31-7.41) 01/24/21 07:51 Ionized Calcium 1.06 mmol/L (1.15-1.33) L 01/24/21 07:51 O2 Delivery Device NON REBREATHER MASK 01/21/21 13:06 O2 Liters/Min 15.00 LPM 01/21/21 13:06 FiO2 100.00 01/21/21 13:06 Sodium 136 mmol/L (135-145) 01/30/21 14:55 Potassium 4.4 mmol/L (3.5-5.0) 01/30/21 14:55 Chloride 101 mmol/L (101-111) 01/30/21 14:55 Carbon Dioxide 25 mmol/L (21-32) 01/30/21 14:55 Anion Gap 10.0 (6-13) 01/30/21 14:55 BUN 17 mg/dL (6-20) 01/30/21 14:55 Creatinine 1.1 mg/dL (0.6-1.2) 01/30/21 14:55 Estimated GFR (MDRD) 69 (>89) L 01/30/21 14:55 Glucose 87 mg/dL (70-100) 01/30/21 14:55 Lactic Acid 2.0 mmol/L (0.5-2.2) 01/22/21 19:02 Calcium 8.3 mg/dL (8.5-10.3) L 01/30/21 14:55 Phosphorus 3.3 mg/dL (2.5-4.6) 01/24/21 04:26 Magnesium 1.8 mg/dL (1.7-2.8) 01/24/21 04:26 Total Bilirubin 2.1 mg/dL (0.2-1.0) H 01/28/21 05:15 Direct Bilirubin 0.9 mg/dL (0.1-0.5) H 01/23/21 04:35 AST 144 IU/L (10-42) H 01/28/21 05:15 ALT 256 IU/L (10-60) H 01/28/21 05:15 Alkaline Phosphatase 103 IU/L (42-121) 01/28/21 05:15 Troponin I High Sens 234.5 ng/L (2.3-19.7) H* 01/22/21 19:02 B-Natriuretic Peptide 4949.00 pg/mL (5-100) H 01/25/21 07:55 Total Protein 5.2 g/dL (6.7-8.2) L 01/28/21 05:15 Albumin 2.8 g/dL (3.2-5.5) L 01/28/21 05:15 Globulin 2.4 g/dL (2.1-4.2) 01/28/21 05:15 Albumin/Globulin Ratio 1.2 (1.0-2.2) 01/28/21 05:15 TSH 7.65 uIU/mL (0.34-5.60) H 01/23/21 04:35 Nasal Adenovirus (PCR) NOT DETECTED 01/18/21 18:22 Nasal B. parapertussis DNA (PCR) NOT DETECTED 01/18/21 18:22 Nasal Coronavir 229E PCR NOT DETECTED 01/18/21 18:22 Nasal Coronavir HKU1 PCR NOT DETECTED 01/18/21 18:22 Nasal Coronavir NL63 PCR NOT DETECTED 01/18/21 18:22 Nasal Coronavir OC43 PCR NOT DETECTED 01/18/21 18:22 Nasal Enterovir/Rhinovir PCR NOT DETECTED 01/18/21 18:22 Nasal Influenza B PCR NOT DETECTED 01/18/21 18:22 Nasal Influenza A PCR NOT DETECTED 01/18/21 18:22 Nasal Parainfluen 1 PCR NOT DETECTED 01/18/21 18:22 Nasal Parainfluen 2 PCR NOT DETECTED 01/18/21 18:22 Nasal Parainfluen 3 PCR NOT DETECTED 01/18/21 18:22 Nasal Parainfluen 4 PCR NOT DETECTED 01/18/21 18:22 Nasal RSV (PCR) NOT DETECTED 01/18/21 18:22 Nasal Screen MRSA (PCR) NEGATIVE (NEGATIVE) 01/21/21 12:45 Nasal B.pertussis DNA PCR NOT DETECTED 01/18/21 18:22 Nasal C.pneumoniae (PCR) NOT DETECTED 01/18/21 18:22 [place] Human Metapneumo PCR NOT DETECTED 01/18/21 18:22 Nasal M.pneumoniae (PCR) NOT DETECTED 01/18/21 18:22 Nasal SARS-CoV-2 (PCR) NOT DETECTED 01/18/21 18:22 Last Dose Date 02/19/21 02/20/21 08:15 Last Dose Time 1059 02/20/21 08:15 Digoxin < 0.2 ng/mL 02/20/21 08:15 Ethyl Alcohol < 5.0 mg/dL 01/18/21 16:51 Hepatitis A IgM Ab NON-REACTIVE (NON-REACTIVE) 01/19/21 06:19 Hep Bs Antigen NON-REACTIVE (NON-REACTIVE) 01/19/21 06:19 Hep B Core IgM Ab NON-REACTIVE (NON-REACTIVE) 01/19/21 06:19 Hepatitis C Antibody REACTIVE (NON-REACTIVE) A 01/19/21 06:19 Hep C Ab Signal/Cutoff 6.50 (<1.00) H 01/19/21 06:19 - Procedures Procedures: Procedures COLONOSCOPY (08/16/13) ABX Reporting Has patient been on IV antibiotics over the past 48 hours?: No Current Medications - Current Medications Current Medications: Active Medications Albuterol (Albuterol Neb 2.5 Mg/3 Ml) 2.5 mg INH RTQ6H PRN PRN Reason: Shortness of Air/Wheezing Digoxin (Digoxin 125 Mcg Tablet) 125 mcg PO DAILY [facility] Last Admin: 02/23/21 09:07 Dose: Not Given Furosemide (Furosemide 40 Mg Tablet) 40 mg PO DAILY [facility] Last Admin: 02/23/21 09:04 Dose: 40 mg Gabapentin (Gabapentin 300 Mg Capsule) 300 mg PO 0800,1400 PRN PRN Reason: LEG PAIN OR ANXIETY Last Admin: 02/23/21 09:02 Dose: 300 mg Gabapentin (Gabapentin 300 Mg Capsule) 600 mg PO QPM [facility] Last Admin: 02/22/21 21:15 Dose: 600 mg Heparin Sodium (Beef Lung) (Heparin Flush 50 Units/5 Ml Syringe) 30 - 50 unit IVP PRN PRN PRN Reason: Port Protocol (<24 hours) Last Admin: 02/19/21 20:52 Dose: 150 unit Lisinopril (Lisinopril 5 Mg Tablet) 2.5 mg PO DAILY [facility] Last Admin: 02/23/21 09:05 Dose: 2.5 mg Metoprolol Succinate (Metoprolol Succinate 25 Mg Tablet) 25 mg PO DAILY [facility] Last Admin: 02/23/21 09:07 Dose: Not Given Multivitamins (Multivitamin Tablet) 1 tab PO DAILYWM [facility] Last Admin: 02/23/21 09:02 Dose: 1 tab Nicotine (Nicotine 14 Mg Patch) 1 patch TOP DAILY [facility] Last Admin: 02/23/21 10:28 Dose: Not Given Ondansetron HCl (Ondansetron 4 Mg/2 Ml Vial) 4 mg IVP Q6HR PRN PRN Reason: Nausea / Vomiting Last Admin: 01/19/21 23:45 Dose: 4 mg Oxycodone HCl (Oxycodone 5 Mg Tablet) 5 mg PO Q4HR PRN PRN Reason: Pain 5 to 7 Last Admin: 02/23/21 09:03 Dose: 5 mg Sodium Chloride (Sodium Chloride Flush 0.9% 10 Ml Syringe) 10 ml IVP PRN PRN PRN Reason: NEEDED PER PROVIDER ORDERS Last Admin: 02/21/21 16:40 Dose: 10 ml Sodium Chloride (Sodium Chloride Flush 0.9% 10 Ml Syringe) 10 ml IVP 0100,0900,1700 [facility] Last Admin: 02/23/21 10:28 Dose: 10 ml Sodium Chloride (Sodium Chloride Flush 0.9% 10 Ml Syringe) 20 ml IVP PRN PRN PRN Reason: After Blood Draw Last Admin: 02/15/21 23:44 Dose: 20 ml Spironolactone (Spironolactone 25 Mg Tablet) 25 mg PO DAILY [facility] Last Admin: 02/23/21 09:06 Dose: 25 mg Thiamine HCl (Thiamine 100 Mg Tablet) 100 mg PO DAILY [facility] Last Admin: 02/23/21 09:02 Dose: 100 mg Citalopram [CeleXA] 10 mg ORAL DAILY 09/15/20 Gabapentin [Neurontin] 300 mg PO 0800,1400 PRN 01/19/21 Gabapentin [Neurontin] 600 mg PO QPM 01/19/21 Metoprolol Succinate [Toprol Xl] 25 mg PO DAILY 01/19/21
[2021-02-23] MEDS: GABAPENTIN 300 MG CAPSULE PO SCH (21:48)
[2021-02-24] MEDS: SODIUM CHLORIDE FLUSH 0.9% 10 ML SYRINGE IVP SCH ×3 (01:30→16:02)
[2021-02-24] MEDS: FUROSEMIDE 40 MG TABLET PO SCH (09:28)
[2021-02-24] MEDS: DIGOXIN 125 MCG TABLET PO SCH (09:28)
[2021-02-24] MEDS: METOPROLOL SUCCINATE 25 MG TABLET PO SCH (09:28)
[2021-02-24] MEDS: MULTIVITAMIN TABLET PO SCH (09:28)
[2021-02-24] MEDS: SPIRONOLACTONE 25 MG TABLET PO SCH (09:28)
[2021-02-24] MEDS: THIAMINE 100 MG TABLET PO SCH (09:28)
[2021-02-24] MEDS: NICOTINE 14 MG PATCH TOP SCH (09:31)
[2021-02-24] MEDS: GABAPENTIN 300 MG CAPSULE PO PRN ×2 (09:38→14:57)
[2021-02-24] MEDS: oxyCODONE 5 MG TABLET PO PRN ×3 (09:38→20:25)
--- NOTE | 2021-02-24 11:32 | PROVIDER PROGRESS NOTE ---
Assessment/Plan - Problem List (1) Acute on chronic systolic and diastolic heart failure, NYHA class 4 Assessment/Plan: 02/24 pt is doing well, no complaints. we will continue medical management, continue social science research assistant for placement. 02/23 pt is comfortable, and has no complaints. pt is pending for placement. social science research assistant was consulted for placement. 02/22 pt is happy for his breakfast. he feel great, no complaints. pt is pending for placement. 02/21 pt report he feel great. he ate all his breakfast. pt's central line was on a month, we will d/c and put new peripheral IV. continue metoprolol, Lasix, spironolactone and Lisinopril, digoxin, consult with social science research assistant for placement. 02/20 pt report he feel good. his digoxin is less 0.2, pt has slight elevated HR, resume his full dosage of digoxin, continue metoprolol, Lasix, spironolactone and Lisinopril. consulted with social science research assistant for placement 02/19 stable, pt report he had albuterol INH PRN before, he hope to have it again. pt had vaccinated with Covid 19, plan to d/c to [facility] for hosp[facility] care, per social science research assistant's report. 02/15 HR is 73, BP is 102/76, improved and pt has No complaints, hemodynamic stable. Continue digoxin, metoprolol, Lasix, spironolactone and Lisinopril. 02/14 pt's HR is down to 41 and low blood pressure. we will try to reduce Digoxin and metoprolol dosage and vital monitor. will continue Lasix, spironolactone and low dosage of Lisinopril. pt has EF<20% and congestive pulmonary edema. continue comfortable focus care and followup with hospice care after d/c (2) Peripheral vascular disease Impression: 02/20, Patient has no complaints, his pain is under good control 02/19 pt report he has slight more pain on his bilateral feet, pt had PRN oxyco done and Gabapentin, will continue, will monitor closely Stable. pt report Gabapentin and oxycodon are at good control to his peripheral neuropathy. continue comfortable focus care and followup with hospice care after d/c (3) COPD (chronic obstructive pulmonary disease) with emphysema Stable, no exacerbation currently. (4) Paroxysmal atrial fibrillation Impression: pt has bradycardia, HR is down to 41. reduce his digoxin and metoprolol dosage and keep vital monitor, focus on comfortable care. (5) Hepatitis Impression: Stable and reactive, Continuing current medical management/comfort care. (6) ESTEVAN (acute kidney injury) Impression: Resolved. (7) Cardiogenic shock Impression: Resolved. (8) Hyponatremia Impression: Resolved. - Current Meds Current Meds: Current Medications Generic Name Dose Route Start Last Admin Trade Name Freq PRN Reason Stop Dose Admin Digoxin 125 mcg 02/20/21 09:00 02/24/21 09:28 Digoxin 125 Mcg Tablet PO 125 mcg DAILY YONATHAN Administration Furosemide 40 mg 02/14/21 11:44 02/24/21 09:28 Furosemide 40 Mg Tablet PO 40 mg DAILY YONATHAN Administration Gabapentin 300 mg 01/31/21 07:44 02/24/21 09:38 Gabapentin 300 Mg Capsule PO 300 mg 0800,1400 PRN Administration LEG PAIN OR ANXIETY Gabapentin 600 mg 01/31/21 21:00 02/23/21 21:48 Gabapentin 300 Mg Capsule PO 600 mg QPM YONATHAN Administration Heparin Sodium (Beef Lung) 30 - 50 unit 01/27/21 09:45 02/19/21 20:52 Heparin Flush 50 Units/5 Ml Syringe IVP 150 unit PRN PRN Administration Port Protocol (<24 hours) Lisinopril 2.5 mg 02/14/21 11:42 02/23/21 09:05 Lisinopril 5 Mg Tablet PO 2.5 mg DAILY YONATHAN Administration Metoprolol Succinate 25 mg 02/24/21 07:27 02/24/21 09:28 Metoprolol Succinate 25 Mg Tablet PO 25 mg DAILY YONATHAN Administration Multivitamins 1 tab 01/19/21 08:00 02/24/21 09:28 Multivitamin Tablet PO 1 tab DAILYWM YONATHAN Administration Nicotine 1 patch 02/01/21 18:28 02/24/21 09:31 Nicotine 14 Mg Patch TOP Not Given DAILY YONATHAN Ondansetron HCl 4 mg 01/18/21 18:18 01/19/21 23:45 Ondansetron 4 Mg/2 Ml Vial IVP 4 mg Q6HR PRN Administration Nausea / Vomiting Oxycodone HCl 5 mg 01/18/21 18:18 02/24/21 09:38 Oxycodone 5 Mg Tablet PO 5 mg Q4HR PRN Administration Pain 5 to 7 Sodium Chloride 10 ml 01/18/21 18:18 02/21/21 16:40 Sodium Chloride Flush 0.9% 10 Ml Syringe IVP 10 ml PRN PRN Administration NEEDED PER PROVIDER ORDERS Sodium Chloride 10 ml 01/19/21 01:00 02/24/21 09:32 Sodium Chloride Flush 0.9% 10 Ml Syringe IVP 10 ml 0100,0900,1700 YONATHAN Administration Sodium Chloride 20 ml 01/31/21 09:19 02/15/21 23:44 Sodium Chloride Flush 0.9% 10 Ml Syringe IVP 20 ml PRN PRN Administration After Blood Draw Spironolactone 25 mg 02/14/21 11:44 02/24/21 09:28 Spironolactone 25 Mg Tablet PO 25 mg DAILY YONATHAN Administration Thiamine HCl 100 mg 01/29/21 10:30 02/24/21 09:28 Thiamine 100 Mg Tablet PO 100 mg DAILY YONATHAN Administration - Lab Result Fish Bone Diagrams: 01/30/21 14:55 01/30/21 14:55 - Additional Planning My Orders: My Active Orders 02/24/21 07:27 Metoprolol Succinate [Toprol Xl] 25 mg PO DAILY Subjective - Subjective Patient Reports: Resting Comfortably, No Complaints Objective Vital Signs: Vital Signs - 24 hr 02/23/21 02/24/21 02/24/21 16:00 00:33 08:54 Temperature 36.7 C 36.3 C L 36.6 C Heart Rate [ 85 87 64 Brachial] Respiratory 16 17 16 Rate Blood Pressure 90/67 94/64 102/70 [Right Brachial artery] O2 Saturation 98 99 100 02/24/21 09:15 Temperature Heart Rate [ 58 L Brachial] Respiratory Rate Blood Pressure 97/72 [Right Brachial artery] O2 Saturation Oxygen O2 Source Room air I&O (Last 24 Hrs): Intake and Output Totals x24h 02/22/21 02/23/21 02/24/21 23:59 23:59 23:59 Intake Total 1970 1230 540 Output Total 9989 4831 1050 Balance -234 -4118 -321 General: Alert, Oriented x3, Cooperative, No acute distress HEENT: Atraumatic Neck: Supple Lymphatic: no adenopathy Neuro: Alert, Non Focal, Oriented Times 3 Cardiovascular: Regular rate, Normal S1, Normal S2 Respiratory: Chest non-tender, No respiratory distress Abdomen: Normal bowel sounds, Soft, No tenderness Extremities: Normal pulses - Results Results: Laboratory Results WBC 9.6 x10^3/uL (4.8-10.8) 01/30/21 14:55 RBC 4.04 10^6/uL (4.70-6.10) L 01/30/21 14:55 Hgb 13.0 g/dL (14.0-18.0) L 01/30/21 14:55 Hct 40.3 % (42.0-52.0) L 01/30/21 14:55 MCV 99.8 fL (80.0-94.0) H 01/30/21 14:55 MCH 32.2 pg (27.0-31.0) H 01/30/21 14:55 MCHC 32.3 g/dL (32.0-36.0) 01/30/21 14:55 RDW 14.9 % (12.0-15.0) 01/30/21 14:55 Plt Count 211 10^3/uL (130-450) 01/30/21 14:55 MPV 10.9 fL (7.4-11.4) 01/30/21 14:55 Neut # (Auto) 7.0 10^3/uL (1.5-6.6) H 01/30/21 14:55 Lymph # (Auto) 1.4 10^3/uL (1.5-3.5) L 01/30/21 14:55 Spink # (Auto) 0.9 10^3/uL (0.0-1.0) 01/30/21 14:55 Eos # (Auto) 0.2 10^3/uL (0.0-0.7) 01/30/21 14:55 Baso # (Auto) 0.1 10^3/uL (0.0-0.1) 01/30/21 14:55 Absolute Nucleated RBC 0.00 x10^3/uL 01/30/21 14:55 Total Counted 100 01/24/21 04:26 Band Neuts % (Manual) 1 % (0-10) 01/24/21 04:26 Reactive Lymphs % (Man) 3 % 01/18/21 16:51 Abnorm Lymph % (Manual) 0 % 01/24/21 04:26 Nucleated RBC % 0.0 /100WBC 01/30/21 14:55 Neutrophils # (Manual) 6.9 10^3/uL (1.5-6.6) H 01/24/21 04:26 Lymphocytes # (Manual) 0.5 10^3/uL (1.5-3.5) L 01/24/21 04:26 Monocytes # (Manual) 1.5 10^3/uL (0.0-1.0) H 01/24/21 04:26 Eosinophils # (Manual) 0.0 10^3/uL (0-0.7) 01/24/21 04:26 Basophils # (Manual) 0.0 10^3/uL (0-0.1) 01/24/21 04:26 Differential Comment MANUAL DIFFERENTIAL 01/24/21 04:26 Manual Slide Review Indicated 01/24/21 04:26 WBC Morphology NORMAL APPEARANCE (NORMAL) 01/23/21 08:40 Platelet Estimate DECREASED (<130,000) (NORMAL) 01/24/21 04:26 Platelet Morphology NORMAL APPEARANCE (NORMAL) 01/23/21 08:40 RBC Morph Micro Appear NORMAL APPEARANCE (NORMAL) 01/23/21 08:40 PT 21.2 secs (9.9-12.6) H 01/21/21 14:51 INR 1.9 (0.8-1.2) H 01/21/21 14:51 Bld Gas Analysis Time 1311 01/21/21 13:06 Sample Site RIGHT RADIAL 01/21/21 13:06 ABG pH 7.44 (7.35-7.45) 01/21/21 13:06 ABG pCO2 30 mmHg (34-45) L 01/21/21 13:06 ABG pO2 92 mmHg (80-100) 01/21/21 13:06 ABG HCO3 19.6 mmol/L (22.0-26.0) L 01/21/21 13:06 ABG Total CO2 20.5 MMOL/L (21.0-29.0) L 01/21/21 13:06 ABG O2 Saturation 97 % (94-98) 01/21/21 13:06 ABG Base Excess -3.4 mmol/L (-2.0-3.0) L 01/21/21 13:06 Honorio Test POSITIVE 01/21/21 13:06 VBG pH 7.406 (7.31-7.41) 01/24/21 07:51 Ionized Calcium 1.06 mmol/L (1.15-1.33) L 01/24/21 07:51 O2 Delivery Device NON REBREATHER MASK 01/21/21 13:06 O2 Liters/Min 15.00 LPM 01/21/21 13:06 FiO2 100.00 01/21/21 13:06 Sodium 136 mmol/L (135-145) 01/30/21 14:55 Potassium 4.4 mmol/L (3.5-5.0) 01/30/21 14:55 Chloride 101 mmol/L (101-111) 01/30/21 14:55 Carbon Dioxide 25 mmol/L (21-32) 01/30/21 14:55 Anion Gap 10.0 (6-13) 01/30/21 14:55 BUN 17 mg/dL (6-20) 01/30/21 14:55 Creatinine 1.1 mg/dL (0.6-1.2) 01/30/21 14:55 Estimated GFR (MDRD) 69 (>89) L 01/30/21 14:55 Glucose 87 mg/dL (70-100) 01/30/21 14:55 Lactic Acid 2.0 mmol/L (0.5-2.2) 01/22/21 19:02 Calcium 8.3 mg/dL (8.5-10.3) L 01/30/21 14:55 Phosphorus 3.3 mg/dL (2.5-4.6) 01/24/21 04:26 Magnesium 1.8 mg/dL (1.7-2.8) 01/24/21 04:26 Total Bilirubin 2.1 mg/dL (0.2-1.0) H 01/28/21 05:15 Direct Bilirubin 0.9 mg/dL (0.1-0.5) H 01/23/21 04:35 AST 144 IU/L (10-42) H 01/28/21 05:15 ALT 256 IU/L (10-60) H 01/28/21 05:15 Alkaline Phosphatase 103 IU/L (42-121) 01/28/21 05:15 Troponin I High Sens 234.5 ng/L (2.3-19.7) H* 01/22/21 19:02 B-Natriuretic Peptide 4949.00 pg/mL (5-100) H 01/25/21 07:55 Total Protein 5.2 g/dL (6.7-8.2) L 01/28/21 05:15 Albumin 2.8 g/dL (3.2-5.5) L 01/28/21 05:15 Globulin 2.4 g/dL (2.1-4.2) 01/28/21 05:15 Albumin/Globulin Ratio 1.2 (1.0-2.2) 01/28/21 05:15 TSH 7.65 uIU/mL (0.34-5.60) H 01/23/21 04:35 Nasal Adenovirus (PCR) NOT DETECTED 01/18/21 18:22 Nasal B. parapertussis DNA (PCR) NOT DETECTED 01/18/21 18:22 Nasal Coronavir 229E PCR NOT DETECTED 01/18/21 18:22 Nasal Coronavir HKU1 PCR NOT DETECTED 01/18/21 18:22 Nasal Coronavir NL63 PCR NOT DETECTED 01/18/21 18:22 Nasal Coronavir OC43 PCR NOT DETECTED 01/18/21 18:22 Nasal Enterovir/Rhinovir PCR NOT DETECTED 01/18/21 18:22 Nasal Influenza B PCR NOT DETECTED 01/18/21 18:22 Nasal Influenza A PCR NOT DETECTED 01/18/21 18:22 Nasal Parainfluen 1 PCR NOT DETECTED 01/18/21 18:22 Nasal Parainfluen 2 PCR NOT DETECTED 01/18/21 18:22 Nasal Parainfluen 3 PCR NOT DETECTED 01/18/21 18:22 Nasal Parainfluen 4 PCR NOT DETECTED 01/18/21 18:22 Nasal RSV (PCR) NOT DETECTED 01/18/21 18:22 Nasal Screen MRSA (PCR) NEGATIVE (NEGATIVE) 01/21/21 12:45 Nasal B.pertussis DNA PCR NOT DETECTED 01/18/21 18:22 Nasal C.pneumoniae (PCR) NOT DETECTED 01/18/21 18:22 [place] Human Metapneumo PCR NOT DETECTED 01/18/21 18:22 Nasal M.pneumoniae (PCR) NOT DETECTED 01/18/21 18:22 Nasal SARS-CoV-2 (PCR) NOT DETECTED 01/18/21 18:22 Last Dose Date 02/19/21 02/20/21 08:15 Last Dose Time 1059 02/20/21 08:15 Digoxin < 0.2 ng/mL 02/20/21 08:15 Ethyl Alcohol < 5.0 mg/dL 01/18/21 16:51 Hepatitis A IgM Ab NON-REACTIVE (NON-REACTIVE) 01/19/21 06:19 Hep Bs Antigen NON-REACTIVE (NON-REACTIVE) 01/19/21 06:19 Hep B Core IgM Ab NON-REACTIVE (NON-REACTIVE) 01/19/21 06:19 Hepatitis C Antibody REACTIVE (NON-REACTIVE) A 01/19/21 06:19 Hep C Ab Signal/Cutoff 6.50 (<1.00) H 01/19/21 06:19 - Procedures Procedures: Procedures COLONOSCOPY (08/16/13) ABX Reporting Has patient been on IV antibiotics over the past 48 hours?: No Current Medications - Current Medications Current Medications: Active Medications Albuterol (Albuterol Neb 2.5 Mg/3 Ml) 2.5 mg INH RTQ6H PRN PRN Reason: Shortness of Air/Wheezing Digoxin (Digoxin 125 Mcg Tablet) 125 mcg PO DAILY [facility] [place] Last Admin: 02/24/21 09:28 Dose: 125 mcg Furosemide (Furosemide 40 Mg Tablet) 40 mg PO DAILY [facility] [place] Last Admin: 02/24/21 09:28 Dose: 40 mg Gabapentin (Gabapentin 300 Mg Capsule) 300 mg PO 0800,1400 PRN PRN Reason: LEG PAIN OR ANXIETY Last Admin: 02/24/21 09:38 Dose: 300 mg Gabapentin (Gabapentin 300 Mg Capsule) 600 mg PO QPM [facility] [place] Last Admin: 02/23/21 21:48 Dose: 600 mg Heparin Sodium (Beef Lung) (Heparin Flush 50 Units/5 Ml Syringe) 30 - 50 unit IVP PRN PRN PRN Reason: Port Protocol (<24 hours) Last Admin: 02/19/21 20:52 Dose: 150 unit Lisinopril (Lisinopril 5 Mg Tablet) 2.5 mg PO DAILY [facility] [place] Last Admin: 02/23/21 09:05 Dose: 2.5 mg Metoprolol Succinate (Metoprolol Succinate 25 Mg Tablet) 25 mg PO DAILY [facility] [place] Last Admin: 02/24/21 09:28 Dose: 25 mg Multivitamins (Multivitamin Tablet) 1 tab PO DAILYWM [facility] [place] Last Admin: 02/24/21 09:28 Dose: 1 tab Nicotine (Nicotine 14 Mg Patch) 1 patch TOP DAILY [facility] [place] Last Admin: 02/24/21 09:31 Dose: Not Given Ondansetron HCl (Ondansetron 4 Mg/2 Ml Vial) 4 mg IVP Q6HR PRN PRN Reason: Nausea / Vomiting Last Admin: 01/19/21 23:45 Dose: 4 mg Oxycodone HCl (Oxycodone 5 Mg Tablet) 5 mg PO Q4HR PRN PRN Reason: Pain 5 to 7 Last Admin: 02/24/21 09:38 Dose: 5 mg Sodium Chloride (Sodium Chloride Flush 0.9% 10 Ml Syringe) 10 ml IVP PRN PRN PRN Reason: NEEDED PER PROVIDER ORDERS Last Admin: 02/21/21 16:40 Dose: 10 ml Sodium Chloride (Sodium Chloride Flush 0.9% 10 Ml Syringe) 10 ml IVP 0100,0900,1700 [facility] [place] Last Admin: 02/24/21 09:32 Dose: 10 ml Sodium Chloride (Sodium Chloride Flush 0.9% 10 Ml Syringe) 20 ml IVP PRN PRN PRN Reason: After Blood Draw Last Admin: 02/15/21 23:44 Dose: 20 ml Spironolactone (Spironolactone 25 Mg Tablet) 25 mg PO DAILY [facility] [place] Last Admin: 02/24/21 09:28 Dose: 25 mg Thiamine HCl (Thiamine 100 Mg Tablet) 100 mg PO DAILY [facility] [place] Last Admin: 02/24/21 09:28 Dose: 100 mg Citalopram [CeleXA] 10 mg ORAL DAILY 09/15/20 Gabapentin [Neurontin] 300 mg PO 0800,1400 PRN 01/19/21 Gabapentin [Neurontin] 600 mg PO QPM 01/19/21 Metoprolol Succinate [Toprol Xl] 25 mg PO DAILY 01/19/21
[2021-02-24] MEDS: lisinopriL 5 MG TABLET PO SCH (13:25)
[2021-02-24] MEDS: GABAPENTIN 300 MG CAPSULE PO SCH (20:22)
[2021-02-25] MEDS: SODIUM CHLORIDE FLUSH 0.9% 10 ML SYRINGE IVP SCH ×3 (01:45→15:57)
--- NOTE | 2021-02-25 05:01 | PROVIDER PROGRESS NOTE ---
Assessment/Plan - Problem List (1) Acute on chronic systolic and diastolic heart failure, NYHA class 4 Assessment/Plan: 02/25 He continues to be stable in VS and clinical status on his current meds and management. No labs done since 01/30/21 Still awaiting placement 02/24 pt is doing well, no complaints. we will continue medical management, continue social welfare clerk for placement. 02/23 pt is comfortable, and has no complaints. pt is pending for placement. social welfare clerk was consulted for placement. 02/22 pt is happy for his breakfast. he feel great, no complaints. pt is pending for placement. 02/21 pt report he feel great. he ate all his breakfast. pt's central line was on a month, we will d/c and put new peripheral IV. continue metoprolol, Lasix, spironolactone and Lisinopril, digoxin, consult with social welfare clerk for placement. 02/20 pt report he feel good. his digoxin is less 0.2, pt has slight elevated HR, resume his full dosage of digoxin, continue metoprolol, Lasix, spironolactone and Lisinopril. consulted with social welfare clerk for placement 02/19 stable, pt report he had albuterol INH PRN before, he hope to have it again. pt had vaccinated with Covid 19, plan to d/c to [facility] for hosp[facility] care, per social welfare clerk's report. 02/15 HR is 73, BP is 102/76, improved and pt has No complaints, hemodynamic stable. Continue digoxin, metoprolol, Lasix, spironolactone and Lisinopril. 02/14 pt's HR is down to 41 and low blood pressure. we will try to reduce Digoxin and metoprolol dosage and vital monitor. will continue Lasix, spironolactone and low dosage of Lisinopril. pt has EF<20% and congestive pulmonary edema. continue comfortable focus care and followup with hospice care after d/c (2) Peripheral vascular disease Impression: 02/25 No complaints 02/20, Patient has no complaints, his pain is under good control 02/19 pt report he has slight more pain on his bilateral feet, pt had PRN oxycodone and Gabapentin, will continue, will monitor closely Stable. pt report Gabapentin and oxycodon are at good control to his peripheral neuropathy. continue comfortable focus care and followup with hospice care after d/c (3) COPD (chronic obstructive pulmonary disease) with emphysema Impression: 02/25 Stable, no exacerbation currently. (4) Paroxysmal atrial fibrillation Impression: Pt has intermittent bradycardia, HR goes down to 40's. However, after we reduced his digoxin and metoprolol dosages, resting HR is 60. Continue to monitor vital signs, will decrease to once daily, focus on comfortable care. (5) Hepatitis Impression: Stable and not active, No labs done since 01/30/21 Continuing current medical management/comfort care. (6) ESTEVAN (acute kidney injury) Impression: Resolved. No labs done since 01/30/21 (7) Cardiogenic shock Impression: Resolved. (8) Hyponatremia Impression: Resolved. - Current Meds Current Meds: Current Medications Generic Name Dose Route Start Last Admin Trade Name Freq PRN Reason Stop Dose Admin Digoxin 125 mcg 02/20/21 09:00 02/24/21 09:28 Digoxin 125 Mcg Tablet PO 125 mcg DAILY YONATHAN Administration Furosemide 40 mg 02/14/21 11:44 02/24/21 09:28 Furosemide 40 Mg Tablet PO 40 mg DAILY YONATHAN Administration Gabapentin 300 mg 01/31/21 07:44 02/24/21 14:57 Gabapentin 300 Mg Capsule PO 300 mg 0800,1400 PRN Administration LEG PAIN OR ANXIETY Gabapentin 600 mg 01/31/21 21:00 02/24/21 20:22 Gabapentin 300 Mg Capsule PO 600 mg QPM YONATHAN Administration Heparin Sodium (Beef Lung) 30 - 50 unit 01/27/21 09:45 02/19/21 20:52 Heparin Flush 50 Units/5 Ml Syringe IVP 150 unit PRN PRN Administration Port Protocol (<24 hours) Lisinopril 2.5 mg 02/14/21 11:42 02/24/21 13:25 Lisinopril 5 Mg Tablet PO 2.5 mg DAILY YONATHAN Administration Metoprolol Succinate 25 mg 02/24/21 07:27 02/24/21 09:28 Metoprolol Succinate 25 Mg Tablet PO 25 mg DAILY YONATHAN Administration Multivitamins 1 tab 01/19/21 08:00 02/24/21 09:28 Multivitamin Tablet PO 1 tab DAILYWM YONATHAN Administration Nicotine 1 patch 02/01/21 18:28 02/24/21 09:31 Nicotine 14 Mg Patch TOP Not Given DAILY YONATHAN Ondansetron HCl 4 mg 01/18/21 18:18 01/19/21 23:45 Ondansetron 4 Mg/2 Ml Vial IVP 4 mg Q6HR PRN Administration Nausea / Vomiting Oxycodone HCl 5 mg 01/18/21 18:18 02/24/21 20:25 Oxycodone 5 Mg Tablet PO 5 mg Q4HR PRN Administration Pain 5 to 7 Sodium Chloride 10 ml 01/18/21 18:18 02/21/21 16:40 Sodium Chloride Flush 0.9% 10 Ml Syringe IVP 10 ml PRN PRN Administration NEEDED PER PROVIDER ORDERS Sodium Chloride 10 ml 01/19/21 01:00 02/25/21 01:45 Sodium Chloride Flush 0.9% 10 Ml Syringe IVP 10 ml 0100,0900,1700 YONATHAN Administration Sodium Chloride 20 ml 01/31/21 09:19 02/15/21 23:44 Sodium Chloride Flush 0.9% 10 Ml Syringe IVP 20 ml PRN PRN Administration After Blood Draw Spironolactone 25 mg 02/14/21 11:44 02/24/21 09:28 Spironolactone 25 Mg Tablet PO 25 mg DAILY YONATHAN Administration Thiamine HCl 100 mg 01/29/21 10:30 02/24/21 09:28 Thiamine 100 Mg Tablet PO 100 mg DAILY YONATHAN Administration - Lab Result Fish Bone Diagrams: 01/30/21 14:55 01/30/21 14:55 Subjective - Subjective Patient Reports: Resting Comfortably, No Complaints Objective Vital Signs: Vital Signs - 24 hr 02/24/21 02/24/21 02/24/21 08:54 09:15 13:27 Temperature 36.6 C Heart Rate [ 64 58 L Brachial] Respiratory 16 Rate Blood Pressure 102/70 97/72 103/79 [Right Brachial artery] O2 Saturation 100 02/24/21 02/24/21 02/25/21 15:57 20:21 00:55 Temperature 37 C 36.7 C Heart Rate [ 71 68 82 Brachial] Respiratory 18 16 Rate Blood Pressure 96/78 117/84 H 95/68 [Right Brachial artery] O2 Saturation 96 97 Oxygen O2 Source Room air I&O (Last 24 Hrs): Intake and Output Totals x24h 02/23/21 02/24/21 02/25/21 23:59 23:59 23:59 Intake Total 1230 1670 Output Total 2030 3980 300 Balance -1545 -1030 -300 General: Alert, Oriented x3, Other (Thin white male, has owens) HEENT: Mucous membr. moist/pink Neck: Supple Neuro: Alert, Non Focal Cardiovascular: Regular rate, No murmurs Respiratory: No respiratory distress, Breath sounds nml Abdomen: Soft Extremities: No edema - Results Results: Laboratory Results WBC 9.6 x10^3/uL (4.8-10.8) 01/30/21 14:55 RBC 4.04 10^6/uL (4.70-6.10) L 01/30/21 14:55 Hgb 13.0 g/dL (14.0-18.0) L 01/30/21 14:55 Hct 40.3 % (42.0-52.0) L 01/30/21 14:55 MCV 99.8 fL (80.0-94.0) H 01/30/21 14:55 MCH 32.2 pg (27.0-31.0) H 01/30/21 14:55 MCHC 32.3 g/dL (32.0-36.0) 01/30/21 14:55 RDW 14.9 % (12.0-15.0) 01/30/21 14:55 Plt Count 211 10^3/uL (130-450) 01/30/21 14:55 MPV 10.9 fL (7.4-11.4) 01/30/21 14:55 Neut # (Auto) 7.0 10^3/uL (1.5-6.6) H 01/30/21 14:55 Lymph # (Auto) 1.4 10^3/uL (1.5-3.5) L 01/30/21 14:55 [place] # (Auto) 0.9 10^3/uL (0.0-1.0) 01/30/21 14:55 Eos # (Auto) 0.2 10^3/uL (0.0-0.7) 01/30/21 14:55 Baso # (Auto) 0.1 10^3/uL (0.0-0.1) 01/30/21 14:55 Absolute Nucleated RBC 0.00 x10^3/uL 01/30/21 14:55 Total Counted 100 01/24/21 04:26 Band Neuts % (Manual) 1 % (0-10) 01/24/21 04:26 Reactive Lymphs % (Man) 3 % 01/18/21 16:51 Abnorm Lymph % (Manual) 0 % 01/24/21 04:26 Nucleated RBC % 0.0 /100WBC 01/30/21 14:55 Neutrophils # (Manual) 6.9 10^3/uL (1.5-6.6) H 01/24/21 04:26 Lymphocytes # (Manual) 0.5 10^3/uL (1.5-3.5) L 01/24/21 04:26 Monocytes # (Manual) 1.5 10^3/uL (0.0-1.0) H 01/24/21 04:26 Eosinophils # (Manual) 0.0 10^3/uL (0-0.7) 01/24/21 04:26 Basophils # (Manual) 0.0 10^3/uL (0-0.1) 01/24/21 04:26 Differential Comment MANUAL DIFFERENTIAL 01/24/21 04:26 Manual Slide Review Indicated 01/24/21 04:26 WBC Morphology NORMAL APPEARANCE (NORMAL) 01/23/21 08:40 Platelet Estimate DECREASED (<130,000) (NORMAL) 01/24/21 04:26 Platelet Morphology NORMAL APPEARANCE (NORMAL) 01/23/21 08:40 RBC Morph Micro Appear NORMAL APPEARANCE (NORMAL) 01/23/21 08:40 PT 21.2 secs (9.9-12.6) H 01/21/21 14:51 INR 1.9 (0.8-1.2) H 01/21/21 14:51 Bld Gas Analysis Time 1311 01/21/21 13:06 Sample Site RIGHT RADIAL 01/21/21 13:06 ABG pH 7.44 (7.35-7.45) 01/21/21 13:06 ABG pCO2 30 mmHg (34-45) L 01/21/21 13:06 ABG pO2 92 mmHg (80-100) 01/21/21 13:06 ABG HCO3 19.6 mmol/L (22.0-26.0) L 01/21/21 13:06 ABG Total CO2 20.5 MMOL/L (21.0-29.0) L 01/21/21 13:06 ABG O2 Saturation 97 % (94-98) 01/21/21 13:06 ABG Base Excess -3.4 mmol/L (-2.0-3.0) L 01/21/21 13:06 Honorio Test POSITIVE 01/21/21 13:06 VBG pH 7.406 (7.31-7.41) 01/24/21 07:51 Ionized Calcium 1.06 mmol/L (1.15-1.33) L 01/24/21 07:51 O2 Delivery Device NON REBREATHER MASK 01/21/21 13:06 O2 Liters/Min 15.00 LPM 01/21/21 13:06 FiO2 100.00 01/21/21 13:06 Sodium 136 mmol/L (135-145) 01/30/21 14:55 Potassium 4.4 mmol/L (3.5-5.0) 01/30/21 14:55 Chloride 101 mmol/L (101-111) 01/30/21 14:55 Carbon Dioxide 25 mmol/L (21-32) 01/30/21 14:55 Anion Gap 10.0 (6-13) 01/30/21 14:55 BUN 17 mg/dL (6-20) 01/30/21 14:55 Creatinine 1.1 mg/dL (0.6-1.2) 01/30/21 14:55 Estimated GFR (MDRD) 69 (>89) L 01/30/21 14:55 Glucose 87 mg/dL (70-100) 01/30/21 14:55 Lactic Acid 2.0 mmol/L (0.5-2.2) 01/22/21 19:02 Calcium 8.3 mg/dL (8.5-10.3) L 01/30/21 14:55 Phosphorus 3.3 mg/dL (2.5-4.6) 01/24/21 04:26 Magnesium 1.8 mg/dL (1.7-2.8) 01/24/21 04:26 Total Bilirubin 2.1 mg/dL (0.2-1.0) H 01/28/21 05:15 Direct Bilirubin 0.9 mg/dL (0.1-0.5) H 01/23/21 04:35 AST 144 IU/L (10-42) H 01/28/21 05:15 ALT 256 IU/L (10-60) H 01/28/21 05:15 Alkaline Phosphatase 103 IU/L (42-121) 01/28/21 05:15 Troponin I High Sens 234.5 ng/L (2.3-19.7) H* 01/22/21 19:02 B-Natriuretic Peptide 4949.00 pg/mL (5-100) H 01/25/21 07:55 Total Protein 5.2 g/dL (6.7-8.2) L 01/28/21 05:15 Albumin 2.8 g/dL (3.2-5.5) L 01/28/21 05:15 Globulin 2.4 g/dL (2.1-4.2) 01/28/21 05:15 Albumin/Globulin Ratio 1.2 (1.0-2.2) 01/28/21 05:15 TSH 7.65 uIU/mL (0.34-5.60) H 01/23/21 04:35 Nasal Adenovirus (PCR) NOT DETECTED 01/18/21 18:22 Nasal B. parapertussis DNA (PCR) NOT DETECTED 01/18/21 18:22 Nasal Coronavir 229E PCR NOT DETECTED 01/18/21 18:22 Nasal Coronavir HKU1 PCR NOT DETECTED 01/18/21 18:22 Nasal Coronavir NL63 PCR NOT DETECTED 01/18/21 18:22 Nasal Coronavir OC43 PCR NOT DETECTED 01/18/21 18:22 Nasal Enterovir/Rhinovir PCR NOT DETECTED 01/18/21 18:22 Nasal Influenza B PCR NOT DETECTED 01/18/21 18:22 Nasal Influenza A PCR NOT DETECTED 01/18/21 18:22 Nasal Parainfluen 1 PCR NOT DETECTED 01/18/21 18:22 Nasal Parainfluen 2 PCR NOT DETECTED 01/18/21 18:22 Nasal Parainfluen 3 PCR NOT DETECTED 01/18/21 18:22 Nasal Parainfluen 4 PCR NOT DETECTED 01/18/21 18:22 Nasal RSV (PCR) NOT DETECTED 01/18/21 18:22 Nasal Screen MRSA (PCR) NEGATIVE (NEGATIVE) 01/21/21 12:45 Nasal B.pertussis DNA PCR NOT DETECTED 01/18/21 18:22 Nasal C.pneumoniae (PCR) NOT DETECTED 01/18/21 18:22 [place] Human Metapneumo PCR NOT DETECTED 01/18/21 18:22 Nasal M.pneumoniae (PCR) NOT DETECTED 01/18/21 18:22 Nasal SARS-CoV-2 (PCR) NOT DETECTED 01/18/21 18:22 Last Dose Date 02/19/21 02/20/21 08:15 Last Dose Time 1059 02/20/21 08:15 Digoxin < 0.2 ng/mL 02/20/21 08:15 Ethyl Alcohol < 5.0 mg/dL 01/18/21 16:51 Hepatitis A IgM Ab NON-REACTIVE (NON-REACTIVE) 01/19/21 06:19 Hep Bs Antigen NON-REACTIVE (NON-REACTIVE) 01/19/21 06:19 Hep B Core IgM Ab NON-REACTIVE (NON-REACTIVE) 01/19/21 06:19 Hepatitis C Antibody REACTIVE (NON-REACTIVE) A 01/19/21 06:19 Hep C Ab Signal/Cutoff 6.50 (<1.00) H 01/19/21 06:19 - Procedures Procedures: Procedures COLONOSCOPY (08/16/13)
[2021-02-25] MEDS: THIAMINE 100 MG TABLET PO SCH (10:23)
[2021-02-25] MEDS: FUROSEMIDE 40 MG TABLET PO SCH (10:23)
[2021-02-25] MEDS: lisinopriL 5 MG TABLET PO SCH (10:24)
[2021-02-25] MEDS: METOPROLOL SUCCINATE 25 MG TABLET PO SCH (10:24)
[2021-02-25] MEDS: oxyCODONE 5 MG TABLET PO PRN ×3 (10:24→20:54)
[2021-02-25] MEDS: DIGOXIN 125 MCG TABLET PO SCH (10:26)
[2021-02-25] MEDS: GABAPENTIN 300 MG CAPSULE PO PRN ×2 (10:27→15:55)
[2021-02-25] MEDS: SPIRONOLACTONE 25 MG TABLET PO SCH (10:27)
[2021-02-25] MEDS: MULTIVITAMIN TABLET PO SCH (10:27)
[2021-02-25] MEDS: NICOTINE 14 MG PATCH TOP SCH (10:28)
[2021-02-25] MEDS: GABAPENTIN 300 MG CAPSULE PO SCH (20:55)
[2021-02-26] MEDS: SODIUM CHLORIDE FLUSH 0.9% 10 ML SYRINGE IVP SCH ×3 (07:10→21:13)
[2021-02-26] MEDS: lisinopriL 5 MG TABLET PO SCH (08:23)
[2021-02-26] MEDS: SPIRONOLACTONE 25 MG TABLET PO SCH (08:24)
[2021-02-26] MEDS: DIGOXIN 125 MCG TABLET PO SCH (08:24)
[2021-02-26] MEDS: FUROSEMIDE 40 MG TABLET PO SCH (08:24)
[2021-02-26] MEDS: NICOTINE 14 MG PATCH TOP SCH (08:25)
[2021-02-26] MEDS: oxyCODONE 5 MG TABLET PO PRN ×2 (08:25→21:13)
[2021-02-26] MEDS: MULTIVITAMIN TABLET PO SCH (08:25)
[2021-02-26] MEDS: THIAMINE 100 MG TABLET PO SCH (08:25)
[2021-02-26] MEDS: GABAPENTIN 300 MG CAPSULE PO PRN (08:25)
[2021-02-26] MEDS: METOPROLOL SUCCINATE 25 MG TABLET PO SCH (08:25)
--- NOTE | 2021-02-26 09:35 | PROVIDER PROGRESS NOTE ---
Progress Note February 26, 2021 9:30 AM Cheerful gentleman. Awaiting placement. Presented as acute on chronic systolic heart failure. He has an ejection fraction of less than 20%. Overall plan is that of hospice care once he is in a facility. He states that all of his belongings are at [facility] on [address] in [place]. He feels like he is stable. Do not call His weight on admission was 66.5 kg. He is at 60 kg for the last week. Medication is albuterol, Lanoxin, Lasix p.o., Neurontin, heparin subcu, Zestril, Toprol-XL, Theragran, NicoDerm, Zofran as needed, oxycodone as needed. Aldactone daily, thiamine daily. Temperature is 36.5. Heart rate 80. Blood pressure 103/78. Respirations 20. 96% on room air. He is an alert oriented very pleasant white male. He laments that his hair is gotten so long and shaggy, and his owens is not trimmed. He is hoping to get his owens tremor with his belongings at [facility]. Neck is supple Lungs have diminished breath sounds at the bases but he does not have labored respiration, regular rate and rhythm. PMI laterally displaced. Soft systolic ejection murmur. Abdomen is soft, nontender. Last BM February 25. Legs have mid nelson to foot pinkness and erythema. But they are not hot, it is blanching. Appears to be rubor from dependent state not infection. But there is no edema. Assessment/plan 1. Acute on chronic systolic heart failure with cardiogenic shock on admission. Those have resolved. He is now in chronic systolic heart failure with resolution of his acute phase and cardiogenic shock.. This was his recent admission. He has been gradually diuresed, rate has been controlled, and he is lost weight overall with diuresis. Clinically stable. We have been awaiting placement. The original plan was for him to be discharged to a local alf facility on February 28 with hospice. Those plans of following through for unknown reasons. 2. Peripheral vascular disease. Legs show intermittent rubor but no chelsea cyanosis. He has onychomycosis of his toenails but no ischemic ulcers. Pain is controlled with Neurontin and oxycodone. 3. COPD without exacerbation. As needed nebulizers of controlled him. 4. Paroxysmal atrial fibrillation. Unfortunately with our rate control he gets intermittent bradycardia. His digoxin and metoprolol were adjusted. We are focused on comfort measures. Not a candidate for pacer. 5. Acute kidney injury. That has been resolved. His admission creatinine was 2.4. Came down to 0.9 on January 28. Came back up to 1.1 and his January 30. No labs done since then. We will check BMP today. 6. Hyponatremia to 128 on admission. Gradually improved with his diuresis and he was 136 on January 30.
[2021-02-26] MEDS: GABAPENTIN 300 MG CAPSULE PO SCH (21:13)
[2021-02-27] MEDS: SODIUM CHLORIDE FLUSH 0.9% 10 ML SYRINGE IVP SCH ×3 (10:22→15:45)
[2021-02-27] MEDS: MULTIVITAMIN TABLET PO SCH (10:23)
[2021-02-27] MEDS: METOPROLOL SUCCINATE 25 MG TABLET PO SCH (10:23)
[2021-02-27] MEDS: oxyCODONE 5 MG TABLET PO PRN ×2 (10:23→15:44)
[2021-02-27] MEDS: GABAPENTIN 300 MG CAPSULE PO PRN ×2 (10:23→15:44)
[2021-02-27] MEDS: FUROSEMIDE 40 MG TABLET PO SCH (10:24)
[2021-02-27] MEDS: DIGOXIN 125 MCG TABLET PO SCH (10:24)
[2021-02-27] MEDS: THIAMINE 100 MG TABLET PO SCH (10:24)
[2021-02-27] MEDS: lisinopriL 5 MG TABLET PO SCH (10:24)
[2021-02-27] MEDS: SPIRONOLACTONE 25 MG TABLET PO SCH (10:24)
[2021-02-27] MEDS: NICOTINE 14 MG PATCH TOP SCH (10:25)
--- NOTE | 2021-02-27 12:16 | PROVIDER PROGRESS NOTE ---
Assessment/Plan - Problem List (1) Acute on chronic systolic and diastolic heart failure, NYHA class 4 Assessment/Plan: 02/27 Patient feel comfortable. he has no complaints. continue current meds and management. pt is pending on placement, outreach and education social worker was consulted for placement. 02/25 He continues to be stable in VS and clinical status on his current meds and management. No labs done since 01/30/21 Still awaiting placement 02/24 pt is doing well, no complaints. we will continue medical management, continue outreach and education social worker for placement. 02/23 pt is comfortable, and has no complaints. pt is pending for placement. outreach and education social worker was consulted for placement. 02/22 pt is happy for his breakfast. he feel great, no complaints. pt is pending for placement. 02/21 pt report he feel great. he ate all his breakfast. pt's central line was on a month, we will d/c and put new peripheral IV. continue metoprolol, Lasix, spironolactone and Lisinopril, digoxin, consult with outreach and education social worker for placement. 02/20 pt report he feel good. his digoxin is less 0.2, pt has slight elevated HR, resume his full dosage of digoxin, continue metoprolol, Lasix, spironolactone and Lisinopril. consulted with outreach and education social worker for placement 02/19 stable, pt report he had albuterol INH PRN before, he hope to have it again . pt had vaccinated with Covid 19, plan to d/c to [facility] on 02/28 for hospice care, per outreach and education social worker's report. 02/15 HR is 73, BP is 102/76, improved and pt has No complaints, hemodynamic stable. Continue digoxin, metoprolol, Lasix, spironolactone and Lisinopril. 02/14 pt's HR is down to 41 and low blood pressure. we will try to reduce Digoxin and metoprolol dosage and vital monitor. will continue Lasix, spironolactone and low dosage of Lisinopril. pt has EF<20% and congestive pulmonary edema. continue comfortable focus care and followup with hospice care after d/c (2) Peripheral vascular disease Impression: pt has no complaint, pain is controlled. (3) COPD (chronic obstructive pulmonary disease) with emphysema Impression: Stable, no exacerbation currently. (4) Paroxysmal atrial fibrillation Impression: stable, continue dignoxin and metoprolol Continue to monitor vital signs, focus on comfortable care. (5) Hepatitis Impression: Stable (6) ESTEVAN (acute kidney injury) Impression: Resolved. (7) Cardiogenic shock Impression: Resolved. (8) Hyponatremia Impression: Resolved. - Current Meds Current Meds: Current Medications Generic Name Dose Route Start Last Admin Trade Name Freq PRN Reason Stop Dose Admin Digoxin 125 mcg 02/20/21 09:00 02/27/21 10:24 Digoxin 125 Mcg Tablet PO 125 mcg DAILY YONATHAN Administration Furosemide 40 mg 02/14/21 11:44 02/27/21 10:24 Furosemide 40 Mg Tablet PO 40 mg DAILY YONATHAN Administration Gabapentin 300 mg 01/31/21 07:44 02/27/21 10:23 Gabapentin 300 Mg Capsule PO 300 mg 0800,1400 PRN Administration LEG PAIN OR ANXIETY Gabapentin 600 mg 01/31/21 21:00 02/26/21 21:13 Gabapentin 300 Mg Capsule PO 600 mg QPM YONATHAN Administration Heparin Sodium (Beef Lung) 30 - 50 unit 01/27/21 09:45 02/19/21 20:52 Heparin Flush 50 Units/5 Ml Syringe IVP 150 unit PRN PRN Administration Port Protocol (<24 hours) Lisinopril 2.5 mg 02/14/21 11:42 02/27/21 10:24 Lisinopril 5 Mg Tablet PO 2.5 mg DAILY YONATHAN Administration Metoprolol Succinate 25 mg 02/24/21 07:27 02/27/21 10:23 Metoprolol Succinate 25 Mg Tablet PO 25 mg DAILY YONATHAN Administration Multivitamins 1 tab 01/19/21 08:00 02/27/21 10:23 Multivitamin Tablet PO 1 tab DAILYWM YONATHAN Administration Nicotine 1 patch 02/01/21 18:28 02/27/21 10:25 Nicotine 14 Mg Patch TOP Not Given DAILY YONATHAN Ondansetron HCl 4 mg 01/18/21 18:18 01/19/21 23:45 Ondansetron 4 Mg/2 Ml Vial IVP 4 mg Q6HR PRN Administration Nausea / Vomiting Oxycodone HCl 5 mg 01/18/21 18:18 02/27/21 10:23 Oxycodone 5 Mg Tablet PO 5 mg Q4HR PRN Administration Pain 5 to 7 Sodium Chloride 10 ml 01/18/21 18:18 02/21/21 16:40 Sodium Chloride Flush 0.9% 10 Ml Syringe IVP 10 ml PRN PRN Administration NEEDED PER PROVIDER ORDERS Sodium Chloride 10 ml 01/19/21 01:00 02/27/21 10:27 Sodium Chloride Flush 0.9% 10 Ml Syringe IVP 10 ml 0100,0900,1700 YONATHAN Administration Sodium Chloride 20 ml 01/31/21 09:19 02/15/21 23:44 Sodium Chloride Flush 0.9% 10 Ml Syringe IVP 20 ml PRN PRN Administration After Blood Draw Spironolactone 25 mg 02/14/21 11:44 02/27/21 10:24 Spironolactone 25 Mg Tablet PO 25 mg DAILY YONATHAN Administration Thiamine HCl 100 mg 01/29/21 10:30 02/27/21 10:24 Thiamine 100 Mg Tablet PO 100 mg DAILY YONATHAN Administration - Lab Result Fish Bone Diagrams: 01/30/21 14:55 01/30/21 14:55 Subjective - Subjective Patient Reports: Resting Comfortably Objective Vital Signs: Vital Signs - 24 hr 02/27/21 02/27/21 08:07 10:28 Temperature 36.6 C Heart Rate [ 68 Apical] Heart Rate [ 64 Radial] Respiratory 20 Rate Blood Pressure 97/79 121/61 [Right Brachial artery] O2 Saturation 94 Oxygen O2 Source Room air I&O (Last 24 Hrs): Intake and Output Totals x24h 02/25/21 02/26/21 02/27/21 23:59 23:59 23:59 Intake Total 1326 1720 540 Output Total 1999 1675 875 Balance -674 45 -335 General: Alert, Oriented x3, Cooperative, No acute distress HEENT: Atraumatic Neck: Supple Lymphatic: no adenopathy Neuro: Alert, Non Focal, Oriented Times 3 Cardiovascular: Regular rate, Normal S1 Respiratory: Chest non-tender, No respiratory distress Abdomen: Normal bowel sounds, Soft, No tenderness Extremities: Normal pulses - Results Results: Laboratory Results WBC 9.6 x10^3/uL (4.8-10.8) 01/30/21 14:55 RBC 4.04 10^6/uL (4.70-6.10) L 01/30/21 14:55 Hgb 13.0 g/dL (14.0-18.0) L 01/30/21 14:55 Hct 40.3 % (42.0-52.0) L 01/30/21 14:55 MCV 99.8 fL (80.0-94.0) H 01/30/21 14:55 MCH 32.2 pg (27.0-31.0) H 01/30/21 14:55 MCHC 32.3 g/dL (32.0-36.0) 01/30/21 14:55 RDW 14.9 % (12.0-15.0) 01/30/21 14:55 Plt Count 211 10^3/uL (130-450) 01/30/21 14:55 MPV 10.9 fL (7.4-11.4) 01/30/21 14:55 Neut # (Auto) 7.0 10^3/uL (1.5-6.6) H 01/30/21 14:55 Lymph # (Auto) 1.4 10^3/uL (1.5-3.5) L 01/30/21 14:55 Cloud # (Auto) 0.9 10^3/uL (0.0-1.0) 01/30/21 14:55 Eos # (Auto) 0.2 10^3/uL (0.0-0.7) 01/30/21 14:55 Baso # (Auto) 0.1 10^3/uL (0.0-0.1) 01/30/21 14:55 Absolute Nucleated RBC 0.00 x10^3/uL 01/30/21 14:55 Total Counted 100 01/24/21 04:26 Band Neuts % (Manual) 1 % (0-10) 01/24/21 04:26 Reactive Lymphs % (Man) 3 % 01/18/21 16:51 Abnorm Lymph % (Manual) 0 % 01/24/21 04:26 Nucleated RBC % 0.0 /100WBC 01/30/21 14:55 Neutrophils # (Manual) 6.9 10^3/uL (1.5-6.6) H 01/24/21 04:26 Lymphocytes # (Manual) 0.5 10^3/uL (1.5-3.5) L 01/24/21 04:26 Monocytes # (Manual) 1.5 10^3/uL (0.0-1.0) H 01/24/21 04:26 Eosinophils # (Manual) 0.0 10^3/uL (0-0.7) 01/24/21 04:26 Basophils # (Manual) 0.0 10^3/uL (0-0.1) 01/24/21 04:26 Differential Comment MANUAL DIFFERENTIAL 01/24/21 04:26 Manual Slide Review Indicated 01/24/21 04:26 WBC Morphology NORMAL APPEARANCE (NORMAL) 01/23/21 08:40 Platelet Estimate DECREASED (<130,000) (NORMAL) 01/24/21 04:26 Platelet Morphology NORMAL APPEARANCE (NORMAL) 01/23/21 08:40 RBC Morph Micro Appear NORMAL APPEARANCE (NORMAL) 01/23/21 08:40 PT 21.2 secs (9.9-12.6) H 01/21/21 14:51 INR 1.9 (0.8-1.2) H 01/21/21 14:51 Bld Gas Analysis Time 1311 01/21/21 13:06 Sample Site RIGHT RADIAL 01/21/21 13:06 ABG pH 7.44 (7.35-7.45) 01/21/21 13:06 ABG pCO2 30 mmHg (34-45) L 01/21/21 13:06 ABG pO2 92 mmHg (80-100) 01/21/21 13:06 ABG HCO3 19.6 mmol/L (22.0-26.0) L 01/21/21 13:06 ABG Total CO2 20.5 MMOL/L (21.0-29.0) L 01/21/21 13:06 ABG O2 Saturation 97 % (94-98) 01/21/21 13:06 ABG Base Excess -3.4 mmol/L (-2.0-3.0) L 01/21/21 13:06 Honorio Test POSITIVE 01/21/21 13:06 VBG pH 7.406 (7.31-7.41) 01/24/21 07:51 Ionized Calcium 1.06 mmol/L (1.15-1.33) L 01/24/21 07:51 O2 Delivery Device NON REBREATHER MASK 01/21/21 13:06 O2 Liters/Min 15.00 LPM 01/21/21 13:06 FiO2 100.00 01/21/21 13:06 Sodium 136 mmol/L (135-145) 01/30/21 14:55 Potassium 4.4 mmol/L (3.5-5.0) 01/30/21 14:55 Chloride 101 mmol/L (101-111) 01/30/21 14:55 Carbon Dioxide 25 mmol/L (21-32) 01/30/21 14:55 Anion Gap 10.0 (6-13) 01/30/21 14:55 BUN 17 mg/dL (6-20) 01/30/21 14:55 Creatinine 1.1 mg/dL (0.6-1.2) 01/30/21 14:55 Estimated GFR (MDRD) 69 (>89) L 01/30/21 14:55 Glucose 87 mg/dL (70-100) 01/30/21 14:55 Lactic Acid 2.0 mmol/L (0.5-2.2) 01/22/21 19:02 Calcium 8.3 mg/dL (8.5-10.3) L 01/30/21 14:55 Phosphorus 3.3 mg/dL (2.5-4.6) 01/24/21 04:26 Magnesium 1.8 mg/dL (1.7-2.8) 01/24/21 04:26 Total Bilirubin 2.1 mg/dL (0.2-1.0) H 01/28/21 05:15 Direct Bilirubin 0.9 mg/dL (0.1-0.5) H 01/23/21 04:35 AST 144 IU/L (10-42) H 01/28/21 05:15 ALT 256 IU/L (10-60) H 01/28/21 05:15 Alkaline Phosphatase 103 IU/L (42-121) 01/28/21 05:15 Troponin I High Sens 234.5 ng/L (2.3-19.7) H* 01/22/21 19:02 B-Natriuretic Peptide 4949.00 pg/mL (5-100) H 01/25/21 07:55 Total Protein 5.2 g/dL (6.7-8.2) L 01/28/21 05:15 Albumin 2.8 g/dL (3.2-5.5) L 01/28/21 05:15 Globulin 2.4 g/dL (2.1-4.2) 01/28/21 05:15 Albumin/Globulin Ratio 1.2 (1.0-2.2) 01/28/21 05:15 TSH 7.65 uIU/mL (0.34-5.60) H 01/23/21 04:35 Nasal Adenovirus (PCR) NOT DETECTED 01/18/21 18:22 Nasal B. parapertussis DNA (PCR) NOT DETECTED 01/18/21 18:22 Nasal Coronavir 229E PCR NOT DETECTED 01/18/21 18:22 Nasal Coronavir HKU1 PCR NOT DETECTED 01/18/21 18:22 Nasal Coronavir NL63 PCR NOT DETECTED 01/18/21 18:22 Nasal Coronavir OC43 PCR NOT DETECTED 01/18/21 18:22 Nasal Enterovir/Rhinovir PCR NOT DETECTED 01/18/21 18:22 Nasal Influenza B PCR NOT DETECTED 01/18/21 18:22 Nasal Influenza A PCR NOT DETECTED 01/18/21 18:22 Nasal Parainfluen 1 PCR NOT DETECTED 01/18/21 18:22 Nasal Parainfluen 2 PCR NOT DETECTED 01/18/21 18:22 Nasal Parainfluen 3 PCR NOT DETECTED 01/18/21 18:22 Nasal Parainfluen 4 PCR NOT DETECTED 01/18/21 18:22 Nasal RSV (PCR) NOT DETECTED 01/18/21 18:22 Nasal Screen MRSA (PCR) NEGATIVE (NEGATIVE) 01/21/21 12:45 Nasal B.pertussis DNA PCR NOT DETECTED 01/18/21 18:22 Nasal C.pneumoniae (PCR) NOT DETECTED 01/18/21 18:22 [place] Human Metapneumo PCR NOT DETECTED 01/18/21 18:22 Nasal M.pneumoniae (PCR) NOT DETECTED 01/18/21 18:22 Nasal SARS-CoV-2 (PCR) NOT DETECTED 01/18/21 18:22 Last Dose Date 02/19/21 02/20/21 08:15 Last Dose Time 1059 02/20/21 08:15 Digoxin < 0.2 ng/mL 02/20/21 08:15 Ethyl Alcohol < 5.0 mg/dL 01/18/21 16:51 Hepatitis A IgM Ab NON-REACTIVE (NON-REACTIVE) 01/19/21 06:19 Hep Bs Antigen NON-REACTIVE (NON-REACTIVE) 01/19/21 06:19 Hep B Core IgM Ab NON-REACTIVE (NON-REACTIVE) 01/19/21 06:19 Hepatitis C Antibody REACTIVE (NON-REACTIVE) A 01/19/21 06:19 Hep C Ab Signal/Cutoff 6.50 (<1.00) H 01/19/21 06:19 - Procedures Procedures: Procedures COLONOSCOPY (08/16/13) ABX Reporting Has patient been on IV antibiotics over the past 48 hours?: No Current Medications - Current Medications Current Medications: Active Medications Albuterol (Albuterol Neb 2.5 Mg/3 Ml) 2.5 mg INH RTQ6H PRN PRN Reason: Shortness of Air/Wheezing Digoxin (Digoxin 125 Mcg Tablet) 125 mcg PO DAILY [facility] Last Admin: 02/27/21 10:24 Dose: 125 mcg Furosemide (Furosemide 40 Mg Tablet) 40 mg PO DAILY [facility] Last Admin: 02/27/21 10:24 Dose: 40 mg Gabapentin (Gabapentin 300 Mg Capsule) 300 mg PO 0800,1400 PRN PRN Reason: LEG PAIN OR ANXIETY Last Admin: 02/27/21 10:23 Dose: 300 mg Gabapentin (Gabapentin 300 Mg Capsule) 600 mg PO QPM [facility] Last Admin: 02/26/21 21:13 Dose: 600 mg Heparin Sodium (Beef Lung) (Heparin Flush 50 Units/5 Ml Syringe) 30 - 50 unit IVP PRN PRN PRN Reason: Port Protocol (<24 hours) Last Admin: 02/19/21 20:52 Dose: 150 unit Lisinopril (Lisinopril 5 Mg Tablet) 2.5 mg PO DAILY [facility] Last Admin: 02/27/21 10:24 Dose: 2.5 mg Metoprolol Succinate (Metoprolol Succinate 25 Mg Tablet) 25 mg PO DAILY [facility] Last Admin: 02/27/21 10:23 Dose: 25 mg Multivitamins (Multivitamin Tablet) 1 tab PO DAILYWM [facility] Last Admin: 02/27/21 10:23 Dose: 1 tab Nicotine (Nicotine 14 Mg Patch) 1 patch TOP DAILY [facility] Last Admin: 02/27/21 10:25 Dose: Not Given Ondansetron HCl (Ondansetron 4 Mg/2 Ml Vial) 4 mg IVP Q6HR PRN PRN Reason: Nausea / Vomiting Last Admin: 01/19/21 23:45 Dose: 4 mg Oxycodone HCl (Oxycodone 5 Mg Tablet) 5 mg PO Q4HR PRN PRN Reason: Pain 5 to 7 Last Admin: 02/27/21 10:23 Dose: 5 mg Sodium Chloride (Sodium Chloride Flush 0.9% 10 Ml Syringe) 10 ml IVP PRN PRN PRN Reason: NEEDED PER PROVIDER ORDERS Last Admin: 02/21/21 16:40 Dose: 10 ml Sodium Chloride (Sodium Chloride Flush 0.9% 10 Ml Syringe) 10 ml IVP 0100,0900,1700 [facility] Last Admin: 02/27/21 10:27 Dose: 10 ml Sodium Chloride (Sodium Chloride Flush 0.9% 10 Ml Syringe) 20 ml IVP PRN PRN PRN Reason: After Blood Draw Last Admin: 02/15/21 23:44 Dose: 20 ml Spironolactone (Spironolactone 25 Mg Tablet) 25 mg PO DAILY [facility] Last Admin: 02/27/21 10:24 Dose: 25 mg Thiamine HCl (Thiamine 100 Mg Tablet) 100 mg PO DAILY [facility] Last Admin: 02/27/21 10:24 Dose: 100 mg Citalopram [CeleXA] 10 mg ORAL DAILY 09/15/20 Gabapentin [Neurontin] 300 mg PO 0800,1400 PRN 01/19/21 Gabapentin [Neurontin] 600 mg PO QPM 01/19/21 Metoprolol Succinate [Toprol Xl] 25 mg PO DAILY 01/19/21
[2021-02-27] MEDS: GABAPENTIN 300 MG CAPSULE PO SCH (21:12)
[2021-02-28] MEDS: SODIUM CHLORIDE FLUSH 0.9% 10 ML SYRINGE IVP SCH ×4 (01:31→22:23)
[2021-02-28] MEDS: oxyCODONE 5 MG TABLET PO PRN (06:55)
[2021-02-28] MEDS: GABAPENTIN 300 MG CAPSULE PO PRN ×2 (08:34→14:41)
[2021-02-28] MEDS: SPIRONOLACTONE 25 MG TABLET PO SCH (08:34)
[2021-02-28] MEDS: MULTIVITAMIN TABLET PO SCH (08:35)
[2021-02-28] MEDS: lisinopriL 5 MG TABLET PO SCH (08:35)
[2021-02-28] MEDS: METOPROLOL SUCCINATE 25 MG TABLET PO SCH (08:35)
[2021-02-28] MEDS: NICOTINE 14 MG PATCH TOP SCH (08:35)
[2021-02-28] MEDS: DIGOXIN 125 MCG TABLET PO SCH (08:35)
[2021-02-28] MEDS: THIAMINE 100 MG TABLET PO SCH (08:35)
[2021-02-28] MEDS: FUROSEMIDE 40 MG TABLET PO SCH (08:35)
--- NOTE | 2021-02-28 10:49 | PROVIDER PROGRESS NOTE ---
Assessment/Plan - Problem List (1) Acute on chronic systolic and diastolic heart failure, NYHA class 4 Assessment/Plan: 02/28 pt is pleasant and no complaints. pt is pending on placement, nephrology social worker was consulted for placement. 02/27 Patient feel comfortable. he has no complaints. continue current meds and management. pt is pending on placement, nephrology social worker was consulted for placement. 02/25 He continues to be stable in VS and clinical status on his current meds and management. No labs done since 01/30/21 Still awaiting placement 02/24 pt is doing well, no complaints. we will continue medical management, continue nephrology social worker for placement. 02/23 pt is comfortable, and has no complaints. pt is pending for placement. nephrology social worker was consulted for placement. 02/22 pt is happy for his breakfast. he feel great, no complaints. pt is pending for placement. 02/21 pt report he feel great. he ate all his breakfast. pt's central line was on a month, we will d/c and put new peripheral IV. continue metoprolol, Lasix, spironolactone and Lisinopril, digoxin, consult with nephrology social worker for placement. 02/20 pt report he feel good. his digoxin is less 0.2, pt has slight elevated HR, resume his full dosage of digoxin, continue metoprolol, Lasix, spironolactone and Lisinopril. consulted with nephrology social worker for placement 02/19 stable, pt report he had albuterol INH PRN before, he hope to have it again. pt had vaccinated with Covid 19, plan to d/c to [facility] for hosp[facility] care, per nephrology social worker's report. 02/15 HR is 73, BP is 102/76, improved and pt has No complaints, hemodynamic stable. Continue digoxin, metoprolol, Lasix, spironolactone and Lisinopril. 02/14 pt's HR is down to 41 and low blood pressure. we will try to reduce Digoxin and metoprolol dosage and vital monitor. will continue Lasix, spironolactone and low dosage of Lisinopril. pt has EF<20% and congestive pulmonary edema. continue comfortable focus care and followup with hospice care after d/c (2) Peripheral vascular disease Impression: pt has no complaint, pain is controlled. (3) COPD (chronic obstructive pulmonary disease) with emphysema Impression: Stable, no exacerbation currently. (4) Paroxysmal atrial fibrillation Impression: stable, continue dignoxin and metoprolol Continue to monitor vital signs, focus on comfortable care. (5) Hepatitis Impression: Stable (6) ESTEVAN (acute kidney injury) Impression: Resolved. (7) Cardiogenic shock Impression: Resolved. (8) Hyponatremia Impression: Resolved. - Current Meds Current Meds: Current Medications Generic Name Dose Route Start Last Admin Trade Name Freq PRN Reason Stop Dose Admin Digoxin 125 mcg 02/20/21 09:00 02/28/21 08:35 Digoxin 125 Mcg Tablet PO 125 mcg DAILY YONATHAN Administration Furosemide 40 mg 02/14/21 11:44 02/28/21 08:35 Furosemide 40 Mg Tablet PO 40 mg DAILY YONATHAN Administration Gabapentin 300 mg 01/31/21 07:44 02/28/21 08:34 Gabapentin 300 Mg Capsule PO 300 mg 0800,1400 PRN Administration LEG PAIN OR ANXIETY Gabapentin 600 mg 01/31/21 21:00 02/27/21 21:12 Gabapentin 300 Mg Capsule PO 600 mg QPM YONATHAN Administration Heparin Sodium (Beef Lung) 30 - 50 unit 01/27/21 09:45 02/19/21 20:52 Heparin Flush 50 Units/5 Ml Syringe IVP 150 unit PRN PRN Administration Port Protocol (<24 hours) Lisinopril 2.5 mg 02/14/21 11:42 02/28/21 08:35 Lisinopril 5 Mg Tablet PO 2.5 mg DAILY YONATHAN Administration Metoprolol Succinate 25 mg 02/24/21 07:27 02/28/21 08:35 Metoprolol Succinate 25 Mg Tablet PO 25 mg DAILY YONATHAN Administration Multivitamins 1 tab 01/19/21 08:00 02/28/21 08:35 Multivitamin Tablet PO 1 tab DAILYWM YONATHAN Administration Nicotine 1 patch 02/01/21 18:28 02/28/21 08:35 Nicotine 14 Mg Patch TOP Not Given DAILY YONATHAN Ondansetron HCl 4 mg 01/18/21 18:18 01/19/21 23:45 Ondansetron 4 Mg/2 Ml Vial IVP 4 mg Q6HR PRN Administration Nausea / Vomiting Oxycodone HCl 5 mg 01/18/21 18:18 02/28/21 06:55 Oxycodone 5 Mg Tablet PO 5 mg Q4HR PRN Administration Pain 5 to 7 Sodium Chloride 10 ml 01/18/21 18:18 02/21/21 16:40 Sodium Chloride Flush 0.9% 10 Ml Syringe IVP 10 ml PRN PRN Administration NEEDED PER PROVIDER ORDERS Sodium Chloride 10 ml 01/19/21 01:00 02/28/21 08:35 Sodium Chloride Flush 0.9% 10 Ml Syringe IVP 10 ml 0100,0900,1700 YONATHAN Administration Sodium Chloride 20 ml 01/31/21 09:19 02/15/21 23:44 Sodium Chloride Flush 0.9% 10 Ml Syringe IVP 20 ml PRN PRN Administration After Blood Draw Spironolactone 25 mg 02/14/21 11:44 02/28/21 08:34 Spironolactone 25 Mg Tablet PO 25 mg DAILY YONATHAN Administration Thiamine HCl 100 mg 01/29/21 10:30 02/28/21 08:35 Thiamine 100 Mg Tablet PO 100 mg DAILY YONATHAN Administration - Lab Result Fish Bone Diagrams: 01/30/21 14:55 01/30/21 14:55 Subjective - Subjective Patient Reports: Resting Comfortably Objective Vital Signs: Vital Signs - 24 hr 02/27/21 02/28/21 15:37 08:59 Temperature 36.6 C 36.4 C L Heart Rate [ 85 Brachial] Heart Rate [ 53 L Radial] Respiratory 19 18 Rate Blood Pressure 101/72 120/92 H [Right Brachial artery] O2 Saturation 99 99 Oxygen O2 Source Room air I&O (Last 24 Hrs): Intake and Output Totals x24h 02/26/21 02/27/21 02/28/21 23:59 23:59 23:59 Intake Total 1720 1370 540 Output Total 1675 2050 1375 Balance 45 -077 -375 General: Alert, Oriented x3, Cooperative, No acute distress HEENT: Atraumatic Neck: Supple Lymphatic: no adenopathy Neuro: Alert, Non Focal, Oriented Times 3 Cardiovascular: Regular rate, Normal S1, Normal S2 Respiratory: Chest non-tender, No respiratory distress Abdomen: Normal bowel sounds, Soft Extremities: Normal pulses - Results Results: Laboratory Results WBC 9.6 x10^3/uL (4.8-10.8) 01/30/21 14:55 RBC 4.04 10^6/uL (4.70-6.10) L 01/30/21 14:55 Hgb 13.0 g/dL (14.0-18.0) L 01/30/21 14:55 Hct 40.3 % (42.0-52.0) L 01/30/21 14:55 MCV 99.8 fL (80.0-94.0) H 01/30/21 14:55 MCH 32.2 pg (27.0-31.0) H 01/30/21 14:55 MCHC 32.3 g/dL (32.0-36.0) 01/30/21 14:55 RDW 14.9 % (12.0-15.0) 01/30/21 14:55 Plt Count 211 10^3/uL (130-450) 01/30/21 14:55 MPV 10.9 fL (7.4-11.4) 01/30/21 14:55 Neut # (Auto) 7.0 10^3/uL (1.5-6.6) H 01/30/21 14:55 Lymph # (Auto) 1.4 10^3/uL (1.5-3.5) L 01/30/21 14:55 Gage # (Auto) 0.9 10^3/uL (0.0-1.0) 01/30/21 14:55 Eos # (Auto) 0.2 10^3/uL (0.0-0.7) 01/30/21 14:55 Baso # (Auto) 0.1 10^3/uL (0.0-0.1) 01/30/21 14:55 Absolute Nucleated RBC 0.00 x10^3/uL 01/30/21 14:55 Total Counted 100 01/24/21 04:26 Band Neuts % (Manual) 1 % (0-10) 01/24/21 04:26 Reactive Lymphs % (Man) 3 % 01/18/21 16:51 Abnorm Lymph % (Manual) 0 % 01/24/21 04:26 Nucleated RBC % 0.0 /100WBC 01/30/21 14:55 Neutrophils # (Manual) 6.9 10^3/uL (1.5-6.6) H 01/24/21 04:26 Lymphocytes # (Manual) 0.5 10^3/uL (1.5-3.5) L 01/24/21 04:26 Monocytes # (Manual) 1.5 10^3/uL (0.0-1.0) H 01/24/21 04:26 Eosinophils # (Manual) 0.0 10^3/uL (0-0.7) 01/24/21 04:26 Basophils # (Manual) 0.0 10^3/uL (0-0.1) 01/24/21 04:26 Differential Comment MANUAL DIFFERENTIAL 01/24/21 04:26 Manual Slide Review Indicated 01/24/21 04:26 WBC Morphology NORMAL APPEARANCE (NORMAL) 01/23/21 08:40 Platelet Estimate DECREASED (<130,000) (NORMAL) 01/24/21 04:26 Platelet Morphology NORMAL APPEARANCE (NORMAL) 01/23/21 08:40 RBC Morph Micro Appear NORMAL APPEARANCE (NORMAL) 01/23/21 08:40 PT 21.2 secs (9.9-12.6) H 01/21/21 14:51 INR 1.9 (0.8-1.2) H 01/21/21 14:51 Bld Gas Analysis Time 1311 01/21/21 13:06 Sample Site RIGHT RADIAL 01/21/21 13:06 ABG pH 7.44 (7.35-7.45) 01/21/21 13:06 ABG pCO2 30 mmHg (34-45) L 01/21/21 13:06 ABG pO2 92 mmHg (80-100) 01/21/21 13:06 ABG HCO3 19.6 mmol/L (22.0-26.0) L 01/21/21 13:06 ABG Total CO2 20.5 MMOL/L (21.0-29.0) L 01/21/21 13:06 ABG O2 Saturation 97 % (94-98) 01/21/21 13:06 ABG Base Excess -3.4 mmol/L (-2.0-3.0) L 01/21/21 13:06 Honorio Test POSITIVE 01/21/21 13:06 VBG pH 7.406 (7.31-7.41) 01/24/21 07:51 Ionized Calcium 1.06 mmol/L (1.15-1.33) L 01/24/21 07:51 O2 Delivery Device NON REBREATHER MASK 01/21/21 13:06 O2 Liters/Min 15.00 LPM 01/21/21 13:06 FiO2 100.00 01/21/21 13:06 Sodium 136 mmol/L (135-145) 01/30/21 14:55 Potassium 4.4 mmol/L (3.5-5.0) 01/30/21 14:55 Chloride 101 mmol/L (101-111) 01/30/21 14:55 Carbon Dioxide 25 mmol/L (21-32) 01/30/21 14:55 Anion Gap 10.0 (6-13) 01/30/21 14:55 BUN 17 mg/dL (6-20) 01/30/21 14:55 Creatinine 1.1 mg/dL (0.6-1.2) 01/30/21 14:55 Estimated GFR (MDRD) 69 (>89) L 01/30/21 14:55 Glucose 87 mg/dL (70-100) 01/30/21 14:55 Lactic Acid 2.0 mmol/L (0.5-2.2) 01/22/21 19:02 Calcium 8.3 mg/dL (8.5-10.3) L 01/30/21 14:55 Phosphorus 3.3 mg/dL (2.5-4.6) 01/24/21 04:26 Magnesium 1.8 mg/dL (1.7-2.8) 01/24/21 04:26 Total Bilirubin 2.1 mg/dL (0.2-1.0) H 01/28/21 05:15 Direct Bilirubin 0.9 mg/dL (0.1-0.5) H 01/23/21 04:35 AST 144 IU/L (10-42) H 01/28/21 05:15 ALT 256 IU/L (10-60) H 01/28/21 05:15 Alkaline Phosphatase 103 IU/L (42-121) 01/28/21 05:15 Troponin I High Sens 234.5 ng/L (2.3-19.7) H* 01/22/21 19:02 B-Natriuretic Peptide 4949.00 pg/mL (5-100) H 01/25/21 07:55 Total Protein 5.2 g/dL (6.7-8.2) L 01/28/21 05:15 Albumin 2.8 g/dL (3.2-5.5) L 01/28/21 05:15 Globulin 2.4 g/dL (2.1-4.2) 01/28/21 05:15 Albumin/Globulin Ratio 1.2 (1.0-2.2) 01/28/21 05:15 TSH 7.65 uIU/mL (0.34-5.60) H 01/23/21 04:35 Nasal Adenovirus (PCR) NOT DETECTED 01/18/21 18:22 Nasal B. parapertussis DNA (PCR) NOT DETECTED 01/18/21 18:22 Nasal Coronavir 229E PCR NOT DETECTED 01/18/21 18:22 Nasal Coronavir HKU1 PCR NOT DETECTED 01/18/21 18:22 Nasal Coronavir NL63 PCR NOT DETECTED 01/18/21 18:22 Nasal Coronavir OC43 PCR NOT DETECTED 01/18/21 18:22 Nasal Enterovir/Rhinovir PCR NOT DETECTED 01/18/21 18:22 Nasal Influenza B PCR NOT DETECTED 01/18/21 18:22 Nasal Influenza A PCR NOT DETECTED 01/18/21 18:22 Nasal Parainfluen 1 PCR NOT DETECTED 01/18/21 18:22 Nasal Parainfluen 2 PCR NOT DETECTED 01/18/21 18:22 Nasal Parainfluen 3 PCR NOT DETECTED 01/18/21 18:22 Nasal Parainfluen 4 PCR NOT DETECTED 01/18/21 18:22 Nasal RSV (PCR) NOT DETECTED 01/18/21 18:22 Nasal Screen MRSA (PCR) NEGATIVE (NEGATIVE) 01/21/21 12:45 Nasal B.pertussis DNA PCR NOT DETECTED 01/18/21 18:22 Nasal C.pneumoniae (PCR) NOT DETECTED 01/18/21 18:22 [place] Human Metapneumo PCR NOT DETECTED 01/18/21 18:22 Nasal M.pneumoniae (PCR) NOT DETECTED 01/18/21 18:22 Nasal SARS-CoV-2 (PCR) NOT DETECTED 01/18/21 18:22 Last Dose Date 02/19/21 02/20/21 08:15 Last Dose Time 1059 02/20/21 08:15 Digoxin < 0.2 ng/mL 02/20/21 08:15 Ethyl Alcohol < 5.0 mg/dL 01/18/21 16:51 Hepatitis A IgM Ab NON-REACTIVE (NON-REACTIVE) 01/19/21 06:19 Hep Bs Antigen NON-REACTIVE (NON-REACTIVE) 01/19/21 06:19 Hep B Core IgM Ab NON-REACTIVE (NON-REACTIVE) 01/19/21 06:19 Hepatitis C Antibody REACTIVE (NON-REACTIVE) A 01/19/21 06:19 Hep C Ab Signal/Cutoff 6.50 (<1.00) H 01/19/21 06:19 - Procedures Procedures: Procedures COLONOSCOPY (08/16/13) ABX Reporting Has patient been on IV antibiotics over the past 48 hours?: No Current Medications - Current Medications Current Medications: Active Medications Albuterol (Albuterol Neb 2.5 Mg/3 Ml) 2.5 mg INH RTQ6H PRN PRN Reason: Shortness of Air/Wheezing Digoxin (Digoxin 125 Mcg Tablet) 125 mcg PO DAILY [facility] Last Admin: 02/28/21 08:35 Dose: 125 mcg Furosemide (Furosemide 40 Mg Tablet) 40 mg PO DAILY [facility] Last Admin: 02/28/21 08:35 Dose: 40 mg Gabapentin (Gabapentin 300 Mg Capsule) 300 mg PO 0800,1400 PRN PRN Reason: LEG PAIN OR ANXIETY Last Admin: 02/28/21 08:34 Dose: 300 mg Gabapentin (Gabapentin 300 Mg Capsule) 600 mg PO QPM [facility] Last Admin: 02/27/21 21:12 Dose: 600 mg Heparin Sodium (Beef Lung) (Heparin Flush 50 Units/5 Ml Syringe) 30 - 50 unit IVP PRN PRN PRN Reason: Port Protocol (<24 hours) Last Admin: 02/19/21 20:52 Dose: 150 unit Lisinopril (Lisinopril 5 Mg Tablet) 2.5 mg PO DAILY [facility] Last Admin: 02/28/21 08:35 Dose: 2.5 mg Metoprolol Succinate (Metoprolol Succinate 25 Mg Tablet) 25 mg PO DAILY [facility] Last Admin: 02/28/21 08:35 Dose: 25 mg Multivitamins (Multivitamin Tablet) 1 tab PO DAILYWM [facility] Last Admin: 02/28/21 08:35 Dose: 1 tab Nicotine (Nicotine 14 Mg Patch) 1 patch TOP DAILY [facility] Last Admin: 02/28/21 08:35 Dose: Not Given Ondansetron HCl (Ondansetron 4 Mg/2 Ml Vial) 4 mg IVP Q6HR PRN PRN Reason: Nausea / Vomiting Last Admin: 01/19/21 23:45 Dose: 4 mg Oxycodone HCl (Oxycodone 5 Mg Tablet) 5 mg PO Q4HR PRN PRN Reason: Pain 5 to 7 Last Admin: 02/28/21 06:55 Dose: 5 mg Sodium Chloride (Sodium Chloride Flush 0.9% 10 Ml Syringe) 10 ml IVP PRN PRN PRN Reason: NEEDED PER PROVIDER ORDERS Last Admin: 02/21/21 16:40 Dose: 10 ml Sodium Chloride (Sodium Chloride Flush 0.9% 10 Ml Syringe) 10 ml IVP 0100,0900,1700 [facility] Last Admin: 02/28/21 08:35 Dose: 10 ml Sodium Chloride (Sodium Chloride Flush 0.9% 10 Ml Syringe) 20 ml IVP PRN PRN PRN Reason: After Blood Draw Last Admin: 02/15/21 23:44 Dose: 20 ml Spironolactone (Spironolactone 25 Mg Tablet) 25 mg PO DAILY [facility] Last Admin: 02/28/21 08:34 Dose: 25 mg Thiamine HCl (Thiamine 100 Mg Tablet) 100 mg PO DAILY [facility] Last Admin: 02/28/21 08:35 Dose: 100 mg Citalopram [CeleXA] 10 mg ORAL DAILY 09/15/20 Gabapentin [Neurontin] 300 mg PO 0800,1400 PRN 01/19/21 Gabapentin [Neurontin] 600 mg PO QPM 01/19/21 Metoprolol Succinate [Toprol Xl] 25 mg PO DAILY 01/19/21
[2021-02-28] MEDS: GABAPENTIN 300 MG CAPSULE PO SCH (22:07)
[2021-03-01] MEDS: GABAPENTIN 300 MG CAPSULE PO PRN ×2 (09:07→15:08)
[2021-03-01] MEDS: THIAMINE 100 MG TABLET PO SCH (09:07)
[2021-03-01] MEDS: lisinopriL 5 MG TABLET PO SCH (09:07)
[2021-03-01] MEDS: DIGOXIN 125 MCG TABLET PO SCH (09:08)
[2021-03-01] MEDS: FUROSEMIDE 40 MG TABLET PO SCH (09:08)
[2021-03-01] MEDS: MULTIVITAMIN TABLET PO SCH (09:08)
[2021-03-01] MEDS: METOPROLOL SUCCINATE 25 MG TABLET PO SCH (09:09)
[2021-03-01] MEDS: SPIRONOLACTONE 25 MG TABLET PO SCH (09:09)
[2021-03-01] MEDS: NICOTINE 14 MG PATCH TOP SCH (09:10)
[2021-03-01] MEDS: SODIUM CHLORIDE FLUSH 0.9% 10 ML SYRINGE IVP SCH ×3 (09:14→23:47)
--- NOTE | 2021-03-01 11:08 | PROVIDER PROGRESS NOTE ---
Assessment/Plan - Problem List (1) Acute on chronic systolic and diastolic heart failure, NYHA class 4 Assessment/Plan: 03/01 pt enjoy his breakfast but he express some frustration for him still to stay at hospital. otherwise he is Hemodynamically stable. He is pending for placement. social media specialist try to help him for placement. 02/28 pt is pleasant and no complaints. pt is pending on placement, social media specialist was consulted for placement. 02/27 Patient feel comfortable. he has no complaints. continue current meds and management. pt is pending on placement, social media specialist was consulted for placement. 02/25 He continues to be stable in VS and clinical status on his current meds and management. No labs done since 01/30/21 Still awaiting placement 02/24 pt is doing well, no complaints. we will continue medical management, continue social media specialist for placement. 02/23 pt is comfortable, and has no complaints. pt is pending for placement. social media specialist was consulted for placement. 02/22 pt is happy for his breakfast. he feel great, no complaints. pt is pending for placement. 02/21 pt report he feel great. he ate all his breakfast. pt's central line was on a month, we will d/c and put new peripheral IV. continue metoprolol, Lasix, spironolactone and Lisinopril, digoxin, consult with social media specialist for placement. 02/20 pt report he feel good. his digoxin is less 0.2, pt has slight elevated HR, resume his full dosage of digoxin, continue metoprolol, Lasix, spironolactone and Lisinopril. consulted with social media specialist for placement 02/19 stable, pt report he had albuterol INH PRN before, he hope to have it again. pt had vaccinated with Covid 19, plan to d/c to [facility] for hosp[facility] care, per social media specialist's report. 02/15 HR is 73, BP is 102/76, improved and pt has No complaints, hemodynamic stable. Continue digoxin, metoprolol, Lasix, spironolactone and Lisinopril. 02/14 pt's HR is down to 41 and low blood pressure. we will try to reduce Digoxin and metoprolol dosage and vital monitor. will continue Lasix, spironolactone and low dosage of Lisinopril. pt has EF<20% and congestive pulmonary edema. continue comfortable focus care and followup with hospice care after d/c (2) Peripheral vascular disease Impression: pt has no complaint, pain is controlled. (3) COPD (chronic obstructive pulmonary disease) with emphysema Impression: Stable, no exacerbation currently. (4) Paroxysmal atrial fibrillation Impression: stable, continue dignoxin and metoprolol Continue to monitor vital signs, focus on comfortable care. (5) Hepatitis Impression: Stable (6) ESTEVAN (acute kidney injury) Impression: Resolved. (7) Cardiogenic shock Impression: Resolved. (8) Hyponatremia Impression: Resolved. - Current Meds Current Meds: Current Medications Generic Name Dose Route Start Last Admin Trade Name Freq PRN Reason Stop Dose Admin Digoxin 125 mcg 02/20/21 09:00 03/01/21 09:08 Digoxin 125 Mcg Tablet PO 125 mcg DAILY YONATHAN Administration Furosemide 40 mg 02/14/21 11:44 03/01/21 09:08 Furosemide 40 Mg Tablet PO 40 mg DAILY YONATHAN Administration Gabapentin 300 mg 01/31/21 07:44 03/01/21 09:07 Gabapentin 300 Mg Capsule PO 300 mg 0800,1400 PRN Administration LEG PAIN OR ANXIETY Gabapentin 600 mg 01/31/21 21:00 02/28/21 22:07 Gabapentin 300 Mg Capsule PO 600 mg QPM YONATHAN Administration Heparin Sodium (Beef Lung) 30 - 50 unit 01/27/21 09:45 02/19/21 20:52 Heparin Flush 50 Units/5 Ml Syringe IVP 150 unit PRN PRN Administration Port Protocol (<24 hours) Lisinopril 2.5 mg 02/14/21 11:42 03/01/21 09:07 Lisinopril 5 Mg Tablet PO 2.5 mg DAILY YONATHAN Administration Metoprolol Succinate 25 mg 02/24/21 07:27 03/01/21 09:09 Metoprolol Succinate 25 Mg Tablet PO 25 mg DAILY YONATHAN Administration Multivitamins 1 tab 01/19/21 08:00 03/01/21 09:08 Multivitamin Tablet PO 1 tab DAILYWM YONATHAN Administration Ondansetron HCl 4 mg 01/18/21 18:18 01/19/21 23:45 Ondansetron 4 Mg/2 Ml Vial IVP 4 mg Q6HR PRN Administration Nausea / Vomiting Oxycodone HCl 5 mg 01/18/21 18:18 02/28/21 06:55 Oxycodone 5 Mg Tablet PO 5 mg Q4HR PRN Administration Pain 5 to 7 Sodium Chloride 10 ml 01/18/21 18:18 02/21/21 16:40 Sodium Chloride Flush 0.9% 10 Ml Syringe IVP 10 ml PRN PRN Administration NEEDED PER PROVIDER ORDERS Sodium Chloride 10 ml 01/19/21 01:00 03/01/21 09:14 Sodium Chloride Flush 0.9% 10 Ml Syringe IVP 10 ml 0100,0900,1700 YONATHAN Administration Sodium Chloride 20 ml 01/31/21 09:19 02/15/21 23:44 Sodium Chloride Flush 0.9% 10 Ml Syringe IVP 20 ml PRN PRN Administration After Blood Draw Spironolactone 25 mg 02/14/21 11:44 03/01/21 09:09 Spironolactone 25 Mg Tablet PO 25 mg DAILY YONATHAN Administration Thiamine HCl 100 mg 01/29/21 10:30 03/01/21 09:07 Thiamine 100 Mg Tablet PO 100 mg DAILY YONATHAN Administration - Lab Result Fish Bone Diagrams: 01/30/21 14:55 01/30/21 14:55 Subjective - Subjective Patient Reports: Resting Comfortably Objective Vital Signs: Vital Signs - 24 hr 03/01/21 06:14 Temperature 36.5 C Heart Rate [ 84 Brachial] Respiratory 18 Rate Blood Pressure 110/82 H [Right Brachial artery] O2 Saturation 97 Oxygen O2 Source Room air I&O (Last 24 Hrs): Intake and Output Totals x24h 02/27/21 02/28/21 03/01/21 23:59 23:59 23:59 Intake Total 1370 1210 620 Output Total 2050 2775 1550 Balance -680 -1565 -930 General: Alert, Oriented x3, No acute distress HEENT: Atraumatic Neck: Supple Lymphatic: no adenopathy Neuro: Alert, Non Focal, Oriented Times 3 Cardiovascular: Regular rate, Normal S1, Normal S2 Respiratory: Chest non-tender, No respiratory distress Abdomen: Normal bowel sounds, Soft Extremities: Normal pulses - Results Results: Laboratory Results WBC 9.6 x10^3/uL (4.8-10.8) 01/30/21 14:55 RBC 4.04 10^6/uL (4.70-6.10) L 01/30/21 14:55 Hgb 13.0 g/dL (14.0-18.0) L 01/30/21 14:55 Hct 40.3 % (42.0-52.0) L 01/30/21 14:55 MCV 99.8 fL (80.0-94.0) H 01/30/21 14:55 MCH 32.2 pg (27.0-31.0) H 01/30/21 14:55 MCHC 32.3 g/dL (32.0-36.0) 01/30/21 14:55 RDW 14.9 % (12.0-15.0) 01/30/21 14:55 Plt Count 211 10^3/uL (130-450) 01/30/21 14:55 MPV 10.9 fL (7.4-11.4) 01/30/21 14:55 Neut # (Auto) 7.0 10^3/uL (1.5-6.6) H 01/30/21 14:55 Lymph # (Auto) 1.4 10^3/uL (1.5-3.5) L 01/30/21 14:55 [place] # (Auto) 0.9 10^3/uL (0.0-1.0) 01/30/21 14:55 Eos # (Auto) 0.2 10^3/uL (0.0-0.7) 01/30/21 14:55 Baso # (Auto) 0.1 10^3/uL (0.0-0.1) 01/30/21 14:55 Absolute Nucleated RBC 0.00 x10^3/uL 01/30/21 14:55 Total Counted 100 01/24/21 04:26 Band Neuts % (Manual) 1 % (0-10) 01/24/21 04:26 Reactive Lymphs % (Man) 3 % 01/18/21 16:51 Abnorm Lymph % (Manual) 0 % 01/24/21 04:26 Nucleated RBC % 0.0 /100WBC 01/30/21 14:55 Neutrophils # (Manual) 6.9 10^3/uL (1.5-6.6) H 01/24/21 04:26 Lymphocytes # (Manual) 0.5 10^3/uL (1.5-3.5) L 01/24/21 04:26 Monocytes # (Manual) 1.5 10^3/uL (0.0-1.0) H 01/24/21 04:26 Eosinophils # (Manual) 0.0 10^3/uL (0-0.7) 01/24/21 04:26 Basophils # (Manual) 0.0 10^3/uL (0-0.1) 01/24/21 04:26 Differential Comment MANUAL DIFFERENTIAL 01/24/21 04:26 Manual Slide Review Indicated 01/24/21 04:26 WBC Morphology NORMAL APPEARANCE (NORMAL) 01/23/21 08:40 Platelet Estimate DECREASED (<130,000) (NORMAL) 01/24/21 04:26 Platelet Morphology NORMAL APPEARANCE (NORMAL) 01/23/21 08:40 RBC Morph Micro Appear NORMAL APPEARANCE (NORMAL) 01/23/21 08:40 PT 21.2 secs (9.9-12.6) H 01/21/21 14:51 INR 1.9 (0.8-1.2) H 01/21/21 14:51 Bld Gas Analysis Time 1311 01/21/21 13:06 Sample Site RIGHT RADIAL 01/21/21 13:06 ABG pH 7.44 (7.35-7.45) 01/21/21 13:06 ABG pCO2 30 mmHg (34-45) L 01/21/21 13:06 ABG pO2 92 mmHg (80-100) 01/21/21 13:06 ABG HCO3 19.6 mmol/L (22.0-26.0) L 01/21/21 13:06 ABG Total CO2 20.5 MMOL/L (21.0-29.0) L 01/21/21 13:06 ABG O2 Saturation 97 % (94-98) 01/21/21 13:06 ABG Base Excess -3.4 mmol/L (-2.0-3.0) L 01/21/21 13:06 Honorio Test POSITIVE 01/21/21 13:06 VBG pH 7.406 (7.31-7.41) 01/24/21 07:51 Ionized Calcium 1.06 mmol/L (1.15-1.33) L 01/24/21 07:51 O2 Delivery Device NON REBREATHER MASK 01/21/21 13:06 O2 Liters/Min 15.00 LPM 01/21/21 13:06 FiO2 100.00 01/21/21 13:06 Sodium 136 mmol/L (135-145) 01/30/21 14:55 Potassium 4.4 mmol/L (3.5-5.0) 01/30/21 14:55 Chloride 101 mmol/L (101-111) 01/30/21 14:55 Carbon Dioxide 25 mmol/L (21-32) 01/30/21 14:55 Anion Gap 10.0 (6-13) 01/30/21 14:55 BUN 17 mg/dL (6-20) 01/30/21 14:55 Creatinine 1.1 mg/dL (0.6-1.2) 01/30/21 14:55 Estimated GFR (MDRD) 69 (>89) L 01/30/21 14:55 Glucose 87 mg/dL (70-100) 01/30/21 14:55 Lactic Acid 2.0 mmol/L (0.5-2.2) 01/22/21 19:02 Calcium 8.3 mg/dL (8.5-10.3) L 01/30/21 14:55 Phosphorus 3.3 mg/dL (2.5-4.6) 01/24/21 04:26 Magnesium 1.8 mg/dL (1.7-2.8) 01/24/21 04:26 Total Bilirubin 2.1 mg/dL (0.2-1.0) H 01/28/21 05:15 Direct Bilirubin 0.9 mg/dL (0.1-0.5) H 01/23/21 04:35 AST 144 IU/L (10-42) H 01/28/21 05:15 ALT 256 IU/L (10-60) H 01/28/21 05:15 Alkaline Phosphatase 103 IU/L (42-121) 01/28/21 05:15 Troponin I High Sens 234.5 ng/L (2.3-19.7) H* 01/22/21 19:02 B-Natriuretic Peptide 4949.00 pg/mL (5-100) H 01/25/21 07:55 Total Protein 5.2 g/dL (6.7-8.2) L 01/28/21 05:15 Albumin 2.8 g/dL (3.2-5.5) L 01/28/21 05:15 Globulin 2.4 g/dL (2.1-4.2) 01/28/21 05:15 Albumin/Globulin Ratio 1.2 (1.0-2.2) 01/28/21 05:15 TSH 7.65 uIU/mL (0.34-5.60) H 01/23/21 04:35 Nasal Adenovirus (PCR) NOT DETECTED 01/18/21 18:22 Nasal B. parapertussis DNA (PCR) NOT DETECTED 01/18/21 18:22 Nasal Coronavir 229E PCR NOT DETECTED 01/18/21 18:22 Nasal Coronavir HKU1 PCR NOT DETECTED 01/18/21 18:22 Nasal Coronavir NL63 PCR NOT DETECTED 01/18/21 18:22 Nasal Coronavir OC43 PCR NOT DETECTED 01/18/21 18:22 Nasal Enterovir/Rhinovir PCR NOT DETECTED 01/18/21 18:22 Nasal Influenza B PCR NOT DETECTED 01/18/21 18:22 Nasal Influenza A PCR NOT DETECTED 01/18/21 18:22 Nasal Parainfluen 1 PCR NOT DETECTED 01/18/21 18:22 Nasal Parainfluen 2 PCR NOT DETECTED 01/18/21 18:22 Nasal Parainfluen 3 PCR NOT DETECTED 01/18/21 18:22 Nasal Parainfluen 4 PCR NOT DETECTED 01/18/21 18:22 Nasal RSV (PCR) NOT DETECTED 01/18/21 18:22 Nasal Screen MRSA (PCR) NEGATIVE (NEGATIVE) 01/21/21 12:45 Nasal B.pertussis DNA PCR NOT DETECTED 01/18/21 18:22 Nasal C.pneumoniae (PCR) NOT DETECTED 01/18/21 18:22 [place] Human Metapneumo PCR NOT DETECTED 01/18/21 18:22 Nasal M.pneumoniae (PCR) NOT DETECTED 01/18/21 18:22 Nasal SARS-CoV-2 (PCR) NOT DETECTED 01/18/21 18:22 Last Dose Date 02/19/21 02/20/21 08:15 Last Dose Time 10502/20/21 08:15 Digoxin < 0.2 ng/mL 02/20/21 08:15 Ethyl Alcohol < 5.0 mg/dL 01/18/21 16:51 Hepatitis A IgM Ab NON-REACTIVE (NON-REACTIVE) 01/19/21 06:19 Hep Bs Antigen NON-REACTIVE (NON-REACTIVE) 01/19/21 06:19 Hep B Core IgM Ab NON-REACTIVE (NON-REACTIVE) 01/19/21 06:19 Hepatitis C Antibody REACTIVE (NON-REACTIVE) A 01/19/21 06:19 Hep C Ab Signal/Cutoff 6.50 (<1.00) H 01/19/21 06:19 - Procedures Procedures: Procedures COLONOSCOPY (08/16/13) ABX Reporting Has patient been on IV antibiotics over the past 48 hours?: No Current Medications - Current Medications Current Medications: Active Medications Albuterol (Albuterol Neb 2.5 Mg/3 Ml) 2.5 mg INH RTQ6H PRN PRN Reason: Shortness of Air/Wheezing Digoxin (Digoxin 125 Mcg Tablet) 125 mcg PO DAILY [facility] Last Admin: 03/01/21 09:08 Dose: 125 mcg Furosemide (Furosemide 40 Mg Tablet) 40 mg PO DAILY [facility] Last Admin: 03/01/21 09:08 Dose: 40 mg Gabapentin (Gabapentin 300 Mg Capsule) 300 mg PO 0800,1400 PRN PRN Reason: LEG PAIN OR ANXIETY Last Admin: 03/01/21 09:07 Dose: 300 mg Gabapentin (Gabapentin 300 Mg Capsule) 600 mg PO QPM [facility] Last Admin: 02/28/21 22:07 Dose: 600 mg Heparin Sodium (Beef Lung) (Heparin Flush 50 Units/5 Ml Syringe) 30 - 50 unit IVP PRN PRN PRN Reason: Port Protocol (<24 hours) Last Admin: 02/19/21 20:52 Dose: 150 unit Lisinopril (Lisinopril 5 Mg Tablet) 2.5 mg PO DAILY [facility] Last Admin: 03/01/21 09:07 Dose: 2.5 mg Metoprolol Succinate (Metoprolol Succinate 25 Mg Tablet) 25 mg PO DAILY [facility] Last Admin: 03/01/21 09:09 Dose: 25 mg Multivitamins (Multivitamin Tablet) 1 tab PO DAILYWM [facility] Last Admin: 03/01/21 09:08 Dose: 1 tab Ondansetron HCl (Ondansetron 4 Mg/2 Ml Vial) 4 mg IVP Q6HR PRN PRN Reason: Nausea / Vomiting Last Admin: 01/19/21 23:45 Dose: 4 mg Oxycodone HCl (Oxycodone 5 Mg Tablet) 5 mg PO Q4HR PRN PRN Reason: Pain 5 to 7 Last Admin: 02/28/21 06:55 Dose: 5 mg Sodium Chloride (Sodium Chloride Flush 0.9% 10 Ml Syringe) 10 ml IVP PRN PRN PRN Reason: NEEDED PER PROVIDER ORDERS Last Admin: 02/21/21 16:40 Dose: 10 ml Sodium Chloride (Sodium Chloride Flush 0.9% 10 Ml Syringe) 10 ml IVP 0100,0900,1700 [facility] Last Admin: 03/01/21 09:14 Dose: 10 ml Sodium Chloride (Sodium Chloride Flush 0.9% 10 Ml Syringe) 20 ml IVP PRN PRN PRN Reason: After Blood Draw Last Admin: 02/15/21 23:44 Dose: 20 ml Spironolactone (Spironolactone 25 Mg Tablet) 25 mg PO DAILY [facility] Last Admin: 03/01/21 09:09 Dose: 25 mg Thiamine HCl (Thiamine 100 Mg Tablet) 100 mg PO DAILY [facility] Last Admin: 03/01/21 09:07 Dose: 100 mg Citalopram [CeleXA] 10 mg ORAL DAILY 09/15/20 Gabapentin [Neurontin] 300 mg PO 0800,1400 PRN 01/19/21 Gabapentin [Neurontin] 600 mg PO QPM 01/19/21 Metoprolol Succinate [Toprol Xl] 25 mg PO DAILY 01/19/21
[2021-03-01] MEDS: oxyCODONE 5 MG TABLET PO PRN ×2 (15:08→20:26)
[2021-03-01] MEDS: GABAPENTIN 300 MG CAPSULE PO SCH (20:25)
[2021-03-02] MEDS: MULTIVITAMIN TABLET PO SCH (10:39)
[2021-03-02] MEDS: lisinopriL 5 MG TABLET PO SCH (10:39)
[2021-03-02] MEDS: SPIRONOLACTONE 25 MG TABLET PO SCH (10:39)
[2021-03-02] MEDS: GABAPENTIN 300 MG CAPSULE PO PRN ×2 (10:39→16:10)
[2021-03-02] MEDS: DIGOXIN 125 MCG TABLET PO SCH (10:40)
[2021-03-02] MEDS: METOPROLOL SUCCINATE 25 MG TABLET PO SCH (10:40)
[2021-03-02] MEDS: SODIUM CHLORIDE FLUSH 0.9% 10 ML SYRINGE IVP SCH ×2 (10:42→16:10)
[2021-03-02] MEDS: FUROSEMIDE 40 MG TABLET PO SCH (10:42)
[2021-03-02] MEDS: oxyCODONE 5 MG TABLET PO PRN ×3 (10:42→21:09)
[2021-03-02] MEDS: THIAMINE 100 MG TABLET PO SCH (10:42)
--- NOTE | 2021-03-02 11:50 | PROVIDER PROGRESS NOTE ---
Assessment/Plan - Problem List (1) Acute on chronic systolic and diastolic heart failure, NYHA class 4 Assessment/Plan: 03/02 pt has no complaint, and stable, he is pending for placement, social work supervisor was consulted. 03/01 pt enjoy his breakfast but he express some frustration for him still to stay at hospital. otherwise he is Hemodynamically stable. He is pending for placement. social work supervisor try to help him for placement. 02/28 pt is pleasant and no complaints. pt is pending on placement, social wo lorraine was consulted for placement. 02/27 Patient feel comfortable. he has no complaints. continue current meds and management. pt is pending on placement, social work supervisor was consulted for placement. 02/25 He continues to be stable in VS and clinical status on his current meds and management. No labs done since 01/30/21 Still awaiting placement 02/24 pt is doing well, no complaints. we will continue medical management, continue social work supervisor for placement. 02/23 pt is comfortable, and has no complaints. pt is pending for placement. social work supervisor was consulted for placement. 02/22 pt is happy for his breakfast. he feel great, no complaints. pt is pending for placement. 02/21 pt report he feel great. he ate all his breakfast. pt's central line was on a month, we will d/c and put new peripheral IV. continue metoprolol, Lasix, spironolactone and Lisinopril, digoxin, consult with social work supervisor for placement. 02/20 pt report he feel good. his digoxin is less 0.2, pt has slight elevated HR, resume his full dosage of digoxin, continue metoprolol, Lasix, spironolactone and Lisinopril. consulted with social work supervisor for placement 02/19 stable, pt report he had albuterol INH PRN before, he hope to have it again. pt had vaccinated with Covid 19, plan to d/c to [facility] for [facility] care, per social work supervisor's report. 02/15 HR is 73, BP is 102/76, improved and pt has No complaints, hemodynamic stable. Continue digoxin, metoprolol, Lasix, spironolactone and Lisinopril. 02/14 pt's HR is down to 41 and low blood pressure. we will try to reduce Digoxin and metoprolol dosage and vital monitor. will continue Lasix, spironolactone and low dosage of Lisinopril. pt has EF<20% and congestive pulmonary edema. continue comfortable focus care and followup with hospice care after d/c (2) Peripheral vascular disease Impression: pt has no complaint, pain is controlled. (3) COPD (chronic obstructive pulmonary disease) with emphysema Impression: Stable, no exacerbation currently. (4) Paroxysmal atrial fibrillation Impression: stable, continue dignoxin and metoprolol Continue to monitor vital signs, focus on comfortable care. (5) Hepatitis Impression: Stable (6) ESTEVAN (acute kidney injury) Impression: Resolved. (7) Cardiogenic shock Impression: Resolved. (8) Hyponatremia Impression: Resolved. - Current Meds Current Meds: Current Medications Generic Name Dose Route Start Last Admin Trade Name Freq PRN Reason Stop Dose Admin Digoxin 125 mcg 02/20/21 09:00 03/02/21 10:40 Digoxin 125 Mcg Tablet PO 125 mcg DAILY YONATHAN Administration Furosemide 40 mg 02/14/21 11:44 03/02/21 10:42 Furosemide 40 Mg Tablet PO 40 mg DAILY YONATHAN Administration Gabapentin 300 mg 01/31/21 07:44 03/02/21 10:39 Gabapentin 300 Mg Capsule PO 300 mg 0800,1400 PRN Administration LEG PAIN OR ANXIETY Gabapentin 600 mg 01/31/21 21:00 03/01/21 20:25 Gabapentin 300 Mg Capsule PO 600 mg QPM YONATHAN Administration Heparin Sodium (Beef Lung) 30 - 50 unit 01/27/21 09:45 02/19/21 20:52 Heparin Flush 50 Units/5 Ml Syringe IVP 150 unit PRN PRN Administration Port Protocol (<24 hours) Lisinopril 2.5 mg 02/14/21 11:42 03/02/21 10:39 Lisinopril 5 Mg Tablet PO 2.5 mg DAILY YONATHAN Administration Metoprolol Succinate 25 mg 02/24/21 07:27 03/02/21 10:40 Metoprolol Succinate 25 Mg Tablet PO 25 mg DAILY YONATHAN Administration Multivitamins 1 tab 01/19/21 08:00 03/02/21 10:39 Multivitamin Tablet PO 1 tab DAILYWM YONATHAN Administration Ondansetron HCl 4 mg 01/18/21 18:18 01/19/21 23:45 Ondansetron 4 Mg/2 Ml Vial IVP 4 mg Q6HR PRN Administration Nausea / Vomiting Oxycodone HCl 5 mg 01/18/21 18:18 03/02/21 10:42 Oxycodone 5 Mg Tablet PO 5 mg Q4HR PRN Administration Pain 5 to 7 Sodium Chloride 10 ml 01/18/21 18:18 02/21/21 16:40 Sodium Chloride Flush 0.9% 10 Ml Syringe IVP 10 ml PRN PRN Administration NEEDED PER PROVIDER ORDERS Sodium Chloride 10 ml 01/19/21 01:00 03/02/21 10:42 Sodium Chloride Flush 0.9% 10 Ml Syringe IVP 10 ml 0100,0900,1700 YONATHAN Administration Sodium Chloride 20 ml 01/31/21 09:19 02/15/21 23:44 Sodium Chloride Flush 0.9% 10 Ml Syringe IVP 20 ml PRN PRN Administration After Blood Draw Spironolactone 25 mg 02/14/21 11:44 03/02/21 10:39 Spironolactone 25 Mg Tablet PO 25 mg DAILY YONATHAN Administration Thiamine HCl 100 mg 01/29/21 10:30 03/02/21 10:42 Thiamine 100 Mg Tablet PO 100 mg DAILY YONATHAN Administration - Lab Result Fish Bone Diagrams: 01/30/21 14:55 01/30/21 14:55 Subjective - Subjective Patient Reports: Resting Comfortably Objective Vital Signs: Vital Signs - 24 hr 03/01/21 03/01/21 03/02/21 15:59 23:46 08:03 Temperature 36.7 C 36.5 C Heart Rate [ 101 H Brachial] Heart Rate [ 86 58 L Radial] Respiratory 20 17 16 Rate Blood Pressure 99/74 [Left Brachial artery] Blood Pressure 125/74 [Right Brachial artery] Blood Pressure 100/84 H [Right Radial artery] O2 Saturation 97 95 99 03/02/21 10:35 Temperature Heart Rate [ Brachial] Heart Rate [ 60 Radial] Respiratory Rate Blood Pressure [Left Brachial artery] Blood Pressure [Right Brachial artery] Blood Pressure 142/68 H [Right Radial artery] O2 Saturation Oxygen O2 Source Room air I&O (Last 24 Hrs): Intake and Output Totals x24h 02/28/21 03/01/21 03/02/21 23:59 23:59 23:59 Intake Total 1210 1460 540 Output Total 2825 3025 875 Balance -1565 -1565 -335 General: Alert, Oriented x3, Cooperative, No acute distress HEENT: Atraumatic Neck: Supple Lymphatic: no adenopathy Neuro: Alert, Non Focal, Oriented Times 3 Cardiovascular: Regular rate, Normal S1, Normal S2 Respiratory: Chest non-tender, No respiratory distress Abdomen: Normal bowel sounds, Soft Extremities: Normal pulses - Results Results: Laboratory Results WBC 9.6 x10^3/uL (4.8-10.8) 01/30/21 14:55 RBC 4.04 10^6/uL (4.70-6.10) L 01/30/21 14:55 Hgb 13.0 g/dL (14.0-18.0) L 01/30/21 14:55 Hct 40.3 % (42.0-52.0) L 01/30/21 14:55 MCV 99.8 fL (80.0-94.0) H 01/30/21 14:55 MCH 32.2 pg (27.0-31.0) H 01/30/21 14:55 MCHC 32.3 g/dL (32.0-36.0) 01/30/21 14:55 RDW 14.9 % (12.0-15.0) 01/30/21 14:55 Plt Count 211 10^3/uL (130-450) 01/30/21 14:55 MPV 10.9 fL (7.4-11.4) 01/30/21 14:55 Neut # (Auto) 7.0 10^3/uL (1.5-6.6) H 01/30/21 14:55 Lymph # (Auto) 1.4 10^3/uL (1.5-3.5) L 01/30/21 14:55 [place] # (Auto) 0.9 10^3/uL (0.0-1.0) 01/30/21 14:55 Eos # (Auto) 0.2 10^3/uL (0.0-0.7) 01/30/21 14:55 Baso # (Auto) 0.1 10^3/uL (0.0-0.1) 01/30/21 14:55 Absolute Nucleated RBC 0.00 x10^3/uL 01/30/21 14:55 Total Counted 100 01/24/21 04:26 Band Neuts % (Manual) 1 % (0-10) 01/24/21 04:26 Reactive Lymphs % (Man) 3 % 01/18/21 16:51 Abnorm Lymph % (Manual) 0 % 01/24/21 04:26 Nucleated RBC % 0.0 /100WBC 01/30/21 14:55 Neutrophils # (Manual) 6.9 10^3/uL (1.5-6.6) H 01/24/21 04:26 Lymphocytes # (Manual) 0.5 10^3/uL (1.5-3.5) L 01/24/21 04:26 Monocytes # (Manual) 1.5 10^3/uL (0.0-1.0) H 01/24/21 04:26 Eosinophils # (Manual) 0.0 10^3/uL (0-0.7) 01/24/21 04:26 Basophils # (Manual) 0.0 10^3/uL (0-0.1) 01/24/21 04:26 Differential Comment MANUAL DIFFERENTIAL 01/24/21 04:26 Manual Slide Review Indicated 01/24/21 04:26 WBC Morphology NORMAL APPEARANCE (NORMAL) 01/23/21 08:40 Platelet Estimate DECREASED (<130,000) (NORMAL) 01/24/21 04:26 Platelet Morphology NORMAL APPEARANCE (NORMAL) 01/23/21 08:40 RBC Morph Micro Appear NORMAL APPEARANCE (NORMAL) 01/23/21 08:40 PT 21.2 secs (9.9-12.6) H 01/21/21 14:51 INR 1.9 (0.8-1.2) H 01/21/21 14:51 Bld Gas Analysis Time 1311 01/21/21 13:06 Sample Site RIGHT RADIAL 01/21/21 13:06 ABG pH 7.44 (7.35-7.45) 01/21/21 13:06 ABG pCO2 30 mmHg (34-45) L 01/21/21 13:06 ABG pO2 92 mmHg (80-100) 01/21/21 13:06 ABG HCO3 19.6 mmol/L (22.0-26.0) L 01/21/21 13:06 ABG Total CO2 20.5 MMOL/L (21.0-29.0) L 01/21/21 13:06 ABG O2 Saturation 97 % (94-98) 01/21/21 13:06 ABG Base Excess -3.4 mmol/L (-2.0-3.0) L 01/21/21 13:06 Honorio Test POSITIVE 01/21/21 13:06 VBG pH 7.406 (7.31-7.41) 01/24/21 07:51 Ionized Calcium 1.06 mmol/L (1.15-1.33) L 01/24/21 07:51 O2 Delivery Device NON REBREATHER MASK 01/21/21 13:06 O2 Liters/Min 15.00 LPM 01/21/21 13:06 FiO2 100.00 01/21/21 13:06 Sodium 136 mmol/L (135-145) 01/30/21 14:55 Potassium 4.4 mmol/L (3.5-5.0) 01/30/21 14:55 Chloride 101 mmol/L (101-111) 01/30/21 14:55 Carbon Dioxide 25 mmol/L (21-32) 01/30/21 14:55 Anion Gap 10.0 (6-13) 01/30/21 14:55 BUN 17 mg/dL (6-20) 01/30/21 14:55 Creatinine 1.1 mg/dL (0.6-1.2) 01/30/21 14:55 Estimated GFR (MDRD) 69 (>89) L 01/30/21 14:55 Glucose 87 mg/dL (70-100) 01/30/21 14:55 Lactic Acid 2.0 mmol/L (0.5-2.2) 01/22/21 19:02 Calcium 8.3 mg/dL (8.5-10.3) L 01/30/21 14:55 Phosphorus 3.3 mg/dL (2.5-4.6) 01/24/21 04:26 Magnesium 1.8 mg/dL (1.7-2.8) 01/24/21 04:26 Total Bilirubin 2.1 mg/dL (0.2-1.0) H 01/28/21 05:15 Direct Bilirubin 0.9 mg/dL (0.1-0.5) H 01/23/21 04:35 AST 144 IU/L (10-42) H 01/28/21 05:15 ALT 256 IU/L (10-60) H 01/28/21 05:15 Alkaline Phosphatase 103 IU/L (42-121) 01/28/21 05:15 Troponin I High Sens 234.5 ng/L (2.3-19.7) H* 01/22/21 19:02 B-Natriuretic Peptide 4949.00 pg/mL (5-100) H 01/25/21 07:55 Total Protein 5.2 g/dL (6.7-8.2) L 01/28/21 05:15 Albumin 2.8 g/dL (3.2-5.5) L 01/28/21 05:15 Globulin 2.4 g/dL (2.1-4.2) 01/28/21 05:15 Albumin/Globulin Ratio 1.2 (1.0-2.2) 01/28/21 05:15 TSH 7.65 uIU/mL (0.34-5.60) H 01/23/21 04:35 Nasal Adenovirus (PCR) NOT DETECTED 01/18/21 18:22 Nasal B. parapertussis DNA (PCR) NOT DETECTED 01/18/21 18:22 Nasal Coronavir 229E PCR NOT DETECTED 01/18/21 18:22 Nasal Coronavir HKU1 PCR NOT DETECTED 01/18/21 18:22 Nasal Coronavir NL63 PCR NOT DETECTED 01/18/21 18:22 Nasal Coronavir OC43 PCR NOT DETECTED 01/18/21 18:22 Nasal Enterovir/Rhinovir PCR NOT DETECTED 01/18/21 18:22 Nasal Influenza B PCR NOT DETECTED 01/18/21 18:22 Nasal Influenza A PCR NOT DETECTED 01/18/21 18:22 Nasal Parainfluen 1 PCR NOT DETECTED 01/18/21 18:22 Nasal Parainfluen 2 PCR NOT DETECTED 01/18/21 18:22 Nasal Parainfluen 3 PCR NOT DETECTED 01/18/21 18:22 Nasal Parainfluen 4 PCR NOT DETECTED 01/18/21 18:22 Nasal RSV (PCR) NOT DETECTED 01/18/21 18:22 Nasal Screen MRSA (PCR) NEGATIVE (NEGATIVE) 01/21/21 12:45 Nasal B.pertussis DNA PCR NOT DETECTED 01/18/21 18:22 Nasal C.pneumoniae (PCR) NOT DETECTED 01/18/21 18:22 [place] Human Metapneumo PCR NOT DETECTED 01/18/21 18:22 Nasal M.pneumoniae (PCR) NOT DETECTED 01/18/21 18:22 Nasal SARS-CoV-2 (PCR) NOT DETECTED 01/18/21 18:22 Last Dose Date 02/19/21 02/20/21 08:15 Last Dose Time 1059 02/20/21 08:15 Digoxin < 0.2 ng/mL 02/20/21 08:15 Ethyl Alcohol < 5.0 mg/dL 01/18/21 16:51 Hepatitis A IgM Ab NON-REACTIVE (NON-REACTIVE) 01/19/21 06:19 Hep Bs Antigen NON-REACTIVE (NON-REACTIVE) 01/19/21 06:19 Hep B Core IgM Ab NON-REACTIVE (NON-REACTIVE) 01/19/21 06:19 Hepatitis C Antibody REACTIVE (NON-REACTIVE) A 01/19/21 06:19 Hep C Ab Signal/Cutoff 6.50 (<1.00) H 01/19/21 06:19 - Procedures Procedures: Procedures COLONOSCOPY (08/16/13) ABX Reporting Has patient been on IV antibiotics over the past 48 hours?: No Current Medications - Current Medications Current Medications: Active Medications Albuterol (Albuterol Neb 2.5 Mg/3 Ml) 2.5 mg INH RTQ6H PRN PRN Reason: Shortness of Air/Wheezing Digoxin (Digoxin 125 Mcg Tablet) 125 mcg PO DAILY [facility] Last Admin: 03/02/21 10:40 Dose: 125 mcg Furosemide (Furosemide 40 Mg Tablet) 40 mg PO DAILY [facility] Last Admin: 03/02/21 10:42 Dose: 40 mg Gabapentin (Gabapentin 300 Mg Capsule) 300 mg PO 0800,1400 PRN PRN Reason: LEG PAIN OR ANXIETY Last Admin: 03/02/21 10:39 Dose: 300 mg Gabapentin (Gabapentin 300 Mg Capsule) 600 mg PO QPM [facility] Last Admin: 03/01/21 20:25 Dose: 600 mg Heparin Sodium (Beef Lung) (Heparin Flush 50 Units/5 Ml Syringe) 30 - 50 unit IVP PRN PRN PRN Reason: Port Protocol (<24 hours) Last Admin: 02/19/21 20:52 Dose: 150 unit Lisinopril (Lisinopril 5 Mg Tablet) 2.5 mg PO DAILY [facility] Last Admin: 03/02/21 10:39 Dose: 2.5 mg Metoprolol Succinate (Metoprolol Succinate 25 Mg Tablet) 25 mg PO DAILY [facility] Last Admin: 03/02/21 10:40 Dose: 25 mg Multivitamins (Multivitamin Tablet) 1 tab PO DAILYWM [facility] Last Admin: 03/02/21 10:39 Dose: 1 tab Ondansetron HCl (Ondansetron 4 Mg/2 Ml Vial) 4 mg IVP Q6HR PRN PRN Reason: Nausea / Vomiting Last Admin: 01/19/21 23:45 Dose: 4 mg Oxycodone HCl (Oxycodone 5 Mg Tablet) 5 mg PO Q4HR PRN PRN Reason: Pain 5 to 7 Last Admin: 03/02/21 10:42 Dose: 5 mg Sodium Chloride (Sodium Chloride Flush 0.9% 10 Ml Syringe) 10 ml IVP PRN PRN PRN Reason: NEEDED PER PROVIDER ORDERS Last Admin: 02/21/21 16:40 Dose: 10 ml Sodium Chloride (Sodium Chloride Flush 0.9% 10 Ml Syringe) 10 ml IVP 0100,0900,1700 [facility] Last Admin: 03/02/21 10:42 Dose: 10 ml Sodium Chloride (Sodium Chloride Flush 0.9% 10 Ml Syringe) 20 ml IVP PRN PRN PRN Reason: After Blood Draw Last Admin: 02/15/21 23:44 Dose: 20 ml Spironolactone (Spironolactone 25 Mg Tablet) 25 mg PO DAILY [facility] Last Admin: 03/02/21 10:39 Dose: 25 mg Thiamine HCl (Thiamine 100 Mg Tablet) 100 mg PO DAILY [facility] Last Admin: 03/02/21 10:42 Dose: 100 mg Citalopram [CeleXA] 10 mg ORAL DAILY 09/15/20 Gabapentin [Neurontin] 300 mg PO 0800,1400 PRN 01/19/21 Gabapentin [Neurontin] 600 mg PO QPM 01/19/21 Metoprolol Succinate [Toprol Xl] 25 mg PO DAILY 01/19/21
[2021-03-02] MEDS: GABAPENTIN 300 MG CAPSULE PO SCH (21:09)
[2021-03-03] MEDS: SODIUM CHLORIDE FLUSH 0.9% 10 ML SYRINGE IVP SCH ×3 (02:25→18:03)
[2021-03-03] MEDS: FUROSEMIDE 40 MG TABLET PO SCH (10:07)
[2021-03-03] MEDS: METOPROLOL SUCCINATE 25 MG TABLET PO SCH (10:07)
[2021-03-03] MEDS: DIGOXIN 125 MCG TABLET PO SCH (10:07)
[2021-03-03] MEDS: oxyCODONE 5 MG TABLET PO PRN ×3 (10:07→20:50)
[2021-03-03] MEDS: SPIRONOLACTONE 25 MG TABLET PO SCH (10:08)
[2021-03-03] MEDS: lisinopriL 5 MG TABLET PO SCH (10:08)
[2021-03-03] MEDS: GABAPENTIN 300 MG CAPSULE PO PRN ×2 (10:08→15:12)
[2021-03-03] MEDS: THIAMINE 100 MG TABLET PO SCH (10:08)
[2021-03-03] MEDS: MULTIVITAMIN TABLET PO SCH (10:08)
--- NOTE | 2021-03-03 19:41 | PROVIDER PROGRESS NOTE ---
Progress Note March 03, 2021 7:36 PM This pleasant gentleman has been here for 45 days awaiting placement. His initial admission was for congestive heart failure, as well as COPD resulting in shortness of breath and hypoxia. Weight on admission was 66 kg and he has been around 60 kg for several weeks now. We think that this is his baseline weight. He is awaiting placement. Temperature 36.6, heart rate 79, blood pressure 99/81. Earlier today he was 137 and 142 systolic. Respirations are 20 and unlabored he is 97% on room air. He tells me that nothing new is going on. He is a comfortable, alert, white male. Sitting upright in bed, sometimes gets in chair, to watch TV. Eating 100% of his meals. Neck is supple no JVD Lungs are clear with no labored respiration Regular rate and rhythm with a laterally displaced PMI Abdomen is soft, nontender nondistended with last BM today No edema Last lab work done January 30. Assessment/plan Medically stable white male with end-stage heart disease and ejection fraction of 20%, COPD without exacerbation, awaiting placement to [facility] and to hospice status. No changes. We will order lab work for tomorrow morning for a monthly check.
[2021-03-03] MEDS: GABAPENTIN 300 MG CAPSULE PO SCH (20:50)
[2021-03-04 06:11] LABS: CREATININE 1.1 mg/dL (0.6-1.2); POTASSIUM 4.4 mmol/L (3.5-5.0)
[2021-03-04] MEDS: SODIUM CHLORIDE FLUSH 0.9% 10 ML SYRINGE IVP SCH ×3 (07:46→20:42)
[2021-03-04] MEDS: THIAMINE 100 MG TABLET PO SCH (09:52)
[2021-03-04] MEDS: DIGOXIN 125 MCG TABLET PO SCH (09:52)
[2021-03-04] MEDS: MULTIVITAMIN TABLET PO SCH (09:52)
[2021-03-04] MEDS: oxyCODONE 5 MG TABLET PO PRN ×2 (09:52→20:41)
[2021-03-04] MEDS: FUROSEMIDE 40 MG TABLET PO SCH (09:52)
[2021-03-04] MEDS: METOPROLOL SUCCINATE 25 MG TABLET PO SCH (09:53)
[2021-03-04] MEDS: lisinopriL 5 MG TABLET PO SCH (09:53)
[2021-03-04] MEDS: SPIRONOLACTONE 25 MG TABLET PO SCH (09:53)
[2021-03-04] MEDS: GABAPENTIN 300 MG CAPSULE PO PRN (09:55)
--- NOTE | 2021-03-04 20:18 | PROVIDER PROGRESS NOTE ---
Progress Note Very 2021 8:09 PM Well, after 46 days, the patient is found appropriate placement with payment toward that placement. However, after investigation, he would only have about $70 a month left over. It was described to him as having all of his needs met. His medications, food, help with bathing, and hospice care. But he says is $70 a month is just too little for him. He is honest and says that he likes his cigarettes and he needs to be able to smoke 2 packs/day. So after that decision, he has decided to go back to staying in the retirement at night, and the [facility] during the day. He cannot be in hospice because hospice does not except "homeless" status. As such she will be transition to palliative care. He thinks this for all of her care. He reports that the nurses and the doctors have been wonderful and he feels like if he ever gets sick again he has to come back to , he knows that he is in good hands if we take care of him. Medications on admission did not include any congestive heart failure drugs except metoprolol. The patient is now on: Lanoxin 0.125 daily, Lasix 40 mg daily, Aldactone 25 mg daily, Zestril 2.5 mg daily, metoprolol XL 25 mg daily for his congestive heart failure. For severe leg pain he is on Neurontin 300 mg 3 times a day as needed and 600 mg fixed schedule dose at night. He is on a multivitamin, thiamine, oxycodone 5 mg as needed. He uses the oxycodone anywhere from once to 3 times a day as needed. Temperature is 36.7. Heart rate 75. Blood pressure 129/85. Weight on admissi on was 65.5. The lowest he got was 58.5. He has been at 60 or 60.5 kg since February 18. Today he is 61.5 kg. He is an alert, oriented, disheveled white male who looks much older than stated age. Pleasant personality. Cooperative. Apologetic about his need for cigarettes. Long hair, unkempt owens. Good hygiene after being here for so long. Very bad teeth. Neck has shotty adenopathy but is supple without JVD. Lungs are clear without any crackles. He has no increased respiratory effort. He has a regular rate and rhythm, laterally displaced PMI and of soft systolic ejection murmur. He has an intermittent S3. The abdomen is soft, nontender, no masses, no fluid wave. His legs were hugely edematous on admission and have shrunk down considerably. He has no edema now. The skin is slightly dry, cracked. Dependent rubor and onychomycosis is present. He is able to ambulate in his room, is eating 100% of his food. Sodium 134, potassium 4.4, BUN 41, creatinine 1.1. BNP is 351. His max BNP was 6781. White cell count 9.6, hemoglobin 13. Hematocrit 40. Platelet 211. Platelets dropped to 81 by January 22 and started rebounding. Assessment/plan Medically stable white male who presented to the hospital with acute respiratory failure with hypoxemia due to combined end-stage congestive heart failure (acute on chronic systolic) and COPD with emphysema and chronic hypoxia. He has been stabilized with nebulizers. His COPD was not in severe exacerbation. And most successfully, resumption of cardiac meds to control congestive heart failure. We have been awaiting placement for many days now, and now that he has had his evaluation, the true finances are made more apparent to them. Weighing the pros and cons he would rather return to the retirement and the [facility] to live out the rest of his life. We will discharge him tomorrow with palliative care.
[2021-03-04] MEDS: GABAPENTIN 300 MG CAPSULE PO SCH (20:41)
[2021-03-05] MEDS: SODIUM CHLORIDE FLUSH 0.9% 10 ML SYRINGE IVP SCH ×2 (00:52→10:19)
[2021-03-05] MEDS: GABAPENTIN 300 MG CAPSULE PO PRN (10:17)
[2021-03-05] MEDS: MULTIVITAMIN TABLET PO SCH (10:17)
[2021-03-05] MEDS: oxyCODONE 5 MG TABLET PO PRN (10:17)
[2021-03-05] MEDS: METOPROLOL SUCCINATE 25 MG TABLET PO SCH (10:18)
[2021-03-05] MEDS: THIAMINE 100 MG TABLET PO SCH (10:18)
[2021-03-05] MEDS: DIGOXIN 125 MCG TABLET PO SCH (10:18)
[2021-03-05] MEDS: FUROSEMIDE 40 MG TABLET PO SCH (10:19)
[2021-03-05] MEDS: lisinopriL 5 MG TABLET PO SCH (10:19)
[2021-03-05] MEDS: SPIRONOLACTONE 25 MG TABLET PO SCH (10:19)
[2021-03-05 10:24] VITALS: BP 106/72
--- NOTE | 2021-03-05 11:24 | Discharge Plan ---
Discharge Plan Problem Reviewed?: Yes Disposition: Home, Self Care Condition: Poor Prescriptions: oxyCODONE [Roxicodone] 5 mg PO Q4HR PRN #20 tablet PRN Reason: Pain 5 to 7 Spironolactone [Aldactone] 25 mg PO DAILY #30 tablet Digoxin [Lanoxin] 125 mcg PO DAILY #30 tablet Furosemide [Lasix] 40 mg PO DAILY #30 tablet Gabapentin [Neurontin] 300 mg PO 0800,1400 PRN #30 cap PRN Reason: LEG PAIN OR ANXIETY Gabapentin [Neurontin] 600 mg PO QPM #60 cap Albuterol Sulfate [Proair Hfa Inhaler] 1 puffs INH Q4H PRN #1 gm PRN Reason: Shortness Of Air/Wheezing Multivitamin [Theragran] 1 tab PO DAILYWM #30 tablet Metoprolol Succinate [Toprol Xl] 25 mg PO DAILY #30 tablet Thiamine [Vitamin B-1] 100 mg PO DAILY #30 tablet lisinopriL [Zestril] 2.5 mg PO DAILY #30 tablet Diet: Cardiac Activity Restrictions: Activity as Tolerated Shower Restrictions: No (fall precaution) Instruction Topics: Metoprolol tablets, Albuterol inhalation aerosol, Oxycodone tablets or capsules, Lisinopril tablets, Furosemide tablets, Spironolactone tablets, Digoxin, Heart Failure Coping, Heart Failure Congestive Ch Health Concerns: heart failure Plan of Treatment: you chose to be discharged to home rather than to nurse facility. You state you are very much off all your home medications. You are prescribed medications to manage your severe heart failure, afib, peripheral vascular disease, and COPD. Strongly advise you keep medical compliance, quit cigarette smoking and alcohol. You may also followup with out-pt palliative care consultation as well. Care Goals: Stabilization and improvement of your medical conditions Assessment: Discussed the care plan in detail with you, answered your questions, you understood Additional Instructions or Follow Up instructions: You may followup with your PCP or walkin clinic in one week. Should your symptoms return or worsen, you may present to ER or call 911 for help Follow-Up Care: [facility] No Smoking: If you smoke, Please STOP! Call for help.
--- NOTE | 2021-03-05 11:58 | DISCHARGE SUMMARY ---
Discharge Summary Admit Date: 02/18/21 Discharge Date: 03/05/21 Discharging Provider: Chucho Spicer Condition at Discharge: Poor Discharge Disposition: 01 Home, Self Care Discharge Facility Name: home - DIAGNOSES Discharge Diagnoses with Status of Each Condition: (1) Acute on chronic systolic and diastolic heart failure, NYHA class 4 stable. pt is prescribed metoprolol, digoxin, lisinopril, spironolactone, Lasix. pt is alert and oriented plus 4. pt declined to be d/c to nurse facility which he was waiting for 46 days in hospital. but He choose his previous living situation, homeless status. Pt does not accept the arrangement for his d/c to nurse facility. pt may followup with palliative care as well. (2) Peripheral vascular disease stable, resume home gabapentin and short term of Oxycodone for his pain control. (3) COPD (chronic obstructive pulmonary disease) with emphysema Stable, no exacerbation. pt is prescribed Albuterol INH (4) Paroxysmal atrial fibrillation stable. pt is prescribed metoprolol and digoxin (5) Hepatitis Stable (6) ESTEVAN (acute kidney injury) Resolved. (7) Cardiogenic shock Resolved. (8) Hyponatremia Resolved. - HPI History of Present Illness: refer from Dr. Salazar's HPI on 01/18/21 This 60-year-old male with a past medical history significant for chronic systolic heart failure, peripheral neuropathy, paroxysmal atrial ablation who presents today complaining of worsening leg pain and edema for the past 3 days. He reports he had been doing well up until 3 days ago when his leg started to become edematous and then he started to have pain in his legs and feet. He reports having chronic neuropathy for which he takes gabapentin but his pain is much worse since the edema began. He reports having no edema at baseline and that this is new over just the past 3 days. He states he is not on Lasix at home and his only medications are metoprolol, Celexa, gabapentin. 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 He currently lives at a homeless [facility]dc. He has had exertional dyspnea over the past few days but denies chest pain, orthopnea. He has had a nonproductive cough but he attributes this to bronchitis that he had a couple of weeks ago. He continues to smoke a pack a day. He also drinks almost 1/5 of liquor each day but has not drank for the past week. He reports no changes in his medications and denies any herbal supplements. He denies ever being told he has a history of hepatitis B or C. He also denies any history of IV drug use. His states that his legs have become purple over the past day or 2 and only began after the edema started. We discussed goals of care and he confirmed that he is a DNR but he is okay with mechanical ventilation if necessary. - ALLERGIES Allergies/Adverse Reactions: Allergies Allergy/AdvReac Type Severity Reaction Status Date / Time No Known Drug Allergies Allergy Verified 01/18/21 16:44 - MEDICATIONS Home Medications: Ambulatory Orders Medication Instructions Recorded Confirmed Citalopram [CeleXA] 10 mg ORAL DAILY 09/15/20 01/19/21 Albuterol Sulfate [Proair Hfa 1 puffs INH Q4H PRN #1 gm 03/05/21 Inhaler] Digoxin [Lanoxin] 125 mcg PO DAILY #30 tablet 03/05/21 Furosemide [Lasix] 40 mg PO DAILY #30 tablet 03/05/21 Gabapentin [Neurontin] 300 mg PO 0800,1400 PRN #30 cap 03/05/21 Gabapentin [Neurontin] 600 mg PO QPM #60 cap 03/05/21 Metoprolol Succinate [Toprol Xl] 25 mg PO DAILY #30 tablet 03/05/21 Multivitamin [Theragran] 1 tab PO DAILYWM #30 tablet 03/05/21 Spironolactone [Aldactone] 25 mg PO DAILY #30 tablet 03/05/21 Thiamine [Vitamin B-1] 100 mg PO DAILY #30 tablet 03/05/21 lisinopriL [Zestril] 2.5 mg PO DAILY #30 tablet 03/05/21 oxyCODONE [Roxicodone] 5 mg PO Q4HR PRN #20 tablet 03/05/21 - PHYSICAL EXAM AT DISCHARGE General Appearance: positive: No acute distress, Alert. negative: Lethargic Eyes Bilateral: positive: Normal inspection, No lid inflammation ENT: positive: ENT inspection nml, No signs of dehydration. negative: Purulent nasal drainage Neck: positive: Nml inspection, Trachea midline. negative: Tracheal deviation Respiratory: positive: Chest non-tender, No respiratory distress. negative: Wheezes Cardiovascular: positive: Regular rate & rhythm. negative: Tachycardia, Bradycardia, Systolic murmur Peripheral Pulses: positive: 2+ Abdomen: positive: Non-tender, Nml bowel sounds, No distention. negative: Tenderness Back: positive: Nml inspection Skin: positive: Color nml, Warm, Dry. negative: Cyanosis Extremities: positive: Non-tender, Full ROM, Nml appearance Neurologic/Psychiatric: positive: Oriented x3, Motor nml, Sensation nml. negative: Weakness, Sensory loss, Facial droop, Slurred/abnml speech, Depressed mood/affect - LABS Result Diagrams: 01/30/21 14:55 03/04/21 05:50 - FOLLOW UP Follow Up: you chose to be discharged to home rather than to nurse facility. You state you are very much off all your home medications. You are prescribed medications to manage your severe heart failure, afib, peripheral vascular disease, and COPD. Strongly advise you keep medical compliance, quit cigarette smoking and alcohol. You may also followup with out-pt palliative care consultation as well. You may followup with your PCP or walkin clinic in one week. Should your symptoms return or worsen, you may present to ER or call 911 for help - TIME SPENT Time Spent in Discharge (Minutes): 30
== END 2021-03-05 15:00 | disposition home or self-care (01) | DRG 280 ==
LOC: EDUNIT# → ED 16:36 → MS2 18:18 → ICU 01-21 12:00 → MS2 01-24 18:34
PROVIDERS: ADMIT Internal Medicine; ATTEND Nurse Practitioner Gerontology
PROC: 02HV33Z Insertion of Infusion Device into Superior Vena Cava, Percutaneous Approach (ICD-10-PCS; principal; 2021-01-21)
DX: I11.0 Hypertensive heart disease with heart failure (principal); I50.43 Acute on chronic combined systolic (congestive) and diastolic (congestive) heart failure; I21.4 Non-ST elevation (NSTEMI) myocardial infarction; R57.0 Cardiogenic shock; J96.01 Acute respiratory failure with hypoxia; N17.9 Acute kidney failure, unspecified; E87.1 Hypo-osmolality and hyponatremia; I73.9 Peripheral vascular disease, unspecified; J43.9 Emphysema, unspecified; I48.0 Paroxysmal atrial fibrillation; Z66 Do not resuscitate; F17.210 Nicotine dependence, cigarettes, uncomplicated; Z59.00 Homelessness unspecified; E78.00 Pure hypercholesterolemia, unspecified; I25.2 Old myocardial infarction; N40.1 Benign prostatic hyperplasia with lower urinary tract symptoms; R35.0 Frequency of micturition; R35.1 Nocturia; F32.A Depression, unspecified; F41.9 Anxiety disorder, unspecified; H66.90 Otitis media, unspecified, unspecified ear; Z51.5 Encounter for palliative care; G62.9 Polyneuropathy, unspecified; F10.20 Alcohol dependence, uncomplicated; K70.10 Alcoholic hepatitis without ascites; B19.20 Unspecified viral hepatitis C without hepatic coma; Z20.822 Contact with and (suspected) exposure to COVID-19
CPT/HCPCS: 0202U; 36415; 36600; 71045; 71275; 80048; 80053; 80074; 80076; 80162; 80320; 82330; 82803; 83605; 83735; 83880; 84100; 84443; 84484; 85025; 85610; 87150; 91303; 93005; 93306; 93925; 93926; 99223; 99283; 99285; A9270; P9047; Q9967

== ENCOUNTER 2021-03-16 19:32 | Outpatient (CLI) | payer MEDICAID | END 2021-03-16 19:33 | disposition critical access hospital (66) | LOC: EMS 19:32 | DX: M79.672 Pain in left foot (principal); M79.671 Pain in right foot; G62.9 Polyneuropathy, unspecified; Z59.00 Homelessness unspecified | CPT/HCPCS: A0425; A0429 ==

== ENCOUNTER 2021-03-16 19:49 | Emergency (ER) | payer MEDICAID ==
--- NOTE | 2021-03-16 23:24 | ED Physician Documentation ---
History of Present Illness - Stated complaint Stated Complaint: FEET PAIN, HX AFIB - Chief complaint Chief Complaint: Ext Problem - History obtained from History obtained from: Patient - Additonal information Additional information: 60yM, undomiciled and currently staying at [place], recently admitted here and dc from hospital at end of february for palliative care follow up p/w BL foot pain and "swelling" of indeterminate time frame. patient is clinically intoxicated with alcohol. endorses drinking a pint of alcohol today which he states is the norm. 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 : Benign prostate hypertrophy, Nocturia, Frequency HEENT: Chronic vision loss, Chronic sinusitis Psych: Depression, Anxiety Musculoskeletal: Chronic back pain Derm: None - Past Surgical History Past Surgical History: Yes HEENT: Tonsil/Adenoidectomy - Present Medications Home Medications: Ambulatory Orders Medication Instructions Recorded Confirmed Citalopram [CeleXA] 10 mg ORAL DAILY 09/15/20 03/17/21 Albuterol Sulfate [Proair Hfa 1 puffs INH Q4H PRN #1 gm 03/05/21 03/17/21 Inhaler] Digoxin [Lanoxin] 125 mcg PO DAILY #30 tablet 03/05/21 03/17/21 Furosemide [Lasix] 40 mg PO DAILY #30 tablet 03/05/21 03/17/21 Gabapentin [Neurontin] 300 mg PO 0800,1400 PRN #30 cap 03/05/21 03/17/21 Gabapentin [Neurontin] 600 mg PO QPM #60 cap 03/05/21 03/17/21 Metoprolol Succinate [Toprol Xl] 25 mg PO DAILY #30 tablet 03/05/21 03/17/21 Multivitamin [Theragran] 1 tab PO DAILYWM #30 tablet 03/05/21 03/17/21 Spironolactone [Aldactone] 25 mg PO DAILY #30 tablet 03/05/21 03/17/21 Thiamine [Vitamin B-1] 100 mg PO DAILY #30 tablet 03/05/21 03/17/21 lisinopriL [Zestril] 2.5 mg PO DAILY #30 tablet 03/05/21 03/17/21 oxyCODONE [Roxicodone] 5 mg PO Q4HR PRN #20 tablet 03/05/21 03/17/21 - Allergies Allergies/Adverse Reactions: Allergies Allergy/AdvReac Type Severity Reaction Status Date / Time No Known Drug Allergies Allergy Verified 03/16/21 19:55 - Social History Does the pt smoke?: Yes Smoking Status: Current every day smoker Does the pt drink ETOH?: No Does the pt have substance abuse?: Yes - Immunizations Immunizations are current?: Yes - POLST Patient has POLST: Yes POLST Status: DNR PD ED PE NORMAL - Vitals Vital signs reviewed: Yes - General General: Alert and oriented X 3, No acute distress, Other (appears older than stated age. disheveled. clinically intoxicated) - HEENT HEENT: Atraumatic, PERRL, EOMI - Neck Neck: Supple, no meningeal sign - Cardiac Cardiac: RRR - Respiratory Respiratory: No respiratory distress, Clear bilaterally - Abdomen Abdomen: Non tender, Non distended - Derm Derm: Normal color, Warm and dry - Extremities Extremities: No deformity, No edema - Neuro Neuro: Alert and oriented X 3, No motor deficit, No sensory deficit - Psych Psych: Other (clinically intoxicated) Results - Vitals Vitals: Vital Signs - 24 hr 03/16/21 03/17/21 03/17/21 19:45 00:00 00:21 Temperature 36.2 C L 36.8 C Heart Rate 86 82 Respiratory 16 20 14 Rate Blood Pressure 95/78 114/84 H O2 Saturation 98 98 03/17/21 06:26 Temperature 36.7 C Heart Rate 97 Respiratory 18 Rate Blood Pressure 120/83 H O2 Saturation 98 Oxygen O2 Source Room air PD MEDICAL DECISION MAKING - ED course ED course: 60yM p/w foot pain (has history of neuropathy) and alcohol intoxication. will monitor for sobriety and dc when sober. Patient requested social work evaluation for possible detox. will endorsed to daytime MD Dr. Garza. Departure - Departure Clinical Impression: Alcohol abuse, Neuropathy Condition: Stable
[2021-03-17 06:27] VITALS: BP 120/83
== END 2021-03-17 13:30 | disposition home or self-care (01) ==
LOC: EDUNIT# → ED 19:49
DX: G62.9 Polyneuropathy, unspecified (principal); F10.10 Alcohol abuse, uncomplicated; I10 Essential (primary) hypertension; I73.9 Peripheral vascular disease, unspecified; I48.91 Unspecified atrial fibrillation; F17.200 Nicotine dependence, unspecified, uncomplicated; Z59.01 Sheltered homelessness; Z66 Do not resuscitate
CPT/HCPCS: 99281; 99283

== ENCOUNTER 2021-03-24 08:59 | Outpatient (CLI) | payer MEDICAID | END 2021-03-24 09:00 | disposition critical access hospital (66) | LOC: EMS 08:59 | DX: T69.9XXA Effect of reduced temperature, unspecified, initial encounter (principal); G62.9 Polyneuropathy, unspecified; Z59.02 Unsheltered homelessness | CPT/HCPCS: A0425; A0429 ==

== ENCOUNTER 2021-03-24 09:17 | Emergency (ER) | payer MEDICAID ==
--- NOTE | 2021-03-24 09:25 | ED Physician Documentation ---
PD HPI FOCAL NEURO - Stated complaint Stated Complaint: EXPOSURE - Chief complaint Chief Complaint: General - History obtained from History obtained from: Patient, EMS - History of Present Illness Timing - onset: How many days ago (patient has been cold outside the past 3 days with environmental temperatures colder. He states he sleeps at bus stops. Had a "falling out" with the residential, so not wanting to go there. he says his legs feel weak with increased neuropathy.) Timing - duration: Days (3) Timing - details: Gradual onset, Still present (shivering cold and weak this morning, so friend called EMS.) Severity of deficit: Moderate Weakness: Leg, Right, Left Associated symptoms: No: Headache, Nausea / vomiting Baseline status: positive: A&OX3, ambulatory, indep Similar symptoms before: Diagnosis (homeless so cold exposed but had been in shelters, now outdoors the past week or so. History of neuropathy in legs.) Recently seen: Not recently seen Review of Systems Constitutional: denies: Fever, Chills Nose: denies: Rhinorrhea / runny nose, Congestion Throat: denies: Sore throat Respiratory: denies: Dyspnea, Cough GI: denies: Abdominal Pain, Vomiting, Diarrhea, Bloody / black stool Musculoskeletal: denies: Neck pain, Back pain PD PAST MEDICAL HISTORY - Past Medical History Cardiovascular: Congestive heart failure, Hypertension, High cholesterol, Peripheral Vascular Disease, [place], Atrial fibrillation, Arrhythmia, Valve disorder Respiratory: COPD, Emphysema, Shortness of breath Neuro: Head injury, Headaches, Peripheral neuropathy Endocrine/Autoimmune: None GI: GERD, Hepatitis (Hx of hepatitis C) 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 : Benign prostate hypertrophy, Nocturia, Frequency HEENT: Chronic vision loss, Chronic sinusitis Psych: Depression, Anxiety Musculoskeletal: Chronic back pain Derm: None - Past Surgical History Past Surgical History: Yes HEENT: Tonsil/Adenoidectomy - Present Medications Home Medications: Ambulatory Orders Medication Instructions Recorded Confirmed Citalopram [CeleXA] 10 mg ORAL DAILY 09/15/20 03/24/21 Albuterol Sulfate [Proair Hfa 1 puffs INH Q4H PRN #1 gm 03/05/21 03/24/21 Inhaler] Digoxin [Lanoxin] 125 mcg PO DAILY #30 tablet 03/05/21 03/24/21 Furosemide [Lasix] 40 mg PO DAILY #30 tablet 03/05/21 03/24/21 Gabapentin [Neurontin] 300 mg PO 0800,1400 PRN #30 cap 03/05/21 03/24/21 Gabapentin [Neurontin] 600 mg PO QPM #60 cap 03/05/21 03/24/21 Metoprolol Succinate [Toprol Xl] 25 mg PO DAILY #30 tablet 03/05/21 03/24/21 Multivitamin [Theragran] 1 tab PO DAILYWM #30 tablet 03/05/21 03/24/21 Spironolactone [Aldactone] 25 mg PO DAILY #30 tablet 03/05/21 03/24/21 Thiamine [Vitamin B-1] 100 mg PO DAILY #30 tablet 03/05/21 03/24/21 lisinopriL [Zestril] 2.5 mg PO DAILY #30 tablet 03/05/21 03/24/21 - Allergies Allergies/Adverse Reactions: Allergies Allergy/AdvReac Type Severity Reaction Status Date / Time No Known Drug Allergies Allergy Verified 03/16/21 19:55 - Social History Does the pt smoke?: Yes Smoking Status: Current every day smoker Does the pt drink ETOH?: No Does the pt have substance abuse?: Yes - Immunizations Immunizations are current?: Yes - POLST Patient has POLST: Yes POLST Status: DNR PD ED PE NORMAL - Vitals Vital signs reviewed: Yes - General General: Alert and oriented X 3, No acute distress, Other (smell of alcohol on breath). No: Well developed/nourished (disheveled and ungroomed) - HEENT HEENT: Atraumatic - Neck Neck: Supple, no meningeal sign, No adenopathy - Cardiac Cardiac: RRR, No murmur - Respiratory Respiratory: Clear bilaterally - Abdomen Abdomen: Soft, Non tender - Derm Derm: Normal color, Warm and dry - Extremities Extremities: Other (foot and toes exam without signs of frostbite. ) - Neuro Neuro: Alert and oriented X 3, No motor deficit (some general weakness in legs but symmetric movements. ), No sensory deficit, Normal speech Results - Vitals Vitals: Vital Signs - 24 hr 03/24/21 03/24/21 09:20 10:08 Temperature 35.9 C L 37 C Heart Rate 100 96 Respiratory 20 18 Rate Blood Pressure 153/93 H 144/89 H O2 Saturation 97 97 Oxygen O2 Source Room air - Labs Labs: Laboratory Tests 03/24/21 03/24/21 09:30 09:30 WBC 9.1 RBC 4.48 L Hgb 13.8 L Hct 41.2 L MCV 92.0 MCH 30.8 MCHC 33.5 RDW 14.7 Plt Count 275 MPV 10.4 Neut # (Auto) 7.4 H Lymph # (Auto) 1.0 L [place] # (Auto) 0.6 Eos # (Auto) 0.0 Baso # (Auto) 0.0 Absolute Nucleated RBC 0.00 Nucleated RBC % 0.0 Sodium 137 Potassium 4.1 Chloride 98 L Carbon Dioxide 22 Anion Gap 17.0 H BUN 17 Creatinine 0.8 Estimated GFR (MDRD) 99 Glucose 70 Calcium 8.9 Magnesium 1.7 Total Bilirubin 0.9 AST 29 ALT 18 Alkaline Phosphatase 55 Total Creatine Kinase 227 Total Protein 7.6 Albumin 4.1 Globulin 3.5 Albumin/Globulin Ratio 1.2 Lipase 41 Ethyl Alcohol 34.8 PD MEDICAL DECISION MAKING - ED course Complexity details: considered differential (essentially cold and hungry. Can do passive external warming as core temp is okay. ), d/w patient Departure - Departure Disposition: 01 Home, Self Care Clinical Impression: Leg weakness, bilateral, Homelessness Exposure to environmental cold Qualifiers: Encounter type: initial encounter Qualified Code(s): T69.9XXA - Effect of reduced temperature, unspecified, initial encounter Condition: Stable Record reviewed to determine appropriate education?: Yes Comments: Stay well-hydrated and regular diet. Continue to avoid alcohol. Regular alcohol use can augment your neuropathy. Your basic electrolytes are good here on blood testing. Continue usual medications. Discharge Date/Time: 03/24/21 11:21
[2021-03-24 09:57] LABS: BASOPHILS % (AUTO) 0.4 %; EOSINOPHILS % (AUTO) 0.2 %; HCT - HEMATOCRIT 41.2 % (42.0-52.0); HGB - HEMOGLOBIN 13.8 g/dL (14.0-18.0); MEAN CORPUSCULAR HEMOGLOBIN 30.8 pg (27.0-31.0); MEAN CORPUSCULAR HGB CONC 33.5 g/dL (32.0-36.0); MEAN PLATELET VOLUME 10.4 fL (7.4-11.4); MONOCYTES # (AUTO) 0.6 10^3/uL (0.0-1.0); MONOCYTES % (AUTO) 6.4 %; NEUTROPHILS # (AUTO) 7.4 10^3/uL (1.5-6.6); NEUTROPHILS % (AUTO) 81.7 %; PLT - PLATELET COUNT 275 10^3/uL (130-450); RED BLOOD COUNT 4.48 10^6/uL (4.70-6.10); RED CELL DISTRIBUTION WIDTH 14.7 % (12.0-15.0); WHITE BLOOD COUNT 9.1 x10^3/uL (4.8-10.8)
[2021-03-24 10:07] LABS: ALBUMIN 4.1 g/dL (3.2-5.5); ALBUMIN/GLOBULIN RATIO 1.2 (1.0-2.2); BILIRUBIN,TOTAL 0.9 mg/dL (0.2-1.0); CALCIUM 8.9 mg/dL (8.5-10.3); CREATININE 0.8 mg/dL (0.6-1.2); ETOH - ETHANOL 34.8 mg/dL; MAGNESIUM 1.7 mg/dL (1.7-2.8); POTASSIUM 4.1 mmol/L (3.5-5.0); TOTAL PROTEIN 7.6 g/dL (6.7-8.2)
[2021-03-24 10:09] VITALS: BP 144/89
== END 2021-03-24 11:21 | disposition home or self-care (01) ==
LOC: EDUNIT# → ED 09:17
DX: R29.898 Other symptoms and signs involving the musculoskeletal system (principal); T69.8XXA Other specified effects of reduced temperature, initial encounter; X31.XXXA Exposure to excessive natural cold, initial encounter; Z59.00 Homelessness unspecified; G62.9 Polyneuropathy, unspecified; I10 Essential (primary) hypertension; J43.9 Emphysema, unspecified; F17.200 Nicotine dependence, unspecified, uncomplicated; Z66 Do not resuscitate
CPT/HCPCS: 36415; 80053; 80320; 82550; 83690; 83735; 85025; 99282; 99283

== ENCOUNTER 2021-03-26 01:38 | Outpatient (CLI) | payer MEDICAID | END 2021-03-26 01:39 | disposition critical access hospital (66) | LOC: EMS 01:38 | DX: R07.89 Other chest pain (principal); R07.81 Pleurodynia | CPT/HCPCS: A0425; A0429; A0999 ==

== ENCOUNTER 2021-03-26 01:52 | Emergency (ER) | payer MEDICAID ==
[2021-03-26 02:26] LABS: BASOPHILS % (AUTO) 0.5 %; EOSINOPHILS # (AUTO) 0.2 10^3/uL (0.0-0.7); EOSINOPHILS % (AUTO) 1.9 %; HCT - HEMATOCRIT 41.9 % (42.0-52.0); HGB - HEMOGLOBIN 14.1 g/dL (14.0-18.0); LYMPHOCYTES # (AUTO) 2.7 10^3/uL (1.5-3.5); LYMPHOCYTES % (AUTO) 33.9 %; MEAN CORPUSCULAR HEMOGLOBIN 30.8 pg (27.0-31.0); MEAN CORPUSCULAR HGB CONC 33.7 g/dL (32.0-36.0); MEAN CORPUSCULAR VOLUME 91.5 fL (80.0-94.0); MONOCYTES # (AUTO) 0.9 10^3/uL (0.0-1.0); MONOCYTES % (AUTO) 11.9 %; NEUTROPHILS # (AUTO) 4.1 10^3/uL (1.5-6.6); NEUTROPHILS % (AUTO) 51.4 %; PLT - PLATELET COUNT 305 10^3/uL (130-450); RED BLOOD COUNT 4.58 10^6/uL (4.70-6.10); RED CELL DISTRIBUTION WIDTH 14.7 % (12.0-15.0); WHITE BLOOD COUNT 7.9 x10^3/uL (4.8-10.8)
[2021-03-26 02:38] LABS: ALBUMIN 4.4 g/dL (3.2-5.5); ALBUMIN/GLOBULIN RATIO 1.2 (1.0-2.2); CALCIUM 9.1 mg/dL (8.5-10.3); CREATININE 0.7 mg/dL (0.6-1.2); POTASSIUM 4.1 mmol/L (3.5-5.0); TOTAL PROTEIN 8.1 g/dL (6.7-8.2)
--- NOTE | 2021-03-26 03:10 | ED Physician Documentation ---
PD HPI CHEST PAIN - Stated complaint Stated Complaint: CHEST WALL PAIN, RT SIDE PAIN, COUGH - Chief complaint Chief Complaint: Cardiac - History obtained from History obtained from: Patient, EMS - History of Present Illness Timing - onset: Enter time (22:00), Today Timing - onset during: Light activity Timing - details: Constant Quality: Pain Radiation: Other (does not radiate) Improved by: Other (no ameliorating factorsd) Worsened by: Other (no exacerbating factors) Associated symptoms: Shortness of air. No: Diaphoresis, Nausea, Vomiting, Feeling faint / dizzy, General Weakness, Palpitations, Cough Recently seen: Emergency Dept - Additional information Additional information: BIBA. Patients chief complaint is right upper anterior chest pain that began at approximately 10 PM tonight while walking, associated with mild dyspnea. Denies h/o similar pain. He also c/o chronic BLE pain attributed to peripheral neuropathy. Review of Systems Constitutional: reports: Reviewed and negative Cardiac: reports: Chest pain / pressure. denies: Palpitations, Pedal edema Respiratory: reports: Dyspnea. 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 : Benign prostate hypertrophy, Nocturia, Frequency HEENT: Chronic vision loss, Chronic sinusitis Psych: Depression, Anxiety Musculoskeletal: Chronic back pain Derm: None Other Past Medical History: ETOH - Past Surgical History Past Surgical History: Yes HEENT: Tonsil/Adenoidectomy - Present Medications Home Medications: Ambulatory Orders Medication Instructions Recorded Confirmed Citalopram [CeleXA] 10 mg ORAL DAILY 09/15/20 03/24/21 Albuterol Sulfate [Proair Hfa 1 puffs INH Q4H PRN #1 gm 03/05/21 03/24/21 Inhaler] Digoxin [Lanoxin] 125 mcg PO DAILY #30 tablet 03/05/21 03/24/21 Furosemide [Lasix] 40 mg PO DAILY #30 tablet 03/05/21 03/24/21 Gabapentin [Neurontin] 300 mg PO 0800,1400 PRN #30 cap 03/05/21 03/24/21 Gabapentin [Neurontin] 600 mg PO QPM #60 cap 03/05/21 03/24/21 Metoprolol Succinate [Toprol Xl] 25 mg PO DAILY #30 tablet 03/05/21 03/24/21 Multivitamin [Theragran] 1 tab PO DAILYWM #30 tablet 03/05/21 03/24/21 Spironolactone [Aldactone] 25 mg PO DAILY #30 tablet 03/05/21 03/24/21 Thiamine [Vitamin B-1] 100 mg PO DAILY #30 tablet 03/05/21 03/24/21 lisinopriL [Zestril] 2.5 mg PO DAILY #30 tablet 03/05/21 03/24/21 DULoxetine [Cymbalta] 30 mg PO DAILY #30 cap 03/26/21 Gabapentin [Neurontin] 300 mg PO DAILY #14 cap 03/26/21 methocarbamoL [Methocarbamol] 750 mg PO BID PRN #14 tablet 03/26/21 - Allergies Allergies/Adverse Reactions: Allergies Allergy/AdvReac Type Severity Reaction Status Date / Time No Known Drug Allergies Allergy Verified 03/16/21 19:55 - Social History Does the pt smoke?: Yes Smoking Status: Current every day smoker Does the pt drink ETOH?: Yes ETOH Use: Liquor Does the pt have substance abuse?: Yes - Immunizations Immunizations are current?: Yes - POLST Patient has POLST: Yes POLST Status: DNR PD ED PE NORMAL - Vitals Vital signs reviewed: Yes - General General: Alert and oriented X 3, No acute distress, Well developed/nourished - Cardiac Cardiac: RRR, No murmur - Respiratory Respiratory: No respiratory distress, Clear bilaterally - Abdomen Abdomen: Soft, Non tender - Derm Derm: Normal color, Warm and dry Results - Vitals Vitals: Oxygen O2 Source Room air - EKG (time done) No standard instances Rate: Rate (enter#) (84) Rhythm: NSR [place]: LAD, Anterior hemiblock Intervals: Normal ND QRS: LVH Ischemia: T wave inversion (V4-V6) Compare to prior EKG: Unchanged from prior EKG (no significant change compared to previous EKG) - Labs Labs: Laboratory Tests 03/26/21 03/26/21 03/26/21 02:15 02:15 02:15 WBC 7.9 RBC 4.58 L Hgb 14.1 Hct 41.9 L MCV 91.5 MCH 30.8 MCHC 33.7 RDW 14.7 Plt Count 305 MPV 10.0 Neut # (Auto) 4.1 Lymph # (Auto) 2.7 [place] # (Auto) 0.9 Eos # (Auto) 0.2 Baso # (Auto) 0.0 Absolute Nucleated RBC 0.00 Nucleated RBC % 0.0 Sodium 137 Potassium 4.1 Chloride 96 L Carbon Dioxide 24 Anion Gap 17.0 H BUN 9 Creatinine 0.7 Estimated GFR (MDRD) 115 Glucose 84 Calcium 9.1 Total Bilirubin 1.0 AST 40 ALT 21 Alkaline Phosphatase 55 Troponin I High Sens 28.0 H* Total Protein 8.1 Albumin 4.4 Globulin 3.7 Albumin/Globulin Ratio 1.2 Lipase 56 H - Rads (name of study) chest xray Radiology: Prelim report reviewed, See rad report PD MEDICAL DECISION MAKING - ED course Complexity details: reviewed old records, reviewed results, re-evaluated patient, considered differential, d/w patient ED course: BIBA. On initial evaluation his chief concern is right chest pain, and his tests tonight (EKG, CXR, blood tests including hsTni) are reassuring. On reevaluation, he is more concerned with chronic BLE pain attributed to peripheral neuropathy. We discussed options for treatment for this and he does not bargain nor argue. After discussing various options, shared decision made to increase the dose of gabapentin for 2 weeks (from 300 QAM, 300 QPM, 600 QHS) to 600 QAM with other doses to remain the same. I also added duloxetine and methocarbimol (he had fill for 10 tablets methocarbimal earlier this month; he cannot recall which medications have been effective, as he has been on many different medications over a long period with various efficacy). Departure - Departure Disposition: 01 Home, Self Care Clinical Impression: Neuropathy, Chest pain, Pulmonary nodule Condition: Good Instructions: ED Chest Pain Atypical Unkn Cause, ED Neuropathy Peripheral, ED Nodule Solitary Pulmonary Follow-Up: Pema Garcia ARNP [Credentialed Staff Provider] - Prescriptions: DULoxetine [Cymbalta] 30 mg PO DAILY #30 cap methocarbamoL [Methocarbamol] 750 mg PO BID PRN #14 tablet PRN Reason: Spasms Gabapentin [Neurontin] 300 mg PO DAILY #14 cap Comments: The cause of your chest pain is not clear at this time; your tests tonight (EKG, blood tests, chest xray) do not have any concerning findings nor do they provide/suggest a cause of your pain. Follow up with your primary care provider, next available appointment. An incidental note of a left-sided pulmonary (lung) nodule was noted on your chest xray. Typically this is reevaluated with further study in several weeks or months (such as repeat chest xray or else CT scan); this can be undertaken by your primary care provider. Contact (office) information has been provided elsewhere on these discharge instructions for a medical provider which you can use if you do not already have a primary care provider. Regarding your peripheral neuropathy, prescriptions for gabapentin, duloxetine, and methacarbomal have all been electronically submitted to [facility] pharmacy in [place]. The gabapentin prescription is for 300 mg; this is to be taken IN ADDITION to your current dosing. This means you will take a total of 600mg in the morning, 300mg in the afternoon, and 600 mg in the evening. I have prescribed two weeks of this extra dose of gabapentin. Discharge Date/Time: 03/26/21 07:41
[2021-03-26 03:26] VITALS: BP 113/90
[2021-03-26] MEDS ORDERED: DULoxetine 30 MG CAPSULE PO STA (04:16)
[2021-03-26] MEDS ORDERED: GABAPENTIN 100 MG CAPSULE PO STA (04:16)
[2021-03-26] MEDS ORDERED: methocarbamoL 500 MG TABLET PO STA (04:16)
--- NOTE | 2021-03-26 08:02 | XRAY Report ---
PROCEDURE: Chest 1 View X-Ray INDICATIONS: Chest pain TECHNIQUE: One view of the chest was acquired. COMPARISON: 01/21/2021. FINDINGS: Surgical changes and devices: None. Lungs and pleura: No pleural effusions or pneumothorax. Lungs are clear of acute opacities. There i s a 1.5 cm in diameter nodule in the periphery of the left upper lung zone is not definitely seen in prior studies.. Mediastinum: Mediastinal contours appear normal. Heart is enlarged. Bones and chest wall: No suspicious bony lesions. Overlying soft tissues appear unremarkable. IMPRESSION: 1. No lung consolidation or pleural effusions. 2. Possible 1.5 cm left lung nodule. Recommend standard 2 view of the chest or CT scan of the chest w hen clinically feasible. Reviewed by: Coretta Carrera MD, PhD on 03/26/2021 8:00 AM [facility] Approved by: Coretta Carrera MD, PhD on 03/26/2021 8:00 AM [facility] Station ID: [id number]
== END 2021-03-26 07:41 | disposition home or self-care (01) ==
LOC: EDUNIT# → ED 01:52
DX: R91.1 Solitary pulmonary nodule (principal); G62.9 Polyneuropathy, unspecified; I10 Essential (primary) hypertension; I48.91 Unspecified atrial fibrillation; I73.9 Peripheral vascular disease, unspecified; F17.200 Nicotine dependence, unspecified, uncomplicated; Z66 Do not resuscitate
CPT/HCPCS: 36415; 71045; 80053; 83690; 84484; 85025; 93005; 99284; A9270

== ENCOUNTER 2021-03-29 19:17 | Outpatient (CLI) | payer MEDICAID | END 2021-03-29 19:18 | disposition critical access hospital (66) | LOC: EMS 19:17 | DX: R51.9 Headache, unspecified (principal); M79.662 Pain in left lower leg; V03.10XA Pedestrian on foot injured in collision with car, pick-up truck or van in traffic accident, initial encounter; Y92.414 Local residential or business street as the place of occurrence of the external cause | CPT/HCPCS: A0425; A0429; A0999 ==

== ENCOUNTER 2021-03-29 19:37 | Emergency (ER) | payer MEDICAID ==
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
[2021-03-29 21:05] VITALS: BP 140/88
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
== END 2021-03-29 22:01 | disposition home or self-care (01) ==
LOC: EDUNIT# → ED 19:37
DX: S09.90XA Unspecified injury of head, initial encounter (principal); M25.511 Pain in right shoulder; M54.2 Cervicalgia; V03.90XA Pedestrian on foot injured in collision with car, pick-up truck or van, unspecified whether traffic or nontraffic accident, initial encounter; Y93.01 Activity, walking, marching and hiking; I10 Essential (primary) hypertension; F17.200 Nicotine dependence, unspecified, uncomplicated; Y92.410 Unspecified street and highway as the place of occurrence of the external cause; Z66 Do not resuscitate
CPT/HCPCS: 99282; 99284

== ENCOUNTER 2021-03-30 01:52 | Emergency (ER) | payer MEDICAID ==
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
[2021-03-31] MEDS ORDERED: oxyCODONE 5 MG TABLET PO STA ×2 (10:13→15:39)
[2021-03-31] MEDS ORDERED: ACETAMINOPHEN 325 MG TABLET PO STA (10:13)
[2021-03-31] MEDS ORDERED: methocarbamoL 500 MG TABLET PO STA (15:39)
--- NOTE | 2021-03-31 15:50 | ED Physician Documentation ---
ED Addendum - Addendum Addendum: 03/31/21 15:48The patient was working with social work today. He was able to maneuver some with his crutches. Social work tried to find a medical respite that would be able to help him but there were no openings available. The patient will be able to go back [facility]. He was given a taxi voucher to get back to [place] and he states friends will need him at [facility] to help get to the [facility]. He was given p.o. pain medicine here. No prescriptions per se. Physician: The patient is discharged from the ER stable to home. Diagnoses: 1. Left lower leg hematoma 2. Chronic pain and neuropathy 3. Homelessness 03/31/21 15:50
[2021-03-31 16:27] VITALS: BP 130/76
== END 2021-03-31 16:00 | disposition home or self-care (01) ==
LOC: ED 01:52
DX: S80.12XA Contusion of left lower leg, initial encounter (principal); V03.90XA Pedestrian on foot injured in collision with car, pick-up truck or van, unspecified whether traffic or nontraffic accident, initial encounter; Z59.00 Homelessness unspecified; I48.91 Unspecified atrial fibrillation; I11.0 Hypertensive heart disease with heart failure; I50.9 Heart failure, unspecified; F17.200 Nicotine dependence, unspecified, uncomplicated; Z66 Do not resuscitate; G89.29 Other chronic pain; G62.9 Polyneuropathy, unspecified
CPT/HCPCS: 29505; 99282; 99283; A9270

== ENCOUNTER 2021-04-11 21:17 | Outpatient (CLI) | payer MEDICAID | END 2021-04-11 23:59 | disposition critical access hospital (66) | LOC: EMS 21:17 | DX: R06.02 Shortness of breath (principal); R05.9 Cough, unspecified; Z59.00 Homelessness unspecified | CPT/HCPCS: A0425; A0429; A0999 ==

== ENCOUNTER 2021-04-11 21:31 | Emergency (ER) | payer MEDICAID ==
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
[2021-04-11 21:58] LABS: BASOPHILS # (AUTO) 0.1 10^3/uL (0.0-0.1); BASOPHILS % (AUTO) 0.6 %; EOSINOPHILS # (AUTO) 0.1 10^3/uL (0.0-0.7); EOSINOPHILS % (AUTO) 1.1 %; HCT - HEMATOCRIT 34.9 % (42.0-52.0); HGB - HEMOGLOBIN 11.3 g/dL (14.0-18.0); LYMPHOCYTES # (AUTO) 1.5 10^3/uL (1.5-3.5); LYMPHOCYTES % (AUTO) 15.1 %; MEAN CORPUSCULAR HEMOGLOBIN 30.6 pg (27.0-31.0); MEAN CORPUSCULAR HGB CONC 32.4 g/dL (32.0-36.0); MEAN CORPUSCULAR VOLUME 94.6 fL (80.0-94.0); MEAN PLATELET VOLUME 9.3 fL (7.4-11.4); MONOCYTES % (AUTO) 9.7 %; NEUTROPHILS # (AUTO) 7.3 10^3/uL (1.5-6.6); NEUTROPHILS % (AUTO) 72.8 %; PLT - PLATELET COUNT 364 10^3/uL (130-450); RED BLOOD COUNT 3.69 10^6/uL (4.70-6.10); RED CELL DISTRIBUTION WIDTH 16.2 % (12.0-15.0)
[2021-04-11 21:59] LABS: VBG PCO2 46.5 mmHg (41-51); VBG PH 7.345 (7.31-7.41)
[2021-04-11 22:00] LABS: VBG BASE EXCESS -1.1 mmol/L (-2 - +2); VBG HCO3 24.8 mmol/L (23-28); VBG OXYGEN SATURATION 88.5 % (60-80); VBG PO2 57.7 mmHg (25-47); VBG TOTAL CO2 26.2 mmol/L (24-29)
--- NOTE | 2021-04-11 22:07 | XRAY Report ---
PROCEDURE: Chest 1 View X-Ray INDICATIONS: Chest Pain TECHNIQUE: One view of the chest was acquired. COMPARISON: 03/26/2021 FINDINGS: Surgical changes and devices: None. Lungs and pleura: No pleural effusions or pneumothorax. There is mild patchy bilateral perihilar opa city. Mediastinum: Mediastinal contours appear normal. Heart size is normal. Bones and chest wall: No suspicious bony lesions. Overlying soft tissues appear unremarkable. IMPRESSION: Mild atypical pneumonia. Reviewed by: Daisy Mac MD on 04/11/2021 10:06 PM [facility] Approved by: Daisy Mac MD on 04/11/2021 10:06 PM [facility] Station ID: [id number]
[2021-04-11 22:14] LABS: ALBUMIN 3.7 g/dL (3.2-5.5); ALBUMIN/GLOBULIN RATIO 1.2 (1.0-2.2); BILIRUBIN,TOTAL 0.6 mg/dL (0.2-1.0); CALCIUM 8.2 mg/dL (8.5-10.3); CREATININE 0.8 mg/dL (0.6-1.2); ETOH - ETHANOL 275.8 mg/dL; POTASSIUM 4.3 mmol/L (3.5-5.0); TOTAL PROTEIN 6.7 g/dL (6.7-8.2)
[2021-04-11 23:15] LABS: B. PARAPERTUSSIS- RESP PCR PAN NOT DETECTED; B. PERTUSSIS- RESP PCR PANEL NOT DETECTED; C. PNEUMONIAE- RESP PCR PANEL NOT DETECTED; CORONAVIRUS 229E-RESP PCR NOT DETECTED; CORONAVIRUS HKU1-RESP PCR NOT DETECTED; CORONAVIRUS NL63-RESP PCR NOT DETECTED; CORONAVIRUS OC43-RESP PCR NOT DETECTED; HUMAN METAPNEUMOVIRUS NOT DETECTED; INFLUENZA A- RESP PCR PANEL NOT DETECTED; INFLUENZA B - RESP PCR PANEL NOT DETECTED; M. PNEUMONIAE- RESP PCR PANEL NOT DETECTED; PARAINFLUENZA VIRUS 1 NOT DETECTED; PARAINFLUENZA VIRUS 2 NOT DETECTED; PARAINFLUENZA VIRUS 3 NOT DETECTED; PARAINFLUENZA VIRUS 4 NOT DETECTED; RHINOVIRUS/ENTEROVIRUS NOT DETECTED; RSV- RESP PCR PANEL NOT DETECTED; SARS-CoV-2 -RESP PCR PANEL NOT DETECTED
[2021-04-12 02:04] VITALS: BP 119/73
== END 2021-04-12 05:24 | disposition home or self-care (01) ==
LOC: EDUNIT# → ED 21:31
DX: J18.9 Pneumonia, unspecified organism (principal); F10.10 Alcohol abuse, uncomplicated; Y90.8 Blood alcohol level of 240 mg/100 ml or more; I11.0 Hypertensive heart disease with heart failure; I50.9 Heart failure, unspecified; F17.200 Nicotine dependence, unspecified, uncomplicated; Z20.822 Contact with and (suspected) exposure to COVID-19
CPT/HCPCS: 0202U; 36415; 71045; 80053; 80320; 82803; 83690; 83880; 84484; 85025; 93005; 99283; 99284

== ENCOUNTER 2021-04-19 18:28 | Outpatient (CLI) | payer MEDICAID | END 2021-04-19 18:29 | disposition critical access hospital (66) | LOC: EMS 18:28 | DX: M79.605 Pain in left leg (principal); W10.9XXA Fall (on) (from) unspecified stairs and steps, initial encounter; Y92.89 Other specified places as the place of occurrence of the external cause | CPT/HCPCS: A0425; A0429; A0999 ==

== ENCOUNTER 2021-04-19 18:48 | Emergency (ER) | payer MEDICAID ==
[2021-04-19 18:58] VITALS: BP 92/66
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
[2021-04-19] MEDS ORDERED: IBUPROFEN 400 MG TABLET PO STA (20:35)
== END 2021-04-19 21:34 | disposition home or self-care (01) ==
LOC: EDUNIT# → ED 18:48
DX: S89.92XA Unspecified injury of left lower leg, initial encounter (principal); V03.99XA Pedestrian with other conveyance injured in collision with car, pick-up truck or van, unspecified whether traffic or nontraffic accident, initial encounter; F10.20 Alcohol dependence, uncomplicated; I11.0 Hypertensive heart disease with heart failure; I50.9 Heart failure, unspecified; I48.91 Unspecified atrial fibrillation; F17.200 Nicotine dependence, unspecified, uncomplicated; Z59.00 Homelessness unspecified
CPT/HCPCS: 99281; 99283; A9270

== ENCOUNTER 2021-05-02 09:27 | Outpatient (CLI) | payer MEDICAID | END 2021-05-02 09:28 | disposition critical access hospital (66) | LOC: EMS 09:27 | DX: M79.662 Pain in left lower leg (principal) | CPT/HCPCS: A0425; A0429; A0999 ==

== ENCOUNTER 2021-05-02 09:48 | Emergency (ER) | payer MEDICAID ==
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
[2021-05-02 10:13] LABS: BASOPHILS # (AUTO) 0.1 10^3/uL (0.0-0.1); BASOPHILS % (AUTO) 0.4 %; EOSINOPHILS % (AUTO) 0.1 %; HCT - HEMATOCRIT 38.6 % (42.0-52.0); HGB - HEMOGLOBIN 12.8 g/dL (14.0-18.0); LYMPHOCYTES % (AUTO) 9.1 %; MEAN CORPUSCULAR HEMOGLOBIN 31.8 pg (27.0-31.0); MEAN CORPUSCULAR HGB CONC 33.2 g/dL (32.0-36.0); MEAN PLATELET VOLUME 10.3 fL (7.4-11.4); MONOCYTES # (AUTO) 1.4 10^3/uL (0.0-1.0); MONOCYTES % (AUTO) 12.1 %; NEUTROPHILS # (AUTO) 8.7 10^3/uL (1.5-6.6); NEUTROPHILS % (AUTO) 77.2 %; NRBC ABSOLUTE COUNT (AUTO) 0.05 x10^3/uL; NUCLEATED RED BLOOD CELLS AUTO 0.4 /100WBC; PLT - PLATELET COUNT 353 10^3/uL (130-450); RED BLOOD COUNT 4.02 10^6/uL (4.70-6.10); RED CELL DISTRIBUTION WIDTH 18.7 % (12.0-15.0); WHITE BLOOD COUNT 11.3 x10^3/uL (4.8-10.8)
[2021-05-02] MEDS: HYDROmorphone 1 MG/ML CARPUJECT IVP STA ×3 (10:14→16:29)
[2021-05-02 10:18] LABS: INR 1.3 (0.8-1.2)
[2021-05-02 10:30] LABS: ALBUMIN 3.7 g/dL (3.2-5.5); ALBUMIN/GLOBULIN RATIO 1.2 (1.0-2.2); BILIRUBIN,TOTAL 1.6 mg/dL (0.2-1.0); CALCIUM 8.2 mg/dL (8.5-10.3); CREATININE 1.4 mg/dL (0.6-1.2); CRP - C-REACTIVE PROTEIN 6.3 mg/dL (0-1.0); ETOH - ETHANOL 331.7 mg/dL; TOTAL PROTEIN 6.7 g/dL (6.7-8.2)
--- NOTE | 2021-05-02 10:40 | XRAY Report ---
PROCEDURE: Tib/Fib LT INDICATIONS: leg infection TECHNIQUE: 2 views of the upper and lower tibia and fibula were acquired. COMPARISON: Left tibia/fibular radiographs 03/29/2021 FINDINGS: Bones: No acute fractures or dislocations. No suspicious bony lesions. Soft tissues: No suspicious soft tissue calcifications or masses. Skin irregularity is seen at the posterior medial aspect of the lower leg with surrounding soft tissue edema. No soft tissue gas is se en. IMPRESSION: Soft tissue wound is seen at the posterior medial aspect of the lower leg with surrounding soft tissu e edema. No acute osseous abnormality. No radiopaque foreign body. Reviewed by: Joce Duron MD on 05/02/2021 9:38 AM [facility] Approved by: Joce Duron MD on 05/02/2021 9:38 AM [facility] Station ID: [id number]
[2021-05-02 10:45] LABS: DIGOXIN < 0.2 ng/mL
[2021-05-02] MEDS: SODIUM CHLORIDE 0.9% 1,000 ML IV STA (11:51)
[2021-05-02] MEDS ORDERED: ceFAZolin 1 GM VIAL ONE (11:51)
[2021-05-02] MEDS: METOPROLOL 5 MG/5 ML VIAL IVP STA (11:55)
--- NOTE | 2021-05-02 12:34 | Ultrasound Report ---
PROCEDURE: Duplex Lwr Ext Arterial LT INDICATIONS: leg infection, poor perfusion TECHNIQUE: Color and pulse Doppler interrogation was performed of the left lower extremity arterial system, with image documentation. COMPARISON: None FINDINGS: Common femoral artery: 32 cm/sec, with trace flow. Deep femoral artery: 23 cm/sec, with triphasic flow. Proximal superficial femoral artery: 51 cm/sec, with triphasic flow. Mid superficial femoral artery: 39 cm/sec, with triphasic flow. Distal superficial femoral artery: 27 cm/sec, with biphasic flow. Popliteal artery: 30 cm/sec, with triphasic flow. Posterior tibial artery: 38 cm/sec, with triphasic flow. Anterior tibial artery/dorsalis pedis: 33/10 cm/sec, with triphasic/monophasic flow. [place]cido-scale imaging description: Mild scattered plaque. IMPRESSION: Monophasic flow at the dorsalis pedis. Lower extremity vasculature is widely patent although does demonstrate mild decreased flow. Overall t riphasic waveforms are noted except in the distal most portion. Inflow stenosis at the distal aorta/c ommon iliac cannot be excluded. Reviewed by: Valencia Seals MD on 05/02/2021 12:32 PM PDT Approved by: Valencia Seals MD on 05/02/2021 12:32 PM PDT Station ID: [id number]
[2021-05-02 12:42] LABS: VBG BASE EXCESS -10.2 mmol/L (-2 - +2); VBG HCO3 15.4 mmol/L (23-28); VBG OXYGEN SATURATION 91.6 % (60-80); VBG PCO2 33.4 mmHg (41-51); VBG PH 7.282 (7.31-7.41); VBG PO2 73.1 mmHg (25-47); VBG TOTAL CO2 16.4 mmol/L (24-29)
[2021-05-02] MEDS: DIGOXIN 500 MCG/2 ML AMP IVP STA (12:59)
[2021-05-02 15:53] VITALS: BP 125/91
[2021-05-02] MEDS ORDERED: ceFAZolin 2 GM in SODIUM CHLORIDE 0.9% 100ML 100 ML IV STA (16:42)
[2021-05-02] MEDS: cefTRIAXone 1 GM in SODIUM CHLORIDE 0.9% MINIBAG 100 ML IV STA (17:13)
[2021-05-02] MEDS: VANCOMYCIN INJ 1 GM in SODIUM CHLORIDE 0.9% 250 ML IV STA (17:13)
[2021-05-02] MEDS: VANCOMYCIN INJ 1 GM in SODIUM CHLORIDE 0.9% 500 ML IV STA (17:14)
== END 2021-05-02 18:05 | disposition short-term general hospital (02) ==
LOC: EDUNIT# → ED 09:48
DX: L97.929 Non-pressure chronic ulcer of unspecified part of left lower leg with unspecified severity (principal); I73.9 Peripheral vascular disease, unspecified; I11.0 Hypertensive heart disease with heart failure; I50.9 Heart failure, unspecified; I48.91 Unspecified atrial fibrillation; F17.200 Nicotine dependence, unspecified, uncomplicated; Z59.00 Homelessness unspecified; F10.10 Alcohol abuse, uncomplicated; Z20.822 Contact with and (suspected) exposure to COVID-19; R07.89 Other chest pain; J44.9 Chronic obstructive pulmonary disease, unspecified
CPT/HCPCS: 36415; 73590; 80053; 80162; 80320; 82803; 83605; 84484; 85025; 85610; 85651; 86140; 87040; 87070; 87205; 87635; 93005; 93926; 96365; 96375; 96376; 99285; 99291; J1170; J3370; J7040; 80048

== ENCOUNTER 2021-05-02 17:58 | Outpatient (CLI) | payer MEDICAID | END 2021-05-02 17:59 | disposition short-term general hospital (02) | LOC: EMS 17:58 | PROVIDERS: ATTEND Emergency Medicine | DX: I96 Gangrene, not elsewhere classified (principal) | CPT/HCPCS: A0425; A0426 ==

== ENCOUNTER 2021-06-02 10:34 | Outpatient (CLI) | payer MEDICAID | END 2021-06-02 10:35 | disposition critical access hospital (66) | LOC: EMS 10:34 | DX: M79.662 Pain in left lower leg (principal) | CPT/HCPCS: A0425; A0429 ==

== ENCOUNTER 2021-06-02 10:53 | Emergency (ER) | payer MEDICAID ==
[2021-06-02 10:59] VITALS: BP 108/81
--- OUTSIDE RECORDS SUMMARY | 2021-06-02 11:10 | EXTERNAL MEDICAL SUMMARY RPT | Continuity of Care Document ---
:1960 Author Organization [facility] Address [address] [place] [address] Phone Allergies No information. Encounters No information. Medications No information. Problems date description facility 20210503 posterior knee wound, tachycardia [facility] 20210502 Severe sepsis without septic shock [facility] 20210502 Sepsis, unspecified organism [facility] 20210502 Other specified abnormalities of plasma [facility] proteins 20210502 Non-pressure chronic ulcer of [facility] unspecified part of left lower leg with fat layer exposed 20210502 Nicotine dependence, unspecified, [facility] uncomplicated 20210502 Local infection of the skin and [facility] subcutaneous tissue, unspecified 20210502 Chronic atrial fibrillation, [facility] unspecified 20210502 Anemia, unspecified [facility] 20210502 Alcoholic hepatitis without ascites [facility] 20210502 Alcohol dependence, uncomplicated [facility] 20210502 Acute and subacute hepatic failure [facility] without coma 20210502 Acidosis [facility] Results No information.
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
== END 2021-06-02 12:12 | disposition home or self-care (01) ==
LOC: EDUNIT# → ED 10:53
DX: Z48.00 Encounter for change or removal of nonsurgical wound dressing (principal); L97.922 Non-pressure chronic ulcer of unspecified part of left lower leg with fat layer exposed; F17.200 Nicotine dependence, unspecified, uncomplicated; Z59.00 Homelessness unspecified; Z66 Do not resuscitate
CPT/HCPCS: 99282; 99283

== ENCOUNTER 2021-06-30 17:48 | Outpatient (CLI) | payer MEDICAID | END 2021-06-30 17:49 | disposition critical access hospital (66) | LOC: EMS 17:48 | DX: R53.1 Weakness (principal); R47.81 Slurred speech; R29.810 Facial weakness; R06.00 Dyspnea, unspecified | CPT/HCPCS: A0425; A0427; A0999 ==

== ENCOUNTER 2021-06-30 18:02 | Emergency (ER) | payer MEDICAID ==
[2021-06-30] MEDS ORDERED: SODIUM CHLORIDE 0.9% 1,000 ML IV STA ×2 (18:10→18:54)
[2021-06-30 18:14] LABS: BASOPHILS % (AUTO) 0.3 %; EOSINOPHILS # (AUTO) 0.1 10^3/uL (0.0-0.7); EOSINOPHILS % (AUTO) 0.8 %; HGB - HEMOGLOBIN 12.8 g/dL (14.0-18.0); LYMPHOCYTES # (AUTO) 1.3 10^3/uL (1.5-3.5); LYMPHOCYTES % (AUTO) 10.8 %; MEAN CORPUSCULAR VOLUME 103.1 fL (80.0-94.0); MEAN PLATELET VOLUME 11.4 fL (7.4-11.4); MONOCYTES # (AUTO) 1.2 10^3/uL (0.0-1.0); MONOCYTES % (AUTO) 10.3 %; NEUTROPHILS # (AUTO) 9.1 10^3/uL (1.5-6.6); NEUTROPHILS % (AUTO) 77.5 %; PLT - PLATELET COUNT 214 10^3/uL (130-450); RED BLOOD COUNT 3.88 10^6/uL (4.70-6.10); RED CELL DISTRIBUTION WIDTH 16.7 % (12.0-15.0); WHITE BLOOD COUNT 11.7 x10^3/uL (4.8-10.8)
[2021-06-30 18:24] LABS: INR 1.4 (0.8-1.2); PT - PROTHROMBIN TIME 15.7 secs (9.9-12.6)
[2021-06-30 18:31] LABS: PARTIAL THROMBOPLASTIN TIME 28.6 secs (24.9-33.3)
--- NOTE | 2021-06-30 18:35 | CT Report ---
PROCEDURE: Head W/O Stroke Protocol INDICATIONS: R sided weakness TECHNIQUE: Noncontrast 4.5 mm thick angled axial sections acquired from the foramen magnum to the vertex, with c oronal reformats. For radiation dose reduction, the following was used: automated exposure control, adjustment of mA and/or kV according to patient size. COMPARISON: 03/29/2021. FINDINGS: Image quality: Excellent. CSF spaces: Basal cisterns are patent. No extra-axial fluid collections. Ventricles are normal in size and shape. Brain: No midline shift. No intracranial masses or hemorrhage. Age-related atrophy is seen. Mild p eriventricular and deep white matter chronic small vessel ischemic changes are seen. [place]-white matte r interface is normal. Skull and face: Calvarium and visualized facial bones are intact, without suspicious lesions. Sinuses: Visualized sinuses and mastoids are clear. IMPRESSION: 1. No CT evidence of acute intracranial abnormalities. 2. No significant changes from previous study. This study fulfills neurological imaging criteria for inclusion or exclusion of acute stroke therapie s based on available published neurological imaging guidelines. This study fulfills neurological imaging criteria for inclusion or exclusion of acute stroke therapie s based on available published neurological imaging guidelines. Reviewed by: Myacol Thomas MD on 06/30/2021 6:33 PM PDT Approved by: Maycol Thomas MD on 06/30/2021 6:33 PM PDT Station ID: [id number]
--- NOTE | 2021-06-30 18:37 | CT Report ---
PROCEDURE: ANGIO HEAD W/WO INDICATIONS: R sided weakness CONTRAST: IV CONTRAST: Optiray 320 ml: 80 PO CONTRAST: *NO PO CONTRAST TECHNIQUE: Precontrast 4.5 mm thick angled axial sections acquired from the foramen magnum to the vertex. Afte r the administration of intravenous contrast, 1 mm thick sections acquired through the [place] of [place] is. Postcontrast 4.5 mm thick sections then re-acquired from the foramen magnum to the vertex. 3-di mensional exrplgy-heolevaol-rbhbndrxqw (MIP) and/or volume rendering reformats were acquired of the c entral intracranial vasculature. For radiation dose reduction, the following was used: automated ex posure control, adjustment of mA and/or kV according to patient size. COMPARISON: CT of head from the same day and 03/29/2021. FINDINGS: Image quality: Excellent. Anterior circulation: Moderate atherosclerotic calcifications are noted involving bilateral distal in tracranial portion of internal carotid arteries with less than 50% stenosis. The flow within the pair ed anterior cerebral arteries is normal and symmetric. The flow within the middle cerebral arteries is normal and symmetric. The anterior communicating artery is seen. No aneurysms are seen. Posterior circulation: Visualized portions of the vertebral arteries demonstrate normal caliber, and join to form a normal appearing basilar artery. Flow within the posterior cerebral arteries is norm al and symmetric. No aneurysms are seen. CSF spaces: Ventricles are normal in size and shape. Basal cisterns are patent. No extra-axial flu id collections. Brain: No midline shift. No intracranial bleeds or masses. Salc[place]-white matter interface appears int act. Skull and face: Calvarium and facial bones appear intact, without suspicious lesions. Sinuses: Visualized sinuses and mastoids are clear. IMPRESSION: 1. No hemodynamically significant stenosis or aneurysm is seen in intracranial circulation. 2. No area of abnormal intracranial enhancement is seen. 3. Moderate atherosclerotic disease in bilateral distal intracranial portion of internal carotid octaviano bravo with less than 50% stenosis. Reviewed by: Maycol Thomas MD on 06/30/2021 6:35 PM PDT Approved by: Maycol Thomas MD on 06/30/2021 6:35 PM PDT Station ID: [id number]
[2021-06-30] MEDS ORDERED: IOVERSOL 320 100 ML VIAL IVP ONE ×2 (18:40→18:55)
--- NOTE | 2021-06-30 18:40 | CT Report ---
PROCEDURE: ANGIO NECK W INDICATIONS: L sided facial droop, L neck pain CONTRAST: IV CONTRAST: Isovue 300 ml: 80 PO CONTRAST: *NO PO CONTRAST TECHNIQUE: After the administration of intravenous contrast, 1.5 mm axial sections acquired from the aortic arch to the [place]. Coronal 3-D maximum intensity projection (MIP) and/or volume rendering ref ormats were then performed. For radiation dose reduction, the following was used: automated exposur e control, adjustment of mA and/or kV according to patient size. COMPARISON: None. FINDINGS: Image quality: Excellent. Carotid system: The great vessels demonstrate a conventional anatomy as they arise from the aortic a rch. The origins of the common carotid arteries appear patent. The common carotid arteries demonstr ate normal calibers and courses. Moderate atherosclerotic calcifications involving left carotid bulb and origin of left internal carotid artery with greater than 70% stenosis involving proximal 9 mm seg ment of left internal carotid artery. No hemodynamically significant stenosis is seen in right caroti d bulb or right internal carotid artery. Posterior circulation: The origins of the vertebral arteries appear patent. The more superior porti ons of the vertebral arteries demonstrate normal course and caliber. They join to form a normal appe aring basilar artery. Soft tissues: Visualized neck soft tissues demonstrate no suspicious abnormalities. The thyroid is normal in size and there are no incidental findings. Bones: No suspicious bony lesions. Visualized cervical spine appears normally aligned. IMPRESSION: 1. Moderate atherosclerotic disease involving left carotid bulb and left proximal internal carotid ar juliann with greater than 70% stenosis involving proximal 9 mm segment of left internal carotid artery. 2. No hemodynamically significant stenosis is seen in right carotid arteries and bilateral vertebral arteries. The estimate of stenosis included in the report of the imaging study was calculated using the NASCET method CLINICAL RECOMMENDATION STATEMENTS: In patients <35 years with an ITN detected on CT, MRI, or extrathyroidal ultrasound, the Committee re commends further evaluation with dedicated thyroid ultrasound if the nodule is "e1 cm and has no susp icious imaging features, and if the patient has normal life expectancy. In patients "e35 years with an ITN detected on CT, MRI, or extrathyroidal ultrasound, the Committee r ecommends further evaluation with dedicated thyroid ultrasound if the nodule is "e1.5 cm and has no s uspicious imaging features, and if the patient has normal life expectancy. (ACR, 2014) Reviewed by: Maycol Thomas MD on 06/30/2021 6:39 PM PDT Approved by: Maycol Thomas MD on 06/30/2021 6:39 PM PDT Station ID: [id number]
--- NOTE | 2021-06-30 19:08 | ED Physician Documentation ---
PD HPI FOCAL NEURO - Stated complaint Stated Complaint: R sided weakness - Chief complaint Chief Complaint: Neuro - History obtained from History obtained from: Patient, EMS - History of Present Illness Timing - onset: Today Weakness: Arm (right), Leg (right and left leg) Numbness: Arm, Right. No: Face, Hand, Leg, Foot, Left Associated symptoms: No: Headache, Nausea / vomiting, Seizure, Syncope, Fall, Head injury, Chest pain, Neck pain, Back pain, Fever Contributing factors: negative: Anticoagulated, Vascular dz, Atrial fibrillation, Prosthetic heart valve Baseline status: positive: A&OX3, ambulatory, indep - Additional information Additional information: Patient is a 61-year-old male, history of homelessness, alcoholism, congestive heart failure who presents to the emergency department with bilateral leg weakness and right arm weakness. He has been drinking heavily today as well. Unclear when the symptoms started. Initial report was 3 PM, the patient states that he woke up like this today. Nothing makes it better or worse. He has had some difficulty breathing as well. Review of Systems Unable to obtain: Intoxicated Ten Systems: 10 systems reviewed and negative Constitutional: denies: Fever, Chills Nose: denies: Rhinorrhea / runny nose, Congestion Cardiac: denies: Chest pain / pressure Respiratory: reports: Dyspnea, Cough : denies: Dysuria Skin: denies: Rash Musculoskeletal: denies: Neck pain, Back pain Neurologic: denies: Headache PD PAST MEDICAL HISTORY - Past Medical History Cardiovascular: Congestive heart failure, Hypertension, High cholesterol, Peripheral Vascular Disease, [place], Atrial fibrillation, Arrhythmia, Valve disorder Respiratory: COPD, Emphysema, Shortness of breath Neuro: Head injury, Headaches, Peripheral neuropathy Endocrine/Autoimmune: None GI: GERD, Hepatitis 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 STARTER: None : Benign prostate hypertrophy, Nocturia, Frequency HEENT: Chronic vision loss, Chronic sinusitis Psych: Depression, Anxiety Musculoskeletal: Chronic back pain Derm: None - Past Surgical History Past Surgical History: Yes HEENT: Tonsil/Adenoidectomy - Present Medications Home Medications: Ambulatory Orders Medication Instructions Recorded Confirmed Citalopram [CeleXA] 10 mg ORAL DAILY 09/15/20 03/30/21 Albuterol Sulfate [Proair Hfa 1 puffs INH Q4H PRN #1 gm 03/05/21 03/30/21 Inhaler] Digoxin [Lanoxin] 125 mcg PO DAILY #30 tablet 03/05/21 03/30/21 Furosemide [Lasix] 40 mg PO DAILY #30 tablet 03/05/21 03/30/21 Gabapentin [Neurontin] 300 mg PO 0800,1400 PRN #30 cap 03/05/21 03/30/21 Gabapentin [Neurontin] 600 mg PO QPM #60 cap 03/05/21 03/30/21 Metoprolol Succinate [Toprol Xl] 25 mg PO DAILY #30 tablet 03/05/21 03/30/21 Multivitamin [Theragran] 1 tab PO DAILYWM #30 tablet 03/05/21 03/30/21 Spironolactone [Aldactone] 25 mg PO DAILY #30 tablet 03/05/21 03/30/21 Thiamine [Vitamin B-1] 100 mg PO DAILY #30 tablet 03/05/21 03/30/21 lisinopriL [Zestril] 2.5 mg PO DAILY #30 tablet 03/05/21 03/30/21 DULoxetine [Cymbalta] 30 mg PO DAILY #30 cap 03/26/21 03/30/21 Gabapentin [Neurontin] 300 mg PO DAILY #14 cap 03/26/21 03/30/21 methocarbamoL [Methocarbamol] 750 mg PO BID PRN #14 tablet 03/26/21 03/30/21 Amox/Clav 875/125 [Augmentin 1 tablet PO Q12H 7 Days #14 tablet 04/12/21 875/125 Tab] - Allergies Allergies/Adverse Reactions: Allergies Allergy/AdvReac Type Severity Reaction Status Date / Time No Known Drug Allergies Allergy Verified 06/30/21 18:12 - Social History Does the pt smoke?: Yes Smoking Status: Current every day smoker Does the pt drink ETOH?: Yes ETOH Use: Liquor Does the pt have substance abuse?: Yes - Immunizations Immunizations are current?: Yes - POLST Patient has POLST: Yes POLST Status: DNR PD ED PE NORMAL - Vitals Vital signs reviewed: Yes - General General: Alert and oriented X 3, No acute distress, Well developed/nourished, Other (intoxicated) - HEENT HEENT: PERRL, Moist mucous membranes, Pharynx benign - Neck Neck: Supple, no meningeal sign - Cardiac Cardiac: RRR, Strong equal pulses - Respiratory Respiratory: No respiratory distress, Other (Mild rhonchi bilaterally) - Abdomen Abdomen: Soft, Non tender, Non distended - Back Back: No spinal TTP - Derm Derm: Warm and dry, No rash - Extremities Extremities: Other (Weeping edema in the right lower extremity left lower extremity has a healing wound to the medial aspect of the left lower leg.) - Neuro Neuro: Alert and oriented X 3, 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, No motor deficit, No sensory deficit, Normal speech Eye Opening: Spontaneous Motor: Obeys Commands Verbal: Oriented GCS Score: 15 - Psych Psych: Normal mood, Normal affect NIHSS - Time Time: 16:00 - Level of Consciousness Level of consciousness: (0) Alert, Keenly responsive LOC Questions: (0) Answers both Q's correct LOC Commands: (0) Performs both correctly - Gaze Best Gaze: (0) Normal - Visual Visual: (0) No loss - Facial Palsy Facial Palsy: (0) Normal, symmetrical movement - Motor Arms (both separate) Motor Arm (right): (0) No drift Motor Arm (left): (0) No drift - Motor Legs (both separate) Motor Leg (right): (0) No drift Motor Leg (left): (0) No drift - Limb Ataxia Limb Ataxia: (0) Absent - Sensory Sensory: (0) Normal - Best Language Best Language: (0) No aphasia - Dysarthria Dysarthria: (0) Normal - Extinction and Inattention (formally neg Extinction and inattention: (0) No abnormality - Total Score/Results Total Score/Result: 0 Results - Vitals Vitals: Vital Signs - 24 hr 06/30/21 06/30/21 06/30/21 18:12 18:31 19:00 Temperature 36 C L 36.5 C Heart Rate 96 85 85 Respiratory 18 18 20 Rate Blood Pressure 99/78 100/77 88/63 L O2 Saturation 96 92 88 L 06/30/21 06/30/21 06/30/21 19:16 19:20 20:01 Temperature Heart Rate 87 89 Respiratory 22 18 Rate Blood Pressure 104/83 H 104/74 O2 Saturation 94 96 96 06/30/21 06/30/21 06/30/21 20:45 21:10 22:29 Temperature Heart Rate 87 86 87 Respiratory 15 18 18 Rate Blood Pressure 107/86 H 122/89 H 87/69 L O2 Saturation 96 96 98 06/30/21 22:38 Temperature Heart Rate Respiratory Rate Blood Pressure 100/73 O2 Saturation Oxygen O2 Source Nasal cannula Oxygen Flow Rate 4 - Labs Labs: Laboratory Tests 06/30/21 06/30/21 06/30/21 18:06 18:06 18:06 WBC 11.7 H RBC 3.88 L Hgb 12.8 L Hct 40.0 L MCV 103.1 H MCH 33.0 H MCHC 32.0 RDW 16.7 H Plt Count 214 MPV 11.4 Neut # (Auto) 9.1 H Lymph # (Auto) 1.3 L [place] # (Auto) 1.2 H Eos # (Auto) 0.1 Baso # (Auto) 0.0 Absolute Nucleated RBC 0.00 Nucleated RBC % 0.0 PT 15.7 H INR 1.4 H APTT 28.6 Sodium Potassium Chloride Carbon Dioxide Anion Gap BUN Creatinine Estimated GFR (MDRD) Glucose Calcium Phosphorus Magnesium Total Bilirubin AST ALT Alkaline Phosphatase B-Natriuretic Peptide 4345 H Total Protein Albumin Globulin Albumin/Globulin Ratio Lipase Nasal Adenovirus (PCR) Nasal B. parapertussis DNA (PCR) Nasal Coronavir 229E PCR Nasal Coronavir HKU1 PCR Nasal Coronavir NL63 PCR Nasal Coronavir OC43 PCR Nasal Enterovir/Rhinovir PCR Nasal Influenza B PCR Nasal Influenza A PCR Nasal Parainfluen 1 PCR Nasal Parainfluen 2 PCR Nasal Parainfluen 3 PCR Nasal Parainfluen 4 PCR Nasal RSV (PCR) Nasal B.pertussis DNA PCR Nasal C.pneumoniae (PCR) [place] Human Metapneumo PCR Nasal M.pneumoniae (PCR) Nasal SARS-CoV-2 (PCR) Ethyl Alcohol 06/30/21 06/30/21 18:59 19:11 WBC RBC Hgb Hct MCV MCH MCHC RDW Plt Count MPV Neut # (Auto) Lymph # (Auto) [place] # (Auto) Eos # (Auto) Baso # (Auto) Absolute Nucleated RBC Nucleated RBC % PT INR APTT Sodium 129 L Potassium 4.6 Chloride 97 L Carbon Dioxide 20 L Anion Gap 12.0 BUN 42 H Creatinine 1.3 H Estimated GFR (MDRD) 56 L Glucose 92 Calcium 8.1 L Phosphorus 4.3 Magnesium 2.3 Total Bilirubin 1.2 H AST 271 H ALT 470 H Alkaline Phosphatase 263 H B-Natriuretic Peptide Total Protein 6.0 L Albumin 3.3 Globulin 2.7 Albumin/Globulin Ratio 1.2 Lipase 36 Nasal Adenovirus (PCR) NOT DETECTED Nasal B. parapertussis DNA (PCR) NOT DETECTED Nasal Coronavir 229E PCR NOT DETECTED Nasal Coronavir HKU1 PCR NOT DETECTED Nasal Coronavir NL63 PCR NOT DETECTED Nasal Coronavir OC43 PCR NOT DETECTED Nasal Enterovir/Rhinovir PCR NOT DETECTED Nasal Influenza B PCR NOT DETECTED Nasal Influenza A PCR NOT DETECTED Nasal Parainfluen 1 PCR NOT DETECTED Nasal Parainfluen 2 PCR NOT DETECTED Nasal Parainfluen 3 PCR NOT DETECTED Nasal Parainfluen 4 PCR NOT DETECTED Nasal RSV (PCR) NOT DETECTED Nasal B.pertussis DNA PCR NOT DETECTED Nasal C.pneumoniae (PCR) NOT DETECTED [place] Human Metapneumo PCR NOT DETECTED Nasal M.pneumoniae (PCR) NOT DETECTED Nasal SARS-CoV-2 (PCR) NOT DETECTED Ethyl Alcohol 145.7 - Rads (name of study) head CT Radiology: Final report received, EMP read contemporaneously, See rad report CT angio neck Radiology: Final report received, EMP read contemporaneously, See rad report CT angio head Radiology: Final report received, EMP read contemporaneously, See rad report cxr Radiology: Final report received, EMP read contemporaneously, See rad report PD MEDICAL DECISION MAKING - ED course Complexity details: reviewed results, re-evaluated patient, considered differential, d/w patient, d/w family ED course: Patient is without focal neurological deficit here. Does not appear consistent with stroke. He does have pitting edema in the bilateral lower extremities, weeping edema on the right. Has cardiomegaly with pulmonary congestion on chest x-ray. He was hypoxic down to the low 80s. Placed on oxygen. He was given IV Lasix as well. Will likely need to be in the hospital for further diuresis and care of his heart failure. There are no beds available here tonight, will contact the hospitalist in the morning for potential admission at that time. His last echocardiogram was January. Patient will be signed out to the oncoming emergency department physician for further care. This document was made in part using voice recognition software. While efforts are made to proofread this document, sound alike and grammatical errors may occur. IMPRESSION: Cardiomegaly and mild congestion. No definite focal infiltrate. No pleural effusion or pneumothorax. Departure - Departure Clinical Impression: Hypoxic Congestive heart failure Qualifiers: Heart failure type: unspecified Heart failure chronicity: acute on chronic Qualified Code(s): I50.9 - Heart failure, unspecified Edema Qualifiers: Edema type: unspecified Qualified Code(s): R60.9 - Edema, unspecified Leg wound, left Qualifiers: Encounter type: initial encounter Qualified Code(s): S81.802A - Unspecified open wound, left lower leg, initial encounter Condition: Stable
[2021-06-30 19:22] LABS: ALBUMIN 3.3 g/dL (3.2-5.5); ALBUMIN/GLOBULIN RATIO 1.2 (1.0-2.2); BILIRUBIN,TOTAL 1.2 mg/dL (0.2-1.0); CALCIUM 8.1 mg/dL (8.5-10.3); CREATININE 1.3 mg/dL (0.6-1.2); ETOH - ETHANOL 145.7 mg/dL; MAGNESIUM 2.3 mg/dL (1.7-2.8); PHOSPHORUS 4.3 mg/dL (2.5-4.6); POTASSIUM 4.6 mmol/L (3.5-5.0)
--- OUTSIDE RECORDS SUMMARY | 2021-06-30 19:28 | EXTERNAL MEDICAL SUMMARY RPT | Continuity of Care Document ---
:1960 Author Organization [facility] Address [address] [place] [address] Phone Allergies No information. Encounters No information. [...]
--- NOTE | 2021-06-30 19:37 | XRAY Report ---
PROCEDURE: Chest 1 View X-Ray INDICATIONS: hypoxia TECHNIQUE: One view of the chest was acquired. COMPARISON: 04/11/2021 FINDINGS: Surgical changes and devices: None. Lungs and pleura: No pleural effusions or pneumothorax. Mild pulmonary vascular congestion is seen. No definite focal infiltrate. Mediastinum: Mediastinal contours appear normal. Heart size is enlarged. Bones and chest wall: No suspicious bony lesions. Overlying soft tissues appear unremarkable. IMPRESSION: Cardiomegaly and mild congestion. No definite focal infiltrate. No pleural effusion or pneumothorax. Reviewed by: Maycol Thomas MD on 06/30/2021 7:35 PM PDT Approved by: Maycol Thomas MD on 06/30/2021 7:35 PM PDT Station ID: [id number]
[2021-06-30 20:15] LABS: B. PARAPERTUSSIS- RESP PCR PAN NOT DETECTED; B. PERTUSSIS- RESP PCR PANEL NOT DETECTED; C. PNEUMONIAE- RESP PCR PANEL NOT DETECTED; CORONAVIRUS 229E-RESP PCR NOT DETECTED; CORONAVIRUS HKU1-RESP PCR NOT DETECTED; CORONAVIRUS NL63-RESP PCR NOT DETECTED; CORONAVIRUS OC43-RESP PCR NOT DETECTED; HUMAN METAPNEUMOVIRUS NOT DETECTED; INFLUENZA A- RESP PCR PANEL NOT DETECTED; INFLUENZA B - RESP PCR PANEL NOT DETECTED; M. PNEUMONIAE- RESP PCR PANEL NOT DETECTED; PARAINFLUENZA VIRUS 1 NOT DETECTED; PARAINFLUENZA VIRUS 2 NOT DETECTED; PARAINFLUENZA VIRUS 3 NOT DETECTED; PARAINFLUENZA VIRUS 4 NOT DETECTED; RHINOVIRUS/ENTEROVIRUS NOT DETECTED; RSV- RESP PCR PANEL NOT DETECTED; SARS-CoV-2 -RESP PCR PANEL NOT DETECTED
[2021-06-30] MEDS ORDERED: FUROSEMIDE 20 MG/2 ML VIAL IVP STA (22:16)
[2021-07-01 01:46] LABS: BILIRUBIN,URINE NEGATIVE (NEGATIVE); GLUCOSE, URINE (UA) NEGATIVE (NEGATIVE); KETONES,URINE (UA) NEGATIVE (NEGATIVE); LEUKOCYTE ESTERASE, URINE NEGATIVE (NEGATIVE); NITRITE,URINE NEGATIVE (NEGATIVE); OCCULT BLOOD,URINE NEGATIVE (NEGATIVE); PROTEIN,URINE NEGATIVE (NEGATIVE); UROBILINOGEN,URINE 0.2 (NORMAL) E.U./dL (NORMAL)
[2021-07-01 01:47] LABS: CLARITY,URINE CLEAR (CLEAR)
[2021-07-01 06:55] VITALS: BP 109/79
== END 2021-07-01 06:54 | disposition home or self-care (01) ==
LOC: EDUNIT# → ED 18:02
DX: I11.0 Hypertensive heart disease with heart failure (principal); I50.9 Heart failure, unspecified; I48.91 Unspecified atrial fibrillation; I25.2 Old myocardial infarction; F17.200 Nicotine dependence, unspecified, uncomplicated; Z66 Do not resuscitate; R09.02 Hypoxemia; S81.802A Unspecified open wound, left lower leg, initial encounter; X58.XXXA Exposure to other specified factors, initial encounter; R60.9 Edema, unspecified; Z20.822 Contact with and (suspected) exposure to COVID-19
CPT/HCPCS: 36415; 70450; 70496; 70498; 71045; 80053; 80320; 81003; 83690; 83735; 83880; 84100; 85025; 85610; 85730; 87633; 96361; 96374; 99284; Q9967; 81001; 87086

== ENCOUNTER 2021-07-18 18:27 | Outpatient (CLI) | payer MEDICAID ==
--- NOTE | 2021-07-18 20:15 | Ultrasound Report ---
PROCEDURE: Duplex Ext Veins Right INDICATIONS: PERIPHERAL EDEMA TECHNIQUE: Real-time imaging, as well as color and pulse Doppler interrogation, were performed of the lower extr emity deep veins from the inguinal ligament to the popliteal fossa. COMPARISON: None. FINDINGS: The deep veins are normally compressible, and free of intraluminal thrombus. Color and pu lse Doppler demonstrate normal phasic intraluminal flow. There is normal augmentation response to di stal compression maneuver. Mild to moderate edema from calf to thigh. There is a popliteal fossa fluid collection measuring 6.2 x 1.2 x 6.4 cm. Calf veins were not compressible secondary to the extent of edema. IMPRESSION: 1. No DVT in the right lower extremity. 2. Subcutaneous edema limits calf vein evaluation. 3. Popliteal fossa cyst. Reviewed by: Robyn Morataya MD on 07/18/2021 8:14 PM PDT Approved by: Robyn Morataya MD on 07/18/2021 8:14 PM PDT Station ID: [id number]
== END 2021-07-18 18:28 | disposition home or self-care (01) ==
LOC: DI 18:27
PROVIDERS: ATTEND Registered Nurse
DX: R60.0 Localized edema (principal); M71.21 Synovial cyst of popliteal space [Baker], right knee

== ENCOUNTER 2021-07-19 12:44 | Outpatient (CLI) | payer MEDICAID ==
[2021-07-19 18:39] LABS: ALBUMIN 3.9 g/dL (3.2-5.5); ALBUMIN/GLOBULIN RATIO 1.1 (1.0-2.2); BILIRUBIN,TOTAL 1.1 mg/dL (0.2-1.0); CALCIUM 8.7 mg/dL (8.5-10.3); TOTAL PROTEIN 7.4 g/dL (6.7-8.2)
== END 2021-07-19 12:45 | disposition home or self-care (01) ==
LOC: LAB.N 12:44
PROVIDERS: ATTEND Registered Nurse
DX: R60.9 Edema, unspecified (principal); I10 Essential (primary) hypertension; S81.802S Unspecified open wound, left lower leg, sequela
CPT/HCPCS: 36415; 80053

== ENCOUNTER 2021-08-02 14:51 | Outpatient (CLI) | payer MEDICAID | END 2021-08-02 14:52 | disposition critical access hospital (66) | LOC: EMS 14:51 | DX: R06.02 Shortness of breath (principal); R06.01 Orthopnea; R05.9 Cough, unspecified; R60.0 Localized edema; F17.210 Nicotine dependence, cigarettes, uncomplicated | CPT/HCPCS: A0425; A0427; A0999 ==

== ENCOUNTER 2021-08-02 15:16 | Inpatient (IN) | payer MEDICAID ==
--- NOTE | 2021-08-02 15:40 | ED Physician Documentation ---
PD HPI DYSPNEA - Stated complaint Stated Complaint: EDEMA/SOA - Chief complaint Chief Complaint: Cardiac - History obtained from History obtained from: Patient, EMS - History of Present Illness Timing - onset: How many weeks ago (1 12 progressively worsening.) Timing - onset during: Light activity Timing - duration: Weeks (1 12) Timing - details: Gradual onset, Still present Inciting event(s): No: URI Worsened by: Exertion, Laying flat. No: Coughing Associated symptoms: Wheezing, Bilateral edema. No: Fever, Cough, Hemoptysis Similar symptoms before: Diagnosis (CHF end stage, COPD) Recently seen: Emergency Dept, Admitted (was in [facility] for wound care of leg infection along with treatment of CHF/edema/COPD.) Review of Systems Constitutional: denies: Fever Nose: denies: Rhinorrhea / runny nose, Congestion Throat: denies: Sore throat Cardiac: reports: Chest pain / pressure, Pedal edema. denies: Palpitations, Calf pain (but has nelson pain at area of chroic leg ulcer that had recent infection. Also this week with right leg infection.) Respiratory: reports: Dyspnea, Cough, Wheezing GI: denies: Abdominal Pain, Vomiting, Diarrhea, Bloody / black stool : reports: Frequency (and describes less urine output.). denies: Dysuria Skin: denies: Rash Musculoskeletal: denies: Neck pain, Back pain Neurologic: reports: Generalized weakness. 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: None : Benign prostate hypertrophy, Nocturia, Frequency HEENT: Chronic vision loss, Chronic sinusitis Psych: Depression, Anxiety Musculoskeletal: Chronic back pain Derm: None - Past Surgical History Past Surgical History: Yes HEENT: Tonsil/Adenoidectomy - Present Medications Home Medications: Ambulatory Orders Medication Instructions Recorded Confirmed Digoxin [Lanoxin] 125 mcg PO DAILY #30 tablet 03/05/21 08/03/21 Multivitamin [Theragran] 1 tab PO DAILYWM #30 tablet 03/05/21 08/03/21 lisinopriL [Zestril] 2.5 mg PO DAILY #30 tablet 03/05/21 08/03/21 Canagliflozin [Invokana] 100 mg PO DAILY 08/03/21 08/03/21 Furosemide [Lasix] 60 mg PO DAILY 08/03/21 08/03/21 Gabapentin [Neurontin] 300 mg PO 0800,1400 08/03/21 08/03/21 Gabapentin [Neurontin] 600 mg PO QPM 08/03/21 08/03/21 Metoprolol Succinate [Toprol Xl] 50 mg PO DAILY 08/03/21 08/03/21 Spironolactone [Aldactone] 12.5 mg PO DAILY 08/03/21 08/03/21 - Allergies Allergies/Adverse Reactions: Allergies Allergy/AdvReac Type Severity Reaction Status Date / Time No Known Drug Allergies Allergy Verified 08/02/21 15:28 - Living Situation Living Situation: reports: Alone Living Arrangement: reports: Homeless - Social History Does the pt smoke?: Yes Smoking Status: Current every day smoker Does the pt drink ETOH?: Yes Does the pt have substance abuse?: Yes - Family History Family history: reports: CAD - Immunizations Immunizations are current?: Yes - POLST Patient has POLST: Yes POLST Status: DNR PD ED PE NORMAL - Vitals Vital signs reviewed: Yes - General General: Alert and oriented X 3, Well developed/nourished, Other (appears la bored breathing with wheezing and prolonged exp phase as well as continual dyspnea. ) - HEENT HEENT: Atraumatic. No: Dentition benign - Neck Neck: Supple, no meningeal sign, No adenopathy, Other (JVD noted at 60 degrees) - Cardiac Cardiac: No: RRR (irregular but only mild tachycardic) - Respiratory Respiratory: No respiratory distress. No: Clear bilaterally (wheezing diffusely and crackles lower third both sides. ) - Abdomen Abdomen: Soft, Non tender - Derm Derm: Normal color, Warm and dry - Extremities Extremities: No tenderness to palpate, Normal ROM s pain, Other (2+ edema in both legs up to thighs, with scrotal edema as well (that he says is new for him). No calf tendereness. Has anterior left nelson ulcer with yellow base but no discharge. To fatty tissue. Right nelson with weeping bliseters, mild white coloring on right mid nelson.) - Neuro Neuro: Alert and oriented X 3, No motor deficit, Normal speech Results - Vitals Vitals: Vital Signs - 24 hr 08/02/21 08/02/21 08/02/21 18:00 18:30 19:00 Heart Rate 113 H 106 H 102 H Respiratory 20 21 16 Rate Blood Pressure 110/88 H 117/85 H 106/81 H O2 Saturation 96 96 98 Oxygen O2 Source Room air - Labs Labs: Laboratory Tests 08/02/21 08/02/21 08/02/21 16:19 16:19 16:19 WBC 11.0 H RBC 4.17 L Hgb 13.3 L Hct 40.1 L MCV 96.2 H MCH 31.9 H MCHC 33.2 RDW 18.2 H Plt Count 189 MPV 11.0 Neut # (Auto) 8.7 H Lymph # (Auto) 1.2 L Gu[place]upe # (Auto) 0.9 Eos # (Auto) 0.1 Baso # (Auto) 0.1 Absolute Nucleated RBC 0.00 Nucleated RBC % 0.0 PT INR Sodium 136 Potassium 3.9 Chloride 98 L Carbon Dioxide 28 Anion Gap 10.0 BUN 32 H Creatinine 1.3 H Estimated GFR (MDRD) 56 L Glucose 95 Calcium 8.9 Magnesium 1.5 L Total Bilirubin 1.1 H AST 21 ALT 12 Alkaline Phosphatase 60 Troponin I High Sens 119.7 H* B-Natriuretic Peptide Total Protein 6.4 L Albumin 3.6 Globulin 2.8 Albumin/Globulin Ratio 1.3 Lipase 47 Last Dose Date Last Dose Time Digoxin SARS-CoV-2 (PCR) 08/02/21 08/02/21 08/02/21 16:19 16:19 16:57 WBC RBC Hgb Hct MCV MCH MCHC RDW Plt Count MPV Neut # (Auto) Lymph # (Auto) [place]upe # (Auto) Eos # (Auto) Baso # (Auto) Absolute Nucleated RBC Nucleated RBC % PT 13.2 H INR 1.2 Sodium Potassium Chloride Carbon Dioxide Anion Gap BUN Creatinine Estimated GFR (MDRD) Glucose Calcium Magnesium Total Bilirubin AST ALT Alkaline Phosphatase Troponin I High Sens B-Natriuretic Peptide 5453.00 H Total Protein Albumin Globulin Albumin/Globulin Ratio Lipase Last Dose Date Last Dose Time Digoxin SARS-CoV-2 (PCR) NOT DETECTED 08/02/21 08/02/21 18:59 18:59 WBC RBC Hgb Hct MCV MCH MCHC RDW Plt Count MPV Neut # (Auto) Lymph # (Auto) [place]upe # (Auto) Eos # (Auto) Baso # (Auto) Absolute Nucleated RBC Nucleated RBC % PT INR Sodium Potassium Chloride Carbon Dioxide Anion Gap BUN Creatinine Estimated GFR (MDRD) Glucose Calcium Magnesium Total Bilirubin AST ALT Alkaline Phosphatase Troponin I High Sens 124.2 H* B-Natriuretic Peptide Total Protein Albumin Globulin Albumin/Globulin Ratio Lipase Last Dose Date UNK Last Dose Time UNK Digoxin 0.6 SARS-CoV-2 (PCR) - Rads (name of study) chest xray Radiology: Final report received, EMP read contemporaneously (vascular congestion and cardiomegaly), See rad report PD MEDICAL DECISION MAKING - ED course Complexity details: reviewed results, re-evaluated patient (less wheezing and unlabored breathing now. Sats adequate. Still mild tachycardic. BP soft mild hypotension. ), considered differential, d/w patient, d/w warehouse consultant (patient with CHF exac. He is DNR. Is not in extremis. Consider admitting here. ) Departure - Departure Disposition: [facility] DC/Xfer Clinical Impression: Dyspnea, Acute exacerbation of CHF (congestive heart failure), Atrial flutter, chronic, End stage congestive heart failure Chronic ulcer of leg Qualifiers: Laterality: left Condition: Stable Discharge Date/Time: 08/02/21 20:05
[2021-08-02] MEDS ORDERED: FUROSEMIDE 40 MG/4 ML VIAL IVP STA ×2 (16:11→18:21)
[2021-08-02] MEDS ORDERED: IPRATROPIUM/ALBUTEROL 3 ML NEB INH STA (16:15)
[2021-08-02] MEDS ORDERED: HYDROmorphone 1 MG/ML CARPUJECT IVP STA (16:16)
[2021-08-02 16:25] LABS: BASOPHILS # (AUTO) 0.1 10^3/uL (0.0-0.1); BASOPHILS % (AUTO) 0.5 %; EOSINOPHILS # (AUTO) 0.1 10^3/uL (0.0-0.7); EOSINOPHILS % (AUTO) 0.5 %; HCT - HEMATOCRIT 40.1 % (42.0-52.0); HGB - HEMOGLOBIN 13.3 g/dL (14.0-18.0); LYMPHOCYTES # (AUTO) 1.2 10^3/uL (1.5-3.5); LYMPHOCYTES % (AUTO) 11.3 %; MEAN CORPUSCULAR HEMOGLOBIN 31.9 pg (27.0-31.0); MEAN CORPUSCULAR HGB CONC 33.2 g/dL (32.0-36.0); MEAN CORPUSCULAR VOLUME 96.2 fL (80.0-94.0); MONOCYTES # (AUTO) 0.9 10^3/uL (0.0-1.0); MONOCYTES % (AUTO) 7.7 %; NEUTROPHILS # (AUTO) 8.7 10^3/uL (1.5-6.6); NEUTROPHILS % (AUTO) 79.5 %; PLT - PLATELET COUNT 189 10^3/uL (130-450); RED BLOOD COUNT 4.17 10^6/uL (4.70-6.10); RED CELL DISTRIBUTION WIDTH 18.2 % (12.0-15.0)
[2021-08-02 16:42] LABS: ALBUMIN 3.6 g/dL (3.2-5.5); ALBUMIN/GLOBULIN RATIO 1.3 (1.0-2.2); BILIRUBIN,TOTAL 1.1 mg/dL (0.2-1.0); CALCIUM 8.9 mg/dL (8.5-10.3); CREATININE 1.3 mg/dL (0.6-1.2); MAGNESIUM 1.5 mg/dL (1.7-2.8); POTASSIUM 3.9 mmol/L (3.5-5.0); TOTAL PROTEIN 6.4 g/dL (6.7-8.2)
[2021-08-02] MEDS ORDERED: PROCHLORPERAZINE 10 MG/2 ML VIAL IVP PRN (18:31)
[2021-08-02] MEDS ORDERED: ONDANSETRON 4 MG/2 ML VIAL IVP PRN (18:31)
[2021-08-02] MEDS ORDERED: IPRATROPIUM 0.2 MG/ML NEB INH PRN (18:31)
[2021-08-02] MEDS ORDERED: DIGOXIN 500 MCG/2 ML AMP IVP PRN (18:47)
--- NOTE | 2021-08-02 19:20 | HISTORY & PHYSICAL EXAMINATION ---
Chief Complaint - Chief Complaint Chief Complaint: Shortness of breath History of Present Illness - Admitted From Admitted From:: ER - History Obtained From Records Reviewed: [facility] History obtained from: Patient, EMR - History of Present Illness HPI Comment/Other: This is a 61-year-old male with a past medical history significant for chronic systolic heart failure with an ejection fraction of 15%, cor pulmonale, atrial flutter, alcoholism, peripheral vascular disease who presents today complaining of worsening shortness of breath and lower extremity edema. He states for the past couple weeks his lower extremity edema has progressed and now over the past week he became more short of breath. He went to the walk-in clinic today for follow-up and he was referred to the emergency department given concern for heart failure. The patient states he always feels short of breath due to his heart failure but his symptoms are now worse. His legs are much more edematous than usual. He now has orthopnea and a nonproductive cough. He states he does get occasional chest pain but this is more associated with anxiety he gets when he begins to feel short of breath. He currently denies any chest pain. He reports no fevers or chills. He does occasionally feel dizzy and lightheaded. He does take Lasix and he states the dose was increased to 60 mg about 1 week ago but he has not found much benefit with the increased dose. He does take ot her heart failure therapy including lisinopril, spironolactone, metoprolol. He states he is not on anticoagulation and he is not sure why. He was on Coumadin in the past. He also reports being hospitalized at [facility] in [facility] in April for about 6 weeks due to a left lower extremity wound that required surgical debridement and wound VAC. He states he is currently not on any antibiotics. There has been occasional drainage from the wound but it is not foul-smelling and the wound has not progressed in size. He also reports having an ultrasound of his right leg about a week ago due to worsening right lower extremity edema compared to the left. There was no evidence of DVT to his knowledge. In the emergency department, he was not hypoxic but noted to be quite dyspneic and with significant lower extremity edema. He was given 80 mg of Lasix IV. Given the concern for acute on chronic heart failure, medicine was consulted for admission. We discussed goals of care and the patient confirms he is a DNR. 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 [facility] currently lives [facility]. He consumes nearly 1/5 of liquor each day but has not drank for the past week as he has not felt well due to this dyspnea. He has been drinking alcohol for many decades now. He denies any drug use. He continues to smoke a half pack per day and has been smoking for 40+ years. - Substance History Use: Uses substance without health or social issues: Tobacco, Alcohol - POLST Patient has POLST: Yes POLST Status: DNR Meds/Allgy - Home Medications Home Medications: Ambulatory Orders Medication Instructions Recorded Confirmed Citalopram [CeleXA] 10 mg ORAL DAILY 09/15/20 03/30/21 Albuterol Sulfate [Proair Hfa 1 puffs INH Q4H PRN #1 gm 03/05/21 03/30/21 Inhaler] Digoxin [Lanoxin] 125 mcg PO DAILY #30 tablet 03/05/21 03/30/21 Furosemide [Lasix] 40 mg PO DAILY #30 tablet 03/05/21 03/30/21 Gabapentin [Neurontin] 300 mg PO 0800,1400 PRN #30 cap 03/05/21 03/30/21 Gabapentin [Neurontin] 600 mg PO QPM #60 cap 03/05/21 03/30/21 Metoprolol Succinate [Toprol Xl] 25 mg PO DAILY #30 tablet 03/05/21 03/30/21 Multivitamin [Theragran] 1 tab PO DAILYWM #30 tablet 03/05/21 03/30/21 Spironolactone [Aldactone] 25 mg PO DAILY #30 tablet 03/05/21 03/30/21 Thiamine [Vitamin B-1] 100 mg PO DAILY #30 tablet 03/05/21 03/30/21 lisinopriL [Zestril] 2.5 mg PO DAILY #30 tablet 03/05/21 03/30/21 DULoxetine [Cymbalta] 30 mg PO DAILY #30 cap 03/26/21 03/30/21 Gabapentin [Neurontin] 300 mg PO DAILY #14 cap 03/26/21 03/30/21 methocarbamoL [Methocarbamol] 750 mg PO BID PRN #14 tablet 03/26/21 03/30/21 Amox/Clav 875/125 [Augmentin 1 tablet PO Q12H 7 Days #14 tablet 04/12/21 875/125 Tab] Furosemide [Lasix] 20 mg PO DAILY #14 tablet 07/01/21 - Allergies Allergies/Adverse Reactions: Allergies Allergy/AdvReac Type Severity Reaction Status Date / Time No Known Drug Allergies Allergy Verified 08/02/21 15:28 Review of Systems - Constitutional Constitutional: denies: Fever, Chills - Ears, Nose & Throat Ears, Nose & Throat: denies: Nasal discharge, Nasal congestion - Cardiovascular Cariovascular: reports: Edema, Lightheadedness, Exertional dyspnea, Decr. exercise tolerance - Respiratory Respiratory: reports: Cough, Orthopnea, SOB at rest, SOB with exertion. denies: Sputum production - Gastrointestinal Gastrointestinal: denies: Abdominal pain, Diarrhea, Nausea, Vomiting - Genitourinary Genitourinary: denies: Dysuria, Frequency, Hematuria - Musculoskeletal Musculoskeletal: denies: Limited range of motion - Integumentary Integumentary: reports: Lesions, Pigment changes - Neurological Neurological: reports: Dizziness, Numbness. denies: General weakness, Focal weakness - Hematologic/Lymphatic Hematologic/Lymphatic: denies: Anemia, Bleeding tendencies - All Other Systems All Other Systems: reports: Reviewed and negative Prior Level of Functionality: He is independent with his ADL's. Exam - Vital Signs Reviewed Vital Signs: Yes Vital Signs: Vital Signs x48h Temp Pulse Resp BP Pulse Ox 08/02/21 19:00 102 H 16 106/81 H 98 08/02/21 18:30 106 H 21 117/85 H 96 08/02/21 18:00 113 H 20 110/88 H 96 08/02/21 17:30 103 H 13 105/86 H 95 08/02/21 17:00 94 22 100/84 H 95 08/02/21 16:58 98 14 96/85 H 95 08/02/21 16:40 94 14 08/02/21 16:26 87 13 98/57 L 100 08/02/21 16:08 114 H 24 99/60 98 08/02/21 15:28 37.2 C 110 H 19 99/83 H 93 - Physical Exam General Appearance: positive: No acute distress, Alert Eyes Bilateral: positive: Normal inspection, Conjunctivae nml ENT: positive: ENT inspection nml Neck: positive: Nml inspection Respiratory: positive: No respiratory distress, Other (Breath sounds diminished bilaterally.) Cardiovascular: positive: Regular rate & rhythm, Tachycardia. negative: Extrasystoles, Bradycardia, Systolic murmur Abdomen: positive: Non-tender, No distention. negative: Tenderness Skin: positive: Warm, Dry, Other (There is a 5 x 3 cm ulceration over the medial aspect of the left lower extremity. No purulent drainage. No surrounding erythema.) Extremities: positive: Pedal edema (He has +3 pitting edema in right lower extremity and +2 left lower extremity. Chronic venous stasis changes noted over the bilateral lower extremities with hyperpigmentation.) Neurologic/Psychiatric: negative: Disoriented to person, Disoriented to place Conclusion/Plan - Problem List (1) Acute on chronic systolic and diastolic heart failure, NYHA class 4 Conclusion/Plan: He is quite clearly in heart failure given his worsening dyspnea, orthopnea, and lower extremity edema. His BNP is the highest it has been in 6 months at over 5000. We will admit him for further management. We will start him on Lasix 40 mg IV twice daily. We will look to discharge him on Bumex given its better oral bioavailability compared to furosemide. We will resume lisinopril and spironolactone in the morning as long as his blood pressure can tolerate it. He will also be continued on metoprolol given the atrial flutter. We will look to repeat an echocardiogram to assess his LV function as it was previously around 15%. Continue with low-sodium diet. Strict I's and O's. Fluid restriction of 1500 mL. (2) Atrial flutter, chronic Conclusion/Plan: His rates is currently in the 100s. We will continue his home digoxin and metoprolol. We will check a digoxin level. We will also start him on Eliquis as he should be anticoagulated. We will monitor on telemetry. (3) ESTEVAN (acute kidney injury) Conclusion/Plan: He does have mild acute kidney injury given his creatinine is 1.3 and baseline is around 1.0. Suspect this is likely cardiorenal syndrome due to the heart failure. This should improve as he is diuresed. Continue to monitor his renal function and urine output closely. We will resume lisinopril in the morning but if his creatinine continues to climb then we will hold this. (4) Elevated troponin Conclusion/Plan: His troponin is constantly elevated and suspect is likely demand ischemia due to the heart failure. I have requested records from [place] to see if he had an ischemic work-up as his troponin was also elevated during that admission. We will manage his heart failure as mentioned above. We will continue to trend troponin although so far it appears to be flat. (5) Chronic ulcer of leg Conclusion/Plan: This is likely secondary to his peripheral vascular disease. He had debridement given concern for infection at [place] a couple of months ago. Currently there appears to be no evidence of infection. We have consulted wound care as he will need outpatient follow-up. Qualifiers: Laterality: left (6) Peripheral vascular disease Conclusion/Plan: He has known peripheral vascular disease and the plan is to medically manage this. I have requested records from [place] to see if there was any intervention done although the patient denies this. We will start him on Eliquis. He should be on a statin but it appears may have been held in the past due to elevated LFTs. We can consider starting him on a statin given his LFTs are now within normal limits. (7) COPD (chronic obstructive pulmonary disease) Conclusion/Plan: Does not appear to be in exacerbation. We will start him on a nicotine patch given his tobacco use. DuoNeb as needed. (8) Alcoholism Conclusion/Plan: He continues to drink alcohol but denies consumption for the past week due to his dyspnea. We will continue him on thiamine and multivitamin. I would suspect if he were to have symptoms of withdrawal he would have already gone through this given it has been 1 week since his last drink but nonetheless, we will monitor him for evidence of withdrawal. - Lab Results Lab results reviewed: Yes Gonzalo Bones: 08/02/21 16:19 08/02/21 16:19 - Diagnostic Imaging Results Diagnostic Imaging Results: positive: Read independently Diagnostic Imaging Results Comments: Chest x-ray appears to reveal cardiomegaly with mild pulmonary vascular congestion. It appears similar or even slightly improved compared to prior imaging. - EKG Results EKG Interpreted Independently: Yes EKG Comparison: Unchanged from prior EKG EKG Findings: EKG shows atrial flutter with rates in the 110s. Nonspecific ST segment changes. Core Measures - Anticipated LOS I expect patient to be DC'd or transferred within 96 hours.: Yes - Issues Hospital Issues and Management Plan: 61-year-old male with heart failure with reduced ejection fraction presents with worsening dyspnea and lower extremity edema. Concern is for acute on chronic heart failure so he will be admitted for further management including diuresis. - DVT/VTE - Prophylaxis VTE/DVT Device ordered at admit?: No VTE/DVT Prophylaxis med ordered at admit?: Yes
[2021-08-02 19:48] LABS: DIGOXIN 0.6 ng/mL
[2021-08-02 19:52] LABS: INR 1.2 (0.8-1.2); PT - PROTHROMBIN TIME 13.2 secs (9.9-12.6)
[2021-08-02] MEDS ORDERED: GABAPENTIN 300 MG CAPSULE PO SCH (21:00)
[2021-08-02] MEDS: APIXABAN 5 MG TABLET PO SCH (21:51)
[2021-08-02] MEDS: SODIUM CHLORIDE FLUSH 0.9% 10 ML SYRINGE IVP SCH (23:47)
[2021-08-03] MEDS: HYDROcod/ACETAM 5/325 MG TABLET PO PRN ×3 (03:39→20:26)
[2021-08-03 05:11] LABS: BASOPHILS # (AUTO) 0.1 10^3/uL (0.0-0.1); BASOPHILS % (AUTO) 0.5 %; EOSINOPHILS # (AUTO) 0.1 10^3/uL (0.0-0.7); EOSINOPHILS % (AUTO) 1.1 %; HCT - HEMATOCRIT 40.6 % (42.0-52.0); HGB - HEMOGLOBIN 13.3 g/dL (14.0-18.0); LYMPHOCYTES % (AUTO) 9.6 %; MEAN CORPUSCULAR HGB CONC 32.8 g/dL (32.0-36.0); MEAN CORPUSCULAR VOLUME 97.8 fL (80.0-94.0); MEAN PLATELET VOLUME 11.2 fL (7.4-11.4); MONOCYTES # (AUTO) 0.7 10^3/uL (0.0-1.0); MONOCYTES % (AUTO) 6.9 %; NEUTROPHILS # (AUTO) 8.5 10^3/uL (1.5-6.6); NEUTROPHILS % (AUTO) 81.5 %; PLT - PLATELET COUNT 171 10^3/uL (130-450); RED BLOOD COUNT 4.15 10^6/uL (4.70-6.10); RED CELL DISTRIBUTION WIDTH 18.4 % (12.0-15.0); WHITE BLOOD COUNT 10.5 x10^3/uL (4.8-10.8)
[2021-08-03 05:20] LABS: ALBUMIN 3.6 g/dL (3.2-5.5); ALBUMIN/GLOBULIN RATIO 1.3 (1.0-2.2); BILIRUBIN,TOTAL 1.1 mg/dL (0.2-1.0); CALCIUM 8.9 mg/dL (8.5-10.3); CREATININE 1.4 mg/dL (0.6-1.2); MAGNESIUM 1.6 mg/dL (1.7-2.8); POTASSIUM 3.7 mmol/L (3.5-5.0); TOTAL PROTEIN 6.4 g/dL (6.7-8.2)
[2021-08-03] MEDS: ACETAMINOPHEN 325 MG TABLET PO PRN (06:03)
[2021-08-03] MEDS: PANTOPRAZOLE 40 MG TABLET PO SCH (06:03)
[2021-08-03] MEDS ORDERED: GABAPENTIN 300 MG CAPSULE PO SCH (06:38)
[2021-08-03] MEDS ORDERED: MAGNESIUM OXIDE 400 MG TABLET PO SCH ×3 (08:00→17:00)
[2021-08-03] MEDS ORDERED: DULoxetine 30 MG CAPSULE PO SCH (09:00)
[2021-08-03] MEDS ORDERED: lisinopriL 5 MG TABLET PO SCH (09:00)
[2021-08-03] MEDS: THIAMINE 100 MG TABLET PO SCH (09:16)
[2021-08-03] MEDS: MULTIVITAMIN TABLET PO SCH (09:17)
[2021-08-03] MEDS: FUROSEMIDE 40 MG/4 ML VIAL IVP SCH ×2 (09:17→20:26)
[2021-08-03] MEDS: APIXABAN 5 MG TABLET PO SCH ×2 (09:17→20:27)
[2021-08-03] MEDS: SODIUM CHLORIDE FLUSH 0.9% 10 ML SYRINGE IVP SCH ×2 (09:18→15:57)
[2021-08-03] MEDS: NICOTINE 14 MG PATCH TOP SCH (09:18)
--- NOTE | 2021-08-03 09:20 | PHARMACY PROGRESS NOTE ---
- Best Possible Medication History Admit Date and Time: 08/02/211914 Processed by: Pharmacy Medication History completed: Yes Patient Interview: Completed Secondary Source(s): Physician records, Pharmacy records, Insurance records As the person ultimately responsible for medication therapy, providers are able to order a medication from an existing home medication list in [facility] via the "Reconcile Routine" prior to Confirmation of that medication by instructional support specialist. Such practice is discouraged except when the physician, in their clinical judgment, deems that a medical need exists for a medication without regard to previous use.
[2021-08-03] MEDS: SPIRONOLACTONE 25 MG TABLET PO SCH (09:56)
[2021-08-03] MEDS: METOPROLOL SUCCINATE 25 MG TABLET PO SCH ×2 (09:56→10:31)
[2021-08-03] MEDS: DIGOXIN 125 MCG TABLET PO SCH ×2 (09:56→10:31)
[2021-08-03] MEDS: HYDROmorphone 0.5 MG/0.5 ML SYRINGE IVP PRN (10:32)
--- NOTE | 2021-08-03 11:32 | PROVIDER PROGRESS NOTE ---
Progress Note This is a 61-year-old male with a past medical history significant for chronic systolic heart failure with an ejection fraction of 15%, cor pulmonale, atrial flutter, alcoholism, peripheral vascular disease who presents today complaining of worsening shortness of breath and lower extremity edema. He states for the past couple weeks his lower extremity edema has progressed and now over the past week he became more short of breath. He went to the walk-in clinic today for follow-up and he was referred to the emergency department given concern for heart failure. The patient states he always feels short of breath due to his heart failure but his symptoms are now worse. His legs are much more edematous than usual. He now has orthopnea and a nonproductive cough. He states he does get occasional chest pain but this is more associated with anxiety he gets when he begins to feel short of breath. He currently denies any chest pain. He reports no fevers or chills. He does occasionally feel dizzy and lightheaded. He does take Lasix and he states the dose was increased to 60 mg about 1 week ago but he has not found much benefit with the increased dose. He does take other heart failure therapy including lisinopril, spironolactone, metoprolol. He states he is not on anticoagulation and he is not sure why. He was on Coumadin in the past. He also reports being hospitalized at [facility] in [facility] in April for about 6 weeks due to a left lower extremity wound that required surgical debridement and wound VAC. He states he is currently not on any antibiotics. There has been occasional drainage from the wound but it is not foul-smelling and the wound has not progressed in size. He also reports having an ultrasound of his right leg about a week ago due to worsening right lower extremity edema compared to the left. There was no evidence of DVT to his knowledge. In the emergency department, he was not hypoxic but noted to be quite dyspneic and with significant lower extremity edema. He was given 80 mg of Lasix IV. Given the concern for acute on chronic heart failure, medicine was consulted for admission. We discussed goals of care and the patient confirms he is a DNR. Patient seen at bedside with dyspnea on exertion, has chronic bilateral lower extremity edema with chronic nonhealing ulcers weepiness more to the right lower extremity versus the left which has a cratered like ulcerative lesion which is nontender and does not appear to be infected acutely. Patient did have a ultrasound the right lower extremity 10 days ago which showed negative DVT. Patient's systolic blood pressures range between the 80s to the 100s and is on guideline directed medical therapy. Does have underlying chronic kidney disease. Patient states that he sleeps at a homeless long term and warming long term and social security specialist aware. Otherwise he is sitting up at bedside without fevers, nausea, emesis, chest pain, shortness of breath, GI or symptoms, MP rash or joint tenderness. On examination: Vital signs are stable, patient is afebrile, mildly tachypneic 20-22, 101/68 does drop to 88/74 on BPs, 95% O2 saturation on room air and heart rate ranging between 90-130 bpm A. fib and a flutter HEENT: no buccal lesions, dry MMM. Neck: +mild JVD. Trachea midline, no thyromegaly, no bruits CV/lungs: Irregularly irregular, tachycardia, S1-S2 within normal limits, no murmurs, gallops or clicks. Decreased breath sounds bibasilarly with no expiratory rhonchi rales or wheezing Abdomen: Soft, nontender, nondistended, no HSM Extremities/skin: Dusky cold and blue discoloration of bilateral lower extremities with decreased 0-1+ dorsalis pedis with bilateral lower extremity 2+ pitting edema along with chronic ulcerative wounds to the left medial posterior and right anterior weeping in nature. Neuro: Grossly intact. Laboratory Last Values WBC 10.5 x10^3/uL (4.8-10.8) 08/03/21 04:38 RBC 4.15 10^6/uL (4.70-6.10) L 08/03/21 04:38 Hgb 13.3 g/dL (14.0-18.0) L 08/03/21 04:38 Hct 40.6 % (42.0-52.0) L 08/03/21 04:38 MCV 97.8 fL (80.0-94.0) H 08/03/21 04:38 MCH 32.0 pg (27.0-31.0) H 08/03/21 04:38 MCHC 32.8 g/dL (32.0-36.0) 08/03/21 04:38 RDW 18.4 % (12.0-15.0) H 08/03/21 04:38 Plt Count 171 10^3/uL (130-450) 08/03/21 04:38 MPV 11.2 fL (7.4-11.4) 08/03/21 04:38 Neut # (Auto) 8.5 10^3/uL (1.5-6.6) H 08/03/21 04:38 Lymph # (Auto) 1.0 10^3/uL (1.5-3.5) L 08/03/21 04:38 Hughes # (Auto) 0.7 10^3/uL (0.0-1.0) 08/03/21 04:38 Eos # (Auto) 0.1 10^3/uL (0.0-0.7) 08/03/21 04:38 Baso # (Auto) 0.1 10^3/uL (0.0-0.1) 08/03/21 04:38 Absolute Nucleated RBC 0.00 x10^3/uL 08/03/21 04:38 Nucleated RBC % 0.0 /100WBC 08/03/21 04:38 PT 13.2 secs (9.9-12.6) H 08/02/21 16:19 INR 1.2 (0.8-1.2) 08/02/21 16:19 Sodium 138 mmol/L (135-145) 08/03/21 04:48 Potassium 3.7 mmol/L (3.5-5.0) 08/03/21 04:48 Chloride 96 mmol/L (101-111) L 08/03/21 04:48 Carbon Dioxide 30 mmol/L (21-32) 08/03/21 04:48 Anion Gap 12.0 (6-13) 08/03/21 04:48 BUN 31 mg/dL (6-20) H 08/03/21 04:48 Creatinine 1.4 mg/dL (0.6-1.2) H 08/03/21 04:48 Estimated GFR (MDRD) 52 (>89) L 08/03/21 04:48 Glucose 119 mg/dL (70-100) H 08/03/21 04:48 Calcium 8.9 mg/dL (8.5-10.3) 08/03/21 04:48 Magnesium 1.6 mg/dL (1.7-2.8) L 08/03/21 04:48 Total Bilirubin 1.1 mg/dL (0.2-1.0) H 08/03/21 04:48 AST 18 IU/L (10-42) 08/03/21 04:48 ALT 13 IU/L (10-60) 08/03/21 04:48 Alkaline Phosphatase 54 IU/L (42-121) 08/03/21 04:48 Troponin I High Sens 105.9 ng/L (2.3-19.7) H* 08/03/21 04:48 B-Natriuretic Peptide 5453.00 pg/mL (5-100) H 08/02/21 16:19 Total Protein 6.4 g/dL (6.7-8.2) L 08/03/21 04:48 Albumin 3.6 g/dL (3.2-5.5) 08/03/21 04:48 Globulin 2.8 g/dL (2.1-4.2) 08/03/21 04:48 Albumin/Globulin Ratio 1.3 (1.0-2.2) 08/03/21 04:48 Lipase 47 U/L (22-51) 08/02/21 16:19 Last Dose Date UNK 08/02/21 18:59 Last Dose Time UNK 08/02/21 18:59 Digoxin 0.6 ng/mL 08/02/21 18:59 SARS-CoV-2 (PCR) NOT DETECTED 08/02/21 16:57 Intake & Output 07/31/21 08/01/21 08/02/21 08/03/21 23:59 23:59 23:59 23:59 Intake Total 240 300 Output Total 1375 500 Balance -1135 -200 Imaging studies: Reviewed Medical records from [facility] reviewed. Assessment/plan: (1) Acute on chronic systolic and diastolic heart failure, NYHA class 4 Conclusion/Plan: Patient with ongoing worsening dyspnea, orthopnea and bilateral lower extremity edema with BNP worsening but has been chronically elevated over the course of 6 months. He is currently receiving Lasix 40 mg twice daily. Plan is to discharge him on Bumex or adding Zaroxolyn for adjuvant therapy on his chronic edema. We will continue with guideline directed medical therapy and adding li sinopril and Aldactone if BP tolerates. We will continue with metoprolol as well as Eliquis given his variable RVR A. fib/a flutter. Echocardiogram to repeat given his LV function at 15%. Continue strict I's and O's, daily weights and low-sodium cardiac diet with fluid restriction of [id number] (2) Atrial flutter, chronic Conclusion/Plan: His rates is currently in the 100-130s. Has hypomagnesemia and will be correcting as needed to maintain above 2.0.We will continue his home digoxin and metoprolol. We will check a digoxin level. We will also start him on Eliquis as he should be anticoagulated. We will monitor on telemetry. (3) ESTEVAN (acute kidney injury) Conclusion/Plan: He does have mild acute kidney injury given his creatinine is 1.3 and baseline is around 1.0. His creatinine is 1.4, he is receiving IV Lasix at this time and will be on Aldactone and lisinopril. Although I suspect this is likely car diorenal syndrome due to the heart failure. This should improve as he is diuresed. Continue to monitor his renal function and urine output closely. We will hold lisinopril given his increased creatinine and will replace electrolyte disturbances with low magnesium. May consider renal work-up, renal ultrasound. (4) Elevated troponin Conclusion/Plan: His troponin is constantly elevated and suspect is likely demand ischemia due to the heart failure. I have requested records from [facility] to see if he had an ischemic work-up as his troponin was also elevated during that admission. We will manage his heart failure as mentioned above. We will continue to trend troponin although so far it appears to be flat. (5) Chronic ulcer of leg Conclusion/Plan: He has likely chronic underlying peripheral vascular disease with venous stasis and had debridement given his prior infection at [facility] a couple months ago. Currently there appears to be no evidence of infection as his white count has down trended. We have consulted wound care and will need close outpatient follow-up. (6) Peripheral vascular disease Conclusion/Plan: Patient with known peripheral vascular disease and requesting records from [facility] to see if any intervention or revascularization procedure was performed. He continues on Eliquis and may benefit from a atorvastatin plus or minus Pletal given his discoloration of his lower extremities. He has had elevated LFTs in the past. Will place on a statin and monitor LFTs. We will obtain an NICK to see the extent of his PAD. (7) COPD (chronic obstructive pulmonary disease) Conclusion/Plan: Does not appear to be in exacerbation. Pulmonary toileting, duo nebs as needed, nicotine patch given his tobacco use disorder. (8) Alcoholism Conclusion/Plan: He continues to drink alcohol but denies consumption for the past week due to his dyspnea. We will continue him on thiamine and multivitamin. I would suspect if he were to have symptoms of withdrawal he would have already gone through this given it has been 1 week since his last drink but nonetheless, we will monitor him for evidence of withdrawal. (9) Transient hypotension With systolic blood pressures in the 80s and the 100s secondary to being on IV Lasix and metoprolol. However will resume his Aldactone and hold his lisinopril given his hypotension and worsening ESTEVAN. (10) Homelessness This is likely the primary underlying social determinant influencing his health and medical conditions as per above as decreased access to care is likely and will be ongoing. Patient apparently has been living and sleeps at a homeless long term and intermittently goes to the [facility] and social security specialist is aware however given his alcohol use and prior complex medical history he will be a placement issue
[2021-08-03] MEDS ORDERED: MAGNESIUM SULFATE 2 GRAM 2 GM/50 ML BAG IV ONE (12:10)
[2021-08-03] MEDS ORDERED: MIDODRINE 2.5 MG TABLET PO STA (12:12)
[2021-08-03] MEDS ORDERED: cilostazoL 100 MG TABLET PO SCH (13:00)
[2021-08-03] MEDS: GABAPENTIN 300 MG CAPSULE PO SCH ×2 (13:31→20:26)
--- NOTE | 2021-08-03 14:02 | Ultrasound Report ---
PROCEDURE: Ankle Brachial Index INDICATIONS: Severe PAD w/ decreased DP's BLLE TECHNIQUE: Ankle-brachial indices were obtained bilaterally and recorded. COMPARISONS: None. FINDINGS: Exam is somewhat limited given inability to properly readings at the ankles with NICK based on pressur es from the proximal calf. Right brachial pressure is 122/88 with left brachial pressure measuring 102/68. Catheter pressures on the right measures 58/24 and on the left measures 105/02. Posterior tibial and dorsalis pedis velocities are within normal limits with triphasic/biphasic wavef orms. Right ankle brachial index (NICK): 0.47 Left ankle brachial index (NICK): 0.86 Healing potential: Ankle pressures >55 mm Hg in non-diabetics and >80 mm Hg in diabetics are likely to achieve primary h ealing of ischemic foot ulcers. Toe pressures >30 mm Hg are likely to achieve primary healing of ischemic foot ulcers, toe or transme tatarsal amputations. IMPRESSION: Right ankle brachial index measures 0.47 and left ankle brachial index measures 0.86 within the limit s of this exam. Reviewed by: Wander Thakkar DO on 08/03/2021 1:00 PM KALEB Approved by: Wander Thakkar DO on 08/03/2021 1:00 PM KALEB Station ID: [id number]
[2021-08-03] MEDS ORDERED: GI COCKTAIL 120 ML BOTTLE PO PRN (14:10)
--- NOTE | 2021-08-03 16:09 | Ultrasound Report ---
PROCEDURE: Duplex Lwr Ext Arterial Bilat INDICATIONS: Abn NICK right>left eval for arterial stenosis/obst TECHNIQUE: Color and pulse Doppler interrogation was performed of both lower extremity arterial systems, with im age documentation. COMPARISON: None FINDINGS: Exam is somewhat limited given patient body habitus and multiple overlying ulcers. Right lower extremity: Common femoral artery: 41.3 cm/sec, with triphasic flow. Deep femoral artery: 17 cm/sec, with biphasic flow. Proximal superficial femoral artery: 39 cm/sec, with triphasic flow. Mid superficial femoral artery: 83.8 cm/sec, with triphasic flow. Distal superficial femoral artery: 31.9 cm/sec, with biphasic flow. Popliteal artery: 17.5 cm/sec, with biphasic flow. Posterior tibial artery: 27.9 cm/sec, with biphasic flow. Anterior tibial artery/dorsalis pedis: 10.8 and 15.9 cm/sec, with monophasic flow. Salcido-scale imaging description: Diffuse calcified and noncalcified atherosclerosis most prominent wi thin the common femoral and superficial femoral artery measuring less than 50% stenosis. Diffuse soft tissue edema. Left lower extremity: Common femoral artery: 79 cm/sec, with biphasic flow. Deep femoral artery: 16.6 cm/sec, with biphasic flow. Proximal superficial femoral artery: 40.9 cm/sec, with triphasic flow. Mid superficial femoral artery: 24.1 cm/sec, with triphasic flow. Distal superficial femoral artery: 19.1 cm/sec, with triphasic flow. Popliteal artery: 26.5 cm/sec, with triphasic flow. Posterior tibial artery: 31.8 cm/sec, with triphasic flow. Anterior tibial artery/dorsalis pedis: 9.9 and 8.2 cm/sec, with monophasic flow. Salcido-scale imaging description: There is mild atherosclerotic plaque most within the common femoral and superficial femoral measuring less than 50% stenosis. There is a questionable outpouching of the left common femoral artery. Diffuse soft tissue edema. IMPRESSION: No significant stenosis or occlusion. Atherosclerosis measuring less than 50% stenosis on grayscale i maging. Questionable outpouching in the left common femoral artery. Represent a small pseudoaneurysm. Conside r dedicated ultrasound evaluation. Diffuse soft tissue edema. Reviewed by: Wander Thakkar DO on 08/03/2021 3:07 PM AKDT Approved by: Wander Thakkar DO on 08/03/2021 3:07 PM KALEB Station ID: [id number]
[2021-08-03] MEDS: MIDODRINE 2.5 MG TABLET PO SCH (18:10)
[2021-08-03] MEDS: ATORVASTATIN 40 MG TABLET PO SCH (20:26)
[2021-08-04] MEDS: HYDROcod/ACETAM 5/325 MG TABLET PO PRN ×2 (00:25→16:23)
[2021-08-04] MEDS: SODIUM CHLORIDE FLUSH 0.9% 10 ML SYRINGE IVP SCH ×3 (00:26→16:23)
[2021-08-04 05:38] LABS: BASOPHILS # (AUTO) 0.1 10^3/uL (0.0-0.1); BASOPHILS % (AUTO) 1.2 %; EOSINOPHILS % (AUTO) 0.6 %; HCT - HEMATOCRIT 41.3 % (42.0-52.0); HGB - HEMOGLOBIN 13.5 g/dL (14.0-18.0); LYMPHOCYTES # (AUTO) 1.1 10^3/uL (1.5-3.5); LYMPHOCYTES % (AUTO) 16.4 %; MEAN CORPUSCULAR HEMOGLOBIN 32.2 pg (27.0-31.0); MEAN CORPUSCULAR HGB CONC 32.7 g/dL (32.0-36.0); MEAN CORPUSCULAR VOLUME 98.6 fL (80.0-94.0); MEAN PLATELET VOLUME 11.6 fL (7.4-11.4); MONOCYTES % (AUTO) 15.3 %; NEUTROPHILS # (AUTO) 4.4 10^3/uL (1.5-6.6); PLT - PLATELET COUNT 147 10^3/uL (130-450); RED BLOOD COUNT 4.19 10^6/uL (4.70-6.10); RED CELL DISTRIBUTION WIDTH 18.1 % (12.0-15.0); WHITE BLOOD COUNT 6.6 x10^3/uL (4.8-10.8)
[2021-08-04 05:52] LABS: ALBUMIN 3.3 g/dL (3.2-5.5); ALBUMIN/GLOBULIN RATIO 1.3 (1.0-2.2); BILIRUBIN,TOTAL 0.8 mg/dL (0.2-1.0); CALCIUM 8.4 mg/dL (8.5-10.3); CREATININE 1.3 mg/dL (0.6-1.2); MAGNESIUM 1.8 mg/dL (1.7-2.8); POTASSIUM 3.8 mmol/L (3.5-5.0); TOTAL PROTEIN 5.9 g/dL (6.7-8.2)
[2021-08-04] MEDS: MIDODRINE 2.5 MG TABLET PO SCH ×3 (06:09→17:59)
[2021-08-04] MEDS: PANTOPRAZOLE 40 MG TABLET PO SCH (06:09)
[2021-08-04] MEDS: THIAMINE 100 MG TABLET PO SCH (08:51)
[2021-08-04] MEDS: CITALOPRAM 10 MG TABLET PO SCH (08:51)
[2021-08-04] MEDS: MAGNESIUM OXIDE 400 MG TABLET PO SCH ×3 (08:51→16:23)
[2021-08-04] MEDS: MULTIVITAMIN TABLET PO SCH (08:51)
[2021-08-04] MEDS: SPIRONOLACTONE 25 MG TABLET PO SCH (08:51)
[2021-08-04] MEDS: METOPROLOL SUCCINATE 25 MG TABLET PO SCH (08:51)
[2021-08-04] MEDS: DIGOXIN 125 MCG TABLET PO SCH (08:51)
[2021-08-04] MEDS: FUROSEMIDE 40 MG/4 ML VIAL IVP SCH ×2 (08:52→20:21)
[2021-08-04] MEDS: NICOTINE 14 MG PATCH TOP SCH (08:52)
[2021-08-04] MEDS: APIXABAN 5 MG TABLET PO SCH ×2 (08:52→20:21)
[2021-08-04] MEDS: GABAPENTIN 300 MG CAPSULE PO SCH ×3 (08:52→20:20)
[2021-08-04] MEDS ORDERED: SPIRONOLACTONE 25 MG TABLET PO SCH (09:00)
--- NOTE | 2021-08-04 09:10 | PROVIDER PROGRESS NOTE ---
Progress Note Patient not able to take Pletal due to its interaction with Celexa per pharmacy. NICK shows 0.47 on the right and 0.86 on the left indicating severe PAD to the right lower extremity with up to 50% occlusion. Will have arterial Doppler to follow. Original Note: Progress Note This is a 61-year-old male with a past medical history significant for chronic systolic heart failure with an ejection fraction of 15%, cor pulmonale, atrial flutter, alcoholism, peripheral vascular disease who presents today complaining of worsening shortness of breath and lower extremity edema. He states for the past couple weeks his lower extremity edema has progressed and now over the past week he became more short of breath. He went to the walk-in clinic today for follow-up and he was referred to the emergency department given concern for heart failure. The patient states he always feels short of breath due to his heart failure but his symptoms are now worse. His legs are much more edematous than usual. He now has orthopnea and a nonproductive cough. He states he does get occasional chest pain but this is more associated with anxiety he gets when he begins to feel short of breath. He currently denies any chest pain. He reports no fevers or chills. He does occasionally feel dizzy and lightheaded. He does take Lasix and he states the dose was increased to 60 mg about 1 week ago but he has not found much benefit with the increased dose. He does take other heart failure therapy including lisinopril, spironolactone, metoprolol. He states he is not on anticoagulation and he is not sure why. He was on Coumadin in the past. He also reports being hospitalized at [place] in [facility] in April for about 6 weeks due to a left lower extremity wound that required surgical debridement and wound VAC. He states he is currently not on any antibiotics. There has been occasional drainage from the wound but it is not foul-smelling and the wound has not progressed in size. He also reports having an ultrasound of his right leg about a week ago due to worsening right lower extremity edema compared to the left. There was no evidence of DVT to his knowledge. In the emergency department, he was not hypoxic but noted to be quite dyspneic and with significant lower extremity edema. He was given 80 mg of Lasix IV. Given the concern for acute on chronic heart failure, medicine was consulted for admission. We discussed goals of care and the patient confirms he is a DNR. Patient seen at bedside with dyspnea on exertion, has chronic bilateral lower extremity edema with chronic nonhealing ulcers weepiness more to the right lower extremity versus the left which has a cratered like ulcerative lesion which is nontender and does not appear to be infected acutely. Patient did have a ultrasound the right lower extremity 10 days ago which showed negative DVT. Patient's systolic blood pressures range between the 80s to the 100s and is on guideline directed medical therapy. Does have underlying chronic kidney disease. Patient states that [facility]eps at a homeless [facility] and [facility] and high school social studies teacher aware. Otherwise he is sitting up at bedside without fevers, nausea, emesis, chest pain, shortness of breath, GI or symptoms, MP rash or joint tenderness. On examination: Vital signs are stable, patient is afebrile, mildly tachypneic 20-22, 101/68 does drop to 88/74 on BPs, 95% O2 saturation on room air and heart rate ranging between 90-130 bpm A. fib and a flutter HEENT: no buccal lesions, dry MMM. Neck: +mild JVD. Trachea midline, no thyromegaly, no bruits CV/lungs: Irregularly irregular, tachycardia, S1-S2 within normal limits, no murmurs, gallops or clicks. Decreased breath sounds bibasilarly with no expiratory rhonchi rales or wheezing Abdomen: Soft, nontender, nondistended, no HSM Extremities/skin: Dusky cold and blue discoloration of bilateral lower extremities with decreased 0-1+ dorsalis pedis with bilateral lower extremity 2+ pitting edema along with chronic ulcerative wounds to the left medial posterior and right anterior weeping in nature. Neuro: Grossly intact. Intake and Output Totals x24h 08/02/21 08/03/21 08/04/21 23:59 23:59 23:59 Intake Total 240 1060 50 Output Total 1375 1270 300 Balance -1135 -210 -250 Laboratory Last Values WBC 6.6 x10^3/uL (4.8-10.8) 08/04/21 05:01 RBC 4.19 10^6/uL (4.70-6.10) L 08/04/21 05:01 Hgb 13.5 g/dL (14.0-18.0) L 08/04/21 05:01 Hct 41.3 % (42.0-52.0) L 08/04/21 05:01 MCV 98.6 fL (80.0-94.0) H 08/04/21 05:01 MCH 32.2 pg (27.0-31.0) H 08/04/21 05:01 MCHC 32.7 g/dL (32.0-36.0) 08/04/21 05:01 RDW 18.1 % (12.0-15.0) H 08/04/21 05:01 Plt Count 147 10^3/uL (130-450) 08/04/21 05:01 MPV 11.6 fL (7.4-11.4) H 08/04/21 05:01 Neut # (Auto) 4.4 10^3/uL (1.5-6.6) 08/04/21 05:01 Lymph # (Auto) 1.1 10^3/uL (1.5-3.5) L 08/04/21 05:01 Alpine # (Auto) 1.0 10^3/uL (0.0-1.0) 08/04/21 05:01 Eos # (Auto) 0.0 10^3/uL (0.0-0.7) 08/04/21 05:01 Baso # (Auto) 0.1 10^3/uL (0.0-0.1) 08/04/21 05:01 Absolute Nucleated RBC 0.00 x10^3/uL 08/04/21 05:01 Nucleated RBC % 0.0 /100WBC 08/04/21 05:01 PT 13.2 secs (9.9-12.6) H 08/02/21 16:19 INR 1.2 (0.8-1.2) 08/02/21 16:19 Sodium 138 mmol/L (135-145) 08/04/21 05:01 Potassium 3.8 mmol/L (3.5-5.0) 08/04/21 05:01 Chloride 95 mmol/L (101-111) L 08/04/21 05:01 Carbon Dioxide 31 mmol/L (21-32) 08/04/21 05:01 Anion Gap 12.0 (6-13) 08/04/21 05:01 BUN 31 mg/dL (6-20) H 08/04/21 05:01 Creatinine 1.3 mg/dL (0.6-1.2) H 08/04/21 05:01 Estimated GFR (MDRD) 56 (>89) L 08/04/21 05:01 Glucose 101 mg/dL (70-100) H 08/04/21 05:01 Calcium 8.4 mg/dL (8.5-10.3) L 08/04/21 05:01 Magnesium 1.8 mg/dL (1.7-2.8) 08/04/21 05:01 Total Bilirubin 0.8 mg/dL (0.2-1.0) 08/04/21 05:01 AST 19 IU/L (10-42) 08/04/21 05:01 ALT 10 IU/L (10-60) 08/04/21 05:01 Alkaline Phosphatase 50 IU/L (42-121) 08/04/21 05:01 Troponin I High Sens 109.2 ng/L (2.3-19.7) H* 08/04/21 05:01 B-Natriuretic Peptide 5821.00 pg/mL (5-100) H 08/04/21 05:01 Total Protein 5.9 g/dL (6.7-8.2) L 08/04/21 05:01 Albumin 3.3 g/dL (3.2-5.5) 08/04/21 05:01 Globulin 2.6 g/dL (2.1-4.2) 08/04/21 05:01 Albumin/Globulin Ratio 1.3 (1.0-2.2) 08/04/21 05:01 Lipase 47 U/L (22-51) 08/02/21 16:19 Last Dose Date UNK 08/02/21 18:59 Last Dose Time UNK 08/02/21 18:59 Digoxin 0.6 ng/mL 08/02/21 18:59 SARS-CoV-2 (PCR) NOT DETECTED 08/02/21 16:57 Active Medications Generic Name Dose Route Start Last Admin Trade Name Freq PRN Reason Stop Dose Admin Acetaminophen 650 mg 08/02/21 18:31 08/03/21 06:03 Acetaminophen 325 Mg Tablet PO 650 mg Q4HR PRN Administration Pain 1 to 4, or Fever Hydrocodone Bitart/Acetaminophen 1 tab 08/02/21 18:31 08/04/21 00:25 Hydrocod/Acetam 5/325 Mg Tablet PO 1 tab Q4HR PRN Administration Pain 5 to 7 Albuterol/Ipratropium 3 ml 08/02/21 23:35 Ipratropium/Albuterol 3 Ml Neb INH Q4HR PRN Wheezing Apixaban 5 mg 08/02/21 21:00 08/04/21 08:52 Apixaban 5 Mg Tablet PO 5 mg BID YONATHAN Administration Atorvastatin Calcium 40 mg 08/03/21 21:00 08/03/21 20:26 Atorvastatin 40 Mg Tablet PO 40 mg QPM YONATHAN Administration Citalopram Hydrobromide 10 mg 08/04/21 09:00 08/04/21 08:51 Citalopram 10 Mg Tablet PO 10 mg DAILY YONATHAN Administration Digoxin 125 mcg 08/03/21 09:00 08/04/21 08:51 Digoxin 125 Mcg Tablet PO 125 mcg DAILY YONATHAN Administration Digoxin 250 mcg 08/02/21 18:47 08/03/21 17:08 Digoxin 500 Mcg/2 Ml Amp IVP 250 mcg Q6HR PRN Administration afib>120 Furosemide 40 mg 08/03/21 09:00 08/04/21 08:52 Furosemide 40 Mg/4 Ml Vial IVP 40 mg BID YONATHAN Administration Gabapentin 600 mg 08/03/21 21:00 08/03/21 20:26 Gabapentin 300 Mg Capsule PO 600 mg QPM YONATHAN Administration Gabapentin 300 mg 08/03/21 11:32 08/04/21 08:52 Gabapentin 300 Mg Capsule PO 300 mg 0800,1400 YONATHAN Administration Hydromorphone HCl 0.5 mg 08/02/21 18:31 08/03/21 10:32 Hydromorphone 0.5 Mg/0.5 Ml Syringe IVP 0.5 mg Q2H PRN Administration Pain 8 to 10 Ipratropium [place] 0.5 mg 08/02/21 18:31 Ipratropium 0.2 Mg/Ml Neb INH Q6HR PRN Wheezing Magnesium Oxide 600 mg 08/04/21 08:00 08/04/21 08:51 Magnesium Oxide 400 Mg Tablet PO 600 mg TIDWM YONATHAN Administration Metoprolol Succinate 25 mg 08/03/21 09:00 08/04/21 08:51 Metoprolol Succinate 25 Mg Tablet PO 25 mg DAILY YONATHAN Administration Midodrine 5 mg 08/03/21 18:00 08/04/21 06:09 Midodrine 2.5 Mg Tablet PO 5 mg 0600,1200,1800 YONATHAN Administration Multi-Ingredient Mouthwash/Gargle 30 ml 08/03/21 14:10 08/03/21 15:57 Gi Cocktail 120 Ml Bottle PO 30 ml Q4H PRN Administration Abdominal Pain Multivitamins 1 tab 08/03/21 08:00 08/04/21 08:51 Multivitamin Tablet PO 1 tab DAILYWM YONATHAN Administration Nicotine 1 patch 08/03/21 09:00 08/04/21 08:52 Nicotine 14 Mg Patch TOP 1 patch DAILY YONATHAN Administration Pantoprazole Sodium 40 mg 08/03/21 07:00 08/04/21 06:09 Pantoprazole 40 Mg Tablet PO 40 mg QDAC YONATHAN Administration Prochlorperazine Edisylate 10 mg 08/02/21 18:31 Prochlorperazine 10 Mg/2 Ml Vial IVP Q6HR PRN Nausea / Vomiting Sodium Chloride 10 ml 08/03/21 01:00 08/04/21 08:52 Sodium Chloride Flush 0.9% 10 Ml Syringe IVP 10 ml 0100,0900,1700 YONATHAN Administration Sodium Chloride 10 ml 08/02/21 18:31 Sodium Chloride Flush 0.9% 10 Ml Syringe IVP PRN PRN NEEDED PER PROVIDER ORDERS Spironolactone 12.5 mg 08/03/21 09:00 08/04/21 08:51 Spironolactone 25 Mg Tablet PO 12.5 mg DAILY YONATHAN Administration Thiamine HCl 100 mg 08/03/21 09:00 08/04/21 08:51 Thiamine 100 Mg Tablet PO 100 mg DAILY YONATHAN Administration Imaging studies: CXR, NCIK and arterial Doppler flow studies have been reviewed. Assessment/plan: (1) Acute on chronic systolic and diastolic heart failure, NYHA class 4 Conclusion/Plan: Patient with ongoing worsening dyspnea, orthopnea and bilateral lower extremity edema with BNP worsening but has been chronically elevated over the course of 6 months. He is currently receiving Lasix 40 mg twice daily. Plan is to discharge him on Bumex or adding Zaroxolyn for adjuvant therapy on his chronic edema. We will continue with guideline directed medical therapy and adding lisinopril and Aldactone if BP tolerates. We will continue with metoprolol as well as Eliquis given his variable RVR A. fib/a flutter. Echocardiogram to repeat given his LV function at 15%. Continue strict I's and O's, daily weights and low-sodium cardiac diet with fluid restriction of [id number]. Patient with a negative net balance and although BNP has up trended patient will require some time for chronic pleural effusions as well as underlying chronic edema to improve. We will add Zaroxolyn to improve bilateral leg edema. (2) Atrial flutter, chronic---Stable Conclusion/Plan: His heart rates are variable in the 90s up to 100s. Has hypomagnesemia and will be correcting as needed to maintain above 2.0. We will continue his home digoxin and metoprolol. Digoxin level is therapeutic. He remains on Eliquis for anticoagulation given his elevated [id number] score of 3 pts (i.e. CHF, hypertension, PVD). Continue monitoring on telemetry. (3) ESTEVAN (acute kidney injury)--Stable Conclusion/Plan: He does have mild acute kidney injury w/ a 1.3 on admit and baseline is around 1.0. Renal function has not worsened as he is receiving IV Lasix at this time Is on Aldactone but holding lisinopril given his ESTEVAN. Although I suspect this is likely cardiorenal syndrome due to the heart failure. Due to his soft BPs and unable to tolerate GDMT was placed patient on midodrine at 5 mg p.o. 3 times daily given his cardiorenal syndrome.This should improve as he is diuresed. Continue to monitor his renal function and urine output closely. May reintroduce lisinopril given his stable renal function and close to euvolemic status, continue to monitor and replace electrolyte disturbances with low magnesium. (4) Demand Ischemia/Elevated troponin---Chronic Conclusion/Plan: His troponin is constantly elevated and suspect is likely demand ischemia due to the heart failure. I have requested records from [place] to see if he had an ischemic work-up as his troponin was also elevated during that admission. We will manage his heart failure as mentioned above. We will continue to trend troponin although so far it appears to be flat. (5) Chronic ulcer of leg/edema Conclusion/Plan: He has likely chronic underlying peripheral vascular disease with venous stasis and had debridement given his prior infection at [place] a couple months ago. Currently there appears to be no evidence of infection as his white count has down trended. We have consulted wound care and will need close outpatient follow-up. (6) Peripheral vascular disease---Severe Conclusion/Plan: Patient with known peripheral vascular disease and requesting records from [place] to see if any intervention or revascularization procedure was performed. Patient has a recollection of being placed on extremity wound VAC with debridement although he cannot tell me if he had vascular interventions done. Patient has obvious cyanosis and discoloration w/ edema of his bilateral lower extremity right worse than the left with 0-1+ dorsalis pedis. He continues on Eliquis and on atorvastatin. Unfortunately Pletal cannot be added to decrease hyperviscosity and thromboembolic prevention, due to severe drug drug interaction with Celexa per pharmacy. He has had elevated LFTs in the past. Need to monitor LFTs while on statin. Patient had an NICK which showed severe PVD on the right with mild to moderate PVD on the left. A follow-up arterial ultrasound Doppler revealed less than 50% atherosclerosis with no overt obstruction or stenosis to the right lower extremity. However there was questionable outpouching of the left common femoral artery consistent with pseudoaneurysm. (7) COPD (chronic obstructive pulmonary disease) Conclusion/Plan: Does not appear to be in exacerbation. Pulmonary toileting, duo nebs as needed, nicotine patch given his tobacco use disorder. (8) Alcoholism Conclusion/Plan: He continues to drink alcohol but denies consumption for the past week due to his dyspnea. We will continue him on thiamine and multivitamin. I would suspect if he were to have symptoms of withdrawal he would have already gone through this given it has been 1 week since his last drink but nonetheless, we will monitor him for evidence of withdrawal. (9) Transient hypotension---improved With systolic blood pressures in the 80s and the 100s secondary to being on IV Lasix and metoprolol. Remains on Lasix, Aldactone, will add Zaroxolyn to his regimen. On midodrine scheduled at 5 mg p.o. 3 times daily given his likely cardiorenal syndrome. (10) Homelessness This is likely the primary underlying social determinant influencing his health and medical conditions as per above as decreased access to care is likely and will be ongoing. Patient apparently has been living and sleeps at a homeless [facility] and intermittently goes to the [facility] and high school social studies teacher is aware however given his alcohol use and prior complex medical history he will be a placement issue DVT prophylaxis: On Eliquis CODE STATUS: DNR status
[2021-08-04] MEDS: metOLazone 2.5 MG TABLET PO SCH ×2 (10:30→20:20)
[2021-08-04] MEDS: lisinopriL 5 MG TABLET PO SCH (10:31)
[2021-08-04] MEDS ORDERED: MAGNESIUM OXIDE 400 MG TABLET PO SCH (12:00)
[2021-08-04] MEDS: ATORVASTATIN 40 MG TABLET PO SCH (20:20)
[2021-08-05] MEDS: SODIUM CHLORIDE FLUSH 0.9% 10 ML SYRINGE IVP SCH ×4 (00:01→23:40)
[2021-08-05] MEDS: HYDROcod/ACETAM 5/325 MG TABLET PO PRN ×2 (02:50→06:49)
[2021-08-05 05:51] LABS: ALBUMIN 3.1 g/dL (3.2-5.5); CALCIUM 8.3 mg/dL (8.5-10.3); CREATININE 1.3 mg/dL (0.6-1.2); MAGNESIUM 1.6 mg/dL (1.7-2.8); PHOSPHORUS 3.7 mg/dL (2.5-4.6); POTASSIUM 3.8 mmol/L (3.5-5.0)
[2021-08-05] MEDS: PANTOPRAZOLE 40 MG TABLET PO SCH (06:49)
[2021-08-05] MEDS: MIDODRINE 2.5 MG TABLET PO SCH ×3 (06:49→17:28)
[2021-08-05] MEDS ORDERED: MAGNESIUM SULFATE 2 GRAM 2 GM/50 ML BAG IV ONE (08:00)
[2021-08-05] MEDS: IPRATROPIUM/ALBUTEROL 3 ML NEB INH PRN (08:13)
[2021-08-05] MEDS: NICOTINE 14 MG PATCH TOP SCH (08:49)
[2021-08-05] MEDS: APIXABAN 5 MG TABLET PO SCH ×2 (08:49→20:38)
[2021-08-05] MEDS: CITALOPRAM 10 MG TABLET PO SCH (08:50)
[2021-08-05] MEDS: metOLazone 2.5 MG TABLET PO SCH ×2 (08:50→20:38)
[2021-08-05] MEDS: MAGNESIUM OXIDE 400 MG TABLET PO SCH ×3 (08:50→15:48)
[2021-08-05] MEDS: GABAPENTIN 300 MG CAPSULE PO SCH ×3 (08:50→20:38)
[2021-08-05] MEDS: DIGOXIN 125 MCG TABLET PO SCH (08:50)
[2021-08-05] MEDS: METOPROLOL SUCCINATE 25 MG TABLET PO SCH (08:51)
[2021-08-05] MEDS: lisinopriL 5 MG TABLET PO SCH (08:51)
[2021-08-05] MEDS: THIAMINE 100 MG TABLET PO SCH (08:51)
[2021-08-05] MEDS: MULTIVITAMIN TABLET PO SCH (08:51)
[2021-08-05] MEDS: SPIRONOLACTONE 25 MG TABLET PO SCH (08:51)
[2021-08-05] MEDS: ACETAMINOPHEN 325 MG TABLET PO PRN (08:51)
[2021-08-05] MEDS: FUROSEMIDE 40 MG/4 ML VIAL IVP SCH ×2 (08:52→20:39)
[2021-08-05] MEDS ORDERED: fentaNYL 100 MCG/2 ML VIAL IVP PRN (09:04)
--- NOTE | 2021-08-05 09:08 | PROVIDER PROGRESS NOTE ---
Progress Note Patient seen at bedside and is complaining of right lower extremity pain with associated edema and with chronic nonhealing ulcers which do not appear to be infected. His magnesium level is low at 1.6 today creatinine stable at 1.3 with a potassium of 3.8. He was placed on Zaroxolyn low-dose along with ongoing Lasix at 40 mg IV twice daily plus Aldactone low-dose. His heart rate does have intermittent bradycardia with some runs of asymptomatic nonsustained ventricular tachycardia and is not a candidate for AICD and he is DNR. Although he stated that he can always revert his CODE STATUS but then adds "I am not that cristo". Patient denies fevers, nausea, emesis, chest pain, GI or symptoms, MP rash or joint tenderness. He is diuresing well with improved urinary output. On examination: Vital signs are stable, patient is afebrile, mildly tachypneic 20-22, 101/68 does drop to 88/74 on BPs, 95% O2 saturation on room air and heart rate ranging between 90-130 bpm A. fib and a flutter HEENT: no buccal lesions, dry MMM. Neck: +mild JVD. Trachea midline, no thyromegaly, no bruits CV/lungs: Irregularly irregular, tachycardia, S1-S2 within normal limits, no murmurs, gallops or clicks. Decreased breath sounds bibasilarly with no expiratory rhonchi rales or wheezing Abdomen: Soft, nontender, nondistended, no HSM Extremities/skin: Dusky cold and blue discoloration of bilateral lower extremities with decreased 0-1+ dorsalis pedis with bilateral lower extremity 2+ pitting edema along with chronic ulcerative wounds to the left medial posterior and right anterior weeping in nature. Neuro: Grossly intact. Intake and Output Totals x24h 08/03/21 08/04/21 08/05/21 23:59 23:59 23:59 Intake Total 1060 865 75 Output Total 1270 1850 575 Balance -230 -560 -187 Laboratory Results - last 24 hr 08/05/21 05:09 Sodium 136 Potassium 3.8 Chloride 94 L Carbon Dioxide 31 Anion Gap 11.0 BUN 29 H Creatinine 1.3 H Estimated GFR (MDRD) 56 L Glucose 95 Calcium 8.3 L Phosphorus 3.7 Magnesium 1.6 L Albumin 3.1 L Labs: Reviewed Imaging studies: Reviewed (1) Acute on chronic systolic and diastolic heart failure, NYHA class 4 Conclusion/Plan: Patient with ongoing worsening dyspnea, orthopnea and bilateral lower extremity edema with BNP worsening but has been chronically elevated over the course of 6 months. He is currently receiving Lasix 40 mg twice daily. Plan is to discharge him on Bumex or adding Zaroxolyn for adjuvant therapy on his chronic edema. We will continue with guideline directed medical therapy and adding lisinopril and Aldactone if BP tolerates. We will continue with metoprolol as well as Eliquis given his variable RVR A. fib/a flutter. Echocardiogram to repeat given his LV function at 15%. Continue strict I's and O's, daily weights and low-sodium cardiac diet with fluid restriction of 1041-0325. Patient with a negative net balance and although BNP has up trended patient will require some time for chronic pleural effusions as well as underlying chronic edema to improve. We will add Zaroxolyn to improve bilateral leg edema. (2) Atrial flutter, chronic---Stable Conclusion/Plan: His heart rates are variable in the 90s up to 100s. Has hypomagnesemia and will be correcting as needed to maintain above 2.0. We will continue his home digoxin and metoprolol. Digoxin level is therapeutic. He remains on Eliquis for anticoagulation given his elevated [id number] score of 3 pts (i.e. CHF, hyp ertension, PVD). Continue monitoring on telemetry. (3) ESTEVAN (acute kidney injury) w/ associate electrolyte disturbance--Stable Conclusion/Plan: He does have mild acute kidney injury w/ a 1.3 on admit and baseline is around 1.0. Renal function has not worsened as he is receiving IV Lasix at this time Is on Aldactone but holding lisinopril given his ESTEVAN. Although I suspect this is likely cardiorenal syndrome due to the heart failure. Due to his soft BPs and unable to tolerate GDMT was placed patient on midodrine at 5 mg p.o. 3 times daily given his cardiorenal syndrome.This should improve as he is diuresed. Continue to monitor his renal function and urine output closely. Is now on Lisinopril given his stable renal function and close to euvolemic status, continue to monitor and replace electrolyte disturbances with low magnesium. Will place on KCL 20 meq BID given he is on Lasix 40 mg IV BID. (4) Demand Ischemia/Elevated troponin---Chronic Conclusion/Plan: His troponin is constantly elevated and suspect is likely demand ischemia due to the heart failure. I have requested records from [place] to see if he had an ischemic work-up as his troponin was also elevated during that admission. We will manage his heart failure as mentioned above. We will continue to trend troponin although so far it appears to be flat. (5) Chronic ulcer of leg/edema Conclusion/Plan: He has likely chronic underlying peripheral vascular disease with venous stasis and had debridement given his prior infection at [place] a couple months ago. Currently there appears to be no evidence of infection as his white count has down trended. We have consulted wound care and will need close outpatient follow-up. (6) Peripheral vascular disease/painful claudication---Severe Conclusion/Plan: Patient with known peripheral vascular disease and requesting records from [place] to see if any intervention or revascularization procedure was performed. Patient has a recollection of being placed on extremity wound VAC with debridement although he cannot tell me if he had vascular interventions done. Patient has obvious cyanosis and discoloration w/ edema of his bilateral lower extremity right worse than the left with 0-1+ dorsalis pedis. He continues on Eliquis and on atorvastatin. Unfortunately Pletal cannot be added to decrease hyperviscosity and thromboembolic prevention, due to severe drug drug interaction with Celexa per pharmacy. He has had elevated LFTs in the past. Need to monitor LFTs while on statin. Patient had an NICK which showed severe PVD on the right with mild to moderate PVD on the left. A follow-up arterial ultrasound Doppler revealed less than 50% atherosclerosis with no overt obstruction or stenosis to the right lower extremity. However there was questionable outpouching of the left common femoral artery consistent with pseudoaneurysm. Patient with right lower extremity more than left lower extremity pain and will provide increased narcotics with IV fentanyl low-dose as needed. (7) COPD (chronic obstructive pulmonary disease) Conclusion/Plan: Does not appear to be in exacerbation. Pulmonary toileting, duo nebs as needed, nicotine patch given his tobacco use disorder. (8) Alcoholism Conclusion/Plan: He continues to drink alcohol but denies consumption for the past week due to his dyspnea. We will continue him on thiamine and multivitamin. I would suspect if he were to have symptoms of withdrawal he would have already gone through this given it has been 1 week since his last drink but nonetheless, we will monitor him for evidence of withdrawal. (9) Transient hypotension---resolved With systolic blood pressures in the 80s and the 100s secondary to being on IV Lasix and metoprolol. Remains on Lasix, Aldactone, will add Zaroxolyn to his regimen. On midodrine scheduled at 5 mg p.o. 3 times daily given his likely cardiorenal syndrome. (10) Homelessness This is likely the primary underlying social determinant influencing his health and medical conditions as per above as decreased access to care is likely and will be ongoing. Patient apparently has been living and sleeps at a homeless senior care and intermittently goes to the [facility] and social sciences chair is aware however given his alcohol use and prior complex medical history he will be a placement issue DVT prophylaxis: On Eliquis CODE STATUS: DNR status
[2021-08-05] MEDS: HYDROmorphone 0.5 MG/0.5 ML SYRINGE IVP PRN ×4 (12:15→23:40)
[2021-08-05] MEDS: ATORVASTATIN 40 MG TABLET PO SCH (20:39)
[2021-08-05] MEDS: SODIUM CHLORIDE FLUSH 0.9% 10 ML SYRINGE IVP PRN (20:40)
[2021-08-06] MEDS: HYDROmorphone 0.5 MG/0.5 ML SYRINGE IVP PRN ×5 (04:01→14:25)
[2021-08-06] MEDS: PANTOPRAZOLE 40 MG TABLET PO SCH (06:06)
[2021-08-06] MEDS: MIDODRINE 2.5 MG TABLET PO SCH ×3 (06:06→17:46)
[2021-08-06 06:11] LABS: BASOPHILS # (AUTO) 0.1 10^3/uL (0.0-0.1); BASOPHILS % (AUTO) 0.7 %; EOSINOPHILS # (AUTO) 0.1 10^3/uL (0.0-0.7); EOSINOPHILS % (AUTO) 1.1 %; HCT - HEMATOCRIT 42.4 % (42.0-52.0); HGB - HEMOGLOBIN 13.4 g/dL (14.0-18.0); LYMPHOCYTES # (AUTO) 0.8 10^3/uL (1.5-3.5); LYMPHOCYTES % (AUTO) 10.3 %; MEAN CORPUSCULAR HEMOGLOBIN 31.5 pg (27.0-31.0); MEAN CORPUSCULAR HGB CONC 31.6 g/dL (32.0-36.0); MEAN CORPUSCULAR VOLUME 99.8 fL (80.0-94.0); MEAN PLATELET VOLUME 11.5 fL (7.4-11.4); MONOCYTES # (AUTO) 0.8 10^3/uL (0.0-1.0); MONOCYTES % (AUTO) 11.5 %; NEUTROPHILS # (AUTO) 5.6 10^3/uL (1.5-6.6); NEUTROPHILS % (AUTO) 76.1 %; PLT - PLATELET COUNT 158 10^3/uL (130-450); RED BLOOD COUNT 4.25 10^6/uL (4.70-6.10); RED CELL DISTRIBUTION WIDTH 17.9 % (12.0-15.0); WHITE BLOOD COUNT 7.3 x10^3/uL (4.8-10.8)
[2021-08-06 06:27] LABS: ALBUMIN 3.5 g/dL (3.2-5.5); CALCIUM 8.6 mg/dL (8.5-10.3); CREATININE 1.3 mg/dL (0.6-1.2); MAGNESIUM 1.9 mg/dL (1.7-2.8); PHOSPHORUS 3.5 mg/dL (2.5-4.6); POTASSIUM 3.9 mmol/L (3.5-5.0)
--- NOTE | 2021-08-06 08:40 | PROVIDER PROGRESS NOTE ---
Assessment/Plan - Problem List (1) Acute on chronic systolic and diastolic heart failure, NYHA class 4 Assessment/Plan: Last echo on 01/21/2021 showed overall left ventricular systolic function was severely impaired with a left ventricular ejection fraction of less than 20%. Due to patient being homeless and noncompliant with medical care he was not a candidate for an AICD device. BNP has been as high as 5821. Today BNP was 2920. Respiratory status improved with diuresis. Oxygen saturation between 91 and 100% on room air. Systolic blood pressure between 101 24. Lasix 40 mg IV twice daily. Metoprolol succinate 25 mg p.o. daily. Metolazone 2.5 mg p.o. twice daily. Spironolactone 12.5 mg p.o. daily. Lisinopril 2.5 mg p.o. daily. Digoxin 125 mcg p.o. daily. (2) COPD (chronic obstructive pulmonary disease) with emphysema Qualifiers: Emphysema type: unspecified Qualified Code(s): J43.9 - Emphysema, unspecified Assessment/Plan: Oxygen Saturation is between 91 and 100% on room air. Patient is breathing comfortably. DuoNeb every 4 hours as needed. Atrovent 0.5 mg inhalation every 6 hours as needed. (4) Chronic ulcer of leg Qualifiers: Laterality: left Assessment/Plan: Patient has underlying peripheral vascular disease. Also Lower extremity edema from CHF contributing. Wound dressing daily by nursing staff. (5) ESTEVAN (acute kidney injury) Assessment/Plan: Likely secondary to CHF exacerbation. Anticipate improvement with diuresis. Returning today is 1.3. Last January creatinine was as high as 2.4. (7) Homelessness Assessment/Plan: He resides at the homeless snf in [place]. - Current Meds Current Meds: Current Medications Generic Name Dose Route Start Last Admin Trade Name Freq PRN Reason Stop Dose Admin Acetaminophen 650 mg 08/02/21 18:31 08/05/21 08:51 Acetaminophen 325 Mg Tablet PO 650 mg Q4HR PRN Administration Pain 1 to 4, or Fever Albuterol/Ipratropium 3 ml 08/02/21 23:35 08/05/21 08:13 Ipratropium/Albuterol 3 Ml Neb INH 3 ml Q4HR PRN Administration Wheezing Apixaban 5 mg 08/02/21 21:00 08/05/21 20:38 Apixaban 5 Mg Tablet PO 5 mg BID YONATHAN Administration Atorvastatin Calcium 40 mg 08/03/21 21:00 08/05/21 20:39 Atorvastatin 40 Mg Tablet PO 40 mg QPM YONATHAN Administration Digoxin 125 mcg 08/03/21 09:00 08/05/21 08:50 Digoxin 125 Mcg Tablet PO 125 mcg DAILY YONATHAN Administration Digoxin 250 mcg 08/02/21 18:47 08/03/21 17:08 Digoxin 500 Mcg/2 Ml Amp IVP 250 mcg Q6HR PRN Administration afib>120 Furosemide 40 mg 08/03/21 09:00 08/05/21 20:39 Furosemide 40 Mg/4 Ml Vial IVP 40 mg BID OYNATHAN Administration Gabapentin 600 mg 08/03/21 21:00 08/05/21 20:38 Gabapentin 300 Mg Capsule PO 600 mg QPM YONATHAN Administration Gabapentin 300 mg 08/03/21 11:32 08/05/21 13:19 Gabapentin 300 Mg Capsule PO 300 mg 0800,1400 YONATHAN Administration Hydromorphone HCl 0.5 mg 08/02/21 18:31 08/06/21 06:06 Hydromorphone 0.5 Mg/0.5 Ml Syringe IVP 0.5 mg Q2H PRN Administration Pain 8 to 10 Lisinopril 2.5 mg 08/04/21 10:00 08/05/21 08:51 Lisinopril 5 Mg Tablet PO 2.5 mg DAILY YONATHAN Administration Magnesium Oxide 800 mg 08/05/21 08:00 08/05/21 15:48 Magnesium Oxide 400 Mg Tablet PO 800 mg TIDWM YONATHAN Administration Metolazone 2.5 mg 08/04/21 10:00 08/05/21 20:38 Metolazone 2.5 Mg Tablet PO 2.5 mg BID YONATHAN Administration Metoprolol Succinate 25 mg 08/03/21 09:00 08/05/21 08:51 Metoprolol Succinate 25 Mg Tablet PO 25 mg DAILY YONATHAN Administration Midodrine 5 mg 08/03/21 18:00 08/06/21 06:06 Midodrine 2.5 Mg Tablet PO 5 mg 0600,1200,1800 YONATHAN Administration Multi-Ingredient Mouthwash/Gargle 30 ml 08/03/21 14:10 08/03/21 15:57 Gi Cocktail 120 Ml Bottle PO 30 ml Q4H PRN Administration Abdominal Pain Multivitamins 1 tab 08/03/21 08:00 08/05/21 08:51 Multivitamin Tablet PO 1 tab DAILYWM YONATHAN Administration Nicotine 1 patch 08/03/21 09:00 08/05/21 08:49 Nicotine 14 Mg Patch TOP 1 patch DAILY YONATHAN Administration Pantoprazole Sodium 40 mg 08/03/21 07:00 08/06/21 06:06 Pantoprazole 40 Mg Tablet PO 40 mg QDAC YONATHAN Administration Prochlorperazine Edisylate 10 mg 08/02/21 18:31 08/04/21 11:58 Prochlorperazine 10 Mg/2 Ml Vial IVP 10 mg Q6HR PRN Administration Nausea / Vomiting Sodium Chloride 10 ml 08/03/21 01:00 08/05/21 23:40 Sodium Chloride Flush 0.9% 10 Ml Syringe IVP 10 ml 0100,0900,1700 YONATHAN Administration Sodium Chloride 10 ml 08/02/21 18:31 08/05/21 20:40 Sodium Chloride Flush 0.9% 10 Ml Syringe IVP 10 ml PRN PRN Administration NEEDED PER PROVIDER ORDERS Spironolactone 12.5 mg 08/03/21 09:00 08/05/21 08:51 Spironolactone 25 Mg Tablet PO 12.5 mg DAILY YONATHAN Administration Thiamine HCl 100 mg 08/03/21 09:00 08/05/21 08:51 Thiamine 100 Mg Tablet PO 100 mg DAILY YONATHAN Administration - Lab Result Fish Bone Diagrams: 08/06/21 04:40 08/06/21 04:40 Subjective - Subjective Patient Reports: Other (Was resting comfortably in bed at time of exam. Reports breathing more comfortably on room air. Breath sounds coarse. Lower extremity edema 2+ but improved. Lower extremity wounds appreciable. Lower extremities dusky in appearance) Objective Vital Signs: Vital Signs - 24 hr 08/05/21 08/05/21 08/05/21 12:10 15:59 18:40 Temperature 36.4 C L 36.5 C 36.5 C Heart Rate [ 87 64 Brachial] Heart Rate [ 76 Monitoring electrodes] Respiratory 19 18 19 Rate Blood Pressure 119/79 133/81 H 123/83 H [Right Brachial artery] O2 Saturation 95 100 99 08/05/21 08/05/21 20:35 23:45 Temperature 36.6 C Heart Rate [ 69 88 Brachial] Heart Rate [ Monitoring electrodes] Respiratory 16 Rate Blood Pressure 114/76 102/79 [Right Brachial artery] O2 Saturation 94 Oxygen O2 Source Room air I&O (Last 24 Hrs): Intake and Output Totals x24h 08/04/21 08/05/21 08/06/21 23:59 23:59 23:59 Intake Total 865 765 Output Total 1850 1575 1600 Balance -985 -810 -1600 General: Alert, Oriented x3, Mild distress HEENT: PERRLA, EOMI Neck: Supple, No JVD Neuro: Alert, Non Focal, Oriented Times 3 Cardiovascular: Regular rate, No murmurs Respiratory: Chest non-tender, No respiratory distress, Other (Coars ebreath sounds) Abdomen: Normal bowel sounds, Soft, No tenderness, No masses Extremities: Other (2+ edema, dusky appearing lower extremities) Comments/Notes: chronic open wounds on lower extremity bilaterally - Results Results: Laboratory Results WBC 7.3 x10^3/uL (4.8-10.8) 08/06/21 04:40 RBC 4.25 10^6/uL (4.70-6.10) L 08/06/21 04:40 Hgb 13.4 g/dL (14.0-18.0) L 08/06/21 04:40 Hct 42.4 % (42.0-52.0) 08/06/21 04:40 MCV 99.8 fL (80.0-94.0) H 08/06/21 04:40 MCH 31.5 pg (27.0-31.0) H 08/06/21 04:40 MCHC 31.6 g/dL (32.0-36.0) L 08/06/21 04:40 RDW 17.9 % (12.0-15.0) H 08/06/21 04:40 Plt Count 158 10^3/uL (130-450) 08/06/21 04:40 MPV 11.5 fL (7.4-11.4) H 08/06/21 04:40 Neut # (Auto) 5.6 10^3/uL (1.5-6.6) 08/06/21 04:40 Lymph # (Auto) 0.8 10^3/uL (1.5-3.5) L 08/06/21 04:40 [place] # (Auto) 0.8 10^3/uL (0.0-1.0) 08/06/21 04:40 Eos # (Auto) 0.1 10^3/uL (0.0-0.7) 08/06/21 04:40 Baso # (Auto) 0.1 10^3/uL (0.0-0.1) 08/06/21 04:40 Absolute Nucleated RBC 0.00 x10^3/uL 08/06/21 04:40 Nucleated RBC % 0.0 /100WBC 08/06/21 04:40 PT 13.2 secs (9.9-12.6) H 08/02/21 16:19 INR 1.2 (0.8-1.2) 08/02/21 16:19 Sodium 132 mmol/L (135-145) L 08/06/21 04:40 Potassium 3.9 mmol/L (3.5-5.0) 08/06/21 04:40 Chloride 87 mmol/L (101-111) L 08/06/21 04:40 Carbon Dioxide 34 mmol/L (21-32) H 08/06/21 04:40 Anion Gap 11.0 (6-13) 08/06/21 04:40 BUN 27 mg/dL (6-20) H 08/06/21 04:40 Creatinine 1.3 mg/dL (0.6-1.2) H 08/06/21 04:40 Estimated GFR (MDRD) 56 (>89) L 08/06/21 04:40 Glucose 96 mg/dL (70-100) 08/06/21 04:40 Calcium 8.6 mg/dL (8.5-10.3) 08/06/21 04:40 Phosphorus 3.5 mg/dL (2.5-4.6) 08/06/21 04:40 Magnesium 1.9 mg/dL (1.7-2.8) 08/06/21 04:40 Total Bilirubin 0.8 mg/dL (0.2-1.0) 08/04/21 05:01 AST 19 IU/L (10-42) 08/04/21 05:01 ALT 10 IU/L (10-60) 08/04/21 05:01 Alkaline Phosphatase 50 IU/L (42-121) 08/04/21 05:01 Troponin I High Sens 109.2 ng/L (2.3-19.7) H* 08/04/21 05:01 B-Natriuretic Peptide 2920 pg/mL (5-100) H 08/06/21 04:40 Total Protein 5.9 g/dL (6.7-8.2) L 08/04/21 05:01 Albumin 3.5 g/dL (3.2-5.5) 08/06/21 04:40 Globulin 2.6 g/dL (2.1-4.2) 08/04/21 05:01 Albumin/Globulin Ratio 1.3 (1.0-2.2) 08/04/21 05:01 Lipase 47 U/L (22-51) 08/02/21 16:19 Last Dose Date UNK 08/02/21 18:59 Last Dose Time UNK 08/02/21 18:59 Digoxin 0.6 ng/mL 08/02/21 18:59 SARS-CoV-2 (PCR) NOT DETECTED 08/02/21 16:57 - Procedures Procedures: Procedures COLONOSCOPY (08/16/13) INSERTION OF INFUSION DEV INTO SUP VENA CAVA, PERC APPROACH (01/18/21) ABX Reporting Has patient been on IV antibiotics over the past 48 hours?: No
[2021-08-06] MEDS: GABAPENTIN 300 MG CAPSULE PO SCH ×3 (09:44→21:17)
[2021-08-06] MEDS: THIAMINE 100 MG TABLET PO SCH (09:44)
[2021-08-06] MEDS: NICOTINE 14 MG PATCH TOP SCH (09:44)
[2021-08-06] MEDS: MAGNESIUM OXIDE 400 MG TABLET PO SCH ×3 (09:44→17:15)
[2021-08-06] MEDS: lisinopriL 5 MG TABLET PO SCH (09:45)
[2021-08-06] MEDS: APIXABAN 5 MG TABLET PO SCH ×2 (09:45→21:16)
[2021-08-06] MEDS: CITALOPRAM 10 MG TABLET PO SCH (09:45)
[2021-08-06] MEDS: metOLazone 2.5 MG TABLET PO SCH (09:45)
[2021-08-06] MEDS: DIGOXIN 125 MCG TABLET PO SCH (09:45)
[2021-08-06] MEDS: SPIRONOLACTONE 25 MG TABLET PO SCH (09:45)
[2021-08-06] MEDS: MULTIVITAMIN TABLET PO SCH (09:45)
[2021-08-06] MEDS: METOPROLOL SUCCINATE 25 MG TABLET PO SCH (09:45)
[2021-08-06] MEDS: FUROSEMIDE 40 MG/4 ML VIAL IVP SCH (09:46)
[2021-08-06] MEDS: SODIUM CHLORIDE FLUSH 0.9% 10 ML SYRINGE IVP SCH ×2 (09:46→17:15)
--- NOTE | 2021-08-06 12:06 | XRAY Report ---
PROCEDURE: Chest 1 View X-Ray INDICATIONS: Chest Pain TECHNIQUE: One view of the chest was acquired. COMPARISON: Chest radiograph 06/30/2021, 04/11/2021. CT angiogram of the chest 01/21/2021. FINDINGS: Surgical changes and devices: None. Lungs and pleura: Approximately 2.1 cm nodule projects over the left upper lung, likely corresponding to a left upper lobe nodule on prior CT. There are minimal streaky bibasilar opacities. No pleural e ffusion. No pneumothorax. Mediastinum: Cardiac silhouette is mildly enlarged. No definite pulmonary vascular congestion. Bones and chest wall: No suspicious bony lesions. Overlying soft tissues appear unremarkable. IMPRESSION: 1. Minimal bibasilar pulmonary opacities are present, suspect atelectasis but aspiration or pneumonia are also possible. 2. Redemonstrated left upper lobe pulmonary nodule. It is difficult to determine if it is increased i n size given differences in modality. Follow-up chest CT is recommended for reevaluation if not perfo rmed since 01/21/2021. 3. Cardiac silhouette is enlarged without evidence of pulmonary vascular congestion. Reviewed by: Joce Tinoco MD on 08/02/2021 5:13 PM PDT Approved by: Joce Tinoco MD on 08/02/2021 5:13 PM PDT Station ID: [id number]
[2021-08-06] MEDS: HYDROcod/ACETAM 5/325 MG TABLET PO PRN ×2 (16:06→17:17)
[2021-08-06] MEDS: ATORVASTATIN 40 MG TABLET PO SCH (21:17)
[2021-08-07] MEDS: HYDROcod/ACETAM 5/325 MG TABLET PO PRN ×5 (00:32→20:00)
[2021-08-07] MEDS: SODIUM CHLORIDE FLUSH 0.9% 10 ML SYRINGE IVP SCH ×3 (04:37→16:19)
[2021-08-07] MEDS: metOLazone 2.5 MG TABLET PO SCH ×2 (05:01→13:18)
[2021-08-07] MEDS: PANTOPRAZOLE 40 MG TABLET PO SCH (05:55)
[2021-08-07] MEDS: MIDODRINE 2.5 MG TABLET PO SCH ×3 (05:56→18:00)
[2021-08-07] MEDS: FUROSEMIDE 40 MG/4 ML VIAL IVP SCH ×2 (05:56→14:33)
[2021-08-07 06:05] LABS: BASOPHILS # (AUTO) 0.1 10^3/uL (0.0-0.1); BASOPHILS % (AUTO) 0.9 %; EOSINOPHILS # (AUTO) 0.1 10^3/uL (0.0-0.7); EOSINOPHILS % (AUTO) 1.5 %; HCT - HEMATOCRIT 40.7 % (42.0-52.0); HGB - HEMOGLOBIN 13.3 g/dL (14.0-18.0); LYMPHOCYTES % (AUTO) 13.5 %; MEAN CORPUSCULAR HEMOGLOBIN 31.9 pg (27.0-31.0); MEAN CORPUSCULAR HGB CONC 32.7 g/dL (32.0-36.0); MEAN CORPUSCULAR VOLUME 97.6 fL (80.0-94.0); MEAN PLATELET VOLUME 11.3 fL (7.4-11.4); NEUTROPHILS # (AUTO) 5.2 10^3/uL (1.5-6.6); NEUTROPHILS % (AUTO) 70.7 %; PLT - PLATELET COUNT 154 10^3/uL (130-450); RED BLOOD COUNT 4.17 10^6/uL (4.70-6.10); RED CELL DISTRIBUTION WIDTH 17.5 % (12.0-15.0); WHITE BLOOD COUNT 7.4 x10^3/uL (4.8-10.8)
[2021-08-07 06:19] LABS: ALBUMIN 3.4 g/dL (3.2-5.5); CALCIUM 8.9 mg/dL (8.5-10.3); CREATININE 1.1 mg/dL (0.6-1.2); PHOSPHORUS 3.6 mg/dL (2.5-4.6); POTASSIUM 4.3 mmol/L (3.5-5.0)
[2021-08-07] MEDS: MAGNESIUM OXIDE 400 MG TABLET PO SCH ×3 (08:18→16:19)
[2021-08-07] MEDS: MULTIVITAMIN TABLET PO SCH (08:18)
[2021-08-07] MEDS: METOPROLOL SUCCINATE 25 MG TABLET PO SCH (08:19)
[2021-08-07] MEDS: THIAMINE 100 MG TABLET PO SCH (08:19)
[2021-08-07] MEDS: APIXABAN 5 MG TABLET PO SCH ×2 (08:19→20:01)
[2021-08-07] MEDS: CITALOPRAM 10 MG TABLET PO SCH (08:19)
[2021-08-07] MEDS: GABAPENTIN 300 MG CAPSULE PO SCH ×3 (08:19→20:00)
[2021-08-07] MEDS: lisinopriL 5 MG TABLET PO SCH (08:19)
[2021-08-07] MEDS: SPIRONOLACTONE 25 MG TABLET PO SCH (08:19)
[2021-08-07] MEDS: DIGOXIN 125 MCG TABLET PO SCH (08:19)
[2021-08-07] MEDS: NICOTINE 14 MG PATCH TOP SCH (08:20)
[2021-08-07] MEDS ORDERED: BACITRACIN ZINC OINT 1 PACKET TOP PRN (11:03)
--- NOTE | 2021-08-07 13:51 | PROVIDER PROGRESS NOTE ---
Assessment/Plan - Problem List (1) Acute on chronic systolic and diastolic heart failure, NYHA class 4 Assessment/Plan: Last echo on 01/21/2021 showed overall left ventricular systolic function was severely impaired with a left ventricular ejection fraction of less than 20%. Due to patient being homeless and noncompliant with medical care he was not a candidate for an AICD device. BNP has been as high as 5821. Today BNP was 3929. Respiratory status improved with diuresis. Oxygen saturation between 91 and 100% on room air. Systolic blood pressure between 100-124. Lasix 40 mg IV twice daily. Metoprolol succinate 25 mg p.o. daily. Metolazone 2.5 mg p.o. twice daily. Spironolactone 12.5 mg p.o. daily. Lisinopril 2.5 mg p.o. daily. Digoxin 125 mcg p.o. daily. (2) COPD (chronic obstructive pulmonary disease) with emphysema Qualifiers: Emphysema type: unspecified Qualified Code(s): J43.9 - Emphysema, unspecified Assessment/Plan: Oxygen Saturation is between 91 and 100% on room air. Patient is breathing comfortably. DuoNeb every 4 hours as needed. Atrovent 0.5 mg inhalation every 6 hours as needed. (4) Chronic ulcer of leg Qualifiers: Laterality: left Assessment/Plan: Patient has underlying peripheral vascular disease. Also Lower extremity edema from CHF contributing. Wound dressing daily by nursing staff. Will reach out to the [facility] wound clinic for assistance (5) ESTEVAN (acute kidney injury) Assessment/Plan: Likely secondary to CHF exacerbation. Anticipate improvement with diuresis. Returning today is 1.3. Last January creatinine was as high as 2.4. (7) Homelessness Assessment/Plan: He resides at the homeless nursing home in [place]. (2) COPD (chronic obstructive pulmonary disease) with emphysema Qualifiers: Emphysema type: unspecified Qualified Code(s): J43.9 - Emphysema, unspecified (4) Chronic ulcer of leg Qualifiers: Laterality: left - Current Meds Current Meds: Current Medications Generic Name Dose Route Start Last Admin Trade Name Freq PRN Reason Stop Dose Admin Acetaminophen 650 mg 08/02/21 18:31 08/05/21 08:51 Acetaminophen 325 Mg Tablet PO 650 mg Q4HR PRN Administration Pain 1 to 4, or Fever Hydrocodone Bitart/Acetaminophen 2 tab 08/05/21 09:05 08/07/21 11:54 Hydrocod/Acetam 5/325 Mg Tablet PO 2 tab Q4HR PRN Administration Pain 5 to 7 Albuterol/Ipratropium 3 ml 08/02/21 23:35 08/05/21 08:13 Ipratropium/Albuterol 3 Ml Neb INH 3 ml Q4HR PRN Administration Wheezing Apixaban 5 mg 08/02/21 21:00 08/07/21 08:19 Apixaban 5 Mg Tablet PO 5 mg BID YONATHAN Administration Atorvastatin Calcium 40 mg 08/03/21 21:00 08/06/21 21:17 Atorvastatin 40 Mg Tablet PO 40 mg QPM YONATHAN Administration Citalopram Hydrobromide 20 mg 08/06/21 09:00 08/07/21 08:19 Citalopram 10 Mg Tablet PO 20 mg DAILY YONATHAN Administration Digoxin 125 mcg 08/03/21 09:00 08/07/21 08:19 Digoxin 125 Mcg Tablet PO 125 mcg DAILY YONATHAN Administration Furosemide 40 mg 08/07/21 06:00 08/07/21 05:56 Furosemide 40 Mg/4 Ml Vial IVP 40 mg BIDDIURETIC YONATHAN Administration Gabapentin 600 mg 08/03/21 21:00 08/06/21 21:17 Gabapentin 300 Mg Capsule PO 600 mg QPM YONATHAN Administration Gabapentin 300 mg 08/03/21 11:32 08/07/21 08:19 Gabapentin 300 Mg Capsule PO 300 mg 0800,1400 YONATHAN Administration Lisinopril 2.5 mg 08/04/21 10:00 08/07/21 08:19 Lisinopril 5 Mg Tablet PO 2.5 mg DAILY YONATHAN Administration Magnesium Oxide 800 mg 08/05/21 08:00 08/07/21 11:53 Magnesium Oxide 400 Mg Tablet PO 800 mg TIDWM YONATHAN Administration Metolazone 2.5 mg 08/07/21 05:30 08/07/21 13:18 Metolazone 2.5 Mg Tablet PO 2.5 mg 0530,1330 YONATHAN Administration Metoprolol Succinate 25 mg 08/03/21 09:00 08/07/21 08:19 Metoprolol Succinate 25 Mg Tablet PO 25 mg DAILY YONATHAN Administration Midodrine 5 mg 08/03/21 18:00 08/07/21 11:53 Midodrine 2.5 Mg Tablet PO 5 mg 0600,1200,1800 YONATHAN Administration Multi-Ingredient Mouthwash/Gargle 30 ml 08/03/21 14:10 08/03/21 15:57 Gi Cocktail 120 Ml Bottle PO 30 ml Q4H PRN Administration Abdominal Pain Multivitamins 1 tab 08/03/21 08:00 08/07/21 08:18 Multivitamin Tablet PO 1 tab DAILYWM YONATHAN Administration Nicotine 1 patch 08/03/21 09:00 08/07/21 08:20 Nicotine 14 Mg Patch TOP Not Given DAILY YONATHAN Pantoprazole Sodium 40 mg 08/03/21 07:00 08/07/21 05:55 Pantoprazole 40 Mg Tablet PO 40 mg QDAC YONATHAN Administration Prochlorperazine Edisylate 10 mg 08/02/21 18:31 08/04/21 11:58 Prochlorperazine 10 Mg/2 Ml Vial IVP 10 mg Q6HR PRN Administration Nausea / Vomiting Sodium Chloride 10 ml 08/03/21 01:00 08/07/21 08:20 Sodium Chloride Flush 0.9% 10 Ml Syringe IVP 10 ml 0100,0900,1700 YONATHAN Administration Sodium Chloride 10 ml 08/02/21 18:31 08/05/21 20:40 Sodium Chloride Flush 0.9% 10 Ml Syringe IVP 10 ml PRN PRN Administration NEEDED PER PROVIDER ORDERS Spironolactone 12.5 mg 08/03/21 09:00 08/07/21 08:19 Spironolactone 25 Mg Tablet PO 12.5 mg DAILY YONATHAN Administration Thiamine HCl 100 mg 08/03/21 09:00 08/07/21 08:19 Thiamine 100 Mg Tablet PO 100 mg DAILY YONATHAN Administration - Lab Result Fish Bone Diagrams: 08/07/21 04:28 08/07/21 04:28 - Additional Planning My Orders: My Active Orders 08/07/21 11:03 Bacitracin Zinc Oint [Bacitracin] 1 packet TOP PRN PRN Subjective - Subjective Patient Reports: Other (Resting comfortably in bed. Breathing comfortably on room air. He reported coughing up blood X1. Lower extremity edema continues to improve.) Objective Vital Signs: Vital Signs - 24 hr 08/06/21 08/07/21 08/07/21 16:22 00:08 05:03 Temperature 36.7 C 36.5 C Heart Rate [ 70 64 82 Brachial] Respiratory 16 14 Rate Blood Pressure 118/72 108/75 105/83 H [Right Brachial artery] O2 Saturation 91 L 94 08/07/21 08/07/21 08:17 13:19 Temperature 36.3 C L Heart Rate [ 77 64 Brachial] Respiratory 16 Rate Blood Pressure 111/81 H 106/69 [Right Brachial artery] O2 Saturation 96 Oxygen O2 Source Room air I&O (Last 24 Hrs): Intake and Output Totals x24h 08/05/21 08/06/21 08/07/21 23:59 23:59 23:59 Intake Total 765 490 240 Output Total 1575 3300 1450 Balance -810 -2810 -1210 Comments/Notes: General: Alert, Oriented x3, Mild distress HEENT: PERRLA, EOMI Neck: Supple, No JVD Neuro: Alert, Non Focal, Oriented Times 3 Cardiovascular: Regular rate, No murmurs Respiratory: Chest non-tender, No respiratory distress, Other (Coars ebreath sounds) Abdomen: Normal bowel sounds, Soft, No tenderness, No masses Extremities: Other (2+ edema, dusky appearing lower extremities) - Results Results: Laboratory Results WBC 7.4 x10^3/uL (4.8-10.8) 08/07/21 04:28 RBC 4.17 10^6/uL (4.70-6.10) L 08/07/21 04:28 Hgb 13.3 g/dL (14.0-18.0) L 08/07/21 04:28 Hct 40.7 % (42.0-52.0) L 08/07/21 04:28 MCV 97.6 fL (80.0-94.0) H 08/07/21 04:28 MCH 31.9 pg (27.0-31.0) H 08/07/21 04:28 MCHC 32.7 g/dL (32.0-36.0) 08/07/21 04:28 RDW 17.5 % (12.0-15.0) H 08/07/21 04:28 Plt Count 154 10^3/uL (130-450) 08/07/21 04:28 MPV 11.3 fL (7.4-11.4) 08/07/21 04:28 Neut # (Auto) 5.2 10^3/uL (1.5-6.6) 08/07/21 04:28 Lymph # (Auto) 1.0 10^3/uL (1.5-3.5) L 08/07/21 04:28 [place] # (Auto) 1.0 10^3/uL (0.0-1.0) 08/07/21 04:28 Eos # (Auto) 0.1 10^3/uL (0.0-0.7) 08/07/21 04:28 Baso # (Auto) 0.1 10^3/uL (0.0-0.1) 08/07/21 04:28 Absolute Nucleated RBC 0.00 x10^3/uL 08/07/21 04:28 Nucleated RBC % 0.0 /100WBC 08/07/21 04:28 PT 13.2 secs (9.9-12.6) H 08/02/21 16:19 INR 1.2 (0.8-1.2) 08/02/21 16:19 Sodium 136 mmol/L (135-145) 08/07/21 04:28 Potassium 4.3 mmol/L (3.5-5.0) 08/07/21 04:28 Chloride 89 mmol/L (101-111) L 08/07/21 04:28 Carbon Dioxide 35 mmol/L (21-32) H 08/07/21 04:28 Anion Gap 12.0 (6-13) 08/07/21 04:28 BUN 26 mg/dL (6-20) H 08/07/21 04:28 Creatinine 1.1 mg/dL (0.6-1.2) 08/07/21 04:28 Estimated GFR (MDRD) 68 (>89) L 08/07/21 04:28 Glucose 91 mg/dL (70-100) 08/07/21 04:28 POC Whole Bld Glucose 107 mg/dL (70 - 100) H 08/03/21 07:23 Calcium 8.9 mg/dL (8.5-10.3) 08/07/21 04:28 Phosphorus 3.6 mg/dL (2.5-4.6) 08/07/21 04:28 Magnesium 1.9 mg/dL (1.7-2.8) 08/06/21 04:40 Total Bilirubin 0.8 mg/dL (0.2-1.0) 08/04/21 05:01 AST 19 IU/L (10-42) 08/04/21 05:01 ALT 10 IU/L (10-60) 08/04/21 05:01 Alkaline Phosphatase 50 IU/L (42-121) 08/04/21 05:01 Troponin I High Sens 109.2 ng/L (2.3-19.7) H* 08/04/21 05:01 B-Natriuretic Peptide 3929 pg/mL (5-100) H 08/07/21 04:28 Total Protein 5.9 g/dL (6.7-8.2) L 08/04/21 05:01 Albumin 3.4 g/dL (3.2-5.5) 08/07/21 04:28 Globulin 2.6 g/dL (2.1-4.2) 08/04/21 05:01 Albumin/Globulin Ratio 1.3 (1.0-2.2) 08/04/21 05:01 Lipase 47 U/L (22-51) 08/02/21 16:19 Last Dose Date UNK 08/02/21 18:59 Last Dose Time UNK 08/02/21 18:59 Digoxin 0.6 ng/mL 08/02/21 18:59 SARS-CoV-2 (PCR) NOT DETECTED 08/02/21 16:57 - Procedures Procedures: Procedures COLONOSCOPY (08/16/13) INSERTION OF INFUSION DEV INTO SUP VENA CAVA, PERC APPROACH (01/18/21) ABX Reporting Has patient been on IV antibiotics over the past 48 hours?: No
[2021-08-07] MEDS: ATORVASTATIN 40 MG TABLET PO SCH (20:01)
[2021-08-08] MEDS: SODIUM CHLORIDE FLUSH 0.9% 10 ML SYRINGE IVP SCH ×3 (01:39→16:06)
[2021-08-08] MEDS: metOLazone 2.5 MG TABLET PO SCH ×2 (04:43→14:10)
[2021-08-08] MEDS: HYDROcod/ACETAM 5/325 MG TABLET PO PRN ×4 (04:43→20:30)
[2021-08-08] MEDS: FUROSEMIDE 40 MG/4 ML VIAL IVP SCH ×2 (05:23→14:10)
[2021-08-08] MEDS: MIDODRINE 2.5 MG TABLET PO SCH ×3 (05:23→18:55)
[2021-08-08] MEDS: PANTOPRAZOLE 40 MG TABLET PO SCH (05:23)
[2021-08-08 05:44] LABS: BASOPHILS # (AUTO) 0.1 10^3/uL (0.0-0.1); BASOPHILS % (AUTO) 0.8 %; EOSINOPHILS # (AUTO) 0.1 10^3/uL (0.0-0.7); EOSINOPHILS % (AUTO) 1.7 %; HCT - HEMATOCRIT 42.4 % (42.0-52.0); HGB - HEMOGLOBIN 13.8 g/dL (14.0-18.0); LYMPHOCYTES # (AUTO) 1.3 10^3/uL (1.5-3.5); LYMPHOCYTES % (AUTO) 16.7 %; MEAN CORPUSCULAR HEMOGLOBIN 31.1 pg (27.0-31.0); MEAN CORPUSCULAR HGB CONC 32.5 g/dL (32.0-36.0); MEAN CORPUSCULAR VOLUME 95.5 fL (80.0-94.0); MEAN PLATELET VOLUME 11.2 fL (7.4-11.4); MONOCYTES # (AUTO) 0.9 10^3/uL (0.0-1.0); MONOCYTES % (AUTO) 12.6 %; NEUTROPHILS # (AUTO) 5.1 10^3/uL (1.5-6.6); NEUTROPHILS % (AUTO) 67.8 %; PLT - PLATELET COUNT 183 10^3/uL (130-450); RED BLOOD COUNT 4.44 10^6/uL (4.70-6.10); RED CELL DISTRIBUTION WIDTH 17.2 % (12.0-15.0); WHITE BLOOD COUNT 7.5 x10^3/uL (4.8-10.8)
[2021-08-08] MEDS: NICOTINE 14 MG PATCH TOP SCH (08:19)
[2021-08-08] MEDS: GABAPENTIN 300 MG CAPSULE PO SCH ×3 (08:20→20:30)
[2021-08-08] MEDS: CITALOPRAM 10 MG TABLET PO SCH (08:20)
[2021-08-08] MEDS: THIAMINE 100 MG TABLET PO SCH (08:20)
[2021-08-08] MEDS: APIXABAN 5 MG TABLET PO SCH ×2 (08:20→20:30)
[2021-08-08] MEDS: MAGNESIUM OXIDE 400 MG TABLET PO SCH ×3 (08:20→16:06)
[2021-08-08] MEDS: SPIRONOLACTONE 25 MG TABLET PO SCH (08:20)
[2021-08-08] MEDS: MULTIVITAMIN TABLET PO SCH (08:20)
[2021-08-08] MEDS: DIGOXIN 125 MCG TABLET PO SCH (08:22)
[2021-08-08] MEDS: METOPROLOL SUCCINATE 25 MG TABLET PO SCH (08:22)
[2021-08-08] MEDS: lisinopriL 5 MG TABLET PO SCH (08:25)
--- NOTE | 2021-08-08 08:41 | PROVIDER PROGRESS NOTE ---
Assessment/Plan - Problem List (1) Acute on chronic systolic and diastolic heart failure, NYHA class 4 Assessment/Plan: Patient continues to improve daily Last echo on 01/21/2021 showed overall left ventricular systolic function was severely impaired with a left ventricular ejection fraction of less than 20%. Due to patient being homeless and noncompliant with medical care he was not a candidate for an AICD device. BNP has been as high as 5821. Today BNP was 3490. Respiratory status improved with diuresis. Oxygen saturation between 91 and 100% on room air. Systolic blood pressure between 100-124. Lasix 40 mg IV twice daily. Metoprolol succinate 25 mg p.o. daily. Metolazone 2.5 mg p.o. twice daily. Spironolactone 12.5 mg p.o. daily. Lisinopril 2.5 mg p.o. daily. Digoxin 125 mcg p.o. daily. (2) COPD (chronic obstructive pulmonary disease) with emphysema Qualifiers: Emphysema type: unspecified Qualified Code(s): J43.9 - Emphysema, unspecified Assessment/Plan: Oxygen Saturation is between 91 and 100% on room air. Patient is breathing comfortably. DuoNeb every 4 hours as needed. Atrovent 0.5 mg inhalation every 6 hours as needed. (4) Chronic ulcer of leg Qualifiers: Laterality: left Assessment/Plan: Patient has underlying peripheral vascular disease. Also Lower extremity edema from CHF contributing. Wound dressing daily by nursing staff. Will reach out to the [facility] wound clinic for assistance (5) ESTEVAN (acute kidney injury) Assessment/Plan: Likely secondary to CHF exacerbation. Anticipate improvement with diuresis. Creatinine today is 1.1. Last January creatinine was as high as 2.4. (7) Homelessness Assessment/Plan: He resides at the homeless group home in [place]. (2) COPD (chronic obstructive pulmonary disease) with emphysema Qualifiers: Emphysema type: unspecified Qualified Code(s): J43.9 - Emphysema, unspecified (4) Chronic ulcer of leg Qualifiers: Laterality: left (2) COPD (chronic obstructive pulmonary disease) with emphysema Qualifiers: Emphysema type: unspecified Qualified Code(s): J43.9 - Emphysema, unspecified (4) Chronic ulcer of leg Qualifiers: Laterality: left - Current Meds Current Meds: Current Medications Generic Name Dose Route Start Last Admin Trade Name Freq PRN Reason Stop Dose Admin Acetaminophen 650 mg 08/02/21 18:31 08/05/21 08:51 Acetaminophen 325 Mg Tablet PO 650 mg Q4HR PRN Administration Pain 1 to 4, or Fever Hydrocodone Bitart/Acetaminophen 2 tab 08/05/21 09:05 08/08/21 04:43 Hydrocod/Acetam 5/325 Mg Tablet PO 2 tab Q4HR PRN Administration Pain 5 to 7 Albuterol/Ipratropium 3 ml 08/02/21 23:35 08/05/21 08:13 Ipratropium/Albuterol 3 Ml Neb INH 3 ml Q4HR PRN Administration Wheezing Apixaban 5 mg 08/02/21 21:00 08/08/21 08:20 Apixaban 5 Mg Tablet PO 5 mg BID YONATHAN Administration Atorvastatin Calcium 40 mg 08/03/21 21:00 08/07/21 20:01 Atorvastatin 40 Mg Tablet PO 40 mg QPM YONATHAN Administration Bacitracin 1 packet 08/07/21 11:03 08/07/21 14:33 Bacitracin Zinc Oint 1 Packet TOP 1 packet PRN PRN Administration Skin Care Citalopram Hydrobromide 20 mg 08/06/21 09:00 08/08/21 08:20 Citalopram 10 Mg Tablet PO 20 mg DAILY YONATHAN Administration Digoxin 125 mcg 08/03/21 09:00 08/08/21 08:22 Digoxin 125 Mcg Tablet PO 125 mcg DAILY YONATHAN Administration Furosemide 40 mg 08/07/21 06:00 08/08/21 05:23 Furosemide 40 Mg/4 Ml Vial IVP 40 mg BIDDIURETIC YONATHAN Administration Gabapentin 600 mg 08/03/21 21:00 08/07/21 20:00 Gabapentin 300 Mg Capsule PO 600 mg QPM YONATHAN Administration Gabapentin 300 mg 08/03/21 11:32 08/08/21 08:20 Gabapentin 300 Mg Capsule PO 300 mg 0800,1400 YONATHAN Administration Lisinopril 2.5 mg 08/04/21 10:00 08/08/21 08:25 Lisinopril 5 Mg Tablet PO Not Given DAILY YONATHAN Magnesium Oxide 800 mg 08/05/21 08:00 08/08/21 08:20 Magnesium Oxide 400 Mg Tablet PO 800 mg TIDWM YONATHAN Administration Metolazone 2.5 mg 08/07/21 05:30 08/08/21 04:43 Metolazone 2.5 Mg Tablet PO 2.5 mg 0530,1330 YONATHAN Administration Metoprolol Succinate 25 mg 08/03/21 09:00 08/08/21 08:22 Metoprolol Succinate 25 Mg Tablet PO 25 mg DAILY YONATHAN Administration Midodrine 5 mg 08/03/21 18:00 08/08/21 05:23 Midodrine 2.5 Mg Tablet PO 5 mg 0600,1200,1800 YONATHAN Administration Multi-Ingredient Mouthwash/Gargle 30 ml 08/03/21 14:10 08/03/21 15:57 Gi Cocktail 120 Ml Bottle PO 30 ml Q4H PRN Administration Abdominal Pain Multivitamins 1 tab 08/03/21 08:00 08/08/21 08:20 Multivitamin Tablet PO 1 tab DAILYWM YONATHAN Administration Nicotine 1 patch 08/03/21 09:00 08/08/21 08:19 Nicotine 14 Mg Patch TOP Not Given DAILY YONATHAN Pantoprazole Sodium 40 mg 08/03/21 07:00 08/08/21 05:23 Pantoprazole 40 Mg Tablet PO 40 mg QDAC YONATHAN Administration Prochlorperazine Edisylate 10 mg 08/02/21 18:31 08/04/21 11:58 Prochlorperazine 10 Mg/2 Ml Vial IVP 10 mg Q6HR PRN Administration Nausea / Vomiting Sodium Chloride 10 ml 08/03/21 01:00 08/08/21 08:26 Sodium Chloride Flush 0.9% 10 Ml Syringe IVP 10 ml 0100,0900,1700 YONATHAN Administration Sodium Chloride 10 ml 08/02/21 18:31 08/05/21 20:40 Sodium Chloride Flush 0.9% 10 Ml Syringe IVP 10 ml PRN PRN Administration NEEDED PER PROVIDER ORDERS Spironolactone 12.5 mg 08/03/21 09:00 08/08/21 08:20 Spironolactone 25 Mg Tablet PO 12.5 mg DAILY YONATHAN Administration Thiamine HCl 100 mg 08/03/21 09:00 08/08/21 08:20 Thiamine 100 Mg Tablet PO 100 mg DAILY YONATHAN Administration - Lab Result Fish Bone Diagrams: 08/08/21 04:36 08/07/21 04:28 - Additional Planning My Orders: My Active Orders 08/07/21 11:03 Bacitracin Zinc Oint [Bacitracin] 1 packet TOP PRN PRN Subjective - Subjective Patient Reports: Other (Resting comfortably in bed. Has not had any more bloody sputum. Denies any significant complaint.) Objective Vital Signs: Vital Signs - 24 hr 08/07/21 08/07/21 08/08/21 13:19 15:47 00:00 Temperature 36.8 C 36.5 C Heart Rate [ 64 81 62 Brachial] Heart Rate [ Monitoring electrodes] Respiratory 17 16 Rate Blood Pressure 106/69 104/73 109/74 [Right Brachial artery] O2 Saturation 94 100 08/08/21 08/08/21 04:50 08:00 Temperature 36.5 C Heart Rate [ 63 Brachial] Heart Rate [ 72 Monitoring electrodes] Respiratory 16 Rate Blood Pressure 112/73 104/79 [Right Brachial artery] O2 Saturation 100 Oxygen O2 Source Room air I&O (Last 24 Hrs): Intake and Output Totals x24h 08/06/21 08/07/21 08/08/21 23:59 23:59 23:59 Intake Total 490 810 Output Total 3300 2000 Balance -2810 -1190 Comments/Notes: General: Alert, Oriented x3, Mild distress HEENT: PERRLA, EOMI Neck: Supple, No JVD Neuro: Alert, Non Focal, Oriented Times 3 Cardiovascular: Regular rate, No murmurs Respiratory: Chest non-tender, No respiratory distress, Other (Coarse breath sounds) Abdomen: Normal bowel sounds, Soft, No tenderness, No masses Extremities: Other (2+ edema, dusky appearing lower extremities) - Results Results: Laboratory Results WBC 7.5 x10^3/uL (4.8-10.8) 08/08/21 04:36 RBC 4.44 10^6/uL (4.70-6.10) L 08/08/21 04:36 Hgb 13.8 g/dL (14.0-18.0) L 08/08/21 04:36 Hct 42.4 % (42.0-52.0) 08/08/21 04:36 MCV 95.5 fL (80.0-94.0) H 08/08/21 04:36 MCH 31.1 pg (27.0-31.0) H 08/08/21 04:36 MCHC 32.5 g/dL (32.0-36.0) 08/08/21 04:36 RDW 17.2 % (12.0-15.0) H 08/08/21 04:36 Plt Count 183 10^3/uL (130-450) 08/08/21 04:36 MPV 11.2 fL (7.4-11.4) 08/08/21 04:36 Neut # (Auto) 5.1 10^3/uL (1.5-6.6) 08/08/21 04:36 Lymph # (Auto) 1.3 10^3/uL (1.5-3.5) L 08/08/21 04:36 [place] # (Auto) 0.9 10^3/uL (0.0-1.0) 08/08/21 04:36 Eos # (Auto) 0.1 10^3/uL (0.0-0.7) 08/08/21 04:36 Baso # (Auto) 0.1 10^3/uL (0.0-0.1) 08/08/21 04:36 Absolute Nucleated RBC 0.00 x10^3/uL 08/08/21 04:36 Nucleated RBC % 0.0 /100WBC 08/08/21 04:36 PT 13.2 secs (9.9-12.6) H 08/02/21 16:19 INR 1.2 (0.8-1.2) 08/02/21 16:19 Sodium 136 mmol/L (135-145) 08/07/21 04:28 Potassium 4.3 mmol/L (3.5-5.0) 08/07/21 04:28 Chloride 89 mmol/L (101-111) L 08/07/21 04:28 Carbon Dioxide 35 mmol/L (21-32) H 08/07/21 04:28 Anion Gap 12.0 (6-13) 08/07/21 04:28 BUN 26 mg/dL (6-20) H 08/07/21 04:28 Creatinine 1.1 mg/dL (0.6-1.2) 08/07/21 04:28 Estimated GFR (MDRD) 68 (>89) L 08/07/21 04:28 Glucose 91 mg/dL (70-100) 08/07/21 04:28 POC Whole Bld Glucose 107 mg/dL (70 - 100) H 08/03/21 07:23 Calcium 8.9 mg/dL (8.5-10.3) 08/07/21 04:28 Phosphorus 3.6 mg/dL (2.5-4.6) 08/07/21 04:28 Magnesium 1.9 mg/dL (1.7-2.8) 08/06/21 04:40 Total Bilirubin 0.8 mg/dL (0.2-1.0) 08/04/21 05:01 AST 19 IU/L (10-42) 08/04/21 05:01 ALT 10 IU/L (10-60) 08/04/21 05:01 Alkaline Phosphatase 50 IU/L (42-121) 08/04/21 05:01 Troponin I High Sens 109.2 ng/L (2.3-19.7) H* 08/04/21 05:01 B-Natriuretic Peptide 3490 pg/mL (5-100) H 08/08/21 04:36 Total Protein 5.9 g/dL (6.7-8.2) L 08/04/21 05:01 Albumin 3.4 g/dL (3.2-5.5) 08/07/21 04:28 Globulin 2.6 g/dL (2.1-4.2) 08/04/21 05:01 Albumin/Globulin Ratio 1.3 (1.0-2.2) 08/04/21 05:01 Lipase 47 U/L (22-51) 08/02/21 16:19 Last Dose Date UNK 08/02/21 18:59 Last Dose Time UNK 08/02/21 18:59 Digoxin 0.6 ng/mL 08/02/21 18:59 SARS-CoV-2 (PCR) NOT DETECTED 08/02/21 16:57 - Procedures Procedures: Procedures COLONOSCOPY (08/16/13) INSERTION OF INFUSION DEV INTO SUP VENA CAVA, PERC APPROACH (01/18/21) ABX Reporting Has patient been on IV antibiotics over the past 48 hours?: No
[2021-08-08] MEDS: ACETAMINOPHEN 325 MG TABLET PO PRN (11:57)
[2021-08-08] MEDS: ATORVASTATIN 40 MG TABLET PO SCH (20:30)
[2021-08-09] MEDS: SODIUM CHLORIDE FLUSH 0.9% 10 ML SYRINGE IVP SCH ×3 (01:10→17:06)
[2021-08-09] MEDS: HYDROcod/ACETAM 5/325 MG TABLET PO PRN ×4 (04:31→18:07)
[2021-08-09] MEDS: metOLazone 2.5 MG TABLET PO SCH ×2 (04:31→14:05)
[2021-08-09] MEDS: PANTOPRAZOLE 40 MG TABLET PO SCH (05:02)
[2021-08-09] MEDS: MIDODRINE 2.5 MG TABLET PO SCH ×3 (05:02→17:06)
[2021-08-09] MEDS: FUROSEMIDE 40 MG/4 ML VIAL IVP SCH ×2 (05:02→15:35)
[2021-08-09 06:11] LABS: BASOPHILS # (AUTO) 0.1 10^3/uL (0.0-0.1); BASOPHILS % (AUTO) 0.9 %; EOSINOPHILS # (AUTO) 0.1 10^3/uL (0.0-0.7); EOSINOPHILS % (AUTO) 1.3 %; HCT - HEMATOCRIT 42.5 % (42.0-52.0); HGB - HEMOGLOBIN 14.3 g/dL (14.0-18.0); LYMPHOCYTES # (AUTO) 1.3 10^3/uL (1.5-3.5); LYMPHOCYTES % (AUTO) 16.8 %; MEAN CORPUSCULAR HEMOGLOBIN 32.2 pg (27.0-31.0); MEAN CORPUSCULAR HGB CONC 33.6 g/dL (32.0-36.0); MEAN CORPUSCULAR VOLUME 95.7 fL (80.0-94.0); MEAN PLATELET VOLUME 11.2 fL (7.4-11.4); MONOCYTES # (AUTO) 0.7 10^3/uL (0.0-1.0); MONOCYTES % (AUTO) 9.8 %; NEUTROPHILS # (AUTO) 5.4 10^3/uL (1.5-6.6); NEUTROPHILS % (AUTO) 70.8 %; PLT - PLATELET COUNT 202 10^3/uL (130-450); RED BLOOD COUNT 4.44 10^6/uL (4.70-6.10); RED CELL DISTRIBUTION WIDTH 17.1 % (12.0-15.0); WHITE BLOOD COUNT 7.6 x10^3/uL (4.8-10.8)
[2021-08-09] MEDS: MAGNESIUM OXIDE 400 MG TABLET PO SCH ×3 (09:20→17:06)
[2021-08-09] MEDS: GABAPENTIN 300 MG CAPSULE PO SCH ×3 (09:20→21:15)
[2021-08-09] MEDS: CITALOPRAM 10 MG TABLET PO SCH (09:21)
[2021-08-09] MEDS: APIXABAN 5 MG TABLET PO SCH ×2 (09:21→21:15)
[2021-08-09] MEDS: DIGOXIN 125 MCG TABLET PO SCH (09:23)
[2021-08-09] MEDS: lisinopriL 5 MG TABLET PO SCH (09:24)
[2021-08-09] MEDS: METOPROLOL SUCCINATE 25 MG TABLET PO SCH (09:25)
[2021-08-09] MEDS: MULTIVITAMIN W/MINERALS TABLET PO SCH (09:26)
[2021-08-09] MEDS: NICOTINE 14 MG PATCH TOP SCH (09:26)
[2021-08-09] MEDS: SPIRONOLACTONE 25 MG TABLET PO SCH (09:30)
[2021-08-09] MEDS: THIAMINE 100 MG TABLET PO SCH (09:32)
--- NOTE | 2021-08-09 10:30 | PROVIDER PROGRESS NOTE ---
Assessment/Plan - Problem List (1) Acute on chronic systolic and diastolic heart failure, NYHA class 4 Assessment/Plan: Patient continues to improve daily Last echo on 01/21/2021 showed overall left ventricular systolic function was severely impaired with a left ventricular ejection fraction of less than 20%. Due to patient being homeless and noncompliant with medical care he was not a candidate for an AICD device. BNP has been as high as 5821. Today BNP was 3278. Respiratory status improved with diuresis. Oxygen saturation between 94 and 100% on room air. Systolic blood pressure between 100-124. Lasix 40 mg IV twice daily. Metoprolol succinate 25 mg p.o. daily. Metolazone 2.5 mg p.o. twice daily. Spironolactone 12.5 mg p.o. daily. Lisinopril 2.5 mg p.o. daily. Digoxin 125 mcg p.o. daily. (2) COPD (chronic obstructive pulmonary disease) with emphysema Qualifiers: Emphysema type: unspecified Qualified Code(s): J43.9 - Emphysema, unspecified Assessment/Plan: Oxygen Saturation is between 94 and 100% on room air. Patient is breathing comfortably. DuoNeb every 4 hours as needed. Atrovent 0.5 mg inhalation every 6 hours as needed. (4) Chronic ulcer of leg Qualifiers: Laterality: left Assessment/Plan: Patient has underlying peripheral vascular disease. Also Lower extremity edema from CHF contributing. Wound dressing daily by nursing staff. (5) ESTEVAN (acute kidney injury) Assessment/Plan: Likely secondary to CHF exacerbation. Anticipate improvement with diuresis. Creatinine today is 1.1. Last January creatinine was as high as 2.4. (7) Homelessness Assessment/Plan: He resides at the homeless custodial in [place]. (2) COPD (chronic obstructive pulmonary disease) with emphysema Qualifiers: Emphysema type: unspecified Qualified Code(s): J43.9 - Emphysema, unspecified (4) Chronic ulcer of leg Qualifiers: Laterality: left - Current Meds Current Meds: Current Medications Generic Name Dose Route Start Last Admin Trade Name Freq PRN Reason Stop Dose Admin Acetaminophen 650 mg 08/02/21 18:31 08/08/21 11:57 Acetaminophen 325 Mg Tablet PO 650 mg Q4HR PRN Administration Pain 1 to 4, or Fever Hydrocodone Bitart/Acetaminophen 2 tab 08/05/21 09:05 08/09/21 08:41 Hydrocod/Acetam 5/325 Mg Tablet PO 2 tab Q4HR PRN Administration Pain 5 to 7 Albuterol/Ipratropium 3 ml 08/02/21 23:35 08/05/21 08:13 Ipratropium/Albuterol 3 Ml Neb INH 3 ml Q4HR PRN Administration Wheezing Apixaban 5 mg 08/02/21 21:00 08/09/21 09:21 Apixaban 5 Mg Tablet PO 5 mg BID YONATHAN Administration Atorvastatin Calcium 40 mg 08/03/21 21:00 08/08/21 20:30 Atorvastatin 40 Mg Tablet PO 40 mg QPM YONATHAN Administration Bacitracin 1 packet 08/07/21 11:03 08/07/21 14:33 Bacitracin Zinc Oint 1 Packet TOP 1 packet PRN PRN Administration Skin Care Citalopram Hydrobromide 20 mg 08/06/21 09:00 08/09/21 09:21 Citalopram 10 Mg Tablet PO 20 mg DAILY YONATHAN Administration Digoxin 125 mcg 08/03/21 09:00 08/09/21 09:23 Digoxin 125 Mcg Tablet PO 125 mcg DAILY YONATHAN Administration Furosemide 40 mg 08/07/21 06:00 08/09/21 05:02 Furosemide 40 Mg/4 Ml Vial IVP 40 mg BIDDIURETIC YONATHAN Administration Gabapentin 600 mg 08/03/21 21:00 08/08/21 20:30 Gabapentin 300 Mg Capsule PO 600 mg QPM YONATHAN Administration Gabapentin 300 mg 08/03/21 11:32 08/09/21 09:20 Gabapentin 300 Mg Capsule PO 300 mg 0800,1400 YONATHAN Administration Lisinopril 2.5 mg 08/04/21 10:00 08/09/21 09:24 Lisinopril 5 Mg Tablet PO 2.5 mg DAILY YONATHAN Administration Magnesium Oxide 800 mg 08/05/21 08:00 08/09/21 09:20 Magnesium Oxide 400 Mg Tablet PO 800 mg TIDWM YONATHAN Administration Metolazone 2.5 mg 08/07/21 05:30 08/09/21 04:31 Metolazone 2.5 Mg Tablet PO 2.5 mg 0530,1330 YONATHAN Administration Metoprolol Succinate 25 mg 08/03/21 09:00 08/09/21 09:25 Metoprolol Succinate 25 Mg Tablet PO 25 mg DAILY YONATHAN Administration Midodrine 5 mg 08/03/21 18:00 08/09/21 05:02 Midodrine 2.5 Mg Tablet PO 5 mg 0600,1200,1800 YONATHAN Administration Multi-Ingredient Mouthwash/Gargle 30 ml 08/03/21 14:10 08/03/21 15:57 Gi Cocktail 120 Ml Bottle PO 30 ml Q4H PRN Administration Abdominal Pain Multivitamins/Minerals 1 tab 08/09/21 09:00 08/09/21 09:26 Multivitamin W/Minerals Tablet PO 1 tab DAILYWM YONATHAN Administration Nicotine 1 patch 08/03/21 09:00 08/09/21 09:26 Nicotine 14 Mg Patch TOP Not Given DAILY YONATHAN Pantoprazole Sodium 40 mg 08/03/21 07:00 08/09/21 05:02 Pantoprazole 40 Mg Tablet PO 40 mg QDAC YONATHAN Administration Prochlorperazine Edisylate 10 mg 08/02/21 18:31 08/04/21 11:58 Prochlorperazine 10 Mg/2 Ml Vial IVP 10 mg Q6HR PRN Administration Nausea / Vomiting Sodium Chloride 10 ml 08/03/21 01:00 08/09/21 09:30 Sodium Chloride Flush 0.9% 10 Ml Syringe IVP 10 ml 0100,0900,1700 YONATHAN Administration Sodium Chloride 10 ml 08/02/21 18:31 08/05/21 20:40 Sodium Chloride Flush 0.9% 10 Ml Syringe IVP 10 ml PRN PRN Administration NEEDED PER PROVIDER ORDERS Spironolactone 12.5 mg 08/03/21 09:00 08/09/21 09:30 Spironolactone 25 Mg Tablet PO 12.5 mg DAILY YONATHAN Administration Thiamine HCl 100 mg 08/03/21 09:00 08/09/21 09:32 Thiamine 100 Mg Tablet PO 100 mg DAILY YONATHAN Administration - Lab Result Fish Bone Diagrams: 08/09/21 05:12 08/07/21 04:28 - Additional Planning My Orders: My Active Orders 08/08/21 Dinner Low Sodium Diet [DIET] 08/09/21 09:00 Multivitamin W/Minerals [Theragran M] 1 tab PO DAILYWM Subjective - Subjective Patient Reports: Other (Resting comfortably in bed. No new complains) Objective Vital Signs: Vital Signs - 24 hr 08/08/21 08/08/21 08/09/21 15:56 23:34 07:51 Temperature 36.7 C 37.0 C 36.6 C Heart Rate [ 62 63 Brachial] Heart Rate [ 72 Monitoring electrodes] Respiratory 17 16 20 Rate Blood Pressure 98/67 122/83 H 112/73 [Right Brachial artery] O2 Saturation 97 95 96 Oxygen O2 Source Room air I&O (Last 24 Hrs): Intake and Output Totals x24h 08/07/21 08/08/21 08/09/21 23:59 23:59 23:59 Intake Total 810 660 480 Output Total 1999 580 Balance -1190 80 480 - Results Results: Laboratory Results WBC 7.6 x10^3/uL (4.8-10.8) 08/09/21 05:12 RBC 4.44 10^6/uL (4.70-6.10) L 08/09/21 05:12 Hgb 14.3 g/dL (14.0-18.0) 08/09/21 05:12 Hct 42.5 % (42.0-52.0) 08/09/21 05:12 MCV 95.7 fL (80.0-94.0) H 08/09/21 05:12 MCH 32.2 pg (27.0-31.0) H 08/09/21 05:12 MCHC 33.6 g/dL (32.0-36.0) 08/09/21 05:12 RDW 17.1 % (12.0-15.0) H 08/09/21 05:12 Plt Count 202 10^3/uL (130-450) 08/09/21 05:12 MPV 11.2 fL (7.4-11.4) 08/09/21 05:12 Neut # (Auto) 5.4 10^3/uL (1.5-6.6) 08/09/21 05:12 Lymph # (Auto) 1.3 10^3/uL (1.5-3.5) L 08/09/21 05:12 [place] # (Auto) 0.7 10^3/uL (0.0-1.0) 08/09/21 05:12 Eos # (Auto) 0.1 10^3/uL (0.0-0.7) 08/09/21 05:12 Baso # (Auto) 0.1 10^3/uL (0.0-0.1) 08/09/21 05:12 Absolute Nucleated RBC 0.00 x10^3/uL 08/09/21 05:12 Nucleated RBC % 0.0 /100WBC 08/09/21 05:12 PT 13.2 secs (9.9-12.6) H 08/02/21 16:19 INR 1.2 (0.8-1.2) 08/02/21 16:19 Sodium 136 mmol/L (135-145) 08/07/21 04:28 Potassium 4.3 mmol/L (3.5-5.0) 08/07/21 04:28 Chloride 89 mmol/L (101-111) L 08/07/21 04:28 Carbon Dioxide 35 mmol/L (21-32) H 08/07/21 04:28 Anion Gap 12.0 (6-13) 08/07/21 04:28 BUN 26 mg/dL (6-20) H 08/07/21 04:28 Creatinine 1.1 mg/dL (0.6-1.2) 08/07/21 04:28 Estimated GFR (MDRD) 68 (>89) L 08/07/21 04:28 Glucose 91 mg/dL (70-100) 08/07/21 04:28 POC Whole Bld Glucose 107 mg/dL (70 - 100) H 08/03/21 07:23 Calcium 8.9 mg/dL (8.5-10.3) 08/07/21 04:28 Phosphorus 3.6 mg/dL (2.5-4.6) 08/07/21 04:28 Magnesium 1.9 mg/dL (1.7-2.8) 08/06/21 04:40 Total Bilirubin 0.8 mg/dL (0.2-1.0) 08/04/21 05:01 AST 19 IU/L (10-42) 08/04/21 05:01 ALT 10 IU/L (10-60) 08/04/21 05:01 Alkaline Phosphatase 50 IU/L (42-121) 08/04/21 05:01 Troponin I High Sens 109.2 ng/L (2.3-19.7) H* 08/04/21 05:01 B-Natriuretic Peptide 3278 pg/mL (5-100) H 08/09/21 05:12 Total Protein 5.9 g/dL (6.7-8.2) L 08/04/21 05:01 Albumin 3.4 g/dL (3.2-5.5) 08/07/21 04:28 Globulin 2.6 g/dL (2.1-4.2) 08/04/21 05:01 Albumin/Globulin Ratio 1.3 (1.0-2.2) 08/04/21 05:01 Lipase 47 U/L (22-51) 08/02/21 16:19 Last Dose Date UNK 08/02/21 18:59 Last Dose Time UNK 08/02/21 18:59 Digoxin 0.6 ng/mL 08/02/21 18:59 SARS-CoV-2 (PCR) NOT DETECTED 08/02/21 16:57 - Procedures Procedures: Procedures COLONOSCOPY (08/16/13) INSERTION OF INFUSION DEV INTO SUP VENA CAVA, PERC APPROACH (01/18/21) ABX Reporting Has patient been on IV antibiotics over the past 48 hours?: No
[2021-08-09] MEDS: SODIUM CHLORIDE FLUSH 0.9% 10 ML SYRINGE IVP PRN (15:36)
[2021-08-09] MEDS: ATORVASTATIN 40 MG TABLET PO SCH (21:15)
[2021-08-10] MEDS: SODIUM CHLORIDE FLUSH 0.9% 10 ML SYRINGE IVP SCH ×3 (00:01→17:25)
[2021-08-10] MEDS: metOLazone 2.5 MG TABLET PO SCH ×2 (04:46→13:33)
[2021-08-10] MEDS: HYDROcod/ACETAM 5/325 MG TABLET PO PRN ×4 (04:46→17:26)
[2021-08-10 05:19] LABS: BASOPHILS # (AUTO) 0.1 10^3/uL (0.0-0.1); BASOPHILS % (AUTO) 0.6 %; EOSINOPHILS # (AUTO) 0.1 10^3/uL (0.0-0.7); EOSINOPHILS % (AUTO) 1.3 %; HCT - HEMATOCRIT 42.3 % (42.0-52.0); HGB - HEMOGLOBIN 14.2 g/dL (14.0-18.0); LYMPHOCYTES # (AUTO) 1.3 10^3/uL (1.5-3.5); LYMPHOCYTES % (AUTO) 15.2 %; MEAN CORPUSCULAR HEMOGLOBIN 31.6 pg (27.0-31.0); MEAN CORPUSCULAR HGB CONC 33.6 g/dL (32.0-36.0); MEAN CORPUSCULAR VOLUME 94.2 fL (80.0-94.0); MEAN PLATELET VOLUME 10.8 fL (7.4-11.4); MONOCYTES % (AUTO) 10.8 %; NEUTROPHILS # (AUTO) 6.3 10^3/uL (1.5-6.6); NEUTROPHILS % (AUTO) 71.9 %; PLT - PLATELET COUNT 236 10^3/uL (130-450); RED BLOOD COUNT 4.49 10^6/uL (4.70-6.10); RED CELL DISTRIBUTION WIDTH 16.7 % (12.0-15.0); WHITE BLOOD COUNT 8.8 x10^3/uL (4.8-10.8)
[2021-08-10] MEDS: PANTOPRAZOLE 40 MG TABLET PO SCH (05:22)
[2021-08-10] MEDS: FUROSEMIDE 40 MG/4 ML VIAL IVP SCH ×2 (05:22→14:10)
[2021-08-10] MEDS: MIDODRINE 2.5 MG TABLET PO SCH ×3 (05:22→17:25)
[2021-08-10 05:32] LABS: CALCIUM 9.1 mg/dL (8.5-10.3); CREATININE 1.2 mg/dL (0.6-1.2); POTASSIUM 3.9 mmol/L (3.5-5.0)
--- NOTE | 2021-08-10 07:53 | PROVIDER PROGRESS NOTE ---
Assessment/Plan - Problem List (1) Acute on chronic systolic and diastolic heart failure, NYHA class 4 Assessment/Plan: Patient continues to improve daily Last echo on 01/21/2021 showed overall left ventricular systolic function was severely impaired with a left ventricular ejection fraction of less than 20%. Due to patient being homeless and noncompliant with medical care he was not a candidate for an AICD device. BNP has been as high as 5821. Today BNP was 3256. Respiratory status improved with diuresis. Oxygen saturation between 94 and 100% on room air. Systolic blood pressure between 100-124. Lasix 40 mg IV twice daily. Metoprolol succinate 25 mg p.o. daily. Metolazone 2.5 mg p.o. twice daily. Spironolactone 12.5 mg p.o. daily. Lisinopril 2.5 mg p.o. daily. Digoxin 125 mcg p.o. daily. (2) COPD (chronic obstructive pulmonary disease) with emphysema Qualifiers: Emphysema type: unspecified Qualified Code(s): J43.9 - Emphysema, unspecified Assessment/Plan: Oxygen Saturation is between 94 and 100% on room air. Patient is breathing comfortably. DuoNeb every 4 hours as needed. Atrovent 0.5 mg inhalation every 6 hours as needed. (4) Chronic ulcer of leg Qualifiers: Laterality: left Assessment/Plan: Patient has underlying peripheral vascular disease. Also Lower extremity edema from CHF contributing. Wound dressing daily by nursing staff. (5) ESTEVAN (acute kidney injury) Assessment/Plan: Likely secondary to CHF exacerbation. Anticipate improvement with diuresis. Creatinine today is 1.2. Last January creatinine was as high as 2.4. (7) Homelessness Assessment/Plan: He resides at the homeless assisted in [place]. - Current Meds Current Meds: Current Medications Generic Name Dose Route Start Last Admin Trade Name Freq PRN Reason Stop Dose Admin Acetaminophen 650 mg 08/02/21 18:31 08/08/21 11:57 Acetaminophen 325 Mg Tablet PO 650 mg Q4HR PRN Administration Pain 1 to 4, or Fever Hydrocodone Bitart/Acetaminophen 2 tab 08/05/21 09:05 08/10/21 04:46 Hydrocod/Acetam 5/325 Mg Tablet PO 2 tab Q4HR PRN Administration Pain 5 to 7 Albuterol/Ipratropium 3 ml 08/02/21 23:35 08/05/21 08:13 Ipratropium/Albuterol 3 Ml Neb INH 3 ml Q4HR PRN Administration Wheezing Apixaban 5 mg 08/02/21 21:00 08/09/21 21:15 Apixaban 5 Mg Tablet PO 5 mg BID YONATHAN Administration Atorvastatin Calcium 40 mg 08/03/21 21:00 08/09/21 21:15 Atorvastatin 40 Mg Tablet PO 40 mg QPM YONATHAN Administration Bacitracin 1 packet 08/07/21 11:03 08/07/21 14:33 Bacitracin Zinc Oint 1 Packet TOP 1 packet PRN PRN Administration Skin Care Citalopram Hydrobromide 20 mg 08/06/21 09:00 08/09/21 09:21 Citalopram 10 Mg Tablet PO 20 mg DAILY YONATHAN Administration Digoxin 125 mcg 08/03/21 09:00 08/09/21 09:23 Digoxin 125 Mcg Tablet PO 125 mcg DAILY YONATHAN Administration Furosemide 40 mg 08/07/21 06:00 08/10/21 05:22 Furosemide 40 Mg/4 Ml Vial IVP 40 mg BIDDIURETIC YONATHAN Administration Gabapentin 600 mg 08/03/21 21:00 08/09/21 21:15 Gabapentin 300 Mg Capsule PO 600 mg QPM YONATHAN Administration Gabapentin 300 mg 08/03/21 11:32 08/09/21 14:09 Gabapentin 300 Mg Capsule PO 300 mg 0800,1400 YONATHAN Administration Lisinopril 2.5 mg 08/04/21 10:00 08/09/21 09:24 Lisinopril 5 Mg Tablet PO 2.5 mg DAILY YONATHAN Administration Magnesium Oxide 800 mg 08/05/21 08:00 08/09/21 17:06 Magnesium Oxide 400 Mg Tablet PO 800 mg TIDWM YONATHAN Administration Metolazone 2.5 mg 08/07/21 05:30 08/10/21 04:46 Metolazone 2.5 Mg Tablet PO 2.5 mg 0530,1330 YONATHAN Administration Metoprolol Succinate 25 mg 08/03/21 09:00 08/09/21 09:25 Metoprolol Succinate 25 Mg Tablet PO 25 mg DAILY YONATHAN Administration Midodrine 5 mg 08/03/21 18:00 08/10/21 05:22 Midodrine 2.5 Mg Tablet PO 5 mg 0600,1200,1800 YONATHAN Administration Multi-Ingredient Mouthwash/Gargle 30 ml 08/03/21 14:10 08/03/21 15:57 Gi Cocktail 120 Ml Bottle PO 30 ml Q4H PRN Administration Abdominal Pain Multivitamins/Minerals 1 tab 08/09/21 09:00 08/09/21 09:26 Multivitamin W/Minerals Tablet PO 1 tab DAILYWM YONATHAN Administration Nicotine 1 patch 08/03/21 09:00 08/09/21 09:26 Nicotine 14 Mg Patch TOP Not Given DAILY YONATHAN Pantoprazole Sodium 40 mg 08/03/21 07:00 08/10/21 05:22 Pantoprazole 40 Mg Tablet PO 40 mg QDAC YONATHAN Administration Prochlorperazine Edisylate 10 mg 08/02/21 18:31 08/04/21 11:58 Prochlorperazine 10 Mg/2 Ml Vial IVP 10 mg Q6HR PRN Administration Nausea / Vomiting Sodium Chloride 10 ml 08/03/21 01:00 08/10/21 00:01 Sodium Chloride Flush 0.9% 10 Ml Syringe IVP 10 ml 0100,0900,1700 YONATHAN Administration Sodium Chloride 10 ml 08/02/21 18:31 08/09/21 15:36 Sodium Chloride Flush 0.9% 10 Ml Syringe IVP 10 ml PRN PRN Administration NEEDED PER PROVIDER ORDERS Spironolactone 12.5 mg 08/03/21 09:00 08/09/21 09:30 Spironolactone 25 Mg Tablet PO 12.5 mg DAILY YONATHAN Administration Thiamine HCl 100 mg 08/03/21 09:00 08/09/21 09:32 Thiamine 100 Mg Tablet PO 100 mg DAILY YONATHAN Administration - Lab Result Fish Bone Diagrams: 08/10/21 04:55 08/10/21 04:55 - Additional Planning My Orders: My Active Orders 08/09/21 09:00 Multivitamin W/Minerals [Theragran M] 1 tab PO DAILYWM 08/11/21 05:00 BMP - BASIC METABOLIC PANEL [CHEM] DAILYLAB BNP - B-NATRIURETIC PEPTIDE [IAI] DAILYLAB CBC - COMP BLD CT W/AUTO DIFF [HEME] DAILYLAB 08/12/21 05:00 BMP - BASIC METABOLIC PANEL [CHEM] DAILYLAB BNP - B-NATRIURETIC PEPTIDE [IAI] DAILYLAB CBC - COMP BLD CT W/AUTO DIFF [HEME] DAILYLAB 08/13/21 05:00 BMP - BASIC METABOLIC PANEL [CHEM] DAILYLAB BNP - B-NATRIURETIC PEPTIDE [IAI] DAILYLAB CBC - COMP BLD CT W/AUTO DIFF [HEME] DAILYLAB 08/14/21 05:00 BMP - BASIC METABOLIC PANEL [CHEM] DAILYLAB BNP - B-NATRIURETIC PEPTIDE [IAI] DAILYLAB CBC - COMP BLD CT W/AUTO DIFF [HEME] DAILYLAB Subjective - Subjective Patient Reports: Other (Resting comfortably in bed this morning. Ambulated with PT in the hallway. Denied any significant complains) Objective Vital Signs: Vital Signs - 24 hr 08/09/21 08/10/21 15:35 05:28 Temperature 36.5 C 36.5 C Heart Rate [ 63 Brachial] Heart Rate [ 64 Monitoring electrodes] Respiratory 16 18 Rate Blood Pressure 97/68 107/69 [Right Brachial artery] O2 Saturation 94 93 Oxygen O2 Source Room air I&O (Last 24 Hrs): Intake and Output Totals x24h 08/08/21 08/09/21 08/10/21 23:59 23:59 23:59 Intake Total 660 1350 200 Output Total 580 Balance 80 1350 200 Comments/Notes: General: Alert, Oriented x3, Mild distress HEENT: PERRLA, EOMI Neck: Supple, No JVD Neuro: Alert, Non Focal, Oriented Times 3 Cardiovascular: Regular rate, No murmurs Respiratory: Chest non-tender, No respiratory distress, Other (Coarse breath sounds) Abdomen: Normal bowel sounds, Soft, No tenderness, No masses Extremities: Other (1+ edema, dusky appearing lower extremities) - Results Results: Laboratory Results WBC 8.8 x10^3/uL (4.8-10.8) 08/10/21 04:55 RBC 4.49 10^6/uL (4.70-6.10) L 08/10/21 04:55 Hgb 14.2 g/dL (14.0-18.0) 08/10/21 04:55 Hct 42.3 % (42.0-52.0) 08/10/21 04:55 MCV 94.2 fL (80.0-94.0) H 08/10/21 04:55 MCH 31.6 pg (27.0-31.0) H 08/10/21 04:55 MCHC 33.6 g/dL (32.0-36.0) 08/10/21 04:55 RDW 16.7 % (12.0-15.0) H 08/10/21 04:55 Plt Count 236 10^3/uL (130-450) 08/10/21 04:55 MPV 10.8 fL (7.4-11.4) 08/10/21 04:55 Neut # (Auto) 6.3 10^3/uL (1.5-6.6) 08/10/21 04:55 Lymph # (Auto) 1.3 10^3/uL (1.5-3.5) L 08/10/21 04:55 [place] # (Auto) 1.0 10^3/uL (0.0-1.0) 08/10/21 04:55 Eos # (Auto) 0.1 10^3/uL (0.0-0.7) 08/10/21 04:55 Baso # (Auto) 0.1 10^3/uL (0.0-0.1) 08/10/21 04:55 Absolute Nucleated RBC 0.00 x10^3/uL 08/10/21 04:55 Nucleated RBC % 0.0 /100WBC 08/10/21 04:55 PT 13.2 secs (9.9-12.6) H 08/02/21 16:19 INR 1.2 (0.8-1.2) 08/02/21 16:19 Sodium 133 mmol/L (135-145) L 08/10/21 04:55 Potassium 3.9 mmol/L (3.5-5.0) 08/10/21 04:55 Chloride 91 mmol/L (101-111) L 08/10/21 04:55 Carbon Dioxide 31 mmol/L (21-32) 08/10/21 04:55 Anion Gap 11.0 (6-13) 08/10/21 04:55 BUN 24 mg/dL (6-20) H 08/10/21 04:55 Creatinine 1.2 mg/dL (0.6-1.2) 08/10/21 04:55 Estimated GFR (MDRD) 62 (>89) L 08/10/21 04:55 Glucose 93 mg/dL (70-100) 08/10/21 04:55 POC Whole Bld Glucose 107 mg/dL (70 - 100) H 08/03/21 07:23 Calcium 9.1 mg/dL (8.5-10.3) 08/10/21 04:55 Phosphorus 3.6 mg/dL (2.5-4.6) 08/07/21 04:28 Magnesium 1.9 mg/dL (1.7-2.8) 08/06/21 04:40 Total Bilirubin 0.8 mg/dL (0.2-1.0) 08/04/21 05:01 AST 19 IU/L (10-42) 08/04/21 05:01 ALT 10 IU/L (10-60) 08/04/21 05:01 Alkaline Phosphatase 50 IU/L (42-121) 08/04/21 05:01 Troponin I High Sens 109.2 ng/L (2.3-19.7) H* 08/04/21 05:01 B-Natriuretic Peptide 3256 pg/mL (5-100) H 08/10/21 04:55 Total Protein 5.9 g/dL (6.7-8.2) L 08/04/21 05:01 Albumin 3.4 g/dL (3.2-5.5) 08/07/21 04:28 Globulin 2.6 g/dL (2.1-4.2) 08/04/21 05:01 Albumin/Globulin Ratio 1.3 (1.0-2.2) 08/04/21 05:01 Lipase 47 U/L (22-51) 08/02/21 16:19 Last Dose Date UNK 08/02/21 18:59 Last Dose Time UNK 08/02/21 18:59 Digoxin 0.6 ng/mL 08/02/21 18:59 SARS-CoV-2 (PCR) NOT DETECTED 08/02/21 16:57 - Procedures Procedures: Procedures COLONOSCOPY (08/16/13) INSERTION OF INFUSION DEV INTO SUP VENA CAVA, PERC APPROACH (01/18/21) ABX Reporting Has patient been on IV antibiotics over the past 48 hours?: No
[2021-08-10] MEDS: THIAMINE 100 MG TABLET PO SCH (08:53)
[2021-08-10] MEDS: MULTIVITAMIN W/MINERALS TABLET PO SCH (08:54)
[2021-08-10] MEDS: CITALOPRAM 10 MG TABLET PO SCH (08:54)
[2021-08-10] MEDS: APIXABAN 5 MG TABLET PO SCH ×2 (08:54→21:47)
[2021-08-10] MEDS: DIGOXIN 125 MCG TABLET PO SCH (08:55)
[2021-08-10] MEDS: GABAPENTIN 300 MG CAPSULE PO SCH ×3 (08:55→21:47)
[2021-08-10] MEDS: lisinopriL 5 MG TABLET PO SCH (08:56)
[2021-08-10] MEDS: METOPROLOL SUCCINATE 25 MG TABLET PO SCH (08:56)
[2021-08-10] MEDS: SPIRONOLACTONE 25 MG TABLET PO SCH (08:57)
[2021-08-10] MEDS: NICOTINE 14 MG PATCH TOP SCH (08:58)
[2021-08-10] MEDS: MAGNESIUM OXIDE 400 MG TABLET PO SCH ×3 (08:58→17:25)
[2021-08-10] MEDS: SODIUM CHLORIDE FLUSH 0.9% 10 ML SYRINGE IVP PRN (14:10)
[2021-08-10] MEDS: ATORVASTATIN 40 MG TABLET PO SCH (21:47)
[2021-08-11] MEDS: SODIUM CHLORIDE FLUSH 0.9% 10 ML SYRINGE IVP SCH ×3 (00:23→18:10)
[2021-08-11] MEDS: metOLazone 2.5 MG TABLET PO SCH ×2 (05:14→13:56)
[2021-08-11] MEDS: HYDROcod/ACETAM 5/325 MG TABLET PO PRN ×4 (05:14→22:00)
[2021-08-11 05:29] LABS: BASOPHILS # (AUTO) 0.1 10^3/uL (0.0-0.1); BASOPHILS % (AUTO) 0.9 %; EOSINOPHILS # (AUTO) 0.1 10^3/uL (0.0-0.7); EOSINOPHILS % (AUTO) 1.3 %; HCT - HEMATOCRIT 45.9 % (42.0-52.0); HGB - HEMOGLOBIN 15.1 g/dL (14.0-18.0); LYMPHOCYTES # (AUTO) 1.5 10^3/uL (1.5-3.5); LYMPHOCYTES % (AUTO) 18.8 %; MEAN CORPUSCULAR HEMOGLOBIN 31.3 pg (27.0-31.0); MEAN CORPUSCULAR HGB CONC 32.9 g/dL (32.0-36.0); MEAN CORPUSCULAR VOLUME 95.2 fL (80.0-94.0); MEAN PLATELET VOLUME 10.5 fL (7.4-11.4); MONOCYTES # (AUTO) 0.8 10^3/uL (0.0-1.0); MONOCYTES % (AUTO) 9.4 %; NEUTROPHILS # (AUTO) 5.5 10^3/uL (1.5-6.6); NEUTROPHILS % (AUTO) 69.2 %; PLT - PLATELET COUNT 249 10^3/uL (130-450); RED BLOOD COUNT 4.82 10^6/uL (4.70-6.10); RED CELL DISTRIBUTION WIDTH 16.7 % (12.0-15.0)
[2021-08-11 05:37] LABS: CALCIUM 9.3 mg/dL (8.5-10.3); CREATININE 1.4 mg/dL (0.6-1.2); POTASSIUM 4.4 mmol/L (3.5-5.0)
[2021-08-11] MEDS: MIDODRINE 2.5 MG TABLET PO SCH ×3 (05:48→18:11)
[2021-08-11] MEDS: FUROSEMIDE 40 MG/4 ML VIAL IVP SCH ×2 (05:48→14:46)
[2021-08-11] MEDS: PANTOPRAZOLE 40 MG TABLET PO SCH (05:48)
--- NOTE | 2021-08-11 07:22 | PROVIDER PROGRESS NOTE ---
Assessment/Plan - Problem List (1) Acute on chronic systolic and diastolic heart failure, NYHA class 4 Assessment/Plan: Patient continues to improve daily Last echo on 01/21/2021 showed overall left ventricular systolic function was severely impaired with a left ventricular ejection fraction of less than 20%. Due to patient being homeless and noncompliant with medical care he was not a candidate for an AICD device. BNP has been as high as 5821. Today BNP was 2168. Respiratory status improved with diuresis. Oxygen saturation between 94 and 100% on room air. Systolic blood pressure between 100-124. Lasix 40 mg IV twice daily. Metoprolol succinate 25 mg p.o. daily. Metolazone 2.5 mg p.o. twice daily. Spironolactone 12.5 mg p.o. daily. Lisinopril 2.5 mg p.o. daily. Digoxin 125 mcg p.o. daily. Anticipate discharge 08/12/21 (2) COPD (chronic obstructive pulmonary disease) with emphysema Qualifiers: Emphysema type: unspecified Qualified Code(s): J43.9 - Emphysema, unspecified Assessment/Plan: Oxygen Saturation is between 94 and 100% on room air. Patient is breathing comfortably. DuoNeb every 4 hours as needed. Atrovent 0.5 mg inhalation every 6 hours as needed. (4) Chronic ulcer of leg Qualifiers: Laterality: left Assessment/Plan: Patient has underlying peripheral vascular disease. Also Lower extremity edema from CHF contributing. Wound dressing daily by nursing staff. (5) ESTEVAN (acute kidney injury) Assessment/Plan: Likely secondary to CHF exacerbation. Anticipate improvement with diuresis. Creatinine today is 1.4. Last January creatinine was as high as 2.4. (7) Homelessness Assessment/Plan: [facility] [place]. (2) COPD (chronic obstructive pulmonary disease) with emphysema Qualifiers: Emphysema type: unspecified Qualified Code(s): J43.9 - Emphysema, unspecified (4) Chronic ulcer of leg Qualifiers: Laterality: left - Current Meds Current Meds: Current Medications Generic Name Dose Route Start Last Admin Trade Name Freq PRN Reason Stop Dose Admin Acetaminophen 650 mg 08/02/21 18:31 08/08/21 11:57 Acetaminophen 325 Mg Tablet PO 650 mg Q4HR PRN Administration Pain 1 to 4, or Fever Hydrocodone Bitart/Acetaminophen 2 tab 08/05/21 09:05 08/11/21 05:14 Hydrocod/Acetam 5/325 Mg Tablet PO 2 tab Q4HR PRN Administration Pain 5 to 7 Albuterol/Ipratropium 3 ml 08/02/21 23:35 08/05/21 08:13 Ipratropium/Albuterol 3 Ml Neb INH 3 ml Q4HR PRN Administration Wheezing Apixaban 5 mg 08/02/21 21:00 08/10/21 21:47 Apixaban 5 Mg Tablet PO 5 mg BID YONATHAN Administration Atorvastatin Calcium 40 mg 08/03/21 21:00 08/10/21 21:47 Atorvastatin 40 Mg Tablet PO 40 mg QPM YONATHAN Administration Bacitracin 1 packet 08/07/21 11:03 08/07/21 14:33 Bacitracin Zinc Oint 1 Packet TOP 1 packet PRN PRN Administration Skin Care Citalopram Hydrobromide 20 mg 08/06/21 09:00 08/10/21 08:54 Citalopram 10 Mg Tablet PO 20 mg DAILY YONATHAN Administration Digoxin 125 mcg 08/03/21 09:00 08/10/21 08:55 Digoxin 125 Mcg Tablet PO 125 mcg DAILY YONATHAN Administration Furosemide 40 mg 08/07/21 06:00 08/11/21 05:48 Furosemide 40 Mg/4 Ml Vial IVP 40 mg BIDDIURETIC YONATHAN Administration Gabapentin 600 mg 08/03/21 21:00 08/10/21 21:47 Gabapentin 300 Mg Capsule PO 600 mg QPM YONATHAN Administration Gabapentin 300 mg 08/03/21 11:32 08/10/21 13:32 Gabapentin 300 Mg Capsule PO 300 mg 0800,1400 YONATHAN Administration Lisinopril 2.5 mg 08/04/21 10:00 08/10/21 08:56 Lisinopril 5 Mg Tablet PO 2.5 mg DAILY YONATHAN Administration Magnesium Oxide 800 mg 08/05/21 08:00 08/10/21 17:25 Magnesium Oxide 400 Mg Tablet PO 800 mg TIDWM YONATHAN Administration Metolazone 2.5 mg 08/07/21 05:30 08/11/21 05:14 Metolazone 2.5 Mg Tablet PO 2.5 mg 0530,1330 YONATHAN Administration Metoprolol Succinate 25 mg 08/03/21 09:00 08/10/21 08:56 Metoprolol Succinate 25 Mg Tablet PO 25 mg DAILY YONATHAN Administration Midodrine 5 mg 08/03/21 18:00 08/11/21 05:48 Midodrine 2.5 Mg Tablet PO 5 mg 0600,1200,1800 YONATHAN Administration Multi-Ingredient Mouthwash/Gargle 30 ml 08/03/21 14:10 08/03/21 15:57 Gi Cocktail 120 Ml Bottle PO 30 ml Q4H PRN Administration Abdominal Pain Multivitamins/Minerals 1 tab 08/09/21 09:00 08/10/21 08:54 Multivitamin W/Minerals Tablet PO 1 tab DAILYWM YONATHAN Administration Nicotine 1 patch 08/03/21 09:00 08/10/21 08:58 Nicotine 14 Mg Patch TOP Not Given DAILY YONATHAN Pantoprazole Sodium 40 mg 08/03/21 07:00 08/11/21 05:48 Pantoprazole 40 Mg Tablet PO 40 mg QDAC YONATHAN Administration Prochlorperazine Edisylate 10 mg 08/02/21 18:31 08/04/21 11:58 Prochlorperazine 10 Mg/2 Ml Vial IVP 10 mg Q6HR PRN Administration Nausea / Vomiting Sodium Chloride 10 ml 08/03/21 01:00 08/11/21 00:23 Sodium Chloride Flush 0.9% 10 Ml Syringe IVP 10 ml 0100,0900,1700 YONATHAN Administration Sodium Chloride 10 ml 08/02/21 18:31 08/10/21 14:10 Sodium Chloride Flush 0.9% 10 Ml Syringe IVP 10 ml PRN PRN Administration NEEDED PER PROVIDER ORDERS Spironolactone 12.5 mg 08/03/21 09:00 08/10/21 08:57 Spironolactone 25 Mg Tablet PO 12.5 mg DAILY YONATHAN Administration Thiamine HCl 100 mg 08/03/21 09:00 08/10/21 08:53 Thiamine 100 Mg Tablet PO 100 mg DAILY YONATHAN Administration - Lab Result Fish Bone Diagrams: 08/11/21 05:20 08/11/21 05:20 - Additional Planning My Orders: My Active Orders 08/12/21 05:00 BMP - BASIC METABOLIC PANEL [CHEM] DAILYLAB BNP - B-NATRIURETIC PEPTIDE [IAI] DAILYLAB CBC - COMP BLD CT W/AUTO DIFF [HEME] DAILYLAB 08/13/21 05:00 BMP - BASIC METABOLIC PANEL [CHEM] DAILYLAB BNP - B-NATRIURETIC PEPTIDE [IAI] DAILYLAB CBC - COMP BLD CT W/AUTO DIFF [HEME] DAILYLAB 08/14/21 05:00 BMP - BASIC METABOLIC PANEL [CHEM] DAILYLAB BNP - B-NATRIURETIC PEPTIDE [IAI] DAILYLAB CBC - COMP BLD CT W/AUTO DIFF [HEME] DAILYLAB Subjective - Subjective Patient Reports: Other (No new complains) Objective Vital Signs: Vital Signs - 24 hr 08/10/21 08/10/21 08/10/21 08:07 08:45 15:57 Temperature 36.5 C 36.8 C Heart Rate [ 65 64 Brachial] Heart Rate [ 64 Monitoring electrodes] Respiratory 20 16 Rate Blood Pressure 107/74 113/88 H 97/66 [Right Brachial artery] O2 Saturation 98 94 08/11/21 01:42 Temperature 36.9 C Heart Rate [ 67 Brachial] Heart Rate [ Monitoring electrodes] Respiratory 16 Rate Blood Pressure 113/76 [Right Brachial artery] O2 Saturation 96 Oxygen O2 Source Room air I&O (Last 24 Hrs): Intake and Output Totals x24h 08/09/21 08/10/21 08/11/21 23:59 23:59 23:59 Intake Total 1350 1060 250 Balance 1350 1060 250 Comments/Notes: General: Alert, Oriented x3, Mild distress HEENT: PERRLA, EOMI Neck: Supple, No JVD Neuro: Alert, Non Focal, Oriented Times 3 Cardiovascular: Regular rate, No murmurs Respiratory: Chest non-tender, No respiratory distress, Other (Coarse breath so unds) Abdomen: Normal bowel sounds, Soft, No tenderness, No masses Extremities: Other (1+ edema, dusky appearing lower extremities) - Results Results: Laboratory Results WBC 8.0 x10^3/uL (4.8-10.8) 08/11/21 05:20 RBC 4.82 10^6/uL (4.70-6.10) 08/11/21 05:20 Hgb 15.1 g/dL (14.0-18.0) 08/11/21 05:20 Hct 45.9 % (42.0-52.0) 08/11/21 05:20 MCV 95.2 fL (80.0-94.0) H 08/11/21 05:20 MCH 31.3 pg (27.0-31.0) H 08/11/21 05:20 MCHC 32.9 g/dL (32.0-36.0) 08/11/21 05:20 RDW 16.7 % (12.0-15.0) H 08/11/21 05:20 Plt Count 249 10^3/uL (130-450) 08/11/21 05:20 MPV 10.5 fL (7.4-11.4) 08/11/21 05:20 Neut # (Auto) 5.5 10^3/uL (1.5-6.6) 08/11/21 05:20 Lymph # (Auto) 1.5 10^3/uL (1.5-3.5) 08/11/21 05:20 [place] # (Auto) 0.8 10^3/uL (0.0-1.0) 08/11/21 05:20 Eos # (Auto) 0.1 10^3/uL (0.0-0.7) 08/11/21 05:20 Baso # (Auto) 0.1 10^3/uL (0.0-0.1) 08/11/21 05:20 Absolute Nucleated RBC 0.00 x10^3/uL 08/11/21 05:20 Nucleated RBC % 0.0 /100WBC 08/11/21 05:20 PT 13.2 secs (9.9-12.6) H 08/02/21 16:19 INR 1.2 (0.8-1.2) 08/02/21 16:19 Sodium 135 mmol/L (135-145) 08/11/21 05:20 Potassium 4.4 mmol/L (3.5-5.0) 08/11/21 05:20 Chloride 90 mmol/L (101-111) L 08/11/21 05:20 Carbon Dioxide 36 mmol/L (21-32) H 08/11/21 05:20 Anion Gap 9.0 (6-13) 08/11/21 05:20 BUN 25 mg/dL (6-20) H 08/11/21 05:20 Creatinine 1.4 mg/dL (0.6-1.2) H 08/11/21 05:20 Estimated GFR (MDRD) 52 (>89) L 08/11/21 05:20 Glucose 107 mg/dL (70-100) H 08/11/21 05:20 POC Whole Bld Glucose 107 mg/dL (70 - 100) H 08/03/21 07:23 Calcium 9.3 mg/dL (8.5-10.3) 08/11/21 05:20 Phosphorus 3.6 mg/dL (2.5-4.6) 08/07/21 04:28 Magnesium 1.9 mg/dL (1.7-2.8) 08/06/21 04:40 Total Bilirubin 0.8 mg/dL (0.2-1.0) 08/04/21 05:01 AST 19 IU/L (10-42) 08/04/21 05:01 ALT 10 IU/L (10-60) 08/04/21 05:01 Alkaline Phosphatase 50 IU/L (42-121) 08/04/21 05:01 Troponin I High Sens 109.2 ng/L (2.3-19.7) H* 08/04/21 05:01 B-Natriuretic Peptide 2168 pg/mL (5-100) H 08/11/21 05:20 Total Protein 5.9 g/dL (6.7-8.2) L 08/04/21 05:01 Albumin 3.4 g/dL (3.2-5.5) 08/07/21 04:28 Globulin 2.6 g/dL (2.1-4.2) 08/04/21 05:01 Albumin/Globulin Ratio 1.3 (1.0-2.2) 08/04/21 05:01 Lipase 47 U/L (22-51) 08/02/21 16:19 Last Dose Date UNK 08/02/21 18:59 Last Dose Time UNK 08/02/21 18:59 Digoxin 0.6 ng/mL 08/02/21 18:59 SARS-CoV-2 (PCR) NOT DETECTED 08/02/21 16:57 - Procedures Procedures: Procedures COLONOSCOPY (08/16/13) INSERTION OF INFUSION DEV INTO SUP VENA CAVA, PERC APPROACH (01/18/21) ABX Reporting Has patient been on IV antibiotics over the past 48 hours?: No
[2021-08-11] MEDS: IPRATROPIUM/ALBUTEROL 3 ML NEB INH PRN (07:48)
[2021-08-11] MEDS: MULTIVITAMIN W/MINERALS TABLET PO SCH (08:30)
[2021-08-11] MEDS: MAGNESIUM OXIDE 400 MG TABLET PO SCH ×3 (08:30→17:10)
[2021-08-11] MEDS: GABAPENTIN 300 MG CAPSULE PO SCH ×3 (08:30→22:00)
[2021-08-11] MEDS: CITALOPRAM 10 MG TABLET PO SCH (09:44)
[2021-08-11] MEDS: APIXABAN 5 MG TABLET PO SCH ×2 (09:45→21:59)
[2021-08-11] MEDS: THIAMINE 100 MG TABLET PO SCH (09:45)
[2021-08-11] MEDS: lisinopriL 5 MG TABLET PO SCH (09:47)
[2021-08-11] MEDS: NICOTINE 14 MG PATCH TOP SCH (09:47)
[2021-08-11] MEDS: SPIRONOLACTONE 25 MG TABLET PO SCH (09:48)
[2021-08-11] MEDS: DIGOXIN 125 MCG TABLET PO SCH (09:48)
[2021-08-11] MEDS: METOPROLOL SUCCINATE 25 MG TABLET PO SCH (09:51)
[2021-08-11] MEDS: SODIUM CHLORIDE FLUSH 0.9% 10 ML SYRINGE IVP PRN (14:46)
[2021-08-11] MEDS: ATORVASTATIN 40 MG TABLET PO SCH (21:59)
[2021-08-12] MEDS: SODIUM CHLORIDE FLUSH 0.9% 10 ML SYRINGE IVP SCH ×3 (00:59→15:54)
[2021-08-12 05:04] LABS: BASOPHILS # (AUTO) 0.1 10^3/uL (0.0-0.1); BASOPHILS % (AUTO) 0.9 %; EOSINOPHILS # (AUTO) 0.1 10^3/uL (0.0-0.7); EOSINOPHILS % (AUTO) 1.7 %; HCT - HEMATOCRIT 46.7 % (42.0-52.0); HGB - HEMOGLOBIN 15.3 g/dL (14.0-18.0); LYMPHOCYTES # (AUTO) 1.6 10^3/uL (1.5-3.5); LYMPHOCYTES % (AUTO) 19.8 %; MEAN CORPUSCULAR HEMOGLOBIN 30.7 pg (27.0-31.0); MEAN CORPUSCULAR HGB CONC 32.8 g/dL (32.0-36.0); MEAN CORPUSCULAR VOLUME 93.6 fL (80.0-94.0); MEAN PLATELET VOLUME 10.8 fL (7.4-11.4); MONOCYTES # (AUTO) 0.9 10^3/uL (0.0-1.0); MONOCYTES % (AUTO) 11.5 %; NEUTROPHILS # (AUTO) 5.4 10^3/uL (1.5-6.6); NEUTROPHILS % (AUTO) 65.6 %; PLT - PLATELET COUNT 256 10^3/uL (130-450); RED BLOOD COUNT 4.99 10^6/uL (4.70-6.10); RED CELL DISTRIBUTION WIDTH 16.8 % (12.0-15.0); WHITE BLOOD COUNT 8.2 x10^3/uL (4.8-10.8)
[2021-08-12] MEDS: metOLazone 2.5 MG TABLET PO SCH ×3 (05:04→14:09)
[2021-08-12 05:13] LABS: CALCIUM 9.6 mg/dL (8.5-10.3); CREATININE 1.4 mg/dL (0.6-1.2); POTASSIUM 4.5 mmol/L (3.5-5.0)
[2021-08-12] MEDS: HYDROcod/ACETAM 5/325 MG TABLET PO PRN ×2 (05:25→15:53)
[2021-08-12] MEDS: MIDODRINE 2.5 MG TABLET PO SCH ×3 (06:34→18:21)
[2021-08-12] MEDS: FUROSEMIDE 40 MG/4 ML VIAL IVP SCH (06:34)
[2021-08-12] MEDS: PANTOPRAZOLE 40 MG TABLET PO SCH (06:35)
[2021-08-12] MEDS: MAGNESIUM OXIDE 400 MG TABLET PO SCH ×3 (08:38→17:09)
[2021-08-12] MEDS: GABAPENTIN 300 MG CAPSULE PO SCH ×3 (08:38→21:32)
[2021-08-12] MEDS: MULTIVITAMIN W/MINERALS TABLET PO SCH (08:38)
[2021-08-12] MEDS: CITALOPRAM 10 MG TABLET PO SCH (08:39)
[2021-08-12] MEDS: DIGOXIN 125 MCG TABLET PO SCH (08:39)
[2021-08-12] MEDS: APIXABAN 5 MG TABLET PO SCH ×2 (08:39→21:33)
[2021-08-12] MEDS: SPIRONOLACTONE 25 MG TABLET PO SCH (08:40)
[2021-08-12] MEDS: THIAMINE 100 MG TABLET PO SCH (08:40)
[2021-08-12] MEDS: lisinopriL 5 MG TABLET PO SCH (08:41)
[2021-08-12] MEDS: METOPROLOL SUCCINATE 25 MG TABLET PO SCH (08:41)
[2021-08-12] MEDS: NICOTINE 14 MG PATCH TOP SCH (08:42)
--- NOTE | 2021-08-12 11:54 | PROVIDER PROGRESS NOTE ---
Assessment/Plan - Problem List (1) Acute on chronic systolic and diastolic heart failure, NYHA class 4 Assessment/Plan: Patient continues to improve daily Last echo on 01/21/2021 showed overall left ventricular systolic function was severely impaired with a left ventricular ejection fraction of less than 20%. Due to patient being homeless and noncompliant with medical care he was not a candidate for an AICD device. BNP has been as high as 5821. Today BNP was 2168. Respiratory status improved with diuresis. Oxygen saturation between 94 and 100% on room air. Systolic blood pressure between 100-124. Lasix 40 mg po daily. IV lasix discontinue 08/12/21 Metoprolol succinate 25 mg p.o. daily. Metolazone 2.5 mg p.o. twice daily. Spironolactone 12.5 mg p.o. daily. Lisinopril 2.5 mg p.o. daily. Digoxin 125 mcg p.o. daily. Anticipate discharge 08/13/21 (2) COPD (chronic obstructive pulmonary disease) with emphysema Qualifiers: Emphysema type: unspecified Qualified Code(s): J43.9 - Emphysema, unspecified Assessment/Plan: Oxygen Saturation is between 94 and 100% on room air. Patient is breathing comfortably. DuoNeb every 4 hours as needed. Atrovent 0.5 mg inhalation every 6 hours as needed. (4) Chronic ulcer of leg Qualifiers: Laterality: left Assessment/Plan: Patient has underlying peripheral vascular disease. Also Lower extremity edema from CHF contributing. Wound dressing daily by nursing staff. (5) ESTEVAN (acute kidney injury) Assessment/Plan: Likely secondary to CHF exacerbation. Anticipate improvement with diuresis. Creatinine today is 1.4. Last January creatinine was as high as 2.4. (7) Homelessness Assessment/Plan: He resides at the homeless alf in [place]. (2) COPD (chronic obstructive pulmonary disease) with emphysema Qualifiers: Emphysema type: unspecified Qualified Code(s): J43.9 - Emphysema, unspecified (4) Chronic ulcer of leg Qualifiers: Laterality: left - Current Meds Current Meds: Current Medications Generic Name Dose Route Start Last Admin Trade Name Freq PRN Reason Stop Dose Admin Acetaminophen 650 mg 08/02/21 18:31 08/08/21 11:57 Acetaminophen 325 Mg Tablet PO 650 mg Q4HR PRN Administration Pain 1 to 4, or Fever Hydrocodone Bitart/Acetaminophen 2 tab 08/05/21 09:05 08/12/21 05:25 Hydrocod/Acetam 5/325 Mg Tablet PO 2 tab Q4HR PRN Administration Pain 5 to 7 Albuterol/Ipratropium 3 ml 08/02/21 23:35 08/11/21 07:48 Ipratropium/Albuterol 3 Ml Neb INH 3 ml Q4HR PRN Administration Wheezing Apixaban 5 mg 08/02/21 21:00 08/12/21 08:39 Apixaban 5 Mg Tablet PO 5 mg BID YONATHAN Administration Atorvastatin Calcium 40 mg 08/03/21 21:00 08/11/21 21:59 Atorvastatin 40 Mg Tablet PO 40 mg QPM YONATHAN Administration Bacitracin 1 packet 08/07/21 11:03 08/07/21 14:33 Bacitracin Zinc Oint 1 Packet TOP 1 packet PRN PRN Administration Skin Care Citalopram Hydrobromide 20 mg 08/06/21 09:00 08/12/21 08:39 Citalopram 10 Mg Tablet PO 20 mg DAILY YONATHAN Administration Digoxin 125 mcg 08/03/21 09:00 08/12/21 08:39 Digoxin 125 Mcg Tablet PO 125 mcg DAILY YONATHAN Administration Gabapentin 600 mg 08/03/21 21:00 08/11/21 22:00 Gabapentin 300 Mg Capsule PO 600 mg QPM YONATHAN Administration Gabapentin 300 mg 08/03/21 11:32 08/12/21 08:38 Gabapentin 300 Mg Capsule PO 300 mg 0800,1400 YONATHAN Administration Lisinopril 2.5 mg 08/04/21 10:00 08/12/21 08:41 Lisinopril 5 Mg Tablet PO Not Given DAILY YONATHAN Magnesium Oxide 800 mg 08/05/21 08:00 08/12/21 08:38 Magnesium Oxide 400 Mg Tablet PO 800 mg TIDWM YONATHAN Administration Metolazone 2.5 mg 08/07/21 05:30 08/12/21 05:09 Metolazone 2.5 Mg Tablet PO Not Given 0530,1330 YONATHAN Metoprolol Succinate 25 mg 08/03/21 09:00 08/12/21 08:41 Metoprolol Succinate 25 Mg Tablet PO 25 mg DAILY YONATHAN Administration Midodrine 5 mg 08/03/21 18:00 08/12/21 06:34 Midodrine 2.5 Mg Tablet PO 5 mg 0600,1200,1800 YONATHAN Administration Multi-Ingredient Mouthwash/Gargle 30 ml 08/03/21 14:10 08/03/21 15:57 Gi Cocktail 120 Ml Bottle PO 30 ml Q4H PRN Administration Abdominal Pain Multivitamins/Minerals 1 tab 08/09/21 09:00 08/12/21 08:38 Multivitamin W/Minerals Tablet PO 1 tab DAILYWM YONATHAN Administration Nicotine 1 patch 08/03/21 09:00 08/12/21 08:42 Nicotine 14 Mg Patch TOP Not Given DAILY YONATHAN Pantoprazole Sodium 40 mg 08/03/21 07:00 08/12/21 06:35 Pantoprazole 40 Mg Tablet PO 40 mg QDAC YONATHAN Administration Prochlorperazine Edisylate 10 mg 08/02/21 18:31 08/04/21 11:58 Prochlorperazine 10 Mg/2 Ml Vial IVP 10 mg Q6HR PRN Administration Nausea / Vomiting Sodium Chloride 10 ml 08/03/21 01:00 08/12/21 08:44 Sodium Chloride Flush 0.9% 10 Ml Syringe IVP 10 ml 0100,0900,1700 YONATHAN Administration Sodium Chloride 10 ml 08/02/21 18:31 08/11/21 14:46 Sodium Chloride Flush 0.9% 10 Ml Syringe IVP 10 ml PRN PRN Administration NEEDED PER PROVIDER ORDERS Spironolactone 12.5 mg 08/03/21 09:00 08/12/21 08:40 Spironolactone 25 Mg Tablet PO 12.5 mg DAILY YONATHAN Administration Thiamine HCl 100 mg 08/03/21 09:00 08/12/21 08:40 Thiamine 100 Mg Tablet PO 100 mg DAILY YONATHAN Administration - Lab Result Fish Bone Diagrams: 08/12/21 04:38 08/12/21 04:38 - Additional Planning My Orders: My Active Orders 08/13/21 05:00 BMP - BASIC METABOLIC PANEL [CHEM] DAILYLAB BNP - B-NATRIURETIC PEPTIDE [IAI] DAILYLAB CBC - COMP BLD CT W/AUTO DIFF [HEME] DAILYLAB 08/13/21 09:00 Furosemide [Lasix] 40 mg PO DAILY 08/14/21 05:00 BMP - BASIC METABOLIC PANEL [CHEM] DAILYLAB BNP - B-NATRIURETIC PEPTIDE [IAI] DAILYLAB CBC - COMP BLD CT W/AUTO DIFF [HEME] DAILYLAB Subjective - Subjective Patient Reports: Other (No new complains) Objective Vital Signs: Vital Signs - 24 hr 08/11/21 08/11/21 08/11/21 13:58 15:45 23:24 Temperature 36.5 C 36.8 C 37.0 C Heart Rate [ 65 63 Brachial] Heart Rate [ 86 Monitoring electrodes] Respiratory 16 18 16 Rate Blood Pressure 104/68 94/65 100/70 [Right Brachial artery] O2 Saturation 98 97 95 08/12/21 08/12/21 08/12/21 05:06 05:13 07:30 Temperature 36.6 C 36.6 C Heart Rate [ 62 Brachial] Heart Rate [ 67 Monitoring electrodes] Respiratory 16 18 Rate Blood Pressure 94/66 101/70 114/75 [Right Brachial artery] O2 Saturation 93 95 Oxygen O2 Source Room air I&O (Last 24 Hrs): Intake and Output Totals x24h 08/10/21 08/11/21 08/12/21 23:59 23:59 23:59 Intake Total 1060 880 240 Balance 1060 880 240 Comments/Notes: General: Alert, Oriented x3, No distress HEENT: PERRLA, EOMI Neck: Supple, No JVD Neuro: Alert, Non Focal, Oriented Times 3 Cardiovascular: Regular rate, No murmurs Respiratory: Chest non-tender, No respiratory distress, Other (Coarse breath sounds) Abdomen: Normal bowel sounds, Soft, No tenderness, No masses Extremities: Other (1+ edema, dusky appearing lower extremities improved) - Results Results: Laboratory Results WBC 8.2 x10^3/uL (4.8-10.8) 08/12/21 04:38 RBC 4.99 10^6/uL (4.70-6.10) 08/12/21 04:38 Hgb 15.3 g/dL (14.0-18.0) 08/12/21 04:38 Hct 46.7 % (42.0-52.0) 08/12/21 04:38 MCV 93.6 fL (80.0-94.0) 08/12/21 04:38 MCH 30.7 pg (27.0-31.0) 08/12/21 04:38 MCHC 32.8 g/dL (32.0-36.0) 08/12/21 04:38 RDW 16.8 % (12.0-15.0) H 08/12/21 04:38 Plt Count 256 10^3/uL (130-450) 08/12/21 04:38 MPV 10.8 fL (7.4-11.4) 08/12/21 04:38 Neut # (Auto) 5.4 10^3/uL (1.5-6.6) 08/12/21 04:38 Lymph # (Auto) 1.6 10^3/uL (1.5-3.5) 08/12/21 04:38 [place] # (Auto) 0.9 10^3/uL (0.0-1.0) 08/12/21 04:38 Eos # (Auto) 0.1 10^3/uL (0.0-0.7) 08/12/21 04:38 Baso # (Auto) 0.1 10^3/uL (0.0-0.1) 08/12/21 04:38 Absolute Nucleated RBC 0.00 x10^3/uL 08/12/21 04:38 Nucleated RBC % 0.0 /100WBC 08/12/21 04:38 PT 13.2 secs (9.9-12.6) H 08/02/21 16:19 INR 1.2 (0.8-1.2) 08/02/21 16:19 Sodium 136 mmol/L (135-145) 08/12/21 04:38 Potassium 4.5 mmol/L (3.5-5.0) 08/12/21 04:38 Chloride 91 mmol/L (101-111) L 08/12/21 04:38 Carbon Dioxide 34 mmol/L (21-32) H 08/12/21 04:38 Anion Gap 11.0 (6-13) 08/12/21 04:38 BUN 29 mg/dL (6-20) H 08/12/21 04:38 Creatinine 1.4 mg/dL (0.6-1.2) H 08/12/21 04:38 Estimated GFR (MDRD) 52 (>89) L 08/12/21 04:38 Glucose 100 mg/dL (70-100) 08/12/21 04:38 POC Whole Bld Glucose 107 mg/dL (70 - 100) H 08/03/21 07:23 Calcium 9.6 mg/dL (8.5-10.3) 08/12/21 04:38 Phosphorus 3.6 mg/dL (2.5-4.6) 08/07/21 04:28 Magnesium 1.9 mg/dL (1.7-2.8) 08/06/21 04:40 Total Bilirubin 0.8 mg/dL (0.2-1.0) 08/04/21 05:01 AST 19 IU/L (10-42) 08/04/21 05:01 ALT 10 IU/L (10-60) 08/04/21 05:01 Alkaline Phosphatase 50 IU/L (42-121) 08/04/21 05:01 Troponin I High Sens 109.2 ng/L (2.3-19.7) H* 08/04/21 05:01 B-Natriuretic Peptide 1957 pg/mL (5-100) H 08/12/21 04:38 Total Protein 5.9 g/dL (6.7-8.2) L 08/04/21 05:01 Albumin 3.4 g/dL (3.2-5.5) 08/07/21 04:28 Globulin 2.6 g/dL (2.1-4.2) 08/04/21 05:01 Albumin/Globulin Ratio 1.3 (1.0-2.2) 08/04/21 05:01 Lipase 47 U/L (22-51) 08/02/21 16:19 Last Dose Date UNK 08/02/21 18:59 Last Dose Time UNK 08/02/21 18:59 Digoxin 0.6 ng/mL 08/02/21 18:59 SARS-CoV-2 (PCR) NOT DETECTED 08/02/21 16:57 - Procedures Procedures: Procedures COLONOSCOPY (08/16/13) INSERTION OF INFUSION DEV INTO SUP VENA CAVA, PERC APPROACH (01/18/21) ABX Reporting Has patient been on IV antibiotics over the past 48 hours?: No
[2021-08-12] MEDS: ATORVASTATIN 40 MG TABLET PO SCH (21:33)
[2021-08-13] MEDS: HYDROcod/ACETAM 5/325 MG TABLET PO PRN ×2 (00:32→11:19)
[2021-08-13] MEDS: SODIUM CHLORIDE FLUSH 0.9% 10 ML SYRINGE IVP SCH ×2 (00:33→11:22)
[2021-08-13 04:50] LABS: BASOPHILS # (AUTO) 0.1 10^3/uL (0.0-0.1); EOSINOPHILS # (AUTO) 0.2 10^3/uL (0.0-0.7); EOSINOPHILS % (AUTO) 1.9 %; HCT - HEMATOCRIT 45.9 % (42.0-52.0); HGB - HEMOGLOBIN 15.4 g/dL (14.0-18.0); LYMPHOCYTES # (AUTO) 1.8 10^3/uL (1.5-3.5); LYMPHOCYTES % (AUTO) 21.9 %; MEAN CORPUSCULAR HEMOGLOBIN 31.5 pg (27.0-31.0); MEAN CORPUSCULAR HGB CONC 33.6 g/dL (32.0-36.0); MEAN CORPUSCULAR VOLUME 93.9 fL (80.0-94.0); MEAN PLATELET VOLUME 10.5 fL (7.4-11.4); MONOCYTES % (AUTO) 12.6 %; PLT - PLATELET COUNT 253 10^3/uL (130-450); RED BLOOD COUNT 4.89 10^6/uL (4.70-6.10); RED CELL DISTRIBUTION WIDTH 16.4 % (12.0-15.0); WHITE BLOOD COUNT 8.1 x10^3/uL (4.8-10.8)
[2021-08-13 04:59] LABS: CALCIUM 9.4 mg/dL (8.5-10.3); CREATININE 1.3 mg/dL (0.6-1.2); POTASSIUM 4.2 mmol/L (3.5-5.0)
[2021-08-13] MEDS: metOLazone 2.5 MG TABLET PO SCH ×2 (06:02→14:00)
[2021-08-13] MEDS: PANTOPRAZOLE 40 MG TABLET PO SCH (06:05)
[2021-08-13] MEDS: MIDODRINE 2.5 MG TABLET PO SCH ×2 (06:11→11:19)
[2021-08-13] MEDS ORDERED: FUROSEMIDE 40 MG TABLET ONE (06:57)
--- NOTE | 2021-08-13 07:31 | DISCHARGE SUMMARY ---
Discharge Summary Admit Date: 08/02/21 Discharge Date: 08/13/21 Discharging Provider: London Rodríguez Code Status: Do Not Attempt Resuscitation Condition at Discharge: Stable Discharge Disposition: 01 Home, Self Care - DIAGNOSES Admission Diagnoses: Acute on chronic systolic and diastolic heart failure NYHA class IV Atrial flutter, chronic Acute kidney injury Elevated troponin Chronic ulcer of the leg Peripheral vascular disease COPD Alcoholism Discharge Diagnoses with Status of Each Condition: Acute on chronic systolic and diastolic heart failure NYHA class IV: Improved/ Stable Atrial flutter, chronic: Stable Acute kidney injury: Stable Elevated troponin: Acute. Resolved. Likely 2/2 CHF exacerbation Chronic ulcer of the leg: Wounds dressed. Patient referred to wound clinic several times but nonadherent Peripheral vascular disease: Chronic. Not a candidate for intervention due to medical noncompliance COPD: Stable Alcoholism: Chronic - HPI History of Present Illness: This is a 61-year-old male with a past medical history significant for chronic systolic heart failure with an ejection fraction of 15%, cor pulmonale, atrial flutter, alcoholism, peripheral vascular disease who presents today complaining of worsening shortness of breath and lower extremity edema. He states for the past couple weeks his lower extremity edema has progressed and now over the past week he became more short of breath. He went to the walk-in clinic today for follow-up and he was referred to the emergency department given concern for heart failure. The patient states he always feels short of breath due to his heart failure but his symptoms are now worse. His legs are much more edematous than usual. He now has orthopnea and a nonproductive cough. He states he does get occasional chest pain but this is more associated with anxiety he gets when he begins to feel short of breath. He currently denies any chest pain. He reports no fevers or chills. He does occasionally feel dizzy and lightheaded. He does take Lasix and he states the dose was increased to 60 mg about 1 week ago but he has not found much benefit with the increased dose. He does take other heart failure therapy including lisinopril, spironolactone, metoprolol. He states he is not on anticoagulation and he is not sure why. He was on Coumadin in the past. He also reports being hospitalized at [facility] in April for about 6 weeks due to a left lower extremity wound that required surgical debridement and wound VAC. He states he is currently not on any antibiotics. There has been occasional drainage from the wound but it is not foul-smelling and the wound has not progressed in size. He also reports having an ultrasound of his right leg about a week ago due to worsening right lower extremity edema compared to the left. There was no evidence of DVT to his knowledge. In the emergency department, he was not hypoxic but noted to be quite dyspneic and with significant lower extremity edema. He was given 80 mg of Lasix IV. Given the concern for acute on chronic heart failure, medicine was consulted for admission. We discussed goals of care and the patient confirms he is a DNR. - HOSPITAL COURSE Hospital Course: Patient was admitted on 08/02/2021 with shortness of breath. His BNP was 5200. He was admitted for CHF exacerbation. He has an ejection fraction of 15%. He was in the hospital for a total of 11 days during which time he was treated with Lasix IV, Metolazone, lisinopril, spironolactone, He required midodrine to maintain high enough blood pressure to continue diuresis. Midodrine and metolazone were discontinued upon discharge By the day of discharge patient's BNP was down to 1822. His creatinine was 1.3. He was also treated with Eliquis 5 mg p.o. twice daily given his history of atrial fibrillation. His Connor vas score was 4 thus he is at an increased risk of CVA. Eliquis was also prescribed upon discharge. Patient has history of peripheral vascular disease and has significant lower extremity ulcers that where treated and dressed per recommendations from [facility] [place] care staff. He has had several referrals for follow-up with wound care wh ich he has not done. By the day of discharge He was breathing comfortably on room air with oxygen sa turation between 92 and 99%. The rest of his hospital stay was fairly unremarkable. He was able to ambulate using his walker under the supervision of physical therapy. He was deemed not to be in need of any outpatient physical therapy. He is currently homeless and spends the nights at [facility]. He had a fairly extended hospital stay at his last admission. The day before he was to be discharged to live in an assisted living facility he declined that discharge plan because it would have left him with very little residual money once he paid the fee for his lodging. He opted to [facility] the homeless prison. - ALLERGIES Allergies/Adverse Reactions: Allergies Allergy/AdvReac Type Severity Reaction Status Date / Time No Known Drug Allergies Allergy Verified 08/02/21 15:28 - MEDICATIONS Home Medications: Ambulatory Orders Medication Instructions Recorded Confirmed Multivitamin [Theragran] 1 tab PO DAILYWM #30 tablet 03/05/21 08/03/21 Furosemide [Lasix] 60 mg PO DAILY 08/03/21 08/03/21 Gabapentin [Neurontin] 300 mg PO 0800,1400 08/03/21 08/03/21 Apixaban [Eliquis] 5 mg PO BID 30 Days #60 tablet 08/13/21 Canagliflozin [Invokana] 100 mg PO DAILY 30 Days #30 tab 08/13/21 Digoxin [Lanoxin] 125 mcg PO DAILY #30 tablet 08/13/21 Gabapentin [Neurontin] 600 mg PO QPM 60 Days #120 cap 08/13/21 Metoprolol Succinate [Toprol Xl] 50 mg PO DAILY 30 Days #30 tab 08/13/21 Spironolactone [Aldactone] 12.5 mg PO DAILY 30 Days #15 tab 08/13/21 lisinopriL [Zestril] 2.5 mg PO DAILY #30 tablet 08/13/21 - PHYSICAL EXAM AT DISCHARGE General Appearance: positive: No acute distress, Alert Eyes Bilateral: positive: PERRL, EOMI Neck: positive: No JVD, Trachea midline Respiratory: positive: Chest non-tender, No respiratory distress, Breath sounds nml. negative: Wheezes, Rales, Rhonchi Cardiovascular: positive: No murmur, Irregularly irregular Abdomen: positive: Non-tender, No organomegaly, Nml bowel sounds, No distention. negative: Guarding, Rebound Back: positive: Nml inspection Skin: positive: No rash, Other (dusky color of lower extremities (chronic), chronic leg ulcers noted) Extremities: positive: Other (+1 edema,) Neurologic/Psychiatric: positive: Oriented x3, Mood/affect nml - LABS Result Diagrams: 08/13/21 04:29 08/13/21 04:29 - TIME SPENT Time Spent in Discharge (Minutes): 20
--- NOTE | 2021-08-13 07:32 | Discharge Plan ---
Discharge Plan Problem Reviewed?: Yes Disposition: Home, Self Care Condition: Stable Prescriptions: Spironolactone [Aldactone] 12.5 mg PO DAILY 30 Days #15 tab Apixaban [Eliquis] 5 mg PO BID 30 Days #60 tablet Canagliflozin [Invokana] 100 mg PO DAILY 30 Days #30 tab Digoxin [Lanoxin] 125 mcg PO DAILY #30 tablet Gabapentin [Neurontin] 600 mg PO QPM 60 Days #120 cap Metoprolol Succinate [Toprol Xl] 50 mg PO DAILY 30 Days #30 tab lisinopriL [Zestril] 2.5 mg PO DAILY #30 tablet Diet: Cardiac Activity Restrictions: Activity as Tolerated Assistance Devices: Walker Weight Bearing: Full Weight Instruction Topics: ED Head Injury Closed Ch Health Concerns: Patient was admitted on 08/02/2021 with shortness of breath. His BNP was 5200. He was admitted for CHF exacerbation. He has an ejection fraction of 15%. He was in the hospital for a total of 11 days during which time he was treated with Lasix IV, Metolazone, lisinopril, spironolactone, He required midodrine to maintain high enough blood pressure to continue diuresis. Midodrine and metolazone were discontinued upon discharge By the day of discharge patient's BNP was down to 1822. His creatinine was 1.3. He was also treated with Eliquis 5 mg p.o. twice daily given his history of atrial fibrillation. His Connor vas score was 4 thus he is at an increased risk of CVA. Eliquis was also prescribed upon discharge. Patient has history of peripheral vascular disease and has significant lower extremity ulcers that where treated and dressed per recommendations from [facility] [place] staff. He has had several referrals for follow-up with wound care which he has not done. By the day of discharge He was breathing comfortably on room air with oxygen saturation between 92 and 99%. The rest of his hospital stay was fairly unremarkable. He was able to ambulate using his walker under the supervision of physical therapy. He was deemed not to be in need of any outpatient physical therapy. No Smoking: If you smoke, Please STOP! Call for help.
[2021-08-13] MEDS: MULTIVITAMIN W/MINERALS TABLET PO SCH (08:16)
[2021-08-13] MEDS: MAGNESIUM OXIDE 400 MG TABLET PO SCH ×2 (08:16→11:19)
[2021-08-13] MEDS: GABAPENTIN 300 MG CAPSULE PO SCH ×2 (08:16→14:01)
[2021-08-13] MEDS ORDERED: FUROSEMIDE 40 MG TABLET PO SCH (09:00)
[2021-08-13] MEDS: NICOTINE 14 MG PATCH TOP SCH (09:30)
[2021-08-13] MEDS: APIXABAN 5 MG TABLET PO SCH (09:40)
[2021-08-13] MEDS: THIAMINE 100 MG TABLET PO SCH (09:40)
[2021-08-13] MEDS: CITALOPRAM 10 MG TABLET PO SCH (09:40)
[2021-08-13] MEDS: lisinopriL 5 MG TABLET PO SCH (11:21)
[2021-08-13] MEDS: DIGOXIN 125 MCG TABLET PO SCH (11:21)
[2021-08-13] MEDS: METOPROLOL SUCCINATE 25 MG TABLET PO SCH (11:22)
[2021-08-13] MEDS: SPIRONOLACTONE 25 MG TABLET PO SCH (11:22)
[2021-08-13 12:52] VITALS: BP 117/90
== END 2021-08-13 14:11 | disposition home or self-care (01) | DRG 291 ==
LOC: EDUNIT# → ED 15:16 → MS2 19:15
PROVIDERS: ADMIT Internal Medicine; ATTEND Internal Medicine
DX: I11.0 Hypertensive heart disease with heart failure (principal); I50.43 Acute on chronic combined systolic (congestive) and diastolic (congestive) heart failure; I48.92 Unspecified atrial flutter; N17.9 Acute kidney failure, unspecified; L97.929 Non-pressure chronic ulcer of unspecified part of left lower leg with unspecified severity; I24.8 Other forms of acute ischemic heart disease; I47.2 Ventricular tachycardia; R77.8 Other specified abnormalities of plasma proteins; I73.9 Peripheral vascular disease, unspecified; F10.20 Alcohol dependence, uncomplicated; E78.00 Pure hypercholesterolemia, unspecified; I25.2 Old myocardial infarction; J43.9 Emphysema, unspecified; I25.10 Atherosclerotic heart disease of native coronary artery without angina pectoris; G62.9 Polyneuropathy, unspecified; K21.9 Gastro-esophageal reflux disease without esophagitis; N40.1 Benign prostatic hyperplasia with lower urinary tract symptoms; R35.0 Frequency of micturition; R35.1 Nocturia; F41.9 Anxiety disorder, unspecified; F32.A Depression, unspecified; G89.29 Other chronic pain; M54.9 Dorsalgia, unspecified; H54.7 Unspecified visual loss; F17.200 Nicotine dependence, unspecified, uncomplicated; I95.2 Hypotension due to drugs; T50.1X5A Adverse effect of loop [high-ceiling] diuretics, initial encounter; T44.7X5A Adverse effect of beta-adrenoreceptor antagonists, initial encounter; Y92.239 Unspecified place in hospital as the place of occurrence of the external cause; R00.1 Bradycardia, unspecified; I48.91 Unspecified atrial fibrillation; R79.0 Abnormal level of blood mineral; Z20.822 Contact with and (suspected) exposure to COVID-19; Z56.0 Unemployment, unspecified; Z59.01 Sheltered homelessness; Z66 Do not resuscitate; Z79.899 Other long term (current) drug therapy; Z82.49 Family history of ischemic heart disease and other diseases of the circulatory system; Z91.19 Patient's noncompliance with other medical treatment and regimen
CPT/HCPCS: 36415; 71045; 80048; 80053; 80069; 80162; 83690; 83735; 83880; 84484; 85025; 85610; 87635; 93005; 93922; 93925; 94640; 96374; 97110; 97116; 97162; 97530; 99283; 99285; A9270; J1170; 87150

== ENCOUNTER 2021-09-06 21:31 | Outpatient (CLI) | payer MEDICAID | END 2021-09-06 23:59 | disposition critical access hospital (66) | LOC: EMS 21:31 | DX: M79.89 Other specified soft tissue disorders (principal); M79.662 Pain in left lower leg; M79.661 Pain in right lower leg; S81.802A Unspecified open wound, left lower leg, initial encounter; S81.801A Unspecified open wound, right lower leg, initial encounter; X58.XXXA Exposure to other specified factors, initial encounter; Z59.00 Homelessness unspecified | CPT/HCPCS: A0425; A0429; A0999 ==

== ENCOUNTER 2021-09-06 21:51 | Emergency (ER) | payer MEDICAID ==
[2021-09-06 22:16] VITALS: BP 101/81
[2021-09-06] MEDS ORDERED: oxyCODONE 5 MG TABLET PO STA (22:21)
--- NOTE | 2021-09-06 22:40 | ED Physician Documentation ---
PD HPI LOWER EXT INJURY - Stated complaint Stated Complaint: OPEN WOUNDS - Chief complaint Chief Complaint: Ext Problem - History obtained from History obtained from: Patient - History of Present Illness PD HPI LOW EXT INJURY LOCATION: Both, Lower leg - Additional information Additional information: 61-year-old male with history of CHF, alcoholism, homelessness, presents for evaluation of bilateral lower extremity pain. Patient has chronic cellulitis and ulcers of his lower extremities. He has been treated for these, he has an appointment next week with wound care clinic. Patient states that his wounds are the same as always, however he is here today because his bilateral lower extremities are painful and make it impossible for him to walk. States he has not been on any antibiotics recently. Of note, patient was hospitalized last month for CHF exacerbation, these wounds were noted at that time. There are old margins drawn around the patient's wounds and they are within the margins. Nursing staff in our ER is familiar with the patient and they state that his legs appear unchanged from his baseline. Review of Systems Ten Systems: 10 systems reviewed and negative Constitutional: denies: Fever, Chills, Myalgias GI: denies: Abdominal Pain, Abdominal Swelling Skin: reports: Lesions (Chronic). denies: Rash Musculoskeletal: reports: Extremity pain. denies: Neck pain, Back pain, Joint pain PD PAST MEDICAL HISTORY - Past Medical History Cardiovascular: Congestive heart failure, Hypertension, High cholesterol, Peripheral Vascular Disease, [place], Atrial fibrillation, Arrhythmia, Valve disorder Respiratory: COPD, Emphysema, Shortness of breath Neuro: Head injury, Headaches, Peripheral neuropathy Endocrine/Autoimmune: None GI: GERD, Hepatitis SLEEVE SETTER: None : Benign prostate hypertrophy, Nocturia, Frequency HEENT: Chronic vision loss, Chronic sinusitis Psych: Depression, Anxiety Musculoskeletal: Chronic back pain Derm: None - Past Surgical History Past Surgical History: Yes HEENT: Tonsil/Adenoidectomy - Present Medications Home Medications: Ambulatory Orders Medication Instructions Recorded Confirmed Multivitamin [Theragran] 1 tab PO DAILYWM #30 tablet 03/05/21 08/03/21 Furosemide [Lasix] 60 mg PO DAILY 08/03/21 08/03/21 Gabapentin [Neurontin] 300 mg PO 0800,1400 08/03/21 08/03/21 Apixaban [Eliquis] 5 mg PO BID 30 Days #60 tablet 08/13/21 Canagliflozin [Invokana] 100 mg PO DAILY 30 Days #30 tab 07/05/22 Digoxin [Lanoxin] 125 mcg PO DAILY #30 tablet 08/13/21 Gabapentin [Neurontin] 600 mg PO QPM 60 Days #120 cap 08/13/21 Metoprolol Succinate [Toprol Xl] 50 mg PO DAILY 30 Days #30 tab 08/13/21 Spironolactone [Aldactone] 12.5 mg PO DAILY 30 Days #15 tab 08/13/21 lisinopriL [Zestril] 2.5 mg PO DAILY #30 tablet 08/13/21 Doxycycline Hyclate 100 mg PO BID #14 tab.sr 09/07/21 - Allergies Allergies/Adverse Reactions: Allergies Allergy/AdvReac Type Severity Reaction Status Date / Time No Known Drug Allergies Allergy Verified 08/02/21 15:28 - Social History Does the pt smoke?: Yes Smoking Status: Current every day smoker Does the pt drink ETOH?: Yes Does the pt have substance abuse?: Yes - Immunizations Immunizations are current?: Yes - POLST Patient has POLST: Yes POLST Status: DNR PD ED PE NORMAL - Vitals Vital signs reviewed: Yes - General General: Alert and oriented X 3, No acute distress, Other (Appears chronically unwell, older than stated age, hygiene poor) - HEENT HEENT: Atraumatic, PERRL, EOMI - Neck Neck: Supple, no meningeal sign, No adenopathy, C-Spine cleared by NEXUS criteria - Cardiac Cardiac: No murmur, Strong equal pulses, Other (tachycardia) - Respiratory Respiratory: No respiratory distress, Clear bilaterally - Abdomen Abdomen: Non tender - Back Back: No CVA TTP, No spinal TTP - Derm Derm: Warm and dry, Other (venous stasis ulcers with granulated tissue on bilateral inner legs) Results - Vitals Vitals: Vital Signs - 24 hr 09/06/21 09/07/21 22:12 03:01 Temperature 36.8 C 36.8 C Heart Rate 125 H 125 H Respiratory 18 18 Rate Blood Pressure 101/81 H 101/81 H O2 Saturation 98 98 Oxygen O2 Source Room air PD MEDICAL DECISION MAKING - ED course Complexity details: reviewed old records, reviewed results, re-evaluated patient ED course: Patient presenting for foot pain. Has chronic ulcers on lower extremities, these are at baseline per patient and per nursing staff familiar with patient. Old margins are drawn around wounds and they do not show that wounds have pro gressed. In addition patient has scheduled wound care appointment in less than 1 week. Patient states the only reason he can't walk is his feet hurt. Given dose of pain medications in department and discharged on antibiotics. Wounds wrapped in clean dressings. Departure - Departure Disposition: Home, Self Care Clinical Impression: Chronic ulcer of leg, Alcoholism, Homelessness, Leg wound, left Condition: Stable Instructions: ED Wound Care Prescriptions: Doxycycline Hyclate 100 mg PO BID #14 tab.sr Comments: You are being discharged on antibiotics. Take these antibiotics as prescribed until you have follow-up with the wound care clinic as previously scheduled. Elevate your feet when at rest. Discharge Date/Time: 09/07/21 03:00
[2021-09-06] MEDS ORDERED: BACITRACIN ZINC OINT 1 PACKET TOP STA (22:43)
[2021-09-07] MEDS ORDERED: cefTRIAXone 1 GM VIAL IM STA (00:09)
[2021-09-07] MEDS: LIDOCAINE 1% 2 ML VIAL MC ONE ×2 (00:50→01:10)
== END 2021-09-07 03:00 | disposition home or self-care (01) ==
LOC: EDUNIT# → ED 21:51
DX: L97.929 Non-pressure chronic ulcer of unspecified part of left lower leg with unspecified severity (principal); L97.919 Non-pressure chronic ulcer of unspecified part of right lower leg with unspecified severity; I11.0 Hypertensive heart disease with heart failure; I50.9 Heart failure, unspecified; I48.91 Unspecified atrial fibrillation; F17.200 Nicotine dependence, unspecified, uncomplicated; Z79.01 Long term (current) use of anticoagulants; Z59.00 Homelessness unspecified
CPT/HCPCS: 96372; 99282; 99283; A9270